=== PATIENT | female | born 1950 | race Caucasian/White ===

== ENCOUNTER → 2025-04-30 | Outpatient (REF) | payer MEDICARE, MEDICAID, SELFPAY ==
[2025-04-30 08:06] LABS: Hematocrit 29.5 % (37-47); Hemoglobin 9.5 g/dL (12.0-15.0); Mean Corp Hgb Conc 32.2 g/dL (32-36); Mean Corpuscular Volume 92.5 fL (81-99); Mean Platelet Vol. 9.6 fl (6.2-12.0); Platelet Count 245 K/mm3 (150-450); RBC Distribution Width CV 13.4 % (11.6-14.6); RBC Distribution Width SD 45.8 fl (35.1-43.9); Red Blood Count 3.19 M/mm3 (4.2-5.4); White Blood Count 6.4 K/mm3 (4.4-11.0)
[2025-04-30 08:45] LABS: AST(SGOT) 31 U/L (<=31); Alanine Aminotransfer ALT/SGPT 36 U/L (<=34); Albumin, Serum 3.2 g/dL (3.4-4.8); Alkaline Phosphatase 79 U/L (35-104); Anion Gap 9 (5-15); BUN 17 mg/dL (4-19); BUN/Creat Ratio 21.2 RATIO (10-20); Calcium,Total 9.0 mg/dL (7.6-11.0); Carbon Dioxide 24.2 mmol/L (21.0-32.0); Chloride 105 mmol/L (98-108); Globulin 2.5 g/dL (2.2-4.2); Glucose 90 mg/dL (70-99); Potassium 3.9 mmol/L (3.3-5.1)
== END ==
LOC: OLS.SANC 05:30
PROVIDERS: Visit Provider Internal Medicine
DX: J44.9 Chronic obstructive pulmonary disease, unspecified (principal); I10 Essential (primary) hypertension; E78.5 Hyperlipidemia, unspecified; E03.9 Hypothyroidism, unspecified
CPT/HCPCS: 36415; 80053; 84443; 85027

== ENCOUNTER → 2025-05-07 05:00 | Outpatient (REF) | payer MEDICARE, MEDICAID, SELFPAY ==
--- OUTSIDE RECORDS SUMMARY | 2025-05-07 04:28 | XMS RPT_ITS | CCD ---
Author Organization [facility] Care Team Providers Care Typewriter Aligner Name Role Phone ElbertRaffy Saleh Attending Unavailable Results Test Name Value Interpretation Reference Range Facil ity CBC-Complete Blood Cnt No Di ffon 04-30-2025 Erythrocyte distribution width (RBC) [Ratio] 13.4 % Normal 11.6-14.6 [facility] Comment on above: Order Comment: 310-1 Performed By: #### L 500.4050, L501.9520, L100.0500 #### [facility] [address] [place], [address] Hematocrit (Bld) [Volume fraction] 29.5 % Low 37-47 [facility] Comment on above: Order Comment: 310-1 Performed By: #### L 500.4050, L501.9520, L100.0500 #### [facility] [address] [place], [address] Hemoglobin (Bld) [Mass/Vol] 9.5 g/dL Low 12.0-15.0 [facility] Comment on above: Order Comment: 310-1 Performed By: #### L 500.4050, L501.9520, L100.0500 #### [facility] [address] [place], [address] MCH (RBC) [Entitic mass] 29.8 pg Normal 27.0-32.0 [facility] Comment on above: Order Comment: 310-1 Performed By: #### L 500.4050, L501.9520, L100.0500 #### [facility] [address] [place], [address] MCHC (RBC) [Mass/Vol] 32.2 g/dL Normal 32-36 [facility] Comment on above: Order Comment: 310-1 Performed By: #### L 500.4050, L501.9520, L100.0500 #### [facility] [address] [place], [address] MCV (RBC) [Entitic vol] 92.5 fL Normal 81-99 [facility] Comment on above: Order Comment: 310-1 Performed By: #### L 500.4050, L501.9520, L100.0500 #### [facility] [address] [place], [address] Platelet mean volume (Bld) [Entitic vol] 9.6 fL Normal 6.2-12.0 [facility] Comment on above: Order Comment: 310-1 Performed By: #### L 500.4050, L501.9520, L100.0500 #### [facility] [address] [place], [address] Platelets (Bld) [#/Vol] 245 10*3/uL Normal 150-450 [facility] Comment on above: Order Comment: 310-1 Performed By: #### L 500.4050, L501.9520, L100.0500 #### [facility] [address] [place], [address] RBC (Bld) [#/Vol] 3.19 10*6/uL Low 4.2-5.4 [facility] Comment on above: Order Comment: 310-1 Performed By: #### L 500.4050, L501.9520, L100.0500 #### [facility] [address] [place], [address] RDW SD 45.8 fl High 35.1-43.9 [facility] Comment on above: Order Comment: 310-1 Performed By: #### L 500.4050, L501.9520, L100.0500 #### [facility] [address] [place], [address] WBC (Bld) [#/Vol] 6.4 10*3/uL Normal 4.4-11.0 [facility] Comment on above: Order Comment: 310-1 Performed By: #### L 500.4050, L501.9520, L100.0500 #### [facility] [address] [place], [address] Comprehensive Metabolic Prof ilon 04-30-2025 Albumin [Mass/Vol] 3.2 g/dL Low 3.4-4.8 [facility] Comment on above: Order Comment: 310-1 Performed By: #### L 500.4050, L501.9520, L100.0500 #### [facility] [address] [place], [address] Albumin/Globulin [Mass ratio] 1.3 {ratio} Normal 0.9-2.4 [facility] Comment on above: Order Comment: 310-1 Performed By: #### L 500.4050, L501.9520, L100.0500 #### [facility] [address] [place], [address] ALK PHOS 79 U/L Normal 35-104 [facility] Comment on above: Order Comment: 310-1 Performed By: #### L 500.4050, L501.9520, L100.0500 #### [facility] [address] [place], [address] ALT [Catalytic activity/Vol] 36 U/L High <=34 [facility] Comment on above: Order Comment: 310-1 Performed By: #### L 500.4050, L501.9520, L100.0500 #### [facility] [address] [place], [address] AST [Catalytic activity/Vol] 31 U/L Normal <=31 [facility] Comment on above: Order Comment: 310-1 Performed By: #### L 500.4050, L501.9520, L100.0500 #### [facility] [address] [place], [address] Bilirubin [Mass/Vol] 0.68 mg/dL Normal 0.00-1.30 [facility] Comment on above: Order Comment: 310-1 Performed By: #### L 500.4050, L501.9520, L100.0500 #### [facility] [address] [place], [address] BUN/CRE 21.2 RATIO High 10-20 [facility] Comment on above: Order Comment: 310-1 Performed By: #### L 500.4050, L501.9520, L100.0500 #### [facility] [address] [place], [address] Calcium [Mass/Vol] 9.0 mg/dL Normal 7.6-11.0 [facility] Comment on above: Order Comment: 310-1 Performed By: #### L 500.4050, L501.9520, L100.0500 #### [facility] [address] [place], [address] Chloride [Moles/Vol] 105 mmol/L Normal 98-108 [facility] Comment on above: Order Comment: 310-1 Performed By: #### L 500.4050, L501.9520, L100.0500 #### [facility] [address] [place], [address] CO2 [Moles/Vol] 24.2 mmol/L Normal 21.0-32.0 [facility] Comment on above: Order Comment: 310-1 Performed By: #### L 500.4050, L501.9520, L100.0500 #### [facility] [address] [place], [address] Creatinine [Mass/Vol] 0.79 mg/dL Normal 0.70-1.20 [facility] Comment on above: Order Comment: 310-1 Performed By: #### L 500.4050, L501.9520, L100.0500 #### [facility] [address] [place], [address] GAP 9 Normal 5-15 [facility] Comment on above: Order Comment: 310-1 Performed By: #### L 500.4050, L501.9520, L100.0500 #### [facility] [address] [place], [address] GFR/1.73 sq M.predicted among non-blacks MDRD (S/P/Bld) [Vol rate/Area] 79 mL/min/{1.73_m2} Normal >60 [facility] Comment on above: Order Comment: 310-1 Result Comment: mL/m in/1.73m2 CKD-EPI Creatinine Equation (2020) Performed By: #### L 500.4050, L501.9520, L100.0500 #### [facility] [address] [place], [address] Globulin (S) [Mass/Vol] 2.5 g/dL Normal 2.2-4.2 [facility] Comment on above: Order Comment: 310-1 Performed By: #### L 500.4050, L501.9520, L100.0500 #### [facility] [address] [place], [address] Glucose [Mass/Vol] 90 mg/dL Normal 70-99 [facility] Comment on above: Order Comment: 310-1 Performed By: #### L 500.4050, L501.9520, L100.0500 #### [facility] [address] [place], [address] Potassium [Moles/Vol] 3.9 mmol/L Normal 3.3-5.1 [facility] Comment on above: Order Comment: 310-1 Performed By: #### L 500.4050, [id number], L100.0500 #### [facility] [address] [place], [address] Sodium [Moles/Vol] 138 mmol/L Normal 133-145 [facility] Comment on above: Order Comment: 310-1 Performed By: #### L 500.4050, L501.9520, L100.0500 #### [facility] [address] [place], [address] T PROT 5.7 g/dL Low 5.9-8.4 [facility] Comment on above: Order Comment: 310-1 Performed By: #### L 500.4050, L501.9520, L100.0500 #### [facility] [address] [place], [address] Urea nitrogen [Mass/Vol] 17 mg/dL Normal 4-19 [facility] Comment on above: Order Comment: 310-1 Performed By: #### L 500.4050, L501.9520, L100.0500 #### [facility] [address] [place], [address] Thyroid Stim Hormone (TSH)on 04-30-2025 TSH 4.650 uIU/mL High 0.300-4.200 [facility] Comment on above: Order Comment: 310-1 Performed By: #### L 500.4050, L501.9520, L100.0500 #### [facility] [address] [place], [address] Encounters Encounter Date Encounter Type Care Provider Facility Start: 04-30-2025 ambulatory [facility]ity:[facility] Payers Date Payer Category Payer Self-pay Summary Purpose Family History No Family History Records Found Advance Directives No Advanced Directives Records Found Additional Source Comments INFORMATION SOURCE (unrecogn ized section and content) DATE CREATED AUTHOR 05/01/2025 [facility] FOR RECORDS PERTAINING TO PATIENTS WHO ARE OR HAVE BEEN ENROLLED IN A CHEMICAL DEPENDENCY/SUBSTANCEABUSE PROGRAM, SOME INFORMATION MAY BE OMITTED. This clinical summary was aggregated from multiple sources. Caution should be exercised in using it in the provision of clinical care. This summary normalizes information from multiple sources, and as a consequence, information in this document may materially change the coding, format and clinical context of patient data. In addition, data may be omitted in some cases. CLINICAL DECISIONS SHOULD BE BASED ON THE PRIMARY CLINICAL RECORDS. [facility]. provides no warranty or guarantee of the accuracy or completeness of information in this document.
[2025-05-07 07:43] LABS: Hematocrit 31.5 % (37-47); Hemoglobin 10.1 g/dL (12.0-15.0); Mean Corp Hgb Conc 32.1 g/dL (32-36); Mean Corpuscular Volume 92.9 fL (81-99); Mean Platelet Vol. 9.4 fl (6.2-12.0); Platelet Count 271 K/mm3 (150-450); RBC Distribution Width CV 14.2 % (11.6-14.6); RBC Distribution Width SD 47.8 fl (35.1-43.9); Red Blood Count 3.39 M/mm3 (4.2-5.4); White Blood Count 5.9 K/mm3 (4.4-11.0)
[2025-05-07 08:15] LABS: Anion Gap 12 (5-15); BUN 15 mg/dL (4-19); BUN/Creat Ratio 17.5 RATIO (10-20); Calcium,Total 9.2 mg/dL (7.6-11.0); Carbon Dioxide 21.8 mmol/L (21.0-32.0); Chloride 106 mmol/L (98-108); Glucose 85 mg/dL (70-99); Potassium 4.1 mmol/L (3.3-5.1)
== END ==
LOC: OLS.SANC 05:00
PROVIDERS: Visit Provider Internal Medicine
DX: I10 Essential (primary) hypertension (principal)
CPT/HCPCS: 36415; 80048; 85027

== ENCOUNTER → 2025-06-19 05:00 | Outpatient (REF) | payer MEDICARE, MEDICAID, SELFPAY ==
[2025-06-19 09:34] LABS: Hematocrit 37.2 % (37-47); Hemoglobin 12.1 g/dL (12.0-15.0); Mean Corp Hgb Conc 32.5 g/dL (32-36); Mean Corpuscular Volume 90.1 fL (81-99); Mean Platelet Vol. 9.6 fl (6.2-12.0); Platelet Count 175 K/mm3 (150-450); RBC Distribution Width CV 13.8 % (11.6-14.6); RBC Distribution Width SD 45.3 fl (35.1-43.9); Red Blood Count 4.13 M/mm3 (4.2-5.4); White Blood Count 5.4 K/mm3 (4.4-11.0)
[2025-06-19 09:47] LABS: Anion Gap 9 (5-15); BUN 15 mg/dL (4-19); BUN/Creat Ratio 21.7 RATIO (10-20); Calcium,Total 9.0 mg/dL (7.6-11.0); Carbon Dioxide 23.8 mmol/L (21.0-32.0); Chloride 107 mmol/L (98-108); Glucose 87 mg/dL (70-99); Potassium 4.0 mmol/L (3.3-5.1)
== END ==
LOC: OLS.SANC 05:00
PROVIDERS: Visit Provider Internal Medicine
DX: N18.30 Chronic kidney disease, stage 3 unspecified (principal); I12.9 Hypertensive chronic kidney disease with stage 1 through stage 4 chronic kidney disease, or unspecified chronic kidney disease; E78.5 Hyperlipidemia, unspecified
CPT/HCPCS: 36415; 80048; 85027

== ENCOUNTER → 2025-07-28 05:00 | Outpatient (REF) | payer MEDICARE, MEDICAID, SELFPAY ==
--- OUTSIDE RECORDS SUMMARY | 2025-07-28 03:50 | XMS RPT_ITS | CCD ---
Author Organization [facility] Inform ion Partnership [facility] Care Team Providers Care Medical Receptionist Assistant Name Role Phone Kenia Mckenzie Primary Care Provider Farhana Schmitt MD, Alyce Unavailable Danny Laura MD Primary Care Provider Jono WATER SYSTEMS DESIGNER.HEAD USHER, Danny Siddiqui Unavailable Holly ALVES, Soco Luis E Unavailable Unavailable Farhana Schmitt MD, Alyce Unavailable Danny Laura MD Primary Care Provider Jono WATER SYSTEMS DESIGNER.HEAD USHER, Danny Chen Unavailable Jono WATER SYSTEMS DESIGNER.BEATA, Danny Chen Unavailable Johnny Amaya Primary Care Provider Farhana Schmitt MD Alyce Unavailable Jono WATER SYSTEMS DESIGNER.BEATA, Danny Chen Unavailable Johnny Amaya Primary Care Provider Kenia Mckenzie MD Primary Care Provider Kenia Mckenzie MD Primary Care Provider Farhana Schmitt MD, Alyce Unavailable Ashu Ricci Primary Care Provider Unavailable Primary Care Provider UnavailAshu Falcon CNP Primary Care Provider Delfina LAZAR, Michell Unavailable Unspecified, Cardiac Surgeon - Unavailable U kian Zelaya MD, Jorge Saldaña Unavailable Keiry WATER SYSTEMS DESIGNER.HEAD USHER, Ashu Primary Care Provider Murphy LAZAR Kendy Unavailable Matt LYCNH, Sandra Unavailable [phone] DELFINA, XIAOYING Referring Unavailable KEIRY, ASHU Primary Care Unavailable KEIRY, ASHU Primary Care Unavailable DELFINA, XIAOYING Referring Unavailable KEIRY, ASHU Primary Care Unavailable DELFINA, XIAOYING Attending Unavailable DELFINA, XIAOYING Referring Unavailable KEIRY, ASHU Primary Care Unavailable DELFINA, XIAOYING Referring Unavailable KEIRY, ASHU Primary Care Unavailable DELFINA, XIAOYING Referring Unavailable DELFINA, XIAOYING Referring Unavailable JORGE ZEALYA Attending Unavailable KEIRY, ASHU Primary Care Unavailable DELFINA, XIAOYING Referring Unavailable KEIRY, ASHU Primary Care Unavailable DELFINA, XIAOYING Referring Unavailable KEIRY, ASHU Primary Care Unavailable ARELY HERCULES Attending Unavailable KEIRY, ASHU Primary Care Unavailable ARELY HERCULES Attending Unavailable KEIRY, ASHU Primary Care Unavailable DELFINA, XIAOYING Attending Unavailable DELFINA, XIAOYING Referring Unavailable KEIRY, ASHU Primary Care Unavailable DRAKE, STACY Attending Unavailable DRAKE, STACY Referring Unavailable NIKO CAUSEY Consulting Unavailab JACEK Darby Admitting Unavailable LATOYA POLANCO Attending Unavailable CRYSTAL MARIE Consulting Unavailable Raffy Eason Attending Physician UnavailRaffy Acosta Attending Unavailable Raffy Eason Attending Unavailable Raffy Eason Attending Unavailable Allergies Allergy Classification Reported Allergen(s) Allergy Type Date of Onset Reaction(s) Facility cow milk allergenic extract (1 source) cow milk allergenic extract Drug Allergy 2 Other: See Comments [facility] Sulfonamides (antibiotic) (2 sources) Sulfonamides (Antibiotic) Drug Allergy 8 Itching, Swelling [facility] (20 sources) Seasonal allergy; Translations: [SEASONAL ALLERGIES] Allergy to substance 8 Intolerance [facility] (20 sources) Sulfonamides (Antibiotic); Translations: [SULFA (SULFONAMIDE ANTIBIOTICS)] Drug Allergy 8 Itching [facility] (20 sources) sulfADIAZINE; Translations: [SULFADIAZINE] Drug Allergy 0 Swelling, Other: See Comments [facility] (20 sources) Sulfonamides (Antibiotic) Drug Allergy 8 Itching, Swelling [facility] (18 sources) Cow milk Propensity to adverse reactions [address] [facility] (15 sources) cow milk allergenic extract; Translations: [MILK] Drug Allergy 2 Other: See Comments [facility] Medications Current Medications Medication Drug Class(es) Dates Sig (Normalized) Sig (Original) acetaminophen 325 mg oral tablet (20 sources) Start: 04-23-2025 End: 05-03-2025 take 2 tablets by mouth every six hours as needed for pain and fever acetaminophen (Tylenol) 325 MG tablet Take 2 tablets (650 mg) by mouth every 6 hours as needed for mild pain (1-3) or fever (For temp greater than 100.4 F (38 C)) for up to 10 days. 04/23/2025 05/03/2025 Active Start: 04-20-2025 End: 04-23-2025 take 1 tablet by mouth every six hours as needed for pain and fever acetaminophen (Tylenol) tablet 650 mg Start: 04-19-2025 End: 04-19-2025 1,000 mg, Oral, Once, On 04/19/25 at 1600, For 1 dose, Maximum dose of acetaminophen is 4000 mg from all sources in 24 hours. Start: 08-17-2023 End: 03-21-2024 acetaminophen (TYLENOL) 325 mg tablet Start: 03-02-2023 End: 03-10-2023 take 1 tablet by mouth every six hours 650 mg, Oral, Every 6 hours, First dose on Buffy 03/02/23 at 1545, Phase II/On Unit Start: 03-02-2023 End: 03-02-2023 acetaminophen (Tylenol) tabl et 1,000 mg Start: 03-18-2020 take 1 tablet by kiki th every twelve hours as needed acetaminophen (TYLENOL) 500 mg tablet Take 1 tablet by mouth twice daily as needed for Pain. Please put in a separate bottle thanks 10 tablet 0 03/18/2020 Active Comment on above: Take 1 tablet by kiki th twice daily as needed for Pain. Please put in a separate bottle thanks amoxicillin 875 mg / clavulanate 125 mg oral tablet (4 sources) Penicillin-class Antibacterial Start: 024 End: take 1 tablet by mouth every twelve hours amoxicillin-clavulanat e (Augmentin) 875-125 MG tablet Take 1 tablet by mouth in the morning and 1 tablet in the evening. Do all this for 7 days. 14 tablet 0 12/17/2023 12/24/2023 Active cephalexin 500 mg oral capsule (4 sources) Cephalosporin Antibacterial Start: 023 End: cephalexin (Keflex) 500 MG capsule Take 1 capsule (500 mg) by mouth in the morning and 1 capsule (500 mg) at noon and 1 capsule (500 mg) in the evening and 1 capsule (500 mg) before bedtime. Do all this for 7 days. 28 capsule 0 05/25/2023 06/01/2023 Active cholecalciferol 0.05 mg oral tablet (20 sources) Vitamin D Start: take 1 tablet by mouth once daily cholecalciferol (VITAMIN D3) 50 mcg (2,000 unit) tablet Take 2,000 Units by mouth once daily. 08/28/2023 Active take 1 tablet by mouth once ramiro y cholecalciferol (Vitamin D-3) 125 MCG (5000 UT) tablet Take 2,000 Units by mouth daily. Active take 1 tablet by mouth once ramiro y cholecalciferol (Vitamin D-3) 125 MCG (5000 UT) tablet Take 5,000 Units by mouth daily. 0 Active 12 hr dextromethorphan polistirex 6 mg/ml extended release suspension (15 sources) Uncompetitive G-orrovg-G-aspartate Receptor Antagonist, Sigma-1 Agonist Start: 08-24-2023 DELSYM 30 mg/5 mL oral liquid Take 30 mg by mouth as needed. 08/24/2023 Active Start: 08-24-2023 DELSYM 30 mg/5 mL oral liquid 0.4 ml enoxaparin sodium 100 mg/ml prefilled syringe (6 sources) Low Molecular Weight Heparin Start: 04-24-2025 End: 05-15-2025 inject 0.4 mL by subcutaneous injection every twenty-four hours enoxaparin (Lovenox) 40 MG/0.4ML solution prefilled syringe Indications: Prophylaxis of Venous Thromboembolism Inject 0.4 mL (40 mg) under the skin every 24 hours for 21 doses. 04/24/2025 05/15/2025 Active Start: 04-22-2025 End: 04-23-2025 inject 40 mg by subcutaneous injection every twenty-four hours 40 mg, SubCUTAneous, Every 24 hours scheduled (Daily), First dose on Mon04/22/25 at 1215, For 28 doses, Indication of Use: Post Op Hip, Indications: Prophylaxis of Venous Thromboembolism Start: 03-05-2023 End: 03-10-2023 enoxaparin (Lovenox) syringe 40 mg famotidine 20 mg oral tablet (20 sources) Histamine-2 Receptor Antagonist Start: 06-08-2023 famotidine (PEPCID) 20 mg tablet Take 20 mg by mouth as needed. 06/08/2023 Active Start: 03-02-2023 End: 03-02-2023 famotidine (Pepcid) tablet 2 0 mg 30 actuat fluticasone furoate 0.1 mg/actuat / vilanterol 0.025 mg/actuat dry powder inhaler (20 sources) Corticosteroid, beta2-Adrenergic Agonist Start: 11-05-2022 take 1 puff(s) by inhalation once daily Breo Ellipta 100-25 MCG/ACT aerosol powder Inhale 1 puff daily. 11/05/2022 Active Start: 11-05-2022 Breo Ellipta 1 00-25 MCG/ACT aerosol powder Start: 03-17-2022 take 1 puff(s) by mo uth once daily fluticasone-vilanterol (BREO ELLIPTA) 100-25 mcg/dose inhaler Indications: Shortness of breath Inhale 1 puff BY MOUTH INTO THE LUNGS EVERY DAY 28 Each 3 03/17/2022 Active Start: 12-03-2021 End: 03-17-2022 take 1 puff(s) by mouth once daily BREO ELLIPTA 100-25 mcg/dose inhaler Indications: Shortness of breath INHALE ONE PUFF BY MOUTH EVERY DAY 60 Each 3 12/03/2021 03/17/2022 Discontinued Start: 11-02-2021 End: 12-03-2021 fluticasone-vilanterol (BREO ELLIPTA) 100-25 mcg/dose inhaler Indications: Shortness of breath Inhale 1 Inhalation as instructed once daily. 60 Each 0 11/02/2021 12/03/2021 Discontinued Start: 08-13-2019 fluticasone-vi lanterol (BREO ELLIPTA) 100-25 mcg/dose inhaler Inhale 1 Inhalation as instructed once daily. 60 Each 0 08/13/2019 Active Comment on above: Inhale 1 Inhalation as instructed once daily. INHALE ONE PUFF BY M OUTH EVERY DAY Inhale 1 puff BY KIKI TH INTO THE LUNGS EVERY DAY 12 hr guaiFENesin 600 mg extended release oral tablet (15 sources) Start: 08-24-2023 take 1 tablet by mouth once daily as needed MUCINEX 600 mg 12 hr tablet Take 600 mg by mouth once daily. As needed 08/24/2023 Active Start: 08-24-2023 MUCINEX 600 mg 12 hr tablet HIGH POTENCY MULTIVITAMIN 400 mcg (15 sources) Start: 09-11-2023 take 1 tablet by mouth once daily HIGH POTENCY MULTIVITAMIN 400 mcg Take 1 tablet by mouth once daily. 09/11/2023 Active Start: 09-11-2023 take 1 tablet by kiki th once daily HIGH POTENCY MULTIVITAMIN 400 mcg Take 1 tablet by mouth once daily. 0 09/11/2023 Active Start: 09-11-2023 HIGH POTENCY M ULTIVITAMIN 400 mcg iv contrast (will be provided with radiology test) (1 source) Start: 03-21-2024 End: 03-22-2024 inject 1 dose intravenously once iv contrast (will be provided with radiology test) CTA Chest. No IV access, insert saline lock prior to the sedation, infusion, injection for imaging exam. Discontinue saline lock post exam. If Pt. has a central line or IVAD, may access for administration according to line specific nursing protocol. Once exam is complete flush line and de-access according to line specific nursing protocol in the CT contrast administration guidelines link. 1 Each 0 03/21/2024 03/22/2024 Active loratadine 10 mg oral tablet (20 sources) Start: 10-01-2023 take 1 tablet by kiki th once daily loratadine (CLARITIN) 10 mg tablet Take 10 mg by mouth once daily. 10/01/2023 Active take 1 capsule by mouth once milan ly Loratadine 10 MG capsule Take 10 mg by mouth daily. Active take 1 tablet by mouth once ramiro y loratadine (CLARITIN ORAL) Take 1 tablet by mouth once daily. 0 Active loratadine (CLAR ITIN ORAL) Take by mouth. 0 Active Comment on above: Take by mouth. Take 1 tablet by kiki th once daily. 24 hr loratadine 10 mg / pseudoephedrine sulfate 240 mg extended release oral tablet (5 sources) alpha-Adrenergic Agonist take 10-240 mg by mouth every twenty-four hours loratadine-pseudo ephedrine ER (Claritin-D 24-hour) 10-240 MG 24 hr tablet Take 1 tablet by mouth daily. Do not crush, chew, or split. 0 Active Multiple Vitamin (High Potency Multivitamin) tablet (20 sources) Start: 09-27-2022 take 1 tablet by mouth once daily Multiple Vitamin (High Potency Multivitamin) tablet Take 1 tablet by mouth daily. 09/27/2022 Active Start: 09-27-2022 take 1 tablet by kiki th once daily Multiple Vitamin (High Potency Multivitamin) tablet Take 1 tablet by mouth daily. 0 09/27/2022 Active Start: 09-27-2022 Multiple Vitam in (High Potency Multivitamin) tablet nystatin 100 unt/mg topical powder (20 sources) Polyene Antifungal Start: 08-22-2023 nystatin (M YCOSTATIN) powder Apply to affected area as needed. 08/22/2023 Active Start: 08-22-2023 nystatin (MYCO STATIN) powder Start: 03-02-2023 End: 03-10-2023 apply 1 dose topically twice daily Topical, 2 times daily, First dose on Buffy 03/02/23 at 2100, Phase II/On Unit nystatin (Mycost atin) [id number] UNIT/GM powder Apply 1 Application topically 2 times daily. Under breasts Active omeprazole 20 mg delayed release oral tablet (20 sources) Proton Pump Inhibitor Start: 04-26-2023 Omeprazole 20 MG tablet delayed-release 04/26/2023 Active oxyCODONE hydrochloride 5 mg oral tablet (8 sources) Opioid Agonist Start: 04-19-2025 End: 04-26-2025 take 1 tablet by mouth every six hours as needed for pain oxyCODONE (Roxicodone) 5 MG immediate release tablet Indications: Closed displaced intertrochanteric fracture of right femur, initial encounter ([facility]) Take 1 tablet (5 mg) by mouth every 6 hours as needed for moderate pain (4-6) or severe pain (7-10) for up to 3 days. 12 tablet 04/23/2025 04/26/2025 Active Start: 03-06-2023 End: 03-09-2023 take 1 tablet by mouth every four hours as needed for pain oxyCODONE (Roxicodone) 5 MG immediate release tablet Indications: Cervical stenosis of spinal canal Take 1 tablet (5 mg) by mouth every 4 hours as needed for moderate pain (4-6) for up to 5 days. 15 tablet 0 03/06/2023 03/09/2023 Discontinued (Stop taking at discharge) Start: 03-02-2023 End: 03-10-2023 take 1 tablet by mouth every four hours as needed for pain oxyCODONE (Roxicodone) immediate release tablet 5 mg 0.25 ml paliperidone palmitate 156 mg/ml prefilled syringe (20 sources) Atypical Antipsychotic Start: 09-23-2022 Invega Sustenna 39 MG/0.25ML suspension prefilled syringe Inject 39 mg into the shoulder, thigh, or buttocks every 30 (thirty) days. 09/23/2022 Active Start: 09-23-2022 Invega Sustenn a 39 MG/0.25ML suspension prefilled syringe Start: 01-06-2022 End: 04-11-2022 paliperidone palmitate (INVE GA SUSTENNA) 39 mg/0.25 mL syrg injection INJECT 0.25 ML into THE MUSCLE EVERY FOUR WEEKS 0.25 mL 1 04/11/2022 Active Start: 01-06-2022 End: 02-15-2022 paliperidone palmitate (INVE GA SUSTENNA) 78 mg/0.5 mL syrg injection Stop this dose 0.1 mL 0 01/06/2022 02/15/2022 Discontinued Start: 11-04-2021 End: 01-06-2022 paliperidone palmitate (INVE GA SUSTENNA) 78 mg/0.5 mL syrg injection INJECT 78 MG IN 0.5 mls every FOUR WEEKS 0.5 mL 2 11/04/2021 01/06/2022 Discontinued Start: 07-17-2020 End: 08-16-2020 paliperidone palmitate (INVE GA SUSTENNA) 78 mg/0.5 mL syrg Inject 0.5 mL intramuscularly every 4 weeks. Due First week of August 15 to 08/07 2020 Thanks 0.5 mL 1 07/17/2020 08/16/2020 Active Start: 03-31-2020 End: 06-21-2020 paliperidone palmitate (INVE GA SUSTENNA) 78 mg/0.5 mL syrg Inject 0.5 mL intramuscularly every 4 weeks. Due 02/03/20 0.5 mL 0 05/22/2020 Active Comment on above: Inject 0.5 mL intram uscularly every 4 weeks. Due 02/03/20 Inject 0.5 mL intram uscularly every 4 weeks. Due First week of August 15 to 08/07 2020 Thanks INJECT 78 MG IN 0.5 mls every FOUR WEEKS 1 injection every 4 weeks Stop this dose INJECT 0.25 ML into THE MUSCLE EVERY FOUR WEEKS polyethylene glycol 3350 12629 mg powder for oral solution (6 sources) Osmotic Laxative Start: 04-20-20 End: 04-28-20 take 17 g by mouth every twenty-four hours as needed polyethylene glycol, PEG, 3350 (Miralax) 17 g packet Take 17 g by mouth Daily as needed (constipation) for up to 5 days. 04/23/2025 04/28/2025 Active Start: 03-02-2023 End: 03-10-2023 17 g, Oral, Daily, First dos e on Buffy 03/02/23 at 1545, Phase II/On Unit Bowel Regimen - for prevention of constipation. Completed/Discontinued Medications Medication Drug Class(es) Dates Sig (Normalized) Sig (Original) [id number] 200 actuat albuterol 0.09 mg/actuat metered dose inhaler (20 sources) beta2-Adrenergic Agonist Start: 03-02-2023 End: 03-10-2023 take 2 puff(s) by inhalation every four hours as needed for wheezing 2 puff, Inhalation, Every 4 hours PRN, wheezing, Starting on Buffy 03/02/23 at 1544, Phase II/On Unit Start: 02-22-2022 take 2 puff(s) by mo uth every four hours as needed for wheezing albuterol 108 (90 Base) MCG/ACT inhaler INHALE TWO PUFFS BY MOUTH INTO THE LUNGS instructed EVERY 4 HOURS NEEDED FOR WHEEZING OR FOR SHORTNESS OF BREATH 02/22/2022 Active Start: 02-10-2022 take 2 puff(s) by mo uth every four hours as needed for wheezing albuterol HFA (PROVENTIL HFA, VENTOLIN HFA) 90 mcg/actuation inhaler Indications: Mild intermittent asthma without complication (HCC) INHALE TWO PUFFS BY MOUTH INTO THE LUNGS instructed EVERY 4 HOURS NEEDED FOR WHEEZING OR FOR SHORTNESS OF BREATH 18 g 3 02/10/2022 Active Start: 11-11-2021 End: 02-10-2022 take 2 puff(s) by inhalation every four hours as needed for wheezing albuterol HFA (PROAIR HFA) 90 mcg/actuation inhaler Indications: Mild intermittent asthma without complication Inhale 2 Puffs as instructed every 4 hours as needed for wheezing/shortness of breath. 2 Inhaler 3 11/11/2021 02/10/2022 Discontinued Start: 08-12-2019 take 2 puff(s) by in halation every four hours as needed for wheezing albuterol HFA (VENTOLIN HFA) 90 mcg/actuation inhaler Inhale 2 Puffs as instructed every 4 hours as needed for Wheezing/Shortness of Breath. 2 Inhaler 0 08/12/2019 Active Comment on above: Inhale 2 Puffs as in structed every 4 hours as needed for Wheezing/Shortness of Breath. INHALE TWO PUFFS BY MOUTH INTO THE LUNGS instructed EVERY 4 HOURS NEEDED FOR WHEEZING OR FOR SHORTNESS OF BREATH albuterol 0.833 mg/ml / ipratropium bromide 0.167 mg/ml inhalation solution (2 sources) Anticholinergic, beta2-Adrenergic Agonist Start: 04-21-20 End: 04-21-20 3 mL, Nebulization, Once, On Mon04/21/25 at 1545, For 1 dose, Recovery (only) amLODIPine 2.5 mg oral tablet (20 sources) Dihydropyridine Calcium Channel Elena Start: 02-28-20 take 1 tablet by mouth once daily amLODIPine (NORVASC) 5 mg tablet Take 5 mg by mouth once daily. 02/28/2024 Active Start: 03-08-2023 End: 03-10-2023 amLODIPine (Norvasc) tablet 10 mg Start: 03-07-2023 End: 03-07-2023 amLODIPine (Norvasc) tablet 5 mg Start: 03-07-2023 End: 03-07-2023 amLODIPine (Norvasc) tablet 5 mg Start: 03-02-2023 End: 03-06-2023 take 2.5 mg by mouth once daily 2.5 mg, Oral, Daily, F irst dose on Buffy 03/02/23 at 1545, Phase II/On Unit Start: 10-31-2021 End: 04-23-2025 take 1 tablet by mouth once daily amLODIPine (Norvasc) 2.5 MG tablet Take 2.5 mg by mouth daily. 09/27/2022 Active Start: 09-09-2019 take 1 tablet by kiki th once daily amLODIPine (NORVASC) 5 mg tablet Take 1 tablet by mouth once daily. 30 tablet 2 09/09/2019 Active Comment on above: Take 1 tablet by kiki th once daily. TAKE ONE TABLET BY M OUTH EVERY DAY ARIPiprazole 5 mg oral tablet (20 sources) Atypical Antipsychotic Start: 03-02-2023 End: 03-10-2023 take 5 mg by mouth once daily 5 mg, Oral, Daily, First dose on Buffy 03/02/23 at 1545, Phase II/On Unit Start: 11-03-2022 End: 04-23-2025 take 1 tablet by mouth once daily ARIPiprazole (Abilify) 5 MG tablet Take 5 mg by mouth daily. 11/03/2022 Active Start: 10-08-2021 End: 04-11-2022 take 1 tablet by mouth once daily ARIPiprazole (ABILIFY) 5 mg tablet Take 1 tablet by mouth once daily. 30 tablet 2 04/11/2022 Active Start: 04-30-2020 take 1 tablet by kiki th once daily ARIPiprazole (ABILIFY) 5 mg tablet Take 1 tablet by mouth once daily. 30 tablet 2 04/30/2020 Active Start: 03-31-2020 End: 04-30-2020 take 1 tablet by mouth once daily ARIPiprazole (ABILIFY) 2 mg tablet Take 1 tablet by mouth once daily. 30 tablet 1 03/31/2020 04/30/2020 Discontinued Comment on above: Take 1 tablet by kiki th once daily. TAKE ONE TABLET BY M OUTH EVERY DAY Aspirin (14 sources) Platelet Aggregation Inhibitor, Nonsteroidal Anti-inflammatory Drug aspirin (ASPIR-81 OR AL) Take by mouth. 0 Active take 1 tablet by mouth once ramiro y aspirin (ASPIRIN CHILDRENS) 81 mg chewable tablet Take 81 mg by mouth once daily. 0 Active Comment on above: Take 81 mg by mouth once daily. Take by mouth. barium sulfate (E-Z-Paque) 96 % suspension 30 mL (2 sources) Start: 05-31-20 End: 05-31-20 barium sulfate (E-Z-Paque) 96 % suspension 30 mL bisacodyl 10 mg rectal suppository (4 sources) Stimulant Laxative Start: 03-02-20 End: 03-10-20 take 10 mg rectal route every twenty-four hours as needed for constipation 10 mg, Rectal, Daily PRN, constipation, Starting on Buffy 03/02/23 at 1544, Phase II/On Unit 2nd line for treatment of constipation - give scheduled (in addition to 1st line agent) if no bowel movement in past 48 hours Start: 03-02-2023 End: 03-10-2023 take 1 tablet by mouth every twenty-four hours as needed for constipation 5 mg, Oral, Daily PRN, constipation, Starting on Buffy 03/02/23 at 1544, Phase II/On Unit 1st line for treatment of constipation - give scheduled if no bowel movement in past 24 hours. Do not crush, chew, or split. 24 hr buPROPion hydrochloride 300 mg extended release oral tablet (20 sources) Aminoketone Start: 03-02-2023 End: 03-10-2023 take 150 mg by mouth once daily 150 mg, Oral, Daily, First dose on Buffy 03/02/23 at 1545, Phase II/On Unit Do not crush, chew, or split. Start: 11-03-2022 End: 04-23-2025 take 1 tablet by mouth once daily buPROPion XL (Wellbutrin XL) 300 MG 24 hr tablet Take 300 mg by mouth daily. 11/03/2022 Active Start: 11-03-2022 buPROPion XL ( Wellbutrin XL) 300 MG 24 hr tablet Start: 11-02-2021 End: 07-10-2022 take 1 tablet by mouth once daily buPROPion XL (WELLBUTRIN XL) 300 mg 24 hr tablet Indications: Bipolar 1 disorder, depressed, moderate (HCC) Take 1 tablet by mouth once daily. 30 tablet 2 04/11/2022 Active Start: 07-17-2020 End: 08-16-2020 take 1 tablet by mouth once daily buPROPion XL (WELLBUTRIN XL) 300 mg 24 hr tablet Take 1 tablet by mouth once daily. 30 tablet 1 07/17/2020 08/16/2020 Active Start: 03-31-2020 End: 05-30-2020 take 1 tablet by mouth once daily buPROPion XL (WELLBUTRIN XL) 300 mg 24 hr tablet Take 1 tablet by mouth once daily. 30 tablet 1 04/30/2020 Active Comment on above: Take 1 tablet by kiki th once daily. TAKE ONE TABLET BY M OUTH EVERY DAY calcium carbonate 1250 mg chewable tablet (2 sources) Start: 02-28-2024 End: 03-21-2024 take 1 tablet by mouth once daily calcium carbonate 500 mg calcium (1,250 mg) chewable tablet Take 1 tablet by mouth once daily. 0 02/28/2024 03/21/2024 Discontinued Start: 02-28-2024 calcium carbon ate 500 mg calcium (1,250 mg) chewable tablet calcium carbonate 1500 mg / cholecalciferol 0.01 mg oral tablet (20 sources) Vitamin D Start: 07-12-2023 End: 03-04-2024 calcium carbonate 600 mg-cholecalciferol 400 units 600 mg-10 mcg (400 unit) tab Start: 10-20-2022 Calcium + Gita min D3 600-10 MG-MCG tablet Take 1 tablet by mouth daily. 600/400 10/20/2022 Active Start: 10-20-2022 Calcium + Gita min D3 600-10 MG-MCG tablet Calcium Carbonate / vitamin D3 (20 sources) calcium carbonate/vitamin D3 (CALCIUM + D ORAL) Take by mouth once daily. 0 Active Comment on above: Take by mouth once d aily. calcium chloride 0.0014 meq/ml / potassium chloride 0.004 meq/ml / sodium chloride 0.103 meq/ml / sodium lactate 0.028 meq/ml injectable solution (2 sources) Start: 2022 End: 2022 lactated Ringer's (LR) infusion ceFAZolin 2000 mg injection (2 sources) Cephalosporin Antibacterial Start: 2022 End: 2022 take 2000 mg intravenously every eight hours 2,000 mg, IntraVENous, Administer over 30 Minutes, Every 8 hours, First dose on Buffy 03/02/23 at 1800, For 2 doses, Phase II/On Unit premix bag Suspected Indication (Select all that apply): Surgical Prophylaxis ceFAZolin (Ancef) 2,000 mg in sodium chloride 0.9 % 100 mL IVPB (2 sources) Start: 2024 End: 2024 take 2000 mg intravenously every eight hours 2,000 mg, IntraVENous, at 200 mL/hr, Administer over 30 Minutes, Every 8 hours, First dose on 04/21/25 at 2200, For 2 doses, Mini-Bag Plus bag, Suspected Indication (Select all that apply): Surgical Prophylaxis cetirizine hydrochloride 10 mg oral tablet (2 sources) Histamine-1 Receptor Antagonist Start: 2022 End: 2022 cetirizine (ZyrTEC) tablet 10 mg chlorhexidine gluconate 40 mg/ml medicated liquid soap (2 sources) Start: 2022 End: 2022 chlorhexidine (Hibiclens) 4 % external liquid Indications: Preop examination Apply topically 1 (one) time if needed (pre-op) for up to 1 dose. 118 mL 0 02/27/2023 03/10/2023 Discontinued (Stop taking at discharge) cholecalciferol, vitamin D3, (VITAMIN D3 ORAL) (20 sources) take 1 tablet by mouth once daily cholecalciferol, vitamin D3, (VITAMIN D3 ORAL) Take 1 tablet by mouth once daily. 0 Active cholecalciferol, vitamin D3, (VITAMIN D3 ORAL) Take by mouth. 0 Active Comment on above: Take by mouth. Take 1 tablet by kiki once daily. clonazePAM 0.5 mg oral tablet (20 sources) Benzodiazepine Start: 04-11-20 End: 03-21-20 take 0.5 tablet by mouth once daily as needed for anxiety clonazePAM (KLONOPIN) 0.5 mg tablet Indications: Generalized anxiety disorder 1/2 tablet by mouth every day as needed for severe anxiety 30 tablet 1 04/11/2022 03/21/2024 Discontinued Start: 08-07-2020 End: 04-23-2025 take 0.5 tablet by mouth once daily as needed for anxiety clonazePAM (KLONOPIN) 0.5 mg tablet Indications: Generalized anxiety disorder 1/2 tablet by mouth every day as needed for severe anxiety 5 tablet 0 03/03/2022 04/06/2022 Discontinued Start: 05-26-2020 End: 06-27-2020 take 0.5 tablet by mouth twice daily clonazePAM (KLONOPIN) 0.5 mg tablet Indications: Generalized anxiety disorder Take 0.5 tablets by mouth twice daily for 10 days. Please follow up with your primary care doctor for additional medication. 10 tablet 0 06/17/2020 Active Comment on above: 1/2 tablet twice milan ly in the am and afternoon Take 0.5 tablets by mouth twice daily for 10 days. Please follow up with your primary care doctor for additional medication. 1 tablet daily if ne eded for panic TAKE ONE-HALF TABLET BY MOUTH ONCE DAILY NEEDED FOR ANXIETY FOR UP TO 30 DAYS TAKE ONE-HALF TABLET BY MOUTH EVERY DAY NEEDED for severe anxiety 1/2 tablet by mouth every day as needed for severe anxiety 1 ml dexamethasone phosphate 4 mg/ml injection (2 sources) Corticosteroid Start: 03-02-2023 End: 03-02-2023 10 mg, IntraVENous, Once, On Mon03/02/23 at 1600, For 1 dose, Phase II/On Unit docusate sodium 10 mg/ml oral suspension (4 sources) Start: 03-09-2023 End: 03-10-2023 docusate (Colace) 50 MG/5ML liquid 100 mg Start: 03-02-2023 End: 03-09-2023 take 100 mg by mouth twice daily for constipation 100 mg, Oral, 2 times daily, First dose on Mon03/02/23 at 2100, Phase II/On Unit Bowel Regimen - for prevention of constipation. FLUoxetine 20 mg oral capsule (20 sources) Serotonin Reuptake Inhibitor Start: 04-20-2025 End: 04-23-2025 take 60 mg by mouth once daily 60 mg, Oral, Daily, First dose on 04/20/25 at 0900 Start: 03-02-2023 End: 03-10-2023 take 60 mg by mouth once daily 60 mg, Oral, Daily, Fir [facility] dose on Buffy 03/02/23 at 1545, Phase II/On Unit Start: 09-23-2022 take 3 capsules by m outh once daily FLUoxetine (PROzac) 20 MG capsule Take 60 mg by mouth daily. 09/23/2022 Active Start: 09-23-2022 FLUoxetine (KS Ozac) 20 MG capsule Start: 10-18-2021 End: 04-11-2022 FLUoxetine (PROZAC) 20 mg ca psule 3 capsule daily 90 capsule 2 04/11/2022 Active Start: 07-17-2020 End: 08-16-2020 take 3 capsules by mouth once daily FLUoxetine (PROZAC) 20 mg capsule Take 3 capsules by mouth once daily. 90 capsule 1 07/17/2020 08/16/2020 Active Start: 03-31-2020 End: 05-30-2020 take 3 capsules by mouth once daily FLUoxetine (PROZAC) 20 mg capsule Take 3 capsules by mouth once daily. 90 capsule 1 04/30/2020 Active Comment on above: Take 3 capsules by m outh once daily. TAKE THREE CAPSULES BY MOUTH EVERY DAY 3 capsule daily fluticasone propionate 0.05 mg/actuat metered dose nasal spray (20 sources) Corticosteroid Start: 03-11-20 End: 03-21-20 take 2 spray(s) nasal route once daily as needed fluticasone (FLONASE) 50 mcg/actuation nasal spray Indications: Allergic rhinitis, unspecified seasonality, unspecified trigger instill TWO SPRAYS IN EACH nostril ONCE daily NEEDED 16 g 3 03/11/2022 03/21/2024 Discontinued Start: 02-22-2022 take 2 spray(s) nasa l route once daily as needed fluticasone (Flonase) 50 MCG/ACT nasal spray Administer 2 sprays into each nostril Daily as needed for allergies. 02/22/2022 Active Start: 02-22-2022 take 2 spray(s) nasa l route once daily as needed fluticasone (Flonase) 50 MCG/ACT nasal spray instill TWO SPRAYS IN EACH nostril ONCE daily NEEDED 0 02/22/2022 Active Start: 11-03-2021 End: 03-11-2022 take 2 spray(s) nasal route once daily as needed fluticasone (FLONASE) 50 mcg/actuation nasal spray Indications: Allergic rhinitis, unspecified seasonality, unspecified trigger USE 2 SPRAYS IN EACH NOSTRIL ONCE A DAY NEEDED 1 Each 3 11/03/2021 03/11/2022 Discontinued Start: 10-31-2021 End: 02-28-2022 take 2 spray(s) nasal route once daily as needed fluticasone (FLONASE) 50 mcg/actuation nasal spray Indications: Other allergic rhinitis USE 2 SPRAYS IN EACH NOSTRIL ONCE A DAY NEEDED 48 g 3 10/31/2021 02/28/2022 Discontinued Comment on above: USE 2 SPRAYS IN EACH NOSTRIL ONCE A DAY NEEDED instill TWO SPRAYS I N EACH nostril ONCE daily NEEDED 60 actuat formoterol fumarate 0.005 mg/actuat / mometasone furoate 0.2 mg/actuat metered dose inhaler (4 sources) Corticosteroid, beta2-Adrenergic Agonist Start: 04-20-2025 End: 04-23-2025 take 2 puff(s) by mouth twice daily 2 puff, Inhalation, 2 times daily, First dose on 04/20/25 at 0000, Administer using an inhaler spacer. Rinse mouth with water after use to reduce aftertaste and incidence of candidiasis. Do not swallow. Start: 03-02-2023 End: 03-10-2023 mometasone-formoterol (Duler a 100) 100-5 MCG/ACT inhaler 2 puff 1000 ml glucose 50 mg/ml / potassium chloride 0.02 meq/ml / sodium chloride 9 mg/ml injection (2 sources) Start: 04-20-2025 End: 04-22-2025 take 125 mL intravenously every hour 125 mL/hr, IntraVENous, Continuous, Starting on Mon04/20/25 at 0015 1 ml hydrALAZINE hydrochloride 20 mg/ml injection (2 sources) Arteriolar Vasodilator Start: 03-07-2023 End: 03-10-2023 take 10 mg intravenously every four hours as needed for hypertension hydrALAZINE (Apresoline) injection 10 mg lactulose 667 mg/ml oral solution (2 sources) Osmotic Laxative Start: 03-07-2023 End: 03-07-2023 lactulose (Chronulac) 10 GM/15ML solution 10 g lamoTRIgine 100 mg oral tablet (20 sources) Mood Stabilizer, Anti-epileptic Agent Start: 04-20-2025 End: 04-23-2025 take 50 mg by mouth once daily 50 mg, Oral, Daily, First dose on 04/20/25 at 0900 Start: 03-02-2023 End: 03-10-2023 take 50 mg by mouth once daily 50 mg, Oral, Daily, Fir st dose on Buffy 03/02/23 at 1545, Phase II/On Unit Start: 11-07-2022 take 2 tablets by mo uth once daily lamoTRIgine (LaMICtal) 25 MG tablet Take 50 mg by mouth daily. 11/07/2022 Active Start: 11-07-2022 lamoTRIgine (L aMICtal) 25 MG tablet Start: 11-22-2021 End: 10-08-2022 take 2 tablets by mouth once daily lamoTRIgine (LAMICTAL) 25 mg tablet Take 2 tablets by mouth once daily. 180 tablet 1 04/11/2022 Active Start: 11-15-2021 End: 11-22-2021 take 3 tablets by mouth once daily lamoTRIgine (LAMICTAL) 25 mg tablet TAKE THREE TABLETS BY MOUTH EVERY DAY 90 tablet 0 11/15/2021 11/22/2021 Discontinued Comment on above: Take 2 tablets by mo uth once daily. TAKE THREE TABLETS BY MOUTH EVERY DAY TAKE THREE TABLETS B Y MOUTH EVERY DAY Take 2 tablets by mo uth once daily. lisinopril 20 mg oral tablet (20 sources) Angiotensin Converting Enzyme Inhibitor Start: End: take 1 tablet by mouth once daily lisinopril 20 MG tablet Take 20 mg by mouth daily. 11/08/2022 04/23/2025 Discontinued (Stop taking at discharge) Start: 11-28-2017 take 1 tablet by kiki th once daily lisinopril (ZESTRIL, PRINIVIL) 20 mg tablet Take 1 tablet by mouth once daily. 30 tablet 2 11/28/2017 Active Comment on above: Take 1 tablet by kiki th once daily. losartan potassium 50 mg oral tablet (13 sources) Angiotensin 2 Receptor Elena Start: 04-20-2025 End: 04-23-2025 take 100 mg by mouth once daily 100 mg, Oral, Daily, First dose on 04/20/25 at 0900 Start: 03-21-2024 End: 03-21-2025 take 1 tablet by mouth once daily losartan (COZAAR) 100 mg tablet Take 1 tablet by mouth once daily. 90 tablet 3 03/21/2024 03/21/2025 Active take 2 tablets by [facility] once daily losartan (Cozaar) 50 MG tablet Take 100 mg by mouth daily. Active methocarbamol 750 mg oral tablet (2 sources) Muscle Relaxant Start: 04-20-2025 End: 04-23-2025 take 1 tablet by mouth every eight hours as needed 750 mg, Oral, Every 8 hours PRN, muscle spasms, Starting on 04/20/25 at 0141 1 ml morphine sulfate 4 mg/ml cartridge (2 sources) Opioid Agonist Start: 04-19-2025 End: 04-23-2025 take 4 mg by mouth every three hours as needed for pain 4 mg, IntraVENous, Every 3 hours PRN, severe pain (7-10), moderate pain (4-6), Starting on 04/19/25 at 2031, If oral and IV narcotics ordered, use oral first and only use IV if oral is ineffective or cannot take oral. Do Not give oral and IV within 1 hour of each other unless specifically ordered. morphine sulfate (PF) injection 2 mg (2 sources) Start: 03-02-2023 End: 03-10-2023 morphine sulfate (PF) injection 2 mg 1 ml naloxone hydrochloride 0.4 mg/ml injection (4 sources) Opioid Antagonist Start: 04-19-2025 End: 04-23-2025 0.4 mg, IntraVENous, Every 5 min PRN, opioid reversal, respiratory depression, Starting on 04/19/25 at 2033, +++ For RR Start: 03-06-2023 End: 03-07-2023 naloxone (Narcan) 4 mg/0.1 m L nasal spray Administer 1 spray (4 mg) into affected nostril(s) Once for 1 dose. May repeat every 2-3 minutes if needed, alternating nostrils, until medical assistance becomes available. 2 each 0 03/06/2023 03/07/2023 2 ml ondansetron 2 mg/ml injection (20 sources) Serotonin-3 Receptor Antagonist Start: 04-21-2025 End: 04-21-2025 4 mg, IntraVENous, Once, On 04/21/25 at 1245, For 1 dose, Preprocedure Start: 04-21-2025 End: 04-21-2025 4 mg, IntraVENous, Once, On 04/21/25 at 1245, For 1 dose, Preprocedure Start: 04-20-2025 End: 04-23-2025 take 4 mg intravenously every four hours as needed for nausea and vomiting 4 mg, IntraVENous, Every 4 hours PRN, nausea, vomiting, Starting on 04/20/25 at 0020 Start: 12-16-2023 End: 12-16-2023 ondansetron (Zofran) injecti on 4 mg Start: 12-16-2023 End: 12-19-2023 take 1 tablet by mouth every six hours ondansetron (Zofran) 4 MG tablet Take 1 tablet (4 mg) by mouth in the morning and 1 tablet (4 mg) at noon and 1 tablet (4 mg) in the evening and 1 tablet (4 mg) before bedtime. Do all this for 3 days. 12 tablet 0 12/16/2023 12/19/2023 Active Comment on above: Take 4 mg by mouth e very 6 hours as needed. ondansetron ODT (Zofran-ODT) disintegrating tablet 4 mg (2 sources) Start: 03-02-20 End: 03-10-20 take 1 tablet by mouth every eight hours as needed for nausea and vomiting ondansetron ODT (Zofran-ODT) disintegrating tablet 4 mg phenol 14 mg/ml mouthwash (2 sources) Start: 03-02-20 End: 03-10-20 take 1 spray(s) by mouth every two hours as needed 1 spray, Mouth/Throat, Every 2 hour PRN, sore throat, Starting on Buffy 03/02/23 at 1544, Phase II/On Unit Instruct patient to spit out after 15 seconds. microencapsulated potassium chloride 10 meq extended release oral tablet (4 sources) Start: 04-20-20 End: 04-20-20 40 mEq, Oral, Once, On Mon04/20/25 at 1600, For 1 dose, Best given with food and plenty of water to minimize gastric irritation. Do not crush or chew. Start: 04-20-2025 End: 04-20-2025 take 1 [oz_av] by mouth once 40 mEq, Oral, Once, On Hernandez n 04/20/25 at 0015, For 1 dose, Dissolve each packet in 4 ounces of water = 5 mEq per 1 oz fluid., Indications: Hypokalemia rosuvastatin calcium 20 mg oral tablet (13 sources) HMG-CoA Reductase Inhibitor Start: 04-20-2025 End: 04-23-2025 take 20 mg by mouth once daily 20 mg, Oral, Nightly, First dose on 04/20/25 at 2100 Start: 03-21-2024 End: 03-21-2025 take 1 tablet by mouth once daily at bedtime rosuvastatin (CRESTOR) 20 mg tablet Take 1 tablet by mouth daily at bedtime. 90 tablet 3 03/21/2024 03/21/2025 Active 50 ml sodium chloride 9 mg/m l injection (10 sources) Start: 12-16-2023 End: 12-16-2023 sodium chloride 0.9 % bolus 1,000 mL Start: 03-02-2023 End: 03-10-2023 10 mL, IntraVENous, Every 12 hours scheduled (2 times per day), First dose on Buffy 03/02/23 at 2100, Phase II/On Unit Start: 03-02-2023 End: 03-06-2023 take 75 mL intravenously every hour 75 mL/hr, IntraVENous, Continuous, Starting on Buffy 03/02/23 at 1545, Phase II/On Unit Start: 03-02-2023 End: 03-10-2023 5-250 mL/hr, IntraVENous, KS N, if patient receiving piggyback infusions and maintenance fluids are not ordered OR KVO fluids to protect IV site / prevent frequent line interruptions/ long duration, Starting on Buffy 03/02/23 at 1544, Phase II/On Unit For piggyback infusion, administer at same rate as piggyback for a total of 25 mL. Enter 25 mL into dose field and piggyback rate into rate field of order. If piggyback is infusing at a rate less than 100 mL/hr, enter 25 mL into dose field and 100 mL/hr into rate field of order. For KVO fluids, enter rate of 20 mL/hr or less into rate field of order. Start: 03-02-2023 End: 03-10-2023 take 10 mL intravenously once 10 mL, IntraVENous, PRN, line care, Starting on Buffy 03/02/23 at 1544, Phase II/On Unit After every IV line use therapeutic multivitamin w/ iron (THERAGRAN-M) 9 mg iron-400 mcg tablet (20 sources) Start: 11-28-2017 take 1 tablet by mouth once daily, then take 9 tablets by mouth therapeutic multivitamin w/ iron (THERAGRAN-M) 9 mg iron-400 mcg tablet Take 1 tablet by mouth once daily. 0 11/28/2017 Active Comment on above: Take 1 tablet by kiki th once daily. tiZANidine 4 mg oral tablet (4 sources) Central alpha-2 Adrenergic Agonist Start: 03-02-2023 End: 03-10-2023 take 1 tablet by mouth every eight hours as needed tiZANidine (Zanaflex) 4 MG tablet Take 1 tablet (4 mg) by mouth every 8 hours as needed for muscle spasms for up to 10 days. 30 tablet 0 03/06/2023 03/09/2023 Discontinued (Stop taking at discharge) traZODone hydrochloride 50 mg oral tablet (12 sources) Serotonin Reuptake Inhibitor Start: 07-17-2020 take 1 tablet by mouth once daily at bedtime traZODone (DESYREL) 50 mg tablet Take 1 tablet by mouth daily at bedtime. 30 tablet 3 07/17/2020 Active Start: 05-20-2020 take 1 tablet by kiki th once daily at bedtime traZODone (DESYREL) 50 mg tablet TAKE ONE TABLET BY MOUTH EVERY DAY AT BEDTIME 30 tablet 3 05/20/2020 Active Comment on above: TAKE ONE TABLET BY M OUTH EVERY DAY AT BEDTIME Take 1 tablet by kiki th daily at bedtime. Problems Active Problems Problem Classification Problem Date Documented Da te Episodic/Chronic Anxiety disorders (20 sources) Generalized anxiety disorder; Translations: [Generalized anxiety disorder] Onset: 0 10-17-2019 Chronic Aortic; peripheral; and visceral artery aneurysms (18 sources) Aneurysm of ascending aorta; Translations: [Aneurysm of ascending aorta without rupture (HCC)] Onset: 4 12-17-2023 Chronic Asthma (20 sources) Mild intermittent asthma; Translations: [Uncomplicated moderate persistent asthma] Onset: 8 01-02-2020 Chronic Cardiac and circulatory congenital anomalies (20 sources) Patent foramen ovale; Translations: [Atrial septal defect] Onset: 0 06-06-2020 Chronic Chronic kidney disease (20 sources) Chronic kidney disease stage 3; Translations: [Stage 3 chronic kidney disease] Onset: 0 06-06-2020 Chronic Chronic kidney disease (1 source) Chronic kidney disease; Translations: [Chronic kidney disease, stage 3 unspecified] Onset: 5 Chronic obstructive pulmonary disease and bronchiectasis (1 source) Chronic obstructive pulmonary disease, unspecified; Translations: [Chronic obstructive pulmonary disease, unspecified] Onset: 5 Chronic Complications of surgical procedures or medical care (20 sources) History of subtotal thyroidectomy; Translations: [Postprocedural hypothyroidism] Onset: 2 Chronic Conditions associated with dizziness or vertigo (3 sources) Dizziness; Translations: [Dizziness and giddiness] Episodic Coronary atherosclerosis and other heart disease (11 sources) Calcification of coronary artery; Translations: [Atherosclerotic heart disease of [place] coronary artery without angina pectoris] Onset: 4 03-21-2024 Chronic Disorders of lipid metabolism (20 sources) Mixed hyperlipidemia; Translations: [Mixed hyperlipidemia] Onset: 0 06-06-2020 Chronic Diverticulosis and diverticulitis (8 sources) Diverticulitis; Translations: [Diverticulitis of intestine, part unspecified, without perforation or abscess without bleeding] Onset: 4 12-17-2023 Chronic Esophageal disorders (2 sources) Lesion of esophagus; Translations: [Esophageal obstruction] 11-16-2023 Chronic Essential hypertension (20 sources) Essential hypertension; Translations: [Essential (primary) hypertension] Onset: 8 01-02-2020 Chronic Fracture of neck of femur (hip) (17 sources) Closed intertrochanteric fracture; Translations: [Displaced intertrochanteric fracture of right femur, initial encounter for closed fracture] Onset: 5 04-19-2025 Episodic Gastrointestinal hemorrhage (2 sources) Rectal hemorrhage; Translations: [Hemorrhage of anus and rectum] 12-17-2023 Episodic Genitourinary symptoms and ill-defined conditions (20 sources) Urge incontinence of urine; Translations: [Urge incontinence] Onset: 0 06-06-2020 Chronic Heart valve disorders (20 sources) Aortic stenosis, non-rheumatic ; Translations: [Nonrheumatic aortic (valve) stenosis] Onset: 0 06-06-2020 Chronic Hypertension with complications and secondary hypertension (20 sources) Hypertensive heart disease without congestive heart failure; Translations: [Hypertensive heart disease without heart failure] Onset: 0 06-06-2020 Chronic Malaise and fatigue (5 sources) Asthenia; Translations: [Other malaise] Onset: 5 04-23-2025 Episodic Mood disorders (20 sources) Bipolar affective disorder, current episode depression; Translations: [Severe depressed bipolar I disorder] Onset: 8 Resolved: 0 01-01-2020 Chronic Nutritional deficiencies (20 sources) Vitamin D deficiency; Translations: [Vitamin D deficiency, unspecified] Onset: 9 Resolved: 9 01-02-2020 Chronic Osteoporosis (6 sources) Osteoporosis; Translations: [Age-related osteoporosis without current pathological fracture] Onset: 5 04-23-2025 Chronic Other and ill-defined heart disease (20 sources) Cardiomegaly; Translations: [Cardiomegaly] Onset: 0 06-06-2020 Chronic Other and unspecified benign neoplasm (1 source) Polyp of duodenum; Translations: [Benign neoplasm of duodenum] 11-16-2023 Episodic Other circulatory disease (14 sources) Disorder of artery; Translations: [Disorder of arteries and arterioles, unspecified] Onset: 4 02-23-2024 Chronic Other circulatory disease (1 source) Disorder of arteries and arterioles, unspecified; Translations: [Disorder of artery or arteriole (HCC)] Onset: 4 Chronic Other nervous system disorders (3 sources) Cervical myelopathy; Translations: [Disease of spinal cord, unspecified] Chronic Other nervous system disorders (3 sources) Numbness of hand; Translations: [Anesthesia of skin] Episodic Other nervous system disorders (5 sources) Acute pain due to injury; Translations: [Acute pain due to trauma] Onset: 5 04-23-2025 Episodic Other screening for suspected conditions (not mental disorders or infectious disease) (17 sources) Barium swallow abnormal; Translations: [Abnormal findings on diagnostic imaging of other parts of digestive tract] Onset: 4 11-14-2023 Episodic Other upper respiratory disease (20 sources) Allergic rhinitis; Translations: [Allergic rhinitis, unspecified] Onset: 0 06-06-2020 Chronic Parkinson`s disease (1 source) Parkinsonism; Translations: [Parkinson's disease] Chronic Residual codes; unclassified (1 source) Obstructive sleep apnea (adult) (pediatric); Translations: [TATI (obstructive sleep apnea)] Onset: 4 Chronic Residual codes; unclassified (10 sources) H/O: hysterectomy; Translations: [Status post hysterectomy] Onset: 0 06-06-2020 Episodic Residual codes; unclassified (5 sources) At risk of delirium; Translations: [Other specified personal risk factors, not elsewhere classified] Onset: 5 04-23-2025 Episodic Skin and subcutaneous tissue infections (1 source) Cellulitis of left upper limb; Translations: [Cellulitis of left upper limb] 05-25-2023 Episodic Suicide and intentional self-inflicted injury (14 sources) Suicide attempt ; Translations: [Suicide attempt] Onset: 8 02-21-2019 Thyroid disorders (20 sources) Multinodular goiter; Translations: [Mass of thyroid gland] Onset: 0 06-17-2020 Chronic Unclassified (2 sources) OPENED IN ERROR Unclassified (1 source) Aneurysm of ascending aorta without rupture (HCC); Translations: [Aneurysm of ascending aorta without rupture (HCC)] Onset: 5 Unclassified (1 source) Autogenerated Problem Onset: 5 04-21-2025 Past or Other Problems Problem Classification Problem Date Documented Da te Episodic/Chronic Acute and unspecified renal failure (20 sources) Acute renal failure syndrome; Translations: [Acute kidney failure, unspecified] Onset: 09-20-2017 Resolved: 11-21-2017 12-16-2023 Episodic Acute cerebrovascular disease (15 sources) Intracranial hemorrhage; Translations: [Hemorrhage into subarachnoid space of neuraxis] Onset: 06-07-2020 Resolved: 06-17-2020 06-07-2020 Chronic Administrative/social admission (20 sources) Financial problem; Translations: [Problem related to housing and economic circumstances, unspecified] Onset: 02-21-2019 02-21-2019 Episodic E Codes: Fall (12 sources) Fall; Translations: [Unspecified fall, initial encounter] Onset: 06-08-2020 Resolved: 06-17-2020 06-17-2020 Episodic Fluid and electrolyte disorders (20 sources) Dehydration; Translations: [Dehydration] Onset: 09-20-2017 Resolved: 08-12-2019 09-29-2017 Episodic Genitourinary symptoms and ill-defined conditions (20 sources) Pyuria; Translations: [Pyuria] Onset: 09-20-2017 Resolved: 08-12-2019 11-21-2017 Episodic Intracranial injury (20 sources) Traumatic hematoma of subdural space of neuraxis; Translations: [Traumatic subdural hematoma of neuraxis] Onset: 11-18-2022 11-18-2022 Episodic Nausea and vomiting (13 sources) Nausea, vomiting and diarrhea; Translations: [Nausea with vomiting, unspecified] Onset: 12-16-2023 12-16-2023 Episodic Other connective tissue disease (20 sources) Recurrent falls ; Translations: [Repeated falls] Onset: 03-01-2022 Episodic Other connective tissue disease (20 sources) Rhabdomyolysis; Translations: [Rhabdomyolysis] Onset: 02-28-2022 02-28-2022 Episodic Other gastrointestinal disorders (19 sources) Dysphagia; Translations: [Dysphagia, unspecified] Onset: 11-14-2023 05-31-2023 Episodic Other hematologic conditions (12 sources) Erythrocytosis; Translations: [Secondary polycythemia] Onset: 09-20-2017 Resolved: 11-21-2017 11-21-2017 Episodic Other injuries and conditions due to external causes (12 sources) Traumatic injury; Translations: [Injury, unspecified, initial encounter] Onset: 11-06-2020 Resolved: 11-06-2020 11-06-2020 Episodic Other lower respiratory disease (20 sources) Dyspnea; Translations: [Shortness of breath] Onset: 11-18-2022 Episodic Other lower respiratory disease (1 source) Dyspnea, unspecified; Translations: [Dyspnea, unspecified type] Onset: 03-21-2024 Episodic Poisoning by other medications and drugs (12 sources) Poisoning by unspecified drugs, medicaments and biological substances, accidental (unintentional), initial encounter; Translations: [Poisoning by unspecified drug or medicinal substance] Onset: 11-13-2017 Resolved: 11-27-2017 11-27-2017 Episodic Residual codes; unclassified (20 sources) Insomnia; Translations: [Insomnia, unspecified] Onset: 08-06-2019 01-02-2020 Episodic Spondylosis; intervertebral disc disorders; other back problems (20 sources) Spinal stenosis in cervical region; Translations: [Spinal stenosis, cervical region] Onset: 03-02-2023 Episodic Suicide and intentional self-inflicted injury (20 sources) Suicide attempt ; Translations: [Suicide attempt, initial encounter] Onset: 11-13-2017 02-21-2019 Episodic Syncope (20 sources) Syncope and collapse; Translations: [Syncope and collapse] Onset: 11-18-2022 11-18-2022 Episodic Thyroid disorders (20 sources) Mass of thyroid gland; Translations: [Disorder of thyroid, unspecified] Onset: 12-16-2020 Resolved: 02-24-2022 12-16-2020 Episodic Unclassified (1 source) Patient encounter status 12-03-2024 Urinary tract infections (12 sources) Urinary tract infectious disease; Translations: [Urinary tract infection, site not specified] Onset: 11-13-2017 Resolved: 08-12-2019 08-12-2019 Episodic Viral infection (20 sources) Herpes simplex; Translations: [Herpesviral infection, unspecified] Onset: 06-06-2020 06-06-2020 Episodic Results Test Name Value Interpretation Reference Range Facility Anion gap in Serum or Plasma Ordered By: Raffy Barillas on 06-19-2025 Anion gap [Moles/Vol] 9 mmol/L - [facility] BUN/creatinine ratioOrdered By: Raffy Barillas on 06-19-2025 Urea nitrogen/Creatinine [Mass ratio] 21.7 mg/mg High 06-23 [facility] Basic Metabolic Profile (BMP )on 06-19-2025 BUN/CRE 21.7 RATIO High 06-23 [facility] Comment on above: Order Comment: 310.1 Performed By: #### L 500.2500, L100.0500 #### [facility] [address] [place], [address] Calcium [Mass/Vol] 9.0 mg/dL Normal 7.6-11.0 [facility] Comment on above: Order Comment: 310.1 Performed By: #### L 500.2500, L100.0500 #### [facility] [address] [place], [address] Chloride [Moles/Vol] 107 mmol/L Normal 98-108 [facility] Comment on above: Order Comment: 310.1 Performed By: #### L 500.2500, L100.0500 #### [facility] [address] [place], [address] CO2 [Moles/Vol] 23.8 mmol/L Normal 21.0-32.0 [facility] Comment on above: Order Comment: 310.1 Performed By: #### L 500.2500, L100.0500 #### [facility] [address] [place], [address] Creatinine [Mass/Vol] 0.70 mg/dL Normal 0.70-1.20 [facility] Comment on above: Order Comment: 310.1 Performed By: #### L 500.2500, L100.0500 #### [facility] [address] [place], [address] GAP 9 Normal 5-15 [facility] Comment on above: Order Comment: 310.1 Performed By: #### L 500.2500, L100.0500 #### [facility] [address] [place], [address] GFR/1.73 sq M.predicted among non-blacks MDRD (S/P/Bld) [Vol rate/Area] 91 mL/min/{1.73_m2} Normal >60 [facility] Comment on above: Order Comment: 310.1 Result Comment: mL/m in/1.73m2 CKD-EPI Creatinine Equation (2020) Performed By: #### L 500.2500, L100.0500 #### [facility] [address] [place], [address] Glucose [Mass/Vol] 87 mg/dL Normal 70-99 [facility] Comment on above: Order Comment: 310.1 Performed By: #### L 500.2500, L100.0500 #### [facility] [address] [place], [address] Potassium [Moles/Vol] 4.0 mmol/L Normal 3.3-5.1 [facility] Comment on above: Order Comment: 310.1 Performed By: #### L 500.2500, L100.0500 #### [facility] [address] [place], [address] Sodium [Moles/Vol] 139 mmol/L Normal 133-145 [facility] Comment on above: Order Comment: 310.1 Performed By: #### L 500.2500, L100.0500 #### [facility] [address] [place], [address] Urea nitrogen [Mass/Vol] 15 mg/dL Normal 4-19 [facility] Comment on above: Order Comment: 310.1 Performed By: #### L 500.2500, L100.0500 #### [facility] [address] [place], [address] CBC-Complete Blood Cnt No Di ffon 06-19-2025 Erythrocyte distribution width (RBC) [Ratio] 13.8 % Normal 11.6-14.6 [facility] Comment on above: Order Comment: 310.1 Performed By: #### L 500.2500, L100.0500 #### [facility] [address] [place], [address] Hematocrit (Bld) [Volume fraction] 37.2 % Normal 37-47 [facility] Comment on above: Order Comment: 310.1 Performed By: #### L 500.2500, L100.0500 #### [facility] [address] [place], [address] Hemoglobin (Bld) [Mass/Vol] 12.1 g/dL Normal 12.0-15.0 [facility] Comment on above: Order Comment: 310.1 Performed By: #### L 500.2500, L100.0500 #### [facility] [address] [place], [address] MCH (RBC) [Entitic mass] 29.3 pg Normal 27.0-32.0 [facility] Comment on above: Order Comment: 310.1 Performed By: #### L 500.2500, L100.0500 #### [facility] [address] [place], [address] MCHC (RBC) [Mass/Vol] 32.5 g/dL Normal 32-36 [facility] Comment on above: Order Comment: 310.1 Performed By: #### L 500.2500, L100.0500 #### [facility] [address] [place], [address] MCV (RBC) [Entitic vol] 90.1 fL Normal 81-99 [facility] Comment on above: Order Comment: 310.1 Performed By: #### L 500.2500, L100.0500 #### [facility] [address] [place], [address] Platelet mean volume (Bld) [Entitic vol] 9.6 fL Normal 6.2-12.0 [facility] Comment on above: Order Comment: 310.1 Performed By: #### L 500.2500, L100.0500 #### [facility] [address] [place], [address] Platelets (Bld) [#/Vol] 175 10*3/uL Normal 150-450 [facility] Comment on above: Order Comment: 310.1 Performed By: #### L 500.2500, L100.0500 #### [facility] [address] [place], [address] RBC (Bld) [#/Vol] 4.13 10*6/uL Low 4.2-5.4 [facility] Comment on above: Order Comment: 310.1 Performed By: #### L 500.2500, L100.0500 #### [facility] [address] [place], [address] RDW SD 45.3 fl High 35.1-43.9 [facility] Comment on above: Order Comment: 310.1 Performed By: #### L 500.2500, L100.0500 #### [facility] [address] [place], [address] WBC (Bld) [#/Vol] 5.4 10*3/uL Normal 4.4-11.0 [facility] Comment on above: Order Comment: 310.1 Performed By: #### L 500.2500, L100.0500 #### [facility] [address] [place], [address] Carbon dioxide, total [Moles /volume] in Central venous bloodOrdered By: Raffy Barillas on 06-19-2025 CO2 [Moles/Vol] 23.8 mmol/L 21.0-32.0 [facility] Chloride assayOrdered By: Arden Noriega on 06-19-2025 Chloride [Moles/Vol] 107 mmol/L 98-108 [facility] Erythrocyte distribution wid th ratioOrdered By: Raffy Barillas on 06-19-2025 Erythrocyte distribution width (RBC) [Ratio] 13.8 % 11.6-14.6 [facility] Erythrocyte distribution wid th standard deviationOrdered By: Raffy Barillas on 06-19-2025 Erythrocyte distribution width (RBC) [Ratio] 45.3 fl High 35.1-43.9 [facility] Glomerular filtration rate ( GFR) estimation/1.73 sq m using serum, plasma, or whole bOrdered By: Raffy Barillas on 06-19-2025 GFR/1.73 sq M.predicted among non-blacks MDRD (S/P/Bld) [Vol rate/Area] 91 mL/min/{1.73_m2} >60 [facility] [place] Comment on above: mL/min/1.73m2 CKD-EP I Creatinine Equation (2020) Hematocrit Auto (Bld) [Volum e fraction]Ordered By: Raffy Barillas on 06-19-2025 Hematocrit (Bld) [Volume fraction] 37.2 % 37-47 [facility] Hemoglobin measurementOrdere d By: Raffy Barillas on 06-19-2025 Hemoglobin (Bld) [Mass/Vol] 12.1 g/dL 12.0-15.0 [facility] MCV (mean corpuscular volume ) determinationOrdered By: Raffy Barillas on 06-19-2025 MCV (RBC) [Entitic vol] 90.1 fL 81-99 [facility] Mean corpuscular hemoglobin (MCH) determinationOrdered By: Raffy Barillas on 06-19-2025 MCH (RBC) [Entitic mass] 29.3 pg 27.0-32.0 [facility] Mean corpuscular hemoglobin concentration (MCHC) determinationOrdered By: Raffy Barillas on 06-19-2025 MCHC (RBC) [Mass/Vol] 32.5 g/dL 32-36 [facility] Mean platelet volume determi nationOrdered By: Raffy Barillas on 06-19-2025 Platelet mean volume (Bld) [Entitic vol] 9.6 fL 6.2-12.0 [facility] Platelet countOrdered By: Arden Noriega on 06-19-2025 Platelets (Bld) [#/Vol] 175 10*3/uL 150-450 [facility] Potassium measurement (mass/ volume)Ordered By: Raffy Barillas on 06-19-2025 Potassium (Unsp spec) [Mass/Vol] 4.0 mmol/L 3.3-5.1 [facility] RBC Auto (Bld) [#/Vol]Ordere d By: Raffy Barillas on 06-19-2025 RBC (Bld) [#/Vol] 4.13 10*6/uL Low 4.2-5.4 [facility] Serum creatinine measurement (mass/volume)Ordered By: Raffy Barillas on 06-19-2025 Creatinine [Mass/Vol] 0.70 mg/dL 0.70-1.20 [facility] Serum glucose measurement (m ass/volume)Ordered By: Raffy Braillas on 06-19-2025 Glucose [Mass/Vol] 87 mg/dL 70-99 [facility] Serum or plasma calcium john urement (mass/volume)Ordered By: Raffy Barillas on 06-19-2025 Calcium [Mass/Vol] 9.0 mg/dL 7.6-11.0 [facility] Serum or plasma urea nitroge n measurement (mass/volume)Ordered By: Raffy Barillas on 06-19-2025 Urea nitrogen [Mass/Vol] 15 mg/dL 4-19 [facility] Sodium levelOrdered By: Joselito Barillas on 06-19-2025 Sodium [Moles/Vol] 139 mmol/L 133-145 [facility] White blood cell (WBC) count Ordered By: Raffy Barillas on 06-19-2025 WBC (Bld) [#/Vol] 5.4 10*3/uL 4.4-11.0 [facility] 37on 05-23-2025 37 WBAT XR in 6 weeks only if still having pain Normal [facility] Office Visiton 05-23-2025 Follow-up visit [id number] Pily Barnes Mauro 1950 F Date Provider Department Center 05/23/2025 [id number], [facility] OR None Family History Problem Relation Age of Onset Cancer Mother No Known Problems Father Family Status - Relation Status Age at Mother Father Level of Service:07118 [place] POSTOP FOLLOW UP VISIT RELATED TO ORIGINAL PX Reason for Visit and Comments: Post-op [483] - IMN right fem 04/21 Normal [facility] Progress Noteon 05-23-2025 Progress Note Subjective: Pily is approximatley 2 weeks post op from IMN right femur fracture. Overall pain is mild. Knee pain is mild. She denies new numbness or tingling since surgery. She denies other new complaints. Review of Systems Constitutional: Negative for activity change. HENT: Negative for congestion. Cardiovascular: Negative for leg swelling. Musculoskeletal: Positive for arthralgias, gait problem and joint swelling. Skin: Negative for wound. Neurological: Negative for weakness. Objective: Ht 5' (1.524 m) Wt 165 lb (74.8 kg) BMI 32.22 kg/m? Ortho Exam All incisions are healing appropriately. Hip ROM shows flexion: 90, IR: 30. Knee ROM shows flexion is 90 and extension is -10. Swelling:mild Sensation normal to all distal dermatomes. No evidence of DVT seen on physical exam.. XRAYS: 2v Right femur show the nail remains in good position. The fracture is well-aligned and remains unchanged from immediate post-op films. Assessment 1. Closed displaced intertrochanteric fracture of right femur, initial encounter ([facility]) Plan Pily will remain WBAT and focus on aggressive ROM of hip and knee and edema control. She [facility]. We reviewed signs and symptoms of infection and DVT. I recommend she follow up in 6 weeks with xrays if pain is not continuing to improve. She knows to call back sooner with any additional questions or concerns. Electronically signed by Stacy Juan CNP 05/23/2025 at 12:35 PM. Normal [facility] XR HIP 2 OR 3 VW RIGHTon XR HIP 2 OR 3 VW RIGHT 2v Right femur sh ow the nail remains in good position. The fracture is well-aligned and remains unchanged from immediate post-op films. Normal [facility] Anion gap in Serum or Plasma Ordered By: Raffy Barillas on 05-07-2025 Anion gap [Moles/Vol] 12 mmol/L - [facility] BUN/creatinine ratioOrdered By: Raffy Barillas on 05-07-2025 Urea nitrogen/Creatinine [Mass ratio] 17.5 mg/mg - [facility] Basic Metabolic Profile (BMP )on 05-07-2025 BUN/CRE 17.5 RATIO Normal 06-23 [facility] Comment on above: Order Comment: 310-1 Performed By: #### L 500.2500, L100.0500 #### [facility] [address] [place], [address] Calcium [Mass/Vol] 9.2 mg/dL Normal 7.6-11.0 [facility] Comment on above: Order Comment: 310-1 Performed By: #### L 500.2500, L100.0500 #### [facility] [address] [place], [address] Chloride [Moles/Vol] 106 mmol/L Normal 98-108 [facility] Comment on above: Order Comment: 310-1 Performed By: #### L 500.2500, L100.0500 #### [facility] [address] [place], [address] CO2 [Moles/Vol] 21.8 mmol/L Normal 21.0-32.0 [facility] Comment on above: Order Comment: 310-1 Performed By: #### L 500.2500, L100.0500 #### [facility] [address] [place], [address] Creatinine [Mass/Vol] 0.86 mg/dL Normal 0.70-1.20 [facility] Comment on above: Order Comment: 310-1 Performed By: #### L 500.2500, L100.0500 #### [facility] [address] [place], [address] GAP 12 Normal 5-15 [facility] Comment on above: Order Comment: 310-1 Performed By: #### L 500.2500, L100.0500 #### [facility] [address] [place], [address] GFR/1.73 sq M.predicted among non-blacks MDRD (S/P/Bld) [Vol rate/Area] 71 mL/min/{1.73_m2} Normal >60 [facility] [place] Comment on above: Order Comment: 310-1 Result Comment: mL/m in/1.73m2 CKD-EPI Creatinine Equation (2020) Performed By: #### L 500.2500, L100.0500 #### [facility] [address] [place], [address] Glucose [Mass/Vol] 85 mg/dL Normal 70-99 [facility] Comment on above: Order Comment: 310-1 Performed By: #### L 500.2500, L100.0500 #### [facility] [address] [place], [address] Potassium [Moles/Vol] 4.1 mmol/L Normal 3.3-5.1 [facility] Comment on above: Order Comment: 310-1 Performed By: #### L 500.2500, L100.0500 #### [facility] [address] [place], [address] Sodium [Moles/Vol] 139 mmol/L Normal 133-145 [facility] Comment on above: Order Comment: 310-1 Performed By: #### L 500.2500, L100.0500 #### [facility] [address] [place], [address] Urea nitrogen [Mass/Vol] 15 mg/dL Normal 4-19 [facility] Comment on above: Order Comment: 310-1 Performed By: #### L 500.2500, L100.0500 #### [facility] [address] [place], [address] CBC-Complete Blood Cnt No Di ffon 05-07-2025 Erythrocyte distribution width (RBC) [Ratio] 14.2 % Normal 11.6-14.6 [facility] Comment on above: Order Comment: 310-1 Performed By: #### L 500.2500, L100.0500 #### [facility] [address] [place], [address] Hematocrit (Bld) [Volume fraction] 31.5 % Low 37-47 [facility] Comment on above: Order Comment: 310-1 Performed By: #### L 500.2500, L100.0500 #### [facility] [address] [place], [address] Hemoglobin (Bld) [Mass/Vol] 10.1 g/dL Low 12.0-15.0 [facility] Comment on above: Order Comment: 310-1 Performed By: #### L 500.2500, L100.0500 #### [facility] [address] [place], [address] MCH (RBC) [Entitic mass] 29.8 pg Normal 27.0-32.0 [facility] Comment on above: Order Comment: 310-1 Performed By: #### L 500.2500, L100.0500 #### [facility] [address] [place], [address] MCHC (RBC) [Mass/Vol] 32.1 g/dL Normal 32-36 [facility] Comment on above: Order Comment: 310-1 Performed By: #### L 500.2500, L100.0500 #### [facility] [address] [place], [address] MCV (RBC) [Entitic vol] 92.9 fL Normal 81-99 [facility] Comment on above: Order Comment: 310-1 Performed By: #### L 500.2500, L100.0500 #### [facility] [address] [place], [address] Platelet mean volume (Bld) [Entitic vol] 9.4 fL Normal 6.2-12.0 [facility] Comment on above: Order Comment: 310-1 Performed By: #### L 500.2500, L100.0500 #### [facility] [address] [place], [address] Platelets (Bld) [#/Vol] 271 10*3/uL Normal 150-450 [facility] Comment on above: Order Comment: 310-1 Performed By: #### L 500.2500, L100.0500 #### [facility] [address] [place], [address] RBC (Bld) [#/Vol] 3.39 10*6/uL Low 4.2-5.4 [facility] Comment on above: Order Comment: 310-1 Performed By: #### L 500.2500, L100.0500 #### [facility] [address] [place], [address] RDW SD 47.8 fl High 35.1-43.9 [facility] Comment on above: Order Comment: 310-1 Performed By: #### L 500.2500, L100.0500 #### [facility] [address] [place], [address] WBC (Bld) [#/Vol] 5.9 10*3/uL Normal 4.4-11.0 [facility] Comment on above: Order Comment: 310-1 Performed By: #### L 500.2500, L100.0500 #### [facility] [address] [place], [address] Carbon dioxide, total [Moles /volume] in Central venous bloodOrdered By: Raffy Barillas on 05-07-2025 CO2 [Moles/Vol] 21.8 mmol/L 21.0-32.0 [facility] Chloride assayOrdered By: Arden Noriega on 05-07-2025 Chloride [Moles/Vol] 106 mmol/L 98-108 [facility] Erythrocyte distribution wid th ratioOrdered By: Raffy Barillas on 05-07-2025 Erythrocyte distribution width (RBC) [Ratio] 14.2 % 11.6-14.6 [facility] Erythrocyte distribution wid th standard deviationOrdered By: Raffy Barillas on 05-07-2025 Erythrocyte distribution width (RBC) [Ratio] 47.8 fl High 35.1-43.9 [facility] Glomerular filtration rate ( GFR) estimation/1.73 sq m using serum, plasma, or whole bOrdered By: Raffy Barillas on 05-07-2025 GFR/1.73 sq M.predicted among non-blacks MDRD (S/P/Bld) [Vol rate/Area] 71 mL/min/{1.73_m2} >60 [facility] Comment on above: mL/min/1.73m2 CKD-EP I Creatinine Equation (2020) Hematocrit Auto (Bld) [Volum e fraction]Ordered By: Raffy Barillas on 05-07-2025 Hematocrit (Bld) [Volume fraction] 31.5 % Low 37-47 [facility] Hemoglobin measurementOrdere d By: Raffy Barillas on 05-07-2025 Hemoglobin (Bld) [Mass/Vol] 10.1 g/dL Low 12.0-15.0 [facility] MCV (mean corpuscular volume ) determinationOrdered By: Raffy Barillas on 05-07-2025 MCV (RBC) [Entitic vol] 92.9 fL 81-99 [facility] Mean corpuscular hemoglobin (MCH) determinationOrdered By: Raffy Barillas on 05-07-2025 MCH (RBC) [Entitic mass] 29.8 pg 27.0-32.0 [facility] Mean corpuscular hemoglobin concentration (MCHC) determinationOrdered By: Raffy Barillas on 05-07-2025 MCHC (RBC) [Mass/Vol] 32.1 g/dL 32-36 [facility] Mean platelet volume determi nationOrdered By: Raffy Barillas on 05-07-2025 Platelet mean volume (Bld) [Entitic vol] 9.4 fL 6.2-12.0 [facility] Platelet countOrdered By: Arden Noriega on 05-07-2025 Platelets (Bld) [#/Vol] 271 10*3/uL 150-450 [facility] Potassium measurement (mass/ volume)Ordered By: Raffy Barillas on 05-07-2025 Potassium (Unsp spec) [Mass/Vol] 4.1 mmol/L 3.3-5.1 [facility] RBC Auto (Bld) [#/Vol]Ordere d By: Raffy Barillas on 05-07-2025 RBC (Bld) [#/Vol] 3.39 10*6/uL Low 4.2-5.4 [facility] Serum creatinine measurement (mass/volume)Ordered By: Raffy Barillas on 05-07-2025 Creatinine [Mass/Vol] 0.86 mg/dL 0.70-1.20 [facility] Serum glucose measurement (m ass/volume)Ordered By: Raffy Barillas on 05-07-2025 Glucose [Mass/Vol] 85 mg/dL 70-99 [facility] Serum or plasma calcium john urement (mass/volume)Ordered By: Raffy Barillas on 05-07-2025 Calcium [Mass/Vol] 9.2 mg/dL 7.6-11.0 [facility] Serum or plasma urea nitroge n measurement (mass/volume)Ordered By: Raffy Barillas on 05-07-2025 Urea nitrogen [Mass/Vol] 15 mg/dL 4-19 [facility] Sodium levelOrdered By: Joselito Barillas on 05-07-2025 Sodium [Moles/Vol] 139 mmol/L 133-145 [facility] White blood cell (WBC) count Ordered By: Raffy Barillas on 05-07-2025 WBC (Bld) [#/Vol] 5.9 10*3/uL 4.4-11.0 [facility] Anion gap in Serum or Plasma Ordered By: Raffy Barillas on 04-30-2025 Anion gap [Moles/Vol] 9 mmol/L 5-15 [facility] BUN/creatinine ratioOrdered By: Raffy Barillas on 04-30-2025 Urea nitrogen/Creatinine [Mass ratio] 21.2 mg/mg High 10-20 [facility] Bilirubin, totalOrdered By: Raffy Barillas on 04-30-2025 Bilirubin [Mass/Vol] 0.68 mg/dL 0.00-1.30 [facility] CBC-Complete Blood Cnt No Di ffon 04-30-2025 Erythrocyte distribution width (RBC) [Ratio] 13.4 % Normal 11.6-14.6 [facility] Comment on above: Order Comment: 310-1 Performed By: #### L 500.4050, L501.9520, L100.0500 #### [facility] [address] [place], [place] [address], [address] Hematocrit (Bld) [Volume fraction] 29.5 % Low 37-47 [facility] Comment on above: Order Comment: 310-1 Performed By: #### L 500.4050, L501.9520, L100.0500 #### [facility] [address] [place], [address] Hemoglobin (Bld) [Mass/Vol] 9.5 g/dL Low 12.0-15.0 [facility] Comment on above: Order Comment: 310-1 Performed By: #### L 500.4050, L501.9520, L100.0500 #### [facility] [address] [place], [address] MCH (RBC) [Entitic mass] 29.8 pg Normal 27.0-32.0 [facility] Comment on above: Order Comment: 310-1 Performed By: #### L 500.4050, L501.9520, L100.0500 #### [facility] [address] [place], [address] MCHC (RBC) [Mass/Vol] 32.2 g/dL Normal 32-36 [facility] Comment on above: Order Comment: 310-1 Performed By: #### L 500.4050, L501.9520, L100.0500 #### [facility] [address] [place], [address] MCV (RBC) [Entitic vol] 92.5 fL Normal 81-99 [facility] Comment on above: Order Comment: 310-1 Performed By: #### L 500.4050, L501.9520, L100.0500 #### [facility] [address] [place], [address] Platelet mean volume (Bld) [Entitic vol] 9.6 fL Normal 6.2-12.0 [facility] Comment on above: Order Comment: 310-1 Performed By: #### L 500.4050, L501.9520, L100.0500 #### [facility] [address] [place], [address] Platelets (Bld) [#/Vol] 245 10*3/uL Normal 150-450 [facility] Comment on above: Order Comment: 310-1 Performed By: #### L 500.4050, L501.9520, L100.0500 #### [facility] [address] [place], [address] RBC (Bld) [#/Vol] 3.19 10*6/uL Low 4.2-5.4 [facility] Comment on above: Order Comment: 310-1 Performed By: #### L 500.4050, L501.9520, L100.0500 #### [facility] [address] [place], [address] RDW SD 45.8 fl High 35.1-43.9 [facility] Comment on above: Order Comment: 310-1 Performed By: #### L 500.4050, L501.9520, L100.0500 #### [facility] [address] [place], [address] WBC (Bld) [#/Vol] 6.4 10*3/uL Normal 4.4-11.0 [facility] Comment on above: Order Comment: 310-1 Performed By: #### L 500.4050, L501.9520, L100.0500 #### [facility] [address] [place], [address] Carbon dioxide, total [Moles /volume] in Central venous bloodOrdered By: Raffy Barillas on 04-30-2025 CO2 [Moles/Vol] 24.2 mmol/L 21.0-32.0 [facility] Chloride assayOrdered By: Arden Noriega on 04-30-2025 Chloride [Moles/Vol] 105 mmol/L 98-108 [facility] Comprehensive Metabolic Prof ilon 04-30-2025 Albumin [Mass/Vol] 3.2 g/dL Low 3.4-4.8 [facility] Comment on above: Order Comment: 310-1 Performed By: #### L 500.4050, L501.9520, L100.0500 #### [facility] [address] [place], [address] Albumin/Globulin [Mass ratio] 1.3 {ratio} Normal 0.9-2.4 [facility] Comment on above: Order Comment: 310-1 Performed By: #### L 500.4050, L501.9520, L100.0500 #### [facility] [address] [place], [address] ALK PHOS 79 U/L Normal 35-104 [facility] Comment on above: Order Comment: 310-1 Performed By: #### L 500.4050, L501.9520, L100.0500 #### [facility] [address] [place], [address] ALT [Catalytic activity/Vol] 36 U/L High <=34 [facility] Comment on above: Order Comment: 310-1 Performed By: #### L 500.4050, L501.9520, L100.0500 #### [facility] [address] [place], [address] AST [Catalytic activity/Vol] 31 U/L Normal <=31 [facility] Comment on above: Order Comment: 310-1 Performed By: #### L 500.4050, L501.9520, L100.0500 #### [facility] [address] [place], [address] Bilirubin [Mass/Vol] 0.68 mg/dL Normal 0.00-1.30 [facility] Comment on above: Order Comment: 310-1 Performed By: #### L 500.4050, L501.9520, L100.0500 #### [facility] [address] [place], [address] BUN/CRE 21.2 RATIO High 10-20 [facility] Comment on above: Order Comment: 310-1 Performed By: #### L 500.4050, L501.9520, L100.0500 #### [facility] [address] [place], [address] Calcium [Mass/Vol] 9.0 mg/dL Normal 7.6-11.0 [facility] Comment on above: Order Comment: 310-1 Performed By: #### L 500.4050, L501.9520, L100.0500 #### [facility] [address] [place], [address] Chloride [Moles/Vol] 105 mmol/L Normal 98-108 [facility] Comment on above: Order Comment: 310-1 Performed By: #### L 500.4050, L501.9520, L100.0500 #### [facility] [address] [place], [address] CO2 [Moles/Vol] 24.2 mmol/L Normal 21.0-32.0 [facility] Comment on above: Order Comment: 310-1 Performed By: #### L 500.4050, L501.9520, L100.0500 #### [facility] [address] [place], [address] Creatinine [Mass/Vol] 0.79 mg/dL Normal 0.70-1.20 [facility] Comment on above: Order Comment: 310-1 Performed By: #### L 500.4050, L501.9520, L100.0500 #### [facility] [address] [place], [address] GAP 9 Normal 5-15 [facility] Comment on above: Order Comment: 310-1 Performed By: #### L 500.4050, L501.9520, L100.0500 #### [facility] [address] [place], [address] GFR/1.73 sq M.predicted among non-blacks MDRD (S/P/Bld) [Vol rate/Area] 79 mL/min/{1.73_m2} Normal >60 [facility] [place] Comment on above: Order Comment: 310-1 Result Comment: mL/m in/1.73m2 CKD-EPI Creatinine Equation (2020) Performed By: #### L 500.4050, L501.9520, L100.0500 #### [facility] [address] [place], [address] Globulin (S) [Mass/Vol] 2.5 g/dL Normal 2.2-4.2 [facility] Comment on above: Order Comment: 310-1 Performed By: #### L 500.4050, L501.9520, L100.0500 #### [facility] [address] [place], [address] Glucose [Mass/Vol] 90 mg/dL Normal 70-99 [facility] Comment on above: Order Comment: 310-1 Performed By: #### L 500.4050, L501.9520, L100.0500 #### [facility] [address] [place], [address] Potassium [Moles/Vol] 3.9 mmol/L Normal 3.3-5.1 [facility] Comment on above: Order Comment: 310-1 Performed By: #### L 500.4050, L501.9520, L100.0500 #### [facility] [address] [place], [address] Sodium [Moles/Vol] 138 mmol/L Normal 133-145 [facility] Comment on above: Order Comment: 310-1 Performed By: #### L 500.4050, L501.9520, L100.0500 #### [facility] [address] [place], [address] T PROT 5.7 g/dL Low 5.9-8.4 [facility] Comment on above: Order Comment: 310-1 Performed By: #### L 500.4050, L501.9520, L100.0500 #### [facility] [address] [place], [address] Urea nitrogen [Mass/Vol] 17 mg/dL Normal 4-19 [facility] Comment on above: Order Comment: 310-1 Performed By: #### L 500.4050, L501.9520, L100.0500 #### [facility] [address] [place], [address] Erythrocyte distribution wid th ratioOrdered By: Raffy Barillas on 04-30-2025 Erythrocyte distribution width (RBC) [Ratio] 13.4 % 11.6-14.6 [facility] Erythrocyte distribution wid th standard deviationOrdered By: Raffy Barillas on 04-30-2025 Erythrocyte distribution width (RBC) [Ratio] 45.8 fl High 35.1-43.9 [facility] Glomerular filtration rate ( GFR) estimation/1.73 sq m using serum, plasma, or whole bOrdered By: Raffy Barillas on 04-30-2025 GFR/1.73 sq M.predicted among non-blacks MDRD (S/P/Bld) [Vol rate/Area] 79 mL/min/{1.73_m2} >60 [facility] Comment on above: mL/min/1.73m2 CKD-EP I Creatinine Equation (2020) Hematocrit Auto (Bld) [Volum e fraction]Ordered By: Raffy Barillas on 04-30-2025 Hematocrit (Bld) [Volume fraction] 29.5 % Low 37-47 [facility] Hemoglobin measurementOrdere d By: Raffy Barillas on 04-30-2025 Hemoglobin (Bld) [Mass/Vol] 9.5 g/dL Low 12.0-15.0 [facility] - Chemistry and C hemistry - challengeOrdered By: Raffy Barillas on 04-30-2025 AST [Catalytic activity/Vol] 31 U/L <32 [facility] MCV (mean corpuscular volume ) determinationOrdered By: Raffy Barillas on 04-30-2025 MCV (RBC) [Entitic vol] 92.5 fL 81-99 [facility] Mean corpuscular hemoglobin (MCH) determinationOrdered By: Raffy Barillas on 04-30-2025 MCH (RBC) [Entitic mass] 29.8 pg 27.0-32.0 [facility] Mean corpuscular hemoglobin concentration (MCHC) determinationOrdered By: Raffy Barillas on 04-30-2025 MCHC (RBC) [Mass/Vol] 32.2 g/dL 32-36 [facility] Mean platelet volume determi nationOrdered By: Raffy Barillas on 04-30-2025 Platelet mean volume (Bld) [Entitic vol] 9.6 fL 6.2-12.0 [facility] Platelet countOrdered By: Arden Noriega on 04-30-2025 Platelets (Bld) [#/Vol] 245 10*3/uL 150-450 [facility] Potassium measurement (mass/ volume)Ordered By: Raffy Barillas on 04-30-2025 Potassium (Unsp spec) [Mass/Vol] 3.9 mmol/L 3.3-5.1 [facility] RBC Auto (Bld) [#/Vol]Ordere d By: Raffy Barillas on 04-30-2025 RBC (Bld) [#/Vol] 3.19 10*6/uL Low 4.2-5.4 [facility] Serum creatinine measurement (mass/volume)Ordered By: Raffy Barillas on 04-30-2025 Creatinine [Mass/Vol] 0.79 mg/dL 0.70-1.20 [facility] Serum globulin measurementOr dered By: Raffy Barillas on 04-30-2025 Globulin (S) [Mass/Vol] 2.5 g/dL 2.2-4.2 [facility] Serum glucose measurement (m ass/volume)Ordered By: Raffy Barillas on 04-30-2025 Glucose [Mass/Vol] 90 mg/dL 70-99 [facility] Serum or plasma alanine chin otransferase (ALT) measurementOrdered By: Raffy Barillas on 04-30-2025 ALT [Catalytic activity/Vol] 36 U/L High <35 [facility] Serum or plasma albumin john urement (mass/volume)Ordered By: Raffy Barillas on 04-30-2025 Albumin [Mass/Vol] 3.2 g/dL Low 3.4-4.8 [facility] Serum or plasma albumin/glob ulin mass ratioOrdered By: Raffy Barillas on 04-30-2025 Albumin/Globulin [Mass ratio] 1.3 {ratio} 0.9-2.4 [facility] Serum or plasma alkaline isael sphatase measurementOrdered By: Raffy Barillas on 04-30-2025 ALP [Catalytic activity/Vol] 79 U/L 35-104 [facility] Serum or plasma calcium john urement (mass/volume)Ordered By: Raffy Barillas on 04-30-2025 Calcium [Mass/Vol] 9.0 mg/dL 7.6-11.0 [facility] Serum or plasma urea nitroge n measurement (mass/volume)Ordered By: Raffy Barillas on 04-30-2025 Urea nitrogen [Mass/Vol] 17 mg/dL 4-19 [facility] Sodium levelOrdered By: Joselito Barillas on 04-30-2025 Sodium [Moles/Vol] 138 mmol/L 133-145 [facility] TSH DL <= 0.005 mIU/L QnOrde red By: Raffy Barillas on 04-30-2025 TSH Qn 4.650 uIU/mL High 0.300-4.200 [facility] Thyroid Stim Hormone (TSH)on 04-30-2025 TSH 4.650 uIU/mL High 0.300-4.200 [facility] Comment on above: Order Comment: 310-1 Performed By: #### L 500.4054, L501.9540, L100.0500 #### [facility] [address] [place], [place], [address] Total proteinOrdered By: Mary Barillas on 04-30-2025 Protein [Mass/Vol] 5.7 g/dL Low 5.9-8.4 [facility] White blood cell (WBC) count Ordered By: Raffy Barillas on 04-30-2025 WBC (Bld) [#/Vol] 6.4 10*3/uL 4.4-11.0 [facility] [id number] 04-24-2025 [id number] Patient Choice Patient Name: PILY BARNES Date of : [address] [facility] [id number] 04-23-2025 [id number] Next Site of Care Admission Date: 04/19/2025 03:31 PM Patient Name: PILY BARNES Location: [place] [id number] Date of : 1950 Placement Information Referral Type:Assisted/SNF - New Referral ID:[facility]-[id number] Provider Name:[facility] Address 1:[address] Address 2: City:[place] Selection Factors:Patient/Fami ly Choice [place] [facility] [id number] [facility] [address] [facility] [id number] [id number] Patient/Family Choice [facility] [id number] Cm received confirmation that 2 pm is confirmed for transport to [place]. CM placed call to Jenise Barnes left message w [employer] planning assistant and also called Nathanael Barnes and spoke w nathanael via phone to update on transport time. and RN aware of [address] [facility] [id number] Confirmed pickup time of 2pm by transport company Dany Liu at phone number [phone]. Location of facility drop off is [facility]. Facility notified via [facility], [facility] notified on secure chat. [facility] [phone] Transport requested 2pm in [employer]. Awaiting time confirmation. [facility] [id number] Discharge med list transmitted to [facility] per TCC request. 7000 was entered into [facility] for the [facility]- Facility is aware [facility] [id number] Johnathon received notification from [facility] stating pt cleared for dc. Only med change s Klonipin and it was dc'd. CM placed a call to Jenise Barnes [facility] to attempt to update and left v mail. CM did speak with son Nathanael via phone to provide update and advised that dc is being placed and will call back with notification of transport. CM messaged facility in [facility]. Task placed to [facility] to set up cot Transport. Awaiting finalized dc order by attending and will have SKIP TRACER send dc orders/7000 and MAR> DCP: [facility]. [facility] [phone] Call placed to Jenise Barnes to inform of insurance auth for admission to [facility]. CM had to leave an additional message w [employer] assistance left name and contact information. Cwe continue to wait for Geriatrics assessment recommendations. CM to continue to reach HCPOA. [facility] [phone] Late entry by CM this day 04/23. 8:35 AM cm placed calls to pt's son Nathanael Barnes to inform responses from skilled referrals. [facility] accepted and [place] [facility]. [place] was not able as no beds available. Permission to proceed with [facility]. CM did also place call to HCPOA Jenise Barnes. Left v mail with phone [employer] planning assistant w call back number. Sujatha Huffman will continue to attempt to reach brother Jenise to update. [facility] [phone] Cm received notification by [facility] that insurance approval was received for admission to [facility]. Chart reviewed VSS CM completed NARESH. Messaged RN and attending for Orders/naresh completion and Tasked for cot transportation. [facility] BASIC METABOLIC PANELon 08-2 Anion gap [Moles/Vol] 5 mmol/L Normal 3-13 [facility] Comment on above: Performed By: #### L AB20, LAB15 ####Mold Parter: MIGDALIA JOHNSON ([phone])[facility] ([facility] [place] [address] Calcium [Mass/Vol] 8.2 mg/dL Low 8.8-10.0 [facility] Comment on above: Performed By: #### L AB20, LAB15 ####Mold Parter: MIGDALIA JOHNSON ([id number])[facility] [place] ([facility])[address] Chloride [Moles/Vol] 110 mmol/L High 98-107 [facility] Comment on above: Performed By: #### L AB20, LAB15 ####Mold Parter: MIGDALIA ESCALONAVASILIY ([id number])[facility] [place] ([facility])[address] CO2 [Moles/Vol] 23 mmol/L Normal 23-31 [facility] Comment on above: Performed By: #### L AB20, LAB15 ####Mold Parter: MIGDALIA ESCALONAVASILIY ([id number])[facility] ([facility])[address] Creatinine [Mass/Vol] 0.68 mg/dL Normal 0.57-1.11 [facility] Comment on above: Performed By: #### L AB20, LAB15 ####Mold Parter: MIGDALIA JOHNSON ([id number])[facility] ([facility])[address] GLOMERULAR FILTRATION RATE ML/MIN/1.73 SQ M.PREDICTED >90.0 Normal >60.0 [facility] Comment on above: Result Comment: Calc ulation based on the Chronic Kidney Disease Epidemiology Collaboration (CKD-EPI) equation refit without adjustment for race Performed By: #### L AB20, LAB15 ####Mold Parter: MIGDALIA JOHNSON ([id number])[facility] [place] ([facility])[address] [place] [address] [place] Glucose [Mass/Vol] 92 mg/dL Normal 82-115 [facility] Comment on above: Performed By: #### L AB20, LAB15 ####Mold Parter: MIGDALIA JOHNSON ([id number])[facility] [place] ([facility])[address] [place] [address] [place] Potassium [Moles/Vol] 4.6 mmol/L Normal 3.5-5.1 [facility] Comment on above: Result Comment: [facility] potassium values may be up to 0.5 mmol/L lower than serum values. Performed By: #### L AB20, LAB15 ####Mold Parter: MIGDALIA JOHNSON ([id number])[facility] ([facility])[address] Sodium [Moles/Vol] 138 mmol/L Normal 136-145 [facility] Comment on above: Performed By: #### L AB20, LAB15 ####Mold Parter: MIGDALIA ESCALONAVASILIY ([id number])[facility] ([facility])[address] Urea nitrogen [Mass/Vol] 17 mg/dL Normal 9-23 [facility] Comment on above: Performed By: #### L AB20, LAB15 ####Mold Parter: MIGDALIA ESCALONAVASILIY ([id number])[facility] ([facility])[address] [place] [address] Basic metabolic 1998 panelon 04-23-2025 Anion gap [Moles/Vol] 5 mmol/L 3 - 13 mmol/L [facility] Calcium [Mass/Vol] 8.2 mg/dL Low 8.8 - 10. 0 mg/dL [facility] Chloride [Moles/Vol] 110 mmol/L High 98 - 10 7 mmol/L [facility] CO2 [Moles/Vol] 23 mmol/L 23 - 31 mmol/L [facility] Creatinine [Mass/Vol] 0.68 mg/dL 0.57 - 1.11 mg/dL [facility] GFR/1.73 sq M.predicted (S/P/Bld) [Vol rate/Area] - PINF [facility] Comment on above: Calculation based on the Chronic Kidney Disease Epidemiology Collaboration (CKD-EPI) equation refit without adjustment for race Glucose [Mass/Vol] 92 mg/dL 82 - 115 mg/dL [facility] Interpretation and review of laboratory results Abnormal [facility] Potassium [Moles/Vol] 4.6 mmol/L 3.5 - 5.1 mmol/L [facility] Comment on above: Plasma potassium dylon ues may be up to 0.5 mmol/L lower than serum values. Sodium [Moles/Vol] 138 mmol/L 136 - 145 mmol/L [facility] Urea nitrogen [Mass/Vol] 17 mg/dL 9 - 23 mg/d L [facility] CBC W Auto Differential pane l (Bld)on 04-23-2025 Basophils (Bld) [#/Vol] 0 10*3/uL 0.0 - 0.2 10*3/uL [facility] Basophils/100 WBC (Bld) 0.4 % 0.0 - 2.0 % [facility] Eosinophils (Bld) [#/Vol] 0.2 10*3/uL 0. 0 - 0.5 10*3/uL [facility] Eosinophils/100 WBC (Bld) 2.4 % 0.0 - 6.0 % [facility] Erythrocyte distribution width (RBC) [Ratio] 13.5 % 11.5 - 15.0 % [facility] Hematocrit (Bld) [Volume fraction] 30.8 % Low 35.0 - 47.0 % [facility] Hemoglobin (Bld) [Mass/Vol] 9.9 g/dL Low 11.7 - 16.0 g/dL [facility] Immature granulocytes (Bld) [#/Vol] 0 10*3/uL NINF - 0.1 10*3/uL [facility] Immature granulocytes/100 WBC (Bld) 0.1 % 0.0 - 2.0 % [facility] Interpretation and review of laboratory results Abnormal [facility] th Lymphocytes (Bld) [#/Vol] 0.9 10*3/uL Low 1. 0 - 4.3 10*3/uL [facility] Lymphocytes/100 WBC (Bld) 12 % Low 15 .0 - 45.0 % [facility] MCH (RBC) [Entitic mass] 29.7 pg 26. 0 - 34.[address] [facility] MCHC (RBC) [Mass/Vol] 32.1 % 30.5 - 36.0 % [facility] MCV (RBC) [Entitic vol] 92.5 fL 77.0 - 99.[address] [facility] Monocytes (Bld) [#/Vol] 0.7 10*3/uL 0.0 - 0.9 10*3/uL [facility] Monocytes/100 WBC (Bld) 8.9 % 5.0 - 13.0 % [facility] Neutrophils (Bld) [#/Vol] 6 10*3/uL 1. 8 - 7.5 10*3/uL [facility] Neutrophils/100 WBC (Bld) 76.2 % 38 .0 - 82.0 % [facility] Nucleated RBC/100 WBC (Bld) [Ratio] 0 % [facility] Platelet mean volume (Bld) [Entitic vol] 9.5 fL 9.0 - 12.[address] [facility] Platelets (Bld) [#/Vol] 126 10*3/uL Low 140 - 440 10*3/uL [facility] RBC (Bld) [#/Vol] 3.33 10*6/uL Low 3.80 - 5.2 0 10*6/uL [facility] WBC (Bld) [#/Vol] 7.8 10*3/uL 3.6 - 10.7 10*3/uL [facility] CBC WITH AUTO DIFFERENTIALon 04-23-2025 Basophils (Bld) [#/Vol] 0.0 10*3/uL Normal 0.0-0.2 [facility] Comment on above: Performed By: #### L [id number] ####Mold Parter: MIGDALIA JOHNSON ([id number])[facility] ([facility])[address] [place] [address] Basophils/100 WBC (Bld) 0.4 % Normal 0.0-2.0 [facility] Comment on above: Performed By: #### L [id number] ####Mold Parter: MIGDALIA JOHNSON ([id number])[facility] ([facility])[address] Eosinophils (Bld) [#/Vol] 0.2 10*3/uL Normal 0.0-0.5 [facility] Comment on above: Performed By: #### L [id number] ####Mold Parter: MIGDALIA JOHNSON ([id number])[facility] ([facility])[address] Eosinophils/100 WBC (Bld) 2.4 % Normal 0.0-6.0 [facility] Comment on above: Performed By: #### L [id number] ####Mold Parter: MIGDALIA LINTONCARTER ([id number])[facility] [place] [address] Erythrocyte distribution width (RBC) [Ratio] 13.5 % Normal 11.5-15.0 [facility] Comment on above: Performed By: #### L [id number] ####Mold Parter: MIGDALIA LINTONCARTER ([id number])[facility] Hematocrit (Bld) [Volume fraction] 30.8 % Low 35.0-47.0 [facility] Comment on above: Performed By: #### L [id number] ####Mold Parter: MIGDALIA ALEX ([id number])[facility] ([facility])[address] [place] [address] Hemoglobin (Bld) [Mass/Vol] 9.9 g/dL Low 11.7-16.0 [facility] Comment on above: Performed By: #### L [id number] ####Mold Parter: MIGDALIA JOHNSON ([id number])[facility] ([facility])[address] [place] [address] IMMATURE GRANS % 0.1 % Normal 0.0-2.0 [facility] Comment on above: Performed By: #### L [id number] ####Mold Parter: MIGDALIA LINTONCARTER ([id number])[facility] ([facility])[address] [place] [address] IMMATURE GRANS ABSOLUTE 0.0 10*3/uL Normal <0.1 [facility] Comment on above: Performed By: #### L [id number] ####Mold Parter: MIGDALIA JOHNSON ([id number])[facility] [place] [address] Lymphocytes (Bld) [#/Vol] 0.9 10*3/uL Low 1.0-4.3 [facility] Comment on above: Performed By: #### L [id number] ####Mold Parter: MIGDALIA ESCALONAMonicaCARTER ([id number])[facility] ([facility])[address] Lymphocytes/100 WBC (Bld) 12.0 % Low 15.0-45.0 [facility] Comment on above: Performed By: #### L [id number] ####Mold Parter: MIGDALIA LINTONCARTER ([id number])[facility] ([facility])[address] MCH (RBC) [Entitic mass] 29.7 pg Normal 26.0-34.0 [facility] Comment on above: Performed By: #### L [id number] ####Mold Parter: MIGDALIA ESCALONAMonicaCARTER ([id number])[facility] ([facility])[address] MCHC 32.1 % Normal 30.5-36.0 [facility] Comment on above: Performed By: #### L [id number] ####Mold Parter: MIGDALIA LINTONCARTER ([id number])[facility] ([facility])[address] MCV (RBC) [Entitic vol] 92.5 fL Normal 77.0-99.0 [facility] Comment on above: Performed By: #### L [id number] ####Mold Parter: MIGDALIA JOHNSON ([id number])[facility] ([facility])[address] Monocytes (Bld) [#/Vol] 0.7 10*3/uL Normal 0.0-0.9 [facility] Comment on above: Performed By: #### L [id number] ####Mold Parter: MIGDALIA JOHNSON ([id number])[facility] ([facility])[address] Monocytes/100 WBC (Bld) 8.9 % Normal 5.0-13.0 [facility] Comment on above: Performed By: #### L [id number] ####Mold Parter: MIGDALIA ESCALONAMonicaCARTER ([id number])[facility] [place] ([facility])[address] NEUTROPHILS ABSOLUTE 6.0 10*3/uL Normal 1.8-7.5 [facility] Comment on above: Performed By: #### L [id number] ####Mold Parter: MIGDALIA ESCALONAVASILIY ([id number])[facility] [place] ([facility])[address] Neutrophils/100 WBC (Bld) 76.2 % Normal 38.0-82.0 [facility] Comment on above: Performed By: #### L [id number] ####Mold Parter: MIGDALIA ALEX ([id number])[facility] [place] ([facility])[address] [place] [address] NRBC 0.0 /100 WBCs Normal 0.0-2.0 [facility] Comment on above: Performed By: #### L [id number] ####Mold Parter: MIGDALIA ALEX ([id number])[facility] [place] ([facility])[address] Platelet mean volume (Bld) [Entitic vol] 9.5 fL Normal 9.0-12.7 [facility] Comment on above: Performed By: #### L [id number] ####Mold Parter: MIGDALIA LINTONCARTER ([id number])[facility] [place] ([facility])[address] Platelets (Bld) [#/Vol] 126 10*3/uL Low 140-440 [facility] Comment on above: Performed By: #### L [id number] ####Mold Parter: MIGDALIA ESCALONAVASILIY ([id number])[facility] [place] ([facility])[address] RBC (Bld) [#/Vol] 3.33 10*6/uL Low 3.80-5.20 [facility] Comment on above: Performed By: #### L [id number] ####Mold Parter: MIGDALIA ESCALONALILLYCARTER ([id number])[facility] BAUMANNLuis E ([facility])[address] WBC (Bld) [#/Vol] 7.8 10*3/uL Normal 3.6-10.7 [facility] Comment on above: Performed By: #### L [id number] ####Mold Parter: MIGDALIACATHI ESCALONAMonicaCARTER ([id number])[facility]ILITY[facility]is E ([facility])[address] Consulton 04-23-2025 Consult [employer] Geriatric Medicine Inpatient Consult Service Admission Date: 04/19/2025 Admission Status: INPATIENT Chief Complaint: fall Reason for Appointment Geriatrics consulted for Polypharmacy and falls Assessment & Plan Principal Problem: Closed nondisplaced intertrochanteric fracture of right femur, initial encounter ([facility]) Active Problems: Debility Acute pain due to trauma Bipolar 1 disorder ([facility]) At risk for delirium Debility -Contributing factors include: physical deconditioning, parkinsonism, polypharmacy, baseline poor balance -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 She saw Neurology for this in 2022. -Lives in an assisted living -Check orthostatics -consider checking vitamin D as outpatient -Physical Therapy and Occupational Therapy -planning for SNF for rehab prior to discharge back to assisted living. Planning on discharge today Acute Pain Due To Trauma -Could consider scheduling acetaminophen 1000 mg TID. Would check hepatic function before scheduling however -Agree with use of prn narcotic oxycodone for pain. Use lowest effective doses for breakthrough pain. -Consider stopping the prn robaxin unless she has specific muscle spasm complaints. Bipolar Disorder Reviewed her AL medication list: -Abilify 5 mg daily -Bupropion XL 300 mg daily -Prozac 60 mg daily -Lamotrigine 50 mg daily -Invega 39 mg IM monthly on the 6th of the month -Continue above psychiatric medication regimen. 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 Will stop At Risk for Delirium -Risk factors include: age, pain, recent hip fracture -Could use Melatonin nightly prn insomnia if necessary -Avoid sedating/anticholine rgic medications -Encourage family visits -Encourage sleep hygiene -Minimize barriers to nutrition -Optimize sensory input and access to assistive devices where indicated -Encourage time up in chair - including at meals - as able -Unless contraindicated, encourage regular ambulation with assistance -D/c Ellsworth, restraints, IV lines, as able Subjective: HPI 74 y.o. year-old female with past medical history of Bipolar 1 Disorder, chronic kidney disease, asthma, hypertension, ascending aortic aneurysm, anxiety/depression who presented to hospital following a fall with right hip fracture I reviewed patient's chart, including H&P and multiple progress notes. The following is a summary. -Per H and P, she was standing in the bathroom and looking at the mirror when she fell. She reported chronic balance issues. -She underwent intramedullary nailing of right femur on 04/21/25. -She lives in an assisted living "[facility]". She has been there for about three years. She ambulates short distances with a walker. Uses a wheelchair to get down to the dining room at her assisted living. She requires assistance with showering (washing hair and back) as well as putting shoes/socks CBC: hgb 9.9 BMP: chloride 110 Geriatrics ED screen: Do you (or your loved one) have problems with your memory that affect your (their) day to day activities or that you or your family notice most days?: No Do you (or loved one) live alone AND/OR Do you (they) need more help at home then you (they) have now or currently available?: No Have you (or loved one) been in the hospital in the last 3 months?: No Do you (or loved one) have trouble with your walking or balance? Or Have you (they) fallen recently?: Yes Do you (or loved one) take more than 5 medications or vitamins every day?: Yes When compared to others your (their) own age, are you (or loved one) in worse health?: No Total Score: 2 Quick Cognitive Screen (QCS): Nursing Delirium Screen (Nu-Desc): Nursing Delirium Symptom Checklist Total Score: 0 Conversation with patient: -She reports the fall occurred at her assisted living. She is supposed to ask for help before she goes to the restroom. However, she admits to not asking for help that time. She was standing in front of the mirror when she lost her balance and fell. She doesn't think she was dizzy at time of the fall. -Neuropathy: fingers -Vision: good. Wears glasses -History of medication-induced parkinsonism. She was told she should not change her psychiatric medications despite of this -Memory: she occasionally notices a memory slip - such as forgetting a single word. She typically usually recalls it -Mood: good -No smoking or alcohol use -Lives in an assisted living. They assist with IADLs and multiple ADLs. -She ambulates short distances with a walker. She is able to ambulate about half way to the dining room before using her wheelchair (someone follows along behind her with the wheelchair) Conversation wi (more content not included)... Normal [facility] HEPATIC FUNCTION PANELon Albumin [Mass/Vol] 2.5 g/dL Low 3.4-4.8 [facility] Comment on above: Performed By: #### L AB20, LAB15 ####Mold Parter: MIGDALIA JOHNSON ([id number])[facility] ([facility])[address] [place] [address] ALP [Catalytic activity/Vol] 56 U/L Normal 40-150 [facility] Comment on above: Performed By: #### L AB20, LAB15 ####Mold Parter: MIGDALIA JOHNSON ([id number])[facility] ([facility])[address] ALT [Catalytic activity/Vol] 26 U/L Normal <30 [facility] Comment on above: Performed By: #### L AB20, LAB15 ####Mold Parter: MIGDALIA JOHNSON ([id number])[facility] ([facility])[address] [place] [address] AST [Catalytic activity/Vol] 47 U/L High <34 [facility] Comment on above: Performed By: #### L AB20, LAB15 ####Mold Parter: MIGDALIA JOHNSON ([id number])[facility] ([facility])[address] Bilirubin [Mass/Vol] 0.6 mg/dL Normal <1.2 [facility] Comment on above: Performed By: #### L AB20, LAB15 ####Mold Parter: MIGDALIA JOHNSON ([id number])[facility] ([facility])[address] [place] [address] Bilirubin.indirect [Mass/Vol] 0.3 mg/dL Normal <0.5 [facility] Comment on above: Performed By: #### L AB20, LAB15 ####Mold Parter: MIGDALIA ALEX ([id number])[facility] ([facility])[address] [place] [address] Protein [Mass/Vol] 5.0 g/dL Low 6.4-8.3 [facility] Comment on above: Result Comment: Seru m protein values are higher than plasma values. Samples from recumbent persons are lower by up to 0.5 g/dL as compared to ambulatory persons. After 60 years values are lower by up to 0.2 g/dL. Performed By: #### L AB20, LAB15 ####Mold Parter: MIGDALIA ALEX ([id number])[facility] ([facility])[address] [place] [address] Hepatic function 2000 panelo n 04-23-2025 Albumin [Mass/Vol] 2.5 g/dL Low 3.4 - 4.8 g/dL [facility] ALP [Catalytic activity/Vol] 56 U/L 40 - 150 U/L [facility] ALT [Catalytic activity/Vol] 26 U/L NINF - 30 U/L [facility] AST [Catalytic activity/Vol] 47 U/L High NINF - 34 U/L [facility] Bilirubin [Mass/Vol] 0.6 mg/dL [facility] - 1.2 mg/dL [facility] Bilirubin.conjugated [Mass/Vol] 0.3 mg/dL [facility] - 0.5 mg/dL [facility] Interpretation and review of laboratory results Abnormal [facility] Protein [Mass/Vol] 5 g/dL Low 6.4 - 8.3 g/dL [facility] Comment on above: Serum protein values are higher than plasma values. Samples from recumbent persons are lower by up to 0.5 g/dL as compared to ambulatory persons. After 60 years values are lower by up to 0.2 g/dL. [facility] Progress Noteon 04-23-2025 Progress Note Physician Response Please review the following and provide your response below. Please clarify which of the following accurately describes the patient's lab value: Metabolic acidosis This documentation will become part of the patient's medical record. Normal [facility] Progress Note PHYSICAL THERAPY [facility] Treatment Note Name/MRN: Pily Barnes ([id number]) Date of : 1950 Age: 74 y.o. Room/Bed: B1-157/B1-157 A Visit #: 1 out of 7 visits Discharge Recommendation: Intermediate Facility Equipment Needed: (TBD at next level of care) Prior Level of Function Prior Level of ADL Function: Required Assist Prior Level of Mobility: Required Assist; Device: Front wheeled walker Prior Level of Transfers: Required Assist Assessment Pt demonstrates decreased functional mobility with small progression towards goals established. Pt limited by reports of dizziness and nausea during activity. Pt continues to require MAX A to complete bed mobility but was able to maintain sitting in balance with close SBA but tendency to lean to the L. Exercises performed with need for assist to mobilize and encourage ROM. Pt will continue to benefit from current recommendation to further improve strength and functional mobility Subjective Pt agreeable to therapy. Observation PIV intact, pure wick intact, nasal canula intact Vitals Vitals Heart Rate: 76 SpO2: 94 % Heart Rate Source: Monitor BP: 110/61 MAP (mmHg): 77 Pain: 0-10 pain scale: 0/10 pre and 2 post treatment Location: R hip Medical Precautions: No active isolations Proper PPE donned/doffed in accordance with facility standards. Fall Risk: Norman Fall Risk Score: 60 (Medium Risk) Norman Fall Risk Score: 60 (High Risk) Precautions/Restrict ions: Right LE Weight Bearing: Weight Bearing As Tolerated Overall Cognitive Status: Exceptions - Following commands: follows one step commands with increased time and follows one step commands with repetition - Problem solving: assistance required to identify errors made and assistance required to correct errors made - Insights: decreased awareness of deficits - Initiation: requires cues for all - Sequencing: requires cues for all Overall Orientation Status: Oriented to Place, Oriented to Situation, and Oriented to Person Family/Caregiver Present: none Objective Bed Mobility Supine to sit: Max Assist Sit to supine: Max Assist Scooting: Dependent Pt requires cueing for technique and sequencing to complete transition to sitting with assist to maneuver LE's and hips and then to elevate trunk from bed with elevated head. Use of draw pad needed to find center of balance. Pt demonstrated ability to maintain sitting at EOB with tendency to lean to the L. Pt would make attempts to correct with cueing but maintained for short periods of time. Pt performed R reaching tasks to encourage weight shifting. Pt sat for 6 minutes before needing to return to sitting with reports of nausea. Pt requires MAX A to guide trunk and elevate B LE's onto bed with MAX/dependent assist to reposition in middle of bed and then to be scooted to HOB. Balance During Session: Posture: poor - rounded Sitting - Static: SBA Sitting - Dynamic: SBA Exercises Exercises Straight Leg Raise: 1 set / 10 reps in supine B LE with assist B LE Quad Sets: 1 set / 10 reps in supine B LE with weak contraction Heelslides: 1 set / 10 reps in supine B LE with assist to encourage increased ROM B LE Gluteal Sets: 1 set / 10 reps in supine Hip Abduction: 1 set / 10 reps in supine B LE with assist to guide movement with limited ROM B LE Ankle Pumps: 1 set / 10 reps in supine B LE with limited range barely to neutral Comments: Exercises initiated with pt requiring assist to perform with quad firing present but weak and minimal range B LE's. Exercises performed to improve strength and activity tolerance for mobility with fair teach back. Pt would require breaks due to either c/o dizziness or nausea while lying that would resolve. Cueing provided for breathing techniques with activity. Plan Continue acute PT per plan of care. Safety/Education Safety Safety Devices in place: All fall risk precautions in place, call light within reach, left in bed, and patient at risk for falls Restraints: No Education Education Given To: patient Education Provided: PT Role, PT Goals, Plan of Care, and Home Exercise Program Education Method: Verbal, Demonstration, Teach Back, and Printed Information Barriers to Learning: Cognition Education Outcome: Continued Education Needed Outcome Measures AM-PAC AM-PAC Inpatient Mobility Raw Score (No Stairs) : 7 JH-HLM -HLM Score: Sat at edge of bed Goals Patient Stated Goal: pt did not state Encounter Problems Encounter Problems (Active) Exercise Patient will complete lower extremity exercises for 1-2 sets / 5-10 reps in order to improve strength and activity tolerance for mobility. (Progressing) Start: 04/22/25 Expected End: 04/29/25 Mobility Patient will ambulate 10 feet with min assist and rolling walker in order to improve safety and independence with mobility. (Not Addressed) Start: 04/22/25 Expected End: 04/29/25 Tr (more content not included)... Normal [facility] Progress Note Adult Hip and Knee Reconstruction Service Patient Name: Pily Barnes Date of : 1950 Date: 04/23/25 Assessment: s/p Right CMN on 04/19/2025 doing well Plan: -Weight bearing: WBAT -Consults: none -Antibiotics: Abx 24hrs post-op -Dressings: Keep bandage clean dry and intact for 7-10 days post operatively, then ok to leave open to air if incision is without drainage -Diet: no restrictions from ortho standpoint -Continue PT/OT -Pain control -Ice and elevate -DVT prophylaxis: lovenox/SCDs -DC planning: [facility] p -Ortho signing off, please page catalyst concentration operator resident with questions or concerns. Subjective: Overall patient is doing well this morning. Pain is better and well controlled with pain medication. Patient has been up to the bathroom. Reports voiding without difficulty. continue PT/OT today. No new complaints. Medications: Scheduled Meds[1] Physical Exam: Vitals: 04/23/25 0841 BP: 110/61 Pulse: 76 Resp: Temp: SpO2: 94% Intake and Output Summary (Last 24 hours) at Date Time Intake/Output Summary (Last 24 hours) at 04/23/2025 1025 Last data filed at 04/23/2025 0646 Gross per 24 hour Intake -- Output 750 ml Net -750 ml General appearance - no acute distress Musculoskeletal - Dressing C/D/I Fires quad/TA/EHL/GSC SILT SP/DP/TN WWP distally Posterior tibial pulse 2+ bilaterally Calves soft, nontender bilateral. No edema, erythema or warmth noted to calves. Labs: Lab Results Component Value Date HGB 9.9 (L) 04/23/2025 , Lab Results Component Value Date WBC 7.8 04/23/2025 HGB 9.9 (L) 04/23/2025 HCT 30.8 (L) 04/23/2025 MCV 92.5 04/23/2025 PLT 126 (L) 04/23/2025 , Lab Results Component Value Date GLUCOSE 92 04/23/2025 CALCIUM 8.2 (L) 04/23/2025 NA 138 04/23/2025 K 4.6 04/23/2025 CO2 23 04/23/2025 CL 110 (H) 04/23/2025 BUN 17 04/23/2025 CREATININE 0.68 04/23/2025 , No results found for: "CRP", "CREACTIVEPRO" , and No results found for: "SEDRATE", SEDRATEBYMOD Rads: Radiological Procedure reviewed. Signed by: Sherry Enriquez PA-C [1] amLODIPine, 2.5 mg, Oral, Daily ARIPiprazole, 5 mg, Oral, Daily buPROPion XL, 300 mg, Oral, Daily enoxaparin, 40 mg, SubCUTAneous, Daily FLUoxetine, 60 mg, Oral, Daily lamoTRIgine, 50 mg, Oral, Daily losartan, 100 mg, Oral, Daily mometasone-formotero l, 2 puff, Inhalation, BID rosuvastatin, 20 mg, Oral, Nightly Normal [facility] XR PELVIS 1-2 VIEWSon 2024 XR PELVIS 1-2 VIEWS Patient Name: PILY BARNES : 1950 [facility]#: [id number] Exam Date/Time: 04/21/2025 15:15 Procedure: XR PELVIS 1-2 VIEWS Ordering Provider: ENRIQUEZ BRITTANY Reason For Exam: post-op hip CLINICAL INFORMATION: Right hip pain and swelling. Fracture. ORIF. AP views of the pelvis and right hip are provided. The examination is compared to a previous study dated 04/19/2025. FINDINGS: An acute intertrochanteric hip fracture is redemonstrated on the right. An intramedullary kermit is now in place. Two large screws affix the femoral neck. The right femur is now in near-anatomic alignment. IMPRESSION: 1. Acute right intertrochanteric fracture. 2. ORIF. 3. The right hip is now in near-anatomic alignment. Report Dictated on Electronically Signed By: Kain Gonzales MD Electronically Signed Date/Time: 04/23/2025 9:33 PM EDT S/P RIGHT HIP NAIL Normal [facility] XR Pelvis 1 or 2 Viewson 1. Acute right intertrochanteric fracture. 2. ORIF. 3. The right hip is now in near-anatomic alignment. Report Dictated on Electronically Signed By: Kain Gonzales MD Electronically Signed Date/Time: 04/23/2025 9:33 PM EDT [facility] Patient Name: PILY BARNES : 1950 Exam Date/Time: 04/21/2025 15:15 Procedure: XR PELVIS 1-2 VIEWS Ordering Provider: ENRIQUEZ BRITTANY Reason For Exam: post-op hip CLINICAL INFORMATION: Right hip pain and swelling. Fracture. ORIF. AP views of the pelvis and right hip are provided. The examination is compared to a previous study dated 04/19/2025. FINDINGS: An acute intertrochanteric hip fracture is redemonstrated on the right. An intramedullary kermit is now in place. Two large screws affix the femoral neck. The right femur is now in near-anatomic alignment. [facility] Kain Gonzales MD - 04/23/2025 Patient Name: PILY BARNES : 1950 Exam Date/Time: 04/21/2025 15:15 Procedure: XR PELVIS 1-2 VIEWS Ordering Provider: ENRIQUEZ BRITTANY Reason For Exam: post-op hip CLINICAL INFORMATION: Right hip pain and swelling. Fracture. ORIF. AP views of the pelvis and right hip are provided. The examination is compared to a previous study dated 04/19/2025. FINDINGS: An acute intertrochanteric hip fracture is redemonstrated on the right. An intramedullary kermit is now in place. Two large screws affix the femoral neck. The right femur is now in near-anatomic alignment. IMPRESSION: 1. Acute right intertrochanteric fracture. 2. ORIF. 3. The right hip is now in near-anatomic alignment. 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 Mckee from [facility] I Seen in last 2 years?: Yes Primary Caregiver: (AL attendants assist with ADLS/Sons assist with Financials/HCPOA) If assistance needed, confirmed caregiver ready, willing and able to care for patient at discharge: Confirmed with: Living Arrangements Current Residence: Number of Floors 1 Number of Entry Steps: 1 Bed/Bath Levels: Both first floor Facility: Assisted Living Facility Name: [facility] Plan to Return: Lives with: Alone Support Systems: Children, Comments (Other) (attendants at [facility]) Activities of Daily Living Ambulation: Assistance (walker short dist. to wheelchair) Bathing/Dressing: Assistance (pt requires assist with hair and back / Socks and shoes) Elimination/Continen ce/Toileting: Assistance (depends) Feeding: Independent Who Assists with Activities of Daily Living: AL staff Instrumental Activities of Daily Living Prescription Coverage: Yes Pharmacy Used: [facility] Medication Management: (nursing administers medications) Transportation/Shopp ing: Assistance Provider Transportation/Shopp ing Assistance Provider Name: family/ AL Transportation Mode: Car Needs Assistance with Transportation at Discharge: Yes Meal Preparation: Assistance Provider Meal Prep Assistance Provider Name: [facility] staff Laundry/Cleaning: Assistance Provider Laundry/Cleaning Assistance Provider Name: [facility] Staff/Family Finances/Bill Paying: Assistance Provider Finances/Bill Payer Assistance Provider Name: reynaldo Communication: Independent Types of Care Services/Equipment Utilized Care Services: Dialysis Type: NA Durable Medical Equipment: Walker, Wheelchair (standard or power) DME Provider: owns and facility based Patient's Goal/Discharge Plan Patient expects to be discharged to: Discharge Planning Actions: Continue to follow, Intermediate Facility referral indicated [place] choice: [place] of [place] discussed, Choice list provided Patient's Choice Rights and [employer] and Collaborative Relationships Disclosed as Indicated for Post-Acute Care: Yes Interdisciplinary Team Engagement: PT/OT, Home Health Care Social Work Referral for: Additional Information: Pt admitted to hospital s/p slip and fall in bathroom of [facility]. Diagnosed via x ray/CT w acute R IT femur fracture. S/p surgical intervention 04/21/[address] Carlos Beverly. Underwnt IM nailing w general anesthesia. Ellsworth removed and pt voiding per nursing. CM met with pt and her son Nathanael at bedside. Nathanael assisting with ordering pt's lunch. Pt pleasant talkative answered most of the questions during IA. CM did introduce self and role. Pt reports being at [facility] for aprox. 3 years. Pt ambulates with walker short distances and transitions to when ambulating to dinning room twice a day. Pt reports she needs assist for hair washing and her back. Assist needed also for application of socks and shoes. Insurance verified [facility] Medicare and pt follows with Dr. Mkcee at [facility] HCPOA is Claudia/Jenise Barnes. Therapy recommendations reviewed and SNF list presented to pt and sone. CM tasked SKIP TRACER to place referrals to pt and family selections: [facility] 2nd and [facility] 3rd. Awaiting acceptance. DCP: SNF when accepted and approved. CM following. Angel Luis Matos RN Normal [facility] BASIC METABOLIC PANELon 08- Anion gap [Moles/Vol] 6 mmol/L Normal 3-13 [facility] Comment on above: Performed By: #### L AB15 ####Mold Parter: MIGDALIA JOHNSON ([id number])[facility] Calcium [Mass/Vol] 8.5 mg/dL Low 8.8-10.0 [facility] Comment on above: Performed By: #### L AB15 ####Mold Parter: MIGDALIA JOHNSON ([id number])[facility])[address] Chloride [Moles/Vol] 109 mmol/L High 98-107 [facility] Comment on above: Performed By: #### L AB15 ####Mold Parter: MIGDALIA JOHNSON ([id number])[facility])[address] CO2 [Moles/Vol] 22 mmol/L Low 23-31 [facility] Comment on above: Performed By: #### L AB15 ####Mold Parter: MIGDALIA JOHNSON ([id number])[facility] ([facility])[address] Creatinine [Mass/Vol] 0.75 mg/dL Normal 0.57-1.11 [facility] Comment on above: Performed By: #### L AB15 ####Mold Parter: MIGDALIA JOHNSON ([id number])[facility] ([facility])[address] GLOMERULAR FILTRATION RATE ML/MIN/1.73 SQ M.PREDICTED 83.7 mL/min/1.73m*2 Normal >60.0 [facility] Comment on above: Result Comment: Calc ulation based on the Chronic Kidney Disease Epidemiology Collaboration (CKD-EPI) equation refit without adjustment for race Performed By: #### L AB15 ####Mold Parter: MIGDALIA JOHNSON ([id number])[facility])[address] [place] [address] [place] Glucose [Mass/Vol] 158 mg/dL High 82-115 [facility] Comment on above: Performed By: #### L AB15 ####Mold Parter: MIGDALIA JOHNSON ([id number])[facility] ([facility])[address] Potassium [Moles/Vol] 4.7 mmol/L Normal 3.5-5.1 [facility] Comment on above: Result Comment: [facility] potassium values may be up to 0.5 mmol/L lower than serum values. Performed By: #### L [id number] ####Mold Parter: MIGDALIA JOHNSON ([id number])[facility] (SBHLAB)[address] Sodium [Moles/Vol] 137 mmol/L Normal 136-145 [facility] Comment on above: Performed By: #### L [id number] ####Mold Parter: MIGDALIA JOHNSON ([id number])[facility] (SBHLAB)[address] Urea nitrogen [Mass/Vol] 14 mg/dL Normal 9-23 [facility] Comment on above: Performed By: #### L [id number] ####Mold Parter: MIGDALIA JOHNSON ([id number])[facility] (SBHLAB)[address] [place] [address] Basic metabolic 1998 panelon 04-22-2025 Anion gap [Moles/Vol] 6 mmol/L 3 - 13 mmol/L [facility] Calcium [Mass/Vol] 8.5 mg/dL Low 8.8 - 10. 0 mg/dL [facility] Chloride [Moles/Vol] 109 mmol/L High 98 - 10 7 mmol/L [facility] CO2 [Moles/Vol] 22 mmol/L Low 23 - 31 mmol/L [facility] Creatinine [Mass/Vol] 0.75 mg/dL 0.57 - 1.11 mg/dL [facility] GFR/1.73 sq M.predicted (S/P/Bld) [Vol rate/Area] 83.7 mL/min - PINF [facility] Comment on above: Calculation based on the Chronic Kidney Disease Epidemiology Collaboration (CKD-EPI) equation refit without adjustment for race Glucose [Mass/Vol] 158 mg/dL High 82 - 115 mg/dL [facility] Interpretation and review of laboratory results Abnormal [facility] Potassium [Moles/Vol] 4.7 mmol/L 3.5 - 5.1 mmol/L [facility] Comment on above: Plasma potassium dylon ues may be up to 0.5 mmol/L lower than serum values. Sodium [Moles/Vol] 137 mmol/L 136 - 145 mmol/L [facility] Urea nitrogen [Mass/Vol] 14 mg/dL 9 - 23 mg/d L [facility] CBC W Auto Differential pane l (Bld)on 04-22-2025 Erythrocyte distribution width (RBC) [Ratio] 13.3 % 11.5 - 15.0 % [facility] Hematocrit (Bld) [Volume fraction] 35.3 % 35.0 - 47.0 % [facility] Hemoglobin (Bld) [Mass/Vol] 11.4 g/dL Low 11.7 - 16.0 g/dL [facility] IPF [address] [facility] MCH (RBC) [Entitic mass] 29.7 pg 26. 0 - 34.[address] [facility] MCHC (RBC) [Mass/Vol] 32.3 % 30.5 - 36.0 % [facility] MCV (RBC) [Entitic vol] 91.9 fL 77.0 - 99.[address] [facility] Platelet mean volume (Bld) [Entitic vol] 10 fL 9.0 - 12.[address] [facility] Platelets (Bld) [#/Vol] 134 10*3/uL Low 140 - 440 10*3/uL [facility] RBC (Bld) [#/Vol] 3.84 10*6/uL 3.80 - 5.2 0 10*6/uL [facility] WBC (Bld) [#/Vol] 9.1 10*3/uL 3.6 - 10.7 10*3/uL [facility] CBC WITH AUTO DIFFERENTIALon 04-22-2025 Erythrocyte distribution width (RBC) [Ratio] 13.3 % Normal 11.5-15.0 [facility] Comment on above: Performed By: #### L [id number], [id number] #### [place] Parter: MIGDALIA JOHNSON ([id number]) [facility] ([facility] [address] Hematocrit (Bld) [Volume fraction] 35.3 % Normal 35.0-47.0 [facility] Comment on above: Performed By: #### L [id number], [id number] #### [place] Parter: MIGDALIA JOHNSON ([id number]) [facility] ([facility]) [address] Hemoglobin (Bld) [Mass/Vol] 11.4 g/dL Low 11.7-16.0 [facility] Comment on above: Performed By: #### L [id number], [id number] #### [place] Parter: MIGDALAI JOHNSON ([id number]) [facility] ([facility]) [address] IPF 2 Normal [facility] Comment on above: Performed By: #### L [id number], [id number] #### [place] Parter: MIGDALIA JOHNSON ([id number]) [facility] ([facility]) [address] MCH (RBC) [Entitic mass] 29.7 pg Normal 26.0-34.0 [facility] Comment on above: Performed By: #### L [id number], [id number] #### [place] Parter: MIGDALIA JOHSNON ([id number]) [facility] ([facility]) [address] MCHC 32.3 % Normal 30.5-36.0 [facility] Comment on above: Performed By: #### L [id number], [id number] #### Mold Parter: MIGDALIA JOHNSON ([id number]) [facility] ([facility]) [address] MCV (RBC) [Entitic vol] 91.9 fL Normal 77.0-99.0 [facility] Comment on above: Performed By: #### L [id number], [id number] #### [place] Parter: MIGDALIA JOHNSON ([id number]) [facility] (SB[facility]AB) [address] Platelet mean volume (Bld) [Entitic vol] 10.0 fL Normal 9.0-12.7 [facility] Comment on above: Performed By: #### L [id number], [id number] #### [place] Parter: MIGDALIA JOHNSON ([id number]) [facility] ([facility]) [address] Platelets (Bld) [#/Vol] 134 10*3/uL Low 140-440 [facility] Comment on above: Performed By: #### L [id number], [id number] #### Mold Parter: MIGDALIA JOHNSON ([id number]) [facility] ([facility]) [address] RBC (Bld) [#/Vol] 3.84 10*6/uL Normal 3.80-5.20 [facility] Comment on above: Performed By: #### L [id number], [id number] #### Mold Parter: MIGDALIA JOHNSON ([id number]) [facility] ([facility]) [address] WBC (Bld) [#/Vol] 9.1 10*3/uL Normal 3.6-10.7 [facility] Comment on above: Performed By: #### L [id number], [id number] #### [place] Parter: MIGDALIA JOHNSON ([id number]) [facility] ([facility]) [address] Laboratory - Chemistry and C hemistry - challengeon 04-22-2025 Glucose [Mass/Vol] 177 mg/dL High 70 - 100 mg/dL [facility] Laboratory - Hematology and Cell countson 04-22-2025 Band form neutrophils (Bld) [#/Vol] 0.3 10*3/uL High NINF - 0.0 10*3/uL [facility] Band form neutrophils/100 WBC (Bld) 3 % High NINF - 0 % [facility] Lymphocytes (Bld) [#/Vol] 0.2 10*3/uL Low 1. 0 - 4.3 10*3/uL [facility] Lymphocytes/100 WBC (Bld) 2 % Low 15 - 45 % [facility] Monocytes (Bld) [#/Vol] 0.5 10*3/uL 0.0 - 0.9 10*3/uL [facility] Monocytes/100 WBC (Bld) 5 % 5 - 13 % [facility] Neutrophils (Bld) [#/Vol] 8.5 10*3/uL High 1. 8 - 7.5 10*3/uL [facility] RBC morphology finding Nom (Bld) Normal [facility] Segmented neutrophils/100 WBC (Bld) 90 % High 38 - 82 % [facility] MANUAL DIFFERENTIAL (CELLAVI LEXI)on 04-22-2025 BAND NEUTROPHILS TOTAL PER COUNTED LEUKOCYTES BY MANUAL COUNT 3 Normal [facility] Comment on above: Performed By: #### L [id number], [id number] #### [place] Parter: MIGDALIA JOHNSON ([id number]) [facility] (SBAB) [address] [place] [address] [place] BANDS (10*3/UL) IN BLOOD-CELLAVISION 0.3 10*3/uL High <=0.0 [facility] Comment on above: Performed By: #### L [id number], [id number] #### Mold Parter: MIGDALIA JOHNSON ([id number]) [facility] ([facility]) [address] [place] [address] [place] BASOPHILS TOTAL PER COUNTED LEUKOCYTES BY MANUAL COUNT Normal [facility] Comment on above: Performed By: #### L [id number], [id number] #### [place] Parter: MIGDALIA JOHNSON ([id number]) [facility] ([facility]) [address] [place] [address] [place] BLASTS TOTAL PER COUNTED LEUKOCYTES BY MANUAL COUNT Normal [facility] Comment on above: Performed By: #### L [id number], [id number] #### Mold Parter: MIGDALIA JOHNSON ([id number]) [facility] ([facility]) [address] [place] [address] [place] EOSINOPHILS TOTAL PER COUNTED LEUKOCYTES BY MANUAL COUNT Normal [facility] Comment on above: Performed By: #### L [id number], [id number] #### [place] Parter: MIGDALIA JOHNSON ([id number]) [facility] ([facility] [address] [place] [address] [place] LYMPHOCYTES (10*3/UL) IN BLOOD-CELLAVISION 0.2 10*3/uL Low 1.0-4.3 [facility] Comment on above: Performed By: #### L [id number], [id number] #### Mold Parter: MIGDALIA JOHNSON ([id number]) [facility] ([facility]) [address] [place] [address] [place] LYMPHOCYTES TOTAL PER COUNTED LEUKOCYTES BY MANUAL COUNT 2 Normal [facility] Comment on above: Performed By: #### L [id number], [id number] #### [place] Parter: MIGDALIA JOHNSON ([id number]) [facility] (HLAB) [address] [place] [address] [place] LYMPHOCYTES/100 LEUKOCYTES IN BLOOD-CELLAVISION 2 % Low 15-45 [facility] Comment on above: Performed By: #### L [id number], [id number] #### [place] Parter: MIGDALIA JOHNSON ([id number]) [facility] (HLAB) [address] [place] [address] [place] METAMYELOCYTES TOTAL PER COUNTED LEUKOCYTES BY MANUAL COUNT Normal [facility] Comment on above: Performed By: #### L [id number], [id number] #### Mold Parter: MIGDALIA JOHNSON ([id number]) [facility] (HLAB) [address] [place] [address] [place] MONOCYTES (10*3/UL) IN BLOOD-CELLAVISION 0.5 10*3/uL Normal 0.0-0.9 [facility] Comment on above: Performed By: #### L [id number], [id number] #### Mold Parter: MIGDALIA JOHNSON ([id number]) [facility] (SBHLAB) [address] [place] [address] [place] MONOCYTES TOTAL PER COUNTED LEUKOCYTES BY MANUAL COUNT 5 Normal [facility] Comment on above: Performed By: #### L [id number], [id number] #### [place] Parter: MIGDALIA DOHERTYCER ([id number]) [facility] (SB[facility]AB) [address] [place] [address] [place] MONOCYTES/100 LEUKOCYTES IN BLOOD-JOVANY 5 % Normal 5-13 [facility] Comment on above: Performed By: #### L [id number], [id number] #### [place] Parter: MIGDALIA DOHERTYCER ([id number]) [facility] ([facility] [address] [place] [address] [place] MYELOCYTES COUNTED BY MANUAL COUNT Normal [facility] Comment on above: Performed By: #### L [id number], [id number] #### [place] Parter: MIGDALIA DOHERTYCER ([id number]) [facility] ([facility]) [address] [place] [address] [place] NEUTROPHILS BAND FORM/100 LEUKOCYTES IN BLOOD-CELLAVISI 3 % High <=0 [facility] Comment on above: Performed By: #### L [id number], [id number] #### Mold Parter: MIGDALIA JOHNSON ([id number]) [facility] ([facility] [address] [place] [address] [place] NEUTROPHILS TOTAL PER COUNTED LEUKOCYTES BY MANUAL COUNT 90 Normal [facility] Comment on above: Performed By: #### L [id number], [id number] #### [place] Parter: MIGDALIA DOHERTYCER ([id number]) [facility] ([facility] [address] [place] [address] [place] PROMYELOCYTES TOTAL PER COUNTED LEUKOCYTES BY MANUAL COUNT Normal [facility] Comment on above: Performed By: #### L [id number], [id number] #### [place] Parter: MIGDALIA DOHERTYCER ([id number]) [facility] ([facility] [address] [place] [address] [place] RBC MORPHOLOGY IN BLOOD Normal Normal [facility] Comment on above: Performed By: #### L [id number], [id number] #### Mold Parter: MIGDALIA JOHNSON ([id number]) [facility] ([facility]) [address] SEGMENTED NEUTROPHILS (10*3/UL) IN BLOOD-CELLAVISION 8.5 10*3/uL High 1.8-7.5 [facility] Comment on above: Performed By: #### L [id number], [id number] #### Mold Parter: MIGDALIA JOHNSON ([id number]) [facility] ([facility]) [address] [place] [address] [place] SEGMENTED NEUTROPHILS/100 LEUKOCYTES-CE 90 % High 38-82 [facility] Comment on above: Performed By: #### L [id number], [id number] #### Mold Parter: MIGDALIA JOHNSON ([id number]) [facility] ([facility]) [address] UNCLASSIFIED CELLS TOTAL PER COUNTED LEUKOCYTES BY MANUAL COUNT [facility] Comment on above: Performed By: #### L [id number], [id number] #### Mold Parter: MIGDALIA JOHNSON ([id number]) [facility] ([facility]) [address] VARIANT LYMPHOCYTES TOTAL PER COUNTED LEUKOCYTES BY MANUAL COUNT [facility] Comment on above: Performed By: #### L [id number], [id number] #### Mold Parter: MIGDALIA JOHNSON ([id number]) [facility] ([facility]) [address] No Panel Informationon 04-22 Interpretation and review of laboratory results Abnormal [facility] Performed by: Richa Mcdonald, [address] [place] [address] CLIA ID: [id number] [facility] Atypical Lymphocytes Manual [facility] Bands Manual 3 [facility] Basophils Manual [facility] Blasts Manual [facility] Eosinophils Manual [facility] Interpretation and review of laboratory results Abnormal [facility] Lymphocytes Manual [address] [facility] Metamyelocytes Manual [facility] Monocytes Manual 5 [facility] He alth Myelocytes Manual [facility] H ealth Neutrophils Manual [address] [facility] Promyelocytes Manual [facility] Unclassified Cells, Manual [facility] Progress Noteon 04-22-2025 Progress Note Attestation signed by Sabas Del Valle OT at 04/22/2025 2:01 PM I certify that I was present during the entire session and guided the care given by the Student Occupational Therapist. Cosign: OCCUPATIONAL THERAPY [facility] Initial Evaluation Name/MRN: Pily Barnes ([id number]) Evaluation Date: 04/22/2025 Date of : 1950 Admission Date: 04/19/2025 3:31 PM Age: 74 y.o. Room/Bed: B1-157/B1-157 A Discharge Recommendation: Intermediate Facility Assessment IMPRESSION: Pt is a 74 y/o F admitted to [facility] d/t a fall in the bathroom resulting in a R femur fracture requiring intramedullary nailing of the R femur, pt is WBAT/ROM as tolerated and on 4L O2. She is not on O2 at baseline and lives in [facility], states that she would walk hallway to dining room and then pushed in wc the rest of the way. Pt participated in bed mobility MAX A, sitting balance MAX A and transfer MAX A, pt unable to take any steps d/t buckling of knees and unable to complete LB dressing tasks d/t imbalance EOB. Pt is limited by weakness, decreased activity tolerance, buckling of knees, and reduced ADL performance and would benefit from acute OT to address these needs. Recommend pt dc to SNF to maximize rehab potential and return to PLOF. Admitting Diagnosis: R femur fracture from fall Performance Deficits /Impairments: Increased Pain, Decreased Functional Mobility, Decreased ADL status, Decreased Strength, Decreased Safety Awareness, Decreased Endurance, and Decreased Balance Prognosis: Fair Decision Making: Medium Complexity Subjective Pt agreeable to OT eval Pain: 0-10 pain scale: 5/10 Location: RLE Past Medical History: Medical History[1] Past Surgical History: Surgical History[2] Admission Diagnosis: Patient Active Problem List Diagnosis Date Noted Closed nondisplaced intertrochanteric fracture of right femur, initial encounter ([facility]) 04/19/2025 Acute kidney injury ([facility]) 12/16/2023 Nausea vomiting and diarrhea 12/16/2023 Cervical stenosis of spinal canal 03/02/2023 Shortness of breath 11/18/2022 Syncope and collapse 11/18/2022 Traumatic subdural hematoma of neuraxis ([facility]) 11/18/2022 Recurrent falls 03/01/2022 Rhabdomyolysis 02/28/2022 S/P partial thyroidectomy 02/24/2022 Multiple thyroid nodules 06/15/2020 Allergic rhinitis 06/06/2020 Cardiomegaly 06/06/2020 Herpes simplex 06/06/2020 Hypertensive heart disease without congestive heart failure 06/06/2020 Mixed hyperlipidemia 06/06/2020 Moderate persistent asthma without complication 06/06/2020 Nonrheumatic aortic valve stenosis 06/06/2020 Patent foramen ovale 06/06/2020 Stage 3 chronic kidney disease (HCC) 06/06/2020 Status post hysterectomy 06/06/2020 Urge incontinence of urine 06/06/2020 Generalized anxiety disorder 10/17/2019 Insomnia 08/06/2019 Vitamin D deficiency 08/06/2019 Suicide attempt ([facility]) 11/13/2017 Mild intermittent asthma 09/23/2017 Bipolar 1 disorder, depressed, severe (CMS/HCC) ([facility]) 09/22/2017 Severe recurrent major depression with psychotic features ([facility]) 09/22/2017 Primary hypertension 09/20/2017 Closed displaced intertrochanteric fracture of right femur ([facility]) 04/19/2025 Medical Precautions: No active isolations Proper PPE donned/doffed in accordance with facility standards. Fall Risk: Norman Fall Risk Score: 60 (Medium Risk) Norman Fall Risk Score: 60 (High Risk) Precautions/Restrict ions: Right LE Weight Bearing: Weight Bearing As Tolerated, ROM as tolerated Lines/Drains/Airways : 4L O2 Family/Caregiver Present: none Overall Cognitive Status: Exceptions - Following commands: follows one step commands with increased time and follows one step commands with repetition - Safety judgement: decreased awareness of need for safety - Problem solving: assistance required to generate solutions and assistance required to implement solutions - Initiation: requires cues for all - Sequencing: requires cues for all Overall Orientation Status: Oriented x4 Social/Functional History Patient admitted from [facility]. Assistive Equipment: front wheeled walker and wheelchair - manual Prior Level of Function Prior Level of ADL Function: Required Assist Prior Level of Mobility: Required Assist; Device: Front wheeled walker and Wheelchair - manual Prior Level of Transfers: Required Assist Objective ADLs LE Dressing: Max Assist Pt unable to maintain sitting balance to complete LB dressing tasks safely requiring MAX A for sock mgt. States at baseline she has aid at [facility] that completes most of the bathing and dressing tasks for her. Attempted to walk to the bathroom but pt unable to take steps without buckling, would benefit from BSC when able to weight bear through BLE. (more content not included)... Normal [facility] Progress Note Adult Hip and Knee Reconstruction Service Patient Name: Pily Barnes Date of : 1950 Date: 04/22/25 Assessment: s/p Right CMN on 04/19/2025 doing well Plan: -Weight bearing: WBAT -Range of motion parameters: ROM as tolerated -Immobilization: No immobilization needed -Consults: none -Antibiotics: Abx 24hrs post-op -Dressings: Keep bandage clean dry and intact for 7-10 days post operatively, then ok to leave open to air if incision is without drainage -Diet: no restrictions from ortho standpoint -Continue PT/OT -Pain control -Ice and elevate -DVT prophylaxis: per medicine -DC planning: dispo p -Ortho following, please page catalyst concentration operator resident with questions or concerns. Subjective: Overall patient is doing well this morning. Pain is well controlled with pain medication. Patient has not been out of bed yet. [place] in place. Starting PT/OT today. Denies nausea or vomiting. Reports some tingling to right leg. Denies SOB or calf pain. Medications: Scheduled Meds[1] Physical Exam: Vitals: 04/22/25 0255 BP: 137/81 Pulse: 80 Resp: 20 Temp: 37.1 ?C (98.7 ?F) SpO2: 95% Intake and Output Summary (Last 24 hours) at Date Time Intake/Output Summary (Last 24 hours) at 04/22/2025 0714 Last data filed at 04/22/2025 0645 Gross per 24 hour Intake 5094.33 ml Output 1100 ml Net 3994.33 ml General appearance - no acute distress Musculoskeletal - Dressing C/D/I Fires TA/EHL/GSC- weakness noted to quad SILT SP/DP/TN WWP distally Posterior tibial pulse 2+ bilaterally Calves soft, nontender bilateral. No edema, erythema or warmth noted to calves. Labs: Lab Results Component Value Date HGB 11.4 (L) 04/22/2025 , Lab Results Component Value Date WBC 9.1 04/22/2025 HGB 11.4 (L) 04/22/2025 HCT 35.3 04/22/2025 MCV 91.9 04/22/2025 PLT 134 (L) 04/22/2025 , Lab Results Component Value Date GLUCOSE 158 (H) 04/22/2025 CALCIUM 8.5 (L) 04/22/2025 NA 137 04/22/2025 K 4.7 04/22/2025 CO2 22 (L) 04/22/2025 CL 109 (H) 04/22/2025 BUN 14 04/22/2025 CREATININE 0.75 04/22/2025 , No results found for: "CRP", "CREACTIVEPRO" , and No results found for: "SEDRATE", SEDRATEBYMOD Rads: Radiological Procedure reviewed. Signed by: Sherry Enriquez PA-C [1] amLODIPine, 2.5 mg, Oral, Daily ARIPiprazole, 5 mg, Oral, Daily buPROPion XL, 300 mg, Oral, Daily FLUoxetine, 60 mg, Oral, Daily lamoTRIgine, 50 mg, Oral, Daily losartan, 100 mg, Oral, Daily mometasone-formotero l, 2 puff, Inhalation, BID rosuvastatin, 20 mg, Oral, Nightly Normal [facility] BASIC METABOLIC PANELon 04-04 Anion gap [Moles/Vol] 6 mmol/L Normal 3-13 [facility] Comment on above: Performed By: #### L [id number] ####Mold Parter: MIGDALIA JOHNSON ([id number])[facility] (SBHLAB)[address] Calcium [Mass/Vol] 8.6 mg/dL Low 8.8-10.0 [facility] Comment on above: Performed By: #### L [id number] ####Mold Parter: MIGDALIA JOHNSON ([id number])[facility] ([facility])[address] Chloride [Moles/Vol] 112 mmol/L High 98-107 [facility] Comment on above: Performed By: #### L [id number] ####Mold Parter: MIGDALIA JOHNSON ([id number])[facility] ([facility])[address] CO2 [Moles/Vol] 21 mmol/L Low 23-31 [facility] Comment on above: Performed By: #### L [id number] ####Mold Parter: MIGDALIA JOHNSON ([id number])[facility] [place] ([facility])[address] Creatinine [Mass/Vol] 0.74 mg/dL Normal 0.57-1.11 [facility] Comment on above: Performed By: #### L [id number] ####Mold Parter: MIGDALIA JOHNSON ([id number])[facility] ([facility])[address] [place] [address] [place] GLOMERULAR FILTRATION RATE ML/MIN/1.73 SQ M.PREDICTED 85.0 mL/min/1.73m*2 Normal >60.0 [facility] Comment on above: Result Comment: Calc ulation based on the Chronic Kidney Disease Epidemiology Collaboration (CKD-EPI) equation refit without adjustment for race Performed By: #### L [id number] ####Mold Parter: MIGDALIA JOHNSON ([id number])[facility] ([facility])[address] Glucose [Mass/Vol] 144 mg/dL High 82-115 [facility] Comment on above: Performed By: #### L [id number] ####Mold Parter: MIGDALIA JOHNSON ([id number])[facility] ([facility])[address] Potassium [Moles/Vol] 4.7 mmol/L Normal 3.5-5.1 [facility] Comment on above: Result Comment: [facility] potassium values may be up to 0.5 mmol/L lower than serum values. Performed By: #### L [id number] ####Mold Parter: MIGDALIA JOHNSON ([id number])[facility] ([facility]HL[facility])[address] Sodium [Moles/Vol] 139 mmol/L Normal 136-145 [facility] Comment on above: Performed By: #### L [id number] ####Mold Parter: MIGDALIA JOHNSON ([id number])[facility] (SB[facility])[address] Urea nitrogen [Mass/Vol] 16 mg/dL Normal 9-23 [facility] Comment on above: Performed By: #### L [id number] ####Mold Parter: MIGDALIA JOHNSON ([id number])[facility] ([facility])[address] Basic metabolic 1998 panelOr dered By: Stephanie Walker on 04-21-2025 Anion gap [Moles/Vol] 6 mmol/L 3 - 13 mmol/L [facility] Calcium [Mass/Vol] 8.6 mg/dL Low 8.8 - 10. 0 mg/dL [facility] Chloride [Moles/Vol] 112 mmol/L High 98 - 10 7 mmol/L [facility] CO2 [Moles/Vol] 21 mmol/L Low 23 - 31 mmol/L [facility] Creatinine [Mass/Vol] 0.74 mg/dL 0.57 - 1.11 mg/dL [facility] GFR/1.73 sq M.predicted (S/P/Bld) [Vol rate/Area] 85 mL/min - PINF [facility] Comment on above: Calculation based on the Chronic Kidney Disease Epidemiology Collaboration (CKD-EPI) equation refit without adjustment for race Glucose [Mass/Vol] 144 mg/dL High 82 - 115 mg/dL [facility] Interpretation and review of laboratory results Abnormal [facility] Potassium [Moles/Vol] 4.7 mmol/L 3.5 - 5.1 mmol/L [facility] Comment on above: Plasma potassium dylon ues may be up to 0.5 mmol/L lower than serum values. Sodium [Moles/Vol] 139 mmol/L 136 - 145 mmol/L [facility] Urea nitrogen [Mass/Vol] 16 mg/dL 9 - 23 mg/d L [facility] CBC W Auto Differential pane l (Bld)on 04-21-2025 Basophils (Bld) [#/Vol] 0 10*3/uL 0.0 - 0.2 10*3/uL [facility] Basophils/100 WBC (Bld) 0.2 % 0.0 - 2.0 % [facility] Eosinophils (Bld) [#/Vol] 0.1 10*3/uL 0. 0 - 0.5 10*3/uL [facility] Eosinophils/100 WBC (Bld) 0.8 % 0.0 - 6.0 % [facility] Erythrocyte distribution width (RBC) [Ratio] 13.5 % 11.5 - 15.0 % [facility] Hematocrit (Bld) [Volume fraction] 38.6 % 35.0 - 47.0 % [facility] Hemoglobin (Bld) [Mass/Vol] 12.3 g/dL 11.7 - 16.0 g/dL [facility] Immature granulocytes (Bld) [#/Vol] 0 10*3/uL NINF - 0.1 10*3/uL [facility] Immature granulocytes/100 WBC (Bld) 0.2 % 0.0 - 2.0 % [facility] Interpretation and review of laboratory results Abnormal [facility] th IPF 2 [facility] Lymphocytes (Bld) [#/Vol] 0.9 10*3/uL Low 1. 0 - 4.3 10*3/uL [facility] Lymphocytes/100 WBC (Bld) 10 % Low 15 .0 - 45.0 % [facility] MCH (RBC) [Entitic mass] 29.6 pg 26. 0 - 34.[address] [facility] MCHC (RBC) [Mass/Vol] 31.9 % 30.5 - 36.0 % [facility] MCV (RBC) [Entitic vol] 92.8 fL 77.0 - 99.[address] [facility] Monocytes (Bld) [#/Vol] 0.7 10*3/uL 0.0 - 0.9 10*3/uL [facility] Monocytes/100 WBC (Bld) 7.6 % 5.0 - 13.0 % [facility] Neutrophils (Bld) [#/Vol] 7.1 10*3/uL 1. 8 - 7.5 10*3/uL [facility] Neutrophils/100 WBC (Bld) 81.2 % 38 .0 - 82.0 % [facility] Nucleated RBC/100 WBC (Bld) [Ratio] 0 % [facility] Platelet mean volume (Bld) [Entitic vol] 10 fL 9.0 - 12.[address] [facility] Platelets (Bld) [#/Vol] 137 10*3/uL Low 140 - 440 10*3/uL [facility] RBC (Bld) [#/Vol] 4.16 10*6/uL 3.80 - 5.2 0 10*6/uL [facility] WBC (Bld) [#/Vol] 8.7 10*3/uL 3.6 - 10.7 10*3/uL [facility] CBC WITH AUTO DIFFERENTIALon 04-21-2025 Basophils (Bld) [#/Vol] 0.0 10*3/uL Normal 0.0-0.2 [facility] Comment on above: Performed By: #### L [id number] ####Mold Parter: MIGDALIA JOHNSON ([id number])[facility] ([facility])[address] [place] [address] Basophils/100 WBC (Bld) 0.2 % Normal 0.0-2.0 [facility] Comment on above: Performed By: #### L [id number] ####Mold Parter: MIGDALIA JOHNSON ([id number])[facility] ([facility])[address] Eosinophils (Bld) [#/Vol] 0.1 10*3/uL Normal 0.0-0.5 [facility] Comment on above: Performed By: #### L [id number] ####Mold Parter: MIGDALIA LINTONCARTER ([id number])[facility] ([facility])[address] Eosinophils/100 WBC (Bld) 0.8 % Normal 0.0-6.0 [facility] Comment on above: Performed By: #### L [id number] ####Mold Parter: MIGDALIA JOHNSON ([id number])[facility])[address] Erythrocyte distribution width (RBC) [Ratio] 13.5 % Normal 11.5-15.0 [facility] Comment on above: Performed By: #### L [id number] ####Mold Parter: MIGDALIA LINTONCARTER ([id number])[facility])[address] Hematocrit (Bld) [Volume fraction] 38.6 % Normal 35.0-47.0 [facility] Comment on above: Performed By: #### L [id number] ####Mold Parter: MIGDALIA JOHNSON ([id number])[facility] ([facility])[address] Hemoglobin (Bld) [Mass/Vol] 12.3 g/dL Normal 11.7-16.0 [facility] Comment on above: Performed By: #### L [id number] ####Mold Parter: MIGDALIA JOHNSON ([id number])[facility] IMMATURE GRANS % 0.2 % Normal 0.0-2.0 [facility] Comment on above: Performed By: #### L [id number] ####Mold Parter: MIGDALIA JOHNSON ([id number])[facility] ([facility])[address] IMMATURE GRANS ABSOLUTE 0.0 10*3/uL Normal <0.1 [facility] Comment on above: Performed By: #### L [id number] ####Mold Parter: MIGDALIA LINTONCARTER ([id number])[facility] ([facility])[address] IPF 2 Normal [facility] Comment on above: Performed By: #### L [id number] ####Mold Parter: MIGDALIA ESCALONAVASILIY ([id number])[facility] ([facility])[address] Lymphocytes (Bld) [#/Vol] 0.9 10*3/uL Low 1.0-4.3 [facility] Comment on above: Performed By: #### L [id number] ####Mold Parter: MIGDALIA JOHNSON ([id number])[facility] ([facility])[address] Lymphocytes/100 WBC (Bld) 10.0 % Low 15.0-45.0 [facility] Comment on above: Performed By: #### L [id number] ####Mold Parter: MIGDALIA LINTONCARTER ([id number])[facility] ([facility])[address] MCH (RBC) [Entitic mass] 29.6 pg Normal 26.0-34.0 [facility] Comment on above: Performed By: #### L [id number] ####Mold Parter: MIGDALIA ESCALONALILLYCARTER ([id number])[facility] ([facility])[address] MCHC 31.9 % Normal 30.5-36.0 [facility] Comment on above: Performed By: #### L [id number] ####Mold Parter: MIGDALIA JOHNSON ([id number])[facility] ([facility])[address] MCV (RBC) [Entitic vol] 92.8 fL Normal 77.0-99.0 [facility] Comment on above: Performed By: #### L [id number] ####Mold Parter: MIGDALIA JOHNSON ([id number])[facility] ([facility])[address] Monocytes (Bld) [#/Vol] 0.7 10*3/uL Normal 0.0-0.9 [facility] Comment on above: Performed By: #### L [id number] ####Mold Parter: MIGDALIA JOHNSON ([id number])[facility] ([facility])[address] Monocytes/100 WBC (Bld) 7.6 % Normal 5.0-13.0 [facility] Comment on above: Performed By: #### L [id number] ####Mold Parter: MIGDALIA JOHNSON ([id number])[facility] ([facility])[address] NEUTROPHILS ABSOLUTE 7.1 10*3/uL Normal 1.8-7.5 [facility] Comment on above: Performed By: #### L [id number] ####Mold Parter: MIGDALIA JOHNSON ([id number])[facility] ([facility])[address] Neutrophils/100 WBC (Bld) 81.2 % Normal 38.0-82.0 [facility] Comment on above: Performed By: #### L [id number] ####Mold Parter: MIGDALIA JOHNSON ([id number])[facility] ([facility])[address] NRBC 0.0 /100 WBCs Normal 0.0-2.0 [facility] Comment on above: Performed By: #### L [id number] ####Mold Parter: MIGDALIA JOHNSON ([id number])[facility] ([facility])[address] Platelet mean volume (Bld) [Entitic vol] 10.0 fL Normal 9.0-12.7 [facility] Comment on above: Performed By: #### L [id number] ####Mold Parter: MIGDALIA DOHERTYCER ([id number])[facility] ([facility])[address] Platelets (Bld) [#/Vol] 137 10*3/uL Low 140-440 [facility] Comment on above: Performed By: #### L [id number] ####Mold Parter: MIGDALIA DOHERTYCER ([id number])[facility] [place] ([facility])[address] RBC (Bld) [#/Vol] 4.16 10*6/uL Normal 3.80-5.20 [facility] Comment on above: Performed By: #### L [id number] ####Mold Parter: MIGDALIA DOHERTYCER ([id number])[facility] ([facility])[address] WBC (Bld) [#/Vol] 8.7 10*3/uL Normal 3.6-10.7 [facility] Comment on above: Performed By: #### L [id number] ####Mold Parter: MIGDALIA LINTONCARTER ([id number])[facility] ([facility])[address] [place] [address] No Panel Informationon 04-21 There is no interpretation needed for this exam. IMAGING Nursing Noteon 04-21-2025 Nursing Note Warm blankets applied. BP 168/85 81 93% on 2L Normal [facility] Nursing Note Pt states nausea is better. 168/90 81 94% on 2L. Sons at bedside Normal [facility] Nursing Note Pt c/o nausea, zofran given per Dr Henderson order. Normal [facility] Nursing Note Arrived in sds, A+O x3, sons at bedside. IV K+ via pump Normal [facility] Op Noteon 04-21-2025 Op Note [facility] MAIN OR [address] [place] [address] Dept: [phone] Operative Report Patient Name: Pily Barnes Date of : 1950 Date of Surgery: 04/21/25 Pre-operative Diagnosis: Right intertroch femur fracture Post-operative Diagnosis: Same Procedure: Intramedullary Nailing Right Femur Components used: [employer] Intertan IMN, 10 mm diameter X 18 cm length, 125 degree neck angle Anesthesia: general Surgeon: Rolando Beverly MD Assistants: [id number] [email or web address] Estimated Blood Loss: 50 Complications: None Specimens: No Operative findings: anatomic reduction. History of present illness: I met with Pily in the preoperative area prior to the procedure and discussed the surgical plan once again and answered all of her questions related to the procedure and the expected post-operative course. The risks of surgery were discussed including but not limited to the risks of medications given for surgery, the risk of blood loss during and after surgery that can lead to the need for blood products in certain situations, infection, damage to normal structures that can lead to regional intermodal truck driver problems of pain or dysfunction, wound healing complications, the possibility of nonunion, malunion and late or chronic pain were also discussed. In addition potentially life threatening complications at the time of surgery and after surgery were discussed including but not limited to deep vein thrombosis, pulmonary embolism,myocardial infarction, stroke and . I initialed her Rightlower extremity and signed her consent form. Operative report: she was then taken to the operating room. A general anesthetic was then given by the anesthesia staff and an endotracheal tube was placed by the anesthesia staff. At all times during the operative procedure the patient's head neck and airway were protected by the anesthesia staff. The patient was then transferred to the fracture table. Care was taken to identify and pad all bony prominences. Perineal post was place and the feet were placed in the fracture table boots and secured. The upper extremities were padded and positioned. Closed reduction of the fracture was then accomplished utilizing the fracture table and verified on fluroscopic imaging in AP, oblique and lateral planes. The Right lower extremity was then prepped and draped in the usual orthopedic sterile fashion. A surgical timeout was then performed with the patient's identification, the procedure to be performed being reviewed, verification that the patient had received preoperative antibiotics, and verification of the correct surgical side. This timeout was performed by myself, the circulating room nurse and the anesthesia staff. The patient's ASA was verified by the nurse audit mgr and the anesthesia staff. Fire risk was assessed. A 3.2 mm threaded guide pin was then placed through the skin proximal to the greater trochanter and advanced until it was centered just medial to the tip of the greater trochanter on the AP fluroscopic view and was centered midway between the anterior and posterior edges of the greater trochanter on the lateral view. When the position of the pin was verified it was advanced through the cortex and taken to the level of the lesser trochanter. Its intramedullary position was verified on AP and lateral fluroscopic images. The skin was then incised longitudinally around the pin and a soft tissue guide was advanced through the incision until it rested on the greater trochanteric tip. The proximal reamer was then placed over the guide pin and proximal reaming was carried out to the level of the lesser trochanter. The 10x18 125 neck ankle nail was then place. The outer proximal nail guide was then centered with respect to the head, neck and shaft of the femur on the lateral fluroscopic view. The guide sleeve for the lag/compression screw was placed through an incision in the lateral thigh and advanced until it rested on the lateral cortex of the femur. A 3.2 mm threaded guide pin was then advanced through the guide sleeve until it rested with the center of the femoral head subchondral bone on both the AP and lateral fluroscopic views. The guide pin was then measured to determine the length of the lag screw and compression screw. Once position of the pin was verified to be correct the compression screw slot was drilled and the anti-rotation bar was placed. Reaming was then carried out over the guide pin through the lag screw portion of the sleeve. Once reaming was complete the lag screw was placed over the guide pin and advanced until it was fully seated. The anti-rotation bar was then removed and the compression screw was placed and once engaged the fracture was compressed as verified on fluroscopic images. Acv-Wzwl-Bimenbyf was felt to be less than 25 mm on ap/lat images. Using the out head up operator a distal locking screw was pl (more content not included)... Normal [facility] Op Note Date: 04/21/2025 Location: [facility] OR Name: Pily Barnes, : 1950, Diagnosis Pre-op Diagnosis * Closed displaced intertrochanteric fracture of right femur, initial encounter ([facility]) [S72.141A] Post-op Diagnosis * Closed displaced intertrochanteric fracture of right femur, initial encounter ([facility]) [S72.141A] Procedures RIGHT ORIF, FRACTURE, FEMUR, INTERTROCHANTERIC, WITH INTRAMEDULLARY IMPLANT INSERTION [id number] - [place] INTER/KS/SUBTRCHNTRI C FEM FX IMED IMPLTSCREW Surgeons * Rolando Beverly - Primary Procedure Summary Anesthesia: General ASA: III Estimated Blood Loss: 50mL Drains: Urethral Catheter (Active) Catheter Indications Short-term following a surgical procedure (i.e. Urological or Gynecological) or active irrigation 04/20/252035 Site Assessment Clean;Skin intact 04/20/252035 Collection Container Standard drainage bag 04/20/252035 Securement Method Securing device 04/20/252035 Catheter Best Practices Drainage tube clipped to bed;Catheter secured to thigh;Tamper seal intact;Bag below bladder;Bag not on floor;Lack of dependent loop in tubing;Drainage bag less than half full 04/20/252035 Catheter Status Draining 04/20/252035 Output (mL) 700 mL 04/21/25 0600 Implants Type Name Action Serial No. Nail NAIL INTERTAN 10S [id number] 125D - [id number] Implanted Screw KIT SCR 95MM 4.5MM INTERTAN - [id number] Implanted Screw SCREW BN 5MM 30MM TRGN FEM - [id number] Implanted Staff: Switching Operator: Ranjeet Chappell RN Physician Installations Inspector: Sherry Enriquez PA-C Prescription Benefit Specialist: Beto Diallo RT (R) Relief Switching Operator: Chela Soliz RN Scrub Person: Librado Allen Assist: Cee Carrillo Findings: See op note Complications: None; patient tolerated the procedure well. Specimens Collected: No specimens collected during this procedure. Wound Class: Class I: Clean Blood Products: None Prophylactic Antibiotics: Procedure appropriate prophylactic antibiotic(s) given within 1 hour of surgical incision (two hours if receiving Vancomycin or flouroquinolone) -Operative plans: No further plans for surgery -Weight bearing: RLE: WBAT LLE: WBAT RUE: WBAT LUE: WBAT -Range of motion parameters: ROM as tolerated -Immobilization: No immobilization needed -Antibiotics: 24 hours of post op antibiotics. -Dressings: Keep dressings clean dry and intact for 5 days post operatively, then ok to leave open to air if incision is without drainage. -Other: None -Diet: no restrictions from ortho standpoint -Labs: CBC & BMP x 2 days post op -PT/OT -PT recommended outpatient/post discharge?: Yes, for basic ADLs -Ice & elevate -Medical management, dvt ppx and pain control per primary -DVT ppx recommended?: Yes, 30 days of post operative DVT ppx recommended, orthopedics recommends aspirin 81mg BID, but defer to primary team -Follow-up with Dr Beverly in 2 weeks -Ortho to follow. [facility] Progress Noteon 04-21-2025 Progress Note Physician Response Please review the following and provide your response below. Please clarify which of the following accurately describes the patient's CKD Stage: no CKD This documentation will become part of the patient's medical record. Normal [facility] Progress Note Nutrition rescreen complete. Pt assigned a level one for nutrition care. Normal [facility] Progress Note ASSESSMENT: 74 y.o. female with R comminuted intertrochanteric femur fracture PLAN: -Plan for OR for R hip CMN today 04/21/[address] 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 [facility] XR Pelvis 1 or 2 [facility] Radiology Study observation (narrative) [facility] ECG 12-LEADon 04-20-2025 ECG 12-LEAD IMPRESSION: Sinus rhythm Incomplete left bundle branch block LVH with secondary repolarization abnormality Electronically Signed On 04-20-2025 02:50:38 EDT by Preet Aquino [facility] No Panel InformationOrdered By: Preet Aquino on 04-20-2025 P [place] 29 degrees [facility] Work Phone: [place] Interval 198 ms [facility] Work Phone: QRS [place] -28 degrees [facility] Work Phone: QRSD Interval 116 ms [facility] [facility] Work Phone: QT Interval 399 ms [facility] Work Phone: QTC Interval 426 ms [facility] Work Phone: T Wave [place] 84 degrees [facility] [place] Work Phone: [facility] [place] Work Phone: No Panel Informationon 04-20 Sinus rhythm Incomplete left bundle branch block LVH with secondary repolarization abnormality Electronically Signed On 04-20-2025 02:50:38 EDT by Preet Aquino Preet Calix MD - 04/20/2025 IMPRESSION: Sinus rhythm Incomplete left bundle branch block LVH with secondary repolarization abnormality Electronically Signed On 04-20-2025 02:50:38 EDT by Preet Aquino [facility] Vital signsOrdered By: Kulwinder Aquino on 04-20-2025 Heart rate 69 /min bpm [facility] Work Phone: BASIC METABOLIC PANELon 04-04 Anion gap [Moles/Vol] 7 mmol/L Normal 3-13 [facility] Comment on above: Performed By: #### L [id number] ####Mold Parter: MIGDALIA JOHNSON ([id number])[facility] ([facility])[address] Calcium [Mass/Vol] 7.2 mg/dL Low 8.8-10.0 [facility] Comment on above: Performed By: #### L AB15 ####Mold Parter: MIGDALIA JOHNSON ([id number])[facility] ([facility])[address] Chloride [Moles/Vol] 116 mmol/L High 98-107 [facility] Comment on above: Performed By: #### L AB15 ####Mold Parter: MIGDALIA JOHNSON ([id number])[facility] ([facility])[address] CO2 [Moles/Vol] 18 mmol/L Low 23-31 [facility] Comment on above: Performed By: #### L AB15 ####Mold Parter: MIGDALIA JOHNSON ([phone])[facility] Creatinine [Mass/Vol] 0.62 mg/dL Normal 0.57-1.11 [facility] Comment on above: Performed By: #### L AB15 ####Mold Parter: MIGDALIA JOHNSON ([id number])[facility] ([facility])[address] [place] [address] GLOMERULAR FILTRATION RATE ML/MIN/1.73 SQ M.PREDICTED >90.0 Normal >60.0 [facility] Comment on above: Result Comment: Calc ulation based on the Chronic Kidney Disease Epidemiology Collaboration (CKD-EPI) equation refit without adjustment for race Performed By: #### L AB15 ####Mold Parter: MIGDALIA JOHNSON ([phone])[facility] ([facility])[address] [place] [address] Glucose [Mass/Vol] 93 mg/dL Normal 82-115 [facility] Comment on above: Performed By: #### L AB15 ####Mold Parter: MIGDALIA JOHNSON ([id number])[facility])[address] Potassium [Moles/Vol] 3.2 mmol/L Low 3.5-5.1 [facility] Comment on above: Result Comment: [facility] potassium values may be up to 0.5 mmol/L lower than serum values. Performed By: #### L AB15 ####Mold Parter: MIGDALIA JOHNSON ([phone])[facility] ([facility])[address] [place] [address] [place] Sodium [Moles/Vol] 141 mmol/L Normal 136-145 [facility] Comment on above: Performed By: #### L AB15 ####Mold Parter: MIGDALIA JOHNSON ([id number])[facility] ([facility])[address] Urea nitrogen [Mass/Vol] 20 mg/dL Normal 9-23 [facility] Comment on above: Performed By: #### L AB15 ####Mold Parter: MIGDALIA JOHNSON ([id number])[facility] ([facility])[address] BLOOD TYPE AND SCREEN GELon 04-19-2025 ABO GROUPING AB Normal [facility] Comment on above: Performed By: #### L [id number] ####Mold Parter: MIGDALIA JOHNSON ([id number])[facility] BLOOD [facility] ([facility])[address] RH TYPE IN BLOOD Positive Normal [facility] Comment on above: Performed By: #### L [id number] ####Mold Parter: [facility]IGDALIACATHI [facility] ([phone])[facility] B[facility]OD [facility] ([facility])[address] Basic metabolic 1998 panelon 04-19-2025 Anion gap [Moles/Vol] 7 mmol/L 3 - 13 mmol/L [facility] Calcium [Mass/Vol] 7.2 mg/dL Low 8.8 - 10. 0 mg/dL [facility] Chloride [Moles/Vol] 116 mmol/L High 98 - 10 7 mmol/L [facility] CO2 [Moles/Vol] 18 mmol/L Low 23 - 31 mmol/L [facility] Creatinine [Mass/Vol] 0.62 mg/dL 0.57 - 1.11 mg/dL [facility] GFR/1.73 sq M.predicted (S/P/Bld) [Vol rate/Area] - PINF [facility] Comment on above: Calculation based on the Chronic Kidney Disease Epidemiology Collaboration (CKD-EPI) equation refit without adjustment for race Glucose [Mass/Vol] 93 mg/dL 82 - 115 mg/dL [facility] Interpretation and review of laboratory results Abnormal [facility] Potassium [Moles/Vol] 3.2 mmol/L Low 3.5 - 5.1 mmol/L [facility] Comment on above: Plasma potassium dylon ues may be up to 0.5 mmol/L lower than serum values. Sodium [Moles/Vol] 141 mmol/L 136 - 145 mmol/L [facility] Urea nitrogen [Mass/Vol] 20 mg/dL 9 - 23 mg/d L [facility] Blood type and Crossmatch pa alvaro (Bld)on 04-19-2025 ABO group Nom (Bld) AB [facility] Blood group antibody screen GEL Ql Negative [facility] D Ag Ql [facility]RBC) [facility] CBC W Auto Differential pane l (Bld)on 04-19-2025 Basophils (Bld) [#/Vol] 0 10*3/uL 0.0 - 0.2 10*3/uL [facility] Basophils/100 WBC (Bld) 0.3 % 0.0 - 2.0 % [facility] Eosinophils (Bld) [#/Vol] 0.1 10*3/uL 0. 0 - 0.5 10*3/uL [facility] Eosinophils/100 WBC (Bld) 0.7 % 0.0 - 6.0 % [facility] Erythrocyte distribution width (RBC) [Ratio] 13.3 % 11.5 - 15.0 % [facility] Hematocrit (Bld) [Volume fraction] 40.6 % 35.0 - 47.0 % [facility] Hemoglobin (Bld) [Mass/Vol] 13.5 g/dL 11.7 - 16.0 g/dL [facility] Immature granulocytes (Bld) [#/Vol] 0.1 10*3/uL High NINF - 0.1 10*3/uL [facility] Immature granulocytes/100 WBC (Bld) 0.5 % 0.0 - 2.0 % [facility] Interpretation and review of laboratory results Abnormal [facility] Lymphocytes (Bld) [#/Vol] 0.7 10*3/uL Low 1. 0 - 4.3 10*3/uL [facility] Lymphocytes/100 WBC (Bld) 6.6 % Low 15 .0 - 45.0 % [facility] MCH (RBC) [Entitic mass] 30.1 pg 26. 0 - 34.[address] [facility] MCHC (RBC) [Mass/Vol] 33.3 % 30.5 - 36.0 % [facility] MCV (RBC) [Entitic vol] 90.4 fL 77.0 - 99.[address] [facility] Monocytes (Bld) [#/Vol] 0.5 10*3/uL 0.0 - 0.9 10*3/uL [facility] Monocytes/100 WBC (Bld) 4.5 % Low 5.0 - 13.0 % [facility] Neutrophils (Bld) [#/Vol] 9.2 10*3/uL High 1. 8 - 7.5 10*3/uL [facility] Neutrophils/100 WBC (Bld) 87.4 % High 38 .0 - 82.0 % [facility] Nucleated RBC/100 WBC (Bld) [Ratio] 0 % [facility] Platelet mean volume (Bld) [Entitic vol] 9.9 fL 9.0 - 12.[address] [facility] Platelets (Bld) [#/Vol] 165 10*3/uL 140 - 440 10*3/uL [facility] RBC (Bld) [#/Vol] 4.49 10*6/uL 3.80 - 5.2 0 10*6/uL [facility] WBC (Bld) [#/Vol] 10.5 10*3/uL 3.6 - 10.7 10*3/uL [facility] CBC WITH AUTO DIFFERENTIALon 04-19-2025 Basophils (Bld) [#/Vol] 0.0 10*3/uL Normal 0.0-0.2 [facility] Comment on above: Performed By: #### L [id number] ####Mold Parter: MIGDALIA JOHNSON ([phone])[facility] (SBHLAB)[address] Basophils/100 WBC (Bld) 0.3 % Normal 0.0-2.0 [facility] Comment on above: Performed By: #### L [id number] ####Mold Parter: MIGDALIA JOHNSON ([id number])[facility] (SBHLAB)[address] Eosinophils (Bld) [#/Vol] 0.1 10*3/uL Normal 0.0-0.5 [facility] Comment on above: Performed By: #### L [id number] ####Mold Parter: MIGDALIA JOHNSON ([id number])[facility] (SBHLAB)[address] Eosinophils/100 WBC (Bld) 0.7 % Normal 0.0-6.0 [facility] Comment on above: Performed By: #### L [id number] ####Mold Parter: MIGDALIA JOHNSON ([id number])[facility] (SBAB)[address] Erythrocyte distribution width (RBC) [Ratio] 13.3 % Normal 11.5-15.0 [facility] Comment on above: Performed By: #### L [id number] ####Mold Parter: MIGDALIA JOHNSON ([id number])[facility] (SBAB)[address] Hematocrit (Bld) [Volume fraction] 40.6 % Normal 35.0-47.0 [facility] Comment on above: Performed By: #### L [id number] ####Mold Parter: MIGDALIA JOHNSON ([id number])[facility] (SBAB)[address] Hemoglobin (Bld) [Mass/Vol] 13.5 g/dL Normal 11.7-16.0 [facility] Comment on above: Performed By: #### L [id number] ####Mold Parter: MIGDALIA JOHNSON ([id number])[facility] (SBHLAB)[address] IMMATURE GRANS % 0.5 % Normal 0.0-2.0 [facility] Comment on above: Performed By: #### L [id number] ####Mold Parter: MIGDALIA JOHNSON ([id number])[facility] (SBAB)[address] IMMATURE GRANS ABSOLUTE 0.1 10*3/uL High <0.1 [facility] Comment on above: Performed By: #### L [id number] ####Mold Parter: MIGDALIA LINTONCARTER ([id number])[facility] (SBHLAB)[address] Lymphocytes (Bld) [#/Vol] 0.7 10*3/uL Low 1.0-4.3 [facility] Comment on above: Performed By: #### L [id number] ####Mold Parter: MIGDALIA LINTONCARTER ([id number])[facility] (SB[facility]AB)[address] Lymphocytes/100 WBC (Bld) 6.6 % Low 15.0-45.0 [facility] Comment on above: Performed By: #### L [id number] ####Mold Parter: MIGDALIA JOHNSON ([id number])[facility] (SB[facility]AB)[address] MCH (RBC) [Entitic mass] 30.1 pg Normal 26.0-34.0 [facility] Comment on above: Performed By: #### L [id number] ####Mold Parter: MIGDALIA LINTONCARTER ([id number])[facility] (SBHLAB)[address] MCHC 33.3 % Normal 30.5-36.0 [facility] Comment on above: Performed By: #### L [id number] ####Mold Parter: MIGDALIA JOHNSON ([id number])[facility] (SB[facility]AB)[address] MCV (RBC) [Entitic vol] 90.4 fL Normal 77.0-99.0 [facility] Comment on above: Performed By: #### L [id number] ####Mold Parter: MIGDALIA JOHNSON ([id number])[facility] (SBHLAB)[address] [place] [address] [place] Monocytes (Bld) [#/Vol] 0.5 10*3/uL Normal 0.0-0.9 [facility] Comment on above: Performed By: #### L [id number] ####Mold Parter: MIGDALIA JOHNSON ([id number])[facility] (SBHLAB)[address] Monocytes/100 WBC (Bld) 4.5 % Low 5.0-13.0 [facility] Comment on above: Performed By: #### L [id number] ####Mold Parter: MIGDALIA JOHNSON ([phone])[facility] (SBHLAB)[address] NEUTROPHILS ABSOLUTE 9.2 10*3/uL High 1.8-7.5 [facility] Comment on above: Performed By: #### L [id number] ####Mold Parter: MIGDALIA JOHNSON ([id number])[facility] (SBHLAB)[address] Neutrophils/100 WBC (Bld) 87.4 % High 38.0-82.0 [facility] Comment on above: Performed By: #### L [id number] ####Mold Parter: MIGDALIA JOHNSON ([id number])[facility] (SBHLAB)[address] NRBC 0.0 /100 WBCs Normal 0.0-2.0 [facility] Comment on above: Performed By: #### L [id number] ####Mold Parter: MIGDALIA JOHNSON ([id number])[facility] (SB[facility])[address] Platelet mean volume (Bld) [Entitic vol] 9.9 fL Normal 9.0-12.7 [facility] Comment on above: Performed By: #### L [id number] ####Mold Parter: MIGDALIA JOHNSON ([id number])[facility] (SB[facility]AB)[address] [place] [address] [place] Platelets (Bld) [#/Vol] 165 10*3/uL Normal 140-440 [facility] Comment on above: Performed By: #### L [id number] ####Mold Parter: MIGDALIA JOHNSON ([id number])[facility] (SBHLAB)[address] RBC (Bld) [#/Vol] 4.49 10*6/uL Normal 3.80-5.20 [facility] Comment on above: Performed By: #### L [id number] ####Mold Parter: MIGDALIA JOHNSON ([id number])[facility] (SBHLAB)[address] [place] [address] WBC (Bld) [#/Vol] 10.5 10*3/uL Normal 3.6-10.7 [facility] Comment on above: Performed By: #### L [id number] ####Mold Parter: MIGDALIA JOHNSON ([id number])[facility] (SBHLAB)[address] [place] [address] CT Abdomen and Pelvis WO and W contrast Ebenezer 04-19-2025 [facility] 1950 [id number] Exam Date/Time: 04/19/2025 16:14 Procedure: CT CHEST ABDOMEN PELVIS WO CONTRAST Ordering Provider: BOONE AKASH Reason For Exam: Fall Gender: Female Age: 74 years Exam: CT CHEST ABDOMEN PELVIS WO CONTRAST, CT LUMBAR SPINE RECON, CT THORACIC SPINE RECON INDICATION: Patient fell in bathroom. Right hip pain. Ascending aortic aneurysm measuring 4.6 cm. Scan Parameters: Multiple axial 1mm images were obtained of the chest and 3mm images of the abdomen and pelvis. Coronal and sagittal reconstructions were reviewed as well. Dose reduction was employed with automated exposure control. Additional reconstructed MIP images provided with 3-D postprocessing. Reconstructed 2 mm images (axial, coronal, sagittal) were obtained and provided as CT thoracic spine and CT lumbar spine. CONTRAST: No IV and oral contrast. COMPARISON: CT abdomen and pelvis 12/17/2023; CT cervical spine 01/12/2023 FINDINGS: CHEST: There is no pneumothorax, confluent consolidation, or sizable pleural effusion. The right hemidiaphragm remains elevated. Right thyroid lobe 9 mm rim calcified nodule, unchanged from 01/12/2023. The airway is patent. The esophagus is not well-distended. A small sliding-type hiatal hernia is present. There is no mediastinal, hilar, or axillary adenopathy. The heart is enlarged. There is no pericardial effusion. Coronary artery and aortic atherosclerotic calcifications are present. Ascending aortic aneurysm again measures 4.6 cm, not significantly changed from 12/17/2023. The bones are osteopenic. Anterior cervical fusion, partially included in the [id number]. There is no acute fracture of the clavicles, scapula, sternum, ribs, or thoracic spine. THORACIC SPINE: There is kyphosis of the thoracic spine. There is no acute fracture. There is no significant central canal narrowing or paravertebral hematoma. ABDOMEN AND PELVIS: Atherosclerotic calcifications are present along the aorta and branches. The liver, gallbladder, pancreas, spleen, and adrenal glands are within normal limits. Bilateral parapelvic cysts are present without obstructive uropathy. There is no obstructing ureteral calculus. The bladder contour is normal without wall thickening. The uterus is surgically absent. The appendix is not visualized (no CT evidence for appendicitis). Multiple colonic diverticuli are present. Fecal retention is present. There is no bowel obstruction. A small sliding-type hiatal hernia is present. There is no lymphadenopathy. There is a complex comminuted impaction intertrochanteric right femur fracture. The femur head is not dislocated. The iliac bones, acetabulum, pubic rami and sacrum are intact. LUMBAR SPINE: There is no acute fracture of the lumbar spine. There is grade 1 anterolisthesis L4-L5. Endplate benign Schmorl's nodes are present at L3 and L2. Loss of disc space height is most prominent at L2-L3 and L3-L4. There is no significant central canal stenosis. [facility] Cee Del Angel MD - 04/19/2025 Patient Name: PILY BARNES : 1950 Exam Date/Time: 04/19/2025 16:14 Procedure: CT CHEST ABDOMEN PELVIS WO CONTRAST Ordering Provider: BOONE AKASH Reason For Exam: Fall Gender: Female Age: 74 years Exam: CT CHEST ABDOMEN PELVIS WO CONTRAST, CT LUMBAR SPINE RECON, CT THORACIC SPINE RECON INDICATION: Patient fell in bathroom. Right hip pain. Ascending aortic aneurysm measuring 4.6 cm. Scan Parameters: Multiple axial 1mm images were obtained of the chest and 3mm images of the abdomen and pelvis. Coronal and sagittal reconstructions were reviewed as well. Dose reduction was employed with automated exposure control. Additional reconstructed MIP images provided with 3-D postprocessing. Reconstructed 2 mm images (axial, coronal, sagittal) were obtained and provided as CT thoracic spine and CT lumbar spine. CONTRAST: No IV and oral contrast. COMPARISON: CT abdomen and pelvis 12/17/2023; CT cervical spine 01/12/2023 FINDINGS: CHEST: There is no pneumothorax, confluent consolidation, or sizable pleural effusion. The right hemidiaphragm remains elevated. Right thyroid lobe 9 mm rim calcified nodule, unchanged from 01/12/2023. The airway is patent. The esophagus is not well-distended. A small sliding-type hiatal hernia is present. There is no mediastinal, hilar, or axillary adenopathy. The heart is enlarged. There is no pericardial effusion. Coronary artery and aortic atherosclerotic calcifications are present. Ascending aortic aneurysm again measures 4.6 cm, not significantly changed from 12/17/2023. The bones are osteopenic. Anterior cervical fusion, partially included in the [id number]. There is no acute fracture of the clavicles, scapula, sternum, ribs, or thoracic spine. THORACIC SPINE: There is kyphosis of the thoracic spine. There is no acute fracture. There is no significant central canal narrowing or paravertebral hematoma. ABDOMEN AND PELVIS: Atherosclerotic calcifications are present along the aorta and branches. The liver, gallbladder, pancreas, spleen, and adrenal glands are within normal limits. Bilateral parapelvic cysts are present without obstructive uropathy. There is no obstructing ureteral calculus. The bladder contour is normal without wall thickening. The uterus is surgically absent. The appendix is not visualized (no CT evidence for appendicitis). Multiple colonic diverticuli are present. Fecal retention is present. There is no bowel obstruction. A small sliding-type hiatal hernia is present. There is no lymphadenopathy. There is a complex comminuted impaction intertrochanteric right femur fracture. The femur head is not dislocated. The iliac bones, acetabulum, pubic rami and sacrum are intact. LUMBAR SPINE: There is no acute fracture of the lumbar spine. There is grade 1 anterolisthesis L4-L5. Endplate benign Schmorl's nodes are present at L3 and L2. Loss of disc space height is most prominent at L2-L3 and L3-L4. There is no significant central canal stenosis. IMPRESSION: CHEST (with CT thoracic spine): 1. No traumatic intrathoracic process. 2. No traumatic fracture of the thoracic spine. 3. Atherosclerotic disease. Ascending aortic aneurysm again measures 4.6 cm, not significantly changed from 12/17/2023. ABDOMEN/PELVIS (with CT lumbar spine): 1. Acute RIGHT femur intertrochanteric comminuted impaction fracture. Osteopenia. 2. No traumatic fracture of the lumbar spine. 3. Other: Persistent elevation of the right hemidiaphragm. Colonic diverticulosis. Atherosclerotic disease. Parapelvic cysts. Report Dictated on Electronically Signed By: Cee Del Angel MD Electronically Signed Date/Time: 04/19/2025 5:23 PM EDT [facility] Radiology Study observation (narrative) [facility] CT CERVICAL SPINE WO IV CONT [facility] 04-19-2025 CT CERVICAL SPINE WO IV CONTRAST Patient Name: PILY BARNES : 1950 Exam Date/Time: 04/19/2025 16:14 Procedure: CT CERVICAL SPINE WO IV CONTRAST Ordering Provider: BOONE AKASH Reason For Exam: fall CT HEAD: CLINICAL INDICATION: Trauma with head and neck pain TECHNIQUE: Transaxial CT sequence performed through the head with 3 mm reconstruction. Sagittal and Coronal reconstruction images included. Dose reduction employed with automated exposure control. COMPARISON: None FINDINGS: Ventricles and Extra-axial spaces: Generalized enlargement of the ventricles and sulci. No abnormal extracerebral collection identified. Cerebral and cerebellar parenchyma: No mass, mass effect, or midline shift. The holland-white junction is maintained. Patchy white matter hypodensities, nonspecific but compatible with moderate chronic microvascular angiopathy. Hemorrhage: None Brainstem: Unremarkable within the confines of attenuation artifact. Visualized Paranasal sinuses: Normal. Mastoid air cells: Normal Visualized Orbits: No acute abnormality. Bilateral ocular lens implants. Calvarium and skull base: Intact. Other: Atherosclerotic calcification within the distal internal carotid and vertebral arteries IMPRESSION: No acute intracranial hemorrhage or mass effect. CT CERVICAL SPINE: TECHNIQUE: Transaxial sequence through the cervical spine. Coronal and sagittal reconstructions included. Dose reduction was employed with automated exposure control. COMPARISON: CT cervical spine 01/12/2023 FINDINGS: Cervical vertebrae and joints: Degenerative changes at the craniocervical junction that is otherwise maintained. Demineralized osseous structures. Status post C3-C6 ACDF. The hardware appears intact without evidence of loosening. No acute fracture. No suspicious osseous abnormality. Multilevel facet arthrosis and uncovertebral hypertrophy. Intervertebral disc spaces and spinal canal: Disc height loss at C2-C3 and within the lower cervical/upper thoracic spine. No severe spinal canal stenosis. Soft tissues: No prevertebral edema. Surgically absent left thyroid lobe. Right thyroid lobe nodules measure up to 1.3 cm in size. Other: Scarring at both lung apices. IMPRESSION: No acute abnormality of the cervical spine. Incidentally noted 1.3 cm right thyroid lobe nodule. Follow-up recommended as below. Follow-up thyroid ultrasound is recommended for any suspicious thyroid nodule. Suspicious thyroid nodules include: Nodules "e1 cm in patients <35 years old Nodules "e1.5 cm in patients "e35 years old Nodules with suspicious lymph nodes (enlarged, cystic, calcified, or hyperenhancing) Nodules with local tissue invasion Patients with comorbidities or limited life expectancy should not have further evaluation of the thyroid nodule, unless it is warranted clinically, or specifically requested by the patient or referring physician. Reference: Brenna Graham et al "Managing incidental thyroid nodules detected on imaging: White paper of the ACR incidental thyroid findings committee" J Am Velasquez Radiol 2015;12:143-150. Report Dictated on Electronically Signed By: Kendy Strickland DO Electronically Signed Date/Time: 04/19/2025 4:59 PM EDT Pt arrived via EMS from [facility] after a fall in the bathroom. Pt denies hitting head or LOC. Denies blood thinners. Pt reports she slipped in the bathroom and tried to break her fall and hit the wall and the floor. Pt complains of right hip pain, 4/10 when laying still, 9/10 with movement. + right leg shortening noted. Pt normally uses walker or wheelchair for movement. Reports she was using her walker prior to falling, but did not have walker at time of incident, but reports she is supposed to have aide with her. Pt is A&O x 4, VSS and able to answer questions appropriately. Normal [facility] CT CHEST ABDOMEN PELVIS WO C [facility] 04-19-2025 CT CHEST ABDOMEN PELVIS WO CONTRAST Patient Name: PILY BARNES : 1950 [facility]#: [id number] Exam Date/Time: 04/19/2025 16:14 Procedure: CT CHEST ABDOMEN PELVIS WO CONTRAST Ordering Provider: BOONE AKASH Reason For Exam: Fall Gender: Female Age: 74 years Exam: CT CHEST ABDOMEN PELVIS WO CONTRAST, CT LUMBAR SPINE RECON, CT THORACIC SPINE RECON INDICATION: Patient fell in bathroom. Right hip pain. Ascending aortic aneurysm measuring 4.6 cm. Scan Parameters: Multiple axial 1mm images were obtained of the chest and 3mm images of the abdomen and pelvis. Coronal and sagittal reconstructions were reviewed as well. Dose reduction was employed with automated exposure control. Additional reconstructed MIP images provided with 3-D postprocessing. Reconstructed 2 mm images (axial, coronal, sagittal) were obtained and provided as CT thoracic spine and CT lumbar spine. CONTRAST: No IV and oral contrast. COMPARISON: CT abdomen and pelvis 12/17/2023; CT cervical spine 01/12/2023 FINDINGS: CHEST: There is no pneumothorax, confluent consolidation, or sizable pleural effusion. The right hemidiaphragm remains elevated. Right thyroid lobe 9 mm rim calcified nodule, unchanged from 01/12/2023. The airway is patent. The esophagus is not well-distended. A small sliding-type hiatal hernia is present. There is no mediastinal, hilar, or axillary adenopathy. The heart is enlarged. There is no pericardial effusion. Coronary artery and aortic atherosclerotic calcifications are present. Ascending aortic aneurysm again measures 4.6 cm, not significantly changed from 12/17/2023. The bones are osteopenic. Anterior cervical fusion, partially included in the [id number]. There is no acute fracture of the clavicles, scapula, sternum, ribs, or thoracic spine. THORACIC SPINE: There is kyphosis of the thoracic spine. There is no acute fracture. There is no significant central canal narrowing or paravertebral hematoma. ABDOMEN AND PELVIS: Atherosclerotic calcifications are present along the aorta and branches. The liver, gallbladder, pancreas, spleen, and adrenal glands are within normal limits. Bilateral parapelvic cysts are present without obstructive uropathy. There is no obstructing ureteral calculus. The bladder contour is normal without wall thickening. The uterus is surgically absent. The appendix is not visualized (no CT evidence for appendicitis). Multiple colonic diverticuli are present. Fecal retention is present. There is no bowel obstruction. A small sliding-type hiatal hernia is present. There is no lymphadenopathy. There is a complex comminuted impaction intertrochanteric right femur fracture. The femur head is not dislocated. The iliac bones, acetabulum, pubic rami and sacrum are intact. LUMBAR SPINE: There is no acute fracture of the lumbar spine. There is grade 1 anterolisthesis L4-L5. Endplate benign Schmorl's nodes are present at L3 and L2. Loss of disc space height is most prominent at L2-L3 and L3-L4. There is no significant central canal stenosis. IMPRESSION: CHEST (with CT thoracic spine): 1. No traumatic intrathoracic process. 2. No traumatic fracture of the thoracic spine. 3. Atherosclerotic disease. Ascending aortic aneurysm again measures 4.6 cm, not significantly changed from 12/17/2023. ABDOMEN/PELVIS (with CT lumbar spine): 1. Acute RIGHT femur intertrochanteric comminuted impaction fracture. Osteopenia. 2. No traumatic fracture of the lumbar spine. 3. Other: Persistent elevation of the right hemidiaphragm. Colonic diverticulosis. Atherosclerotic disease. Parapelvic cysts. Report Dictated on Electronically Signed By: Cee Del Angel MD Electronically Signed Date/Time: 04/19/2025 5:23 PM EDT Pt arrived via EMS from [facility] living facility after a fall in the bathroom. Pt denies hitting head or LOC. Denies blood thinners. Pt reports she slipped in the bathroom and tried to break her fall and hit the wall and the floor. Pt complains of right hip pain, 4/10 when laying still, 9/10 with movement. + right leg shortening noted. Pt normally uses walker or wheelchair for movement. Reports she was using her walker prior to falling, but did not have walker at time of incident, but reports she is supposed to have aide with her. Pt is A&O x 4, VSS and able to answer questions appropriately. Normal [facility] CT Cervical spine WO joselin ton 04-19-2025 Patient Name: PILY BARNES : 1950 Exam Date/Time: 04/19/2025 16:14 Procedure: CT CERVICAL SPINE WO IV CONTRAST Ordering Provider: BOONE AKASH Reason For Exam: fall CT HEAD: CLINICAL INDICATION: Trauma with head and neck pain TECHNIQUE: Transaxial CT sequence performed through the head with 3 mm reconstruction. Sagittal and Coronal reconstruction images included. Dose reduction employed with automated exposure control. COMPARISON: None FINDINGS: Ventricles and Extra-axial spaces: Generalized enlargement of the ventricles and sulci. No abnormal extracerebral collection identified. Cerebral and cerebellar parenchyma: No mass, mass effect, or midline shift. The holland-white junction is maintained. Patchy white matter hypodensities, nonspecific but compatible with moderate chronic microvascular angiopathy. Hemorrhage: None Brainstem: Unremarkable within the confines of attenuation artifact. Visualized Paranasal sinuses: Normal. Mastoid air cells: Normal Visualized Orbits: No acute abnormality. Bilateral ocular lens implants. Calvarium and skull base: Intact. Other: Atherosclerotic calcification within the distal internal carotid and vertebral arteries [facility] Franco Stricklandcia Inocencio DO - 04/19/2025 Patient Name: PILY BARNES : 1950 Exam Date/Time: 04/19/2025 16:14 Procedure: CT CERVICAL SPINE WO IV CONTRAST Ordering Provider: BOONE AKASH Reason For Exam: fall CT HEAD: CLINICAL INDICATION: Trauma with head and neck pain TECHNIQUE: Transaxial CT sequence performed through the head with 3 mm reconstruction. Sagittal and Coronal reconstruction images included. Dose reduction employed with automated exposure control. COMPARISON: None FINDINGS: Ventricles and Extra-axial spaces: Generalized enlargement of the ventricles and sulci. No abnormal extracerebral collection identified. Cerebral and cerebellar parenchyma: No mass, mass effect, or midline shift. The holland-white junction is maintained. Patchy white matter hypodensities, nonspecific but compatible with moderate chronic microvascular angiopathy. Hemorrhage: None Brainstem: Unremarkable within the confines of attenuation artifact. Visualized Paranasal sinuses: Normal. Mastoid air cells: Normal Visualized Orbits: No acute abnormality. Bilateral ocular lens implants. Calvarium and skull base: Intact. Other: Atherosclerotic calcification within the distal internal carotid and vertebral arteries IMPRESSION: No acute intracranial hemorrhage or mass effect. CT CERVICAL SPINE: TECHNIQUE: Transaxial sequence through the cervical spine. Coronal and sagittal reconstructions included. Dose reduction was employed with automated exposure control. COMPARISON: CT cervical spine 01/12/2023 FINDINGS: Cervical vertebrae and joints: Degenerative changes at the craniocervical junction that is otherwise maintained. Demineralized osseous structures. Status post C3-C6 ACDF. The hardware appears intact without evidence of loosening. No acute fracture. No suspicious osseous abnormality. Multilevel facet arthrosis and uncovertebral hypertrophy. Intervertebral disc spaces and spinal canal: Disc height loss at C2-C3 and within the lower cervical/upper thoracic spine. No severe spinal canal stenosis. Soft tissues: No prevertebral edema. Surgically absent left thyroid lobe. Right thyroid lobe nodules measure up to 1.3 cm in size. Other: Scarring at both lung apices. IMPRESSION: No acute abnormality of the cervical spine. Incidentally noted 1.3 cm right thyroid lobe nodule. Follow-up recommended as below. Follow-up thyroid ultrasound is recommended for any suspicious thyroid nodule. Suspicious thyroid nodules include: Nodules "e1 cm in patients <35 years old Nodules "e1.5 cm in patients "e35 years old Nodules with suspicious lymph nodes (enlarged, cystic, calcified, or hyperenhancing) Nodules with local tissue invasion Patients with comorbidities or limited life expectancy should not have further evaluation of the thyroid nodule, unless it is warranted clinically, or specifically requested by the patient or referring physician. Reference: Brenna Graham et al "Managing incidental thyroid nodules detected on imaging: White paper of the ACR incidental thyroid findings committee" J Am Velasquez Radiol 2015;12:143-150. Report Dictated on Electronically Signed By: Kendy Strickland DO Electronically Signed Date/Time: 04/19/2025 4:59 PM EDT [facility] Radiology Study observation (narrative) [facility] alth CT FEMUR RIGHT WO IV CONTRAS Ton 08-16-2025 CT FEMUR RIGHT WO IV CONTRAST Patient Name: PILY BARNES : 1950 Exam Date/Time: 04/19/2025 16:35 Procedure: CT FEMUR RIGHT WO IV CONTRAST Ordering Provider: SAHU KALI Reason For Exam: suspected hip fracture CT RIGHT FEMUR: Clinical Indication: Right hip PAIN. Right hip fracture. Fall. Imaging Technique: Multiple axial 1mm CT images of the right femur were obtained. Coronal and sagittal reconstructs were rendered. Dose reduction was employed with automated exposure control. Comparison: CT chest, abdomen, pelvis FINDINGS: There is a right femur intertrochanteric comminuted impaction fracture. The femur head is not dislocated. The bone mineralization is decreased. There is no fluid within the joint at the knee. The acetabulum, pubic rami, and iliac bone appear intact. Multiple colonic diverticuli are present. Fecal retention is present. IMPRESSION: 1. Acute RIGHT femur intertrochanteric comminuted impaction fracture. Osteopenia. 2. Colonic diverticulosis. Report Dictated on Electronically Signed By: Cee Del Angel MD Electronically Signed Date/Time: 04/19/2025 5:50 PM EDT Pt arrived via EMS from [facility] after a fall in the bathroom. Pt denies hitting head or LOC. Denies blood thinners. Pt reports she slipped in the bathroom and tried to break her fall and hit the wall and the floor. Pt complains of right hip pain, 4/10 when laying still, 9/10 with movement. + right leg shortening noted. Pt normally uses walker or wheelchair for movement. Reports she was using her walker prior to falling, but did not have walker at time of incident, but reports she is supposed to have aide with her. Pt is A&O x 4, VSS and able to answer questions appropriately. Normal [facility] CT HEAD WO IV CONTRASTon CT HEAD WO IV CONTRAST Patient Name: PILY HEBERT : 1950 Exam Date/Time: 04/19/2025 16:14 Procedure: CT HEAD WO IV CONTRAST Ordering Provider: BOONE AKASH Reason For Exam: Fall CT HEAD: CLINICAL INDICATION: Trauma with head and neck pain TECHNIQUE: Transaxial CT sequence performed through the head with 3 mm reconstruction. Sagittal and Coronal reconstruction images included. Dose reduction employed with automated exposure control. COMPARISON: None FINDINGS: Ventricles and Extra-axial spaces: Generalized enlargement of the ventricles and sulci. No abnormal extracerebral collection identified. Cerebral and cerebellar parenchyma: No mass, mass effect, or midline shift. The holland-white junction is maintained. Patchy white matter hypodensities, nonspecific but compatible with moderate chronic microvascular angiopathy. Hemorrhage: None Brainstem: Unremarkable within the confines of attenuation artifact. Visualized Paranasal sinuses: Normal. Mastoid air cells: Normal Visualized Orbits: No acute abnormality. Bilateral ocular lens implants. Calvarium and skull base: Intact. Other: Atherosclerotic calcification within the distal internal carotid and vertebral arteries IMPRESSION: No acute intracranial hemorrhage or mass effect. CT CERVICAL SPINE: TECHNIQUE: Transaxial sequence through the cervical spine. Coronal and sagittal reconstructions included. Dose reduction was employed with automated exposure control. COMPARISON: CT cervical spine 01/12/2023 FINDINGS: Cervical vertebrae and joints: Degenerative changes at the craniocervical junction that is otherwise maintained. Demineralized osseous structures. Status post C3-C6 ACDF. The hardware appears intact without evidence of loosening. No acute fracture. No suspicious osseous abnormality. Multilevel facet arthrosis and uncovertebral hypertrophy. Intervertebral disc spaces and spinal canal: Disc height loss at C2-C3 and within the lower cervical/upper thoracic spine. No severe spinal canal stenosis. Soft tissues: No prevertebral edema. Surgically absent left thyroid lobe. Right thyroid lobe nodules measure up to 1.3 cm in size. Other: Scarring at both lung apices. IMPRESSION: No acute abnormality of the cervical spine. Incidentally noted 1.3 cm right thyroid lobe nodule. Follow-up recommended as below. Follow-up thyroid ultrasound is recommended for any suspicious thyroid nodule. Suspicious thyroid nodules include: Nodules "e1 cm in patients <35 years old Nodules "e1.5 cm in patients "e35 years old Nodules with suspicious lymph nodes (enlarged, cystic, calcified, or hyperenhancing) Nodules with local tissue invasion Patients with comorbidities or limited life expectancy should not have further evaluation of the thyroid nodule, unless it is warranted clinically, or specifically requested by the patient or referring physician. Reference: Houng J. et al "Managing incidental thyroid nodules detected on imaging: White paper of the ACR incidental thyroid findings committee" J Am Velasquez Radiol 2015;12:143-150. Report Dictated on Electronically Signed By: Kendy Strickland DO Electronically Signed Date/Time: 04/19/2025 4:59 PM EDT Pt arrived via EMS from [facility] after a fall in the bathroom. Pt denies hitting head or LOC. Denies blood thinners. Pt reports she slipped in the bathroom and tried to break her fall and hit the wall and the floor. Pt complains of right hip pain, 4/10 when laying still, 9/10 with movement. + right leg shortening noted. Pt normally uses walker or wheelchair for movement. Reports she was using her walker prior to falling, but did not have walker at time of incident, but reports she is supposed to have aide with her. Pt is A&O x 4, VSS and able to answer questions appropriately. Normal [facility] CT Head WO contraston 2024 Patient Name: PILY BARNES : 1950 Exam Date/Time: 04/19/2025 16:14 Procedure: CT HEAD WO IV CONTRAST Ordering Provider: BOONE AKASH Reason For Exam: Fall CT HEAD: CLINICAL INDICATION: Trauma with head and neck pain TECHNIQUE: Transaxial CT sequence performed through the head with 3 mm reconstruction. Sagittal and Coronal reconstruction images included. Dose reduction employed with automated exposure control. COMPARISON: None FINDINGS: Ventricles and Extra-axial spaces: Generalized enlargement of the ventricles and sulci. No abnormal extracerebral collection identified. Cerebral and cerebellar parenchyma: No mass, mass effect, or midline shift. The holland-white junction is maintained. Patchy white matter hypodensities, nonspecific but compatible with moderate chronic microvascular angiopathy. Hemorrhage: None Brainstem: Unremarkable within the confines of attenuation artifact. Visualized Paranasal sinuses: Normal. Mastoid air cells: Normal Visualized Orbits: No acute abnormality. Bilateral ocular lens implants. Calvarium and skull base: Intact. Other: Atherosclerotic calcification within the distal internal carotid and vertebral arteries [facility] Kendy Strickland DO - 04/19/2025 Patient Name: PILY BARNES : 1950 [facility]#: [id number] Exam Date/Time: 04/19/2025 16:14 Procedure: CT HEAD WO IV CONTRAST Ordering Provider: BOONE AKASH Reason For Exam: Fall CT HEAD: CLINICAL INDICATION: Trauma with head and neck pain TECHNIQUE: Transaxial CT sequence performed through the head with 3 mm reconstruction. Sagittal and Coronal reconstruction images included. Dose reduction employed with automated exposure control. COMPARISON: None FINDINGS: Ventricles and Extra-axial spaces: Generalized enlargement of the ventricles and sulci. No abnormal extracerebral collection identified. Cerebral and cerebellar parenchyma: No mass, mass effect, or midline shift. The holland-white junction is maintained. Patchy white matter hypodensities, nonspecific but compatible with moderate chronic microvascular angiopathy. Hemorrhage: None Brainstem: Unremarkable within the confines of attenuation artifact. Visualized Paranasal sinuses: Normal. Mastoid air cells: Normal Visualized Orbits: No acute abnormality. Bilateral ocular lens implants. Calvarium and skull base: Intact. Other: Atherosclerotic calcification within the distal internal carotid and vertebral arteries IMPRESSION: No acute intracranial hemorrhage or mass effect. CT CERVICAL SPINE: TECHNIQUE: Transaxial sequence through the cervical spine. Coronal and sagittal reconstructions included. Dose reduction was employed with automated exposure control. COMPARISON: CT cervical spine 01/12/2023 FINDINGS: Cervical vertebrae and joints: Degenerative changes at the craniocervical junction that is otherwise maintained. Demineralized osseous structures. Status post C3-C6 ACDF. The hardware appears intact without evidence of loosening. No acute fracture. No suspicious osseous abnormality. Multilevel facet arthrosis and uncovertebral hypertrophy. Intervertebral disc spaces and spinal canal: Disc height loss at C2-C3 and within the lower cervical/upper thoracic spine. No severe spinal canal stenosis. Soft tissues: No prevertebral edema. Surgically absent left thyroid lobe. Right thyroid lobe nodules measure up to 1.3 cm in size. Other: Scarring at both lung apices. IMPRESSION: No acute abnormality of the cervical spine. Incidentally noted 1.3 cm right thyroid lobe nodule. Follow-up recommended as below. Follow-up thyroid ultrasound is recommended for any suspicious thyroid nodule. Suspicious thyroid nodules include: Nodules "e1 cm in patients <35 years old Nodules "e1.5 cm in patients "e35 years old Nodules with suspicious lymph nodes (enlarged, cystic, calcified, or hyperenhancing) Nodules with local tissue invasion Patients with comorbidities or limited life expectancy should not have further evaluation of the thyroid nodule, unless it is warranted clinically, or specifically requested by the patient or referring physician. Reference: Brenna Cordova al "Managing incidental thyroid nodules detected on imaging: White paper of the ACR incidental thyroid findings committee" J Am Velasquez Radiol 2015;12:143-150. Report Dictated on Electronically Signed By: Kendy Strickland DO Electronically Signed Date/Time: 04/19/2025 4:59 PM EDT [facility] Radiology Study observation (narrative) [facility] CT LUMBAR SPINE RECONon 04-04 CT LUMBAR SPINE RECON Patient Name: PILY LOPEZ : 1950 Exam Date/Time: 04/19/2025 16:14 Procedure: CT LUMBAR SPINE RECON Ordering Provider: BOONE AKASH Reason For Exam: fall Gender: Female Age: 74 years Exam: CT CHEST ABDOMEN PELVIS WO CONTRAST, CT LUMBAR SPINE RECON, CT THORACIC SPINE RECON INDICATION: Patient fell in bathroom. Right hip pain. Ascending aortic aneurysm measuring 4.6 cm. Scan Parameters: Multiple axial 1mm images were obtained of the chest and 3mm images of the abdomen and pelvis. Coronal and sagittal reconstructions were reviewed as well. Dose reduction was employed with automated exposure control. Additional reconstructed MIP images provided with 3-D postprocessing. Reconstructed 2 mm images (axial, coronal, sagittal) were obtained and provided as CT thoracic spine and CT lumbar spine. CONTRAST: No IV and oral contrast. COMPARISON: CT abdomen and pelvis 12/17/2023; CT cervical spine 01/12/2023 FINDINGS: CHEST: There is no pneumothorax, confluent consolidation, or sizable pleural effusion. The right hemidiaphragm remains elevated. Right thyroid lobe 9 mm rim calcified nodule, unchanged from 01/12/2023. The airway is patent. The esophagus is not well-distended. A small sliding-type hiatal hernia is present. There is no mediastinal, hilar, or axillary adenopathy. The heart is enlarged. There is no pericardial effusion. Coronary artery and aortic atherosclerotic calcifications are present. Ascending aortic aneurysm again measures 4.6 cm, not significantly changed from 12/17/2023. The bones are osteopenic. Anterior cervical fusion, partially included in the [id number]. There is no acute fracture of the clavicles, scapula, sternum, ribs, or thoracic spine. THORACIC SPINE: There is kyphosis of the thoracic spine. There is no acute fracture. There is no significant central canal narrowing or paravertebral hematoma. ABDOMEN AND PELVIS: Atherosclerotic calcifications are present along the aorta and branches. The liver, gallbladder, pancreas, spleen, and adrenal glands are within normal limits. Bilateral parapelvic cysts are present without obstructive uropathy. There is no obstructing ureteral calculus. The bladder contour is normal without wall thickening. The uterus is surgically absent. The appendix is not visualized (no CT evidence for appendicitis). Multiple colonic diverticuli are present. Fecal retention is present. There is no bowel obstruction. A small sliding-type hiatal hernia is present. There is no lymphadenopathy. There is a complex comminuted impaction intertrochanteric right femur fracture. The femur head is not dislocated. The iliac bones, acetabulum, pubic rami and sacrum are intact. LUMBAR SPINE: There is no acute fracture of the lumbar spine. There is grade 1 anterolisthesis L4-L5. Endplate benign Schmorl's nodes are present at L3 and L2. Loss of disc space height is most prominent at L2-L3 and L3-L4. There is no significant central canal stenosis. IMPRESSION: CHEST (with CT thoracic spine): 1. No traumatic intrathoracic process. 2. No traumatic fracture of the thoracic spine. 3. Atherosclerotic disease. Ascending aortic aneurysm again measures 4.6 cm, not significantly changed from 12/17/2023. ABDOMEN/PELVIS (with CT lumbar spine): 1. Acute RIGHT femur intertrochanteric comminuted impaction fracture. Osteopenia. 2. No traumatic fracture of the lumbar spine. 3. Other: Persistent elevation of the right hemidiaphragm. Colonic diverticulosis. Atherosclerotic disease. Parapelvic cysts. Report Dictated on Electronically Signed By: Cee Del Angel MD Electronically Signed Date/Time: 04/19/2025 5:23 PM EDT Pt arrived via EMS from [facility] after a fall in the bathroom. Pt denies hitting head or LOC. Denies blood thinners. Pt reports she slipped in the bathroom and tried to break her fall and hit the wall and the floor. Pt complains of right hip pain, 4/10 when laying still, 9/10 with movement. + right leg shortening noted. Pt normally uses walker or wheelchair for movement. Reports she was using her walker prior to falling, but did not have walker at time of incident, but reports she is supposed to have aide with her. Pt is A&O x 4, VSS and able to answer questions appropriately. Normal [facility] CT Lumbar spine WO contrasto n 04-19-2025 Patient Name: PILY BARNES : 1950 Exam Date/Time: 04/19/2025 16:14 Procedure: CT LUMBAR SPINE RECON Ordering Provider: BOONE AKASH Reason For Exam: fall Gender: Female Age: 74 years Exam: CT CHEST ABDOMEN PELVIS WO CONTRAST, CT LUMBAR SPINE RECON, CT THORACIC SPINE RECON INDICATION: Patient fell in bathroom. Right hip pain. Ascending aortic aneurysm measuring 4.6 cm. Scan Parameters: Multiple axial 1mm images were obtained of the chest and 3mm images of the abdomen and pelvis. Coronal and sagittal reconstructions were reviewed as well. Dose reduction was employed with automated exposure control. Additional reconstructed MIP images provided with 3-D postprocessing. Reconstructed 2 mm images (axial, coronal, sagittal) were obtained and provided as CT thoracic spine and CT lumbar spine. CONTRAST: No IV and oral contrast. COMPARISON: CT abdomen and pelvis 12/17/2023; CT cervical spine 01/12/2023 FINDINGS: CHEST: There is no pneumothorax, confluent consolidation, or sizable pleural effusion. The right hemidiaphragm remains elevated. Right thyroid lobe 9 mm rim calcified nodule, unchanged from 01/12/2023. The airway is patent. The esophagus is not well-distended. A small sliding-type hiatal hernia is present. There is no mediastinal, hilar, or axillary adenopathy. The heart is enlarged. There is no pericardial effusion. Coronary artery and aortic atherosclerotic calcifications are present. Ascending aortic aneurysm again measures 4.6 cm, not significantly changed from 12/17/2023. The bones are osteopenic. Anterior cervical fusion, partially included in the [id number]. There is no acute fracture of the clavicles, scapula, sternum, ribs, or thoracic spine. THORACIC SPINE: There is kyphosis of the thoracic spine. There is no acute fracture. There is no significant central canal narrowing or paravertebral hematoma. ABDOMEN AND PELVIS: Atherosclerotic calcifications are present along the aorta and branches. The liver, gallbladder, pancreas, spleen, and adrenal glands are within normal limits. Bilateral parapelvic cysts are present without obstructive uropathy. There is no obstructing ureteral calculus. The bladder contour is normal without wall thickening. The uterus is surgically absent. The appendix is not visualized (no CT evidence for appendicitis). Multiple colonic diverticuli are present. Fecal retention is present. There is no bowel obstruction. A small sliding-type hiatal hernia is present. There is no lymphadenopathy. There is a complex comminuted impaction intertrochanteric right femur fracture. The femur head is not dislocated. The iliac bones, acetabulum, pubic rami and sacrum are intact. LUMBAR SPINE: There is no acute fracture of the lumbar spine. There is grade 1 anterolisthesis L4-L5. Endplate benign Schmorl's nodes are present at L3 and L2. Loss of disc space height is most prominent at L2-L3 and L3-L4. There is no significant central canal stenosis. [facility] Cee Del Angel MD - 04/19/2025 [facility] 1950 [id number] Exam Date/Time: 04/19/2025 16:14 Procedure: CT LUMBAR SPINE RECON Ordering Provider: BOONE AKASH Reason For Exam: fall Gender: Female Age: 74 years Exam: CT CHEST ABDOMEN PELVIS WO CONTRAST, CT LUMBAR SPINE RECON, CT THORACIC SPINE RECON INDICATION: Patient fell in bathroom. Right hip pain. Ascending aortic aneurysm measuring 4.6 cm. Scan Parameters: Multiple axial 1mm images were obtained of the chest and 3mm images of the abdomen and pelvis. Coronal and sagittal reconstructions were reviewed as well. Dose reduction was employed with automated exposure control. Additional reconstructed MIP images provided with 3-D postprocessing. Reconstructed 2 mm images (axial, coronal, sagittal) were obtained and provided as CT thoracic spine and CT lumbar spine. CONTRAST: No IV and oral contrast. COMPARISON: CT abdomen and pelvis 12/17/2023; CT cervical spine 01/12/2023 FINDINGS: CHEST: There is no pneumothorax, confluent consolidation, or sizable pleural effusion. The right hemidiaphragm remains elevated. Right thyroid lobe 9 mm rim calcified nodule, unchanged from 01/12/2023. The airway is patent. The esophagus is not well-distended. A small sliding-type hiatal hernia is present. There is no mediastinal, hilar, or axillary adenopathy. The heart is enlarged. There is no pericardial effusion. Coronary artery and aortic atherosclerotic calcifications are present. Ascending aortic aneurysm again measures 4.6 cm, not significantly changed from 12/17/2023. The bones are osteopenic. Anterior cervical fusion, partially included in the [id number]. There is no acute fracture of the clavicles, scapula, sternum, ribs, or thoracic spine. THORACIC SPINE: There is kyphosis of the thoracic spine. There is no acute fracture. There is no significant central canal narrowing or paravertebral hematoma. ABDOMEN AND PELVIS: Atherosclerotic calcifications are present along the aorta and branches. The liver, gallbladder, pancreas, spleen, and adrenal glands are within normal limits. Bilateral parapelvic cysts are present without obstructive uropathy. There is no obstructing ureteral calculus. The bladder contour is normal without wall thickening. The uterus is surgically absent. The appendix is not visualized (no CT evidence for appendicitis). Multiple colonic diverticuli are present. Fecal retention is present. There is no bowel obstruction. A small sliding-type hiatal hernia is present. There is no lymphadenopathy. There is a complex comminuted impaction intertrochanteric right femur fracture. The femur head is not dislocated. The iliac bones, acetabulum, pubic rami and sacrum are intact. LUMBAR SPINE: There is no acute fracture of the lumbar spine. There is grade 1 anterolisthesis L4-L5. Endplate benign Schmorl's nodes are present at L3 and L2. Loss of disc space height is most prominent at L2-L3 and L3-L4. There is no significant central canal stenosis. IMPRESSION: CHEST (with CT thoracic spine): 1. No traumatic intrathoracic process. 2. No traumatic fracture of the thoracic spine. 3. Atherosclerotic disease. Ascending aortic aneurysm again measures 4.6 cm, not significantly changed from 12/17/2023. ABDOMEN/PELVIS (with CT lumbar spine): 1. Acute RIGHT femur intertrochanteric comminuted impaction fracture. Osteopenia. 2. No traumatic fracture of the lumbar spine. 3. Other: Persistent elevation of the right hemidiaphragm. Colonic diverticulosis. Atherosclerotic disease. Parapelvic cysts. Report Dictated on Electronically Signed By: Cee Del Angel MD Electronically Signed Date/Time: 04/19/2025 5:23 PM EDT [facility] Radiology Study observation (narrative) [facility] alth CT THORACIC SPINE RECONon CT THORACIC SPINE RECON Patient Name: PILY SANDOVAL : 1950 Exam Date/Time: 04/19/2025 16:14 Procedure: CT THORACIC SPINE RECON Ordering Provider: BOONE AKASH Reason For Exam: fall Gender: Female Age: 74 years Exam: CT CHEST ABDOMEN PELVIS WO CONTRAST, CT LUMBAR SPINE RECON, CT THORACIC SPINE RECON INDICATION: Patient fell in bathroom. Right hip pain. Ascending aortic aneurysm measuring 4.6 cm. Scan Parameters: Multiple axial 1mm images were obtained of the chest and 3mm images of the abdomen and pelvis. Coronal and sagittal reconstructions were reviewed as well. Dose reduction was employed with automated exposure control. Additional reconstructed MIP images provided with 3-D postprocessing. Reconstructed 2 mm images (axial, coronal, sagittal) were obtained and provided as CT thoracic spine and CT lumbar spine. CONTRAST: No IV and oral contrast. COMPARISON: CT abdomen and pelvis 12/17/2023; CT cervical spine 01/12/2023 FINDINGS: CHEST: There is no pneumothorax, confluent consolidation, or sizable pleural effusion. The right hemidiaphragm remains elevated. Right thyroid lobe 9 mm rim calcified nodule, unchanged from 01/12/2023. The airway is patent. The esophagus is not well-distended. A small sliding-type hiatal hernia is present. There is no mediastinal, hilar, or axillary adenopathy. The heart is enlarged. There is no pericardial effusion. Coronary artery and aortic atherosclerotic calcifications are present. Ascending aortic aneurysm again measures 4.6 cm, not significantly changed from 12/17/2023. The bones are osteopenic. Anterior cervical fusion, partially included in the [id number]. There is no acute fracture of the clavicles, scapula, sternum, ribs, or thoracic spine. THORACIC SPINE: There is kyphosis of the thoracic spine. There is no acute fracture. There is no significant central canal narrowing or paravertebral hematoma. ABDOMEN AND PELVIS: Atherosclerotic calcifications are present along the aorta and branches. The liver, gallbladder, pancreas, spleen, and adrenal glands are within normal limits. Bilateral parapelvic cysts are present without obstructive uropathy. There is no obstructing ureteral calculus. The bladder contour is normal without wall thickening. The uterus is surgically absent. The appendix is not visualized (no CT evidence for appendicitis). Multiple colonic diverticuli are present. Fecal retention is present. There is no bowel obstruction. A small sliding-type hiatal hernia is present. There is no lymphadenopathy. There is a complex comminuted impaction intertrochanteric right femur fracture. The femur head is not dislocated. The iliac bones, acetabulum, pubic rami and sacrum are intact. LUMBAR SPINE: There is no acute fracture of the lumbar spine. There is grade 1 anterolisthesis L4-L5. Endplate benign Schmorl's nodes are present at L3 and L2. Loss of disc space height is most prominent at L2-L3 and L3-L4. There is no significant central canal stenosis. IMPRESSION: CHEST (with CT thoracic spine): 1. No traumatic intrathoracic process. 2. No traumatic fracture of the thoracic spine. 3. Atherosclerotic disease. Ascending aortic aneurysm again measures 4.6 cm, not significantly changed from 12/17/2023. ABDOMEN/PELVIS (with CT lumbar spine): 1. Acute RIGHT femur intertrochanteric comminuted impaction fracture. Osteopenia. 2. No traumatic fracture of the lumbar spine. 3. Other: Persistent elevation of the right hemidiaphragm. Colonic diverticulosis. Atherosclerotic disease. Parapelvic cysts. Report Dictated on Electronically Signed By: Cee Del Angel MD Electronically Signed Date/Time: 04/19/2025 5:23 PM EDT Pt arrived via EMS from [facility] after a fall in the bathroom. Pt denies hitting head or LOC. Denies blood thinners. Pt reports she slipped in the bathroom and tried to break her fall and hit the wall and the floor. Pt complains of right hip pain, 4/10 when laying still, 9/10 with movement. + right leg shortening noted. Pt normally uses walker or wheelchair for movement. Reports she was using her walker prior to falling, but did not have walker at time of incident, but reports she is supposed to have aide with her. Pt is A&O x 4, VSS and able to answer questions appropriately. [facility] CT Thigh - right WO contrast on 04-19-2025 1. Acute RIGHT femur intertrochanteric comminuted impaction fracture. Osteopenia. 2. Colonic diverticulosis. Report Dictated on Electronically Signed By: Cee Del Angel MD Electronically Signed Date/Time: 04/19/2025 5:50 PM EDT [facility] Patient Name: PILY BARNES : 1950 Exam Date/Time: 04/19/2025 16:35 Procedure: CT FEMUR RIGHT WO IV CONTRAST Ordering Provider: SAHU KALI Reason For Exam: suspected hip fracture CT RIGHT FEMUR: Clinical Indication: Right hip PAIN. Right hip fracture. Fall. Imaging Technique: Multiple axial 1mm CT images of the right femur were obtained. Coronal and sagittal reconstructs were rendered. Dose reduction was employed with automated exposure control. Comparison: CT chest, abdomen, pelvis FINDINGS: There is a right femur intertrochanteric comminuted impaction fracture. The femur head is not dislocated. The bone mineralization is decreased. There is no fluid within the joint at the knee. The acetabulum, pubic rami, and iliac bone appear intact. Multiple colonic diverticuli are present. Fecal retention is present. [facility] Cee Del Angel MD - 04/19/2025 Patient Name: PILY BARNES : 1950 Exam Date/Time: 04/19/2025 16:35 Procedure: CT FEMUR RIGHT WO IV CONTRAST Ordering Provider: SAHU KALI Reason For Exam: suspected hip fracture CT RIGHT FEMUR: Clinical Indication: Right hip PAIN. Right hip fracture. Fall. Imaging Technique: Multiple axial 1mm CT images of the right femur were obtained. Coronal and sagittal reconstructs were rendered. Dose reduction was employed with automated exposure control. Comparison: CT chest, abdomen, pelvis FINDINGS: There is a right femur intertrochanteric comminuted impaction fracture. The femur head is not dislocated. The bone mineralization is decreased. There is no fluid within the joint at the knee. The acetabulum, pubic rami, and iliac bone appear intact. Multiple colonic diverticuli are present. Fecal retention is present. IMPRESSION: 1. Acute RIGHT femur intertrochanteric comminuted impaction fracture. Osteopenia. 2. Colonic diverticulosis. Report Dictated on Electronically Signed By: Cee Del Angel MD Electronically Signed Date/Time: 04/19/2025 5:50 PM EDT [facility] Radiology Study observation (narrative) [facility] CT Thoracic spine WO contras ton 04-19-2025 [facility] 1950 [id number] Exam Date/Time: 04/19/2025 16:14 Procedure: CT THORACIC SPINE RECON Ordering Provider: BOONE AKASH Reason For Exam: fall Gender: Female Age: 74 years Exam: CT CHEST ABDOMEN PELVIS WO CONTRAST, CT LUMBAR SPINE RECON, CT THORACIC SPINE RECON INDICATION: Patient fell in bathroom. Right hip pain. Ascending aortic aneurysm measuring 4.6 cm. Scan Parameters: Multiple axial 1mm images were obtained of the chest and 3mm images of the abdomen and pelvis. Coronal and sagittal reconstructions were reviewed as well. Dose reduction was employed with automated exposure control. Additional reconstructed MIP images provided with 3-D postprocessing. Reconstructed 2 mm images (axial, coronal, sagittal) were obtained and provided as CT thoracic spine and CT lumbar spine. CONTRAST: No IV and oral contrast. COMPARISON: CT abdomen and pelvis 12/17/2023; CT cervical spine 01/12/2023 FINDINGS: CHEST: There is no pneumothorax, confluent consolidation, or sizable pleural effusion. The right hemidiaphragm remains elevated. Right thyroid lobe 9 mm rim calcified nodule, unchanged from 01/12/2023. The airway is patent. The esophagus is not well-distended. A small sliding-type hiatal hernia is present. There is no mediastinal, hilar, or axillary adenopathy. The heart is enlarged. There is no pericardial effusion. Coronary artery and aortic atherosclerotic calcifications are present. Ascending aortic aneurysm again measures 4.6 cm, not significantly changed from 12/17/2023. The bones are osteopenic. Anterior cervical fusion, partially included in the [id number]. There is no acute fracture of the clavicles, scapula, sternum, ribs, or thoracic spine. THORACIC SPINE: There is kyphosis of the thoracic spine. There is no acute fracture. There is no significant central canal narrowing or paravertebral hematoma. ABDOMEN AND PELVIS: Atherosclerotic calcifications are present along the aorta and branches. The liver, gallbladder, pancreas, spleen, and adrenal glands are within normal limits. Bilateral parapelvic cysts are present without obstructive uropathy. There is no obstructing ureteral calculus. The bladder contour is normal without wall thickening. The uterus is surgically absent. The appendix is not visualized (no CT evidence for appendicitis). Multiple colonic diverticuli are present. Fecal retention is present. There is no bowel obstruction. A small sliding-type hiatal hernia is present. There is no lymphadenopathy. There is a complex comminuted impaction intertrochanteric right femur fracture. The femur head is not dislocated. The iliac bones, acetabulum, pubic rami and sacrum are intact. LUMBAR SPINE: There is no acute fracture of the lumbar spine. There is grade 1 anterolisthesis L4-L5. Endplate benign Schmorl's nodes are present at L3 and L2. Loss of disc space height is most prominent at L2-L3 and L3-L4. There is no significant central canal stenosis. [facility] Cee Del Angel MD - 04/19/2025 [facility] 1950 [id number] Exam Date/Time: 04/19/2025 16:14 Procedure: CT THORACIC SPINE RECON Ordering Provider: BOONE AKASH Reason For Exam: fall Gender: Female Age: 74 years Exam: CT CHEST ABDOMEN PELVIS WO CONTRAST, CT LUMBAR SPINE RECON, CT THORACIC SPINE RECON INDICATION: Patient fell in bathroom. Right hip pain. Ascending aortic aneurysm measuring 4.6 cm. Scan Parameters: Multiple axial 1mm images were obtained of the chest and 3mm images of the abdomen and pelvis. Coronal and sagittal reconstructions were reviewed as well. Dose reduction was employed with automated exposure control. Additional reconstructed MIP images provided with 3-D postprocessing. Reconstructed 2 mm images (axial, coronal, sagittal) were obtained and provided as CT thoracic spine and CT lumbar spine. CONTRAST: No IV and oral contrast. COMPARISON: CT abdomen and pelvis 12/17/2023; CT cervical spine 01/12/2023 FINDINGS: CHEST: There is no pneumothorax, confluent consolidation, or sizable pleural effusion. The right hemidiaphragm remains elevated. Right thyroid lobe 9 mm rim calcified nodule, unchanged from 01/12/2023. The airway is patent. The esophagus is not well-distended. A small sliding-type hiatal hernia is present. There is no mediastinal, hilar, or axillary adenopathy. The heart is enlarged. There is no pericardial effusion. Coronary artery and aortic atherosclerotic calcifications are present. Ascending aortic aneurysm again measures 4.6 cm, not significantly changed from 12/17/2023. The bones are osteopenic. Anterior cervical fusion, partially included in the [id number]. There is no acute fracture of the clavicles, scapula, sternum, ribs, or thoracic spine. THORACIC SPINE: There is kyphosis of the thoracic spine. There is no acute fracture. There is no significant central canal narrowing or paravertebral hematoma. ABDOMEN AND PELVIS: Atherosclerotic calcifications are present along the aorta and branches. The liver, gallbladder, pancreas, spleen, and adrenal glands are within normal limits. Bilateral parapelvic cysts are present without obstructive uropathy. There is no obstructing ureteral calculus. The bladder contour is normal without wall thickening. The uterus is surgically absent. The appendix is not visualized (no CT evidence for appendicitis). Multiple colonic diverticuli are present. Fecal retention is present. There is no bowel obstruction. A small sliding-type hiatal hernia is present. There is no lymphadenopathy. There is a complex comminuted impaction intertrochanteric right femur fracture. The femur head is not dislocated. The iliac bones, acetabulum, pubic rami and sacrum are intact. LUMBAR SPINE: There is no acute fracture of the lumbar spine. There is grade 1 anterolisthesis L4-L5. Endplate benign Schmorl's nodes are present at L3 and L2. Loss of disc space height is most prominent at L2-L3 and L3-L4. There is no significant central canal stenosis. IMPRESSION: CHEST (with CT thoracic spine): 1. No traumatic intrathoracic process. 2. No traumatic fracture of the thoracic spine. 3. Atherosclerotic disease. Ascending aortic aneurysm again measures 4.6 cm, not significantly changed from 12/17/2023. ABDOMEN/PELVIS (with CT lumbar spine): 1. Acute RIGHT femur intertrochanteric comminuted impaction fracture. Osteopenia. 2. No traumatic fracture of the lumbar spine. 3. Other: Persistent elevation of the right hemidiaphragm. Colonic diverticulosis. Atherosclerotic disease. Parapelvic cysts. Report Dictated on Electronically Signed By: Cee Del Angel MD Electronically Signed Date/Time: 04/19/2025 5:23 PM EDT [facility] Radiology Study observation (narrative) [facility] iwona Consulton 04-19-2025 Consult Ortho Consult Patient: Pily Barnes Date of : 1950 Acct: [id number] PCP: No primary care provider on file. Date of Admission: 04/19/2025 Date of Service: Pt seen/examined on 04/19/2025 Chief Complaint: right hip pain History Of Present Illness: 74 y.o. female who presents with right hip pain after a fall from standing in the bathroom of his assisted living facility. The patient was unable to get up and had to call for help. Denies significant pain besides right hip. Denies head trauma and loss of consciousness. Denies numbness and tingling in affected extremity. PMH of anxiety, asthma, CKD, HTN, mitral valve insufficiency, SAH. Lives in assisted living. Orthopaedic surgery history C3-[address] Mcgill. Patient said they do not know why they had it and never had any neck issues. She has chronic numbness in her small fingers and ring fingers bilaterally. Patient ambulation status: mild difficulty and ambulates with: walker and sometimes uses wheelchair. Antiplatelets/Antico agulation includes: none. Hx from chart and/or Pt. Past Medical History: Medical History[1] Past Surgical History: Surgical History[2] Home Medications: Prior to Admission medications Medication Sig Start Date End Date Taking? Authorizing Provider albuterol 108 (90 Base) MCG/ACT inhaler INHALE TWO PUFFS BY MOUTH INTO THE LUNGS instructed EVERY 4 HOURS NEEDED FOR WHEEZING OR FOR SHORTNESS OF BREATH 02/22/22 Historical Provider, amLODIPine (Norvasc) 2.5 MG tablet Take 2.5 mg by mouth daily. 09/27/22 Historical Provider, ARIPiprazole (Abilify) 5 MG tablet Take 5 mg by mouth daily. 11/03/22 Historical Provider, MD Bosch Ellipta 100-25 MCG/ACT aerosol powder Inhale 1 puff daily. 11/05/22 Historical Provider, buPROPion XL (Wellbutrin XL) 300 MG 24 hr tablet Take 300 mg by mouth daily. 11/03/22 Historical ProviderMD Calcium + Vitamin D3 600-10 MG-MCG tablet Take 1 tablet by mouth daily. 600/400 10/20/22 Historical Provider, cholecalciferol (Vitamin D-3) 125 MCG (5000 UT) tablet Take 2,000 Units by mouth daily. Historical Provider, clonazePAM (KlonoPIN) 0.5 MG tablet Take 0.5 mg by mouth Daily as needed for anxiety. Historical Provider, famotidine (Pepcid) 20 MG tablet Take by mouth. Historical Provider, FLUoxetine (PROzac) 20 MG capsule Take 60 mg by mouth daily. 09/23/22 Historical Provider, fluticasone (Flonase) 50 MCG/ACT nasal spray Administer 2 sprays into each nostril Daily as needed for allergies. 02/22/22 Historical Provider, Invega Sustenna 39 MG/0.25ML suspension prefilled syringe Inject 39 mg into the shoulder, thigh, or buttocks every 30 (thirty) days. 09/23/22 Historical ProviderMD lamoTRIgine (LaMICtal) 25 MG tablet Take 50 mg by mouth daily. 11/07/22 Historical ProviderMD lisinopril 20 MG tablet Take 20 mg by mouth daily. 11/08/22 Historical Provider, Loratadine 10 MG capsule Take 10 mg by mouth daily. Historical Provider, Multiple Vitamin (High Potency Multivitamin) tablet Take 1 tablet by mouth daily. 09/27/22 Historical Provider, nystatin (Mycostatin) 211997 UNIT/GM powder Apply 1 Application topically 2 times daily. Under breasts Historical Provider, Omeprazole 20 MG tablet delayed-release 04/26/23 Historical Provider, Current Hospital Medications: Current Medications[3] Allergies: Sulfa antibiotics and Milk [milk (cow)] Social History: Social History Socioeconomic History Marital status: Spouse name: Not on file Number of children: Not on file Years of education: Not on file Highest education level: Not on file Occupational History Not on file Tobacco Use Smoking status: Never Smokeless tobacco: Never Vaping Use Vaping status: Never Used Substance and Sexual Activity Alcohol use: Never Drug use: Never Sexual activity: Not on file Other Topics Concern Not on file Social History Narrative Not on file Social Drivers of Health Financial Resource Strain: Low Risk (03/01/2022) Received from [facility] Overall Financial Resource Strain (CARDIA) Difficulty of Paying Living Expenses: Not hard at all Food Insecurity: No Food Insecurity (03/01/2022) Received from [facility] Hunger Vital Sign Worried About Running Out of Food in the Last Year: Never true Ran Out of Food in the Last Year: Never true Transportation Needs: No Transportation Needs (03/03/2023) PRAPARE - Transportation Lack of Transportation (Medical): No Lack of Transportation (Non-Medical): No Physical Activity: Not on file Stress: Not on file Social Connections: Not on file Intimate Partner Violence: Not At Risk (03/02/2023) Humiliation, Afraid, Rape, and Kick questionnaire Fear of Current or Ex-Partner: No Emotionally Abused: No Physically Abused: No Sexually Abused: No Housing Stability: High Risk (03/03/2023) Housing Stability Vital Sign Unable to Pay for Housing (more content not included)... [facility] ED Nursing Noteon 04-19-2025 ED Nursing Note Pt back to room from imaging. [facility] ED Nursing Note Pt off unit to imaging. [facility] ED Nursing Note Nurse Chel called for update [facility] ED Nursing Note Pt arrived via EMS from [facility] facility after a fall in the bathroom. Pt denies hitting head or LOC. Denies blood thinners. Pt reports she slipped in the bathroom and tried to break her fall and hit the wall and the floor. Pt complains of right hip pain, 4/10 when laying still, 9/10 with movement. + right leg shortening noted. Pt normally uses walker or wheelchair for movement. Reports she was using her walker prior to falling, but did not have walker at time of incident, but reports she is supposed to have aide with her. Pt is A&O x 4, VSS and able to answer questions appropriately. [facility] ED Provider Noteon ED Provider Note Emergency Department Encounter [facility] ED Patient: Pily Barnes : 1950 Date of Evaluation: 04/19/2025 ED Supervising Physician: Javon Boone DO I personally evaluated Pily Barnes and made/approved the management plan and take responsibility for the patient management. This will serve as my Supervisory note and shared attestation. I did perform a substantive portion of the visit including all aspects of the Medical Decision Making. I wore appropriate PPE for the entirety of this encounter. In brief, Pily Barnes is a 74 y.o. that presents to the emergency department with complaints of right-sided hip pain status post fall. Patient reports that she was at the sink washing, lost her balance and fell. She was unable to catch herself. She now endorsing back and right-sided hip pain. She denies any fevers, chills, loss of bladder or bowel control. No recent travel. No known sick contacts. Focused exam: On exam, vitals stable. Gen: Nontoxic appearing. Head: NC/AT. CV: RRR. Resp: CTA bilaterally. Abd: Abd soft and notender. Back: No midline vertebral tenderness, no stepoff, no deformity Ext: RLE ext rotated, shortened Neuro: No focal neurologic deficit. Skin: No obvious rashes, warm, dry Brief ED course/MDM: Patient with hx of HTN< syncope presents to the ED with a chief complaint of fall, hip pain. Additional information found above and also refer to joyce/resident note for further details. On exam, vitals stable. Per above. Otherwise per above Additional information found above and also refer to joyce/resident note for further details. (Differential diagnosis) With consideration of age, sex/gender, risk factors, to evaluate patient for high risk causes of morbidity and mortality such as, but not limited to, fracture vs strain vs contusion vs other Today we will obtain imaging Today we will obtain labwork We will also provide medical/symptomatic management with pain control. Diagnostic tests considered but not performed: n/a Independently reviewed external documents including previous fm notes. Per chart review, patient has been followed for or diagnosed with htn, ckd in the past. Patient's condition and/or care was impacted by these chronic conditions. Will consider these factors in evaluation and management for today's care. Discussed plan with patient who agrees with current plan. Diagnostics interpreted by me: Per below I personally discussed the patient's management with other clinicians: Per joyce End of visit medical decision making Patient was reassessed. Resting comfortably. No acute distress. Independently reviewed and interpreted the lab results which demonstrated the following: No leukocytosis, no significant anemia, mildly hypokalemic at 3.2 otherwise no major electrolyte abnormalities, creatinine function within normal limits Independently reviewed and interpreted CXR which demonstrated the following: No acute intrathoracic abnormalities. No obvious consolidation. Sharp costophrenic angles. No pneumothorax. Trachea midline. Independently reviewed and interpreted EKG which demonstrated the following: Sinus rhythm Incomplete left bundle branch block LVH with secondary repolarization abnormality Rhythm Strip: The color television console monitor was ordered secondary to the patient's history of FRACTURE and to monitor the patient for dysrhythmia. I performed an independent interpretation of the rhythm strip which showed no arrhythmia, no signs of ischemic changes, no ectopy. Independently reviewed the reports of other imaging which demonstrated the following: No acute ICH, no SDH, no epidural hematoma, no acute intracranial abnormalities, no fractures, no midline shift No acute abnormality of the cervical spine. Incidentally noted 1.3 cm right thyroid lobe nodule. Follow-up recommended as below. CHEST (with CT thoracic spine): 1. No traumatic intrathoracic process. 2. No traumatic fracture of the thoracic spine. 3. Atherosclerotic disease. Ascending aortic aneurysm again measures 4.6 cm, not significantly changed from 12/17/2023. ABDOMEN/PELVIS (with CT lumbar spine): 1. Acute RIGHT femur intertrochanteric comminuted impaction fracture. Osteopenia. 2. No traumatic fracture of the lumbar spine. 3. Other: Persistent elevation of the right hemidiaphragm. Colonic diverticulosis. Atherosclerotic disease. Parapelvic cysts. Response to medical management provided in the ED: Pain is well-managed. Discussed the the potential disposition plans. Patient would prefer to stay in at [facility]. (Consults) Discussed care with: Discussed case with application packaging consultant, admitting team. They agree with current work up and management. They will evaluate and provide further recommendations, please refer to their note for detailed explanation. They agree to admit the patient for further workup and management. Discussed case with application packaging consultant (more content not included)... [facility] ED Provider Note EMERGENCY DEPARTMENT ENCOUNTER Pt Name: Pily Barnes Birthdate 1950 Date of evaluation: 04/19/2025 ED Provider: Mayco Bhakta II, MD CHIEF COMPLAINT Chief Complaint Patient presents with Hip Pain Right hip pain, + shortening after fall in bathroom HISTORY OF PRESENT ILLNESS (Location/Symptom, Timing/Onset, Context/Setting, Quality, Duration, Modifying Factors, Severity) Note limiting factors. I wore appropriate PPE for the entirety of this encounter. HPI Pily Barnes is a 74 y.o. who presents to the emergency department with concerns for hip pain after a fall. Patient states that she sustained a mechanical fall approximately 2 hours prior to arrival. She states that she slipped and fell. She states that she does not think that she hit her head but she did land on her back and injured her right hip. She denies any other symptoms at the time of my evaluation other than severe right hip pain. Nursing Notes were reviewed. Limitations to history: Outside historians: REVIEW OF SYSTEMS Review of Systems Pertinent positives and negatives as per HPI. PAST MEDICAL HISTORY Medical History[1] SURGICAL HISTORY Surgical History[2] CURRENT MEDICATIONS Current Discharge Medication List CONTINUE these medications which have NOT CHANGED Details amLODIPine (Norvasc) 2.5 MG tablet Take 2.5 mg by mouth daily. ARIPiprazole (Abilify) 5 MG tablet Take 5 mg by mouth daily. Breo Ellipta 100-25 MCG/ACT aerosol powder Inhale 1 puff daily. buPROPion XL (Wellbutrin XL) 300 MG 24 hr tablet Take 300 mg by mouth daily. FLUoxetine (PROzac) 20 MG capsule Take 60 mg by mouth daily. fluticasone (Flonase) 50 MCG/ACT nasal spray Administer 2 sprays into each nostril Daily as needed for allergies. lamoTRIgine (LaMICtal) 25 MG tablet Take 50 mg by mouth daily. Loratadine 10 MG capsule Take 10 mg by mouth daily. losartan (Cozaar) 50 MG tablet Take 100 mg by mouth daily. Multiple Vitamin (High Potency Multivitamin) tablet Take 1 tablet by mouth daily. nystatin (Mycostatin) 747183 UNIT/GM powder Apply 1 Application topically 2 times daily. Under breasts Omeprazole 20 MG tablet delayed-release albuterol 108 (90 Base) MCG/ACT inhaler INHALE TWO PUFFS BY MOUTH INTO THE LUNGS instructed EVERY 4 HOURS NEEDED FOR WHEEZING OR FOR SHORTNESS OF BREATH Calcium + Vitamin D3 600-10 MG-MCG tablet Take 1 tablet by mouth daily. 600/400 cholecalciferol (Vitamin D-3) 125 MCG (5000 UT) tablet Take 2,000 Units by mouth daily. clonazePAM (KlonoPIN) 0.5 MG tablet Take 0.5 mg by mouth Daily as needed for anxiety. famotidine (Pepcid) 20 MG tablet Take by mouth. Invega Sustenna 39 MG/0.25ML suspension prefilled syringe Inject 39 mg into the shoulder, thigh, or buttocks every 30 (thirty) days. lisinopril 20 MG tablet Take 20 mg by mouth daily. ALLERGIES Sulfa antibiotics and Milk [milk (cow)] FAMILY HISTORY Family History[3] SOCIAL HISTORY Social History[4] SCREENINGS [place] Coma Scale Best Eye Response: Spontaneous Best Verbal Response: Oriented Best Motor Response: Follows commands [place] Coma Scale Score: 15 PHYSICAL EXAM ED Triage Vitals [04/19/25 1535] Temp Heart Rate Resp BP 36.6 ?C (97.9 ?F) 65 18 131/79 SpO2 Temp Source Heart Rate Source Patient Position 95 % Oral Monitor Lying BP Location FiO2 (%) Left arm -- Physical Exam Vitals and nursing note reviewed. Constitutional: General: She is not in acute distress. Appearance: She is well-developed. HENT: Head: Normocephalic and atraumatic. Eyes: Conjunctiva/sclera: Conjunctivae normal. Cardiovascular: Rate and Rhythm: Normal rate and regular rhythm. Heart sounds: No murmur heard. Pulmonary: Effort: Pulmonary effort is normal. No respiratory distress. Breath sounds: Normal breath sounds. Abdominal: Palpations: Abdomen is soft. Tenderness: There is no abdominal tenderness. Musculoskeletal: General: No swelling. Cervical back: Neck supple. Comments: Right sided hip pain with palpation and range of motion. Skin: General: Skin is warm and dry. Capillary Refill: Capillary refill takes less than 2 seconds. Neurological: Mental Status: She is alert. Psychiatric: Mood and Affect: Mood normal. DIAGNOSTIC RESULTS RADIOLOGY (Per Emergency Physician): Interpretation per the Radiologist below, if available at the time of this note: XR chest 1 view Final Result Lines, tubes, and devices:None. Lungs and pleura:Elevated right hemidiaphragm. Minimal streaky bibasilar opacities, likely atelectasis. No consolidation. No pleural effusion or pneumothorax. Cardiomediastinal silhouette: Normal cardiac silhouette. Ascending aortic aneurysm, better assessed on recent CT. Other: Degenerative changes of the spine. Cervical fusion hardware partially visualized. Report Dictated on Electronically Signed By: Albino Gamez MD Electronically Signed David (more content not included)... Normal [facility] - Coagulationon 0 04-19-2025 PT Coag (Bld) [Time] 10.4 s 9.0 - 12.0 s [facility] No Panel Informationon 04-19 Acute intertrochanteric comminuted fracture of the right proximal femur. Osteopenia. Report Dictated on Electronically Signed By: Cee Del Angel MD Electronically Signed Date/Time: 04/19/2025 8:00 PM [facility] CHEST (with CT thoracic spine): 1. No traumatic intrathoracic process. 2. No traumatic fracture of the thoracic spine. 3. Atherosclerotic disease. Ascending aortic aneurysm again measures 4.6 cm, not significantly changed from 12/17/2023. ABDOMEN/PELVIS (with CT lumbar spine): 1. Acute RIGHT femur intertrochanteric comminuted impaction fracture. Osteopenia. 2. No traumatic fracture of the lumbar spine. 3. Other: Persistent elevation of the right hemidiaphragm. Colonic diverticulosis. Atherosclerotic disease. Parapelvic cysts. Report Dictated on Electronically Signed By: Cee Del Angel MD Electronically Signed Date/Time: 04/19/2025 5:23 PM T [facility] No acute intracranial hemorrhage or mass effect. CT CERVICAL SPINE: TECHNIQUE: Transaxial sequence through the cervical spine. Coronal and sagittal reconstructions included. Dose reduction was employed with automated exposure control. COMPARISON: CT cervical spine 01/12/2023 FINDINGS: Cervical vertebrae and joints: Degenerative changes at the craniocervical junction that is otherwise maintained. Demineralized osseous structures. Status post C3-C6 ACDF. The hardware appears intact without evidence of loosening. No acute fracture. No suspicious osseous abnormality. Multilevel facet arthrosis and uncovertebral hypertrophy. Intervertebral disc spaces and spinal canal: Disc height loss at C2-C3 and within the lower cervical/upper thoracic spine. No severe spinal canal stenosis. Soft tissues: No prevertebral edema. Surgically absent left thyroid lobe. Right thyroid lobe nodules measure up to 1.3 cm in size. Other: Scarring at both lung apices. IMPRESSION: No acute abnormality of the cervical spine. Incidentally noted 1.3 cm right thyroid lobe nodule. Follow-up recommended as below. Follow-up thyroid ultrasound is recommended for any suspicious thyroid nodule. Suspicious thyroid nodules include: Nodules "e1 cm in patients <35 years old Nodules "e1.5 cm in patients "e35 years old Nodules with suspicious lymph nodes (enlarged, cystic, calcified, or hyperenhancing) Nodules with local tissue invasion Patients with comorbidities or limited life expectancy should not have further evaluation of the thyroid nodule, unless it is warranted clinically, or specifically requested by the patient or referring physician. Reference: Brenna Cordova al "Managing incidental thyroid nodules detected on imaging: White paper of the ACR incidental thyroid findings committee" J Am Velasquez Radiol 2015;12:143-150. Report Dictated on Electronically Signed By: Kendy Strickland DO Electronically Signed Date/Time: 04/19/2025 4:59 PM [facility] No Panel InformationOrdered By: Cee Del Angel on 04-19-2025 [facility] Phone: No Panel InformationOrdered By: Kendy Strickland on 04-19-2025 [facility] Phone: PROTHROMBIN TIMEon 5 INR Coag (PPP) [Relative time] 1.0 {INR} [facility] 0.9[facility]1.1 [facility] Comment on above: Result Comment: Jason mmended Anticoagulant Therapy: SEE BELOW ----- INR of 2.0 - 3.0 : - Prophylaxis of Venous Thrombosis (high-risk surgery) - Treatment of Venous Thrombosis - Treatment of Pulmonary Embolism (Includes tissue heart valves, Acute Myocardial Infarction to prevent systemic embolism, Valvular Heart Disease, and Atrial Fibrillation) ----- INR of 2.5 - 3.5 : - Mechanical Prosthetic Valves (high risk) - If oral anticoagulant therapy is used to prevent Myocardial Infarction Performed By: #### L [id number] ####Mold Parter: MIGDALIA JOHNSON ([id number])[facility] ([facility])[address] [place] [address] PT Coag (PPP) [Time] 10.4 s Normal 9.0-12.0 [facility] Comment on above: Performed By: #### L AB320 ####Mold Parter: MIGDALIA JOHNSON ([id number])[facility] ([facility])[address] [place] [address] PT Coag (Bld) [Time]on 04-19 INR Coag (PPP) [Relative time] 1 {INR} 0.9 - 1.[address] [facility] Comment on above: Recommended Anticoag ulant Therapy: SEE BELOW ----- INR of 2.0 - 3.0 : - Prophylaxis of Venous Thrombosis (high-risk surgery) - Treatment of Venous Thrombosis - Treatment of Pulmonary Embolism (Includes tissue heart valves, Acute Myocardial Infarction to prevent systemic embolism, Valvular Heart Disease, and Atrial Fibrillation) ----- INR of 2.5 - 3.5 : - Mechanical Prosthetic Valves (high risk) - If oral anticoagulant therapy is used to prevent Myocardial Infarction Interpretation and review of laboratory results Normal [facility] XR Chest Single viewon 04-19 Lines, tubes, and devices:None. Lungs and pleura:Elevated right hemidiaphragm. Minimal streaky bibasilar opacities, likely atelectasis. No consolidation. No pleural effusion or pneumothorax. Cardiomediastinal silhouette: Normal cardiac silhouette. Ascending aortic aneurysm, better assessed on recent CT. Other: Degenerative changes of the spine. Cervical fusion hardware partially visualized. Report Dictated on Electronically Signed By: Albino Gamez MD Electronically Signed Date/Time: 04/19/2025 10:52 PM EDT [facility] Patient Name: PILY BARNES : 1950 Exam Date/Time: 04/19/2025 22:27 Procedure: XR CHEST 1 VIEW Ordering Provider: INIGUEZ DANIEL Reason For Exam: pre-op EXAMINATION: CHEST RADIOGRAPH (SINGLE VIEW AP OR PA) Clinical History: pre-op Comparison: Chest CT 04/19/2025 RESULT: See impression [facility] Albino Gamez MD - 04/19/2025 Patient Name: PILY BARNES : 1950 Exam Date/Time: 04/19/2025 22:27 Procedure: XR CHEST 1 VIEW Ordering Provider: INIGUEZ DANIEL Reason For Exam: pre-op EXAMINATION: CHEST RADIOGRAPH (SINGLE VIEW AP OR PA) Clinical History: pre-op Comparison: Chest CT 04/19/2025 RESULT: See impression IMPRESSION: Lines, tubes, and devices:None. Lungs and pleura:Elevated right hemidiaphragm. Minimal streaky bibasilar opacities, likely atelectasis. No consolidation. No pleural effusion or pneumothorax. Cardiomediastinal silhouette: Normal cardiac silhouette. Ascending aortic aneurysm, better assessed on recent CT. Other: Degenerative changes of the spine. Cervical fusion hardware partially visualized. Report Dictated on Electronically Signed By: Albino Gamez MD Electronically Signed Date/Time: 04/19/2025 10:52 PM EDT [facility] Radiology Study observation (narrative) [facility] XR Chest Single viewOrdered By: Albino Gamez on 04-19-2025 [facility] [place] Work Phone: XR Femur - right 2 Viewson 0 04-19-2025 Patient Name: PILY BARNES : 1950 Exam Date/Time: 04/19/2025 19:20 Procedure: XR FEMUR 2+ VW RIGHT Ordering Provider: BOONE AKASH Reason For Exam: fx, eval entire bone INDICATION: Right hip fracture with pain. VIEWS: Pelvis AP VIEWS: Right femur AP and crosstable lateral COMPARISON: Same-day CT chest, abdomen, pelvis and CT right femur FINDINGS: Pelvis AP: Acute intertrochanteric comminuted fracture of the right proximal femur. The femur head is not dislocated. The pubic symphysis is not widened. Right femur: Acute intertrochanteric comminuted fracture of the right proximal femur. The femur head is not dislocated. There is no joint effusion at the knee. The patella is midline without fracture. The bones are osteopenic. [facility] Cee Del Angel MD - 04/19/2025 Patient Name: PILY BARNES : 1950 Exam Date/Time: 04/19/2025 19:20 Procedure: XR FEMUR 2+ VW RIGHT Ordering Provider: BOONE AKASH Reason For Exam: fx, eval entire bone INDICATION: Right hip fracture with pain. VIEWS: Pelvis AP VIEWS: Right femur AP and crosstable lateral COMPARISON: Same-day CT chest, abdomen, pelvis and CT right femur FINDINGS: Pelvis AP: Acute intertrochanteric comminuted fracture of the right proximal femur. The femur head is not dislocated. The pubic symphysis is not widened. Right femur: Acute intertrochanteric comminuted fracture of the right proximal femur. The femur head is not dislocated. There is no joint effusion at the knee. The patella is midline without fracture. The bones are osteopenic. IMPRESSION: Acute intertrochanteric comminuted fracture of the right proximal femur. Osteopenia. Report Dictated on Electronically Signed By: Cee Del Angel MD Electronically Signed Date/Time: 04/19/2025 8:00 PM EDT [facility] Radiology Study observation (narrative) [facility] XR Pelvis 1 or 2 Viewson Patient Name: PILY BARNES : 1950 Exam Date/Time: 04/19/2025 19:20 Procedure: XR PELVIS 1-2 VIEWS Ordering Provider: BOONE AKASH Reason For Exam: r hip fx INDICATION: Right hip fracture with pain. VIEWS: Pelvis AP VIEWS: Right femur AP and crosstable lateral COMPARISON: Same-day CT chest, abdomen, pelvis and CT right femur FINDINGS: Pelvis AP: Acute intertrochanteric comminuted fracture of the right proximal femur. The femur head is not dislocated. The pubic symphysis is not widened. Right femur: Acute intertrochanteric comminuted fracture of the right proximal femur. The femur head is not dislocated. There is no joint effusion at the knee. The patella is midline without fracture. The bones are osteopenic. [facility] Cee Del Angel MD - 04/19/2025 [facility] Name[facility] 1950 [id number] Exam Date/Time: 04/19/2025 19:20 Procedure: XR PELVIS 1-2 VIEWS Ordering Provider: BOONE AKASH Reason For Exam: r hip fx INDICATION: Right hip fracture with pain. VIEWS: Pelvis AP VIEWS: Right femur AP and crosstable lateral COMPARISON: Same-day CT chest, abdomen, pelvis and CT right femur FINDINGS: Pelvis AP: Acute intertrochanteric comminuted fracture of the right proximal femur. The femur head is not dislocated. The pubic symphysis is not widened. Right femur: Acute intertrochanteric comminuted fracture of the right proximal femur. The femur head is not dislocated. There is no joint effusion at the knee. The patella is midline without fracture. The bones are osteopenic. IMPRESSION: Acute intertrochanteric comminuted fracture of the right proximal femur. Osteopenia. Report Dictated on Electronically Signed By: Cee Del Angel MD Electronically Signed Date/Time: 04/19/2025 8:00 PM EDT [facility] Radiology Study observation (narrative) [facility] Raffaele Chahal 09-16-2024 CNOV Office Visit (TOHSMN) PILY BARNES ([id number]) 1950 F Date Time Provider Department 09/16/24 2:00 PM [facility] During your visit today, we recorded the following information about you: Temperature Pulse Blood pressure Weight 98.4 degrees 56/minute 121/79 70.4 kg Height 1.524 m Michell Mathis MD 09/16/2024 3:25 PM Signed [facility] Template ID: [id number] SERVICE DATE: 09/16/2024 SERVICE TIME: 3:21 PM Patient Type: EST Visit to determine Surgery: No HPI: Ms. Pily Barnes is a 73 year old female w/ h/o htn, ckd, esophageal stenosis s/p egd dilation, Parkinson's symptoms w/ poor baseline mobility and function (limited by weakness and herrmann) and arrives to office today in wheelchair for follow-up of known ascending aortic aneurysm. This was found incidentally in December (12/2023) w/ ascending up to 4.6 cm. Unclear if father of aortic aneurysm but he was in his late 80s. She lives in assisted living and generally uses walker to get around. Prev echo w/ EF 58%, nl RV, trace MR/TR, trace AI, MG 6 across AV. Impression: Ascending aortic aneurysm 4.6 cm, AV functioning well Plan: Given relative stability of ascending aortic aneurysm, advised ongoing aortic surveillance with Ms Barnes. All questions answered. Given her baseline functional status and limited mobility, would favor a size threshold of >5.5 cm for her and would need to weigh risks and benefits carefully if that decision point is reached in the future. Will continue to follow her aorta through serial imaging. RTC in 1 year with repeat imaging. I personally spent 30 minutes in total time involved in the management and care of this patient. SIGNATURE: Michell Mathis MD PATIENT NAME: Pily Barnes DATE: September 16, 2024 TIME: 3:21 PM Referring Provider: MICHELL MATHIS [[id number]] Allergies As of Date: 09/16/2024 Noted Allergy Reaction SULFADIAZINE 03/16/2020 7 - Swelling Comments: Facial swelling MILK 03/18/2022 14 - Other: See Comments Comments: Abdominal bloating SEASONAL ALLERGIES 09/20/2017 5 - Intolerance SULFA (SULFONAMIDE ANTIBIOTICS) 09/20/2017 9 - Itching Date Reviewed: 09/16/2024 Reviewed by: Rocio Davila MA - Fully Assessed Visit Diagnoses:Aneurysm of ascending aorta without rupture (HCC) [I71.21] Disorder of artery or arteriole (HCC) [I77.9] Order(s):CARDIOTHORA CIC PREOP EVALUATION [] Order #: [id number]: 1 Prescriptions as of 09/16/2024 - losartan (COZAAR) 100 mg tablet Take 1 tablet by mouth once daily. - rosuvastatin (CRESTOR) 20 mg tablet Take 1 tablet by mouth daily at bedtime. - amLODIPine (NORVASC) 5 mg tablet Take 5 mg by mouth once daily. - famotidine (PEPCID) 20 mg tablet Take 20 mg by mouth as needed. - DELSYM 30 mg/5 mL oral liquid Take 30 mg by mouth as needed. - MUCINEX 600 mg 12 hr tablet Take 600 mg by mouth once daily. As needed - HIGH POTENCY MULTIVITAMIN 400 mcg Take 1 tablet by mouth once daily. - nystatin (MYCOSTATIN) powder Apply to affected area as needed. - Omeprazole 20 mg TbEC Take 20 mg by mouth once daily. - ondansetron (ZOFRAN) 4 mg tablet Take 4 mg by mouth every 6 hours as needed. - cholecalciferol (VITAMIN D3) 50 mcg (2,000 unit) tablet Take 2,000 Units by mouth once daily. - loratadine (CLARITIN) 10 mg tablet Take 10 mg by mouth once daily. - buPROPion XL (WELLBUTRIN XL) 300 mg 24 hr tablet Take 1 tablet by mouth once daily. - FLUoxetine (PROZAC) 20 mg capsule 3 capsule daily - ARIPiprazole (ABILIFY) 5 mg tablet Take 1 tablet by mouth once daily. - lamoTRIgine (LAMICTAL) 25 mg tablet Take 2 tablets by mouth once daily. - paliperidone palmitate (INVEGA SUSTENNA) 39 mg/0.25 mL syrg injection INJECT 0.25 ML into THE MUSCLE EVERY FOUR WEEKS - fluticasone-vilanter ol (BREO ELLIPTA) 100-25 mcg/dose inhaler Inhale 1 puff BY MOUTH INTO THE LUNGS EVERY DAY - albuterol HFA (PROVENTIL HFA, VENTOLIN HFA) 90 mcg/actuation inhaler INHALE TWO PUFFS BY MOUTH INTO THE LUNGS instructed EVERY 4 HOURS NEEDED FOR WHEEZING OR FOR SHORTNESS OF BREATH Facility-Administere d Medications as of 09/16/2024 - glycopyrrolate 0.2 mg injection (ROBINUL) - ondansetron (PF) 4 mg injection (ZOFRAN) Meds Comments as of 03/27/2019: Patient reports med noncompliance since discharge from hospital Problem List As Of Date 09/16/2024 Noted Resolved Dehydration [E86.0] 09/20/2017 09/29/2017 DEENA (acute kidney injury) (HCC) [N17.9] 09/20/2017 11/21/2017 Depression [F32.A] 09/20/2017 11/27/2017 Rule-out : Bipolar disorder (HCC) [F31.9] 09/20/2017 10/28/2019 Essential hypertension [I10] 09/20/2017 Hypokalemia [E87.6] 09/20/2017 08/12/2019 Pyuria [R82.81] 09/20/2017 11/21/2017 Polycythemia [D75.1] 09/20/2017 11/21/2017 Severe recurrent major depression with psychoti*09/22/2017 [facility] (more content not included)... Normal [facility] CREATININE, BLOOD (POC)on Creatinine [Mass/Vol] 1.00 mg/dL 0.7 - 1.4 mg/dL [facility] GFR/1.73 sq M.predicted among non-blacks MDRD (S/P/Bld) [Vol rate/Area] 59 mL/min/{1.73_m2} mL/min/1.73 m2 [facility] Location:Radiology [facility], [address] [place] [address], [address] [place] [address] POINT OF CARE [facility] CTA CHEST (GATED) W IVCONon 09-16-2024 CTA CHEST (GATED) W IVCON * * *Final Rep ort* * * DATE OF EXAM: Sep 16 2024 2:02PM [facility] 0125 - CTA CHEST (GATED) W IVCON / PROCEDURE REASON: multiple diagnoses * * * * Physician Interpretation * * * * CTA Aorta chest Direct Image Comparison: None HISTORY: 74 years old Female with h/o suspected aortic disease Evaluation for interval change. There is request to define thoracic and aortic anatomy TECHNIQUE: SCANNER: Multi-detector scanner PROTOCOL: Prospectively triggered helical high-pitch acquisitions ("triggered Flash-mode") was performed following the intravenous administration of contrast material. Scan Range: thoracic inlet to the diaphragm CT Dose-Length Product (DLP): 155 mGy*cm CT Dose Reduction Employed: Automated exposure control (AEC) CONTRAST: IV administration of 70 ml Omnipaque 350 Scan acquisition: uncomplicated Macro Version: [id number] For optimization of anatomic evaluation, advanced 3-D off-line postprocessing was performed on a dedicated workstation by the interpreting physician. STUDY LIMITATIONS: None. RESULT: LINES, TUBES and DEVICES: None CHEST: Chest wall anatomy: unremarkable. Left partial thyroidectomy evaluated right hemidiaphragm LUNGS: bibasilar atelectasis. MEDIASTINUM: unremarkable. Small hiatal hernia PERICARDIUM: unremarkable CENTRAL PULMONARY ARTERY: normal dimensions. Assessment is limited due to limited contrast enhancement. CARDIAC CHAMBERS: LEFT VENTRICLE: normal size. RIGHT VENTRICLE: normal size Left Atrium: dilated. LEATHA: normal. Right Atrium: normal size CENTRAL VENOUS and PULMONARY VENOUS RETURN: normal. Coronary Sinus: normal size MITRAL VALVE: assessment is limited in the current study - no leaflet calcification. No annular calcification TRICUSPID and PULMONIC VALVE: appear unremarkable. CORONARY ANATOMY: normal origin of the coronary arteries. Calcified atherosclerotic changes of the coronary arteries, precluding precise assessment with CT. AORTIC VALVE: appears trileaflet. Mild calcification at the commissures. AORTA: Pathology: No acute aortic pathology. Intervention: None Complications: n/a Aortic Size: Dilation ascending aorta. STJ: maintained. Wall Changes: scattered mild partially calcified wall changes. Arch Branch Vessels: Patent, normal size proximal segments of the arch branch vessels, without evidence of wall changes. AORTIC DIMENSIONS: AORTIC ROOT: 3.5 cm measured [id number] mid ASCENDING THORACIC AORTA: 4.6 cm , area 16.4 sq cm mid AORTIC ARCH: 3.5 cm mid DESCENDING THORACIC AORTA: 2.8 cm limited upper ABDOMEN: unremarkable BONES and SOFT TISSUES: degenerative changes of the thoracic spine. Surgical fixation hardware lower cervical spine Production Control Manager (topogram) images: No additional findings. IMPRESSION: Dilated ascending aorta at 4.6 cm, area 16.4 sq cm. Remainder of the thoracic aorta is normal in course, caliber, contour. No acute aortic pathology. Thread Winder Automatic: PSCB Transcribe Date/Time: Sep 16 2024 2:27P Dictated by : ENMA HANEY MD This examination was interpreted and the report reviewed and electronically signed by: ENMA HANEY MD on Sep 16 2024 3:39PM EST [id number] CN Normal [facility] CNCOon 06-12-2024 CNCO Letter Text Normal [facility] CNPNon 04-03-2024 [facility] P[facility] ([id number]) 1950 F Date Time Provider Department 04/03/24 MICHELL MATHIS [facility] During your visit today, we recorded the following information about you: Cee Hartman RN 04/03/2024 8:23 AM Signed follow up in 6 months with CTA chest Cee Hartman RN Allergies As of Date: 04/03/2024 Noted Allergy Reaction SULFADIAZINE 03/16/2020 7 - Swelling Comments: Facial swelling MILK 03/18/2022 14 - Other: See Comments Comments: Abdominal bloating SEASONAL ALLERGIES 09/20/2017 5 - Intolerance SULFA (SULFONAMIDE ANTIBIOTICS) 09/20/2017 9 - Itching Date Reviewed: 03/21/2024 Reviewed by: Roxy Darby MA - Fully Assessed Reason for Visit: Follow Up [171] Primary Visit Diagnosis:Aneurysm of ascending aorta without rupture (HCC) [I71.21] Other Visit Diagnosis:Disorder of artery or arteriole (HCC) [I77.9] Order(s):CARDIOTHORA [facility] PREOP EVALUATION [] Order #: [id number]: 1 FUTURE CTA CHEST (GATED) W IVCON [[id number]] Order #: [id number] FUTURE Prescriptions as of 04/03/2024 - losartan (COZAAR) 100 mg tablet Take 1 tablet by mouth once daily. - rosuvastatin (CRESTOR) 20 mg tablet Take 1 tablet by mouth daily at bedtime. - amLODIPine (NORVASC) 5 mg tablet Take 5 mg by mouth once daily. - famotidine (PEPCID) 20 mg tablet Take 20 mg by mouth as needed. - DELSYM 30 mg/5 mL oral liquid Take 30 mg by mouth as needed. - MUCINEX 600 mg 12 hr tablet Take 600 mg by mouth once daily. - HIGH POTENCY MULTIVITAMIN 400 mcg Take 1 tablet by mouth once daily. - nystatin (MYCOSTATIN) powder Apply to affected area as needed. - Omeprazole 20 mg TbEC Take 20 mg by mouth once daily. - ondansetron (ZOFRAN) 4 mg tablet Take 4 mg by mouth every 6 hours as needed. - cholecalciferol (VITAMIN D3) 50 mcg (2,000 unit) tablet Take 2,000 Units by mouth once daily. - loratadine (CLARITIN) 10 mg tablet Take 10 mg by mouth once daily. - buPROPion XL (WELLBUTRIN XL) 300 mg 24 hr tablet Take 1 tablet by mouth once daily. - FLUoxetine (PROZAC) 20 mg capsule 3 capsule daily - ARIPiprazole (ABILIFY) 5 mg tablet Take 1 tablet by mouth once daily. - lamoTRIgine (LAMICTAL) 25 mg tablet Take 2 tablets by mouth once daily. - paliperidone palmitate (INVEGA SUSTENNA) 39 mg/0.25 mL syrg injection INJECT 0.25 ML into THE MUSCLE EVERY FOUR WEEKS - fluticasone-vilanter ol (BREO ELLIPTA) 100-25 mcg/dose inhaler Inhale 1 puff BY MOUTH INTO THE LUNGS EVERY DAY - albuterol HFA (PROVENTIL HFA, VENTOLIN HFA) 90 mcg/actuation inhaler INHALE TWO PUFFS BY MOUTH INTO THE LUNGS instructed EVERY 4 HOURS NEEDED FOR WHEEZING OR FOR SHORTNESS OF BREATH Facility-Administere d Medications as of 04/03/2024 - glycopyrrolate 0.2 mg injection (ROBINUL) - ondansetron (PF) 4 mg injection (ZOFRAN) Meds Comments as of 03/27/2019: Patient reports med noncompliance since discharge from hospital Problem List As Of Date 04/03/2024 Noted Resolved Dehydration [E86.0] 09/20/2017 09/29/2017 DEENA (acute kidney injury) (HCC) [N17.9] 09/20/2017 11/21/2017 Depression [F32.A] 09/20/2017 11/27/2017 Rule-out : Bipolar disorder (HCC) [F31.9] 09/20/2017 10/28/2019 Essential hypertension [I10] 09/20/2017 Hypokalemia [E87.6] 09/20/2017 08/12/2019 Pyuria [R82.81] 09/20/2017 11/21/2017 Polycythemia [D75.1] 09/20/2017 11/21/2017 Severe recurrent major depression with psychoti*09/22/2017 Mild intermittent asthma [J45.20] 09/23/2017 Drug overdose [T50.901A] 11/13/2017 11/27/2017 Suicide attempt (HCC) [T14.91XA] 11/13/2017 UTI (urinary tract infection) [N39.0] 11/13/2017 08/12/2019 Bipolar depression (HCC) [F31.9] 11/20/2017 11/27/2017 Financial problems [Z59.9] 02/21/2019 Bipolar 1 disorder (HCC) [F31.9] 03/28/2019 Bipolar 1 disorder, depressed, severe (HCC) [F3*08/05/2019 Vitamin D deficiency [E55.9] 08/06/2019 Insomnia [G47.00] 08/06/2019 Abnormal urinalysis [R82.90] 08/06/2019 08/12/2019 Malnutrition of mild degree (HCC) [E44.1] 08/07/2019 08/12/2019 Generalized anxiety disorder [F41.1] 10/17/2019 Bipolar 1 disorder, depressed, moderate (HCC) [*04/30/2020 Hypertensive heart disease without congestive h*06/06/2020 Mixed hyperlipidemia [E78.2] 06/06/2020 Moderate persistent asthma without complication* 020 Nonrheumatic aortic valve stenosis [I35.0] 06/06/2020 Patent foramen ovale [Q21.12] 06/06/2020 Stage 3 chronic kidney disease [N18.30] 06/06/2020 Status post hysterectomy [Z90.710] 06/06/2020 Urge incontinence of urine [N39.41] 06/06/2020 Herpes simplex [B00.9] 06/06/2020 Cardiomegaly [I51.7] 06/06/2020 Allergic rhinitis [J30.9] 06/06/2020 SAH (subarachnoid hemorrhage) (HCC) [I60.9] 06/07/2020 06/17/2020 Fall [W19.XXXA] 06/08/2020 06/17/2020 Multiple thyroid nodules [E04.2] 06/15/2020 Trauma [T14.90XA] 11/06/2020 11/06/2020 Thyroid mass [E07.9] 12/16/2020 02/24/2022 (more content not included)... Normal [facility] CNOVon 03-21-2024 CNOV Office Visit (TOMN) PILY BARNES ([id number]) 1950 F Date Time Provider Department 03/21/24 10:30 AM [facility] During your visit today, we recorded the following information about you: Michell Mathis MD 03/21/2024 4:27 PM Signed Heart, Vascular and Thor[facility] Template ID: [id number] SERVICE DATE: 03/21/2024 SERVICE TIME: 4:10 PM Patient Type: New Visit to determine Surgery: Yes HPI: Ms. Pily Barnes is a 73 year old female w/ h/o htn, ckd, esophageal stenosis s/p egd dilation, Parkinson's symptoms w/ poor baseline mobility and function (limited by weakness and herrmann) and arrives to office today in wheelchair. CT chest reviewed was w/o contrast but found incidental aortic aneurysm this past December (12/2023) w/ ascending up to 4.6 cm. Unclear if father of aortic aneurysm but he was in his late 80s. She lives in assisted living and generally uses walker to get around. I have also reviewed echo today, EF 58%, nl RV, trace MR/TR, trace AI, MG 6 across AV. Impression: Ascending aortic aneurysm 4.6 cm, AV functioning well Plan: I discussed the indications to proceed with aortic aneurysm repair including aortic size >5cm, growth >0.5 cm /yr, concomitant need for AV surgery, +FH of connective tissue dz. At this point, I do not see any indication to proceed with OHS. I discussed the need to continue to monitor BP and ongoing aortic surveillance with Ms Barnes. All questions answered. I do think that even if the size threshold of 5 cm is met, surgical intervention would be difficult for Ms Barnes given her baseline functional status and limited mobility. Would favor a size threshold of >5.5 cm for her and would need to weigh risks and benefits carefully if that decision point is reached in the future. Will continue to follow her aorta through serial imaging. I personally spent 30 minutes in total time involved in the management and care of this patient. SIGNATURE: Michell Mathis MD PATIENT NAME: Pily Barnes DATE: March 21, 2024 TIME: 4:10 PM Referring Provider: MICHELL MATHIS [[id number]] Allergies As of Date: 03/21/2024 Noted Allergy Reaction SULFADIAZINE 03/16/2020 7 - Swelling Comments: Facial swelling MILK 03/18/2022 14 - Other: See Comments Comments: Abdominal bloating SEASONAL ALLERGIES 09/20/2017 5 - Intolerance SULFA (SULFONAMIDE ANTIBIOTICS) 09/20/2017 9 - Itching Date Reviewed: 03/21/2024 Reviewed by: Roxy Darby MA - Fully Assessed Reason for Visit: Consult [173] Visit Diagnoses:Aneurysm of ascending aorta without rupture (HCC) [I71.21] Diverticulitis [K57.92] Primary hypertension [I10] Disorder of artery or arteriole (HCC) [I77.9] Order(s):[facility] PREOP EVALUATION [] Order #: [id number]: 1 Prescriptions as of 03/21/2024 - losartan (COZAAR) 100 mg tablet Take 1 tablet by mouth once daily. - rosuvastatin (CRESTOR) 20 mg tablet Take 1 tablet by mouth daily at bedtime. - amLODIPine (NORVASC) 5 mg tablet Take 5 mg by mouth once daily. - famotidine (PEPCID) 20 mg tablet Take 20 mg by mouth as needed. - DELSYM 30 mg/5 mL oral liquid Take 30 mg by mouth as needed. - MUCINEX 600 mg 12 hr tablet Take 600 mg by mouth once daily. - HIGH POTENCY MULTIVITAMIN 400 mcg Take 1 tablet by mouth once daily. - nystatin (MYCOSTATIN) powder Apply to affected area as needed. - Omeprazole 20 mg TbEC Take 20 mg by mouth once daily. - ondansetron (ZOFRAN) 4 mg tablet Take 4 mg by mouth every 6 hours as needed. - cholecalciferol (VITAMIN D3) 50 mcg (2,000 unit) tablet Take 2,000 Units by mouth once daily. - loratadine (CLARITIN) 10 mg tablet Take 10 mg by mouth once daily. - buPROPion XL (WELLBUTRIN XL) 300 mg 24 hr tablet Take 1 tablet by mouth once daily. - FLUoxetine (PROZAC) 20 mg capsule 3 capsule daily - ARIPiprazole (ABILIFY) 5 mg tablet Take 1 tablet by mouth once daily. - lamoTRIgine (LAMICTAL) 25 mg tablet Take 2 tablets by mouth once daily. - paliperidone palmitate (INVEGA SUSTENNA) 39 mg/0.25 mL syrg injection INJECT 0.25 ML into THE MUSCLE EVERY FOUR WEEKS - fluticasone-vilanter ol (BREO ELLIPTA) 100-25 mcg/dose inhaler Inhale 1 puff BY MOUTH INTO THE LUNGS EVERY DAY - albuterol HFA (PROVENTIL HFA, VENTOLIN HFA) 90 mcg/actuation inhaler INHALE TWO PUFFS BY MOUTH INTO THE LUNGS instructed EVERY 4 HOURS NEEDED FOR WHEEZING OR FOR SHORTNESS OF BREATH Facility-Administere d Medications as of 03/21/2024 - glycopyrrolate 0.2 mg injection (ROBINUL) - ondansetron (PF) 4 mg injection (ZOFRAN) Meds Comments as of 03/27/2019: Patient reports med noncompliance since discharge from hospital Problem List As Of Date 03/21/2024 Noted Resolved Dehydration [E86.0] 09/20/2017 09/29/2017 DEENA (acute kidney injury) (HCC) [N17.9] 09/20/2017 11/21/2017 Depression [F32.A] (more content not included)... Normal [facility] CNJOSÉ LUIS Office Visit (BONITA) PILY BARNES ([id number]) 1950 F Date Time Provider Department 03/21/24 7:15 AM JORGE ZELAYA During your visit today, we recorded the following information about you: Pulse Blood pressure Weight Height 62/minute 144/90 72.6 kg 1.524 m Jorge Zelaya MD 03/21/2024 6:49 PM Signed Heart, Vascular [facility] Thor[facility] Department of Cardiovascular Medicine SECTION OF CARDIOVASCULAR IMAGING OUTPATIENT VISIT DATE 03/21/2024 OUTPATIENT VISIT TYPE CONSULTATION PRIMARY CARE PHYSICIAN: Ashu Ricci [id number] [id number] REFERRING PHYSICIAN Michell Mathis [id number] [phone] CHIEF COMPLAINT: Patient presents with: Consult TAA Pre-Op Exam HISTORY OF PRESENT ILLNESS: Cardiac consultation at the request of Dr. Michell Mathis. A copy of this consultation note will be provided to the requesting physician by way of shared Medical record or letter to requesting physician via US mail. Ms. Barnes is a 73 year old female who is seen today for dilated thoracic aorta (in conjunction with Dr Mathis cardiac surgeon), along with history of coronary artery calcifications, hypertension, dyslipidemia, CKD, obesity, asthma, diverticulitis, esophageal stenosis s/p EGD dilation, Parkinson's symptoms and bipolar/depression. She first found out having dilated thoracic aorta on CT scan 12/2023 incidentally (for abdominal pain at ER). At baseline her mobility is limited to 50-100 yards due to shortness of breath which is a chronic problem (wonders if related to Parkinson's though no formal diagnosis I can see) and she lives in assisted living facility to help with her daily activities. Otherwise she denies chest pain, orthopnea/PND, edema, palpitations, dizziness and syncope. Non-smoker. Says father may have had aortic aneurysm but uncertain. Nursing Intake History Ms. Barnes is a 73 year old female from [place], [place] here today for cardiovascular evaluation related to ascending aortic aneurysm 4.6cm Pily has a significant medical history of ascending aortic aneurysm, chronic kidney disease, hypertension, mitral valve disorder, asthma. Ms. Barnes states in 12/2023, she went to the ER because of abdominal pain and she underwent a CT scan and incidentally found out ascending aortic aneurysm. After patient discharged from ER, she went to visited the primary care physician and PCP reccommended her to have a further evaluation from a certified prosthetist/orthotist in [facility]; therefore, PCP referred patient here to have a further assessment. Patient currently herrmann not have a primary certified prosthetist/orthotist. She reports SOB on exertion. She denies lightheadedness, dizziness, syncope, chest pain, palpitations, edema, cough. Ms. Barnes currently retired. She is not following any special diet and she does not participates any exercises. The last CT was done in 2023, it showed ascending aortic aneurysm measuring up to 4.6 cm. PAST MEDICAL HISTORY Diagnosis Date Ascending aortic aneurysm (HCC) 4.6cm Asthma Balance problem uses a walker Bipolar 1 disorder (HCC) CKD (chronic kidney disease) Depression Hypertension Mitral valve disorder TATI (obstructive sleep apnea) 08/06/2019 undiagnosed Substernal goiter PAST SURGICAL HISTORY Procedure Laterality Date [facility]ONOSCOPY [facility] 11/16/2023 5 cm hiatal hernia, tubular adenoma HYSTERECTOMY HX POST-CATARACT LASER SURGERY 09/2020 THYROIDECTOMY TOTAL/COMPLETE Left 12/16/2020 Dr. Soria SOCIAL HISTORY Social History Tobacco Use Smoking status: Never Smokeless tobacco: Never Vaping Use Vaping Use: Never used Substance Use Topics Alcohol use: Never Drug use: Never FAMILY HISTORY Problem Relation Age of Onset Psychiatry Mother other (parkinson disease) Mother Uterine Cancer Mother Ischemic Heart Disease Father Thyroid Sister No Known Problems Brother No Known Problems Maternal Grandmother No Known Problems Maternal Grandfather No Known Problems Paternal Grandmother No Known Problems Paternal Grandfather No Known Problems Son No Known Problems Son Colon Cancer No Family History ALLERGIES: ALLERGIES Allergen Reactions Sulfadiazine Swelling Facial swelling Milk Other: See Comments Abdominal bloating Seasonal Allergies Intolerance Sulfa (Sulfonamide * Itching MEDICATIONS: amLODIPine (NORVASC) 5 mg tabletTake 5 mg by mouth once daily.Disp: Rfl: famotidine (PEPCID) 20 mg tabletTake 20 mg by mouth as needed.Disp: Rfl: DELSYM 30 mg/5 mL oral liquidTake 30 mg by mouth as needed.Disp: Rfl: MUCINEX 600 mg 12 hr tabletTake 600 mg by mouth once daily.Disp: Rfl: HIGH POTENCY MULTIVITAMIN 400 mcgTake 1 tablet by mouth once daily.Disp: Rfl: nystatin (MYCOSTATIN) powderApply (more content not included)... Normal [facility] CREATININE BLDon 03-21-2024 Creatinine [Mass/Vol] 1.05 mg/dL High 0.58-0.96 [facility] Comment on above: Order Comment: Speci kirti Type: BLOOD SPECIMENOrdering Facility: [facility] Address: [address] [place] [address] Performed By: #### C RET1, 12681-6, LIPNF, 66334-4 ####[facility] LABCLIA [id number] [place] [address] [place] Creatinine and Glomerular filtration rate.predicted panel (S/P/Bld) 56 mL/min/1.73m??? Low >=60 [facility] Comment on above: Order Comment: Arielle cotto Type: BLOOD SPECIMENOrdering Facility: [facility] Address: [address] [place] [address] Result Comment: Christina george Glomerular Filtration Rate (eGFR) is calculated using the 2020 CKD-EPI creatinine equation. This equation utilizes serum creatinine, sex, and age as parameters. The creatinine assay has traceable calibration to isotope dilution-mass spectrometry. Refer to KDIGO guidelines for clinical interpretation. In patients with unstable renal function, e.g. those with acute kidney injury, the eGFR may not accurately reflect actual GFR. Performed By: #### C RET1, 12602-5, LIPHUGO, 50529-8 ####[facility] LABCLIA [id number] [place] [address] [place] [facility] Comprehensive metabolic 2000 panelon 03-21-2024 Albumin [Mass/Vol] 4.4 g/dL 3.9 - 4.9 g/dL [facility] ALP [Catalytic activity/Vol] 105 U/L 34 - 123 U/L [facility] ALT [Catalytic activity/Vol] 22 U/L 7 - 38 U/L [facility] Anion gap [Moles/Vol] 16 mmol/L High 8 - 15 mmol/L [facility] AST [Catalytic activity/Vol] 23 U/L 13 - 35 U/L [facility] Bilirubin [Mass/Vol] 0.5 mg/dL 0.2 - 1 .3 mg/dL [facility] Calcium [Mass/Vol] 10.1 mg/dL 8.5 - 10. 2 mg/dL [facility] Chloride [Moles/Vol] 104 mmol/L 98 - 10 7 mmol/L [facility] CO2 [Moles/Vol] 21 mmol/L Low 22 - 30 mmol/L [facility] Creatinine [Mass/Vol] 1.03 mg/dL High 0.58 - 0.96 mg/dL [facility] GFR/1.73 sq M.predicted among non-blacks MDRD (S/P/Bld) [Vol rate/Area] 58 mL/min/{1.73_m2} Low - PINF [facility] Comment on above: Estimated Glomerular Filtration Rate (eGFR) is calculated using the 2020 CKD-EPI creatinine equation. This equation utilizes serum creatinine, sex, and age as parameters. The creatinine assay has traceable calibration to isotope dilution-mass spectrometry. Refer to KDIGO guidelines for clinical interpretation. In patients with unstable renal function, e.g. those with acute kidney injury, the eGFR may not accurately reflect actual GFR. Glucose [Mass/Vol] 74 mg/dL 74 - 99 mg/dL [facility] Comment on above: The [place] Diabete s Association (ADA) provides guidance for cutoff values for fasting glucose and random glucose. The ADA defines fasting as no caloric intake for at least 8 hours. Fasting plasma glucose results between 100 to 125 mg/dL indicate increased risk for diabetes (prediabetes). Fasting plasma glucose results greater than or equal to 126 mg/dL meet the criteria for diagnosis of diabetes. In the absence of unequivocal hyperglycemia, results should be confirmed by repeat testing. In a patient with classic symptoms of hyperglycemia or hyperglycemic crisis, random plasma glucose results greater than or equal to 200 mg/dL meet the criteria for diagnosis of diabetes. Reference: Standards of Medical Care in Diabetes 2016, [place] Diabetes Association. Diabetes Care. 2016.39(Suppl 1). Potassium [Moles/Vol] 4.4 mmol/L 3.7 - 5.1 mmol/L [facility] Protein [Mass/Vol] 7.4 g/dL 6.3 - 8.0 g/dL [facility] Sodium [Moles/Vol] 141 mmol/L 136 - 144 mmol/L [facility] Urea nitrogen [Mass/Vol] 17 mg/dL 7 - 21 mg/d L [facility] Albumin [Mass/Vol] 4.4 g/dL Normal 3.9-4.9 [facility] Comment on above: Order Comment: Speci men Type: BLOOD SPECIMENOrdering Facility: [facility] Address: [address] [place] [address] Performed By: #### C RET1, 40335-0, LIPNF, 87124-3 ####[facility] LABIA [id number] [place] [address] [place] ALP [Catalytic activity/Vol] 105 U/L Normal 34-123 [facility] Comment on above: Order Comment: Speci men Type: BLOOD SPECIMENOrdering Facility: [facility] Address: [address] [place] [address] Performed By: #### C RET1, 88153-7, LIPNF, 40792-3 ####[facility] LABIA [id number] [place] [address] [place] ALT [Catalytic activity/Vol] 22 U/L Normal 7-38 [facility] Comment on above: Order Comment: Speci men Type: BLOOD SPECIMENOrdering Facility: [facility] Address: [address] [place] [address] Performed By: #### C RET1, 27183-7, LIPNF, 29184-2 ####[facility] LABCLIA [id number] [place] [address] [place] Anion gap [Moles/Vol] 16 mmol/L High 8-15 [facility] Comment on above: Order Comment: Speci men Type: BLOOD SPECIMENOrdering Facility: [facility] Address: [address] [place] [address] Performed By: #### C RET1, 47653-3, LIPNF, 95152-9 ####[facility] LABCLIA [id number] [place] [address] [place] AST [Catalytic activity/Vol] 23 U/L Normal 13-35 [facility] Comment on above: Order Comment: Speci men Type: BLOOD SPECIMENOrdering Facility: [facility] Address: [address] [place] [address] Performed By: #### C RET1, 64427-9, LIPNF, 07556-9 ####[facility] LABCLIA [id number] [place] [address] [place] Bilirubin [Mass/Vol] 0.5 mg/dL Normal 0.2-1.3 [facility] Comment on above: Order Comment: Speci men Type: BLOOD SPECIMENOrdering Facility: [facility] Address: [address] [place] [address] Performed By: #### C RET1, 00991-8, LIPNF, 24244-6 ####[facility] LABCLIA [id number] [place] [address] [place] Calcium [Mass/Vol] 10.1 mg/dL Normal 8.5-10.2 [facility] Comment on above: Order Comment: Speci men Type: BLOOD SPECIMENOrdering Facility: [facility] Address: [address] [place], [place] [id number] Performed By: #### C RET1, 17153-4, LIPNF, 90432-7 ####[facility] LABCLIA [id number] [place] [address] [place] Chloride [Moles/Vol] 104 mmol/L Normal 98-107 [facility] Comment on above: Order Comment: Speci men Type: BLOOD SPECIMENOrdering Facility: [facility] Address: [address] [place] [address] Performed By: #### C RET1, 68119-7, LIPNF, 32883-4 ####[facility] LABIA [id number] [place] [address] [place] CO2 [Moles/Vol] 21 mmol/L Low 22-30 [facility] Comment on above: Order Comment: Speci men Type: BLOOD SPECIMENOrdering Facility: [facility] Address: [address] [place] [address] Performed By: #### C RET1, 02993-4, LIPNF, 73650-3 ####[facility] LABIA [id number] [place] [place] [address] [place] Creatinine [Mass/Vol] 1.03 mg/dL High 0.58-0.96 [facility] Comment on above: Order Comment: Speci men Type: BLOOD SPECIMENOrdering Facility: [facility] Address: [address] [place] [address] Performed By: #### C RET1, 37201-8, LIPNF, 16468-4 ####[facility] LABIA [id number] [place] [address] [place] Creatinine and Glomerular filtration rate.predicted panel (S/P/Bld) 58 mL/min/1.73m??? Low >=60 [facility] Comment on above: Order Comment: Speci men Type: BLOOD SPECIMENOrdering Facility: [facility] Address: [address] [place] [address] Result Comment: Christina mated Glomerular Filtration Rate (eGFR) is calculated using the 2020 CKD-EPI creatinine equation. This equation utilizes serum creatinine, sex, and age as parameters. The creatinine assay has traceable calibration to isotope dilution-mass spectrometry. Refer to KDIGO guidelines for clinical interpretation. In patients with unstable renal function, e.g. those with acute kidney injury, the eGFR may not accurately reflect actual GFR. Performed By: #### C RET1, 00120-1, LIPHUGO, 37570-2 ####[facility] LABIA [id number] [place] [address] [place] Glucose [Mass/Vol] 74 mg/dL Normal 74-99 [facility] Comment on above: Order Comment: Specflako cotto Type: BLOOD SPECIMENOrdering Facility: [facility] Address: [address] [place] [address] Result Comment: The [place] Diabetes Association (ADA) provides guidance for cutoff values for fasting glucose and random glucose. The ADA defines fasting as no caloric intake for at least 8 hours. Fasting plasma glucose results between 100 to 125 mg/dL indicate increased risk for diabetes (prediabetes). Fasting plasma glucose results greater than or equal to 126 mg/dL meet the criteria for diagnosis of diabetes. In the absence of unequivocal hyperglycemia, results should be confirmed by repeat testing. In a patient with classic symptoms of hyperglycemia or hyperglycemic crisis, random plasma glucose results greater than or equal to 200 mg/dL meet the criteria for diagnosis of diabetes. Reference: Standards of Medical Care in Diabetes 2016, [place] Diabetes Association. Diabetes Care. 2016.39(Suppl 1). Performed By: #### C RET1, 76445-8, LIPNF, 96541-9 ####[facility] LABIA [id number] [place] [id number] [place] Potassium [Moles/Vol] 4.4 mmol/L Normal 3.7-5.1 [facility] Comment on above: Order Comment: Arielle men Type: BLOOD SPECIMENOrdering Facility: [facility] Address: [address] [place] [address] Performed By: #### C RET1, 18019-3, LIPNF, 13506-2 ####[facility] LABCLIA [id number] [place] [address] [place] Protein [Mass/Vol] 7.4 g/dL Normal 6.3-8.0 [facility] Comment on above: Order Comment: Speci men Type: BLOOD SPECIMENOrdering Facility: [facility] Address: [address] [place] [address] Performed By: #### C RET1, 21479-4, LIPNF, 14759-6 ####[facility] LABIA [id number] [place] [address] [place] Sodium [Moles/Vol] 141 mmol/L Normal 136-144 [facility] Comment on above: Order Comment: Speci men Type: BLOOD SPECIMENOrdering Facility: [facility] Address: [address] [place] [address] Performed By: #### C RET1, 56799-2, LIPNF, 36708-2 ####[facility] LABIA [id number] [place] [address] [place] Urea nitrogen [Mass/Vol] 17 mg/dL Normal 7-21 [facility] Comment on above: Order Comment: Speci men Type: BLOOD SPECIMENOrdering Facility: [facility] Address: [address] [place] [address] Performed By: #### C RET1, 72760-3, LIPNF, 37270-2 ####[facility] LABIA [id number] [place] [id number] [place] ECG COMPLETEon 03-21-2024 ECG COMPLETE Ventricular Rate : 62 BPM Atrial Rate : 62 BPM P-R Interval : 170 ms QRS Duration : 112 ms Q-T Interval : 432 ms QTC Calculation(Bazett) : 438 ms Calculated R [place] : -27 degrees Calculated T [place] : 157 degrees NORMAL SINUS RHYTHM LEFT VENTRICULAR HYPERTROPHY WITH REPOLARIZATION ABNORMALITY ( R in aVL , Umang product ) ABNORMAL ECG Confirmed by IFTIKHAR SANDOVAL MD ([id number]) on 04/16/2024 9:37:20 AM NAME : PILY BARNES PID : [id number] : 1950 Gender : Female Race : ORD : [id number] Procedure Date : Mar 21 2024 06:41:44 Edit Date : Apr 16 2024 09:37:22 Diagnosis: NORMAL SINUS RHYTHM LEFT VENTRICULAR HYPERTROPHY WITH REPOLARIZATION ABNORMALITY ( R in aVL , Spencer product ) ABNORMAL ECG Confirmed by IFTIKHAR SANDOVAL MD ([id number]) on 04/16/2024 9:37:20 AM Test Reason : Location : 314 : J14 j1-4 Overread By : IFTIKHAR SANDOVAL MD Edited By : IFTIKHAR SANDOVAL MD Referred By : MICHELL MATHIS Acquired by : DARLING PATHAK [facility] ECHOon 03-21-2024 Echocardiography Echocardiography Report: Transthoracic Echo [facility] J1-5 Date of service: 03/21/2024 9:07:56 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 PILY BARNES : 1950 Age: 73 years Gender: F Primary rhythm: sinus. Height: 152.40 cm BSA: 1.70 m Weight: 68.30 kg BMI: 29.4 kg/m Heart rate 84 bpm Blood pressure 144/90 mmHg Technically difficult exam due to body habitus, suboptimal positioning and pt in wheelchair. Color Doppler was utilized to interrogate the cardiac valves assessed and spectral Doppler was utilized to determine the flow velocities and pressure gradients reported in this exam. MEASUREMENTS: Value Indexed Normal Max aortic dimension 4.7 cm Ao < 3.8 Left atrial volume 84 ml (4ch A-L) 49 ml/m Luis <= 34 LV ID (diastole) 3.5 cm (2D) 2.05 cm/m LV ID (systole) 2.3 cm (2D) 1.33 cm/m IVS, leaflet tips 2.3 cm (2D) Posterior wall thickness 1.1 cm (2D) Left ventricular mass 238 g (2D) 140 g/m LV stroke volume 35 ml (2D biplane) LV end diastolic volume 61 ml (2D biplane) 35.7 ml/m 29<=EDVi<62 LV end systolic volume 26 ml (2D biplane) 15.1 ml/m Ejection Fraction 58 % (2D biplane) EF > 54 FINDINGS: LEFT VENTRICLE The left ventricle is normal in size. There is severe upper septal left ventricular hypertrophy. Left ventricular systolic function is normal. Normal left ventricular diastolic function. Mitral annular lateral E/e': 3.7. Mitral annular septal E/e': 8.2. Wall Motion: All scored segments are normal. RIGHT VENTRICLE The right ventricle is normal in size. Right ventricular systolic function is normal. RV systolic tissue Doppler velocity is 16.0 cm/s. Tricuspid annular displacement is 2.2 cm. Estimated right ventricular systolic pressure is not reported due to an insufficient tricuspid regurgitation signal. Estimated right atrial pressure is 8 mmHg based on IVC assessment. LEFT ATRIUM The left atrial cavity is severely dilated. RIGHT ATRIUM The right atrial cavity is normal in size. Inferior Vena Cava: The inferior vena cava appears normal measuring 2.0 cm. The vessel decreases less than 50 percent with inspiration. MITRAL VALVE The mitral valve leaflets are structurally normal. There is trace mitral valve regurgitation. There is mild thickening. The pressure half time is 82 msec. The peak mitral E/A ratio is 0.60. The average mitral E/e' ratio is 5.9. The mitral flow deceleration time is 284 msec. TRICUSPID VALVE The tricuspid valve leaflets are structurally normal. There is trace tricuspid valve regurgitation. AORTIC VALVE There is trace (trace - 1+) aortic valve regurgitation. Tricuspid aortic valve. There is mild thickening. The peak gradient is 15 mmHg (peak velocity = 192.6 cm/s). The mean gradient is 6 mmHg. The LVOT mean velocity is 88.7 cm/s. The aortic VTI is 32.5 cm. The mean velocity in the aortic valve is 114.8 cm/s. The dimensionless valve index is 0.74. PULMONIC VALVE The pulmonic valve cusps are structurally normal. There is trace pulmonic valve regurgitation. AORTA The visualized aorta is dilated. Measurements - Aortic valve annulus 1.7 cm. Sinus: 3.5 cm. Mid ascending aorta 4.7 cm. Distal ascending aorta 4.7 cm. INTERATRIAL SEPTUM There is no evidence of intracardiac shunting as detected by Doppler. INTERVENTRICULAR SEPTUM There is normal motion of the interventricular septum. There is no flow through the interventricular septum as detected by Doppler. PERICARDIUM There is no pericardial effusion. CONCLUSIONS: - Technically difficult exam due to body habitus, suboptimal positioning and pt in wheelchair. - Exam indication: Re-evaluation of known ascending aortic dilatation to establish baseline - The left ventricle is normal in size. There is severe upper septal left ventricular hypertrophy. Left ventricular systolic function is normal. EF = 58 5% (2D biplane) Normal left ventricular diastolic function. - The right ventricle is normal in size. Right ventricular systolic function is normal. - The left atrial cavity is severely dilated. - The visualized aorta is dilated with a maximal dimension of 4.7 cm. - Estimated right ventricular systolic pressure is not reported due to an insufficient tricuspid regurgitation signal. Estimated right atrial pressure is 8 mmHg based on IVC assessment. - The patient has not had a prior CC echocardiographic exam for comparison. * * * Final * * * [facility] Medical Image : [id number]. [id number] ynamicsSISUID Normal [facility] LIPID PANEL, NONFASTINGon Cholesterol [Mass/Vol] 215 mg/dL High NINF - 200 mg/dL [facility] Comment on above: <200 mg/dL, Desirabl e 200-239 mg/dL, Borderline high >239 mg/dL, High HDL Cholesterol, Nonfasting 75 mg/dL 39 - PINF mg/dL [facility] Comment on above: 40-59 mg/dL, Accepta ble >59 mg/dL, High: Negative risk factor for coronary heart disease <40 mg/dL, Low: Positive risk factor for coronary heart disease LDL Cholesterol, Nonfasting 121 mg/dL High NINF - 100 mg/dL [facility] Comment on above: <100 mg/dL, Optimal 100-129 mg/dL, Near optimal/above optimal 130-159 mg/dL, Borderline high 160-189 mg/dL, High >189 mg/dL, Very high Secondary prevention optimal LDL Cholesterol levels are recommended to be < 70 mg/dL LDL/HDL Ratio, Nonfasting 1.61 mg/dL NI NF - 2.54 mg/dL [facility] Comment on above: Reference: 1. National Cholesterol Education Program ATP III Guideline At-A-Glance Quick Desk Reference: National Heart, Lung, and Blood [place]. National Institutes of Health. 2001: NIH Publication No. 01-3305. 2. An International Atherosclerosis Society position paper: global recommendations for the management of dyslipidemia: executive summary, Atherosclerosis. 2014: 232(2):410-413. Non HDL Cholesterol, Nonfasting 140 mg/dL High NINF - 130 mg/dL [facility] Comment on above: <130 mg/dL, Optimal 130-159 mg/dL, Near optimal/above optimal 160-189 mg/dL, Borderline high 190-219 mg/dL, High >219 mg/dL, Very high Secondary prevention optimal non HDL Cholesterol levels are recommended to be <100 mg/dL Total Chol/HDL Ratio, Nonfasting 2.87 mg/dL NINF - 5.10 mg/dL [facility] Triglycerides, Nonfasting 94 mg/dL NI NF - 150 mg/dL [facility] Comment on above: <150 mg/dL, Normal 150-199 mg/dL, Borderline high 200-499 mg/dL, High >499 mg/dL, Very high VLDL Cholesterol, Nonfasting 19 mg/dL NINF - 30 mg/dL [facility] Cholesterol [Mass/Vol] 215 mg/dL High <200 [facility] Comment on above: Order Comment: Arielle cotto Type: BLOOD SPECIMENOrdering Facility: [facility] Address: [address] [place] [address] Result Comment: <200 mg/dL, Desirable 200-239 mg/dL, Borderline high >239 mg/dL, High Performed By: #### C RET1, 72964-8, LIPNF, 78815-1 ####[facility] LABCLIA [id number] [facility] [id number] [id number] [place] HDL CHOLESTEROL, NF 75 mg/dL Normal >39 [facility] Comment on above: Order Comment: Lilliani men Type: BLOOD SPECIMENOrdering Facility: [facility] Address: [address] [place] [address] Result Comment: 40-5 9 mg/dL, Acceptable >59 mg/dL, High: Negative risk factor for coronary heart disease <40 mg/dL, Low: Positive risk factor for coronary heart disease Performed By: #### C RET1, 58999-9, LIPNF, 09381-9 ####[facility] LABCLIA [id number] [place] [address] [place] LDL CHOLESTEROL, NF 121 mg/dL High <100 [facility] Comment on above: Order Comment: Speci men Type: BLOOD SPECIMENOrdering Facility: [facility] Address: [address] [place] [address] Result Comment: <100 mg/dL, Optimal 100-129 mg/dL, Near optimal/above optimal 130-159 mg/dL, Borderline high 160-189 mg/dL, High >189 mg/dL, Very high Secondary prevention optimal LDL Cholesterol levels are recommended to be < 70 mg/dL Performed By: #### C RET1, 30144-7, LIPNF, 10859-8 ####[facility] LABCLIA [id number] [address] STATES OF [facility] LDL/HDL RATIO, NF 1.61 mg/dL Normal <2.54 [facility] Comment on above: Order Comment: Speci men Type: BLOOD SPECIMENOrdering Facility: [facility] Address: [address] [place] [address] Result Comment: Refe rence: 1. National Cholesterol Education Program ATP III Guideline At-A-Glance Quick Desk Reference: National Heart, Lung, and Blood [place]. National Institutes of Health. 2001: NIH Publication No. 01-3305. 2. An International Atherosclerosis Society position paper: global recommendations for the management of dyslipidemia: executive summary, Atherosclerosis. 2014: 232(2):410-413. Performed By: #### C RET1, 64951-8, LIPNF, 65397-4 ####[facility] LABCLIA [id number] [place] [address] [place] NON HDL CHOL, NF 140 mg/dL High <130 [facility] Comment on above: Order Comment: Speci men Type: BLOOD SPECIMENOrdering Facility: [facility] Address: [address] [place] [address] Result Comment: <130 mg/dL, Optimal 130-159 mg/dL, Near optimal/above optimal 160-189 mg/dL, Borderline high 190-219 mg/dL, High >219 mg/dL, Very high Secondary prevention optimal non HDL Cholesterol levels are recommended to be <100 mg/dL Performed By: #### C RET1, 88028-8, LIPNF, 01374-8 ####[facility] LABCLIA [id number] [place] [address] [place] T CHOL/HDL RATIO NF 2.87 mg/dL Normal <5.10 [facility] Comment on above: Order Comment: Speci men Type: BLOOD SPECIMENOrdering Facility: [facility] Address: [address] [place] [address] Performed By: #### C RET1, 73171-6, LIPNF, 90684-2 ####[facility] LABCLIA [id number] [place] [address] [place] TRIGLYCERIDES, NF 94 mg/dL Normal <150 [facility] Comment on above: Order Comment: Speci men Type: BLOOD SPECIMENOrdering Facility: [facility] Address: [address] [place] [address] Result Comment: <150 mg/dL, Normal 150-199 mg/dL, Borderline high 200-499 mg/dL, High >499 mg/dL, Very high Performed By: #### C RET1, 63762-8, LIPNF, 57667-4 ####[facility] LABCLIA [id number] [place] [address] [place] VLDL CHOLESTEROL, NF 19 mg/dL Normal <30 [facility] Comment on above: Order Comment: Speci men Type: BLOOD SPECIMENOrdering Facility: [facility] Address: [address] [place] [address] Performed By: #### C RET1, 41402-8, LIPNF, 52232-1 ####[facility] LABCLIA [id number] [place] [address] [place] NT PRO BNPon 03-21-2024 Natriuretic peptide.B prohormone N-Terminal [Mass/Vol] 146 pg/mL High NINF - 125 pg/mL [facility] NT-proBNP SerPl-mCncon 03-21 Natriuretic peptide.B prohormone N-Terminal [Mass/Vol] 146 pg/mL High <125 [facility] Comment on above: Order Comment: Speci men Type: BLOOD SPECIMENOrdering Facility: [facility] Address: [address] [place] [address] Performed By: #### C RET1, 72370-1, LIPNF, 09728-8 ####[facility] LABCLIA [id number] [place] Natriuretic peptide.B prohor hector N-Terminal [Mass/Vol]on 03-21-2024 Interpretation and review of laboratory results Abnormal [facility] No Panel Informationon 03-21 Interpretation and review of laboratory results Abnormal [facility] CNOVon 03-04-2024 CNOV Office Visit ([facility]) PILY BARNES ([id number]) 1950 F Date Time Provider Department 03/04/24 2:40 PM ARELY HERCULES [facility] During your visit today, we recorded the following information about you: Pulse Blood pressure Weight Height 82/minute 128/74 68 kg 1.524 m Arely Hercules PA-C 03/04/2024 3:15 PM Signed CHIEF COMPLAINT: Patient presents with: Recheck: EGD- Dysphagia HPI Pily Wade Cameron is a 73 year old female here today for Recheck (EGD- Dysphagia ) PMHx of asthma, Bipolar 1, CKD, depression, TATI, HTN Son is present today. Patient tells me that she is feeling well today. Notes that she has not had dysphagia since her EGD with dilation. Notes she is feeling well since her diverticulitis flare. Note bowel movements are normal. No rectal bleeding. This was her first diverticulitis flare. Last OV with me 10/03/2023: Assessment/Plan (R13.10) Dysphagia, unspecified type (primary encounter diagnosis) (R93.3) Abnormal barium swallow 1. Dysphagia, unspecified type -- Patient with dysphagia to solids, liquids and pills for at least the last 6 months. Feels things getting stuck in the cervical esophagus. -- Plan for EGD w/ possible dilation for further evaluation - EGD DIAGNOSTIC; Future 2. Abnormal barium swallow -- Esophagram is showing narrowing in the cervical esophagus and mucosal changes in the distal esophagus. -- Plan for EGD for further evaluation - EGD DIAGNOSTIC; Future Follow up in office PRN. Current Outpatient Medications Medication Sig calcium carbonate 500 mg calcium (1,250 mg) chewable tablet amLODIPine (NORVASC) 5 mg tablet acetaminophen (TYLENOL) 325 mg tablet famotidine (PEPCID) 20 mg tablet DELSYM 30 mg/5 mL oral liquid MUCINEX 600 mg 12 hr tablet HIGH POTENCY MULTIVITAMIN 400 mcg nystatin (MYCOSTATIN) powder Omeprazole 20 mg TbEC ondansetron (ZOFRAN) 4 mg tablet Take 4 mg by mouth every 6 hours as needed. cholecalciferol (VITAMIN D3) 50 mcg (2,000 unit) tablet loratadine (CLARITIN) 10 mg tablet clonazePAM (KLONOPIN) 0.5 mg tablet 1/2 tablet by mouth every day as needed for severe anxiety buPROPion XL (WELLBUTRIN XL) 300 mg 24 hr tablet Take 1 tablet by mouth once daily. FLUoxetine (PROZAC) 20 mg capsule 3 capsule daily ARIPiprazole (ABILIFY) 5 mg tablet Take 1 tablet by mouth once daily. lamoTRIgine (LAMICTAL) 25 mg tablet Take 2 tablets by mouth once daily. paliperidone palmitate (INVEGA SUSTENNA) 39 mg/0.25 mL syrg injection INJECT 0.25 ML into THE MUSCLE EVERY FOUR WEEKS fluticasone-vilanter ol (BREO ELLIPTA) 100-25 mcg/dose inhaler Inhale 1 puff BY MOUTH INTO THE LUNGS EVERY DAY fluticasone (FLONASE) 50 mcg/actuation nasal spray instill TWO SPRAYS IN EACH nostril ONCE daily NEEDED albuterol HFA (PROVENTIL HFA, VENTOLIN HFA) 90 mcg/actuation inhaler INHALE TWO PUFFS BY MOUTH INTO THE LUNGS instructed EVERY 4 HOURS NEEDED FOR WHEEZING OR FOR SHORTNESS OF BREATH lisinopril (ZESTRIL, PRINIVIL) 20 mg tablet Take 1 tablet by mouth once daily. No current facility-administere d medications for this visit. Facility-Administere d Medications Ordered in Other Visits Medication Dose Route Frequency glycopyrrolate 0.2 mg injection (ROBINUL) 0.2 mg INTRAVENOUS (PACU) PRN ondansetron (PF) 4 mg injection (ZOFRAN) 4 mg INTRAVENOUS (PACU) PRN ALLERGIES Allergen Reactions Sulfadiazine Swelling Facial swelling Milk Other: See Comments Abdominal bloating Seasonal Allergies Intolerance Sulfa (Sulfonamide * Itching Social History Tobacco Use Smoking status: Never Smokeless tobacco: Never Vaping Use Vaping Use: Never used Substance Use Topics Alcohol use: No Drug use: No PAST MEDICAL HISTORY Diagnosis Date Asthma Balance problem uses a walker Bipolar 1 disorder (HCC) CKD (chronic kidney disease) Depression Hypertension Mitral valve disorder TATI (obstructive sleep apnea) 08/06/2019 undiagnosed Substernal goiter PAST SURGICAL HISTORY Procedure Laterality Date [facility]ONOSCOPY [facility]/16/2023 5 cm hiatal hernia, tubular adenoma HYSTERECTOMY HX POST-CATARACT LASER SURGERY 09/2020 THYROIDECTOMY TOTAL/COMPLETE Left 12/16/2020 Dr. Soria FAMILY HISTORY Problem Relation Age of Onset Psychiatry Mother other (parkinson disease) Mother Uterine Cancer Mother Ischemic Heart Disease Father Thyroid Sister Colon Cancer No Family History REVIEW OF SYSTEMS Review of Systems HENT: Positive for mouth sores. All other systems reviewed and are negative. PHYSICAL EXAM BP 128/74 Pulse 82 Ht 5' 0" (1.52m) Wt 150 lb (68.0kg) BMI 29.30 kg/(m2). Physical Exam Constitutional: Appearance: Normal appearance. HENT: Head: Normocephalic and atraumatic. Eyes: General: No scleral icterus. Extraocular Movements: Extraocular movements intact. Conjunctiva/ (more content not included)... Normal [facility] CNPNon 02-21-2024 [facility] Telephone (TOMN) CAMERON,PILY Mauro ([id number]) 1950 F Date Time Provider Department 02/21/24 MICHELL MATHIS [facility] During your visit today, we recorded the following information about you: Mag Harmon 02/21/2024 3:26 PM Addendum LOCAL PATIENT Received Routed [facility] Telephone Encounter from JANA Thompson Cameron is being referred to First Available/Unspecifie d by No referring provider defined for this encounter. 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 Referral triage process explained: Yes Patient will receive a call from Cardiac NPM after triage review with surgeon to discuss any additional testing and/or consults that will be scheduled. Pt will then receive a call from our scheduling office for scheduling. Please call pt at [phone]. Patient Registration: Registration complete/updated: yes Insurance card(s) scanned in [facility] with in the past year: Yes Pt's [employer] is inactive. Ok to communicate to pt via [employer] not asked Medical Records: Records in [facility] (internal [facility] records): Yes Imaging in [facility] (internal [facility] records): Yes Care Everywhere - queried yes, downloaded Yes Linked Outside Organizations (list): [facility] Requested: yes Date: 02/21/24 Outside Hospital(s) requested imaging from: [facility]. Imaging will be received via Electronic Transfer Received: Yes Imaging uploaded: Yes via [employer] Waiting on additional: No. Missing (list): N/A Additional providers added to Care Teams: N/A Additional Notes/Comments: N/A Enct routed to: Yes, Cardiac NPM for triage Mag Kenny 02/21/2024 4:03 PM Signed Email sent to Raquel in file room at [facility], requesting image of CT. Magalex Harmon Cee Hartman RN 02/22/2024 11:38 AM Signed diagnosis: ascending aorta 4.6 cm history: diverticulitis, bipolar, HTN, TATI, SAH blood thinners: none Cee Hartman RN 02/23/2024 12:06 PM Signed eval only cards, testing, Dr. Mathis *shazia please call with date I have called and discussed with Pily's son Jenise, Dr. Mathis's recommendations which are further testing and eval. She would like to come shazia. JOSELYN Olea Aaron 02/26/2024 4:31 PM Signed CALLED AND CONFIRMED APPTS W/PT'S SON JENISE VIA PHONE MAILED REMINDER FED [employer] NEXT DAY 02-26-24 AW #[id number] Allergies As of Date: 02/21/2024 Noted Allergy Reaction SULFADIAZINE 03/16/2020 7 - Swelling Comments: Facial swelling MILK 03/18/2022 14 - Other: See Comments Comments: Abdominal bloating SEASONAL ALLERGIES 09/20/2017 5 - Intolerance SULFA (SULFONAMIDE ANTIBIOTICS) 09/20/2017 9 - Itching Date Reviewed: 11/14/2023 Reviewed by: Sharda Howard RN - Fully Assessed Reason for Visit: Referral Information [[id number]] New Patient Evaluation [154] Primary Visit Diagnosis:Aneurysm of ascending aorta without rupture (HCC) [I71.21] Other Visit Diagnoses:Diverticul itis [K57.92] Primary hypertension [I10] Disorder of artery or arteriole (HCC) [I77.9] Order(s):CONSULT TO CARDIOLOGY [9004] Order #: [id number]: 1 FUTURE CARDIOTHORACIC PREOP EVALUATION [] Order #: [id number]: 1 FUTURE ECG COMPLETE [ECG01] Order #: [id number] FUTURE ECHO [529090] Order #: [id number]: 1 FUTURE CTA CHEST (GATED) W IVCON [9289496] Order #: [id number] FUTURE CREATININE BLD [SQCRET] Order #: [id number] FUTURE Prescriptions as of 02/26/2024 - acetaminophen (TYLENOL) 325 mg tablet - famotidine (PEPCID) 20 mg tablet - DELSYM 30 mg/5 mL oral liquid - MUCINEX 600 mg 12 hr tablet - HIGH POTENCY MULTIVITAMIN 400 mcg - nystatin (MYCOSTATIN) powder - Omeprazole 20 mg TbEC - ondansetron (ZOFRAN) 4 mg tablet Take 4 mg by mouth every 6 hours as needed. - calcium carbonate 600 mg-cholecalciferol 400 units 600 mg-10 mcg (400 unit) tab - cholecalciferol (VITAMIN D3) 50 mcg (2,000 unit) tablet - loratadine (CLARITIN) 10 mg tablet - clonazePAM (KLONOPIN) 0.5 mg tablet 1/2 tablet by mouth every day as needed for severe anxiety - buPROPion XL (WELLBUTRIN XL) 300 mg 24 hr tablet Take 1 tablet by mouth once daily. - FLUoxetine (PROZAC) 20 mg capsule 3 capsule daily - ARIPiprazole (ABILIFY) 5 mg tablet Take 1 tablet by mouth once daily. - lamoTRIgine (LAMICTAL) 25 mg tablet Take 2 tablets by mouth once daily. - paliperidone palmitate (INVEGA SUSTENNA) 39 mg/0.25 mL syrg injection INJECT 0.25 ML into THE MUSCLE EVERY FOUR WEEKS - fluticasone-vilanter ol (BREO ELLIPTA) 100-25 mcg/dose inhaler Inhale 1 puff BY MOUTH INTO THE LUNGS EVERY DAY - fluticasone (FLONASE) 50 mcg/actuation nasal spray instill TWO SPRAYS IN EACH nostril ONCE daily NEEDED - albuterol HFA (PROVENTIL HFA, VENTOLIN HFA) 90 mcg/actuation inhaler INHALE TWO PUFFS BY MOUTH INTO THE LUNGS instructed EVERY 4 HO (more content not included)... [facility] PILY BARNES ([id number]) 1950 F Date Time Provider Department 02/21/24 MICHELL MATHISHSMN During your visit today, we recorded the following information about you: Oralia Adams 02/21/2024 3:12 PM Signed Insurance Card(s) scanned into [employer] Please register/advise Thank You! Kayla Penny 02/21/2024 3:35 PM Signed IN Allergies As of Date: 02/21/2024 Noted Allergy Reaction SULFADIAZINE 03/16/2020 7 - Swelling Comments: Facial swelling MILK 03/18/2022 14 - Other: See Comments Comments: Abdominal bloating SEASONAL ALLERGIES 09/20/2017 5 - Intolerance SULFA (SULFONAMIDE ANTIBIOTICS) 09/20/2017 9 - Itching Date Reviewed: 11/14/2023 Reviewed by: Sharda Howard RN - Fully Assessed Reason for Visit: Insurance Authorization [[id number]] Prescriptions as of 02/21/2024 - acetaminophen (TYLENOL) 325 mg tablet - famotidine (PEPCID) 20 mg tablet - DELSYM 30 mg/5 mL oral liquid - MUCINEX 600 mg 12 hr tablet - HIGH POTENCY MULTIVITAMIN 400 mcg - nystatin (MYCOSTATIN) powder - Omeprazole 20 mg TbEC - ondansetron (ZOFRAN) 4 mg tablet Take 4 mg by mouth every 6 hours as needed. - calcium carbonate 600 mg-cholecalciferol 400 units 600 mg-10 mcg (400 unit) tab - cholecalciferol (VITAMIN D3) 50 mcg (2,000 unit) tablet - loratadine (CLARITIN) 10 mg tablet - clonazePAM (KLONOPIN) 0.5 mg tablet 1/2 tablet by mouth every day as needed for severe anxiety - buPROPion XL (WELLBUTRIN XL) 300 mg 24 hr tablet Take 1 tablet by mouth once daily. - FLUoxetine (PROZAC) 20 mg capsule 3 capsule daily - ARIPiprazole (ABILIFY) 5 mg tablet Take 1 tablet by mouth once daily. - lamoTRIgine (LAMICTAL) 25 mg tablet Take 2 tablets by mouth once daily. - paliperidone palmitate (INVEGA SUSTENNA) 39 mg/0.25 mL syrg injection INJECT 0.25 ML into THE MUSCLE EVERY FOUR WEEKS - fluticasone-vilanter ol (BREO ELLIPTA) 100-25 mcg/dose inhaler Inhale 1 puff BY MOUTH INTO THE LUNGS EVERY DAY - fluticasone (FLONASE) 50 mcg/actuation nasal spray instill TWO SPRAYS IN EACH nostril ONCE daily NEEDED - albuterol HFA (PROVENTIL HFA, VENTOLIN HFA) 90 mcg/actuation inhaler INHALE TWO PUFFS BY MOUTH INTO THE LUNGS instructed EVERY 4 HOURS NEEDED FOR WHEEZING OR FOR SHORTNESS OF BREATH - lisinopril (ZESTRIL, PRINIVIL) 20 mg tablet Take 1 tablet by mouth once daily. - amLODIPine (NORVASC) 2.5 mg tablet Take 1 tablet by mouth once daily. Facility-Administere d Medications as of 02/21/2024 - glycopyrrolate 0.2 mg injection (ROBINUL) - ondansetron (PF) 4 mg injection (ZOFRAN) Meds Comments as of 03/27/2019: Patient reports med noncompliance since discharge from hospital Problem List As Of Date 02/21/2024 Noted Resolved Dehydration [E86.0] 09/20/2017 09/29/2017 DEENA (acute kidney injury) (HCC) [N17.9] 09/20/2017 11/21/2017 Depression [F32.A] 09/20/2017 11/27/2017 Rule-out : Bipolar disorder (HCC) [F31.9] 09/20/2017 10/28/2019 Essential hypertension [I10] 09/20/2017 Hypokalemia [E87.6] 09/20/2017 08/12/2019 Pyuria [R82.81] 09/20/2017 11/21/2017 Polycythemia [D75.1] 09/20/2017 11/21/2017 Severe recurrent major depression with psychoti*09/22/2017 Mild intermittent asthma [J45.20] 09/23/2017 Drug overdose [T50.901A] 11/13/2017 11/27/2017 Suicide attempt (HCC) [T14.91XA] 11/13/2017 UTI (urinary tract infection) [N39.0] 11/13/2017 08/12/2019 Bipolar depression (HCC) [F31.9] 11/20/2017 11/27/2017 Financial problems [Z59.9] 02/21/2019 Bipolar 1 disorder (HCC) [F31.9] 03/28/2019 Bipolar 1 disorder, depressed, severe (HCC) [F3*08/05/2019 Vitamin D deficiency [E55.9] 08/06/2019 Insomnia [G47.00] 08/06/2019 Abnormal urinalysis [R82.90] 08/06/2019 08/12/2019 Malnutrition of mild degree (HCC) [E44.1] 08/07/2019 08/12/2019 Generalized anxiety disorder [F41.1] 10/17/2019 Bipolar 1 disorder, depressed, moderate (HCC) [*04/30/2020 Hypertensive heart disease without congestive h*06/06/2020 Mixed hyperlipidemia [E78.2] 06/06/2020 Moderate persistent asthma without complication* 020 Nonrheumatic aortic valve stenosis [I35.0] 06/06/2020 Patent foramen ovale [Q21.12] 06/06/2020 Stage 3 chronic kidney disease [N18.30] 06/06/2020 Status post hysterectomy [Z90.710] 06/06/2020 Urge incontinence of urine [N39.41] 06/06/2020 Herpes simplex [B00.9] 06/06/2020 Cardiomegaly [I51.7] 06/06/2020 Allergic rhinitis [J30.9] 06/06/2020 SAH (subarachnoid hemorrhage) (HCC) [I60.9] 06/07/2020 06/17/2020 Fall [W19.XXXA] 06/08/2020 06/17/2020 Multiple thyroid nodules [E04.2] 06/15/2020 Trauma [T14.90XA] 11/06/2020 11/06/2020 Thyroid mass [E07.9] 12/16/2020 02/24/2022 S/P partial thyroidectomy [E89.0] 02/24/2022 Rhabdomyolysis [M62.82] 02/28/2022 Recurrent falls [R29.6] 03/01/2022 Preop examination [Z01.818] 11/14/2023 Abnormal barium swallow [R93.3] 11/14/2023 Dysphagia [R13.10] 11/14/2023 Encount (more content not included)... Normal [facility] Denia 02-19-2024 CNPN Telephone (P[facility]) PILY BARNES ([id number]) 1950 F Date Time Provider Department 02/19/24 CARDIAC SURGEON - UNSPECIFIEDPODCCP During your visit today, we recorded the following information about you: Paulhai Monika 02/19/2024 4:08 PM Signed RECEIVED CALL FROM: Lorena Montana/ ref. PATIENT INFORMATION: Name: Pily Barnes : 1950 (home) [phone] (cell) Email: [email or web address] Referring Provider: No referring provider defined for this encounter. Phone: N/A Fax: Requested Surgeon: First Available/Unspecifie d Reason for appointment/diagnosi s: Aneurysm of Ascending Aorta 4.6cm, without rupture Monika Cano February 19, 2024 4:07 PM Allergies As of Date: 02/19/2024 Noted Allergy Reaction SULFADIAZINE 03/16/2020 7 - Swelling Comments: Facial swelling MILK 03/18/2022 14 - Other: See Comments Comments: Abdominal bloating SEASONAL ALLERGIES 09/20/2017 5 - Intolerance SULFA (SULFONAMIDE ANTIBIOTICS) 09/20/2017 9 - Itching Date Reviewed: 11/14/2023 Reviewed by: Sharda Howard RN - Fully Assessed Reason for Visit: Appointment [186] Prescriptions as of 02/22/2024 - acetaminophen (TYLENOL) 325 mg tablet - famotidine (PEPCID) 20 mg tablet - DELSYM 30 mg/5 mL oral liquid - MUCINEX 600 mg 12 hr tablet - HIGH POTENCY MULTIVITAMIN 400 mcg - nystatin (MYCOSTATIN) powder - Omeprazole 20 mg TbEC - ondansetron (ZOFRAN) 4 mg tablet Take 4 mg by mouth every 6 hours as needed. - calcium carbonate 600 mg-cholecalciferol 400 units 600 mg-10 mcg (400 unit) tab - cholecalciferol (VITAMIN D3) 50 mcg (2,000 unit) tablet - loratadine (CLARITIN) 10 mg tablet - clonazePAM (KLONOPIN) 0.5 mg tablet 1/2 tablet by mouth every day as needed for severe anxiety - buPROPion XL (WELLBUTRIN XL) 300 mg 24 hr tablet Take 1 tablet by mouth once daily. - FLUoxetine (PROZAC) 20 mg capsule 3 capsule daily - ARIPiprazole (ABILIFY) 5 mg tablet Take 1 tablet by mouth once daily. - lamoTRIgine (LAMICTAL) 25 mg tablet Take 2 tablets by mouth once daily. - paliperidone palmitate (INVEGA SUSTENNA) 39 mg/0.25 mL syrg injection INJECT 0.25 ML into THE MUSCLE EVERY FOUR WEEKS - fluticasone-vilanter ol (BREO ELLIPTA) 100-25 mcg/dose inhaler Inhale 1 puff BY MOUTH INTO THE LUNGS EVERY DAY - fluticasone (FLONASE) 50 mcg/actuation nasal spray instill TWO SPRAYS IN EACH nostril ONCE daily NEEDED - albuterol HFA (PROVENTIL HFA, VENTOLIN HFA) 90 mcg/actuation inhaler INHALE TWO PUFFS BY MOUTH INTO THE LUNGS instructed EVERY 4 HOURS NEEDED FOR WHEEZING OR FOR SHORTNESS OF BREATH - lisinopril (ZESTRIL, PRINIVIL) 20 mg tablet Take 1 tablet by mouth once daily. - amLODIPine (NORVASC) 2.5 mg tablet Take 1 tablet by mouth once daily. Facility-Administere d Medications as of 02/22/2024 - glycopyrrolate 0.2 mg injection (ROBINUL) - ondansetron (PF) 4 mg injection (ZOFRAN) Meds Comments as of 03/27/2019: Patient reports med noncompliance since discharge from hospital Problem List As Of Date 02/19/2024 Noted Resolved Dehydration [E86.0] 09/20/2017 09/29/2017 DEENA (acute kidney injury) (HCC) [N17.9] 09/20/2017 11/21/2017 Depression [F32.A] 09/20/2017 11/27/2017 Rule-out : Bipolar disorder (HCC) [F31.9] 09/20/2017 10/28/2019 Essential hypertension [I10] 09/20/2017 Hypokalemia [E87.6] 09/20/2017 08/12/2019 Pyuria [R82.81] 09/20/2017 11/21/2017 Polycythemia [D75.1] 09/20/2017 11/21/2017 Severe recurrent major depression with psychoti*09/22/2017 Mild intermittent asthma [J45.20] 09/23/2017 Drug overdose [T50.901A] 11/13/2017 11/27/2017 Suicide attempt (HCC) [T14.91XA] 11/13/2017 UTI (urinary tract infection) [N39.0] 11/13/2017 08/12/2019 Bipolar depression (HCC) [F31.9] 11/20/2017 11/27/2017 Financial problems [Z59.9] 02/21/2019 Bipolar 1 disorder (HCC) [F31.9] 03/28/2019 Bipolar 1 disorder, depressed, severe (HCC) [F3*08/05/2019 Vitamin D deficiency [E55.9] 08/06/2019 Insomnia [G47.00] 08/06/2019 Abnormal urinalysis [R82.90] 08/06/2019 08/12/2019 Malnutrition of mild degree (HCC) [E44.1] 08/07/2019 08/12/2019 Generalized anxiety disorder [F41.1] 10/17/2019 Bipolar 1 disorder, depressed, moderate (HCC) [*04/30/2020 Hypertensive heart disease without congestive h*06/06/2020 Mixed hyperlipidemia [E78.2] 06/06/2020 Moderate persistent asthma without complication* 020 Nonrheumatic aortic valve stenosis [I35.0] 06/06/2020 Patent foramen ovale [Q21.12] 06/06/2020 Stage 3 chronic kidney disease [N18.30] 06/06/2020 Status post hysterectomy [Z90.710] 06/06/2020 Urge incontinence of urine [N39.41] 06/06/2020 Herpes simplex [B00.9] 06/06/2020 Cardiomegaly [I51.7] 06/06/2020 Allergic rhinitis [J30.9] 06/06/2020 SAH (subarachnoid hemorrhage) (HCC) [I60.9] 06/07/2020 06/17/2020 Fall [W19.XXXA] 06/08/2020 06/17/2020 Multiple thyroid no (more content not included)... Normal [facility] Blood type and Crossmatch pa alvaro (Bld)on 12-17-2023 ABO group Nom (Bld) AB [facility] Blood group antibody screen GEL Ql Negative [facility] D Ag [facility]) [facility] CBC W Auto Differential pane l (Bld)on 12-17-2023 Basophils (Bld) [#/Vol] 0.0 10*3/uL 0.0 - 0.2 10*3/uL [facility] Basophils/100 WBC (Bld) 0.2 % 0.0 - 2.0 % [facility] Eosinophils (Bld) [#/Vol] 0.0 10*3/uL 0. 0 - 0.5 10*3/uL [facility] Eosinophils/100 WBC (Bld) 0.5 % 0.0 - 6.0 % [facility] Erythrocyte distribution width (RBC) [Ratio] 13.5 % 11.5 - 15.0 % [facility] Hematocrit (Bld) [Volume fraction] 42.8 % 35.0 - 47.0 % [facility] Hemoglobin (Bld) [Mass/Vol] 14.0 g/dL 11.7 - 16.0 g/dL [facility] Immature granulocytes (Bld) [#/Vol] 0.0 10*3/uL NINF - 0.1 10*3/uL [facility] Immature granulocytes/100 WBC (Bld) 0.1 % 0.0 - 2.0 % [facility] Interpretation and review of laboratory results Abnormal [facility] th Lymphocytes (Bld) [#/Vol] 0.8 10*3/uL Low 1. 0 - 4.3 10*3/uL [facility] Lymphocytes/100 WBC (Bld) 9.9 % Low 15 .0 - 45.0 % [facility] MCH (RBC) [Entitic mass] 29.3 pg 26. 0 - 34.[address] [facility] MCHC (RBC) [Mass/Vol] 32.7 % 30.5 - 36.0 % [facility] MCV (RBC) [Entitic vol] 89.5 fL 77.0 - 99.[address] [facility] Monocytes (Bld) [#/Vol] 0.6 10*3/uL 0.0 - 0.9 10*3/uL [facility] Monocytes/100 WBC (Bld) 7.4 % 5.0 - 13.0 % [facility] Neutrophils (Bld) [#/Vol] 6.6 10*3/uL 1. 8 - 7.5 10*3/uL [facility] Neutrophils/100 WBC (Bld) 81.9 % 38 .0 - 82.0 % [facility] Nucleated RBC/100 WBC (Bld) [Ratio] 0.0 % [facility] Platelet mean volume (Bld) [Entitic vol] 9.2 fL 9.0 - 12.7 fL [facility] Platelets (Bld) [#/Vol] 180 10*3/uL 140 - 440 10*3/uL [facility] RBC (Bld) [#/Vol] 4.78 10*6/uL 3.80 - 5.2 0 10*6/uL [facility] WBC (Bld) [#/Vol] 8.0 10*3/uL 3.6 - 10.7 10*3/uL [facility] CT Abdomen WO contraston 1. Sigmoid colonic mural thickening with diverticula and pericolonic fatty stranding suggestive of acute diverticulitis. No abscess is seen. Follow-up colonoscopy is suggested after treatment. 2. Bilateral parapelvic renal cysts. 3. Ascending aortic aneurysm measuring up to 4.6 cm. 4. Elevation of right hemidiaphragm with minimal basilar atelectasis. Report Dictated on Electronically Signed By: Nathanael Valle DO Electronically Signed Date/Time: 12/17/2023 3:56 PM [facility] Name[facility] 1950 [id number] Exam Date/Time: 12/17/2023 15:44 Procedure: CT ABDOMEN PELVIS WO IV CONTRAST Ordering Provider: LARA MATTHEW Reason For Exam: Abdominal pain, acute, nonlocalized CT ABDOMEN AND PELVIS WITHOUT IV CONTRAST CLINICAL INDICATION: Rectal bleeding and hematochezia. TECHNIQUE: Multidetector axial CT images through the abdomen and pelvis were obtained without IV contrast. No oral contrast was administered. Images were reconstructed in sagittal and coronal planes. Dose reduction was employed with automated exposure control. COMPARISON: None. FINDINGS: This examination is limited for the evaluation of solid organs and vascular structures due to the lack of intravenous contrast. Lung bases: Minimal right basilar atelectasis. Ascending aorta is dilated and measures 4.6 cm. Scant coronary artery calcifications are identified. Elevation of right hemidiaphragm. Liver: normal hepatic contour. No hepatic lesion. Biliary tree: Gallbladder is contracted. No biliary dilation. . Spleen: Normal spleen size without lesions. Adrenals: Normal. Pancreas: No pancreatic mass or pancreatic duct dilation. Kidneys: No contour abnormality or focal renal lesion identified. Bilateral renal parapelvic cysts. Renal collecting systems: No calculi, hydronephrosis or ureteral dilatation. Free air or fluid: None. Mesenteric/retroperi toneal: No adenopathy or inflammation. Aorta: Aorta and bilateral iliac artery atherosclerotic calcifications. Bowel: The appendix is not identified. No dilatation is noted. Mural thickening of the sigmoid colon with a few sigmoid diverticula. There is fatty stranding within the sigmoid mesentery, typical of acute sigmoid diverticulitis. No pelvic free fluid collection. Pelvic organs/viscera: No pelvic free fluid.. No mass is identified. Uterus is surgically absent. Bladder: No calculi or filling defects. Urinary bladder is incompletely distended. . Inguinal: No adenopathy. Abdominal wall/soft tissues: No ventral hernia is evident. Osseous structures: Mild lumbar degenerative spondylosis. Slight anterolisthesis of L4 on L5. [facility] Nathanael ValleDO - 12/17/2023 Patient Name: [facility]ILY [facility]ARN[facility] : 1950 [id number] Exam Date/Time: 12/17/2023 15:44 Procedure: CT ABDOMEN PELVIS WO IV CONTRAST Ordering Provider: LARA MATTHEW Reason For Exam: Abdominal pain, acute, nonlocalized CT ABDOMEN AND PELVIS WITHOUT IV CONTRAST CLINICAL INDICATION: Rectal bleeding and hematochezia. TECHNIQUE: Multidetector axial CT images through the abdomen and pelvis were obtained without IV contrast. No oral contrast was administered. Images were reconstructed in sagittal and coronal planes. Dose reduction was employed with automated exposure control. COMPARISON: None. FINDINGS: This examination is limited for the evaluation of solid organs and vascular structures due to the lack of intravenous contrast. Lung bases: Minimal right basilar atelectasis. Ascending aorta is dilated and measures 4.6 cm. Scant coronary artery calcifications are identified. Elevation of right hemidiaphragm. Liver: normal hepatic contour. No hepatic lesion. Biliary tree: Gallbladder is contracted. No biliary dilation. . Spleen: Normal spleen size without lesions. Adrenals: Normal. Pancreas: No pancreatic mass or pancreatic duct dilation. Kidneys: No contour abnormality or focal renal lesion identified. Bilateral renal parapelvic cysts. Renal collecting systems: No calculi, hydronephrosis or ureteral dilatation. Free air or fluid: None. Mesenteric/retroperi toneal: No adenopathy or inflammation. Aorta: Aorta and bilateral iliac artery atherosclerotic calcifications. Bowel: The appendix is not identified. No dilatation is noted. Mural thickening of the sigmoid colon with a few sigmoid diverticula. There is fatty stranding within the sigmoid mesentery, typical of acute sigmoid diverticulitis. No pelvic free fluid collection. Pelvic organs/viscera: No pelvic free fluid.. No mass is identified. Uterus is surgically absent. Bladder: No calculi or filling defects. Urinary bladder is incompletely distended. . Inguinal: No adenopathy. Abdominal wall/soft tissues: No ventral hernia is evident. Osseous structures: Mild lumbar degenerative spondylosis. Slight anterolisthesis of L4 on L5. IMPRESSION: 1. Sigmoid colonic mural thickening with diverticula and pericolonic fatty stranding suggestive of acute diverticulitis. No abscess is seen. Follow-up colonoscopy is suggested after treatment. 2. Bilateral parapelvic renal cysts. 3. Ascending aortic aneurysm measuring up to 4.6 cm. 4. Elevation of right hemidiaphragm with minimal basilar atelectasis. Report Dictated on Electronically Signed By: Nathanael Valle DO Electronically Signed Date/Time: 12/17/2023 3:56 PM EDT [facility] Radiology Study observation (narrative) [facility] alth CT Abdomen WO contrastOrdere d By: Nathanael Valle on 12-17-2023 [employer] Work Phone: Comprehensive metabolic 1998 panelon 12-17-2023 Albumin [Mass/Vol] 4.0 g/dL 3.5 - 5.0 g/dL [facility] ALP [Catalytic activity/Vol] 97 U/L 38 - 126 U/L [facility] ALT [Catalytic activity/Vol] 22 U/L 0 - 34 U/L [facility] Anion gap [Moles/Vol] 7 mmol/L 3 - 13 mmol/L [facility] AST [Catalytic activity/Vol] 26 U/L 15 - 46 U/L [facility] Bilirubin [Mass/Vol] 0.7 mg/dL 0.2 - 1 .3 mg/dL [facility] Calcium [Mass/Vol] 9.5 mg/dL 8.4 - 10. 4 mg/dL [facility] Chloride [Moles/Vol] 107 mmol/L 98 - 10 7 mmol/L [facility] CO2 [Moles/Vol] 22 mmol/L 22 - 30 mmol/L [facility] Creatinine [Mass/Vol] 0.86 mg/dL 0.52 - 1.04 mg/dL [facility] GFR/1.73 sq M.predicted MDRD (S/P/Bld) [Vol rate/Area] 71.4 mL/min/{1.73_m2} - PINF [facility] Comment on above: Calculation based on the Chronic Kidney Disease Epidemiology Collaboration (CKD-EPI) equation refit without adjustment for race Glucose [Mass/Vol] 101 mg/dL High 70 - 100 mg/dL [facility] Interpretation and review of laboratory results Abnormal [facility] Potassium [Moles/Vol] 4.3 mmol/L 3.5 - 5.1 mmol/L [facility] Protein [Mass/Vol] 6.9 g/dL 6.3 - 8.2 g/dL [facility] Sodium [Moles/Vol] 136 mmol/L 135 - 145 mmol/L [facility] Urea nitrogen [Mass/Vol] 16 mg/dL 7 - 17 mg/d L [facility] Laboratory - Chemistry and C hemistry - challengeon 12-17-2023 Lipase [Catalytic activity/Vol] 66 U/L 23 - 300 U/L [facility] Lipase [Catalytic activity/V ol]on 12-17-2023 Interpretation and review of laboratory results Normal [facility] No Panel Informationon 12-[address] [facility] Sinus rhythm LVH with IVCD and secondary repolarization abnormality Compared to ECG 02/27/2023 16:18:05 the QRS interval has lengthened Electronically Signed On 12-17-2023 13:07:08 EDT by Prosper Paniagua CV Prosper Shahid MD - 12/17/2023 IMPRESSION: Sinus rhythm LVH with IVCD and secondary repolarization abnormality Compared to ECG 02/27/2023 16:18:05 the QRS interval has lengthened Electronically Signed On 12-17-2023 13:07:08 EDT by Prosper Paniagua [facility] No Panel InformationOrdered By: Prosper Paniagua on 12-17-2023 P [place] 11 degrees [employer] Work Phone: [place] Interval 207 ms [employer] Work Phone: QRS [place] -32 degrees [employer] Work Phone: QRSD Interval 122 ms [employer] Work Phone: QT Interval 458 ms [employer] [place] Work Phone: QTC Interval 458 ms [employer] Work Phone: T Wave [place] 141 degrees [employer] Work Phone: [employer] Work Phone: Urinalysis complete panel (U )Ordered By: Austin Anne on 12-17-2023 Bacteria LM.HPF (Urine sed) [#/Area] Moderate Abnormal Negative /HPF [facility] Bilirubin Ql (U) Negative Negative mg/dL [facility] Clarity (U) Turbid Abnormal Clear [facility] Color (U) Yellow Lt. Yellow [facility] Epithelial cells.squamous LM.HPF (Urine sed) [#/Area] 0-[address] [facility] Glucose Ql (U) Normal Normal (<70) mg/dL [facility] Hemoglobin Ql (U) >1.0 Abnormal Negative mg/dL [facility] Hyaline casts Auto (Urine sed) [#/Area] 0-2 Abnormal Negative /LPF [facility] Interpretation and review of laboratory results Abnormal [facility] th Ketones (U) [Mass/Vol] Negative Negat ken mg/dL [facility] Leukocyte clumps LM.HPF (Urine sed) [#/Area] Rare Abnormal Negative /HPF [facility] Leukocyte esterase Test strip Ql (U) 250 Abnormal Negative Bebe/uL [facility] Mucus LM.HPF (Urine sed) [#/Area] Few Negative /LPF [facility] Nitrite Ql (U) Negative Negative [facility] th pH (U) 5.0 [pH] 5.0 - 8.[address] [facility] Protein (U) [Mass/Vol] 10 mg/dL Abnormal Negative [facility] RBC LM.HPF (Urine sed) [#/Area] 3-[address] [facility] Specific gravity (U) [Rel density] 1.016 1.005 - 1.[address] [facility] Urobilinogen (U) [Mass/Vol] Normal Normal (0-1) mg/dL [facility] WBC LM.HPF (Urine sed) [#/Area] 6-10 Abnormal [facility] Vital signsOrdered By: Gustavo Paniagua on 12-17-2023 Heart rate 60 /min bpm [facility] Work Phone: CBC panel Auto (Bld)on 12-15 Erythrocyte distribution width (RBC) [Ratio] 13.4 % 11.5 - 15.0 % [facility] Hematocrit (Bld) [Volume fraction] 43.3 % 35.0 - 47.0 % [facility] Hemoglobin (Bld) [Mass/Vol] 14.1 g/dL 11.7 - 16.0 g/dL [facility] Interpretation and review of laboratory results Normal [facility] MCH (RBC) [Entitic mass] 29.2 pg 26. 0 - 34.[address] [facility] MCHC (RBC) [Mass/Vol] 32.6 % 30.5 - 36.0 % [facility] MCV (RBC) [Entitic vol] 89.6 fL 77.0 - 99.[address] [facility] Platelet mean volume (Bld) [Entitic vol] 9.2 fL 9.0 - 12.[address] [facility] Platelets (Bld) [#/Vol] 195 10*3/uL 140 - 440 10*3/uL [facility] RBC (Bld) [#/Vol] 4.83 10*6/uL 3.80 - 5.2 0 10*6/uL [facility] WBC (Bld) [#/Vol] 7.5 10*3/uL 3.6 - 10.7 10*3/uL [facility] COVID-19, Flu A/B, and RSV C omboon 12-16-2023 Interpretation and review of laboratory results Normal [facility] Comprehensive metabolic 1998 panelon 12-16-2023 Albumin [Mass/Vol] 4.1 g/dL 3.5 - 5.0 g/dL [facility] ALP [Catalytic activity/Vol] 92 U/L 38 - 126 U/L [facility] ALT [Catalytic activity/Vol] 25 U/L 0 - 34 U/L [facility] Anion gap [Moles/Vol] 8 mmol/L 3 - 13 mmol/L [facility] AST [Catalytic activity/Vol] 29 U/L 15 - 46 U/L [facility] Bilirubin [Mass/Vol] 0.6 mg/dL 0.2 - 1 .3 mg/dL [facility] Calcium [Mass/Vol] 9.2 mg/dL 8.4 - 10. 4 mg/dL [facility] Chloride [Moles/Vol] 108 mmol/L High 98 - 10 7 mmol/L [facility] CO2 [Moles/Vol] 21 mmol/L Low 22 - 30 mmol/L [facility] Creatinine [Mass/Vol] 1.14 mg/dL High 0.52 - 1.04 mg/dL [facility] GFR/1.73 sq M.predicted MDRD (S/P/Bld) [Vol rate/Area] 50.9 mL/min/{1.73_m2} Low - PINF [facility] Comment on above: Calculation based on the Chronic Kidney Disease Epidemiology Collaboration (CKD-EPI) equation refit without adjustment for race Glucose [Mass/Vol] 147 mg/dL High 70 - 100 mg/dL [facility] Interpretation and review of laboratory results Abnormal [facility] Potassium [Moles/Vol] 4.2 mmol/L 3.5 - 5.1 mmol/L [facility] Protein [Mass/Vol] 7.0 g/dL 6.3 - 8.2 g/dL [facility] Sodium [Moles/Vol] 136 mmol/L 135 - 145 mmol/L [facility] Urea nitrogen [Mass/Vol] 21 mg/dL High 7 - 17 mg/d L [facility] Laboratory - Chemistry and C hemistry - challengeon 12-16-2023 Lactate [Moles/Vol] 1.3 mmol/L 0.7 - 2. 0 mmol/L [facility] Lipase [Catalytic activity/Vol] 107 U/L 23 - 300 U/L [facility] Magnesium [Mass/Vol] 2.2 mg/dL 1.6 - 2 .3 mg/dL [facility] Laboratory - Microbiology an d Antimicrobial susceptibilityon 12-16-2023 FLUAV RNA MI+probe Ql (Resp) Not detected Not Detected [facility] FLUBV RNA MI+probe Ql (Resp) Not detected Not Detected [facility] RSV RNA MI+probe Ql (Resp) Not detected Not Detected [facility] SARS-CoV-2 (COVID-19) RNA MI+probe Ql (Resp) Not detected Not Detected [facility] SARS-CoV-2 (COVID-19) RNA MI+probe Ql (Unsp spec) Methodology: real-time, RT-PCR The SARS-CoV-2, Flu A/B, and RSV Combo assay is intended for in vitro diagnostic use under the FDA Emergency Use Authorization (EUA). This test has not been FDA cleared or approved. In compliance with this authorization, please visit www.fda.gov/media/33 6524/download or www.fda.gov/media/14 8414/download to access the applicable information sheets. [facility] No Panel Informationon 12-15 Interpretation and review of laboratory results Normal [facility] Interpretation and review of laboratory results Normal [facility] Urinalysis complete panel (U )Ordered By: Bogdan Soler on 12-16-2023 Bacteria LM.HPF (Urine sed) [#/Area] Few Abnormal Negative /HPF [facility] Bilirubin Ql (U) Negative Negative mg/dL [facility] Clarity (U) Clear Clear [facility] Color (U) Yellow Lt. Yellow [facility] Epithelial cells.squamous LM.HPF (Urine sed) [#/Area] 0-[address] [facility] Glucose Ql (U) Normal Normal (<70) mg/dL [facility] Hemoglobin Ql (U) Negative Negative mg/dL [facility] Hyaline casts Auto (Urine sed) [#/Area] 0-2 Abnormal Negative /LPF [facility] Interpretation and review of laboratory results Abnormal [facility] Ketones (U) [Mass/Vol] Negative Negat ken mg/dL [facility] Leukocyte esterase Test strip Ql (U) Negative Negative Bebe/uL [facility] Mucus LM.HPF (Urine sed) [#/Area] Few Negative /LPF [facility] Nitrite Ql (U) Negative [facility] pH (U) 5.5 [pH] 5.0 - 8.[address] [facility] Protein (U) [Mass/Vol] 30 mg/dL Abnormal Negative [facility] RBC LM.HPF (Urine sed) [#/Area] 0-2 [facility] Specific gravity (U) [Rel density] 1.014 1.005 - 1.[address] [facility] Urobilinogen (U) [Mass/Vol] Normal Normal (0-1) mg/dL [facility] WBC LM.HPF (Urine sed) [#/Area] 0-2 [facility] CNPNon 11-16-[address] [facility] Telephone ([facility]ST[facility]) PILY BARNES ([id number]) 1950 F Date Time Provider Department 11/16/23 ARE[facility] HERCULES During your visit today, we recorded the following information about you: Sergei Rosario MA 11/16/2023 9:30 AM Signed [facility] for EGD biopsy results Sergei Rosario MA 11/17/2023 10:44 AM [facility] 11/21/2023 10:44 AM Signed Unable to reach son phone sent me to . Letter sent. Sergei Rosario MA 12/15/2023 10:10 AM Signed Received a call from Sanam at [facility] requesting EGD results. Faxed results to [phone]. Allergies As of Date: 11/16/2023 Noted Allergy Reaction SULFADIAZINE 03/16/2020 7 - Swelling Comments: Facial swelling MILK 03/18/2022 14 - Other: See Comments Comments: Abdominal bloating SEASONAL ALLERGIES 09/20/2017 5 - Intolerance SULFA (SULFONAMIDE ANTIBIOTICS) 09/20/2017 9 - Itching Date Reviewed: 11/14/2023 Reviewed by: Sharda Howard RN - Fully Assessed Reason for Visit: Results [95] Prescriptions as of 12/15/2023 - acetaminophen (TYLENOL) 325 mg tablet - famotidine (PEPCID) 20 mg tablet - DELSYM 30 mg/5 mL oral liquid - MUCINEX 600 mg 12 hr tablet - HIGH POTENCY MULTIVITAMIN 400 mcg - nystatin (MYCOSTATIN) powder - Omeprazole 20 mg TbEC - ondansetron (ZOFRAN) 4 mg tablet Take 4 mg by mouth every 6 hours as needed. - calcium carbonate 600 mg-cholecalciferol 400 units 600 mg-10 mcg (400 unit) tab - cholecalciferol (VITAMIN D3) 50 mcg (2,000 unit) tablet - loratadine (CLARITIN) 10 mg tablet - clonazePAM (KLONOPIN) 0.5 mg tablet 1/2 tablet by mouth every day as needed for severe anxiety - buPROPion XL (WELLBUTRIN XL) 300 mg 24 hr tablet Take 1 tablet by mouth once daily. - FLUoxetine (PROZAC) 20 mg capsule 3 capsule daily - ARIPiprazole (ABILIFY) 5 mg tablet Take 1 tablet by mouth once daily. - lamoTRIgine (LAMICTAL) 25 mg tablet Take 2 tablets by mouth once daily. - paliperidone palmitate (INVEGA SUSTENNA) 39 mg/0.25 mL syrg injection INJECT 0.25 ML into THE MUSCLE EVERY FOUR WEEKS - fluticasone-vilanter ol (BREO ELLIPTA) 100-25 mcg/dose inhaler Inhale 1 puff BY MOUTH INTO THE LUNGS EVERY DAY - fluticasone (FLONASE) 50 mcg/actuation nasal spray instill TWO SPRAYS IN EACH nostril ONCE daily NEEDED - albuterol HFA (PROVENTIL HFA, VENTOLIN HFA) 90 mcg/actuation inhaler INHALE TWO PUFFS BY MOUTH INTO THE LUNGS instructed EVERY 4 HOURS NEEDED FOR WHEEZING OR FOR SHORTNESS OF BREATH - lisinopril (ZESTRIL, PRINIVIL) 20 mg tablet Take 1 tablet by mouth once daily. - amLODIPine (NORVASC) 2.5 mg tablet Take 1 tablet by mouth once daily. Facility-Administere d Medications as of 12/15/2023 - glycopyrrolate 0.2 mg injection (ROBINUL) - ondansetron (PF) 4 mg injection (ZOFRAN) Meds Comments as of 03/27/2019: Patient reports med noncompliance since discharge from hospital Problem List As Of Date 11/16/2023 Noted Resolved Dehydration [E86.0] 09/20/2017 09/29/2017 DEENA (acute kidney injury) (HCC) [N17.9] 09/20/2017 11/21/2017 Depression [F32.A] 09/20/2017 11/27/2017 Rule-out : Bipolar disorder (HCC) [F31.9] 09/20/2017 10/28/2019 Essential hypertension [I10] 09/20/2017 Hypokalemia [E87.6] 09/20/2017 08/12/2019 Pyuria [R82.81] 09/20/2017 11/21/2017 Polycythemia [D75.1] 09/20/2017 11/21/2017 Severe recurrent major depression with psychoti*09/22/2017 Mild intermittent asthma [J45.20] 09/23/2017 Drug overdose [T50.901A] 11/13/2017 11/27/2017 Suicide attempt (HCC) [T14.91XA] 11/13/2017 UTI (urinary tract infection) [N39.0] 11/13/2017 08/12/2019 Bipolar depression (HCC) [F31.9] 11/20/2017 11/27/2017 Financial problems [Z59.9] 02/21/2019 Bipolar 1 disorder (HCC) [F31.9] 03/28/2019 Bipolar 1 disorder, depressed, severe (HCC) [F3*08/05/2019 Vitamin D deficiency [E55.9] 08/06/2019 Insomnia [G47.00] 08/06/2019 Abnormal urinalysis [R82.90] 08/06/2019 08/12/2019 Malnutrition of mild degree (HCC) [E44.1] 08/07/2019 08/12/2019 Generalized anxiety disorder [F41.1] 10/17/2019 Bipolar 1 disorder, depressed, moderate (HCC) [*04/30/2020 Hypertensive heart disease without congestive h*06/06/2020 Mixed hyperlipidemia [E78.2] 06/06/2020 Moderate persistent asthma without complication* 020 Nonrheumatic aortic valve stenosis [I35.0] 06/06/2020 Patent foramen ovale [Q21.12] 06/06/2020 Stage 3 chronic kidney disease [N18.30] 06/06/2020 Status post hysterectomy [Z90.710] 06/06/2020 Urge incontinence of urine [N39.41] 06/06/2020 Herpes simplex [B00.9] 06/06/2020 Cardiomegaly [I51.7] 06/06/2020 Allergic rhinitis [J30.9] 06/06/2020 SAH (subarachnoid hemorrhage) (HCC) [I60.9] 06/07/2020 06/17/2020 Fall [W19.XXXA] 06/08/2020 06/17/2020 Multiple thyroid nodules [E04.2] 06/15/2020 Trauma [T14.90XA] 11/06/2020 11/06/2020 Thyroid mass [E07.9] 12/16/2020 02/24/2022 S/P partial thyroidectomy [E (more content not included)... Normal [facility] EGD Study observation Narrat iveon 11-14-2023 [facility] CNCOon 10-03-2023 CNCO Letter Text Normal [facility] CNOVon 10-03-2023 CNOV Office Visit ([facility]ST[facility]) PILY BARNES ([id number]) 1950 F Date Time Provider Department 10/03/23 2:15 PM ARE[facility] HERCULES [facility]NOR During your visit today, we recorded the following information about you: Pulse Blood pressure Height 82/minute 132/84 1.524 m Arely Hercules PA-C 10/03/2023 3:47 PM Signed CHIEF COMPLAINT: Patient presents with: Dysphagia : Choking with food. Had a barium swallow This consult was requested by Self for an opinion regarding dysphagia. My final recommendations will be communicated to the requesting health care provider by way of the shared medical record for internal providers or letter via the [employer] for external providers. HPI: Pily Barnes is a 73 year old female who presents for Dysphagia (Choking with food. Had a barium swallow ). PMHx of asthma, Bipolar 1, CKD, depression, TATI, HTN Son is present today. Patient tells me that she has been dealing with dysphagia with solids, liquids, pills. Feels things sticking in her cervical esophagus. Able to get things to pass down but will occasionally vomit due to food stuck. No nausea, abdominal pain, GERD symptoms. Appetite is good. Weight is stable. Bowel movements are regular. No smoking or alcohol use. No pertinent GI family hx. Esophagram 05/31/2023: Impression Limited examination due to patient condition. Narrowing of the cervical esophagus without obstruction. Mucosal irregularity and narrowing of the distal esophagus with transient hold up of the barium tablet. Endoscopy may be beneficial. Small hiatus hernia with spontaneous gastroesophageal reflux. Record Review: [facility] / Outside records reviewed. PAST MEDICAL HISTORY Diagnosis Date Asthma Balance problem uses a walker Bipolar 1 disorder (HCC) CKD (chronic kidney disease) Depression Hypertension Mitral valve disorder TATI (obstructive sleep apnea) 08/06/2019 undiagnosed Substernal goiter PAST SURGICAL HISTORY Procedure Laterality Date COLONOSCOPY Years ago HYSTERECTOMY HX POST-CATARACT LASER SURGERY 09/2020 THYROIDECTOMY TOTAL/COMPLETE Left 12/16/2020 Dr. Soria Allergies: ALLERGIES Allergen Reactions Sulfadiazine Swelling Facial swelling Milk Other: See Comments Abdominal bloating Seasonal Allergies Intolerance Sulfa (Sulfonamide * Itching Medications: acetaminophen (TYLENOL) 325 mg tabletDisp: Rfl: famotidine (PEPCID) 20 mg tabletDisp: Rfl: DELSYM 30 mg/5 mL oral liquidDisp: Rfl: MUCINEX 600 mg 12 hr tabletDisp: Rfl: HIGH POTENCY MULTIVITAMIN 400 mcgDisp: Rfl: nystatin (MYCOSTATIN) powderDisp: Rfl: Omeprazole 20 mg TbECDisp: Rfl: ondansetron (ZOFRAN) 4 mg tabletTake 4 mg by mouth every 6 hours as needed.Disp: Rfl: calcium carbonate 600 mg-cholecalciferol 400 units 600 mg-10 mcg (400 unit) tabDisp: Rfl: cholecalciferol (VITAMIN D3) 50 mcg (2,000 unit) tabletDisp: Rfl: loratadine (CLARITIN) 10 mg tabletDisp: Rfl: buPROPion XL (WELLBUTRIN XL) 300 mg 24 hr tabletTake 1 tablet by mouth once daily.Disp: 30 tabletRfl: 2 FLUoxetine (PROZAC) 20 mg capsule3 capsule dailyDisp: 90 capsuleRfl: 2 ARIPiprazole (ABILIFY) 5 mg tabletTake 1 tablet by mouth once daily.Disp: 30 tabletRfl: 2 lamoTRIgine (LAMICTAL) 25 mg tabletTake 2 tablets by mouth once daily.Disp: 180 tabletRfl: 1 paliperidone palmitate (INVEGA SUSTENNA) 39 mg/0.25 mL syrg injectionINJECT 0.25 ML into THE MUSCLE EVERY FOUR WEEKSDisp: 0.25 mLRfl: 1 fluticasone-vilanter ol (BREO ELLIPTA) 100-25 mcg/dose inhalerInhale 1 puff BY MOUTH INTO THE LUNGS EVERY DAYDisp: 28 EachRfl: 3 fluticasone (FLONASE) 50 mcg/actuation nasal sprayinstill TWO SPRAYS IN EACH nostril ONCE daily NEEDEDDisp: 16 gRfl: 3 albuterol HFA (PROVENTIL HFA, VENTOLIN HFA) 90 mcg/actuation inhalerINHALE TWO PUFFS BY MOUTH INTO THE LUNGS instructed EVERY 4 HOURS NEEDED FOR WHEEZING OR FOR SHORTNESS OF BREATHDisp: 18 gRfl: 3 lisinopril (ZESTRIL, PRINIVIL) 20 mg tabletTake 1 tablet by mouth once daily.Disp: 90 tabletRfl: 3 amLODIPine (NORVASC) 2.5 mg tabletTake 1 tablet by mouth once daily.Disp: 90 tabletRfl: 3 clonazePAM (KLONOPIN) 0.5 mg tablet1/2 tablet by mouth every day as needed for severe anxietyDisp: 30 tabletRfl: 1 FAMILY HISTORY Problem Relation Age of Onset Psychiatry Mother other (parkinson disease) Mother Uterine Cancer Mother Ischemic Heart Disease Father Thyroid Sister Colon Cancer No Family History Employer And Job Title: None on file Years Of Education Completed: Not specified Marital Status: Social History Tobacco Use Smoking status: Never Smokeless tobacco: Never Vaping Use Vaping Use: Never used Substance Use Topics Alcohol use: No Drug use: No Review of Systems: Review of Systems HENT: Positive for trouble swallowing and voice change. Respiratory: Positive for cough, choking, shortness of (more content not included)... Normal [facility] RF Esophagus Views W barium contrast Pao 05-31-2023 Limited examination due to patient condition. Narrowing of the cervical esophagus without obstruction. Mucosal irregularity and narrowing of the distal esophagus with transient hold up of the barium tablet. Endoscopy may be beneficial. Small hiatus hernia with spontaneous gastroesophageal reflux. Report Dictated on Electronically Signed By: Preet Camilo MD Electronically Signed Date/Time: 05/31/2023 3:22 PM EDT [facility] Patient Name: PILY BARNES : 1950 Exam Date/Time: 05/31/2023 14:19 Procedure: FL ESOPHAGUS BARIUM SWALLOW Ordering Provider: JONES KIMBERLY Reason For Exam: dysphagia BARIUM SWALLOW( ESOPHAGUS ) CLINICAL INDICATION:Dysphagia . Choking. Reflux. COMPARISON: None. FLUOROSCOPY DOSE: Ka,r= 183.2 mGy FINDINGS: The study is limited due to patient condition. Barium was administered in the upright as well as the horizontal position. The initial swallowing mechanism is grossly unremarkable. There has been prior anterior cervical fusion with hardware of C3-C5. There is narrowing of the cervical esophagus without obstruction to the flow of liquid barium or barium tablet. There is mucosal irregularity and narrowing of the distal esophagus. There is transient hold up of the barium tablet within the distal esophagus. The remainder of the esophagus is unremarkable. No ulcer or neoplastic lesion is seen. There is a small hiatal hernia with spontaneous gastroesophageal reflux. [facility] Preet Camilo MD - 05/31/2023 Patient Name: PILY BARNES : 1950 Exam Date/Time: 05/31/2023 14:19 Procedure: FL ESOPHAGUS BARIUM SWALLOW Ordering Provider: JONES KIMBERLY Reason For Exam: dysphagia BARIUM SWALLOW( ESOPHAGUS ) CLINICAL INDICATION:Dysphagia . Choking. Reflux. COMPARISON: None. FLUOROSCOPY DOSE: Ka,r= 183.2 mGy FINDINGS: The study is limited due to patient condition. Barium was administered in the upright as well as the horizontal position. The initial swallowing mechanism is grossly unremarkable. There has been prior anterior cervical fusion with hardware of C3-C5. There is narrowing of the cervical esophagus without obstruction to the flow of liquid barium or barium tablet. There is mucosal irregularity and narrowing of the distal esophagus. There is transient hold up of the barium tablet within the distal esophagus. The remainder of the esophagus is unremarkable. No ulcer or neoplastic lesion is seen. There is a small hiatal hernia with spontaneous gastroesophageal reflux. IMPRESSION: Limited examination due to patient condition. Narrowing of the cervical esophagus without obstruction. Mucosal irregularity and narrowing of the distal esophagus with transient hold up of the barium tablet. Endoscopy may be beneficial. Small hiatus hernia with spontaneous gastroesophageal reflux. Report Dictated on Electronically Signed By: Preet Camilo MD Electronically Signed Date/Time: 05/31/2023 3:22 PM EDT [facility] Radiology Study observation (narrative) [facility] RF Esophagus Views W barium contrast POOrdered By: Preet Camilo on 05-31-[address] [facility] Work Phone: Basic metabolic 1998 panelon 03-10-2023 Anion gap [Moles/Vol] 9 mmol/L 3 - 13 mmol/L [facility] Calcium [Mass/Vol] 9.1 mg/dL 8.4 - 10. 4 mg/dL [facility] Chloride [Moles/Vol] 109 mmol/L High 98 - 10 7 mmol/L [facility] CO2 [Moles/Vol] 23 mmol/L 22 - 30 mmol/L [facility] Creatinine [Mass/Vol] 0.86 mg/dL 0.52 - 1.04 mg/dL [facility] GFR/1.73 sq M.predicted MDRD (S/P/Bld) [Vol rate/Area] 71.9 mL/min/{1.73_m2} - PINF [facility] Comment on above: Calculation based on the Chronic Kidney Disease Epidemiology Collaboration (CKD-EPI) equation refit without adjustment for race Glucose [Mass/Vol] 93 mg/dL 70 - 100 mg/dL [facility] Interpretation and review of laboratory results Abnormal [facility] Potassium [Moles/Vol] 3.9 mmol/L 3.5 - 5.1 mmol/L [facility] Sodium [Moles/Vol] 141 mmol/L 135 - 145 mmol/L [facility] Urea nitrogen [Mass/Vol] 26 mg/dL High 7 - 17 mg/d L [facility] CBC W Auto Differential pane l (Bld)Ordered By: Cameron Zaidi on 03-10-2023 Basophils (Bld) [#/Vol] 0.0 10*3/uL 0.0 - 0.2 10*3/uL [facility] Basophils/100 WBC (Bld) 0.5 % 0.0 - 2.0 % [facility] Eosinophils (Bld) [#/Vol] 0.1 10*3/uL 0. 0 - 0.5 10*3/uL [facility] Eosinophils/100 WBC (Bld) 2.4 % 1.0 - 6.0 % [facility] Erythrocyte distribution width (RBC) [Ratio] 13.5 % 11.5 - 14.5 % [facility] Hematocrit (Bld) [Volume fraction] 41.1 % 35.0 - 47.0 % [facility] Hemoglobin (Bld) [Mass/Vol] 13.5 g/dL 11.7 - 16.0 g/dL [facility] Interpretation and review of laboratory results Abnormal [facility] th Lymphocytes (Bld) [#/Vol] 1.3 10*3/uL 1. 0 - 4.3 10*3/uL [facility] Lymphocytes/100 WBC (Bld) 21.6 % 20 .0 - 40.0 % [facility] MCH (RBC) [Entitic mass] 31.5 pg 26. 0 - 34.[address] [facility] MCHC (RBC) [Mass/Vol] 32.9 % 32.0 - 36.0 % [facility] MCV (RBC) [Entitic vol] 95.8 fL 80.0 - 98.[address] [facility] Monocytes (Bld) [#/Vol] 0.5 10*3/uL 0.0 - 0.8 10*3/uL [facility] Monocytes/100 WBC (Bld) 8.7 % 2.0 - 10.0 % [facility] Neutrophils (Bld) [#/Vol] 3.9 10*3/uL 1. 8 - 7.0 10*3/uL [facility] Neutrophils/100 WBC (Bld) 66.8 % 40 .0 - 80.0 % [facility] Nucleated RBC/100 WBC (Bld) [Ratio] 0.1 % [facility] Platelet mean volume (Bld) [Entitic vol] 7.3 fL Low 7.4 - 12.[address] [facility] Platelets (Bld) [#/Vol] 193 10*3/uL 140 - 440 10*3/uL [facility] RBC (Bld) [#/Vol] 4.29 10*6/uL 3.8 - 5.20 10*6/uL [facility] WBC (Bld) [#/Vol] 5.8 10*3/uL 3.6 - 10.7 10*3/uL [facility] [facility] - Microbiology an d Antimicrobial susceptibilityOrdered By: Roxy Odom on 03-10-2023 SARS-CoV-2 (COVID-19) Ag IA.rapid Ql (Resp) Negative Negative [facility] Comment on above: A negative result do es not rule out the possibility of SARS-CoV-2 infection. NAAT-based methods should be considered for symptomatic patients presenting greater than seven days after onset of symptoms. Method: Lateral flow immunoassay. Fact sheets for healthcare providers and patients can be found at the following sites: https://www.fda.gov/media/315236/download https://www.fda.gov/media/296455/download SARS-CoV-2 (COVID-19) Ag IA. rapid Ql (Resp)Ordered By: Roxy Odom on 03-10-2023 Interpretation and review of laboratory results Normal [facility] Basic metabolic 1998 panelon 03-09-2023 Anion gap [Moles/Vol] 6 mmol/L 3 - 13 mmol/L [facility] Calcium [Mass/Vol] 9.1 mg/dL 8.4 - 10. 4 mg/dL [facility] Chloride [Moles/Vol] 109 mmol/L High 98 - 10 7 mmol/L [facility] CO2 [Moles/Vol] 26 mmol/L 22 - 30 mmol/L [facility] Creatinine [Mass/Vol] 0.87 mg/dL 0.52 - 1.04 mg/dL [facility] GFR/1.73 sq M.predicted MDRD (S/P/Bld) [Vol rate/Area] 70.9 mL/min/{1.73_m2} - PINF [facility] Comment on above: Calculation based on the Chronic Kidney Disease Epidemiology Collaboration (CKD-EPI) equation refit without adjustment for race Glucose [Mass/Vol] 89 mg/dL 70 - 100 mg/dL [facility] Interpretation and review of laboratory results Abnormal [facility] Potassium [Moles/Vol] 4.3 mmol/L 3.5 - 5.1 mmol/L [facility] Sodium [Moles/Vol] 141 mmol/L 135 - 145 mmol/L [facility] Urea nitrogen [Mass/Vol] 24 mg/dL High 7 - 17 mg/d L [facility] CBC W Auto Differential pane l (Bld)on 03-09-2023 Basophils (Bld) [#/Vol] 0.0 10*3/uL 0.0 - 0.2 10*3/uL [facility] Basophils/100 WBC (Bld) 0.6 % 0.0 - 2.0 % [facility] Eosinophils (Bld) [#/Vol] 0.2 10*3/uL 0. 0 - 0.5 10*3/uL [facility] Eosinophils/100 WBC (Bld) 3.3 % 1.0 - 6.0 % [facility] Erythrocyte distribution width (RBC) [Ratio] 13.6 % 11.5 - 14.5 % [facility] Hematocrit (Bld) [Volume fraction] 37.8 % 35.0 - 47.0 % [facility] Hemoglobin (Bld) [Mass/Vol] 12.4 g/dL 11.7 - 16.0 g/dL [facility] Interpretation and review of laboratory results Abnormal [facility] Lymphocytes (Bld) [#/Vol] 1.0 10*3/uL 1. 0 - 4.3 10*3/uL [facility] Lymphocytes/100 WBC (Bld) 21.9 % 20 .0 - 40.0 % [facility] MCH (RBC) [Entitic mass] 31.5 pg 26. 0 - 34.[address] [facility] MCHC (RBC) [Mass/Vol] 32.9 % 32.0 - 36.0 % [facility] MCV (RBC) [Entitic vol] 96.0 fL 80.0 - 98.[address] [facility] Monocytes (Bld) [#/Vol] 0.5 10*3/uL 0.0 - 0.8 10*3/uL [facility] Monocytes/100 WBC (Bld) 10.3 % High 2.0 - 10.0 % [facility] Neutrophils (Bld) [#/Vol] 3.0 10*3/uL 1. 8 - 7.0 10*3/uL [facility] Neutrophils/100 WBC (Bld) 63.9 % 40 .0 - 80.0 % [facility] Nucleated RBC/100 WBC (Bld) [Ratio] 0.1 % [facility] Platelet mean volume (Bld) [Entitic vol] 7.8 fL 7.4 - 12.[address] [facility] Platelets (Bld) [#/Vol] 183 10*3/uL 140 - 440 10*3/uL [facility] RBC (Bld) [#/Vol] 3.94 10*6/uL 3.8 - 5.20 10*6/uL [facility] WBC (Bld) [#/Vol] 4.8 10*3/uL 3.6 - 10.7 10*3/uL [facility] Basic metabolic 1998 panelon 03-06-2023 Anion gap [Moles/Vol] 7 mmol/L 3 - 13 mmol/L [facility] Calcium [Mass/Vol] 9.0 mg/dL 8.4 - 10. 4 mg/dL [facility] Chloride [Moles/Vol] 111 mmol/L High 98 - 10 7 mmol/L [facility] CO2 [Moles/Vol] 25 mmol/L 22 - 30 mmol/L [facility] Creatinine [Mass/Vol] 0.80 mg/dL 0.52 - 1.04 mg/dL [facility] GFR/1.73 sq M.predicted MDRD (S/P/Bld) [Vol rate/Area] 78.4 mL/min/{1.73_m2} - PINF [facility] Comment on above: Calculation based on the Chronic Kidney Disease Epidemiology Collaboration (CKD-EPI) equation refit without adjustment for race Glucose [Mass/Vol] 139 mg/dL High 70 - 100 mg/dL [facility] Interpretation and review of laboratory results Abnormal [facility] Potassium [Moles/Vol] 3.6 mmol/L 3.5 - 5.1 mmol/L [facility] Sodium [Moles/Vol] 143 mmol/L 135 - 145 mmol/L [facility] Urea nitrogen [Mass/Vol] 14 mg/dL 7 - 17 mg/d L [facility] CBC W Auto Differential pane l (Bld)Ordered By: Neftali Chan on 03-06-2023 Basophils (Bld) [#/Vol] 0.0 10*3/uL 0.0 - 0.2 10*3/uL [facility] Basophils/100 WBC (Bld) 0.2 % 0.0 - 2.0 % [facility] Eosinophils (Bld) [#/Vol] 0.1 10*3/uL 0. 0 - 0.5 10*3/uL [facility] Eosinophils/100 WBC (Bld) 2.1 % 1.0 - 6.0 % [facility] Erythrocyte distribution width (RBC) [Ratio] 13.3 % 11.5 - 14.5 % [facility] Hematocrit (Bld) [Volume fraction] 39.1 % 35.0 - 47.0 % [facility] Hemoglobin (Bld) [Mass/Vol] 12.9 g/dL 11.7 - 16.0 g/dL [facility] Interpretation and review of laboratory results Abnormal [facility] Lymphocytes (Bld) [#/Vol] 0.7 10*3/uL Low 1. 0 - 4.3 10*3/uL [facility] Lymphocytes/100 WBC (Bld) 12.1 % Low 20 .0 - 40.0 % [facility] MCH (RBC) [Entitic mass] 31.2 pg 26. 0 - 34.[address] [facility] MCHC (RBC) [Mass/Vol] 33.1 % 32.0 - 36.0 % [facility] MCV (RBC) [Entitic vol] 94.2 fL 80.0 - 98.[address] [facility] Monocytes (Bld) [#/Vol] 0.3 10*3/uL 0.0 - 0.8 10*3/uL [facility] Monocytes/100 WBC (Bld) 5.0 % 2.0 - 10.0 % [facility] Neutrophils (Bld) [#/Vol] 4.5 10*3/uL 1. 8 - 7.0 10*3/uL [facility] Neutrophils/100 WBC (Bld) 80.6 % High 40 .0 - 80.0 % [facility] Nucleated RBC/100 WBC (Bld) [Ratio] 0.0 % [facility] Platelet mean volume (Bld) [Entitic vol] 7.3 fL Low 7.4 - 12.[address] [facility] Platelets (Bld) [#/Vol] 151 10*3/uL 140 - 440 10*3/uL [facility] RBC (Bld) [#/Vol] 4.15 10*6/uL 3.8 - 5.20 10*6/uL [facility] WBC (Bld) [#/Vol] 5.6 10*3/uL 3.6 - 10.7 10*3/uL [facility] Basic metabolic 1998 panelon 03-03-2023 Anion gap [Moles/Vol] 5 mmol/L 3 - 13 mmol/L [facility] Calcium [Mass/Vol] 8.7 mg/dL 8.4 - 10. 4 mg/dL [facility] Chloride [Moles/Vol] 105 mmol/L 98 - 10 7 mmol/L [facility] CO2 [Moles/Vol] 23 mmol/L 22 - 30 mmol/L [facility] Creatinine [Mass/Vol] 0.88 mg/dL 0.52 - 1.04 mg/dL [facility] GFR/1.73 sq M.predicted MDRD (S/P/Bld) [Vol rate/Area] 69.9 mL/min/{1.73_m2} - PINF [facility] Comment on above: Calculation based on the Chronic Kidney Disease Epidemiology Collaboration (CKD-EPI) equation refit without adjustment for race Glucose [Mass/Vol] 141 mg/dL High 70 - 100 mg/dL [facility] Interpretation and review of laboratory results Abnormal [facility] Potassium [Moles/Vol] 4.7 mmol/L 3.5 - 5.1 mmol/L [facility] Sodium [Moles/Vol] 132 mmol/L Low 135 - 145 mmol/L [facility] Urea nitrogen [Mass/Vol] 21 mg/dL High 7 - 17 mg/d L [facility] CBC W Auto Differential pane l (Bld)Ordered By: Mili Mulligan on 03-03-2023 Basophils (Bld) [#/Vol] 0.0 10*3/uL 0.0 - 0.2 10*3/uL [facility] Basophils/100 WBC (Bld) 0.2 % 0.0 - 2.0 % [facility] Eosinophils (Bld) [#/Vol] 0.0 10*3/uL 0. 0 - 0.5 10*3/uL [facility] Eosinophils/100 WBC (Bld) 0.0 % Low 1.0 - 6.0 % [facility] Erythrocyte distribution width (RBC) [Ratio] 13.2 % 11.5 - 14.5 % [facility] Hematocrit (Bld) [Volume fraction] 39.9 % 35.0 - 47.0 % [facility] Hemoglobin (Bld) [Mass/Vol] 13.2 g/dL 11.7 - 16.0 g/dL [facility] Interpretation and review of laboratory results Abnormal [facility] Lymphocytes (Bld) [#/Vol] 0.4 10*3/uL Low 1. 0 - 4.3 10*3/uL [facility] Lymphocytes/100 WBC (Bld) 5.5 % Low 20 .0 - 40.0 % [facility] MCH (RBC) [Entitic mass] 30.8 pg 26. 0 - 34.[address] [facility] MCHC (RBC) [Mass/Vol] 33.0 % 32.0 - 36.0 % [facility] MCV (RBC) [Entitic vol] 93.4 fL 80.0 - 98.[address] [facility] Monocytes (Bld) [#/Vol] 0.1 10*3/uL 0.0 - 0.8 10*3/uL [facility] Monocytes/100 WBC (Bld) 1.0 % Low 2.0 - 10.0 % [facility] Neutrophils (Bld) [#/Vol] 6.2 10*3/uL 1. 8 - 7.0 10*3/uL [facility] Neutrophils/100 WBC (Bld) 93.3 % High 40 .0 - 80.0 % [facility] Nucleated RBC/100 WBC (Bld) [Ratio] 0.1 % [facility] Platelet mean volume (Bld) [Entitic vol] 7.6 fL 7.4 - 12.[address] [facility] Platelets (Bld) [#/Vol] 168 10*3/uL 140 - 440 10*3/uL [facility] RBC (Bld) [#/Vol] 4.27 10*6/uL 3.8 - 5.20 10*6/uL [facility] WBC (Bld) [#/Vol] 6.7 10*3/uL 3.6 - 10.7 10*3/uL [facility] - Coagulationon 0 03-03-2023 PT Coag (Bld) [Time] 10.3 s 9.0 - 12.0 s [facility] PT Coag (Bld) [Time]on 03-03 INR Coag (PPP) [Relative time] 1.0 {INR} 0.9 - 1.[address] [facility] Comment on above: Recommended Anticoag ulant Therapy: SEE BELOW ----- INR of 2.0 - 3.0 : - Prophylaxis of Venous Thrombosis (high-risk surgery) - Treatment of Venous Thrombosis - Treatment of Pulmonary Embolism (Includes tissue heart valves, Acute Myocardial Infarction to prevent systemic embolism, Valvular Heart Disease, and Atrial Fibrillation) ----- INR of 2.5 - 3.5 : - Mechanical Prosthetic Valves (high risk) - If oral anticoagulant therapy is used to prevent Myocardial Infarction Interpretation and review of laboratory results Normal [facility] No Panel Informationon 03-02 There is no interpretation needed for this exam. IMAGING MR Cervical spine WO contras ton 10-23-2022 1. Hyperintense T2 signal abnormality is present within the lateral aspects of the cord, left greater than right, at C4 and C5 as well as mildly at C6, likely on the basis of myelomalacia. 2. Disc osteophyte complexes and ligamentum flavum infolding abut the cord with severe spinal canal narrowing at C3-C4, C4-C5 and C5-C6. 3. Otherwise, multilevel degenerative changes of the cervical spine, including severe foraminal narrowing at multiple levels. CRITICAL TEST COMMUNICATION: [place] in Triage for the on-call providers at the office of Maris Lobo NP ([facility]) was notified by telephone on 10/23/2022 at 3:30 PM. Report Dictated on Electronically Signed By: Phong Krishnan Electronically Signed Date/Time: 10/23/2022 3:30 PM [facility] [employer] Patient Name: PILY BARNES : 1950 [facility]#: [id number] Exam Date/Time: 10/21/2022 13:27 Procedure: MR CERVICAL SPINE WO CONTRAST Ordering Provider: LOBO JENNIFER Reason For Exam: hand numbness EXAM TYPE: MR CERVICAL SPINE WO CONTRAST EXAM DATE AND TIME: 10/21/2022 1:27 PM EST INDICATION: Hand numbness COMPARISON: None available. TECHNIQUE: MR imaging of the cervical spine was performed without contrast. FINDINGS: There is normal cervical lordosis. No subluxation. Vertebral body heights are maintained. Multilevel degenerative endplate changes are present throughout the cervical spine, most severely at C4-C5 and C5-C6. Multilevel disc desiccation. Mild loss of disc height at C4-C5 and C5-C6. No prevertebral soft tissue swelling. Hyperintense T2 signal abnormality is present within the lateral aspects of the cord, left greater than right, at C4 and C5 as well as mildly at C6, likely on the basis of myelomalacia. The cord is normal in size. Visualized portion of the posterior fossa is unremarkable. C2-C3: Mild disc osteophyte complex. Moderate bilateral facet hypertrophy. Right uncovertebral hypertrophy. Severe right and mild left foraminal narrowing. Ligamentum flavum infolding. Mild spinal canal narrowing. C3-C4: Moderate disc osteophyte complex. Ligament of flavum infolding abuts the dorsal cord. Severe spinal canal narrowing. Bilateral uncovertebral hypertrophy. Severe right and moderate left facet hypertrophy. Severe bilateral foraminal narrowing. C4-C5: Moderate disc osteophyte complex that abuts and flattens ventral cord. Ligamentum flavum infolding abuts the dorsal cord. Severe spinal canal narrowing. Left greater than right uncovertebral and facet hypertrophy. Severe bilateral foraminal narrowing. C5-C6: Moderate disc osteophyte complex that abuts the ventral cord. Ligamentum flavum infolding abuts the dorsal cord. Bilateral uncovertebral hypertrophy. Mild bilateral facet hypertrophy. Severe spinal canal narrowing. C6-C7: Mild disc osteophyte complex. Ligamentum flavum infolding. Bilateral uncovertebral hypertrophy. Moderate bilateral facet hypertrophy. Moderate spinal canal narrowing. C7-T1: No disc herniation. No spinal canal or foraminal narrowing. [facility] Phong Krishnan MD - 10/23/2022 [facility] 1950 [id number] Exam Date/Time: 10/21/2022 13:27 Procedure: MR CERVICAL SPINE WO CONTRAST Ordering Provider: LOBO JENNIFER Reason For Exam: hand numbness EXAM TYPE: MR CERVICAL SPINE WO CONTRAST EXAM DATE AND TIME: 10/21/2022 1:27 PM EST INDICATION: Hand numbness COMPARISON: None available. TECHNIQUE: MR imaging of the cervical spine was performed without contrast. FINDINGS: There is normal cervical lordosis. No subluxation. Vertebral body heights are maintained. Multilevel degenerative endplate changes are present throughout the cervical spine, most severely at C4-C5 and C5-C6. Multilevel disc desiccation. Mild loss of disc height at C4-C5 and C5-C6. No prevertebral soft tissue swelling. Hyperintense T2 signal abnormality is present within the lateral aspects of the cord, left greater than right, at C4 and C5 as well as mildly at C6, likely on the basis of myelomalacia. The cord is normal in size. Visualized portion of the posterior fossa is unremarkable. C2-C3: Mild disc osteophyte complex. Moderate bilateral facet hypertrophy. Right uncovertebral hypertrophy. Severe right and mild left foraminal narrowing. Ligamentum flavum infolding. Mild spinal canal narrowing. C3-C4: Moderate disc osteophyte complex. Ligament of flavum infolding abuts the dorsal cord. Severe spinal canal narrowing. Bilateral uncovertebral hypertrophy. Severe right and moderate left facet hypertrophy. Severe bilateral foraminal narrowing. C4-C5: Moderate disc osteophyte complex that abuts and flattens ventral cord. Ligamentum flavum infolding abuts the dorsal cord. Severe spinal canal narrowing. Left greater than right uncovertebral and facet hypertrophy. Severe bilateral foraminal narrowing. C5-C6: Moderate disc osteophyte complex that abuts the ventral cord. Ligamentum flavum infolding abuts the dorsal cord. Bilateral uncovertebral hypertrophy. Mild bilateral facet hypertrophy. Severe spinal canal narrowing. C6-C7: Mild disc osteophyte complex. Ligamentum flavum infolding. Bilateral uncovertebral hypertrophy. Moderate bilateral facet hypertrophy. Moderate spinal canal narrowing. C7-T1: No disc herniation. No spinal canal or foraminal narrowing. IMPRESSION: 1. Hyperintense T2 signal abnormality is present within the lateral aspects of the cord, left greater than right, at C4 and C5 as well as mildly at C6, likely on the basis of myelomalacia. 2. Disc osteophyte complexes and ligamentum flavum infolding abut the cord with severe spinal canal narrowing at C3-C4, C4-C5 and C5-C6. 3. Otherwise, multilevel degenerative changes of the cervical spine, including severe foraminal narrowing at multiple levels. CRITICAL TEST COMMUNICATION: [facility] in Triage for the on-call providers at the office of Maris Lobo NP ([facility]) was notified by telephone on 10/23/2022 at 3:30 PM. Report Dictated on Electronically Signed By: Phong Krishnan Electronically Signed Date/Time: 10/23/2022 3:30 PM EST [facility] MR Cervical spine WO contras tOrdered By: Phong Krishnan on 10-23-[address] [facility] Work Phone: MR Cervical spine WO contras ton 10-21-2022 Radiology Study observation (narrative) [facility] alth CT BRAIN WO IVCONon 11-06-[address] BRAIN WO IVCON Final Report DATE OF EXAM: Nov 05 2020 6:06PM [facility] 0504 - CT BRAIN WO IVCON / PROCEDURE REASON: Head trauma, headache Physician Interpretation CT HEAD, FACIAL BONES AND CERVICAL SPINE CLINICAL HISTORY: Head trauma, headache (accession [id number]), Facial trauma, fx suspected (accession [id number]), C-spine fx, traumatic (accession [id number]) FALL TECHNIQUE: Routine axial images from skull base through vertex and thin axial images through the facial bones including the mandible. Routine thin axial imaging of the cervical spine completed without contrast. Reformatted coronal images of facial bones and sagittal and coronal images of the cervical spine are reviewed. CT Dose-Length Product (DLP): [address] Dose Reduction Employed: Iterative reconstruction. COMPARISON: 06/23/[address], 06/07/2020 CTA of neck RESULT: Head: No acute intracranial hemorrhage, air or mass effect. Mild brain senescent changes. No focal brain pathology. No evidence of hydrocephalus or extra axial hematoma. Bony structures are unremarkable with no evidence of fracture. Facial bones: The visible facial bones are negative for acute fracture. Bony duval of the orbits are intact. No air, fluid collections or inflammatory changes noted within the orbital cavities. Optic nerves and extraocular muscles are unremarkable. Visible portions of the mandible, including the temporal mandibular joints, are negative. Limited images through the skull base are also negative. Paranasal sinuses: Minimal fluid in the left maxillary sinus. Cervical spine: Counting reference: Craniocervical junction. Alignment: Alignment is anatomic. Craniocervical junction: Craniocervical junction is normal. Bone: Included bony structures are intact without fracture or destructive changes. Degenerative change: Moderate degenerative changes at multiple mid through lower cervical spine disc levels. Spinal canal: Secondary mild central spinal canal stenosis at C4-5 and C5-6 levels. Cervical soft tissues: Redemonstration of masslike soft tissue lesion with scattered coarse calcifications in the left neck which appears to be arising from the left thyroid lobe. This mass measures up to 7 cm in diameter which is similar to 06/07/2020 CT images. Secondary displacement of the adjacent tracheal airway. Other: Included upper thoracic structures are unremarkable. COMBINED IMPRESSION: 1. Head CT: No acute intracranial abnormality or calvarial fracture. 2. CT of Facial bones: No CT evidence of facial bone fracture. Minimal fluid in the left maxillary sinus. No CT evidence of a sinus wall fracture. 3. CT of Cervical spine: No acute fracture or malalignment. Redemonstration of large soft tissue mass arising from the left lobe of thyroid with secondary deviation of the tracheal airway. [employer] Winder Automatic: AISHA Transcribe Date/Time: Nov 05 2020 6:38P Dictated by : ARMANDO PARK MD This examination was interpreted and the report reviewed and electronically signed by: ARMANDO PARK MD on Nov 05 2020 6:45PM EST Normal [facility] CT CERVICAL SPINE WO IVCONon 11-05-2020 CT CERVICAL SPINE WO IVCON Final Report DATE OF EXAM: Nov 05 2020 6:06PM [facility] 0505 - CT CERVICAL SPINE WO IVCON / PROCEDURE REASON: C-spine fx, traumatic Physician Interpretation CT HEAD, FACIAL BONES AND CERVICAL SPINE CLINICAL HISTORY: Head trauma, headache (accession [id number]), Facial trauma, fx suspected (accession [id number]), C-spine fx, traumatic (accession [id number]) FALL TECHNIQUE: Routine axial images from skull base through vertex and thin axial images through the facial bones including the mandible. Routine thin axial imaging of the cervical spine completed without contrast. Reformatted coronal images of facial bones and sagittal and coronal images of the cervical spine are reviewed. CT Dose-Length Product (DLP): [address] Dose Reduction Employed: Iterative reconstruction. COMPARISON: 06/23/[address], 06/07/2020 CTA of neck RESULT: Head: No acute intracranial hemorrhage, air or mass effect. Mild brain senescent changes. No focal brain pathology. No evidence of hydrocephalus or extra axial hematoma. Bony structures are unremarkable with no evidence of fracture. Facial bones: The visible facial bones are negative for acute fracture. Bony duval of the orbits are intact. No air, fluid collections or inflammatory changes noted within the orbital cavities. Optic nerves and extraocular muscles are unremarkable. Visible portions of the mandible, including the temporal mandibular joints, are negative. Limited images through the skull base are also negative. Paranasal sinuses: Minimal fluid in the left maxillary sinus. Cervical spine: Counting reference: Craniocervical junction. Alignment: Alignment is anatomic. Craniocervical junction: Craniocervical junction is normal. Bone: Included bony structures are intact without fracture or destructive changes. Degenerative change: Moderate degenerative changes at multiple mid through lower cervical spine disc levels. Spinal canal: Secondary mild central spinal canal stenosis at C4-5 and C5-6 levels. Cervical soft tissues: Redemonstration of masslike soft tissue lesion with scattered coarse calcifications in the left neck which appears to be arising from the left thyroid lobe. This mass measures up to 7 cm in diameter which is similar to 06/07/2020 CT images. Secondary displacement of the adjacent tracheal airway. Other: Included upper thoracic structures are unremarkable. COMBINED IMPRESSION: 1. Head CT: No acute intracranial abnormality or calvarial fracture. 2. CT of Facial bones: No CT evidence of facial bone fracture. Minimal fluid in the left maxillary sinus. No CT evidence of a sinus wall fracture. 3. CT of Cervical spine: No acute fracture or malalignment. Redemonstration of large soft tissue mass arising from the left lobe of thyroid with secondary deviation of the tracheal airway. Thread Winder Automatic: AISHA Transcribe Date/Time: Nov 05 2020 6:38P Dictated by : ARMANDO PARK MD This examination was interpreted and the report reviewed and electronically signed by: ARMANDO PARK MD on Nov 05 2020 6:45PM EST Normal [facility] CT FACIAL BONE/MANDA WO IVCON on 11-05-2020 CT FACIAL BONE/MANDA WO IVCON Final Report DATE OF EXAM: Nov 05 2020 6:06PM [facility] 0507 - CT FACIAL BONE/MANDA WO IVCON / PROCEDURE REASON: Facial trauma, fx suspected Physician Interpretation CT HEAD, FACIAL BONES AND CERVICAL SPINE CLINICAL HISTORY: Head trauma, headache (accession [id number]), Facial trauma, fx suspected (accession [id number]), C-spine fx, traumatic (accession [id number]) FALL TECHNIQUE: Routine axial images from skull base through vertex and thin axial images through the facial bones including the mandible. Routine thin axial imaging of the cervical spine completed without contrast. Reformatted coronal images of facial bones and sagittal and coronal images of the cervical spine are reviewed. CT Dose-Length Product (DLP): [address] Dose Reduction Employed: Iterative reconstruction. COMPARISON: 06/23/[address], 06/07/2020 CTA of neck RESULT: Head: No acute intracranial hemorrhage, air or mass effect. Mild brain senescent changes. No focal brain pathology. No evidence of hydrocephalus or extra axial hematoma. Bony structures are unremarkable with no evidence of fracture. Facial bones: The visible facial bones are negative for acute fracture. Bony duval of the orbits are intact. No air, fluid collections or inflammatory changes noted within the orbital cavities. Optic nerves and extraocular muscles are unremarkable. Visible portions of the mandible, including the temporal mandibular joints, are negative. Limited images through the skull base are also negative. Paranasal sinuses: Minimal fluid in the left maxillary sinus. Cervical spine: Counting reference: Craniocervical junction. Alignment: Alignment is anatomic. Craniocervical junction: Craniocervical junction is normal. Bone: Included bony structures are intact without fracture or destructive changes. Degenerative change: Moderate degenerative changes at multiple mid through lower cervical spine disc levels. Spinal canal: Secondary mild central spinal canal stenosis at C4-5 and C5-6 levels. Cervical soft tissues: Redemonstration of masslike soft tissue lesion with scattered coarse calcifications in the left neck which appears to be arising from the left thyroid lobe. This mass measures up to 7 cm in diameter which is similar to 06/07/2020 CT images. Secondary displacement of the adjacent tracheal airway. Other: Included upper thoracic structures are unremarkable. COMBINED IMPRESSION: 1. Head CT: No acute intracranial abnormality or calvarial fracture. 2. CT of Facial bones: No CT evidence of facial bone fracture. Minimal fluid in the left maxillary sinus. No CT evidence of a sinus wall fracture. 3. CT of Cervical spine: No acute fracture or malalignment. Redemonstration of large soft tissue mass arising from the left lobe of thyroid with secondary deviation of the tracheal airway. Thread Winder Automatic: PSCB Transcribe Date/Time: Nov 05 2020 6:38P Dictated by : ARMANDO PARK MD This examination was interpreted and the report reviewed and electronically signed by: ARMANDO PARK MD on Nov 05 2020 6:45PM EST Normal [facility] CT LUMBAR SPINE WO IVCONon 0 11-05-2020 CT LUMBAR SPINE WO IVCON Final Report DATE OF EXAM: Nov 05 2020 6:12PM [facility] 0508 - CT LUMBAR SPINE WO IVCON / PROCEDURE REASON: L/S-spine fx, traumatic Physician Interpretation EXAMS: CT OF THORACIC AND LUMBAR SPINE CLINICAL HISTORY: L/S-spine fx, traumatic (accession [id number]), T-spine fx, traumatic (accession [id number]) FALL TODAY TECHNIQUE: Spiral high resolution helical scanning from the cervicothoracic junction through the sacrum. Reformatted thin axial, sagittal and coronal images are reviewed. Dose-Length Product (DLP): [address] Dose Reduction Employed: Automatic exposure control. COMPARISON: None. RESULT: Limitations: None. Counting reference: Lumbosacral junction. For the purposes of this report, L5-S1 is considered the last lumbar type disc space and L4-5 is considered the level of the iliac crest. Alignment: L4-5 mild grade 1 spondylolisthesis very likely secondary to the moderate posterior facet joint arthritic changes. Thoracic spinal alignment is normal. Bone: No acute or chronic fracture of the thoracic and lumbar spine. The partially included ribs, sacrum and iliac bones are negative for fracture. Paraspinal soft tissues: Large heterogeneous solid mass with calcifications arising from the left lobe of thyroid and extending inferiorly consistent with a substernal goiter. Secondary displacement of the tracheal airway. Mediastinum negative for hematoma or pericardial fluid. Visible lung restrepo are clear. Intervertebral discs: Moderate degenerative changes at multiple lumbar spine disc levels. Facet joint arthrosis also noted at multiple lower lumbar spine levels. Canal and foramina: The bony canal and foramina are patent. Production Control Manager (topogram) images: No additional findings. IMPRESSION: No acute fracture or malalignment of the thoracic and lumbar spine. Other included bony structures also negative for acute fracture. 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 Thread Winder Automatic: PSCChristina Transcribe Date/Time: Nov 05 2020 6:45P Dictated by : ARMANDO PARK MD This examination was interpreted and the report reviewed and electronically signed by: ARMANDO PARK MD on Nov 05 2020 6:54PM EST Normal [facility] CT THORACIC SPINE WO IVCONon 11-05-2020 CT THORACIC SPINE WO IVCON Final Report DATE OF EXAM: Nov 05 2020 6:12PM [facility] 0514 - CT THORACIC SPINE WO IVCON / PROCEDURE REASON: T-spine fx, traumatic Physician Interpretation EXAMS: CT OF THORACIC AND LUMBAR SPINE CLINICAL HISTORY: L/S-spine fx, traumatic (accession [id number]), T-spine fx, traumatic (accession [id number]) FALL TODAY TECHNIQUE: Spiral high resolution helical scanning from the cervicothoracic junction through the sacrum. Reformatted thin axial, sagittal and coronal images are reviewed. Dose-Length Product (DLP): [address] Dose Reduction Employed: Automatic exposure control. COMPARISON: None. RESULT: Limitations: None. Counting reference: Lumbosacral junction. For the purposes of this report, L5-S1 is considered the last lumbar type disc space and L4-5 is considered the level of the iliac crest. Alignment: L4-5 mild grade 1 spondylolisthesis very likely secondary to the moderate posterior facet joint arthritic changes. Thoracic spinal alignment is normal. Bone: No acute or chronic fracture of the thoracic and lumbar spine. The partially included ribs, sacrum and iliac bones are negative for fracture. Paraspinal soft tissues: Large heterogeneous solid mass with calcifications arising from the left lobe of thyroid and extending inferiorly consistent with a substernal goiter. Secondary displacement of the tracheal airway. Mediastinum negative for hematoma or pericardial fluid. Visible lung restrepo are clear. Intervertebral discs: Moderate degenerative changes at multiple lumbar spine disc levels. Facet joint arthrosis also noted at multiple lower lumbar spine levels. Canal and foramina: The bony canal and foramina are patent. Production Control Manager (topogram) images: No additional findings. IMPRESSION: No acute fracture or malalignment of the thoracic and lumbar spine. Other included bony structures also negative for acute fracture. 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 Thread Winder Automatic: AISHA Transcribe Date/Time: Nov 05 2020 6:45P Dictated by : ARMANDO PARK MD This examination was interpreted and the report reviewed and electronically signed by: ARMANDO PARK MD on Nov 05 2020 6:54PM EST Normal [facility] XR CERVICAL 4V AP/LAT/FLX/EX Ton 11-05-2020 XR CERVICAL 4V AP/LAT/FLX/EXT Final Report DATE OF EXAM: Nov 05 2020 8:54PM [id number] [id number] - XR CERVICAL 4V AP/LAT/FLX/EXT / PROCEDURE REASON: Neck pain, initial exam Physician Interpretation CERVICAL SPINE CLINICAL INDICATION: Neck pain COMPARISON: CT cervical spine 11/05/2020 FINDINGS: Lateral, frontal, lateral flexion and lateral extension views of the cervical spine. Lower cervical spine and cervicothoracic junction are obscured on the lateral views due to the overlying shoulders. Visualized alignment is anatomic. No evidence of instability on flexion or extension. Degenerative disc disease at C3-4 through C5-6 noted with disc height loss and endplate spurring. Spinous processes are intact. Prevertebral soft tissues are normal. Degenerative facet arthrosis at multiple levels. No evidence of fracture in the cervical spine. IMPRESSION: No evidence of fracture or subluxation. No evidence of cervical spinal instability on flexion or extension. Cervical spondylosis as described. Thread Winder Automatic: [facility] Transcribe Date/Time: Nov 05 2020 9:17P Dictated by : CARMEL KRAUS MD This examination was interpreted and the report reviewed and electronically signed by: CARMEL KRAUS MD on Nov 05 2020 9:19PM EST Normal [facility] XR CHEST 1V FRONTALon 2020 XR CHEST 1V FRONTAL Final Report DATE OF EXAM: Nov 05 2020 4:41PM [id number] [id number] - XR CHEST 1V FRONTAL / PROCEDURE REASON: Chest pain Physician Interpretation EXAM 1: PORTABLE CHEST X-RAY CLINICAL HISTORY: Fracture, hand (accession [id number]), Hip trauma, fx suspected, initial exam (accession [id number]), Chest pain (accession [id number]) TECHNIQUE: AP upright COMPARISON: 06/06/2020 chest RESULT: Lines/tubes/devices: None visualized. Heart/mediastinum: Within normal limits. Lungs/pleura: Clear. Bones/soft tissues: Unremarkable. EXAM 2: PORTABLE PELVIS X-RAY HISTORY: Hip trauma TECHNIQUE: Portable AP supine view. COMPARISON: None available. RESULT: Bilateral hip and sacroiliac joints are maintained. No acute fracture or malalignment. EXAM 3: LEFT HAND X-RAY SERIES CLINICAL HISTORY: Fracture, hand TECHNIQUE: PA, lateral and oblique views. COMPARISON: None available. RESULT: No fracture or malalignment. Moderate degenerative changes of the first carpometacarpal and MCP joints. COMBINED IMPRESSION: 1. Chest: No acute findings. 2. Pelvis: No acute fracture or malalignment. 3. Left hand: No acute fracture or malalignment. Thread Winder Automatic: PSCB Transcribe Date/Time: Nov 05 2020 4:46P Dictated by : ARMANDO PARK MD This examination was interpreted and the report reviewed and electronically signed by: ARMANDO PARK MD on Nov 05 2020 5:11PM EST Normal [facility] XR HAND 3V PA/LAT/OBL LTon 0 11-05-2020 XR HAND 3V PA/LAT/OBL LT Final Report DATE OF EXAM: Nov 05 2020 4:41PM [facility] 5345 - XR HAND 3V PA/LAT/OBL LT / PROCEDURE REASON: Fracture, hand Physician Interpretation EXAM 1: PORTABLE CHEST X-RAY CLINICAL HISTORY: Fracture, hand (accession [id number]), Hip trauma, fx suspected, initial exam (accession [id number]), Chest pain (accession [id number]) TECHNIQUE: AP upright COMPARISON: 06/06/2020 chest RESULT: Lines/tubes/devices: None visualized. Heart/mediastinum: Within normal limits. Lungs/pleura: Clear. Bones/soft tissues: Unremarkable. EXAM 2: PORTABLE PELVIS X-RAY HISTORY: Hip trauma TECHNIQUE: Portable AP supine view. COMPARISON: None available. RESULT: Bilateral hip and sacroiliac joints are maintained. No acute fracture or malalignment. EXAM 3: LEFT HAND X-RAY SERIES CLINICAL HISTORY: Fracture, hand TECHNIQUE: PA, lateral and oblique views. COMPARISON: None available. RESULT: No fracture or malalignment. Moderate degenerative changes of the first carpometacarpal and MCP joints. COMBINED IMPRESSION: 1. Chest: No acute findings. 2. Pelvis: No acute fracture or malalignment. 3. Left hand: No acute fracture or malalignment. Thread Winder Automatic: [facility] Transcribe Date/Time: Nov 05 2020 4:46P Dictated by : ARMANDO PARK MD This examination was interpreted and the report reviewed and electronically signed by: ARMANDO PARK MD on Nov 05 2020 5:11PM EST Normal [facility] XR HAND 3V PA/LAT/OBL RTon 0 11-05-2020 XR HAND 3V PA/LAT/OBL RT Final Report DATE OF EXAM: Nov 05 2020 4:41PM [facility] 5346 - XR HAND 3V PA/LAT/OBL RT / PROCEDURE REASON: Fracture, hand Physician Interpretation LEFT HAND CLINICAL INDICATION: Patient sustained a fall injuring left index finger. COMPARISON: None. FINDINGS: Frontal, oblique and lateral views of the left hand. Bones are of diffusely decreased density. Osteoarthritis is severe at the first carpal metacarpal and thumb MCP joints. The thumb MCP joint is hyperextended. Osteoarthritis of multiple interphalangeal joints with joint space narrowing and spurring. No fracture or dislocation. No bone erosions. No periosteal reaction. Soft tissues are unremarkable. IMPRESSION: 1. No acute fracture or dislocation. 2. Osteoarthritis most severe at the first carpometacarpal and thumb MCP joints. Hyperextension of the thumb MCP joint. Thread Winder Automatic: [facility] Transcribe Date/Time: Nov 05 2020 4:47P Dictated by : CARMEL KRAUS MD This examination was interpreted and the report reviewed and electronically signed by: CARMEL KRAUS MD on Nov 05 2020 4:49PM EST Normal [facility] XR PELVIS 1V APon 11-05-2020 XR PELVIS 1V AP Final Report DATE OF EXAM: Nov 05 2020 4:41PM [facility] 5239 - XR PELVIS 1V AP / PROCEDURE REASON: Hip trauma, fx suspected, initial exam Physician Interpretation EXAM 1: PORTABLE CHEST X-RAY CLINICAL HISTORY: Fracture, hand (accession [id number]), Hip trauma, fx suspected, initial exam (accession [id number]), Chest pain (accession [id number]) TECHNIQUE: AP upright COMPARISON: 06/06/2020 chest RESULT: Lines/tubes/devices: None visualized. Heart/mediastinum: Within normal limits. Lungs/pleura: Clear. Bones/soft tissues: Unremarkable. EXAM 2: PORTABLE PELVIS X-RAY HISTORY: Hip trauma TECHNIQUE: Portable AP supine view. COMPARISON: None available. RESULT: Bilateral hip and sacroiliac joints are maintained. No acute fracture or malalignment. EXAM 3: LEFT HAND X-RAY SERIES CLINICAL HISTORY: Fracture, hand TECHNIQUE: PA, lateral and oblique views. COMPARISON: None available. RESULT: No fracture or malalignment. Moderate degenerative changes of the first carpometacarpal and MCP joints. COMBINED IMPRESSION: 1. Chest: No acute findings. 2. Pelvis: No acute fracture or malalignment. 3. Left hand: No acute fracture or malalignment. Thread Winder Automatic: AISHA Transcribe Date/Time: Nov 05 2020 4:46P Dictated by : ARMANDO PARK MD This examination was interpreted and the report reviewed and electronically signed by: ARMANDO PARK MD on Nov 05 2020 5:11PM EST Normal [facility] XR THORACIC 3V AP/LAT/SWIMME RSon 11-05-2020 XR THORACIC 3V AP/LAT/SWIMMERS Final Report DATE OF EXAM: Nov 05 2020 9:37PM [facility] [id number] - XR THORACIC 3V AP/LAT/SWIMMERS / PROCEDURE REASON: Mid-back/T-spine pain, initial exam Physician Interpretation EXAM: XR THORACIC 3V AP/LAT/SWIMMERS HISTORY: Mid-back/T-spine pain, initial exam COMPARISON: 11/05/2020 FINDINGS: See impression IMPRESSION: Swimmer's view in flexion and extension submitted. Much of the cervical and included thoracic spine is obscured by superimposed tissue. No obvious listhesis in the upper cervical spine at the C2 or C3 level on these views. Thread Winder Automatic: AISHA Transcribe Date/Time: Nov 05 2020 9:41P Dictated by : CLAUDIA HAY MD This examination was interpreted and the report reviewed and electronically signed by: CLAUDIA HAY MD on Nov 05 2020 9:43PM EST Normal [facility] Otheron 07-28-2020 [facility] US BIOPSY CERVICAL LYMPH NOD [place] 07-28-2020 US BIOPSY CERVICAL LYMPH NODE Final Report DATE OF EXAM: Jul 28 2020 8:59AM [facility] 2 - US BIOPSY CERVICAL LYMPH NODE / PROCEDURE REASON: nodules Physician Interpretation EXAM: ULTRASOUND-GUIDED FINE NEEDLE ASPIRATION BIOPSY OF RIGHT THYROID NODULE AND LEFT SUPRACLAVICULAR LYMPH NODE Date:07/28/2020 Comparison:Thyroid ultrasound of 06/08/2020 Clinical Indication/History: The patient is a 69-year-old female with history of bilateral thyroid nodules. The patient previously underwent biopsy of a left thyroid nodule. The patient presents today for biopsy of a right thyroid nodule as well as a left supraclavicular lymph node. Findings: Informed consent was obtained from the patient. The patient was placed in the supine position. The areas of interest were localized with ultrasound. The skin was marked. A timeout was performed. The patient was prepped and draped in a sterile manner. Beginning on the left, local anesthesia was affected with 2% Xylocaine. Utilizing real-time ultrasound guidance 5 passes with a 21-gauge Sonopsy needle were performed. Position of the tip of the needle within the left supraclavicular lymph node was confirmed with ultrasound and an image saved in the PACS. The clay transporter stated that adequate tissue was obtained for analysis. Specimens were submitted for cytology as well as possible flow cytometry. Moving on to the right, local anesthesia was affected with 2% Xylocaine. Utilizing real-time ultrasound guidance 4 passes with a 21-gauge Sonopsy needle were performed. Position of the tip of the needle within the nodule in the right lobe of thyroid gland was confirmed with ultrasound and an image saved in the PACS. The clay transporter stated that adequate tissue was obtained for analysis. Specimens were submitted for cytology as well as possible Vercyte analysis. The patient tolerated the procedure well. No immediate complications were noted. The patient was discharged from the department in stable condition.. Impression: 1. Technically successful ultrasound guided fine needle aspiration biopsy of right thyroid nodule. 2. Technically successful ultrasound-guided fine-needle aspiration biopsy of left supraclavicular lymph node. Thread Winder Automatic: AISHA Transcribe Date/Time: Jul 28 2020 5:37P Dictated by : ROMULO THOMAS MD This examination was interpreted and the report reviewed and electronically signed by: ROMULO THOMAS MD on Jul 28 2020 5:42PM EST Normal [facility] US FNA W GUIDANCEon 07-28-20 US FNA W GUIDANCE Final Report DATE OF EXAM: Jul 28 2020 8:59AM [facility] [id number] - US FNA W GUIDANCE / PROCEDURE REASON: nodules Physician Interpretation EXAM: ULTRASOUND-GUIDED FINE NEEDLE ASPIRATION BIOPSY OF RIGHT THYROID NODULE AND LEFT SUPRACLAVICULAR LYMPH NODE Date:07/28/2020 Comparison:Thyroid ultrasound of 06/08/2020 Clinical Indication/History: The patient is a 69-year-old female with history of bilateral thyroid nodules. The patient previously underwent biopsy of a left thyroid nodule. The patient presents today for biopsy of a right thyroid nodule as well as a left supraclavicular lymph node. Findings: Informed consent was obtained from the patient. The patient was placed in the supine position. The areas of interest were localized with ultrasound. The skin was marked. A timeout was performed. The patient was prepped and draped in a sterile manner. Beginning on the left, local anesthesia was affected with 2% Xylocaine. Utilizing real-time ultrasound guidance 5 passes with a 21-gauge Sonopsy needle were performed. Position of the tip of the needle within the left supraclavicular lymph node was confirmed with ultrasound and an image saved in the PACS. The clay transporter stated that adequate tissue was obtained for analysis. Specimens were submitted for cytology as well as possible flow cytometry. Moving on to the right, local anesthesia was affected with 2% Xylocaine. Utilizing real-time ultrasound guidance 4 passes with a 21-gauge Sonopsy needle were performed. Position of the tip of the needle within the nodule in the right lobe of thyroid gland was confirmed with ultrasound and an image saved in the PACS. The clay transporter stated that adequate tissue was obtained for analysis. Specimens were submitted for cytology as well as possible Vercyte analysis. The patient tolerated the procedure well. No immediate complications were noted. The patient was discharged from the department in stable condition.. Impression: 1. Technically successful ultrasound guided fine needle aspiration biopsy of right thyroid nodule. 2. Technically successful ultrasound-guided fine-needle aspiration biopsy of left supraclavicular lymph node. Thread Winder Automatic: AISHA Transcribe Date/Time: Jul 28 2020 5:37P Dictated by : ROMULO THOMAS MD This examination was interpreted and the report reviewed and electronically signed by: ROMULO THOMAS MD on Jul 28 2020 5:42PM EST Normal [facility] Otheron 06-23-2020 [facility] Otheron 04-01-2020 [facility] Vital Signs Date Time Vital Sign Value Performing Clinician Facility 05-23-2025 09:55-0400 Body height 152.4 cm [facility] Work Phone: [facility] [place] 05-23-2025 09:55-0400 Body mass index (BMI) [Ratio] 32.22 kg/m2 [place] [employer] Work Phone: [employer] [place] 05-23-2025 09:55-0400 Body weight 74.84 kg [facility] Work Phone: [facility] 04-23-2025 08:41-0400 Diastolic blood pressure 61 mm[Hg] IOCOM Boone DO Work Phone: [facility] 04-23-2025 08:41-0400 Heart rate 76 /min Innotasel DO Work Phone: [facility] 04-23-2025 08:41-0400 SaO2% (BldA) [Mass fraction] 94 % IOCOM Boone DO Work Phone: [facility] 04-23-2025 08:41-0400 Systolic blood pressure 110 mm[Hg] IOCOM Boone DO Work Phone: [facility] 04-23-2025 07:37-0400 Body temperature 97.59 [degF] IOCOM Boone DO Work Phone: [facility] 04-23-2025 07:37-0400 Respiratory rate 16 /min Innotasel DO Work Phone: [employer] 04-19-2025 20:31-0400 Body height 152.4 cm Innotasel DO Work Phone: [employer] 04-19-2025 20:31-0400 Body mass index (BMI) [Ratio] 32.22 kg/m2 Innotasel DO Work Phone: [facility] 04-19-2025 20:31-0400 Body weight 74.84 kg Javon Boone DO Work Phone: [facility] 09-16-2024 14:19-0500 Body height 152.4 cm Michell Mathis MD Work Phone: [facility] 09-16-2024 14:19-0500 Body mass index (BMI) [Ratio] 30.33 kg/m2 Michell Mathis MD Work Phone: [facility] 09-16-2024 14:19-0500 Body temperature 98.4 [degF] Michell Mathis MD Work Phone: [facility] 09-16-2024 14:19-0500 Body weight 70.44 kg Michell Mathis MD Work Phone: [facility] 09-16-2024 14:19-0500 Diastolic blood pressure 79 mm[Hg] Michell Mathis MD Work Phone: [facility] 09-16-2024 14:19-0500 Heart rate 56 /min Michell Mathis MD Work Phone: [facility] 09-16-2024 14:19-0500 SaO2% (BldA) [Mass fraction] 95 % Michell Mathis MD Work Phone: [facility] 09-16-2024 14:19-0500 Systolic blood pressure 121 mm[Hg] Michell Mathis MD Work Phone: [facility] 03-21-2024 07:57-0400 Diastolic blood pressure 90 mm[Hg] Jorge Zelaya MD Work Phone: [facility] 03-21-2024 07:57-0400 Systolic blood pressure 144 mm[Hg] Jorge Zelaya MD Work Phone: [facility] 03-21-2024 07:43-0400 Body height 152.4 cm Jorge Zelaya MD Work Phone: [facility] 03-21-2024 07:43-0400 Body mass index (BMI) [Ratio] 31.25 kg/m2 Jorge Zelaya MD Work Phone: [facility] 03-21-2024 07:43-0400 Body weight 72.58 kg Jorge Zelaya MD Work Phone: [facility] 03-21-2024 07:43-0400 Heart rate 62 /min Jorge Zelaya MD Work Phone: [facility] 03-21-2024 07:43-0400 SaO2% (BldA) [Mass fraction] 95 % Jorge Zelaya MD Work Phone: [facility] 03-04-2024 14:46-0400 Body height 152.4 cm Arely Hercules PA-C Work Phone: [facility] 03-04-2024 14:46-0400 Body mass index (BMI) [Ratio] 29.29 kg/m2 Arely Hercules PA-C Work Phone: [facility] 03-04-2024 14:46-0400 Body weight 68.04 kg Arely Hercules PA-C Work Phone: [facility] Comment on above: Unable to get due to wheelchair 03-04-2024 14:46-0400 Diastolic blood pressure 74 mm[Hg] Arely Hercules PA-C Work Phone: [facility] 03-04-2024 14:46-0400 Heart rate 82 /min Arely Hercules PA-C Work Phone: [facility] 03-04-2024 14:46-0400 Systolic blood pressure 128 mm[Hg] Arely Hercules PA-C Work Phone: [facility] 12-17-2023 15:49-0400 Diastolic blood pressure 83 mm[Hg] Albert Voll DO Work Phone: [facility] 12-17-2023 15:49-0400 Heart rate 76 /min Albert Voll DO Work Phone: [facility] 04-14-2024 15:49-0400 Respiratory rate 21 /min Albert Voll DO Work Phone: [facility] 12-17-2023 15:49-0400 Systolic blood pressure 144 mm[Hg] Albert Voll DO Work Phone: [facility] 12-17-2023 12:57-0400 Body height 152.4 cm Albert Voll DO Work Phone: [facility] 12-17-2023 12:57-0400 Body mass index (BMI) [Ratio] 31.25 kg/m2 Albert Voll DO Work Phone: [facility] 12-17-2023 12:57-0400 Body weight 72.58 kg Albert Voll DO Work Phone: [facility] 12-17-2023 12:55-0400 Body temperature 98.49 [degF] Albert Voll DO Work Phone: [facility] 12-17-2023 12:55-0400 SaO2% (BldA) [Mass fraction] 98 % Albert Voll DO Work Phone: [facility] 12-16-2023 19:20-0400 Body height 152.4 cm Artur Boone MD Work Phone: [facility] 12-16-2023 19:20-0400 Body mass index (BMI) [Ratio] 31.25 kg/m2 Artur Boone MD Work Phone: [facility] 12-16-2023 19:20-0400 Body weight 72.58 kg Artru Boone MD Work Phone: [facility] 12-16-2023 19:20-0400 Diastolic blood pressure 83 mm[Hg] Artur Boone MD Work Phone: [facility] 12-16-2023 19:20-0400 Heart rate 77 /min Artur Boone MD Work Phone: [facility] 12-16-2023 19:20-0400 Respiratory rate 16 /min Artur Boone MD Work Phone: [facility] 12-16-2023 19:20-0400 SaO2% (BldA) [Mass fraction] 97 % Artur Boone MD Work Phone: [facility] 12-16-2023 19:20-0400 Systolic blood pressure 139 mm[Hg] Artur Boone MD Work Phone: [facility] 12-16-2023 14:52-0400 Body temperature 97.7 [degF] Artur Boone MD Work Phone: [facility] 11-14-2023 09:28-0400 Diastolic blood pressure 83 mm[Hg] Aurelio Roy MD Work Phone: [facility] 11-14-2023 09:28-0400 Heart rate 75 /min Aurelio Roy MD Work Phone: [facility] 11-14-2023 09:28-0400 Respiratory rate 18 /min Aurelio Roy MD Work Phone: [facility] 11-14-2023 09:28-0400 SaO2% (BldA) [Mass fraction] 95 % Aurelio Roy MD Work Phone: [facility] 11-14-2023 09:28-0400 Systolic blood pressure 129 mm[Hg] Aurelio Roy MD Work Phone: [facility] 11-14-2023 09:13-0400 Body temperature 98.8 [degF] Aurelio Roy MD Work Phone: [facility] 07-05-2023 13:49-0400 Diastolic blood pressure 93 mm[Hg] Alonso Mcgill MD Work Phone: [facility] 07-05-2023 13:49-0400 Heart rate 66 /min Alonso Mcgill MD Work Phone: [facility] 07-05-2023 13:49-0400 Systolic blood pressure 146 mm[Hg] Alonso Mcgill MD Work Phone: [facility] 07-05-2023 13:39-0400 Body height 152.4 cm Alonso Mcgill MD Work Phone: [employer] 07-05-2023 13:39-0400 Body mass index (BMI) [Ratio] 31.83 kg/m2 Alonso Mcgill MD Work Phone: [employer] [place] 07-05-2023 13:39-0400 Body temperature 97.59 [degF] Alonso Mcgill MD Work Phone: [employer] [place] 07-05-2023 13:39-0400 Body weight 73.94 kg Alonso Mcgill MD Work Phone: [employer] [place] 05-25-2023 22:42-0400 Body temperature 98.91 [degF] Humberto Nesheim DO Work Phone: [facility] 05-25-2023 22:42-0400 Diastolic blood pressure 111 mm[Hg] Humberto Nesheim DO Work Phone: [facility] 05-25-2023 22:42-0400 Heart rate 67 /min Humberto Nesheim DO Work Phone: [employer] 05-25-2023 22:42-0400 Respiratory rate 16 /min Humberto Nesheim DO Work Phone: [facility] 05-25-2023 22:42-0400 SaO2% (BldA) [Mass fraction] 93 % Humberto Nesheim DO Work Phone: [employer] [place] 05-25-2023 22:42-0400 Systolic blood pressure 163 mm[Hg] Humberto Nesheim DO Work Phone: [facility] 03-10-2023 07:53-0400 Body temperature 98.91 [degF] Alonso Mcgill MD Work Phone: [employer] [place] 03-10-2023 07:53-0400 Diastolic blood pressure 87 mm[Hg] Alonso Mcgill MD Work Phone: [employer] [place] 03-10-2023 07:53-0400 Heart rate 71 /min Alonso Mcgill MD Work Phone: [facility] 03-10-2023 07:53-0400 Respiratory rate 18 /min Alonso Mcgill MD Work Phone: [facility] 03-10-2023 07:53-0400 SaO2% (BldA) [Mass fraction] 92 % Alonso Mcgill MD Work Phone: [facility] 03-10-2023 07:53-0400 Systolic blood pressure 146 mm[Hg] Alonso Mcgill MD Work Phone: [facility] 03-02-2023 09:05-0400 Body height 152.4 cm Alonso Mcgill MD Work Phone: [facility] 03-02-2023 09:05-0400 Body mass index (BMI) [Ratio] 31.25 kg/m2 Alonso Mcgill MD Work Phone: [facility] 03-02-2023 09:05-0400 Body weight 72.58 kg Alonso Mcgill MD Work Phone: [facility] 12-07-2022 14:50-0400 Body height 152.4 cm Alonso Mcgill MD Work Phone: [facility] 12-07-2022 14:50-0400 Body mass index (BMI) [Ratio] 30.08 kg/m2 Alonso Mcgill MD Work Phone: [facility] 12-07-2022 14:50-0400 Body temperature 97.59 [degF] Alonso Mcgill MD Work Phone: [facility] 12-07-2022 14:50-0400 Body weight 69.85 kg Alonso Mcgill MD Work Phone: [facility] 12-07-2022 14:50-0400 Diastolic blood pressure 89 mm[Hg] Alonso Mcgill MD Work Phone: [facility] 12-07-2022 14:50-0400 Heart rate 85 /min Alonso Mcgill MD Work Phone: [facility] 12-07-2022 14:50-0400 Systolic blood pressure 133 mm[Hg] Alonso Mcgill MD Work Phone: [facility] 11-11-2022 13:39-0500 Body height 165.1 cm Anthony Mars MD Work Phone: [facility] 11-11-2022 13:39-0500 Body mass index (BMI) [Ratio] 26.43 kg/m2 Anthony Mars MD Work Phone: [facility] 11-11-2022 13:39-0500 Body temperature 97.9 [degF] Anthony Mars MD Work Phone: [facility] 11-11-2022 13:39-0500 Body weight 72.03 kg Anthony Mars MD Work Phone: [facility] 11-11-2022 13:39-0500 Diastolic blood pressure 90 mm[Hg] Anthony Mars MD Work Phone: [facility] 11-11-2022 13:39-0500 Heart rate 92 /min Anthony Mars MD Work Phone: [facility] 11-11-2022 13:39-0500 Systolic blood pressure 143 mm[Hg] Anthony Mars MD Work Phone: [facility] 02-24-2022 16:14-0400 Body height 152.4 cm Anthony Ramirez MD Work Phone: [facility] 02-24-2022 16:14-0400 Body weight 66.27 kg Anthony Ramirez MD Work Phone: [facility] 02-24-2022 16:14-0400 Diastolic blood pressure 83 mm[Hg] Anthony Ramirez MD Work Phone: [facility] 02-24-2022 16:14-0400 Heart rate 89 /min Anthony Ramirez MD Work Phone: [facility] 02-24-2022 16:14-0400 Systolic blood pressure 126 mm[Hg] Anthony Ramirez MD Work Phone: [facility] 01-28-2022 16:07-0400 Body temperature 98.6 [degF] Danny Laura MD Work Phone: [facility] 01-28-2022 16:07-0400 Body weight 68.22 kg Danny Laura MD Work Phone: [facility] 01-28-2022 16:07-0400 Diastolic blood pressure 86 mm[Hg] Danny Laura MD Work Phone: [facility] 01-28-2022 16:07-0400 Heart rate 78 /min Danny Laura MD Work Phone: [facility] 01-28-2022 16:07-0400 Respiratory rate 19 /min Danny Laura MD Work Phone: [facility] 01-28-2022 16:07-0400 SaO2% (BldA) [Mass fraction] 94 % Danny Laura MD Work Phone: [facility] 01-28-2022 16:07-0400 Systolic blood pressure 121 mm[Hg] Danny Laura MD Work Phone: [facility] 11-22-2021 16:25-0400 Body height 152.4 cm Kenia Laura PA-C Work Phone: [facility] 11-22-2021 16:25-0400 Body weight 68.49 kg Kenia Laura PA-C Work Phone: [facility] 11-22-2021 16:25-0400 Diastolic blood pressure 92 mm[Hg] Kenia Laura PA-C Work Phone: [facility] 11-22-2021 16:25-0400 Heart rate 74 /min Kenia Laura PA-C Work Phone: [facility] 11-22-2021 16:25-0400 Respiratory rate 16 /min Kenia Laura PA-C Work Phone: [facility] 11-22-2021 16:25-0400 SaO2% (BldA) [Mass fraction] 94 % Kenia Laura PA-C Work Phone: [facility] 11-22-2021 16:25-0400 Systolic blood pressure 141 mm[Hg] Kenia Laura PA-C Work Phone: [facility] 06-23-2020 10:17-0400 Body Temperature 97.9 [degF] Tatiana Mitchella [facility] 06-23-2020 10:17-0400 Body weight 70.31 kg Tatiana Paulaa [facility] 06-23-2020 10:17-0400 BP Diastolic 89 mm[Hg] [facility]iana Krtanishaa [facility] 06-23-2020 10:17-0400 BP Systolic 141 mm[Hg] [facility] Mitchella [facility] 06-23-2020 10:17-0400 Height 154.9 cm Tatiana Krtanishaa [facility] 06-23-2020 10:17-0400 Pulse (Heart Rate) 81 /min [facility]iana [facility]che[facility] 06-23-2020 10:17-0400 Pulse Oximetry 94 % [facility] 06-23-2020 10:17-0400 Respiratory Rate 16 /min Tatiana Mitche[facility] Encounters Encounter Date Encounter Type Care Provider Facility Start: 06-19-2025 ambulatory Raffy Sandovali lity:[facility] Start: 05-23-2025 End: 05-23-2025 Postop follow up visit related to original px [facility] WATER SYSTEMS DESIGNER - HEAD USHER Work Phone: [facility] - [place] Comment on above: Closed displaced int ertrochanteric fracture of right femur, initial encounter (HCC) (Primary Dx) Start: 05-23-2025 End: 05-23-2025 ambulatory [facility] Start: 05-07-2025 ambulatory Raffy Sandovali lity:[facility] Start: 05-07-2025 Registered Referred Raffy DELATORRE Start: 04-30-2025 End: 04-30-2025 ambulatory Raffy Gregorio [facility] Start: 04-30-2025 End: 04-30-2025 Departed Referred Raffy DELATORRE Start: 04-30-2025 End: 04-30-2025 ambulatory Raffy HDZ Facility:[facility] Start: 04-19-2025 End: 04-23-2025 Evaluation and management of inpatient Javon Hogan Boone Work Phone: [facility] Medical Surgical Unit MSU 1E Comment on above: Closed nondisplaced intertrochanteric fracture of right femur, initial encounter (HCC) (Primary Dx); Closed displaced intertrochanteric fracture of right femur, initial encounter (HCC); Osteoporosis, unspecified osteoporosis type, unspecified pathological fracture presence Start: 12-03-2024 End: 01-03-2025 ambulatory Ashu Ricci APRN.HEAD USHER Work Phone: [facility] Start: 12-03-2024 End: 01-03-2025 Patient encounter procedure Ashu Ricci APRN.HEAD USHER Work Phone: [facility] Start: 09-16-2024 End: 09-16-2024 Office outpatient visit 25 minutes Michell Mathis MD Work Phone: Cardiothoracic Comment on above: Aneurysm of ascendin g aorta without rupture (HCC); Disorder of artery or arteriole (HCC) Start: 09-16-2024 End: 09-16-2024 Subsequent hospital visit by physician Ct 2 Main Qb (I-Stat) Radiology Comment on above: Aneurysm of ascendin g aorta without rupture (HCC) [I71.21] Start: 09-16-2024 End: 09-16-2024 ambulatory MICHELL MATHIS Facility:[facility] Start: 07-31-2024 End: 07-31-2024 ambulatory Bobbi MOTT Assistant Center Director Start: 07-31-2024 End: 07-31-2024 Home visit Bobbi MOTT Assistant Center Director Comment on above: Population Health Na vigation Outreach ([facility] Attributed Member - Chart Review ) Start: 04-03-2024 Telephone encounter Michell fraser MD Work Phone: Cardiothoracic Comment on above: Follow Up Start: 03-21-2024 Encounter for preprocedural cardiovascular examination JORGE ZELAYA [facility] Start: 03-21-2024 End: 03-21-2024 ambulatory ASHU RICCI Facility:[facility] Start: 03-21-2024 End: 03-21-2024 Office outpatient new 30 minutes Michell Mathis MD Work Phone: Cardiothoracic Comment on above: Aneurysm of ascendin g aorta without rupture (HCC); Diverticulitis; Primary hypertension; Disorder of artery or arteriole (HCC) Start: 03-21-2024 End: 03-21-2024 Subsequent hospital visit by physician Ct 2 Main Qb (I-Stat) Radiology Comment on above: Aneurysm of ascendin g aorta without rupture (HCC) [I71.21] Start: 03-21-2024 End: 03-21-2024 Patient encounter procedure Jorge Zelaya MD Work Phone: Cardiology Comment on above: Dilatation of thorac ic aorta (HCC) (Primary Dx); Preop cardiovascular exam; Primary hypertension; Coronary artery calcification; Dyslipidemia; Chronic kidney disease, unspecified CKD stage; Aneurysm of ascending aorta without rupture (HCC); Diverticulitis; Disorder of artery or arteriole (HCC); Dyspnea, unspecified type Start: 03-21-2024 End: 03-21-2024 Patient encounter status Jorge Zelaya MD Work Phone: [facility] Start: 03-21-2024 End: 03-21-2024 ambulatory MICHELL MATHIS Facility:[facility] Start: 03-04-2024 End: 03-04-2024 ambulatory ARELY HERCULES Facility:[facility] Start: 03-04-2024 End: 03-04-2024 Patient encounter procedure Arely Hercules PA-C Work Phone: [facility] [place] Comment on above: Esophageal stenosis (Primary Dx); Diverticulitis Start: 02-21-2024 Telephone encounter Michell fraser MD Work Phone: Cardiothoracic Comment on above: Insurance Authorizat ion Referral Information ; New Patient Evaluation Start: 02-19-2024 Telephone encounter Cardiac Hernandez rgeon - Unspecified NOC Comment on above: Appointment Start: 12-17-2023 End: 12-17-2023 Emergency department patient visit Albert Lara DO Work Phone: [facility] ED Comment on above: Diverticulitis (Prim dmitriy Dx); Rectal bleeding; Aneurysm of ascending aorta without rupture (HCC) Start: 12-17-2023 End: 12-17-2023 Subsequent hospital visit by physician [facility] Non-Invasive Cardiology Comment on above: Arrived Start: 12-16-2023 End: 12-16-2023 Emergency department patient visit Artur Boone MD Work Phone: [facility] ED Comment on above: Nausea vomiting and diarrhea (Primary Dx); Acute kidney injury (HCC) Start: 11-16-2023 Orders Only Arely JOSÉC Work Phone: [facility] [place] Comment on above: Esophageal stenosis (Primary Dx); Adenomatous polyp of duodenum Results Start: 11-14-2023 Preprocedural examin ation done Aurelio Roy MD Work Phone: [facility] Work Phone: Start: 11-14-2023 End: 11-14-2023 Subsequent hospital visit by physician Aurelio Roy MD Work Phone: [facility] Comment on above: Dysphagia, unspecifi ed type [R13.10] Start: 10-03-2023 End: 10-03-2023 ambulatory ARELY FARFANON Facility:[facility] Start: 07-05-2023 End: 07-05-2023 Postop follow up visit related to original px Alonso Mcgill MD Work Phone: [facility] Comment on above: Cervical myelopathy (HCC) (Primary Dx) Start: 06-30-2023 End: 06-30-2023 Subsequent hospital visit by physician Calrton Hsu PA-C Work Phone: [facility] Radiology Comment on above: Cervical myelopathy (HCC) Start: 05-31-2023 End: 05-31-2023 Subsequent hospital visit by physician Thea Jones Work Phone: [facility] Comment on above: Dysphagia Start: 05-25-2023 End: 05-25-2023 Emergency department patient visit Humberto Ghosh DO Work Phone: [facility] ED Comment on above: Left arm cellulitis (Primary Dx) Start: 05-12-2023 Telephone encounter Joy Smith DB Garzon [facility] Start: 05-10-2023 Transcribe Orders Provider Not In System Work Phone: [facility] Central Scheduling Comment on above: Dysphagia (Primary D x) Start: 03-02-2023 End: 03-10-2023 Evaluation and management of inpatient Alonso Mcgill MD Work Phone: [facility] H6 TELEMETRY Comment on above: Cervical stenosis of spinal canal (Primary Dx) Start: 02-02-2023 Telephone encounter Mili soliz MA [facility] Start: 01-16-2023 Telephone encounter Cee Biggs WATER SYSTEMS DESIGNER - HEAD USHER Work Phone: [facility] Start: 01-12-2023 End: 01-12-2023 Subsequent hospital visit by physician Cee Biggs WATER SYSTEMS DESIGNER - HEAD USHER Work Phone: [facility] CT Imaging Comment on above: 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) Start: 12-07-2022 End: 12-07-2022 Office outpatient new 45 minutes Alonso Mcgill MD Work Phone: [facility] Comment on above: Cervical myelopathy (HCC) (Primary Dx); 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) Start: 11-11-2022 End: 11-11-2022 Office outpatient new 30 minutes Anthony Mars MD Work Phone: [facility] Comment on above: 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) (HCC) (Primary Dx); Parkinsonism, unspecified Parkinsonism type (HCC) Start: 10-21-2022 End: 10-21-2022 Subsequent hospital visit by physician Kenia Mckenzie MD Work Phone: [facility] MRI Comment on above: Hand numbness; Dizziness Start: 10-11-2022 Transcribe Orders Maris Lobo APRN - [facility] Central Scheduling Comment on above: Hand numbness (Prima ry Dx); Dizziness Start: 08-12-2022 End: 08-15-2022 [facility] Danny De La Cruz APRN.HEAD USHER Work Phone: [facility] Behavioral Medicine Comment on above: Bipolar 1 disorder ( HCC) (Primary Dx); Generalized anxiety disorder; Bipolar 1 disorder, depressed, moderate (HCC) Start: 07-01-2022 Telephone encounter Danny De La Cruz APRN.HEAD USHER Work Phone: [facility] Behavioral Medicine Comment on above: Psychiatric Problem Start: 05-26-2022 ambulatory Cee Gonzalez Assistant Center Director Comment on above: Population Health Na vigation Outreach ([facility]- Needs PCP Verified) Start: 04-05-2022 End: 04-07-2022 [facility] Danny De La Cruz APRN.CNP Work Phone: [facility] Medicine Comment on above: Bipolar 1 disorder ( HCC) (Primary Dx); Generalized anxiety disorder; Bipolar 1 disorder, depressed, moderate (HCC) Start: 03-28-2022 Telephone encounter Danny De La Cruz APRN.CNP Work Phone: [facility] Behavioral Medicine Comment on above: Scheduling Start: 03-21-2022 Telephone encounter Danny De La Cruz APRN.CNP Work Phone: [facility] Behavioral Medicine Comment on above: Patient Update Start: 03-18-2022 Patient Outreach Soco hogan RN Work Phone: Assistant Center Director Comment on above: Transition Of Care ( SNF Update) Transition Of Care ( Josselyn Mcdonald 03/03-03/17/22 Transerred to [facility] [place]) Start: 03-17-2022 Refill Danny farnsworth MD Work Phone: [facility] Geriatrics Comment on above: Refill Request Start: 03-11-2022 Patient Outreach Soco hogan RN Work Phone: Assistant Center Director Comment on above: Transition Of Care ( SNF Update) Start: 03-10-2022 Refill Danny farnsworth MD Work Phone: [facility] Comment on above: Refill Request Start: 02-28-2022 Refill Danny De La Cruz APRN.HEAD USHER Work Phone: [facility] Behavioral Medicine Comment on above: Refill Request Start: 02-24-2022 End: 02-24-2022 Patient encounter procedure Anthony Ramirez MD Work Phone: [facility] Endocrinology Comment on above: Multiple thyroid nod ules (Primary Dx); S/P partial thyroidectomy Start: 02-22-2022 End: 02-22-2022 ambulatory Danny Laura MD Work Phone: [facility] Comment on above: OPENED IN ERROR (Luly chandni Dx) Start: 02-22-2022 End: 02-22-2022 Telemedicine consultation with patient Danny Laura MD Work Phone: [facility] Start: 02-21-2022 End: 02-21-2022 ambulatory Danny Laura MD Work Phone: [facility] Comment on above: OPENED IN ERROR (Luly chandni Dx) Start: 02-21-2022 End: 02-21-2022 Telemedicine consultation with patient Danny Laura MD Work Phone: [facility] Start: 02-16-2022 Telephone encounter Danny Laura MD Work Phone: [facility] Comment on above: Forms Start: 02-15-2022 End: 02-15-2022 Patient encounter procedure Danny De La Cruz APRN.HEAD USHER Work Phone: [facility] Comment on above: Bipolar 1 disorder, depressed, moderate (HCC) (Primary Dx); Generalized anxiety disorder Start: 02-10-2022 Refill Danny farnsworth MD Work Phone: [facility] Comment on above: Refill Request Start: 02-09-2022 Telephone encounter Danny De La Cruz APRN.HEAD USHER Work Phone: [facility] Comment on above: Patient Update Start: 02-07-2022 Refill Danny De La Cruz APRN.HEAD USHER Work Phone: [facility] Comment on above: Refill Request Start: 02-02-2022 Telephone encounter Danny Laura MD Work Phone: [facility] Comment on above: Patient Update Start: 01-28-2022 End: 01-28-2022 Patient encounter procedure Danny Laura MD Work Phone: [facility] Comment on above: Falls frequently (Pr imary Dx) Start: 01-26-2022 Patient encounter procedure [facility] Provider [facility] Department Start: 01-24-2022 Refill Danny De L aCruz APRN.HEAD USHER Work Phone: [facility] Comment on above: Refill Request Start: 01-17-2022 Refill Danny De La Cruz APRN.HEAD USHER Work Phone: [facility] Comment on above: Refill Request Start: 01-14-2022 Refill Danny De La Cruz APRN.HEAD USHER Work Phone: [facility] Comment on above: Refill Request Start: 01-10-2022 Refill Danny De La Cruz APRN.HEAD USHER Work Phone: [facility] Comment on above: Refill Request Start: 01-06-2022 End: 01-07-2022 [facility] Danny Campfiordaliza De La Cruz WATER SYSTEMS DESIGNER.HEAD USHER Work Phone: [facility] Comment on above: 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); Generalized anxiety disorder Start: 01-03-2022 Refill Danny Campfiordaliza De La Cruz WATER SYSTEMS DESIGNER.HEAD USHER Work Phone: [facility] Comment on above: Refill Request Start: 12-27-2021 Refill Danny Campfiordaliza De La Cruz WATER SYSTEMS DESIGNER.HEAD USHER Work Phone: [facility] Comment on above: Refill Request Start: 12-09-2021 End: 12-09-2021 [facility] Danny Campfiordaliza De La Cruz WATER SYSTEMS DESIGNER.HEAD USHER Work Phone: [facility] Comment on above: Bipolar 1 disorder ( HCC) (Primary Dx); Generalized anxiety disorder Start: 12-02-2021 Refill Danny farnsworth MD Work Phone: [facility] Geriatrics Comment on above: Refill Request (Breo ) Start: 11-29-2021 Telephone encounter Kenia tenorio PA-C Work Phone: [facility] [place] Comment on above: Medication Problem ( RX Clarification) Start: 11-23-2021 End: 11-23-2021 Subsequent hospital visit by physician [place] [facility] Comment on above: screening Start: 11-22-2021 End: 11-22-2021 Patient encounter procedure Kenia Laura PA-C Work Phone: [facility] [place] Comment on above: Frequent falls (Prim dmitriy Dx); Moderate persistent asthma without complication; Stage 3 chronic kidney disease, unspecified whether stage 3a or 3b CKD (HCC); Limited mobility Start: 11-17-2021 Telephone encounter Anthony mock MD Work Phone: [facility] Endocrinology Comment on above: Question from lab (V eracyte testing) Start: 07-27-2021 Telephone encounter Danny Laura MD Work Phone: [facility] [place] Comment on above: Results Start: 08-11-2020 End: 08-11-2020 Refill Danny Siddiqui (Oyster Grower.Retail Sales Merchandiser) Jono Work Phone: [facility] Behavioral Medicine Comment on above: Refill Request Start: 08-04-2020 End: 08-04-2020 Refill Danny Siddiqui (Oyster Grower.Retail Sales Merchandiser) Jono Work Phone: [facility] Medicine Comment on above: Refill Request Results Start: 07-28-2020 End: 07-28-2020 Subsequent hospital visit by physician Romulo Thomas Work Phone: [facility] INTERVENTIONAL RADIOLOGY Comment on above: Thyroid mass [E07.9] Start: 07-13-2020 End: 07-13-2020 Orders Only Efren Soria Work Phone: [facility] Comment on above: Thyroid mass (Primar y Dx) Results Start: 07-01-2020 End: 07-01-2020 Telephone encounter Danny Siddiqui (Oyster Grower.Retail Sales Merchandiser) Jono Work Phone: [facility] Medicine Comment on above: Veneer Sample Maker - O ther Start: 06-23-2020 End: 06-23-2020 Evaluation and management of inpatient Tatiana Alvarez Work Phone: [facility] Comment on above: 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, subsequent encounter (Primary Dx) Start: 06-23-2020 End: 06-23-2020 Subsequent hospital visit by physician [facility] [place] [facility]IO CT SCAN [place] TESTS SUPERINTENDENT Comment on above: Intracranial hemorrh age (HCC) [I62.9] Start: 06-07-2020 End: 06-07-2020 Orders Only Cheryl Zabala (Pa) Work Phone: [place] [facility] Comment on above: Intracranial hemorrh age (HCC) Start: 05-22-2020 End: 05-22-2020 Psych-Refill Danny Chen (Oyster Grower.Retail Sales Merchandiser) Jono Work Phone: [facility] Comment on above: Refill Request Start: 05-19-2020 Psych-Refill Danny Siddiqui (Oyster Grower.Retail Sales Merchandiser) Jono Work Phone: [facility] Comment on above: Refill Request Start: 05-19-2020 End: 05-19-2020 Refill Danny Chen (Oyster Grower.Retail Sales Merchandiser) Jono Work Phone: [facility] Start: 04-30-2020 End: 04-30-2020 Patient encounter procedure Danny Campne (Oyster Grower.Retail Sales Merchandiser) Jono Work Phone: [facility] Comment on above: Bipolar 1 disorder, depressed, moderate (HCC) (Primary Dx); Generalized anxiety disorder Start: 04-01-2020 End: 04-01-2020 Subsequent hospital visit by physician [facility] CARDIAC TESTING Comment on above: syncope Procedures Date Procedure Procedure Detail Performing Clinician Start: 04-23-2025 Comprehensive metabolic panel Latoya Fallon MD Work Phone: Start: 04-22-2025 Glucose quantitative blood xcpt reagent strip Rolando Beverly MD Work Phone: Start: 04-22-2025 Basic metabolic panel calcium total Latoya Polanco MD Work Phone: Start: 04-22-2025 Manual Differential panel - Blood Pablito Polanco MD Work Phone: Start: 04-21-2025 Radiologic examination pelvis 1/2 views Sherry Enriquez PA-C Work Phone: Start: 04-21-2025 FL GUIDANCE OR USE ONLY - NON-RESULTABLE Rolando Beverly MD Work Phone: Start: 04-21-2025 End: 04-21-2025 Tx inter/pr/subtrchntric fem fx imed impltscrew Rolando Beverly MD Work Phone: Start: 04-21-2025 Basic metabolic panel calcium total Latoya Polanco MD Work Phone: Start: 04-19-2025 Radiologic exam chest single view Ruben Rocha MD Work Phone: Start: 04-19-2025 End: 04-19-2025 Radiologic examination femur minimum 2 views Helen Alejandro MD Work Phone: Start: 04-19-2025 Antibody screen STACY DRAKE Comment on above: Performed By: #### [id number] ####Medical Di susi: MIGDALIA JOHNSON ([id number])[facility] BLOOD [facility] ([facility])[address] Start: 04-19-2025 Basic metabolic panel calcium total Javon R Boone DO Work Phone: Start: 04-19-2025 Blood typing serologic abo Javon R Boone DO Work Phone: Start: 04-19-2025 Ecg routine ecg w/least 12 lds trcg only w/o i&r Javon R Boone DO Work Phone: Start: 04-19-2025 Ct thorax w/o contrast material Mayco Bhakta MD Work Phone: Start: 04-19-2025 End: 04-19-2025 Ct cervical spine w/o contrast material Mayco Bhakta MD Work Phone: Start: 04-19-2025 Ct head/brain w/o contrast material Mayco Bhakta MD Work Phone: Start: 09-16-2024 Ct angiography chest w/contrast/noncontrast Michell Mathis MD Work Phone: Start: 09-16-2024 Creatinine [Mass/volume] in Serum or Plasma [facility] Provider Start: 03-21-2024 Lipid 1996 panel - Serum or Plasma Michell Mathis MD Work Phone: Start: 12-17-2023 Ct abdomen & pelvis w/o contrast material Albert Voll DO Work Phone: Start: 12-17-2023 Urinalysis complete panel - Urine Dulce Lara DO Work Phone: Start: 12-17-2023 Urnls dip stick/tablet reagent auto microscopy Albert Voll DO Work Phone: Start: 12-17-2023 Blood typing serologic abo Albert Voll DO Work Phone: Start: 12-17-2023 Comprehensive metabolic panel Albert Neff ll DO Work Phone: Start: 12-17-2023 Ecg routine ecg w/least 12 lds trcg only w/o i&r Jorge Portillo WATER SYSTEMS DESIGNER - [facility] Work Phone: Start: 12-16-2023 Urinalysis complete panel - Urine Jorge Portillo WATER SYSTEMS DESIGNER - [facility] Work Phone: Start: 12-16-2023 Urnls dip stick/tablet reagent auto microscopy oJrge Portillo WATER SYSTEMS DESIGNER - [facility] Work Phone: Start: 12-16-2023 SARS-COV-2, FLU A/B, AND RSV COMBO Jorge Portillo WATER SYSTEMS DESIGNER - [facility] Work Phone: Start: 12-16-2023 Comprehensive metabolic panel Jorge mondragon WATER SYSTEMS DESIGNER - [facility] Work Phone: Start: 11-14-2023 Esophagogastroduodenoscopy transoral diagnostic Arely Hercules PA-C Work Phone: Start: 05-31-2023 Radiologic exam esophagus single contrast study Thea Jones Work Phone: Start: 03-10-2023 SARS-CoV-2 (COVID-19) Ag [Presence] in Respiratory specimen by Rapid immunoassay Carlton Hsu PA-C Work Phone: Start: 03-10-2023 Basic metabolic panel calcium total Trinidad Ghobryal Work Phone: Start: 03-09-2023 Basic metabolic panel calcium total Trinidad Ghobryal Work Phone: Start: 03-06-2023 Basic metabolic panel calcium total Trinidad Ghobryal Work Phone: Start: 03-03-2023 Basic metabolic panel calcium total Cee Biggs WATER SYSTEMS DESIGNER - HEAD USHER Work Phone: Start: 03-02-2023 FL GUIDANCE OR USE ONLY - NON-RESULTABLE Alonso Mcgill MD Work Phone: Start: 03-02-2023 End: 03-02-2023 Arthrd ant interbody decompress cervical belw c2 Alonso Mcgill MD Work Phone: Start: 11-23-2021 Us soft tissue head & neck real time imge mignonm Anthony Ramirez MD Work Phone: Start: 07-28-2020 Bx/exc lymph node needle superficial Efren Darvin Soria Work Phone: Start: 07-28-2020 Fine needle aspiration bx w/us gdn 1st lesion Efren Darvin Soria Work Phone: Start: 06-23-2020 Ct head/brain w/o contrast material Cheryl Zabala (Pa) Work Phone: Start: 06-06-2020 H/O: hysterectomy Status post hysterectomy Us [place] Start: 04-01-2020 Echo tthrc r-t 2d w/wom-mode compl spec&colr d Kenia Mckenzie Work Phone: Start: 08-06-2019 Lipid 1996 panel - Serum or Plasma Aurelio Roy MD Work Phone: Start: 10-02-2018 Mammography Echo [place] Plan of Treatment Date Care Activity Detail Author Start: 03-21-2029 Lipid panel [facility] Start: 03-21-2027 Diabetes Screening Diabetes Screening [facility] Start: 12-16-2026 Diabetes Screening Diabetes Screening [facility] Start: 03-10-2026 Diabetes Screening Diabetes Screening [facility] Start: 11-20-2025 Depression Monitoring Depression Monitoring [facility] Start: 09-16-2025 BP Controlled (<130/80) BP Controlled (<130/80) [facility] inic Start: 07-04-2025 End: 05-23-2026 XR Hip - right 3 Views XR hip right 2 or 3 views Imaging Routine Closed displaced intertrochanteric fracture of right femur, initial encounter (HCC) Expected: 07/04/2025, Expires: 05/23/2026 [facility] Work Phone: Comment on above: Expected: 07/04/2025, Expires: Start: 06-19-2025 Registered Referred Registered Referred -[facility] Start: 05-05-2025 COVID-19 Vaccine () COVID-19 Vaccine () [facility] Start: 05-05-2025 Influenza vaccination Influenza Vaccine (#1) [facility] Start: 03-21-2025 End: 06-20-2025 CBC panel - Blood by Automated count COMPLETE BLOOD COUNT Lab Routine Dilatation of thoracic aorta (HCC) Preop cardiovascular exam Primary hypertension Coronary artery calcification Dyslipidemia Chronic kidney disease, unspecified CKD stage Aneurysm of ascending aorta without rupture (HCC) Diverticulitis Disorder of artery or arteriole (HCC) Dyspnea, unspecified type Expected: 03/21/2025, Expires: 06/20/2025 [facility] Comment on above: Expected: 03/21/2025, Expires: Start: 03-21-2025 End: 06-20-2025 Comprehensive metabolic 2000 panel - Serum or Plasma COMPREHENSIVE METABOLIC PANEL Lab Routine Dilatation of thoracic aorta (HCC) Preop cardiovascular exam Primary hypertension Coronary artery calcification Dyslipidemia Chronic kidney disease, unspecified CKD stage Aneurysm of ascending aorta without rupture (HCC) Diverticulitis Disorder of artery or arteriole (HCC) Dyspnea, unspecified type Expected: 03/21/2025, Expires: 06/20/2025 [facility] Comment on above: Expected: 03/21/2025, Expires: Start: 03-21-2025 Creatinine measurement Serum Creatinine [facility] Start: 03-21-2025 Hepatitis B surface antibody level LDL Cholesterol [facility] Start: 03-21-2025 End: 06-20-2025 Lipid 1996 panel - Serum or Plasma LIPID PANEL BASIC Lab Routine Dilatation of thoracic aorta (HCC) Preop cardiovascular exam Primary hypertension Coronary artery calcification Dyslipidemia Chronic kidney disease, unspecified CKD stage Aneurysm of ascending aorta without rupture (HCC) Diverticulitis Disorder of artery or arteriole (HCC) Dyspnea, unspecified type Expected: 03/21/2025, Expires: 06/20/2025 [facility] Comment on above: Expected: 03/21/2025, Expires: Start: 03-21-2025 End: 06-20-2025 Natriuretic peptide.B prohormone N-Terminal [Mass/volume] in Serum or Plasma NT PRO BNP Lab Routine Dilatation of thoracic aorta (HCC) Preop cardiovascular exam Primary hypertension Coronary artery calcification Dyslipidemia Chronic kidney disease, unspecified CKD stage Aneurysm of ascending aorta without rupture (HCC) Diverticulitis Disorder of artery or arteriole (HCC) Dyspnea, unspecified type Expected: 03/21/2025, Expires: 06/20/2025 [facility] Comment on above: Expected: 03/21/2025, Expires: Start: 03-04-2025 BP Controlled (<130/80) BP Controlled (<130/80) [facility] Start: 03-01-2025 DIABETES SCREEN DIABETES SCREEN [facility] Start: 02-28-2025 Diabetes mellitus screening Diabetes Screening [facility] Start: 02-28-2025 DIABETES SCREEN DIABETES SCREEN [facility] Start: 12-16-2024 Complete blood count Hemoglobin/Hematocrit [facility] Start: 12-16-2024 Creatinine measurement Serum Creatinine [facility] Start: 11-15-2024 DIABETES SCREEN DIABETES SCREEN [facility] Start: 09-16-2024 End: 09-16-2024 Patient encounter procedure Radiology Comment on above: Aneurysm of ascending aorta without rupt ure (HCC) [I71.21] 6 month follow up Start: 09-04-2024 Advance Directive Discussion Advance Directive Discussion [facility] Start: 09-04-2024 Medicare Advantage Annual Wellness Visit Medicare Advantage Annual Wellness Visit [facility] Start: 08-06-2024 Lipid panel Lipid Screening [facility] Start: 08-06-2024 LIPID SCREEN LIPID SCREEN [facility] Start: 05-05-2024 COVID-19 Vaccine () COVID-19 Vaccine () [facility] Start: 05-05-2024 Covid-19 Vaccine ( season) Covid-19 Vaccine () [facility] Start: 05-05-2024 Influenza vaccination [facility] Start: 03-21-2024 End: 03-21-2024 Patient encounter procedure 03/21/2024 10:30 AM EDT Office Visit Cardiothoracic [address] [phone] Michell Mathis MD [address] [place] [address] [I71.21][K57.92][I10][I7 7.9] Cardiothoracic Comment on above: [I71.21][K57.92][I10][I77.9] Start: 03-21-2024 End: 03-21-2024 Patient encounter procedure Cardiology Comment on above: Aneurysm of ascending aorta without rupt ure (HCC) [I71.21] Start: 03-21-2024 End: 03-21-2024 [facility] J1-4 [facility] javy Garcia Comment on above: [I71.21][K57.92][I10][I77.9] Start: 03-10-2024 Creatinine measurement Serum Creatinine [facility] Start: 03-04-2024 End: 03-04-2024 Patient encounter procedure 03/04/2024 2:40 PM EDT Office Visit Gastroenter[facility] [address] [place] [address] Arely Herclues PA-C [address] [place] [address] dysphagia [facility] Comment on above: dysphagia Start: 02-23-2024 End: 05-24-2024 CREATININE BLD CREATININE BLD Lab Routine Aneurysm of ascending aorta without rupture (HCC) Diverticulitis Primary hypertension Disorder of artery or arteriole (HCC) Expected: 02/23/2024, Expires: 05/24/2024 [facility] Comment on above: Expected: 02/23/2024, Expires: Start: 09-04-2023 Advance Directive Discussion Advance Directive Discussion [facility] Start: 09-04-2023 Medicare Advantage Annual Wellness Visit Medicare Advantage Annual Wellness Visit [facility] Start: 07-05-2023 End: 07-05-2023 Patient encounter procedure 07/05/2023 1:30 PM EDT Office Visit [address] [phone] Alonso Mcgill MD [address] [place] [phone] [facility] Start: 06-19-2023 End: 06-19-2023 Patient encounter procedure 06/19/2023 9:30 AM EDT Office Visit [address] [phone] Alonso Mcgill MD [address] [place] [phone] [facility] Start: 06-10-2023 Screening for osteoporosis Bone Density Scan [facility] Start: 05-31-2023 End: 05-31-2023 Patient encounter procedure 05/31/2023 1:30 PM EDT Appointment [facility] [address] [place] [address] Thea Jones [address] [facility] [address] [place], [place] [id number] [facility] Start: 05-05-2023 COVID-19 Vaccine ( season) COVID-19 Vaccine () [facility] Start: 05-05-2023 Covid-19 Vaccine ( season) Covid-19 Vaccine ( season) [facility] Start: 05-05-2023 Influenza vaccination [facility] Start: 03-13-2023 End: 03-13-2023 Patient encounter procedure 03/13/2023 9:00 AM EDT Office Visit [address] [phone] Alonso Mcgill MD [address] [place] [phone] [facility] Start: 03-01-2023 SERUM CREATININE SERUM CREATININE [facility] Start: 03-01-2023 End: 03-01-2023 Patient encounter procedure 03/01/2023 Office Visit Neurosurgery Alonso Mcgill MD [address] [place] [phone] [facility] Start: 02-28-2023 SERUM CREATININE SERUM CREATININE [facility] Start: 02-22-2023 ANNUAL PCP TEAM CHRONIC DISEASE VISIT ANNUAL PCP TEAM CHRONIC DISEASE VISIT [facility] Start: 02-17-2023 End: 02-17-2023 Admission to same day surgery center 02/17/2023 [place] [address] [place] [phone] C3-C6 ANTERIOR CERVICAL DECOMPRESSION, FUSION [84763 (CPT )] [facility] Comment on above: C3-C6 ANTERIOR CERVICAL DECOMPRESSION, F USION [05306 (CPT )] Start: 02-17-2023 End: 02-17-2023 Arthrd ant interbody decompress cervical belw c2 ARTHRODESIS ANTERIOR INTERBODY DISCECTOMY DECOMPRESSION SPINAL CORD CERVICAL BELOW C2 Disease of spinal cord, unspecified (HCC) 02/17/2023 12:30 PM EDT [facility] Start: 02-17-2023 Subsequent hospital visit by physician 02/17/2023 Hospital Encounter Procedural Alonso Mcgill MD [address] [place] [phone] [facility] Start: 02-10-2023 End: 02-10-2023 Admission to establishment 02/10/2023 Pre-Admission Testing Pre-Admission Testing [facility] Pre-Admit Testing Start: 01-28-2023 ANNUAL PCP TEAM CHRONIC DISEASE VISIT ANNUAL PCP TEAM CHRONIC DISEASE VISIT [facility] Start: 01-12-2023 Subsequent hospital visit by physician 01/12/2023 Hospital Encounter Radiology [facility] CT Imaging Start: 12-07-2022 End: 12-08-2023 CT Cervical spine WO contrast CT cervical spine wo IV contrast Imaging Routine 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) (HCC) Expected: 12/07/2022, Expires: 12/08/2023 [employer] Work Phone: Comment on above: Expected: 12/07/2022, Expires: Start: 11-22-2022 ANNUAL PCP TEAM CHRONIC DISEASE VISIT ANNUAL PCP TEAM CHRONIC DISEASE VISIT [facility] Start: 11-16-2022 ADVANCE DIRECTIVE DISCUSSION ADVANCE DIRECTIVE DISCUSSION [facility] Start: 11-15-2022 HEMOGLOBIN/HEMATOCRIT HEMOGLOBIN/HEMATOCRIT [facility] Start: 11-15-2022 SERUM CREATININE SERUM CREATININE [facility] Start: 09-04-2022 ADVANCE DIRECTIVE DISCUSSION ADVANCE DIRECTIVE DISCUSSION [facility] Start: 07-11-2022 COVID-19 VACCINE (4 - Booster for Pfizer series) COVID-19 VACCINE (4 - Booster for Pfizer series) [facility] Start: 05-05-2022 COVID-19 VACCINE (4 - Booster for Pfizer series) COVID-19 VACCINE (4 - Booster for Pfizer series) [facility] Start: 05-05-2022 COVID-19 VACCINE (5 - Booster) COVID-19 VACCINE (5 - Booster) [facility] Start: 05-05-2022 Influenza vaccination [facility] Start: 09-04-2021 ADVANCE DIRECTIVE DISCUSSION ADVANCE DIRECTIVE DISCUSSION [facility] Start: 06-08-2021 SERUM CREATININE SERUM CREATININE [facility] Start: 05-11-2021 COVID-19 VACCINE (3 - Booster for Pfizer series) COVID-19 VACCINE (3 - Booster for Pfizer series) [facility] Start: 08-06-2020 Hepatitis B surface antibody level LDL CHOLESTEROL [facility] Start: 05-05-2020 Influenza vaccination INFLUENZA (#1) [facility] Start: 02-05-2020 HbA1c (Bld) [Mass fraction] HBA1C [facility] Start: 10-02-2019 Mammography MAMMOGRAM [facility] Start: 10-02-2019 Screening for malignant neoplasm of breast Mammogram Screening [facility] Start: 07-03-2019 DTaP/Tdap/Td Vaccines (1 - Tdap) DTaP/Tdap/Td Vaccines (1 - Tdap) [facility] Start: 07-03-2019 Urine microalbumin profile [facility] Start: 2015 BONE DENSITY BONE DENSITY [facility] Start: 2010 RSV Immunization aged 60 or older (1 - 1-dose 60+ series) RSV Immunization aged 60 or older (1 - 1-dose 60+ series) [facility] Start: 2010 RSV Immunization for Adults (1 - Risk 60-74 years 1-dose series) RSV Immunization for Adults (1 - Risk 60-74 years 1-dose series) [facility] Start: 2010 RSV Vaccine (1 - 1-dose 60+ series) RSV Vaccine (1 - 1-dose 60+ series) [facility] Start: 2010 RSV Vaccine (1 - Risk 60-74 years 1-dose series) RSV Vaccine (1 - Risk 60-74 years 1-dose series) [facility] Start: 2000 COLORECTAL CANCER SCREENING,SEE MODIFIER COLORECTAL CANCER SCREENING,SEE MODIFIER [facility] Start: 2000 Screening for malignant neoplasm of colon [facility] Start: 2000 Tuberculosis screening COLORECTAL CANCER SCREENING,SEE MODIFIER [facility] Start: 1995 COLOGUARD (FIT-DNA) COLOGUARD (FIT-DNA) [facility] Start: 1995 Colonoscopy COLONOSCOPY [facility] Start: 1995 COLORECTAL CANCER SCREENING COLORECTAL CANCER SCREENING [facility] Start: [address] COLONOGRAPHY [facility] Start: 1995 FECAL OCCULT BLOOD FECAL OCCULT BLOOD [facility] Start: 1995 Screening for malignant neoplasm of colon [facility] Start: 1995 SIGMOIDOSCOPY SIGMOIDOSCOPY [facility] Start: 1990 Screening for malignant neoplasm of breast Mammogram [facility] Start: 1969 Urine microalbumin profile DTAP,TDAP,TD (1 - Tdap) [facility] Start: 1968 ANNUAL PCP TEAM CHRONIC DISEASE VISIT ANNUAL PCP TEAM CHRONIC DISEASE VISIT [facility] Start: 1968 BP CONTROLLED (<130/80) BP CONTROLLED (<130/80) [facility] Start: 1968 Diabetes mellitus screening Diabetes Screening [facility] Start: 1968 HEPATITIS C SCREENING HEPATITIS C SCREENING [facility] Start: 1968 Hepatitis C screening Hepatitis C Screening [facility] Start: 1968 SPIROMETRY SPIROMETRY [facility] Start: 1968 zzSpirometry (Retired) zzSpirometry (Retired) [facility] Start: 1962 Depression Monitoring Depression Monitoring [facility] Start: 1962 Depresssion Monitoring Depresssion Monitoring [facility] Start: 1960 [object Object] DIABETIC FOOT EXAM [facility] Start: 1960 Hepatitis B screening URINE ALBUMIN:CREATININE RATIO [facility] Start: 1960 Hepatitis C antibody, confirmatory test DILATED RETINAL EXAM [facility] Start: [birth year]29-1951 COVID-19 Vaccine (#1) COVID-19 Vaccine (#1) [facility] Start: 1950 Hepatitis B Vaccines (1 of 3 - 3-dose series) Hepatitis B Vaccines (1 of 3 - 3-dose series) [facility] Start: 1950 Lipid panel Lipid Panel [facility] Start: 1950 Medicare Advantage Annual Wellness Visit (AWV) Medicare Advantage Annual Wellness Visit (AWV) [facility] Start: 1950 Screening for malignant neoplasm of colon [facility] Start: 1950 Screening for osteoporosis Bone Density Scan [facility] Start: 1950 Thyroid Nodule Ultrasound Thyroid Nodule Ultrasound [facility] Biopsy thyroid percutaneous core needle IMAGING GUIDED BIOPSY THYROID Radiology Routine Thyroid mass Ordered: 07/13/2020 [facility] Comment on above: Ordered: 07/13/2020 End: 01-12-2023 CT Cervical spine WO contrast [facility] Work Phone: Comment on above: Once for 1 Occurrences starting 01/13/20 23 until 01/12/2023 End: 07-07-2021 Ct head/brain w/o contrast material CT BRAIN WO IVCON Radiology Routine Intracranial hemorrhage (HCC) 1 Occurrences starting 06/07/2020 until 07/07/2021 [facility] Comment on above: 1 Occurrences starting 06/07/2020 until 07/07/2021 End: 03-24-2025 CTA Chest vessels W contrast IV CTA CHEST (GATED) W IVCON Radiology Routine Aneurysm of ascending aorta without rupture (HCC) Diverticulitis Primary hypertension Disorder of artery or arteriole (HCC) 1 Occurrences starting 02/23/2024 until 03/24/2025 [facility] Comment on above: 1 Occurrences starting 02/23/2024 until 03/24/2025 End: 04-20-2025 CTA Chest vessels W contrast IV CTA CHEST (GATED) W IVCON Radiology Routine Disorder of artery or arteriole (HCC) 1 Occurrences starting 03/21/2024 until 04/20/2025 [facility] Comment on above: 1 Occurrences starting 03/21/2024 until 04/20/2025 End: 05-03-2025 CTA Chest vessels W contrast IV CTA CHEST (GATED) W IVCON Radiology Routine Aneurysm of ascending aorta without rupture (HCC) Disorder of artery or arteriole (HCC) 1 Occurrences starting 04/03/2024 until 05/03/2025 [facility] Work Phone: Comment on above: 1 Occurrences starting 04/03/2024 until 05/03/2025 CYTOLOGY NON-SHEETMETAL PATTERNMAKER CYTOLOGY NON-GY N Lab Routine 07/28/2020 9:05 AM EST [facility] End: 01-02-2026 DBT Breast - bilateral screening SHAYE SCREENING W MARCELO Radiology Routine Encounter for screening mammogram for breast cancer 1 Occurrences starting 12/03/2024 until 01/02/2026 [facility] Work Phone: Comment on above: 1 Occurrences starting 12/03/2024 until 01/02/2026 ECG 12 lead ECG 12 lead CV E CG STAT 12/17/2023 6:10 AM EDT [facility] Work Phone: End: 02-22-2025 ECG COMPLETE ECG COMPLETE ECG Routine Aneurysm of ascending aorta without rupture (HCC) Diverticulitis Primary hypertension Disorder of artery or arteriole (HCC) 1 Occurrences starting 02/23/2024 until 02/22/2025 [facility] Work Phone: Comment on above: 1 Occurrences starting 02/23/2024 until 02/22/2025 End: 03-21-2025 ECG COMPLETE ECG COMPLETE ECG Routine Dilatation of thoracic aorta (HCC) Preop cardiovascular exam Primary hypertension Coronary artery calcification Dyslipidemia Chronic kidney disease, unspecified CKD stage Aneurysm of ascending aorta without rupture (HCC) Diverticulitis Disorder of artery or arteriole (HCC) Dyspnea, unspecified type 1 Occurrences starting 03/21/2024 until 03/21/2025 [facility] Work Phone: Comment on above: 1 Occurrences starting 03/21/2024 until 03/21/2025 End: 02-22-2025 Echocardiography ECHO Cardiology Routine Aneurysm of ascending aorta without rupture (HCC) Diverticulitis Primary hypertension Disorder of artery or arteriole (HCC) 1 Occurrences starting 02/23/2024 until 02/22/2025 [facility] Comment on above: 1 Occurrences starting 02/23/2024 until 02/22/2025 End: 11-15-2024 EGD - THERAPEUTIC, EUS, OR TUBE INTERVENTIONS EGD - THERAPEUTIC, EUS, OR TUBE INTERVENTIONS Endoscopy Routine Esophageal stenosis Adenomatous polyp of duodenum 1 Occurrences starting 11/16/2023 until 11/15/2024 [facility] Work Phone: Comment on above: 1 Occurrences starting 11/16/2023 until 11/15/2024 End: 03-04-2025 Flexible sigmoidoscopy study COLONOSCOPY DIAGNOSTIC Endoscopy Routine Diverticulitis 1 Occurrences starting 03/04/2024 until 03/04/2025 [facility] Work Phone: Comment on above: 1 Occurrences starting 03/04/2024 until 03/04/2025 MISC SEND OUT TEST 1 MISC SEND O UT TEST 1 Lab Routine 07/28/2020 9:33 AM EST [facility] End: 10-21-2022 MR Cervical spine WO contrast [facility] Work Phone: Comment on above: Once for 1 Occurrences starting 10/21/19 until 10/21/2022 OUTSIDE PROCEDURE SCAN OUTSIDE P ROCEDURE SCAN Procedures Ordered: 06/30/2023 [facility] Comment on above: Ordered: 06/30/2023 SURGICAL PATHOLOGY [facility] Work Phone: Comment on above: Release Upon Ordering for 1 Occurrences starting 11/14/2023, 1 completed Us soft tissue head & neck real time imge docm US THYROID/PARATHYROID Radiology Routine Multiple thyroid nodules 11/23/2021 11:05 AM EDT [facility] Work Phone: End: 06-30-2023 XR Cervical spine 4 or 5 Views [facility] Work Phone: Comment on above: Once for 1 Occurrences starting 06/30/20 23 until 06/30/2023 [facility] Immunizations Immunization Date Immunization Notes Care Provider Jasper clarke 05-24-2023 influenza virus vacc ine, unspecified formulation Arely Hercules PA-C Work Phone: [facility] 10-19-2021 influenza, high-dose , quadrivalent vaccine (FLUZONE HIGH DOSE QUADRIVALENT) [facility] 10-19-2021 influenza virus vacc ine, unspecified formulation Alonso Mcgill MD Work Phone: [facility] 06-08-2020 influenza, high-dose , quadrivalent vaccine (FLUZONE HIGH DOSE QUADRIVALENT) Tatiana Alvarez [facility] 07-02-2019 tetanus and diphther ia toxoids, adsorbed, preservative free, for adult use (5 Lf of tetanus toxoid and 2 Lf of diphtheria toxoid) [facility] 05-21-2019 influenza, high dose seasonal, preservative-free [facility] 10-05-2018 zoster vaccine recombinant [facility] 06-08-2018 Seasonal trivalent influenza vaccine, adjuvanted, preservative free [facility] 06-08-2018 zoster vaccine recombinant [facility] 03-20-2018 pneumococcal polysaccharide vaccine, 23 valent [facility] 08-07-2017 influenza, high dose seasonal, preservative-free [facility] 02-15-2017 pneumococcal conjuga te vaccine, 13 valent [facility] 06-06-2016 influenza, high dose seasonal, preservative-free [facility] 08-23-2013 influenza, seasonal, injectable, preservative free [facility] Payers Date Payer Category Payer Self-pay 2025 Unknown [id number] 2022 Medicare HMO [employer] MARILY BRUNNER [id number] 2022 Private Health Insurance [facility] [id number] 2022-2022 [address] [place] [address] Commercial [id number] 2020 Medicaid [id number] 2020 Medicare [id number] 2020 Medicare [id number] 2020 Medicare (Managed Care) [facility] MEDICARE [id number] 2020 Medicare [id number] Unknown [id number] Unknown [id number] Unknown [id number] Social History Date Type Detail Facility Start: 04-30-2020 End: 11-11-2022 Tobacco smoking status NHIS Never smoker [facility] Start: 04-30-2020 End: 11-11-2022 Tobacco use and exposure Never used [facility] Start: 04-30-2020 End: 03-04-2024 Alcohol intake Current non-drinker of alcohol (finding) [facility] Start: 1950 Sex Assigned At Female [facility] Start: 11-12-2021 End: 05-26-2023 Exposure to SARS-CoV-2 (event) Not sure [facility] Start: 06-09-2020 End: 03-01-2022 History SDOH Financial 5 [facility] Start: 06-09-2020 End: 03-01-2022 History SDOH Food Worry 1 [facility] Start: 06-09-2020 End: 03-01-2022 History SDOH Transport Med 2 [facility] Exposure to SARS-CoV -2 (event) Unable to assess [facility] Start: 12-07-2022 End: 05-23-2025 Alcohol intake Lifetime non-drinker (finding) [facility] Start: 1950 Sex Assigned At Not on file [facility] Tobacco smoking stat [facility] Tobacco smoking consumption unknown [facility] Start: 03-02-2023 End: 03-03-2023 History of Social function [facility] Start: 03-02-2023 End: 03-03-2023 Humiliation, Afraid, Rape, and Kick questionnaire [HARK] [facility] Within the last year , have you been afraid of your partner or ex-partner? No [facility] How often to you hav e a drink containing alcohol? Never [facility] How many standard dr inks containing alcohol do you have on a typical day? Patient does not drink [employer] [place] At any time in the p ast 12 months, were you homeless or living in fpc [including now]? Yes [employer] [place] (I/We) worried billy er (my/our) food would run out before (I/we) got money to buy more. Never true [facility] Start: 10-17-2019 Gender identity Identifies as female gender (finding) [facility] Work Phone: Start: 10-17-2019 Sexual orientation Heterosexual (finding) [facility] Work Phone: Start: 04-04-2022 Sex Female (finding) [facility] Medical Equipment Procedure Code Equipment Code Equipment Origin al Text Equipment Identifier Dates Graft Dbm Putty Bio 2.5cc Vial - [id number] Start: 03-02-2023 48mm Plate [id number] Start: 03-02-2023 Screw Bn Vas Sd 3.5x15 - [id number] Start: 03-02-2023 Bone Bmp Putty I-Factor 2.5cc - [id number] Start: 03-02-2023 Cage Spinal Mela lock 6deg 7mm - [id number] Start: 03-02-2023 Cage Spinal Mela lock 6deg 7mm - [id number] Start: 03-02-2023 Cage Spinal Mela lock 6deg 7mm - [id number] Start: 03-02-2023 Nail Intertan 10 s [id number] 125d - [id number] FDA Start: 04-21-2025 Screw Bn 5mm 30m m Trgn Fem - [id number] Start: 04-21-2025 Kit Scr 95mm 4.5 mm Intertan - [id number] Start: 04-21-2025 Goals Date Patient Goal Desired Activity /State Personal health goal Personal health goal Functional Status Date Assessment Result Facility 05-23-2025 Patient Health Quest ionnaire 2 item (PHQ-2) [Reported] [facility] 04-19-2025 Total score [AUDIT-C] 0 08/16/20 25 10:16 PM EDT Chandni Ramos RN [facility] 03-03-2022 Are you deaf, or do you have serious difficulty hearing No 03/03/2022 3:41 PM EDT Virginia Adames RN No [facility] 03-03-2022 Are you blind, or do you have serious difficulty seeing, even when wearing glasses No 03/03/2022 3:41 PM EDT Virgniia Adames RN No [facility] 03-03-2022 Do you have serious difficulty walking or climbing stairs Yes 03/03/2022 3:41 PM EDT Virginia Adames RN Yes [facility] 03-03-2022 Do you have difficul ty dressing or bathing Yes 03/03/2022 3:41 PM EDT Virginia Adames RN Yes [facility] 03-03-2022 Because of a physica l, mental, or emotional condition, do you have difficulty doing errands alone such as visiting a physician's office or shopping Yes 03/03/2022 3:41 PM EDT Virginia Adames RN Yes [facility] Mental Status Date Assessment Result Facility 03-03-2022 Because of a physica l, mental, or emotional condition, do you have serious difficulty concentrating, remembering, or making decisions No 03/03/2022 3:41 PM EDT Virginia Adames RN No [facility] Clinical Notes 11-06-2020 to 05-23-2025 Stacy Juan WATER SYSTEMS DESIGNER - HEAD USHER - 05/23/2025 10:00 AM EDTPatient Vitaly Polanco MD - 04/23/2025 1:34 PM EDTCare Coordination - Angel Luis Matos RN - 04/23/2025 12:09 PM EDTDischaranthony Instr - NARESH Note Date & Type Note Facility 05-23-2025 History of Present illness Narrative Images from the original note were not included. Subjective: Pily is approximatley 2 weeks post op from IMN right femur fracture. Overall pain is mild. Knee pain is mild. She denies new numbness or tingling since surgery. She denies other new complaints. Review of Systems Constitutional: Negative for activity change. HENT: Negative for congestion. Cardiovascular: Negative for leg swelling. Musculoskeletal: Positive for arthralgias, gait problem and joint swelling. Skin: Negative for wound. Neurological: Negative for weakness. Objective: Ht 5' (1.524 m) Wt 165 lb (74.8 kg) BMI 32.22 kg/m Ortho Exam All incisions are healing appropriately. Hip ROM shows flexion: 90, IR: 30. Knee ROM shows flexion is 90 and extension is -10. Swelling:mild Sensation normal to all distal dermatomes. No evidence of DVT seen on physical exam.. XRAYS: 2v Right femur show the nail remains in good position. The fracture is well-aligned and remains unchanged from immediate post-op films. Assessment 1. Closed displaced intertrochanteric fracture of right femur, initial encounter ([facility]) Plan Pily will remain WBAT and focus on aggressive ROM of hip and knee and edema control. She has been working with PT at the [facility]. We reviewed signs and symptoms of infection and DVT. I recommend she follow up in 6 weeks with xrays if pain is not continuing to improve. She knows to call back sooner with any additional questions or concerns. Electronically signed by Stacy Juan CNP 05/23/2025 at 12:35 PM. documented in this encounter [facility] 05-23-2025 Instructions Andreea Elizabeth MA - 05/23/2025 10:00 AM EDT WBAT XR in 6 weeks only if still having pain documented in this encounter [facility] 04-23-2025 Note Hospitalist Discharg e Summary Pily Barnes : 1950 Admit date: 04/19/2025 Discharge date: 04/23/2025 Admitting Physician: Jacek Iniguez MD Primary Care Physician: No primary care provider on file. Visit Status: Inpatient Code Status: DNR-CCA Acute, acute on chronic, unstable/uncontrolled chronic problems/discharge diagnoses: Fall with right hip fracture-status post right femur fracture and right hip IM nailing postop day 2 Acute blood loss anemia with hemoglobin at 9.9 today, asymptomatic Hypokalemia-resolved potassium Stable chronic problems affecting care, new non-acute discharge diagnoses: Asthma-albuterol as needed. Encourage incentive spirometry Ascending aortic aneurysm with no size change compared to the prior imaging, outpatient follow-up Incomplete left bundle branch block-echo reviewed in Care Everywhere shows that her ejection fraction is normal Hypertension-continue losartan and amlodipine Hyperlipidemia-on statin Depression-on Prozac and bupropion Parkinsonian symptoms-not on any medication Thyroid nodule on the right side-needs outpatient follow-up Medical History[1] Procedures: POCT glucose meter Performed by: Richa Mcdonald, [address] [place] [id number] CLIA ID: [id number] === 04/19/25 === CT FEMUR RIGHT WO IV CONTRAST - Impression - 1. Acute RIGHT femur intertrochanteric comminuted impaction fracture. Osteopenia. 2. Colonic diverticulosis. Report Dictated on Electronically Signed By: Cee Del Angel MD Electronically Signed Date/Time: 04/19/2025 5:50 PM EDT No results found for this or any previous visit from the past 365 days. LABS Results from last 7 days Lab Units 04/23/2532404/22/255704/21/25 0028 04/19/25 1722 WBC AUTO 10*3/uL 7.8 9.1 8.7 10.5 HEMOGLOBIN g/dL 9.9* 11.4* 12.3 13.5 HEMATOCRIT % 30.8* 35.3 38.6 40.6 PLATELETS 10*3/uL 126* 134* 137* 165 NEUTROS PCT AUTO % 76.2 -- 81.2 87.4* LYMPHO PCT MAN % -- 2* -- -- LYMPHS PCT AUTO % 12.0* -- 10.0* 6.6* MONO PCT MAN % -- 5 -- -- MONOS PCT AUTO % 8.9 -- 7.6 4.5* EOS PCT AUTO % 2.4 -- 0.8 0.7 Results from last 7 days Lab Units 04/23/255 04/22/25 0058 04/21/25 0028 SODIUM mmol/L 138 137 139 POTASSIUM mmol/L 4.6 4.7 4.7 CHLORIDE mmol/L 110* 109* 112* CO2 mmol/L 23 22* 21* BUN mg/dL 17 14 16 CREATININE mg/dL 0.68 0.75 0.74 GLUCOSE mg/dL 92 158* 144* CALCIUM mg/dL 8.2* 8.5* 8.6* Hospital Course: See discharge diagnoses list above and medication adjustments below in med rec.The patient is discharged in improved and stable condition. 74-year-old female patient is admitted after a fall with right hip fracture. Orthopedics was consulted and she had right hip IM nail. Upon request of family geriatrics was consulted to review medications. Discussed with geriatrics and they discontinued Klonopin but no other changes. Because of the fall multiple CTs were done including the CT of the cervical spine. CT of the chest showed ascending aortic aneurysm which had no change in size. CT of the cervical spine showed thyroid nodule of 1.3 cm and will need outpatient follow-up. Discussed with Ortho service and they are agreeable for Lovenox for DVT prophylaxis, patient reportedly had prior falls and had a mild subdural hematoma many years ago. Discussed with patient and I do not think would pose a contraindication for Lovenox at this time since benefit risk ratio is high for DVT. Consults: IP CONSULT TO WOUND PREVENTION IP CONSULT TO GERIATRICS Discharge Instructions: Diet: Dietary Orders (From admission, onward) Start Ordered 04/21/25 1646 Adult diet Regular Diet effective now Question: Diet type Answer: Regular 04/21/25 9861 Activity: as tolerated Recommended Outpatient Tests: OP follow up with PCP for thyroid nodule Disposition: Patient discharged in stable condition to SNF . Greater than 30 minutes spent discharging the patient and coming up with patient discharge plan. Discharge Medications: Medication List START taking these medications acetaminophen 325 MG tablet Commonly known as: Tylenol Take 2 tablets (650 mg) by mouth every 6 hours as needed for mild pain (1-3) or fever (For temp greater than 100.4 F (38 C)) for up to 10 days. enoxaparin 40 MG/0.4ML solution prefilled syringe Commonly known as: Lovenox Inject 0.4 mL (40 mg) under the skin every 24 hours for 21 doses. Start taking on: April 24, 2025 oxyCODONE 5 MG immediate release tablet Commonly known as: Roxicodone Take 1 tablet (5 mg) by mouth every 6 hours as needed for moderate pain (4-6) or severe pain (7-10) for up to 3 days. polyethylene glycol (PEG) 3350 17 g packet Commonly known as: Miralax Take 17 g by mouth Daily as needed (constipation) for up to 5 days. CONTINUE taking these medications albuterol 108 (90 Base) MCG/ACT inhaler amLODIPine 2.5 MG tablet Commonly known as: Norvasc (more content not included)... [facility] 04-23-2025 Hospital course Narrative Hospitalist Discharge Summary Pily Barnes : 1950 Admit date: 04/19/2025 Discharge date: 04/23/2025 Admitting Physician: Jacek Iniguez MD Primary Care Physician: No primary care provider on file. Visit Status: Inpatient Code Status: DNR-CCA Acute, acute on chronic, unstable/uncontrolled chronic problems/discharge diagnoses: Fall with right hip fracture-status post right femur fracture and right hip IM nailing postop day 2 Acute blood loss anemia with hemoglobin at 9.9 today, asymptomatic Hypokalemia-resolved potassium Stable chronic problems affecting care, new non-acute discharge diagnoses: Asthma-albuterol as needed. Encourage incentive spirometry Ascending aortic aneurysm with no size change compared to the prior imaging, outpatient follow-up Incomplete left bundle branch block-echo reviewed in Care Everywhere shows that her ejection fraction is normal Hypertension-continue losartan and amlodipine Hyperlipidemia-on statin Depression-on Prozac and bupropion Parkinsonian symptoms-not on any medication Thyroid nodule on the right side-needs outpatient follow-up Medical History[1] Procedures: POCT glucose meter Performed by: Richa Mcdonald, [address] [place], [place] [id number] CLIA ID: [id number] === 04/19/25 === CT FEMUR RIGHT WO IV CONTRAST - Impression - 1. Acute RIGHT femur intertrochanteric comminuted impaction fracture. Osteopenia. 2. Colonic diverticulosis. Report Dictated on Electronically Signed By: Cee Del Angel MD Electronically Signed Date/Time: 04/19/2025 5:50 PM EDT No results found for this or any previous visit from the past 365 days. LABS Results from last 7 days Lab Units 04/23/25 0325 04/22/25 0058 04/21/25 0028 04/19/25 1722 WBC AUTO 10*3/uL 7.8 9.1 8.7 10.5 HEMOGLOBIN g/dL 9.9* 11.4* 12.3 13.5 HEMATOCRIT % 30.8* 35.3 38.6 40.6 PLATELETS 10*3/uL 126* 134* 137* 165 NEUTROS PCT AUTO % 76.2 -- 81.2 87.4* LYMPHO PCT MAN % -- 2* -- -- LYMPHS PCT AUTO % 12.0* -- 10.0* 6.6* MONO PCT MAN % -- 5 -- -- MONOS PCT AUTO % 8.9 -- 7.6 4.5* EOS PCT AUTO % 2.4 -- 0.8 0.7 Results from last 7 days Lab Units 04/23/255 04/22/25 0058 04/21/25 0028 SODIUM mmol/L 138 137 139 POTASSIUM mmol/L 4.6 4.7 4.7 CHLORIDE mmol/L 110* 109* 112* CO2 mmol/L 23 22* 21* BUN mg/dL 17 14 16 CREATININE mg/dL 0.68 0.75 0.74 GLUCOSE mg/dL 92 158* 144* CALCIUM mg/dL 8.2* 8.5* 8.6* Hospital Course: See discharge diagnoses list above and medication adjustments below in med rec.The patient is discharged in improved and stable condition. 74-year-old female patient is admitted after a fall with right hip fracture. Orthopedics was consulted and she had right hip IM nail. Upon request of family geriatrics was consulted to review medications. Discussed with geriatrics and they discontinued Klonopin but no other changes. Because of the fall multiple CTs were done including the CT of the cervical spine. CT of the chest showed ascending aortic aneurysm which had no change in size. CT of the cervical spine showed thyroid nodule of 1.3 cm and will need outpatient follow-up. Discussed with Ortho service and they are agreeable for Lovenox for DVT prophylaxis, patient reportedly had prior falls and had a mild subdural hematoma many years ago. Discussed with patient and I do not think would pose a contraindication for Lovenox at this time since benefit risk ratio is high for DVT. Consults: IP CONSULT TO WOUND PREVENTION IP CONSULT TO GERIATRICS Discharge Instructions: Diet: Dietary Orders (From admission, onward) Start Ordered 04/21/25 1646 Adult diet Regular Diet effective now Question: Diet type Answer: Regular 04/21/25 1645 Activity: as tolerated Recommended Outpatient Tests: OP follow up with PCP for thyroid nodule Disposition: Patient discharged in stable condition to SNF . Greater than 30 minutes spent discharging the patient and coming up with patient discharge plan. Discharge Medications: Medication List START taking these medications acetaminophen 325 MG tablet Commonly known as: Tylenol Take 2 tablets (650 mg) by mouth every 6 hours as needed for mild pain (1-3) or fever (For temp greater than 100.4 F (38 C)) for up to 10 days. enoxaparin 40 MG/0.4ML solution prefilled syringe Commonly known as: Lovenox Inject 0.4 mL (40 mg) under the skin every 24 hours for 21 doses. Start taking on: April 24, 2025 oxyCODONE 5 MG immediate release tablet Commonly known as: Roxicodone Take 1 tablet (5 mg) by mouth every 6 hours as needed for moderate pain (4-6) or severe pain (7-10) for up to 3 days. polyethylene glycol (PEG) 3350 17 g packet Commonly known as: Miralax Take 17 g by mouth Daily as needed (constipation) for up to 5 days. CONTINUE taking these medications albuterol 108 (90 Base) MCG/ACT inhaler amLODIPine 2.5 MG tablet Commonly known as: Norvasc ARIPiprazole 5 MG tablet Commonly known as: Abilikush Breo Ellipta 100-25 MCG/ACT aerosol powder Generic drug: Fluticasone Furoate-Vilanterol buPROPion XL 300 MG 24 hr tablet Commonly known as: Wellbutrin XL Calcium + Vitamin D3 600-10 MG-MCG tablet Generic drug: Calcium Carb-Cholecalciferol cholecalciferol 125 MCG (5000 UT) tablet Commonly known as: Vitamin D-3 famotidine 20 MG tablet Commonly known as: Pepcid FLUoxetine 20 MG capsule Commonly known as: PROzac fluticasone 50 MCG/ACT nasal spray Commonly known as: Flonase High Potency Multivitamin tablet Invega Sustenna 39 MG/0.25ML suspension prefilled syringe Generic drug: paliperidone palmitate ER lamoTRIgine 25 MG tablet Commonly known as: LaMICtal Loratadine 10 MG capsule losartan 50 MG tablet Commonly known as: Cozaar nystatin [id number] UNIT/GM powder Commonly known as: Mycostatin Omeprazole 20 MG tablet delayed-release rosuvastatin 20 MG tablet Commonly known as: Crestor STOP taking these medications clonazePAM 0.5 MG tablet Commonly known as: KlonoPIN lisinopril 20 MG tablet Where to Get Your Medications You can get these medications from any pharmacy Bring a paper prescription for each of these medications oxyCODONE 5 MG immediate release tablet Information about where to get these medications is not yet available Ask your nurse or doctor about these medications acetaminophen 325 MG tablet enoxaparin 40 MG/0.4ML solution prefilled syringe polyethylene glycol (PEG) 3350 17 g packet Recommended Follow-up: Skye Bansal, WATER SYSTEMS DESIGNER - HEAD USHER [address] [place] [address] Stacy Juan WATER SYSTEMS DESIGNER - HEAD USHER [address] [facility] [address] [facility] [address] Follow up in 4 week(s) xrays, ROM check, wound check Complexity of Follow up: [] Moderate Complexity: follow up within 7-14 calendar days (60290) [x] Severe Complexity: follow up within 7 calendar days (39634) Follow up Testing, Pending results or Referrals at Transitional Care Visit: [x] Yes, follow up w OP PCP for thyroid nodule , once discharged from retirement facility [] no Instructions to MA: Please call patient on day after discharge (must document patient contacted within 2 business days of discharge). Follow up questions for MA: 1. Did you get medications filled and taking them as instructed from discharge? 2. Are you following your discharge instructions from your hospital stay? 3. Please confirm patient is scheduled for a follow up appointment within the above time frame. Signed: Latoya Polanco MD Division of Hospitalist Medicine Inpatient Medical Services/[facility] 04/23/2025, 1:35 PM [1] Past Medical History: Diagnosis Date AA (aortic aneurysm) (HCC) Anxiety Aspirin long-term use history Asthma Bipolar 1 disorder (HCC) Chronic kidney disease Depression Difficulty walking High blood pressure Lack of coordination Mitral valve insufficiency Muscle weakness Presence of intraocular lens Repeated falls Rhabdomyolysis Sleep apnea Suicidal ideations Traumatic subarachnoid hemorrhage without loss of consciousness (HCC) documented in this encounter [facility] 04-23-2025 Progress note Formatting of t his note might be different from the original. Cm received confirmation that 2 pm is confirmed for transport to [place]. CM placed call to Jenise Barnes left message w [employer] and also called Nathanael Barnes and spoke javy huffman via phone to update on transport time. and RN aware of 2 pm lemon picker [facility] 04-23-2025 Miscellaneous Notes Cm received confirmation that 2 pm is confirmed for transport to [place]. CM placed call to Jenise Barnes left message w [employer] and also called Nathanael Barnes and spoke javy huffman via phone to update on transport time. and RN aware of 2 pm lemon picker Patient Choice Patient Name: PILY BARNES Date of : 1950 All Providers Sent Referral Name: [facility] Phone: [phone] Address: [address] [place], [place] [id number] Name: Darline Anderson [facility] Member Phone: [phone] Address: [address] [place] [address] Name: Armond Gregorio [facility] Phone: [phone] Address: [address] [place] [address] Confirmed pickup time of 2pm by transport company [employer] at phone number [phone]. Location of facility drop off is [facility]. Facility notified via [facility], TCC notified on secure chat. Transport requested 2pm in [facility]. Awaiting time confirmation. Discharge med list transmitted to [facility] via [facility] per TCC request. 7000 was entered into [facility] for the SNF- Facility is aware Cm received notification from Dr. [facility] stating pt cleared for dc. Only med change s Klonipin and it was dc'd. CM placed a call to Jenise Barnes [facility] to attempt to update and left v mail. CM did speak with son Nathanael via phone to provide update and advised that dc is being placed and will call back with notification of transport. [facility]. Task placed to [facility] to set up cot Transport. Awaiting finalized dc order by attending and will have [facility] send dc orders/7000 and MAR> DCP: [facility]. Call placed to Jenise Barnes to inform of insurance auth for admission to [facility]. CM had to leave an additional message w [employer] left name and contact information. Cwe continue to wait for Geriatrics assessment recommendations. CM to continue to reach HCPOA. Late entry by CM this day 04/23. 8:35 AM cm placed calls to pt's son Nathanael Barnes to inform responses from skilled referrals. [facility] accepted and [facility] was not able as no beds available. Permission to proceed with [facility]. CM did also place call to HCPOVI Barnes. Left v mail with phone [employer] planning assistant w call back number. Sujatha Huffman will continue to attempt to reach brother Jenise to update. Cm received notification by [facility] that insurance approval was received for admission to [facility]. Chart reviewed VSS CM completed NARESH. Messaged RN and attending for Orders/naresh completion and Tasked for cot transportation. Referral placed to [facility] per TCC request. Await review and response regarding ability to accept. TCC notified. Care Managment Initial Assessment Date: 04/22/2025 Patient Name: Pily Barnes : 1950 Patient Information Source of Information: Patient, Patient Metal Melter Name/Contact Information: mina Huffman Cognition/Language: WFL - Within Functional Limits Permission given to speak with patient digital sales representative/caregiver as indicated: Yes Confirmation of Payer with patient/family: Yes Payer Name: [facility] Medicare [place]: No Confirmation of Primary Care Physician: Confirmed PCP Name: Dr. Mckee from [facility] I Seen in last 2 years?: Yes Primary Caregiver: (AL attendants assist with ADLS/Sons assist with Financials/HCPOA) If assistance needed, confirmed caregiver ready, willing and able to care for patient at discharge: Confirmed with: Living Arrangements Current Residence: Number of Floors 1 Number of Entry Steps: 1 Bed/Bath Levels: Both first floor Facility: Assisted Living Facility Name: [facility] Plan to Return: Lives with: Alone Support Systems: Children, Comments (Other) (attendants at [facility]) Activities of Daily Living Ambulation: Assistance (walker short dist. to wheelchair) Bathing/Dressing: Assistance (pt requires assist with hair and back / Socks and shoes) Elimination/Continence/Toileting: Assistance (depends) Feeding: Independent Who Assists with Activities of Daily Living: AL staff Instrumental Activities of Daily Living Prescription Coverage: Yes Pharmacy Used: [facility] Medication Management: (nursing administers medications) Transportation/Shopping: Assistance Provider Transportation/Shopping Assistance Provider Name: family/ [place] Transportation Mode: Car Needs Assistance with Transportation at Discharge: Yes Meal Preparation: Assistance Provider Meal Prep Assistance Provider Name: [facility] staff Laundry/Cleaning: Assistance Provider Laundry/Cleaning Assistance Provider Name: [facility] Staff/Family Finances/Bill Paying: Assistance Provider Finances/Bill Payer Assistance Provider Name: reynaldo Communication: Independent Types of Care Services/Equipment Utilized Care Services: Dialysis Type: NA Durable Medical Equipment: Walker, Wheelchair (standard or power) DME Provider: owns and facility based Patient's Goal/Discharge Plan Patient expects to be discharged to: Discharge Planning Actions: Continue to follow, Intermediate Facility referral indicated [place] choice: [place] of [place] discussed, Choice list provided Patient's Choice Rights and [employer] and Collaborative Relationships Disclosed as Indicated for Post-Acute Care: Yes Interdisciplinary Team Engagement: PT/OT, Home Health Care Social Work Referral for: Additional Information: Pt admitted to hospital s/p slip and fall in bathroom of AL. Diagnosed via x ray/CT w acute R IT femur fracture. S/p surgical intervention 04/21/[address] Carlos Beverly. Underwnt IM nailing w general anesthesia. [place] removed and pt voiding per nursing. CM met with pt and her son Nathanael at bedside. Nathanael assisting with ordering pt's lunch. Pt pleasant talkative answered most of the questions during IA. CM did introduce self and role. Pt reports being at [facility] for aprox. 3 years. Pt ambulates with walker short distances and transitions to when ambulating to dinning room twice a day. Pt reports she needs assist for hair washing and her back. Assist needed also for application of socks and shoes. Insurance verified [facility] Medicare and pt follows with Dr. Mckee at [facility] HCPOA is Claudia/Jenise Barnes. Therapy recommendations reviewed and SNF list presented to pt and sone. CM tasked SKIP TRACER to place referrals to pt and family selections: [facility]. 2nd and Darline Marcelo 3rd. Awaiting acceptance. DCP: SNF when accepted and approved. CM following. Angel Luis Matos RN Images from the original note were not included. [facility] OR [address] [place] [id number] Dept: [phone] Operative Report Patient Name: Pily Barnes Date of : 1950 Date of Surgery: 04/21/25 Pre-operative Diagnosis: Right intertroch femur fracture Post-operative Diagnosis: Same Procedure: Intramedullary Nailing Right Femur Components used: [employer] Intertan IMN, 10 mm diameter X 18 cm length, 125 degree neck angle Anesthesia: general Surgeon: Rolando Beverly MD Assistants: tong [email or web address] Estimated Blood Loss: 50 Complications: None Specimens: No Operative findings: anatomic reduction. History of present illness: I met with Pily in the preoperative area prior to the procedure and discussed the surgical plan once again and answered all of her questions related to the procedure and the expected post-operative course. The risks of surgery were discussed including but not limited to the risks of medications given for surgery, the risk of blood loss during and after surgery that can lead to the need for blood products in certain situations, infection, damage to normal structures that can lead to fpc problems of pain or dysfunction, wound healing complications, the possibility of nonunion, malunion and late or chronic pain were also discussed. In addition potentially life threatening complications at the time of surgery and after surgery were discussed including but not limited to deep vein thrombosis, pulmonary embolism, myocardial infarction, stroke and . I initialed her Rightlower extremity and signed her consent form. Operative report: she was then taken to the operating room. A general anesthetic was then given by the anesthesia staff and an endotracheal tube was placed by the anesthesia staff. At all times during the operative procedure the patient's head neck and airway were protected by the anesthesia staff. The patient was then transferred to the fracture table. Care was taken to identify and pad all bony prominences. Perineal post was place and the feet were placed in the fracture table boots and secured. The upper extremities were padded and positioned. Closed reduction of the fracture was then accomplished utilizing the fracture table and verified on fluroscopic imaging in AP, oblique and lateral planes. The Right lower extremity was then prepped and draped in the usual orthopedic sterile fashion. A surgical timeout was then performed with the patient's identification, the procedure to be performed being reviewed, verification that the patient had received preoperative antibiotics, and verification of the correct surgical side. This timeout was performed by myself, the circulating room nurse and the anesthesia staff. The patient's ASA was verified by the nurse audit mgr and the anesthesia staff. Fire risk was assessed. A 3.2 mm threaded guide pin was then placed through the skin proximal to the greater trochanter and advanced until it was centered just medial to the tip of the greater trochanter on the AP fluroscopic view and was centered midway between the anterior and posterior edges of the greater trochanter on the lateral view. When the position of the pin was verified it was advanced through the cortex and taken to the level of the lesser trochanter. Its intramedullary position was verified on AP and lateral fluroscopic images. The skin was then incised longitudinally around the pin and a soft tissue guide was advanced through the incision until it rested on the greater trochanteric tip. The proximal reamer was then placed over the guide pin and proximal reaming was carried out to the level of the lesser trochanter. The 10x18 125 neck ankle nail was then place. The outer proximal nail guide was then centered with respect to the head, neck and shaft of the femur on the lateral fluroscopic view. The guide sleeve for the lag/compression screw was placed through an incision in the lateral thigh and advanced until it rested on the lateral cortex of the femur. A 3.2 mm threaded guide pin was then advanced through the guide sleeve until it rested with the center of the femoral head subchondral bone on both the AP and lateral fluroscopic views. The guide pin was then measured to determine the length of the lag screw and compression screw. Once position of the pin was verified to be correct the compression screw slot was drilled and the anti-rotation bar was placed. Reaming was then carried out over the guide pin through the lag screw portion of the sleeve. Once reaming was complete the lag screw was placed over the guide pin and advanced until it was fully seated. The anti-rotation bar was then removed and the compression screw was placed and once engaged the fracture was compressed as verified on fluroscopic images. Cig-Kcvh-Ywxfbyfd was felt to be less than 25 mm on ap/lat images. Using the out head up operator a distal locking screw was placed in the static hole. Blunt dissection was carried down to the outer cortex of the distal femur and drilling and measuring through a distal locking hole was accomplished. A 5mm locking screw was then placed. Its position was verified on fluroscopic imaging on AP, oblique and lateral planes. The incisions were then thoroughly irrigated with copious amounts of sterile saline. The subcutaneous tissues were closed with 2-0 vicryl and the skin with milton. Dry sterile dressing were applied. The patient was then transferred to her hospital bed, awakened from her anesthetic and then transported to the recovery room in stable condition. Post op plan: WBAT dvt proph per primary or ASA fx 4 wks 24hrs abx Signed by: Rolando Beverly MD, MD Date: 04/21/2025 Location: [facility] OR Name: Pily Barnes, : 1950, Diagnosis Pre-op Diagnosis * Closed displaced intertrochanteric fracture of right femur, initial encounter ([facility]) [S72.141A] Post-op Diagnosis * Closed displaced intertrochanteric fracture of right femur, initial encounter ([facility]) [S72.141A] Procedures RIGHT ORIF, FRACTURE, FEMUR, INTERTROCHANTERIC, WITH INTRAMEDULLARY IMPLANT INSERTION 82809 - KS TX INTER/KS/SUBTRCHNTRIC FEM FX IMED IMPLTSCREW Surgeons * Rolando Beverly - Primary Procedure Summary Anesthesia: General ASA: III Estimated Blood Loss: 50mL Drains: Urethral Catheter (Active) Catheter Indications Short-term following a surgical procedure (i.e. Urological or Gynecological) or active irrigation 04/20/252035 Site Assessment Clean;Skin intact 04/20/252035 Collection Container Standard drainage bag 04/20/252035 Securement Method Securing device 04/20/252035 Catheter Best Practices Drainage tube clipped to bed;Catheter secured to thigh;Tamper seal intact;Bag below bladder;Bag not on floor;Lack of dependent loop in tubing;Drainage bag less than half full 04/20/252035 Catheter Status Draining 04/20/252035 Output (mL) 700 mL 04/21/25 0600 Implants Type Name Action Serial No. Nail NAIL INTERTAN 10S [id number] - [id number] Implanted Screw KIT SCR 95MM 4.5MM INTERTAN - [id number] Implanted Screw SCREW BN 5MM 30MM TRGN FEM - [id number] Implanted Staff: Switching Operator: Ranjeet Chappell RN Physician Installations Inspector: Sherry Enriquez PA-C Prescription Benefit Specialist: Beto Diallo RT (R) Relief Switching Operator: Chela Soliz RN Scrub Person: Librado Allen Assist: Cee Carrillo Findings: See op note Complications: None; patient tolerated the procedure well. Specimens Collected: No specimens collected during this procedure. Wound Class: Class I: Clean Blood Products: None Prophylactic Antibiotics: Procedure appropriate prophylactic antibiotic(s) given within 1 hour of surgical incision (two hours if receiving Vancomycin or flouroquinolone) -Operative plans: No further plans for surgery -Weight bearing: RLE: WBAT LLE: WBAT RUE: WBAT LUE: WBAT -Range of motion parameters: ROM as tolerated -Immobilization: No immobilization needed -Antibiotics: 24 hours of post op antibiotics. -Dressings: Keep dressings clean dry and intact for 5 days post operatively, then ok to leave open to air if incision is without drainage. -Other: None -Diet: no restrictions from ortho standpoint -Labs: CBC & BMP x 2 days post op -PT/OT -PT recommended outpatient/post discharge?: Yes, for basic ADLs -Ice & elevate -Medical management, dvt ppx and pain control per primary -DVT ppx recommended?: Yes, 30 days of post operative DVT ppx recommended, orthopedics recommends aspirin 81mg BID, but defer to primary team -Follow-up with Dr Beverly in 2 weeks -Ortho to follow. Cosigned by Rolando Beverly MD at 04/22/2025 6:43 AM EDT Warm blankets applied. BP 168/85 81 93% on 2L Pt states nausea is better. 168/90 81 94% on 2L. Sons at bedside Pt c/o nausea, zofran given per Dr Henderson order. Arrived in sds, A+O x3, sons at bedside. IV K+ via pump documented in this encounter [facility] 04-23-2025 Progress note Formatting of t his note might be different from the original. Patient Choice Patient Name: PILY BARNES Date of : 1950 All Providers Sent Referral Name: [facility] Phone: [phone] Address: [address] [place] [address] Name: Darline GÓMEZ Member Phone: [phone] Address: [address] [place] [address] [facility]: [phone] Address: [address] [place] [address] [facility] 04-23-2025 Progress note Formatting of t his note might be different from the original. Confirmed pickup time of 2pm by transport company [employer] at phone number [phone]. Location of facility drop off is [facility]. Facility notified via [facility], TCC notified on secure chat. [facility] 04-23-2025 Progress note Formatting of t his note might be different from the original. Transport requested 2pm in [facility]. Awaiting time confirmation. [facility] 04-23-2025 Progress note Formatting of t his note might be different from the original. Discharge med list transmitted to [facility] via [facility] per TCC request. 7000 was entered into [facility] for the SNF- Facility is aware T [facility] 04-23-2025 Progress note Formatting of t his note might be different from the original. Johnathon received notification from Dr. [facility] stating pt cleared for dc. Only med change s Klonipin and it was dc'd. CM placed a call to Jenise HERNDON to attempt to update and left v mail. JOHNATHON did speak with son Nathanael via phone to provide update and advised that dc is being placed and will call back with notification of transport. CM messaged facility in [facility]. Task placed to [facility] to set up cot Transport. Awaiting finalized dc order by attending and will have [facility] send dc orders/7000 and MAR> DCP: [facility]. T [facility] 04-23-2025 Note Hospitalist Progress Note 04/23/[id number]: Please page me ([phone]) for patient care issues. [phone]: Please page [facility] night Hospitalist for any issues. Subjective: Admit Date: 04/19/2025 PCP: No primary care provider on file. Room#: B1-157/B1-157 Hai Barnes is a 74 y.o. female who presents with Closed nondisplaced intertrochanteric fracture of right femur, initial encounter ([facility]) Interval History: 74-year-old female patient is admitted with a fall and the right hip fracture. She is on bedrest and orthopedic service is consulted For IM nail of the right femur.. Claims pain is tolerable, awaiting PT and OT. Discussed with son at bedside and he is worried about polypharmacy and her frequent falls at home, geriatrics consult is pending [place] is out and she is able to void, not able to pass flatus yet. Complains of right hip pain with movement Denies chest pain, sob, abdominal pain, nausea, vomiting, diarrhea, constipation, fevers, or chills. Adult diet Regular 24HR INTAKE/OUTPUT: Intake/Output Summary (Last 24 hours) at 04/23/2025 1048 Last data filed at 04/23/2025 0646 Gross per 24 hour Intake -- Output 750 ml Net -750 ml LABS: CBC: Recent Labs 04/21/25 0028 04/22/25 0058 04/23/25 0325 WBC 8.7 9.1 7.8 RBC 4.16 3.84 3.33* HGB 12.3 11.4* 9.9* HCT 38.6 35.3 30.8* MCV 92.8 91.9 92.5 RDW 13.5 13.3 13.5 PLT 137* 134* 126* BMP: Recent Labs 04/21/25 0028 04/22/25 0058 04/23/25 0325 NA 139 137 138 K 4.7 4.7 4.6 CL 112* 109* 110* CO2 21* 22* 23 BUN 16 14 17 CREATININE 0.74 0.75 0.68 GLUCOSE 144* 158* 92 CALCIUM 8.6* 8.5* 8.2* ANIONGAP 6 6 5 LIVER PROFILE: Recent Labs 04/23/25 0325 AST 47* ALT 26 BILITOT 0.6 ALKPHOS 56 PROT 5.0* PT/INR: No results for input(s): "PROTIME", "INR" in the last 72 hours. CARDIAC ENZYMES: No results for input(s): "TROPONINI" in the last 72 hours. Procalcitonin: No results found for: "PROCAL" @RISRSLTSPECIALTY@ Objective: Vitals: BP 110/61 Pulse 76 Temp 36.4 ?C (97.6 ?F) (Temporal) Resp 16 Ht 5' (1.524 m) Wt 165 lb (74.8 kg) SpO2 94% BMI 32.22 kg/m? Pulse Ox: SpO2 Av.3 % Min: 92 % Max: 94 % Supplemental O2: O2 Flow Rate (L/min): 3 L/min 04/23/2025 General appearance: Awake alert oriented x 3, appears to be in mild distress Cardiovascular: S1, S2, regular rhythm, no murmurs gallops or rubs Respiratory: Diminished breath sounds bilaterally and no wheezing or rhonchi abdomen: Benign, positive bowel sounds, soft, nontender Musculoskeletal: Right hip incision with postop dressing and no calf tenderness skin: No rash or lesions Neurological: Awake alert oriented x 3, no acute motor or sensory deficits Medications: Continuous Meds[1] Scheduled Meds[2] PRN Meds[3] Assessment Fall with right hip fracture-status post right femur fracture and right hip IM nailing postop day 2 Acute blood loss anemia with hemoglobin at 9.9 today, asymptomatic Hypokalemia-resolved potassium Chronic problems Asthma-albuterol as needed. Encourage incentive spirometry Ascending aortic aneurysm with no size change compared to the prior imaging, outpatient follow-up Incomplete left bundle branch block-echo reviewed in Care Everywhere shows that her ejection fraction is normal Hypertension-continue losartan and amlodipine Hyperlipidemia-on statin Depression-on Prozac and bupropion Parkinsonian symptoms-not on any medication Thyroid nodule on the right side-needs outpatient follow-up Plan Reviewed CBC BMP ordered CBC BMP in a.m. Will need Lovenox for DVT prophylaxis and will discuss with primary service, started DVT prophylaxis Discussed with son and consulted geriatric service, anticipate discharge after geriatrics input Discussed with TCC about discharge planning, authorization already obtained -am labs, replace lytes prn -increase activity Diet Adult diet Regular DVT Prophylaxis [x] Lovenox, [] Heparin, [] SCDs, [] Ambulation [] Already on Anticoagulation[] ASA bid per prtho service GI Prophylaxis [] PPI, [] H2 Elena, [] Carafate, [] Diet/Tube Feeds Code Status DNR-CCA Disposition Patient requires continued admission due to right femur fracture MDM [] Low, [] Moderate,[x] High Patient's risk as above Total time spent (which include face to face and non face to face encounters) : 55 minutes Toxic drug monitoring/narrow therapeutic index drug monitoring : # Drug name : Morphine # Route administered : Intravenous # Method of monitoring : Daily BMP and physiological blood pressure monitoring Extended Emergency Contact Information Primary Emergency Contact: Claudia Barnes Relation: Son Secondary Emergency Contact: Nathanael Barnes Relation: Son Advance Directive: DNR-CCA Discharge planning: To retirement facility Latoya Polanco MD Division of Hospitalist Medic (more content not included)... [facility] 04-23-2025 History of Present illness Narrative Hospitalist Progress Note 04/23/2025 [phone]: Please page me ([phone]) for patient care issues. [phone]: Please page [facility] Hospitalist for any issues. Subjective: Admit Date: 04/19/2025 PCP: No primary care provider on file. Room#: B1-157/B1-157 A Pily Barnes is a 74 y.o. female who presents with Closed nondisplaced intertrochanteric fracture of right femur, initial encounter ([facility]) Interval History: 74-year-old female patient is admitted with a fall and the right hip fracture. She is on bedrest and orthopedic service is consulted For IM nail of the right femur.. Claims pain is tolerable, awaiting PT and OT. Discussed with son at bedside and he is worried about polypharmacy and her frequent falls at home, geriatrics consult is pending Ellsworth is out and she is able to void, not able to pass flatus yet. Complains of right hip pain with movement Denies chest pain, sob, abdominal pain, nausea, vomiting, diarrhea, constipation, fevers, or chills. Adult diet Regular 24HR INTAKE/OUTPUT: Intake/Output Summary (Last 24 hours) at 04/23/2025 1048 Last data filed at 04/23/2025 0646 Gross per 24 hour Intake -- Output 750 ml Net -750 ml LABS: CBC: Recent Labs 04/21/252704/22/255704/23/25324 WBC 8.7 9.1 7.8 RBC 4.16 3.84 3.33* HGB 12.3 11.4* 9.9* HCT 38.6 35.3 30.8* MCV 92.8 91.9 92.5 RDW 13.5 13.3 13.5 PLT 137* 134* 126* BMP: Recent Labs 04/21/252704/22/255704/23/25324 NA 139 137 138 K 4.7 4.7 4.6 CL 112* 109* 110* CO2 21* 22* 23 BUN 16 14 17 CREATININE 0.74 0.75 0.68 GLUCOSE 144* 158* 92 CALCIUM 8.6* 8.5* 8.2* ANIONGAP 6 6 5 LIVER PROFILE: Recent Labs 04/23/25324 AST 47* ALT 26 BILITOT 0.6 ALKPHOS 56 PROT 5.0* PT/INR: No results for input(s): "PROTIME", "INR" in the last 72 hours. CARDIAC ENZYMES: No results for input(s): "TROPONINI" in the last 72 hours. Procalcitonin: No results found for: "PROCAL" @RISRSLTSPECIALTY@ Objective: Vitals: BP 110/61 Pulse 76 Temp 36.4 C (97.6 F) (Temporal) Resp 16 Ht 5' (1.524 m) Wt 165 lb (74.8 kg) SpO2 94% BMI 32.22 kg/m Pulse Ox: SpO2 Av.3 % Min: 92 % Max: 94 % Supplemental O2: O2 Flow Rate (L/min): 3 L/min 04/23/2025 General appearance: Awake alert oriented x 3, appears to be in mild distress Cardiovascular: S1, S2, regular rhythm, no murmurs gallops or rubs Respiratory: Diminished breath sounds bilaterally and no wheezing or rhonchi abdomen: Benign, positive bowel sounds, soft, nontender Musculoskeletal: Right hip incision with postop dressing and no calf tenderness skin: No rash or lesions Neurological: Awake alert oriented x 3, no acute motor or sensory deficits Medications: Continuous Meds[1] Scheduled Meds[2] PRN Meds[3] Assessment Fall with right hip fracture-status post right femur fracture and right hip IM nailing postop day 2 Acute blood loss anemia with hemoglobin at 9.9 today, asymptomatic Hypokalemia-resolved potassium Chronic problems Asthma-albuterol as needed. Encourage incentive spirometry Ascending aortic aneurysm with no size change compared to the prior imaging, outpatient follow-up Incomplete left bundle branch block-echo reviewed in Care Everywhere shows that her ejection fraction is normal Hypertension-continue losartan and amlodipine Hyperlipidemia-on statin Depression-on Prozac and bupropion Parkinsonian symptoms-not on any medication Thyroid nodule on the right side-needs outpatient follow-up Plan Reviewed CBC BMP ordered CBC BMP in a.m. Will need Lovenox for DVT prophylaxis and will discuss with primary service, started DVT prophylaxis Discussed with son and consulted geriatric service, anticipate discharge after geriatrics input Discussed with TCC about discharge planning, authorization already obtained -am labs, replace lytes prn -increase activity Diet Adult diet Regular DVT Prophylaxis [x] Lovenox, [] Heparin, [] SCDs, [] Ambulation [] Already on Anticoagulation[] ASA bid per prtho service GI Prophylaxis [] PPI, [] H2 Elena, [] Carafate, [] Diet/Tube Feeds Code Status DNR-CCA Disposition Patient requires continued admission due to right femur fracture MDM [] Low, [] Moderate,[x] High Patient's risk as above Total time spent (which include face to face and non face to face encounters) : 55 minutes Toxic drug monitoring/narrow therapeutic index drug monitoring : # Drug name : Morphine # Route administered : Intravenous # Method of monitoring : Daily BMP and physiological blood pressure monitoring Extended Emergency Contact Information Primary Emergency Contact: Claudia Barnes Relation: Son Secondary Emergency Contact: Nathanael Barnes Relation: Son Advance Directive: DNR-CCA Discharge planning: To retirement facility Latoya Polanco MD Division of Hospitalist Medicine Inpatient Medical Services/[facility] [1] [2] amLODIPine, 2.5 mg, Oral, Daily ARIPiprazole, 5 mg, Oral, Daily buPROPion XL, 300 mg, Oral, Daily enoxaparin, 40 mg, SubCUTAneous, Daily FLUoxetine, 60 mg, Oral, Daily lamoTRIgine, 50 mg, Oral, Daily losartan, 100 mg, Oral, Daily mometasone-formoterol, 2 puff, Inhalation, BID rosuvastatin, 20 mg, Oral, Nightly [3] PRN medications: acetaminophen OR acetaminophen, clonazePAM, methocarbamol, morphine sulfate, naloxone, ondansetron, oxyCODONE, polyethylene glycol (PEG) 3350 Images from the original note were not included. PHYSICAL THERAPY [facility] Treatment Note Name/MRN: Pily Barnes ([id number]) Date of : 1950 Age: 74 y.o. Room/Bed: B1-157/B1-157 A Visit #: 1 out of 7 visits Discharge Recommendation: Intermediate Facility Equipment Needed: (TBD at next level of care) Prior Level of Function Prior Level of ADL Function: Required Assist Prior Level of Mobility: Required Assist; Device: Front wheeled walker Prior Level of Transfers: Required Assist Assessment Pt demonstrates decreased functional mobility with small progression towards goals established. Pt limited by reports of dizziness and nausea during activity. Pt continues to require MAX A to complete bed mobility but was able to maintain sitting in balance with close SBA but tendency to lean to the L. Exercises performed with need for assist to mobilize and encourage ROM. Pt will continue to benefit from current recommendation to further improve strength and functional mobility Subjective Pt agreeable to therapy. Observation PIV intact, pure wick intact, nasal canula intact Vitals Vitals Heart Rate: 76 SpO2: 94 % Heart Rate Source: Monitor BP: 110/61 MAP (mmHg): 77 Pain: 0-10 pain scale: 0/10 pre and 2 post treatment Location: R hip Medical Precautions: No active isolations Proper PPE donned/doffed in accordance with facility standards. Fall Risk: Norman Fall Risk Score: 60 (Medium Risk) Norman Fall Risk Score: 60 (High Risk) Precautions/Restrictions: Right LE Weight Bearing: Weight Bearing As Tolerated Overall Cognitive Status: Exceptions - Following commands: follows one step commands with increased time and follows one step commands with repetition - Problem solving: assistance required to identify errors made and assistance required to correct errors made - Insights: decreased awareness of deficits - Initiation: requires cues for all - Sequencing: requires cues for all Overall Orientation Status: Oriented to Place, Oriented to Situation, and Oriented to Person Family/Caregiver Present: none Objective Bed Mobility Supine to sit: Max Assist Sit to supine: Max Assist Scooting: Dependent Pt requires cueing for technique and sequencing to complete transition to sitting with assist to maneuver LE's and hips and then to elevate trunk from bed with elevated head. Use of draw pad needed to find center of balance. Pt demonstrated ability to maintain sitting at EOB with tendency to lean to the L. Pt would make attempts to correct with cueing but maintained for short periods of time. Pt performed R reaching tasks to encourage weight shifting. Pt sat for 6 minutes before needing to return to sitting with reports of nausea. Pt requires MAX A to guide trunk and elevate B LE's onto bed with MAX/dependent assist to reposition in middle of bed and then to be scooted to HOB. Balance During Session: Posture: poor - rounded Sitting - Static: SBA Sitting - Dynamic: SBA Exercises Exercises Straight Leg Raise: 1 set / 10 reps in supine B LE with assist B LE Quad Sets: 1 set / 10 reps in supine B LE with weak contraction Heelslides: 1 set / 10 reps in supine B LE with assist to encourage increased ROM B LE Gluteal Sets: 1 set / 10 reps in supine Hip Abduction: 1 set / 10 reps in supine B LE with assist to guide movement with limited ROM B LE Ankle Pumps: 1 set / 10 reps in supine B LE with limited range barely to neutral Comments: Exercises initiated with pt requiring assist to perform with quad firing present but weak and minimal range B LE's. Exercises performed to improve strength and activity tolerance for mobility with fair teach back. Pt would require breaks due to either c/o dizziness or nausea while lying that would resolve. Cueing provided for breathing techniques with activity. Plan Continue acute PT per plan of care. Safety/Education Safety Safety Devices in place: All fall risk precautions in place, call light within reach, left in bed, and patient at risk for falls Restraints: No Education Education Given To: patient Education Provided: PT Role, PT Goals, Plan of Care, and Home Exercise Program Education Method: Verbal, Demonstration, Teach Back, and Printed Information Barriers to Learning: Cognition Education Outcome: Continued Education Needed Outcome Measures AM-PAC AM-PAC Inpatient Mobility Raw Score (No Stairs) : 7 JH-HLM JH-HLM Score: Sat at edge of bed Goals Patient Stated Goal: pt did not state Encounter Problems Encounter Problems (Active) Exercise Patient will complete lower extremity exercises for 1-2 sets / 5-10 reps in order to improve strength and activity tolerance for mobility. (Progressing) Start: 04/22/25 Expected End: 04/29/25 Mobility Patient will ambulate 10 feet with min assist and rolling walker in order to improve safety and independence with mobility. (Not Addressed) Start: 04/22/25 Expected End: 04/29/25 Transfers Patient will perform bed mobility with min A in order to improve independence and prepare for out of bed mobility. (Progressing) Start: 04/22/25 Expected End: 04/29/25 Patient will complete functional transfer with rolling walker with mod assist in order to prepare for ambulation. (Not Addressed) Start: 04/22/25 Expected End: 04/29/25 Therapy Time Individual Co-treatment Time In 0840 Time Out 0912 Minutes 32 Timed Code Treatment Minutes: 28 Minutes (ther ex and ther act) Pily Porter PTA Cosigned by Bertha Gonzalez PT at 04/23/2025 9:56 AM EDT Images from the original note were not included. Adult Hip and Knee Reconstruction Service Patient Name: Pily Barnes Date of : 1950 Date: 04/23/25 Assessment: s/p Right CMN on 04/19/2025 doing well Plan: -Weight bearing: WBAT -Consults: none -Antibiotics: Abx 24hrs post-op -Dressings: Keep bandage clean dry and intact for 7-10 days post operatively, then ok to leave open to air if incision is without drainage -Diet: no restrictions from ortho standpoint -Continue PT/OT -Pain control -Ice and elevate -DVT prophylaxis: lovenox/SCDs -DC planning: SNF p -Ortho signing off, please page catalyst concentration operator resident with questions or concerns. Subjective: Overall patient is doing well this morning. Pain is better and well controlled with pain medication. Patient has been up to the bathroom. Reports voiding without difficulty. continue PT/OT today. No new complaints. Medications: Scheduled Meds[1] Physical Exam: Vitals: 04/23/25 0841 BP: 110/61 Pulse: 76 Resp: Temp: SpO2: 94% Intake and Output Summary (Last 24 hours) at Date Time Intake/Output Summary (Last 24 hours) at 04/23/2025 1025 Last data filed at 04/23/2025 0646 Gross per 24 hour Intake -- Output 750 ml Net -750 ml General appearance - no acute distress Musculoskeletal - Dressing C/D/I Fires quad/TA/EHL/GSC SILT SP/DP/TN WWP distally Posterior tibial pulse 2+ bilaterally Calves soft, nontender bilateral. No edema, erythema or warmth noted to calves. Labs: Lab Results Component Value Date HGB 9.9 (L) 04/23/2025 , Lab Results Component Value Date WBC 7.8 04/23/2025 HGB 9.9 (L) 04/23/2025 HCT 30.8 (L) 04/23/2025 MCV 92.5 04/23/2025 PLT 126 (L) 04/23/2025 , Lab Results Component Value Date GLUCOSE 92 04/23/2025 CALCIUM 8.2 (L) 04/23/2025 NA 138 04/23/2025 K 4.6 04/23/2025 CO2 23 04/23/2025 CL 110 (H) 04/23/2025 BUN 17 04/23/2025 CREATININE 0.68 04/23/2025 , No results found for: "CRP", "CREACTIVEPRO" , and No results found for: "SEDRATE", SEDRATEBYMOD Rads: Radiological Procedure reviewed. Signed by: Sherry Enriquez PA-C [1] amLODIPine, 2.5 mg, Oral, Daily ARIPiprazole, 5 mg, Oral, Daily buPROPion XL, 300 mg, Oral, Daily enoxaparin, 40 mg, SubCUTAneous, Daily FLUoxetine, 60 mg, Oral, Daily lamoTRIgine, 50 mg, Oral, Daily losartan, 100 mg, Oral, Daily mometasone-formoterol, 2 puff, Inhalation, BID rosuvastatin, 20 mg, Oral, Nightly Images from the original note were not included. PHYSICAL THERAPY [facility] Initial Evaluation Name/MRN: Pily aBrnes ([id number]) Evaluation Date: 04/22/2025 Date of : 1950 Admission Date: 04/19/2025 3:31 PM Age: 74 y.o. Room/Bed: [facility]157/[facility]157 A Discharge Recommendation: Intermediate Facility Equipment Needed: (TBD at next level of care) Assessment IMPRESSION: Pt is a 74 y.o. female admitted 04/19 following fall resulting in intertrochanteric femur fx. Pt underwent R IMN by Dr. Beverly 04/21 and is WBAT RLE. Pt was previously requiring assist for functional mobility with FWW. Pt is currently requiring mod-max A x1 for bed mobility, max A to min A for sitting balance EOB. Pt is currently limited by weakness, pain and will benefit from acute skilled PT to address current deficits. Recommend SNF. Admitting Diagnosis: admitted 04/19 following fall resulting in intertrochanteric femur fx. Pt underwent R IMN by Dr. Beverly 04/21 Prognosis: fair Performance Deficits /Impairments: Increased Pain, Decreased Functional Mobility, Decreased Strength, Decreased Endurance, Decreased Balance, and Decreased Posture Decision Making: Medium Complexity Subjective Pt pleasant and agreeable to therapy session Pain: [place] Pain Ratin = Hurts even more Pain Location: RLE Past Medical History: Medical History[1] Past Surgical History: Surgical History[2] Admission Diagnosis: Patient Active Problem List Diagnosis Date Noted Closed nondisplaced intertrochanteric fracture of right femur, initial encounter ([facility]) 04/19/2025 Acute kidney injury (HCC) 12/16/2023 Nausea vomiting and diarrhea 12/16/2023 Cervical stenosis of spinal canal 03/02/2023 Shortness of breath 11/18/2022 Syncope and collapse 11/18/2022 Traumatic subdural hematoma of neuraxis ([facility]) 11/18/2022 Recurrent falls 03/01/2022 Rhabdomyolysis 02/28/2022 S/P partial thyroidectomy 02/24/2022 Multiple thyroid nodules 06/15/2020 Allergic rhinitis 06/06/2020 Cardiomegaly 06/06/2020 Herpes simplex 06/06/2020 Hypertensive heart disease without congestive heart failure 06/06/2020 Mixed hyperlipidemia 06/06/2020 Moderate persistent asthma without complication 06/06/2020 Nonrheumatic aortic valve stenosis 06/06/2020 Patent foramen ovale 06/06/2020 Stage 3 chronic kidney disease ([facility]) 06/06/2020 Status post hysterectomy 06/06/2020 Urge incontinence of urine 06/06/2020 Generalized anxiety disorder 10/17/2019 Insomnia 08/06/2019 Vitamin D deficiency 08/06/2019 Suicide attempt ([facility]) 11/13/2017 Mild intermittent asthma 09/23/2017 Bipolar 1 disorder, depressed, severe ([facility]/HCC) ([facility]) 09/22/2017 Severe recurrent major depression with psychotic features ([facility]) 09/22/2017 Primary hypertension 09/20/2017 Closed displaced intertrochanteric fracture of right femur ([facility]) 04/19/2025 Medical Precautions: No active isolations Proper PPE donned/doffed in accordance with facility standards. Fall Risk: Norman Fall Risk Score: 60 (Medium Risk) Norman Fall Risk Score: 60 (High Risk) Precautions/Restrictions: Right LE Weight Bearing: Weight Bearing As Tolerated Family/Caregiver Present: son left prior to mobility Overall Cognitive Status: Exceptions - Following commands: follows one step commands with increased time and follows one step commands with repetition - Problem solving: assistance required to generate solutions, assistance required to implement solutions, assistance required to identify errors made, assistance required to correct errors made, and decreased awareness of errors - Initiation: requires cues for all - Sequencing: requires cues for all Overall Orientation Status: Oriented x4 Vision: wears glasses at all times and and are being used during the eval Hearing: normal Social/Functional History Patient admitted from [facility]. Assistive Equipment: front wheeled walker and wheelchair - manual Prior Level of Function Prior Level of ADL Function: Required Assist Prior Level of Mobility: Required Assist; Device: Front wheeled walker Prior Level of Transfers: Required Assist Objective Lower Extremity Assessment AROM: WFL Strength: Exceptions: grossly decreased in BLE noted with functional mobility Balance: Balance During Session: Posture: poor Sitting - Static: Min Assist, Max Assist Sitting - Dynamic: Min Assist, Max Assist Pt sits EOB ~3-4 minutes requiring initial max A x1 to achieve and maintain midline with max verbal cues. Pt demos heavy retro and L lateral lean- likely 2/2 pain avoidance. With increased time, pt able to progress to min A with PATIENT ADMITTING CLERK to maintain upright. Pt limited by fatigue. Bed Mobility: Supine to sit: Max Assist Sit to supine: Mod Assist Pt completes supine->sit requiring max A x1 for trunk and BLE management with step by step verbal cues with increased time and effort to complete with fair carryover of cues. Pt returns to supine requiring mod A x1 for BLE management into bed with cues provided for technique. Transfers Unsafe to attempt due to poor sitting balance. Ambulation Did not assess this session. Outcome Measures AM-PAC How much HELP from another person do you currently need Turning from your back to your side while in a flat bed without using bedrails?: A Lot Moving from lying on your back to sitting on the side of a flat bed without using bedrails?: A Lot Moving to and from a bed to a chair (including a wheelchair)?: Total Standing up from a chair using your arms (wheelchair or bedside chair)?: Total Walking in a hospital room?: Total Stair climbing assessed?: No AM-PAC Inpatient Mobility Raw Score (No Stairs) : 7 JH-HLM -[facility] Score: Sat at edge of bed Plan Pt would benefit from skilled acute PT services to address Strengthening, Gait Training, Balance Training, Functional Mobility Training, Endurance Training, Safety Education and Training, Pain Management, Equipment Evaluation/Education, Patient/Caregiver Training, and Positioning. Frequency: 7 txpouc1p/day Barriers: Pain, Impaired balance, Lower extremity weakness, Decreased endurance, and Long standing deficits Safety/Education Safety Safety Devices in place: All fall risk precautions in place, call light within reach, left in bed, nurse notified, and no alarms engaged upon entry Restraints: N/A Education Education Given To: patient Education Provided: PT Role, PT Goals, Plan of Care, Discharge Recommendations, and Benefits of Increasing Activity Education Method: Verbal and Demonstration Barriers to Learning: Cognition Education Outcome: Verbalized Understanding, Demonstrated Understanding, and Continued Education Needed Goals Patient Stated Goal: pt did not state Encounter Problems Encounter Problems (Active) Exercise Patient will complete lower extremity exercises for 1-2 sets / 5-10 reps in order to improve strength and activity tolerance for mobility. Start: 04/22/25 Expected End: 04/29/25 Mobility Patient will ambulate 10 feet with min assist and rolling walker in order to improve safety and independence with mobility. Start: 04/22/25 Expected End: 04/29/25 Transfers Patient will perform bed mobility with min A in order to improve independence and prepare for out of bed mobility. Start: 04/22/25 Expected End: 04/29/25 Patient will complete functional transfer with rolling walker with mod assist in order to prepare for ambulation. Start: 04/22/25 Expected End: 04/29/25 Therapy Time Individual Co-Treatment Co-Evaluation Time In 1058 Time Out 1109 Minutes 11 Bertha Gonzalez PT Patient's Physical Therapy Plan of Care supervision is transferred to a [facility] Therapy Services Physical Therapist. Goals and/or treatment plan was established in collaboration with patient/family/other representatives. [1] Past Medical History: Diagnosis Date AA (aortic aneurysm) (HCC) Anxiety Aspirin long-term use history Asthma Bipolar 1 disorder (HCC) Chronic kidney disease Depression Difficulty walking High blood pressure Lack of coordination Mitral valve insufficiency Muscle weakness Presence of intraocular lens Repeated falls Rhabdomyolysis Sleep apnea Suicidal ideations Traumatic subarachnoid hemorrhage without loss of consciousness (HCC) [2] Past Surgical History: Procedure Laterality Date CERVICAL SPINE SURGERY 03/02/2023 C3-C6 ANTERIOR CERVICAL DECOMPRESSION, FUSION HYSTERECTOMY THYROID SURGERY N/A half Hospitalist Progress Note 04/22/[id number]: Please page me ([phone]) for patient care issues. [phone]: Please page [facility] Hospitalist for any issues. Subjective: Admit Date: 04/19/2025 PCP: No primary care provider on file. Room#: B1-157/B1-157 Hai Barnes is a 74 y.o. female who presents with Closed nondisplaced intertrochanteric fracture of right femur, initial encounter ([facility]) Interval History: 74-year-old female patient is admitted with a fall and the right hip fracture. She is on bedrest and orthopedic service is consulted They recommended IM nailing of the right femur. She is lying down, complains pain is tolerated well she is talking to her son who is at the bedside. Discussed with her about DVT prophylaxis for hip fracture with Lovenox.. She had a history of subdural hematoma, but she is not sure when it was, and was not definitely acute. Ellsworth catheter is out when she is voiding Denies chest pain, sob, abdominal pain, nausea, vomiting, diarrhea, constipation, fevers, or chills. Adult diet Regular 24HR INTAKE/OUTPUT: Intake/Output Summary (Last 24 hours) at 04/22/2025 1159 Last data filed at 04/22/2025 0645 Gross per 24 hour Intake 5094.33 ml Output 1100 ml Net 3994.33 ml LABS: CBC: Recent Labs 04/19/25 1722 04/21/25 0028 04/22/25 0058 WBC 10.5 8.7 9.1 RBC 4.49 4.16 3.84 HGB 13.5 12.3 11.4* HCT 40.6 38.6 35.3 MCV 90.4 92.8 91.9 RDW 13.3 13.5 13.3 PLT 165 137* 134* BMP: Recent Labs 04/19/25 1722 04/21/25 0028 04/22/25 0058 NA 141 139 137 K 3.2* 4.7 4.7 CL 116* 112* 109* CO2 18* 21* 22* BUN 20 16 14 CREATININE 0.62 0.74 0.75 GLUCOSE 93 144* 158* CALCIUM 7.2* 8.6* 8.5* ANIONGAP 7 6 6 LIVER PROFILE:No results for input(s): "AST", "ALT", "BILITOT", "ALKPHOS", "PROT" in the last 72 hours. No lab exists for component: LABALBU PT/INR: Recent Labs 04/19/251721 PROTIME 10.4 INR 1.0 CARDIAC ENZYMES: No results for input(s): "TROPONINI" in the last 72 hours. Procalcitonin: No results found for: "PROCAL" @RISRSLTSPECIALTY@ Objective: Vitals: BP 133/62 (BP Location: Right arm, Patient Position: Sitting) Pulse 73 Temp 36.8 C (98.2 F) (Temporal) Resp 16 Ht 5' (1.524 m) Wt 165 lb (74.8 kg) SpO2 100% BMI 32.22 kg/m Pulse Ox: SpO2 Av.9 % Min: 89 % Max: 100 % Supplemental O2: O2 Flow Rate (L/min): 4 L/min 04/22/2025 General appearance: Awake alert oriented x 3, appears to be in mild distress Cardiovascular: S1, S2, regular rhythm, no murmurs gallops or rubs Respiratory: Diminished breath sounds bilaterally and no wheezing or rhonchi abdomen: Benign, positive bowel sounds, soft, nontender Musculoskeletal: Right hip incision with postop dressing and no calf tenderness skin: No rash or lesions Neurological: Awake alert oriented x 3, no acute motor or sensory deficits Medications: Continuous Meds[1] Scheduled Meds[2] PRN Meds[3] Assessment Fall with right hip fracture-status post right femur fracture and right hip IM nailing postop day 1 Acute blood loss anemia with hemoglobin of 11.4 Hypokalemia-resolved potassium Chronic problems Asthma-albuterol as needed. Encourage incentive spirometry Ascending aortic aneurysm with no size change compared to the prior imaging, outpatient follow-up Incomplete left bundle branch block-echo reviewed in Care Everywhere shows that her ejection fraction is normal Hypertension-continue losartan and amlodipine Hyperlipidemia-on statin Depression-on Prozac and bupropion Parkinsonian symptoms-not on any medication Thyroid nodule on the right side-needs outpatient follow-up Plan Reviewed CBC BMP ordered CBC BMP in a.m. Will need Lovenox for DVT prophylaxis and will discuss with primary service Replace potassium Discussed with TCC about discharge planning, will need placement to retirement facility -am labs, replace lytes prn -increase activity Diet Adult diet Regular DVT Prophylaxis [] Lovenox, [] Heparin, [x] SCDs, [] Ambulation [] Already on Anticoagulation[] ASA bid per prtho service GI Prophylaxis [] PPI, [] H2 Elena, [] Carafate, [] Diet/Tube Feeds Code Status DNR-CCA Disposition Patient requires continued admission due to right femur fracture MDM [] Low, [] Moderate,[x] High Patient's risk as above Total time spent (which include face to face and non face to face encounters) : 55 minutes Toxic drug monitoring/narrow therapeutic index drug monitoring : # Drug name : Morphine # Route administered : Intravenous # Method of monitoring : Daily BMP and physiological blood pressure monitoring Extended Emergency Contact Information Primary Emergency Contact: Claudia Barnes Relation: Son Secondary Emergency Contact: Nathanael Barnes Relation: Son Advance Directive: DNR-CCA Discharge planning: To retirement facility Latoya Polanco MD Division of Hospitalist Medicine Inpatient Medical Services/[facility] [1] dextrose 5 % and sodium chloride 0.9 % with KCl 20 mEq, 125 mL/hr, Last Rate: 125 mL/hr (04/22/25 0622) [2] amLODIPine, 2.5 mg, Oral, Daily ARIPiprazole, 5 mg, Oral, Daily buPROPion XL, 300 mg, Oral, Daily FLUoxetine, 60 mg, Oral, Daily lamoTRIgine, 50 mg, Oral, Daily losartan, 100 mg, Oral, Daily mometasone-formoterol, 2 puff, Inhalation, BID rosuvastatin, 20 mg, Oral, Nightly [3] PRN medications: acetaminophen OR acetaminophen, clonazePAM, methocarbamol, morphine sulfate, naloxone, ondansetron, oxyCODONE, polyethylene glycol (PEG) 3350 Images from the original note were not included. OCCUPATIONAL THERAPY [facility] Initial Evaluation Name/MRN: Pily Barnes ([id number]) Evaluation Date: 04/22/2025 Date of : 1950 Admission Date: 04/19/2025 3:31 PM Age: 74 y.o. Room/Bed: B1-157/B1-157 A Discharge Recommendation: Intermediate Facility Assessment IMPRESSION: Pt is a 74 y/o F admitted to [facility] d/t a fall in the bathroom resulting in a R femur fracture requiring intramedullary nailing of the R femur, pt is WBAT/ROM as tolerated and on 4L O2. She is not on O2 at baseline and lives in [facility], states that she would walk hallway to dining room and then pushed in wc the rest of the way. Pt participated in bed mobility MAX A, sitting balance MAX A and transfer MAX A, pt unable to take any steps d/t buckling of knees and unable to complete LB dressing tasks d/t imbalance EOB. Pt is limited by weakness, decreased activity tolerance, buckling of knees, and reduced ADL performance and would benefit from acute OT to address these needs. Recommend pt dc to SNF to maximize rehab potential and return to PLOF. Admitting Diagnosis: R femur fracture from fall Performance Deficits /Impairments: Increased Pain, Decreased Functional Mobility, Decreased ADL status, Decreased Strength, Decreased Safety Awareness, Decreased Endurance, and Decreased Balance Prognosis: Fair Decision Making: Medium Complexity Subjective Pt agreeable to OT eval Pain: 0-10 pain scale: 5/10 Location: RLE Past Medical History: Medical History[1] Past Surgical History: Surgical History[2] Admission Diagnosis: Patient Active Problem List Diagnosis Date Noted Closed nondisplaced intertrochanteric fracture of right femur, initial encounter (HCC) 04/19/2025 Acute kidney injury ([facility]) 12/16/2023 Nausea vomiting and diarrhea 12/16/2023 Cervical stenosis of spinal canal 03/02/2023 Shortness of breath 11/18/2022 Syncope and collapse 11/18/2022 Traumatic subdural hematoma of neuraxis ([facility]) 11/18/2022 Recurrent falls 03/01/2022 Rhabdomyolysis 02/28/2022 S/P partial thyroidectomy 02/24/2022 Multiple thyroid nodules 06/15/2020 Allergic rhinitis 06/06/2020 Cardiomegaly 06/06/2020 Herpes simplex 06/06/2020 Hypertensive heart disease without congestive heart failure 06/06/2020 Mixed hyperlipidemia 06/06/2020 Moderate persistent asthma without complication 06/06/2020 Nonrheumatic aortic valve stenosis 06/06/2020 Patent foramen ovale 06/06/2020 Stage 3 chronic kidney disease (HCC) 06/06/2020 Status post hysterectomy 06/06/2020 Urge incontinence of urine 06/06/2020 Generalized anxiety disorder 10/17/2019 Insomnia 08/06/2019 Vitamin D deficiency 08/06/2019 Suicide attempt (HCC) 11/13/2017 Mild intermittent asthma 09/23/2017 Bipolar 1 disorder, depressed, severe ([facility]/HCC) ([facility]) 09/22/2017 Severe recurrent major depression with psychotic features ([facility]) 09/22/2017 Primary hypertension 09/20/2017 Closed displaced intertrochanteric fracture of right femur ([facility]) 04/19/2025 Medical Precautions: No active isolations Proper PPE donned/doffed in accordance with facility standards. Fall Risk: Norman Fall Risk Score: 60 (Medium Risk) Norman Fall Risk Score: 60 (High Risk) Precautions/Restrictions: Right LE Weight Bearing: Weight Bearing As Tolerated, ROM as tolerated Lines/Drains/Airways: 4L O2 Family/Caregiver Present: none Overall Cognitive Status: Exceptions - Following commands: follows one step commands with increased time and follows one step commands with repetition - Safety judgement: decreased awareness of need for safety - Problem solving: assistance required to generate solutions and assistance required to implement solutions - Initiation: requires cues for all - Sequencing: requires cues for all Overall Orientation Status: Oriented x4 Social/Functional History Patient admitted from [facility]. Assistive Equipment: front wheeled walker and wheelchair - manual Prior Level of Function Prior Level of ADL Function: Required Assist Prior Level of Mobility: Required Assist; Device: Front wheeled walker and Wheelchair - manual Prior Level of Transfers: Required Assist Objective ADLs LE Dressing: Max Assist Pt unable to maintain sitting balance to complete LB dressing tasks safely requiring MAX A for sock mgt. States at baseline she has aid at [facility] that completes most of the bathing and dressing tasks for her. Attempted to walk to the bathroom but pt unable to take steps without buckling, would benefit from BSC when able to weight bear through BLE. Bed Mobility Supine to sit: Max Assist Sit to supine: Max Assist Scooting: Max Assist HOB Elevated Use of bed rail(s) MAX A to sit EOB with repeated cues for hand placement and increased time to initiate movement. Pt demo'ing L lateral and slight anterior leaning requiring constant physical assistance to remain in safe sitting position. Cues to use hand on bed to push trunk to midline with pt attempting but unable to bring/maintain upright posture. MAX A sit to supine with pt unable to bring legs up with heavy assistance. Attempted MAX A x1 to scoot up in bed with cues for pt to use bed rails to pull up but pt unable to make significant movement. MAX A x2 to scoot up in bed once in supine for proper positioning. O2 at 96% at end of session. Transfers/Mobility Sit to stand: Max Assist Stand to sit: Min Assist Stand step: Max Assist MAX A STS from EOB with cues for hand placement on bed to push up. Pt appeared to demo minimal effort pushing up from bed with BUE. Pt placing one hand on FWW and pushing up from bed with LUE with MAX A with retrograde leaning against bed with back of legs and anterior bend with inability to come to an upright/midline. Attempting to take side step to HOB with knees buckling, MAX A to correct. MIN A to slowly descend to EOB with no follow through for hand placement to reach back. Pt standing for ~15s with SOB noted. Pt at 95% on 4L O2 after stand. States that she walks from room to assisted to the dining room and then is pushed in wheelchair the rest of the way. Completes this for meal time at [facility]. Device(s) used: Front wheeled walker Vision: Not Assessed Hearing: normal AM-PAC AM-PAC Inpatient Daily Activity Raw Score: 13 ADL Inpatient CMS G-Code Modifier: CL Plan Pt would benefit from skilled acute OT services to address Strengthening, Balance Training, Self-Care/ADL Training, Functional Mobility Training, Endurance Training, and Safety Education and Training Frequency: 7 visits during current hospital admission or until additional recommendations are made Barriers: Pain, Impaired balance, Lower extremity weakness, Upper extremity weakness, Decreased endurance, and Limited safety awareness Safety/Education Safety Safety Devices in place: call light within reach, left in bed, and gait belt Restraints: N/A Education Education Given To: patient Education Provided: OT Role, Plan of Care, Precautions, Transfer Training, Fall Prevention Education, Discharge Recommendations, Benefits of Increasing Activity, and Breathing Techniques Education Method: Verbal, Demonstration, and Teach Back Barriers to Learning: Cognition Education Outcome: Verbalized Understanding, Demonstrated Understanding, and Continued Education Needed Goals Patient Stated Goal: get better Encounter Problems Encounter Problems (Active) Balance Patient will maintain dynamic standing balance for 3 minutes with min assist in order to demonstrate decreased risk of falling. Start: 04/22/25 Expected End: 04/29/25 Patient will maintain dynamic sitting balance for 3 minutes with supervision in order to demonstrate improved postural control and prepare for out of bed mobility. Start: 04/22/25 Expected End: 04/29/25 Dressing Upper Extremities Patient will complete upper body dressing MIN A Start: 04/22/25 Expected End: 04/29/25 Dressings Lower Extremities Patient will dress lower body MIN A Start: 04/22/25 Expected End: 04/29/25 Toileting Patient will complete toileting tasks at standard toilet with min assist. Start: 04/22/25 Expected End: 04/29/25 Transfers Patient will complete functional transfer with rolling walker with min assist in order to prepare for ambulation. Start: 04/22/25 Expected End: 04/29/25 Patient will perform bed mobility with min assist in order to improve independence and prepare for out of bed mobility. Start: 04/22/25 Expected End: 04/29/25 Therapy Time Individual Co-Treatment Co-Evaluation Time In 08 Time Out 0854 Minutes 23 Timed Code Treatment Minutes: 8 Minutes (1 TA) Madison Barba S/OT Patient's Occupational Therapy Plan of Care supervision is transferred to a [facility] Therapy Services Occupational Therapist. Goals and/or treatment plan was established in collaboration with patient/family/other representatives. [1] Past Medical History: Diagnosis Date AA (aortic aneurysm) (HCC) Anxiety Aspirin long-term use history Asthma Bipolar 1 disorder (HCC) Chronic kidney disease Depression Difficulty walking High blood pressure Lack of coordination Mitral valve insufficiency Muscle weakness Presence of intraocular lens Repeated falls Rhabdomyolysis Sleep apnea Suicidal ideations Traumatic subarachnoid hemorrhage without loss of consciousness (HCC) [2] Past Surgical History: Procedure Laterality Date CERVICAL SPINE SURGERY 03/02/2023 C3-C6 ANTERIOR CERVICAL DECOMPRESSION, FUSION HYSTERECTOMY THYROID SURGERY N/A half Cosigned by Saabs Del Valle OT at 04/22/2025 2:01 PM EDT Associated attestation - Sabas Del Valle OT - 04/22/2025 2:01 PM EDT I certify that I was present during the entire session and guided the care given by the Student Occupational Therapist. Cosign: Images from the original note were not included. Adult Hip and Knee Reconstruction Service Patient Name: Pily Barnes Date of : 1950 Date: 04/22/25 Assessment: s/p Right CMN on 04/19/2025 doing well Plan: -Weight bearing: WBAT -Range of motion parameters: ROM as tolerated -Immobilization: No immobilization needed -Consults: none -Antibiotics: Abx 24hrs post-op -Dressings: Keep bandage clean dry and intact for 7-10 days post operatively, then ok to leave open to air if incision is without drainage -Diet: no restrictions from ortho standpoint -Continue PT/OT -Pain control -Ice and elevate -DVT prophylaxis: per medicine -DC planning: dispo p -Ortho following, please page catalyst concentration operator resident with questions or concerns. Subjective: Overall patient is doing well this morning. Pain is well controlled with pain medication. Patient has not been out of bed yet. Ell[place] in place. Starting PT/OT today. Denies nausea or vomiting. Reports some tingling to right leg. Denies SOB or calf pain. Medications: Scheduled Meds[1] Physical Exam: Vitals: 04/22/25 0255 BP: 137/81 Pulse: 80 Resp: 20 Temp: 37.1 C (98.7 F) SpO2: 95% Intake and Output Summary (Last 24 hours) at Date Time Intake/Output Summary (Last 24 hours) at 04/22/2025 0714 Last data filed at 04/22/2025 0645 Gross per 24 hour Intake 5094.33 ml Output 1100 ml Net 3994.33 ml General appearance - no acute distress Musculoskeletal - Dressing C/D/I Fires TA/EHL/GSC- weakness noted to quad SILT SP/DP/TN WWP distally Posterior tibial pulse 2+ bilaterally Calves soft, nontender bilateral. No edema, erythema or warmth noted to calves. Labs: Lab Results Component Value Date HGB 11.4 (L) 04/22/2025 , Lab Results Component Value Date WBC 9.1 04/22/2025 HGB 11.4 (L) 04/22/2025 HCT 35.3 04/22/2025 MCV 91.9 04/22/2025 PLT 134 (L) 04/22/2025 , Lab Results Component Value Date GLUCOSE 158 (H) 04/22/2025 CALCIUM 8.5 (L) 04/22/2025 NA 137 04/22/2025 K 4.7 04/22/2025 CO2 22 (L) 04/22/2025 CL 109 (H) 04/22/2025 BUN 14 04/22/2025 CREATININE 0.75 04/22/2025 , No results found for: "CRP", "CREACTIVEPRO" , and No results found for: "SEDRATE", SEDRATEBYMOD Rads: Radiological Procedure reviewed. Signed by: Sherry Enriquez PA-C [1] amLODIPine, 2.5 mg, Oral, Daily ARIPiprazole, 5 mg, Oral, Daily buPROPion XL, 300 mg, Oral, Daily FLUoxetine, 60 mg, Oral, Daily lamoTRIgine, 50 mg, Oral, Daily losartan, 100 mg, Oral, Daily mometasone-formoterol, 2 puff, Inhalation, BID rosuvastatin, 20 mg, Oral, Nightly Physician Response Please review the following and provide your response below. Please clarify which of the following accurately describes the patient's CKD Stage: no CKD This documentation will become part of the patient's medical record. Hospitalist Progress Note 04/21/2025 [phone]: Please page me ([phone]) for patient care issues. [phone]: Please page [facility] Hospitalist for any issues. Subjective: Admit Date: 04/19/2025 PCP: No primary care provider on file. Room#: B1-157/B1-157 Hai Barnes is a 74 y.o. female who presents with Closed nondisplaced intertrochanteric fracture of right femur, initial encounter ([facility]) Interval History: 74-year-old female patient is admitted with a fall and the right hip fracture. She is on bedrest and orthopedic service is consulted They recommended IM nailing of the right femur. She is somewhat lethargic but answers questions, complains of right hip pain Denies chest pain, sob, abdominal pain, nausea, vomiting, diarrhea, constipation, fevers, or chills. NPO diet without enteral medications 24HR INTAKE/OUTPUT: Intake/Output Summary (Last 24 hours) at 04/21/2025 1328 Last data filed at 04/21/2025 0600 Gross per 24 hour Intake 827.09 ml Output 1500 ml Net -672.91 ml LABS: CBC: Recent Labs 04/19/252 04/21/25 0028 WBC 10.5 8.7 RBC 4.49 4.16 HGB 13.5 12.3 HCT 40.6 38.6 MCV 90.4 92.8 RDW 13.3 13.5 PLT 165 137* BMP: Recent Labs 04/19/25172104/21/25 0028 NA 141 139 K 3.2* 4.7 CL 116* 112* CO2 18* 21* BUN 20 16 CREATININE 0.62 0.74 GLUCOSE 93 144* CALCIUM 7.2* 8.6* ANIONGAP 7 6 LIVER PROFILE:No results for input(s): "AST", "ALT", "BILITOT", "ALKPHOS", "PROT" in the last 72 hours. No lab exists for component: LABALBU PT/INR: Recent Labs 04/19/251721 PROTIME 10.4 INR 1.0 CARDIAC ENZYMES: No results for input(s): "TROPONINI" in the last 72 hours. Procalcitonin: No results found for: "PROCAL" @RISRSLTSPECIALTY@ Objective: Vitals: BP 150/84 Pulse 72 Temp 37.6 C (99.6 F) (Temporal) Resp 16 Ht 5' (1.524 m) Wt 165 lb (74.8 kg) SpO2 93% BMI 32.22 kg/m Pulse Ox: SpO2 Av.3 % Min: 93 % Max: 95 % Supplemental O2: O2 Flow Rate (L/min): 2 L/min 04/21/2025 General appearance: Awake alert oriented x 3, appears to be in mild distress Cardiovascular: S1, S2, regular rhythm, no murmurs gallops or rubs Respiratory: Diminished breath sounds bilaterally and no wheezing or rhonchi abdomen: Benign, positive bowel sounds, soft, nontender Musculoskeletal: Right hip incision with postop dressing and no calf tenderness skin: No rash or lesions Neurological: Awake alert oriented x 3, no acute motor or sensory deficits Medications: Continuous Meds[1] Scheduled Meds[2] PRN Meds[3] Assessment Fall with right hip fracture-status post right femur fracture and right hip IM nailing Monitor for acute blood loss anemia Hypokalemia-replace potassium Chronic problems Asthma-albuterol as needed. Encourage incentive spirometry Ascending aortic aneurysm with no size change compared to the prior imaging Incomplete left bundle branch block-echo reviewed in Care Everywhere shows that her ejection fraction is normal Hypertension-continue losartan and amlodipine Hyperlipidemia-on statin Depression-on Prozac and bupropion Parkinsonian symptoms-not on any medication Thyroid nodule on the right side-needs outpatient follow-up Plan Reviewed CBC BMP ordered CBC BMP in a.m. Will need Lovenox for DVT prophylaxis and will discuss with primary service Replace potassium Await PT and OT evaluation for possible placement needs -am labs, replace lytes prn -increase activity Diet NPO diet without enteral medications DVT Prophylaxis [] Lovenox, [] Heparin, [x] SCDs, [] Ambulation [] Already on Anticoagulation[] ASA bid per prtho service GI Prophylaxis [] PPI, [] H2 Elena, [] Carafate, [] Diet/Tube Feeds Code Status DNR-CCA Disposition Patient requires continued admission due to right femur fracture MDM [] Low, [] Moderate,[x] High Patient's risk as above Total time spent (which include face to face and non face to face encounters) : 55 minutes Toxic drug monitoring/narrow therapeutic index drug monitoring : # Drug name : Morphine # Route administered : Intravenous # Method of monitoring : Daily BMP and physiological blood pressure monitoring Extended Emergency Contact Information Primary Emergency Contact: Claudia Barnes Relation: Son Secondary Emergency Contact: Nathanael Barnes Relation: Son Advance Directive: DNR-CCA Discharge planning: To retirement facility Latoya Polanco MD Division of Hospitalist Medicine Inpatient Medical Services/[facility] [1] dextrose 5 % and sodium chloride 0.9 % with KCl 20 mEq, 125 mL/hr, Last Rate: 125 mL/hr (04/21/25 0932) [2] amLODIPine, 2.5 mg, Oral, Daily ARIPiprazole, 5 mg, Oral, Daily buPROPion XL, 300 mg, Oral, Daily FLUoxetine, 60 mg, Oral, Daily lamoTRIgine, 50 mg, Oral, Daily losartan, 100 mg, Oral, Daily mometasone-formoterol, 2 puff, Inhalation, BID rosuvastatin, 20 mg, Oral, Nightly [3] PRN medications: acetaminophen OR acetaminophen, clonazePAM, methocarbamol, morphine sulfate, naloxone, ondansetron, oxyCODONE, polyethylene glycol (PEG) 3350, sodium chloride Nutrition rescreen complete. Pt assigned a level one for nutrition care. ASSESSMENT: 74 y.o. female with R comminuted intertrochanteric femur fracture PLAN: -Plan for OR for R hip CMN today 04/21/[address] 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 Hospitalist Progress Note 04/20/[id number]: Please page me ([phone]) for patient care issues. [phone]: Please page [facility] night Hospitalist for any issues. Subjective: Admit Date: 04/19/2025 PCP: No primary care provider on file. Room#: B1-157/B1-157 Hai Barnes is a 74 y.o. female who presents with Closed nondisplaced intertrochanteric fracture of right femur, initial encounter ([facility]) Interval History: 74-year-old female patient is admitted with a fall and the right hip fracture. She is on bedrest and orthopedic service is consulted Plan is for right hip ORIF tomorrow. She complains of right hip discomfort Denies chest pain, sob, abdominal pain, nausea, vomiting, diarrhea, constipation, fevers, or chills. NPO diet NPO diet without enteral medications Adult diet Regular 24HR INTAKE/OUTPUT: Intake/Output Summary (Last 24 hours) at 04/20/2025 1140 Last data filed at 04/20/2025 1131 Gross per 24 hour Intake 1356.26 ml Output 250 ml Net 1106.26 ml LABS: CBC: Recent Labs 04/19/25 1722 WBC 10.5 RBC 4.49 HGB 13.5 HCT 40.6 MCV 90.4 RDW 13.3 PLT 165 BMP: Recent Labs 04/19/25 1722 NA 141 K 3.2* CL 116* CO2 18* BUN 20 CREATININE 0.62 GLUCOSE 93 CALCIUM 7.2* ANIONGAP 7 LIVER PROFILE:No results for input(s): "AST", "ALT", "BILITOT", "ALKPHOS", "PROT" in the last 72 hours. No lab exists for component: LABALBU PT/INR: Recent Labs 04/19/25 1722 PROTIME 10.4 INR 1.0 CARDIAC ENZYMES: No results for input(s): "TROPONINI" in the last 72 hours. Procalcitonin: No results found for: "PROCAL" @RISRSLTSPECIALTY@ Objective: Vitals: BP 148/88 Pulse 68 Temp 36.6 C (97.8 F) (Temporal) Resp 18 Ht 5' (1.524 m) Wt 165 lb (74.8 kg) SpO2 95% BMI 32.22 kg/m Pulse Ox: SpO2 Av % Min: 94 % Max: 97 % Supplemental O2: O2 Flow Rate (L/min): 2 L/min 04/20/2025 General appearance: Awake alert oriented x 3, appears to be in no distress Cardiovascular: S1, S2, regular rhythm, no murmurs gallops or rubs Respiratory: Diminished breath sounds bilaterally and no wheezing or rhonchi abdomen: Benign, positive bowel sounds, soft, nontender Musculoskeletal: Right hip externally rotated, decreased range of motion and no calf tenderness skin: No rash or lesions Neurological: Awake alert oriented x 3, no acute motor or sensory deficits Medications: Continuous Meds[1] Scheduled Meds[2] PRN Meds[3] Assessment Fall with right hip fracture-scheduled for OR tomorrow Preoperative clearance-does not have any prior CAD, or stroke, reviewed EKG, probably low cardiovascular risk for this emergent surgery, Hypokalemia-replace potassium Chronic problems Asthma-albuterol as needed Ascending aortic aneurysm with no size change compared to the prior imaging Incomplete left bundle branch block-echo reviewed in Care Everywhere shows that her ejection fraction is normal Hypertension-continue losartan and amlodipine Depression-on Prozac Parkinsonian symptoms-not on any medication Thyroid nodule on the right side-needs outpatient follow-up Plan Reviewed CBC BMP and EKG Preoperative clearance reviewed and she is optimized to proceed without any further cardiac testing Replace potassium Will require Lovenox for DVT prophylaxis after surgery for 4 weeks -am labs, replace lytes prn -increase activity Diet NPO diet NPO diet without enteral medications Adult diet Regular DVT Prophylaxis [] Lovenox, [] Heparin, [x] SCDs, [] Ambulation [] Already on Anticoagulation[] ASA bid per prtho service GI Prophylaxis [] PPI, [] H2 Elena, [] Carafate, [] Diet/Tube Feeds Code Status DNR-CCA Disposition Patient requires continued admission due to right femur fracture MDM [] Low, [] Moderate,[x] High Patient's risk as above Total time spent (which include face to face and non face to face encounters) : 55 minutes Toxic drug monitoring/narrow therapeutic index drug monitoring : # Drug name : Morphine # Route administered : Intravenous # Method of monitoring : Daily BMP and physiological blood pressure monitoring Extended Emergency Contact Information Primary Emergency Contact: Claudia Barnes Relation: Son Secondary Emergency Contact: Nathanael Barnes Relation: Son Advance Directive: DNR-CCA Discharge planning: TBD Latoya Polanco MD Division of Hospitalist Medicine Inpatient Medical Services/[facility] [1] dextrose 5 % and sodium chloride 0.9 % with KCl 20 mEq, 125 mL/hr, Last Rate: 125 mL/hr (04/20/25 1131) [2] amLODIPine, 2.5 mg, Oral, Daily ARIPiprazole, 5 mg, Oral, Daily buPROPion XL, 300 mg, Oral, Daily FLUoxetine, 60 mg, Oral, Daily lamoTRIgine, 50 mg, Oral, Daily losartan, 100 mg, Oral, Daily mometasone-formoterol, 2 puff, Inhalation, BID [3] PRN medications: acetaminophen OR acetaminophen, clonazePAM, methocarbamol, morphine sulfate, naloxone, ondansetron, oxyCODONE, polyethylene glycol (PEG) 3350 documented in this encounter [facility] 04-23-2025 Progress note Formatting of t his note might be different from the original. Call placed to Jenise Barnes to inform of insurance auth for admission to [facility]. CM had to leave an additional message w [employer] assistance left name and contact information. Cwe continue to wait for Geriatrics assessment recommendations. CM to continue to reach HCPOA. [facility] 04-23-2025 Progress note Formatting of t his note might be different from the original. Late entry by CM this day 04/23. 8:35 AM cm placed calls to pt's son Nathanael Barnes to inform responses from skilled referrals. [facility] accepted and [facility]. [facility] was not able as no beds available. Permission to proceed with [facility]. CM did also place call to HCPOA Jenise Barnes. Left v mail with phone [employer] planning assistant w call back number. Sujatha Huffman will continue to attempt to reach brother Jenise to update. [facility] 04-23-2025 Progress note Formatting of t his note might be different from the original. Cm received notification by [facility] that insurance approval was received for admission to [facility]. Chart reviewed VSS CM completed NARESH. Messaged RN and attending for Orders/naresh completion and Tasked for cot transportation. [facility] 04-23-2025 Consult note Associated Order (s): IP CONSULT TO GERIATRICS [employer] Geriatric Medicine Inpatient Consult Service Admission Date: 04/19/2025 Admission Status: INPATIENT Chief Complaint: fall Reason for Appointment Geriatrics consulted for Polypharmacy and falls Assessment & Plan Principal Problem: Closed nondisplaced intertrochanteric fracture of right femur, initial encounter ([facility]) Active Problems: Debility Acute pain due to trauma Bipolar 1 disorder ([facility]) At risk for delirium Debility -Contributing factors include: physical deconditioning, parkinsonism, polypharmacy, baseline poor balance -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 She saw Neurology for this in 2022. -Lives in an assisted living -Check orthostatics -consider checking vitamin D as outpatient -Physical Therapy and Occupational Therapy -planning for SNF for rehab prior to discharge back to assisted living. Planning on discharge today Acute Pain Due To Trauma -Could consider scheduling acetaminophen 1000 mg TID. Would check hepatic function before scheduling however -Agree with use of prn narcotic oxycodone for pain. Use lowest effective doses for breakthrough pain. -Consider stopping the prn robaxin unless she has specific muscle spasm complaints. Bipolar Disorder Reviewed her [place] medication list: -Abilify 5 mg daily -Bupropion XL 300 mg daily -Prozac 60 mg daily -Lamotrigine 50 mg daily -Invega 39 mg IM monthly on the 6th of the month -Continue above psychiatric medication regimen. 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 Will stop At Risk for Delirium -Risk factors include: age, pain, recent hip fracture -Could use Melatonin nightly prn insomnia if necessary -Avoid sedating/anticholinergic medications -Encourage family visits -Encourage sleep hygiene -Minimize barriers to nutrition -Optimize sensory input and access to assistive devices where indicated -Encourage time up in chair - including at meals - as able -Unless contraindicated, encourage regular ambulation with assistance -D/c Ellsworth, restraints, IV lines, as able Subjective: HPI 74 y.o. year-old female with past medical history of Bipolar 1 Disorder, chronic kidney disease, asthma, hypertension, ascending aortic aneurysm, anxiety/depression who presented to hospital following a fall with right hip fracture I reviewed patient's chart, including H&P and multiple progress notes. The following is a summary. -Per H and P, she was standing in the bathroom and looking at the mirror when she fell. She reported chronic balance issues. -She underwent intramedullary nailing of right femur on 04/21/25. -She lives in an assisted living "[facility] She has been there for about three years. She ambulates short distances with a walker. Uses a wheelchair to get down to the dining room at her assisted living. She requires assistance with showering (washing hair and back) as well as putting shoes/socks CBC: hgb 9.9 BMP: chloride 110 Geriatrics ED screen: Do you (or your loved one) have problems with your memory that affect your (their) day to day activities or that you or your family notice most days?: No Do you (or loved one) live alone AND/OR Do you (they) need more help at home then you (they) have now or currently available?: No Have you (or loved one) been in the hospital in the last 3 months?: No Do you (or loved one) have trouble with your walking or balance? Or Have you (they) fallen recently?: Yes Do you (or loved one) take more than 5 medications or vitamins every day?: Yes When compared to others your (their) own age, are you (or loved one) in worse health?: No Total Score: 2 Quick Cognitive Screen (QCS): Nursing Delirium Screen (Nu-Desc): Nursing Delirium Symptom Checklist Total Score: 0 Conversation with patient: -She reports the fall occurred at her assisted living. She is supposed to ask for help before she goes to the restroom. However, she admits to not asking for help that time. She was standing in front of the mirror when she lost her balance and fell. She doesn't think she was dizzy at time of the fall. -Neuropathy: fingers -Vision: good. Wears glasses -History of medication-induced parkinsonism. She was told she should not change her psychiatric medications despite of this -Memory: she occasionally notices a memory slip - such as forgetting a single word. She typically usually recalls it -Mood: good -No smoking or alcohol use -Lives in an assisted living. They assist with IADLs and multiple ADLs. -She ambulates short distances with a walker. She is able to ambulate about half way to the dining room before using her wheelchair (someone follows along behind her with the wheelchair) Conversation with caregiver: Patient gave permission to contact Jenise. Attempted phone call to son Claudia but was unable to get through. [employer] planning assistant said he was unavailable I called patient's assisted living facility and spoke with nursing staff: -No major cognitive issues or behavioral issues at baseline -She does not have an order for prn clonazepam at her facility Advance Care Planning Healthcare Power of Spoon Maker: yes, son Jenise Allergies[1] Current Medications[2] Medical History[3] Surgical History[4] Social History Tobacco Use Smoking status: Never Smokeless tobacco: Never Substance Use Topics Alcohol use: Never Social History Social History Narrative Not on file Family History Family History[5] Family Status Relation Name Status Mother Father No partnership data on file Review of Systems Constitutional: Negative for chills and fever. HENT: Positive for rhinorrhea (chronic, allergies). Eyes: Negative for visual disturbance. Respiratory: Positive for cough (chronic, allergies) and shortness of breath (chronic, stable, asthma). Cardiovascular: Negative for leg swelling. Gastrointestinal: Negative for abdominal pain, constipation, diarrhea and nausea. Genitourinary: Negative for difficulty urinating and dysuria. Musculoskeletal: Positive for arthralgias. Negative for myalgias. Neurological: Positive for dizziness and weakness. Psychiatric/Behavioral: Negative for confusion and dysphoric mood. Functional Status Prior to Admission: (I: Independent, A: Assisted, D: Dependent) ADLs I A D Notes Bathing [] [x] [] Dressing [] [x] [] Toileting [] [x] [] Transfers [] [] [] Feeding [] [] [] Ambulation [] [x] [] Assistive devices: walker and wheelchair IADLs I A D Telephone [] [] [] Transportation [] [] [x] Shopping [] [] [x] Meal prep [] [] [x] Housework [] [] [x] Medications [] [] [x] Finances [] [x] [] Objective: BP 110/61 Pulse 76 Temp 36.4 C (97.6 F) (Temporal) Resp 16 Ht 5' (1.524 m) Wt 165 lb (74.8 kg) SpO2 94% BMI 32.22 kg/m Intake/Output Summary (Last 24 hours) at 04/23/2025 1116 Last data filed at 04/23/2025 0646 Gross per 24 hour Intake -- Output 750 ml Net -750 ml Wt Readings from Last 3 Encounters: 04/19/25 165 lb (74.8 kg) 12/17/23 160 lb (72.6 kg) 12/16/23 160 lb (72.6 kg) Physical Exam Constitutional: General: She is not in acute distress. Appearance: She is not ill-appearing. HENT: Head: Normocephalic and atraumatic. Cardiovascular: Rate and Rhythm: Normal rate and regular rhythm. Heart sounds: Murmur heard. No friction rub. No gallop. Pulmonary: Effort: Pulmonary effort is normal. Breath sounds: Normal breath sounds. No decreased breath sounds, wheezing, rhonchi or rales. Abdominal: General: There is no distension. Palpations: Abdomen is soft. Tenderness: There is no abdominal tenderness. There is no guarding or rebound. Musculoskeletal: Right lower leg: No edema. Left lower leg: No edema. Neurological: Mental Status: She is alert. Comments: Oriented to person, month, year, place Psychiatric: Attention and Perception: Attention normal. Mood and Affect: Mood normal. Affect is blunt. Labs and Imaging: Recent Results (from the past 24 hours) CBC auto differential Collection Time: 04/23/25 3:25 AM Result Value Ref Range Auto WBC 7.8 3.6 - 10.7 10*3/uL RBC 3.33 (L) 3.80 - 5.20 10*6/uL Hemoglobin 9.9 (L) 11.7 - 16.0 g/dL Hematocrit 30.8 (L) 35.0 - 47.0 % MCV 92.5 77.0 - 99.0 fL MCH 29.7 26.0 - 34.0 pg MCHC 32.1 30.5 - 36.0 % RDW 13.5 11.5 - 15.0 % Platelets 126 (L) 140 - 440 10*3/uL MPV 9.5 9.0 - 12.7 fL nRBC 0.0 0.0 - 2.0 /100 WBCs Neutrophils Relative 76.2 38.0 - 82.0 % Lymphocytes Relative 12.0 (L) 15.0 - 45.0 % Monocytes Relative 8.9 5.0 - 13.0 % Eosinophils Relative 2.4 0.0 - 6.0 % Basophils Relative 0.4 0.0 - 2.0 % Immature Grans % 0.1 0.0 - 2.0 % Neutrophils Absolute 6.0 1.8 - 7.5 10*3/uL Lymphocytes Absolute 0.9 (L) 1.0 - 4.3 10*3/uL Monocytes Absolute 0.7 0.0 - 0.9 10*3/uL Eosinophils Absolute 0.2 0.0 - 0.5 10*3/uL Basophils Absolute 0.0 0.0 - 0.2 10*3/uL Immature Grans Absolute 0.0 <0.1 10*3/uL Basic metabolic panel Collection Time: 04/23/25 3:25 AM Result Value Ref Range SODIUM 138 136 - 145 mmol/L POTASSIUM 4.6 3.5 - 5.1 mmol/L CHLORIDE 110 (H) 98 - 107 mmol/L CARBON DIOXIDE 23 23 - 31 mmol/L UREA NITROGEN 17 9 - 23 mg/dL CREATININE 0.68 0.57 - 1.11 mg/dL GLUCOSE 92 82 - 115 mg/dL CALCIUM 8.2 (L) 8.8 - 10.0 mg/dL ANION GAP 5 3 - 13 mmol/L eGFR >90.0 >60.0 mL/min/1.73m*2 Hepatic function panel Collection Time: 04/23/25 3:25 AM Result Value Ref Range BILIRUBIN, TOTAL 0.6 <1.2 mg/dL BILIRUBIN, DIRECT 0.3 <0.5 mg/dL ALKALINE PHOSPHATASE 56 40 - 150 U/L AST (SGOT) 47 (H) <34 U/L ALT 26 <30 U/L ALBUMIN 2.5 (L) 3.4 - 4.8 g/dL TOTAL PROTEIN 5.0 (L) 6.4 - 8.3 g/dL No results found for: "TSH" No components found for: "B12" No results found for: "VITD25" Reviewed: active problem list, medication list, social history, notes from last encounter, lab results Follow-up: will follow with you Crystal Marie MD 04/23/25 11:16 AM [1] Allergies Allergen Reactions Sulfa Antibiotics Itching and Swelling Other reaction(s): Other: See Comments Facial swelling Milk [Milk (Cow)] Other Abdominal bloating [2] Current Facility-Administered Medications: acetaminophen (Tylenol) tablet 650 mg, 650 mg, Oral, q6h PRN, 650 mg at 04/23/25802 OR acetaminophen (Tylenol) suppository 650 mg, 650 mg, Rectal, q6h PRN, Jacek Iniguez MD amLODIPine (Norvasc) tablet 2.5 mg, 2.5 mg, Oral, Daily, Jacek Iniguez MD, 2.5 mg at 04/23/25803 ARIPiprazole (Abilify) tablet 5 mg, 5 mg, Oral, Daily, Jacek Iniguez MD, 5 mg at 04/23/25803 buPROPion XL (Wellbutrin XL) 24 hr tablet 300 mg, 300 mg, Oral, Daily, Jacek Iniguez MD, 300 mg at 04/23/25803 enoxaparin (Lovenox) syringe 40 mg, 40 mg, SubCUTAneous, Daily, Latoya Polanco MD, 40 mg at 04/23/25802 FLUoxetine (PROzac) capsule 60 mg, 60 mg, Oral, Daily, Jacek Iniguez MD, 60 mg at 04/23/25802 lamoTRIgine (LaMICtal) tablet 50 mg, 50 mg, Oral, Daily, Jacek Iniguez MD, 50 mg at 04/23/25803 losartan (Cozaar) tablet 100 mg, 100 mg, Oral, Daily, Jacek Iniguez MD, 100 mg at 04/23/25802 methocarbamol (Robaxin) tablet 750 mg, 750 mg, Oral, q8h PRN, Jacek Iniguez MD, 750 mg at 04/21/25 0014 mometasone-formoterol (Dulera 200) 200-5 MCG/ACT inhaler 2 puff, 2 puff, Inhalation, BID, Jacek Iniguez MD, 2 puff at 04/23/25 0812 morphine injection 4 mg, 4 mg, IntraVENous, q3h PRN, Jacek Iniguez MD, 4 mg at 04/20/25 0138 naloxone (Narcan) injection 0.4 mg, 0.4 mg, IntraVENous, q5 min PRN, Jacek Iniguez MD ondansetron (Zofran) injection 4 mg, 4 mg, IntraVENous, q4h PRN, Jacek Iniguez MD, 4 mg at 04/22/25 1013 oxyCODONE (Roxicodone) immediate release tablet 5 mg, 5 mg, Oral, q6h PRN, Jacek Iniguez MD, 5 mg at 04/23/25 0803 polyethylene glycol (PEG) 3350 (Miralax) packet 17 g, 17 g, Oral, Daily PRN, Jacek Iniguez MD rosuvastatin (Crestor) tablet 20 mg, 20 mg, Oral, Nightly, Jacek Iniguez MD, 20 mg at 04/22/252057 [3] Past Medical History: Diagnosis Date AA (aortic aneurysm) (HCC) Anxiety Aspirin long-term use history Asthma Bipolar 1 disorder (HCC) Chronic kidney disease Depression Difficulty walking High blood pressure Lack of coordination Mitral valve insufficiency Muscle weakness Presence of intraocular lens Repeated falls Rhabdomyolysis Sleep apnea Suicidal ideations Traumatic subarachnoid hemorrhage without loss of consciousness (HCC) [4] Past Surgical History: Procedure Laterality Date CERVICAL SPINE SURGERY 03/02/2023 C3-C6 ANTERIOR CERVICAL DECOMPRESSION, FUSION HYSTERECTOMY THYROID SURGERY N/A half [5] Family History Problem Relation Name Age of Onset Cancer Mother No Known Problems Father [facility] 04-23-2025 Consult note Associated Order (s): IP CONSULT TO GERIATRICS [facility] Admission Date: 04/19/2025 Admission Status: INPATIENT Chief Complaint: fall Reason for Appointment Geriatrics consulted for Polypharmacy and falls Assessment & Plan Principal Problem: Closed nondisplaced intertrochanteric fracture of right femur, initial encounter ([facility]) Active Problems: Debility Acute pain due to trauma Bipolar 1 disorder ([facility]) At risk for delirium Debility -Contributing factors include: physical deconditioning, parkinsonism, polypharmacy, baseline poor balance -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 She saw Neurology for this in 2022. -Lives in an assisted living -Check orthostatics -consider checking vitamin D as outpatient -Physical Therapy and Occupational Therapy -planning for SNF for rehab prior to discharge back to assisted living. Planning on discharge today Acute Pain Due To Trauma -Could consider scheduling acetaminophen 1000 mg TID. Would check hepatic function before scheduling however -Agree with use of prn narcotic oxycodone for pain. Use lowest effective doses for breakthrough pain. -Consider stopping the prn robaxin unless she has specific muscle spasm complaints. Bipolar Disorder Reviewed her AL medication list: -Abilify 5 mg daily -Bupropion XL 300 mg daily -Prozac 60 mg daily -Lamotrigine 50 mg daily -Invega 39 mg IM monthly on the 6th of the month -Continue above psychiatric medication regimen. 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 Will stop At Risk for Delirium -Risk factors include: age, pain, recent hip fracture -Could use Melatonin nightly prn insomnia if necessary -Avoid sedating/anticholinergic medications -Encourage family visits -Encourage sleep hygiene -Minimize barriers to nutrition -Optimize sensory input and access to assistive devices where indicated -Encourage time up in chair - including at meals - as able -Unless contraindicated, encourage regular ambulation with assistance -D/c Ellsworth, restraints, IV lines, as able Subjective: HPI 74 y.o. year-old female with past medical history of Bipolar 1 Disorder, chronic kidney disease, asthma, hypertension, ascending aortic aneurysm, anxiety/depression who presented to hospital following a fall with right hip fracture I reviewed patient's chart, including H&P and multiple progress notes. The following is a summary. -Per H and P, she was standing in the bathroom and looking at the mirror when she fell. She reported chronic balance issues. -She underwent intramedullary nailing of right femur on 04/21/25. -She lives in an assisted living "[facility] She has been there for about three years. She ambulates short distances with a walker. Uses a wheelchair to get down to the dining room at her assisted living. She requires assistance with showering (washing hair and back) as well as putting shoes/socks CBC: hgb 9.9 BMP: chloride 110 Geriatrics ED screen: Do you (or your loved one) have problems with your memory that affect your (their) day to day activities or that you or your family notice most days?: No Do you (or loved one) live alone AND/OR Do you (they) need more help at home then you (they) have now or currently available?: No Have you (or loved one) been in the hospital in the last 3 months?: No Do you (or loved one) have trouble with your walking or balance? Or Have you (they) fallen recently?: Yes Do you (or loved one) take more than 5 medications or vitamins every day?: Yes When compared to others your (their) own age, are you (or loved one) in worse health?: No Total Score: 2 Quick Cognitive Screen (QCS): Nursing Delirium Screen (Nu-Desc): Nursing Delirium Symptom Checklist Total Score: 0 Conversation with patient: -She reports the fall occurred at her assisted living. She is supposed to ask for help before she goes to the restroom. However, she admits to not asking for help that time. She was standing in front of the mirror when she lost her balance and fell. She doesn't think she was dizzy at time of the fall. -Neuropathy: fingers -Vision: good. Wears glasses -History of medication-induced parkinsonism. She was told she should not change her psychiatric medications despite of this -Memory: she occasionally notices a memory slip - such as forgetting a single word. She typically usually recalls it -Mood: good -No smoking or alcohol use -Lives in an assisted living. They assist with IADLs and multiple ADLs. -She ambulates short distances with a walker. She is able to ambulate about half way to the dining room before using her wheelchair (someone follows along behind her with the wheelchair) Conversation with caregiver: Patient gave permission to contact Jenise. Attempted phone call to son Claudia but was unable to get through. [employer] planning assistant said he was unavailable I called patient's assisted living facility and spoke with nursing staff: -No major cognitive issues or behavioral issues at baseline -She does not have an order for prn clonazepam at her facility Advance Care Planning Healthcare Power of Spoon Maker: yes, son Jenise Allergies[1] Current Medications[2] Medical History[3] Surgical History[4] Social History Tobacco Use Smoking status: Never Smokeless tobacco: Never Substance Use Topics Alcohol use: Never Social History Social History Narrative Not on file Family History Family History[5] Family Status Relation Name Status Mother Father No partnership data on file Review of Systems Constitutional: Negative for chills and fever. HENT: Positive for rhinorrhea (chronic, allergies). Eyes: Negative for visual disturbance. Respiratory: Positive for cough (chronic, allergies) and shortness of breath (chronic, stable, asthma). Cardiovascular: Negative for leg swelling. Gastrointestinal: Negative for abdominal pain, constipation, diarrhea and nausea. Genitourinary: Negative for difficulty urinating and dysuria. Musculoskeletal: Positive for arthralgias. Negative for myalgias. Neurological: Positive for dizziness and weakness. Psychiatric/Behavioral: Negative for confusion and dysphoric mood. Functional Status Prior to Admission: (I: Independent, A: Assisted, D: Dependent) ADLs I A D Notes Bathing [] [x] [] Dressing [] [x] [] Toileting [] [x] [] Transfers [] [] [] Feeding [] [] [] Ambulation [] [x] [] Assistive devices: walker and wheelchair IADLs I A D Telephone [] [] [] Transportation [] [] [x] Shopping [] [] [x] Meal prep [] [] [x] Housework [] [] [x] Medications [] [] [x] Finances [] [x] [] Objective: BP 110/61 Pulse 76 Temp 36.4 C (97.6 F) (Temporal) Resp 16 Ht 5' (1.524 m) Wt 165 lb (74.8 kg) SpO2 94% BMI 32.22 kg/m Intake/Output Summary (Last 24 hours) at 04/23/2025 1116 Last data filed at 04/23/2025 0646 Gross per 24 hour Intake -- Output 750 ml Net -750 ml Wt Readings from Last 3 Encounters: 04/19/25 165 lb (74.8 kg) 12/17/23 160 lb (72.6 kg) 12/16/23 160 lb (72.6 kg) Physical Exam Constitutional: General: She is not in acute distress. Appearance: She is not ill-appearing. HENT: Head: Normocephalic and atraumatic. Cardiovascular: Rate and Rhythm: Normal rate and regular rhythm. Heart sounds: Murmur heard. No friction rub. No gallop. Pulmonary: Effort: Pulmonary effort is normal. Breath sounds: Normal breath sounds. No decreased breath sounds, wheezing, rhonchi or rales. Abdominal: General: There is no distension. Palpations: Abdomen is soft. Tenderness: There is no abdominal tenderness. There is no guarding or rebound. Musculoskeletal: Right lower leg: No edema. Left lower leg: No edema. Neurological: Mental Status: She is alert. Comments: Oriented to person, month, year, place Psychiatric: Attention and Perception: Attention normal. Mood and Affect: Mood normal. Affect is blunt. Labs and Imaging: Recent Results (from the past 24 hours) CBC auto differential Collection Time: 04/23/25 3:25 AM Result Value Ref Range Auto WBC 7.8 3.6 - 10.7 10*3/uL RBC 3.33 (L) 3.80 - 5.20 10*6/uL Hemoglobin 9.9 (L) 11.7 - 16.0 g/dL Hematocrit 30.8 (L) 35.0 - 47.0 % MCV 92.5 77.0 - 99.0 fL MCH 29.7 26.0 - 34.0 pg MCHC 32.1 30.5 - 36.0 % RDW 13.5 11.5 - 15.0 % Platelets 126 (L) 140 - 440 10*3/uL MPV 9.5 9.0 - 12.7 fL nRBC 0.0 0.0 - 2.0 /100 WBCs Neutrophils Relative 76.2 38.0 - 82.0 % Lymphocytes Relative 12.0 (L) 15.0 - 45.0 % Monocytes Relative 8.9 5.0 - 13.0 % Eosinophils Relative 2.4 0.0 - 6.0 % Basophils Relative 0.4 0.0 - 2.0 % Immature Grans % 0.1 0.0 - 2.0 % Neutrophils Absolute 6.0 1.8 - 7.5 10*3/uL Lymphocytes Absolute 0.9 (L) 1.0 - 4.3 10*3/uL Monocytes Absolute 0.7 0.0 - 0.9 10*3/uL Eosinophils Absolute 0.2 0.0 - 0.5 10*3/uL Basophils Absolute 0.0 0.0 - 0.2 10*3/uL Immature Grans Absolute 0.0 <0.1 10*3/uL Basic metabolic panel Collection Time: 04/23/25 3:25 AM Result Value Ref Range SODIUM 138 136 - 145 mmol/L POTASSIUM 4.6 3.5 - 5.1 mmol/L CHLORIDE 110 (H) 98 - 107 mmol/L CARBON DIOXIDE 23 23 - 31 mmol/L UREA NITROGEN 17 9 - 23 mg/dL CREATININE 0.68 0.57 - 1.11 mg/dL GLUCOSE 92 82 - 115 mg/dL CALCIUM 8.2 (L) 8.8 - 10.0 mg/dL ANION GAP 5 3 - 13 mmol/L eGFR >90.0 >60.0 mL/min/1.73m*2 Hepatic function panel Collection Time: 04/23/25 3:25 AM Result Value Ref Range BILIRUBIN, TOTAL 0.6 <1.2 mg/dL BILIRUBIN, DIRECT 0.3 <0.5 mg/dL ALKALINE PHOSPHATASE 56 40 - 150 U/L AST (SGOT) 47 (H) <34 U/L ALT 26 <30 U/L ALBUMIN 2.5 (L) 3.4 - 4.8 g/dL TOTAL PROTEIN 5.0 (L) 6.4 - 8.3 g/dL No results found for: "TSH" No components found for: "B12" No results found for: "VITD25" Reviewed: active problem list, medication list, social history, notes from last encounter, lab results Follow-up: will follow with you Crystal Marie MD 04/23/25 11:16 AM [1] Allergies Allergen Reactions Sulfa Antibiotics Itching and Swelling Other reaction(s): Other: See Comments Facial swelling Milk [Milk (Cow)] Other Abdominal bloating [2] Current Facility-Administered Medications: acetaminophen (Tylenol) tablet 650 mg, 650 mg, Oral, q6h PRN, 650 mg at 04/23/25802 OR acetaminophen (Tylenol) suppository 650 mg, 650 mg, Rectal, q6h PRN, Jacek Iniguez MD amLODIPine (Norvasc) tablet 2.5 mg, 2.5 mg, Oral, Daily, Jacek Iniguez MD, 2.5 mg at 04/23/25 08 ARIPiprazole (Abilify) tablet 5 mg, 5 mg, Oral, Daily, Jacek Iniguez MD, 5 mg at 04/23/25803 buPROPion XL (Wellbutrin XL) 24 hr tablet 300 mg, 300 mg, Oral, Daily, Jacek Iniguez MD, 300 mg at 04/23/25803 enoxaparin (Lovenox) syringe 40 mg, 40 mg, SubCUTAneous, Daily, Latoya Polanco MD, 40 mg at 04/23/25802 FLUoxetine (PROzac) capsule 60 mg, 60 mg, Oral, Daily, Jacek Iniguez MD, 60 mg at 04/23/25802 lamoTRIgine (LaMICtal) tablet 50 mg, 50 mg, Oral, Daily, Jacek Iniguez MD, 50 mg at 04/23/25 08 losartan (Cozaar) tablet 100 mg, 100 mg, Oral, Daily, Jacek Iniguez MD, 100 mg at 04/23/25 08 methocarbamol (Robaxin) tablet 750 mg, 750 mg, Oral, q8h PRN, Jacek Iniguez MD, 750 mg at 04/21/25 0014 mometasone-formoterol (Dulera 200) 200-5 MCG/ACT inhaler 2 puff, 2 puff, Inhalation, BID, Jacek Iniguez MD, 2 puff at 04/23/25 0812 morphine injection 4 mg, 4 mg, IntraVENous, q3h PRN, Jacek Iniguez MD, 4 mg at 04/20/25 0138 naloxone (Narcan) injection 0.4 mg, 0.4 mg, IntraVENous, q5 min PRN, Jacek Iniguez MD ondansetron (Zofran) injection 4 mg, 4 mg, IntraVENous, q4h PRN, Jacek Iniguez MD, 4 mg at 04/22/25 1013 oxyCODONE (Roxicodone) immediate release tablet 5 mg, 5 mg, Oral, q6h PRN, Jacek Iniguez MD, 5 mg at 04/23/25 0803 polyethylene glycol (PEG) 3350 (Miralax) packet 17 g, 17 g, Oral, Daily PRN, Jacek Iniguez MD rosuvastatin (Crestor) tablet 20 mg, 20 mg, Oral, Nightly, Jacek Iniguez MD, 20 mg at 04/22/252057 [3] Past Medical History: Diagnosis Date AA (aortic aneurysm) (HCC) Anxiety Aspirin long-term use history Asthma Bipolar 1 disorder (HCC) Chronic kidney disease Depression Difficulty walking High blood pressure Lack of coordination Mitral valve insufficiency Muscle weakness Presence of intraocular lens Repeated falls Rhabdomyolysis Sleep apnea Suicidal ideations Traumatic subarachnoid hemorrhage without loss of consciousness (HCC) [4] Past Surgical History: Procedure Laterality Date CERVICAL SPINE SURGERY 03/02/2023 C3-C6 ANTERIOR CERVICAL DECOMPRESSION, FUSION HYSTERECTOMY THYROID SURGERY N/A half [5] Family History Problem Relation Name Age of Onset Cancer Mother No Known Problems Father Ortho Consult Patient: Pily Barnes Date of : 1950 Acct: [id number] PCP: No primary care provider on file. Date of Admission: 04/19/2025 Date of Service: Pt seen/examined on 04/19/2025 Chief Complaint: right hip pain History Of Present Illness: 74 y.o. female who presents with right hip pain after a fall from standing in the bathroom of his assisted living facility. The patient was unable to get up and had to call for help. Denies significant pain besides right hip. Denies head trauma and loss of consciousness. Denies numbness and tingling in affected extremity. PMH of anxiety, asthma, CKD, HTN, mitral valve insufficiency, SAH. Lives in assisted living. Orthopaedic surgery history C3-[address] Mcgill. Patient said they do not know why they had it and never had any neck issues. She has chronic numbness in her small fingers and ring fingers bilaterally. Patient ambulation status: mild difficulty and ambulates with: walker and sometimes uses wheelchair. Antiplatelets/Anticoagulation includes: none. Hx from chart and/or Pt. Past Medical History: Medical History[1] Past Surgical History: Surgical History[2] Home Medications: Prior to Admission medications Medication Sig Start Date End Date Taking? Authorizing Provider albuterol 108 (90 Base) MCG/ACT inhaler INHALE TWO PUFFS BY MOUTH INTO THE LUNGS instructed EVERY 4 HOURS NEEDED FOR WHEEZING OR FOR SHORTNESS OF BREATH 02/22/22 Historical Provider, amLODIPine (Norvasc) 2.5 MG tablet Take 2.5 mg by mouth daily. 09/27/22 Historical Provider, ARIPiprazole (Abilify) 5 MG tablet Take 5 mg by mouth daily. 11/03/22 Historical Provider, MD Bosch Ellipta 100-25 MCG/ACT aerosol powder Inhale 1 puff daily. 11/05/22 Historical Provider, buPROPion XL (Wellbutrin XL) 300 MG 24 hr tablet Take 300 mg by mouth daily. 11/03/22 Historical Provider, Calcium + Vitamin D3 600-10 MG-MCG tablet Take 1 tablet by mouth daily. 600/400 10/20/22 Historical Provider, cholecalciferol (Vitamin D-3) 125 MCG (5000 UT) tablet Take 2,000 Units by mouth daily. Historical Provider, clonazePAM (KlonoPIN) 0.5 MG tablet Take 0.5 mg by mouth Daily as needed for anxiety. Historical Provider, famotidine (Pepcid) 20 MG tablet Take by mouth. Historical Provider, FLUoxetine (PROzac) 20 MG capsule Take 60 mg by mouth daily. 09/23/22 Historical Provider, fluticasone (Flonase) 50 MCG/ACT nasal spray Administer 2 sprays into each nostril Daily as needed for allergies. 02/22/22 Historical Provider, MD Blackwood Sustenna 39 MG/0.25ML suspension prefilled syringe Inject 39 mg into the shoulder, thigh, or buttocks every 30 (thirty) days. 09/23/22 Historical Provider, lamoTRIgine (LaMICtal) 25 MG tablet Take 50 mg by mouth daily. 11/07/22 Historical Provider, lisinopril 20 MG tablet Take 20 mg by mouth daily. 11/08/22 Historical Provider, Loratadine 10 MG capsule Take 10 mg by mouth daily. Historical Provider, Multiple Vitamin (High Potency Multivitamin) tablet Take 1 tablet by mouth daily. 09/27/22 Historical Provider, nystatin (Mycostatin) 057090 UNIT/GM powder Apply 1 Application topically 2 times daily. Under breasts Historical Provider, Omeprazole 20 MG tablet delayed-release 04/26/23 Historical Provider, Current Hospital Medications: Current Medications[3] Allergies: Sulfa antibiotics and Milk [milk (cow)] Social History: Social History Socioeconomic History Marital status: Spouse name: Not on file Number of children: Not on file Years of education: Not on file Highest education level: Not on file Occupational History Not on file Tobacco Use Smoking status: Never Smokeless tobacco: Never Vaping Use Vaping status: Never Used Substance and Sexual Activity Alcohol use: Never Drug use: Never Sexual activity: Not on file Other Topics Concern Not on file Social History Narrative Not on file Social Drivers of Health Financial Resource Strain: Low Risk (03/01/2022) Received from [facility] Overall Financial Resource Strain (CARDIA) Difficulty of Paying Living Expenses: Not hard at all Food Insecurity: No Food Insecurity (03/01/2022) Received from [facility] Hunger Vital Sign Worried About Running Out of Food in the Last Year: Never true Ran Out of Food in the Last Year: Never true Transportation Needs: No Transportation Needs (03/03/2023) PRAPARE - Transportation Lack of Transportation (Medical): No Lack of Transportation (Non-Medical): No Physical Activity: Not on file Stress: Not on file Social Connections: Not on file Intimate Partner Violence: Not At Risk (03/02/2023) Humiliation, Afraid, Rape, and Kick questionnaire Fear of Current or Ex-Partner: No Emotionally Abused: No Physically Abused: No Sexually Abused: No Housing Stability: High Risk (03/03/2023) Housing Stability Vital Sign Unable to Pay for Housing in the Last Year: No Number of Places Lived in the Last Year: 1 Unstable Housing in the Last Year: Yes Family History: Family History[4] Further Family History is noncontributory to this injury. REVIEW OF SYSTEMS: Review of Systems - General ROS: negative for - chills, fatigue, fever, malaise or night sweats Psychological ROS: negative Ophthalmic ROS: negative ENT ROS: negative for - headaches or sore throat Hematological and Lymphatic ROS: negative for - bleeding problems or blood clots Respiratory ROS: no cough, shortness of breath, or wheezing Cardiovascular ROS: no chest pain or dyspnea on exertion Gastrointestinal ROS: negative Musculoskeletal ROS: See HPI Neurological ROS: negative for - bowel and bladder control changes, gait disturbance or numbness/tingling All other systems reviewed and are negative PHYSICAL EXAM: BP 117/66 (BP Location: Left arm, Patient Position: Sitting) Pulse 63 Temp 36.6 C (97.9 F) (Oral) Resp 16 Ht 1.524 m (5') Wt 75.3 kg (165 lb 14.4 oz) SpO2 94% BMI 32.40 kg/m GENERAL APPEARANCE: Awake and oriented x3. No acute distress, except appropriate to injury. MOOD AND AFFECT: Calm appropriate to situation GAIT AND STATION: Patient is in bed and unable to ambulate secondary to known injury. REFLEXES: No clonus or Babinski. COORDINATION and BALANCE: Patient is grossly coordinated unable to ambulate secondary to known injury. Lymphadenopathy: none on examination of the affected extremity(s) Right Upper Extremity: -No obvious pain or deformity to inspection with normal joint range of motion, stability, and muscle strength except noted below -No TTP over clavicle, shoulder, humerus, elbow, forearm, wrist, hand, or fingers -TTP: nontender throughout extremity -Radial pulse palpable -SILT in radial/median/ ulnar nerve distributions -Motor + AIN/PIN/ulnar nerve functions -No Lymphedema -Skin intact except where noted below -Painless pROM at shoulder/elbow/wrist Left Upper Extremity: -No obvious pain or deformity to inspection with normal joint range of motion, stability, and muscle strength except noted below -No TTP over clavicle, shoulder, humerus, elbow, forearm, wrist, hand, or fingers -TTP: nontender throughout extremity -Radial pulse palpable -SILT in radial/median/ ulnar nerve distributions -Motor + AIN/PIN/ulnar nerve functions -No Lymphedema -Skin intact except where noted below -Painless pROM at shoulder/elbow/wrist Right Lower Extremity: -No obvious pain or deformity to inspection with normal joint range of motion, stability, and muscle strength except noted below. Extremity shortened and externally rotated. Skin over lateral hip is clean and dry without signs of wounds or breakdown. -No TTP over knee, tibia, lateral mal, medial mal, calc, midfoot, forefoot -TTP: hip -Pulse: DP Palpable -SILT in the superficial peroneal, deep peroneal, tibial, sural, saphenous nerve distributions -Motor function of tibialis anterior, extensor hallucis longus, and gactrocsoleus complex intact -No Lymphedema -Skin intact except where noted below -Painless pROM at knee/ankle - + logroll Left Lower Extremity: -No obvious pain or deformity to inspection with normal joint range of motion, stability, and muscle strength except noted below -No TTP over pelvis, hip, thigh, knee, tibia, lateral mal, medial mal, calc, midfoot, forefoot -TTP: Nontender throughout extremity -Pulse: DP Palpable -SILT in the superficial peroneal, deep peroneal, tibial, sural, saphenous nerve distributions -Motor function of quad, tibialis anterior, extensor hallucis longus, and gactrocsoleus complex intact -No Lymphedema -Skin intact except where noted below -Painless pROM at hip/knee/ankle Labs: CBC: Lab Results Component Value Date WBC 10.5 04/19/2025 RBC 4.49 04/19/2025 BMP: Lab Results Component Value Date GLUCOSE 93 04/19/2025 CO2 18 (L) 04/19/2025 BUN 20 04/19/2025 CREATININE 0.62 04/19/2025 CALCIUM 7.2 (L) 04/19/2025 PT/INR: Lab Results Component Value Date INR 1.0 04/19/2025 Type and Screen: Lab Results Component Value Date RH POS 04/19/2025 CRP: No results found for: "CRP" ESR: No results found for: SEDRATE HgBA1c: No components found for: LABA1C The above labs were reviewed by me. Radiology: The below images were independently reviewed and interpreted XR: Right hip: Right intertrochanteric femur fracture Pelvis: Right intertrochanteric femur fracture CT: Cervical spine: There is no acute fracture or dislocation of the cervical spine. There is anterior cervical discectomy and fusion plate and cages from C3-C6 with evidence of good osseous fusion. There is no spondylolisthesis noted. There is mild loss of normal cervical lordosis. Facet joints appear congruous bilaterally at all visualized levels of the cervical spine there is diffuse facet arthropathy throughout. There is no bony impingement on the cervical spinal canal. Chest/abdomen/pelvis: There is no acute fracture or dislocation of the thoracic spine. There is hyperkyphosis. There is no bony impingement on thoracic spinal canal. Facet joints appear congruous bilaterally throughout the thoracic spine and no spondylolisthesis is noted. There is no acute fracture or dislocation of the lumbar spine. There is grade 1 anterolisthesis of L4 on L5 and vacuum disc phenomenon at L4-5 and L5-S1. There is no bony impingement of the lumbar spinal canal maintenance of normal lumbar lordosis. Facet joints appear congruous bilaterally throughout the lumbar spine with diffuse facet arthropathy throughout. There is no acute fracture or dislocation of the bony pelvis. Pubic symphysis and bilateral SI joints do not appear widened. Bilateral femoral heads are reduced within the acetabulum. Right intertrochanteric femur fracture is again visualized. Femur: Acute comminuted intertrochanteric right femur fracture. No other acute fracture or dislocation of the femur. Radiology report reviewed. ASSESSMENT: 74 y.o. 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 Mershon Rush 04/21/25 0188 [1] Past Medical History: Diagnosis Date Anxiety Aspirin long-term use history Asthma Bipolar 1 disorder (HCC) Chronic kidney disease Depression Difficulty walking High blood pressure Lack of coordination Mitral valve insufficiency Muscle weakness Presence of intraocular lens Repeated falls Rhabdomyolysis Sleep apnea Suicidal ideations Traumatic subarachnoid hemorrhage without loss of consciousness (HCC) [2] Past Surgical History: Procedure Laterality Date CERVICAL SPINE SURGERY 03/02/2023 C3-C6 ANTERIOR CERVICAL DECOMPRESSION, FUSION HYSTERECTOMY THYROID SURGERY N/A half [3] No current facility-administered medications for this encounter. Current Outpatient Medications: albuterol 108 (90 Base) MCG/ACT inhaler, INHALE TWO PUFFS BY MOUTH INTO THE LUNGS instructed EVERY 4 HOURS NEEDED FOR WHEEZING OR FOR SHORTNESS OF BREATH, Disp: , Rfl: amLODIPine (Norvasc) 2.5 MG tablet, Take 2.5 mg by mouth daily., Disp: , Rfl: ARIPiprazole (Abilify) 5 MG tablet, Take 5 mg by mouth daily., Disp: , Rfl: Breo Ellipta 100-25 MCG/ACT aerosol powder , Inhale 1 puff daily., Disp: , Rfl: buPROPion XL (Wellbutrin XL) 300 MG 24 hr tablet, Take 300 mg by mouth daily., Disp: , Rfl: Calcium + Vitamin D3 600-10 MG-MCG tablet, Take 1 tablet by mouth daily. 600/400, Disp: , Rfl: cholecalciferol (Vitamin D-3) 125 MCG (5000 UT) tablet, Take 2,000 Units by mouth daily., Disp: , Rfl: clonazePAM (KlonoPIN) 0.5 MG tablet, Take 0.5 mg by mouth Daily as needed for anxiety., Disp: , Rfl: famotidine (Pepcid) 20 MG tablet, Take by mouth., Disp: , Rfl: FLUoxetine (PROzac) 20 MG capsule, Take 60 mg by mouth daily., Disp: , Rfl: fluticasone (Flonase) 50 MCG/ACT nasal spray, Administer 2 sprays into each nostril Daily as needed for allergies., Disp: , Rfl: Invega Sustenna 39 MG/0.25ML suspension prefilled syringe, Inject 39 mg into the shoulder, thigh, or buttocks every 30 (thirty) days., Disp: , Rfl: lamoTRIgine (LaMICtal) 25 MG tablet, Take 50 mg by mouth daily., Disp: , Rfl: lisinopril 20 MG tablet, Take 20 mg by mouth daily., Disp: , Rfl: Loratadine 10 MG capsule, Take 10 mg by mouth daily., Disp: , Rfl: Multiple Vitamin (High Potency Multivitamin) tablet, Take 1 tablet by mouth daily., Disp: , Rfl: nystatin (Mycostatin) 068501 UNIT/GM powder, Apply 1 Application topically 2 times daily. Under breasts, Disp: , Rfl: Omeprazole 20 MG tablet delayed-release, , Disp: , Rfl: [4] Family History Problem Relation Name Age of Onset Cancer Mother No Known Problems Father documented in this encounter [facility] 04-22-2025 Note PHYSICAL THERAPY [facility] Initial Evaluation Name/MRN: Pily Barnes ([id number]) Evaluation Date: 04/22/2025 Date of : 1950 Admission Date: 04/19/2025 3:31 PM Age: 74 y.o. Room/Bed: B1-157/B1-157 A Discharge Recommendation: Intermediate Facility Equipment Needed: (TBD at next level of care) Assessment IMPRESSION: Pt is a 74 y.o. female admitted 04/19 following fall resulting in intertrochanteric femur fx. Pt underwent R IMN by Dr. Beverly 04/21 and is WBAT RLE. Pt was previously requiring assist for functional mobility with FWW. Pt is currently requiring mod-max A x1 for bed mobility, max A to min A for sitting balance EOB. Pt is currently limited by weakness, pain and will benefit from acute skilled PT to address current deficits. Recommend SNF. Admitting Diagnosis: admitted 04/19 following fall resulting in intertrochanteric femur fx. Pt underwent R IMN by Dr. Beverly 04/21 Prognosis: fair Performance Deficits /Impairments: Increased Pain, Decreased Functional Mobility, Decreased Strength, Decreased Endurance, Decreased Balance, and Decreased Posture Decision Making: Medium Complexity Subjective Pt pleasant and agreeable to therapy session Pain: [place] Pain Ratin = Hurts even more Pain Location: RLE Past Medical History: Medical History[1] Past Surgical History: Surgical History[2] Admission Diagnosis: Patient Active Problem List Diagnosis Date Noted Closed nondisplaced intertrochanteric fracture of right femur, initial encounter ([facility]) 04/19/2025 Acute kidney injury ([facility]) 12/16/2023 Nausea vomiting and diarrhea 12/16/2023 Cervical stenosis of spinal canal 03/02/2023 Shortness of breath 11/18/2022 Syncope and collapse 11/18/2022 Traumatic subdural hematoma of neuraxis ([facility]) 11/18/2022 Recurrent falls 03/01/2022 Rhabdomyolysis 02/28/2022 S/P partial thyroidectomy 02/24/2022 Multiple thyroid nodules 06/15/2020 Allergic rhinitis 06/06/2020 Cardiomegaly 06/06/2020 Herpes simplex 06/06/2020 Hypertensive heart disease without congestive heart failure 06/06/2020 Mixed hyperlipidemia 06/06/2020 Moderate persistent asthma without complication 06/06/2020 Nonrheumatic aortic valve stenosis 06/06/2020 Patent foramen ovale 06/06/2020 Stage 3 chronic kidney disease ([facility]) 06/06/2020 Status post hysterectomy 06/06/2020 Urge incontinence of urine 06/06/2020 Generalized anxiety disorder 10/17/2019 Insomnia 08/06/2019 Vitamin D deficiency 08/06/2019 Suicide attempt ([facility]) 11/13/2017 Mild intermittent asthma 09/23/2017 Bipolar 1 disorder, depressed, severe ([facility]/HCC) ([facility]) 09/22/2017 Severe recurrent major depression with psychotic features ([facility]) 09/22/2017 Primary hypertension 09/20/2017 Closed displaced intertrochanteric fracture of right femur ([facility]) 04/19/2025 Medical Precautions: No active isolations Proper PPE donned/doffed in accordance with facility standards. Fall Risk: Norman Fall Risk Score: 60 (Medium Risk) Norman Fall Risk Score: 60 (High Risk) Precautions/Restrictions: Right LE Weight Bearing: Weight Bearing As Tolerated Family/Caregiver Present: son left prior to mobility Overall Cognitive Status: Exceptions - Following commands: follows one step commands with increased time and follows one step commands with repetition - Problem solving: assistance required to generate solutions, assistance required to implement solutions, assistance required to identify errors made, assistance required to correct errors made, and decreased awareness of errors - Initiation: requires cues for all - Sequencing: requires cues for all Overall Orientation Status: Oriented x4 Vision: wears glasses at all times and and are being used during the eval Hearing: normal Social/Functional History Patient admitted from [facility]. Assistive Equipment: front wheeled walker and wheelchair - manual Prior Level of Function Prior Level of ADL Function: Required Assist Prior Level of Mobility: Required Assist; Device: Front wheeled walker Prior Level of Transfers: Required Assist Objective Lower Extremity Assessment AROM: WFL Strength: Exceptions: grossly decreased in BLE noted with functional mobility Balance: Balance During Session: Posture: poor Sitting - Static: Min Assist, Max Assist Sitting - Dynamic: Min Assist, Max Assist Pt sits EOB ~3-4 minutes requiring initial max A x1 to achieve and maintain midline with max verbal cues. Pt demos heavy retro and L lateral lean- likely 2/2 pain avoidance. With increased time, pt able to progress to min A with PATIENT ADMITTING CLERK to maintain upright. Pt limited by fatigue. Bed Mobility: Supine to sit: Max Assist Sit to supine: Mod Assist Pt completes supine->sit requiring max A x1 for trunk and BLE management with step by step verbal cues with increased time and effort to complete with fair carryover of cues. Pt returns to supine requiring mod A x1 for BLE management into bed with cues provi (more content not included)... [facility] 04-22-2025 Note Referral placed to [facility] via [facility] per TCC request. Await review and response regarding ability to accept. [facility] notified. [facility] 04-22-2025 Progress note Formatting of t his note might be different from the original. Referral placed to [facility] via [facility]port per TCC request. Await review and response regarding ability to accept. [facility] notified. [facility] 04-22-2025 Note Hospitalist Progress Note 04/22/2025 [phone]: Please page me ([phone]) for patient care issues. [phone]: Please page [facility] Hospitalist for any issues. Subjective: Admit Date: 04/19/2025 PCP: No primary care provider on file. Room#: B1-157/B1-157 A Pily Barnes is a 74 y.o. female who presents with Closed nondisplaced intertrochanteric fracture of right femur, initial encounter ([facility]) Interval History: 74-year-old female patient is admitted with a fall and the right hip fracture. She is on bedrest and orthopedic service is consulted They recommended IM nailing of the right femur. She is lying down, complains pain is tolerated well she is talking to her son who is at the bedside. Discussed with her about DVT prophylaxis for hip fracture with Lovenox.. She had a history of subdural hematoma, but she is not sure when it was, and was not definitely acute. Ellsworth catheter is out when she is voiding Denies chest pain, sob, abdominal pain, nausea, vomiting, diarrhea, constipation, fevers, or chills. Adult diet Regular 24HR INTAKE/OUTPUT: Intake/Output Summary (Last 24 hours) at 04/22/2025 1159 Last data filed at 04/22/2025 0645 Gross per 24 hour Intake 5094.33 ml Output 1100 ml Net 3994.33 ml LABS: CBC: Recent Labs 04/19/25 1722 04/21/25 0028 04/22/25 0058 WBC 10.5 8.7 9.1 RBC 4.49 4.16 3.84 HGB 13.5 12.3 11.4* HCT 40.6 38.6 35.3 MCV 90.4 92.8 91.9 RDW 13.3 13.5 13.3 PLT 165 137* 134* BMP: Recent Labs 04/19/25 1722 04/21/25 0028 04/22/25 0058 NA 141 139 137 K 3.2* 4.7 4.7 CL 116* 112* 109* CO2 18* 21* 22* BUN 20 16 14 CREATININE 0.62 0.74 0.75 GLUCOSE 93 144* 158* CALCIUM 7.2* 8.6* 8.5* ANIONGAP 7 6 6 LIVER PROFILE:No results for input(s): "AST", "ALT", "BILITOT", "ALKPHOS", "PROT" in the last 72 hours. No lab exists for component: LABALBU PT/INR: Recent Labs 04/19/25 1722 PROTIME 10.4 INR 1.0 CARDIAC ENZYMES: No results for input(s): "TROPONINI" in the last 72 hours. Procalcitonin: No results found for: "PROCAL" @RISRSLTSPECIALTY@ Objective: Vitals: BP 133/62 (BP Location: Right arm, Patient Position: Sitting) Pulse 73 Temp 36.8 ?C (98.2 ?F) (Temporal) Resp 16 Ht 5' (1.524 m) Wt 165 lb (74.8 kg) SpO2 100% BMI 32.22 kg/m? Pulse Ox: SpO2 Av.9 % Min: 89 % Max: 100 % Supplemental O2: O2 Flow Rate (L/min): 4 L/min 04/22/2025 General appearance: Awake alert oriented x 3, appears to be in mild distress Cardiovascular: S1, S2, regular rhythm, no murmurs gallops or rubs Respiratory: Diminished breath sounds bilaterally and no wheezing or rhonchi abdomen: Benign, positive bowel sounds, soft, nontender Musculoskeletal: Right hip incision with postop dressing and no calf tenderness skin: No rash or lesions Neurological: Awake alert oriented x 3, no acute motor or sensory deficits Medications: Continuous Meds[1] Scheduled Meds[2] PRN Meds[3] Assessment Fall with right hip fracture-status post right femur fracture and right hip IM nailing postop day 1 Acute blood loss anemia with hemoglobin of 11.4 Hypokalemia-resolved potassium Chronic problems Asthma-albuterol as needed. Encourage incentive spirometry Ascending aortic aneurysm with no size change compared to the prior imaging, outpatient follow-up Incomplete left bundle branch block-echo reviewed in Care Everywhere shows that her ejection fraction is normal Hypertension-continue losartan and amlodipine Hyperlipidemia-on statin Depression-on Prozac and bupropion Parkinsonian symptoms-not on any medication Thyroid nodule on the right side-needs outpatient follow-up Plan Reviewed CBC BMP ordered CBC BMP in a.m. Will need Lovenox for DVT prophylaxis and will discuss with primary service Replace potassium Discussed with TCC about discharge planning, will need placement to retirement facility -am labs, replace lytes prn -increase activity Diet Adult diet Regular DVT Prophylaxis [] Lovenox, [] Heparin, [x] SCDs, [] Ambulation [] Already on Anticoagulation[] ASA bid per prtho service GI Prophylaxis [] PPI, [] H2 Elena, [] Carafate, [] Diet/Tube Feeds Code Status DNR-CCA Disposition Patient requires continued admission due to right femur fracture MDM [] Low, [] Moderate,[x] High Patient's risk as above Total time spent (which include face to face and non face to face encounters) : 55 minutes Toxic drug monitoring/narrow therapeutic index drug monitoring : # Drug name : Morphine # Route administered : Intravenous # Method of monitoring : Daily BMP and physiological blood pressure monitoring Extended Emergency Contact Information Primary Emergency Contact: Claudia Barnes Relation: Son Secondary Emergency Contact: Nathanael Barnes Relation: Son Advance Directive: DNR-CCA Discharge planning: To retirement facility [facility] (more content not included)... [facility] 04-22-2025 Progress note Formatting of t his note might be different from the original. Care Managment Initial Assessment Date: 04/22/2025 Patient Name: Pily Barnes : 1950 Patient Information Source of Information: Patient, Patient Metal Melter Name/Contact Information: mina Huffman Cognition/Language: WFL - Within Functional Limits Permission given to speak with patient digital sales representative/caregiver as indicated: Yes Confirmation of Payer with patient/family: Yes Payer Name: [facility] Medicare [place]: No Confirmation of Primary Care Physician: Confirmed PCP Name: Dr. Mckee from [facility] I Seen in last 2 years?: Yes Primary Caregiver: ([facility] attendants assist with ADLS/Sons assist with Financials/HCPOA) If assistance needed, confirmed caregiver ready, willing and able to care for patient at discharge: Confirmed with: Living Arrangements Current Residence: Number of Floors 1 Number of Entry Steps: 1 Bed/Bath Levels: Both first floor Facility: Assisted Living Facility Name: [facility] Plan to Return: Lives with: Alone Support Systems: Children, Comments (Other) (attendants at [facility]) Activities of Daily Living Ambulation: Assistance (walker short dist. to wheelchair) Bathing/Dressing: Assistance (pt requires assist with hair and back / Socks and shoes) Elimination/Continence/Toileting: Assistance (depends) Feeding: Independent Who Assists with Activities of Daily Living: [facility] staff Instrumental Activities of Daily Living Prescription Coverage: Yes Pharmacy Used: [facility] Medication Management: (nursing administers medications) Transportation/Shopping: Assistance Provider Transportation/Shopping Assistance Provider Name: family/ [facility] Transportation Mode: Car Needs Assistance with Transportation at Discharge: Yes Meal Preparation: Assistance Provider Meal Prep Assistance Provider Name: [facility] staff Laundry/Cleaning: Assistance Provider Laundry/Cleaning Assistance Provider Name: [facility] Staff/Family Finances/Bill Paying: Assistance Provider Finances/Bill Payer Assistance Provider Name: reynaldo Communication: Independent Types of Care Services/Equipment Utilized Care Services: Dialysis Type: NA Durable Medical Equipment: Walker, Wheelchair (standard or power) DME Provider: owns and facility based Patient's Goal/Discharge Plan Patient expects to be discharged to: Discharge Planning Actions: Continue to follow, Intermediate Facility referral indicated [place] choice: [place] of choice discussed, Choice list provided Patient's Choice Rights and [employer] and Collaborative Relationships Disclosed as Indicated for Post-Acute Care: Yes Interdisciplinary Team Engagement: PT/OT, Home Health Care Social Work Referral for: Additional Information: Pt admitted to hospital s/p slip and fall in bathroom of [facility]. Diagnosed via x ray/CT w acute R IT femur fracture. S/p surgical intervention 04/21/[address] Carlos Beverly. Underwnt IM nailing w general anesthesia. Ellsworth removed and pt voiding per nursing. CM met with pt and her son Nathanael at bedside. Nathanael assisting with ordering pt's lunch. Pt pleasant talkative answered most of the questions during IA. CM did introduce self and role. Pt reports being at [facility] for aprox. 3 years. Pt ambulates with walker short distances and transitions to when ambulating to dinning room twice a day. Pt reports she needs assist for hair washing and her back. Assist needed also for application of socks and shoes. Insurance verified [facility] Medicare and pt follows with Dr. Mckee at [facility] HCPOA is Claudia/Jenise Barnes. Therapy recommendations reviewed and SNF list presented to pt and sonmegan. CM tasked SKIP TRACER to place referrals to pt and family selections: [facility] 2nd and [facility] 3rd. Awaiting acceptance. DCP: SNF when accepted and approved. CM following. Angel Luis Matos RN [facility] 04-21-2025 Note Patient: Pily miller Procedure Summary Date: 04/21/25 Room / Location: [address] Operating Room Anesthesia Start: 1335 Anesthesia Stop: 1518 Procedure: RIGHT ORIF, FRACTURE, FEMUR, INTERTROCHANTERIC, WITH INTRAMEDULLARY IMPLANT INSERTION (Right: Hip) Diagnosis: Closed displaced intertrochanteric fracture of right femur, initial encounter ([facility]) Surgeons: Rolando Beverly MD Responsible Provider: TIFFANIE Rivers CRNA Anesthesia Type: general, regional ASA Status: 3 Anesthesia Type: general, regional Vitals Value Taken Time BP 127/74 04/21/25 15:16 Temp 36.8 ?C (98.2 ?F) 04/21/25 15:10 Pulse 81 04/21/25 15:19 Resp 18 04/21/25 15:19 SpO2 95 % 04/21/25 15:19 Vitals shown include unfiled device data. Anesthesia Post Evaluation Patient location during evaluation: PACU Patient participation: waiting for patient participation Level of consciousness: sleepy Pain management: satisfactory to patient Airway patency: patent Dental Injury: no Cardiovascular status: acceptable, blood pressure returned to baseline and hemodynamically stable Respiratory status: acceptable and spontaneous ventilation Hydration status: euvolemic Nausea/Vomiting: controlled No notable events documented. Patient can be discharged once all PACU criteria has been met. [facility] 04-21-2025 Note Patient: Pily miller Procedure Summary Date: 04/21/25 Room / Location: [address] Operating Room Anesthesia Start: 5 Anesthesia Stop: 8 Procedure: RIGHT ORIF, FRACTURE, FEMUR, INTERTROCHANTERIC, WITH INTRAMEDULLARY IMPLANT INSERTION (Right: Hip) Diagnosis: Closed displaced intertrochanteric fracture of right femur, initial encounter ([facility]) Surgeons: Rolando Beverly MD Responsible Provider: Amy Archuleta APRN - NETWORK SYSTEMS ADMINISTRATOR Anesthesia Type: general, regional ASA Status: 3 Anesthesia Type: general, regional Vitals Value Taken Time BP 127/74 04/21/25 15:16 Temp 36.8 ?C (98.2 ?F) 04/21/25 15:10 Pulse 82 04/21/25 15:18 Resp 17 04/21/25 15:18 SpO2 95 % 04/21/25 15:18 Vitals shown include unfiled device data. Anesthesia Post Evaluation Patient participation: complete - patient cannot participate Level of consciousness: sleepy Pain management: satisfactory to patient Multimodal analgesia pain management approach Airway patency: patent Two or more strategies used to mitigate risk of obstructive sleep apnea Respiratory status: acceptable Cardiovascular status: acceptable Hydration status: acceptable No notable events documented. MIPS #430 PONV Patient received an inhalational anesthetic (4554F) Patient exhibits three or more risk factors for PONV (4556F) Patient received at leaset 2 prophylactic Rx PONV anti-emtic agents of different classes preop and/or intraop (G9775) MIPS # 424 Perioperative Temperature Management Anesthesia time was 60 minutes or longer (4255F) Anesthesai administered was General (inhalational or TIVA) or Neuraxial block (X0424) At least one body temperature greater than 95.8F/35.5C achieved within the 30 mins immediately prior to or the 15 minutes immediately following anesthesia end time (G9771) MIPS #477 Multimodal Pain Management Not emergent case Patient was administered multimodal pain management (two or more drugs and/or interventions excluding systemic opioids) in the periopeartive period occurring at some time between 6 hours prior to anesthesia start time until discharged from PACU (G2148) MIPS #404 Anesthesiology Smoking Abstinence The patient is not a current smoker (e.g. cigarette, cigar, pipe, e-cigarette/vaping/marijuana) If no stop here (XX404) I completed my handoff to the receiving clinician during which we: 1. Identified the patient 2. Identified the responsible provider 3. Reviewed the pertinent medical history 4. Discussed the surgical course 5. Reviewed intra-op anesthesia management and issues during anesthesia 6. Set expectations for post-procedure period 7. Allowed opportunity for questions and acknowledgement of understanding. [facility] 04-21-2025 Note Airway Date/Time: 04/21/2025 1:42 PM Reason: scheduled Airway not difficult General Information and Staff Patient location during procedure: Procedural Resident/NETWORK SYSTEMS ADMINISTRATOR: Amy Archuleta APRN - NETWORK SYSTEMS ADMINISTRATOR Performed: SRNA Patient Condition Indications for airway management: anesthesia Sedation level: Asleep Final Airway Details Preoxygenated: yes Final airway type: endotracheal airway Successful airway: ETT Cuffed: yes Successful intubation technique: direct laryngoscopy Adjuncts used in placement: cricoid pressure and intubating stylet Endotracheal tube insertion site: oral Blade: Clark Blade size: #3 ETT size (mm): 7.0 Cormack-Lehane Classification: grade IIa - partial view of glottis Placement verified by: capnometry Measured from: lips ETT to lips (cm): 21 Number of attempts at approach: 1 [facility] 04-21-2025 Note Peripheral Block Time Out: 04/21/2025 1:00 PM Patient location during procedure: pre-op Start time: 04/21/2025 1:05 PM End time: 04/21/2025 1:10 PM Reason for block: at surgeon's request and post-op pain management Staffing Performed: NETWORK SYSTEMS ADMINISTRATOR Resident/NETWORK SYSTEMS ADMINISTRATOR: TIFFANIE Schultz CRNA Preanesthetic Checklist Completed: patient identified, IV checked, site marked, risks and benefits discussed, surgical consent and timeout performed Region: Lower Extremities Primary: Malachi Peripheral Block Patient position: supine Prep: ChloraPrep Patient monitoring: heart rate, continuous pulse ox, color television console monitor and continuous capnometry O2: Nasal cannula Laterality: right Injection technique: single-shot Guidance: ultrasound guided -image retained in chart, tip of the needle identified by ultraound during injection. Local infiltration: lidocaine 2% Dose: 5 mL Needle Needle: 21G X 110 mm Additional Notes 04/21/2025 1:05 PM Assessment Injection assessment: negative aspiration for heme, no paresthesia on injection, incremental injection, local visualized surrounding nerve on ultrasound and transient paresthesias Heart rate change: no Slow fractionated injection: yes Required Documentation: Relevant anatomy identified (Nerves, Vessels, Muscles), Negative for blood on aspiration, Local anesthetic injected incrementally with intermittent aspiration every 5 mL, Normal resistance with injection, Local anesthetic spread visualized around nerves or plane., No EKG changes noted, No symptoms of toxicity and No paresthesias reported by patient during injectionMedications hrwAFRLFtlktr-qkyrvlhcott-uusagzur ine (TAP) syringe - Injection 20 mL - 04/21/2025 1:05:00 PM [facility] 04-21-2025 Procedure note Images from the original note were not included. [facility] OR [address] [place] [id number] Dept: [phone] Operative Report Patient Name: Pily Barnes Date of : 1950 Date of Surgery: 04/21/25 Pre-operative Diagnosis: Right intertroch femur fracture Post-operative Diagnosis: Same Procedure: Intramedullary Nailing Right Femur Components used: [employer] Intertan IMN, 10 mm diameter X 18 cm length, 125 degree neck angle Anesthesia: general Surgeon: Rolando Beverly MD Assistants: tong [email or web address] Estimated Blood Loss: 50 Complications: None Specimens: No Operative findings: anatomic reduction. History of present illness: I met with Pily in the preoperative area prior to the procedure and discussed the surgical plan once again and answered all of her questions related to the procedure and the expected post-operative course. The risks of surgery were discussed including but not limited to the risks of medications given for surgery, the risk of blood loss during and after surgery that can lead to the need for blood products in certain situations, infection, damage to normal structures that can lead to regional intermodal truck driver problems of pain or dysfunction, wound healing complications, the possibility of nonunion, malunion and late or chronic pain were also discussed. In addition potentially life threatening complications at the time of surgery and after surgery were discussed including but not limited to deep vein thrombosis, pulmonary embolism, myocardial infarction, stroke and . I initialed her Rightlower extremity and signed her consent form. Operative report: she was then taken to the operating room. A general anesthetic was then given by the anesthesia staff and an endotracheal tube was placed by the anesthesia staff. At all times during the operative procedure the patient's head neck and airway were protected by the anesthesia staff. The patient was then transferred to the fracture table. Care was taken to identify and pad all bony prominences. Perineal post was place and the feet were placed in the fracture table boots and secured. The upper extremities were padded and positioned. Closed reduction of the fracture was then accomplished utilizing the fracture table and verified on fluroscopic imaging in AP, oblique and lateral planes. The Right lower extremity was then prepped and draped in the usual orthopedic sterile fashion. A surgical timeout was then performed with the patient's identification, the procedure to be performed being reviewed, verification that the patient had received preoperative antibiotics, and verification of the correct surgical side. This timeout was performed by myself, the circulating room nurse and the anesthesia staff. The patient's ASA was verified by the nurse audit mgr and the anesthesia staff. Fire risk was assessed. A 3.2 mm threaded guide pin was then placed through the skin proximal to the greater trochanter and advanced until it was centered just medial to the tip of the greater trochanter on the AP fluroscopic view and was centered midway between the anterior and posterior edges of the greater trochanter on the lateral view. When the position of the pin was verified it was advanced through the cortex and taken to the level of the lesser trochanter. Its intramedullary position was verified on AP and lateral fluroscopic images. The skin was then incised longitudinally around the pin and a soft tissue guide was advanced through the incision until it rested on the greater trochanteric tip. The proximal reamer was then placed over the guide pin and proximal reaming was carried out to the level of the lesser trochanter. The 10x18 125 neck ankle nail was then place. The outer proximal nail guide was then centered with respect to the head, neck and shaft of the femur on the lateral fluroscopic view. The guide sleeve for the lag/compression screw was placed through an incision in the lateral thigh and advanced until it rested on the lateral cortex of the femur. A 3.2 mm threaded guide pin was then advanced through the guide sleeve until it rested with the center of the femoral head subchondral bone on both the AP and lateral fluroscopic views. The guide pin was then measured to determine the length of the lag screw and compression screw. Once position of the pin was verified to be correct the compression screw slot was drilled and the anti-rotation bar was placed. Reaming was then carried out over the guide pin through the lag screw portion of the sleeve. Once reaming was complete the lag screw was placed over the guide pin and advanced until it was fully seated. The anti-rotation bar was then removed and the compression screw was placed and once engaged the fracture was compressed as verified on fluroscopic images. Jbu-Cmka-Kzifksvk was felt to be less than 25 mm on ap/lat images. Using the out head up operator a distal locking screw was placed in the static hole. Blunt dissection was carried down to the outer cortex of the distal femur and drilling and measuring through a distal locking hole was accomplished. A 5mm locking screw was then placed. Its position was verified on fluroscopic imaging on AP, oblique and lateral planes. The incisions were then thoroughly irrigated with copious amounts of sterile saline. The subcutaneous tissues were closed with 2-0 vicryl and the skin with milton. Dry sterile dressing were applied. The patient was then transferred to her hospital bed, awakened from her anesthetic and then transported to the recovery room in stable condition. Post op plan: WBAT dvt proph per primary or ASA fx 4 wks 24hrs abx Signed by: Rolando Beverly MD, [facility] 04-21-2025 Procedure note Date: 04/21/2025 Location: [facility] OR Name: Pily Barnes, : 1950, Diagnosis Pre-op Diagnosis * Closed displaced intertrochanteric fracture of right femur, initial encounter ([facility]) [S72.141A] Post-op Diagnosis * Closed displaced intertrochanteric fracture of right femur, initial encounter ([facility]) [S72.141A] Procedures RIGHT ORIF, FRACTURE, FEMUR, INTERTROCHANTERIC, WITH INTRAMEDULLARY IMPLANT INSERTION [id number] - [place] INTER/KS/SUBTRCHNTRIC FEM FX IMED IMPLTSCREW Surgeons * Rolando Beverly - Primary Procedure Summary Anesthesia: General ASA: III Estimated Blood Loss: 50mL Drains: Urethral Catheter (Active) Catheter Indications Short-term following a surgical procedure (i.e. Urological or Gynecological) or active irrigation 04/20/252035 Site Assessment Clean;Skin intact 04/20/252035 Collection Container Standard drainage bag 04/20/252035 Securement Method Securing device 04/20/252035 Catheter Best Practices Drainage tube clipped to bed;Catheter secured to thigh;Tamper seal intact;Bag below bladder;Bag not on floor;Lack of dependent loop in tubing;Drainage bag less than half full 04/20/252035 Catheter Status Draining 04/20/252035 Output (mL) 700 mL 04/21/25 0600 Implants Type Name Action Serial No. Nail NAIL INTERTAN 10S [id number] [id number] - [id number] Implanted Screw KIT SCR 95MM 4.5MM INTERTAN - [id number] Implanted Screw SCREW BN 5MM 30MM TRGN FEM - [id number] Implanted Staff: Switching Operator: Ranjeet Chappell RN Physician Installations Inspector: Sherry Enriquez PA-C Prescription Benefit Specialist: Beto Diallo, RT (R) Relief Switching Operator: Chela Soliz RN Scrub Person: Librado Paredes Overlock Waistline Joiner: Cee Carrillo Findings: See op note Complications: None; patient tolerated the procedure well. Specimens Collected: No specimens collected during this procedure. Wound Class: Class I: Clean Blood Products: None Prophylactic Antibiotics: Procedure appropriate prophylactic antibiotic(s) given within 1 hour of surgical incision (two hours if receiving Vancomycin or flouroquinolone) -Operative plans: No further plans for surgery -Weight bearing: RLE: WBAT LLE: WBAT RUE: WBAT LUE: WBAT -Range of motion parameters: ROM as tolerated -Immobilization: No immobilization needed -Antibiotics: 24 hours of post op antibiotics. -Dressings: Keep dressings clean dry and intact for 5 days post operatively, then ok to leave open to air if incision is without drainage. -Other: None -Diet: no restrictions from ortho standpoint -Labs: CBC & BMP x 2 days post op -PT/OT -PT recommended outpatient/post discharge?: Yes, for basic ADLs -Ice & elevate -Medical management, dvt ppx and pain control per primary -DVT ppx recommended?: Yes, 30 days of post operative DVT ppx recommended, orthopedics recommends aspirin 81mg BID, but defer to primary team -Follow-up with Dr Beverly in 2 weeks -Ortho to follow. Cosigned by Rolando Beverly MD at 04/22/2025 6:43 AM EDT [facility] Phone: 04-21-2025 Note Hospitalist Progress Note 04/21/2025 [phone]: Please page me ([phone]) for patient care issues. [phone]: Please page [facility] Hospitalist for any issues. Subjective: Admit Date: 04/19/2025 PCP: No primary care provider on file. Room#: B1-157/B1-157 Hai Barnes is a 74 y.o. female who presents with Closed nondisplaced intertrochanteric fracture of right femur, initial encounter ([facility]) Interval History: 74-year-old female patient is admitted with a fall and the right hip fracture. She is on bedrest and orthopedic service is consulted They recommended IM nailing of the right femur. She is somewhat lethargic but answers questions, complains of right hip pain Denies chest pain, sob, abdominal pain, nausea, vomiting, diarrhea, constipation, fevers, or chills. NPO diet without enteral medications 24HR INTAKE/OUTPUT: Intake/Output Summary (Last 24 hours) at 04/21/2025 1328 Last data filed at 04/21/2025 0600 Gross per 24 hour Intake 827.09 ml Output 1500 ml Net -672.91 ml LABS: CBC: Recent Labs 04/19/25 1722 04/21/25 0028 WBC 10.5 8.7 RBC 4.49 4.16 HGB 13.5 12.3 HCT 40.6 38.6 MCV 90.4 92.8 RDW 13.3 13.5 PLT 165 137* BMP: Recent Labs 04/19/25 1722 04/21/25 0028 NA 141 139 K 3.2* 4.7 CL 116* 112* CO2 18* 21* BUN 20 16 CREATININE 0.62 0.74 GLUCOSE 93 144* CALCIUM 7.2* 8.6* ANIONGAP 7 6 LIVER PROFILE:No results for input(s): "AST", "ALT", "BILITOT", "ALKPHOS", "PROT" in the last 72 hours. No lab exists for component: LABALBU PT/INR: Recent Labs 04/19/251721 PROTIME 10.4 INR 1.0 CARDIAC ENZYMES: No results for input(s): "TROPONINI" in the last 72 hours. Procalcitonin: No results found for: "PROCAL" @RISRSLTSPECIALTY@ Objective: Vitals: BP 150/84 Pulse 72 Temp 37.6 ?C (99.6 ?F) (Temporal) Resp 16 Ht 5' (1.524 m) Wt 165 lb (74.8 kg) SpO2 93% BMI 32.22 kg/m? Pulse Ox: SpO2 Av.3 % Min: 93 % Max: 95 % Supplemental O2: O2 Flow Rate (L/min): 2 L/min 04/21/2025 General appearance: Awake alert oriented x 3, appears to be in mild distress Cardiovascular: S1, S2, regular rhythm, no murmurs gallops or rubs Respiratory: Diminished breath sounds bilaterally and no wheezing or rhonchi abdomen: Benign, positive bowel sounds, soft, nontender Musculoskeletal: Right hip incision with postop dressing and no calf tenderness skin: No rash or lesions Neurological: Awake alert oriented x 3, no acute motor or sensory deficits Medications: Continuous Meds[1] Scheduled Meds[2] PRN Meds[3] Assessment Fall with right hip fracture-status post right femur fracture and right hip IM nailing Monitor for acute blood loss anemia Hypokalemia-replace potassium Chronic problems Asthma-albuterol as needed. Encourage incentive spirometry Ascending aortic aneurysm with no size change compared to the prior imaging Incomplete left bundle branch block-echo reviewed in Care Everywhere shows that her ejection fraction is normal Hypertension-continue losartan and amlodipine Hyperlipidemia-on statin Depression-on Prozac and bupropion Parkinsonian symptoms-not on any medication Thyroid nodule on the right side-needs outpatient follow-up Plan Reviewed CBC BMP ordered CBC BMP in a.m. Will need Lovenox for DVT prophylaxis and will discuss with primary service Replace potassium Await PT and OT evaluation for possible placement needs -am labs, replace lytes prn -increase activity Diet NPO diet without enteral medications DVT Prophylaxis [] Lovenox, [] Heparin, [x] SCDs, [] Ambulation [] Already on Anticoagulation[] ASA bid per prtho service GI Prophylaxis [] PPI, [] H2 Elena, [] Carafate, [] Diet/Tube Feeds Code Status DNR-CCA Disposition Patient requires continued admission due to right femur fracture MDM [] Low, [] Moderate,[x] High Patient's risk as above Total time spent (which include face to face and non face to face encounters) : 55 minutes Toxic drug monitoring/narrow therapeutic index drug monitoring : # Drug name : Morphine # Route administered : Intravenous # Method of monitoring : Daily BMP and physiological blood pressure monitoring Extended Emergency Contact Information Primary Emergency Contact: Claudia Barnes Relation: Son Secondary Emergency Contact: Nathanael Barnes Relation: Son Advance Directive: DNR-CCA Discharge planning: To retirement facility Latoya Polanco MD Division of Hospitalist Medicine Inpatient Medical Services/[facility] [1] dextrose 5 % and sodium chloride 0.9 % with KCl 20 mEq, 125 mL/hr, Last Rate: 125 mL/hr (04/21/25 0932) [2] amLODIPine, 2.5 mg, Oral, Daily ARIPiprazole, 5 mg, Oral, Daily buPROPion XL, 300 mg, Oral, Daily FLUoxetine, 60 mg, Oral, Daily lamoTRIgine, 50 mg, Oral, Daily losartan, 100 mg, Oral, Daily mometasone-formoterol, 2 puff, Inhalation, BID rosuvasta (more content not included)... [facility] 04-21-2025 Nurse Note Warm blankets applied. BP 168/85 81 93% on 2L [facility] 04-21-2025 Nurse Note Pt states nausea is better. 168/90 81 94% on 2L. Sons at bedside [facility] 04-21-2025 Hospital Discharge instructions Tanesha Stahlnabil - 04/21/2025 1:12 PM EDT Images from the original note were not included. Dr. Rolando Beverly Adult Hip and Knee Reconstruction [phone] Total Hip Discharge Instruction Physical Therapy Physical Therapy should be arranged for you prior to your discharge. Therapy should begin 1 or 2 days after surgery and continue 1-3 times a week for a month. Do the exercises at home on the -days you do not see a therapist. Dressing Your wound will be covered by a dressing after surgery. It should usually be removed after 10 days. You can shower as long as there is no drainage from the wound. After the dressing is removed it is not recommended to apply any cream, ointment or lotion to the wound unless specifc instructions are given by your surgeon. Most of the time, your stitches will be under the skin and will dissolve of their own. If you have milton or external stitches they can be removed 10 days after surgery as long as there is no drainage. If the wound is draining, the dressing should be changed daily. The wound should be dry and without drainage by about 7 days postoperative. If there is persistent drainage from the wound after this time period, you should call our office immediately. If there is worsening redness around the incision, you should also call the office immediately. These may be signs of a superficial or deep wound infection and you may have to return to the office for an evaluation by one of our staff. Common concerns after hip replacement surgery include swelling and bruising. These can be quite signifcant in nature and can appear anywhere from the thigh to the toes. These are typically worse at night which can contribute to trouble sleeping comfortably for more than one to two hours at a time. Activity You will be using an assistive device (walker, crutches, or cane). Your physical therapist will help you with this. Most patients are able to get in and out of bed, use the rest room, and go up and down stairs when they go home. We d like you to get up and walk every hour after surgery. For the first 1-2 weeks you will be walking with a walker or two crutches. After that, you can start using a cane. Bathing Your dressing is waterproof. You may take a shower but not a bath. Precautions It is very common to have swelling and bruising in the thigh, lower leg and foot after surgery. Elevating your leg, doing ankle pump exercises, and using ice packs will help. Call us if the swelling does not subside overnight. Call for a temperature over 101. Take the pain medications as needed for pain. Pain pills can cause constipation. Use over the counter stool softeners like Colace to avoid constipation. If Colace is not effective use a gentle over the counter laxative such as Miralx Please refer to your medication sheet for more information regarding any prescriptions you have been given to take after surgery. Follow up office visit The Doctor would like see you in 2 weeks. If the followup appointment is not already made the office will call. Please avoid any other surgery, procedure or dental procedure until cleared by Dr. Beverly. Common Discharge Medications Aspirin, Eliquis, Xarelto - Used to prevent blood clots after surgery Tramadol (Ultram), Hydrocodone ([place]), Oxycodone (Percocet) - Pain control after surgery Docusate Sodium (Colace), Polyethylene Gycol (Mirlax) - Help prevents constipation while pain medication Common Questions About Hip Surgery Question: How long can I expect to have pain after surgery? Answer: The time varies for each patient. Many patients report that there is very little pain right after surgery, but postoperative soreness may continue for 3 - 4 weeks. Question. Why do I have to take a blood thinner after surgery and how long will this continue? Answer. A blood thinning medicine is recommended to prevent blood clots and is usually discontinued after your first follow-up appointment. Question: When can I resume sexual activities? Answer. You can resume sexual activity 3 - 6 weeks after surgery. The physical therapist gavinfe zhao. Question: Why does the skin feel funny around my incision? Answer: The nerves in the skin cross the front of the hip in an inside-out direction. When an incision is made on the hip, these tiny nerves are divided and the skin on the outside will feel fuzzy or numb. This sensation will lessen with time and is normal for all patients with hip replacement surgery. Question: Why is my leg discolored? Answer: You may develop some discoloration (like a bruise) in the leg. This discoloration, which may extend to the hip or ankle, will slowly disappear. Question: What about cocoa butter and vitamin E oil? Answer: Do not use either of these until after your four week postoperative visit. Ask for clearance to use during that visit. Question: A stitch is sticking out. What do I do? Answer: We often suture the skin from underneath to reduce scarring. The knot at the end of the stitch sometimes will protrude from the skin. Redness and a small amount of drainage may appear. Cleanse the skin with peroxide. Please notify your surgeon s of office. Question: When can I drive my car? Answer: Usually after 4 weeks. A patient s decision to drive sooner is a personal decision related to their mobility and pain control. You cannot drive while you are taking narcotic pain medicine such as [place], Percocet, Hydrocodone or Oxycodone. Question: When can I go in the swimming pool? Answer: Ordinarily, patients may resume pool activities after the first follow-up visit. Be sure to check with the surgeon or fellow at that time. Latoya Polanco MD - 04/23/2025 1:35 PM EDT As tolerated per PT Latoya Polanco MD - 04/23/2025 1:35 PM EDT Dietary Orders (From admission, onward) Start Ordered 04/21/25 164 Adult diet Regular Diet effective now Question: Diet type Answer: Regular 04/21/25 1645 Danny Enciso RN - 04/23/2025 10:04 AM EDT Images from the original note were not included. Continuity of Care Form Patient Name: Pily Barnes : 1950 Admit date: 04/19/2025 Discharge date: 04/23/2025 Code Status Order: DNR-CCA Advance Directives: N Admitting Physician: Jacek Iniguez MD PCP: No primary care provider on file. Discharging Nurse: Lorna Enciso RN Discharging Hospital Unit/Room#: B1-157/B1-157 A Discharging Unit Emergency Contact: Extended Emergency Contact Information Primary Emergency Contact: Claudia Barnes Relation: Son Secondary Emergency Contact: Nathanael Barnes Relation: Son Past Surgical History: Past Surgical History: Procedure Laterality Date CERVICAL SPINE SURGERY 03/02/2023 C3-C6 ANTERIOR CERVICAL DECOMPRESSION, FUSION HYSTERECTOMY THYROID SURGERY N/A half Immunization History: Immunization History Administered Date(s) Administered Influenza, High Dose Seasonal, Preservative Free 06/06/2016, 08/07/2017, 05/21/2019 Influenza, High-dose Seasonal, Quadrivalent, Preservative Free 06/08/2020, 10/19/2021 Influenza, adjuvanted, trivalent, preservative-free 06/08/2018 Influenza, seasonal, injectable, preservative free 08/23/2013 Pneumococcal Conjugate PCV 13 02/15/2017 Pneumococcal Polysaccharide PPSV23 03/20/2018 Td (adult), 5 Lf tetanus toxoid, preservative free, adsorbed 07/02/2019 Zoster, Recombinant 06/08/2018, 10/05/2018 Active Problems: Medical Problems Problem List * (Principal) Closed nondisplaced intertrochanteric fracture of right femur, initial encounter (HCC) Allergic rhinitis Suicide attempt (HCC) Bipolar 1 disorder, depressed, severe (CMS/HCC) (HCC) Cardiomegaly Generalized anxiety disorder Herpes simplex S/P partial thyroidectomy Hypertensive heart disease without congestive heart failure Insomnia Mild intermittent asthma Mixed hyperlipidemia Moderate persistent asthma without complication Multiple thyroid nodules Nonrheumatic aortic valve stenosis Patent foramen ovale Primary hypertension Recurrent falls 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 ([facility]) Shortness of breath Stage 3 chronic kidney disease (HCC) Status post hysterectomy Syncope and collapse Traumatic subdural hematoma of neuraxis ([facility]) Urge incontinence of urine Vitamin D deficiency Cervical stenosis of spinal canal Acute kidney injury (HCC) Nausea vomiting and diarrhea Closed displaced intertrochanteric fracture of right femur (HCC) Isolation/Infection: No active isolations No active infections Nurse Assessment: Last Vital Signs: BP 110/61 Pulse 76 Temp 36.4 C (97.6 F) (Temporal) Resp 16 Ht 1.524 m (5') Wt 74.8 kg (165 lb) SpO2 94% BMI 32.22 kg/m Last documented pain score (0-10 scale): Last Weight: Wt Readings from Last 1 Encounters: 04/19/25 74.8 kg (165 lb) Mental Status: NARESH Patient Mental Status: oriented and alert IV Access: NARESH IV Access: None Nursing Mobility/ADLs: Walking Total assistance Transfer Total assistance Bathing Total assistance Dressing Total assistance Toileting Total assistance Feeding Minimal assistance Aviation Medicine Specialist Total assistance Med Delivery no Wound Care Documentation and Therapy: Wound/Incision 03/02/23 Incision Neck Anterior (Active) Number of days: 782 Wound/Incision 04/21/25 Incision Leg Anterior;Right;Upper (Active) Site Assessment Clean;Dry;Intact 04/22/252101 Odor None 04/22/252101 Drainage Amount None 04/22/252101 Treatments Ice applied 04/22/252101 Primary Dressing Silver dressing 04/22/252101 Dressing Status Clean, dry & intact 04/22/252101 Number of days: 2 Elimination: Continence: Bowel: yes Bladder: yes Urinary Catheter: None Colostomy/Ileostomy/Ileal Conduit: None Date of Last BM: 04/21/2025 Intake/Output Summary (Last 24 hours) at 04/23/2025 1002 Last data filed at 04/23/2025 0646 Gross per 24 hour Intake -- Output 750 ml Net -750 ml I/O last 3 completed shifts: In: 4383.3 (58.6 mL/kg) [IV Piggyback:4383.3] Out: 1600 (21.4 mL/kg) [Urine:1600 (0.6 mL/kg/hr)] Weight: 74.8 kg Safety Concerns: history of falls (last 30 days) and at risk for falls Impairments/Disabilities: none Nutrition Therapy: Current Nutrition Therapy: Oral diet: general Routes of Feeding: oral Liquids: thin liquids Daily Fluid Restriction: no Last Modified Barium Swallow with Video (Video Swallowing Test): not done Treatments at the Time of Hospital Discharge: Respiratory Treatments: none Oxygen Therapy: 3L o2 via nasal canula Ventilator: No ventilator support Rehab Therapies: physical therapy and occupational therapy Weight Bearing Status/Restrictions: no restriction Other Medical Equipment (for information only, NOT a DME order): wheeled walker Other Treatments: none Patient's personal belongings (please select all that are sent with patient): none RN SIGNATURE: MANAGEMENT/SOCIAL WORK SECTION Inpatient Status Date: Discharging to Facility/ Agency Name: [facility] Address:[place] [address] Fax: Noise Tester/Compensation Advisor signature: ICIAN SECTION Name: Pily Barnes Prognosis: fair Condition at Discharge: stable Rehab Potential (if transferring to Rehab): fair Recommended Labs or Other Treatments After Discharge: cbc and BMP in 3 days The individual is being admitted to a nursing facility directly from an [facility] or a unit of a [facility] that is not operated by or licensed by [facility] under section 5119.14 or 5160-3-15.1 5 The individual requires the level of services provided by a nursing facility for the condition for which he or she was treated in the hospital and, Physician Certification: I certify the above information and transfer of Pily Barnes is necessary for the continuing treatment of the diagnosis listed and that she requires retirement facility for less than 30 days. Update Admission H&P: No change in H&P PHYSICIAN SIGNATURE: documented in this encounter [facility] 04-21-2025 Nurse Note Pt c/o nausea, zofran given per Dr Henderson order. [facility] 04-21-2025 Nurse Note Arrived in [facility], A+O x3, sons at bedside. IV K+ via pump [facility] 04-21-2025 Note Patient: Pily Wade Cas ey Procedure Information Date/Time: 04/21/25 1430 Procedure: RIGHT ORIF, FRACTURE, FEMUR, INTERTROCHANTERIC, WITH INTRAMEDULLARY IMPLANT INSERTION (Right: Hip) Location: [address] Operating Room Surgeons: Rolando Beverly MD 2023 CONCLUSIONS: - Technically difficult exam due to body habitus, suboptimal positioning and pt in wheelchair. - Exam indication: Re-evaluation of known ascending aortic dilatation to establish baseline - The left ventricle is normal in size. There is severe upper septal left ventricular hypertrophy. Left ventricular systolic function is normal. EF = 58 ? 5% (2D biplane) Normal left ventricular diastolic function. - The right ventricle is normal in size. Right ventricular systolic function is normal. - The left atrial cavity is severely dilated. - The visualized aorta is dilated with a maximal dimension of 4.7 cm. - Estimated right ventricular systolic pressure is not reported due to an insufficient tricuspid regurgitation signal. Estimated right atrial pressure is 8 mmHg based on IVC assessment. - The patient has not had a prior CC echocardiographic exam for comparison. Past Medical History: Past Medical History: No date: AA (aortic aneurysm) ([facility]) No date: Anxiety No date: Aspirin long-term use Comment: history No date: Asthma No date: Bipolar 1 disorder ([facility]) No date: Chronic kidney disease No date: Depression No date: Difficulty walking No date: High blood pressure No date: Lack of coordination No date: Mitral valve insufficiency No date: Muscle weakness No date: Presence of intraocular lens No date: Repeated falls No date: Rhabdomyolysis No date: Sleep apnea No date: Suicidal ideations No date: Traumatic subarachnoid hemorrhage without loss of consciousness ([facility]) Past Surgical History: Past Surgical History: 03/02/2023: CERVICAL SPINE SURGERY Comment: C3-C6 ANTERIOR CERVICAL DECOMPRESSION, FUSION No date: HYSTERECTOMY No date: THYROID SURGERY; N/A Comment: half Social History: TOBACCO: reports that she has never smoked. She has never used smokeless tobacco. ETOH: reports no history of alcohol use. Social History Substance and Sexual Activity Drug Use Never Family History: Family History Problem Relation Name Age of Onset Cancer Mother No Known Problems Father Screening: Hysterectomy Clinical information reviewed: Tobacco Allergies Meds Med Hx Surg Hx Fam Hx Soc Hx Physical Exam Airway Mallampati: III TM distance: >3 FB Neck ROM: full Mouth Open: normalendotracheal tube not in place Cardiovascular Dental (+) Missing, Loose, Poor, chipped Pulmonary Abdominal Anesthesia Plan Any family history or previous problems with anesthesia no (Hx PFO- local block for post op pain relief)We discussed risks, benefits, alternatives and likelihood of success with the Patient. ASA 3 general and regional Any family history or previous problems with anesthesia no The patient is not a current smoker. patient is NPO appropriate Anesthesia Javier Considerations Pt c/o nausea, no vomiting today. Treated with zofran pre op. Plan for RSI. 04/01/20 echo - Exam indication: Syncope - The left ventricle is normal in size. There is mild left ventricular hypertrophy. Left ventricular systolic function is normal. EF = 69 ? 5% (2D biplane) - The right ventricle is normal in size. Right ventricular systolic function is normal. - The left atrial cavity is mildly dilated. - The visualized aorta is dilated with a maximal dimension of 4.6 cm. - There is mild aortic valve stenosis. The peak gradient is 29 mmHg (peak velocity = 270.7 cm/s). The mean gradient is 14 mmHg. The LVOT mean velocity is 126.0 cm/s. - The patient has not had a prior CC echocardiographic exam for comparison. TATI Screening Labs: Lab Results Component Value Date WBC 8.7 04/21/2025 HGB 12.3 04/21/2025 HCT 38.6 04/21/2025 MCV 92.8 04/21/2025 PLT 137 (L) 04/21/2025 Lab Results Component Value Date NA 139 04/21/2025 K 4.7 04/21/2025 CL 112 (H) 04/21/2025 CO2 21 (L) 04/21/2025 BUN 16 04/21/2025 CREATININE 0.74 04/21/2025 GLUCOSE 144 (H) 04/21/2025 CALCIUM 8.6 (L) 04/21/2025 PROT 6.9 12/17/2023 ALKPHOS 97 12/17/2023 AST 26 12/17/2023 ALT 22 12/17/2023 EGFR 85.0 04/21/2025 Pain Score: Patient resting with eyes closed and respirations are greater than 12 No echocardiogram results found for the past 14 days No results found for this or any previous visit. Additional Equipment Requests [facility] 04-20-2025 Note Hospitalist Progress Note 04/20/2025 [phone]: Please page me ([phone]) for patient care issues. [phone]: Please page [facility] Hospitalist for any issues. Subjective: Admit Date: 04/19/2025 PCP: No primary care provider on file. Room#: B1157/B1157 Hai Barnes is a 74 y.o. female who presents with Closed nondisplaced intertrochanteric fracture of right femur, initial encounter ([facility]) Interval History: 74-year-old female patient is admitted with a fall and the right hip fracture. She is on bedrest and orthopedic service is consulted Plan is for right hip ORIF tomorrow. She complains of right hip discomfort Denies chest pain, sob, abdominal pain, nausea, vomiting, diarrhea, constipation, fevers, or chills. NPO diet NPO diet without enteral medications Adult diet Regular 24HR INTAKE/OUTPUT: Intake/Output Summary (Last 24 hours) at 04/20/2025 1140 Last data filed at 04/20/2025 1131 Gross per 24 hour Intake 1356.26 ml Output 250 ml Net 1106.26 ml LABS: CBC: Recent Labs 04/19/25 1722 WBC 10.5 RBC 4.49 HGB 13.5 HCT 40.6 MCV 90.4 RDW 13.3 PLT 165 BMP: Recent Labs 04/19/25 1722 NA 141 K 3.2* CL 116* CO2 18* BUN 20 CREATININE 0.62 GLUCOSE 93 CALCIUM 7.2* ANIONGAP 7 LIVER PROFILE:No results for input(s): "AST", "ALT", "BILITOT", "ALKPHOS", "PROT" in the last 72 hours. No lab exists for component: LABALBU PT/INR: Recent Labs 04/19/25 1722 PROTIME 10.4 INR 1.0 CARDIAC ENZYMES: No results for input(s): "TROPONINI" in the last 72 hours. Procalcitonin: No results found for: "PROCAL" @RISRSLTSPECIALTY@ Objective: Vitals: BP 148/88 Pulse 68 Temp 36.6 ?C (97.8 ?F) (Temporal) Resp 18 Ht 5' (1.524 m) Wt 165 lb (74.8 kg) SpO2 95% BMI 32.22 kg/m? Pulse Ox: SpO2 Av % Min: 94 % Max: 97 % Supplemental O2: O2 Flow Rate (L/min): 2 L/min 04/20/2025 General appearance: Awake alert oriented x 3, appears to be in no distress Cardiovascular: S1, S2, regular rhythm, no murmurs gallops or rubs Respiratory: Diminished breath sounds bilaterally and no wheezing or rhonchi abdomen: Benign, positive bowel sounds, soft, nontender Musculoskeletal: Right hip externally rotated, decreased range of motion and no calf tenderness skin: No rash or lesions Neurological: Awake alert oriented x 3, no acute motor or sensory deficits Medications: Continuous Meds[1] Scheduled Meds[2] PRN Meds[3] Assessment Fall with right hip fracture-scheduled for OR tomorrow Preoperative clearance-does not have any prior CAD, or stroke, reviewed EKG, probably low cardiovascular risk for this emergent surgery, Hypokalemia-replace potassium Chronic problems Asthma-albuterol as needed Ascending aortic aneurysm with no size change compared to the prior imaging Incomplete left bundle branch block-echo reviewed in Care Everywhere shows that her ejection fraction is normal Hypertension-continue losartan and amlodipine Depression-on Prozac Parkinsonian symptoms-not on any medication Thyroid nodule on the right side-needs outpatient follow-up Plan Reviewed CBC BMP and EKG Preoperative clearance reviewed and she is optimized to proceed without any further cardiac testing Replace potassium Will require Lovenox for DVT prophylaxis after surgery for 4 weeks -am labs, replace lytes prn -increase activity Diet NPO diet NPO diet without enteral medications Adult diet Regular DVT Prophylaxis [] Lovenox, [] Heparin, [x] SCDs, [] Ambulation [] Already on Anticoagulation[] ASA bid per prtho service GI Prophylaxis [] PPI, [] H2 Elena, [] Carafate, [] Diet/Tube Feeds Code Status DNR-CCA Disposition Patient requires continued admission due to right femur fracture MDM [] Low, [] Moderate,[x] High Patient's risk as above Total time spent (which include face to face and non face to face encounters) : 55 minutes Toxic drug monitoring/narrow therapeutic index drug monitoring : # Drug name : Morphine # Route administered : Intravenous # Method of monitoring : Daily BMP and physiological blood pressure monitoring Extended Emergency Contact Information Primary Emergency Contact: Claudia Barnes Relation: Son Secondary Emergency Contact: Nathanael Barnes Relation: Son Advance Directive: DNR-CCA Discharge planning: TBD Latoya Polanco MD Division of Hospitalist Medicine Inpatient Medical Services/[facility] [place] [1] dextrose 5 % and sodium chloride 0.9 % with KCl 20 mEq, 125 mL/hr, Last Rate: 125 mL/hr (04/20/25 1131) [2] amLODIPine, 2.5 mg, Oral, Daily ARIPiprazole, 5 mg, Oral, Daily buPROPion XL, 300 mg, Oral, Daily FLUoxetine, 60 mg, Oral, Daily lamoTRIgine, 50 mg, Oral, Daily losartan, 100 mg, Oral, Daily mometasone-formoterol, 2 puff, Inhalation, BID [3] PRN medications: acetaminophen OR acetaminophen, clonazePAM, methocarbamol, morphin (more content not included)... [facility] 04-19-2025 History and physical note History and Physical [facility] Pily Barnes : 1950 AGE 74 y.o. YEARS Note Date 04/19/2025 Primary Care Physician:No primary care provider on file. Phone None Fax None Current Providers as of 04/19/2025 PCP: not found Referring Provider: not found, starting on MonApr 19, 2025 12:00 AM Admitting Provider: Jacek Iniguez MD, (Active) Attending Provider: Javon Boone DO, starting on MonApr 19, 2025 3:35 PM, ending on MonApr 19, 2025 8:27 PM (Inactive) Attending Provider: Jacek Iniguez MD, starting on MonApr 19, 2025 7:49 PM (Active) Registered Nurse: Ranid Henderson RN, starting on MonApr 19, 2025 3:33 PM, ending on MonApr 19, 2025 7:16 PM (Inactive) Construction Director RES: Mayco Bhakta II, MD, starting on MonApr 19, 2025 3:33 PM, ending on MonApr 19, 2025 8:27 PM (Inactive) Registered Nurse: Nadiya Gonzales RN, starting on Sat Apr 19, 2025 6:55 PM, ending on Sat Apr 19, 2025 8:27 PM (Inactive) Consulting Physician: Niko Causey MD, starting on Sat Apr 19, 2025 7:00 PM (Active) Registered Nurse: Chandni Ramos RN, starting on Sat Apr 19, 2025 8:27 PM (Active) Chief Complaint: Hip Pain (Right hip pain, + shortening after fall in bathroom) HPI: Fall with right hip pain She reports she tripped, she did not pass out She was standing in the bathroom, looking at the mirror when she fell. She tried to grab the sink and then she fell into the wall She has chronic balance problems and poor balance is new for her. She has has close calls with falls recently but has not fallen recently other than this fall tonight She denies hurting anything else, she denies any head neck pain. After she fell she had hip pain she went up to the emergency room was referred for admission with hip fracture Review of Systems: General: Skin: HEENT: Cardiovascular Fever n Rashes n Difficulty chewing Chest Pain n Chills n Sores n Appetite Loss Chest Pressure n Fatigue n Epistaxis Orthopnea n Sweats n Hearing loss Palpitations n GI: Tinnitus GERD n Vision quality RESP: Abdominal Pain n : SOB/HERRMANN n Nausea n Hematuria n Cough n Vomiting n Dysuria n Productive/Sputum n Hematemesis n NEURO: Urgency n Hemoptysis n Diarrhea n Headaches n Frequency n Wheezing n Constipation Seizures Times at night urinating Heamatochezia Neuropathy Numbness and tingling in fingers 4and5 chronically catheter present MSK: Melena Focal weakness Hesitancy Focal Numbness Incontinence Acute joint pain Right hip Dizzy/Vertigo Redness n Difficulty speaking Heme/Lymph Swelling n Difficulty walking She reports she has chronic balance problems Lymphadenopathy Myalgia n Ataxia Chronic joint pain Medical History[1] Surgical History[2] Allergies[3] Medications Prior to Admission: Medications Reviewed with patient at bedside - were able to verify most meds but not completely Current Outpatient Medications Medication Instructions albuterol 108 (90 Base) MCG/ACT inhaler INHALE TWO PUFFS BY MOUTH INTO THE LUNGS instructed EVERY 4 HOURS NEEDED FOR WHEEZING OR FOR SHORTNESS OF BREATH amLODIPine (NORVASC) 2.5 mg, Daily ARIPiprazole (ABILIFY) 5 mg, Daily Breo Ellipta 100-25 MCG/ACT aerosol powder 1 puff, Daily buPROPion XL (WELLBUTRIN XL) 300 mg, Daily Calcium + Vitamin D3 600-10 MG-MCG tablet 1 tablet, Oral, Daily, 600/400 cholecalciferol (VITAMIN D-3) 2,000 Units, Oral, Daily clonazePAM (KLONOPIN) 0.5 mg, Oral, Daily PRN famotidine (Pepcid) 20 MG tablet Oral FLUoxetine (PROZAC) 60 mg, Daily fluticasone (Flonase) 50 MCG/ACT nasal spray 2 sprays, Daily PRN Invega Sustenna 39 mg, IntraMUSCular, Every 30 days lamoTRIgine (LAMICTAL) 50 mg, Daily lisinopril 20 mg, Oral, Daily Loratadine 10 mg, Daily losartan (COZAAR) 100 mg, Daily Multiple Vitamin (High Potency Multivitamin) tablet 1 tablet, Daily nystatin (Mycostatin) 061889 UNIT/GM powder 1 Application, 2 times daily Omeprazole 20 MG tablet delayed-release No dose, route, or frequency recorded. She is not on lisinipril Social History Social History Tobacco Use Smoking status: Never Smokeless tobacco: Never Substance Use Topics Alcohol use: Never Family History Family History[4] Physical Exam Temp (24hrs), Av.6 C (97.9 F), Min:36.6 C (97.8 F), Max:36.6 C (97.9 F) Body mass index is 32.22 kg/m .BMI Classification: Obese (BMI 30.0-39.9) BP 136/86 (BP Location: Right arm, Patient Position: Lying) Pulse 67 Temp 36.6 C (97.8 F) (Temporal) Resp 16 Ht 5' (1.524 m) Wt 165 lb (74.8 kg) SpO2 97% BMI 32.22 kg/m Pulse Ox: SpO2 Av.3 % Min: 94 % Max: 97 % Supplemental O2: General appearance: No apparent distress, appears stated age and cooperative with exam HEENT: Normal cephalic, atraumatic without obvious deformity. Pupils equal, round, and reactive to light. Extra ocular muscles intact. Conjunctivae/corneas clear. Neck: Supple, with full range of motion. No jugular venous distention. Trachea midline. No lymphadenopathy. Respiratory: Normal respiratory effort. Clear to auscultation, bilaterally without Rales/Wheezes/Rhonchi. Cardiovascular: Regular rate and rhythm with normal S1/S2 without murmurs, rubs or gallops. Abdomen: Soft, non-tender, non-distended with normal bowel sounds. No rebound or guarding. Musculoskeletal: Right hip deformed and right leg shortened distally her sensation is intact Skin: Skin color, texture, turgor normal. No rashes or lesions. Neurologic: Neurovascularly intact without any focal sensory/motor deficits. Cranial nerves grossly intact. Labs Admission on 04/19/2025 Component Date Value Auto WBC 04/19/2025 10.5 RBC 04/19/2025 4.49 Hemoglobin 04/19/2025 13.5 Hematocrit 04/19/2025 40.6 MCV 04/19/2025 90.4 MCH 04/19/2025 30.1 MCHC 04/19/2025 33.3 RDW 04/19/2025 13.3 Platelets 04/19/2025 165 MPV 04/19/2025 9.9 nRBC 04/19/2025 0.0 Neutrophils Relative 04/19/2025 87.4 (H) Lymphocytes Relative 04/19/2025 6.6 (L) Monocytes Relative 04/19/2025 4.5 (L) Eosinophils Relative 04/19/2025 0.7 Basophils Relative 04/19/2025 0.3 Immature Grans % 04/19/2025 0.5 Neutrophils Absolute 04/19/2025 9.2 (H) Lymphocytes Absolute 04/19/2025 0.7 (L) Monocytes Absolute 04/19/2025 0.5 Eosinophils Absolute 04/19/2025 0.1 Basophils Absolute 04/19/2025 0.0 Immature Grans Absolute 04/19/2025 0.1 (H) SODIUM 04/19/2025 141 POTASSIUM 04/19/2025 3.2 (L) CHLORIDE 04/19/2025 116 (H) CARBON DIOXIDE 04/19/2025 18 (L) UREA NITROGEN 04/19/2025 20 CREATININE 04/19/2025 0.62 GLUCOSE 04/19/2025 93 CALCIUM 04/19/2025 7.2 (L) ANION GAP 04/19/2025 7 eGFR 04/19/2025 >90.0 PROTHROMBIN TIME 04/19/2025 10.4 INR 04/19/2025 1.0 ABO Grouping 04/19/2025 AB Antibody Screen 04/19/2025 NEG Rh Type 04/19/2025 POS Heart Rate 04/19/2025 69 QRSD Interval 04/19/2025 116 QT Interval 04/19/2025 399 QTC Interval 04/19/2025 426 P [place] 04/19/2025 29 QRS [place] 04/19/2025 -28 T Wave [place] 04/19/2025 84 [place] Interval 04/19/2025 198 EKG Encounter Date: 04/19/25 ECG 12 lead Result Value Heart Rate 69 QRSD Interval 116 QT Interval 399 QTC Interval 426 P [place] 29 QRS [place] -28 T Wave [place] 84 [place] Interval 198 Impression Sinus rhythm Incomplete left bundle branch block LVH with secondary repolarization abnormality Scheduled PRN Scheduled Meds[5] PRN Meds[6] Continuous Continuous Meds[7] Assessment/Plan and Medical Decision Making Falll with right hip fracture 74-year-old who reports chronic balance issues fell in her bathroom and has right sided hip fracture. She denies any syncopal symptoms reports she fell due to poor balance which is chronic for her. She was referred for admission orthopedics consulted. They are planning to operate on Saturday 04/21 For now she will be Bed rest, allow diet today and n.p.o. after midnight tonight. Pain and nausea control ordered Preoperative evaluation She does have a history of pulmonary disease of asthma currently has been placed on 2 L of oxygen but not sure that she actually was hypoxic before being placed on this. She also has an aortic aneurysm ascending which was scanned via the CAT scans done in the emergency room and appears to be similar size than the past. EKG on admission shows sinus rhythm with incomplete left bundle branch block Last echocardiogram not available in our system here at [facility] but in Care Everywhere she appears to have had 1 year ago at that time her ejection fraction was normal She is not on chronic anticoagulation at home She does have limited functional status at home but currently she is medically optimized to proceed with surgery without further testing as she is not having any active cardiopulmonary symptoms Her potassium was low and will need to be replaced before surgery but this is already in process Hypertension At home she is on losartan and amlodipine which I will continue She reports Parkinson's or Parkinson's-like symptoms She reports she is not on any medication for this yet Thyroid nodule Incidentally noted 1.3 cm right thyroid lobe nodule. When I discussed this with her she states that she thinks she is known about it before and has had it tested already but would need to follow-up with her PCP to make sure appropriate surveillance is being done or endocrine as an alternative. I discussed the need for admission with the emergency provider. -DVT prophylaxis: [] Lovenox [] Heparin [] SCDs [x] Encourage ambulation [] Already on Anticoagulation [x] Pharmocologic prophylaxis on hold to due risk bleed/procedure [] Low risk, ambulatory [] Both pharmacologic and mechanical contraindicated 56 minutes - Time spent on admission 04/19/2025 Pily Barnes [id number] Any scheduled follow up appointments No future appointments. Extended Emergency Contact Information Primary Emergency Contact: Claudia Barnes Relation: Son Secondary Emergency Contact: Nathanael Barnes Relation: Son Portions of this note may be electronically transcribed. Please forward a copy of this H&P to the primary care physician. [1] Past Medical History: Diagnosis Date AA (aortic aneurysm) (HCC) Anxiety Aspirin long-term use history Asthma Bipolar 1 disorder (HCC) Chronic kidney disease Depression Difficulty walking High blood pressure Lack of coordination Mitral valve insufficiency Muscle weakness Presence of intraocular lens Repeated falls Rhabdomyolysis Sleep apnea Suicidal ideations Traumatic subarachnoid hemorrhage without loss of consciousness (HCC) [2] Past Surgical History: Procedure Laterality Date CERVICAL SPINE SURGERY 03/02/2023 C3-C6 ANTERIOR CERVICAL DECOMPRESSION, FUSION HYSTERECTOMY THYROID SURGERY N/A half [3] Allergies Allergen Reactions Sulfa Antibiotics Itching and Swelling Other reaction(s): Other: See Comments Facial swelling Milk [Milk (Cow)] Other Abdominal bloating [4] Family History Problem Relation Name Age of Onset Cancer Mother No Known Problems Father [5] potassium chloride CR, 40 mEq, Oral, Once [6] PRN medications: morphine sulfate, naloxone, oxyCODONE [7] [employer] [place] Work Phone: 04-19-2025 Note History and Physical [facility] Pily Barnes : 1950 AGE 74 y.o. YEARS Note Date 04/19/2025 Primary Care Physician:No primary care provider on file. Phone None Fax None Current Providers as of 04/19/2025 PCP: not found Referring Provider: not found, starting on [facility] Apr 19, 2025 12:00 AM Admitting Provider: Jacek Iniguez MD, (Active) Attending Provider: Javon Boone DO, starting on [facility] Apr 19, 2025 3:35 PM, ending on MonApr 19, 2025 8:27 PM (Inactive) Attending Provider: Jacek Iniguez MD, starting on [facility] Apr 19, 2025 7:49 PM (Active) Registered Nurse: Randi Henderson RN, starting on MonApr 19, 2025 3:33 PM, ending on MonApr 19, 2025 7:16 PM (Inactive) Construction Director RES: Mayco Bhakta II, MD, starting on MonApr 19, 2025 3:33 PM, ending on MonApr 19, 2025 8:27 PM (Inactive) Registered Nurse: Nadiya Gonzales RN, starting on [facility] Apr 19, 2025 6:55 PM, ending on MonApr 19, 2025 8:27 PM (Inactive) Consulting Physician: Niko Causey MD, starting on [facility] Apr 19, 2025 7:00 PM (Active) Registered Nurse: Chandni Ramos RN, starting on [facility] Apr 19, 2025 8:27 PM (Active) Chief Complaint: Hip Pain (Right hip pain, + shortening after fall in bathroom) HPI: Fall with right hip pain She reports she tripped, she did not pass out She was standing in the bathroom, looking at the mirror when she fell. She tried to grab the sink and then she fell into the wall She has chronic balance problems and poor balance is new for her. She has has close calls with falls recently but has not fallen recently other than this fall tonight She denies hurting anything else, she denies any head neck pain. After she fell she had hip pain she went up to the emergency room was referred for admission with hip fracture Review of Systems: General: Skin: HEENT: Cardiovascular Fever n Rashes n Difficulty chewing Chest Pain n Chills n Sores n Appetite Loss Chest Pressure n Fatigue n Epistaxis Orthopnea n Sweats n Hearing loss Palpitations n GI: Tinnitus GERD n Vision quality RESP: Abdominal Pain n : SOB/HERRMANN n Nausea n Hematuria n Cough n Vomiting n Dysuria n Productive/Sputum n Hematemesis n NEURO: Urgency n Hemoptysis n Diarrhea n Headaches n Frequency n Wheezing n Constipation Seizures Times at night urinating Heamatochezia Neuropathy Numbness and tingling in fingers 4and5 chronically catheter present MSK: Melena Focal weakness Hesitancy Focal Numbness Incontinence Acute joint pain Right hip Dizzy/Vertigo Redness n Difficulty speaking Heme/Lymph Swelling n Difficulty walking She reports she has chronic balance problems Lymphadenopathy Myalgia n Ataxia Chronic joint pain Medical History[1] Surgical History[2] Allergies[3] Medications Prior to Admission: Medications Reviewed with patient at bedside - were able to verify most meds but not completely Current Outpatient Medications Medication Instructions albuterol 108 (90 Base) MCG/ACT inhaler INHALE TWO PUFFS BY MOUTH INTO THE LUNGS instructed EVERY 4 HOURS NEEDED FOR WHEEZING OR FOR SHORTNESS OF BREATH amLODIPine (NORVASC) 2.5 mg, Daily ARIPiprazole (ABILIFY) 5 mg, Daily Breo Ellipta 100-25 MCG/ACT aerosol powder 1 puff, Daily buPROPion XL (WELLBUTRIN XL) 300 mg, Daily Calcium + Vitamin D3 600-10 MG-MCG tablet 1 tablet, Oral, Daily, 600/400 cholecalciferol (VITAMIN D-3) 2,000 Units, Oral, Daily clonazePAM (KLONOPIN) 0.5 mg, Oral, Daily PRN famotidine (Pepcid) 20 MG tablet Oral FLUoxetine (PROZAC) 60 mg, Daily fluticasone (Flonase) 50 MCG/ACT nasal spray 2 sprays, Daily PRN Invega Sustenna 39 mg, IntraMUSCular, Every 30 days lamoTRIgine (LAMICTAL) 50 mg, Daily lisinopril 20 mg, Oral, Daily Loratadine 10 mg, Daily losartan (COZAAR) 100 mg, Daily Multiple Vitamin (High Potency Multivitamin) tablet 1 tablet, Daily nystatin (Mycostatin) [id number] UNIT/GM powder 1 Application, 2 times daily Omeprazole 20 MG tablet delayed-release No dose, route, or frequency recorded. She is not on lisinipril Social History Social History Tobacco Use Smoking status: Never Smokeless tobacco: Never Substance Use Topics Alcohol use: Never Family History Family History[4] Physical Exam Temp (24hrs), Av.6 ?C (97.9 ?F), Min:36.6 ?C (97.8 ?F), Max:36.6 ?C (97.9 ?F) Body mass index is 32.22 kg/m?.BMI Classification: Obese (BMI 30.0-39.9) BP 136/86 (BP Location: Right arm, Patient Position: Lying) Pulse 67 Temp 36.6 ?C (97.8 ?F) (Temporal) Resp 16 Ht 5' (1.524 m) Wt 165 lb (74.8 kg) SpO2 97% BMI 32.22 kg/m? Pulse Ox: SpO2 Av.3 % Min: 94 % Max: 97 % Supplemental O2: General appearance: No apparent distress, appears stated age and cooperative with exam HEENT: Normal cephalic, atraumatic without obvious deformity. Pupils equal, round, and reactive to light. Extra ocular muscles intact. Conjunctivae/corneas clear. Neck: Supple, with (more content not included)... [facility] 04-19-2025 History and physical note History and Physical [facility] Pily Barnes : 1950 AGE 74 y.o. YEARS Note Date 04/19/2025 Primary Care Physician:No primary care provider on file. Phone None Fax None Current Providers as of 04/19/2025 PCP: not found Referring Provider: not found, starting on MonApr 19, 2025 12:00 AM Admitting Provider: Jacek Iniguez MD, (Active) Attending Provider: Javon Boone DO, starting on MonApr 19, 2025 3:35 PM, ending on MonApr 19, 2025 8:27 PM (Inactive) Attending Provider: Jacek Iniguez MD, starting on MonApr 19, 2025 7:49 PM (Active) Registered Nurse: Randi Henderson RN, starting on MonApr 19, 2025 3:33 PM, ending on MonApr 19, 2025 7:16 PM (Inactive) Construction Director RES: Mayco Bhakta II, MD, starting on MonApr 19, 2025 3:33 PM, ending on MonApr 19, 2025 8:27 PM (Inactive) Registered Nurse: Nadiya Gonzales RN, starting on MonApr 19, 2025 6:55 PM, ending on MonApr 19, 2025 8:27 PM (Inactive) Consulting Physician: Niko Causey MD, starting on MonApr 19, 2025 7:00 PM (Active) Registered Nurse: Chandni Ramos RN, starting on MonApr 19, 2025 8:27 PM (Active) Chief Complaint: Hip Pain (Right hip pain, + shortening after fall in bathroom) HPI: Fall with right hip pain She reports she tripped, she did not pass out She was standing in the bathroom, looking at the mirror when she fell. She tried to grab the sink and then she fell into the wall She has chronic balance problems and poor balance is new for her. She has has close calls with falls recently but has not fallen recently other than this fall tonight She denies hurting anything else, she denies any head neck pain. After she fell she had hip pain she went up to the emergency room was referred for admission with hip fracture Review of Systems: General: Skin: HEENT: Cardiovascular Fever n Rashes n Difficulty chewing Chest Pain n Chills n Sores n Appetite Loss Chest Pressure n Fatigue n Epistaxis Orthopnea n Sweats n Hearing loss Palpitations n GI: Tinnitus GERD n Vision quality RESP: Abdominal Pain n : SOB/HERRMANN n Nausea n Hematuria n Cough n Vomiting n Dysuria n Productive/Sputum n Hematemesis n NEURO: Urgency n Hemoptysis n Diarrhea n Headaches n Frequency n Wheezing n Constipation Seizures Times at night urinating Heamatochezia Neuropathy Numbness and tingling in fingers 4and5 chronically catheter present MSK: Melena Focal weakness Hesitancy Focal Numbness Incontinence Acute joint pain Right hip Dizzy/Vertigo Redness n Difficulty speaking Heme/Lymph Swelling n Difficulty walking She reports she has chronic balance problems Lymphadenopathy Myalgia n Ataxia Chronic joint pain Medical History[1] Surgical History[2] Allergies[3] Medications Prior to Admission: Medications Reviewed with patient at bedside - were able to verify most meds but not completely Current Outpatient Medications Medication Instructions albuterol 108 (90 Base) MCG/ACT inhaler INHALE TWO PUFFS BY MOUTH INTO THE LUNGS instructed EVERY 4 HOURS NEEDED FOR WHEEZING OR FOR SHORTNESS OF BREATH amLODIPine (NORVASC) 2.5 mg, Daily ARIPiprazole (ABILIFY) 5 mg, Daily Breo Ellipta 100-25 MCG/ACT aerosol powder 1 puff, Daily buPROPion XL (WELLBUTRIN XL) 300 mg, Daily Calcium + Vitamin D3 600-10 MG-MCG tablet 1 tablet, Oral, Daily, 600/400 cholecalciferol (VITAMIN D-3) 2,000 Units, Oral, Daily clonazePAM (KLONOPIN) 0.5 mg, Oral, Daily PRN famotidine (Pepcid) 20 MG tablet Oral FLUoxetine (PROZAC) 60 mg, Daily fluticasone (Flonase) 50 MCG/ACT nasal spray 2 sprays, Daily PRN Invega Sustenna 39 mg, IntraMUSCular, Every 30 days lamoTRIgine (LAMICTAL) 50 mg, Daily lisinopril 20 mg, Oral, Daily Loratadine 10 mg, Daily losartan (COZAAR) 100 mg, Daily Multiple Vitamin (High Potency Multivitamin) tablet 1 tablet, Daily nystatin (Mycostatin) [id number] UNIT/GM powder 1 Application, 2 times daily Omeprazole 20 MG tablet delayed-release No dose, route, or frequency recorded. She is not on lisinipril Social History Social History Tobacco Use Smoking status: Never Smokeless tobacco: Never Substance Use Topics Alcohol use: Never Family History Family History[4] Physical Exam Temp (24hrs), Av.6 C (97.9 F), Min:36.6 C (97.8 F), Max:36.6 C (97.9 F) Body mass index is 32.22 kg/m .BMI Classification: Obese (BMI 30.0-39.9) BP 136/86 (BP Location: Right arm, Patient Position: Lying) Pulse 67 Temp 36.6 C (97.8 F) (Temporal) Resp 16 Ht 5' (1.524 m) Wt 165 lb (74.8 kg) SpO2 97% BMI 32.22 kg/m Pulse Ox: SpO2 Av.3 % Min: 94 % Max: 97 % Supplemental O2: General appearance: No apparent distress, appears stated age and cooperative with exam HEENT: Normal cephalic, atraumatic without obvious deformity. Pupils equal, round, and reactive to light. Extra ocular muscles intact. Conjunctivae/corneas clear. Neck: Supple, with full range of motion. No jugular venous distention. Trachea midline. No lymphadenopathy. Respiratory: Normal respiratory effort. Clear to auscultation, bilaterally without Rales/Wheezes/Rhonchi. Cardiovascular: Regular rate and rhythm with normal S1/S2 without murmurs, rubs or gallops. Abdomen: Soft, non-tender, non-distended with normal bowel sounds. No rebound or guarding. Musculoskeletal: Right hip deformed and right leg shortened distally her sensation is intact Skin: Skin color, texture, turgor normal. No rashes or lesions. Neurologic: Neurovascularly intact without any focal sensory/motor deficits. Cranial nerves grossly intact. Labs Admission on 04/19/2025 Component Date Value Auto WBC 04/19/2025 10.5 RBC 04/19/2025 4.49 Hemoglobin 04/19/2025 13.5 Hematocrit 04/19/2025 40.6 MCV 04/19/2025 90.4 MCH 04/19/2025 30.1 MCHC 04/19/2025 33.3 RDW 04/19/2025 13.3 Platelets 04/19/2025 165 MPV 04/19/2025 9.9 nRBC 04/19/2025 0.0 Neutrophils Relative 04/19/2025 87.4 (H) Lymphocytes Relative 04/19/2025 6.6 (L) Monocytes Relative 04/19/2025 4.5 (L) Eosinophils Relative 04/19/2025 0.7 Basophils Relative 04/19/2025 0.3 Immature Grans % 04/19/2025 0.5 Neutrophils Absolute 04/19/2025 9.2 (H) Lymphocytes Absolute 04/19/2025 0.7 (L) Monocytes Absolute 04/19/2025 0.5 Eosinophils Absolute 04/19/2025 0.1 Basophils Absolute 04/19/2025 0.0 Immature Grans Absolute 04/19/2025 0.1 (H) SODIUM 04/19/2025 141 POTASSIUM 04/19/2025 3.2 (L) CHLORIDE 04/19/2025 116 (H) CARBON DIOXIDE 04/19/2025 18 (L) UREA NITROGEN 04/19/2025 20 CREATININE 04/19/2025 0.62 GLUCOSE 04/19/2025 93 CALCIUM 04/19/2025 7.2 (L) ANION GAP 04/19/2025 7 eGFR 04/19/2025 >90.0 PROTHROMBIN TIME 04/19/2025 10.4 INR 04/19/2025 1.0 ABO Grouping 04/19/2025 AB Antibody Screen 04/19/2025 NEG Rh Type 04/19/2025 POS Heart Rate 04/19/2025 69 QRSD Interval 04/19/2025 116 QT Interval 04/19/2025 399 QTC Interval 04/19/2025 426 P [place] 04/19/2025 29 QRS [place] 04/19/2025 -28 T Wave [place] 04/19/2025 84 [place] Interval 04/19/2025 198 EKG Encounter Date: 04/19/25 ECG 12 lead Result Value Heart Rate 69 QRSD Interval 116 QT Interval 399 QTC Interval 426 P [place] 29 QRS [place] -28 T Wave [place] 84 [place] Interval 198 Impression Sinus rhythm Incomplete left bundle branch block LVH with secondary repolarization abnormality Scheduled PRN Scheduled Meds[5] PRN Meds[6] Continuous Continuous Meds[7] Assessment/Plan and Medical Decision Making Falll with right hip fracture 74-year-old who reports chronic balance issues fell in her bathroom and has right sided hip fracture. She denies any syncopal symptoms reports she fell due to poor balance which is chronic for her. She was referred for admission orthopedics consulted. They are planning to operate on Saturday 04/21 For now she will be Bed rest, allow diet today and n.p.o. after midnight tonight. Pain and nausea control ordered Preoperative evaluation She does have a history of pulmonary disease of asthma currently has been placed on 2 L of oxygen but not sure that she actually was hypoxic before being placed on this. She also has an aortic aneurysm ascending which was scanned via the CAT scans done in the emergency room and appears to be similar size than the past. EKG on admission shows sinus rhythm with incomplete left bundle branch block Last echocardiogram not available in our system here at [facility] but in Care Everywhere she appears to have had 1 year ago at that time her ejection fraction was normal She is not on chronic anticoagulation at home She does have limited functional status at home but currently she is medically optimized to proceed with surgery without further testing as she is not having any active cardiopulmonary symptoms Her potassium was low and will need to be replaced before surgery but this is already in process Hypertension At home she is on losartan and amlodipine which I will continue She reports Parkinson's or Parkinson's-like symptoms She reports she is not on any medication for this yet Thyroid nodule Incidentally noted 1.3 cm right thyroid lobe nodule. When I discussed this with her she states that she thinks she is known about it before and has had it tested already but would need to follow-up with her PCP to make sure appropriate surveillance is being done or endocrine as an alternative. I discussed the need for admission with the emergency provider. -DVT prophylaxis: [] Lovenox [] Heparin [] SCDs [x] Encourage ambulation [] Already on Anticoagulation [x] Pharmocologic prophylaxis on hold to due risk bleed/procedure [] Low risk, ambulatory [] Both pharmacologic and mechanical contraindicated 56 minutes - Time spent on admission 04/19/2025 Pily Mauro Cameron [id number] Any scheduled follow up appointments No future appointments. Extended Emergency Contact Information Primary Emergency Contact: CameronClaudia Relation: Son Secondary Emergency Contact: CameronNathanael Relation: Son Portions of this note may be electronically transcribed. Please forward a copy of this H&P to the primary care physician. [1] Past Medical History: Diagnosis Date AA (aortic aneurysm) (HCC) Anxiety Aspirin long-term use history Asthma Bipolar 1 disorder (HCC) Chronic kidney disease Depression Difficulty walking High blood pressure Lack of coordination Mitral valve insufficiency Muscle weakness Presence of intraocular lens Repeated falls Rhabdomyolysis Sleep apnea Suicidal ideations Traumatic subarachnoid hemorrhage without loss of consciousness (HCC) [2] Past Surgical History: Procedure Laterality Date CERVICAL SPINE SURGERY 03/02/2023 C3-C6 ANTERIOR CERVICAL DECOMPRESSION, FUSION HYSTERECTOMY THYROID SURGERY N/A half [3] Allergies Allergen Reactions Sulfa Antibiotics Itching and Swelling Other reaction(s): Other: See Comments Facial swelling Milk [Milk (Cow)] Other Abdominal bloating [4] Family History Problem Relation Name Age of Onset Cancer Mother No Known Problems Father [5] potassium chloride CR, 40 mEq, Oral, Once [6] PRN medications: morphine sulfate, naloxone, oxyCODONE [7] documented in this encounter [facility] 04-19-2025 Emergency department Note Pt back to room from imaging. [facility] 04-19-2025 Emergency department Note Pt back to room from imaging. Pt off unit to imaging. Nurse Chel called for update Emergency Department Encounter [facility] ED Patient: Pily Barnes : 1950 Date of Evaluation: 04/19/2025 ED Supervising Physician: Javon Boone DO I personally evaluated Pily Barnes and made/approved the management plan and take responsibility for the patient management. This will serve as my Supervisory note and shared attestation. I did perform a substantive portion of the visit including all aspects of the Medical Decision Making. I wore appropriate PPE for the entirety of this encounter. In brief, Pily Barnes is a 74 y.o. that presents to the emergency department with complaints of right-sided hip pain status post fall. Patient reports that she was at the sink washing, lost her balance and fell. She was unable to catch herself. She now endorsing back and right-sided hip pain. She denies any fevers, chills, loss of bladder or bowel control. No recent travel. No known sick contacts. Focused exam: On exam, vitals stable. Gen: Nontoxic appearing. Head: NC/AT. CV: RRR. Resp: CTA bilaterally. Abd: Abd soft and notender. Back: No midline vertebral tenderness, no stepoff, no deformity Ext: RLE ext rotated, shortened Neuro: No focal neurologic deficit. Skin: No obvious rashes, warm, dry Brief ED course/MDM: Patient with hx of HTN< syncope presents to the ED with a chief complaint of fall, hip pain. Additional information found above and also refer to joyce/resident note for further details. On exam, vitals stable. Per above. Otherwise per above Additional information found above and also refer to joyce/resident note for further details. (Differential diagnosis) With consideration of age, sex/gender, risk factors, to evaluate patient for high risk causes of morbidity and mortality such as, but not limited to, fracture vs strain vs contusion vs other Today we will obtain imaging Today we will obtain labwork We will also provide medical/symptomatic management with pain control. Diagnostic tests considered but not performed: n/a Independently reviewed external documents including previous fm notes. Per chart review, patient has been followed for or diagnosed with htn, ckd in the past. Patient's condition and/or care was impacted by these chronic conditions. Will consider these factors in evaluation and management for today's care. Discussed plan with patient who agrees with current plan. Diagnostics interpreted by me: Per below I personally discussed the patient's management with other clinicians: Per joyce End of visit medical decision making Patient was reassessed. Resting comfortably. No acute distress. Independently reviewed and interpreted the lab results which demonstrated the following: No leukocytosis, no significant anemia, mildly hypokalemic at 3.2 otherwise no major electrolyte abnormalities, creatinine function within normal limits Independently reviewed and interpreted CXR which demonstrated the following: No acute intrathoracic abnormalities. No obvious consolidation. Sharp costophrenic angles. No pneumothorax. Trachea midline. Independently reviewed and interpreted EKG which demonstrated the following: Sinus rhythm Incomplete left bundle branch block LVH with secondary repolarization abnormality Rhythm Strip: The color television console monitor was ordered secondary to the patient's history of FRACTURE and to monitor the patient for dysrhythmia. I performed an independent interpretation of the rhythm strip which showed no arrhythmia, no signs of ischemic changes, no ectopy. Independently reviewed the reports of other imaging which demonstrated the following: No acute ICH, no SDH, no epidural hematoma, no acute intracranial abnormalities, no fractures, no midline shift No acute abnormality of the cervical spine. Incidentally noted 1.3 cm right thyroid lobe nodule. Follow-up recommended as below. CHEST (with CT thoracic spine): 1. No traumatic intrathoracic process. 2. No traumatic fracture of the thoracic spine. 3. Atherosclerotic disease. Ascending aortic aneurysm again measures 4.6 cm, not significantly changed from 12/17/2023. ABDOMEN/PELVIS (with CT lumbar spine): 1. Acute RIGHT femur intertrochanteric comminuted impaction fracture. Osteopenia. 2. No traumatic fracture of the lumbar spine. 3. Other: Persistent elevation of the right hemidiaphragm. Colonic diverticulosis. Atherosclerotic disease. Parapelvic cysts. Response to medical management provided in the ED: Pain is well-managed. Discussed the the potential disposition plans. Patient would prefer to stay in at [facility]. (Consults) Discussed care with: Discussed case with application packaging consultant, admitting team. They agree with current work up and management. They will evaluate and provide further recommendations, please refer to their note for detailed explanation. They agree to admit the patient for further workup and management. Discussed case with application packaging consultant, ortho. They agree with current work up and management. They will evaluate and provide further recommendations, please refer to their note for detailed explanation. Patient can stay at [facility] however the surgery will be done on Monday. Discussed all results with patient and/or family members. They verbalize understanding. Offered admission for further management. Discussed risks, benefits and alternatives for further management in the hospital. Due to high risk of morbidity and mortality of the stated findings and results, patient will be admitted for further management and care. Patient is agreeable to the plan. Discussed patient information, presentation and workup with admitting team. Admitting team is agreeable to current workup and evaluation. They will admit the patient and provide further care. Pending results to be followed by primary admitting team. Patient will need med surg level of care and not appropriate for lower acuity location of care due to risk of morbidity and mortality Patient's condition and/or care was impacted by hip fx Patient's condition and/or care was significantly impacted by social determinants of health including: none All diagnostic, treatment, and disposition decisions were made by myself in conjunction with the Resident. I also supervised javier portions of any procedures performed by the Resident. For all further details of the patient's emergency department visit, please see their documentation. (Comment: Please note this report has been produced using speech recognition software and may contain errors related to that system including errors in grammar, punctuation, and spelling, as well as words and phrases that may be inappropriate. If there are any questions or concerns please feel free to contact the dictating provider for clarification.) Javon Boone DO [employer] Javon Boone DO 04/19/251956 EMERGENCY DEPARTMENT ENCOUNTER Pt Name: Pily Barnes Birthdate 1950 Date of evaluation: 04/19/2025 ED Provider: Mayco Bhakta II, MD CHIEF COMPLAINT Chief Complaint Patient presents with Hip Pain Right hip pain, + shortening after fall in bathroom HISTORY OF PRESENT ILLNESS (Location/Symptom, Timing/Onset, Context/Setting, Quality, Duration, Modifying Factors, Severity) Note limiting factors. I wore appropriate PPE for the entirety of this encounter. HPI Pily Barnes is a 74 y.o. who presents to the emergency department with concerns for hip pain after a fall. Patient states that she sustained a mechanical fall approximately 2 hours prior to arrival. She states that she slipped and fell. She states that she does not think that she hit her head but she did land on her back and injured her right hip. She denies any other symptoms at the time of my evaluation other than severe right hip pain. Nursing Notes were reviewed. Limitations to history: Outside historians: REVIEW OF SYSTEMS Review of Systems Pertinent positives and negatives as per HPI. PAST MEDICAL HISTORY Medical History[1] SURGICAL HISTORY Surgical History[2] CURRENT MEDICATIONS Current Discharge Medication List CONTINUE these medications which have NOT CHANGED Details amLODIPine (Norvasc) 2.5 MG tablet Take 2.5 mg by mouth daily. ARIPiprazole (Abilify) 5 MG tablet Take 5 mg by mouth daily. Breo Ellipta 100-25 MCG/ACT aerosol powder Inhale 1 puff daily. buPROPion XL (Wellbutrin XL) 300 MG 24 hr tablet Take 300 mg by mouth daily. FLUoxetine (PROzac) 20 MG capsule Take 60 mg by mouth daily. fluticasone (Flonase) 50 MCG/ACT nasal spray Administer 2 sprays into each nostril Daily as needed for allergies. lamoTRIgine (LaMICtal) 25 MG tablet Take 50 mg by mouth daily. Loratadine 10 MG capsule Take 10 mg by mouth daily. losartan (Cozaar) 50 MG tablet Take 100 mg by mouth daily. Multiple Vitamin (High Potency Multivitamin) tablet Take 1 tablet by mouth daily. nystatin (Mycostatin) 355117 UNIT/GM powder Apply 1 Application topically 2 times daily. Under breasts Omeprazole 20 MG tablet delayed-release albuterol 108 (90 Base) MCG/ACT inhaler INHALE TWO PUFFS BY MOUTH INTO THE LUNGS instructed EVERY 4 HOURS NEEDED FOR WHEEZING OR FOR SHORTNESS OF BREATH Calcium + Vitamin D3 600-10 MG-MCG tablet Take 1 tablet by mouth daily. 600/400 cholecalciferol (Vitamin D-3) 125 MCG (5000 UT) tablet Take 2,000 Units by mouth daily. clonazePAM (KlonoPIN) 0.5 MG tablet Take 0.5 mg by mouth Daily as needed for anxiety. famotidine (Pepcid) 20 MG tablet Take by mouth. Invega Sustenna 39 MG/0.25ML suspension prefilled syringe Inject 39 mg into the shoulder, thigh, or buttocks every 30 (thirty) days. lisinopril 20 MG tablet Take 20 mg by mouth daily. ALLERGIES Sulfa antibiotics and Milk [milk (cow)] FAMILY HISTORY Family History[3] SOCIAL HISTORY Social History[4] SCREENINGS Lennox Coma Scale Best Eye Response: Spontaneous Best Verbal Response: Oriented Best Motor Response: Follows commands Lennox Coma Scale Score: 15 PHYSICAL EXAM ED Triage Vitals [04/19/25 1535] Temp Heart Rate Resp BP 36.6 C (97.9 F) 65 18 131/79 SpO2 Temp Source Heart Rate Source Patient Position 95 % Oral Monitor Lying BP Location FiO2 (%) Left arm -- Physical Exam Vitals and nursing note reviewed. Constitutional: General: She is not in acute distress. Appearance: She is well-developed. HENT: Head: Normocephalic and atraumatic. Eyes: Conjunctiva/sclera: Conjunctivae normal. Cardiovascular: Rate and Rhythm: Normal rate and regular rhythm. Heart sounds: No murmur heard. Pulmonary: Effort: Pulmonary effort is normal. No respiratory distress. Breath sounds: Normal breath sounds. Abdominal: Palpations: Abdomen is soft. Tenderness: There is no abdominal tenderness. Musculoskeletal: General: No swelling. Cervical back: Neck supple. Comments: Right sided hip pain with palpation and range of motion. Skin: General: Skin is warm and dry. Capillary Refill: Capillary refill takes less than 2 seconds. Neurological: Mental Status: She is alert. Psychiatric: Mood and Affect: Mood normal. DIAGNOSTIC RESULTS RADIOLOGY (Per Emergency Physician): Interpretation per the Radiologist below, if available at the time of this note: XR chest 1 view Final Result Lines, tubes, and devices:None. Lungs and pleura:Elevated right hemidiaphragm. Minimal streaky bibasilar opacities, likely atelectasis. No consolidation. No pleural effusion or pneumothorax. Cardiomediastinal silhouette: Normal cardiac silhouette. Ascending aortic aneurysm, better assessed on recent CT. Other: Degenerative changes of the spine. Cervical fusion hardware partially visualized. Report Dictated on Electronically Signed By: Albino Gamez MD Electronically Signed Date/Time: 04/19/2025 10:52 PM EDT XR pelvis 1 or 2 views Final Result Acute intertrochanteric comminuted fracture of the right proximal femur. Osteopenia. Report Dictated on Electronically Signed By: Cee Del Angel MD Electronically Signed Date/Time: 04/19/2025 8:00 PM EDT XR femur right 2+ views Final Result Acute intertrochanteric comminuted fracture of the right proximal femur. Osteopenia. Report Dictated on Electronically Signed By: Cee Del Angel MD Electronically Signed Date/Time: 04/19/2025 8:[address] Lumbar Spine Recon Final Result CHEST (with CT thoracic spine): 1. No traumatic intrathoracic process. 2. No traumatic fracture of the thoracic spine. 3. Atherosclerotic disease. Ascending aortic aneurysm again measures 4.6 cm, not significantly changed from 12/17/2023. ABDOMEN/PELVIS (with CT lumbar spine): 1. Acute RIGHT femur intertrochanteric comminuted impaction fracture. Osteopenia. 2. No traumatic fracture of the lumbar spine. 3. Other: Persistent elevation of the right hemidiaphragm. Colonic diverticulosis. Atherosclerotic disease. Parapelvic cysts. Report Dictated on Electronically Signed By: Cee Del Angel MD Electronically Signed Date/Time: 04/19/2025 5:[address] Thoracic spine Recon Final Result CHEST (with CT thoracic spine): 1. No traumatic intrathoracic process. 2. No traumatic fracture of the thoracic spine. 3. Atherosclerotic disease. Ascending aortic aneurysm again measures 4.6 cm, not significantly changed from 12/17/2023. ABDOMEN/PELVIS (with CT lumbar spine): 1. Acute RIGHT femur intertrochanteric comminuted impaction fracture. Osteopenia. 2. No traumatic fracture of the lumbar spine. 3. Other: Persistent elevation of the right hemidiaphragm. Colonic diverticulosis. Atherosclerotic disease. Parapelvic cysts. Report Dictated on Electronically Signed By: Cee Del Angel MD Electronically Signed Date/Time: 04/19/2025 5:[address] femur right wo IV contrast Final Result 1. Acute RIGHT femur intertrochanteric comminuted impaction fracture. Osteopenia. 2. Colonic diverticulosis. Report Dictated on Electronically Signed By: Cee Del Angel MD Electronically Signed Date/Time: 04/19/2025 5:[address] chest abdomen pelvis without contrast Final Result CHEST (with CT thoracic spine): 1. No traumatic intrathoracic process. 2. No traumatic fracture of the thoracic spine. 3. Atherosclerotic disease. Ascending aortic aneurysm again measures 4.6 cm, not significantly changed from 12/17/2023. ABDOMEN/PELVIS (with CT lumbar spine): 1. Acute RIGHT femur intertrochanteric comminuted impaction fracture. Osteopenia. 2. No traumatic fracture of the lumbar spine. 3. Other: Persistent elevation of the right hemidiaphragm. Colonic diverticulosis. Atherosclerotic disease. Parapelvic cysts. Report Dictated on Electronically Signed By: Cee Del Angel MD Electronically Signed Date/Time: 04/19/2025 5:[address] cervical spine wo IV contrast Final Result No acute intracranial hemorrhage or mass effect. CT CERVICAL SPINE: TECHNIQUE: Transaxial sequence through the cervical spine. Coronal and sagittal reconstructions included. Dose reduction was employed with automated exposure control. COMPARISON: CT cervical spine 01/12/2023 FINDINGS: Cervical vertebrae and joints: Degenerative changes at the craniocervical junction that is otherwise maintained. Demineralized osseous structures. Status post C3-C6 ACDF. The hardware appears intact without evidence of loosening. No acute fracture. No suspicious osseous abnormality. Multilevel facet arthrosis and uncovertebral hypertrophy. Intervertebral disc spaces and spinal canal: Disc height loss at C2-C3 and within the lower cervical/upper thoracic spine. No severe spinal canal stenosis. Soft tissues: No prevertebral edema. Surgically absent left thyroid lobe. Right thyroid lobe nodules measure up to 1.3 cm in size. Other: Scarring at both lung apices. IMPRESSION: No acute abnormality of the cervical spine. Incidentally noted 1.3 cm right thyroid lobe nodule. Follow-up recommended as below. Follow-up thyroid ultrasound is recommended for any suspicious thyroid nodule. Suspicious thyroid nodules include: Nodules "e1 cm in patients <35 years old Nodules "e1.5 cm in patients "e35 years old Nodules with suspicious lymph nodes (enlarged, cystic, calcified, or hyperenhancing) Nodules with local tissue invasion Patients with comorbidities or limited life expectancy should not have further evaluation of the thyroid nodule, unless it is warranted clinically, or specifically requested by the patient or referring physician. Reference: Brenna Girard. et al Managing incidental thyroid nodules detected on imaging: White paper of the ACR incidental thyroid findings committee" J Am Velasquez Radiol 2015;12:143-150. Report Dictated on Electronically Signed By: Kendy Strickland DO Electronically Signed Date/Time: 04/19/2025 4:[address] head wo IV contrast Final Result No acute intracranial hemorrhage or mass effect. CT CERVICAL SPINE: TECHNIQUE: Transaxial sequence through the cervical spine. Coronal and sagittal reconstructions included. Dose reduction was employed with automated exposure control. COMPARISON: CT cervical spine 01/12/2023 FINDINGS: Cervical vertebrae and joints: Degenerative changes at the craniocervical junction that is otherwise maintained. Demineralized osseous structures. Status post C3-C6 ACDF. The hardware appears intact without evidence of loosening. No acute fracture. No suspicious osseous abnormality. Multilevel facet arthrosis and uncovertebral hypertrophy. Intervertebral disc spaces and spinal canal: Disc height loss at C2-C3 and within the lower cervical/upper thoracic spine. No severe spinal canal stenosis. Soft tissues: No prevertebral edema. Surgically absent left thyroid lobe. Right thyroid lobe nodules measure up to 1.3 cm in size. Other: Scarring at both lung apices. IMPRESSION: No acute abnormality of the cervical spine. Incidentally noted 1.3 cm right thyroid lobe nodule. Follow-up recommended as below. Follow-up thyroid ultrasound is recommended for any suspicious thyroid nodule. Suspicious thyroid nodules include: Nodules "e1 cm in patients <35 years old Nodules "e1.5 cm in patients "e35 years old Nodules with suspicious lymph nodes (enlarged, cystic, calcified, or hyperenhancing) Nodules with local tissue invasion Patients with comorbidities or limited life expectancy should not have further evaluation of the thyroid nodule, unless it is warranted clinically, or specifically requested by the patient or referring physician. Reference: Brenna Graham et al Managing incidental thyroid nodules detected on imaging: White paper of the ACR incidental thyroid findings committee" J Am Velasquez Radiol 2015;12:143-150. Report Dictated on Electronically Signed By: Kendy Strickland DO Electronically Signed Date/Time: 04/19/2025 4:59 PM EDT LABS: Labs Reviewed CBC WITH AUTO DIFFERENTIAL - Abnormal Result Value Auto WBC 10.5 RBC 4.49 Hemoglobin 13.5 Hematocrit 40.6 MCV 90.4 MCH 30.1 MCHC 33.3 RDW 13.3 Platelets 165 MPV 9.9 nRBC 0.0 Neutrophils Relative 87.4 (*) Lymphocytes Relative 6.6 (*) Monocytes Relative 4.5 (*) Eosinophils Relative 0.7 Basophils Relative 0.3 Immature Grans % 0.5 Neutrophils Absolute 9.2 (*) Lymphocytes Absolute 0.7 (*) Monocytes Absolute 0.5 Eosinophils Absolute 0.1 Basophils Absolute 0.0 Immature Grans Absolute 0.1 (*) BASIC METABOLIC PANEL - Abnormal SODIUM 141 POTASSIUM 3.2 (*) CHLORIDE 116 (*) CARBON DIOXIDE 18 (*) UREA NITROGEN 20 CREATININE 0.62 GLUCOSE 93 CALCIUM 7.2 (*) ANION GAP 7 eGFR >90.0 PROTHROMBIN TIME - Normal PROTHROMBIN TIME 10.4 INR 1.0 BLOOD TYPE AND SCREEN GEL ABO Grouping AB Antibody Screen NEG Rh Type POS All other labs were within normal range or not returned as of this dictation. EMERGENCY DEPARTMENT COURSE and DIFFERENTIAL DIAGNOSIS/MDM: Vitals: Vitals: 04/19/25 1535 04/19/25 1846 04/19/251 BP: 131/79 117/66 136/86 BP Location: Left arm Left arm Right arm Patient Position: Lying Sitting Lying Pulse: 65 63 67 Resp: 18 16 16 Temp: 36.6 C (97.9 F) 36.6 C (97.8 F) TempSrc: Oral Temporal SpO2: 95% 94% 97% Weight: 75.3 kg (165 lb 14.4 oz) 74.8 kg (165 lb) Height: 1.524 m (5') 1.524 m (5') 74-year-old female presenting to the emergency department after a mechanical fall. Patient has no syncopal prodrome or alarm symptoms. CBC, BMP, and coagulation panel not demonstrating any abnormalities other than mild hypokalemia which was treated with oral potassium replacement. Patient has stable vitals and was given Tylenol for mild pain. Obtain CT scan of the head, cervical spine, thoracic spine, lumbar spine, and pelvis. Patient has a right sided intertrochanteric fracture. Also obtain CT of the femur, which shows comminuted impaction of the fracture. Spoke with orthopedic service who advised medical admission for likely ORIF on Monday. Patient admitted to the [facility] hospitalist service. Diagnoses as of 04/19/252319 Closed nondisplaced intertrochanteric fracture of right femur, initial encounter ([facility]) External records reviewed: Diagnostics interpreted by me: Discussions with other clinicians: Chronic conditions impacting care: Social determinants of health affecting care: ED Medications managed: Medications potassium chloride CR (Klor-Con M10) ER tablet 40 mEq (has no administration in time range) oxyCODONE (Roxicodone) immediate release tablet 5 mg (5 mg Oral Given 04/19/252049) morphine injection 4 mg (has no administration in time range) naloxone (Narcan) injection 0.4 mg (has no administration in time range) acetaminophen (Tylenol) tablet 1,000 mg (1,000 mg Oral Given 04/19/25 172) Prescription drugs considered: PROCEDURES: Unless otherwise noted below, none Procedures FINAL IMPRESSION 1. Closed nondisplaced intertrochanteric fracture of right femur, initial encounter ([facility]) 2. Closed displaced intertrochanteric fracture of right femur, initial encounter ([facility]) DISPOSITION Admit 04/19/2025 07:49:32 PM PATIENT REFERRED TO: No follow-up provider specified. DISCHARGE MEDICATIONS: Current Discharge Medication List (Comment: Please note this report has been produced using speech recognition software and may contain errors related to that system including errors in grammar, punctuation, and spelling, as well as words and phrases that may be inappropriate. If there are any questions or concerns please feel free to contact the dictating provider for clarification.) Mayco Bhakta II, MD (electronically signed) Emergency Medicine Provider [1] Past Medical History: Diagnosis Date Anxiety Aspirin long-term use history Asthma Bipolar 1 disorder (HCC) Chronic kidney disease Depression Difficulty walking High blood pressure Lack of coordination Mitral valve insufficiency Muscle weakness Presence of intraocular lens Repeated falls Rhabdomyolysis Sleep apnea Suicidal ideations Traumatic subarachnoid hemorrhage without loss of consciousness (HCC) [2] Past Surgical History: Procedure Laterality Date CERVICAL SPINE SURGERY 03/02/2023 C3-C6 ANTERIOR CERVICAL DECOMPRESSION, FUSION HYSTERECTOMY THYROID SURGERY N/A half [3] Family History Problem Relation Name Age of Onset Cancer Mother No Known Problems Father [4] Social History Socioeconomic History Marital status: Tobacco Use Smoking status: Never Smokeless tobacco: Never Vaping Use Vaping status: Never Used Substance and Sexual Activity Alcohol use: Never Drug use: Never Social Drivers of Health Financial Resource Strain: Low Risk (03/01/2022) Received from [facility] Overall Financial Resource Strain (CARDIA) Difficulty of Paying Living Expenses: Not hard at all Food Insecurity: No Food Insecurity (03/01/2022) Received from [facility] Hunger Vital Sign Worried About Running Out of Food in the Last Year: Never true Ran Out of Food in the Last Year: Never true Transportation Needs: No Transportation Needs (03/03/2023) PRAPARE - Transportation Lack of Transportation (Medical): No Lack of Transportation (Non-Medical): No Intimate Partner Violence: Not At Risk (04/19/2025) Humiliation, Afraid, Rape, and Kick questionnaire Fear of Current or Ex-Partner: No Emotionally Abused: No Physically Abused: No Sexually Abused: No Housing Stability: High Risk (03/03/2023) Housing Stability Vital Sign Unable to Pay for Housing in the Last Year: No Number of Places Lived in the Last Year: 1 Unstable Housing in the Last Year: Yes Mayco Bhakta II, MD Resident 04/19/25 6713 Cosigned by Javon Boone DO at 04/20/2025 2:27 PM EDT Pt arrived via EMS from [facility] after a fall in the bathroom. Pt denies hitting head or LOC. Denies blood thinners. Pt reports she slipped in the bathroom and tried to break her fall and hit the wall and the floor. Pt complains of right hip pain, 4/10 when laying still, 9/10 with movement. + right leg shortening noted. Pt normally uses walker or wheelchair for movement. Reports she was using her walker prior to falling, but did not have walker at time of incident, but reports she is supposed to have aide with her. Pt is A&O x 4, VSS and able to answer questions appropriately. documented in this encounter [facility] 04-19-2025 Emergency department Note Pt off unit to imaging. [facility] 04-19-2025 Consult note Formatting of th is note is different from the original. Ortho Consult Patient: Pily Barnes Date of : 1950 Acct: [id number] PCP: No primary care provider on file. Date of Admission: 04/19/2025 Date of Service: Pt seen/examined on 04/19/2025 Chief Complaint: right hip pain History Of Present Illness: 74 y.o. female who presents with right hip pain after a fall from standing in the bathroom of his assisted living facility. The patient was unable to get up and had to call for help. Denies significant pain besides right hip. Denies head trauma and loss of consciousness. Denies numbness and tingling in affected extremity. PMH of anxiety, asthma, CKD, HTN, mitral valve insufficiency, SAH. Lives in assisted living. Orthopaedic surgery history C3-[address] Mcgill. Patient said they do not know why they had it and never had any neck issues. She has chronic numbness in her small fingers and ring fingers bilaterally. Patient ambulation status: mild difficulty and ambulates with: walker and sometimes uses wheelchair. Antiplatelets/Anticoagulation includes: none. Hx from chart and/or Pt. Past Medical History: Medical History[1] Past Surgical History: Surgical History[2] Home Medications: Prior to Admission medications Medication Sig Start Date End Date Taking? Authorizing Provider albuterol 108 (90 Base) MCG/ACT inhaler INHALE TWO PUFFS BY MOUTH INTO THE LUNGS instructed EVERY 4 HOURS NEEDED FOR WHEEZING OR FOR SHORTNESS OF BREATH 02/22/22 Historical Provider, amLODIPine (Norvasc) 2.5 MG tablet Take 2.5 mg by mouth daily. 09/27/22 Historical Provider, ARIPiprazole (Abilify) 5 MG tablet Take 5 mg by mouth daily. 11/03/22 Historical Provider, MD Bosch Ellipta 100-25 MCG/ACT aerosol powder Inhale 1 puff daily. 11/05/22 Historical Provider, buPROPion XL (Wellbutrin XL) 300 MG 24 hr tablet Take 300 mg by mouth daily. 11/03/22 Historical Provider, Calcium + Vitamin D3 600-10 MG-MCG tablet Take 1 tablet by mouth daily. 600/400 10/20/22 Historical Provider, cholecalciferol (Vitamin D-3) 125 MCG (5000 UT) tablet Take 2,000 Units by mouth daily. Historical Provider, clonazePAM (KlonoPIN) 0.5 MG tablet Take 0.5 mg by mouth Daily as needed for anxiety. Historical Provider, famotidine (Pepcid) 20 MG tablet Take by mouth. Historical Provider, FLUoxetine (PROzac) 20 MG capsule Take 60 mg by mouth daily. 09/23/22 Historical Provider, fluticasone (Flonase) 50 MCG/ACT nasal spray Administer 2 sprays into each nostril Daily as needed for allergies. 02/22/22 Historical Provider, Invega Sustenna 39 MG/0.25ML suspension prefilled syringe Inject 39 mg into the shoulder, thigh, or buttocks every 30 (thirty) days. 09/23/22 Historical Provider, lamoTRIgine (LaMICtal) 25 MG tablet Take 50 mg by mouth daily. 11/07/22 Historical Provider, lisinopril 20 MG tablet Take 20 mg by mouth daily. 11/08/22 Historical Provider, Loratadine 10 MG capsule Take 10 mg by mouth daily. Historical Provider, Multiple Vitamin (High Potency Multivitamin) tablet Take 1 tablet by mouth daily. 09/27/22 Historical Provider, nystatin (Mycostatin) 049796 UNIT/GM powder Apply 1 Application topically 2 times daily. Under breasts Historical Provider, Omeprazole 20 MG tablet delayed-release 04/26/23 Historical Provider, Current Hospital Medications: Current Medications[3] Allergies: Sulfa antibiotics and Milk [milk (cow)] Social History: Social History Socioeconomic History Marital status: Spouse name: Not on file Number of children: Not on file Years of education: Not on file Highest education level: Not on file Occupational History Not on file Tobacco Use Smoking status: Never Smokeless tobacco: Never Vaping Use Vaping status: Never Used Substance and Sexual Activity Alcohol use: Never Drug use: Never Sexual activity: Not on file Other Topics Concern Not on file Social History Narrative Not on file Social Drivers of Health Financial Resource Strain: Low Risk (03/01/2022) Received from [facility] Overall Financial Resource Strain (CARDIA) Difficulty of Paying Living Expenses: Not hard at all Food Insecurity: No Food Insecurity (03/01/2022) Received from [facility] Hunger Vital Sign Worried About Running Out of Food in the Last Year: Never true Ran Out of Food in the Last Year: Never true Transportation Needs: No Transportation Needs (03/03/2023) PRAPARE - Transportation Lack of Transportation (Medical): No Lack of Transportation (Non-Medical): No Physical Activity: Not on file Stress: Not on file Social Connections: Not on file Intimate Partner Violence: Not At Risk (03/02/2023) Humiliation, Afraid, Rape, and Kick questionnaire Fear of Current or Ex-Partner: No Emotionally Abused: No Physically Abused: No Sexually Abused: No Housing Stability: High Risk (03/03/2023) Housing Stability Vital Sign Unable to Pay for Housing in the Last Year: No Number of Places Lived in the Last Year: 1 Unstable Housing in the Last Year: Yes Family History: Family History[4] Further Family History is noncontributory to this injury. REVIEW OF SYSTEMS: Review of Systems - General ROS: negative for - chills, fatigue, fever, malaise or night sweats Psychological ROS: negative Ophthalmic ROS: negative ENT ROS: negative for - headaches or sore throat Hematological and Lymphatic ROS: negative for - bleeding problems or blood clots Respiratory ROS: no cough, shortness of breath, or wheezing Cardiovascular ROS: no chest pain or dyspnea on exertion Gastrointestinal ROS: negative Musculoskeletal ROS: See HPI Neurological ROS: negative for - bowel and bladder control changes, gait disturbance or numbness/tingling All other systems reviewed and are negative PHYSICAL EXAM: BP 117/66 (BP Location: Left arm, Patient Position: Sitting) Pulse 63 Temp 36.6 C (97.9 F) (Oral) Resp 16 Ht 1.524 m (5') Wt 75.3 kg (165 lb 14.4 oz) SpO2 94% BMI 32.40 kg/m GENERAL APPEARANCE: Awake and oriented x3. No acute distress, except appropriate to injury. MOOD AND AFFECT: Calm appropriate to situation GAIT AND STATION: Patient is in bed and unable to ambulate secondary to known injury. REFLEXES: No clonus or Babinski. COORDINATION and BALANCE: Patient is grossly coordinated unable to ambulate secondary to known injury. Lymphadenopathy: none on examination of the affected extremity(s) Right Upper Extremity: -No obvious pain or deformity to inspection with normal joint range of motion, stability, and muscle strength except noted below -No TTP over clavicle, shoulder, humerus, elbow, forearm, wrist, hand, or fingers -TTP: nontender throughout extremity -Radial pulse palpable -SILT in radial/median/ ulnar nerve distributions -Motor + AIN/PIN/ulnar nerve functions -No Lymphedema -Skin intact except where noted below -Painless pROM at shoulder/elbow/wrist Left Upper Extremity: -No obvious pain or deformity to inspection with normal joint range of motion, stability, and muscle strength except noted below -No TTP over clavicle, shoulder, humerus, elbow, forearm, wrist, hand, or fingers -TTP: nontender throughout extremity -Radial pulse palpable -SILT in radial/median/ ulnar nerve distributions -Motor + AIN/PIN/ulnar nerve functions -No Lymphedema -Skin intact except where noted below -Painless pROM at shoulder/elbow/wrist Right Lower Extremity: -No obvious pain or deformity to inspection with normal joint range of motion, stability, and muscle strength except noted below. Extremity shortened and externally rotated. Skin over lateral hip is clean and dry without signs of wounds or breakdown. -No TTP over knee, tibia, lateral mal, medial mal, calc, midfoot, forefoot -TTP: hip -Pulse: DP Palpable -SILT in the superficial peroneal, deep peroneal, tibial, sural, saphenous nerve distributions -Motor function of tibialis anterior, extensor hallucis longus, and gactrocsoleus complex intact -No Lymphedema -Skin intact except where noted below -Painless pROM at knee/ankle - + logroll Left Lower Extremity: -No obvious pain or deformity to inspection with normal joint range of motion, stability, and muscle strength except noted below -No TTP over pelvis, hip, thigh, knee, tibia, lateral mal, medial mal, calc, midfoot, forefoot -TTP: Nontender throughout extremity -Pulse: DP Palpable -SILT in the superficial peroneal, deep peroneal, tibial, sural, saphenous nerve distributions -Motor function of quad, tibialis anterior, extensor hallucis longus, and gactrocsoleus complex intact -No Lymphedema -Skin intact except where noted below -Painless pROM at hip/knee/ankle Labs: CBC: Lab Results Component Value Date WBC 10.5 04/19/2025 RBC 4.49 04/19/2025 BMP: Lab Results Component Value Date GLUCOSE 93 04/19/2025 CO2 18 (L) 04/19/2025 BUN 20 04/19/2025 CREATININE 0.62 04/19/2025 CALCIUM 7.2 (L) 04/19/2025 PT/INR: Lab Results Component Value Date INR 1.0 04/19/2025 Type and Screen: Lab Results Component Value Date RH POS 04/19/2025 CRP: No results found for: "CRP" ESR: No results found for: SEDRATE HgBA1c: No components found for: LABA1C The above labs were reviewed by me. Radiology: The below images were independently reviewed and interpreted XR: Right hip: Right intertrochanteric femur fracture Pelvis: Right intertrochanteric femur fracture CT: Cervical spine: There is no acute fracture or dislocation of the cervical spine. There is anterior cervical discectomy and fusion plate and cages from C3-C6 with evidence of good osseous fusion. There is no spondylolisthesis noted. There is mild loss of normal cervical lordosis. Facet joints appear congruous bilaterally at all visualized levels of the cervical spine there is diffuse facet arthropathy throughout. There is no bony impingement on the cervical spinal canal. Chest/abdomen/pelvis: There is no acute fracture or dislocation of the thoracic spine. There is hyperkyphosis. There is no bony impingement on thoracic spinal canal. Facet joints appear congruous bilaterally throughout the thoracic spine and no spondylolisthesis is noted. There is no acute fracture or dislocation of the lumbar spine. There is grade 1 anterolisthesis of L4 on L5 and vacuum disc phenomenon at L4-5 and L5-S1. There is no bony impingement of the lumbar spinal canal maintenance of normal lumbar lordosis. Facet joints appear congruous bilaterally throughout the lumbar spine with diffuse facet arthropathy throughout. There is no acute fracture or dislocation of the bony pelvis. Pubic symphysis and bilateral SI joints do not appear widened. Bilateral femoral heads are reduced within the acetabulum. Right intertrochanteric femur fracture is again visualized. Femur: Acute comminuted intertrochanteric right femur fracture. No other acute fracture or dislocation of the femur. Radiology report reviewed. ASSESSMENT: 74 y.o. 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 Rolando Beverly 04/21/25 3287 [1] Past Medical History: Diagnosis Date Anxiety Aspirin long-term use history Asthma Bipolar 1 disorder (HCC) Chronic kidney disease Depression Difficulty walking High blood pressure Lack of coordination Mitral valve insufficiency Muscle weakness Presence of intraocular lens Repeated falls Rhabdomyolysis Sleep apnea Suicidal ideations Traumatic subarachnoid hemorrhage without loss of consciousness (HCC) [2] Past Surgical History: Procedure Laterality Date CERVICAL SPINE SURGERY 03/02/2023 C3-C6 ANTERIOR CERVICAL DECOMPRESSION, FUSION HYSTERECTOMY THYROID SURGERY N/A half [3] No current facility-administered medications for this encounter. Current Outpatient Medications: albuterol 108 (90 Base) MCG/ACT inhaler, INHALE TWO PUFFS BY MOUTH INTO THE LUNGS instructed EVERY 4 HOURS NEEDED FOR WHEEZING OR FOR SHORTNESS OF BREATH, Disp: , Rfl: amLODIPine (Norvasc) 2.5 MG tablet, Take 2.5 mg by mouth daily., Disp: , Rfl: ARIPiprazole (Abilify) 5 MG tablet, Take 5 mg by mouth daily., Disp: , Rfl: Breo Ellipta 100-25 MCG/ACT aerosol powder , Inhale 1 puff daily., Disp: , Rfl: buPROPion XL (Wellbutrin XL) 300 MG 24 hr tablet, Take 300 mg by mouth daily., Disp: , Rfl: Calcium + Vitamin D3 600-10 MG-MCG tablet, Take 1 tablet by mouth daily. 600/400, Disp: , Rfl: cholecalciferol (Vitamin D-3) 125 MCG (5000 UT) tablet, Take 2,000 Units by mouth daily., Disp: , Rfl: clonazePAM (KlonoPIN) 0.5 MG tablet, Take 0.5 mg by mouth Daily as needed for anxiety., Disp: , Rfl: famotidine (Pepcid) 20 MG tablet, Take by mouth., Disp: , Rfl: FLUoxetine (PROzac) 20 MG capsule, Take 60 mg by mouth daily., Disp: , Rfl: fluticasone (Flonase) 50 MCG/ACT nasal spray, Administer 2 sprays into each nostril Daily as needed for allergies., Disp: , Rfl: Invega Sustenna 39 MG/0.25ML suspension prefilled syringe, Inject 39 mg into the shoulder, thigh, or buttocks every 30 (thirty) days., Disp: , Rfl: lamoTRIgine (LaMICtal) 25 MG tablet, Take 50 mg by mouth daily., Disp: , Rfl: lisinopril 20 MG tablet, Take 20 mg by mouth daily., Disp: , Rfl: Loratadine 10 MG capsule, Take 10 mg by mouth daily., Disp: , Rfl: Multiple Vitamin (High Potency Multivitamin) tablet, Take 1 tablet by mouth daily., Disp: , Rfl: nystatin (Mycostatin) 000441 UNIT/GM powder, Apply 1 Application topically 2 times daily. Under breasts, Disp: , Rfl: Omeprazole 20 MG tablet delayed-release, , Disp: , Rfl: [4] Family History Problem Relation Name Age of Onset Cancer Mother No Known Problems Father [facility] [place] Work Phone: 04-19-2025 Emergency department Note Nurse Chel called for update [facility] 04-19-2025 Emergency department Triage note Pt arrived via EMS from [facility] living [facility] after a fall in the bathroom. Pt denies hitting head or LOC. Denies blood thinners. Pt reports she slipped in the bathroom and tried to break her fall and hit the wall and the floor. Pt complains of right hip pain, 4/10 when laying still, 9/10 with movement. + right leg shortening noted. Pt normally uses walker or wheelchair for movement. Reports she was using her walker prior to falling, but did not have walker at time of incident, but reports she is supposed to have aide with her. Pt is A&O x 4, VSS and able to answer questions appropriately. [facility] 04-19-2025 Physician Emergency department Note Emergency Department Encounter [facility] ED Patient: Pily Barnes : 1950 Date of Evaluation: 04/19/2025 ED Supervising Physician: Javon Boone DO I personally evaluated Pily Barnes and made/approved the management plan and take responsibility for the patient management. This will serve as my Supervisory note and shared attestation. I did perform a substantive portion of the visit including all aspects of the Medical Decision Making. I wore appropriate PPE for the entirety of this encounter. In brief, Pily Barnes is a 74 y.o. that presents to the emergency department with complaints of right-sided hip pain status post fall. Patient reports that she was at the sink washing, lost her balance and fell. She was unable to catch herself. She now endorsing back and right-sided hip pain. She denies any fevers, chills, loss of bladder or bowel control. No recent travel. No known sick contacts. Focused exam: On exam, vitals stable. Gen: Nontoxic appearing. Head: NC/AT. CV: RRR. Resp: CTA bilaterally. Abd: Abd soft and notender. Back: No midline vertebral tenderness, no stepoff, no deformity Ext: RLE ext rotated, shortened Neuro: No focal neurologic deficit. Skin: No obvious rashes, warm, dry Brief ED course/MDM: Patient with hx of HTN< syncope presents to the ED with a chief complaint of fall, hip pain. Additional information found above and also refer to joyce/resident note for further details. On exam, vitals stable. Per above. Otherwise per above Additional information found above and also refer to joyce/resident note for further details. (Differential diagnosis) With consideration of age, sex/gender, risk factors, to evaluate patient for high risk causes of morbidity and mortality such as, but not limited to, fracture vs strain vs contusion vs other Today we will obtain imaging Today we will obtain labwork We will also provide medical/symptomatic management with pain control. Diagnostic tests considered but not performed: n/a Independently reviewed external documents including previous fm notes. Per chart review, patient has been followed for or diagnosed with htn, ckd in the past. Patient's condition and/or care was impacted by these chronic conditions. Will consider these factors in evaluation and management for today's care. Discussed plan with patient who agrees with current plan. Diagnostics interpreted by me: Per below I personally discussed the patient's management with other clinicians: Per joyce End of visit medical decision making Patient was reassessed. Resting comfortably. No acute distress. Independently reviewed and interpreted the lab results which demonstrated the following: No leukocytosis, no significant anemia, mildly hypokalemic at 3.2 otherwise no major electrolyte abnormalities, creatinine function within normal limits Independently reviewed and interpreted CXR which demonstrated the following: No acute intrathoracic abnormalities. No obvious consolidation. Sharp costophrenic angles. No pneumothorax. Trachea midline. Independently reviewed and interpreted EKG which demonstrated the following: Sinus rhythm Incomplete left bundle branch block LVH with secondary repolarization abnormality Rhythm Strip: The color television console monitor was ordered secondary to the patient's history of FRACTURE and to monitor the patient for dysrhythmia. I performed an independent interpretation of the rhythm strip which showed no arrhythmia, no signs of ischemic changes, no ectopy. Independently reviewed the reports of other imaging which demonstrated the following: No acute ICH, no SDH, no epidural hematoma, no acute intracranial abnormalities, no fractures, no midline shift No acute abnormality of the cervical spine. Incidentally noted 1.3 cm right thyroid lobe nodule. Follow-up recommended as below. CHEST (with CT thoracic spine): 1. No traumatic intrathoracic process. 2. No traumatic fracture of the thoracic spine. 3. Atherosclerotic disease. Ascending aortic aneurysm again measures 4.6 cm, not significantly changed from 12/17/2023. ABDOMEN/PELVIS (with CT lumbar spine): 1. Acute RIGHT femur intertrochanteric comminuted impaction fracture. Osteopenia. 2. No traumatic fracture of the lumbar spine. 3. Other: Persistent elevation of the right hemidiaphragm. Colonic diverticulosis. Atherosclerotic disease. Parapelvic cysts. Response to medical management provided in the ED: Pain is well-managed. Discussed the the potential disposition plans. Patient would prefer to stay in at [facility]. (Consults) Discussed care with: Discussed case with application packaging consultant, admitting team. They agree with current work up and management. They will evaluate and provide further recommendations, please refer to their note for detailed explanation. They agree to admit the patient for further workup and management. Discussed case with application packaging consultant, ortho. They agree with current work up and management. They will evaluate and provide further recommendations, please refer to their note for detailed explanation. Patient can stay at [facility] however the surgery will be done on Monday. Discussed all results with patient and/or family members. They verbalize understanding. Offered admission for further management. Discussed risks, benefits and alternatives for further management in the hospital. Due to high risk of morbidity and mortality of the stated findings and results, patient will be admitted for further management and care. Patient is agreeable to the plan. Discussed patient information, presentation and workup with admitting team. Admitting team is agreeable to current workup and evaluation. They will admit the patient and provide further care. Pending results to be followed by primary admitting team. Patient will need med surg level of care and not appropriate for lower acuity location of care due to risk of morbidity and mortality Patient's condition and/or care was impacted by hip fx Patient's condition and/or care was significantly impacted by social determinants of health including: none All diagnostic, treatment, and disposition decisions were made by myself in conjunction with the Resident. I also supervised javier portions of any procedures performed by the Resident. For all further details of the patient's emergency department visit, please see their documentation. (Comment: Please note this report has been produced using speech recognition software and may contain errors related to that system including errors in grammar, punctuation, and spelling, as well as words and phrases that may be inappropriate. If there are any questions or concerns please feel free to contact the dictating provider for clarification.) Javon Boone DO [employer] Javon Boone DO 04/19/251956 [facility] Phone: 04-19-2025 Physician Emergency department Note EMERGENCY DEPARTMENT ENCOUNTER Pt Name: Pily Barnes Birthdate 1950 Date of evaluation: 04/19/2025 ED Provider: Mayco Bhakta II, MD CHIEF COMPLAINT Chief Complaint Patient presents with Hip Pain Right hip pain, + shortening after fall in bathroom HISTORY OF PRESENT ILLNESS (Location/Symptom, Timing/Onset, Context/Setting, Quality, Duration, Modifying Factors, Severity) Note limiting factors. I wore appropriate PPE for the entirety of this encounter. HPI Pily Barnes is a 74 y.o. who presents to the emergency department with concerns for hip pain after a fall. Patient states that she sustained a mechanical fall approximately 2 hours prior to arrival. She states that she slipped and fell. She states that she does not think that she hit her head but she did land on her back and injured her right hip. She denies any other symptoms at the time of my evaluation other than severe right hip pain. Nursing Notes were reviewed. Limitations to history: Outside historians: REVIEW OF SYSTEMS Review of Systems Pertinent positives and negatives as per HPI. PAST MEDICAL HISTORY Medical History[1] SURGICAL HISTORY Surgical History[2] CURRENT MEDICATIONS Current Discharge Medication List CONTINUE these medications which have NOT CHANGED Details amLODIPine (Norvasc) 2.5 MG tablet Take 2.5 mg by mouth daily. ARIPiprazole (Abilify) 5 MG tablet Take 5 mg by mouth daily. Breo Ellipta 100-25 MCG/ACT aerosol powder Inhale 1 puff daily. buPROPion XL (Wellbutrin XL) 300 MG 24 hr tablet Take 300 mg by mouth daily. FLUoxetine (PROzac) 20 MG capsule Take 60 mg by mouth daily. fluticasone (Flonase) 50 MCG/ACT nasal spray Administer 2 sprays into each nostril Daily as needed for allergies. lamoTRIgine (LaMICtal) 25 MG tablet Take 50 mg by mouth daily. Loratadine 10 MG capsule Take 10 mg by mouth daily. losartan (Cozaar) 50 MG tablet Take 100 mg by mouth daily. Multiple Vitamin (High Potency Multivitamin) tablet Take 1 tablet by mouth daily. nystatin (Mycostatin) 939116 UNIT/GM powder Apply 1 Application topically 2 times daily. Under breasts Omeprazole 20 MG tablet delayed-release albuterol 108 (90 Base) MCG/ACT inhaler INHALE TWO PUFFS BY MOUTH INTO THE LUNGS instructed EVERY 4 HOURS NEEDED FOR WHEEZING OR FOR SHORTNESS OF BREATH Calcium + Vitamin D3 600-10 MG-MCG tablet Take 1 tablet by mouth daily. 600/400 cholecalciferol (Vitamin D-3) 125 MCG (5000 UT) tablet Take 2,000 Units by mouth daily. clonazePAM (KlonoPIN) 0.5 MG tablet Take 0.5 mg by mouth Daily as needed for anxiety. famotidine (Pepcid) 20 MG tablet Take by mouth. Invega Sustenna 39 MG/0.25ML suspension prefilled syringe Inject 39 mg into the shoulder, thigh, or buttocks every 30 (thirty) days. lisinopril 20 MG tablet Take 20 mg by mouth daily. ALLERGIES Sulfa antibiotics and Milk [milk (cow)] FAMILY HISTORY Family History[3] SOCIAL HISTORY Social History[4] SCREENINGS Lennox Coma Scale Best Eye Response: Spontaneous Best Verbal Response: Oriented Best Motor Response: Follows commands Lennox Coma Scale Score: 15 PHYSICAL EXAM ED Triage Vitals [04/19/25 1535] Temp Heart Rate Resp BP 36.6 C (97.9 F) 65 18 131/79 SpO2 Temp Source Heart Rate Source Patient Position 95 % Oral Monitor Lying BP Location FiO2 (%) Left arm -- Physical Exam Vitals and nursing note reviewed. Constitutional: General: She is not in acute distress. Appearance: She is well-developed. HENT: Head: Normocephalic and atraumatic. Eyes: Conjunctiva/sclera: Conjunctivae normal. Cardiovascular: Rate and Rhythm: Normal rate and regular rhythm. Heart sounds: No murmur heard. Pulmonary: Effort: Pulmonary effort is normal. No respiratory distress. Breath sounds: Normal breath sounds. Abdominal: Palpations: Abdomen is soft. Tenderness: There is no abdominal tenderness. Musculoskeletal: General: No swelling. Cervical back: Neck supple. Comments: Right sided hip pain with palpation and range of motion. Skin: General: Skin is warm and dry. Capillary Refill: Capillary refill takes less than 2 seconds. Neurological: Mental Status: She is alert. Psychiatric: Mood and Affect: Mood normal. DIAGNOSTIC RESULTS RADIOLOGY (Per Emergency Physician): Interpretation per the Radiologist below, if available at the time of this note: XR chest 1 view Final Result Lines, tubes, and devices:None. Lungs and pleura:Elevated right hemidiaphragm. Minimal streaky bibasilar opacities, likely atelectasis. No consolidation. No pleural effusion or pneumothorax. Cardiomediastinal silhouette: Normal cardiac silhouette. Ascending aortic aneurysm, better assessed on recent CT. Other: Degenerative changes of the spine. Cervical fusion hardware partially visualized. Report Dictated on Electronically Signed By: Albino Gamez MD Electronically Signed Date/Time: 04/19/2025 10:52 PM EDT XR pelvis 1 or 2 views Final Result Acute intertrochanteric comminuted fracture of the right proximal femur. Osteopenia. Report Dictated on Electronically Signed By: Cee Del Angel MD Electronically Signed Date/Time: 04/19/2025 8:00 PM EDT XR femur right 2+ views Final Result Acute intertrochanteric comminuted fracture of the right proximal femur. Osteopenia. Report Dictated on Electronically Signed By: Cee Del Angel MD Electronically Signed Date/Time: 04/19/2025 8:[address] Lumbar Spine Recon Final Result CHEST (with CT thoracic spine): 1. No traumatic intrathoracic process. 2. No traumatic fracture of the thoracic spine. 3. Atherosclerotic disease. Ascending aortic aneurysm again measures 4.6 cm, not significantly changed from 12/17/2023. ABDOMEN/PELVIS (with CT lumbar spine): 1. Acute RIGHT femur intertrochanteric comminuted impaction fracture. Osteopenia. 2. No traumatic fracture of the lumbar spine. 3. Other: Persistent elevation of the right hemidiaphragm. Colonic diverticulosis. Atherosclerotic disease. Parapelvic cysts. Report Dictated on Electronically Signed By: Cee Del Angel MD Electronically Signed Date/Time: 04/19/2025 5:[address] Thoracic spine Recon Final Result CHEST (with CT thoracic spine): 1. No traumatic intrathoracic process. 2. No traumatic fracture of the thoracic spine. 3. Atherosclerotic disease. Ascending aortic aneurysm again measures 4.6 cm, not significantly changed from 12/17/2023. ABDOMEN/PELVIS (with CT lumbar spine): 1. Acute RIGHT femur intertrochanteric comminuted impaction fracture. Osteopenia. 2. No traumatic fracture of the lumbar spine. 3. Other: Persistent elevation of the right hemidiaphragm. Colonic diverticulosis. Atherosclerotic disease. Parapelvic cysts. Report Dictated on Electronically Signed By: Cee Del Angel MD Electronically Signed Date/Time: 04/19/2025 5:[address] femur right wo IV contrast Final Result 1. Acute RIGHT femur intertrochanteric comminuted impaction fracture. Osteopenia. 2. Colonic diverticulosis. Report Dictated on Electronically Signed By: Cee Del Angel MD Electronically Signed Date/Time: 04/19/2025 5:[address] chest abdomen pelvis without contrast Final Result CHEST (with CT thoracic spine): 1. No traumatic intrathoracic process. 2. No traumatic fracture of the thoracic spine. 3. Atherosclerotic disease. Ascending aortic aneurysm again measures 4.6 cm, not significantly changed from 12/17/2023. ABDOMEN/PELVIS (with CT lumbar spine): 1. Acute RIGHT femur intertrochanteric comminuted impaction fracture. Osteopenia. 2. No traumatic fracture of the lumbar spine. 3. Other: Persistent elevation of the right hemidiaphragm. Colonic diverticulosis. Atherosclerotic disease. Parapelvic cysts. Report Dictated on Electronically Signed By: Cee Del Angel MD Electronically Signed Date/Time: 04/19/2025 5:[address] cervical spine wo IV contrast Final Result No acute intracranial hemorrhage or mass effect. CT CERVICAL SPINE: TECHNIQUE: Transaxial sequence through the cervical spine. Coronal and sagittal reconstructions included. Dose reduction was employed with automated exposure control. COMPARISON: CT cervical spine 01/12/2023 FINDINGS: Cervical vertebrae and joints: Degenerative changes at the craniocervical junction that is otherwise maintained. Demineralized osseous structures. Status post C3-C6 ACDF. The hardware appears intact without evidence of loosening. No acute fracture. No suspicious osseous abnormality. Multilevel facet arthrosis and uncovertebral hypertrophy. Intervertebral disc spaces and spinal canal: Disc height loss at C2-C3 and within the lower cervical/upper thoracic spine. No severe spinal canal stenosis. Soft tissues: No prevertebral edema. Surgically absent left thyroid lobe. Right thyroid lobe nodules measure up to 1.3 cm in size. Other: Scarring at both lung apices. IMPRESSION: No acute abnormality of the cervical spine. Incidentally noted 1.3 cm right thyroid lobe nodule. Follow-up recommended as below. Follow-up thyroid ultrasound is recommended for any suspicious thyroid nodule. Suspicious thyroid nodules include: Nodules "e1 cm in patients <35 years old Nodules "e1.5 cm in patients "e35 years old Nodules with suspicious lymph nodes (enlarged, cystic, calcified, or hyperenhancing) Nodules with local tissue invasion Patients with comorbidities or limited life expectancy should not have further evaluation of the thyroid nodule, unless it is warranted clinically, or specifically requested by the patient or referring physician. Reference: Brenna Graham et al Managing incidental thyroid nodules detected on imaging: White paper of the ACR incidental thyroid findings committee" J Am Velasquez Radiol 2015;12:143-150. Report Dictated on Electronically Signed By: Kendy Strickland DO Electronically Signed Date/Time: 04/19/2025 4:[address] head wo IV contrast Final Result No acute intracranial hemorrhage or mass effect. CT CERVICAL SPINE: TECHNIQUE: Transaxial sequence through the cervical spine. Coronal and sagittal reconstructions included. Dose reduction was employed with automated exposure control. COMPARISON: CT cervical spine 01/12/2023 FINDINGS: Cervical vertebrae and joints: Degenerative changes at the craniocervical junction that is otherwise maintained. Demineralized osseous structures. Status post C3-C6 ACDF. The hardware appears intact without evidence of loosening. No acute fracture. No suspicious osseous abnormality. Multilevel facet arthrosis and uncovertebral hypertrophy. Intervertebral disc spaces and spinal canal: Disc height loss at C2-C3 and within the lower cervical/upper thoracic spine. No severe spinal canal stenosis. Soft tissues: No prevertebral edema. Surgically absent left thyroid lobe. Right thyroid lobe nodules measure up to 1.3 cm in size. Other: Scarring at both lung apices. IMPRESSION: No acute abnormality of the cervical spine. Incidentally noted 1.3 cm right thyroid lobe nodule. Follow-up recommended as below. Follow-up thyroid ultrasound is recommended for any suspicious thyroid nodule. Suspicious thyroid nodules include: Nodules "e1 cm in patients <35 years old Nodules "e1.5 cm in patients "e35 years old Nodules with suspicious lymph nodes (enlarged, cystic, calcified, or hyperenhancing) Nodules with local tissue invasion Patients with comorbidities or limited life expectancy should not have further evaluation of the thyroid nodule, unless it is warranted clinically, or specifically requested by the patient or referring physician. Reference: Brenna Graham et al Managing incidental thyroid nodules detected on imaging: White paper of the ACR incidental thyroid findings committee" J Am Velasquez Radiol 2015;12:143-150. Report Dictated on Electronically Signed By: Kendy Strickland DO Electronically Signed Date/Time: 04/19/2025 4:59 PM EDT LABS: Labs Reviewed CBC WITH AUTO DIFFERENTIAL - Abnormal Result Value Auto WBC 10.5 RBC 4.49 Hemoglobin 13.5 Hematocrit 40.6 MCV 90.4 MCH 30.1 MCHC 33.3 RDW 13.3 Platelets 165 MPV 9.9 nRBC 0.0 Neutrophils Relative 87.4 (*) Lymphocytes Relative 6.6 (*) Monocytes Relative 4.5 (*) Eosinophils Relative 0.7 Basophils Relative 0.3 Immature Grans % 0.5 Neutrophils Absolute 9.2 (*) Lymphocytes Absolute 0.7 (*) Monocytes Absolute 0.5 Eosinophils Absolute 0.1 Basophils Absolute 0.0 Immature Grans Absolute 0.1 (*) BASIC METABOLIC PANEL - Abnormal SODIUM 141 POTASSIUM 3.2 (*) CHLORIDE 116 (*) CARBON DIOXIDE 18 (*) UREA NITROGEN 20 CREATININE 0.62 GLUCOSE 93 CALCIUM 7.2 (*) ANION GAP 7 eGFR >90.0 PROTHROMBIN TIME - Normal PROTHROMBIN TIME 10.4 INR 1.0 BLOOD TYPE AND SCREEN GEL ABO Grouping AB Antibody Screen NEG Rh Type POS All other labs were within normal range or not returned as of this dictation. EMERGENCY DEPARTMENT COURSE and DIFFERENTIAL DIAGNOSIS/MDM: Vitals: Vitals: 04/19/25 1535 04/19/25 1846 04/19/25 2031 BP: 131/79 117/66 136/86 BP Location: Left arm Left arm Right arm Patient Position: Lying Sitting Lying Pulse: 65 63 67 Resp: 18 16 16 Temp: 36.6 C (97.9 F) 36.6 C (97.8 F) TempSrc: Oral Temporal SpO2: 95% 94% 97% Weight: 75.3 kg (165 lb 14.4 oz) 74.8 kg (165 lb) Height: 1.524 m (5') 1.524 m (5') 74-year-old female presenting to the emergency department after a mechanical fall. Patient has no syncopal prodrome or alarm symptoms. CBC, BMP, and coagulation panel not demonstrating any abnormalities other than mild hypokalemia which was treated with oral potassium replacement. Patient has stable vitals and was given Tylenol for mild pain. Obtain CT scan of the head, cervical spine, thoracic spine, lumbar spine, and pelvis. Patient has a right sided intertrochanteric fracture. Also obtain CT of the femur, which shows comminuted impaction of the fracture. Spoke with orthopedic service who advised medical admission for likely ORIF on Monday. Patient admitted to the [facility] hospitalist service. Diagnoses as of 04/19/250 Closed nondisplaced intertrochanteric fracture of right femur, initial encounter (HCC) External records reviewed: Diagnostics interpreted by me: Discussions with other clinicians: Chronic conditions impacting care: Social determinants of health affecting care: ED Medications managed: Medications potassium chloride CR (Klor-Con M10) ER tablet 40 mEq (has no administration in time range) oxyCODONE (Roxicodone) immediate release tablet 5 mg (5 mg Oral Given 04/19/252049) morphine injection 4 mg (has no administration in time range) naloxone (Narcan) injection 0.4 mg (has no administration in time range) acetaminophen (Tylenol) tablet 1,000 mg (1,000 mg Oral Given 04/19/25 172) Prescription drugs considered: PROCEDURES: Unless otherwise noted below, none Procedures FINAL IMPRESSION 1. Closed nondisplaced intertrochanteric fracture of right femur, initial encounter ([facility]) 2. Closed displaced intertrochanteric fracture of right femur, initial encounter ([facility]) DISPOSITION Admit 04/19/2025 07:49:32 PM PATIENT REFERRED TO: No follow-up provider specified. DISCHARGE MEDICATIONS: Current Discharge Medication List (Comment: Please note this report has been produced using speech recognition software and may contain errors related to that system including errors in grammar, punctuation, and spelling, as well as words and phrases that may be inappropriate. If there are any questions or concerns please feel free to contact the dictating provider for clarification.) Mayco Bhakta II, MD (electronically signed) Emergency Medicine Provider [1] Past Medical History: Diagnosis Date Anxiety Aspirin long-term use history Asthma Bipolar 1 disorder (HCC) Chronic kidney disease Depression Difficulty walking High blood pressure Lack of coordination Mitral valve insufficiency Muscle weakness Presence of intraocular lens Repeated falls Rhabdomyolysis Sleep apnea Suicidal ideations Traumatic subarachnoid hemorrhage without loss of consciousness (HCC) [2] Past Surgical History: Procedure Laterality Date CERVICAL SPINE SURGERY 03/02/2023 C3-C6 ANTERIOR CERVICAL DECOMPRESSION, FUSION HYSTERECTOMY THYROID SURGERY N/A half [3] Family History Problem Relation Name Age of Onset Cancer Mother No Known Problems Father [4] Social History Socioeconomic History Marital status: Tobacco Use Smoking status: Never Smokeless tobacco: Never Vaping Use Vaping status: Never Used Substance and Sexual Activity Alcohol use: Never Drug use: Never Social Drivers of Health Financial Resource Strain: Low Risk (03/01/2022) Received from [facility] Overall Financial Resource Strain (CARDIA) Difficulty of Paying Living Expenses: Not hard at all Food Insecurity: No Food Insecurity (03/01/2022) Received from [facility] Hunger Vital Sign Worried About Running Out of Food in the Last Year: Never true Ran Out of Food in the Last Year: Never true Transportation Needs: No Transportation Needs (03/03/2023) PRAPARE - Transportation Lack of Transportation (Medical): No Lack of Transportation (Non-Medical): No Intimate Partner Violence: Not At Risk (04/19/2025) Humiliation, Afraid, Rape, and Kick questionnaire Fear of Current or Ex-Partner: No Emotionally Abused: No Physically Abused: No Sexually Abused: No Housing Stability: High Risk (03/03/2023) Housing Stability Vital Sign Unable to Pay for Housing in the Last Year: No Number of Places Lived in the Last Year: 1 Unstable Housing in the Last Year: Yes Mayco Bhakta II, MD Resident 04/19/252322 Cosigned by Javon Boone DO at 04/20/2025 2:27 PM EDT [facility] 12-03-2024 Note Patient Outreach ([facility]) PILY BARNES ([id number]) 1950 F Date Time Provider Department 12/03/24 ASHU RICCI During your visit today, we recorded the following information about you: Allergies As of Date: 12/03/2024 Noted Allergy Reaction SULFADIAZINE 03/16/2020 7 - Swelling Comments: Facial swelling MILK 03/18/2022 14 - Other: See Comments Comments: Abdominal bloating SEASONAL ALLERGIES 09/20/2017 5 - Intolerance SULFA (SULFONAMIDE ANTIBIOTICS) 09/20/2017 9 - Itching Date Reviewed: 09/16/2024 Reviewed by: Rocio Davila MA - Fully Assessed Visit Diagnosis:Encounter for screening mammogram for breast cancer [Z12.31] Order(s):[facility] SCREENING W MARCELO [[id number]] Order #: [id number] FUTURE Prescriptions as of 01/03/2025 - losartan (COZAAR) 100 mg tablet Take 1 tablet by mouth once daily. - rosuvastatin (CRESTOR) 20 mg tablet Take 1 tablet by mouth daily at bedtime. - amLODIPine (NORVASC) 5 mg tablet Take 5 mg by mouth once daily. - famotidine (PEPCID) 20 mg tablet Take 20 mg by mouth as needed. - DELSYM 30 mg/5 mL oral liquid Take 30 mg by mouth as needed. - MUCINEX 600 mg 12 hr tablet Take 600 mg by mouth once daily. As needed - HIGH POTENCY MULTIVITAMIN 400 mcg Take 1 tablet by mouth once daily. - nystatin (MYCOSTATIN) powder Apply to affected area as needed. - Omeprazole 20 mg TbEC Take 20 mg by mouth once daily. - ondansetron (ZOFRAN) 4 mg tablet Take 4 mg by mouth every 6 hours as needed. - cholecalciferol (VITAMIN D3) 50 mcg (2,000 unit) tablet Take 2,000 Units by mouth once daily. - loratadine (CLARITIN) 10 mg tablet Take 10 mg by mouth once daily. - buPROPion XL (WELLBUTRIN XL) 300 mg 24 hr tablet Take 1 tablet by mouth once daily. - FLUoxetine (PROZAC) 20 mg capsule 3 capsule daily - ARIPiprazole (ABILIFY) 5 mg tablet Take 1 tablet by mouth once daily. - lamoTRIgine (LAMICTAL) 25 mg tablet Take 2 tablets by mouth once daily. - paliperidone palmitate (INVEGA SUSTENNA) 39 mg/0.25 mL syrg injection INJECT 0.25 ML into THE MUSCLE EVERY FOUR WEEKS - fluticasone-vilanterol (BREO ELLIPTA) 100-25 mcg/dose inhaler Inhale 1 puff BY MOUTH INTO THE LUNGS EVERY DAY - albuterol HFA (PROVENTIL HFA, VENTOLIN HFA) 90 mcg/actuation inhaler INHALE TWO PUFFS BY MOUTH INTO THE LUNGS instructed EVERY 4 HOURS NEEDED FOR WHEEZING OR FOR SHORTNESS OF BREATH Facility-Administered Medications as of 01/03/2025 - glycopyrrolate 0.2 mg injection (ROBINUL) - ondansetron (PF) 4 mg injection (ZOFRAN) Meds Comments as of 03/27/2019: Patient reports med noncompliance since discharge from hospital Problem List As Of Date 12/03/2024 Noted Resolved Dehydration [E86.0] 09/20/2017 09/29/2017 DEENA (acute kidney injury) (HCC) [N17.9] 09/20/2017 11/21/2017 Depression [F32.A] 09/20/2017 11/27/2017 Rule-out : Bipolar disorder (HCC) [F31.9] 09/20/2017 10/28/2019 Essential hypertension [I10] 09/20/2017 Hypokalemia [E87.6] 09/20/2017 08/12/2019 Pyuria [R82.81] 09/20/2017 11/21/2017 Polycythemia [D75.1] 09/20/2017 11/21/2017 Severe recurrent major depression with psychoti*09/22/2017 Mild intermittent asthma [J45.20] 09/23/2017 Drug overdose [T50.901A] 11/13/2017 11/27/2017 Suicide attempt (HCC) [T14.91XA] 11/13/2017 UTI (urinary tract infection) [N39.0] 11/13/2017 08/12/2019 Bipolar depression (HCC) [F31.9] 11/20/2017 11/27/2017 Financial problems [Z59.9] 02/21/2019 Bipolar 1 disorder (HCC) [F31.9] 03/28/2019 Bipolar 1 disorder, depressed, severe (HCC) [F3*08/05/2019 Vitamin D deficiency [E55.9] 08/06/2019 Insomnia [G47.00] 08/06/2019 Abnormal urinalysis [R82.90] 08/06/2019 08/12/2019 Malnutrition of mild degree (HCC) [E44.1] 08/07/2019 08/12/2019 Generalized anxiety disorder [F41.1] 10/17/2019 Bipolar 1 disorder, depressed, moderate (HCC) [*04/30/2020 Hypertensive heart disease without congestive h*06/06/2020 Mixed hyperlipidemia [E78.2] 06/06/2020 Moderate persistent asthma without complication*06/06/2020 Nonrheumatic aortic valve stenosis [I35.0] 06/06/2020 Patent foramen ovale [Q21.12] 06/06/2020 Stage 3 chronic kidney disease [N18.30] 06/06/2020 Status post hysterectomy [Z90.710] 06/06/2020 Urge incontinence of urine [N39.41] 06/06/2020 Herpes simplex [B00.9] 06/06/2020 Cardiomegaly [I51.7] 06/06/2020 Allergic rhinitis [J30.9] 06/06/2020 SAH (subarachnoid hemorrhage) (HCC) [I60.9] 06/07/2020 06/17/2020 Fall [W19.XXXA] 06/08/2020 06/17/2020 Multiple thyroid nodules [E04.2] 06/15/2020 Trauma [T14.90XA] 11/06/2020 11/06/2020 Thyroid mass [E07.9] 12/16/2020 02/24/2022 S/P partial thyroidectomy [E89.0] 02/24/2022 Rhabdomyolysis [M62.82] 02/28/2022 Recurrent falls [R29.6] 03/01/2022 Preop examination [Z01.818] 11/14/2023 Abnormal barium swallow [R93.3] 11/14/2023 Dysphagia [R13.10] 11/14/2023 Dilatation of thoracic aorta (HCC) [I77.810] 03/21/2024 (more content not included)... [facility] 09-16-2024 Note HNO ID: [id number] Author: MICHELL MATHIS MD Service: ? Author Type: Physician Type: Progress Notes Filed: 09/16/2024 15:25 Note Text: Heart, Vascular and Thoracic [facility] Template ID: [id number] SERVICE DATE: 09/16/2024 SERVICE TIME: 3:21 PM Patient Type: EST Visit to determine Surgery: No HPI: Ms. Pily Barnes is a 73 year old female w/ h/o htn, ckd, esophageal stenosis s/p egd dilation, Parkinson's symptoms w/ poor baseline mobility and function (limited by weakness and herrmann) and arrives to office today in wheelchair for follow-up of known ascending aortic aneurysm. This was found incidentally in December (12/2023) w/ ascending up to 4.6 cm. Unclear if father of aortic aneurysm but he was in his late 80s. She lives in assisted living and generally uses walker to get around. Prev echo w/ EF 58%, nl RV, trace MR/TR, trace AI, MG 6 across AV. Impression: Ascending aortic aneurysm 4.6 cm, AV functioning well Plan: Given relative stability of ascending aortic aneurysm, advised ongoing aortic surveillance with Ms Barnes. All questions answered. Given her baseline functional status and limited mobility, would favor a size threshold of >5.5 cm for her and would need to weigh risks and benefits carefully if that decision point is reached in the future. Will continue to follow her aorta through serial imaging. RTC in 1 year with repeat imaging. I personally spent 30 minutes in total time involved in the management and care of this patient. SIGNATURE: Michell Mathis MD PATIENT NAME: Pily Barnes DATE: September 16, 2024 TIME: 3:21 PM [facility] 09-16-2024 History of Present illness Narrative Heart, Vascular and Thoracic [facility] Template ID: [id number] SERVICE DATE: 09/16/2024 SERVICE TIME: 3:21 PM Patient Type: EST Visit to determine Surgery: No HPI: Ms. Pily Barnes is a 73 year old female w/ h/o htn, ckd, esophageal stenosis s/p egd dilation, Parkinson's symptoms w/ poor baseline mobility and function (limited by weakness and herrmann) and arrives to office today in wheelchair for follow-up of known ascending aortic aneurysm. This was found incidentally in December (12/2023) w/ ascending up to 4.6 cm. Unclear if father of aortic aneurysm but he was in his late 80s. She lives in assisted living and generally uses walker to get around. Prev echo w/ EF 58%, nl RV, trace MR/TR, trace AI, MG 6 across AV. Impression: Ascending aortic aneurysm 4.6 cm, AV functioning well Plan: Given relative stability of ascending aortic aneurysm, advised ongoing aortic surveillance with Ms Barnes. All questions answered. Given her baseline functional status and limited mobility, would favor a size threshold of >5.5 cm for her and would need to weigh risks and benefits carefully if that decision point is reached in the future. Will continue to follow her aorta through serial imaging. RTC in 1 year with repeat imaging. I personally spent 30 minutes in total time involved in the management and care of this patient. SIGNATURE: Michell Mathis MD PATIENT NAME: Pily Barnes DATE: September 16, 2024 TIME: 3:21 PM documented in this encounter [facility] 09-16-2024 History of Present illness Narrative Radiology Service Progress Note DATE OF SERVICE: September 16, 2024 TIME: 1:35 PM PATIENT WEIGHT: 155LBS PATIENT IDENTITY VERIFICATION COMPLETED USING TWO (2) STANDARD IDENTIFIERS: Name and Date of confirmed by patient verbally and Name and Date of confirmed by identification band. FALL SCREENING: Has the patient had 2 falls in the last year or 1 fall with injury or currently using an Ambulatory Assistive Device (Walker, Cane, Wheelchair, Crutches, etc.)? Yes, Patient High Risk for Falls What interventions were put in place to prevent falls during this visit? Yellow "Falls Risk Wristband" Applied, Instructed Patient to Call for Help if Needed, Offered Assistance with Transfers/Clothing, Instructed Patient to Remain Seated (Not on Exam Table) Until Exam, Increased Observations by Caregivers, Escorted to/from Restroom, and using a wheelchair PATIENT GENDER DATA: Assigned female at . status: : No status: NO. ALLERGIES: Reviewed and unchanged CONTRAST ALLERGY: No EXAM: CT -CONTRAST INDUCED NEPHROPATHY RISK FACTORS: Patient age > 60 years CREATININE: Creatinine Date Value Ref Range Status 03/21/2024 1.05 (H) 0.58 - 0.96 mg/dL Final 03/21/2024 1.03 (H) 0.58 - 0.96 mg/dL Final Creatinine (POCT) Date Value Ref Range Status 09/16/2024 1.00 0.7 - 1.4 mg/dL Final eGFR (POCT) Date Value Ref Range Status 09/16/2024 59 mL/min/1.73 m2 Final eGFR- Date Value Ref Range Status 10/19/2021 >60 Final P.O.C.T. RESULTS: POC done: Yes, See Lab Tab September 16, 2024 TREATMENT: No Hydration needed. IV SITE: Ambulatory: A peripheral IV was started in the Right antecubital site with a Angio cath: 20 gauge. and A Saline lock was inserted per protocol IV SITE APPEARANCE: Clean,Dry and Intact SIGNATURE: Danny Paez RN PATIENT NAME: Pily Barnes DATE: September 16, 2024 TIME: 1:35 PM Radiology Service Progress Note PATIENT NAME: Pily Barnes DATE OF SERVICE: September 16, 2024 TIME: 1:56 PM PATIENT IDENTITY VERIFICATION COMPLETED USING TWO (2) IDENTIFIERS: Name and Date of confirmed by patient verbally and Name and Date of confirmed by identification band. FALL SCREENING: Has the patient had 2 falls in the last year or 1 fall with injury or currently using an Ambulatory Assistive Device (Walker, Cane, Wheelchair, Crutches, etc.)? No PATIENT GENDER DATA: Assigned female at . status: : No status: NO. PATIENT RELEVANT IMPLANT DATA REVIEWED: Not Applicable PATIENT PRESENTS WITH AN IMPLANTABLE OR ATTACHED CREDIT UNDERWRITER: No RADIOLOGY DEPARTMENT: CT; Exam(s) Completed: Cardiac PERIPHERAL IV DATA: Site assessment: Clean,Dry and Intact, Site disposition Discontinued SIGNED BY: RT Cliff(Tio) September 16, 2024 1:56 PM documented in this encounter [facility] 09-16-2024 Note HNO ID: [id number] Author: JAELYN VERA RT(R) Service: Radiology Author Type: Technologist Type: Progress Notes Filed: 09/16/2024 14:01 Note Text: Radiology Service Progress Note PATIENT NAME: Pily Barnes DATE OF SERVICE: September 16, 2024 TIME: 1:56 PM PATIENT IDENTITY VERIFICATION COMPLETED USING TWO (2) IDENTIFIERS: Name and Date of confirmed by patient verbally and Name and Date of confirmed by identification band. FALL SCREENING: Has the patient had 2 falls in the last year or 1 fall with injury or currently using an Ambulatory Assistive Device (Walker, Cane, Wheelchair, Crutches, etc.)? No PATIENT GENDER DATA: Assigned female at . status: : No status: NO. PATIENT RELEVANT IMPLANT DATA REVIEWED: Not Applicable PATIENT PRESENTS WITH AN IMPLANTABLE OR ATTACHED CREDIT UNDERWRITER: No RADIOLOGY DEPARTMENT: CT; Exam(s) Completed: Cardiac PERIPHERAL IV DATA: Site assessment: Clean,Dry and Intact, Site disposition Discontinued SIGNED BY: Jaelyn Vera RT(R) September 16, 2024 1:56 PM [facility] 09-16-2024 Note HNO ID: [id number] Author: DANNY PAEZ RN Service: Radiology Author Type: Registered Nurse Type: Progress Notes Filed: 09/16/2024 13:44 Note Text: Radiology Service Progress Note DATE OF SERVICE: September 16, 2024 TIME: 1:35 PM PATIENT WEIGHT: 155LBS PATIENT IDENTITY VERIFICATION COMPLETED USING TWO (2) STANDARD IDENTIFIERS: Name and Date of confirmed by patient verbally and Name and Date of confirmed by identification band. FALL SCREENING: Has the patient had 2 falls in the last year or 1 fall with injury or currently using an Ambulatory Assistive Device (Walker, Cane, Wheelchair, Crutches, etc.)? Yes, Patient High Risk for Falls What interventions were put in place to prevent falls during this visit? Yellow "Falls Risk Wristband" Applied, Instructed Patient to Call for Help if Needed, Offered Assistance with Transfers/Clothing, Instructed Patient to Remain Seated (Not on Exam Table) Until Exam, Increased Observations by Caregivers, Escorted to/from Restroom, and using a wheelchair PATIENT GENDER DATA: Assigned female at . status: : No status: NO. ALLERGIES: Reviewed and unchanged CONTRAST ALLERGY: No EXAM: CT -CONTRAST INDUCED NEPHROPATHY RISK FACTORS: Patient age > 60 years CREATININE: Creatinine Date Value Ref Range Status 03/21/2024 1.05 (H) 0.58 - 0.96 mg/dL Final 03/21/2024 1.03 (H) 0.58 - 0.96 mg/dL Final Creatinine (POCT) Date Value Ref Range Status 09/16/2024 1.00 0.7 - 1.4 mg/dL Final eGFR (POCT) Date Value Ref Range Status 09/16/2024 59 mL/min/1.73 m2 Final eGFR- Date Value Ref Range Status 10/19/2021 >60 Final P.O.C.T. RESULTS: POC done: Yes, See Lab Tab September 16, 2024 TREATMENT: No Hydration needed. IV SITE: Ambulatory: A peripheral IV was started in the Right antecubital site with a Angio cath: 20 gauge. and A Saline lock was inserted per protocol IV SITE APPEARANCE: Clean,Dry and Intact SIGNATURE: Danny Paez RN PATIENT NAME: Pily Barnes DATE: September 16, 2024 TIME: 1:35 PM [facility] 07-31-2024 Note HNO ID: [id number] Author: BOBBI RUCKER RN Service: ? Author Type: Registered Nurse Type: Progress Notes Filed: 07/31/2024 14:18 Note Text: [facility] POPULATION HEALTH NAVIGATION OUTREACH Action/FYI Patient Identified by Name and : Yes, via phone Reason for Outreach Attribution: Attribution review/confirmation Care Gap or Scheduling Wellness Visits Care Gap Reviewed:: Annual Wellness visit Breast Cancer screening Outreach Outcome/Action Unable to reach patient: Phone number not valid / voicemail full Population Health Navigation Workflow Attribution Chart Review Payer: [facility] Navigation Signature: Bobbi Rucker RN July 31, 2024 2:18 PM [facility] 07-31-2024 History of Present illness Narrative [facility] POP[facility] HEALTH NAVIGATION OUTREACH Action/FYI Patient Identified by Name and : Yes, via phone Reason for Outreach Attribution: Attribution review/confirmation Care Gap or Scheduling Wellness Visits Care Gap Reviewed:: Annual Wellness visit Breast Cancer screening Outreach Outcome/Action Unable to reach patient: Phone number not valid / voicemail full Population Health Navigation Workflow Attribution Chart Review Payer: [facility] Navigation Signature: Bobbi Rucker RN July 31, 2024 2:18 PM documented in this encounter [facility] 07-31-2024 Note Patient Outreach ([facility]) PILY BARNES ([id number]) 1950 F Date Time Provider Department 07/31/24 BOBBI RUCKER [facility] During your visit today, we recorded the following information about you: Bobbi Rucker RN 07/31/2024 2:18 PM Signed [facility] POP[facility] HE[facility] NAVIGATION OUTREACH Action/FYI Patient Identified by Name and : Yes, via phone Reason for Outreach Attribution: Attribution review/confirmation Care Gap or Scheduling Wellness Visits Care Gap Reviewed:: Annual Wellness visit Breast Cancer screening Outreach Outcome/Action Unable to reach patient: Phone number not valid / voicemail full Population Health Navigation Workflow Attribution Chart Review Payer: [facility] Navigation Signature: Bobbi Rucker RN July 31, 2024 2:18 PM Allergies As of Date: 07/31/2024 Noted Allergy Reaction SULFADIAZINE 03/16/2020 7 - Swelling Comments: Facial swelling MILK 03/18/2022 14 - Other: See Comments Comments: Abdominal bloating SEASONAL ALLERGIES 09/20/2017 5 - Intolerance SULFA (SULFONAMIDE ANTIBIOTICS) 09/20/2017 9 - Itching Date Reviewed: 03/21/2024 Reviewed by: Roxy Darby MA - Fully Assessed Reason for Visit: Population Health Navigation Outreach [3910] Cmt: [facility] Attributed Member - Chart Review Prescriptions as of 07/31/2024 - losartan (COZAAR) 100 mg tablet Take 1 tablet by mouth once daily. - rosuvastatin (CRESTOR) 20 mg tablet Take 1 tablet by mouth daily at bedtime. - amLODIPine (NORVASC) 5 mg tablet Take 5 mg by mouth once daily. - famotidine (PEPCID) 20 mg tablet Take 20 mg by mouth as needed. - DELSYM 30 mg/5 mL oral liquid Take 30 mg by mouth as needed. - MUCINEX 600 mg 12 hr tablet Take 600 mg by mouth once daily. - HIGH POTENCY MULTIVITAMIN 400 mcg Take 1 tablet by mouth once daily. - nystatin (MYCOSTATIN) powder Apply to affected area as needed. - Omeprazole 20 mg TbEC Take 20 mg by mouth once daily. - ondansetron (ZOFRAN) 4 mg tablet Take 4 mg by mouth every 6 hours as needed. - cholecalciferol (VITAMIN D3) 50 mcg (2,000 unit) tablet Take 2,000 Units by mouth once daily. - loratadine (CLARITIN) 10 mg tablet Take 10 mg by mouth once daily. - buPROPion XL (WELLBUTRIN XL) 300 mg 24 hr tablet Take 1 tablet by mouth once daily. - FLUoxetine (PROZAC) 20 mg capsule 3 capsule daily - ARIPiprazole (ABILIFY) 5 mg tablet Take 1 tablet by mouth once daily. - lamoTRIgine (LAMICTAL) 25 mg tablet Take 2 tablets by mouth once daily. - paliperidone palmitate (INVEGA SUSTENNA) 39 mg/0.25 mL syrg injection INJECT 0.25 ML into THE MUSCLE EVERY FOUR WEEKS - fluticasone-vilanterol (BREO ELLIPTA) 100-25 mcg/dose inhaler Inhale 1 puff BY MOUTH INTO THE LUNGS EVERY DAY - albuterol HFA (PROVENTIL HFA, VENTOLIN HFA) 90 mcg/actuation inhaler INHALE TWO PUFFS BY MOUTH INTO THE LUNGS instructed EVERY 4 HOURS NEEDED FOR WHEEZING OR FOR SHORTNESS OF BREATH Facility-Administered Medications as of 07/31/2024 - glycopyrrolate 0.2 mg injection (ROBINUL) - ondansetron (PF) 4 mg injection (ZOFRAN) Meds Comments as of 03/27/2019: Patient reports med noncompliance since discharge from hospital Problem List As Of Date 07/31/2024 Noted Resolved Dehydration [E86.0] 09/20/2017 09/29/2017 DEENA (acute kidney injury) (HCC) [N17.9] 09/20/2017 11/21/2017 Depression [F32.A] 09/20/2017 11/27/2017 Rule-out : Bipolar disorder (HCC) [F31.9] 09/20/2017 10/28/2019 Essential hypertension [I10] 09/20/2017 Hypokalemia [E87.6] 09/20/2017 08/12/2019 Pyuria [R82.81] 09/20/2017 11/21/2017 Polycythemia [D75.1] 09/20/2017 11/21/2017 Severe recurrent major depression with psychoti*09/22/2017 Mild intermittent asthma [J45.20] 09/23/2017 Drug overdose [T50.901A] 11/13/2017 11/27/2017 Suicide attempt (HCC) [T14.91XA] 11/13/2017 UTI (urinary tract infection) [N39.0] 11/13/2017 08/12/2019 Bipolar depression (HCC) [F31.9] 11/20/2017 11/27/2017 Financial problems [Z59.9] 02/21/2019 Bipolar 1 disorder (HCC) [F31.9] 03/28/2019 Bipolar 1 disorder, depressed, severe (HCC) [F3*08/05/2019 Vitamin D deficiency [E55.9] 08/06/2019 Insomnia [G47.00] 08/06/2019 Abnormal urinalysis [R82.90] 08/06/2019 08/12/2019 Malnutrition of mild degree (HCC) [E44.1] 08/07/2019 08/12/2019 Generalized anxiety disorder [F41.1] 10/17/2019 Bipolar 1 disorder, depressed, moderate (HCC) [*04/30/2020 Hypertensive heart disease without congestive h*06/06/2020 Mixed hyperlipidemia [E78.2] 06/06/2020 Moderate persistent asthma without complication*06/06/2020 Nonrheumatic aortic valve stenosis [I35.0] 06/06/2020 Patent foramen ovale [Q21.12] 06/06/2020 Stage 3 chronic kidney disease [N18.30] 06/06/2020 Status post hysterectomy [Z90.710] 06/06/2020 Urge incontinence of urine [N39.41] 06/06/2020 Herpes simplex [B00.9] 06/06/2020 Cardiomegaly [I51.7] 06/06/2020 Allergic rhinitis [J30.9] more content not included)... [facility] 04-03-2024 Telephone encounter Note follow up in 6 months with CTA chest Cee Hartman RN [facility] 04-03-2024 Miscellaneous Notes follow up in 6 months with CTA chest Cee Hartman RN documented in this encounter [facility] 03-21-2024 Note HNO ID: [id number] Author: MICHELL MATHIS MD Service: ? Author Type: Physician Type: Progress Notes Filed: 03/21/2024 16:27 Note Text: Heart, Vascular and Thoracic [facility] Template ID: [id number] SERVICE DATE: 03/21/2024 SERVICE TIME: 4:10 PM Patient Type: New Visit to determine Surgery: Yes HPI: Ms. Pily Barnes is a 73 year old female w/ h/o htn, ckd, esophageal stenosis s/p egd dilation, Parkinson's symptoms w/ poor baseline mobility and function (limited by weakness and herrmann) and arrives to office today in wheelchair. CT chest reviewed was w/o contrast but found incidental aortic aneurysm this past December (12/2023) w/ ascending up to 4.6 cm. Unclear if father of aortic aneurysm but he was in his late 80s. She lives in assisted living and generally uses walker to get around. I have also reviewed echo today, EF 58%, nl RV, trace MR/TR, trace AI, MG 6 across AV. Impression: Ascending aortic aneurysm 4.6 cm, AV functioning well Plan: I discussed the indications to proceed with aortic aneurysm repair including aortic size >5cm, growth >0.5 cm /yr, concomitant need for AV surgery, +FH of connective tissue dz. At this point, I do not see any indication to proceed with OHS. I discussed the need to continue to monitor BP and ongoing aortic surveillance with Ms Barnes. All questions answered. I do think that even if the size threshold of 5 cm is met, surgical intervention would be difficult for Ms Barnes given her baseline functional status and limited mobility. Would favor a size threshold of >5.5 cm for her and would need to weigh risks and benefits carefully if that decision point is reached in the future. Will continue to follow her aorta through serial imaging. I personally spent 30 minutes in total time involved in the management and care of this patient. SIGNATURE: Michell Mathis MD PATIENT NAME: Pily Barnes DATE: March 21, 2024 TIME: 4:10 PM [facility] 03-21-2024 History of Present illness Narrative Heart, Vascular and Thoracic [facility] Template ID: [id number] SERVICE DATE: 03/21/2024 SERVICE TIME: 4:10 PM Patient Type: New Visit to determine Surgery: Yes HPI: Ms. Pily Barnes is a 73 year old female w/ h/o htn, ckd, esophageal stenosis s/p egd dilation, Parkinson's symptoms w/ poor baseline mobility and function (limited by weakness and herrmann) and arrives to office today in wheelchair. CT chest reviewed was w/o contrast but found incidental aortic aneurysm this past December (12/2023) w/ ascending up to 4.6 cm. Unclear if father of aortic aneurysm but he was in his late 80s. She lives in assisted living and generally uses walker to get around. I have also reviewed echo today, EF 58%, nl RV, trace MR/TR, trace AI, MG 6 across AV. Impression: Ascending aortic aneurysm 4.6 cm, AV functioning well Plan: I discussed the indications to proceed with aortic aneurysm repair including aortic size >5cm, growth >0.5 cm /yr, concomitant need for AV surgery, +FH of connective tissue dz. At this point, I do not see any indication to proceed with OHS. I discussed the need to continue to monitor BP and ongoing aortic surveillance with Ms Barnes. All questions answered. I do think that even if the size threshold of 5 cm is met, surgical intervention would be difficult for Ms Barnes given her baseline functional status and limited mobility. Would favor a size threshold of >5.5 cm for her and would need to weigh risks and benefits carefully if that decision point is reached in the future. Will continue to follow her aorta through serial imaging. I personally spent 30 minutes in total time involved in the management and care of this patient. SIGNATURE: Michell Mathis MD PATIENT NAME: Pily Barnes DATE: March 21, 2024 TIME: 4:10 PM documented in this encounter [facility] 03-21-2024 History of Present illness Narrative Images from the original note were not included. Heart, Vascular and Thoracic [facility] Department of Cardiovascular Medicine SECTION OF CARDIOVASCULAR IMAGING OUTPATIENT VISIT DATE 03/21/2024 OUTPATIENT VISIT TYPE CONSULTATION PRIMARY CARE PHYSICIAN: Ashu Ricci [id number] [id number] REFERRING PHYSICIAN Michell Mathis 1950 [address] [facility] [id number] CHIEF COMPLAINT: Patient presents with: Consult TAA Pre-Op Exam HISTORY OF PRESENT ILLNESS: Cardiac consultation at the request of Dr. Michell Mathis. A copy of this consultation note will be provided to the requesting physician by way of shared Medical record or letter to requesting physician via [place] mail. Ms. Barnes is a 73 year old female who is seen today for dilated thoracic aorta (in conjunction with Dr Mathis cardiac surgeon), along with history of coronary artery calcifications, hypertension, dyslipidemia, CKD, obesity, asthma, diverticulitis, esophageal stenosis s/p EGD dilation, Parkinson's symptoms and bipolar/depression. She first found out having dilated thoracic aorta on CT scan 12/2023 incidentally (for abdominal pain at ER). At baseline her mobility is limited to 50-100 yards due to shortness of breath which is a chronic problem (wonders if related to Parkinson's though no formal diagnosis I can see) and she lives in assisted living facility to help with her daily activities. Otherwise she denies chest pain, orthopnea/PND, edema, palpitations, dizziness and syncope. Non-smoker. Says father may have had aortic aneurysm but uncertain. Nursing Intake History Ms. Barnes is a 73 year old female from [place], [place] here today for cardiovascular evaluation related to ascending aortic aneurysm 4.6cm Pily has a significant medical history of ascending aortic aneurysm, chronic kidney disease, hypertension, mitral valve disorder, asthma. Ms. Barnes states in 12/2023, she went to the ER because of abdominal pain and she underwent a CT scan and incidentally found out ascending aortic aneurysm. After patient discharged from ER, she went to visited the primary care physician and PCP reccommended her to have a further evaluation from a certified prosthetist/orthotist in [facility]; therefore, PCP referred patient here to have a further assessment. Patient currently herrmann not have a primary certified prosthetist/orthotist. She reports SOB on exertion. She denies lightheadedness, dizziness, syncope, chest pain, palpitations, edema, cough. Ms. Barnes currently retired. She is not following any special diet and she does not participates any exercises. The last CT was done in 2023, it showed ascending aortic aneurysm measuring up to 4.6 cm. PAST MEDICAL HISTORY Diagnosis Date Ascending aortic aneurysm (HCC) 4.6cm Asthma Balance problem uses a walker Bipolar 1 disorder (HCC) CKD (chronic kidney disease) Depression Hypertension Mitral valve disorder TATI (obstructive sleep apnea) 08/06/2019 undiagnosed Substernal goiter PAST SURGICAL HISTORY Procedure Laterality Date COLONOSCOPY Years ago EGD W/O BRSH SPEC VARICIES INJ 11/16/2023 5 cm hiatal hernia, tubular adenoma HYSTERECTOMY HX POST-CATARACT LASER SURGERY 09/2020 THYROIDECTOMY TOTAL/COMPLETE Left 12/16/2020 Dr. Soria SOCIAL HISTORY Social History Tobacco Use Smoking status: Never Smokeless tobacco: Never Vaping Use Vaping Use: Never used Substance Use Topics Alcohol use: Never Drug use: Never FAMILY HISTORY Problem Relation Age of Onset Psychiatry Mother other (parkinson disease) Mother Uterine Cancer Mother Ischemic Heart Disease Father Thyroid Sister No Known Problems Brother No Known Problems Maternal Grandmother No Known Problems Maternal Grandfather No Known Problems Paternal Grandmother No Known Problems Paternal Grandfather No Known Problems Son No Known Problems Son Colon Cancer No Family History ALLERGIES: ALLERGIES Allergen Reactions Sulfadiazine Swelling Facial swelling Milk Other: See Comments Abdominal bloating Seasonal Allergies Intolerance Sulfa (Sulfonamide * Itching MEDICATIONS: amLODIPine (NORVASC) 5 mg tablet^Take 5 mg by mouth once daily.^Disp: ^Rfl: famotidine (PEPCID) 20 mg tablet^Take 20 mg by mouth as needed.^Disp: ^Rfl: DELSYM 30 mg/5 mL oral liquid^Take 30 mg by mouth as needed.^Disp: ^Rfl: MUCINEX 600 mg 12 hr tablet^Take 600 mg by mouth once daily.^Disp: ^Rfl: HIGH POTENCY MULTIVITAMIN 400 mcg^Take 1 tablet by mouth once daily.^Disp: ^Rfl: nystatin (MYCOSTATIN) powder^Apply to affected area as needed.^Disp: ^Rfl: Omeprazole 20 mg TbEC^Take 20 mg by mouth once daily.^Disp: ^Rfl: ondansetron (ZOFRAN) 4 mg tablet^Take 4 mg by mouth every 6 hours as needed.^Disp: ^Rfl: cholecalciferol (VITAMIN D3) 50 mcg (2,000 unit) tablet^Take 2,000 Units by mouth once daily.^Disp: ^Rfl: loratadine (CLARITIN) 10 mg tablet^Take 10 mg by mouth once daily.^Disp: ^Rfl: buPROPion XL (WELLBUTRIN XL) 300 mg 24 hr tablet^Take 1 tablet by mouth once daily.^Disp: 30 tablet^Rfl: 2 FLUoxetine (PROZAC) 20 mg capsule^3 capsule daily^Disp: 90 capsule^Rfl: 2 ARIPiprazole (ABILIFY) 5 mg tablet^Take 1 tablet by mouth once daily.^Disp: 30 tablet^Rfl: 2 lamoTRIgine (LAMICTAL) 25 mg tablet^Take 2 tablets by mouth once daily.^Disp: 180 tablet^Rfl: 1 paliperidone palmitate (INVEGA SUSTENNA) 39 mg/0.25 mL syrg injection^INJECT 0.25 ML into THE MUSCLE EVERY FOUR WEEKS^Disp: 0.25 mL^Rfl: 1 fluticasone-vilanterol (BREO ELLIPTA) 100-25 mcg/dose inhaler^Inhale 1 puff BY MOUTH INTO THE LUNGS EVERY DAY^Disp: 28 Each^Rfl: 3 albuterol HFA (PROVENTIL HFA, VENTOLIN HFA) 90 mcg/actuation inhaler^INHALE TWO PUFFS BY MOUTH INTO THE LUNGS instructed EVERY 4 HOURS NEEDED FOR WHEEZING OR FOR SHORTNESS OF BREATH^Disp: 18 g^Rfl: 3 losartan (COZAAR) 100 mg tablet^Take 1 tablet by mouth once daily.^Disp: 90 tablet^Rfl: 3 rosuvastatin (CRESTOR) 20 mg tablet^Take 1 tablet by mouth daily at bedtime.^Disp: 90 tablet^Rfl: 3 REVIEW OF SYSTEMS: REVIEW OF SYSTEMS: Positive in BOLD GENERAL: Weight loss or gain, Fever or Chills, Weakness and Sleep difficulties. HEENT: Headache, Glasses/Contacts, Eye pain, Impaired Vision, Trouble/Decreased Hearing, Ringing in Ears, Nosebleeds, Dental Problems, Bleeding Gums, Dentures NECK: Swelling, Pain, Stiffness RESPIRATORY: Cough, Blood in Sputum, Shortness of breath, Wheezing, Asthma, Sleep Apnea SKIN: Rashes, Itching GASTROINTESTINAL: Trouble swallowing, Heartburn, Change in bowel habits, Blood in stool, Dark black stools MUSCULOSKELETAL: Muscle or joint pain, Stiffness , Joint swelling NEUROLOGIC/PSYCHIATRIC: Weakness, Paralysis, Numbness, Tingling, Tremor, Nervousness, Anxiety, Depressed mood, Memory loss HEMATOLOGICAL/LYMPHATIC: Easy bruising , Easy bleeding ENDOCRINE: Heat or cold intolerance, Excessive sweating, Frequent urination, Frequent thirst PHYSICAL EXAMINATION: BP 144/90 (BP Site: Left Arm, BP Position: Sitting, BP Cuff Size: Regular Adult) Pulse 62 Ht 152.4 cm (5') Wt 72.6 kg (160 lb) SpO2 95% BMI 31.25 kg/m General: Well appearing, in no acute distress. Skin: No clubbing, no cyanosis. Neck: No jugular venous distention, no carotid bruits, carotids have a normal upstroke Lungs: Clear to auscultation bilaterally, no wheezing or rhonchi. Heart: Regular rhythm, PMI not displaced, S1 ejection systolic murmur, S2 normal, no S3, no S4, no heaves, no rub Extremities: No peripheral edema . Grade 2/4 distal pulses bilaterally. Neuro: Oriented to person, place and time, alert, cooperative, gait coordinated. CARDIOVASCULAR MEDICINE TESTING: OSH CT (12/17/2023-[facility]) 1. Sigmoid colonic mural thickening with diverticula and pericolonic fatty stranding suggestive of acute diverticulitis. No abscess is seen. Follow-up colonoscopy is suggested after treatment. 2. Bilateral parapelvic renal cysts. 3. Ascending aortic aneurysm measuring up to 4.6 cm. 4. Elevation of right hemidiaphragm with minimal basilar atelectasis. Electrocardiogram: 03/21/2024 sinus rhythm 62bpm, lateral T-wave inversion. Laboratory Testin03/21/2024 Cr 1.03/eGFR 58, NTproBNP 146 (modest elevation, TC 215/LDL [address] Angiography: 03/21/2024 not done Last ECHO Result Conclusion ECHO Collected: 03/21/2024 9:07 AM (Final result) Impression: CONCLUSIONS: - Technically difficult exam due to body habitus, suboptimal positioning and pt in wheelchair. - Exam indication: Re-evaluation of known ascending aortic dilatation to establish baseline - The left ventricle is normal in size. There is severe upper septal left ventricular hypertrophy. Left ventricular systolic function is normal. EF = 58 5% (2D biplane) Normal left ventricular diastolic function. - The right ventricle is normal in size. Right ventricular systolic function is normal. - The left atrial cavity is severely dilated. - The visualized aorta is dilated with a maximal dimension of 4.7 cm. - Estimated right ventricular systolic pressure is not reported due to an insufficient tricuspid regurgitation signal. Estimated right atrial pressure is 8 mmHg based on IVC assessment. - The patient has not had a prior CC echocardiographic exam for comparison. * * * Final * * * I have personally reviewed the Electrocardiogram, Laboratory Testing, Echocardiogram, and Cardiac CT Angiography. IMPRESSION: Ms. Barnes is a 73 year old female with dilated thoracic aorta (in conjunction with Dr Mathis cardiac surgeon), along with history of coronary calcifications, hypertension, dyslipidemia, CKD, asthma, diverticulitis, esophageal stenosis s/p EGD dilation, Parkinson's symptoms, and bipolar/depression. She has shortness of breath on exertion symptoms, likely multifactorial (has asthma on inhalers, overweight, ?Parkinson's symptoms). Echo today shows normal biventricle size/systolic function, no significant valvular abnormalities, dilated thoracic aorta. OSH-CT limited study 12/2023 showed dilated ascending aorta ~4.6 cm, not performed today (although was scheduled). Aortic surgery is recommended to prevent acute aortic syndrome/dissection when aortic dimensions are 5.5+ cm, and may be considered at 5.0+ cm if there are other risk factors like family history/bicuspid aortic valve, so she just needs ongoing annual imaging surveillance with CT or MRI (latter without radiation/contrast). Given her baseline limited function, would probably only operate when reach 5.5 cm when absolutely necessary considering elevated surgical risk and expected prolonged recovery. Medications sotelo will change her lisinopril to losartan for aortic protection on top of blood pressure, and add rosuvastatin given her coronary calcifications and elevated cholesterol to prevent heart attack/stroke, along with lifestyle measures below and genetics consult as discussed. PLAN AND RECOMMENDATIONS: Follow-up in 1-year in cardiology clinic with CTAchest, ECG and labs. Stop lisinopril 20mg daily and start losartan 100mg daily. BP target <130/85 mmHg (monitor at least weekly). Start rosuvastatin 20mg daily. Also stop calcium given potential adverse effect on heart arteries (can continue vitamin D). Lifestyle measures include avoid heavy lifting (<25-30 pounds), weight loss, healthy diet and regular exercise as able. Genetics consult to evaluate genetic causes for aortopathy. CONTACT INFORMATION: Cj Cardenas MD, FRACP, FACC, FESC, FASE Staff Risk Advisor, Section of Cardiovascular Imaging, Department of Cardiovascular Medicine, Heart, Vascular and Thoracic [place], [facility] Analysis Internassembler garment form, [facility], [facility] Desk [address], [address] [place] [address] Appointments: [phone], Office phone: [phone], Office fax: [phone] documented in this encounter [facility] 03-21-2024 Note HNO ID: [id number] Author: JORGE ZELAYA MD Service: ? Author Type: Physician Type: Progress Notes Filed: 03/21/2024 18:49 Note Text: Heart, Vascular and Thoracic [place] [facility] Department of Cardiovascular Medicine SECTION OF CARDIOVASCULAR IMAGING OUTPATIENT VISIT DATE 03/21/2024 OUTPATIENT VISIT TYPE CONSULTATION PRIMARY CARE PHYSICIAN: Ashu Ricci [address] [place] [address] REFERRING PHYSICIAN Michell Mathis [address] [address] CHIEF COMPLAINT: Patient presents with: Consult TAA Pre-Op Exam HISTORY OF PRESENT ILLNESS: Cardiac consultation at the request of Dr. Michell Mathis. A copy of this consultation note will be provided to the requesting physician by way of shared Medical record or letter to requesting physician via US mail. Ms. Barnes is a 73 year old female who is seen today for dilated thoracic aorta (in conjunction with Dr Mathis cardiac surgeon), along with history of coronary artery calcifications, hypertension, dyslipidemia, CKD, obesity, asthma, diverticulitis, esophageal stenosis s/p EGD dilation, Parkinson's symptoms and bipolar/depression. She first found out having dilated thoracic aorta on CT scan 12/2023 incidentally (for abdominal pain at ER). At baseline her mobility is limited to 50-100 yards due to shortness of breath which is a chronic problem (wonders if related to Parkinson's though no formal diagnosis I can see) and she lives in assisted living facility to help with her daily activities. Otherwise she denies chest pain, orthopnea/PND, edema, palpitations, dizziness and syncope. Non-smoker. Says father may have had aortic aneurysm but uncertain. Nursing Intake History Ms. Barnes is a 73 year old female from [place], [place] here today for cardiovascular evaluation related to ascending aortic aneurysm 4.6cm Pily has a significant medical history of ascending aortic aneurysm, chronic kidney disease, hypertension, mitral valve disorder, asthma. Ms. Barnes states in 12/2023, she went to the ER because of abdominal pain and she underwent a CT scan and incidentally found out ascending aortic aneurysm. After patient discharged from ER, she went to visited the primary care physician and PCP reccommended her to have a further evaluation from a certified prosthetist/orthotist in [facility]; therefore, PCP referred patient here to have a further assessment. Patient currently herrmann not have a primary certified prosthetist/orthotist. She reports SOB on exertion. She denies lightheadedness, dizziness, syncope, chest pain, palpitations, edema, cough. Ms. Barnes currently retired. She is not following any special diet and she does not participates any exercises. The last CT was done in 2023, it showed ascending aortic aneurysm measuring up to 4.6 cm. PAST MEDICAL HISTORY Diagnosis Date Ascending aortic aneurysm (HCC) 4.6cm Asthma Balance problem uses a walker Bipolar 1 disorder (HCC) CKD (chronic kidney disease) Depression Hypertension Mitral valve disorder TATI (obstructive sleep apnea) 08/06/2019 undiagnosed Substernal goiter PAST SURGICAL HISTORY Procedure Laterality Date [facility]ONOSCOPY Years [facility]IC[facility] INJ 11/16/2023 5 cm hiatal hernia, tubular adenoma HYSTERECTOMY HX POST-CATARACT LASER SURGERY 09/2020 THYROIDECTOMY TOTAL/COMPLETE Left 12/16/2020 Dr. Soria SOCIAL HISTORY Social History Tobacco Use Smoking status: Never Smokeless tobacco: Never Vaping Use Vaping Use: Never used Substance Use Topics Alcohol use: Never Drug use: Never FAMILY HISTORY Problem Relation Age of Onset Psychiatry Mother other (parkinson disease) Mother Uterine Cancer Mother Ischemic Heart Disease Father Thyroid Sister No Known Problems Brother No Known Problems Maternal Grandmother No Known Problems Maternal Grandfather No Known Problems Paternal Grandmother No Known Problems Paternal Grandfather No Known Problems Son No Known Problems Son Colon Cancer No Family History ALLERGIES: ALLERGIES Allergen Reactions Sulfadiazine Swelling Facial swelling Milk Other: See Comments Abdominal bloating Seasonal Allergies Intolerance Sulfa (Sulfonamide * Itching MEDICATIONS: amLODIPine (NORVASC) 5 mg tabletTake 5 mg by mouth once daily.Disp: Rfl: famotidine (PEPCID) 20 mg tabletTake 20 mg by mouth as needed.Disp: Rfl: DELSYM 30 mg/5 mL oral liquidTake 30 mg by mouth as needed.Disp: Rfl: MUCINEX 600 mg 12 hr tabletTake 600 mg by mouth once daily.Disp: Rfl: HIGH POTENCY MULTIVITAMIN 400 mcgTake 1 tablet by mouth once daily.Disp: Rfl: nystatin (MYCOSTATIN) powderApply to affected area as needed.Disp: Rfl: Omeprazole 20 mg TbECTake 20 mg by mouth once daily.Disp: Rfl: ondansetron (ZOFRAN) 4 mg tabletTake 4 mg by mouth every 6 hours as needed.Disp: Rfl: cholecalciferol (VITAMIN D3) 50 mcg (2,000 unit) tabletTake 2,000 Un (more content not included)... [facility] 03-04-2024 Instructions Arely Hercules PA-C - 03/04/2024 2:56 PM EDT Images from the original note were not included. Bowel Preparation Instructions for: Miralax-Gatorade Preparations IF YOU DO NOT FOLLOW THESE DIRECTIONS, YOUR COLONOSCOPY WILL BE CANCELLED. Javier Instructions: Your bowel must be empty so that your doctor can clearly view your colon. Follow all of the instructions in this handout EXACTLY as they are written. Do NOT eat any solid food the ENTIRE day before your colonoscopy. Buy your bowel preparation at least 5 days before your colonoscopy. Four (4) Dulcolax laxative tablets containing 5mg of bisacodyl each (NOT Dulcolax stool softener) One (1) 8.3oz. bottle Miralax (238 grams) or generic equivalent 2 x 32oz. Bottles of Gatorade (NOT RED) Diabetic Patients: Use G2 (Gatorade 2) TRANSPORTATION on the Day of Your Exam A responsible adult MUST be present with you at Check In prior to your colonoscopy and REMAIN in the endoscopy area until you are discharged. You are NOT ALLOWED to drive, take a taxi or bus, or leave the Endoscopy Center ALONE. If you do not have a responsible commercial driver's license driver (family member or friend) with you to take you home, your exam cannot be done with sedation and will be cancelled. Please bring a list of all of your current medications, including any Xcui-[id number]-Pcqowbj medications with you. Medications If you take insulin, diabetic medications or blood thinners such as Coumadin (warfarin), Plavix (clopidogrel), Ticlid (ticlopidine hydrochloride), Agrylin (anagrelide), Xarelto (Rivaroxaban), Pradaxa (Dabigatran), Eliquis (Apixaban), and Effient (Prasugrel). You MUST call the doctors who orders those medicines for instructions on altering the dosage before your colonoscopy. All other medications should be taken the day of the exam with a sip of water including ASPIRIN. Five (5) Days Before Your Colonoscopy Do NOT take medicines that stop diarrhea - such as Imodium, Kaopectate, or Pepto Bismol. Do NOT take fiber supplements - such as Metamucil, Citrucel, or Perdiem. Do NOT take products that contain iron - such as multi-vitamins (the label lists what is in the products). Three (3) Days Before Your Colonoscopy Do NOT eat high-fiber foods - such as popcorn, beans, seeds (flax, sunflower, quinoa), multigrain bread, nuts, salad/vegetables, or fresh and dried fruit. 1 Bowel Preparation Instructions for: Miralax-Gatorade Preparations One (1) Day Before Your Colonoscopy Only drink clear liquids the ENTIRE DAY before your colonoscopy. Do NOT eat any solid foods. Drink at least 8 ounces of clear liquids every hour after waking up. The clear liquids you can drink include: Clear Liquid (NO RED LIQUIDS) DO NOT DRINK Gatorade, Pedialyte or Powerade Clear broth or bouillon Coffee or tea (no milk or non-dairy creamer) Carbonated and non-carbonated soft drinks Kavin-Aid or other fruit flavored drinks Strained fruit juices (no pulp) Jell-O, popsicles, hard candy Water Alcohol Milk or non-dairy creamers Noodles or vegetables in soup Juice with pulp Liquid you cannot see through Do not use tobacco/vaping products Mix 1/2 of Miralax bottle (119 grams) in each 32 ounces of Gatorade bottle until dissolved. Keep cool in the refrigerator. DO NOT ADD ICE. The bowel preparation solution will be consumed in two parts. Part 1 5:00 PM - Evening before your colonoscopy Take 4 Dulcolax tablets. 6 PM - Evening before your colonoscopy Drink 32 oz. of the mixed solution. Drink an 8 oz. glass of bowel preparation every 15 minutes for a total of 4 glasses. Fifteen (15) minutes later, drink an 8 oz. glass of of clear liquids every 15 minutes for a total of 2 glasses. You may continue to drink clear liquids till midnight. Part 2 On the day of your colonoscopy you may drink clear liquids up to (three) 3 hours prior to procedure. 4 1/2 hours before your colonoscopy Take another 32 oz. bottle of mixed solution. Drink an 8 oz. glass of bowel prep every 15 minutes for a total of 4 glasses. Fifteen (15) minutes later, drink an 8 oz. glass of clear liquids every 15 minutes for a total of 2 glasses. You may continue to drink clear liquids up to (three) 3 hours before your exam. 2 08/2019 documented in this encounter [facility] 03-04-2024 Note HNO ID: [id number] Author: ARELY HERCULES PA-C Service: ? Author Type: Physician Installations Inspector Type: Progress Notes Filed: 03/04/2024 15:15 Note Text: CHIEF COMPLAINT: Patient presents with: Recheck: EGD- Dysphagia HPI Pily Barnes is a 73 year old female here today for Recheck (EGD- Dysphagia ) PMHx of asthma, Bipolar 1, CKD, depression, TATI, HTN Son is present today. Patient tells me that she is feeling well today. Notes that she has not had dysphagia since her EGD with dilation. Notes she is feeling well since her diverticulitis flare. Note bowel movements are normal. No rectal bleeding. This was her first diverticulitis flare. Last OV with me 10/03/2023: Assessment/Plan (R13.10) Dysphagia, unspecified type (primary encounter diagnosis) (R93.3) Abnormal barium swallow 1. Dysphagia, unspecified type -- Patient with dysphagia to solids, liquids and pills for at least the last 6 months. Feels things getting stuck in the cervical esophagus. -- Plan for EGD w/ possible dilation for further evaluation - EGD DIAGNOSTIC; Future 2. Abnormal barium swallow -- Esophagram is showing narrowing in the cervical esophagus and mucosal changes in the distal esophagus. -- Plan for EGD for further evaluation - EGD DIAGNOSTIC; Future Follow up in office PRN. Current Outpatient Medications Medication Sig calcium carbonate 500 mg calcium (1,250 mg) chewable tablet amLODIPine (NORVASC) 5 mg tablet acetaminophen (TYLENOL) 325 mg tablet famotidine (PEPCID) 20 mg tablet DELSYM 30 mg/5 mL oral liquid MUCINEX 600 mg 12 hr tablet HIGH POTENCY MULTIVITAMIN 400 mcg nystatin (MYCOSTATIN) powder Omeprazole 20 mg TbEC ondansetron (ZOFRAN) 4 mg tablet Take 4 mg by mouth every 6 hours as needed. cholecalciferol (VITAMIN D3) 50 mcg (2,000 unit) tablet loratadine (CLARITIN) 10 mg tablet clonazePAM (KLONOPIN) 0.5 mg tablet 1/2 tablet by mouth every day as needed for severe anxiety buPROPion XL (WELLBUTRIN XL) 300 mg 24 hr tablet Take 1 tablet by mouth once daily. FLUoxetine (PROZAC) 20 mg capsule 3 capsule daily ARIPiprazole (ABILIFY) 5 mg tablet Take 1 tablet by mouth once daily. lamoTRIgine (LAMICTAL) 25 mg tablet Take 2 tablets by mouth once daily. paliperidone palmitate (INVEGA SUSTENNA) 39 mg/0.25 mL syrg injection INJECT 0.25 ML into THE MUSCLE EVERY FOUR WEEKS fluticasone-vilanterol (BREO ELLIPTA) 100-25 mcg/dose inhaler Inhale 1 puff BY MOUTH INTO THE LUNGS EVERY DAY fluticasone (FLONASE) 50 mcg/actuation nasal spray instill TWO SPRAYS IN EACH nostril ONCE daily NEEDED albuterol HFA (PROVENTIL HFA, VENTOLIN HFA) 90 mcg/actuation inhaler INHALE TWO PUFFS BY MOUTH INTO THE LUNGS instructed EVERY 4 HOURS NEEDED FOR WHEEZING OR FOR SHORTNESS OF BREATH lisinopril (ZESTRIL, PRINIVIL) 20 mg tablet Take 1 tablet by mouth once daily. No current facility-administered medications for this visit. Facility-Administered Medications Ordered in Other Visits Medication Dose Route Frequency glycopyrrolate 0.2 mg injection (ROBINUL) 0.2 mg INTRAVENOUS (PACU) PRN ondansetron (PF) 4 mg injection (ZOFRAN) 4 mg INTRAVENOUS (PACU) PRN ALLERGIES Allergen Reactions Sulfadiazine Swelling Facial swelling Milk Other: See Comments Abdominal bloating Seasonal Allergies Intolerance Sulfa (Sulfonamide * Itching Social History Tobacco Use Smoking status: Never Smokeless tobacco: Never Vaping Use Vaping Use: Never used Substance Use Topics Alcohol use: No Drug use: No PAST MEDICAL HISTORY Diagnosis Date Asthma Balance problem uses a walker Bipolar 1 disorder (HCC) CKD (chronic kidney disease) Depression Hypertension Mitral valve disorder TATI (obstructive sleep apnea) 08/06/2019 undiagnosed Substernal goiter PAST SURGICAL HISTORY Procedure Laterality Date COLONOSCOPY Years ago EGD W/O BRSH SPEC VARICIES INJ 11/16/2023 5 cm hiatal hernia, tubular adenoma HYSTERECTOMY HX POST-CATARACT LASER SURGERY 09/2020 THYROIDECTOMY TOTAL/COMPLETE Left 12/16/2020 Dr. Soria FAMILY HISTORY Problem Relation Age of Onset Psychiatry Mother other (parkinson disease) Mother Uterine Cancer Mother Ischemic Heart Disease Father Thyroid Sister Colon Cancer No Family History REVIEW OF SYSTEMS Review of Systems HENT: Positive for mouth sores. All other systems reviewed and are negative. PHYSICAL EXAM BP 128/74 Pulse 82 Ht 5' 0" (1.52m) Wt 150 lb (68.0kg) BMI 29.30 kg/(m2). Physical Exam Constitutional: Appearance: Normal appearance. HENT: Head: Normocephalic and atraumatic. Eyes: General: No scleral icterus. Extraocular Movements: Extraocular movements intact. Conjunctiva/sclera: Conjunctivae normal. Pupils: Pupils are equal, round, and reactive to light. Cardiovascular: Rate and Rhythm: Normal rate and regular rhythm. Pulses: Normal pulses. Heart sounds: Normal heart sounds. Pulmonary: Effort: Pulmonary (more content not included)... [facility] 03-04-2024 History of Present illness Narrative CHIEF COMPLAINT: Patient presents with: Recheck: EGD- Dysphagia HPI Pily Barnes is a 73 year old female here today for Recheck (EGD- Dysphagia ) PMHx of asthma, Bipolar 1, CKD, depression, TATI, HTN Son is present today. Patient tells me that she is feeling well today. Notes that she has not had dysphagia since her EGD with dilation. Notes she is feeling well since her diverticulitis flare. Note bowel movements are normal. No rectal bleeding. This was her first diverticulitis flare. Last OV with me 10/03/2023: Assessment/Plan (R13.10) Dysphagia, unspecified type (primary encounter diagnosis) (R93.3) Abnormal barium swallow 1. Dysphagia, unspecified type -- Patient with dysphagia to solids, liquids and pills for at least the last 6 months. Feels things getting stuck in the cervical esophagus. -- Plan for EGD w/ possible dilation for further evaluation - EGD DIAGNOSTIC; Future 2. Abnormal barium swallow -- Esophagram is showing narrowing in the cervical esophagus and mucosal changes in the distal esophagus. -- Plan for EGD for further evaluation - EGD DIAGNOSTIC; Future Follow up in office PRN. Current Outpatient Medications Medication Sig calcium carbonate 500 mg calcium (1,250 mg) chewable tablet amLODIPine (NORVASC) 5 mg tablet acetaminophen (TYLENOL) 325 mg tablet famotidine (PEPCID) 20 mg tablet DELSYM 30 mg/5 mL oral liquid MUCINEX 600 mg 12 hr tablet HIGH POTENCY MULTIVITAMIN 400 mcg nystatin (MYCOSTATIN) powder Omeprazole 20 mg TbEC ondansetron (ZOFRAN) 4 mg tablet Take 4 mg by mouth every 6 hours as needed. cholecalciferol (VITAMIN D3) 50 mcg (2,000 unit) tablet loratadine (CLARITIN) 10 mg tablet clonazePAM (KLONOPIN) 0.5 mg tablet 1/2 tablet by mouth every day as needed for severe anxiety buPROPion XL (WELLBUTRIN XL) 300 mg 24 hr tablet Take 1 tablet by mouth once daily. FLUoxetine (PROZAC) 20 mg capsule 3 capsule daily ARIPiprazole (ABILIFY) 5 mg tablet Take 1 tablet by mouth once daily. lamoTRIgine (LAMICTAL) 25 mg tablet Take 2 tablets by mouth once daily. paliperidone palmitate (INVEGA SUSTENNA) 39 mg/0.25 mL syrg injection INJECT 0.25 ML into THE MUSCLE EVERY FOUR WEEKS fluticasone-vilanterol (BREO ELLIPTA) 100-25 mcg/dose inhaler Inhale 1 puff BY MOUTH INTO THE LUNGS EVERY DAY fluticasone (FLONASE) 50 mcg/actuation nasal spray instill TWO SPRAYS IN EACH nostril ONCE daily NEEDED albuterol HFA (PROVENTIL HFA, VENTOLIN HFA) 90 mcg/actuation inhaler INHALE TWO PUFFS BY MOUTH INTO THE LUNGS instructed EVERY 4 HOURS NEEDED FOR WHEEZING OR FOR SHORTNESS OF BREATH lisinopril (ZESTRIL, PRINIVIL) 20 mg tablet Take 1 tablet by mouth once daily. No current facility-administered medications for this visit. Facility-Administered Medications Ordered in Other Visits Medication Dose Route Frequency glycopyrrolate 0.2 mg injection (ROBINUL) 0.2 mg INTRAVENOUS (PACU) PRN ondansetron (PF) 4 mg injection (ZOFRAN) 4 mg INTRAVENOUS (PACU) PRN ALLERGIES Allergen Reactions Sulfadiazine Swelling Facial swelling Milk Other: See Comments Abdominal bloating Seasonal Allergies Intolerance Sulfa (Sulfonamide * Itching Social History Tobacco Use Smoking status: Never Smokeless tobacco: Never Vaping Use Vaping Use: Never used Substance Use Topics Alcohol use: No Drug use: No PAST MEDICAL HISTORY Diagnosis Date Asthma Balance problem uses a walker Bipolar 1 disorder (HCC) CKD (chronic kidney disease) Depression Hypertension Mitral valve disorder TATI (obstructive sleep apnea) 08/06/2019 undiagnosed Substernal goiter PAST SURGICAL HISTORY Procedure Laterality Date COLONOSCOPY Years ago EGD W/O [facility] SPEC VARICIES INJ 11/16/2023 5 cm hiatal hernia, tubular adenoma HYSTERECTOMY HX POST-CATARACT LASER SURGERY 09/2020 THYROIDECTOMY TOTAL/COMPLETE Left 12/16/2020 Dr. Soria FAMILY HISTORY Problem Relation Age of Onset Psychiatry Mother other (parkinson disease) Mother Uterine Cancer Mother Ischemic Heart Disease Father Thyroid Sister Colon Cancer No Family History REVIEW OF SYSTEMS Review of Systems HENT: Positive for mouth sores. All other systems reviewed and are negative. PHYSICAL EXAM BP 128/74 Pulse 82 Ht 5' 0" (1.52m) Wt 150 lb (68.0kg) BMI 29.30 kg/(m^2). Physical Exam Constitutional: Appearance: Normal appearance. HENT: Head: Normocephalic and atraumatic. Eyes: General: No scleral icterus. Extraocular Movements: Extraocular movements intact. Conjunctiva/sclera: Conjunctivae normal. Pupils: Pupils are equal, round, and reactive to light. Cardiovascular: Rate and Rhythm: Normal rate and regular rhythm. Pulses: Normal pulses. Heart sounds: Normal heart sounds. Pulmonary: Effort: Pulmonary effort is normal. Breath sounds: Normal breath sounds. Abdominal: General: Abdomen is flat. Bowel sounds are normal. Palpations: Abdomen is soft. Tenderness: There is no abdominal tenderness. Musculoskeletal: Cervical back: Normal range of motion and neck supple. Comments: In wheelchair Skin: General: Skin is warm and dry. Coloration: Skin is not jaundiced. Neurological: General: No focal deficit present. Mental Status: She is alert and oriented to person, place, and time. Psychiatric: Mood and Affect: Mood normal. Behavior: Behavior normal. Thought Content: Thought content normal. Judgment: Judgment normal. Assessment/Plan (K22.2) Esophageal stenosis (primary encounter diagnosis) (K57.92) Diverticulitis 1. Esophageal stenosis -- Doing well since her EGD w/ dilation. Agreeable to proceed with repeat recommended by Dr. Roy. 2. Diverticulitis -- Patient with first diverticulitis flare in December. Feeling well today. -- Continue with high fiber diet. -- Plan for colonoscopy for further evaluation - COLONOSCOPY DIAGNOSTIC; Future Follow up in office PRN. Recommended to please call office/go to ER if fever, chills, chest pain, SOB, diarrhea, nausea, emesis, worsening abdominal pain, dehydration occurs I spent a total of 20 minutes on the date of the service which included preparing to see the patient, [id number] patient care, completing clinical documentation, obtaining and/or reviewing separately obtained history, performing a medically appropriate examination, counseling and educating the patient/family/caregiver, and ordering medications, tests, or procedures. Arely Hercules PA-C March 04, 2024 3:01 PM documented in this encounter [facility] 02-23-2024 Telephone encounter Note eval only cards, testing, Dr. Mathis *shazia please call with date I have called and discussed with Pily's son Jenise, Dr. Mathis's recommendations which are further testing and eval. She would like to come shazia. Cee Hartman RN [facility] 02-23-2024 Miscellaneous Notes eval only cards, testing, Dr. Mathis *shazia please call with date I have called and discussed with Pily's son Jenise, Dr. Mathis's recommendations which are further testing and eval. She would like to come shazia. Cee Hartman RN diagnosis: ascending aorta 4.6 cm history: diverticulitis, bipolar, HTN, TATI, SAH blood thinners: none [facility] CT. Mag Harmon LOCAL PATIENT Received Routed [facility] Telephone Encounter from JANA Thompson Mauro Barnes is being referred to First Available/Unspecified by No referring provider defined for this encounter. 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 Referral triage process explained: Yes Patient will receive a call from Cardiac NPM after triage review with surgeon to discuss any additional testing and/or consults that will be scheduled. Pt will then receive a call from our scheduling office for scheduling. Please call pt at [phone]. Patient Registration: Registration complete/updated: yes Insurance card(s) scanned in [facility] with in the past year: Yes Pt's [employer] is inactive. Ok to communicate to pt via [employer] not asked Medical Records: Records in [facility] (internal CC records): Yes Imaging in [facility] (internal CC records): Yes Care Everywhere - queried yes, downloaded Yes Linked Outside Organizations (list): [facility] Radiology Imaging Requested: yes Date: 02/21/24 Outside Hospital(s) requested imaging from: [facility]. Imaging will be received via Electronic Transfer Received: Yes Imaging uploaded: Yes via [employer]: [employer] Waiting on additional: No. Missing (list): N/A Additional providers added to Care Teams: N/A Additional Notes/Comments: N/A Enct routed to: Yes, Cardiac NPM for triage Mag Harmon documented in this encounter [facility] 02-22-2024 Telephone encounter Note diagnosis: ascending aorta 4.6 cm history: diverticulitis, bipolar, HTN, TATI, SAH blood thinners: none [facility] 02-21-2024 Telephone encounter Note Email sent to Raquel in file room at [facility], requesting image of CT. Mag Harmon [facility] 02-21-2024 Telephone encounter Note IN [facility] Work Phone: 02-21-2024 Miscellaneous Notes IN Insurance Card(s) scanned into [employer] Please register/advise Thank You! documented in this encounter [facility] 02-21-2024 Telephone encounter Note Insurance Card(s) scanned into [employer] Please register/advise Thank You! [facility] 02-21-2024 Telephone encounter Note LOCAL PATIENT Received Routed [facility] Telephone Encounter from Ashu Ricci NP Pily Barnes is being referred to [facility] Available[facility]Unspecified by No referring provider defined for this encounter. 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 Referral triage process explained: Yes Patient will receive a call from Cardiac NPM after triage review with surgeon to discuss any additional testing and/or consults that will be scheduled. Pt will then receive a call from our scheduling office for scheduling. Please call pt at [phone]. Patient Registration: Registration complete/updated: yes Insurance card(s) scanned in [facility] with in the past year: Yes Pt's [employer] is inactive. Ok to communicate to pt via [employer] not asked Medical Records: Records in [facility] (internal CC records): Yes Imaging in [facility] (internal CC records): Yes Care Everywhere - queried yes, downloaded Yes Linked Outside Organizations (list): [facility] Radiology Imaging Requested: yes Date: 02/21/24 Outside Hospital(s) requested imaging from: [facility]. Imaging will be received via Electronic Transfer Received: Yes Imaging uploaded: Yes via [employer]: [employer] Waiting on additional: No. Missing (list): N/A Additional providers added to Care Teams: N/A Additional Notes/Comments: N/A Enct routed to: Yes, Cardiac NPM for triage Mag Harmon [facility] 02-19-2024 Telephone encounter Note RECEIVED CALL FROM: Lorena Motnana/ ref. PATIENT INFORMATION: Name: Pily Barnes : 1950 (home) [phone] (cell) Email: [email or web address] Referring Provider: No referring provider defined for this encounter. Phone: N/A Fax: Requested Surgeon: First Available/Unspecified Reason for appointment/diagnosis: Aneurysm of Ascending Aorta 4.6cm, without rupture Monika Cano February 19, 2024 4:07 PM [facility] 02-19-2024 Miscellaneous Notes RECEIVED CALL FROM: Lorena Montana/ ref. PATIENT INFORMATION: Name: Pily Barnes : 1950 (home) [phone] (cell) Email: [email or web address] Referring Provider: No referring provider defined for this encounter. Phone: N/A Fax: Requested Surgeon: First Available/Unspecified Reason for appointment/diagnosis: Aneurysm of Ascending Aorta 4.6cm, without rupture Monika Cano February 19, 2024 4:07 PM documented in this encounter [facility] 12-17-2023 Emergency department Note This RN attempt to give report to nursing facility. Busy signal noted x3 attempts. surgical supply assistant notified. Ela Hensley RN 12/17/231816 [facility] 12-17-2023 Emergency department Note This RN attempt to give report to nursing facility. Busy signal noted x3 attempts. surgical supply assistant notified. Ela Hensley RN 12/17/231816 Patient aware a urine specimen is needed. Educated to advise staff when urge to urinate to transfer to restroom. Call light left in patient reach. Ela Hensley RN 12/17/23 1322 EMERGENCY DEPARTMENT ENCOUNTER Pt Name: Pily Barnes Birthdate 1950 Date of evaluation: 12/17/2023 ED Provider: Albert Lara DO CHIEF COMPLAINT Chief Complaint Patient presents with Rectal Bleeding Abdominal Cramping HISTORY OF PRESENT ILLNESS (Location/Symptom, Timing/Onset, Context/Setting, Quality, Duration, Modifying Factors, Severity) Note limiting factors. I wore appropriate PPE for the entirety of this encounter. HPI Pily Barnes is a 73 y.o. who presents to the emergency department 1 episode of rectal bleeding. The patient states she was seen here in the emergency department yesterday discharged home, states she had an episode of rectal bleeding and came to the emergency department. States that she does have some subtle superpubic abdominal pain. She states that she does not have any active bleeding currently. Nursing Notes were reviewed. Limitations to history: Outside historians: REVIEW OF SYSTEMS Review of Systems Pertinent positives and negatives as per HPI PAST MEDICAL HISTORY Past Medical History: Diagnosis Date Anxiety Aspirin long-term use history Asthma Bipolar 1 disorder (HCC) Chronic kidney disease Depression Difficulty walking High blood pressure Lack of coordination Mitral valve insufficiency Muscle weakness Presence of intraocular lens Repeated falls Rhabdomyolysis Sleep apnea Suicidal ideations Traumatic subarachnoid hemorrhage without loss of consciousness (HCC) SURGICAL HISTORY Past Surgical History: Procedure Laterality Date CERVICAL SPINE SURGERY 03/02/2023 C3-C6 ANTERIOR CERVICAL DECOMPRESSION, FUSION HYSTERECTOMY THYROID SURGERY N/A half CURRENT MEDICATIONS Previous Medications ALBUTEROL 108 (90 BASE) MCG/ACT INHALER INHALE TWO PUFFS BY MOUTH INTO THE LUNGS instructed EVERY 4 HOURS NEEDED FOR WHEEZING OR FOR SHORTNESS OF BREATH AMLODIPINE (NORVASC) 2.5 MG TABLET Take 2.5 mg by mouth daily. ARIPIPRAZOLE (ABILIFY) 5 MG TABLET Take 5 mg by mouth daily. BREO ELLIPTA 100-25 MCG/ACT AEROSOL POWDER Inhale 1 puff daily. BUPROPION XL (WELLBUTRIN XL) 300 MG 24 HR TABLET Take 300 mg by mouth daily. CALCIUM + VITAMIN D3 600-10 MG-MCG TABLET Take 1 tablet by mouth daily. 600/400 CHOLECALCIFEROL (VITAMIN D-3) 125 MCG (5000 UT) TABLET Take 2,000 Units by mouth daily. CLONAZEPAM (KLONOPIN) 0.5 MG TABLET Take 0.5 mg by mouth Daily as needed for anxiety. FAMOTIDINE (PEPCID) 20 MG TABLET Take by mouth. FLUOXETINE (PROZAC) 20 MG CAPSULE Take 60 mg by mouth daily. FLUTICASONE (FLONASE) 50 MCG/ACT NASAL SPRAY Administer 2 sprays into each nostril Daily as needed for allergies. INVEGA SUSTENNA 39 MG/0.25ML SUSPENSION PREFILLED SYRINGE Inject 39 mg into the shoulder, thigh, or buttocks every 30 (thirty) days. LAMOTRIGINE (LAMICTAL) 25 MG TABLET Take 50 mg by mouth daily. LISINOPRIL 20 MG TABLET Take 20 mg by mouth daily. LORATADINE 10 MG CAPSULE Take 10 mg by mouth daily. MULTIPLE VITAMIN (HIGH POTENCY MULTIVITAMIN) TABLET Take 1 tablet by mouth daily. NYSTATIN (MYCOSTATIN) 341621 UNIT/GM POWDER Apply 1 Application topically 2 times daily. Under breasts OMEPRAZOLE 20 MG TABLET DELAYED-RELEASE ONDANSETRON (ZOFRAN) 4 MG TABLET Take 1 tablet (4 mg) by mouth in the morning and 1 tablet (4 mg) at noon and 1 tablet (4 mg) in the evening and 1 tablet (4 mg) before bedtime. Do all this for 3 days. ALLERGIES Sulfa antibiotics and Milk [milk (cow)] FAMILY HISTORY Family History Problem Relation Name Age of Onset Cancer Mother No Known Problems Father SOCIAL HISTORY Social History Socioeconomic History Marital status: Tobacco Use Smoking status: Never Smokeless tobacco: Never Vaping Use Vaping Use: Never used Substance and Sexual Activity Alcohol use: Never Drug use: Never Social Determinants of Health Transportation Needs: No Transportation Needs (03/03/2023) PRAPARE - Transportation Lack of Transportation (Medical): No Lack of Transportation (Non-Medical): No Intimate Partner Violence: Not At Risk (03/02/2023) Humiliation, Afraid, Rape, and Kick questionnaire Fear of Current or Ex-Partner: No Emotionally Abused: No Physically Abused: No Sexually Abused: No Housing Stability: High Risk (03/03/2023) Housing Stability Vital Sign Unable to Pay for Housing in the Last Year: No Number of Places Lived in the Last Year: 1 Unstable Housing in the Last Year: Yes PHYSICAL EXAM ED Triage Vitals [12/17/23 1255] Temp Heart Rate Resp BP 36.9 C (98.5 F) 73 18 138/86 SpO2 Temp Source Heart Rate Source Patient Position 98 % Oral Monitor Lying BP Location FiO2 (%) Right arm -- Physical Exam Vitals and nursing note reviewed. Constitutional: General: She is not in acute distress. Appearance: She is well-developed. HENT: Head: Normocephalic and atraumatic. Eyes: Conjunctiva/sclera: Conjunctivae normal. Cardiovascular: Rate and Rhythm: Normal rate and regular rhythm. Heart sounds: No murmur heard. Pulmonary: Effort: Pulmonary effort is normal. No respiratory distress. Breath sounds: Normal breath sounds. Abdominal: Palpations: Abdomen is soft. Tenderness: There is no abdominal tenderness. Genitourinary: Comments: There does appear to be some external hemorrhoids noted, no significant bleeding identified. Musculoskeletal: General: No swelling. Cervical back: Neck supple. Skin: General: Skin is warm and dry. Capillary Refill: Capillary refill takes less than 2 seconds. Neurological: Mental Status: She is alert. Psychiatric: Mood and Affect: Mood normal. DIAGNOSTIC RESULTS RADIOLOGY (Per Emergency Physician): Interpretation per the Radiologist below, if available at the time of this note: CT abdomen pelvis wo IV contrast (Results Pending) LABS: Labs Reviewed CBC WITH AUTO DIFFERENTIAL - Abnormal Result Value Auto WBC 8.0 RBC 4.78 Hemoglobin 14.0 Hematocrit 42.8 MCV 89.5 MCH 29.3 MCHC 32.7 RDW 13.5 Platelets 180 MPV 9.2 nRBC 0.0 Neutrophils Relative 81.9 Lymphocytes Relative 9.9 (*) Monocytes Relative 7.4 Eosinophils Relative 0.5 Basophils Relative 0.2 Immature Grans % 0.1 Neutrophils Absolute 6.6 Lymphocytes Absolute 0.8 (*) Monocytes Absolute 0.6 Eosinophils Absolute 0.0 Basophils Absolute 0.0 Immature Grans Absolute 0.0 COMPREHENSIVE METABOLIC PANEL - Abnormal SODIUM 136 POTASSIUM 4.3 CHLORIDE 107 CARBON DIOXIDE 22 ANION GAP 7 UREA NITROGEN 16 CREATININE 0.86 GLUCOSE 101 (*) CALCIUM 9.5 AST (SGOT) 26 ALT 22 ALKALINE PHOSPHATASE 97 ALBUMIN 4.0 BILIRUBIN, TOTAL 0.7 TOTAL PROTEIN 6.9 eGFR 71.4 COMPLETE URINALYSIS - Abnormal Color, Urine Yellow Clarity, Urine Turbid (*) pH, Urine 5.0 Leukocytes, Urine 250 (*) Nitrite, Urine Negative Protein, Urine 10 (*) Glucose, Urine Normal Bilirubin, Urine Negative Ketones, Urine Negative Urobilinogen, Urine Normal Blood, Urine >1.0 (*) RBC, Urine 3-5 (*) WBC, Urine 6-10 (*) Squamous Epithelial, Urine 0-2 Bacteria, Urine Moderate (*) Mucus, Urine Few Hyaline Casts, Urine 0-2 (*) WBC Clumps, Urine Rare (*) SPECIFIC GRAVITY OF URINE (NUMERIC) 1.016 LIPASE - Normal LIPASE 66 COMPLETE URINALYSIS WITH REFLEX TO CULTURE Narrative: The following orders were created for panel order Urinalysis Complete with reflex to Culture. Procedure Abnormality Status --------- ------ Complete Urinalysis[[id number]] Abnormal Final result Please view results for these tests on the individual orders. BLOOD TYPE AND SCREEN GEL ABO Grouping AB Antibody Screen NEG Rh Type POS All other labs were within normal range or not returned as of this dictation. EMERGENCY DEPARTMENT COURSE and DIFFERENTIAL DIAGNOSIS/MDM: Vitals: Vitals: 12/17/23 1255 12/17/23 1257 BP: 138/86 BP Location: Right arm Patient Position: Lying Pulse: 73 Resp: 18 Temp: 36.9 C (98.5 F) TempSrc: Oral SpO2: 98% Weight: 72.6 kg (160 lb) Height: 1.524 m (5') Medications - No data to display The patient was seen here yesterday, lab work was relatively unremarkable. At this time the patient did have repeat lab work. CMP is unremarkable, lipase is normal, CBC is normal, type and screen AB+. UA did appear to be positive however when discussing with the patient she states she does not have any dysuria. I do not believe the patient has underlying urinary tract infection. The patient at this time did have a rectal exam does have some external hemorrhoids I do not see any overt uncontrolled bleeding. The patient's hemoglobin is normal and stable vital signs are otherwise unremarkable. I do believe this may be related to some underlying constipation. Could also be some underlying diverticulosis. Patient's disposition is pending. SCREENINGS PROCEDURES: Unless otherwise noted below, none Procedures CRITICAL CARE TIME FINAL IMPRESSION No diagnosis found. DISPOSITION Transfer To [facility] 12/17/2023 03:19:15 PM PATIENT REFERRED TO: No follow-up provider specified. DISCHARGE MEDICATIONS: New Prescriptions No medications on file (Comment: Please note this report has been produced using speech recognition software and may contain errors related to that system including errors in grammar, punctuation, and spelling, as well as words and phrases that may be inappropriate. If there are any questions or concerns please feel free to contact the dictating provider for clarification.) Albert Lara DO (electronically signed) Emergency Medicine Provider Albert Lara DO 12/17/23 1549 Patient to the ED today from the [facility] via EMS for c/o rectal bleeding that started last night following her return to the facility from the [facility] ED. Patient reports that the abdominal pain and nausea has been consistent since her discharge. Dark red blood with clots is reported by the patient. Patient reports 4/10 abdominal pain and cramping. Patient reports no history of rectal bleeding or hemorrhoids. Patient does not take and blood thinning medications. Patient has documented DNR-CCA, but verbalizes "not wanting to follow that and do everything". Patient shows no s/s of distress. documented in this encounter [facility] 12-17-2023 Hospital Discharge instructions Rowena Cano PA-C - 12/17/2023 5:08 PM EDT Follow-up closely with cardiothoracic surgery. They will plan to see you in their surveillance program to monitor your aortic aneurysm. Return to the ED for any ripping or tearing chest pain. Take antibiotics as prescribed for diverticulitis and follow-up closely with your PCP as a follow-up colonoscopy may be needed after symptoms have resolved. The following attachments cannot be sent through Care Everywhere.Diverticulitis ([place])Diverticulitis Discharge Instructions ([place])documented in this encounter [facility] 12-17-2023 Emergency department Note Patient aware a urine specimen is needed. Educated to advise staff when urge to urinate to transfer to restroom. Call light left in patient reach. Ela Hensley RN 12/17/[address] [facility] 12-17-2023 Emergency department Triage note Patient to the ED today from the [facility] in [place] via EMS for c/o rectal bleeding that started last night following her return to the facility from the [facility] ED. Patient reports that the abdominal pain and nausea has been consistent since her discharge. Dark red blood with clots is reported by the patient. Patient reports 4/10 abdominal pain and cramping. Patient reports no history of rectal bleeding or hemorrhoids. Patient does not take and blood thinning medications. Patient has documented DNR-CCA, but verbalizes "not wanting to follow that and do everything". Patient shows no s/s of distress. [facility] 12-17-2023 Physician Emergency department Note EMERGENCY DEPARTMENT ENCOUNTER Pt Name: Pily Barnes Birthdate 1950 Date of evaluation: 12/17/2023 ED Provider: Albert Lara DO CHIEF COMPLAINT Chief Complaint Patient presents with Rectal Bleeding Abdominal Cramping HISTORY OF PRESENT ILLNESS (Location/Symptom, Timing/Onset, Context/Setting, Quality, Duration, Modifying Factors, Severity) Note limiting factors. I wore appropriate PPE for the entirety of this encounter. HPI Pily Barnes is a 73 y.o. who presents to the emergency department 1 episode of rectal bleeding. The patient states she was seen here in the emergency department yesterday discharged home, states she had an episode of rectal bleeding and came to the emergency department. States that she does have some subtle superpubic abdominal pain. She states that she does not have any active bleeding currently. Nursing Notes were reviewed. Limitations to history: Outside historians: REVIEW OF SYSTEMS Review of Systems Pertinent positives and negatives as per HPI PAST MEDICAL HISTORY Past Medical History: Diagnosis Date Anxiety Aspirin long-term use history Asthma Bipolar 1 disorder (HCC) Chronic kidney disease Depression Difficulty walking High blood pressure Lack of coordination Mitral valve insufficiency Muscle weakness Presence of intraocular lens Repeated falls Rhabdomyolysis Sleep apnea Suicidal ideations Traumatic subarachnoid hemorrhage without loss of consciousness (HCC) SURGICAL HISTORY Past Surgical History: Procedure Laterality Date CERVICAL SPINE SURGERY 03/02/2023 C3-C6 ANTERIOR CERVICAL DECOMPRESSION, FUSION HYSTERECTOMY THYROID SURGERY N/A half CURRENT MEDICATIONS Previous Medications ALBUTEROL 108 (90 BASE) MCG/ACT INHALER INHALE TWO PUFFS BY MOUTH INTO THE LUNGS instructed EVERY 4 HOURS NEEDED FOR WHEEZING OR FOR SHORTNESS OF BREATH AMLODIPINE (NORVASC) 2.5 MG TABLET Take 2.5 mg by mouth daily. ARIPIPRAZOLE (ABILIFY) 5 MG TABLET Take 5 mg by mouth daily. BREO ELLIPTA 100-25 MCG/ACT AEROSOL POWDER Inhale 1 puff daily. BUPROPION XL (WELLBUTRIN XL) 300 MG 24 HR TABLET Take 300 mg by mouth daily. CALCIUM + VITAMIN D3 600-10 MG-MCG TABLET Take 1 tablet by mouth daily. 600/400 CHOLECALCIFEROL (VITAMIN D-3) 125 MCG (5000 UT) TABLET Take 2,000 Units by mouth daily. CLONAZEPAM (KLONOPIN) 0.5 MG TABLET Take 0.5 mg by mouth Daily as needed for anxiety. FAMOTIDINE (PEPCID) 20 MG TABLET Take by mouth. FLUOXETINE (PROZAC) 20 MG CAPSULE Take 60 mg by mouth daily. FLUTICASONE (FLONASE) 50 MCG/ACT NASAL SPRAY Administer 2 sprays into each nostril Daily as needed for allergies. INVEGA SUSTENNA 39 MG/0.25ML SUSPENSION PREFILLED SYRINGE Inject 39 mg into the shoulder, thigh, or buttocks every 30 (thirty) days. LAMOTRIGINE (LAMICTAL) 25 MG TABLET Take 50 mg by mouth daily. LISINOPRIL 20 MG TABLET Take 20 mg by mouth daily. LORATADINE 10 MG CAPSULE Take 10 mg by mouth daily. MULTIPLE VITAMIN (HIGH POTENCY MULTIVITAMIN) TABLET Take 1 tablet by mouth daily. NYSTATIN (MYCOSTATIN) 146668 UNIT/GM POWDER Apply 1 Application topically 2 times daily. Under breasts OMEPRAZOLE 20 MG TABLET DELAYED-RELEASE ONDANSETRON (ZOFRAN) 4 MG TABLET Take 1 tablet (4 mg) by mouth in the morning and 1 tablet (4 mg) at noon and 1 tablet (4 mg) in the evening and 1 tablet (4 mg) before bedtime. Do all this for 3 days. ALLERGIES Sulfa antibiotics and Milk [milk (cow)] FAMILY HISTORY Family History Problem Relation Name Age of Onset Cancer Mother No Known Problems Father SOCIAL HISTORY Social History Socioeconomic History Marital status: Tobacco Use Smoking status: Never Smokeless tobacco: Never Vaping Use Vaping Use: Never used Substance and Sexual Activity Alcohol use: Never Drug use: Never Social Determinants of Health Transportation Needs: No Transportation Needs (03/03/2023) PRAPARE - Transportation Lack of Transportation (Medical): No Lack of Transportation (Non-Medical): No Intimate Partner Violence: Not At Risk (03/02/2023) Humiliation, Afraid, Rape, and Kick questionnaire Fear of Current or Ex-Partner: No Emotionally Abused: No Physically Abused: No Sexually Abused: No Housing Stability: High Risk (03/03/2023) Housing Stability Vital Sign Unable to Pay for Housing in the Last Year: No Number of Places Lived in the Last Year: 1 Unstable Housing in the Last Year: Yes PHYSICAL EXAM ED Triage Vitals [12/17/23 1255] Temp Heart Rate Resp BP 36.9 C (98.5 F) 73 18 138/86 SpO2 Temp Source Heart Rate Source Patient Position 98 % Oral Monitor Lying BP Location FiO2 (%) Right arm -- Physical Exam Vitals and nursing note reviewed. Constitutional: General: She is not in acute distress. Appearance: She is well-developed. HENT: Head: Normocephalic and atraumatic. Eyes: Conjunctiva/sclera: Conjunctivae normal. Cardiovascular: Rate and Rhythm: Normal rate and regular rhythm. Heart sounds: No murmur heard. Pulmonary: Effort: Pulmonary effort is normal. No respiratory distress. Breath sounds: Normal breath sounds. Abdominal: Palpations: Abdomen is soft. Tenderness: There is no abdominal tenderness. Genitourinary: Comments: There does appear to be some external hemorrhoids noted, no significant bleeding identified. Musculoskeletal: General: No swelling. Cervical back: Neck supple. Skin: General: Skin is warm and dry. Capillary Refill: Capillary refill takes less than 2 seconds. Neurological: Mental Status: She is alert. Psychiatric: Mood and Affect: Mood normal. DIAGNOSTIC RESULTS RADIOLOGY (Per Emergency Physician): Interpretation per the Radiologist below, if available at the time of this note: CT abdomen pelvis wo IV contrast (Results Pending) LABS: Labs Reviewed CBC WITH AUTO DIFFERENTIAL - Abnormal Result Value Auto WBC 8.0 RBC 4.78 Hemoglobin 14.0 Hematocrit 42.8 MCV 89.5 MCH 29.3 MCHC 32.7 RDW 13.5 Platelets 180 MPV 9.2 nRBC 0.0 Neutrophils Relative 81.9 Lymphocytes Relative 9.9 (*) Monocytes Relative 7.4 Eosinophils Relative 0.5 Basophils Relative 0.2 Immature Grans % 0.1 Neutrophils Absolute 6.6 Lymphocytes Absolute 0.8 (*) Monocytes Absolute 0.6 Eosinophils Absolute 0.0 Basophils Absolute 0.0 Immature Grans Absolute 0.0 COMPREHENSIVE METABOLIC PANEL - Abnormal SODIUM 136 POTASSIUM 4.3 CHLORIDE 107 CARBON DIOXIDE 22 ANION GAP 7 UREA NITROGEN 16 CREATININE 0.86 GLUCOSE 101 (*) CALCIUM 9.5 AST (SGOT) 26 ALT 22 ALKALINE PHOSPHATASE 97 ALBUMIN 4.0 BILIRUBIN, TOTAL 0.7 TOTAL PROTEIN 6.9 eGFR 71.4 COMPLETE URINALYSIS - Abnormal Color, Urine Yellow Clarity, Urine Turbid (*) pH, Urine 5.0 Leukocytes, Urine 250 (*) Nitrite, Urine Negative Protein, Urine 10 (*) Glucose, Urine Normal Bilirubin, Urine Negative Ketones, Urine Negative Urobilinogen, Urine Normal Blood, Urine >1.0 (*) RBC, Urine 3-5 (*) WBC, Urine 6-10 (*) Squamous Epithelial, Urine 0-2 Bacteria, Urine Moderate (*) Mucus, Urine Few Hyaline Casts, Urine 0-2 (*) WBC Clumps, Urine Rare (*) SPECIFIC GRAVITY OF URINE (NUMERIC) 1.016 LIPASE - Normal LIPASE 66 COMPLETE URINALYSIS WITH REFLEX TO CULTURE Narrative: The following orders were created for panel order Urinalysis Complete with reflex to Culture. Procedure Abnormality Status --------- ------ Complete Urinalysis[[id number]] Abnormal Final result Please view results for these tests on the individual orders. BLOOD TYPE AND SCREEN GEL ABO Grouping AB Antibody Screen NEG Rh Type POS All other labs were within normal range or not returned as of this dictation. EMERGENCY DEPARTMENT COURSE and DIFFERENTIAL DIAGNOSIS/MDM: Vitals: Vitals: 12/17/23 1255 12/17/23 1257 BP: 138/86 BP Location: Right arm Patient Position: Lying Pulse: 73 Resp: 18 Temp: 36.9 C (98.5 F) TempSrc: Oral SpO2: 98% Weight: 72.6 kg (160 lb) Height: 1.524 m (5') Medications - No data to display The patient was seen here yesterday, lab work was relatively unremarkable. At this time the patient did have repeat lab work. CMP is unremarkable, lipase is normal, CBC is normal, type and screen AB+. UA did appear to be positive however when discussing with the patient she states she does not have any dysuria. I do not believe the patient has underlying urinary tract infection. The patient at this time did have a rectal exam does have some external hemorrhoids I do not see any overt uncontrolled bleeding. The patient's hemoglobin is normal and stable vital signs are otherwise unremarkable. I do believe this may be related to some underlying constipation. Could also be some underlying diverticulosis. Patient's disposition is pending. SCREENINGS PROCEDURES: Unless otherwise noted below, none Procedures CRITICAL CARE TIME FINAL IMPRESSION No diagnosis found. DISPOSITION Transfer To [facility] 12/17/2023 03:19:15 PM PATIENT REFERRED TO: No follow-up provider specified. DISCHARGE MEDICATIONS: New Prescriptions No medications on file (Comment: Please note this report has been produced using speech recognition software and may contain errors related to that system including errors in grammar, punctuation, and spelling, as well as words and phrases that may be inappropriate. If there are any questions or concerns please feel free to contact the dictating provider for clarification.) Albert Lara DO (electronically signed) Emergency Medicine Provider Albert Lara DO 12/17/[address] [facility] Work Phone: 12-16-2023 Emergency department Note Patient transferred to EMS by EMS personnel. Patient maintained steady gait with assistance of medic. Transport exit at this time. Ela Hensley RN 12/16/232236 [facility] 12-16-2023 Emergency department Note Patient transferred to EMS by EMS personnel. Patient maintained steady gait with assistance of medic. Transport exit at this time. Ela Hensley RN 12/16/232236 Report given to [facility] at this time by this RN. Ela Hensley RN 12/16/232232 Pt updated on new ETA, ETA 30min. Pt sitting in WC, no apparent distress. WC locked, curtain open, call light in pt lap, pt watching TV Bobbi Dunham RN 12/16/232132 Pt taken to restroom via WC. Pt assisted in putting a new brief on. Once back in room, pt assisted in getting dressed. Pt sitting in WC, wheel chair locked, call light in reach, curtain open. Dc paperwork reviewed. No further questions. Pt awaiting transfer back to assisted living at [facility] Bobbi Dunham RN 12/16/232052 Pt cleared for DC per provider Bobbi Dunham RN 12/16/231935 Answered pt call light, pt attempting to get out of bed because "I'm discharged and I am going home". Pt told this RN a few minutes ago that she only uses a walker with assistance and mainly uses a WC. When I asked the pt why she was trying to get up when she doesn't walk, pt states "I dont know". Pt updated that once transport is set up, this RN will review DC papers with her and assist her in getting dressed. Pt verbalized understanding. Bed low and locked, rails up x2, call light in reach Bobbi Dunham RN 12/16/231937 Pt reports she is feeling better. Not nauseated. Pt ate dinner and has kept in down Bobbi Dunham RN 12/16/231920 Ordered patient a dinner tray. Will complete PO challenge with it. Eloisa Prasad RN 12/16/23 182 Pt from nursing facility presents with EMS with abd pain n/v/ diarrhea started today. Pt states also feeling dizzy and light headed. Pain in abd is constant Tere Pritchard RN 12/16/23 1454 EMERGENCY DEPARTMENT ENCOUNTER Pt Name: Pily Barnes Birthdate 1950 Date of evaluation: 12/16/2023 ED Provider: TIFFANIE Parry CNP EDcare was supervised by Dr. Artur Boone who independently examined and evaluated the patient. Please see their attestation note for further details. CHIEF COMPLAINT No chief complaint on file. HISTORY OF PRESENT ILLNESS (Location/Symptom, Timing/Onset, Context/Setting, Quality, Duration, Modifying Factors, Severity) Note limiting factors. I wore appropriate PPE for the entirety of this encounter. 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 female with past medical history for bipolar disorder, rhabdomyolysis and anxiety presents to the emergency department with complaints of nausea, vomiting, diarrhea and dizziness. Patient presents to the ED from her assisted living facility. She states that symptoms started about 2 hours before ED presentation. It was also noted at her assisted living facility that she was hypotensive with a blood pressure of 89/56. She complains of associated symptoms of dysuria. She denies chest pain, shortness of breath, abdominal pain, fever or chills. Nursing Notes were reviewed. Limitations to history: None Outside historians: None REVIEW OF SYSTEMS Review of Systems Constitutional: Negative for chills and fever. Respiratory: Negative for shortness of breath. Cardiovascular: Negative for chest pain. Gastrointestinal: Positive for diarrhea, nausea and vomiting. Negative for abdominal pain. Genitourinary: Positive for dysuria. All other systems reviewed and are negative. Pertinent positives and negatives as per HPI. PAST MEDICAL HISTORY Past Medical History: Diagnosis Date Anxiety Aspirin long-term use history Asthma Bipolar 1 disorder ([facility]) Chronic kidney disease Depression Difficulty walking High blood pressure Lack of coordination Mitral valve insufficiency Muscle weakness Presence of intraocular lens Repeated falls Rhabdomyolysis Sleep apnea Suicidal ideations Traumatic subarachnoid hemorrhage without loss of consciousness ([facility]) SURGICAL HISTORY Past Surgical History: Procedure Laterality Date CERVICAL SPINE SURGERY 03/02/2023 C3-C6 ANTERIOR CERVICAL DECOMPRESSION, FUSION HYSTERECTOMY THYROID SURGERY N/A half CURRENT MEDICATIONS Previous Medications ALBUTEROL 108 (90 BASE) MCG/ACT INHALER INHALE TWO PUFFS BY MOUTH INTO THE LUNGS instructed EVERY 4 HOURS NEEDED FOR WHEEZING OR FOR SHORTNESS OF BREATH AMLODIPINE (NORVASC) 2.5 MG TABLET Take 2.5 mg by mouth daily. ARIPIPRAZOLE (ABILIFY) 5 MG TABLET Take 5 mg by mouth daily. BREO ELLIPTA 100-25 MCG/ACT AEROSOL POWDER Inhale 1 puff daily. BUPROPION XL (WELLBUTRIN XL) 300 MG 24 HR TABLET Take 300 mg by mouth daily. CALCIUM + VITAMIN D3 600-10 MG-MCG TABLET Take 1 tablet by mouth daily. 600/400 CHOLECALCIFEROL (VITAMIN D-3) 125 MCG (5000 UT) TABLET Take 2,000 Units by mouth daily. CLONAZEPAM (KLONOPIN) 0.5 MG TABLET Take 0.5 mg by mouth Daily as needed for anxiety. FAMOTIDINE (PEPCID) 20 MG TABLET Take by mouth. FLUOXETINE (PROZAC) 20 MG CAPSULE Take 60 mg by mouth daily. FLUTICASONE (FLONASE) 50 MCG/ACT NASAL SPRAY Administer 2 sprays into each nostril Daily as needed for allergies. INVEGA SUSTENNA 39 MG/0.25ML SUSPENSION PREFILLED SYRINGE Inject 39 mg into the shoulder, thigh, or buttocks every 30 (thirty) days. LAMOTRIGINE (LAMICTAL) 25 MG TABLET Take 50 mg by mouth daily. LISINOPRIL 20 MG TABLET Take 20 mg by mouth daily. LORATADINE 10 MG CAPSULE Take 10 mg by mouth daily. MULTIPLE VITAMIN (HIGH POTENCY MULTIVITAMIN) TABLET Take 1 tablet by mouth daily. NYSTATIN (MYCOSTATIN) 296674 UNIT/GM POWDER Apply 1 Application topically 2 times daily. Under breasts OMEPRAZOLE 20 MG TABLET DELAYED-RELEASE ALLERGIES Sulfa antibiotics and Milk [milk (cow)] FAMILY HISTORY Family History Problem Relation Name Age of Onset Cancer Mother No Known Problems Father SOCIAL HISTORY Social History Socioeconomic History Marital status: Unknown Tobacco Use Smoking status: Never Smokeless tobacco: Never Vaping Use Vaping Use: Never used Substance and Sexual Activity Alcohol use: Never Drug use: Never Social Determinants of Health Transportation Needs: No Transportation Needs (03/03/2023) PRAPARE - Transportation Lack of Transportation (Medical): No Lack of Transportation (Non-Medical): No Intimate Partner Violence: Not At Risk (03/02/2023) Humiliation, Afraid, Rape, and Kick questionnaire Fear of Current or Ex-Partner: No Emotionally Abused: No Physically Abused: No Sexually Abused: No Housing Stability: High Risk (03/03/2023) Housing Stability Vital Sign Unable to Pay for Housing in the Last Year: No Number of Places Lived in the Last Year: 1 Unstable Housing in the Last Year: Yes SCREENINGS PHYSICAL EXAM ED Triage Vitals [12/16/23 1452] Temp Heart Rate Resp BP 36.5 C (97.7 F) 60 18 117/67 SpO2 Temp Source Heart Rate Source Patient Position 94 % Oral Monitor -- BP Location FiO2 (%) -- -- Physical Exam Vitals and nursing note reviewed. Constitutional: General: She is not in acute distress. Cardiovascular: Rate and Rhythm: Normal rate and regular rhythm. Heart sounds: No murmur heard. No friction rub. No gallop. Pulmonary: Effort: Pulmonary effort is normal. No tachypnea or accessory muscle usage. Breath sounds: No wheezing or rales. Abdominal: General: Bowel sounds are normal. Palpations: Abdomen is soft. Tenderness: There is no abdominal tenderness. Neurological: Mental Status: She is alert and oriented to person, place, and time. DIAGNOSTIC RESULTS RADIOLOGY (Per Emergency Physician): Interpretation per the Radiologist below, if available at the time of this note: No orders to display LABS: Labs Reviewed COMPREHENSIVE METABOLIC PANEL - Abnormal Result Value SODIUM 136 POTASSIUM 4.2 CHLORIDE 108 (*) CARBON DIOXIDE 21 (*) ANION GAP 8 UREA NITROGEN 21 (*) CREATININE 1.14 (*) GLUCOSE 147 (*) CALCIUM 9.2 AST (SGOT) 29 ALT 25 ALKALINE PHOSPHATASE 92 ALBUMIN 4.1 BILIRUBIN, TOTAL 0.6 TOTAL PROTEIN 7.0 eGFR 50.9 (*) COMPLETE URINALYSIS - Abnormal Color, Urine Yellow Clarity, Urine Clear pH, Urine 5.5 Leukocytes, Urine Negative Nitrite, Urine Negative Protein, Urine 30 (*) Glucose, Urine Normal Bilirubin, Urine Negative Ketones, Urine Negative Urobilinogen, Urine Normal Blood, Urine Negative RBC, Urine 0-2 WBC, Urine 0-2 Squamous Epithelial, Urine 0-2 Bacteria, Urine Few (*) Mucus, Urine Few Hyaline Casts, Urine 0-2 (*) SPECIFIC GRAVITY OF URINE (NUMERIC) 1.014 SARS-COV-2, FLU A/B, AND RSV COMBO - Normal SARS-CoV-2 Not Detected Respiratory Syncytial Virus Not Detected Influenza A Not Detected Influenza B Not Detected Narrative: Methodology: real-time, RT-PCR The SARS-CoV-2, Flu A/B, and RSV Combo assay is intended for in vitro diagnostic use under the FDA Emergency Use Authorization (EUA). This test has not been FDA cleared or approved. In compliance with this authorization, please visit www.fda.gov/media/322997/download or www.fda.gov/media/025873/download to access the applicable information sheets. LIPASE - Normal LIPASE 107 MAGNESIUM - Normal MAGNESIUM 2.2 CBC (HEMOGRAM) - Normal Auto WBC 7.5 RBC 4.83 Hemoglobin 14.1 Hematocrit 43.3 MCV 89.6 MCH 29.2 MCHC 32.6 RDW 13.4 Platelets 195 MPV 9.2 LACTIC ACID WITH REFLEX - Normal LACTIC ACID 1.3 COMPLETE URINALYSIS WITH REFLEX TO CULTURE Narrative: The following orders were created for panel order Urinalysis complete with reflex to Culture. Procedure Abnormality Status --------- ------ Complete Urinalysis[[id number]] Abnormal Final result Please view results for these tests on the individual orders. All other labs were within normal range or not returned as of this dictation. EMERGENCY DEPARTMENT COURSE and DIFFERENTIAL DIAGNOSIS/MDM: Vitals: Vitals: 12/16/23 1452 12/16/23 1715 04/13/24 1920 BP: 117/67 126/83 139/83 Patient Position: Lying Pulse: 60 66 77 Resp: 18 18 16 Temp: 36.5 C (97.7 F) TempSrc: Oral SpO2: 94% 94% 97% Weight: 72.6 kg (160 lb) Height: 1.524 m (5') Medications sodium chloride 0.9 % bolus 1,000 mL (0 mL IntraVENous Stopped 12/16/23 1621) ondansetron (Zofran) injection 4 mg (4 mg IntraVENous Given 12/16/23 1522) 73-year-old female presented to the ED with complaints of nausea, vomiting, diarrhea and dizziness. On exam, patient is alert and oriented x 3. Normal vital signs noted during exam. Patient is afebrile. Normal heart and lung sounds. Abdomen is soft and nontender. Nursing notes indicated that the patient presented with abdominal pain. She is denying abdominal pain during my exam. Differentials include but are not limited to UTI, gastroenteritis, COVID, flu, RSV, dehydration, electrolyte imbalance. Workup included CBC, CMP, lipase, magnesium level, lactic acid, COVID test, flu test, RSV test. Plan to medicate with fluid bolus and Zofran. Workup results revealed the following: Negative test for COVID, flu and RSV. Urinalysis is negative for UTI. CBC is negative for leukocytosis. Normal lactate at 1.3. Normal lipase at 107. Normal magnesium level at 2.2. CMP revealed normal sodium and potassium levels. DEENA noted with BUN/creatinine 21/1.14 with GFR 50.9. Fluid bolus was given. Patient was otherwise hemodynamically stable during her ED stay. There was no evidence of hypotension in the ED. Nausea resolved after treatment with Zofran. She was able to tolerate oral intake by eating dinner. Patient was discharged home with close follow-up with her PCP. She was prescribed Zofran. MDM elements: Patient is in agreement with this plan. PROCEDURES: Unless otherwise noted below, none Procedures CRITICAL CARE TIME None FINAL IMPRESSION 1. Nausea vomiting and diarrhea 2. Acute kidney injury (HCC) DISPOSITION Discharge 12/16/2023 06:20:33 PM PATIENT REFERRED TO: Kenia Mckenzie MD [address] [facility] [id number] Schedule an appointment as soon as possible for a visit in 2 days DISCHARGE MEDICATIONS: New Prescriptions ONDANSETRON (ZOFRAN) 4 MG TABLET Take 1 tablet (4 mg) by mouth in the morning and 1 tablet (4 mg) at noon and 1 tablet (4 mg) in the evening and 1 tablet (4 mg) before bedtime. Do all this for 3 days. (Comment: Please note this report has been produced using speech recognition software and may contain errors related to that system including errors in grammar, punctuation, and spelling, as well as words and phrases that may be inappropriate. If there are any questions or concerns please feel free to contact the dictating provider for clarification.) TIFFANIE Parry CNP (electronically signed) Emergency Medicine Provider TIFFANIE Parry CNP 12/16/232149 Emergency Department Encounter [facility] ED Patient: Pily Barnes : 1950 Date of Evaluation: 12/16/2023 ED Supervising Physician: Artur Boone MD I independently examined and evaluated Pily Barnes. This will serve as my Supervisory note as the psychiatric clinician of record and shared attestation. I did perform a substantive portion of the visit including all aspects of the Medical Decision Making. I wore appropriate PPE for the entirety of this encounter. In brief, Pily Barnes is a 73 y.o. female that presents to the emergency department with concern for nausea vomiting diarrhea started earlier today. She was endorsing lower abdominal pain for several hours earlier although has since resolved. Receive Zofran/nausea medication from her assisted living prior to arrival. She states she was feeling well prior to this. Denies any difficulties with urination no chest pain or shortness of breath. Was feeling slight lightheaded and reportedly had lower blood pressures although was using a wrist cuff at that time. She has completely normal vital signs at this point in time Focused exam: Patient has no abdominal distention or significant tenderness on examination. Has moist mucous membranes regular rate and rhythm on cardiac auscultation Brief ED course/MDM: EMERGENCY DEPARTMENT COURSE and DIFFERENTIAL DIAGNOSIS/MDM: Vitals: Vitals: 12/16/23 1452 BP: 117/67 Pulse: 60 Resp: 18 Temp: 36.5 C (97.7 F) TempSrc: Oral SpO2: 94% The patient presented with a chief complaint of with concerns for abdominal pain nausea and vomiting along with diarrhea.. The differential diagnosis associated with this patient's presentation includes gastroenteritis, pancreatitis, electro derangements, anemia. Our workup consisted of ordering/reviewing will obtain blood work as her abdominal examination is very reassuring does not have any significant tenderness at this point time and states that her pain is completely gone. Likely that she had a viral gastroenteritis based off duration of symptoms. Patient's blood work does show mild elevated creatinine from her baseline 0.86. Was given a liter of fluid although no lactic acidosis normal white blood cell count and urinalysis without any evidence of infection. Patient is able to tolerate p.o. intake without any residual nausea or vomiting and feels well. Do believe it is reasonable for her to be discharged with nausea medication return precautions given Diagnoses as of 12/16/231943 Acute kidney injury (HCC) Nausea vomiting and diarrhea Diagnostic tests considered but not performed: External records reviewed: Diagnostics interpreted by me: Discussions with other clinicians: Chronic conditions impacting care: Social determinants of health affecting care: ED Medications managed: Medications sodium chloride 0.9 % bolus 1,000 mL (1,000 mL IntraVENous New Bag 12/16/23 1521) ondansetron (Zofran) injection 4 mg (4 mg IntraVENous Given 12/16/23 1522) Prescription drugs considered: Disposition and plan: DEENA, nausea vomiting diarrhea, discharge All diagnostic, treatment, and disposition decisions were made by myself in conjunction with the Resident/JOYCE. I also supervised javier portions of any procedures performed by the Resident/JOYCE. For all further details of the patient's emergency department visit, please see their documentation. (Comment: Please note this report has been produced using speech recognition software and may contain errors related to that system including errors in grammar, punctuation, and spelling, as well as words and phrases that may be inappropriate. If there are any questions or concerns please feel free to contact the dictating provider for clarification.) Artur Boone MD [facility] Artur Boone MD 12/16/231944 documented in this encounter [facility] 12-16-2023 Emergency department Note Report given to [facility] at this time by this RN. Ela Hensley RN 12/16/232232 [facility] 12-16-2023 Emergency department Note Pt updated on new ETA, ETA 30min. Pt sitting in WC, no apparent distress. WC locked, curtain open, call light in pt lap, pt watching TV Bobbi Dunham RN 12/16/232132 [facility] 12-16-2023 Emergency department Note Pt taken to restroom via WC. Pt assisted in putting a new brief on. Once back in room, pt assisted in getting dressed. Pt sitting in WC, wheel chair locked, call light in reach, curtain open. Dc paperwork reviewed. No further questions. Pt awaiting transfer back to assisted living at [facility] Bobbi Dunham RN 12/16/232052 [facility] 12-16-2023 Emergency department Note Pt cleared for DC per provider Bobbi Dunham RN 12/16/231935 [facility] 12-16-2023 Emergency department Note Answered pt call light, pt attempting to get out of bed because "I'm discharged and I am going home". Pt told this RN a few minutes ago that she only uses a walker with assistance and mainly uses a WC. When I asked the pt why she was trying to get up when she doesn't walk, pt states "I dont know". Pt updated that once transport is set up, this RN will review DC papers with her and assist her in getting dressed. Pt verbalized understanding. Bed low and locked, rails up x2, call light in reach Bobbi Dunham RN 12/16/[address] [facility] 12-16-2023 Emergency department Note Pt reports she is feeling better. Not nauseated. Pt ate dinner and has kept in down Bobbi Dunham RN 12/16/231920 [facility] 12-16-2023 Hospital Discharge instructions TIFFANIE Parry CNP - 12/16/2023 7:09 PM EDT Please pick your nausea medication from the pharmacy and take as instructed. Please make appointment to follow-up with your PCP in 2 days. The following attachments cannot be sent through Care Everywhere.Acute Kidney Injury ([place])Nausea and Vomiting, Adult ([place])documented in this encounter [facility] 12-16-2023 Emergency department Note Ordered patient a dinner tray. Will complete PO challenge with it. Eloisa Prasad RN 12/16/[address] [facility] 12-16-2023 Emergency department Note Pt from nursing facility presents with EMS with abd pain n/v/ diarrhea started today. Pt states also feeling dizzy and light headed. Pain in abd is constant Tere Pritchard RN 12/16/[address] [facility] 12-16-2023 Physician Emergency department Note EMERGENCY DEPARTMENT ENCOUNTER Pt Name: Pily Barnes Birthdate 1950 Date of evaluation: 12/16/2023 ED Provider: TIFFANIE Parry CNP EDcare was supervised by Dr. Artur Boone who independently examined and evaluated the patient. Please see their attestation note for further details. CHIEF COMPLAINT No chief complaint on file. HISTORY OF PRESENT ILLNESS (Location/Symptom, Timing/Onset, Context/Setting, Quality, Duration, Modifying Factors, Severity) Note limiting factors. I wore appropriate PPE for the entirety of this encounter. History provided by: Patient branch retail executive used: Delmi Pily Barnes is a 73 y.o. female with past medical history for bipolar disorder, rhabdomyolysis and anxiety presents to the emergency department with complaints of nausea, vomiting, diarrhea and dizziness. Patient presents to the ED from her assisted living facility. She states that symptoms started about 2 hours before ED presentation. It was also noted at her assisted living facility that she was hypotensive with a blood pressure of 89/56. She complains of associated symptoms of dysuria. She denies chest pain, shortness of breath, abdominal pain, fever or chills. Nursing Notes were reviewed. Limitations to history: None Outside historians: None REVIEW OF SYSTEMS Review of Systems Constitutional: Negative for chills and fever. Respiratory: Negative for shortness of breath. Cardiovascular: Negative for chest pain. Gastrointestinal: Positive for diarrhea, nausea and vomiting. Negative for abdominal pain. Genitourinary: Positive for dysuria. All other systems reviewed and are negative. Pertinent positives and negatives as per HPI. PAST MEDICAL HISTORY Past Medical History: Diagnosis Date Anxiety Aspirin long-term use history Asthma Bipolar 1 disorder (HCC) Chronic kidney disease Depression Difficulty walking High blood pressure Lack of coordination Mitral valve insufficiency Muscle weakness Presence of intraocular lens Repeated falls Rhabdomyolysis Sleep apnea Suicidal ideations Traumatic subarachnoid hemorrhage without loss of consciousness (HCC) SURGICAL HISTORY Past Surgical History: Procedure Laterality Date CERVICAL SPINE SURGERY 03/02/2023 C3-C6 ANTERIOR CERVICAL DECOMPRESSION, FUSION HYSTERECTOMY THYROID SURGERY N/A half CURRENT MEDICATIONS Previous Medications ALBUTEROL 108 (90 BASE) MCG/ACT INHALER INHALE TWO PUFFS BY MOUTH INTO THE LUNGS instructed EVERY 4 HOURS NEEDED FOR WHEEZING OR FOR SHORTNESS OF BREATH AMLODIPINE (NORVASC) 2.5 MG TABLET Take 2.5 mg by mouth daily. ARIPIPRAZOLE (ABILIFY) 5 MG TABLET Take 5 mg by mouth daily. BREO ELLIPTA 100-25 MCG/ACT AEROSOL POWDER Inhale 1 puff daily. BUPROPION XL (WELLBUTRIN XL) 300 MG 24 HR TABLET Take 300 mg by mouth daily. CALCIUM + VITAMIN D3 600-10 MG-MCG TABLET Take 1 tablet by mouth daily. 600/400 CHOLECALCIFEROL (VITAMIN D-3) 125 MCG (5000 UT) TABLET Take 2,000 Units by mouth daily. CLONAZEPAM (KLONOPIN) 0.5 MG TABLET Take 0.5 mg by mouth Daily as needed for anxiety. FAMOTIDINE (PEPCID) 20 MG TABLET Take by mouth. FLUOXETINE (PROZAC) 20 MG CAPSULE Take 60 mg by mouth daily. FLUTICASONE (FLONASE) 50 MCG/ACT NASAL SPRAY Administer 2 sprays into each nostril Daily as needed for allergies. INVEGA SUSTENNA 39 MG/0.25ML SUSPENSION PREFILLED SYRINGE Inject 39 mg into the shoulder, thigh, or buttocks every 30 (thirty) days. LAMOTRIGINE (LAMICTAL) 25 MG TABLET Take 50 mg by mouth daily. LISINOPRIL 20 MG TABLET Take 20 mg by mouth daily. LORATADINE 10 MG CAPSULE Take 10 mg by mouth daily. MULTIPLE VITAMIN (HIGH POTENCY MULTIVITAMIN) TABLET Take 1 tablet by mouth daily. NYSTATIN (MYCOSTATIN) 849365 UNIT/GM POWDER Apply 1 Application topically 2 times daily. Under breasts OMEPRAZOLE 20 MG TABLET DELAYED-RELEASE ALLERGIES Sulfa antibiotics and Milk [milk (cow)] FAMILY HISTORY Family History Problem Relation Name Age of Onset Cancer Mother No Known Problems Father SOCIAL HISTORY Social History Socioeconomic History Marital status: Unknown Tobacco Use Smoking status: Never Smokeless tobacco: Never Vaping Use Vaping Use: Never used Substance and Sexual Activity Alcohol use: Never Drug use: Never Social Determinants of Health Transportation Needs: No Transportation Needs (03/03/2023) PRAPARE - Transportation Lack of Transportation (Medical): No Lack of Transportation (Non-Medical): No Intimate Partner Violence: Not At Risk (03/02/2023) Humiliation, Afraid, Rape, and Kick questionnaire Fear of Current or Ex-Partner: No Emotionally Abused: No Physically Abused: No Sexually Abused: No Housing Stability: High Risk (03/03/2023) Housing Stability Vital Sign Unable to Pay for Housing in the Last Year: No Number of Places Lived in the Last Year: 1 Unstable Housing in the Last Year: Yes SCREENINGS PHYSICAL EXAM ED Triage Vitals [12/16/23 1452] Temp Heart Rate Resp BP 36.5 C (97.7 F) 60 18 117/67 SpO2 Temp Source Heart Rate Source Patient Position 94 % Oral Monitor -- BP Location FiO2 (%) -- -- Physical Exam Vitals and nursing note reviewed. Constitutional: General: She is not in acute distress. Cardiovascular: Rate and Rhythm: Normal rate and regular rhythm. Heart sounds: No murmur heard. No friction rub. No gallop. Pulmonary: Effort: Pulmonary effort is normal. No tachypnea or accessory muscle usage. Breath sounds: No wheezing or rales. Abdominal: General: Bowel sounds are normal. Palpations: Abdomen is soft. Tenderness: There is no abdominal tenderness. Neurological: Mental Status: She is alert and oriented to person, place, and time. DIAGNOSTIC RESULTS RADIOLOGY (Per Emergency Physician): Interpretation per the Radiologist below, if available at the time of this note: No orders to display LABS: Labs Reviewed COMPREHENSIVE METABOLIC PANEL - Abnormal Result Value SODIUM 136 POTASSIUM 4.2 CHLORIDE 108 (*) CARBON DIOXIDE 21 (*) ANION GAP 8 UREA NITROGEN 21 (*) CREATININE 1.14 (*) GLUCOSE 147 (*) CALCIUM 9.2 AST (SGOT) 29 ALT 25 ALKALINE PHOSPHATASE 92 ALBUMIN 4.1 BILIRUBIN, TOTAL 0.6 TOTAL PROTEIN 7.0 eGFR 50.9 (*) COMPLETE URINALYSIS - Abnormal Color, Urine Yellow Clarity, Urine Clear pH, Urine 5.5 Leukocytes, Urine Negative Nitrite, Urine Negative Protein, Urine 30 (*) Glucose, Urine Normal Bilirubin, Urine Negative Ketones, Urine Negative Urobilinogen, Urine Normal Blood, Urine Negative RBC, Urine 0-2 WBC, Urine 0-2 Squamous Epithelial, Urine 0-2 Bacteria, Urine Few (*) Mucus, Urine Few Hyaline Casts, Urine 0-2 (*) SPECIFIC GRAVITY OF URINE (NUMERIC) 1.014 SARS-COV-2, FLU A/B, AND RSV COMBO - Normal SARS-CoV-2 Not Detected Respiratory Syncytial Virus Not Detected Influenza A Not Detected Influenza B Not Detected Narrative: Methodology: real-time, RT-PCR The SARS-CoV-2, Flu A/B, and RSV Combo assay is intended for in vitro diagnostic use under the FDA Emergency Use Authorization (EUA). This test has not been FDA cleared or approved. In compliance with this authorization, please visit www.fda.gov/media/374254/download or www.fda.gov/media/791143/download to access the applicable information sheets. LIPASE - Normal LIPASE 107 MAGNESIUM - Normal MAGNESIUM 2.2 CBC (HEMOGRAM) - Normal Auto WBC 7.5 RBC 4.83 Hemoglobin 14.1 Hematocrit 43.3 MCV 89.6 MCH 29.2 MCHC 32.6 RDW 13.4 Platelets 195 MPV 9.2 LACTIC ACID WITH REFLEX - Normal LACTIC ACID 1.3 COMPLETE URINALYSIS WITH REFLEX TO CULTURE Narrative: The following orders were created for panel order Urinalysis complete with reflex to Culture. Procedure Abnormality Status --------- ------ Complete Urinalysis[[id number]] Abnormal Final result Please view results for these tests on the individual orders. All other labs were within normal range or not returned as of this dictation. EMERGENCY DEPARTMENT COURSE and DIFFERENTIAL DIAGNOSIS/MDM: Vitals: Vitals: 12/16/23 1452 12/16/23 1715 12/16/23 1920 BP: 117/67 126/83 139/83 Patient Position: Lying Pulse: 60 66 77 Resp: 18 18 16 Temp: 36.5 C (97.7 F) TempSrc: Oral SpO2: 94% 94% 97% Weight: 72.6 kg (160 lb) Height: 1.524 m (5') Medications sodium chloride 0.9 % bolus 1,000 mL (0 mL IntraVENous Stopped 12/16/23 1621) ondansetron (Zofran) injection 4 mg (4 mg IntraVENous Given 12/16/23 1522) 73-year-old female presented to the ED with complaints of nausea, vomiting, diarrhea and dizziness. On exam, patient is alert and oriented x 3. Normal vital signs noted during exam. Patient is afebrile. Normal heart and lung sounds. Abdomen is soft and nontender. Nursing notes indicated that the patient presented with abdominal pain. She is denying abdominal pain during my exam. Differentials include but are not limited to UTI, gastroenteritis, COVID, flu, RSV, dehydration, electrolyte imbalance. Workup included CBC, CMP, lipase, magnesium level, lactic acid, COVID test, flu test, RSV test. Plan to medicate with fluid bolus and Zofran. Workup results revealed the following: Negative test for COVID, flu and RSV. Urinalysis is negative for UTI. CBC is negative for leukocytosis. Normal lactate at 1.3. Normal lipase at 107. Normal magnesium level at 2.2. CMP revealed normal sodium and potassium levels. DEENA noted with BUN/creatinine 21/1.14 with GFR 50.9. Fluid bolus was given. Patient was otherwise hemodynamically stable during her ED stay. There was no evidence of hypotension in the ED. Nausea resolved after treatment with Zofran. She was able to tolerate oral intake by eating dinner. Patient was discharged home with close follow-up with her PCP. She was prescribed Zofran. MDM elements: Patient is in agreement with this plan. PROCEDURES: Unless otherwise noted below, none Procedures CRITICAL CARE TIME None FINAL IMPRESSION 1. Nausea vomiting and diarrhea 2. Acute kidney injury (HCC) DISPOSITION Discharge 12/16/2023 06:20:33 PM PATIENT REFERRED TO: Kenia Mckenzie MD [id number] [facility] [id number] Schedule an appointment as soon as possible for a visit in 2 days DISCHARGE MEDICATIONS: New Prescriptions ONDANSETRON (ZOFRAN) 4 MG TABLET Take 1 tablet (4 mg) by mouth in the morning and 1 tablet (4 mg) at noon and 1 tablet (4 mg) in the evening and 1 tablet (4 mg) before bedtime. Do all this for 3 days. (Comment: Please note this report has been produced using speech recognition software and may contain errors related to that system including errors in grammar, punctuation, and spelling, as well as words and phrases that may be inappropriate. If there are any questions or concerns please feel free to contact the dictating provider for clarification.) TIFFANIE Parry CNP (electronically signed) Emergency Medicine Provider TIFFANIE Parry CNP 12/16/[address] [facility] 12-16-2023 Physician Emergency department Note Emergency Department Encounter [facility] ED Patient: Pily Barnes : 1950 Date of Evaluation: 12/16/2023 ED Supervising Physician: Artur Boone MD I independently examined and evaluated Pily Barnes. This will serve as my Supervisory note as the psychiatric clinician of record and shared attestation. I did perform a substantive portion of the visit including all aspects of the Medical Decision Making. I wore appropriate PPE for the entirety of this encounter. In brief, Pily Barnes is a 73 y.o. female that presents to the emergency department with concern for nausea vomiting diarrhea started earlier today. She was endorsing lower abdominal pain for several hours earlier although has since resolved. Receive Zofran/nausea medication from her assisted living prior to arrival. She states she was feeling well prior to this. Denies any difficulties with urination no chest pain or shortness of breath. Was feeling slight lightheaded and reportedly had lower blood pressures although was using a wrist cuff at that time. She has completely normal vital signs at this point in time Focused exam: Patient has no abdominal distention or significant tenderness on examination. Has moist mucous membranes regular rate and rhythm on cardiac auscultation Brief ED course/MDM: EMERGENCY DEPARTMENT COURSE and DIFFERENTIAL DIAGNOSIS/MDM: Vitals: Vitals: 12/16/23 1452 BP: 117/67 Pulse: 60 Resp: 18 Temp: 36.5 C (97.7 F) TempSrc: Oral SpO2: 94% The patient presented with a chief complaint of with concerns for abdominal pain nausea and vomiting along with diarrhea.. The differential diagnosis associated with this patient's presentation includes gastroenteritis, pancreatitis, electro derangements, anemia. Our workup consisted of ordering/reviewing will obtain blood work as her abdominal examination is very reassuring does not have any significant tenderness at this point time and states that her pain is completely gone. Likely that she had a viral gastroenteritis based off duration of symptoms. Patient's blood work does show mild elevated creatinine from her baseline 0.86. Was given a liter of fluid although no lactic acidosis normal white blood cell count and urinalysis without any evidence of infection. Patient is able to tolerate p.o. intake without any residual nausea or vomiting and feels well. Do believe it is reasonable for her to be discharged with nausea medication return precautions given Diagnoses as of 12/16/231943 Acute kidney injury (HCC) Nausea vomiting and diarrhea Diagnostic tests considered but not performed: External records reviewed: Diagnostics interpreted by me: Discussions with other clinicians: Chronic conditions impacting care: Social determinants of health affecting care: ED Medications managed: Medications sodium chloride 0.9 % bolus 1,000 mL (1,000 mL IntraVENous New Bag 12/16/23 1521) ondansetron (Zofran) injection 4 mg (4 mg IntraVENous Given 12/16/23 1522) Prescription drugs considered: Disposition and plan: DEENA, nausea vomiting diarrhea, discharge All diagnostic, treatment, and disposition decisions were made by myself in conjunction with the Resident/JOYCE. I also supervised javier portions of any procedures performed by the Resident/JOYCE. For all further details of the patient's emergency department visit, please see their documentation. (Comment: Please note this report has been produced using speech recognition software and may contain errors related to that system including errors in grammar, punctuation, and spelling, as well as words and phrases that may be inappropriate. If there are any questions or concerns please feel free to contact the dictating provider for clarification.) Artur Boone MD [facility] Artur Boone MD 12/16/231944 [facility] Phone: 11-21-2023 Miscellaneous Notes Unable to reach son phone sent me to . Letter sent. LVMTCB LVMTCB for EGD biopsy results documented in this encounter [facility] 11-14-2023 History and physical note HISTORY AND PHYSICAL EXAMINATION SERVICE DATE: 11/14/2023 SERVICE TIME: EGD PRIMARY CARE PHYSICIAN: CUONG Thompson REASON FOR VISIT: Pily Barnes is a 73 year old female who is scheduled for EGD at the request of Dr. Arely Hercules for routine H&P. The reason for this visit is to perform a comprehensive review of the patient's past medical history, assess their current health status and obtain any additional testing required based on anesthesia guidelines. We will also identify any potential anesthesia problems or contraindications to the planned procedure. 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) Mild Intermittent Asthma Suicide Attempt (Hcc) Financial Problems Bipolar 1 Disorder (Hcc) Bipolar 1 Disorder, Depressed, Severe (Hcc) Vitamin D Deficiency Insomnia Generalized Anxiety Disorder Bipolar 1 Disorder, Depressed, Moderate (Hcc) Hypertensive Heart Disease Without Congestive Heart Failure Mixed Hyperlipidemia Moderate Persistent Asthma Without Complication Nonrheumatic Aortic Valve Stenosis Patent Foramen Ovale Stage 3 Chronic Kidney Disease (Hcc) Status Post Hysterectomy Urge Incontinence of Urine Herpes Simplex Cardiomegaly Allergic Rhinitis Multiple Thyroid Nodules S/P Partial Thyroidectomy Rhabdomyolysis Recurrent Falls Subjective CHIEF COMPLAINT: Dysphagia, unspecified type [R13.10] Abnormal barium swallow [R93.3] HPI: Patient present to [facility] for the above procedure. Patient here for routine Upper GI Endoscopy screening. This is her initial screening, she c/o choking and trouble to swallowing. Patient denies any N/V, diarrhea or constipation. Denies any abdominal pain. Denies any melena, hematochezia, or hematemesis. Patient has no known family history of Esophageal cancer, Colon cancer or other Gastric cancer. Patient agreed to planned procedure. METS: Take care of self; that is eating, dressing, bathing, using the toilet (2.75 METs) Patient denies any CP/SOB with above activity. PAST MEDICAL HISTORY Diagnosis Date Asthma Balance problem uses a walker Bipolar 1 disorder (HCC) CKD (chronic kidney disease) Depression Hypertension Mitral valve disorder TATI (obstructive sleep apnea) 08/06/2019 undiagnosed Substernal goiter PAST SURGICAL HISTORY Procedure Laterality Date COLONOSCOPY Years ago HYSTERECTOMY HX POST-CATARACT LASER SURGERY 09/2020 THYROIDECTOMY TOTAL/COMPLETE Left 12/16/2020 Dr. Soria FAMILY HISTORY Problem Relation Age of Onset Psychiatry Mother other (parkinson disease) Mother Uterine Cancer Mother Ischemic Heart Disease Father Thyroid Sister Colon Cancer No Family History SOCIAL HISTORY: Social History Tobacco Use Smoking status: Never Smokeless tobacco: Never Vaping Use Vaping Use: Never used Substance Use Topics Alcohol use: No Drug use: No Prior to Admission medications as of 10/03/23 1442 Medication Sig Last Dose Taking acetaminophen (TYLENOL) 325 mg tablet Yes famotidine (PEPCID) 20 mg tablet 11/13/2023 Yes MUCINEX 600 mg 12 hr tablet 11/13/2023 Yes HIGH POTENCY MULTIVITAMIN 400 mcg 11/13/2023 Yes calcium carbonate 600 mg-cholecalciferol 400 units 600 mg-10 mcg (400 unit) tab 11/13/2023 Yes cholecalciferol (VITAMIN D3) 50 mcg (2,000 unit) tablet 11/13/2023 Yes loratadine (CLARITIN) 10 mg tablet 11/13/2023 Yes clonazePAM (KLONOPIN) 0.5 mg tablet 1/2 tablet by mouth every day as needed for severe anxiety 11/13/2023 Yes buPROPion XL (WELLBUTRIN XL) 300 mg 24 hr tablet Take 1 tablet by mouth once daily. 11/13/2023 at 0900 Yes lamoTRIgine (LAMICTAL) 25 mg tablet Take 2 tablets by mouth once daily. 11/13/2023 Yes fluticasone-vilanterol (BREO ELLIPTA) 100-25 mcg/dose inhaler Inhale 1 puff BY MOUTH INTO THE LUNGS EVERY DAY 11/13/2023 Yes fluticasone (FLONASE) 50 mcg/actuation nasal spray instill TWO SPRAYS IN EACH nostril ONCE daily NEEDED 11/13/2023 Yes albuterol HFA (PROVENTIL HFA, VENTOLIN HFA) 90 mcg/actuation inhaler INHALE TWO PUFFS BY MOUTH INTO THE LUNGS instructed EVERY 4 HOURS NEEDED FOR WHEEZING OR FOR SHORTNESS OF BREATH 11/13/2023 at 0900 Yes lisinopril (ZESTRIL, PRINIVIL) 20 mg tablet Take 1 tablet by mouth once daily. 11/13/2023 Yes amLODIPine (NORVASC) 2.5 mg tablet Take 1 tablet by mouth once daily. 11/14/2023 Yes DELSYM 30 mg/5 mL oral liquid nystatin (MYCOSTATIN) powder Unknown Omeprazole 20 mg TbEC ondansetron (ZOFRAN) 4 mg tablet Take 4 mg by mouth every 6 hours as needed. Unknown FLUoxetine (PROZAC) 20 mg capsule 3 capsule daily ARIPiprazole (ABILIFY) 5 mg tablet Take 1 tablet by mouth once daily. paliperidone palmitate (INVEGA SUSTENNA) 39 mg/0.25 mL syrg injection INJECT 0.25 ML into THE MUSCLE EVERY FOUR WEEKS Unknown Medication Comments documented by Kim Restrepo (Rn) (Hist) RN on 03/27/2019 at 1945. Patient reports med noncompliance since discharge from hospital ALLERGIES Allergen Reactions Sulfadiazine Swelling Facial swelling Milk Other: See Comments Abdominal bloating Seasonal Allergies Intolerance Sulfa (Sulfonamide * Itching REVIEW OF SYSTEMS: General: Denies fever, chills, and unexpected weight change. Neuro: Denies dizziness and headaches. Respiratory: Positive for Asthma No history of current cough or dyspnea, or pneumonia in the past 6 weeks. Cardiovascular: Positive for: Hypertension, Valvular Heart Disease - mild , mild MR,trace TR, AR No history of angina, CHF, IL, cardiac surgery or stents. Denies chest pain or palpations. GI: See HPI. : Denies dysuria. Endocrine: No history of diabetes or thyroid conditions. Hematology: Denies history of bleeding or clotting disorder. No known autoimmune disorders. Psych: + depression, bipolar. Musculoskeletal: Denies joint pain and swelling. Skin: Denies open sores and rashes. Objective PHYSICAL EXAM: VITALS: see nursing flowsheet for VS. General: NAD. Cooperative. Skin: Skin is warm, no rashes, and no open sores. HEENT: Normocephalic. Cardiovascular: Normal S1 & S2. + 2/6 murmur. Lungs: CTA Bilaterally. No respiratory distress. Abdomen: Soft. Pos BS x4quad Extremities: No edema. Neurological: Alert and oriented to person, place, and time. Pulses: radial pulses +2 Diagnostic tests reviewed for today's visit: Lab Value Units Date High Low HB No results within date range. HCT No results within date range. WBC No results within date range. PLT No results within date range. NA No results within date range. K No results within date range. GLUC No results within date range. BUN No results within date range. CREAT No results within date range. PTSEC No results within date range. INR No results within date range. APTT No results within date range. ALT No results within date range. AST No results within date range. TBILI No results within date range. TSH No results within date range. Lab Value Units Date High Low HCGQT No results within date range. UHCG No results within date range. HCG, BODY* No results within date range. Lab Value Units Date High Low ABORHD No results within date range. ABSCREEN No results within date range. Hemoglobin A1C (%) Date Value 02/28/2022 5.2 04/30/2021 5.3 08/06/2019 5.4 07/26/2019 5.1 03/27/2019 5.4 02/21/2019 5.7 Assessment/Plan Dysphagia, unspecified type [R13.10] Abnormal barium swallow [R93.3] Patient has the following medical conditions which may affect monique-operative course Problem List Items Addressed This Visit Cardiovascular Nonrheumatic aortic valve stenosis Current Assessment & Plan ECHO 2019: AORTIC VALVE There is mild aortic valve stenosis. There is trace aortic valve regurgitation. Tricuspid aortic valve. There is mild thickening. There is mild calcification. The peak gradient is 29 mmHg (peak velocity = 270.7 cm/s). The mean gradient is 14 mmHg. The LVOT mean velocity is 126.0 cm/s. The LVOT diameter is 1.7 cm. The aortic VTI is 52.0 cm. The mean velocity in the aortic valve is 174.2 cm/s. The dimensionless valve index is 0.71. AV area is 1.58 cm (0.93 cm /m ) by continuity, VTI. The LVOT stroke volume index is 49 ml/m . Mixed hyperlipidemia Current Assessment & Plan No medication Diet control Essential hypertension Current Assessment & Plan Amlodipine, lisinopril Pulmonary Mild intermittent asthma Current Assessment & Plan Albuterol, Bero Pt uses rescue inhaler as needed. Denies hospitalization or pneumonia in the last 6 weeks. Nephrology Stage 3 chronic kidney disease (HCC) Current Assessment & Plan 03/10/23 General Handling Supervisor 0.86, GFR 71.9 Other Visit Diagnoses Dysphagia, unspecified type Relevant Orders EGD DIAGNOSTIC Abnormal barium swallow Relevant Orders EGD DIAGNOSTIC ECHO 04/01/2020 CONCLUSIONS: - Exam indication: Syncope - The left ventricle is normal in size. There is mild left ventricular hypertrophy. Left ventricular systolic function is normal. EF = 69 5% (2D biplane) - The right ventricle is normal in size. Right ventricular systolic function is normal. - The left atrial cavity is mildly dilated. - The visualized aorta is dilated with a maximal dimension of 4.6 cm. - There is mild aortic valve stenosis. The peak gradient is 29 mmHg (peak velocity = 270.7 cm/s). The mean gradient is 14 mmHg. The LVOT mean velocity is 126.0 cm/s. - The patient has not had a prior CC echocardiographic exam for comparison. PLAN Planned Procedure: EGD The Following Tests/Procedures Have Been Initiated: IV start and Maintenance fluid for the procedure. ANESTHESIA FINDINGS: Significant Anesthesia Considerations: None Planned Anesthetic: MAC Instructions Given to Patient: Patient given verbal preop instructions and voices comprehension and compliance. I spent a total of 20 minutes on the date of the service which included preparing to see the patient, [id number] patient care, completing clinical documentation, obtaining and/or reviewing separately obtained history, performing a medically appropriate examination, and counseling and educating the patient/family/caregiver. SIGNATURE: Uriah Blair APRN.CNP PATIENT NAME: Pily Barnes DATE: November 14, 2023 TIME: 7:30 AM PAGER/CONTACT #: Endoscopy pre-operative H&P H&P completed prior to the start time of the procedure. IMPRESSION AND PLAN HPI: This is a 73 year old female. For EGD dysphagia. Pertinent Review of Systems: GI: See HPI All other reviewed and negative other than HPI. PAST MEDICAL HISTORY: PAST MEDICAL HISTORY Diagnosis Date Asthma Balance problem uses a walker Bipolar 1 disorder (HCC) CKD (chronic kidney disease) Depression Hypertension Mitral valve disorder TATI (obstructive sleep apnea) 08/06/2019 undiagnosed Substernal goiter PAST SURGICAL HISTORY: PAST SURGICAL HISTORY Procedure Laterality Date COLONOSCOPY Years ago HYSTERECTOMY HX POST-CATARACT LASER SURGERY 09/2020 THYROIDECTOMY TOTAL/COMPLETE Left 12/16/2020 Dr. Soria OBJECTIVE: PHYSICAL EXAM: VITALS: BP 129/83 Pulse 75 Temp 37.1 C (98.8 F) (Temporal) Resp 18 SpO2 95% General appearance: A&Ox3 Respiratory: Normal chest expansion. No audible wheezes. CVS: No shortness of breath, no extremity edema. Regular pulse. Plan: OK to proceed with endoscopy. SIGNATURE: Aurelio Roy MD PATIENT NAME: Pily Barnes documented in this encounter [facility] 10-03-2023 Note HNO ID: [id number] Author: ARELY HERCULES PA-C Service: ? Author Type: Physician Installations Inspector Type: Progress Notes Filed: 10/03/2023 15:47 Note Text: CHIEF COMPLAINT: Patient presents with: Dysphagia : Choking with food. Had a barium swallow This consult was requested by Self for an opinion regarding dysphagia. My final recommendations will be communicated to the requesting health care provider by way of the shared medical record for internal providers or letter via the [employer] for external providers. HPI: Pily Barnes is a 73 year old female who presents for Dysphagia (Choking with food. Had a barium swallow ). PMHx of asthma, Bipolar 1, CKD, depression, TATI, HTN Son is present today. Patient tells me that she has been dealing with dysphagia with solids, liquids, pills. Feels things sticking in her cervical esophagus. Able to get things to pass down but will occasionally vomit due to food stuck. No nausea, abdominal pain, GERD symptoms. Appetite is good. Weight is stable. Bowel movements are regular. No smoking or alcohol use. No pertinent GI family hx. Esophagram 05/31/2023: Impression Limited examination due to patient condition. Narrowing of the cervical esophagus without obstruction. Mucosal irregularity and narrowing of the distal esophagus with transient hold up of the barium tablet. Endoscopy may be beneficial. Small hiatus hernia with spontaneous gastroesophageal reflux. Record Review: [facility] / Outside records reviewed. PAST MEDICAL HISTORY Diagnosis Date Asthma Balance problem uses a walker Bipolar 1 disorder (HCC) CKD (chronic kidney disease) Depression Hypertension Mitral valve disorder TATI (obstructive sleep apnea) 08/06/2019 undiagnosed Substernal goiter PAST SURGICAL HISTORY Procedure Laterality Date COLONOSCOPY Years ago HYSTERECTOMY HX POST-CATARACT LASER SURGERY 09/2020 THYROIDECTOMY TOTAL/COMPLETE Left 12/16/2020 Dr. Soria Allergies: ALLERGIES Allergen Reactions Sulfadiazine Swelling Facial swelling Milk Other: See Comments Abdominal bloating Seasonal Allergies Intolerance Sulfa (Sulfonamide * Itching Medications: acetaminophen (TYLENOL) 325 mg tabletDisp: Rfl: famotidine (PEPCID) 20 mg tabletDisp: Rfl: DELSYM 30 mg/5 mL oral liquidDisp: Rfl: MUCINEX 600 mg 12 hr tabletDisp: Rfl: HIGH POTENCY MULTIVITAMIN 400 mcgDisp: Rfl: nystatin (MYCOSTATIN) powderDisp: Rfl: Omeprazole 20 mg TbECDisp: Rfl: ondansetron (ZOFRAN) 4 mg tabletTake 4 mg by mouth every 6 hours as needed.Disp: Rfl: calcium carbonate 600 mg-cholecalciferol 400 units 600 mg-10 mcg (400 unit) tabDisp: Rfl: cholecalciferol (VITAMIN D3) 50 mcg (2,000 unit) tabletDisp: Rfl: loratadine (CLARITIN) 10 mg tabletDisp: Rfl: buPROPion XL (WELLBUTRIN XL) 300 mg 24 hr tabletTake 1 tablet by mouth once daily.Disp: 30 tabletRfl: 2 FLUoxetine (PROZAC) 20 mg capsule3 capsule dailyDisp: 90 capsuleRfl: 2 ARIPiprazole (ABILIFY) 5 mg tabletTake 1 tablet by mouth once daily.Disp: 30 tabletRfl: 2 lamoTRIgine (LAMICTAL) 25 mg tabletTake 2 tablets by mouth once daily.Disp: 180 tabletRfl: 1 paliperidone palmitate (INVEGA SUSTENNA) 39 mg/0.25 mL syrg injectionINJECT 0.25 ML into THE MUSCLE EVERY FOUR WEEKSDisp: 0.25 mLRfl: 1 fluticasone-vilanterol (BREO ELLIPTA) 100-25 mcg/dose inhalerInhale 1 puff BY MOUTH INTO THE LUNGS EVERY DAYDisp: 28 EachRfl: 3 fluticasone (FLONASE) 50 mcg/actuation nasal sprayinstill TWO SPRAYS IN EACH nostril ONCE daily NEEDEDDisp: 16 gRfl: 3 albuterol HFA (PROVENTIL HFA, VENTOLIN HFA) 90 mcg/actuation inhalerINHALE TWO PUFFS BY MOUTH INTO THE LUNGS instructed EVERY 4 HOURS NEEDED FOR WHEEZING OR FOR SHORTNESS OF BREATHDisp: 18 gRfl: 3 lisinopril (ZESTRIL, PRINIVIL) 20 mg tabletTake 1 tablet by mouth once daily.Disp: 90 tabletRfl: 3 amLODIPine (NORVASC) 2.5 mg tabletTake 1 tablet by mouth once daily.Disp: 90 tabletRfl: 3 clonazePAM (KLONOPIN) 0.5 mg tablet1/2 tablet by mouth every day as needed for severe anxietyDisp: 30 tabletRfl: 1 FAMILY HISTORY Problem Relation Age of Onset Psychiatry Mother other (parkinson disease) Mother Uterine Cancer Mother Ischemic Heart Disease Father Thyroid Sister Colon Cancer No Family History Employer And Job Title: None on file Years Of Education Completed: Not specified Marital Status: Social History Tobacco Use Smoking status: Never Smokeless tobacco: Never Vaping Use Vaping Use: Never used Substance Use Topics Alcohol use: No Drug use: No Review of Systems: Review of Systems HENT: Positive for trouble swallowing and voice change. Respiratory: Positive for cough, choking, shortness of breath and wheezing. Gastrointestinal: Gas All other systems reviewed and are negative. Are you taking any blood thinners? No Physical Examination: BP 132/84 Pulse 82 Ht 5' 0" (1.52m) Wt 0 lb (0.0kg) Physical Exam Cons (more content not included)... [facility] 07-05-2023 History of Present illness Narrative NEUROSURGERY and SPINE POST-OP NOTE Patient Name: Pily Barnes Patient : 1950 PCP: KENIA MCKENZIE MD History of Present Illness: Ms. Barnes returns today for her 3 months follow up with xrays. She is s/p C3-C6 ACDF performed 03/02/23. She is recovering well. Her incision has healed well; she reports mild dysphagia Past Medical History: Past Medical History: Diagnosis Date Anxiety Aspirin long-term use history Asthma Bipolar 1 disorder (HCC) Chronic kidney disease Depression Difficulty walking High blood pressure Lack of coordination Mitral valve insufficiency Muscle weakness Presence of intraocular lens Repeated falls Rhabdomyolysis Sleep apnea Suicidal ideations Traumatic subarachnoid hemorrhage without loss of consciousness (HCC) Past Surgical History: Past Surgical History: Procedure Laterality Date CERVICAL SPINE SURGERY 03/02/2023 C3-C6 ANTERIOR CERVICAL DECOMPRESSION, FUSION HYSTERECTOMY THYROID SURGERY N/A half Home Medications: Prior to Admission medications Medication Sig Start Date End Date Taking? Authorizing Provider albuterol 108 (90 Base) MCG/ACT inhaler INHALE TWO PUFFS BY MOUTH INTO THE LUNGS instructed EVERY 4 HOURS NEEDED FOR WHEEZING OR FOR SHORTNESS OF BREATH 02/22/22 Yes Historical Provider, amLODIPine (Norvasc) 2.5 MG tablet Take 2.5 mg by mouth daily. 09/27/22 Yes Historical Provider, ARIPiprazole (Abilify) 5 MG tablet Take 5 mg by mouth daily. 11/03/22 Yes Historical Provider, MD Bosch Ellipta 100-25 MCG/ACT aerosol powder Inhale 1 puff daily. 11/05/22 Yes Historical Provider, buPROPion XL (Wellbutrin XL) 300 MG 24 hr tablet 11/03/22 Yes Historical Provider, Calcium + Vitamin D3 600-10 MG-MCG tablet Take 1 tablet by mouth daily. 600/400 10/20/22 Yes Historical Provider, cholecalciferol (Vitamin D-3) 125 MCG (5000 UT) tablet Take 2,000 Units by mouth daily. Yes Historical Provider, clonazePAM (KlonoPIN) 0.5 MG tablet Take 0.5 mg by mouth Daily as needed for anxiety. 04/11/22 Yes Historical Provider, FLUoxetine (PROzac) 20 MG capsule Take 60 mg by mouth daily. 09/23/22 Yes Historical Provider, fluticasone (Flonase) 50 MCG/ACT nasal spray Administer 2 sprays into each nostril Daily as needed for allergies. 02/22/22 Yes Historical Provider, Invega Sustenna 39 MG/0.25ML suspension prefilled syringe 09/23/22 Yes Historical Provider, lamoTRIgine (LaMICtal) 25 MG tablet Take 50 mg by mouth daily. 11/07/22 Yes Historical Provider, lisinopril 20 MG tablet Take 20 mg by mouth daily. 11/08/22 Yes Historical Provider, Loratadine 10 MG capsule Take 10 mg by mouth daily. Yes Historical Provider, Multiple Vitamin (High Potency Multivitamin) tablet Take 1 tablet by mouth daily. 09/27/22 Yes Historical Provider, nystatin (Mycostatin) 947051 UNIT/GM powder Apply 1 Application topically 2 times daily. Under breasts Yes Historical Provider, ondansetron (Zofran) 4 MG tablet Take 4 mg by mouth every 6 hours as needed for nausea or vomiting. Yes Historical Provider, naloxone (Narcan) 4 mg/0.1 mL nasal spray Administer 1 spray (4 mg) into affected nostril(s) Once for 1 dose. May repeat every 2-3 minutes if needed, alternating nostrils, until medical assistance becomes available. 03/06/23 03/07/23 Carlton Hsu PA-C chlorhexidine (Hibiclens) 4 % external liquid Apply topically 1 (one) time if needed (pre-op) for up to 1 dose. 02/27/23 03/10/23 Christal Carcamo APRN - BEATA oxyCODONE (Roxicodone) 5 MG immediate release tablet Take 1 tablet (5 mg) by mouth every 4 hours as needed for moderate pain (4-6) for up to 5 days. 03/06/23 03/09/23 Carlton Hsu PA-C tiZANidine (Zanaflex) 4 MG tablet Take 1 tablet (4 mg) by mouth every 8 hours as needed for muscle spasms for up to 10 days. 03/06/23 03/09/23 Carlton Hsu PA-C Allergies: Sulfa antibiotics and Milk [milk (cow)] Social History: TOBACCO: reports that she has never smoked. She has never used smokeless tobacco. ETOH: reports no history of alcohol use. RECREATIONAL DRUG USE: Social History Substance and Sexual Activity Drug Use Never Family History: Family History Problem Relation Name Age of Onset Cancer Mother No Known Problems Father Review of Systems: Review of Systems Constitutional: Negative. HENT: Positive for trouble swallowing. Eyes: Negative. Respiratory: Negative. Cardiovascular: Negative. Gastrointestinal: Negative. Endocrine: Negative. Genitourinary: Negative. Musculoskeletal: Negative. Skin: Negative. Neurological: Negative. Psychiatric/Behavioral: Negative. Physical Examination: Vitals: 07/05/23 1349 BP: (!) 146/93 Pulse: 66 Temp: Physical Exam Constitutional: Appearance: Normal appearance. HENT: Head: Normocephalic. Eyes: Extraocular Movements: Extraocular movements intact. Pupils: Pupils are equal, round, and reactive to light. Cardiovascular: Rate and Rhythm: Normal rate. Pulmonary: Effort: Pulmonary effort is normal. Abdominal: Palpations: Abdomen is soft. Musculoskeletal: General: Normal range of motion. Cervical back: Normal range of motion and neck supple. Skin: General: Skin is warm and dry. Neurological: General: No focal deficit present. Mental Status: She is alert and oriented to person, place, and time. Cranial Nerves: Cranial nerves 2-12 are intact. Motor: Motor strength is normal. Gait: Gait is intact. Deep Tendon Reflexes: Reflex Scores: Tricep reflexes are 2+ on the right side and 2+ on the left side. Bicep reflexes are 2+ on the right side and 2+ on the left side. Brachioradialis reflexes are 2+ on the right side and 2+ on the left side. Patellar reflexes are 2+ on the right side and 2+ on the left side. Achilles reflexes are 2+ on the right side and 2+ on the left side. Psychiatric: Mood and Affect: Mood normal. Judgment: Judgment normal. Neurologic Exam Mental Status Oriented to person, place, and time. Cranial Nerves Cranial nerves II through XII intact. CN III, IV, Pupils are equal, round, and reactive to light. Motor Exam Muscle bulk: normal Overall muscle tone: normal Strength Strength 5/5 throughout. Sensory Exam Light touch normal. Gait, Coordination, and Reflexes Gait Gait: normal Reflexes Right brachioradialis: 2+ Left brachioradialis: 2+ Right biceps: 2+ Left biceps: 2+ Right triceps: 2+ Left triceps: 2+ Right patellar: 2+ Left patellar: 2+ Right achilles: 2+ Left achilles: 2+ Right weekend anchor: 2+ Left weekend anchor: 2+ Results Labs: Last 24hrs No results found for this or any previous visit (from the past 24 hour(s)). Radiology Personal review: Plain films of the cervical spine show postoperative changes C3-C4, C4-C5, C5-C6. There is no evidence of hardware failure. ASSESSMENT / PLAN : She is status post C3-C6 ACDF. She and her son feel her symptoms are improved postoperatively. Preoperatively she did have symptoms of dysphagia which were worse after surgery, they both feel they are improving now. She continues to have symptoms of cervical myelopathy although they are much better than they were preoperatively. Today we released her to activity she feels up to doing, she can now follow-up with us on an as-needed basis. Diagnosis Plan 1. Cervical myelopathy (HCC) documented in this encounter [facility] 05-25-2023 Hospital Discharge instructions Humberto Ghosh, - 05/25/2023 10:53 PM EDT You were seen today for redness in your left arm after receiving an allergy shot and a flu shot. As we discussed that is difficult to assess whether this is related to a bacterial infection or a local reaction due to your shots. I recommend you continue taking your Claritin and other medications for asthma as they will treat an allergic reaction. To ensure that this is not related to an infection I will also treat you with Keflex 4 times per day for 1 week to treat any bacterial infection. Please monitor your arm closely and if you have any worsening symptoms such as severe fever, fatigue, feelings of difficulty breathing, your throat closing, please return to the emergency department. The following attachments cannot be sent through Care Everywhere.Cellulitis (Skin Infection), Adult ED ([place])Allergic Reaction ED ([place])documented in this encounter [facility] 05-25-2023 Emergency department Note Emergency Department Encounter [facility] ED Patient: Pily Barnes : 1950 Date of Evaluation: 05/25/2023 ED Provider: Humberto Ghosh DO Chief Complaint Chief Complaint Patient presents with Skin Problem Redness to left upper arm EKUK Pily Barnes is a 72 y.o. female who presents to the emergency department complaining of left arm redness. Patient explains that she got a flu shot. This was yesterday. Today she is having redness in her left arm. She also got an allergy shot in the same arm. Denies fevers, chills, nausea, vomiting. She reports she believes there is a mild swelling in her left arm. Discussed with nurses at her assisted living facility who felt that she should be evaluated. Additional history obtained from : n/a Barriers to obtaining history from patient: n/a ROS: Review of Systems completed as follows: (Bold = positive, Not bold = negative) GENERAL: fevers, chills, malaise ENT: runny nose, congestion, sore throat, ear pain NEURO: weakness, numbness of tingling, headache CARDIOVASCULAR: chest pain, syncope PULMONARY: shortness of breath, cough, wheezing GASTROINTESTINAL: nausea, vomiting, abdominal pain, diarrhea, constipation, MUSCULOSKELETAL: pain GENITAL/URINARY: dysuria, hematuria, increased urinary frequency, hesitancy, flank pain SKIN: rash, lesions, wound Past History Past Medical History: Diagnosis Date Anxiety Aspirin long-term use history Asthma Bipolar 1 disorder (HCC) Chronic kidney disease Depression Difficulty walking High blood pressure Lack of coordination Mitral valve insufficiency Muscle weakness Presence of intraocular lens Repeated falls Rhabdomyolysis Sleep apnea Suicidal ideations Traumatic subarachnoid hemorrhage without loss of consciousness (HCC) Past Surgical History: Procedure Laterality Date CERVICAL SPINE SURGERY 03/02/2023 C3-C6 ANTERIOR CERVICAL DECOMPRESSION, FUSION HYSTERECTOMY THYROID SURGERY N/A half Social History Tobacco Use Smoking status: Never Smokeless tobacco: Never Vaping Use Vaping Use: Never used Substance and Sexual Activity Alcohol use: Never Drug use: Never Social Determinants of Health Transportation Needs: No Transportation Needs (03/03/2023) PRAPARE - Transportation Lack of Transportation (Medical): No Lack of Transportation (Non-Medical): No Intimate Partner Violence: Not At Risk (03/02/2023) Humiliation, Afraid, Rape, and Kick questionnaire Fear of Current or Ex-Partner: No Emotionally Abused: No Physically Abused: No Sexually Abused: No Housing Stability: High Risk (03/03/2023) Housing Stability Vital Sign Unable to Pay for Housing in the Last Year: No Number of Places Lived in the Last Year: 1 Unstable Housing in the Last Year: Yes I have reviewed the history above as provided by nursing notes. Medications/Allergies Discharge Medication List as of 05/25/2023 10:53 PM CONTINUE these medications which have NOT CHANGED Details albuterol 108 (90 Base) MCG/ACT inhaler INHALE TWO PUFFS BY MOUTH INTO THE LUNGS instructed EVERY 4 HOURS NEEDED FOR WHEEZING OR FOR SHORTNESS OF BREATH, Historical Med amLODIPine (Norvasc) 2.5 MG tablet Take 2.5 mg by mouth daily., Starting e 09/27/2022, Historical Med ARIPiprazole (Abilify) 5 MG tablet Take 5 mg by mouth daily., Starting Buffy 11/03/2022, Historical Med Breo Ellipta 100-25 MCG/ACT aerosol powder Inhale 1 puff daily., Starting 11/05/2022, Historical Med buPROPion XL (Wellbutrin XL) 300 MG 24 hr tablet Take 300 mg by mouth daily., Starting Buffy 11/03/2022, Historical Med Calcium + Vitamin D3 600-10 MG-MCG tablet Take 1 tablet by mouth daily. 600/400, Starting Buffy 10/20/2022, Historical Med cholecalciferol (Vitamin D-3) 125 MCG (5000 UT) tablet Take 2,000 Units by mouth daily., Historical Med FLUoxetine (PROzac) 20 MG capsule Take 60 mg by mouth daily., Starting Mon09/23/2022, Historical Med fluticasone (Flonase) 50 MCG/ACT nasal spray Administer 2 sprays into each nostril Daily as needed for allergies., Starting Mon02/22/2022, Historical Med Invega Sustenna 39 MG/0.25ML suspension prefilled syringe Inject 39 mg into the shoulder, thigh, or buttocks every 30 (thirty) days., Starting Mon09/23/2022, Historical Med lamoTRIgine (LaMICtal) 25 MG tablet Take 50 mg by mouth daily., Starting Mon11/07/2022, Historical Med lisinopril 20 MG tablet Take 20 mg by mouth daily., Starting Mon11/08/2022, Historical Med Loratadine 10 MG capsule Take 10 mg by mouth daily., Historical Med Multiple Vitamin (High Potency Multivitamin) tablet Take 1 tablet by mouth daily., Starting Mon09/27/2022, Historical Med nystatin (Mycostatin) [id number] UNIT/GM powder Apply 1 Application topically 2 times daily. Under breasts, Historical Med Omeprazole 20 MG tablet delayed-release Starting Mon04/26/2023, Historical Med ondansetron (Zofran) 4 MG tablet Take 4 mg by mouth every 6 hours as needed for nausea or vomiting., Historical Med Allergies Allergen Reactions Sulfa Antibiotics Itching and Swelling Other reaction(s): Other: See Comments Facial swelling Milk [Milk (Cow)] Other Abdominal bloating I have reviewed the history above as provided by nursing notes. Physical Exam ED Triage Vitals [05/25/23 2242] Temp Heart Rate Resp BP 37.2 C (98.9 F) 67 16 (!) 163/111 SpO2 Temp Source Heart Rate Source Patient Position 93 % Oral -- -- BP Location FiO2 (%) -- -- GENERAL: The patient appears nourished and normally developed. Vital signs as documented. EYES: PERRL. No scleral icterus or orbital trauma noted. HEENT: Mucous membranes moist. Nares patent without copious rhinorrhea. LUNGS: Lungs are clear to auscultation, without any respiratory distress. CARDIAC: Rhythm is regular. No murmur appreciated ABDOMEN: Nontender, soft, with no obvious masses, and no peritoneal signs. EXTREMITIES: Non edematous, with no obvious deformities. SKIN: There is an area of poorly circumscribed erythema to the left lateral arm. This is inferior to the area of previous injection site from flu vaccination. Good color, with no significant rashes. No pallor. NEURO: No obvious neurological deficits, normal sensation and strength bilaterally. Diagnostics Labs: Results for orders placed or performed during the hospital encounter of 03/02/23 SARS-CoV-2 Antigen Specimen: Nasal; Swab Result Value Ref Range SARS-CoV-2 Antigen Negative Negative Protime-INR Result Value Ref Range PROTHROMBIN TIME 10.3 9.0 - 12.0 s INR 1.0 0.9 - 1.1 Basic metabolic panel Result Value Ref Range SODIUM 132 (L) 135 - 145 mmol/L POTASSIUM 4.7 3.5 - 5.1 mmol/L CHLORIDE 105 98 - 107 mmol/L CARBON DIOXIDE 23 22 - 30 mmol/L UREA NITROGEN 21 (H) 7 - 17 mg/dL CREATININE 0.88 0.52 - 1.04 mg/dL GLUCOSE 141 (H) 70 - 100 mg/dL CALCIUM 8.7 8.4 - 10.4 mg/dL ANION GAP 5 3 - 13 mmol/L eGFR 69.9 >60.0 mL/min/1.73m*2 CBC auto differential Result Value Ref Range Auto WBC 6.7 3.6 - 10.7 10*3/uL RBC 4.27 3.8 - 5.20 10*6/uL Hemoglobin 13.2 11.7 - 16.0 g/dL Hematocrit 39.9 35.0 - 47.0 % MCV 93.4 80.0 - 98.0 fL MCH 30.8 26.0 - 34.0 pg MCHC 33.0 32.0 - 36.0 % RDW 13.2 11.5 - 14.5 % Platelets 168 140 - 440 10*3/uL MPV 7.6 7.4 - 12.4 fL nRBC 0.1 0.0 - 2.0 /100 WBCs Neutrophils Relative 93.3 (H) 40.0 - 80.0 % Lymphocytes Relative 5.5 (L) 20.0 - 40.0 % Monocytes Relative 1.0 (L) 2.0 - 10.0 % Eosinophils Relative 0.0 (L) 1.0 - 6.0 % Basophils Relative 0.2 0.0 - 2.0 % Neutrophils Absolute 6.2 1.8 - 7.0 10*3/uL Lymphocytes Absolute 0.4 (L) 1.0 - 4.3 10*3/uL Monocytes Absolute 0.1 0.0 - 0.8 10*3/uL Eosinophils Absolute 0.0 0.0 - 0.5 10*3/uL Basophils Absolute 0.0 0.0 - 0.2 10*3/uL CBC auto differential Result Value Ref Range Auto WBC 5.6 3.6 - 10.7 10*3/uL RBC 4.15 3.8 - 5.20 10*6/uL Hemoglobin 12.9 11.7 - 16.0 g/dL Hematocrit 39.1 35.0 - 47.0 % MCV 94.2 80.0 - 98.0 fL MCH 31.2 26.0 - 34.0 pg MCHC 33.1 32.0 - 36.0 % RDW 13.3 11.5 - 14.5 % Platelets 151 140 - 440 10*3/uL MPV 7.3 (L) 7.4 - 12.4 fL nRBC 0.0 0.0 - 2.0 /100 WBCs Neutrophils Relative 80.6 (H) 40.0 - 80.0 % Lymphocytes Relative 12.1 (L) 20.0 - 40.0 % Monocytes Relative 5.0 2.0 - 10.0 % Eosinophils Relative 2.1 1.0 - 6.0 % Basophils Relative 0.2 0.0 - 2.0 % Neutrophils Absolute 4.5 1.8 - 7.0 10*3/uL Lymphocytes Absolute 0.7 (L) 1.0 - 4.3 10*3/uL Monocytes Absolute 0.3 0.0 - 0.8 10*3/uL Eosinophils Absolute 0.1 0.0 - 0.5 10*3/uL Basophils Absolute 0.0 0.0 - 0.2 10*3/uL Basic metabolic panel Result Value Ref Range SODIUM 143 135 - 145 mmol/L POTASSIUM 3.6 3.5 - 5.1 mmol/L CHLORIDE 111 (H) 98 - 107 mmol/L CARBON DIOXIDE 25 22 - 30 mmol/L UREA NITROGEN 14 7 - 17 mg/dL CREATININE 0.80 0.52 - 1.04 mg/dL GLUCOSE 139 (H) 70 - 100 mg/dL CALCIUM 9.0 8.4 - 10.4 mg/dL ANION GAP 7 3 - 13 mmol/L eGFR 78.4 >60.0 mL/min/1.73m*2 CBC auto differential Result Value Ref Range Auto WBC 4.8 3.6 - 10.7 10*3/uL RBC 3.94 3.8 - 5.20 10*6/uL Hemoglobin 12.4 11.7 - 16.0 g/dL Hematocrit 37.8 35.0 - 47.0 % MCV 96.0 80.0 - 98.0 fL MCH 31.5 26.0 - 34.0 pg MCHC 32.9 32.0 - 36.0 % RDW 13.6 11.5 - 14.5 % Platelets 183 140 - 440 10*3/uL MPV 7.8 7.4 - 12.4 fL nRBC 0.1 0.0 - 2.0 /100 WBCs Neutrophils Relative 63.9 40.0 - 80.0 % Lymphocytes Relative 21.9 20.0 - 40.0 % Monocytes Relative 10.3 (H) 2.0 - 10.0 % Eosinophils Relative 3.3 1.0 - 6.0 % Basophils Relative 0.6 0.0 - 2.0 % Neutrophils Absolute 3.0 1.8 - 7.0 10*3/uL Lymphocytes Absolute 1.0 1.0 - 4.3 10*3/uL Monocytes Absolute 0.5 0.0 - 0.8 10*3/uL Eosinophils Absolute 0.2 0.0 - 0.5 10*3/uL Basophils Absolute 0.0 0.0 - 0.2 10*3/uL Basic metabolic panel Result Value Ref Range SODIUM 141 135 - 145 mmol/L POTASSIUM 4.3 3.5 - 5.1 mmol/L CHLORIDE 109 (H) 98 - 107 mmol/L CARBON DIOXIDE 26 22 - 30 mmol/L UREA NITROGEN 24 (H) 7 - 17 mg/dL CREATININE 0.87 0.52 - 1.04 mg/dL GLUCOSE 89 70 - 100 mg/dL CALCIUM 9.1 8.4 - 10.4 mg/dL ANION GAP 6 3 - 13 mmol/L eGFR 70.9 >60.0 mL/min/1.73m*2 CBC auto differential Result Value Ref Range Auto WBC 5.8 3.6 - 10.7 10*3/uL RBC 4.29 3.8 - 5.20 10*6/uL Hemoglobin 13.5 11.7 - 16.0 g/dL Hematocrit 41.1 35.0 - 47.0 % MCV 95.8 80.0 - 98.0 fL MCH 31.5 26.0 - 34.0 pg MCHC 32.9 32.0 - 36.0 % RDW 13.5 11.5 - 14.5 % Platelets 193 140 - 440 10*3/uL MPV 7.3 (L) 7.4 - 12.4 fL nRBC 0.1 0.0 - 2.0 /100 WBCs Neutrophils Relative 66.8 40.0 - 80.0 % Lymphocytes Relative 21.6 20.0 - 40.0 % Monocytes Relative 8.7 2.0 - 10.0 % Eosinophils Relative 2.4 1.0 - 6.0 % Basophils Relative 0.5 0.0 - 2.0 % Neutrophils Absolute 3.9 1.8 - 7.0 10*3/uL Lymphocytes Absolute 1.3 1.0 - 4.3 10*3/uL Monocytes Absolute 0.5 0.0 - 0.8 10*3/uL Eosinophils Absolute 0.1 0.0 - 0.5 10*3/uL Basophils Absolute 0.0 0.0 - 0.2 10*3/uL Basic metabolic panel Result Value Ref Range SODIUM 141 135 - 145 mmol/L POTASSIUM 3.9 3.5 - 5.1 mmol/L CHLORIDE 109 (H) 98 - 107 mmol/L CARBON DIOXIDE 23 22 - 30 mmol/L UREA NITROGEN 26 (H) 7 - 17 mg/dL CREATININE 0.86 0.52 - 1.04 mg/dL GLUCOSE 93 70 - 100 mg/dL CALCIUM 9.1 8.4 - 10.4 mg/dL ANION GAP 9 3 - 13 mmol/L eGFR 71.9 >60.0 mL/min/1.73m*2 Radiographs: No orders to display EMERGENCY DEPARTMENT COURSE and DIFFERENTIAL DIAGNOSIS/MDM: Vitals: Vitals: 05/25/23 2242 BP: (!) 163/111 Pulse: 67 Resp: 16 Temp: 37.2 C (98.9 F) TempSrc: Oral SpO2: 93% The patient presented with a chief complaint of left arm redness. Vital signs reviewed. Examination does reveal erythema but no other skin findings including any bullae, edema, open lesions. Differential considered includes cellulitis, allergic reaction. Patient currently taking antihistamines and I feel that this would adequately treat allergic reaction. I do feel steroids are required. However possibility of cellulitis is still considered so I will start patient on Keflex. She will take this 4 times per day for a week. I recommend she follow-up with her primary care doctor. She states understand with plan and she was discharged home. Diagnoses as of 05/26/23 0245 Left arm cellulitis ED Medications managed: Medications cephalexin (Keflex) capsule 500 mg (500 mg Oral Given 05/25/23 1046) Patients symptoms are consistent with sepsis, severe sepsis or septic shock (if yes, use ".sepsiscoremeasure") - no Final Impression 1. Left arm cellulitis DISPOSITION discharge Comment: Please note this report has been produced using speech recognition software and may contain errors related to that system including errors in grammar, punctuation, and spelling, as well as words and phrases that may be inappropriate. If there are any questions or concerns please feel free to contact the dictating provider for clarification. Humberto Ghosh DO [employer] Humberto Ghosh DO 05/26/23 0252 Pt to ED3 via wheelchair with son with c/o left upper arm redness. Pt is from [facility]. Yesterday she was given both an allergy shot and a flu shot in the left arm. These were given by different practitioners. Today the staff noted pt having redness to left arm, not at the injection site but more to the inner upper arm. Staff applied ice then the RN contacted pts son and recommended she be seen at the ED. Pt is A&Ox3, respirations even and unlabored, skin warm and dry, no distress noted. documented in this encounter [facility] 05-25-2023 Emergency department Triage note Pt to ED3 via wheelchair with son with c/o left upper arm redness. Pt is from [facility]. Yesterday she was given both an allergy shot and a flu shot in the left arm. These were given by different practitioners. Today the staff noted pt having redness to left arm, not at the injection site but more to the inner upper arm. Staff applied ice then the RN contacted pts son and recommended she be seen at the ED. Pt is A&Ox3, respirations even and unlabored, skin warm and dry, no distress noted. [facility] 05-25-2023 Physician Emergency department Note Emergency Department Encounter [facility] ED Patient: Pily Barnes : 1950 Date of Evaluation: 05/25/2023 ED Provider: Humberto Ghosh DO Chief Complaint Chief Complaint Patient presents with Skin Problem Redness to left upper arm EKUK Pily Barnes is a 72 y.o. female who presents to the emergency department complaining of left arm redness. Patient explains that she got a flu shot. This was yesterday. Today she is having redness in her left arm. She also got an allergy shot in the same arm. Denies fevers, chills, nausea, vomiting. She reports she believes there is a mild swelling in her left arm. Discussed with nurses at her assisted living facility who felt that she should be evaluated. Additional history obtained from : n/a Barriers to obtaining history from patient: n/a ROS: Review of Systems completed as follows: (Bold = positive, Not bold = negative) GENERAL: fevers, chills, malaise ENT: runny nose, congestion, sore throat, ear pain NEURO: weakness, numbness of tingling, headache CARDIOVASCULAR: chest pain, syncope PULMONARY: shortness of breath, cough, wheezing GASTROINTESTINAL: nausea, vomiting, abdominal pain, diarrhea, constipation, MUSCULOSKELETAL: pain GENITAL/URINARY: dysuria, hematuria, increased urinary frequency, hesitancy, flank pain SKIN: rash, lesions, wound Past History Past Medical History: Diagnosis Date Anxiety Aspirin long-term use history Asthma Bipolar 1 disorder (HCC) Chronic kidney disease Depression Difficulty walking High blood pressure Lack of coordination Mitral valve insufficiency Muscle weakness Presence of intraocular lens Repeated falls Rhabdomyolysis Sleep apnea Suicidal ideations Traumatic subarachnoid hemorrhage without loss of consciousness (HCC) Past Surgical History: Procedure Laterality Date CERVICAL SPINE SURGERY 03/02/2023 C3-C6 ANTERIOR CERVICAL DECOMPRESSION, FUSION HYSTERECTOMY THYROID SURGERY N/A half Social History Tobacco Use Smoking status: Never Smokeless tobacco: Never Vaping Use Vaping Use: Never used Substance and Sexual Activity Alcohol use: Never Drug use: Never Social Determinants of Health Transportation Needs: No Transportation Needs (03/03/2023) PRAPARE - Transportation Lack of Transportation (Medical): No Lack of Transportation (Non-Medical): No Intimate Partner Violence: Not At Risk (03/02/2023) Humiliation, Afraid, Rape, and Kick questionnaire Fear of Current or Ex-Partner: No Emotionally Abused: No Physically Abused: No Sexually Abused: No Housing Stability: High Risk (03/03/2023) Housing Stability Vital Sign Unable to Pay for Housing in the Last Year: No Number of Places Lived in the Last Year: 1 Unstable Housing in the Last Year: Yes I have reviewed the history above as provided by nursing notes. Medications/Allergies Discharge Medication List as of 05/25/2023 10:53 PM CONTINUE these medications which have NOT CHANGED Details albuterol 108 (90 Base) MCG/ACT inhaler INHALE TWO PUFFS BY MOUTH INTO THE LUNGS instructed EVERY 4 HOURS NEEDED FOR WHEEZING OR FOR SHORTNESS OF BREATH, Historical Med amLODIPine (Norvasc) 2.5 MG tablet Take 2.5 mg by mouth daily., Starting Mon09/27/2022, Historical Med ARIPiprazole (Abilify) 5 MG tablet Take 5 mg by mouth daily., Starting Mon11/03/2022, Historical Med Breo Ellipta 100-25 MCG/ACT aerosol powder Inhale 1 puff daily., Starting 11/05/2022, Historical Med buPROPion XL (Wellbutrin XL) 300 MG 24 hr tablet Take 300 mg by mouth daily., Starting Mon11/03/2022, Historical Med Calcium + Vitamin D3 600-10 MG-MCG tablet Take 1 tablet by mouth daily. 600/400, Starting Buffy 10/20/2022, Historical Med cholecalciferol (Vitamin D-3) 125 MCG (5000 UT) tablet Take 2,000 Units by mouth daily., Historical Med FLUoxetine (PROzac) 20 MG capsule Take 60 mg by mouth daily., Starting Mon09/23/2022, Historical Med fluticasone (Flonase) 50 MCG/ACT nasal spray Administer 2 sprays into each nostril Daily as needed for allergies., Starting Mon02/22/2022, Historical Med Invega Sustenna 39 MG/0.25ML suspension prefilled syringe Inject 39 mg into the shoulder, thigh, or buttocks every 30 (thirty) days., Starting Mon09/23/2022, Historical Med lamoTRIgine (LaMICtal) 25 MG tablet Take 50 mg by mouth daily., Starting Mon11/07/2022, Historical Med lisinopril 20 MG tablet Take 20 mg by mouth daily., Starting Mon11/08/2022, Historical Med Loratadine 10 MG capsule Take 10 mg by mouth daily., Historical Med Multiple Vitamin (High Potency Multivitamin) tablet Take 1 tablet by mouth daily., Starting Mon09/27/2022, Historical Med nystatin (Mycostatin) 521902 UNIT/GM powder Apply 1 Application topically 2 times daily. Under breasts, Historical Med Omeprazole 20 MG tablet delayed-release Starting Mon04/26/2023, Historical Med ondansetron (Zofran) 4 MG tablet Take 4 mg by mouth every 6 hours as needed for nausea or vomiting., Historical Med Allergies Allergen Reactions Sulfa Antibiotics Itching and Swelling Other reaction(s): Other: See Comments Facial swelling Milk [Milk (Cow)] Other Abdominal bloating I have reviewed the history above as provided by nursing notes. Physical Exam ED Triage Vitals [05/25/23 2242] Temp Heart Rate Resp BP 37.2 C (98.9 F) 67 16 (!) 163/111 SpO2 Temp Source Heart Rate Source Patient Position 93 % Oral -- -- BP Location FiO2 (%) -- -- GENERAL: The patient appears nourished and normally developed. Vital signs as documented. EYES: PERRL. No scleral icterus or orbital trauma noted. HEENT: Mucous membranes moist. Nares patent without copious rhinorrhea. LUNGS: Lungs are clear to auscultation, without any respiratory distress. CARDIAC: Rhythm is regular. No murmur appreciated ABDOMEN: Nontender, soft, with no obvious masses, and no peritoneal signs. EXTREMITIES: Non edematous, with no obvious deformities. SKIN: There is an area of poorly circumscribed erythema to the left lateral arm. This is inferior to the area of previous injection site from flu vaccination. Good color, with no significant rashes. No pallor. NEURO: No obvious neurological deficits, normal sensation and strength bilaterally. Diagnostics Labs: Results for orders placed or performed during the hospital encounter of 03/02/23 SARS-CoV-2 Antigen Specimen: Nasal; Swab Result Value Ref Range SARS-CoV-2 Antigen Negative Negative Protime-INR Result Value Ref Range PROTHROMBIN TIME 10.3 9.0 - 12.0 s INR 1.0 0.9 - 1.1 Basic metabolic panel Result Value Ref Range SODIUM 132 (L) 135 - 145 mmol/L POTASSIUM 4.7 3.5 - 5.1 mmol/L CHLORIDE 105 98 - 107 mmol/L CARBON DIOXIDE 23 22 - 30 mmol/L UREA NITROGEN 21 (H) 7 - 17 mg/dL CREATININE 0.88 0.52 - 1.04 mg/dL GLUCOSE 141 (H) 70 - 100 mg/dL CALCIUM 8.7 8.4 - 10.4 mg/dL ANION GAP 5 3 - 13 mmol/L eGFR 69.9 >60.0 mL/min/1.73m*2 CBC auto differential Result Value Ref Range Auto WBC 6.7 3.6 - 10.7 10*3/uL RBC 4.27 3.8 - 5.20 10*6/uL Hemoglobin 13.2 11.7 - 16.0 g/dL Hematocrit 39.9 35.0 - 47.0 % MCV 93.4 80.0 - 98.0 fL MCH 30.8 26.0 - 34.0 pg MCHC 33.0 32.0 - 36.0 % RDW 13.2 11.5 - 14.5 % Platelets 168 140 - 440 10*3/uL MPV 7.6 7.4 - 12.4 fL nRBC 0.1 0.0 - 2.0 /100 WBCs Neutrophils Relative 93.3 (H) 40.0 - 80.0 % Lymphocytes Relative 5.5 (L) 20.0 - 40.0 % Monocytes Relative 1.0 (L) 2.0 - 10.0 % Eosinophils Relative 0.0 (L) 1.0 - 6.0 % Basophils Relative 0.2 0.0 - 2.0 % Neutrophils Absolute 6.2 1.8 - 7.0 10*3/uL Lymphocytes Absolute 0.4 (L) 1.0 - 4.3 10*3/uL Monocytes Absolute 0.1 0.0 - 0.8 10*3/uL Eosinophils Absolute 0.0 0.0 - 0.5 10*3/uL Basophils Absolute 0.0 0.0 - 0.2 10*3/uL CBC auto differential Result Value Ref Range Auto WBC 5.6 3.6 - 10.7 10*3/uL RBC 4.15 3.8 - 5.20 10*6/uL Hemoglobin 12.9 11.7 - 16.0 g/dL Hematocrit 39.1 35.0 - 47.0 % MCV 94.2 80.0 - 98.0 fL MCH 31.2 26.0 - 34.0 pg MCHC 33.1 32.0 - 36.0 % RDW 13.3 11.5 - 14.5 % Platelets 151 140 - 440 10*3/uL MPV 7.3 (L) 7.4 - 12.4 fL nRBC 0.0 0.0 - 2.0 /100 WBCs Neutrophils Relative 80.6 (H) 40.0 - 80.0 % Lymphocytes Relative 12.1 (L) 20.0 - 40.0 % Monocytes Relative 5.0 2.0 - 10.0 % Eosinophils Relative 2.1 1.0 - 6.0 % Basophils Relative 0.2 0.0 - 2.0 % Neutrophils Absolute 4.5 1.8 - 7.0 10*3/uL Lymphocytes Absolute 0.7 (L) 1.0 - 4.3 10*3/uL Monocytes Absolute 0.3 0.0 - 0.8 10*3/uL Eosinophils Absolute 0.1 0.0 - 0.5 10*3/uL Basophils Absolute 0.0 0.0 - 0.2 10*3/uL Basic metabolic panel Result Value Ref Range SODIUM 143 135 - 145 mmol/L POTASSIUM 3.6 3.5 - 5.1 mmol/L CHLORIDE 111 (H) 98 - 107 mmol/L CARBON DIOXIDE 25 22 - 30 mmol/L UREA NITROGEN 14 7 - 17 mg/dL CREATININE 0.80 0.52 - 1.04 mg/dL GLUCOSE 139 (H) 70 - 100 mg/dL CALCIUM 9.0 8.4 - 10.4 mg/dL ANION GAP 7 3 - 13 mmol/L eGFR 78.4 >60.0 mL/min/1.73m*2 CBC auto differential Result Value Ref Range Auto WBC 4.8 3.6 - 10.7 10*3/uL RBC 3.94 3.8 - 5.20 10*6/uL Hemoglobin 12.4 11.7 - 16.0 g/dL Hematocrit 37.8 35.0 - 47.0 % MCV 96.0 80.0 - 98.0 fL MCH 31.5 26.0 - 34.0 pg MCHC 32.9 32.0 - 36.0 % RDW 13.6 11.5 - 14.5 % Platelets 183 140 - 440 10*3/uL MPV 7.8 7.4 - 12.4 fL nRBC 0.1 0.0 - 2.0 /100 WBCs Neutrophils Relative 63.9 40.0 - 80.0 % Lymphocytes Relative 21.9 20.0 - 40.0 % Monocytes Relative 10.3 (H) 2.0 - 10.0 % Eosinophils Relative 3.3 1.0 - 6.0 % Basophils Relative 0.6 0.0 - 2.0 % Neutrophils Absolute 3.0 1.8 - 7.0 10*3/uL Lymphocytes Absolute 1.0 1.0 - 4.3 10*3/uL Monocytes Absolute 0.5 0.0 - 0.8 10*3/uL Eosinophils Absolute 0.2 0.0 - 0.5 10*3/uL Basophils Absolute 0.0 0.0 - 0.2 10*3/uL Basic metabolic panel Result Value Ref Range SODIUM 141 135 - 145 mmol/L POTASSIUM 4.3 3.5 - 5.1 mmol/L CHLORIDE 109 (H) 98 - 107 mmol/L CARBON DIOXIDE 26 22 - 30 mmol/L UREA NITROGEN 24 (H) 7 - 17 mg/dL CREATININE 0.87 0.52 - 1.04 mg/dL GLUCOSE 89 70 - 100 mg/dL CALCIUM 9.1 8.4 - 10.4 mg/dL ANION GAP 6 3 - 13 mmol/L eGFR 70.9 >60.0 mL/min/1.73m*2 CBC auto differential Result Value Ref Range Auto WBC 5.8 3.6 - 10.7 10*3/uL RBC 4.29 3.8 - 5.20 10*6/uL Hemoglobin 13.5 11.7 - 16.0 g/dL Hematocrit 41.1 35.0 - 47.0 % MCV 95.8 80.0 - 98.0 fL MCH 31.5 26.0 - 34.0 pg MCHC 32.9 32.0 - 36.0 % RDW 13.5 11.5 - 14.5 % Platelets 193 140 - 440 10*3/uL MPV 7.3 (L) 7.4 - 12.4 fL nRBC 0.1 0.0 - 2.0 /100 WBCs Neutrophils Relative 66.8 40.0 - 80.0 % Lymphocytes Relative 21.6 20.0 - 40.0 % Monocytes Relative 8.7 2.0 - 10.0 % Eosinophils Relative 2.4 1.0 - 6.0 % Basophils Relative 0.5 0.0 - 2.0 % Neutrophils Absolute 3.9 1.8 - 7.0 10*3/uL Lymphocytes Absolute 1.3 1.0 - 4.3 10*3/uL Monocytes Absolute 0.5 0.0 - 0.8 10*3/uL Eosinophils Absolute 0.1 0.0 - 0.5 10*3/uL Basophils Absolute 0.0 0.0 - 0.2 10*3/uL Basic metabolic panel Result Value Ref Range SODIUM 141 135 - 145 mmol/L POTASSIUM 3.9 3.5 - 5.1 mmol/L CHLORIDE 109 (H) 98 - 107 mmol/L CARBON DIOXIDE 23 22 - 30 mmol/L UREA NITROGEN 26 (H) 7 - 17 mg/dL CREATININE 0.86 0.52 - 1.04 mg/dL GLUCOSE 93 70 - 100 mg/dL CALCIUM 9.1 8.4 - 10.4 mg/dL ANION GAP 9 3 - 13 mmol/L eGFR 71.9 >60.0 mL/min/1.73m*2 Radiographs: No orders to display EMERGENCY DEPARTMENT COURSE and DIFFERENTIAL DIAGNOSIS/MDM: Vitals: Vitals: 05/25/23 2242 BP: (!) 163/111 Pulse: 67 Resp: 16 Temp: 37.2 C (98.9 F) TempSrc: Oral SpO2: 93% The patient presented with a chief complaint of left arm redness. Vital signs reviewed. Examination does reveal erythema but no other skin findings including any bullae, edema, open lesions. Differential considered includes cellulitis, allergic reaction. Patient currently taking antihistamines and I feel that this would adequately treat allergic reaction. I do feel steroids are required. However possibility of cellulitis is still considered so I will start patient on Keflex. She will take this 4 times per day for a week. I recommend she follow-up with her primary care doctor. She states understand with plan and she was discharged home. Diagnoses as of 05/26/23 0245 Left arm cellulitis ED Medications managed: Medications cephalexin (Keflex) capsule 500 mg (500 mg Oral Given 05/25/23 6512) Patients symptoms are consistent with sepsis, severe sepsis or septic shock (if yes, use ".sepsiscoremeasure") - no Final Impression 1. Left arm cellulitis DISPOSITION discharge Comment: Please note this report has been produced using speech recognition software and may contain errors related to that system including errors in grammar, punctuation, and spelling, as well as words and phrases that may be inappropriate. If there are any questions or concerns please feel free to contact the dictating provider for clarification. Humberto Ghosh DO [facility] Humberto Ghosh DO 05/26/[address] [facility] 05-12-2023 Telephone encounter Note Patients mary jane Wellington called in with concerns about Pily And some swallowing issues Please cb [phone] [facility] 05-12-2023 Miscellaneous Notes Patients mary jane Wellington called in with concerns about Pily And some swallowing issues Please [phone] documented in this encounter [facility] 03-10-2023 Nurse Note Report given to facility nurse. IV taken out, dressing intact; no complications. 1406 AVS, eMAR report provided to transport staff. [facility] 03-10-2023 Nurse Note Report given to facility nurse. IV taken out, dressing intact; no complications. 1406 AVS, eMAR report provided to transport staff. documented in this encounter [facility] 03-10-2023 Note Formatting of this n ote might be different from the original. Transport arranged for 1330 today to transfer pt to [place]. RN, US, TCC, pt and [place] notified. [facility] 03-10-2023 Note Formatting of this n ote might be different from the original. Transport arranged for 1330 today to transfer pt to [place]. RN, US, TCC, pt and [place] notified. [facility] 03-10-2023 Miscellaneous Notes Transport arranged for 1330 today to transfer pt to [place]. RN, US, TCC, pt and [place] notified. [facility] reviewed careport status of auth- still pending with [facility]. Will follow and assist with DC and transportation. Discharge med list and MAR information transmitted to SNF - [place] via Careport per TCC request. [id number] completed in HENS. Patient Choice Patient Name: PILY BARNES Date of : 1950 All Providers Sent Referral Name: [facility] Phone: [phone] Address: [address] [place] [id number] Name: [employer] Address: [address] [place] [address] Rec'd careport message that pts SNF [facility] [place] is able to accept. Task sent to [facility] automotive tire testing supervisor, Melissa Lowe requesting precert with [facility] Medicare today. Awaiting insurance determination. Referral placed to [facility] [place] [employer] via Careport per TCC request. Await review and response regarding ability to accept. TCC notified. Images from the original note were not included. Care Management Progress Note TCC met w/pt to discuss DCP after P2P denial upheld. Pt requested SNF referral to [facility] and [facility]. Task sent to [facility] for above referrals. PT eval current 03/08- recommending SNF. Therapy dept called and requested updated OT for precert today. Active DC order noted. Discharge Milestones and Delays Expected Date/Time: 03/10/2023 Afternoon Disposition: Inpatient Rehab Facility Discharge Milestones Completed Place discharge order Complete med reconciliation Case mgmt discharge readiness Clinical Stability Diagnsotic Workup Expected Discharge History Expected Date/Time Set By Reviewed At 03/10/2023 Afternoon LORRAINE Elizabeth 03/09/2023 9:28 AM auth pending 03/08/2023 Afternoon Marcello Castro RN 03/08/2023 11:17 AM 03/08/2023 Afternoon Marcello Castro RN 03/08/2023 8:08 AM 03/06/2023 Afternoon Carlton Hsu PA-C 03/06/2023 10:54 AM 03/07/2023 Celena Maria RN 03/06/2023 10:17 AM 03/04/2023 Mag Middleton RN 03/03/2023 7:35 AM 03/04/2023 Cee Biggs APRN - BEATA 03/02/2023 3:10 PM 03/04/2023 Cee Biggs APRN - HEAD USHER 03/02/2023 1:22 PM 03/04/2023 Cee Biggs APRN - HEAD USHER 03/02/2023 9:02 AM Length of Stay (Days): 7 GMLOS: 2.6 Images from the original note were not included. Care Management Progress Note P2P denied for [facility]. SNF list given to pt with explanation of 5 star rating and [facility]. Pt would like to discuss with family. TCC will F/U for choices. Discharge Milestones and Delays Expected Date/Time: 03/08/2023 Afternoon Disposition: Inpatient Rehab Facility Transport status: No current request Discharge Milestones Place discharge order Complete med reconciliation Case mgmt discharge readiness Clinical Stability Diagnsotic Workup Expected Discharge History Expected Date/Time Set By Reviewed At 03/08/2023 Afternoon Marcello Castro RN 03/08/2023 8:08 AM auth pending 03/06/2023 Afternoon Carlton Hsu PA-C 03/06/2023 10:54 AM 03/07/2023 Celena Maria RN 03/06/2023 10:17 AM 03/04/2023 Mag Middleton RN 03/03/2023 7:35 AM 03/04/2023 Cee Biggs APRN - BEATA 03/02/2023 3:10 PM 03/04/2023 Cee Biggs APRN - BEATA 03/02/2023 1:22 PM 03/04/2023 Cee Biggs APRN - BEATA 03/02/2023 9:02 AM Length of Stay (Days): 6 GMLOS: 2.6 Problem: Pain - Adult Goal: Verbalizes/displays adequate comfort level or baseline comfort level 03/08/2023930 by Meagan Jurado RN Outcome: Completed 03/08/2023929 by Meagan Jurado RN Outcome: Progressing Problem: Safety - Adult Goal: Free from fall injury 03/08/2023930 by Meagan Jurado RN Outcome: Completed 03/08/2023929 by Meagan Jurado RN Outcome: Progressing Problem: Discharge Planning Goal: Discharge to home or other facility with appropriate resources 03/08/2023930 by Meagan Jurado RN Outcome: Completed 03/08/2023929 by Meagan Jurado RN Outcome: Progressing Problem: Skin/Tissue Integrity - Adult Goal: Incisions, wounds, or drain sites healing without S/S of infection 03/08/2023930 by Meagan Jurado RN Outcome: Completed 03/08/2023929 by Meagan Jurado RN Outcome: Progressing Problem: Musculoskeletal - Adult Goal: Return mobility to safest level of function 03/08/2023930 by Meagan Jurado RN Outcome: Completed 03/08/2023929 by Meagan Jurado RN Outcome: Progressing Problem: Knowledge Deficit Goal: Patient/family/caregiver demonstrates understanding of disease process, treatment plan, medications, and discharge instructions 03/08/2023930 by Meagan Jurado RN Outcome: Completed 03/08/2023929 by Meagan Jurado RN Outcome: Progressing Problem: Potential for Compromised Skin Integrity Goal: Skin Integrity is Maintained or Improved 03/08/2023930 by Meagan Jurado RN Outcome: Completed 03/08/2023929 by Meagan Jurado RN Outcome: Progressing Goal: Nutritional status is improving 03/08/2023930 by Meagan Jurado RN Outcome: Completed 03/08/2023929 by Meagan Jurado RN Outcome: Progressing Problem: Urinary Incontinence Goal: Perineal skin integrity is maintained or improved 03/08/2023930 by Meagan Jurado RN Outcome: Completed 03/08/2023929 by Meagan Jurado RN Outcome: Progressing Received secure chat from [facility] Insurance is requesting P2P for [place] by 11:30 am March 08. [phone] option 5. Ref# [id number]. Need member ID, name, Ranjeet Fariarefugio MORENO HEAD USHER was on secure chat, responded she will do tomorrow. . SW catalyst concentration operator: Received secure chat, from RN asking if auth back for [facility]. Called Amy [facility] hosp[facility] community liaison. Amy indicated auth is not back, anticipate tomorrow. Sent message back to RN, no auth yet, looking at tomorrow as insurance closed for holiday today.. . Problem: Pain - Adult Goal: Verbalizes/displays adequate comfort level or baseline comfort level Outcome: Progressing Problem: Safety - Adult Goal: Free from fall injury Outcome: Progressing Problem: Discharge Planning Goal: Discharge to home or other facility with appropriate resources Outcome: Progressing Problem: Skin/Tissue Integrity - Adult Goal: Incisions, wounds, or drain sites healing without S/S of infection Outcome: Progressing Problem: Musculoskeletal - Adult Goal: Return mobility to safest level of function Outcome: Progressing Problem: Knowledge Deficit Goal: Patient/family/caregiver demonstrates understanding of disease process, treatment plan, medications, and discharge instructions Outcome: Progressing Problem: Potential for Compromised Skin Integrity Goal: Skin Integrity is Maintained or Improved Outcome: Progressing Goal: Nutritional status is improving Outcome: Progressing Problem: Urinary Incontinence Goal: Perineal skin integrity is maintained or improved Outcome: Progressing The patient is Moderately Stable - Low risk of patient condition declining or worsening The patient's goals for the shift include walk around in the room The clinical goals for the shift include PAIN CONTROL, increase mobility Over the shift, the patient did not make progress toward the following goals. Barriers to progression include pain and mobility. Recommendations to address these barriers include work with physical therapy and ambulation around the room TID. Problem: Pain - Adult Goal: Verbalizes/displays adequate comfort level or baseline comfort level Outcome: Progressing Problem: Safety - Adult Goal: Free from fall injury Outcome: Progressing Problem: Discharge Planning Goal: Discharge to home or other facility with appropriate resources Outcome: Progressing Problem: Skin/Tissue Integrity - Adult Goal: Incisions, wounds, or drain sites healing without S/S of infection Outcome: Progressing Discharge med list information transmitted to [facility] per TCC request. Still awaiting insurance auth, discharge order noted in Epic. Will need auth prior to discharge. [facility] tasked to send 24 hour Mar and DC paperwork. [facility] insurance requested updated notes this AM and requested information was sent over. Images from the original note were not included. Care Management Progress Note Pt remains on H6, PT OT rec IPR. Insurance auth pending for [facility]. On Ivf and Na 132, Neuro following. Will anticipate discharge to [facility] once auth is obtained, TCC to assist and follow as needed. Discharge Milestones and Delays Expected Date/Time: 03/06/2023 Afternoon Disposition: Inpatient Rehab Facility Transport status: No current request Discharge Milestones Place discharge order Complete med reconciliation Case mgmt discharge readiness Clinical Stability Diagnsotic Workup Expected Discharge History Expected Date/Time Set By Reviewed At 03/06/2023 Afternoon Carlton Hsu PA-C 03/06/2023 10:54 AM auth pending 03/07/2023 Celena Mraia RN 03/06/2023 10:17 AM 03/04/2023 Mag Middleton RN 03/03/2023 7:35 AM 03/04/2023 TIFFANIE Bush CNP 03/02/2023 3:10 PM 03/04/2023 TIFFANIE Bush CNP 03/02/2023 1:22 PM 03/04/2023 TIFFANIE Bush CNP 03/02/2023 9:02 AM Length of Stay (Days): 4 GMLOS: 2.6 [facility] precert pending for [facility]. Problem: Pain - Adult Goal: Verbalizes/displays adequate comfort level or baseline comfort level Outcome: Progressing Problem: Safety - Adult Goal: Free from fall injury Outcome: Progressing Problem: Discharge Planning Goal: Discharge to home or other facility with appropriate resources Outcome: Progressing Problem: Skin/Tissue Integrity - Adult Goal: Incisions, wounds, or drain sites healing without S/S of infection Outcome: Progressing Problem: Musculoskeletal - Adult Goal: Return mobility to safest level of function Outcome: Progressing Problem: Knowledge Deficit Goal: Patient/family/caregiver demonstrates understanding of disease process, treatment plan, medications, and discharge instructions Outcome: Progressing Problem: Potential for Compromised Skin Integrity Goal: Skin Integrity is Maintained or Improved Outcome: Progressing Goal: Nutritional status is improving Outcome: Progressing Problem: Urinary Incontinence Goal: Perineal skin integrity is maintained or improved Outcome: Progressing The patient is Moderately Stable - Low risk of patient condition declining or worsening The patient's goals for the shift include PAIN CONTROL The clinical goals for the shift include PAIN CONTROL Problem: Pain - Adult Goal: Verbalizes/displays adequate comfort level or baseline comfort level Outcome: Progressing Flowsheets (Taken 03/04/2023 09) Verbalizes/displays adequate comfort level or baseline comfort level: Encourage patient to monitor pain and request assistance Assess pain using appropriate pain scale Administer analgesics based on type and severity of pain and evaluate response Implement non-pharmacological measures as appropriate and evaluate response Problem: Safety - Adult Goal: Free from fall injury Outcome: Progressing Flowsheets (Taken 03/04/2023 09) Free from fall injury: Instruct family/caregiver on patient safety Note: Side rails upx2, bed low, brakes on, call light in reach. The patient is Moderately Stable - Low risk of patient condition declining or worsening The patient's goals for the shift include PAIN CONTROL The clinical goals for the shift include PAIN CONTROL Referral placed to [facility] per TCC request. Await review and response regarding ability to accept. TCC notified. Addendum to earlier note: Pt has been evaluated by PT with recommendation of SNF. I asked [facility] liaison to evaluate pt for rehab and she is appropriate. I spoke with pt and her son regarding discharge options. Pt would like to try for [facility]. Liaison Marixa made aware. Will ask SKIP TRACER to send referral via [facility]. Pt awaiting OT eval so precert can be started. Care Managment Initial Assessment Date: 03/03/2023 Patient Name: Pily Barnes : 1950 Patient Information Source of Information: Patient Cognition/Language: WFL - Within Functional Limits Permission given to speak with patient digital sales representative/caregiver as indicated: Confirmation of Payer with patient/family: Yes Payer Name: U[employer] Medicare [place]: No Confirmation of Primary Care Physician: Confirmed PCP Name: Dr. Kenia Mckenzie Seen in last 2 years?: Yes Primary Caregiver: Other (Comment) (staff at assisted living facility) If assistance needed, confirmed caregiver ready, willing and able to care for patient at discharge: Confirmed with: Living Arrangements Current Residence: Private Residence (Assisted Living) Number of Floors 1 Number of Entry Steps: Bed/Bath Levels: Both first floor Facility: Assisted Living Facility Name: Plan to Return: Lives with: Other (Comment) (AL) Support Systems: Family members Activities of Daily Living Ambulation: Assistance (uses walker or w/c) Bathing/Dressing: Assistance Elimination/Continence/Toileting: Assistance Feeding: Independent Who Assists with Activities of Daily Living: AL staff Instrumental Activities of Daily Living Prescription Coverage: Yes Pharmacy Used: [facility] Medication Management: Transportation/Shopping: Assistance Provider Transportation/Shopping Assistance Provider Name: family Transportation Mode: Needs Assistance with Transportation at Discharge: Yes Meal Preparation: Assistance Provider Laundry/Cleaning: Assistance Provider Finances/Bill Paying: Assistance Provider Communication: Independent Types of Care Services/Equipment Utilized Care Services: Dialysis Type: Durable Medical Equipment: Walker, Wheelchair (standard or power) Patient's Goal/Discharge Plan Patient expects to be discharged to: return to [place] with possible home care Discharge Planning Actions: Continue to follow Patient's Choice Rights and [employer] and Collaborative Relationships Disclosed as Indicated for Post-Acute Care: Interdisciplinary Team Engagement: Social Work Referral for: Additional Information: 72 yo female admitted to for surgery 03/02/23: C3-6 Anterior cervical decompression and fusion. Pt has surgical neck drain and wearing c-collar. PT/OT evals ordered. Met with pt; explained role of tcc. Pt lives at [facility] in [place]. She states she does need assistance with adls and uses walker and w/c at facility. Await PT/OT recommendations and will call facility to verify that she will be able to return at discharge. Mag Middleton RN Wire Inspector following case for Discharge Needs. Patient family/visitor updated by RN at this time. OPERATIVE NOTE Patient Name: Pily Barnes : 1950 DATE OF PROCEDURE: 03/02/2023 SURGEON: Alonso Mcgill MD HOLTER SCANNING TECHNICIAN: Cee Biggs CNP PREOPERATIVE DIAGNOSES: Cervical stenosis, cervical myelopathy POSTOPERATIVE DIAGNOSES: Same PROCEDURE: C3-C4, C4-C5, C5-C6 anterior cervical decompression and fusion ANESTHESIA: General ESTIMATED BLOOD LOSS: 25 INDICATION FOR PROCEDURE: Mrs. Barnes is a 72-year-old female who presented with symptoms of cervical myelopathy. MRI showed degenerative changes C3-C4, C4-C5, C5-C6 disc osteophyte complexes causing cord compression and signal change. Risks and benefits of ACDF were discussed with her, including spinal cord injury and swallowing difficulties. She wished to proceed. DESCRIPTION OF PROCEDURE: Patient was brought to the operating room general endotracheal seizure was induced. She had spinal cord monitoring leads placed. She was lying supine on operative table her head rested on a donut. Her arms were tucked and padded her side appropriately shoulders were gently taped down to allow better visualization of cervical spine via C arm. C-arm was brought in field approximate the C3-C4 level, this is marked surgical marker and she was prepped and draped in normal sterile fashion. After appropriate timeout identifying the patient, the level of surgery type surgery, 0.5% Marcaine with epinephrine was instilled future incision. Skin incision was made to level platysma, supraplatysmal dissection was carried out. The platysma was opened vertically near the midline the anterior border of the sternocleidomastoid was identified the carotid artery was identified a Lateral exposure. When the anterior cervical spine was reached a spinal needle was placed in the disc space and the C-arm shot taken to identify it, it was the C3-C4 level, this was marked with the Bovie longus coli muscles were cleaned off the inferior portion of C3 all of C4 all of C5 superior portion of C6. Retractors put in place. Roann pins placed in C3-C4-C5 and C6 gentle stretch placed on him then the discectomies were carried under the microscope with pituitary drill 1 and 2 Mindarrelli Kerrisons and the up-biting curette. The PLL was reached and resected across the span of the disc space. There were disc osteophyte complexes at each level causing cord compression as well as foraminal stenosis. The PLL was reached and resected across the disc space at each level and then the endplates were prepared with rasp and ring curette. 7 mm titanium cage stuffed with DBX was placed at C3-C4, C4-C5, C5-C6. Following this an anterior cervical plate by [employer] was placed with 15 mm screws. C-arm shot was taken to confirm screws were in bone. After this the wound was doe irrigated out retractors removed the wound allowed to sit for several minutes to confirm there is good hemostasis. Then a 10 Niuean round POLO drain was placed, and the platysma closed with interrupted 3-0 Vicryl sutures followed by subcuticular up to 3-0 Vicryl sutures with Mastisol and Steri-Strips on the skin. Sterile dressings placed. She was extubated taken recovery in stable fashion. All her spinal cord signals were the same or improved at the end of the case compared to beginning. There is no neurosurgical resident available to assist the case, the nurse practitioner assisted to provide suction retraction assistance with opening and closed allow the case to be performed safely. Date: 03/02/2023 Location: [facility] OR Name: Pily Barnes, : 1950, Diagnosis Pre-op Diagnosis * Disease of spinal cord, unspecified (HCC) [G95.9] Post-op Diagnosis * Disease of spinal cord, unspecified (HCC) [G95.9] Procedures C3-C6 ANTERIOR CERVICAL DECOMPRESSION, FUSION 27159 - KS ARTHRD ANT INTERBODY DECOMPRESS CERVICAL BELW C2 KS ARTHRD ANT INTERDY CERVCL BELW C2 EA ADDL NTRSPC [16507] KS ANTERIOR INSTRUMENTATION 4-7 VERTEBRAL SEGMENTS [23790] Surgeons * Alonso Mcgill - Primary Procedure Summary Anesthesia: General ASA: III Estimated Blood Loss: 25 Drains: Closed/Suction Drain Neck Bulb (Active) Implants - Medtronic Type Name Action Serial No. Bone BONE BMP PUTTY I-FACTOR 2.5CC - [id number] Implanted Bone GRAFT DBM PUTTY BIO 2.5CC VIAL - [id number] Implanted Spinal Hardware CAGE SPINAL [place] 6DEG 7MM - [id number] Implanted Spinal Hardware CAGE SPINAL [place] 6DEG 7MM - [id number] Implanted Spinal Hardware CAGE SPINAL [place] 6DEG 7MM - [id number] Implanted Plate 48MM PLATE Implanted Spinal Hardware SCREW BN VAS SD 3.5X15 - [id number] Implanted Staff: Switching Operator: Cee Cisneros RN Nurse Practitioner: Cee Biggs APRN - HEAD USHER Relief Switching Operator: Randi Zavala RN Relief Scrub: Helga Matos Scrub Person: Kenia Diaz RN Findings: See op note Complications: None; patient tolerated the procedure well. Specimens Collected: Order Name Source Comment Collection Info Order Time POTASSIUM WITH MG REFLEX For patients on dialysis to draw potassium day of surgery 03/02/2023 9:02 AM PROTHROMBIN TIME If patient on coumadin within 4 days prior. 03/02/2023 9:02 AM Wound Class: Class I: Clean Blood Products: None Prophylactic Antibiotics: Procedure appropriate prophylactic antibiotic(s) given within 1 hour of surgical incision (two hours if receiving Vancomycin or flouroquinolone) documented in this encounter [facility] 03-10-2023 History of Present illness Narrative Department of Neurosurgery Progress Note SUBJECTIVE: no acute events overnight. Pt up in chair and doing well overall. Authorization received for SNF. OBJECTIVE Physical BP (!) 146/87 Pulse 71 Temp 37.2 C (98.9 F) (Temporal) Resp 18 Ht 5' (1.524 m) Wt 160 lb (72.6 kg) SpO2 92% BMI 31.25 kg/m NEUROLOGIC: A&O x3 VÁZQUEZ BUE strength 4+/5, emiliana weekend anchor 5/5 Sensation intact Dressing C/D/I with steri strips ASSESSMENT AND PLAN 72 y.o. female status post C3-6 ACDF post op day # 8 Pt progressing as expected Continue with PT/OT, encourage ambulation DC to SNF today, covid test pending Discharge instructions given Follow up with Dr Mcgill Physical Therapy Facility/Department: [facility] Physical Therapy Daily Treatment Note NAME: Pily Barnes : 1950 Date of Service: 03/09/2023 Discharge Recommendations: Intermediate Facility PT Equipment Recommendations Equipment Needed: No Other: tbd Assessment Requires PT Follow-Up: Yes Assessment: Pt requires min assist for ambulation. Verbal cues needed for hand placement for transfers and to feel for chair and line up before starting to sit in chair. No PT goals met this session. Recommend SNF at discharge, Performance Deficits/Impairments: Decreased functional mobility , Decreased strength, Decreased balance, Decreased ADL status, Decreased endurance, Decreased safe awareness, Decreased sensation Activity Tolerance Comment: Limited by fatigue Treatment Initiated : cont education on donning/doffing brace Patient Diagnosis(es): The encounter diagnosis was Cervical stenosis of spinal canal. has a past medical history of Anxiety, Aspirin long-term use, Asthma, Bipolar 1 disorder (HCC), Chronic kidney disease, Depression, Difficulty walking, High blood pressure, Lack of coordination, Mitral valve insufficiency, Muscle weakness, Presence of intraocular lens, Repeated falls, Rhabdomyolysis, Sleep apnea, and Traumatic subarachnoid hemorrhage without loss of consciousness (HCC). has a past surgical history that includes Thyroid surgery (N/A); Hysterectomy; and Cervical spine surgery (03/02/2023). Restrictions Restrictions/Precautions Restrictions/Precautions: Fall Risk, Surgical Protocols Required Braces or Orthoses?: Yes Required Braces or Orthoses Cervical: c-collar Spinal Other: wear brace when active and OOB Position Activity Restriction Spinal Precautions: C-spine precautions Spinal Precautions: . Other position/activity restrictions: . Vision/Hearing Subjective General Chart Reviewed: Yes Patient Assessed for Rehabilitation Services: Yes Response To Previous Treatment: Patient with no complaints from previous session. Family / Caregiver Present: No Diagnosis: cervical stenosis of spinal canal, resultant C3-C6 ACDF Follows Commands: Within Functional Limits Other (Comment): Follows 1-2 step commands with increased time, delayed responses General Comment Comments: TANK PROCESSOR continues to note Parkinsonian gait pattern w/ intermittent festinations; no resting tremors noted. Increased time required for gait Subjective Subjective: Pt sitting up in the chair, no c-collar on upon entry. donned at start of session. Patient Stated Goal: Pain Assessment Pain Assessment: 0-10 Pain Score: 3 Pain Location: Neck Cognition/Orientation Overall Cognitive Status: WFL Cognition Comment: alert and able to follow basic commands Overall Orientation Status: Within Functional Limits Orientation Level: Oriented X4 Objective Bed mobility Comment: pt sitting up in the chair Transfers Sit to Stand: Stand by assistance Stand to sit: Stand by assistance Ambulation Ambulation: Yes Ambulation 1 Surface 1: Level tile Device 1: Rolling walker Assistance 1: Minimum assistance Quality of Gait 1: shuffling, uneven step length, path deviations Quality of Gait Comment 1: Pt presented with festination and parkinsonian type gait, nornadeen KESHIA, shuffling Distance (ft) 1: 50ft x 4 Comments 1: several standing rest breaks. x 1 seated rest breaks. Exercises Quad Sets: BLE AROM x 10reps Heelslides: BLE AROM x 10reps Gluteal Sets: AROM x 10 reps Knee Long Arc Quad: BLE AROM x 10 reps Ankle Pumps: BLE AROM 2 x 10 reps Plan Times per Week: 5-7 Plan Weeks: 4 Current Treatment Recommendations: Strengthening, Balance Training, Functional Mobility Training, Transfer Training, Endurance Training, Gait Training, ADL/Self-care Training, Home Exercise Program, Safety Education & Training, Patient/Caregiver Education & Training, Equipment Evaluation, Education, & procurement Plan Comment: Cont PT POC Safety Safety Devices Safety Devices in Place: Yes Type of Devices: All fall risk precautions in place, Call light within reach, Gait belt, Patient at risk for falls, No alarms engaged upon entry into room, Nurse notified, Left in chair, Chair alarm in place Restraints Restraints Initially in Place: No Outcomes Score AM-PAC Score AM-PAC Inpatient Mobility Raw Score (No Stairs) : 15 Goals Encounter Problems Encounter Problems (Active) Mobility Patient will ambulate 50 feet with modified independence and rolling walker in order to improve safety and independence with mobility. (Progressing) Start: 03/03/23 Expected End: 03/31/23 Pain - Adult Transfers Patient will perform bed mobility with SBA in order to improve independence and prepare for out of bed mobility. (Progressing) Start: 03/03/23 Expected End: 03/31/23 Patient will complete sit to stand transfer with modified independence to wheeled walker in order to improve safety and prepare for out of bed mobility. (Progressing) Start: 03/03/23 Expected End: 03/31/23 Education Education Given To: Patient Education Provided: Goals, Plan of Care, Home Exercise Program, Precautions, Transfer Training, General Safety, Functional Mobility Training, Gait Training Education Provided Comments: Pt educated on donning/doffing c-collar. Cueing required for posterior c-collar. Education Method: Verbal, Demonstration, Teach Back Education Outcome: Verbalized understanding, Continued education needed, Unable to demonstrate understanding Therapy Time Individual Co-treatment Time In 1156 Time Out 1220 Minutes 24 Timed Code Treatment Minutes: 24 Minutes (GT, TP) *PPE per facility policy used during session* Chanel Connell PTA Occupational Therapy Facility/Department: Occupational Therapy Treatment NAME: Pily Barnes : 1950 Date of Service: 03/09/2023 Discharge Recommendations: Intermediate Facility Assessment Assessment: Progressing toward goals. Unsteady gait, needs assist for ADLs. Would benefit from SNF level therapies at discharge. Restrictions [place] collar when up and active Subjective Subjective Subjective: Pt in chair, agrees to OT as requested for insurance pre-cert. No c/o pain. Patient Stated Goal: none stated Objective Grooming/Oral Hygiene Assistance Level: Contact guard assist Skilled Clinical Factors: wash hands at sink UE Dressing Assistance Level: Moderate assistance Skilled Clinical Factors: don [place] collar; pt able to manipulate velcro but dons improperly. Once therapist assists to don, pt able to doff. LE Dressing Assistance Level: Moderate assistance Toileting Assistance Level: Minimal assistance Balance Standing Balance: Minimal assistance (dynamic stand tasks) Functional Mobility Functional Mobility Comments: Funct amb to/from bathroom with min assist, FWW. Fair gait quality, shuffles at times. Toilet Transfers Equipment Used: Grab bars (R side) Toilet Transfer: (minor LOB with turning) Transfers Sit to stand: Minimal assistance (from low chair) Stand to sit: Contact guard assistance Plan Plan Comment: Cont OT per POC Safety Type of devices: No alarms engaged upon entry into room, Call light within reach, Left in chair Outcomes Score AM-PAC Score AM-PAC Inpatient Daily Activity Raw Score: 17 ADL Inpatient CMS G-Code Modifier: CK Goals Encounter Problems Encounter Problems (Active) Dressings Lower Extremities Patient will dress lower body supervision. (Slowly Progressing) Start: 03/03/23 Expected End: 03/31/23 Grooming Grooming standing at sink with FMC component supervision. (Progressing) Start: 03/03/23 Expected End: 03/31/23 Therapeutic Exercise Demo 4 FMC exercises 10 x 1 set min cues for technique. (Not Addressed) Start: 03/03/23 Expected End: 03/31/23 Toileting Patient will complete toileting tasks with supervision. (Progressing) Start: 03/03/23 Expected End: 03/31/23 Education Therapy Time Individual Co-treatment Time In 1054 Time Out 1118 Minutes 24 Timed Code Treatment Minutes: (Funct--1; Self--1) CALLIE Carter Department of Neurosurgery Progress Note SUBJECTIVE: no acute events overnight. Pt up in chair and doing well overall. [facility] denied by insurance, awaiting authorization for SNF. OBJECTIVE Physical BP 130/80 (BP Location: Right arm, Patient Position: Sitting) Pulse 89 Temp 37.2 C (98.9 F) (Temporal) Resp 16 Ht 5' (1.524 m) Wt 160 lb (72.6 kg) SpO2 93% BMI 31.25 kg/m NEUROLOGIC: A&O x3 VÁZQUEZ BUE strength 4+/5, emiliana weekend anchor 5/5 Sensation intact Dressing C/D/I with steri strips ASSESSMENT AND PLAN 72 y.o. female status post C3-6 ACDF post op day # 7 Pt progressing as expected Continue with PT/OT, encourage ambulation Pt ready for DC when authorized for SNF, hopefully later today Nutrition update completed. Chart reviewed. Patient to be monitored and followed by the diet ophthalmology technician. Images from the original note were not included. Hospitalist Progress Note 03/09/[id number]: Please secure chat me for patient care issues. [id number]: Please secure chat [facility] Hospitalist for any issues. Subjective: Admit Date: 03/02/2023 PCP: KENIA MCKENZIE MD Room#: [id number] Interval History: Patient was admitted for elective surgery s/p C3-C6 ACDF. We are consulted for med management Patient was seen and examined this AM. No new complaints or acute overnight events. Denied SRH, pending SNF placement Adult diet Regular @[id number]@ 24HR INTAKE/OUTPUT: Intake/Output Summary (Last 24 hours) at 03/09/2023 0927 Last data filed at 03/09/2023 0600 Gross per 24 hour Intake 100 ml Output -- Net 100 ml Past Medical History: Past Medical History: Diagnosis Date Anxiety Aspirin long-term use history Asthma Bipolar 1 disorder (HCC) Chronic kidney disease Depression Difficulty walking High blood pressure Lack of coordination Mitral valve insufficiency Muscle weakness Presence of intraocular lens Repeated falls Rhabdomyolysis Sleep apnea Traumatic subarachnoid hemorrhage without loss of consciousness ([facility]) LABS: CBC: Recent Labs 03/09/23 0515 WBC 4.8 RBC 3.94 HGB 12.4 HCT 37.8 MCV 96.0 RDW 13.6 PLT 183 BMP: Recent Labs 03/09/23 0515 NA 141 K 4.3 CL 109* CO2 26 BUN 24* CREATININE 0.87 GLUCOSE 89 CALCIUM 9.1 ANIONGAP 6 LIVER PROFILE:No results for input(s): AST, ALT, BILITOT, ALKPHOS, PROT in the last 72 hours. No lab exists for component: LABALBU PT/INR: No results for input(s): PROTIME, INR in the last 72 hours. CARDIAC ENZYMES: No results for input(s): TROPONINI in the last 72 hours. Procalcitonin: No results found for: PROCAL COVID-19 PCR: No results for input(s): COVID19 in the last 72 hours. Objective: Vitals: BP 130/80 (BP Location: Right arm, Patient Position: Sitting) Pulse 89 Temp 37.2 C (98.9 F) (Temporal) Resp 16 Ht 5' (1.524 m) Wt 160 lb (72.6 kg) SpO2 93% BMI 31.25 kg/m Pulse Ox: SpO2 Av.5 % Min: 93 % Max: 94 % Physical Exam Constitutional: Appearance: Normal appearance. Cardiovascular: Rate and Rhythm: Normal rate and regular rhythm. Pulses: Normal pulses. Heart sounds: Normal heart sounds. Pulmonary: Effort: Pulmonary effort is normal. Breath sounds: Normal breath sounds. Skin: General: Skin is warm. Findings: No rash. Neurological: Mental Status: She is alert. Medications: acetaminophen, 650 mg, Oral, q6h amLODIPine, 10 mg, Oral, Daily ARIPiprazole, 5 mg, Oral, Daily buPROPion XL, 150 mg, Oral, Daily cetirizine, 10 mg, Oral, Daily docusate sodium, 100 mg, Oral, BID enoxaparin, 40 mg, SubCUTAneous, Daily FLUoxetine, 60 mg, Oral, Daily lamoTRIgine, 50 mg, Oral, Daily lisinopril, 20 mg, Oral, Daily mometasone-formoterol, 2 puff, Inhalation, BID nystatin, , Topical, BID polyethylene glycol (PEG) 3350, 17 g, Oral, Daily sodium chloride 0.9%, 10 mL, IntraVENous, 2 times per day Assessment S/p C3-C6 ACDF- NS is primary -Pain well controlled -Had BM 03/07--continue with bowel regimen Hyponatremia-resolved. H/o HTN-continue lisinopril 20 mg, increased amlodipine to 10 mg. As needed hydralazine as ordered. Bipolar disorder- continue meds H/o asthma- not in exac, continue prn breathing trt's 6. CKD Stage 2 (GFR 60-89) Plan -DVT prophylaxis: [x] Lovenox [] Heparin [] SCDs [x] Encourage ambulation [] Already on Anticoagulation Advance Directive: Full Code Discharge planning: pending placement, authorization pending- stable from IM standpoint for DC. Extended Emergency Contact Information Primary Emergency Contact: Claudia Barnes Relation: Other Secondary Emergency Contact: Nathanael Barnes Relation: Other Darion Yadav MD Division of Hospitalist Medicine [facility] PAGER: Epic chat Physical Therapy Facility/Department: [facility] Physical Therapy Daily Treatment Note NAME: Pily Barnes : 1950 Date of Service: 03/08/2023 Discharge Recommendations: Intermediate Facility PT Equipment Recommendations Equipment Needed: No Other: tbd Assessment Requires PT Follow-Up: Yes Assessment: Pt presents with the listed deficits and decreased functional mobility. Bed Mobility demo'd ModA. Transfers demo'd SBA. Ambulation to FWW demo'd Daniel with narrow KESHIA and festination gait pattern. Required frequent rest breaks with ambulation. Increased time required for task completion. No LOB noted. Minimal carryover noted following cues for upright posture and to increase KESHIA. Pt able to delbert/doff c-collar with min verbal cues for proper fit. PT goals not met. Recommend SNF at discharge, Performance Deficits/Impairments: Decreased functional mobility , Decreased strength, Decreased balance, Decreased ADL status, Decreased endurance, Decreased safe awareness, Decreased sensation Activity Tolerance Comment: Limited by fatigue Treatment Diagnosis: Weakness Treatment Initiated : cont education on donning/doffing brace Patient Diagnosis(es): The encounter diagnosis was Cervical stenosis of spinal canal. has a past medical history of Anxiety, Aspirin long-term use, Asthma, Bipolar 1 disorder (HCC), Chronic kidney disease, Depression, Difficulty walking, High blood pressure, Lack of coordination, Mitral valve insufficiency, Muscle weakness, Presence of intraocular lens, Repeated falls, Rhabdomyolysis, Sleep apnea, and Traumatic subarachnoid hemorrhage without loss of consciousness (HCC). has a past surgical history that includes Thyroid surgery (N/A); Hysterectomy; and Cervical spine surgery (03/02/2023). Restrictions Restrictions/Precautions Restrictions/Precautions: Fall Risk, Surgical Protocols Required Braces or Orthoses?: Yes Required Braces or Orthoses Cervical: c-collar Spinal Other: wear brace when active and OOB Position Activity Restriction Spinal Precautions: C-spine precautions Spinal Precautions: . Other position/activity restrictions: . Vision/Hearing Subjective General Chart Reviewed: Yes Patient Assessed for Rehabilitation Services: Yes Response To Previous Treatment: Patient with no complaints from previous session. Family / Caregiver Present: No Diagnosis: cervical stenosis of spinal canal, resultant C3-C6 ACDF Follows Commands: Within Functional Limits Other (Comment): Follows 1-2 step commands with increased time, delayed responses General Comment Comments: TANK PROCESSOR continues to note Parkinsonian gait pattern w/ intermittent festinations; no resting tremors noted. Increased time required for gait Subjective Subjective: Pt pleasant and agreeable to PT.Denies pain at rest. RN cleared for session. Patient Stated Goal: Pt wishes to receive more therapy upon discharge, unsure of facility ability to provide assistance for brace management Cognition/Orientation Overall Cognitive Status: WFL Overall Orientation Status: Within Functional Limits Objective Bed mobility Supine to Sit: Moderate assistance Sit to Supine: Unable to assess Scooting: Moderate assistance Comment: Log roll technique with ModA for trunk elevtion and BLE management to EOB. Pt required assist to don c-collar prior to mobility. Transfers Sit to Stand: Stand by assistance Stand to sit: Stand by assistance Comment: x 1 from EOB, x 1 from recliner, x 1 from chair with arms. SBA for all STS with cues for proper hand placement Ambulation Ambulation: Yes Ambulation 1 Surface 1: Level tile Device 1: Rolling walker Assistance 1: Minimum assistance Quality of Gait 1: shuffling, uneven step length, path deviations Quality of Gait Comment 1: Pt presented with festination and parkinsonian type gait, norrow KESHIA, shuffling Distance (ft) 1: 50ft x 4 Comments 1: x 2 standing rest breaks. x 2 seated rest breaks. Balance Comments: Pt able to sit at EOB without Emiliana UE; support. Pt able to delbert/diff c-collar x 2 to practice with Daniel for proper positioning below chin Exercises Quad Sets: BLE AROM x 5 reps Gluteal Sets: AROM x 5 reps Knee Long Arc Quad: BLE AROM x 5 reps Ankle Pumps: BLE AROM 2 x 6 reps Comments: Cues for proper alignment and slow and controled movements. Other exercises Other exercises?: No Plan Times per Week: 5-7 Plan Weeks: 4 Current Treatment Recommendations: Strengthening, Balance Training, Functional Mobility Training, Transfer Training, Endurance Training, Gait Training, ADL/Self-care Training, Home Exercise Program, Safety Education & Training, Patient/Caregiver Education & Training, Equipment Evaluation, Education, & procurement Safety Safety Devices Safety Devices in Place: Yes Type of Devices: All fall risk precautions in place, Call light within reach, Gait belt, Patient at risk for falls, No alarms engaged upon entry into room, Nurse notified, Left in chair Restraints Restraints Initially in Place: No AM-PAC Score AM-PAC Inpatient Mobility Raw Score (No Stairs) : 15 Goals Encounter Problems Encounter Problems (Active) Mobility Patient will ambulate 50 feet with modified independence and rolling walker in order to improve safety and independence with mobility. (Progressing) Start: 03/03/23 Expected End: 03/31/23 Pain - Adult Transfers Patient will perform bed mobility with SBA in order to improve independence and prepare for out of bed mobility. (Progressing) Start: 03/03/23 Expected End: 03/31/23 Patient will complete sit to stand transfer with modified independence to wheeled walker in order to improve safety and prepare for out of bed mobility. (Progressing) Start: 03/03/23 Expected End: 03/31/23 Education Education Given To: Patient Education Provided: Goals, Plan of Care, Home Exercise Program, Precautions, Transfer Training, General Safety, Functional Mobility Training, Gait Training Education Provided Comments: Pt educated on donning/doffing c-collar. Cueing required for posterior c-collar. Education Method: Verbal, Demonstration, Teach Back Education Outcome: Verbalized understanding, Continued education needed, Unable to demonstrate understanding Therapy Time Individual Co-treatment Time In 1111 Time Out 1139 Minutes 28 Timed Code Treatment Minutes: 28 Minutes (GT x 2) TANK PROCESSOR wore PPE in compliance with hospital guidelines and regulation when treating this patient. Lillie Nelson TANK PROCESSOR Department of Neurosurgery Progress Note SUBJECTIVE: no acute events overnight. Pt up in chair and doing well overall. Peer to peer completed and acute rehab denied. OBJECTIVE Physical BP (!) 137/94 (BP Location: Right arm, Patient Position: Sitting) Pulse 89 Temp 36.9 C (98.4 F) (Temporal) Resp 16 Ht 5' (1.524 m) Wt 160 lb (72.6 kg) SpO2 92% BMI 31.25 kg/m NEUROLOGIC: A&O x3 VÁZQUEZ BUE strength 4+/5, emiliana weekend anchor 5/5 Sensation intact Dressing C/D/I with steri strips ASSESSMENT AND PLAN 72 y.o. female status post C3-6 ACDF post op day # 6 Pt progressing as expected Continue with PT/OT, encourage ambulation Currently working on SNF placement if her [facility] is not able to take her back Pt ready for DC when auth and bed available Images from the original note were not included. Hospitalist Progress Note Subjective: Admit Date: 03/02/2023 PCP: KENIA MCKENZIE MD Room#: [id number] Patient is s/p C3-C6 ACDF. We are consulted for med management Patient was seen and examined this AM. She is awake, alert and oriented. Sitting up in a chair at bedside. No new complaints or acute overnight events. Denied SRH, pending SNF placement Adult diet Regular @[id number]@ 24HR INTAKE/OUTPUT: No intake or output data in the 24 hours ending 03/08/23 1130 Past Medical History: Past Medical History: Diagnosis Date Anxiety Aspirin long-term use history Asthma Bipolar 1 disorder (HCC) Chronic kidney disease Depression Difficulty walking High blood pressure Lack of coordination Mitral valve insufficiency Muscle weakness Presence of intraocular lens Repeated falls Rhabdomyolysis Sleep apnea Traumatic subarachnoid hemorrhage without loss of consciousness (HCC) LABS: CBC: Recent Labs 03/06/23 0919 WBC 5.6 RBC 4.15 HGB 12.9 HCT 39.1 MCV 94.2 RDW 13.3 PLT 151 BMP: Recent Labs 03/06/23 0919 NA 143 K 3.6 CL 111* CO2 25 BUN 14 CREATININE 0.80 GLUCOSE 139* CALCIUM 9.0 ANIONGAP 7 LIVER PROFILE:No results for input(s): AST, ALT, BILITOT, ALKPHOS, PROT in the last 72 hours. No lab exists for component: LABALBU PT/INR: No results for input(s): PROTIME, INR in the last 72 hours. CARDIAC ENZYMES: No results for input(s): TROPONINI in the last 72 hours. Procalcitonin: No results found for: PROCAL COVID-19 PCR: No results for input(s): COVID19 in the last 72 hours. Objective: Vitals: BP (!) 137/94 (BP Location: Right arm, Patient Position: Sitting) Pulse 89 Temp 36.9 C (98.4 F) (Temporal) Resp 16 Ht 5' (1.524 m) Wt 160 lb (72.6 kg) SpO2 92% BMI 31.25 kg/m Pulse Ox: SpO2 Av % Min: 92 % Max: 92 % Supplemental O2: O2 Flow Rate (L/min): 2 L/min Patient is alert, awake, oriented x 3 No JVD, surgical incision dressed Heart S1 S2 No murmurs Lungs clear to auscultation Abdomen soft non distended no organomegaly Medications: acetaminophen, 650 mg, Oral, q6h amLODIPine, 10 mg, Oral, Daily ARIPiprazole, 5 mg, Oral, Daily buPROPion XL, 150 mg, Oral, Daily cetirizine, 10 mg, Oral, Daily docusate sodium, 100 mg, Oral, BID enoxaparin, 40 mg, SubCUTAneous, Daily FLUoxetine, 60 mg, Oral, Daily lamoTRIgine, 50 mg, Oral, Daily lisinopril, 20 mg, Oral, Daily mometasone-formoterol, 2 puff, Inhalation, BID nystatin, , Topical, BID polyethylene glycol (PEG) 3350, 17 g, Oral, Daily sodium chloride 0.9%, 10 mL, IntraVENous, 2 times per day Assessment S/p C3-C6 ACDF- NS is primary -Pain well controlled -Had BM 03/07--continue with bowel regimen Hyponatremia-resolved. H/o HTN-continue lisinopril 20 mg, increased amlodipine to 10 mg. As needed hydralazine as ordered. Bipolar disorder- continue meds H/o asthma- not in exac, continue prn breathing trt's Plan - pt stable from medicine stand for discharge -am labs, replace lytes prn -increase activity -DVT prophylaxis: [x] Lovenox [] Heparin [] SCDs [x] Encourage ambulation [] Already on Anticoagulation Advance Directive: Full Code Discharge planning: pending placement, authorization pending Trinidad Rodrigues 03/08/2023 Division of Hospitalist Medicine Inpatient Medical Services/[facility] PAGER: [phone] Peer to peer completed with Dr. Briceno and acute rehab was denied. Insurance recommends SNF. TIFFANIE PARSONS CNP Attempted peer to peer. Physician not available at this time. They are to call me back at there convenience. TIFFANIE PARSONS CNP Images from the original note were not included. Hospitalist Progress Note Subjective: Admit Date: 03/02/2023 PCP: KENIA MCKENZIE MD Room#: [id number] Patient was seen and examined this AM. She is awake, alert and oriented. Sitting up in a chair at bedside. No new complaints or acute overnight events. Auth still pending as of this am -Noted High BP this am, received 5mg Norvasc and 20 mg of lisinopril. Ordered as needed hydralazine. Repeat BP in the 140s. Adult diet Regular @[id number]@ 24HR INTAKE/OUTPUT: Intake/Output Summary (Last 24 hours) at 03/07/2023 1153 Last data filed at 03/06/2023 1925 Gross per 24 hour Intake 150 ml Output -- Net 150 ml Past Medical History: Past Medical History: Diagnosis Date Anxiety Aspirin long-term use history Asthma Bipolar 1 disorder (HCC) Chronic kidney disease Depression Difficulty walking High blood pressure Lack of coordination Mitral valve insufficiency Muscle weakness Presence of intraocular lens Repeated falls Rhabdomyolysis Sleep apnea Traumatic subarachnoid hemorrhage without loss of consciousness (HCC) LABS: CBC: Recent Labs 03/06/23 0919 WBC 5.6 RBC 4.15 HGB 12.9 HCT 39.1 MCV 94.2 RDW 13.3 PLT 151 BMP: Recent Labs 03/06/23 0919 NA 143 K 3.6 CL 111* CO2 25 BUN 14 CREATININE 0.80 GLUCOSE 139* CALCIUM 9.0 ANIONGAP 7 LIVER PROFILE:No results for input(s): AST, ALT, BILITOT, ALKPHOS, PROT in the last 72 hours. No lab exists for component: LABALBU PT/INR: No results for input(s): PROTIME, INR in the last 72 hours. CARDIAC ENZYMES: No results for input(s): TROPONINI in the last 72 hours. Procalcitonin: No results found for: PROCAL COVID-19 PCR: No results for input(s): COVID19 in the last 72 hours. Objective: Vitals: BP (!) 143/84 Pulse 75 Temp 36.9 C (98.5 F) (Temporal) Resp 18 Ht 5' (1.524 m) Wt 160 lb (72.6 kg) SpO2 92% BMI 31.25 kg/m Pulse Ox: SpO2 Av % Min: 92 % Max: 92 % Supplemental O2: O2 Flow Rate (L/min): 2 L/min Patient is alert, awake, oriented x 3 No JVD, surgical incision dressed Heart S1 S2 No murmurs Lungs clear to auscultation Abdomen soft non distended no organomegaly Medications: acetaminophen, 650 mg, Oral, q6h [START ON 03/08/2023] amLODIPine, 10 mg, Oral, Daily ARIPiprazole, 5 mg, Oral, Daily buPROPion XL, 150 mg, Oral, Daily cetirizine, 10 mg, Oral, Daily docusate sodium, 100 mg, Oral, BID enoxaparin, 40 mg, SubCUTAneous, Daily FLUoxetine, 60 mg, Oral, Daily lactulose, 10 g, Oral, Once lamoTRIgine, 50 mg, Oral, Daily lisinopril, 20 mg, Oral, Daily mometasone-formoterol, 2 puff, Inhalation, BID nystatin, , Topical, BID polyethylene glycol (PEG) 3350, 17 g, Oral, Daily sodium chloride 0.9%, 10 mL, IntraVENous, 2 times per day Assessment S/p C3-C6 ACDF- Post op day 4, per primary. -Pain well controlled -Last BM on 03/04--she is on scheduled Colace, MiraLAX. We will add 1 dose of lactulose. Hyponatremia-resolved. Will DC IVF H/o HTN-continue lisinopril 20 mg, increase amlodipine to 10 mg. As needed hydralazine as ordered. Bipolar disorder- continue meds H/o asthma- not in exac, continue prn breathing trt's Plan - pt stable from medicine stand for discharge -am labs, replace lytes prn -increase activity -DVT prophylaxis: [x] Lovenox [] Heparin [] SCDs [x] Encourage ambulation [] Already on Anticoagulation Advance Directive: Full Code Discharge planning: pending placement, authorization pending Trinidad Rodrigues 03/07/2023 Division of Hospitalist Medicine Inpatient Medical Services/[facility] PAGER: [phone] Physical Therapy Facility/Department: Physical Therapy Daily Treatment Note NAME: Pily Barnes : 1950 Date of Service: 03/07/2023 Discharge Recommendations: Intermediate Facility PT Equipment Recommendations Equipment Needed: No Other: tbd Assessment Requires PT Follow-Up: Yes Assessment: Pt required SBA/ Min assist for STS transfer x 4 with FWW. Pt required SBA from recliner in room. Pt required Min assist from hallway chair. Pt required Min assist with ambulation with FWW. Pt demonstrated festination gait pattern and norrow KESHIA. Pt required 3 standing rest breaks and 3 seated rest breaks. Pt required cueing to improve narrow KESHIA but unable to correct after a few steps. Pt practiced donning/doffing of C-collar and needed min assist for posterior fit. Recommend SNF after discharge from [facility]. Performance Deficits/Impairments: Decreased functional mobility , Decreased strength, Decreased balance, Decreased ADL status, Decreased endurance, Decreased safe awareness, Decreased sensation Decision Making: Low Complexity Treatment Initiated : cont education on donning/doffing brace Patient Diagnosis(es): The encounter diagnosis was Cervical stenosis of spinal canal. has a past medical history of Anxiety, Aspirin long-term use, Asthma, Bipolar 1 disorder (HCC), Chronic kidney disease, Depression, Difficulty walking, High blood pressure, Lack of coordination, Mitral valve insufficiency, Muscle weakness, Presence of intraocular lens, Repeated falls, Rhabdomyolysis, Sleep apnea, and Traumatic subarachnoid hemorrhage without loss of consciousness (HCC). has a past surgical history that includes Thyroid surgery (N/A); Hysterectomy; and Cervical spine surgery (03/02/2023). Restrictions Restrictions/Precautions Restrictions/Precautions: Fall Risk, Surgical Protocols Required Braces or Orthoses?: Yes Required Braces or Orthoses Cervical: c-collar Spinal Other: wear brace when active and OOB Position Activity Restriction Spinal Precautions: C-spine precautions Spinal Precautions: . Other position/activity restrictions: . Vision/Hearing Subjective General Chart Reviewed: Yes Patient Assessed for Rehabilitation Services: Yes Response To Previous Treatment: Patient with no complaints from previous session. Family / Caregiver Present: No Diagnosis: cervical stenosis of spinal canal, resultant C3-C6 ACDF Follows Commands: Within Functional Limits Other (Comment): Follows 1-2 step commands with increased time, delayed responses Subjective Subjective: Pt in chair and agreeable to PT. RN cleared for session. RN reported pt having elevated BP this morning. Pt reported no pain today. Patient Stated Goal: Pt wishes to receive more therapy upon discharge, unsure of facility ability to provide assistance for brace management Pain Assessment Pain Assessment: No/denies pain Cognition/Orientation Overall Cognitive Status: WFL Cognition Comment: alert and able to follow basic commands Overall Orientation Status: Within Functional Limits Orientation Level: Oriented X4 Objective Bed mobility Comment: unable to access, Pt sitting in chair pre/post session Transfers Sit to Stand: Stand by assistance, Minimal Assistance Stand to sit: Stand by assistance, Minimal Assistance Comment: Pt required SBA with STS transfer from recliner x 1, min assist x [address] chair x 3. Ambulation Ambulation: Yes Ambulation 1 Surface 1: Level tile Device 1: Rolling walker Assistance 1: Minimum assistance Quality of Gait 1: shuffling, uneven step length, path deviations Quality of Gait Comment 1: Pt presented with festination and parkinsonian type gait, norrow KESHIA, shuffling Distance (ft) 1: 75 ft x 2 Comments 1: x 3 seated breaks, x 2 standing rest breaks Balance Comments: Pt able to sit at EOB without Emiliana UE; support. Pt able to delbert/diff c-collar x 2 to practice. Exercises Gluteal Sets: x 10 reps each Knee Long Arc Quad: x 10 reps each, sitting in chair Comments: Seated marches while sitting in recliner x 10 reps each Other exercises Other exercises?: No Plan Times per Week: 5-7 Plan Weeks: 4 Current Treatment Recommendations: Strengthening, Balance Training, Functional Mobility Training, Transfer Training, Endurance Training, Gait Training, ADL/Self-care Training, Home Exercise Program, Safety Education & Training, Patient/Caregiver Education & Training, Equipment Evaluation, Education, & procurement Plan Comment: Cont PT POC Safety Safety Devices Safety Devices in Place: Yes Type of Devices: All fall risk precautions in place, Call light within reach, Gait belt, Patient at risk for falls, No alarms engaged upon entry into room, Nurse notified, Left in chair Restraints Restraints Initially in Place: No AM-PAC Score AM-PAC Inpatient Mobility Raw Score (No Stairs) : 15 Goals Encounter Problems Encounter Problems (Active) Mobility Patient will ambulate 50 feet with modified independence and rolling walker in order to improve safety and independence with mobility. (Progressing) Start: 03/03/23 Expected End: 03/31/23 Pain - Adult Transfers Patient will perform bed mobility with SBA in order to improve independence and prepare for out of bed mobility. (Not Addressed) Start: 03/03/23 Expected End: 03/31/23 Patient will complete sit to stand transfer with modified independence to wheeled walker in order to improve safety and prepare for out of bed mobility. (Progressing) Start: 03/03/23 Expected End: 03/31/23 Education Education Given To: Patient Education Provided: Goals, Plan of Care, Home Exercise Program, Precautions, Transfer Training, General Safety, Functional Mobility Training, Gait Training Education Provided Comments: Pt educated on donning/doffing c-collar. Cueing required for posterior c-collar. Education Method: Verbal, Demonstration, Teach Back Education Outcome: Verbalized understanding, Continued education needed, Unable to demonstrate understanding Therapy Time Individual Co-treatment Time In 1022 Time Out 1042 Minutes 20 Timed Code Treatment Minutes: 20 Minutes (FA x 1) LENIN Chu PTA Department of Neurosurgery Progress Note SUBJECTIVE: no acute events overnight. Pt up in chair and doing well overall. OBJECTIVE Physical BP (!) 178/104 Pulse 85 Temp 36.9 C (98.5 F) (Temporal) Resp 18 Ht 5' (1.524 m) Wt 160 lb (72.6 kg) SpO2 92% BMI 31.25 kg/m NEUROLOGIC: A&O x3 VÁZQUEZ BUE strength 4+/5, emiliana weekend anchor 5/5 Sensation intact Dressing C/D/I with steri strips ASSESSMENT AND PLAN 72 y.o. female status post C3-6 ACDF post op day # 5 Pt progressing as expected Continue with PT/OT, encourage ambulation, up to chair for meals Recommendation for [facility], authorization pending Pt ready for DC when auth available Physical Therapy Facility/Department: Physical Therapy Daily Treatment Note NAME: Pily Barnes : 1950 Date of Service: 03/06/2023 Discharge Recommendations: Intermediate Facility PT Equipment Recommendations Equipment Needed: No Other: tbd Assessment Requires PT Follow-Up: Yes Assessment: Pt progressing towards PT goals. Pt limited by decreased functional endurance and impaired balance. Pt noted to have R lateral drift during linear progression w/ gait training today; MIn x1 to correct path before collision. Pt also noted to have Parkinsonian style gait pattern w/ intermittent festinations vs. motor apraxia?? (no resting tremors noted). Pt able to stand from low surface w/ Min x1 today. Pt motivated to return to [facility], and would benefit from ongoing Facility based therapy post Disch. Performance Deficits/Impairments: Decreased functional mobility , Decreased strength, Decreased balance, Decreased ADL status, Decreased endurance, Decreased safe awareness, Decreased sensation Activity Tolerance Comment: Limited by fatigue Treatment Diagnosis: Weakness Decision Making: Low Complexity Treatment Initiated : cont education on donning/doffing brace Patient Diagnosis(es): The encounter diagnosis was Cervical stenosis of spinal canal. has a past medical history of Anxiety, Aspirin long-term use, Asthma, Bipolar 1 disorder (HCC), Chronic kidney disease, Depression, Difficulty walking, High blood pressure, Lack of coordination, Mitral valve insufficiency, Muscle weakness, Presence of intraocular lens, Repeated falls, Rhabdomyolysis, Sleep apnea, and Traumatic subarachnoid hemorrhage without loss of consciousness (HCC). has a past surgical history that includes Thyroid surgery (N/A); Hysterectomy; and Cervical spine surgery (03/02/2023). Restrictions Restrictions/Precautions Restrictions/Precautions: Fall Risk, Surgical Protocols Required Braces or Orthoses?: Yes Required Braces or Orthoses Cervical: c-collar Spinal Other: wear brace when active and OOB Position Activity Restriction Spinal Precautions: C-spine precautions Spinal Precautions: . Other position/activity restrictions: IV Vision/Hearing Subjective General Chart Reviewed: Yes Patient Assessed for Rehabilitation Services: Yes Response To Previous Treatment: Patient with no complaints from previous session. Family / Caregiver Present: No Diagnosis: cervical stenosis of spinal canal, resultant C3-C6 ACDF Follows Commands: Within Functional Limits Other (Comment): Follows 1-2 step commands with increased time, delayed responses General Comment Comments: TANK PROCESSOR noted Parkinsonian gait pattern w/ intermittent festinations; no resting tremors noted Subjective Subjective: Pt in chair, agreeable to PT. nsg cleared pt for PT. Patient Stated Goal: Pt wishes to receive more therapy upon discharge, unsure of facility ability to provide assistance for brace management Pain Assessment Pain Assessment: No/denies pain (Pt had no c/o pain during PT Rx) Cognition/Orientation Overall Cognitive Status: [facility] Cognition Comment: Alert, appropriate responses. Following basic commands. Overall Orientation Status: Within Functional Limits Orientation Level: Oriented X4 Objective Transfers Sit to Stand: Stand by assistance, Minimal Assistance Comment: x1 from recliner; SBA; x1 from low chair, Min x1 Ambulation Ambulation: Yes Ambulation 1 Surface 1: Level tile Device 1: Rolling walker Assistance 1: Minimum assistance Quality of Gait 1: B foot clearance, shuffling, slow hitesh, uneven step length, path deviations Quality of Gait Comment 1: narrow KESHIA; shuffling gait pattern w/ Parkinsonian type festinations (in open spaces) Distance (ft) 1: 50ft x3 Comments 1: x1 seated break; x1 stand rest Balance Posture: Good Sitting - Static: Fair, + Sitting - Dynamic: Fair Standing - Static: Fair Standing - Dynamic: Fair Comments: Pt able to sit edge of chair w/ TANK PROCESSOR assist w/ delbert/doff C-collar x3 rep. Exercises Knee Long Arc Quad: x 10 reps each, sitting in chair Ankle Pumps: x12 rep ea; seated DF then PF Other exercises Other exercises?: No Plan Times per Week: 5-7 Plan Weeks: 4 Specific Instructions for Next Treatment: functional strength/endurance and balance training. Current Treatment Recommendations: Strengthening, Balance Training, Functional Mobility Training, Transfer Training, Endurance Training, Gait Training, ADL/Self-care Training, Home Exercise Program, Safety Education & Training, Patient/Caregiver Education & Training, Equipment Evaluation, Education, & procurement Plan Comment: Cont PT POC Safety Safety Devices Safety Devices in Place: Yes Type of Devices: All fall risk precautions in place, Call light within reach, Gait belt, Patient at risk for falls, No alarms engaged upon entry into room, Nurse notified, Left in chair Outcomes Score AM-PAC Score AM-PAC Inpatient Mobility Raw Score (No Stairs) : 15 Goals Encounter Problems Encounter Problems (Active) Mobility Patient will ambulate 50 feet with modified independence and rolling walker in order to improve safety and independence with mobility. (Progressing) Start: 03/03/23 Expected End: 03/31/23 Pain - Adult Transfers Patient will perform bed mobility with SBA in order to improve independence and prepare for out of bed mobility. (Not Addressed) Start: 03/03/23 Expected End: 03/31/23 Patient will complete sit to stand transfer with modified independence to wheeled walker in order to improve safety and prepare for out of bed mobility. (Progressing) Start: 03/03/23 Expected End: 03/31/23 Education Education Given To: Patient Education Provided: Goals, Plan of Care, Home Exercise Program, Precautions, Transfer Training, General Safety, Functional Mobility Training, Gait Training Education Provided Comments: Pt educated on donning/doffing c-collar. After education, Education Method: Verbal, Demonstration, Teach Back Education Outcome: Verbalized understanding, Continued education needed, Unable to demonstrate understanding Therapy Time Individual Co-treatment Time In 1542 Time Out 1608 Minutes 26 Timed Code Treatment Minutes: 26 Minutes (FA x1; GT x1) Claudia Ma PTA Images from the original note were not included. Hospitalist Progress Note Subjective: Admit Date: 03/02/2023 PCP: KENIA MCKENZIE MD Room#: [id number] Patient was seen and examined this AM. She is awake, alert and oriented. Sitting up in a chair at bedside. No new complaints or acute overnight events. Pending authorization. Adult diet Regular @[id number]@ 24HR INTAKE/OUTPUT: No intake or output data in the 24 hours ending 03/06/23 1201 Past Medical History: Past Medical History: Diagnosis Date Anxiety Aspirin long-term use history Asthma Bipolar 1 disorder (HCC) Chronic kidney disease Depression Difficulty walking High blood pressure Lack of coordination Mitral valve insufficiency Muscle weakness Presence of intraocular lens Repeated falls Rhabdomyolysis Sleep apnea Traumatic subarachnoid hemorrhage without loss of consciousness (HCC) LABS: CBC: Recent Labs 03/06/23 0919 WBC 5.6 RBC 4.15 HGB 12.9 HCT 39.1 MCV 94.2 RDW 13.3 PLT 151 BMP: Recent Labs 03/06/23 0919 NA 143 K 3.6 CL 111* CO2 25 BUN 14 CREATININE 0.80 GLUCOSE 139* CALCIUM 9.0 ANIONGAP 7 LIVER PROFILE:No results for input(s): AST, ALT, BILITOT, ALKPHOS, PROT in the last 72 hours. No lab exists for component: LABALBU PT/INR: No results for input(s): PROTIME, INR in the last 72 hours. CARDIAC ENZYMES: No results for input(s): TROPONINI in the last 72 hours. Procalcitonin: No results found for: PROCAL COVID-19 PCR: No results for input(s): COVID19 in the last 72 hours. Objective: Vitals: BP (!) 163/94 (BP Location: Right arm, Patient Position: Lying) Pulse 67 Temp 36.7 C (98.1 F) (Temporal) Resp 18 Ht 5' (1.524 m) Wt 160 lb (72.6 kg) SpO2 93% BMI 31.25 kg/m Pulse Ox: SpO2 Av.5 % Min: 93 % Max: 94 % Supplemental O2: O2 Flow Rate (L/min): 2 L/min Patient is alert, awake, oriented x 3 No JVD, surgical incision dressed Heart S1 S2 No murmurs Lungs clear to auscultation Abdomen soft non distended no organomegaly Medications: sodium chloride, 75 mL/hr, Last Rate: 75 mL/hr (03/04/23 1712) acetaminophen, 650 mg, Oral, q6h [START ON 03/07/2023] amLODIPine, 5 mg, Oral, Daily ARIPiprazole, 5 mg, Oral, Daily buPROPion XL, 150 mg, Oral, Daily cetirizine, 10 mg, Oral, Daily docusate sodium, 100 mg, Oral, BID enoxaparin, 40 mg, SubCUTAneous, Daily FLUoxetine, 60 mg, Oral, Daily lamoTRIgine, 50 mg, Oral, Daily lisinopril, 20 mg, Oral, Daily mometasone-formoterol, 2 puff, Inhalation, BID nystatin, , Topical, BID polyethylene glycol (PEG) 3350, 17 g, Oral, Daily sodium chloride 0.9%, 10 mL, IntraVENous, 2 times per day Assessment S/p C3-C6 ACDF- Post op day 4, per primary. Hyponatremia-resolved. Will DC IVF H/o HTN-Will increase amlodipine to 5 mg starting tomorrow Bipolar disorder- continue meds H/o asthma- not in exac, continue prn breathing trt's Plan - pt stable from medicine stand for discharge -am labs, replace lytes prn -increase activity -DVT prophylaxis: [x] Lovenox [] Heparin [] SCDs [x] Encourage ambulation [] Already on Anticoagulation Advance Directive: Full Code Discharge planning: pending placement Toxic drug monitoring/narrow therapeutic index drug monitoring : # Drug name : # Route administered : # Method of monitoring : Trinidad Rodrigues 03/06/2023 Division of Hospitalist Medicine Inpatient Medical Services/[facility] [place] PAGER: [phone] Department of Neurosurgery Progress Note SUBJECTIVE: doing well overall. Mild incisional pain. Mild dysphagia but tolerating diet. Patient is awaiting approval for [facility] OBJECTIVE Physical BP (!) 163/94 (BP Location: Right arm, Patient Position: Lying) Pulse 67 Temp 36.7 C (98.1 F) (Temporal) Resp 18 Ht 5' (1.524 m) Wt 160 lb (72.6 kg) SpO2 93% BMI 31.25 kg/m NEUROLOGIC: A&O x3 VÁZQUEZ BUE strength 4+/5, emiliana weekend anchor 5/5 Sensation intact Dressing C/D/I with steri strips ASSESSMENT AND PLAN 72 y.o. female status post C3-6 ACDF post op day # 4 Pt progressing as expected Continue with PT/OT, encourage ambulation, up to chair for meals Recommendation for [facility], authorization pending Hopeful discharge today pending rehab auth Images from the original note were not included. Hospitalist Progress Note Subjective: Admit Date: 03/02/2023 PCP: KENIA MCKENZIE MD Room#: [id number] A Interval History: no new complaints, no acute issues overnt. Eating and drinking ok. Adult diet Regular @[id number]@ 24HR INTAKE/OUTPUT: Intake/Output Summary (Last 24 hours) at 03/05/2023 2331 Last data filed at 03/05/2023 1005 Gross per 24 hour Intake 220 ml Output -- Net 220 ml Past Medical History: Past Medical History: Diagnosis Date Anxiety Aspirin long-term use history Asthma Bipolar 1 disorder (HCC) Chronic kidney disease Depression Difficulty walking High blood pressure Lack of coordination Mitral valve insufficiency Muscle weakness Presence of intraocular lens Repeated falls Rhabdomyolysis Sleep apnea Traumatic subarachnoid hemorrhage without loss of consciousness (HCC) LABS: CBC: Recent Labs 03/03/23133 WBC 6.7 RBC 4.27 HGB 13.2 HCT 39.9 MCV 93.4 RDW 13.2 PLT 168 BMP: Recent Labs 03/03/23133 NA 132* K 4.7 CL 105 CO2 23 BUN 21* CREATININE 0.88 GLUCOSE 141* CALCIUM 8.7 ANIONGAP 5 LIVER PROFILE:No results for input(s): AST, ALT, BILITOT, ALKPHOS, PROT in the last 72 hours. No lab exists for component: LABALBU PT/INR: Recent Labs 03/03/23133 PROTIME 10.3 INR 1.0 CARDIAC ENZYMES: No results for input(s): TROPONINI in the last 72 hours. Procalcitonin: No results found for: PROCAL COVID-19 PCR: No results for input(s): COVID19 in the last 72 hours. Objective: Vitals: BP (!) 132/92 (BP Location: Left arm, Patient Position: Sitting) Pulse 81 Temp 36.4 C (97.5 F) (Temporal) Resp 18 Ht 5' (1.524 m) Wt 160 lb (72.6 kg) SpO2 94% BMI 31.25 kg/m Pulse Ox: SpO2 Av % Min: 94 % Max: 94 % Supplemental O2: O2 Flow Rate (L/min): 2 L/min Patient is alert, awake, oriented x 3 No JVD, surgical incision dressed Heart S1 S2 No murmurs Lungs clear to auscultation Abdomen soft non distended no organomegaly Medications: sodium chloride, 75 mL/hr, Last Rate: 75 mL/hr (03/04/23 1712) acetaminophen, 650 mg, Oral, q6h amLODIPine, 2.5 mg, Oral, Daily ARIPiprazole, 5 mg, Oral, Daily buPROPion XL, 150 mg, Oral, Daily cetirizine, 10 mg, Oral, Daily docusate sodium, 100 mg, Oral, BID enoxaparin, 40 mg, SubCUTAneous, Daily FLUoxetine, 60 mg, Oral, Daily lamoTRIgine, 50 mg, Oral, Daily lisinopril, 20 mg, Oral, Daily mometasone-formoterol, 2 puff, Inhalation, BID nystatin, , Topical, BID polyethylene glycol (PEG) 3350, 17 g, Oral, Daily sodium chloride 0.9%, 10 mL, IntraVENous, 2 times per day Assessment S/p C3-C6 ACDF- Post op day 2, per primary. H/o HTN- bp well controlled, continue meds. Bipolar disorder- continue meds H/o asthma- not in exac, continue prn breathing trt's Dvt prophylaxis- per primary. Plan - pt stable from medicine stand for discharge -am labs, replace lytes prn -increase activity -DVT prophylaxis: [] Lovenox [] Heparin [] SCDs [x] Encourage ambulation [] Already on Anticoagulation Advance Directive: Full Code Discharge planning: pending placement Toxic drug monitoring/narrow therapeutic index drug monitoring : # Drug name : # Route administered : # Method of monitoring : Maribel Jean MD 03/05/2023 Division of Hospitalist Medicine Inpatient Medical Services/[facility] [place] PAGER: [phone] Department of Neurosurgery Progress Note SUBJECTIVE: Patient seen and examined at bedside with Dr. Mcgill. Patient appears in no acute distress, up in chair this am. She reports that her pain is controlled, mild dysphagia. Discussed soft foods and thicker liquids for oral intake. Patient is awaiting approval for [facility] OBJECTIVE Physical BP (!) 142/88 (BP Location: Left arm, Patient Position: Lying) Pulse 64 Temp 36.6 C (97.8 F) (Temporal) Resp 18 Ht 5' (1.524 m) Wt 160 lb (72.6 kg) SpO2 94% BMI 31.25 kg/m NEUROLOGIC: A&O x3 VÁZQUEZ BUE strength 4+/5, emiliana weekend anchor 5/5 Sensation intact No significant issues swallowing Dressing C/D/I ASSESSMENT AND PLAN 72 y.o. female status post C3-6 ACDF post op day # 3 Pt progressing as expected Continue with PT/OT, encourage ambulation, up to chair for meals Recommendation for [facility] Continue current pain regimen IS, C&DB Begin DVT PPX with Lovenox today Will await discharge for insurance approval and discharge planning. Physical Therapy Facility/Department: Physical Therapy Daily Treatment Note NAME: Pily Barnes : 1950 Date of Service: 03/05/2023 Discharge Recommendations: Intermediate Facility PT Equipment Recommendations Equipment Needed: No Assessment Requires PT Follow-Up: Yes Assessment: Pt required Min assist overall for transfer and gait. Pt seated at the EOB finishing breakfast upon arrival to room. Pt reports no neck pain today. Pt reports that she's been able to walk to the bathroom on her own. Pt required Min assist with STS transfer x 1 with FWW. Pt cued for hand placement and forward flexed posture. Pt dependent on donning/doffing c-collar. Pt required Min assist with gait. Pt required multiple standing rest breaks throughout gait. Pt required increased time to complete. Recommend SNF at discharge from [facility]. Performance Deficits/Impairments: Decreased functional mobility , Decreased strength, Decreased balance, Decreased ADL status, Decreased endurance, Decreased safe awareness, Decreased sensation Activity Tolerance Comment: Limited by fatigue Decision Making: Low Complexity Treatment Initiated : cont education on donning/doffing brace Patient Diagnosis(es): The encounter diagnosis was Cervical stenosis of spinal canal. has a past medical history of Anxiety, Aspirin long-term use, Asthma, Bipolar 1 disorder (HCC), Chronic kidney disease, Depression, Difficulty walking, High blood pressure, Lack of coordination, Mitral valve insufficiency, Muscle weakness, Presence of intraocular lens, Repeated falls, Rhabdomyolysis, Sleep apnea, and Traumatic subarachnoid hemorrhage without loss of consciousness (HCC). has a past surgical history that includes Thyroid surgery (N/A); Hysterectomy; and Cervical spine surgery (03/02/2023). Restrictions Restrictions/Precautions Restrictions/Precautions: Fall Risk, Surgical Protocols Required Braces or Orthoses?: Yes Required Braces or Orthoses Cervical: c-collar (when active and OOB) Position Activity Restriction Spinal Precautions: C-spine precautions Spinal Precautions: No spinal precautions per PT order and ortho note Other position/activity restrictions: IV Vision/Hearing Subjective General Chart Reviewed: Yes Patient Assessed for Rehabilitation Services: Yes Family / Caregiver Present: No Diagnosis: cervical stenosis of spinal canal, resultant C3-C6 ACDF Follows Commands: Impaired Other (Comment): Follows 1-2 step commands with increased time, delayed responses Subjective Subjective: Pt alert and sitting at the EOB finishing breakfast. Pt agreeable to PT. Pt reported no neck pain. Patient Stated Goal: Pt wishes to receive more therapy upon discharge, unsure of facility ability to provide assistance for brace management Pain Assessment Pain Assessment: No/denies pain Cognition/Orientation Overall Cognitive Status: WFL Cognition Comment: Alert, appropriate responses. Following basic commands. Overall Orientation Status: Within Functional Limits Orientation Level: Oriented X4 Objective Bed mobility Comment: not able to assess, pt sitting at EOB at being of session and returned to chair post session Transfers Sit to Stand: Minimal Assistance Stand to sit: Minimal Assistance Comment: Pt required Min Assist for STS transfer x 1 from EOB with FWW. Pt required cueing to improve forward trunk lean. Pt dependent on donning/doffing c-collar before standing. Ambulation Ambulation: Yes Ambulation 1 Surface 1: Level tile Device 1: Rolling walker Assistance 1: Minimum assistance Quality of Gait 1: slow hitesh Quality of Gait Comment 1: Slow hitesh, increased time to complete, unsteady on feet Distance (ft) 1: 35 ft x 2 Comments 1: Pt required multiple standing rest breaks due to being fatigued Balance Comments: Pt able to sit at EOB without Emiliana UE support. Pt dependent on donning/doffing of c-collar. No LOB. Exercises Quad Sets: x 10 reps each Gluteal Sets: x 10 reps each Knee Long Arc Quad: x 10 reps each, sitting in chair Ankle Pumps: x 10 reps each Other exercises Other exercises?: No Plan Times per Week: 5-7 Plan Weeks: 4 Current Treatment Recommendations: Strengthening, Balance Training, Functional Mobility Training, Transfer Training, Endurance Training, Gait Training, ADL/Self-care Training, Home Exercise Program, Safety Education & Training, Patient/Caregiver Education & Training, Equipment Evaluation, Education, & procurement Safety Safety Devices Safety Devices in Place: Yes Type of Devices: Gait belt, No alarms engaged upon entry into room, All fall risk precautions in place, Patient at risk for falls, Call light within reach, Left in chair Restraints Restraints Initially in Place: No AM-PAC Score AM-PAC Inpatient Mobility Raw Score (No Stairs) : 15 Goals Encounter Problems Encounter Problems (Active) Mobility Patient will ambulate 50 feet with modified independence and rolling walker in order to improve safety and independence with mobility. (Progressing) Start: 03/03/23 Expected End: 03/31/23 Pain - Adult Transfers Patient will perform bed mobility with SBA in order to improve independence and prepare for out of bed mobility. (Not Addressed) Start: 03/03/23 Expected End: 03/31/23 Patient will complete sit to stand transfer with modified independence to wheeled walker in order to improve safety and prepare for out of bed mobility. (Progressing) Start: 03/03/23 Expected End: 03/31/23 Education Education Given To: Patient Education Provided: PT Role, Plan of Care, Discharge recommendations, Precautions, Transfer Training, Energy Conservation, General Safety Education Provided Comments: Pt educated on donning/doffing c-collar. After education, Pt continued to be able to complete it independently. Pt reported pre session that she does not know how to do it. Education Method: Verbal, Demonstration Education Outcome: Verbalized understanding, Continued education needed Therapy Time Individual Co-treatment Time In 0830 Time Out 0858 Minutes 28 Timed Code Treatment Minutes: 28 Minutes (Gait x 1, TP x 1) LENIN Chu PTA Nutrition rescreen completed. Chart reviewed. Patient to be monitored and followed by the diet ophthalmology technician. Images from the original note were not included. Hospitalist Progress Note Subjective: Admit Date: 03/02/2023 PCP: KENIA MCKENZIE MD Room#: [id number] A Interval History: pt sitting on the bed, cervical collar removed. Reports pain in her neck at the site of surgery and tingling in her R hand fingers, same as yesterday but improved from before, No other complaints, no acute issues overnt. Adult diet Regular @[id number]@ 24HR INTAKE/OUTPUT: Intake/Output Summary (Last 24 hours) at 03/04/2023 1112 Last data filed at 03/04/2023 1000 Gross per 24 hour Intake 360 ml Output 81 ml Net 279 ml Past Medical History: Past Medical History: Diagnosis Date Anxiety Aspirin long-term use history Asthma Bipolar 1 disorder (HCC) Chronic kidney disease Depression Difficulty walking High blood pressure Lack of coordination Mitral valve insufficiency Muscle weakness Presence of intraocular lens Repeated falls Rhabdomyolysis Sleep apnea Traumatic subarachnoid hemorrhage without loss of consciousness (HCC) LABS: CBC: Recent Labs 03/03/23133 WBC 6.7 RBC 4.27 HGB 13.2 HCT 39.9 MCV 93.4 RDW 13.2 PLT 168 BMP: Recent Labs 03/03/23133 NA 132* K 4.7 CL 105 CO2 23 BUN 21* CREATININE 0.88 GLUCOSE 141* CALCIUM 8.7 ANIONGAP 5 LIVER PROFILE:No results for input(s): AST, ALT, BILITOT, ALKPHOS, PROT in the last 72 hours. No lab exists for component: LABALBU PT/INR: Recent Labs 03/03/23133 PROTIME 10.3 INR 1.0 CARDIAC ENZYMES: No results for input(s): TROPONINI in the last 72 hours. Procalcitonin: No results found for: PROCAL COVID-19 PCR: No results for input(s): COVID19 in the last 72 hours. Objective: Vitals: BP 131/85 Pulse 63 Temp 36.9 C (98.5 F) (Temporal) Resp 19 Ht 5' (1.524 m) Wt 160 lb (72.6 kg) SpO2 93% BMI 31.25 kg/m Pulse Ox: SpO2 Av.5 % Min: 92 % Max: 93 % Supplemental O2: O2 Flow Rate (L/min): 2 L/min Patient is alert, awake, oriented x 3 No pallor, Icterus No JVD, surgical incision dressed Heart S1 S2 No murmurs Lungs clear to auscultation Abdomen soft non distended no organomegaly Medications: sodium chloride, 75 mL/hr, Last Rate: 75 mL/hr (03/03/23 0820) acetaminophen, 650 mg, Oral, q6h amLODIPine, 2.5 mg, Oral, Daily ARIPiprazole, 5 mg, Oral, Daily buPROPion XL, 150 mg, Oral, Daily cetirizine, 10 mg, Oral, Daily docusate sodium, 100 mg, Oral, BID FLUoxetine, 60 mg, Oral, Daily lamoTRIgine, 50 mg, Oral, Daily lisinopril, 20 mg, Oral, Daily mometasone-formoterol, 2 puff, Inhalation, BID nystatin, , Topical, BID polyethylene glycol (PEG) 3350, 17 g, Oral, Daily sodium chloride 0.9%, 10 mL, IntraVENous, 2 times per day Assessment S/p C3-C6 ACDF- Post op day 2, per primary. H/o HTN- bp well controlled, continue meds. Bipolar disorder- continue meds H/o asthma- not in exac, continue prn breathing trt's Dvt prophylaxis- per primary. Plan - pt stable from medicine stand for discharge -am labs, replace lytes prn -increase activity -DVT prophylaxis: [] Lovenox [] Heparin [] SCDs [x] Encourage ambulation [] Already on Anticoagulation Advance Directive: Full Code Discharge planning: pending placement Total time spent (which include face to face and non face to face encounters) : 40 minutes Toxic drug monitoring/narrow therapeutic index drug monitoring : # Drug name : # Route administered : # Method of monitoring : Maribel Jean MD 03/04/2023 Division of Hospitalist Medicine Inpatient Medical Services/[facility] PAGER: [phone] Department of Neurosurgery Progress Note SUBJECTIVE: Patient seen and examined at bedside with Dr. Mcgill. Patient appears in no acute distress, has no complaints this morning. Reports little dysphagia, tolerating diet. OBJECTIVE Physical BP 131/85 Pulse 63 Temp 36.9 C (98.5 F) (Temporal) Resp 19 Ht 5' (1.524 m) Wt 160 lb (72.6 kg) SpO2 93% BMI 31.25 kg/m NEUROLOGIC: A&O x3 VÁZQUEZ BUE strength 4+/5, emiliana weekend anchor 5/5 Sensation intact No issues swallowing Dressing C/D/I Drain with 20cc out in 12 hours; drain removed today, catheter tip intact, patient tolerated well. ASSESSMENT AND PLAN 72 y.o. female status post C3-6 ACDF post op day # 2 Pt progressing as expected Continue with PT/OT, encourage ambulation, up to chair for meals Recommendation for [facility] Continue current pain regimen IS, C&DB SCDs for DVT PPX Will await discharge for insurance approval and discharge planning. Occupational Therapy Facility/Department: Occupational Therapy Initial Evaluation NAME: Pily Barnes : 1950 Date of Service: 03/03/2023 Discharge Recommendations: Intermediate Facility Assessment REQUIRES OT FOLLOW-UP: Yes Performance deficits / Impairments: Decreased functional mobility , Decreased balance, Decreased safe awareness, Decreased ADL status, Decreased cognition, Decreased high-level IADLs, Decreased endurance, Decreased ROM, Decreased strength, Decreased fine motor control, Decreased sensation, Decreased posture, Decreased coordination Assessment: OT eval completed. Pt is s/p ACDF and requires more assist with ADLS today than baseline. Would benefit from ongoing therapies at SNF level. Easily fatigued. Also limited by decreased FMC and sensation in hands. Prognosis: Good Decision Making: Medium Complexity Activity Tolerance Activity Tolerance: Patient Tolerated treatment well, Patient limited by fatigue Patient Diagnosis(es): The encounter diagnosis was Cervical stenosis of spinal canal. has a past medical history of Anxiety, Aspirin long-term use, Asthma, Bipolar 1 disorder (HCC), Chronic kidney disease, Depression, Difficulty walking, High blood pressure, Lack of coordination, Mitral valve insufficiency, Muscle weakness, Presence of intraocular lens, Repeated falls, Rhabdomyolysis, Sleep apnea, and Traumatic subarachnoid hemorrhage without loss of consciousness (HCC). has a past surgical history that includes Thyroid surgery (N/A); Hysterectomy; and Cervical spine surgery (03/02/2023). Restrictions Restrictions/Precautions Restrictions/Precautions: Fall Risk, Surgical Protocols Required Braces or Orthoses?: Yes Required Braces or Orthoses Cervical: c-collar (When active and OOB) Position Activity Restriction Spinal Precautions: C-spine precautions Spinal Precautions: No spinal precautions per PT order and ortho note Other position/activity restrictions: POLO drain Cognition/Orientation Cognition Comment: Alert, appropriate responses. Following basic commands. Overall Orientation Status: Within Functional Limits Subjective General Chart Reviewed: Yes Patient Assessed for Rehabilitation Services: Yes Additional Pertinent Hx: Bipolar disorder Family / Caregiver Present: No Diagnosis: C3-6 ACDF 03/02. General Comments Comments: Pt with call light on, agreeable to OT. Requesting to use bathroom. Pleasant. C/o sore throat s/p surgery. Patient Stated Goal: Return to [facility] when able. Social/Functional History Social/Functional History Lives With: Alone Type of Home: Assisted living ADL Assistance: Needs assistance Homemaking Assistance: Needs assistance Ambulation Assistance: Independent With device?: Yes Device: rolling walker Transfer Assistance: Independent Additional Comments: Per pt, indep with most ADLs but needs assist with toileting when brief needs changes. Ambulates short distances with FWW, wheelchair long distances. Objective Gross Assessment: Yes AROM: Generally decreased, functional Strength: Generally decreased, functional Coordination: Generally decreased, functional (Mild UE tremors, reports this is baseline.) Tone: Normal Sensation: Impaired (C/o paresthesia bilaterally at digits 2-5, reports slightly better since surgery.) Balance Standing Balance: Minimal assistance Standing Balance Activity: Dynamic standing task at [facility]- marching LEs in place. Easily fatigued tolerating ~30 seconds. Functional Mobility Functional - Mobility Device: Rolling Walker Activity: To/from bathroom Assist Level: Minimal assistance Toilet Transfers Toilet - Technique: Ambulating Equipment Used: Grab bars Toilet Transfer: Minimal assistance ADL Grooming: Minimal assistance (Hand hygiene standing at sink, assist for balance.) Toileting: Moderate assistance (Up to bathroom, required assist for brief change.) Bed mobility Rolling to Right: Stand by assistance Supine to Sit: Moderate assistance Sit to Supine: Moderate assistance Scooting: Moderate assistance Transfers Sit to stand: Minimal assistance Stand to sit: Minimal assistance Transfer Comments: Retrobalance Plan Times per Week: 3-5 x Plan Weeks: 4 Current Treatment Recommendations: Strengthening, ROM, Balance Training, Functional Mobility Training, Endurance Training, Safety Education & Training, Patient/Caregiver Education & Training, Self-Care / ADL, Equipment Evaluation, Education, & procurement, Neuromuscular Re-education Safety Safety Devices in place: Yes Type of devices: Left in bed, Patient at risk for falls, Call light within reach, Gait belt, No alarms engaged upon entry into room Restraints Initially in place: No AM-PAC Score AM-PAC Inpatient Daily Activity Raw Score: 16 ADL Inpatient CMS G-Code Modifier: CK Goals Encounter Problems Encounter Problems (Active) Dressings Lower Extremities Patient will dress lower body supervision. Start: 03/03/23 Expected End: 03/31/23 Grooming Grooming standing at sink with FMC component supervision. Start: 03/03/23 Expected End: 03/31/23 Therapeutic Exercise Demo 4 [facility] exercises 10 x 1 set min cues for technique. Start: 03/03/23 Expected End: 03/31/23 Toileting Patient will complete toileting tasks with supervision. Start: 03/03/23 Expected End: 03/31/23 Education Education Given To: Patient Education Provided: OT role, Plan of care, Precautions Education Method: Verbal Barriers to Learning: Cognition Education Outcome: Verbalized understanding, Continued education needed Therapy Time Individual Co-treatment Time In 1335 Time Out 1355 Minutes 20 Patient's Occupational Therapy Plan of Care supervision is transferred to [facility] Occupational Therapist. Goals and/or treatment plan was established in collaboration with patient/family/other representatives. Audelia Demarco OTR/L Images from the original note were not included. Hospitalist Progress Note Subjective: Admit Date: 03/02/2023 PCP: KENIA MCKENZIE MD Room#: -5630/4208 A Interval History: pt sitting on the bed, cervical collar in place. Reports pain in her neck at the site of surgery and tingling in her R hand fingers, improved from before. No other complaints, no acute issues overnt. Adult diet Regular @[id number]@ 24HR INTAKE/OUTPUT: Intake/Output Summary (Last 24 hours) at 03/03/2023 1339 Last data filed at 03/03/2023 1200 Gross per 24 hour Intake 2240 ml Output 61 ml Net 2179 ml Past Medical History: Past Medical History: Diagnosis Date Anxiety Aspirin long-term use history Asthma Bipolar 1 disorder (HCC) Chronic kidney disease Depression Difficulty walking High blood pressure Lack of coordination Mitral valve insufficiency Muscle weakness Presence of intraocular lens Repeated falls Rhabdomyolysis Sleep apnea Traumatic subarachnoid hemorrhage without loss of consciousness ([facility]) LABS: CBC: Recent Labs 03/03/23133 WBC 6.7 RBC 4.27 HGB 13.2 HCT 39.9 MCV 93.4 RDW 13.2 PLT 168 BMP: Recent Labs 03/03/23133 NA 132* K 4.7 CL 105 CO2 23 BUN 21* CREATININE 0.88 GLUCOSE 141* CALCIUM 8.7 ANIONGAP 5 LIVER PROFILE:No results for input(s): AST, ALT, BILITOT, ALKPHOS, PROT in the last 72 hours. No lab exists for component: LABALBU PT/INR: Recent Labs 03/03/23133 PROTIME 10.3 INR 1.0 CARDIAC ENZYMES: No results for input(s): TROPONINI in the last 72 hours. Procalcitonin: No results found for: PROCAL COVID-19 PCR: No results for input(s): COVID19 in the last 72 hours. Objective: Vitals: BP 119/70 Pulse 74 Temp 36.6 C (97.8 F) (Temporal) Resp 18 Ht 1.524 m (5') Wt 72.6 kg (160 lb) SpO2 94% BMI 31.25 kg/m Pulse Ox: SpO2 Av.8 % Min: 93 % Max: 100 % Supplemental O2: O2 Flow Rate (L/min): 2 L/min Patient is alert, awake, oriented x 3 No pallor, Icterus, cervical collar inplace No JVD Heart S1 S2 No murmurs Lungs clear to auscultation Abdomen soft non distended no organomegaly No pedal edema, no cyanosis No focal neurological deficits Medications: lactated Ringer's, 50 mL/hr, Last Rate: Stopped (03/02/23 1315) sodium chloride, 75 mL/hr, Last Rate: 75 mL/hr (03/03/23 0820) acetaminophen, 650 mg, Oral, q6h amLODIPine, 2.5 mg, Oral, Daily ARIPiprazole, 5 mg, Oral, Daily buPROPion XL, 150 mg, Oral, Daily cetirizine, 10 mg, Oral, Daily docusate sodium, 100 mg, Oral, BID FLUoxetine, 60 mg, Oral, Daily lamoTRIgine, 50 mg, Oral, Daily lisinopril, 20 mg, Oral, Daily mometasone-formoterol, 2 puff, Inhalation, BID nystatin, , Topical, BID polyethylene glycol (PEG) 3350, 17 g, Oral, Daily sodium chloride 0.9%, 10 mL, IntraVENous, 2 times per day Assessment S/p C3-C6 ACDF- Post op day 1, per primary. H/o HTN- bp well controlled, continue meds. Bipolar disorder- continue meds H/o asthma- not in exac, continue prn breathing trt's Dvt prophylaxis- per primary. Plan -am labs, replace lytes prn -increase activity -DVT prophylaxis: [] Lovenox [] Heparin [] SCDs [x] Encourage ambulation [] Already on Anticoagulation Advance Directive: Full Code Discharge planning: TBD Total time spent (which include face to face and non face to face encounters) : 45 minutes Toxic drug monitoring/narrow therapeutic index drug monitoring : # Drug name : # Route administered : # Method of monitoring : Maribel Jean MD 03/03/2023 Division of Hospitalist Medicine Inpatient Medical Services/[facility] PAGER: [phone] Department of Neurosurgery Progress Note SUBJECTIVE: no acute events overnight. Pt complains of emiliana hand tingling. Drain intact with bulb at shoulder level. OBJECTIVE Physical BP 119/70 Pulse 74 Temp 36.6 C (97.8 F) (Temporal) Resp 18 Ht 5' (1.524 m) Wt 160 lb (72.6 kg) SpO2 94% BMI 31.25 kg/m NEUROLOGIC: A&O x3 VÁZQUEZ BUE strength 4+/5, emiliana weekend anchor 5/5 Sensation intact No issues swallowing Dressing C/D/I Drain with 60 out but bulb 3/4 full ASSESSMENT AND PLAN 72 y.o. female status post C3-6 ACDF post op day # 1 Pt progressing as expected Not very motivated-encouraged to increase activity and IS Continue with drain-keep lower than chest level Continue with PT/OT eval Pt may benefit from rehab Likely to be Dc'd in 1-2 days pending drain output and PT/OT eval Physical Therapy Facility/Department: Physical Therapy Initial Evaluation NAME: Pily Barnes : 1950 Date of Service: 03/03/2023 Discharge Recommendations: Intermediate Facility (home-going pt requires home health PT.) PT Equipment Recommendations Equipment Needed: No Assessment Requires PT Follow-Up: Yes Assessment: Pt admitted to [facility] with cervical stenosis of spinal canal, pt post-op C3-C6 ACDF on 03/02. PMH includes anxiety, bipolar disorder, CKD, HTN, rhabdomyolysis, subarachnoid hemorrhage and recurrent falls. Pt demonstrates impaired strength, balance, endurance, transfers and gait. Pt required Daniel for gait and Daniel-SBA for transfers with cueing for safe hand placement. Pt requires skilled PT while in the hospital to address limitations. Pt requires post-hospital therapy to prevent falls and prevent further hospitalization. Discharge recommendation is SNF, if home-going pt requires home health PT. Performance Deficits/Impairments: Decreased functional mobility , Decreased strength, Decreased balance, Decreased ADL status, Decreased endurance, Decreased safe awareness, Decreased sensation Activity Tolerance Comment: Limited by fatigue and shortness of breath Treatment Diagnosis: Weakness Decision Making: Low Complexity Treatment Initiated : Transfer training, education on donning/doffing brace Activity Tolerance Activity Tolerance: Patient limited by fatigue, Patient limited by endurance Activity Tolerance Comments: Pt reported shortness of breath with ambulation Patient Diagnosis(es): The encounter diagnosis was Cervical stenosis of spinal canal. has a past medical history of Anxiety, Aspirin long-term use, Asthma, Bipolar 1 disorder (HCC), Chronic kidney disease, Depression, Difficulty walking, High blood pressure, Lack of coordination, Mitral valve insufficiency, Muscle weakness, Presence of intraocular lens, Repeated falls, Rhabdomyolysis, Sleep apnea, and Traumatic subarachnoid hemorrhage without loss of consciousness (HCC). has a past surgical history that includes Thyroid surgery (N/A); Hysterectomy; and Cervical spine surgery (03/02/2023). Restrictions Restrictions/Precautions Restrictions/Precautions: Surgical Protocols, General Precautions Required Braces or Orthoses?: Yes Required Braces or Orthoses Cervical: c-collar (C-collar during out of bed activity) Position Activity Restriction Spinal Precautions: No spinal precautions per PT order and ortho note Vision/Hearing Cognition/Orientation Orientation Level: Oriented X4 Subjective General Chart Reviewed: Yes Patient Assessed for Rehabilitation Services: Yes Family / Caregiver Present: No Diagnosis: cervical stenosis of spinal canal, resultant C3-C6 ACDF Follows Commands: Impaired Other (Comment): Follows 1-2 step commands with increased time, delayed responses General Comment Comments: RN approved therapy Subjective Subjective: Pt alert, oriented and seated in chair at time of evaluation. Pt reported no neck pain, but some stiffness along posterior neck. Pt reported unchanged numbness/tingling along C8 dermatome, denies LE numbness/tingling. Patient Stated Goal: Pt wishes to receive more therapy upon discharge, unsure of facility ability to provide assistance for brace management Social/Functional History Social/Functional History Lives With: Alone Type of Home: Assisted living Home Layout: One level Home Access: Level entry Bathroom Toilet: Handicap height Bathroom Equipment: Grab bars around toilet Home Equipment: Rollator, Rolling walker (Pt reports ambulating as far as she can to meals and having transport via wheelchair the rest of the way. Pt reports primarily utilizing FWW.) Receives Help From: Facility staff (Pt reports local son visits occasionally) ADL Assistance: Needs assistance (Pt reports receiving assistance from facility for dressing and bathing, able to manage hygiene during toileting but requires assistance for dressing) Homemaking Assistance: Needs assistance Ambulation Assistance: Needs assistance With device?: Yes Device: rolling walker Transfer Assistance: Needs assistance (Pt states requiring some assistance for getting out of bed) Active Wrapper Sheeter: No Occupation: Retired Objective Observation/Palpation Observation: POLO drain, IV, wound dressing L anterior neck Edema: No significant edema noted in LE or neck AROM RLE (degrees) RLE General AROM: Adequate knee and hip ROM for transfers and gait AROM LLE (degrees) LLE General AROM: Adequate knee and hip ROM for transfers and gait Spine Cervical: Not assessed due to surgery Strength Other Other: Grossly 3/5 Bilat LE demonstrated by functional mobility and gait Sensation Overall Sensation Status: (Chronic numbness/tingling in C8 dermatome in Bilateral fingers) Bed mobility Comment: Not assessed due to pt seated in chair at time of evaluation Transfers Sit to Stand: Minimal Assistance, Stand by assistance Stand to sit: Minimal Assistance Comment: Pt required Daniel for sit > stand from recliner to FWW with tactile facilitation of forward trunk lean and cueing for hand placement on chair, required SBA to stand from toilet, pt utilized grab bars to assist. Pt required cueing for appropriate hand placement for stand > sit to recliner and toilet. Ambulation Ambulation: Yes Ambulation 1 Surface 1: Level tile Device 1: Rolling walker Assistance 1: Minimum assistance Quality of Gait Comment 1: Slow hitesh, decreased step length, decreased base of support. Distance (ft) 1: 25 ft x2 Comments 1: Pt able to navitgate walker during turns. Pt reports feeling weak and not being at baseline with mobility and walking "much slower". No loss of balance during gait. Pt reported some shortness of breath after ambulation. Balance Sitting - Static: Fair Sitting - Dynamic: Fair Standing - Static: Fair Standing - Dynamic: Fair Comments: Pt able to maintain sitting balance in recliner with Bilat UE support, able to maintain seated balance on toilet for hygiene SBA. Pt able to maintain standing balance with single UE support at sink for hand hygiene CGA, and ambulate with Bilat UE support on walker, no loss of balance. Plan Times per Week: 5-7 Plan Weeks: 4 Specific Instructions for Next Treatment: Assess bed mobility as pt reports requiring assistance with bed mobility Current Treatment Recommendations: Strengthening, Balance Training, Functional Mobility Training, Transfer Training, Endurance Training, Gait Training, ADL/Self-care Training, Home Exercise Program, Safety Education & Training, Patient/Caregiver Education & Training, Equipment Evaluation, Education, & procurement Safety Safety Devices Safety Devices in Place: Yes Type of Devices: Gait belt, No alarms engaged upon entry into room, All fall risk precautions in place, Patient at risk for falls, Call light within reach, Left in bed Restraints Restraints Initially in Place: No Outcomes Score AM-PAC Score AM-PAC Inpatient Mobility Raw Score (No Stairs) : 15 Goals Encounter Problems Encounter Problems (Active) Mobility Patient will ambulate 50 feet with modified independence and rolling walker in order to improve safety and independence with mobility. Start: 03/03/23 Expected End: 03/31/23 Pain - Adult Transfers Patient will perform bed mobility with SBA in order to improve independence and prepare for out of bed mobility. Start: 03/03/23 Expected End: 03/31/23 Patient will complete sit to stand transfer with modified independence to wheeled walker in order to improve safety and prepare for out of bed mobility. Start: 03/03/23 Expected End: 03/31/23 Education Education Given To: Patient Education Provided: PT Role, Plan of Care, Discharge recommendations, Precautions, Transfer Training, Energy Conservation, General Safety Education Provided Comments: Pt educated on general safety recommendations post-op, educated on how to don brace. Pt reported feeling unsure if she would have assistance at the assisted living facility to don/doff collar. Education Method: Verbal, Demonstration Education Outcome: Verbalized understanding, Continued education needed Therapy Time Individual Co-treatment Time In 09 Time Out 0930 Minutes 24 Timed Code Treatment Minutes: 8 Minutes (FA) Patient's Physical Therapy Plan of Care supervision is transferred to [facility] Rehab Department Physical Therapist. Goals and/or treatment plan was established in collaboration with patient/family/other representatives. Rosey Mckeon, SPT documented in this encounter [facility] 03-10-2023 Note Formatting of this n ote might be different from the original. TCC reviewed careport status of auth- still pending with [facility]. Will follow and assist with DC and transportation. [facility] 03-10-2023 Note Formatting of this n ote might be different from the original. TCC reviewed careport status of auth- still pending with [facility]. Will follow and assist with DC and transportation. [facility] 03-09-2023 Note Formatting of this n ote might be different from the original. Discharge med list and MAR information transmitted to [facility] via Careport per TCC request. 7000 completed in HENS. [facility] 03-09-2023 Note Formatting of this n ote might be different from the original. Discharge med list and MAR information transmitted to [facility] via Careport per TCC request. 7000 completed in HENS. [facility] 03-09-2023 Note Formatting of this n ote might be different from the original. Patient Choice Patient Name: PILY BARNES Date of : 1950 All Providers Sent Referral Name: [facility] Phone: [phone] Address: [address] [place] [id number] Name: Lc Mcdonald [employer] Address: [address] [place] [id number] [facility] 03-09-2023 Note Formatting of this n ote might be different from the original. Patient Choice Patient Name: PILY BARNES Date of : 1950 All Providers Sent [facility] Center Phone: [phone] Address: [address] [place] [address] [place] [address] Name: Lc Toroleo Address: [address] [place] [id number] [facility] 03-09-2023 Hospital course Narrative Discharge Summary Pily Barnes : 1950 ADMIT DATE: 03/02/2023 DISCHARGE DATE: 03/10/2023 PRIMARY CARE PHYSICIAN: KENIA MCKENZIE VISIT STATUS: Admission CODE STATUS: Full Code DISCHARGE DIAGNOSES: Principal Problem: Cervical stenosis of spinal canal HOSPITAL COURSE: The patient underwent C3-C4, C4-C5, C5-C6 anterior cervical decompression and fusion on the day of admission. Post-operatively, the patient was transferred to the PACU in stable condition and then to [facility]. They received 24 hours of prophylactic IV antibiotics. DVT prophylaxis included SCDs and early ambulation. Diet was advanced, patient was ambulated and able to urinate, and pain was reasonably controlled. The patient progressed well throughout the hospitalization and was deemed stable for discharge to SNF on the above listed date. SIGNIFICANT DIAGNOSTIC STUDIES: CBC, BMP, PT/INR CONSULTANTS: Internal medicine PT/OT RECOMMENDED NEXT STEPS: Follow up with PCP and Dr Mcgill DISCHARGE MEDICATIONS: Medication List CONTINUE taking these medications albuterol 108 (90 Base) MCG/ACT inhaler amLODIPine 2.5 MG tablet Commonly known as: Norvasc ARIPiprazole 5 MG tablet Commonly known as: Abilify Breo Ellipta 100-25 MCG/ACT aerosol powder Generic drug: Fluticasone Furoate-Vilanterol buPROPion XL 300 MG 24 hr tablet Commonly known as: Wellbutrin XL Calcium + Vitamin D3 600-10 MG-MCG tablet Generic drug: Calcium Carb-Cholecalciferol cholecalciferol 125 MCG (5000 UT) tablet Commonly known as: Vitamin D-3 clonazePAM 0.5 MG tablet Commonly known as: KlonoPIN FLUoxetine 20 MG capsule Commonly known as: PROzac fluticasone 50 MCG/ACT nasal spray Commonly known as: Flonase High Potency Multivitamin tablet Invega Sustenna 39 MG/0.25ML suspension prefilled syringe Generic drug: paliperidone palmitate ER lamoTRIgine 25 MG tablet Commonly known as: LaMICtal lisinopril 20 MG tablet Loratadine 10 MG capsule nystatin [id number] UNIT/GM powder Commonly known as: Mycostatin ondansetron 4 MG tablet Commonly known as: Zofran STOP taking these medications Hibiclens 4 % external liquid Generic drug: chlorhexidine ASK your doctor about these medications naloxone 4 mg/0.1 mL nasal spray Commonly known as: Narcan Administer 1 spray (4 mg) into affected nostril(s) Once for 1 dose. May repeat every 2-3 minutes if needed, alternating nostrils, until medical assistance becomes available. Ask about: Should I take this medication? Where to Get Your Medications These medications were sent to [facility] [address] [place], [place] [address] [address] Hours: Monday to Monday 10 am to 6 pm naloxone 4 mg/0.1 mL nasal spray DIET: Adult diet Regular ACTIVITY: No heavy lifting. COMPLEXITY OF FOLLOW UP: [] Moderate Complexity: follow up within 7-14 calendar days (08747) [] Severe Complexity: follow up within 7 calendar days (38600) FOLLOW UP TESTING, PENDING RESULTS OR REFERRALS AT TRANSITIONAL CARE VISIT: [] Yes [] No PENDING STUDIES: Covid antigen DISPOSITION: Skilled Facility FACILITY/HOME CARE AGENCY NAME: [facility] Follow up with Alonso Mcgill MD [address] [facility] [id number] Follow up 03/13/2023 at 9:30 AM INSTRUCTIONS TO MA/SW: Please call patient on day after discharge (must document patient contacted within 2 business days of discharge). FOLLOW UP QUESTIONS FOR MA/SW: 1. Did you get medications filled and taking them as instructed from discharge? 2. Are you following your discharge instructions from your hospital stay? 3. Please confirm patient is scheduled for a follow up appointment within the above time frame. DISCHARGE TIME: < 30 minutes SIGNED: Carlton Hsu PA-C 03/10/2023, 10:06 AM documented in this encounter [facility] 03-09-2023 Note Formatting of this n ote might be different from the original. Rec'd careport message that pts SNF [facility] is able to accept. Task sent to [facility] automotive tire testing supervisor, Melissa Lowe requesting precert with [employer] today. Awaiting insurance determination. [facility] 03-09-2023 Note Formatting of this n ote might be different from the original. Rec'd careport message that pts SNF [facility] [place] is able to accept. Task sent to [facility] automotive tire testing supervisor, Melissa Lowe requesting precert with [facility] Medicare today. Awaiting insurance determination. T [facility] 03-09-2023 Note Formatting of this n ote might be different from the original. Referral placed to [facility]F- [facility] via Careport per TCC request. Await review and response regarding ability to accept. TCC notified. T [facility] 03-09-2023 Note Formatting of this n ote might be different from the original. Referral placed to [facility]- [facility] via Careport per TCC request. Await review and response regarding ability to accept. TCC notified. T [facility] 03-09-2023 Note Formatting of this n ote is different from the original. Images from the original note were not included. Care Management Progress Note TCC met w/pt to discuss DCP after P2P denial upheld. Pt requested SNF referral to [facility] and [facility]. Task sent to [facility] for above referrals. PT eval current 03/08- recommending SNF. Therapy dept called and requested updated OT for precert today. Active DC order noted. Discharge Milestones and Delays Expected Date/Time: 03/10/2023 Afternoon Disposition: Inpatient Rehab Facility Discharge Milestones Completed Place discharge order Complete med reconciliation Case mgmt discharge readiness Clinical Stability Diagnsotic Workup Expected Discharge History Expected Date/Time Set By Reviewed At 03/10/2023 Afternoon LORRAINE Elizabeth 03/09/2023 9:28 AM auth pending 03/08/2023 Afternoon Marcello Castro RN 03/08/2023 11:17 AM 03/08/2023 Afternoon Marcello Castro RN 03/08/2023 8:08 AM 03/06/2023 Afternoon Carlton Hsu PA-C 03/06/2023 10:54 AM 03/07/2023 Celena Maria RN 03/06/2023 10:17 AM 03/04/2023 Mag Middleton RN 03/03/2023 7:35 AM 03/04/2023 Cee Biggs APRN - [facility] 03/02/2023 3:10 PM 03/04/2023 Cee Biggs APRN - [facility] 03/02/2023 1:22 PM 03/04/2023 Cee Biggs APRN - [facility] 03/02/2023 9:02 AM Length of Stay (Days): 7 GMLOS: 2.6 [facility] 03-09-2023 Note Formatting of this n ote is different from the original. Images from the original note were not included. Care Management Progress Note TCC met w/pt to discuss DCP after P2P denial upheld. Pt requested SNF referral to [facility] and [facility]. Task sent to [facility] for above referrals. PT eval current 03/08- recommending SNF. Therapy dept called and requested updated OT for precert today. Active DC order noted. Discharge Milestones and Delays Expected Date/Time: 03/10/2023 Afternoon Disposition: Inpatient Rehab Facility Discharge Milestones Completed Place discharge order Complete med reconciliation Case mgmt discharge readiness Clinical Stability Diagnsotic Workup Expected Discharge History Expected Date/Time Set By Reviewed At 03/10/2023 Afternoon LORRAINE Elizabeth 03/09/2023 9:28 AM auth pending 03/08/2023 Afternoon Marcello Castro RN 03/08/2023 11:17 AM 03/08/2023 Afternoon Marcello Castro RN 03/08/2023 8:08 AM 03/06/2023 Afternoon Carlton Hsu PA-C 03/06/2023 10:54 AM 03/07/2023 Celena Maria, JOSELYN 03/06/2023 10:17 AM 03/04/2023 Mag Middleton RN 03/03/2023 7:35 AM 03/04/2023 Cee Biggs, WATER SYSTEMS DESIGNER - HEAD USHER 03/02/2023 3:10 PM 03/04/2023 Cee Biggs WATER SYSTEMS DESIGNER - HEAD USHER 03/02/2023 1:22 PM 03/04/2023 Cee Biggs, WATER SYSTEMS DESIGNER - HEAD USHER 03/02/2023 9:02 AM Length of Stay (Days): 7 GMLOS: 2.[address] [facility] 03-08-2023 Note Formatting of this n ote is different from the original. Images from the original note were not included. Care Management Progress Note P2P denied for [facility]. SNF list given to pt with explanation of 5 star rating and [facility]. Pt would like to discuss with family. TCC will F/U for choices. Discharge Milestones and Delays Expected Date/Time: 03/08/2023 Afternoon Disposition: Inpatient Rehab Facility Transport status: No current request Discharge Milestones Place discharge order Complete med reconciliation Case mgmt discharge readiness Clinical Stability Diagnsotic Workup Expected Discharge History Expected Date/Time Set By Reviewed At 03/08/2023 Afternoon Marcello Castro RN 03/08/2023 8:08 AM auth pending 03/06/2023 Afternoon Carlton Hsu PA-C 03/06/2023 10:54 AM 03/07/2023 Celena Maria RN 03/06/2023 10:17 AM 03/04/2023 Mag Middleton, JOSELYN 03/03/2023 7:35 AM 03/04/2023 Cee Biggs, WATER SYSTEMS DESIGNER - HEAD USHER 03/02/2023 3:10 PM 03/04/2023 Cee Biggs WATER SYSTEMS DESIGNER - HEAD USHER 03/02/2023 1:22 PM 03/04/2023 Cee Biggs, WATER SYSTEMS DESIGNER - HEAD USHER 03/02/2023 9:02 AM Length of Stay (Days): 6 GMLOS: 2.[address] [facility] 03-08-2023 Note Formatting of this n ote is different from the original. Images from the original note were not included. Care Management Progress Note P2P denied for [facility]. SNF list given to pt with explanation of 5 star rating and [facility]. Pt would like to discuss with family. TCC will F/U for choices. Discharge Milestones and Delays Expected Date/Time: 03/08/2023 Afternoon Disposition: Inpatient Rehab Facility Transport status: No current request Discharge Milestones Place discharge order Complete med reconciliation Case mgmt discharge readiness Clinical Stability Diagnsotic Workup Expected Discharge History Expected Date/Time Set By Reviewed At 03/08/2023 Afternoon Marcello Castro RN 03/08/2023 8:08 AM auth pending 03/06/2023 Afternoon Carlton Hsu PA-C 03/06/2023 10:54 AM 03/07/2023 Celena Maria, JOSELYN 03/06/2023 10:17 AM 03/04/2023 Mag Middleton, JOSELYN 03/03/2023 7:35 AM 03/04/2023 Cee Biggs, WATER SYSTEMS DESIGNER - HEAD USHER 03/02/2023 3:10 PM 03/04/2023 Cee Biggs WATER SYSTEMS DESIGNER - HEAD USHER 03/02/2023 1:22 PM 03/04/2023 Cee Biggs APRN - HEAD USHER 03/02/2023 9:02 AM Length of Stay (Days): 6 GMLOS: 2.[address] [facility] 03-08-2023 Plan of care note Problem: Pain - Adult Goal: Verbalizes/displays adequate comfort level or baseline comfort level 03/08/2023930 by Meagan Jurado RN Outcome: Completed 03/08/2023929 by Meagan Jurado RN Outcome: Progressing Problem: Safety - Adult Goal: Free from fall injury 03/08/2023930 by Meagan Jurado RN Outcome: Completed 03/08/2023929 by Meagan Jurado RN Outcome: Progressing Problem: Discharge Planning Goal: Discharge to home or other facility with appropriate resources 03/08/2023930 by Meagan Jurado RN Outcome: Completed 03/08/2023929 by Meagan Jurado RN Outcome: Progressing Problem: Skin/Tissue Integrity - Adult Goal: Incisions, wounds, or drain sites healing without S/S of infection 03/08/2023930 by Meagan Jurado RN Outcome: Completed 03/08/2023929 by Meagan Jurado RN Outcome: Progressing Problem: Musculoskeletal - Adult Goal: Return mobility to safest level of function 03/08/2023930 by Meagan Jurado RN Outcome: Completed 03/08/2023929 by Meagan Jurado RN Outcome: Progressing Problem: Knowledge Deficit Goal: Patient/family/caregiver demonstrates understanding of disease process, treatment plan, medications, and discharge instructions 03/08/2023930 by Meagan Jurado RN Outcome: Completed 03/08/2023929 by Meagan Jurado RN Outcome: Progressing Problem: Potential for Compromised Skin Integrity Goal: Skin Integrity is Maintained or Improved 03/08/2023930 by Meagan Jurado RN Outcome: Completed 03/08/2023929 by Meagan Jurado RN Outcome: Progressing Goal: Nutritional status is improving 03/08/2023930 by Meagan Jurado RN Outcome: Completed 03/08/2023929 by Meagan Jurado RN Outcome: Progressing Problem: Urinary Incontinence Goal: Perineal skin integrity is maintained or improved 03/08/2023930 by Meagan Jurado RN Outcome: Completed 03/08/2023929 by Meagan Jurado RN Outcome: Progressing [facility] 03-07-2023 Note Formatting of this n ote might be different from the original. Received secure chat from [facility] is requesting P2P for [place] by 11:30 am March 08. [phone] option 5. Ref# [id number]. Need member ID, name, [place] Priest APRN HEAD USHER was on secure chat, responded she will do tomorrow. . [facility] 03-07-2023 Note Formatting of this n ote might be different from the original. Received secure chat from [facility] is requesting P2P for Cameron by 11:30 am March 08. [phone] option 5. Ref# [id number]. Need member ID, name, [place] Priest APRN, CNP was on secure chat, responded she will do tomorrow. . [facility] 03-07-2023 Note Formatting of this n ote might be different from the original. SW catalyst concentration operator: Received secure chat, from RN asking if auth back for [facility]. [facility] [place] indicated auth is not back, anticipate tomorrow. Sent message back to RN, no auth yet, looking at tomorrow as insurance closed for holiday today.. . [facility] 03-07-2023 Note Formatting of this n ote might be different from the original. SW catalyst concentration operator: Received secure chat, from RN asking if auth back for [facility]. Called Amy [facility] hospice community liaison. Amy indicated auth is not back, anticipate tomorrow. Sent message back to RN, no auth yet, looking at tomorrow as insurance closed for holiday today.. . T [facility] 03-07-2023 Plan of care note Problem: Pain - Adult Goal: Verbalizes/displays adequate comfort level or baseline comfort level Outcome: Progressing Problem: Safety - Adult Goal: Free from fall injury Outcome: Progressing Problem: Discharge Planning Goal: Discharge to home or other facility with appropriate resources Outcome: Progressing Problem: Skin/Tissue Integrity - Adult Goal: Incisions, wounds, or drain sites healing without S/S of infection Outcome: Progressing Problem: Musculoskeletal - Adult Goal: Return mobility to safest level of function Outcome: Progressing Problem: Knowledge Deficit Goal: Patient/family/caregiver demonstrates understanding of disease process, treatment plan, medications, and discharge instructions Outcome: Progressing Problem: Potential for Compromised Skin Integrity Goal: Skin Integrity is Maintained or Improved Outcome: Progressing Goal: Nutritional status is improving Outcome: Progressing Problem: Urinary Incontinence Goal: Perineal skin integrity is maintained or improved Outcome: Progressing The patient is Moderately Stable - Low risk of patient condition declining or worsening The patient's goals for the shift include walk around in the room The clinical goals for the shift include PAIN CONTROL, increase mobility Over the shift, the patient did not make progress toward the following goals. Barriers to progression include pain and mobility. Recommendations to address these barriers include work with physical therapy and ambulation around the room TID. [facility] 03-06-2023 Plan of care note Problem: Pain - Adult Goal: Verbalizes/displays adequate comfort level or baseline comfort level Outcome: Progressing Problem: Safety - Adult Goal: Free from fall injury Outcome: Progressing Problem: Discharge Planning Goal: Discharge to home or other facility with appropriate resources Outcome: Progressing Problem: Skin/Tissue Integrity - Adult Goal: Incisions, wounds, or drain sites healing without S/S of infection Outcome: Progressing [facility] 03-06-2023 Note Formatting of this n ote might be different from the original. Discharge med list information transmitted to [facility] via Careport per TCC request. [facility] 03-06-2023 Note Formatting of this n ote might be different from the original. Discharge med list information transmitted to [facility] via [facility]port per TCC request. [facility] 03-06-2023 Note Formatting of this n ote might be different from the original. Still awaiting insurance auth, discharge order noted in [facility]. Will need auth prior to discharge. SKIP TRACER tasked to send 24 hour Mar and DC paperwork. Per [facility] hospice community liaison, insurance requested updated notes this AM and requested information was sent over. [facility] 03-06-2023 Note Formatting of this n ote might be different from the original. Still awaiting insurance auth, discharge order noted in Epic. Will need auth prior to discharge. SKIP TRACER tasked to send 24 hour Mar and DC paperwork. Per [facility] hospice community liaison, insurance requested updated notes this AM and requested information was sent over. [facility] 03-06-2023 Note Formatting of this n ote is different from the original. Images from the original note were not included. Care Management Progress Note Pt remains on H6, PT OT rec IPR. Insurance auth pending for [facility]. On Ivf and Na [address], Neuro following. Will anticipate discharge to [facility] once auth is obtained, TCC to assist and follow as needed. Discharge Milestones and Delays Expected Date/Time: 03/06/2023 Afternoon Disposition: Inpatient Rehab Facility Transport status: No current request Discharge Milestones Place discharge order Complete med reconciliation Case mgmt discharge readiness Clinical Stability Diagnsotic Workup Expected Discharge History Expected Date/Time Set By Reviewed At 03/06/2023 Afternoon Carlton Hsu PA-C 03/06/2023 10:54 AM auth pending 03/07/2023 Celena Maria RN 03/06/2023 10:17 AM 03/04/2023 Mag Middleton RN 03/03/2023 7:35 AM 03/04/2023 TIFFANIE Bush CNP 03/02/2023 3:10 PM 03/04/2023 TIFFANIE Bush CNP 03/02/2023 1:22 PM 03/04/2023 TIFFANIE Bush CNP 03/02/2023 9:02 AM Length of Stay (Days): 4 GMLOS: 2.[address] [facility] 03-06-2023 Note Formatting of this n ote is different from the original. Images from the original note were not included. Care Management Progress Note Pt remains on H6, PT OT rec IPR. Insurance auth pending for [facility]. On Ivf and Na 132, Neuro following. Will anticipate discharge to [facility] once auth is obtained, TCC to assist and follow as needed. Discharge Milestones and Delays Expected Date/Time: 03/06/2023 Afternoon Disposition: Inpatient Rehab Facility Transport status: No current request Discharge Milestones Place discharge order Complete med reconciliation Case mgmt discharge readiness Clinical Stability Diagnsotic Workup Expected Discharge History Expected Date/Time Set By Reviewed At 03/06/2023 Afternoon Carlton Hsu PA-C 03/06/2023 10:54 AM auth pending 03/07/2023 Celena Maria RN 03/06/2023 10:17 AM 03/04/2023 Mag Middleton RN 03/03/2023 7:35 AM 03/04/2023 TIFFANIE Bush CNP 03/02/2023 3:10 PM 03/04/2023 TIFFANIE Bush CNP 03/02/2023 1:22 PM 03/04/2023 TIFFANIE Bush CNP 03/02/2023 9:02 AM Length of Stay (Days): 4 GMLOS: 2.[address] [facility] 03-06-2023 Hospital Discharge instructions Carlton Hsu PA-C - 03/06/2023 10:45 AM EDT Wound care: Keep incision open to air, do not apply creams or lotions to incision You may shower, but do not soak incision in a tub or pool Call the office immediately if you notice any drainage, pus, or signs of infection General Instructions: No lifting greater than 10 pounds for [address] while using opioid pain medications or muscle relaxants Limit twisting, turning, and bending motions at the neck Avoid NSAIDs such as Ibuprofen, Advil, Aleve, Naproxen, and Mobic Avoid nicotine in all forms Pain medication may constipate you requiring strong laxatives such as milk of magnesia or magnesium citrate Adequate Vitamin D3 and calcium in your diet are recommended for healing of fusion Wear C-collar when riding in a car or if restless sleeper, may be removed for rest, eating, and hygiene Follow up with Dr. Mcgill on 03/13/2023 at 9:30 AM Call the office with any questions or concerns, Ila Price RN - 03/03/2023 7:35 AM EDT Continuity of Care Form Patient Name: Pily Barnes : 1950 Admit date: 03/02/2023 Discharge date: 03/10/2023 Code Status Order: Full Code Advance Directives: N Admitting Physician: Alonso Mcgill MD PCP: KENIA MCKENZIE MD Discharging Nurse: KAVIN Discharging Hospital Unit/Room#: [id number]/[id number] A Discharging Unit Phone Number: [phone] Emergency Contact: Extended Emergency Contact Information Primary Emergency Contact: Claudia Barnes Relation: Other Secondary Emergency Contact: Nathanael Barnes Relation: Other Past Surgical History: Past Surgical History: Procedure Laterality Date CERVICAL SPINE SURGERY 03/02/2023 C3-C6 ANTERIOR CERVICAL DECOMPRESSION, FUSION HYSTERECTOMY THYROID SURGERY N/A half Immunization History: Immunization History Administered Date(s) Administered Influenza, High Dose Seasonal, Preservative Free 06/06/2016, 08/07/2017, 05/21/2019 Influenza, High-dose Seasonal, Quadrivalent, Preservative Free 06/08/2020, 10/19/2021 Influenza, seasonal, injectable, preservative free 08/23/2013 Influenza, trivalent, adjuvanted 06/08/2018 Pneumococcal Conjugate PCV 13 02/15/2017 Pneumococcal Polysaccharide PPSV23 03/20/2018 Td (adult), 5 Lf tetanus toxoid, preservative free, adsorbed 07/02/2019 Zoster, Recombinant 06/08/2018, 10/05/2018 Active Problems: Medical Problems Problem List * (Principal) Cervical stenosis of spinal canal Allergic rhinitis Suicide attempt (HCC) Bipolar 1 disorder, depressed, severe (CMS/HCC) (HCC) Cardiomegaly Generalized anxiety disorder Herpes simplex S/P partial thyroidectomy Hypertensive heart disease without congestive heart failure Insomnia Mild intermittent asthma Mixed hyperlipidemia Moderate persistent asthma without complication Multiple thyroid nodules Nonrheumatic aortic valve stenosis Patent foramen ovale Primary hypertension Recurrent falls 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) Shortness of breath Stage 3 chronic kidney disease (HCC) Status post hysterectomy Syncope and collapse Traumatic subdural hematoma of neuraxis (HCC) Urge incontinence of urine Vitamin D deficiency Isolation/Infection: No active isolations No active infections Nurse Assessment: Last Vital Signs: BP 130/80 (BP Location: Right arm, Patient Position: Sitting) Pulse 89 Temp 37.2 C (98.9 F) (Temporal) Resp 16 Ht 5' (1.524 m) Wt 160 lb (72.6 kg) SpO2 93% BMI 31.25 kg/m Last documented pain score (0-10 scale): Last Weight: Wt Readings from Last 1 Encounters: 03/02/23 160 lb (72.6 kg) Mental Status: NARESH Patient Mental Status: oriented, alert, coherent, and logical IV Access: NARESH IV Access: None Nursing Mobility/ADLs: Walking Minimal assistance Transfer Minimal assistance Bathing Minimal assistance Dressing Independent Toileting Independent Feeding Independent Aviation Medicine Specialist Independent Med Delivery yes Wound Care Documentation and Therapy: Wound/Incision 03/02/23 Incision Neck Anterior (Active) Site Assessment Unable to assess 03/03/23 0500 Closure Unable to assess 03/03/23 0500 Drainage Description Serosanguineous 03/03/23 0500 Odor None 03/03/23 0500 Drainage Amount None 03/03/23 0500 Primary Dressing Gauze;Transparent film 03/03/23 0500 Dressing Status Intact;Dry 03/03/23 0500 Number of days: 0 Elimination: Continence: Bowel: yes Bladder: yes Urinary Catheter: None Colostomy/Ileostomy/Ileal Conduit: None Date of Last BM: 03/08/2023 Intake/Output Summary (Last 24 hours) at 03/09/2023 1225 Last data filed at 03/09/2023 0800 Gross per 24 hour Intake 340 ml Output -- Net 340 ml I/O last 3 completed shifts: In: 100 (1.4 mL/kg) [P.O.:100] Out: - (0 mL/kg) Weight: 72.6 kg Safety Concerns: history of falls (last 30 days) and at risk for falls Impairments/Disabilities: none Nutrition Therapy: Current Nutrition Therapy: Oral diet: general Routes of Feeding: oral Liquids: no restrictions Daily Fluid Restriction: no Last Modified Barium Swallow with Video (Video Swallowing Test): not done Treatments at the Time of Hospital Discharge: Respiratory Treatments: Oxygen Therapy: is not on home oxygen therapy. Ventilator: No ventilator support Rehab Therapies: physical therapy and occupational therapy Weight Bearing Status/Restrictions: no restriction Other Medical Equipment (for information only, NOT a DME order): walker Other Treatments: Patient's personal belongings (please select all that are sent with patient): suitcase with patient in the room RN SIGNATURE: Discharging nurse: Ila Price RN on 03/10/2023 CASE MANAGEMENT/SOCIAL WORK SECTION Inpatient Status Date: 03/02/2023 Readmission Risk Assessment Score: @[email or web address]@ Discharging to Facility/ Agency [place] [phone] ext [phone] Dialysis Facility (if applicable) Name: Address: Dialysis Schedule: Phone: Fax: Noise Tester/Compensation Advisor signature: ICIAN SECTION Prognosis: good Condition at Discharge: stable Rehab Potential (if transferring to Rehab): good Recommended Labs or Other Treatments After Discharge: Follow up with Dr Mcgill on 03/13/2023 at 9:30 AM Physician Certification: I certify the above information and transfer of Pily Barnes is necessary for the continuing treatment of the diagnosis listed and that she requires retirement facility for less than 30 days. Update Admission H&P: No change in H&P PHYSICIAN SIGNATURE: documented in this encounter [facility] 03-06-2023 Note Formatting of this n ote might be different from the original. [facility] precert pending for [facility]. [facility] 03-06-2023 Note Formatting of this n ote might be different from the original. [facility] precert pending for [facility]. [facility] 03-05-2023 Plan of care note Problem: Pain - Adult Goal: Verbalizes/displays adequate comfort level or baseline comfort level Outcome: Progressing Problem: Safety - Adult Goal: Free from fall injury Outcome: Progressing Problem: Discharge Planning Goal: Discharge to home or other facility with appropriate resources Outcome: Progressing Problem: Skin/Tissue Integrity - Adult Goal: Incisions, wounds, or drain sites healing without S/S of infection Outcome: Progressing Problem: Musculoskeletal - Adult Goal: Return mobility to safest level of function Outcome: Progressing Problem: Knowledge Deficit Goal: Patient/family/caregiver demonstrates understanding of disease process, treatment plan, medications, and discharge instructions Outcome: Progressing Problem: Potential for Compromised Skin Integrity Goal: Skin Integrity is Maintained or Improved Outcome: Progressing Goal: Nutritional status is improving Outcome: Progressing Problem: Urinary Incontinence Goal: Perineal skin integrity is maintained or improved Outcome: Progressing The patient is Moderately Stable - Low risk of patient condition declining or worsening The patient's goals for the shift include PAIN CONTROL The clinical goals for the shift include PAIN CONTROL [facility] 03-04-2023 Plan of care note Problem: Pain - Adult Goal: Verbalizes/displays adequate comfort level or baseline comfort level Outcome: Progressing Flowsheets (Taken 03/04/2023 0900) Verbalizes/displays adequate comfort level or baseline comfort level: Encourage patient to monitor pain and request assistance Assess pain using appropriate pain scale Administer analgesics based on type and severity of pain and evaluate response Implement non-pharmacological measures as appropriate and evaluate response Problem: Safety - Adult Goal: Free from fall injury Outcome: Progressing Flowsheets (Taken 03/04/2023 0900) Free from fall injury: Instruct family/caregiver on patient safety Note: Side rails upx2, bed low, brakes on, call light in reach. The patient is Moderately Stable - Low risk of patient condition declining or worsening The patient's goals for the shift include PAIN CONTROL The clinical goals for the shift include PAIN CONTROL [facility] 03-03-2023 Note Formatting of this n ote might be different from the original. [facility] via [facility] per TCC request. Await review and response regarding ability to accept. TCC notified. T [facility] 03-03-2023 Note Formatting of this n ote might be different from the original. Referral [facility] to [facility] via [facility] per TCC request. Await review and response regarding ability to accept. TCC notified. T [facility] 03-03-2023 Note Formatting of this n ote might be different from the original. Addendum to earlier note: Pt has been evaluated by PT with recommendation of SNF. I asked [facility] liaison to evaluate pt for rehab and she is appropriate. I spoke with pt and her son regarding discharge options. Pt would like to try for [facility]. Liaozzie Calvin made aware. Will ask SKIP TRACER to send referral via careport. Pt awaiting OT eval so precert can be started. T [facility] 03-03-2023 Note Formatting of this n ote might be different from the original. Addendum to earlier note: Pt has been evaluated by PT with recommendation of SNF. I asked [facility] liaison to evaluate pt for rehab and she is appropriate. I spoke with pt and her son regarding discharge options. Pt would like to try for [facility]. Liaison Marixa made aware. Will ask SKIP TRACER to send referral via careport. Pt awaiting OT eval so precert can be started. [facility] 03-03-2023 Note Formatting of this n ote might be different from the original. Care Managment Initial Assessment Date: 03/03/2023 Patient Name: Pily Barnes : 1950 Patient Information Source of Information: Patient Cognition/Language: WFL - Within Functional Limits Permission given to speak with patient digital sales representative/caregiver as indicated: Confirmation of Payer with patient/family: Yes Payer Name: [employer] Medicare : No Confirmation of Primary Care Physician: Confirmed PCP Name: Dr. Kenia Mckenzie Seen in last 2 years?: Yes Primary Caregiver: Other (Comment) (staff at assisted living facility) If assistance needed, confirmed caregiver ready, willing and able to care for patient at discharge: Confirmed with: Living Arrangements Current Residence: Private Residence (Assisted Living) Number of Floors 1 Number of Entry Steps: Bed/Bath Levels: Both first floor Facility: Assisted Living Facility Name: Plan to Return: Lives with: Other (Comment) (AL) Support Systems: Family members Activities of Daily Living Ambulation: Assistance (uses walker or w/c) Bathing/Dressing: Assistance Elimination/Continence/Toileting: Assistance Feeding: Independent Who Assists with Activities of Daily Living: AL staff Instrumental Activities of Daily Living Prescription Coverage: Yes Pharmacy Used: [facility] Medication Management: Transportation/Shopping: Assistance Provider Transportation/Shopping Assistance Provider Name: family Transportation Mode: Needs Assistance with Transportation at Discharge: Yes Meal Preparation: Assistance Provider Laundry/Cleaning: Assistance Provider Finances/Bill Paying: Assistance Provider Communication: Independent Types of Care Services/Equipment Utilized Care Services: Dialysis Type: Durable Medical Equipment: Walker, Wheelchair (standard or power) Patient's Goal/Discharge Plan Patient expects to be discharged to: return to [facility] with possible home care Discharge Planning Actions: Continue to follow Patient's Choice Rights and [employer] and Collaborative Relationships Disclosed as Indicated for Post-Acute Care: Interdisciplinary Team Engagement: Social Work Referral for: Additional Information: 72 yo female admitted to for surgery 03/02/23: C3-6 Anterior cervical decompression and fusion. Pt has surgical neck drain and wearing c-collar. PT/OT evals ordered. Met with pt; explained role of tcc. Pt lives at [facility] in [place]. She states she does need assistance with adls and uses walker and w/c at facility. Await PT/OT recommendations and will call facility to verify that she will be able to return at discharge. Mag Middleton RN [facility] [employer] 03-03-2023 Note Formatting of this n ote might be different from the original. Care Managment Initial Assessment Date: 03/03/2023 Patient Name: Pily Barnes : 1950 Patient Information Source of Information: Patient Cognition/Language: WFL - Within Functional Limits Permission given to speak with patient digital sales representative/caregiver as indicated: Confirmation of Payer with patient/family: Yes Payer Name: [facility] Medicare : No Confirmation of Primary Care Physician: Confirmed PCP Name: Dr. Kenia Mckenzie Seen in last 2 years?: Yes Primary Caregiver: Other (Comment) (staff at assisted living facility) If assistance needed, confirmed caregiver ready, willing and able to care for patient at discharge: Confirmed with: Living Arrangements Current Residence: Private Residence (Assisted Living) Number of Floors 1 Number of Entry Steps: Bed/Bath Levels: Both first floor Facility: Assisted Living Facility Name: Plan to Return: Lives with: Other (Comment) (AL) Support Systems: Family members Activities of Daily Living Ambulation: Assistance (uses walker or w/c) Bathing/Dressing: Assistance Elimination/Continence/Toileting: Assistance Feeding: Independent Who Assists with Activities of Daily Living: AL staff Instrumental Activities of Daily Living Prescription Coverage: Yes Pharmacy Used: [facility] Medication Management: Transportation/Shopping: Assistance Provider Transportation/Shopping Assistance Provider Name: family Transportation Mode: Needs Assistance with Transportation at Discharge: Yes Meal Preparation: Assistance Provider Laundry/Cleaning: Assistance Provider Finances/Bill Paying: Assistance Provider Communication: Independent Types of Care Services/Equipment Utilized Care Services: Dialysis Type: Durable Medical Equipment: Walker, Wheelchair (standard or power) Patient's Goal/Discharge Plan Patient expects to be discharged to: return to [place] with possible home care Discharge Planning Actions: Continue to follow Patient's Choice Rights and [employer] and Collaborative Relationships Disclosed as Indicated for Post-Acute Care: Interdisciplinary Team Engagement: Social Work Referral for: Additional Information: 72 yo female admitted to for surgery 03/02/23: C3-6 Anterior cervical decompression and fusion. Pt has surgical neck drain and wearing c-collar. PT/OT evals ordered. Met with pt; explained role of tcc. Pt lives at [facility] in [place]. She states she does need assistance with adls and uses walker and w/c at facility. Await PT/OT recommendations and will call facility to verify that she will be able to return at discharge. Mag Middleton RN [facility] [employer] 03-03-2023 Note Formatting of this n ote might be different from the original. Wire Inspector following case for Discharge Needs. [facility] [employer] 03-03-2023 Note Formatting of this n ote might be different from the original. Wire Inspector following case for Discharge Needs. [facility] [employer] 03-02-2023 Consult note Associated Order (s): IP CONSULT TO INTERNAL MEDICINE Images from the original note were not included. Hospital Medicine Consult Patient - Pily Barnes, Age - 72 y.o. - 1950 Room Number - [id number] Consulting - Alonso Mcgill MD Primary Care Physician - KENIA MCKENZIE [facility] # - [id number] Date of Admission - 03/02/2023 8:38 AM Hospital Day - 0 Reason for Consult: Medical Management HISTORY OF PRESENT ILLNESS: Pily is a 72 y.o. female POD# 0 C3-C4, C4-C5, C5-C6 ACDF. Per surgical documentation no complication or concern reported. USACS consulted for medical management. Hx significant for Bipolar I w/ anxiety/depression, HTN, CKD (unspecified), Asthma. On arrival to room Pt awake, alert and conversant. Reports post-surgical pain however currently managed w/ PRN analgesia. No other concern reported at time of evaluation - Pmhx notes prior sleep apnea. When I inquired about this, Pt states that while she knows she snores, does not believe that she has apneic events and has never been tested for CPAP use Past Medical History: Past Medical History: Diagnosis Date Anxiety Aspirin long-term use history Asthma Bipolar 1 disorder (HCC) Chronic kidney disease Depression Difficulty walking High blood pressure Lack of coordination Mitral valve insufficiency Muscle weakness Presence of intraocular lens Repeated falls Rhabdomyolysis Sleep apnea Traumatic subarachnoid hemorrhage without loss of consciousness (HCC) Past Surgical History: Past Surgical History: Procedure Laterality Date CERVICAL SPINE SURGERY 03/02/2023 C3-C6 ANTERIOR CERVICAL DECOMPRESSION, FUSION HYSTERECTOMY THYROID SURGERY N/A half Medications: acetaminophen, 650 mg, Oral, q6h amLODIPine, 2.5 mg, Oral, Daily ARIPiprazole, 5 mg, Oral, Daily buPROPion XL, 150 mg, Oral, Daily ceFAZolin, 2,000 mg, IntraVENous, q8h cetirizine, 10 mg, Oral, Daily docusate sodium, 100 mg, Oral, BID FLUoxetine, 60 mg, Oral, Daily lamoTRIgine, 50 mg, Oral, Daily lisinopril, 20 mg, Oral, Daily mometasone-formoterol, 2 puff, Inhalation, BID nystatin, , Topical, BID polyethylene glycol (PEG) 3350, 17 g, Oral, Daily sodium chloride 0.9%, 10 mL, IntraVENous, 2 times per day lactated Ringer's, 50 mL/hr, Last Rate: Stopped (03/02/23 1315) sodium chloride, 75 mL/hr, Last Rate: 75 mL/hr (03/02/23 1716) PRN medications: albuterol, bisacodyl, bisacodyl, morphine sulfate OR morphine sulfate, ondansetron ODT OR ondansetron, oxyCODONE OR oxyCODONE, phenol, sodium chloride, sodium chloride 0.9%, tiZANidine Allergies: Sulfa antibiotics and Milk [lac bovis] Social History: Social History Socioeconomic History Marital status: Spouse name: Not on file Number of children: Not on file Years of education: Not on file Highest education level: Not on file Occupational History Not on file Tobacco Use Smoking status: Never Smokeless tobacco: Never Vaping Use Vaping Use: Never used Substance and Sexual Activity Alcohol use: Never Drug use: Never Sexual activity: Not on file Other Topics Concern Not on file Social History Narrative Not on file Social Determinants of Health Financial Resource Strain: Not on file Food Insecurity: Not on file Transportation Needs: Not on file Physical Activity: Not on file Stress: Not on file Social Connections: Not on file Intimate Partner Violence: Not on file Housing Stability: Not on file Family History: Family History Problem Relation Name Age of Onset Cancer Mother No Known Problems Father REVIEW OF SYSTEMS: 10 point ROS obtained, as per HPI, otherwise NEG Physical Exam: Vitals: BP 125/77 (BP Location: Right arm, Patient Position: Lying) Pulse 70 Temp 36.1 C (96.9 F) (Temporal) Resp 20 Ht 5' (1.524 m) Wt 160 lb (72.6 kg) SpO2 95% BMI 31.25 kg/m BMI Classification: Obese (BMI 30.0-39.9) Pulse Ox: SpO2 Av.9 % Min: 94 % Max: 100 % Supplemental O2: O2 Flow Rate (L/min): 2 L/min Physical Exam Constitutional: General: She is awake. HENT: Head: Normocephalic. Comments: Currently in C-collar Eyes: General: Vision grossly intact. Gaze aligned appropriately. Pupils: Pupils are equal, round, and reactive to light. Cardiovascular: Rate and Rhythm: Normal rate and regular rhythm. Pulmonary: Effort: Pulmonary effort is normal. Breath sounds: Normal breath sounds. No wheezing, rhonchi or rales. Abdominal: General: Bowel sounds are normal. Palpations: Abdomen is soft. Tenderness: There is no abdominal tenderness. Musculoskeletal: Right lower leg: No edema. Left lower leg: No edema. Skin: General: Skin is warm and dry. Neurological: General: No focal deficit present. Mental Status: She is alert and oriented to person, place, and time. Cranial Nerves: Cranial nerves 2-12 are intact. Psychiatric: Behavior: Behavior is cooperative. LABS: No results found for this or any previous visit (from the past 24 hour(s)). Urine Culture: No results found for this or any previous visit. IMAGING: See report Assessment Data: (LOW: 2x CAT1 or independent historian MOD: 3x CAT1 or 1x CAT3 EXTENSIVE: 3x CAT1 and 1x CAT3) Acute, acute on chronic, unstable/uncontrolled chronic problems/diagnoses: S/P cervical ACDF - Neurosurgical specialty - PRN analgesia Stable chronic problems affecting care, new non-acute diagnoses: Bipolar I - Continue home Abilify, Wellbutrin, Prozac, Lamictal 2. Hypertension - Continue home amlodipine, lisinopril 3. Hx CKD - Renal function WNL, recheck in AM 4. Asthma - On scheduled Dulera - PRN albuterol MDI Plan As a result of the above findings & factors, the following mgmt was pursued: - am labs, replace lytes prn - PT/OT/CM/SW - delirium precautions: increase activity and limit nighttime disturbances - DVT prophylaxis: SCDs and encourage ambulation Complexity: Multiple stable chronic illnesses (MOD). Acute, uncomplicated illness or injury (LOW). Risk: Decision to admit to hospital-level care (HIGH). Use of parenteral controlled substances (HIGH). Prescription drug management (MOD). Low risk diagnostic testing or treatment (LOW). Advance Directive: Full Code Anticipated Discharge - Date - TBD - Location - TBD Total time spent (which include face to face and non face to face encounters) : 48 minutes Extended Emergency Contact Information Primary Emergency Contact: Claudia Barnes Relation: Other Secondary Emergency Contact: CameronNathanael Relation: Other Abraham [facility] [employer] Phone: 03-02-2023 Consult note Associated Order (s): IP CONSULT TO INTERNAL MEDICINE Images from the original note were not included. Hospital Medicine Consult Patient - Pily Barnes, Age - 72 y.o. - 1950 Room Number - [id number] Consulting - Alonso Mcgill MD Primary Care Physician - KENIA MCKENZIE MD [facility] # - [id number] Date of Admission - 03/02/2023 8:38 AM Hospital Day - 0 Reason for Consult: Medical Management HISTORY OF PRESENT ILLNESS: Pily is a 72 y.o. female POD# 0 C3-C4, C4-C5, C5-C6 ACDF. Per surgical documentation no complication or concern reported. USACS consulted for medical management. Hx significant for Bipolar I w/ anxiety/depression, HTN, CKD (unspecified), Asthma. On arrival to room Pt awake, alert and conversant. Reports post-surgical pain however currently managed w/ PRN analgesia. No other concern reported at time of evaluation - Pmhx notes prior sleep apnea. When I inquired about this, Pt states that while she knows she snores, does not believe that she has apneic events and has never been tested for CPAP use Past Medical History: Past Medical History: Diagnosis Date Anxiety Aspirin long-term use history Asthma Bipolar 1 disorder (HCC) Chronic kidney disease Depression Difficulty walking High blood pressure Lack of coordination Mitral valve insufficiency Muscle weakness Presence of intraocular lens Repeated falls Rhabdomyolysis Sleep apnea Traumatic subarachnoid hemorrhage without loss of consciousness (HCC) Past Surgical History: Past Surgical History: Procedure Laterality Date CERVICAL SPINE SURGERY 03/02/2023 C3-C6 ANTERIOR CERVICAL DECOMPRESSION, FUSION HYSTERECTOMY THYROID SURGERY N/A half Medications: acetaminophen, 650 mg, Oral, q6h amLODIPine, 2.5 mg, Oral, Daily ARIPiprazole, 5 mg, Oral, Daily buPROPion XL, 150 mg, Oral, Daily ceFAZolin, 2,000 mg, IntraVENous, q8h cetirizine, 10 mg, Oral, Daily docusate sodium, 100 mg, Oral, BID FLUoxetine, 60 mg, Oral, Daily lamoTRIgine, 50 mg, Oral, Daily lisinopril, 20 mg, Oral, Daily mometasone-formoterol, 2 puff, Inhalation, BID nystatin, , Topical, BID polyethylene glycol (PEG) 3350, 17 g, Oral, Daily sodium chloride 0.9%, 10 mL, IntraVENous, 2 times per day lactated Ringer's, 50 mL/hr, Last Rate: Stopped (03/02/23 1315) sodium chloride, 75 mL/hr, Last Rate: 75 mL/hr (03/02/23 1716) PRN medications: albuterol, bisacodyl, bisacodyl, morphine sulfate OR morphine sulfate, ondansetron ODT OR ondansetron, oxyCODONE OR oxyCODONE, phenol, sodium chloride, sodium chloride 0.9%, tiZANidine Allergies: Sulfa antibiotics and Milk [lac bovis] Social History: Social History Socioeconomic History Marital status: Spouse name: Not on file Number of children: Not on file Years of education: Not on file Highest education level: Not on file Occupational History Not on file Tobacco Use Smoking status: Never Smokeless tobacco: Never Vaping Use Vaping Use: Never used Substance and Sexual Activity Alcohol use: Never Drug use: Never Sexual activity: Not on file Other Topics Concern Not on file Social History Narrative Not on file Social Determinants of Health Financial Resource Strain: Not on file Food Insecurity: Not on file Transportation Needs: Not on file Physical Activity: Not on file Stress: Not on file Social Connections: Not on file Intimate Partner Violence: Not on file Housing Stability: Not on file Family History: Family History Problem Relation Name Age of Onset Cancer Mother No Known Problems Father REVIEW OF SYSTEMS: 10 point ROS obtained, as per HPI, otherwise NEG Physical Exam: Vitals: BP 125/77 (BP Location: Right arm, Patient Position: Lying) Pulse 70 Temp 36.1 C (96.9 F) (Temporal) Resp 20 Ht 5' (1.524 m) Wt 160 lb (72.6 kg) SpO2 95% BMI 31.25 kg/m BMI Classification: Obese (BMI 30.0-39.9) Pulse Ox: SpO2 Av.9 % Min: 94 % Max: 100 % Supplemental O2: O2 Flow Rate (L/min): 2 L/min Physical Exam Constitutional: General: She is awake. HENT: Head: Normocephalic. Comments: Currently in C-collar Eyes: General: Vision grossly intact. Gaze aligned appropriately. Pupils: Pupils are equal, round, and reactive to light. Cardiovascular: Rate and Rhythm: Normal rate and regular rhythm. Pulmonary: Effort: Pulmonary effort is normal. Breath sounds: Normal breath sounds. No wheezing, rhonchi or rales. Abdominal: General: Bowel sounds are normal. Palpations: Abdomen is soft. Tenderness: There is no abdominal tenderness. Musculoskeletal: Right lower leg: No edema. Left lower leg: No edema. Skin: General: Skin is warm and dry. Neurological: General: No focal deficit present. Mental Status: She is alert and oriented to person, place, and time. Cranial Nerves: Cranial nerves 2-12 are intact. Psychiatric: Behavior: Behavior is cooperative. LABS: No results found for this or any previous visit (from the past 24 hour(s)). Urine Culture: No results found for this or any previous visit. IMAGING: See report Assessment Data: (LOW: 2x CAT1 or independent historian MOD: 3x CAT1 or 1x CAT3 EXTENSIVE: 3x CAT1 and 1x CAT3) Acute, acute on chronic, unstable/uncontrolled chronic problems/diagnoses: S/P cervical ACDF - Neurosurgical specialty - PRN analgesia Stable chronic problems affecting care, new non-acute diagnoses: Bipolar I - Continue home Abilify, Wellbutrin, Prozac, Lamictal 2. Hypertension - Continue home amlodipine, lisinopril 3. Hx CKD - Renal function WNL, recheck in AM 4. Asthma - On scheduled Dulera - PRN albuterol MDI Plan As a result of the above findings & factors, the following mgmt was pursued: - am labs, replace lytes prn - PT/OT/CM/SW - delirium precautions: increase activity and limit nighttime disturbances - DVT prophylaxis: SCDs and encourage ambulation Complexity: Multiple stable chronic illnesses (MOD). Acute, uncomplicated illness or injury (LOW). Risk: Decision to admit to hospital-level care (HIGH). Use of parenteral controlled substances (HIGH). Prescription drug management (MOD). Low risk diagnostic testing or treatment (LOW). Advance Directive: Full Code Anticipated Discharge - Date - TBD - Location - TBD Total time spent (which include face to face and non face to face encounters) : 48 minutes Extended Emergency Contact Information Primary Emergency Contact: Claudia Barnes Relation: Other Secondary Emergency Contact: Nathanael Barnes Relation: Other Abraham Henry MD Division of Hospitalist Medicine Inpatient Medical Services/[facility] documented in this encounter [facility] 03-02-2023 Note Formatting of this n ote might be different from the original. Patient family/visitor updated by RN at this time. [facility] 03-02-2023 Note Formatting of this n ote might be different from the original. Patient family/visitor updated by RN at this time. [facility] 03-02-2023 Note Formatting of this n ote might be different from the original. OPERATIVE NOTE Patient Name: Pily Barnes : 1950 DATE OF PROCEDURE: 03/02/2023 SURGEON: Alonso Mcgill MD HOLTER SCANNING TECHNICIAN: Cee Biggs CNP PREOPERATIVE DIAGNOSES: Cervical stenosis, cervical myelopathy POSTOPERATIVE DIAGNOSES: Same PROCEDURE: C3-C4, C4-C5, C5-C6 anterior cervical decompression and fusion ANESTHESIA: General ESTIMATED BLOOD LOSS: 25 INDICATION FOR PROCEDURE: Mrs. Barnes is a 72-year-old female who presented with symptoms of cervical myelopathy. MRI showed degenerative changes C3-C4, C4-C5, C5-C6 disc osteophyte complexes causing cord compression and signal change. Risks and benefits of ACDF were discussed with her, including spinal cord injury and swallowing difficulties. She wished to proceed. DESCRIPTION OF PROCEDURE: Patient was brought to the operating room general endotracheal seizure was induced. She had spinal cord monitoring leads placed. She was lying supine on operative table her head rested on a donut. Her arms were tucked and padded her side appropriately shoulders were gently taped down to allow better visualization of cervical spine via C arm. C-arm was brought in field approximate the C3-C4 level, this is marked surgical marker and she was prepped and draped in normal sterile fashion. After appropriate timeout identifying the patient, the level of surgery type surgery, 0.5% Marcaine with epinephrine was instilled future incision. Skin incision was made to level platysma, supraplatysmal dissection was carried out. The platysma was opened vertically near the midline the anterior border of the sternocleidomastoid was identified the carotid artery was identified a Lateral exposure. When the anterior cervical spine was reached a spinal needle was placed in the disc space and the C-arm shot taken to identify it, it was the C3-C4 level, this was marked with the Bovie longus coli muscles were cleaned off the inferior portion of C3 all of C4 all of C5 superior portion of C6. Retractors put in place. Roann pins placed in C3-C4-C5 and C6 gentle stretch placed on him then the discectomies were carried under the microscope with pituitary drill 1 and 2 Minotti Kerrisons and the up-biting curette. The PLL was reached and resected across the span of the disc space. There were disc osteophyte complexes at each level causing cord compression as well as foraminal stenosis. The PLL was reached and resected across the disc space at each level and then the endplates were prepared with rasp and ring curette. 7 mm titanium cage stuffed with DBX was placed at C3-C4, C4-C5, C5-C6. Following this an anterior cervical plate by [employer]tr[employer] was placed with 15 mm screws. C-arm shot was taken to confirm screws were in bone. After this the wound was doe irrigated out retractors removed the wound allowed to sit for several minutes to confirm there is good hemostasis. Then a 10 Niuean round POLO drain was placed, and the platysma closed with interrupted 3-0 Vicryl sutures followed by subcuticular up to 3-0 Vicryl sutures with Mastisol and Steri-Strips on the skin. Sterile dressings placed. She was extubated taken recovery in stable fashion. All her spinal cord signals were the same or improved at the end of the case compared to beginning. There is no neurosurgical resident available to assist the case, the nurse practitioner assisted to provide suction retraction assistance with opening and closed allow the case to be performed safely. [facility] 03-02-2023 Note Formatting of this n ote is different from the original. Date: 03/02/2023 Location: [facility] OR Name: Pily Barnes, : 1950, Diagnosis Pre-op Diagnosis * Disease of spinal cord, unspecified (HCC) [G95.9] Post-op Diagnosis * Disease of spinal cord, unspecified (HCC) [G95.9] Procedures C3-C6 ANTERIOR CERVICAL DECOMPRESSION, FUSION 92410 - KS ARTHRD ANT INTERBODY DECOMPRESS CERVICAL BELW C2 KS ARTHRD ANT INTERDY CERVCL BELW C2 EA ADDL NTRSPC [81850] KS ANTERIOR INSTRUMENTATION 4-7 VERTEBRAL SEGMENTS [15110] Surgeons * Alonso Mcgill - Primary Procedure Summary Anesthesia: General ASA: III Estimated Blood Loss: 25 Drains: Closed/Suction Drain Neck Bulb (Active) Implants - [employer] Type Name Action Serial No. Bone BONE BMP PUTTY I-FACTOR 2.5CC - [id number] Implanted Bone GRAFT DBM PUTTY BIO 2.5CC VIAL - [id number] Implanted Spinal Hardware CAGE SPINAL [place] 6DEG 7MM - [id number] Implanted Spinal Hardware CAGE SPINAL [place] 6DEG 7MM - [id number] Implanted Spinal Hardware CAGE SPINAL [place] 6DEG 7MM - [id number] Implanted Plate 48MM PLATE Implanted Spinal Hardware SCREW BN VAS SD 3.5X15 - [id number] Implanted Staff: Switching Operator: Cee Cisneros RN Nurse Practitioner: Cee Biggs APRN - [facility] Relief Switching Operator: Randi Zavala RN Relief Scrub: Helga Matos Scrub Person: Kenia Diaz RN Findings: See op note Complications: None; patient tolerated the procedure well. Specimens Collected: Order Name Source Comment Collection Info Order Time POTASSIUM WITH MG REFLEX For patients on dialysis to draw potassium day of surgery 03/02/2023 9:02 AM PROTHROMBIN TIME If patient on coumadin within 4 days prior. 03/02/2023 9:02 AM Wound Class: Class I: Clean Blood Products: None Prophylactic Antibiotics: Procedure appropriate prophylactic antibiotic(s) given within 1 hour of surgical incision (two hours if receiving Vancomycin or flouroquinolone) [facility] 03-02-2023 Note Formatting of this n ote might be different from the original. OPERATIVE NOTE Patient Name: Pily Barnes : 1950 DATE OF PROCEDURE: 03/02/2023 SURGEON: Alonso Mcgill MD HOLTER SCANNING TECHNICIAN: Cee Biggs CNP PREOPERATIVE DIAGNOSES: Cervical stenosis, cervical myelopathy POSTOPERATIVE DIAGNOSES: Same PROCEDURE: C3-C4, C4-C5, C5-C6 anterior cervical decompression and fusion ANESTHESIA: General ESTIMATED BLOOD LOSS: 25 INDICATION FOR PROCEDURE: Mrs. Barnes is a 72-year-old female who presented with symptoms of cervical myelopathy. MRI showed degenerative changes C3-C4, C4-C5, C5-C6 disc osteophyte complexes causing cord compression and signal change. Risks and benefits of ACDF were discussed with her, including spinal cord injury and swallowing difficulties. She wished to proceed. DESCRIPTION OF PROCEDURE: Patient was brought to the operating room general endotracheal seizure was induced. She had spinal cord monitoring leads placed. She was lying supine on operative table her head rested on a donut. Her arms were tucked and padded her side appropriately shoulders were gently taped down to allow better visualization of cervical spine via C arm. C-arm was brought in field approximate the C3-C4 level, this is marked surgical marker and she was prepped and draped in normal sterile fashion. After appropriate timeout identifying the patient, the level of surgery type surgery, 0.5% Marcaine with epinephrine was instilled future incision. Skin incision was made to level platysma, supraplatysmal dissection was carried out. The platysma was opened vertically near the midline the anterior border of the sternocleidomastoid was identified the carotid artery was identified a Lateral exposure. When the anterior cervical spine was reached a spinal needle was placed in the disc space and the C-arm shot taken to identify it, it was the C3-C4 level, this was marked with the Benjamin longus coli muscles were cleaned off the inferior portion of C3 all of C4 all of C5 superior portion of C6. Retractors put in place. Roann pins placed in C3-C4-C5 and C6 gentle stretch placed on him then the discectomies were carried under the microscope with pituitary drill 1 and 2 Minotti Kerrisons and the up-biting curette. The PLL was reached and resected across the span of the disc space. There were disc osteophyte complexes at each level causing cord compression as well as foraminal stenosis. The PLL was reached and resected across the disc space at each level and then the endplates were prepared with rasp and ring curette. 7 mm titanium cage stuffed with DBX was placed at C3-C4, C4-C5, C5-C6. Following this an anterior cervical plate by [employer] was placed with 15 mm screws. C-arm shot was taken to confirm screws were in bone. After this the wound was doe irrigated out retractors removed the wound allowed to sit for several minutes to confirm there is good hemostasis. Then a 10 Niuean round POLO drain was placed, and the platysma closed with interrupted 3-0 Vicryl sutures followed by subcuticular up to 3-0 Vicryl sutures with Mastisol and Steri-Strips on the skin. Sterile dressings placed. She was extubated taken recovery in stable fashion. All her spinal cord signals were the same or improved at the end of the case compared to beginning. There is no neurosurgical resident available to assist the case, the nurse practitioner assisted to provide suction retraction assistance with opening and closed allow the case to be performed safely. [facility] 03-02-2023 Note Formatting of this n ote is different from the original. Date: 03/02/2023 Location: [facility] OR Name: Pily Barnes, : 1950, Diagnosis Pre-op Diagnosis * Disease of spinal cord, unspecified (HCC) [G95.9] Post-op Diagnosis * Disease of spinal cord, unspecified (HCC) [G95.9] Procedures C3-C6 ANTERIOR CERVICAL DECOMPRESSION, FUSION 84276 - KS ARTHRD ANT INTERBODY DECOMPRESS CERVICAL BELW C2 KS ARTHRD ANT INTERDY CERVCL BELW C2 EA ADDL NTRSPC [[id number]] KS ANTERIOR INSTRUMENTATION 4-7 VERTEBRAL SEGMENTS [21484] Surgeons * Alonso Mcgill - Primary Procedure Summary Anesthesia: General ASA: III Estimated Blood Loss: 25 Drains: Closed/Suction Drain Neck Bulb (Active) Implants - [employer]onic Type Name Action Serial No. Bone BONE BMP PUTTY I-FACTOR 2.5CC - [id number] Implanted Bone GRAFT DBM PUTTY BIO 2.5CC VIAL - [id number] Implanted Spinal Hardware CAGE SPINAL [place] 6DEG 7MM - [id number] Implanted Spinal Hardware CAGE SPINAL [place] 6DEG 7MM - [id number] Implanted Spinal Hardware CAGE SPINAL [place] 6DEG 7MM - [id number] Implanted Plate 48MM PLATE Implanted Spinal Hardware SCREW BN VAS SD 3.5X15 - [id number] Implanted Staff: Switching Operator: Cee Cisneros RN Nurse Practitioner: Cee Biggs APRN - [employer] Relief Switching Operator: Randi Zavala RN Relief Scrub: Helga Matos Scrub Person: Kenia Diaz RN Findings: See op note Complications: None; patient tolerated the procedure well. Specimens Collected: Order Name Source Comment Collection Info Order Time POTASSIUM WITH MG REFLEX For patients on dialysis to draw potassium day of surgery 03/02/2023 9:02 AM PROTHROMBIN TIME If patient on coumadin within 4 days prior. 03/02/2023 9:02 AM Wound Class: Class I: Clean Blood Products: None Prophylactic Antibiotics: Procedure appropriate prophylactic antibiotic(s) given within 1 hour of surgical incision (two hours if receiving Vancomycin or flouroquinolone) [facility] 03-02-2023 History and physical note History Of Present Illness Pily Barnes is a 72 y.o. female presenting with neck pain and UE pain and numbness. Past Medical History She has a past medical history of Anxiety, Aspirin long-term use, Asthma, Bipolar 1 disorder (HCC), Chronic kidney disease, Depression, Difficulty walking, High blood pressure, Lack of coordination, Mitral valve insufficiency, Muscle weakness, Presence of intraocular lens, Repeated falls, Rhabdomyolysis, Sleep apnea, and Traumatic subarachnoid hemorrhage without loss of consciousness (HCC). Surgical History She has a past surgical history that includes Thyroid surgery (N/A) and Hysterectomy. Social History She reports that she has never smoked. She has never used smokeless tobacco. She reports that she does not drink alcohol and does not use drugs. Allergies Sulfa antibiotics and Milk [lac bovis] Medications No medications prior to admission. Review of Systems + neck pain Physical Exam 3/5 distal B UE Last Recorded Vitals There were no vitals taken for this visit. Relevant Results MRI C spine shows degenerative changes at multiple levels, C3-C4, C4-C5, C5-C6 are her worst levels. At these levels there are large disc bulges that compress the cord causing severe cord compression and spinal stenosis. There is signal change within the cord at each level. Assessment/Plan Active Problems: There are no active Hospital Problems. Cervical myelopathy C3/C4, C4/C5, C5/C6 ACDF Risks/Benefits of the surgery have been discussed with the patient including but not limited to bleeding and hematoma formation, infection, speech difficulty, voice changes, CSF leak, spinal cord injury, nerve root injury, permanent weakness and . Pt and family understand and agree to the procedure. [facility] Phone: 03-02-2023 History and physical note History Of Present Illness Pily Barnes is a 72 y.o. female presenting with neck pain and UE pain and numbness. Past Medical History She has a past medical history of Anxiety, Aspirin long-term use, Asthma, Bipolar 1 disorder (HCC), Chronic kidney disease, Depression, Difficulty walking, High blood pressure, Lack of coordination, Mitral valve insufficiency, Muscle weakness, Presence of intraocular lens, Repeated falls, Rhabdomyolysis, Sleep apnea, and Traumatic subarachnoid hemorrhage without loss of consciousness (HCC). Surgical History She has a past surgical history that includes Thyroid surgery (N/A) and Hysterectomy. Social History She reports that she has never smoked. She has never used smokeless tobacco. She reports that she does not drink alcohol and does not use drugs. Allergies Sulfa antibiotics and Milk [lac bovis] Medications No medications prior to admission. Review of Systems + neck pain Physical Exam 3/5 distal B UE Last Recorded Vitals There were no vitals taken for this visit. Relevant Results MRI C spine shows degenerative changes at multiple levels, C3-C4, C4-C5, C5-C6 are her worst levels. At these levels there are large disc bulges that compress the cord causing severe cord compression and spinal stenosis. There is signal change within the cord at each level. Assessment/Plan Active Problems: There are no active Hospital Problems. Cervical myelopathy C3/C4, C4/C5, C5/C6 ACDF Risks/Benefits of the surgery have been discussed with the patient including but not limited to bleeding and hematoma formation, infection, speech difficulty, voice changes, CSF leak, spinal cord injury, nerve root injury, permanent weakness and . Pt and family understand and agree to the procedure. Images from the original note were not included. Comprehensive PreSurgical History and Physical ? Name: Pily Barnes : 1950 (Age-72 y.o.) Date of Service: Pt seen/examined on 02/27/2023 Procedure Information Date/Time: 03/02/23 1030 Procedure: C3-C6 ANTERIOR CERVICAL DECOMPRESSION, FUSION Location: [address] Operating Room Surgeons: Alonso Mcgill MD Chief Complaint: Disease of spinal cord, unspecified History Of Present Illness: Case: [id number] Date/Time: 03/02/23 1030 Procedure: C3-C6 ANTERIOR CERVICAL DECOMPRESSION, FUSION [43197 CPT(R)] Anesthesia type: General Diagnosis: Disease of spinal cord, unspecified (HCC) [G95.9] Pre-op diagnosis: Disease of spinal cord, unspecified (HCC) [G95.9] Location: [address] Operating Room Surgeons: Alonso Mcgill MD From Dr. Mcgill's 12-07-22 office note: 72 y.o. presents with symptoms of myelopathy x 2 years. She reports significant numbness and tingling in bilateral hands. She is utilizing a rollator due to gait instability and weakness and has suffered frequent falls." ? Denies history of [place], CAD, CHF, TIA, CVA Past Medical History: Past Medical History: No date: Anxiety No date: Aspirin long-term use Comment: history No date: Asthma No date: Bipolar 1 disorder (HCC) No date: Chronic kidney disease No date: Depression No date: Difficulty walking No date: High blood pressure No date: Lack of coordination No date: Mitral valve insufficiency No date: Muscle weakness No date: Presence of intraocular lens No date: Repeated falls No date: Rhabdomyolysis No date: Sleep apnea No date: Traumatic subarachnoid hemorrhage without loss of consciousness (HCC) Past Surgical History: Past Surgical History: No date: HYSTERECTOMY No date: THYROID SURGERY; N/A Comment: half Medications Prior to Admission: Current Outpatient Medications on File Prior to Visit Medication Sig Dispense Refill amLODIPine (Norvasc) 2.5 MG tablet Take 2.5 mg by mouth daily. ARIPiprazole (Abilify) 5 MG tablet Take 5 mg by mouth daily. Breo Ellipta 100-25 MCG/ACT aerosol powder Inhale 1 puff daily. buPROPion XL (Wellbutrin XL) 300 MG 24 hr tablet Calcium + Vitamin D3 600-10 MG-MCG tablet Take 1 tablet by mouth daily. 600/400 cholecalciferol (Vitamin D-3) 125 MCG (5000 UT) tablet Take 2,000 Units by mouth daily. FLUoxetine (PROzac) 20 MG capsule Take 60 mg by mouth daily. Invega Sustenna 39 MG/0.25ML suspension prefilled syringe lamoTRIgine (LaMICtal) 25 MG tablet Take 50 mg by mouth daily. lisinopril 20 MG tablet Take 20 mg by mouth daily. Loratadine 10 MG capsule Take 10 mg by mouth daily. Multiple Vitamin (High Potency Multivitamin) tablet Take 1 tablet by mouth daily. nystatin (Mycostatin) 446099 UNIT/GM powder Apply 1 Application topically 2 times daily. Under breasts albuterol 108 (90 Base) MCG/ACT inhaler INHALE TWO PUFFS BY MOUTH INTO THE LUNGS instructed EVERY 4 HOURS NEEDED FOR WHEEZING OR FOR SHORTNESS OF BREATH clonazePAM (KlonoPIN) 0.5 MG tablet Take 0.5 mg by mouth Daily as needed for anxiety. fluticasone (Flonase) 50 MCG/ACT nasal spray Administer 2 sprays into each nostril Daily as needed for allergies. ondansetron (Zofran) 4 MG tablet Take 4 mg by mouth every 6 hours as needed for nausea or vomiting. [DISCONTINUED] loratadine-pseudoephedrine ER (Claritin-D 24-hour) 10-240 MG 24 hr tablet Take 1 tablet by mouth daily. Do not crush, chew, or split. No current facility-administered medications on file prior to visit. CHRONIC NARCOTIC USE: No Allergies: Sulfa antibiotics and Milk [lac bovis] Can the patient take acetaminophen: Yes Social History: TOBACCO: reports that she has never smoked. She has never used smokeless tobacco. ETOH: reports no history of alcohol use. Social History Substance and Sexual Activity Drug Use Never Family History: Family History Problem Relation Name Age of Onset Cancer Mother No Known Problems Father REVIEW OF SYSTEMS: Review of Systems Constitutional: Negative for chills and fever. HENT: Negative for congestion and trouble swallowing. Eyes: Negative for visual disturbance. Respiratory: Negative for cough and shortness of breath. Cardiovascular: Negative for chest pain, palpitations and leg swelling. Gastrointestinal: Negative for abdominal pain, blood in stool, diarrhea, nausea and vomiting. Genitourinary: Negative for difficulty urinating, dysuria and hematuria. Musculoskeletal: Positive for back pain. Skin: Negative for rash and wound. Neurological: Negative for dizziness, syncope, light-headedness and headaches. Psychiatric/Behavioral: Negative for agitation and confusion. Physical Exam: Physical Exam Vitals reviewed. Constitutional: General: She is not in acute distress. Appearance: Normal appearance. HENT: Head: Normocephalic and atraumatic. Right Ear: External ear normal. Left Ear: External ear normal. Nose: Nose normal. Mouth/Throat: Lips: [place]. Mouth: Mucous membranes are moist. Pharynx: Oropharynx is clear. Eyes: Extraocular Movements: Extraocular movements intact. Cardiovascular: Rate and Rhythm: Normal rate and regular rhythm. Heart sounds: Normal heart sounds. Pulmonary: Effort: Pulmonary effort is normal. No respiratory distress. Breath sounds: Normal breath sounds. No stridor. Abdominal: General: Bowel sounds are normal. Palpations: Abdomen is soft. Tenderness: There is no abdominal tenderness. Musculoskeletal: General: Normal range of motion. Cervical back: Normal range of motion and neck supple. Comments: Moves all extremities. Skin: General: Skin is warm and dry. Capillary Refill: Capillary refill takes less than 2 seconds. Findings: No rash. Neurological: General: No focal deficit present. Mental Status: She is alert and oriented to person, place, and time. Sensory: Sensation is intact. Motor: Motor function is intact. Coordination: Coordination is intact. Psychiatric: Mood and Affect: Mood and affect normal. Behavior: Behavior normal. Vitals: Vitals Value Taken Time BP 132/90 02/27/23 1543 Temp 36.9 C (98.5 F) 02/27/23 1543 Pulse 73 02/27/23 1543 Resp 16 02/27/23 1543 SpO2 94 % 02/27/23 1543 Labs: Rafi's Simple Cardiac Risk Index: RAFI'S SIMPLE CARDIAC RISK SCORE: 0 Interpretation: 0 Points Class I 0.5% 1 Point Class II 1.3% 2 Points Class III 3.6% 3+ Points Class IV 9.1% METS: >4 METS (Able to climb a flight of stairs with no chest pain or shortness of breath): Yes (uses a walker to get around. Denies sob or cp during ADL's) PAT Pain Score: 4/10 Postop Pain Management Plan (Pain consult ordered?): PACU PAIN CONSULT ORDERED EKG: ordered and reviewed per PAT protocol EK11/2021 reviewed ECHO and EF:Echo 03/2020 EF 70% ASSESSMENT/PLAN: Patient is considered low/intermediate risk for this intermediate risk procedure/surgery () with no reducible risk factors. Based on the above evaluation, the benefits of the planned procedure likely exceed the risks. 1) Disease of spinal cord, unspecified - Managed per surgery - labs ordered per PAT protocol: EKG, CBC, BMP, UA, T&S, - pain consult and shower kit ordered 2) HTN- fluctuating but stable -complaint with antihypertensives - Yes, -encouraged lifestyle modifications -reports monitoring BP at home - Yes, BP Readings from Last 3 Encounters: 02/27/23 (!) 132/90 12/07/22 133/89 11/11/22 (!) 143/90 3) Asthma (SEASONAL) - Managed on inhalers follows up with PCP as OP - Denies ever needing intubated for their asthma - Per patient, feels at baseline - Lungs CTA. No obvious distress on exam. - Continue inhalers day of surgery. 4) Bipolar with anxiety - feels controlled on medication - Yes, - Patient may benefit from antianxiety medication DOS 5) Mild Aortic valve stenosis - non-rheumatic - follows up with PCP as OP Visit Type: Pre-Admission Testing Visit Labs Ordered: YES - PER PAT PROTOCOL Sleep Referral Ordered: NO - NEGATIVE SCREEN PER SLEEP REFERRAL PROTOCOL Electronically signed by: Christal Carcamo APRN - [employer] Date: 02/27/2023 at 4:25 PM PAT Protocol referenced includes: 1. Anesthesia Lab Protocol Orders 2. Perioperative Cardiovascular Risk Assessment 3. Anesthesia Assessment 4. Pain Assessment and Acute Pain Service Consult (if appropriate) 5. Medical Clearance/Consult from Internal Medicine (IMS) 6. Shower/Wash Order (for designated surgeries) 7. TATI Screen and Sleep Clinic Referral (if appropriate) documented in this encounter [facility] 02-27-2023 History and physical note Images from the original note were not included. Comprehensive PreSurgical History and Physical ? Name: Pily Barnes : 1950 (Age-72 y.o.) Date of Service: Pt seen/examined on 02/27/2023 Procedure Information Date/Time: 03/02/23 1030 Procedure: C3-C6 ANTERIOR CERVICAL DECOMPRESSION, FUSION Location: [address] Operating Room Surgeons: Alonso Mcgill MD Chief Complaint: Disease of spinal cord, unspecified History Of Present Illness: Case: [id number] Date/Time: 03/02/23 1030 Procedure: C3-C6 ANTERIOR CERVICAL DECOMPRESSION, FUSION [22970 CPT(R)] Anesthesia type: General Diagnosis: Disease of spinal cord, unspecified (HCC) [G95.9] Pre-op diagnosis: Disease of spinal cord, unspecified (HCC) [G95.9] Location: [address] Operating Room Surgeons: Alonso Mcgill MD From Dr. Mcgill's 12-07-22 office note: 72 y.o. presents with symptoms of myelopathy x 2 years. She reports significant numbness and tingling in bilateral hands. She is utilizing a rollator due to gait instability and weakness and has suffered frequent falls." ? Denies history of [place], CAD, CHF, TIA, CVA Past Medical History: Past Medical History: No date: Anxiety No date: Aspirin long-term use Comment: history No date: Asthma No date: Bipolar 1 disorder (HCC) No date: Chronic kidney disease No date: Depression No date: Difficulty walking No date: High blood pressure No date: Lack of coordination No date: Mitral valve insufficiency No date: Muscle weakness No date: Presence of intraocular lens No date: Repeated falls No date: Rhabdomyolysis No date: Sleep apnea No date: Traumatic subarachnoid hemorrhage without loss of consciousness (HCC) Past Surgical History: Past Surgical History: No date: HYSTERECTOMY No date: THYROID SURGERY; N/A Comment: half Medications Prior to Admission: Current Outpatient Medications on File Prior to Visit Medication Sig Dispense Refill amLODIPine (Norvasc) 2.5 MG tablet Take 2.5 mg by mouth daily. ARIPiprazole (Abilify) 5 MG tablet Take 5 mg by mouth daily. Breo Ellipta 100-25 MCG/ACT aerosol powder Inhale 1 puff daily. buPROPion XL (Wellbutrin XL) 300 MG 24 hr tablet Calcium + Vitamin D3 600-10 MG-MCG tablet Take 1 tablet by mouth daily. 600/400 cholecalciferol (Vitamin D-3) 125 MCG (5000 UT) tablet Take 2,000 Units by mouth daily. FLUoxetine (PROzac) 20 MG capsule Take 60 mg by mouth daily. Invega Sustenna 39 MG/0.25ML suspension prefilled syringe lamoTRIgine (LaMICtal) 25 MG tablet Take 50 mg by mouth daily. lisinopril 20 MG tablet Take 20 mg by mouth daily. Loratadine 10 MG capsule Take 10 mg by mouth daily. Multiple Vitamin (High Potency Multivitamin) tablet Take 1 tablet by mouth daily. nystatin (Mycostatin) 412386 UNIT/GM powder Apply 1 Application topically 2 times daily. Under breasts albuterol 108 (90 Base) MCG/ACT inhaler INHALE TWO PUFFS BY MOUTH INTO THE LUNGS instructed EVERY 4 HOURS NEEDED FOR WHEEZING OR FOR SHORTNESS OF BREATH clonazePAM (KlonoPIN) 0.5 MG tablet Take 0.5 mg by mouth Daily as needed for anxiety. fluticasone (Flonase) 50 MCG/ACT nasal spray Administer 2 sprays into each nostril Daily as needed for allergies. ondansetron (Zofran) 4 MG tablet Take 4 mg by mouth every 6 hours as needed for nausea or vomiting. [DISCONTINUED] loratadine-pseudoephedrine ER (Claritin-D 24-hour) 10-240 MG 24 hr tablet Take 1 tablet by mouth daily. Do not crush, chew, or split. No current facility-administered medications on file prior to visit. CHRONIC NARCOTIC USE: No Allergies: Sulfa antibiotics and Milk [lac bovis] Can the patient take acetaminophen: Yes Social History: TOBACCO: reports that she has never smoked. She has never used smokeless tobacco. ETOH: reports no history of alcohol use. Social History Substance and Sexual Activity Drug Use Never Family History: Family History Problem Relation Name Age of Onset Cancer Mother No Known Problems Father REVIEW OF SYSTEMS: Review of Systems Constitutional: Negative for chills and fever. HENT: Negative for congestion and trouble swallowing. Eyes: Negative for visual disturbance. Respiratory: Negative for cough and shortness of breath. Cardiovascular: Negative for chest pain, palpitations and leg swelling. Gastrointestinal: Negative for abdominal pain, blood in stool, diarrhea, nausea and vomiting. Genitourinary: Negative for difficulty urinating, dysuria and hematuria. Musculoskeletal: Positive for back pain. Skin: Negative for rash and wound. Neurological: Negative for dizziness, syncope, light-headedness and headaches. Psychiatric/Behavioral: Negative for agitation and confusion. Physical Exam: Physical Exam Vitals reviewed. Constitutional: General: She is not in acute distress. Appearance: Normal appearance. HENT: Head: Normocephalic and atraumatic. Right Ear: External ear normal. Left Ear: External ear normal. Nose: Nose normal. Mouth/Throat: Lips: [place]. Mouth: Mucous membranes are moist. Pharynx: Oropharynx is clear. Eyes: Extraocular Movements: Extraocular movements intact. Cardiovascular: Rate and Rhythm: Normal rate and regular rhythm. Heart sounds: Normal heart sounds. Pulmonary: Effort: Pulmonary effort is normal. No respiratory distress. Breath sounds: Normal breath sounds. No stridor. Abdominal: General: Bowel sounds are normal. Palpations: Abdomen is soft. Tenderness: There is no abdominal tenderness. Musculoskeletal: General: Normal range of motion. Cervical back: Normal range of motion and neck supple. Comments: Moves all extremities. Skin: General: Skin is warm and dry. Capillary Refill: Capillary refill takes less than 2 seconds. Findings: No rash. Neurological: General: No focal deficit present. Mental Status: She is alert and oriented to person, place, and time. Sensory: Sensation is intact. Motor: Motor function is intact. Coordination: Coordination is intact. Psychiatric: Mood and Affect: Mood and affect normal. Behavior: Behavior normal. Vitals: Vitals Value Taken Time BP 132/90 02/27/23 1543 Temp 36.9 C (98.5 F) 02/27/23 1543 Pulse 73 02/27/23 1543 Resp 16 02/27/23 1543 SpO2 94 % 02/27/23 1543 Labs: Rafi's Simple Cardiac Risk Index: RAFI'S SIMPLE CARDIAC RISK SCORE: 0 Interpretation: 0 Points Class I 0.5% 1 Point Class II 1.3% 2 Points Class III 3.6% 3+ Points Class IV 9.1% METS: >4 METS (Able to climb a flight of stairs with no chest pain or shortness of breath): Yes (uses a walker to get around. Denies sob or cp during ADL's) PAT Pain Score: 4/10 Postop Pain Management Plan (Pain consult ordered?): PACU PAIN CONSULT ORDERED EKG: ordered and reviewed per PAT protocol EK11/2021 reviewed ECHO and EF:Echo 03/2020 EF 70% ASSESSMENT/PLAN: Patient is considered low/intermediate risk for this intermediate risk procedure/surgery () with no reducible risk factors. Based on the above evaluation, the benefits of the planned procedure likely exceed the risks. 1) Disease of spinal cord, unspecified - Managed per surgery - labs ordered per PAT protocol: EKG, CBC, BMP, UA, T&S, - pain consult and shower kit ordered 2) HTN- fluctuating but stable -complaint with antihypertensives - Yes, -encouraged lifestyle modifications -reports monitoring BP at home - Yes, BP Readings from Last 3 Encounters: 02/27/23 (!) 132/90 12/07/22 133/89 11/11/22 (!) 143/90 3) Asthma (SEASONAL) - Managed on inhalers follows up with PCP as OP - Denies ever needing intubated for their asthma - Per patient, feels at baseline - Lungs CTA. No obvious distress on exam. - Continue inhalers day of surgery. 4) Bipolar with anxiety - feels controlled on medication - Yes, - Patient may benefit from antianxiety medication DOS 5) Mild Aortic valve stenosis - non-rheumatic - follows up with PCP as OP Visit Type: Pre-Admission Testing Visit Labs Ordered: YES - PER PAT PROTOCOL Sleep Referral Ordered: NO - NEGATIVE SCREEN PER SLEEP REFERRAL PROTOCOL Electronically signed by: TIFFANIE Jacobo CNP Date: 02/27/2023 at 4:25 PM PAT Protocol referenced includes: 1. Anesthesia Lab Protocol Orders 2. Perioperative Cardiovascular Risk Assessment 3. Anesthesia Assessment 4. Pain Assessment and Acute Pain Service Consult (if appropriate) 5. Medical Clearance/Consult from Internal Medicine (IMS) 6. Shower/Wash Order (for designated surgeries) 7. TATI Screen and Sleep Clinic Referral (if appropriate) [facility] 02-03-2023 Telephone encounter Note Returned call Spoke with Stated he was unable to talk now And would call back later [facility] 02-03-2023 Miscellaneous Notes Returned call Spoke with Stated he was unable to talk now And would call back later Pt LM on VM asking for a call back. Call back: [phone] documented in this encounter [facility] 02-02-2023 Telephone encounter Note Pt LM on VM asking for a call back. Call back: [phone] [facility] 01-16-2023 Telephone encounter Note AUTH INITIATED Reference number is [id number]. [facility] 01-16-2023 Miscellaneous Notes AUTH INITIATED Reference number is [id number]. Procedure: C3/C4, C4/C5, C5/C6 ACDF Anesthesia: GET Time: 2.5 Positioning/Frame: [employer]/Implants: [employer] O-Arm: N C-Arm: Y Stealth Navigation: N Bright: N Microscope: Y Brace: Pre-Op Imaging: [facility]: Y Inpatient/Outpatient: In Medications to DC: Other:[id number], [id number] x 2, [id number] results with her son Claudia. He states taht his mother would like to go forward with surgery. Based on Ct scan will be anterior approach; C3-C[address] orders for surgery. documented in this encounter [facility] 01-16-2023 Telephone encounter Note Procedure: C3/C4, C4/C5, C5/C6 ACDF Anesthesia: GET Time: 2.5 Positioning/Frame: [employer]/Implants: [employer] O-Arm: N C-Arm: Y Stealth Navigation: N Bright: N Microscope: Y Brace: Pre-Op Imaging: [facility]: Y Inpatient/Outpatient: In Medications to DC: Other:[id number], [id number] x 2, [id number] [facility] Phone: 01-16-2023 Telephone encounter Note Called and discussed CT results with her son Claudia. He states taht his mother would like to go forward with surgery. Based on Ct scan will be anterior approach; C3-C[address] orders for surgery. [facility] Phone: 12-07-2022 History of Present illness Narrative NEUROSURGERY CONSULT NOTE Patient Name: Pily Barnes Patient : 1950 PCP: KENIA MCKENZIE MD History of Present Ilness: 72 y.o. presents with symptoms of myelopathy x 2 years. She reports significant numbness and tingling in bilateral hands. She is utilizing a rollator due to gait instability and weakness and has suffered frequent falls. Chief Complaint Patient presents with New Patient CERVICAL SPINE Conservative Treatments: Physical Therapy: she is currently in therapy NSAID's: NA Narcotics: NA Muscle relaxants: NA Epidural injections: NA Chiropractor: NA Past Medical History: Past Medical History: Diagnosis Date High blood pressure Past Surgical History: Past Surgical History: Procedure Laterality Date HYSTERECTOMY THYROID SURGERY N/A half Home Medications: Prior to Admission medications Medication Sig Start Date End Date Taking? Authorizing Provider albuterol 108 (90 Base) MCG/ACT inhaler INHALE TWO PUFFS BY MOUTH INTO THE LUNGS instructed EVERY 4 HOURS NEEDED FOR WHEEZING OR FOR SHORTNESS OF BREATH 02/22/22 Yes Historical Provider, amLODIPine (Norvasc) 2.5 MG tablet 09/27/22 Yes Historical Provider, ARIPiprazole (Abilify) 5 MG tablet 11/03/22 Yes Historical Provider, MD Bosch Ellipta 100-25 MCG/ACT aerosol powder 11/05/22 Yes Historical Provider, buPROPion XL (Wellbutrin XL) 300 MG 24 hr tablet 11/03/22 Yes Historical Provider, Calcium + Vitamin D3 600-10 MG-MCG tablet 10/20/22 Yes Historical Provider, cholecalciferol (Vitamin D-3) 125 MCG (5000 UT) tablet Take 5,000 Units by mouth daily. Yes Historical Provider, clonazePAM (KlonoPIN) 0.5 MG tablet 04/11/22 Yes Historical Provider, FLUoxetine (PROzac) 20 MG capsule 09/23/22 Yes Historical Provider, fluticasone (Flonase) 50 MCG/ACT nasal spray instill TWO SPRAYS IN EACH nostril ONCE daily NEEDED 02/22/22 Yes Historical Provider, Invega Sustenna 39 MG/0.25ML suspension prefilled syringe 09/23/22 Yes Historical Provider, lamoTRIgine (LaMICtal) 25 MG tablet 11/07/22 Yes Historical Provider, lisinopril 20 MG tablet 11/08/22 Yes Historical Provider, Loratadine 10 MG capsule Take by mouth. Yes Historical Provider, Multiple Vitamin (High Potency Multivitamin) tablet 09/27/22 Yes Historical Provider, ondansetron (Zofran) 4 MG tablet Take by mouth. Yes Historical Provider, loratadine-pseudoephedrine ER (Claritin-D 24-hour) 10-240 MG 24 hr tablet Take 1 tablet by mouth daily. Do not crush, chew, or split. Historical Provider, Allergies: Sulfa antibiotics Social History: TOBACCO: reports that she has never smoked. She has never used smokeless tobacco. ETOH: reports no history of alcohol use. RECREATIONAL DRUG USE: Social History Substance and Sexual Activity Drug Use Never Family History: Family History Problem Relation Name Age of Onset Cancer Mother No Known Problems Father Review of Systems Constitutional: Negative. HENT: Negative. Eyes: Negative. Respiratory: Negative. Cardiovascular: Negative. Gastrointestinal: Negative. Endocrine: Negative. Genitourinary: Negative. Musculoskeletal: Positive for gait problem, neck pain and neck stiffness. Skin: Negative. Neurological: Positive for weakness. Psychiatric/Behavioral: Negative. Physical Examination: Vitals: 12/07/22 1450 BP: 133/89 Pulse: 85 Temp: 36.4 C (97.6 F) Physical Exam Constitutional: Appearance: Normal appearance. HENT: Head: Normocephalic. Eyes: Extraocular Movements: Extraocular movements intact. Pupils: Pupils are equal, round, and reactive to light. Cardiovascular: Rate and Rhythm: Normal rate. Pulmonary: Effort: Pulmonary effort is normal. Abdominal: Palpations: Abdomen is soft. Musculoskeletal: General: Normal range of motion. Cervical back: Normal range of motion and neck supple. Skin: General: Skin is warm and dry. Neurological: General: No focal deficit present. Mental Status: She is alert and oriented to person, place, and time. Cranial Nerves: Cranial nerves 2-12 are intact. Gait: Gait is intact. Deep Tendon Reflexes: Reflex Scores: Tricep reflexes are 2+ on the right side and 2+ on the left side. Bicep reflexes are 2+ on the right side and 2+ on the left side. Brachioradialis reflexes are 3+ on the right side and 3+ on the left side. Patellar reflexes are 3+ on the right side and 3+ on the left side. Achilles reflexes are 2+ on the right side and 2+ on the left side. Psychiatric: Mood and Affect: Mood normal. Judgment: Judgment normal. Neurologic Exam Mental Status Oriented to person, place, and time. Cranial Nerves Cranial nerves II through XII intact. CN III, IV, Pupils are equal, round, and reactive to light. Motor Exam Muscle bulk: normal Overall muscle tone: normal Strength Strength 5/5 except as noted. Right wrist flexion: 3/5 Left wrist flexion: 3/5 Right wrist extension: 3/5 Left wrist extension: 3/5 Right interossei: 3/5 Left interossei: 3/5 Sensory Exam Right arm light touch: decreased from wrist Left arm light touch: decreased from wrist Gait, Coordination, and Reflexes Gait Gait: normal Reflexes Right brachioradialis: 3+ Left brachioradialis: 3+ Right biceps: 2+ Left biceps: 2+ Right triceps: 2+ Left triceps: 2+ Right patellar: 3+ Left patellar: 3+ Right achilles: 2+ Left achilles: 2+ Right weekend anchor: 2+ Left weekend anchor: 2+ Right Khanna: present Left Khanna: present Gait shuffling; utilizes rollator for stability. Results Labs: Last 24hrs No results found for this or any previous visit (from the past 24 hour(s)). Radiology Personal review: MRI of the cervical spine shows degenerative changes at multiple levels, C3-C4, C4-C5, C5-C6 are her worst levels. At these levels there are large disc bulges that compress the cord causing severe cord compression and spinal stenosis. There is signal change within the cord at each level. ASSESSMENT / PLAN : Cervical myelopathy. She will need either an anterior cervical decompression and fusion or posterior cervical decompression and fusion. We will obtain a CT scan of the cervical spine to evaluate for calcified PLL or calcified disks. Depending on the results of the CAT scan we will either proceed with an anterior or posterior surgical approach. They will contact the office when the CAT scan is completed so we can review it and give her a call to schedule the most appropriate surgery. Risks and benefits of anterior cervical decompression and fusion as well as posterior cervical decompression and fusion were discussed with her and her son today. They want to proceed with the most appropriate surgery based on the results of her CAT scan. Diagnosis Plan 1. Cervical myelopathy (HCC) 2. 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 11-11-2022 History of Present illness Narrative Department of Neurological Sciences Impression: Diagnosis Plan 1. 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) (HCC) Ambulatory referral to Neurosurgery 2. Parkinsonism, unspecified Parkinsonism type (HCC) Presents with upper and lower extremity weakness in the upper motor distribution pattern. Has bilateral Nadira's. Affirms decreased sensation in bilateral hands. Has comorbid parkinsonism with bradykinesia and cogwheeling rigidity. Is unclear if she has idiopathic Parkinson's disease or drug-induced parkinsonism. MRI cervical spine images reviewed: severe spinal stenosis with evidence of myelopathy at C4 and C5. Plan: Refer to neurosurgery. She can talk to her psychiatrist about a trial of cogentin. Patient may return to neurology clinic if she experiences progression of parkinsonism. Orders Placed This Encounter Procedures Ambulatory referral to Neurosurgery Standing Status: Future Standing Expiration Date: 05/14/2023 Referral Priority: Routine Referral Type: Consultation Referral Reason: Specialty Services Required Requested Specialty: Neurosurgery Number of Visits Requested: 1 CHIEF COMPLAINT: Chief Complaint Patient presents with New Patient Extremity Weakness The patient states that she has been having issues with balance for 2-3 years. She has had falls. HISTORY OF PRESENT ILLNESS: The patient is a 72 y.o. female with a history of depression who presents imbalance and upper extremity paresthesias in setting of spinal stenosis. She reports that she developed difficulties with balance 2 to 3 years ago. She started using a rollator approximately 2 years ago. She experienced multiple falls with the last 2 to 3 months ago. Approximately 6 to 7 months ago she started developing paresthesias in her hands. She affirms some dexterity loss and is requiring assistance with upper extremity dressing. She now resides and assisted living facility. Her son who is present during exam today reports gait initiation difficulty and shuffling gait. Patient affirms mild tremor. She has been using Abilify and Invega for some years. Denies hallucinations, significant memory loss. She affirms some neck discomfort, denies radicular pain. Past Medical History: History reviewed. No pertinent past medical history. Past Surgical History: History reviewed. No pertinent surgical history. Medications: Current Outpatient Medications Medication Sig Dispense Refill albuterol 108 (90 Base) MCG/ACT inhaler INHALE TWO PUFFS BY MOUTH INTO THE LUNGS instructed EVERY 4 HOURS NEEDED FOR WHEEZING OR FOR SHORTNESS OF BREATH amLODIPine (Norvasc) 2.5 MG tablet ARIPiprazole (Abilify) 5 MG tablet Breo Ellipta 100-25 MCG/ACT aerosol powder buPROPion XL (Wellbutrin XL) 300 MG 24 hr tablet Calcium + Vitamin D3 600-10 MG-MCG tablet cholecalciferol (Vitamin D-3) 125 MCG (5000 UT) tablet Take 5,000 Units by mouth daily. clonazePAM (KlonoPIN) 0.5 MG tablet FLUoxetine (PROzac) 20 MG capsule fluticasone (Flonase) 50 MCG/ACT nasal spray instill TWO SPRAYS IN EACH nostril ONCE daily NEEDED Invega Sustenna 39 MG/0.25ML suspension prefilled syringe lamoTRIgine (LaMICtal) 25 MG tablet lisinopril 20 MG tablet Loratadine (Claritin) 10 MG capsule Take by mouth. Multiple Vitamin (High Potency Multivitamin) tablet ondansetron (Zofran) 4 MG tablet Take by mouth. No current facility-administered medications for this visit. Allergies: Sulfa antibiotics Social History: Social History Socioeconomic History Marital status: Spouse name: Not on file Number of children: Not on file Years of education: Not on file Highest education level: Not on file Occupational History Not on file Tobacco Use Smoking status: Never Smokeless tobacco: Never Substance and Sexual Activity Alcohol use: Never Drug use: Never Sexual activity: Not on file Other Topics Concern Not on file Social History Narrative Not on file Social Determinants of Health Financial Resource Strain: Not on file Food Insecurity: Not on file Transportation Needs: Not on file Physical Activity: Not on file Stress: Not on file Social Connections: Not on file Intimate Partner Violence: Not on file Housing Stability: Not on file Family History: No family history on file. REVIEW OF SYSTEMS: Positive for weakness, numbness, imbalance, anxiety, depression, neck pain No fevers,, photosensitivity, visual disturbances, chest tightness, chest pain, shortness of breath, palpitations, abdominal pain, nausea, heat intolerance, dysuria, muscle pain, headaches, seizures, confusion, PHYSICAL EXAM: Vitals: BP (!) 143/90 (BP Location: Left arm, Patient Position: Sitting) Pulse 92 Temp 36.6 C (97.9 F) (Infrared) Ht 5' 5" (1.651 m) Wt 158 lb 12.8 oz (72 kg) BMI 26.43 kg/m General: The patient was well developed, in no acute distress. HEENT: Normocephalic, atraumatic. Conjunctiva, lids, pupils, and irises clear. Oral mucosa is moist. Neck: No carotid bruits. No nuchal rigidity or neck tenderness to palpation. Cardiovascular: Regular rate and rhythm. No murmurs. Arms and legs are warm and well-perfused. No clubbing, cyanosis or edema. Lungs: Clear to auscultation. Abdomen: Soft, non-tender, non-distended. Positive bowel sounds. Skin (Restricted to face and distal upper and lower extremities): Unremarkable. Musculoskeletal: No tenderness observed. Neurological Examination: Mental Status: Patient is currently awake, alert, and oriented to person, place, and time. Able to state the reason for today's visit and can recall events leading up to this visit. Speech is soft. Cranial Nerves: II Optic: Pupils equal and reactive. Visual restrepo full. No papilledema appreciated on fundoscopic exam. III Oculomotor, IV Trochlear, Abducens: Extraocular movements intact. No nystagmus. No gaze palsy or paresis. No ptosis. V Trigeminal: Facial sensation normal and symmetric in V1-V3 distribution. VII Facial: Facial strength normal and symmetric, hypomimic VIII Vestibulocochlear: Hearing intact bilaterally. IX Glossopharyngeal / X Vagus: Palate elevates symmetrically and uvula midline. XI Accessory: Shoulder shrug symmetric. XII Hypoglossal: Tongue midline with normal bilateral strength. Motor Examination: Upper and lower extremities are 4 to 5- out of 5 in the upper motor neuron distribution. Tone is increased, she is bradykinetic with finger taps. Mild tremor Sensory Examination: Sensation decreased to LT in fingers of both hands. Intact pinprick, temperature,and vibration bilaterally throughout. No extinction to double simultaneous stimulation. Reflexes: 3+ reflexes in biceps, triceps, brachioradialis, patella,ankles. Bilateral hoffmans. Cerebellar Examination: There is no overt dysmetria nor dysdiadochokinesia with [id number] or rapid alternating movements. Gait Examination: Slow to stand, shuffling gait with RW documented in this encounter [facility] 08-12-2022 History of Present illness Narrative [facility] PROGRESS NOTE PATIENT: Pily Barnes MRD: [id number] DATE: August 12, 2022 IDENTIFYING INFORMATION: Pily is a 72 year old female with a history of Bipolar 1 disorder with general anxiety disorder. This visit is being conducted using HIPPA compliant telecommunication system permitting interactive audio and video Proper identity has been estbablished and consent to treat is confirmed. phone CHIEF COMPLAINT: "I had a good Thanksgiving" INTERIM HISTORY: She shares she had a good visit with her son and her Daughter in law. Her grand children are doing well. Her mobility is improving she uses a cane to get to the dining room. She thinks her mood is good, she is socializing with others and reading as well. Review of Systems Gastrointestinal: Positive for abdominal pain, nausea and vomiting. Psychiatric/Behavioral: Negative for depression. The patient is nervous/anxious. Substance Use History: no history of substance Review Labs/Diagnostics: her labs are monitored by the resident providers. Medication Review: She is taking her medicine and wonders if some of her medicine can be decreased. Therapy: She shares her blood pressure has been elevated with the lower reading between 90-100 She would like her medicine addressed. She shares the rollater was getting away from her, so she went back to the cane. She still not feeling all that stable. A lot of her anxiety has subsided as well as the chronic persistent suicidal ideation. She has not had any psychotic features since living at the facility RATING SCALES: She was unable to answer PHQ-9 KYLEE-7 Depression Screening: PHQ-9 All Questions 07/15/2021 02/15/2022 Little interest or pleasure in doing things 1 1 Feeling down, depressed, or hopeless 1 1 Trouble falling or staying asleep, or sleeping too much 0 0 Feeling tired or having little energy 0 0 Poor appetite or overeating 0 0 Feeling bad about yourself - or that you are a failure or have let yourself or your family down 1 1 Trouble concentrating on things, such as reading the newspaper or watching television 0 0 Moving or speaking so slowly that other people could have noticed. Or the opposite - being so fidgety or restless that you have been moving around a lot more than usual 0 0 Thoughts that you would be better off , or of hurting yourself in some way 1 0 PHQ-9 Score 4 3 (0-4) Minimal Depression (5-9) Mild Depression (10-14) Moderate Depression (15-19) Moderately severe Depression (20-27) Severe Depression KYLEE-7 Screening: KYLEE-7 All Questions 07/15/2021 02/15/2022 Nervous, anxious or on edge 1 1 Not being able to stop or control worrying 1 0 Worrying too much 1 0 Trouble relaxing 1 0 Restless 0 0 Annoyed or irritable 0 0 Afraid something awful might happen 0 0 KYLEE-7 Score 4 1 (0-5) mild anxiety (6-10) moderate anxiety (11-15) Moderately severe anxiety (16-21) Severe anxiety [place] SUICIDE SEVERITY RATING SCALE 1.) Wish to be : Have you wished you were or wished you could go to sleep and not wake up? YES 2.) Suicidal Thoughts: Have you actually had any thoughts of killing yourself? YES 3.) Suicidal Thoughts with Method (without Specific Plan or Intent to Act): Have you been thinking about how you might kill yourself? NO 4.) Suicidal Intent (without Specific Plan): Have you had these thoughts and had some intention of acting on them? YES 5) Suicide Intent with Specific Plan: Have you started to work out or worked out the details of how to kill yourself? Do you intend to carry out this plan? NO 6.) Suicide Behavior Question: Have you ever done anything, started to do anything, or prepared to do anything to end your life?NO RISK LEVEL RISK/PROTECTIVE FACTOR SUICIDALITY POSSIBLE INTERVENTIONS High Psychiatric disorders with severe symptoms, or acute precipitating event; protective factors not relevant Potentially lethal suicide attempt or persistent ideation with strong intent or suicide rehearsal Admission generally indicated unless a significant change reduces risk. Suicide precautions Moderate Multiple risk factors, few protective factors Suicidal ideation with plan, but no intent or behavior Admission may be necessary depending on risk factors. Develop crisis plan. Give emergency/crisis numbers Low Modifiable risk factors, strong protective factors Thoughts of , no plan, intent or behavior Outpatient referral, symptom reduction. Give emergency/crisis numbers Risk level: No suicidal ideation or thoughts of self-harm Current Outpatient Medications on File Prior to Visit Medication Sig clonazePAM (KLONOPIN) 0.5 mg tablet 1/2 tablet by mouth every day as needed for severe anxiety buPROPion XL (WELLBUTRIN XL) 300 mg 24 hr tablet Take 1 tablet by mouth once daily. FLUoxetine (PROZAC) 20 mg capsule 3 capsule daily ARIPiprazole (ABILIFY) 5 mg tablet Take 1 tablet by mouth once daily. lamoTRIgine (LAMICTAL) 25 mg tablet Take 2 tablets by mouth once daily. paliperidone palmitate (INVEGA SUSTENNA) 39 mg/0.25 mL syrg injection INJECT 0.25 ML into THE MUSCLE EVERY FOUR WEEKS fluticasone-vilanterol (BREO ELLIPTA) 100-25 mcg/dose inhaler Inhale 1 puff BY MOUTH INTO THE LUNGS EVERY DAY fluticasone (FLONASE) 50 mcg/actuation nasal spray instill TWO SPRAYS IN EACH nostril ONCE daily NEEDED albuterol HFA (PROVENTIL HFA, VENTOLIN HFA) 90 mcg/actuation inhaler INHALE TWO PUFFS BY MOUTH INTO THE LUNGS instructed EVERY 4 HOURS NEEDED FOR WHEEZING OR FOR SHORTNESS OF BREATH lisinopril (ZESTRIL, PRINIVIL) 20 mg tablet Take 1 tablet by mouth once daily. amLODIPine (NORVASC) 2.5 mg tablet Take 1 tablet by mouth once daily. calcium carbonate/vitamin D3 (CALCIUM + D ORAL) Take by mouth once daily. cholecalciferol, vitamin D3, (VITAMIN D3 ORAL) Take 1 tablet by mouth once daily. loratadine (CLARITIN ORAL) Take 1 tablet by mouth once daily. therapeutic multivitamin w/ iron (THERAGRAN-M) 9 mg iron-400 mcg tablet Take 1 tablet by mouth once daily. Current Facility-Administered Medications on File Prior to Visit Medication glycopyrrolate 0.2 mg injection (ROBINUL) ondansetron (PF) 4 mg injection (ZOFRAN) Medication side effects: None Delusions: None Hallucinations: none Past family; and social history reviewed. VITAL SIGNS: There were no vitals taken for this visit. LAB DATA: Reviewed and discussed. No flowsheet data found. AIMS TESTING NA MENTAL STATUS EXAMINATION: Appearance: Unable to assess Psychomotor Activity: Unable to assess Behavior: Cooperative, Speech: spontaneous , Normal rate, Normal volume, Clear, she initially started with very short close ended utterances but as we continued in our discussion she began to become more fluent and able to talk more about her thoughts Mood: Calm Affect: appropriate to content Thought Process: logical Thought Content: No suicidal ideation, intent or plan., No homicidal ideation, intent or plan., Logical Cognition: Orientation: Person, Place, Time and Situation Attention: Intact Concentration: Impaired Language: Intact naming, Intact repetition Estimated Intelligence: Good Memory: Mildly Impaired recent memory, Mildly Impaired remote memory Abstraction: Intact Insight: adequate Judgement: adequate RISK ASSESSMENT: Discussed the risk and benefit of the medication, client demonstrates understanding. Discussed importance of the chosen treatment plan. Client agrees with the discussed plans and efforts to keep within the stated plan. PDMP website checked and validated. All prescriptions have been APPROPRIATELY filled. No suspicious activity was identified. 08/12/2022 by Danny De La Cruz APRN.CNP ASSESSMENT/PLAN: 1. Bipolar 1 disorder (HCC) - ICD9: 296.7, ICD10: F31.9 (primary diagnosis) 2. Generalized anxiety disorder - ICD9: 300.02, ICD10: F41.1 Follow-up with the director of nurses regarding her medications as I have not filled any in quite some time In discussing with the patient she has not had any of the injections of her paliperidone Called and left message for the DON to call me relating to her medicine. Danny De La Cruz APRN.CNP Patient understands and agrees with the treatment plan: Yes Return in about 4 weeks (around 09/09/2022), or 09/29 1:30 phone. Psycho-Education: Total time in direct patient contact = 30 min. Greater than 50% of the time was spent in counseling and/or coordination of care. documented in this encounter [facility] 07-01-2022 Miscellaneous Notes Patient called and is requesting to speak with you. Marija Daniels documented in this encounter [facility] 05-26-2022 History of Present illness Narrative POPULATION HEALTH NAVIGATION OUTREACH Action/FYI Pt identified by name and : NO Outreach Outcome/Action Patient currently at [facility], . I called facility to inquire if she is now under PCP care of provider there or if she is under care of Dr Valentín pierre. They are going to confirm with DON and call back. Will continue efforts to update chart. Did you use a PCP flex slot to schedule this appointment? N/A Reason for Outreach Care Gap or Scheduling/Wellness visits Payer: Payor: [facility] MEDICARE / Plan: [employer] [facility] MEDICARE / Product Type: Medicare / Care Gap Reviewed:: Annual Wellness visit Breast Cancer screening Reminder: Reminder note to check Health Maintenance for items below Health Maintenance items due: SPIROMETRY Never done BP CONTROLLED (<130/80) Never done COLORECTAL CANCER SCREENING Never done DTAP,TDAP,TD(1 - Tdap) due on 07/03/2019 MAMMOGRAM due on 10/02/2019 ADVANCE DIRECTIVE DISCUSSION Never done COVID-19 VACCINE(4 - Booster for Pfizer series) due on 05/05/2022 INFLUENZA(1) due on 05/05/2022 Message Sent to Practice: No Navigation Signature: Cee Gonzalez May 26, 2022 3:12 PM documented in this encounter [facility] 04-05-2022 History of Present illness Narrative [facility] PROGRESS NOTE PATIENT: Pily Barnes MRD: [id number] DATE: April 05, 2022 IDENTIFYING INFORMATION: Pily is a 71 year old female with a history of bipolar 1 disorder, with general anxiety. This visit is being conducted using HIPPA compliant telecommunication system permitting interactive audio and video Proper identity has been estbablished and consent to treat is confirmed. phone CHIEF COMPLAINT: "I am trying to adjust to the new place" INTERIM HISTORY: She shares that she has less mobility. She is still in the wheel chair. It is going to take time. She still has to have help in going to the bathroom. She shares she isn't drinking enough water because of needing to have help in toileting. She is talking to some of the people at her table, they are hard of hearing. The food is good. She is reading, and they have a book club she is going to attend. The brethren and the reckoning. 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 She is taking her medicine, she think her mood is still difficult. She is meeting with her therapist who is encouraging her to look at what she has done instead of what she hasn't done. Review of Systems Musculoskeletal: Significant leg weakness and loss of mobility Psychiatric/Behavioral: Positive for depression. The patient is nervous/anxious. Since Pily's admission to the facility she is staying and I did discuss with her porter sample case to call and the director of nurses best treatment options for care it was decided that I would retain care of her is in psychiatry due to her mental health needs. Substance Use History: No history of substance use Review Labs/Diagnostics: No new labs to review Medication Review: She shares she is taking her medications without any problems Therapy: Therapist comes in to meet with her weekly RATING SCALES: Unable to do the rating scales she does have suicidal ideation but no plans. Depression Screening: PHQ-9 All Questions 07/15/2021 02/15/2022 Little interest or pleasure in doing things 1 1 Feeling down, depressed, or hopeless 1 1 Trouble falling or staying asleep, or sleeping too much 0 0 Feeling tired or having little energy 0 0 Poor appetite or overeating 0 0 Feeling bad about yourself - or that you are a failure or have let yourself or your family down 1 1 Trouble concentrating on things, such as reading the newspaper or watching television 0 0 Moving or speaking so slowly that other people could have noticed. Or the opposite - being so fidgety or restless that you have been moving around a lot more than usual 0 0 Thoughts that you would be better off , or of hurting yourself in some way 1 0 PHQ-9 Score 4 3 (0-4) Minimal Depression (5-9) Mild Depression (10-14) Moderate Depression (15-19) Moderately severe Depression (20-27) Severe Depression KYLEE-7 Screening: KYLEE-7 All Questions 07/15/2021 02/15/2022 Nervous, anxious or on edge 1 1 Not being able to stop or control worrying 1 0 Worrying too much 1 0 Trouble relaxing 1 0 Restless 0 0 Annoyed or irritable 0 0 Afraid something awful might happen 0 0 KYLEE-7 Score 4 1 (0-5) mild anxiety (6-10) moderate anxiety (11-15) Moderately severe anxiety (16-21) Severe anxiety [place] SUICIDE SEVERITY RATING SCALE 1.) Wish to be : Have you wished you were or wished you could go to sleep and not wake up? YES 2.) Suicidal Thoughts: Have you actually had any thoughts of killing yourself? YES 3.) Suicidal Thoughts with Method (without Specific Plan or Intent to Act): Have you been thinking about how you might kill yourself? NO 4.) Suicidal Intent (without Specific Plan): Have you had these thoughts and had some intention of acting on them? YES 5) Suicide Intent with Specific Plan: Have you started to work out or worked out the details of how to kill yourself? Do you intend to carry out this plan? NO 6.) Suicide Behavior Question: Have you ever done anything, started to do anything, or prepared to do anything to end your life?YES, Over a year ago RISK LEVEL RISK/PROTECTIVE FACTOR SUICIDALITY POSSIBLE INTERVENTIONS High Psychiatric disorders with severe symptoms, or acute precipitating event; protective factors not relevant Potentially lethal suicide attempt or persistent ideation with strong intent or suicide rehearsal Admission generally indicated unless a significant change reduces risk. Suicide precautions Moderate Multiple risk factors, few protective factors Suicidal ideation with plan, but no intent or behavior Admission may be necessary depending on risk factors. Develop crisis plan. Give emergency/crisis numbers Low Modifiable risk factors, strong protective factors Thoughts of , no plan, intent or behavior Outpatient referral, symptom reduction. Give emergency/crisis numbers Risk level: Low she has passive suicidal ideation Current Outpatient Medications on File Prior to Visit Medication Sig fluticasone-vilanterol (BREO ELLIPTA) 100-25 mcg/dose inhaler Inhale 1 puff BY MOUTH INTO THE LUNGS EVERY DAY fluticasone (FLONASE) 50 mcg/actuation nasal spray instill TWO SPRAYS IN EACH nostril ONCE daily NEEDED clonazePAM (KLONOPIN) 0.5 mg tablet 1/2 tablet by mouth every day as needed for severe anxiety paliperidone palmitate (INVEGA SUSTENNA) 39 mg/0.25 mL syrg injection INJECT 0.25 ML into THE MUSCLE EVERY FOUR WEEKS albuterol HFA (PROVENTIL HFA, VENTOLIN HFA) 90 mcg/actuation inhaler INHALE TWO PUFFS BY MOUTH INTO THE LUNGS instructed EVERY 4 HOURS NEEDED FOR WHEEZING OR FOR SHORTNESS OF BREATH buPROPion XL (WELLBUTRIN XL) 300 mg 24 hr tablet TAKE ONE TABLET BY MOUTH EVERY DAY FLUoxetine (PROZAC) 20 mg capsule TAKE THREE CAPSULES BY MOUTH EVERY DAY ARIPiprazole (ABILIFY) 5 mg tablet TAKE ONE TABLET BY MOUTH EVERY DAY lamoTRIgine (LAMICTAL) 25 mg tablet Take 2 tablets by mouth once daily. lisinopril (ZESTRIL, PRINIVIL) 20 mg tablet Take 1 tablet by mouth once daily. amLODIPine (NORVASC) 2.5 mg tablet Take 1 tablet by mouth once daily. calcium carbonate/vitamin D3 (CALCIUM + D ORAL) Take by mouth once daily. cholecalciferol, vitamin D3, (VITAMIN D3 ORAL) Take 1 tablet by mouth once daily. loratadine (CLARITIN ORAL) Take 1 tablet by mouth once daily. therapeutic multivitamin w/ iron (THERAGRAN-M) 9 mg iron-400 mcg tablet Take 1 tablet by mouth once daily. Current Facility-Administered Medications on File Prior to Visit Medication glycopyrrolate 0.2 mg injection (ROBINUL) ondansetron (PF) 4 mg injection (ZOFRAN) Medication side effects: None Delusions: None Hallucinations: none Past family; and social history reviewed. VITAL SIGNS: There were no vitals taken for this visit. LAB DATA: Reviewed and discussed. No flowsheet data found. AIMS TESTING unable to assess MENTAL STATUS EXAMINATION: Appearance: Unable to assess Psychomotor Activity: Unable to assess Behavior: Cooperative, engaging in conversation Speech: spontaneous , Normal rate, Normal volume, Clear, Mood: Calm and She is uplifted in her tone of voice but the content of her language still demonstrates she is sad about [facility] she is [facility] Affect: appropriate to content Thought Process: logical Thought Content: Thoughts of , but not suicide., No homicidal ideation, intent or plan., Logical Cognition: Orientation: Person, Place, Time and Situation Attention: Intact Concentration: Intact Language: Intact naming, Intact repetition Estimated Intelligence: Good Memory: Mildly Impaired recent memory, Mildly Impaired remote memory Abstraction: Intact Insight: adequate Judgement: adequate RISK ASSESSMENT: Discussed the risk and benefit of the medication, client demonstrates understanding. Discussed importance of the chosen treatment plan. Client agrees with the discussed plans and efforts to keep within the stated plan. PDMP website checked and validated. All prescriptions have been APPROPRIATELY filled. No suspicious activity was identified. 04/05/2022 by Danny De La Cruz APRN.CNP ASSESSMENT/PLAN: 1. Bipolar 1 disorder (HCC) - ICD9: 296.7, ICD10: F31.9 (primary diagnosis) 2. Generalized anxiety disorder - ICD9: 300.02, ICD10: F41.1 [facility] [place] [facility] [phone] Continue with Invega 39 mg monthly Abilify 5 mg daily Clonazepam 0.5 mg at bedtime as needed for anxiety Lamictal 50mg daily Bupropion XL 300mg daily Fluoxetine 20mg 3 capsules daily Encouraged her with striving for small accomplishments such as making transfers from the wheel chair to bed safely and to continue with exercising. Danny De La Cruz APRN.BEATA Patient understands and agrees with the treatment plan: Yes Return need to call and schedule for 4 weeks.. Psycho-Education: Total time in direct patient contact = 30 min. Greater than 50% of the time was spent in counseling and/or coordination of care. documented in this encounter [facility] 03-28-2022 Miscellaneous Notes Left voicemail to schedule Marija Daniels documented in this encounter [facility] 03-21-2022 Miscellaneous Notes Called Sanam to talk about Pily Barnes. I am not closing Pily's case, My discussion with Pily regarded does she have somebody prescribing her medicines for her. I had contacted the DON To determine if she does have another foster care social worker who will be prescribing her medicines. Will continue with care. Patient's porter sample case from [facility], Sanam, called to speak with you. She states the patient told her you were closing her case and she has some questions. [phone] Marija Daniels documented in this encounter [facility] 03-18-2022 History of Present illness Narrative TRANSITIONAL CARE MANAGEMENT (TCM) COMMUNITY MONITORING PROGRAM - [facility] Provider Action/FYI: SUMMARY: [facility]. Admitted for: Rhabdomyolysis Contact made with patient: No - next outreach attempt will be on next day Outreach ended Soco Barrera RN documented in this encounter [facility] 03-18-2022 History of Present illness Narrative PRIMARY CARE COORDINATION QUICK NOTE Provider Action/FYI Patient identified by name and date . [facility] to [facility] patient no longer at this facility. TC to [facility] [phone]. Patient returned to facility on 03/17/22. Patient has nursing administering her medications and aides that assist with care. Patient will continue to follow with Dr Laura. Soco Barrera RN documented in this encounter [facility] 03-17-2022 Miscellaneous Notes requesting the following refill Refill(s) Requested: Pending Prescriptions Disp Refills FLUTICASONE FUROATE 100 MCG-VILANTEROL 25 MCG/DOSE INHALATION POWDER 3 Sig: Inhale 1 puff BY MOUTH INTO THE LUNGS EVERY DAY DENNY: Yes ALLERGIES Allergen Reactions Sulfadiazine Swelling Facial swelling Seasonal Allergies Intolerance Sulfa (Sulfonamide * Itching (home) [phone] (cell) Last Office Visit Date: 01/28/2022 Last Distance Health Visit: Visit date not found Future Appointment: Visit date not found The patients preferred pharmacy has been captured for this encounter? yes Request is for script(s) to be escript to pharmacy. Adrianne Mckee LPN documented in this encounter [facility] 03-11-2022 History of Present illness Narrative PRIMARY CARE COORDINATION QUICK NOTE Provider Action/FYI Patient identified by name and date . TC To Josselyn Mcdonald requesting update on discharge plan. Spoke with Helen rn social work. Plan is for the patient to be discharged to [facility]. Unsure of discharge date at this time. Instructed to call back next week after Monday Meeting. Soco Barrera RN documented in this encounter [facility] 03-10-2022 Miscellaneous Notes requesting the following refill Refill(s) Requested: Pending Prescriptions Disp Refills FLUTICASONE PROPIONATE 50 MCG/ACTUATION NASAL SPRAY,SUSPENSION 16 g 3 Sig: instill TWO SPRAYS IN EACH nostril ONCE daily NEEDED DENNY: No ALLERGIES Allergen Reactions Sulfadiazine Swelling Facial swelling Seasonal Allergies Intolerance Sulfa (Sulfonamide * Itching (home) [phone] (cell) Last Office Visit Date: 10/19/2021 Last Distance Health Visit: 02/22/2022 Future Appointment: Visit date not found The patients preferred pharmacy has been captured for this encounter? yes Request is for script(s) to be escript to pharmacy. Adrianne Mckee LPN documented in this encounter [facility] 02-28-2022 Miscellaneous Notes Pharmacy faxed requesting the following refill: Refill(s) Requested: Pending Prescriptions Disp Refills INVEGA SUSTENNA 39 MG/0.25 ML INTRAMUSCULAR SYRINGE 0.25 mL 1 Sig: INJECT 0.25 ML into THE MUSCLE EVERY FOUR WEEKS DENNY: No ALLERGIES Allergen Reactions Sulfadiazine Swelling Facial swelling Seasonal Allergies Intolerance Sulfa (Sulfonamide * Itching (home) [phone] (cell) Last Office Visit Date: 02/15/2022 Last [facility] Visit: Visit date not found Future Appointment: Visit date not found The patients preferred pharmacy has been captured for this encounter? yes Request is for script(s) to be escript to pharmacy. 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 Pily Barnes is a 71 year old White female who presented to the office for right lobe multiple thyroid Nodules evaluation and management. PCP: Danny Laura MD. Subjective The history is provided by the patient. Initial History: (05/25/21) Patient is here for right thyroid nodule evaluation Other significant medical history includes hypertension, bipolar disorder, and obstructive sleep apnea Patient was initially found to have incidental thyroid mass in June 2020 after she was hospitalized for trauma. She subsequently underwent FNA of the right thyroid nodule which was benign based on Afirma testing. 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 Denies progressive neck swelling or trouble swallowing. No complications after the surgery No history of radiation treatment for chest or head and neck Sister and maternal grandmother both had their thyroid removed but no family history of thyroid cancer Interval History (02/24/2022): Patient reports no new symptoms. Patient is moving to assisted living facility. Review of Systems She reports trouble raising her voice but denies neck swelling, trouble swallowing or shortness of breath. She feels that her voice has changed for a while HISTORY REVIEWED (electronic chart updated): PAST MEDICAL HISTORY Diagnosis Date Asthma Balance problem uses a walker Bipolar 1 disorder (HCC) Depression Hypertension Mitral valve disorder TATI (obstructive sleep apnea) 08/06/2019 undiagnosed Substernal goiter PAST SURGICAL HISTORY Procedure Laterality Date HYSTERECTOMY HX POST-CATARACT LASER SURGERY 09/2020 THYROIDECTOMY TOTAL/COMPLETE Left 12/16/2020 Dr. Soria FAMILY HISTORY Problem Relation Age of Onset Psychiatry Mother other (parkinson disease) Mother Uterine Cancer Mother Ischemic Heart Disease Father Thyroid Sister Social History Tobacco Use Smoking status: Never Smoker Smokeless tobacco: Never Used Vaping Use Vaping Use: Never used Substance Use Topics Alcohol use: No Drug use: No Current Outpatient Medications Medication Sig Dispense Refill clonazePAM (KLONOPIN) 0.5 mg tablet TAKE ONE-HALF TABLET BY MOUTH EVERY DAY NEEDED FOR SEVERE ANXIETY 30 tablet 1 albuterol HFA (PROVENTIL HFA, VENTOLIN HFA) 90 mcg/actuation inhaler INHALE TWO PUFFS BY MOUTH INTO THE LUNGS instructed EVERY 4 HOURS NEEDED FOR WHEEZING OR FOR SHORTNESS OF BREATH 18 g 3 buPROPion XL (WELLBUTRIN XL) 300 mg 24 hr tablet TAKE ONE TABLET BY MOUTH EVERY DAY 30 tablet 2 FLUoxetine (PROZAC) 20 mg capsule TAKE THREE CAPSULES BY MOUTH EVERY DAY 90 capsule 2 paliperidone palmitate (INVEGA SUSTENNA) 39 mg/0.25 mL syrg injection 1 injection every 4 weeks 0.25 mL 1 ARIPiprazole (ABILIFY) 5 mg tablet TAKE ONE TABLET BY MOUTH EVERY DAY 30 tablet 2 BREO ELLIPTA 100-25 mcg/dose inhaler INHALE ONE PUFF BY MOUTH EVERY DAY 60 Each 3 lamoTRIgine (LAMICTAL) 25 mg tablet Take 2 tablets by mouth once daily. 180 tablet 1 lisinopril (ZESTRIL, PRINIVIL) 20 mg tablet Take 1 tablet by mouth once daily. 90 tablet 3 amLODIPine (NORVASC) 2.5 mg tablet Take 1 tablet by mouth once daily. 90 tablet 3 fluticasone (FLONASE) 50 mcg/actuation nasal spray USE 2 SPRAYS IN EACH NOSTRIL ONCE A DAY NEEDED 1 Each 3 calcium carbonate/vitamin D3 (CALCIUM + D ORAL) Take by mouth once daily. cholecalciferol, vitamin D3, (VITAMIN D3 ORAL) Take 1 tablet by mouth once daily. loratadine (CLARITIN ORAL) Take 1 tablet by mouth once daily. amLODIPine (NORVASC) 2.5 mg tablet TAKE ONE TABLET BY MOUTH EVERY DAY (Patient not taking: Reported on 01/28/2022) 90 tablet 3 fluticasone (FLONASE) 50 mcg/actuation nasal spray USE 2 SPRAYS IN EACH NOSTRIL ONCE A DAY NEEDED (Patient not taking: Reported on 01/28/2022) 48 g 3 therapeutic multivitamin w/ iron (THERAGRAN-M) 9 mg iron-400 mcg tablet Take 1 tablet by mouth once daily. No current facility-administered medications for this visit. Facility-Administered Medications Ordered in Other Visits Medication Dose Route Frequency Provider Last Rate Last Admin glycopyrrolate 0.2 mg injection (ROBINUL) 0.2 mg INTRAVENOUS (PACU) PRLuis E Alexandra MD ondansetron (PF) 4 mg injection (ZOFRAN) 4 mg INTRAVENOUS (PACU) PRN Shannon Alexandra MD Objective BP 126/83 Pulse 89 Ht 5' 0" (1.52m) Wt 146 lb 1.6 oz (66.3kg) BMI 28.53 kg/(m^2). Physical Exam Vitals and nursing note reviewed. Constitutional: General: She is not in acute distress. Comments: Using a wheelchair to ambulate HENT: Head: Atraumatic. Neck: Thyroid: No thyroid mass or thyroid tenderness. Comments: Well-healed surgical scar Cardiovascular: Rate and Rhythm: Normal rate and regular rhythm. Pulmonary: Effort: No respiratory distress. Breath sounds: Normal breath sounds. Lymphadenopathy: Cervical: No cervical adenopathy. Neurological: General: No focal deficit present. Mental Status: She is alert. Psychiatric: Mood and Affect: Affect normal. Labs and imaging data: Reviewed Component Latest Ref Rng & Units 06/07/2020 01/26/2021 10/19/2021 TSH 0.270 - 4.200 uU/mL 1.260 4.120 2.200 Free T4 0.9 - 1.7 ng/dL 1.3 FINAL DIAGNOSIS 12/16/2020 A. Submitted as ("lymph node"), excision - Fibroadipose tissue and thyroid tissue. - See comment. B. Thyroid, left lobe, left lobectomy - Multinodular hyperplasia with degenerative changes. Thyroid ultrasound on 11/23/2021 Right Lobe: 4.4 x 1.5 x 1.8 cm; homogeneous echogenicity, expected vascular flow. Left Lobe: Surgically absent Isthmus: 0.4 cm The most suspicious thyroid nodule(s) (up to four) as below: NODULE 1: Location: Right lobe -middle pole Size: 1.2 x 1.2 x 1.4 cm Characteristics: Composition: Solid or almost completely solid, 2 points Echogenicity: Hypoechoic, 2 points Shape: [id number], 3 points Margin: Smooth, 0 points Echogenic foci (add points for all that apply): Peripheral (rim) calcification (complete or incomplete), 2 points Internal vascularity: absent Interval growth: Stable TI-RADS Category: TR5 ACR Recommendation: TI-RADS 5 nodule. FNA is advised. NODULE 2: Location: Right lobe -middle pole Size: 1.4 x 1.2 x 1.3 cm Characteristics: Composition: Solid or almost completely solid, 2 points Echogenicity: Hypoechoic, 2 points Shape: [id number], 0 points Margin: Smooth, 0 points Echogenic foci (add points for all that apply): None, 0 points Internal vascularity: absent Interval growth: Stable TI-RADS Category: TR4 ACR Recommendation: TI-RADS 4 nodule. Follow up imaging in 1, 2, 3 and 5 years is advised. NODULE 3: Location: Right lobe -lateral Size: 0.9 x 0.9 x 0.7 cm Characteristics: Composition: Solid or almost completely solid, 2 points Echogenicity: Hypoechoic, 2 points Shape: [id number], 0 points Margin: Smooth, 0 points Echogenic foci (add points for all that apply): None, 0 points Internal vascularity: absent Interval growth: Stable TI-RADS Category: TR4 ACR Recommendation: TI-RADS 4 nodule. No FNA or follow-up imaging is advised. Previous medical records: Reviewed Assessment & Plan Assessment: Impression: (Some elements copied from my notes 11/01/2021, which have been updated where appropriate, and all reflect current medical decision making from today, 02/24/2022) Pily was seen today for thyroid problem. 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 I discussed the plan of care with the patient in details including different treatment options and side effects of medications prescribed in this visit. Complications of untreated or uncontrolled disease were also discussed. Patient expressed understanding and agreement. Return in about 1 year (around 02/24/2023). Anthony Ramirez MD [facility] Endocrinology [address], [address] [place] [address] This note was partially generated using [employer] voice recognition system, and there may be some incorrect words, spellings, and punctuation that were not intended as it appear in the note. documented in this encounter [facility] 02-16-2022 Miscellaneous Notes Sanam from [facility] called regarding an assisted living facility that has an opening for pt. They will need an H&P, med list, any standing orders, and DX. They would like to get pt in this opening. [facility] in [place] is the location FAX is [phone]. They have sent the forms to our office. I will locate and put in your box. documented in this encounter [facility] 02-15-2022 History of Present illness Narrative [facility] PROGRESS NOTE PATIENT: Pily Barnes MRD: [id number] DATE: February 15, 2022 IDENTIFYING INFORMATION: Pily is a 71 year old female with a history of bipolar 1 disorder depressed, generalized anxiety. CHIEF COMPLAINT: "frequent falls" INTERIM HISTORY: I spent time talking with her son who shared he notes when she is walking, she is moving faster than her feel will go. Today in the office, she was noted to have a pretty good 'get up and go' she is using her rollator well. I had her walk up and down a very short hallway and at 10 feet, she started shuffling her feet, catching her toes in the carpet with notable instability in her balance. She shares she had become tired. She has been in the ED several times, she will fall sometimes in spells then she goes without. We have decreased her Invega, she is sleeping good at night. Not needing naps in the day. The library has come to her building and she is reading the new books and enjoying them. Review of Systems Neurological: Frequent falls, her body is moving faster than her feet. Adequate with hand eye coordination Psychiatric/Behavioral: Negative for depression. The patient is nervous/anxious. She no longer has suicidal ideation Substance Use History: no history of substance use Review Labs/Diagnostics: reviewed she has an upcoming visit with weight shifter Medication Review: she has had the reduced dosing of invega doing well. Therapy:she gets in home therapy RATING SCALES: PHQ-9 3 KYLEE-7 1 Depression Screening: PHQ-9 All Questions 07/15/2021 02/15/2022 Little interest or pleasure in doing things 1 1 Feeling down, depressed, or hopeless 1 1 Trouble falling or staying asleep, or sleeping too much 0 0 Feeling tired or having little energy 0 0 Poor appetite or overeating 0 0 Feeling bad about yourself - or that you are a failure or have let yourself or your family down 1 1 Trouble concentrating on things, such as reading the newspaper or watching television 0 0 Moving or speaking so slowly that other people could have noticed. Or the opposite - being so fidgety or restless that you have been moving around a lot more than usual 0 0 Thoughts that you would be better off , or of hurting yourself in some way 1 0 PHQ-9 Score 4 3 (0-4) Minimal Depression (5-9) Mild Depression (10-14) Moderate Depression (15-19) Moderately severe Depression (20-27) Severe Depression KYLEE-7 Screening: KYLEE-7 All Questions 07/15/2021 02/15/2022 Nervous, anxious or on edge 1 1 Not being able to stop or control worrying 1 0 Worrying too much 1 0 Trouble relaxing 1 0 Restless 0 0 Annoyed or irritable 0 0 Afraid something awful might happen 0 0 KYLEE-7 Score 4 1 (0-5) mild anxiety (6-10) moderate anxiety (11-15) Moderately severe anxiety (16-21) Severe anxiety [place] SUICIDE SEVERITY RATING SCALE 1.) Wish to be : Have you wished you were or wished you could go to sleep and not wake up? YES 2.) Suicidal Thoughts: Have you actually had any thoughts of killing yourself? YES 3.) Suicidal Thoughts with Method (without Specific Plan or Intent to Act): Have you been thinking about how you might kill yourself? NO 4.) Suicidal Intent (without Specific Plan): Have you had these thoughts and had some intention of acting on them? YES 5) Suicide Intent with Specific Plan: Have you started to work out or worked out the details of how to kill yourself? Do you intend to carry out this plan? NO 6.) Suicide Behavior Question: Have you ever done anything, started to do anything, or prepared to do anything to end your life?YES, Over a year ago RISK LEVEL RISK/PROTECTIVE FACTOR SUICIDALITY POSSIBLE INTERVENTIONS High Psychiatric disorders with severe symptoms, or acute precipitating event; protective factors not relevant Potentially lethal suicide attempt or persistent ideation with strong intent or suicide rehearsal Admission generally indicated unless a significant change reduces risk. Suicide precautions Moderate Multiple risk factors, few protective factors Suicidal ideation with plan, but no intent or behavior Admission may be necessary depending on risk factors. Develop crisis plan. Give emergency/crisis numbers Low Modifiable risk factors, strong protective factors Thoughts of , no plan, intent or behavior Outpatient referral, symptom reduction. Give emergency/crisis numbers Risk level: she no longer has suicidal ideation. She used to lay in bed and think of suicide by taking all her medicine. Last hospitalization was in August of 2019 Current Outpatient Medications on File Prior to Visit Medication Sig albuterol HFA (PROVENTIL HFA, VENTOLIN HFA) 90 mcg/actuation inhaler INHALE TWO PUFFS BY MOUTH INTO THE LUNGS instructed EVERY 4 HOURS NEEDED FOR WHEEZING OR FOR SHORTNESS OF BREATH clonazePAM (KLONOPIN) 0.5 mg tablet TAKE ONE-HALF TABLET BY MOUTH EVERY DAY NEEDED FOR SEVERE ANXIETY buPROPion XL (WELLBUTRIN XL) 300 mg 24 hr tablet TAKE ONE TABLET BY MOUTH EVERY DAY FLUoxetine (PROZAC) 20 mg capsule TAKE THREE CAPSULES BY MOUTH EVERY DAY paliperidone palmitate (INVEGA SUSTENNA) 39 mg/0.25 mL syrg injection 1 injection every 4 weeks paliperidone palmitate (INVEGA SUSTENNA) 78 mg/0.5 mL syrg injection Stop this dose (Patient not taking: Reported on 01/28/2022 ) ARIPiprazole (ABILIFY) 5 mg tablet TAKE ONE TABLET BY MOUTH EVERY DAY BREO ELLIPTA 100-25 mcg/dose inhaler INHALE ONE PUFF BY MOUTH EVERY DAY lamoTRIgine (LAMICTAL) 25 mg tablet Take 2 tablets by mouth once daily. lisinopril (ZESTRIL, PRINIVIL) 20 mg tablet Take 1 tablet by mouth once daily. amLODIPine (NORVASC) 2.5 mg tablet Take 1 tablet by mouth once daily. fluticasone (FLONASE) 50 mcg/actuation nasal spray USE 2 SPRAYS IN EACH NOSTRIL ONCE A DAY NEEDED amLODIPine (NORVASC) 2.5 mg tablet TAKE ONE TABLET BY MOUTH EVERY DAY (Patient not taking: Reported on 01/28/2022) fluticasone (FLONASE) 50 mcg/actuation nasal spray USE 2 SPRAYS IN EACH NOSTRIL ONCE A DAY NEEDED (Patient not taking: Reported on 01/28/2022) calcium carbonate/vitamin D3 (CALCIUM + D ORAL) Take by mouth once daily. cholecalciferol, vitamin D3, (VITAMIN D3 ORAL) Take 1 tablet by mouth once daily. loratadine (CLARITIN ORAL) Take 1 tablet by mouth once daily. therapeutic multivitamin w/ iron (THERAGRAN-M) 9 mg iron-400 mcg tablet Take 1 tablet by mouth once daily. Current Facility-Administered Medications on File Prior to Visit Medication glycopyrrolate 0.2 mg injection (ROBINUL) ondansetron (PF) 4 mg injection (ZOFRAN) Medication side effects: None, possible parkinsonism disorder Delusions: None Hallucinations: none Past family; and social history reviewed. VITAL SIGNS: There were no vitals taken for this visit. LAB DATA: Reviewed and discussed. No flowsheet data found. AIMS TESTING Negative MENTAL STATUS EXAMINATION: Appearance: appears stated age, ,Female, well developed, well nourished, normal clothing, grooming is Within Normal Limits, she has lost weight Psychomotor Activity: No abnormal movements, she does have slight hand coordination problems with tremors, After a few steps her gait become shorter, she is not picking up her feet, and clearly her upper body is moving faster that her legs. Behavior: Cooperative, Good eye contact, she had social smile today Speech: spontaneous , Normal rate, Normal volume, Clear, Mood: Anxious and Euthymic Affect: appropriate to content Thought Process: logical she is slightly slow processing Thought Content: No suicidal ideation, intent or plan., No homicidal ideation, intent or plan., Logical Cognition: Orientation: Person, Place, Time and Situation Attention: Intact Concentration: Intact Language: Intact naming, Intact repetition Estimated Intelligence: Average Memory: Mildly Impaired recent memory, Mildly Impaired remote memory Abstraction: Intact Insight: adequate Judgement: adequate RISK ASSESSMENT: Discussed the risk and benefit of the medication, client demonstrates understanding. Discussed importance of the chosen treatment plan. Client agrees with the discussed plans and efforts to keep within the stated plan. PDMP website checked and validated. All prescriptions have been APPROPRIATELY filled. No suspicious activity was identified. 02/15/2022 by Danny De La Cruz APRN.BEATA ASSESSMENT/PLAN: 1. Bipolar 1 disorder, depressed, moderate (HCC) - ICD9: 296.52, ICD10: F31.32 (primary diagnosis) 2. Generalized anxiety disorder - ICD9: 300.02, ICD10: F41.1 Danny De LaC ruz APRN.CNP Patient understands and agrees with the treatment plan: Yes Return in about 4 weeks (around 03/15/2022), or 03/18 phone. Psycho-Education: Total time in direct patient contact = 30 min. Greater than 50% of the time was spent in counseling and/or coordination of care. documented in this encounter [facility] 02-10-2022 Miscellaneous Notes requesting the following refill Refill(s) Requested: Pending Prescriptions Disp Refills ALBUTEROL SULFATE HFA 90 MCG/ACTUATION AEROSOL INHALER 18 g 3 Sig: INHALE TWO PUFFS BY MOUTH INTO THE LUNGS instructed EVERY 4 HOURS NEEDED FOR WHEEZING OR FOR SHORTNESS OF BREATH DENNY: Yes ALLERGIES Allergen Reactions Sulfadiazine Swelling Facial swelling Seasonal Allergies Intolerance Sulfa (Sulfonamide * Itching (home) [phone] (cell) Last Office Visit Date: 01/28/2022 Last [facility] Visit: Visit date not found Future Appointment: Visit date not found The patients preferred pharmacy has been captured for this encounter? yes Request is for script(s) to be escript to pharmacy. Adrianne Mckee LPN documented in this encounter [facility] 02-09-2022 Miscellaneous Notes Patient called and left voicemail giving verbal permission for Danny De La Cruz to speak with Adenike at [facility] Marija Daniels documented in this encounter [facility] 02-08-2022 Miscellaneous Notes Noted. Thanks Danny Laura MD Rivet Sorter Sanam calvin , called regarding patient's multiple falls. Visited patient at home, home is clean and uncluttered. Discussed 3 options of assisted living with patient, agrees it would be best for patient to go to assisted living to be more closely monitor with medications. documented in this encounter [facility] 02-07-2022 Miscellaneous Notes Scheduled 02/15/22 Pharmacy faxed requesting the following refill: Refill(s) Requested: Pending Prescriptions Disp Refills CLONAZEPAM 0.5 MG TABLET 30 tablet 1 Sig: TAKE ONE-HALF TABLET BY MOUTH EVERY DAY NEEDED FOR SEVERE ANXIETY KHADRA Class: C-IV DENNY: Yes ALLERGIES Allergen Reactions Sulfadiazine Swelling Facial swelling Seasonal Allergies Intolerance Sulfa (Sulfonamide * Itching (home) [phone] (cell) Last Office Visit Date: 07/15/2021 Last [facility] Visit: Visit date not found Future Appointment: Visit date not found The patients preferred pharmacy has been captured for this encounter? yes Request is for script(s) to be escript to pharmacy. 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 Danny Laura MD [facility] Geriatric[facility]. [place] [phone] Visit Date: January 28, 2022 Name: Ms.Carol Mauro Barnes Date of : 1950 MRN/E #: [id number] Chief Complaint: Patient presents with: Follow Up: Muliple falls Subjective HPI Ms. Pily Barnes is a 71 year old lady here for follow up visit. She is here alone. Falls- Had 5 on 01/09/2022. Then another fall on 01/11/2022, 01/13/2022. Fell three times on 01/27/2022. Fell once today (01/28/2022). Hit her head today and yesterday when she fell. Endorses fatigue, weakness, positional dizziness, and feels "discombobulated". Lives at home alone. Uses her life alert when she falls because she is too weak to get up on her own. Denies neck pain, headache, nausea, vomiting, bruising, changes with vision, recent illness or infection, and any sick contacts. Denies any acute changes that started the falls to occur. Patient states she feels safe at home but is getting scared about the falls. Does not think she needs someone to help all of the time. States even though she needs help she can still do things on her own most of the time. She does not want to live in a facility and does not want someone to be in her home all of the time to help her. She wants to know why she is falling and wants to know how to prevent them from happening. Asked the patient what she could do to prevent falling and states she could be more careful getting up from her couch or the bed. Typical day- Reads and watches TV. States she exercises but is unable to state what exercises she does. States she uses her Rolator at home with ambulation. Functional Evaluation: B-ADLs: (I=independent,A=assistance,D=depe ndent) ?Bathing: A Other: 3 times weekly, Dressing: I, Toileting: I, Transferring:A Other: will do it independency when she is home alone although she is unsteady, Continence: I, Feeding: I, (F[place] Index): 4 I-ADLs: Ability to use phone: I, Shopping: D, Cooking: D, Housekeeping: D, Laundry: D, Transportation: D, Medications: I, Handle Finances: A. ([place] scale): 2 Review of Systems Constitutional: Positive for malaise/fatigue. Negative for chills, fever and weight loss. HENT: Negative for hearing loss. Eyes: Negative for blurred vision. Respiratory: Negative for cough and shortness of breath. Cardiovascular: Negative for chest pain, palpitations and leg swelling. Gastrointestinal: Negative for abdominal pain, blood in stool, constipation, diarrhea, melena, nausea and vomiting. Genitourinary: Negative for dysuria, frequency, hematuria and urgency. Has been more incontinent than usual. Urine is either clear or yellow. Denies malodor. Musculoskeletal: Positive for falls. Negative for back pain, joint pain, myalgias and neck pain. Neurological: Positive for dizziness and weakness. Negative for speech change and headaches. Psychiatric/Behavioral: Positive for depression. Negative for memory loss. The patient is nervous/anxious. The patient does not have insomnia. ALLERGIES Allergen Reactions Sulfadiazine Swelling Facial swelling Seasonal Allergies Intolerance Sulfa (Sulfonamide * Itching PAST MEDICAL HISTORY Diagnosis Date Asthma Balance problem uses a walker Bipolar 1 disorder (HCC) Depression Hypertension Mitral valve disorder TATI (obstructive sleep apnea) 08/06/2019 undiagnosed Substernal goiter PAST SURGICAL HISTORY Procedure Laterality Date HYSTERECTOMY HX POST-CATARACT LASER SURGERY 09/2020 THYROIDECTOMY TOTAL/COMPLETE Left 12/16/2020 Dr. Soria Social History Tobacco Use Smoking status: Never Smoker Smokeless tobacco: Never Used Vaping Use Vaping Use: Never used Substance Use Topics Alcohol use: No Drug use: No FAMILY HISTORY Problem Relation Age of Onset Psychiatry Mother other (parkinson disease) Mother Uterine Cancer Mother Ischemic Heart Disease Father Thyroid Sister Current Outpatient Medications Medication Sig buPROPion XL (WELLBUTRIN XL) 300 mg 24 hr tablet TAKE ONE TABLET BY MOUTH EVERY DAY FLUoxetine (PROZAC) 20 mg capsule TAKE THREE CAPSULES BY MOUTH EVERY DAY paliperidone palmitate (INVEGA SUSTENNA) 39 mg/0.25 mL syrg injection 1 injection every 4 weeks ARIPiprazole (ABILIFY) 5 mg tablet TAKE ONE TABLET BY MOUTH EVERY DAY clonazePAM (KLONOPIN) 0.5 mg tablet TAKE ONE-HALF TABLET BY MOUTH EVERY DAY NEEDED for severe anxiety BREO ELLIPTA 100-25 mcg/dose inhaler INHALE ONE PUFF BY MOUTH EVERY DAY lamoTRIgine (LAMICTAL) 25 mg tablet Take 2 tablets by mouth once daily. albuterol HFA (PROAIR HFA) 90 mcg/actuation inhaler Inhale 2 Puffs as instructed every 4 hours as needed for wheezing/shortness of breath. lisinopril (ZESTRIL, PRINIVIL) 20 mg tablet Take 1 tablet by mouth once daily. amLODIPine (NORVASC) 2.5 mg tablet Take 1 tablet by mouth once daily. fluticasone (FLONASE) 50 mcg/actuation nasal spray USE 2 SPRAYS IN EACH NOSTRIL ONCE A DAY NEEDED calcium carbonate/vitamin D3 (CALCIUM + D ORAL) Take by mouth once daily. cholecalciferol, vitamin D3, (VITAMIN D3 ORAL) Take 1 tablet by mouth once daily. loratadine (CLARITIN ORAL) Take 1 tablet by mouth once daily. therapeutic multivitamin w/ iron (THERAGRAN-M) 9 mg iron-400 mcg tablet Take 1 tablet by mouth once daily. paliperidone palmitate (INVEGA SUSTENNA) 78 mg/0.5 mL syrg injection Stop this dose (Patient not taking: Reported on 01/28/2022 ) amLODIPine (NORVASC) 2.5 mg tablet TAKE ONE TABLET BY MOUTH EVERY DAY (Patient not taking: Reported on 01/28/2022) fluticasone (FLONASE) 50 mcg/actuation nasal spray USE 2 SPRAYS IN EACH NOSTRIL ONCE A DAY NEEDED (Patient not taking: Reported on 01/28/2022) No current facility-administered medications for this visit. Facility-Administered Medications Ordered in Other Visits Medication Dose Route Frequency glycopyrrolate 0.2 mg injection (ROBINUL) 0.2 mg INTRAVENOUS (PACU) PRN ondansetron (PF) 4 mg injection (ZOFRAN) 4 mg INTRAVENOUS (PACU) PRN I have confirmed and edited as necessary, the chief complaint, medications, past medical, family and social histories. Objective BP 121/86 Pulse 78 Temp (Src) 98.6 (Temporal) Resp 19 Wt 150 lb 6.4 oz (68.2kg) SpO2 94% Physical Exam HENT: Head: Normocephalic and atraumatic. Nose: Nose normal. Mouth/Throat: Mouth: Mucous membranes are moist. Pharynx: Oropharynx is clear. Eyes: Pupils: Pupils are equal, round, and reactive to light. Neck: Comments: No pain when pressure is applied to top of the head. Cardiovascular: Rate and Rhythm: Normal rate and regular rhythm. Pulses: Normal pulses. Heart sounds: Murmur heard. Pulmonary: Effort: Pulmonary effort is normal. Breath sounds: Normal breath sounds. No wheezing, rhonchi or rales. Abdominal: General: Abdomen is flat. Bowel sounds are normal. Palpations: Abdomen is soft. Tenderness: There is no abdominal tenderness. Musculoskeletal: General: Normal range of motion. Cervical back: Normal range of motion and neck supple. No edema, rigidity or tenderness. No pain with movement. Back: Right lower leg: No edema. Left lower leg: No edema. Skin: General: Skin is warm and dry. Findings: No bruising. Neurological: Mental Status: She is alert and oriented to person, place, and time. Motor: Weakness present. No tremor. Comments: In a wheelchair 2021, [place] Psychiatric: Mood and Affect: Mood normal. Behavior: Behavior normal. Thought Content: Thought content normal. Labs and Imaging: reviewed recent Plan ASSESSMENT/PLAN: 1. Falls frequently - ICD9: V15.88, ICD10: R29.6 - Discussed about assisted living or having more help come to the home. Patient agreed to a follow-up phone call to talk about assistance for the future to help prevent fall and further complications. Patient was educated that no other changes can be made to her medications as she needs them all. Return in about 2 weeks (around 02/11/2022) for Follow up - telephone encounter. Total time in direct patient contact = 40 min. Greater than 50% of the time was spent in counseling and/or coordination of care. Danny Laura MD Discussed the above with the patient using shared decision making. The patient is in agreement with the diagnostic and treatment plans. This note was partially generated using [employer] voice recognition system, and there may be some incorrect words, spellings, and punctuation that were not noted in checking the note before saving. documented in this encounter [facility] 01-24-2022 Miscellaneous Notes Pharmacy faxed requesting the following refill: Refill(s) Requested: Pending Prescriptions Disp Refills BUPROPION XL 300 MG 24 HR TAB 30 tablet 2 Sig: TAKE ONE TABLET BY MOUTH EVERY DAY DENNY: Yes ALLERGIES Allergen Reactions Sulfadiazine Swelling Facial swelling Seasonal Allergies Intolerance Sulfa (Sulfonamide * Itching (home) [phone] (cell) Last Office Visit Date: 07/15/2021 Last [facility] Visit: Visit date not found Future Appointment: Visit date not found The patients preferred pharmacy has been captured for this encounter? yes Request is for script(s) to be escript to pharmacy. 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) Bipolar 1 disorder (HCC) Bipolar 1 disorder, depressed, severe (HCC) Generalized anxiety disorder Bipolar 1 disorder, depressed, moderate (HCC) Marija Daniels January 24, 2022 8:24 AM documented in this encounter [facility] 01-17-2022 Miscellaneous Notes Dose changed Pharmacy faxed requesting the following refill: Refill(s) Requested: Pending Prescriptions Disp Refills INVEGA SUSTENNA 78 MG/0.5 ML INTRAMUSCULAR SYRINGE 0.5 mL 2 Sig: INJECT 78mg IN 0.5 ML intramuscularly every 4 WEEKS DENNY: No ALLERGIES Allergen Reactions Sulfadiazine Swelling Facial swelling Seasonal Allergies Intolerance Sulfa (Sulfonamide * Itching (home) [phone] (cell) Last Office Visit Date: 07/15/2021 Last [facility] [place] [facility] Visit: Visit date not found Future Appointment: Visit date not found The patients preferred pharmacy has been captured for this encounter? yes Request is for script(s) to be escript to pharmacy. 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) Bipolar 1 disorder (HCC) Bipolar 1 disorder, depressed, severe (HCC) Generalized anxiety disorder Bipolar 1 disorder, depressed, moderate (HCC) Marija Daniels January 17, 2022 9:33 AM documented in this encounter [facility] 01-14-2022 Miscellaneous Notes Scheduled 02/15/22 Marija Daniels Pharmacy faxed requesting the following refill: Refill(s) Requested: Pending Prescriptions Disp Refills INVEGA SUSTENNA 78 MG/0.5 ML INTRAMUSCULAR SYRINGE 0.5 mL 2 Sig: INJECT 78mg IN 0.5 ML intramuscularly every 4 WEEKS DENNY: No ALLERGIES Allergen Reactions Sulfadiazine Swelling Facial swelling Seasonal Allergies Intolerance Sulfa (Sulfonamide * Itching (home) [phone] (cell) Last Office Visit Date: 07/15/2021 Last [facility] Visit: Visit date not found Future Appointment: Visit date not found The patients preferred pharmacy has been captured for this encounter? yes Request is for script(s) to be escript to pharmacy. 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) Bipolar 1 disorder (HCC) Bipolar 1 disorder, depressed, severe (HCC) Generalized anxiety disorder Bipolar 1 disorder, depressed, moderate (HCC) Marija Daniels January 14, 2022 8:32 AM documented in this encounter [facility] 01-10-2022 Miscellaneous Notes Scheduled on 02/15/22 Marija Daniels Pharmacy faxed requesting the following refill: Refill(s) Requested: Pending Prescriptions Disp Refills FLUOXETINE 20 MG CAPSULE 90 capsule 2 Sig: TAKE THREE CAPSULES BY MOUTH EVERY DAY DENNY: Yes ALLERGIES Allergen Reactions Sulfadiazine Swelling Facial swelling Seasonal Allergies Intolerance Sulfa (Sulfonamide * Itching (home) [phone] (cell) Last Office Visit Date: 07/15/2021 Last [facility] Visit: Visit date not found Future Appointment: Visit date not found The patients preferred pharmacy has been captured for this encounter? yes Request is for script(s) to be escript to pharmacy. 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 This visit is being conducted using HIPPA compliant telecommunication system permitting interactive audio and video Proper identity has been estbablished and consent to treat is confirmed. Phone, CHIEF COMPLAINT: "I have fallen 4 times in the last month" INTERIM HISTORY: She shares she has had times of falling because she was walking too fast and tripped. She was not using her walker. Another time, she had done her exercises, when she was trying to unlocked she lost her balance and fell. She has not hurt herself in the falls. She has life alert, they recognize her. She has been eating ok and drinking well. Review of Systems Musculoskeletal: Positive for falls and myalgias. Psychiatric/Behavioral: The patient is nervous/anxious. She had Easter with her son. Her son helped her prepare [employer] baskets She thinks she is sleeping too much, she sleeps at night and also in the daytime. She still likes to read she goes to the [employer]. She thinks her mood has been pretty good. Substance Use History: no history of use Review Labs/Diagnostics: reviewed labs and discussed Medication Review: She is still thinking and wondering if her medicine is too much. RATING SCALES: PHQ-9 didn't fill out KYLEE-7 didn't fill out Depression Screening: PHQ-9 All Questions 04/30/2021 07/15/2021 Little interest or pleasure in doing things - 1 Feeling down, depressed, or hopeless - 1 Trouble falling or staying asleep, or sleeping too much - 0 Feeling tired or having little energy - 0 Poor appetite or overeating - 0 Feeling bad about yourself - or that you are a failure or have let yourself or your family down - 1 Trouble concentrating on things, such as reading the newspaper or watching television - 0 Moving or speaking so slowly that other people could have noticed. Or the opposite - being so fidgety or restless that you have been moving around a lot more than usual - 0 Thoughts that you would be better off , or of hurting yourself in some way - 1 PHQ-9 Score 10 4 (0-4) Minimal Depression (5-9) Mild Depression (10-14) Moderate Depression (15-19) Moderately severe Depression (20-27) Severe Depression KYLEE-7 Screening: KYLEE-7 All Questions 01/06/2020 07/15/2021 Nervous, anxious or on edge 1 1 Not being able to stop or control worrying 1 1 Worrying too much 1 1 Trouble relaxing 0 1 Restless 0 0 Annoyed or irritable 1 0 Afraid something awful might happen 0 0 KYLEE-7 Score 4 4 (0-5) mild anxiety (6-10) moderate anxiety (11-15) Moderately severe anxiety (16-21) Severe anxiety [place] SUICIDE SEVERITY RATING SCALE 1.) Wish to be : Have you wished you were or wished you could go to sleep and not wake up? YES 2.) Suicidal Thoughts: Have you actually had any thoughts of killing yourself? YES 3.) Suicidal Thoughts with Method (without Specific Plan or Intent to Act): Have you been thinking about how you might kill yourself? NO 4.) Suicidal Intent (without Specific Plan): Have you had these thoughts and had some intention of acting on them? NO 5) Suicide Intent with Specific Plan: Have you started to work out or worked out the details of how to kill yourself? Do you intend to carry out this plan? NO 6.) Suicide Behavior Question: Have you ever done anything, started to do anything, or prepared to do anything to end your life?NO RISK LEVEL RISK/PROTECTIVE FACTOR SUICIDALITY POSSIBLE INTERVENTIONS High Psychiatric disorders with severe symptoms, or acute precipitating event; protective factors not relevant Potentially lethal suicide attempt or persistent ideation with strong intent or suicide rehearsal Admission generally indicated unless a significant change reduces risk. Suicide precautions Moderate Multiple risk factors, few protective factors Suicidal ideation with plan, but no intent or behavior Admission may be necessary depending on risk factors. Develop crisis plan. Give emergency/crisis numbers Low Modifiable risk factors, strong protective factors Thoughts of , no plan, intent or behavior Outpatient referral, symptom reduction. Give emergency/crisis numbers Risk level: low no thoughts of suicide. These have been gone for 4 months. She used to lay in bed in the mornings having fleeting thoughts of killing herself. Her last time of acting on these thoughts was after having ECT therapy in 2019. Current Outpatient Medications on File Prior to Visit Medication Sig ARIPiprazole (ABILIFY) 5 mg tablet TAKE ONE TABLET BY MOUTH EVERY DAY clonazePAM (KLONOPIN) 0.5 mg tablet TAKE ONE-HALF TABLET BY MOUTH EVERY DAY NEEDED for severe anxiety BREO ELLIPTA 100-25 mcg/dose inhaler INHALE ONE PUFF BY MOUTH EVERY DAY lamoTRIgine (LAMICTAL) 25 mg tablet Take 2 tablets by mouth once daily. albuterol HFA (PROAIR HFA) 90 mcg/actuation inhaler Inhale 2 Puffs as instructed every 4 hours as needed for wheezing/shortness of breath. paliperidone palmitate (INVEGA SUSTENNA) 78 mg/0.5 mL syrg injection INJECT 78 MG IN 0.5 mls every FOUR WEEKS lisinopril (ZESTRIL, PRINIVIL) 20 mg tablet Take 1 tablet by mouth once daily. amLODIPine (NORVASC) 2.5 mg tablet Take 1 tablet by mouth once daily. fluticasone (FLONASE) 50 mcg/actuation nasal spray USE 2 SPRAYS IN EACH NOSTRIL ONCE A DAY NEEDED buPROPion XL (WELLBUTRIN XL) 300 mg 24 hr tablet TAKE ONE TABLET BY MOUTH EVERY DAY amLODIPine (NORVASC) 2.5 mg tablet TAKE ONE TABLET BY MOUTH EVERY DAY fluticasone (FLONASE) 50 mcg/actuation nasal spray USE 2 SPRAYS IN EACH NOSTRIL ONCE A DAY NEEDED FLUoxetine (PROZAC) 20 mg capsule TAKE THREE CAPSULES BY MOUTH EVERY DAY calcium carbonate/vitamin D3 (CALCIUM + D ORAL) Take by mouth once daily. cholecalciferol, vitamin D3, (VITAMIN D3 ORAL) Take 1 tablet by mouth once daily. loratadine (CLARITIN ORAL) Take 1 tablet by mouth once daily. therapeutic multivitamin w/ iron (THERAGRAN-M) 9 mg iron-400 mcg tablet Take 1 tablet by mouth once daily. Current Facility-Administered Medications on File Prior to Visit Medication glycopyrrolate 0.2 mg injection (ROBINUL) ondansetron (PF) 4 mg injection (ZOFRAN) Medication side effects: None, possible motor dysfunction and sedation related to the Invega. Delusions: None Hallucinations: none Past family; and social history reviewed. VITAL SIGNS: There were no vitals taken for this visit. LAB DATA: Reviewed and discussed. No flowsheet data found. AIMS TESTING NA MENTAL STATUS EXAMINATION: Appearance: unable to visualize Psychomotor Activity: Unable to visualize Behavior: Cooperative, happy on the phone Speech: spontaneous , Normal rate, Normal volume, Clear, Mood: Euthymic Affect: appropriate to content Thought Process: logical Thought Content: No suicidal ideation, intent or plan., No homicidal ideation, intent or plan., Logical, no obsessions about bathing Cognition: Orientation: Person, Place, Time and Situation Attention: Intact Concentration: Intact Language: Intact naming, Intact repetition Estimated Intelligence: Good Memory: Intact recent memory, Intact remote memory Abstraction: Intact Insight: good Judgement: good RISK ASSESSMENT: Discussed the risk and benefit of the medication, client demonstrates understanding. Discussed importance of the chosen treatment plan. Client agrees with the discussed plans and efforts to keep within the stated plan. PDMP website checked and validated. All prescriptions have been APPROPRIATELY filled. No suspicious activity was identified. 01/06/2022 by Danny De La Cruz APRN.BEATA ASSESSMENT/PLAN: 1. 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 Generalized anxiety disorder - ICD9: 300.02, ICD10: F41.1 Danny De La Cruz APRN.HEAD USHER Reduce Invega to 39 mg monthly injection CW Abilify 5 mg daily Clonazepam 0.5 mg at bedtime Lamictal 50mg daily Bupropioin XL 300mg daily Fluoxetine 20 mg 3 capsules daily Patient understands and agrees with the treatment plan: Yes Return in about 6 weeks (around 02/17/2022), or 02/15 11:30 in office. Psycho-Education: Total time in direct patient contact = 30 min. Greater than 50% of the time was spent in counseling and/or coordination of care. documented in this encounter [facility] 01-03-2022 Miscellaneous Notes Patient is scheduled for 01/06/22 Marija Daniels Pharmacy faxed requesting the following refill: Refill(s) Requested: Pending Prescriptions Disp Refills ARIPIPRAZOLE 5 MG TABLET 30 tablet 2 Sig: TAKE ONE TABLET BY MOUTH EVERY DAY DENNY: Yes ALLERGIES Allergen Reactions Sulfadiazine Swelling Facial swelling Seasonal Allergies Intolerance Sulfa (Sulfonamide * Itching (home) [phone] (cell) Last Office Visit Date: 07/15/2021 Last [facility] Visit: Visit date not found Future Appointment: Visit date not found The patients preferred pharmacy has been captured for this encounter? yes Request is for script(s) to be escript to pharmacy. 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) Bipolar 1 disorder (HCC) Bipolar 1 disorder, depressed, severe (HCC) Generalized anxiety disorder Bipolar 1 disorder, depressed, moderate (HCC) Marija Daniels January 03, 2022 8:24 AM documented in this encounter [facility] 12-27-2021 Miscellaneous Notes Pharmacy faxed requesting the following refill: Refill(s) Requested: Pending Prescriptions Disp Refills CLONAZEPAM 0.5 MG TABLET 30 tablet 1 Sig: TAKE ONE-HALF TABLET BY MOUTH EVERY DAY NEEDED for severe anxiety KHADRA Class: C-IV DENNY: No ALLERGIES Allergen Reactions Sulfadiazine Swelling Facial swelling Seasonal Allergies Intolerance Sulfa (Sulfonamide * Itching (home) [phone] (cell) Last Office Visit Date: 07/15/2021 Last [facility] Visit: Visit date not found Future Appointment: Visit date not found The patients preferred pharmacy has been captured for this encounter? yes Request is for script(s) to be escript to pharmacy. 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) Bipolar 1 disorder (HCC) Bipolar 1 disorder, depressed, severe (HCC) Generalized anxiety disorder Bipolar 1 disorder, depressed, moderate (HCC) Marija Daniels December 27, 2021 8:52 AM documented in this encounter [facility] 12-09-2021 History of Present illness Narrative [facility] PROGRESS NOTE PATIENT: Pily Barnes MRD: [id number] DATE: December 09, 2021 IDENTIFYING INFORMATION: Pily is a 71 year old female with a history of Bipolar 1 disorder, suicidal ideation, general anxiety disorder. This visit is being conducted using HIPPA compliant telecommunication system permitting interactive audio and video Proper identity has been estbablished and consent to treat is confirmed. Phone CHIEF COMPLAINT: "I am doing ok" INTERIM HISTORY: She shares she has been out of her lamictal for 2 days, due to her dizziness this was decreased to 50 mg. At this visit, she thinks her mood is stable, she is not having any problems with depression or anxiety. She feels that she is doing better with her balance physical therapy came back And showed her how to get in and out of a chair up and down out of the bed and this is also helped her with not having any more problems with falls She is concerned about fatigue and she is sleeping about 11 hours a day. She recently had a thyroid ultrasound completed not sure of those results She is looking forward to going to her son's for [facility] Review of Systems Psychiatric/Behavioral: Negative for depression and memory loss. The patient is not nervous/anxious. Concerns oversleeping Substance Use History: No history of use Review Labs/Diagnostics: Reviewed her last magnesium was 1.8 no recent TSH last was in October at 2.2 Medication Review: Reviewed and discussed she has been missing her lamotrigine at a the last 2 days RATING SCALES: Depression Screening: PHQ-9 All Questions 04/30/2021 07/15/2021 Little interest or pleasure in doing things - 1 Feeling down, depressed, or hopeless - 1 Trouble falling or staying asleep, or sleeping too much - 0 Feeling tired or having little energy - 0 Poor appetite or overeating - 0 Feeling bad about yourself - or that you are a failure or have let yourself or your family down - 1 Trouble concentrating on things, such as reading the newspaper or watching television - 0 Moving or speaking so slowly that other people could have noticed. Or the opposite - being so fidgety or restless that you have been moving around a lot more than usual - 0 Thoughts that you would be better off , or of hurting yourself in some way - 1 PHQ-9 Score 10 4 (0-4) Minimal Depression (5-9) Mild Depression (10-14) Moderate Depression (15-19) Moderately severe Depression (20-27) Severe Depression KYLEE-7 Screening: KYLEE-7 All Questions 01/06/2020 07/15/2021 Nervous, anxious or on edge 1 1 Not being able to stop or control worrying 1 1 Worrying too much 1 1 Trouble relaxing 0 1 Restless 0 0 Annoyed or irritable 1 0 Afraid something awful might happen 0 0 KYLEE-7 Score 4 4 (0-5) mild anxiety (6-10) moderate anxiety (11-15) Moderately severe anxiety (16-21) Severe anxiety [place] SUICIDE SEVERITY RATING SCALE 1.) Wish to be : Have you wished you were or wished you could go to sleep and not wake up? YES 2.) Suicidal Thoughts: Have you actually had any thoughts of killing yourself? YES 3.) Suicidal Thoughts with Method (without Specific Plan or Intent to Act): Have you been thinking about how you might kill yourself? NO 4.) Suicidal Intent (without Specific Plan): Have you had these thoughts and had some intention of acting on them? YES 5) Suicide Intent with Specific Plan: Have you started to work out or worked out the details of how to kill yourself? Do you intend to carry out this plan? NO 6.) Suicide Behavior Question: Have you ever done anything, started to do anything, or prepared to do anything to end your life?YES, Over a year ago RISK LEVEL RISK/PROTECTIVE FACTOR SUICIDALITY POSSIBLE INTERVENTIONS High Psychiatric disorders with severe symptoms, or acute precipitating event; protective factors not relevant Potentially lethal suicide attempt or persistent ideation with strong intent or suicide rehearsal Admission generally indicated unless a significant change reduces risk. Suicide precautions Moderate Multiple risk factors, few protective factors Suicidal ideation with plan, but no intent or behavior Admission may be necessary depending on risk factors. Develop crisis plan. Give emergency/crisis numbers Low Modifiable risk factors, strong protective factors Thoughts of , no plan, intent or behavior Outpatient referral, symptom reduction. Give emergency/crisis numbers Risk level: Low she did start having suicidal ideation however when she noted her pills were not in the container Current Outpatient Medications on File Prior to Visit Medication Sig BREO ELLIPTA 100-25 mcg/dose inhaler INHALE ONE PUFF BY MOUTH EVERY DAY lamoTRIgine (LAMICTAL) 25 mg tablet Take 2 tablets by mouth once daily. albuterol HFA (PROAIR HFA) 90 mcg/actuation inhaler Inhale 2 Puffs as instructed every 4 hours as needed for wheezing/shortness of breath. clonazePAM (KLONOPIN) 0.5 mg tablet TAKE ONE-HALF TABLET BY MOUTH ONCE DAILY NEEDED FOR ANXIETY FOR UP TO 30 DAYS paliperidone palmitate (INVEGA SUSTENNA) 78 mg/0.5 mL syrg injection INJECT 78 MG IN 0.5 mls every FOUR WEEKS lisinopril (ZESTRIL, PRINIVIL) 20 mg tablet Take 1 tablet by mouth once daily. amLODIPine (NORVASC) 2.5 mg tablet Take 1 tablet by mouth once daily. fluticasone (FLONASE) 50 mcg/actuation nasal spray USE 2 SPRAYS IN EACH NOSTRIL ONCE A DAY NEEDED buPROPion XL (WELLBUTRIN XL) 300 mg 24 hr tablet TAKE ONE TABLET BY MOUTH EVERY DAY amLODIPine (NORVASC) 2.5 mg tablet TAKE ONE TABLET BY MOUTH EVERY DAY fluticasone (FLONASE) 50 mcg/actuation nasal spray USE 2 SPRAYS IN EACH NOSTRIL ONCE A DAY NEEDED FLUoxetine (PROZAC) 20 mg capsule TAKE THREE CAPSULES BY MOUTH EVERY DAY ARIPiprazole (ABILIFY) 5 mg tablet TAKE ONE TABLET BY MOUTH EVERY DAY calcium carbonate/vitamin D3 (CALCIUM + D ORAL) Take by mouth once daily. cholecalciferol, vitamin D3, (VITAMIN D3 ORAL) Take 1 tablet by mouth once daily. loratadine (CLARITIN ORAL) Take 1 tablet by mouth once daily. therapeutic multivitamin w/ iron (THERAGRAN-M) 9 mg iron-400 mcg tablet Take 1 tablet by mouth once daily. Current Facility-Administered Medications on File Prior to Visit Medication glycopyrrolate 0.2 mg injection (ROBINUL) ondansetron (PF) 4 mg injection (ZOFRAN) Medication side effects: None Delusions: None Hallucinations: none Past family; and social history reviewed. VITAL SIGNS: There were no vitals taken for this visit. LAB DATA: Reviewed and discussed. No flowsheet data found. AIMS TESTING unable to assess MENTAL STATUS EXAMINATION: Appearance: Unable to assess today's visit was by phone Psychomotor Activity: Unable to assess Behavior: Cooperative, with undertones of disengagement Speech: She is having shorter utterances, tone is normal, volume is normal, monotone Mood: Dysthymic Affect: Constricted Thought Process: logical Thought Content: Thoughts of suicide, no intent or plan., No homicidal ideation, intent or plan., Obsessions: She has obsessions about her medications and her mental health Cognition: Orientation: Person, Place, Time and Situation Attention: Intact Concentration: Impaired Language: Intact naming, Intact repetition Estimated Intelligence: Good Memory: Intact recent memory, Intact remote memory Abstraction: Intact Insight: good Judgement: good RISK ASSESSMENT: Discussed the risk and benefit of the medication, client demonstrates understanding. Discussed importance of the chosen treatment plan. Client agrees with the discussed plans and efforts to keep within the stated plan. PDMP website checked and validated. All prescriptions have been APPROPRIATELY filled. No suspicious activity was identified. 12/09/2021 by Danny De La Cruz APRN.BEATA ASSESSMENT/PLAN: 1. Bipolar 1 disorder (HCC) - ICD9: 296.7, ICD10: F31.9 (primary diagnosis) 2. Generalized anxiety disorder - ICD9: 300.02, ICD10: F41.1 Invega Sustenna 78 mg injection monthly Abilify 5 mg daily Fluoxetine 60 mg daily Bupropion XL 300 mg daily Lamotrigine 50 mg daily Clonazepam 0.25 mg at bedtime She has a follow-up on her thyroid ultrasound Danny De La Cruz APRN.BEATA Patient understands and agrees with the treatment plan: Yes Return in about 4 weeks (around 01/06/2022), or 01/06 2:30. Psycho-Education: Total time in direct patient contact = 30 min. Greater than 50% of the time was spent in counseling and/or coordination of care. documented in this encounter [facility] 12-02-2021 Miscellaneous Notes Pharmacy faxed requesting the following refill Refill(s) Requested: Pending Prescriptions Disp Refills BREO ELLIPTA 100 MCG-25 MCG/DOSE POWDER FOR INHALATION 0 Sig: INHALE ONE PUFF BY MOUTH EVERY DAY DENNY: Yes ALLERGIES Allergen Reactions Sulfadiazine Swelling Facial swelling Seasonal Allergies Intolerance Sulfa (Sulfonamide * Itching (home) [phone] (cell) Last Office Visit Date: 04/30/2021 Last [facility] [facility] Visit: Visit date not found Future Appointment: Visit date not found The patients preferred pharmacy has been captured for this encounter? yes Request is for script(s) to be escript to pharmacy. Regi Pearl MA documented in this encounter [facility] 11-30-2021 Miscellaneous Notes Pharmacy notified Regi Pearl MA November 30, 2021 11:46 AM Thanks for the note and please thank the pharmacy for seeking clarification. I failed to delete the previously entered text in the prescription when I renewed it. I have updated the prescription to reflect the following: Lamotrigine (Lamictal) 25 mg tablets -- 2 tablets once daily. Please let pharmacy know. Thank you. Office received a fax from pt's preferred pharmacy requesting clarification on the Lamotrigine 25 mg tablet. Should pt be taking 2 tablets once daily or three tablets once daily? Please advise Regi Pearl MA November 29, 2021 2:57 PM documented in this encounter [facility] 11-29-2021 Miscellaneous Notes Called [facility] and per Dr Ramirez no need for further testing or to keep specimen. Shelby Guerrero.solution sales senior executive No need to keep the specimen or run additional Afirma testing. Most recent thyroid ultrasound revealed that the nodule is stable. Called [facility] and informed them to keep specimen until Dr Ramirez speaks with radiology to confirm if this is the same nodule or the other one on the R side. Interventional Radiology (Iesha ext [phone]) Shelby Guerrero.solution sales senior executive There are 2 nodules on the right side, the one which was biopsied recently should be different but will double check with radiology. No need to repeat the molecular test at this point until further evaluation. Called [facility] and they state Mid Right was previously tested and the size has actually decreased since last imaging and previous results were benign. They wanted us to double check again with the provider for retest. Shelby Guerrero.solution sales senior executive Yes please if possible Lab is calling back again. Please advise Shae Figueroa MA November 22, 2021 2:19 PM The Lab called ([phone]). The Thyroid Biopsy sample that was sent was done on the same nodule as the one in Jul. The results will likely be the same as the last results. Do you still want the sample tested? If so it will be no problem. Please advise Shae Figueroa MA November 17, 2021 2:39 PM documented in this encounter [facility] 11-23-2021 Miscellaneous Notes Radiology Service Progress Note PATIENT NAME: Pily Barnes DATE OF SERVICE: November 23, 2021 TIME: 10:38 AM PATIENT IDENTITY VERIFICATION COMPLETED USING TWO (2) IDENTIFIERS: Name and Date of confirmed by patient verbally. FALL SCREENING: Has the patient had 2 falls in the last year or 1 fall with injury or currently using an Ambulatory Assistive Device (Walker, Cane, Wheelchair, Crutches, etc.)? No PATIENT GENDER DATA: Female. status: : No status: NO. PATIENT RELEVANT IMPLANT DATA REVIEWED: Not Applicable RADIOLOGY DEPARTMENT: Ultrasound PERIPHERAL IV DATA: Not applicable SIGNED BY: RT Ricardo(Tio) November 23, 2021 10:38 AM documented in this encounter [facility] 11-22-2021 Nurse Note Patient here for ER follow-up Date of ER visit: 11/15/2021 Chief Complaint: Falls HPI: This is a 71-year-old female presenting due to fall, she reports that she fell today as she tripped. She states she had her feet in a weird position with letter to fall. She fell and hit her head on the carpet. No LOC. No blood thinners. She denies any other acute injury from the fall. She says this is the third time she is fallen this week but each time was mechanical in nature. She never passed out. She does feel dizzy now. She said one time when she fell she bent forward and felt dizzy. But she says this dizziness started after she fell and hit her head. No other acute complaint right now. No numbness or weakness. ER course: (treatments, tests, etc) Labs, Ekg, CT Brain, CT Spine Discharge Plan: Follow up with PCP Symptom Course: (improved, not improved) Stable Medication Changes: None Danny De La Cruz with psychiatry decreased Lamictal to 2 tablets daily. Patient has noticed improvement with dizziness in decreased dose. documented in this encounter [facility] 11-22-2021 History of Present illness Narrative Images from the original note were not included. [facility] [address] [place] [address] Date of Evaluation: 11/22/2021 Patient Name: Pily Barnes : 1950 Chief Complaint: Patient presents with: ED Follow-up: Falls x 5 in 1 week Nursing Intake: Nursing Notes: Jennifer Olvera LPN 11/22/2021 4:32 PM Addendum Patient here for ER follow-up Date of ER visit: 11/15/2021 Chief Complaint: Falls HPI: This is a 71-year-old female presenting due to fall, she reports that she fell today as she tripped. She states she had her feet in a weird position with letter to fall. She fell and hit her head on the carpet. No LOC. No blood thinners. She denies any other acute injury from the fall. She says this is the third time she is fallen this week but each time was mechanical in nature. She never passed out. She does feel dizzy now. She said one time when she fell she bent forward and felt dizzy. But she says this dizziness started after she fell and hit her head. No other acute complaint right now. No numbness or weakness. ER course: (treatments, tests, etc) Labs, Ekg, CT Brain, CT Spine Discharge Plan: Follow up with PCP Symptom Course: (improved, not improved) Stable Medication Changes: None Danny De La Cruz with psychiatry decreased Lamictal to 2 tablets daily. Patient has noticed improvement with dizziness in decreased dose. Subjective Ms. Barnes is a 71 year old female who presents with the following complaint(s): HPI Review of Systems PAST MEDICAL HISTORY Diagnosis Date Asthma Balance problem uses a walker Bipolar 1 disorder (HCC) Depression Hypertension Mitral valve disorder TATI (obstructive sleep apnea) 08/06/2019 undiagnosed Substernal goiter PAST SURGICAL HISTORY Procedure Laterality Date HYSTERECTOMY HX POST-CATARACT LASER SURGERY 09/2020 THYROIDECTOMY TOTAL/COMPLETE Left 12/16/2020 Dr. Soria FAMILY HISTORY Problem Relation Age of Onset Psychiatry Mother other (parkinson disease) Mother Uterine Cancer Mother Ischemic Heart Disease Father Thyroid Sister Social History Tobacco Use Smoking status: Never Smoker Smokeless tobacco: Never Used Vaping Use Vaping Use: Never used Substance Use Topics Alcohol use: No Drug use: No Current Meds lamoTRIgine (LAMICTAL) 25 mg tablet Take 2 tablets by mouth once daily. albuterol HFA (PROAIR HFA) 90 mcg/actuation inhaler Inhale 2 Puffs as instructed every 4 hours as needed for wheezing/shortness of breath. clonazePAM (KLONOPIN) 0.5 mg tablet TAKE ONE-HALF TABLET BY MOUTH ONCE DAILY NEEDED FOR ANXIETY FOR UP TO 30 DAYS paliperidone palmitate (INVEGA SUSTENNA) 78 mg/0.5 mL syrg injection INJECT 78 MG IN 0.5 mls every FOUR WEEKS lisinopril (ZESTRIL, PRINIVIL) 20 mg tablet Take 1 tablet by mouth once daily. amLODIPine (NORVASC) 2.5 mg tablet Take 1 tablet by mouth once daily. fluticasone (FLONASE) 50 mcg/actuation nasal spray USE 2 SPRAYS IN EACH NOSTRIL ONCE A DAY NEEDED buPROPion XL (WELLBUTRIN XL) 300 mg 24 hr tablet TAKE ONE TABLET BY MOUTH EVERY DAY amLODIPine (NORVASC) 2.5 mg tablet TAKE ONE TABLET BY MOUTH EVERY DAY fluticasone (FLONASE) 50 mcg/actuation nasal spray USE 2 SPRAYS IN EACH NOSTRIL ONCE A DAY NEEDED FLUoxetine (PROZAC) 20 mg capsule TAKE THREE CAPSULES BY MOUTH EVERY DAY ARIPiprazole (ABILIFY) 5 mg tablet TAKE ONE TABLET BY MOUTH EVERY DAY calcium carbonate/vitamin D3 (CALCIUM + D ORAL) Take by mouth once daily. cholecalciferol, vitamin D3, (VITAMIN D3 ORAL) Take 1 tablet by mouth once daily. loratadine (CLARITIN ORAL) Take 1 tablet by mouth once daily. therapeutic multivitamin w/ iron (THERAGRAN-M) 9 mg iron-400 mcg tablet Take 1 tablet by mouth once daily. BREO ELLIPTA 100-25 mcg/dose inhaler INHALE ONE PUFF BY MOUTH EVERY DAY I have confirmed and edited as necessary the chief complaint, medications, past medical, family and social histories obtained by others. Objective BP 141/92 Pulse 74 Resp 16 Ht 5' 0" (1.52m) Wt 151 lb (68.5kg) SpO2 94% BMI 29.49 kg/(m^2). Physical Exam Vitals and nursing note reviewed. Constitutional: General: She is awake. She is not in acute distress. Appearance: Normal appearance. She is not ill-appearing, toxic-appearing or diaphoretic. HENT: Head: Normocephalic and atraumatic. Mouth/Throat: Mouth: Mucous membranes are moist. Eyes: Conjunctiva/sclera: Conjunctivae normal. Cardiovascular: Rate and Rhythm: Normal rate and regular rhythm. Pulmonary: Effort: Pulmonary effort is normal. No respiratory distress. Musculoskeletal: Cervical back: Neck supple. Skin: General: Skin is warm and dry. Neurological: General: No focal deficit present. Mental Status: She is alert and oriented to person, place, and time. Gait: Gait normal. Psychiatric: Mood and Affect: Mood normal. Behavior: Behavior normal. Behavior is cooperative. Data Reviewed: Most recent labs and imaging results. Component Latest Ref Rng & Units 11/15/2021 WBC 3.70 - 11.00 k/uL 4.85 RBC 3.90 - 5.20 m/uL 4.53 Hemoglobin 11.5 - 15.5 g/dL 14.2 Hematocrit 36.0 - 46.0 % 42.8 MCV 80.0 - 100.0 fL 94.5 MCH 26.0 - 34.0 pg 31.3 MCHC 30.5 - 36.0 g/dL 33.2 RDW-CV 11.5 - 15.0 % 13.1 Platelet Count 150 - 400 k/uL 162 MPV 9.0 - 12.7 fL 9.3 Neut% % 69.9 Abs Neut (ANC) 1.45 - 7.50 k/uL 3.39 Lymph% % 19.2 Abs Lymph 1.00 - 4.00 k/uL 0.93 (L) Gaines% % 8.7 Abs Gaines <0.87 k/uL 0.42 Eosin% % 1.4 Abs Eosin <0.46 k/uL 0.07 Baso% % 0.6 Abs Baso <0.11 k/uL 0.03 Immature Gran % % 0.2 IMMATURE GRANS (ABS) <0.10 k/uL <0.03 NRBC /100 WBC 0.0 Absolute nRBC <0.01 k/uL <0.01 DTYPE Auto Component Latest Ref Rng & Units 11/15/2021 Color yellow Light Yellow Clarity Clear Clear Glucose, Urine Negative Negative Bilirubin, Urine Negative Negative Ketones, Urine Negative Negative Specific [place], Ur 1.005 - 1.030 1.008 Hemoglobin/Blood,Ur Negative Negative pH, Urine 5.0 - 8.0 6.5 Protein, Urine Negative Negative Urobilinogen Negative Normal Nitrites Negative Negative Leukest Negative 25 Bebe/mL (A) WBC, Urine 0-5 /HPF 0-5 /HPF RBC, Urine 0-3 /HPF 0-3 /HPF Component Latest Ref Rng & Units 11/15/2021 Magnesium 1.7 - 2.3 mg/dL 1.8 Component Latest Ref Rng & Units 11/15/2021 11/15/2021 6:47 PM 7:24 PM DREW High Sensitivity <12 ng/L 11 11 Component Latest Ref Rng & Units 11/15/2021 Glucose 74 - 99 mg/dL 90 BUN 7 - 21 mg/dL 17 Creatinine 0.58 - 0.96 mg/dL 1.03 (H) Sodium 136 - 144 mmol/L 139 Potassium 3.7 - 5.1 mmol/L 3.9 Chloride 97 - 105 mmol/L 103 CO2 22 - 30 mmol/L 25 Anion Gap 9 - 18 mmol/L 11 Calcium 8.5 - 10.2 mg/dL 9.6 eGFR >=60 mL/min/1.73m 58 (L) Component Latest Ref Rng & Units 10/19/2021 TSH 0.270 - 4.200 uU/mL 2.200 CT CERVICAL SPINE/BRAIN 11.15.2021: IMPRESSION: 1. No acute intracranial abnormality. 2. No cervical spine fracture or traumatic subluxation. 3. Small left frontal subcutaneous scalp contusion. Thread Winder Automatic: PSCB Transcribe Date/Time: Nov 15 2021 8:23P Dictated by : ALBERT DEL VALLE MD This examination was interpreted and the report reviewed and electronically signed by: ALBERT DELV ALLE MD on Nov 15 2021 8:34PM EST ASSESSMENT/PLAN: 1. Frequent falls - ICD9: V15.88, ICD10: R29.6 (primary diagnosis) - PARKING FOR HANDICAPPED 2. Moderate persistent asthma without complication - ICD9: 493.90, ICD10: J45.40 - PARKING FOR HANDICAPPED 3. Stage 3 chronic kidney disease, unspecified whether stage 3a or 3b CKD (HCC) - ICD9: 585.3, ICD10: N18.30 - PARKING FOR HANDICAPPED 4. Limited mobility - ICD9: V49.89, ICD10: Z74.09 - PARKING FOR HANDICAPPED The patient was educated on the diagnosis above. They indicated understanding of the information provided and concurred with the treatment plan. Return if symptoms worsen or fail to improve. Discussed the above with the patient using shared decision making. The patient is in agreement with the diagnostic and treatment plans. Kenia Laura PA-C I spent a total of 27 minutes on the date of the service which included preparing to see the patient, [id number] patient care, completing clinical documentation, obtaining and/or reviewing separately obtained history, performing a medically appropriate examination, counseling and educating the patient/family/caregiver and communicating results to the patient/family/caregiver. documented in this encounter [facility] 11-22-2021 Instructions Kenia Laura PA-C - 11/22/2021 4:00 PM EDT Thank you for visiting the [facility]. Your health and well-being are important to us and we appreciate your trust in the care we provide. Kenia Laura PA-C [facility] As discussed, please continue with the reduced dose of your Lamictal as reviewed (50 mg or two tablets daily). Follow-up as scheduled with your other providers and with Dr. Danny Laura in three months. Continue home therapy and use your walker with all ambulation. Patient education: Preventing falls (The Basics) Am I at risk of falling? Your risk of falling increases as you grow older. That's because getting older can make it harder to walk steadily and keep your balance. Also, the effects of falls are more serious in older people. Overall, 3 to 4 out of every 10 people over the age of 65 fall each year. Up to 75 percent of people who fracture a hip never recover to the point they were before they had their fracture. If you have fallen in the past, you are at higher risk of falling again. Several things can increase your risk of a fall, including: ?Illness ?A change in the medicines you take ?An unsafe or unfamiliar setting (for example, a room with rugs or furniture that might trip you, or an area you don't know well) How can my doctor help me to avoid falling? Your doctor can talk to you about the following things: ?Past falls It is important to tell your doctor about any times you have fallen or almost fallen. He or she can then suggest ways to prevent another fall. ?Your health conditions Some health problems can put you at risk of falling. These include conditions that affect eyesight, hearing, muscle strength, or balance. ?The medicines you take Certain medicines can increase the risk of falling. These include some medicines that are used for sleeping problems, anxiety, high blood pressure, or depression. Adding new medicines, or changing doses of some medicines, can also affect your risk of falling. The more your doctor knows about your situation, the better he or she will be able to help you. For example, if you fell because you have a condition that causes pain, your doctor might suggest treatments to deal with the pain. Or if one of your medicines is making you dizzy and more likely to fall, your doctor might switch you to a different medicine. Is there anything I can do on my own? Yes. To help keep from falling, you can: ?Make your home safer To avoid falling at home, get rid of things that might make you trip or slip. This might include furniture, electrical cords, clutter, and loose rugs. Keep your home well-lit so that you can easily see where you are going. Avoid storing things in high places so you don't have to reach or climb. ?Wear sturdy shoes that fit well Wearing shoes with high heels or slippery soles, or shoes that are too loose, can lead to falls. Walking around in bare feet, or only socks, can also increase your risk of falling. ?Take vitamin D pills Taking vitamin D might lower the risk of falls in older people. This is because vitamin D helps make bones and muscles stronger. Your doctor can talk to you about whether you should take extra vitamin D, and how much. ?Stay active Exercising on a regular basis can help lower your risk of falling. It might also help prevent you from getting hurt if you do fall. It is best to do a few different activities that help with both strength and balance. There are many kinds of exercise that can be safe for older people. These include walking, swimming, and Abdulaziz Chi (a Korean martial art that involves slow, gentle movements). ?Use a cane, walker, and other safety devices If your doctor recommends that you use a cane or walker, be sure that it's the right size and you know how to use it. There are other devices that might help you avoid falling, too. These include grab bars or a sturdy seat for the shower, non-slip bath mats, and hand rails or treads for the stairs (to prevent slipping). If you worry that you could fall, there are also alarm buttons that let you call for help if you fall and can't get up. What should I do if I fall? If you fall, see your doctor right away, even if you aren't hurt. Your doctor can try to figure out what caused you to fall, and how likely you are to fall again. He or she will do an exam and talk to you about your health problems, medicines, and activities. Then he or she can suggest things you can do to avoid falling again. Many older people have a hard time recovering after a fall. Doing things to prevent falling can help you to protect your health and independence. documented in this encounter [facility] 07-27-2021 Miscellaneous Notes Patient called left message would like thyroid biopsy results. Radhika documented in this encounter [facility] 12-16-2020 History of Past i llness Narrative Problem Noted Date Resolved Date Thyroid mass 12/16/2020 02/24/2022 Trauma 11/06/2020 11/06/2020 Fall 06/08/2020 06/17/2020 SAH (subarachnoid hemorrhage) 06/07/2020 Malnutrition of mild degree 08/07/2019 12/0 05/2019 Abnormal urinalysis 08/06/2019 08/12/2019 Bipolar depression 11/20/2017 11/27/2017 Drug overdose 11/13/2017 11/27/2017 UTI (urinary tract infection) 11/13/2017 Dehydration 09/20/2017 09/29/2017 DEENA (acute kidney injury) 09/20/20172017 Depression 09/20/2017 11/27/2017 Rule-out : Bipolar disorder (HCC) 09/20/2017 10/28/2019 Hypokalemia 09/20/2017 08/12/2019 Pyuria 09/20/2017 11/21/2017 Polycythemia 09/20/2017 11/21/2017 documented as of this encounter (statuses as of 02/24/2022) [facility] History of Past illness Narrative* Problem Noted Date Resolved Date Thyroid mass 12/16/2020 02/24/2022 Trauma 11/06/2020 11/06/2020 Fall 06/08/2020 06/17/2020 SAH (subarachnoid hemorrhage) 06/07/2020 Malnutrition of mild degree 08/07/201905/2019 Abnormal urinalysis 08/06/2019 08/12/2019 Bipolar depression 11/20/2017 11/27/2017 Drug overdose 11/13/2017 11/27/2017 UTI (urinary tract infection) 11/13/2017 Dehydration 09/20/2017 09/29/2017 DEENA (acute kidney injury) 09/20/20172017 Depression 09/20/2017 11/27/2017 Rule-out : Bipolar disorder (HCC) 09/20/2017 10/28/2019 Hypokalemia 09/20/2017 08/12/2019 Pyuria 09/20/2017 11/21/2017 Polycythemia 09/20/2017 11/21/2017 documented as of this encounter (statuses as of 02/28/2022) [facility] History of Past illness Narrative* Problem Noted Date Resolved Date Thyroid mass 12/16/2020 02/24/2022 Trauma 11/06/2020 11/06/2020 Fall 06/08/2020 06/17/2020 SAH (subarachnoid hemorrhage) 06/07/2020 Malnutrition of mild degree 08/07/201905/2019 Abnormal urinalysis 08/06/2019 08/12/2019 Bipolar depression 11/20/2017 11/27/2017 Drug overdose 11/13/2017 11/27/2017 UTI (urinary tract infection) 11/13/2017 Dehydration 09/20/2017 09/29/2017 DEENA (acute kidney injury) 09/20/20172017 Depression 09/20/2017 11/27/2017 Rule-out : Bipolar disorder (HCC) 09/20/2017 10/28/2019 Hypokalemia 09/20/2017 08/12/2019 Pyuria 09/20/2017 11/21/2017 Polycythemia 09/20/2017 11/21/2017 documented as of this encounter (statuses as of 03/03/2022) [facility] History of Past illness Narrative* Problem Noted Date Resolved Date Thyroid mass 12/16/2020 02/24/2022 Trauma 11/06/2020 11/06/2020 Fall 06/08/2020 06/17/2020 SAH (subarachnoid hemorrhage) 06/07/2020 Malnutrition of mild degree 08/07/201905/2019 Abnormal urinalysis 08/06/2019 08/12/2019 Bipolar depression 11/20/2017 11/27/2017 Drug overdose 11/13/2017 11/27/2017 UTI (urinary tract infection) 11/13/2017 Dehydration 09/20/2017 09/29/2017 DEENA (acute kidney injury) 09/20/20172017 Depression 09/20/2017 11/27/2017 Rule-out : Bipolar disorder (HCC) 09/20/2017 10/28/2019 Hypokalemia 09/20/2017 08/12/2019 Pyuria 09/20/2017 11/21/2017 Polycythemia 09/20/2017 11/21/2017 documented as of this encounter (statuses as of 03/08/2022) [facility] History of Past illness Narrative* Problem Noted Date Resolved Date Thyroid mass 12/16/2020 02/24/2022 Trauma 11/06/2020 11/06/2020 Fall 06/08/2020 06/17/2020 SAH (subarachnoid hemorrhage) 06/07/2020 Malnutrition of mild degree 08/07/201905/2019 Abnormal urinalysis 08/06/2019 08/12/2019 Bipolar depression 11/20/2017 11/27/2017 Drug overdose 11/13/2017 11/27/2017 UTI (urinary tract infection) 11/13/2017 Dehydration 09/20/2017 09/29/2017 DEENA (acute kidney injury) 09/20/20172017 Depression 09/20/2017 11/27/2017 Rule-out : Bipolar disorder (HCC) 09/20/2017 10/28/2019 Hypokalemia 09/20/2017 08/12/2019 Pyuria 09/20/2017 11/21/2017 Polycythemia 09/20/2017 11/21/2017 documented as of this encounter (statuses as of 03/11/2022) [facility]04-14-2021 History of Past illness Narrative* Problem Noted Date Resolved Date Thyroid mass 12/16/2020 02/24/2022 Trauma 11/06/2020 11/06/2020 Fall 06/08/2020 06/17/2020 SAH (subarachnoid hemorrhage) 06/07/2020 Malnutrition of mild degree 08/07/201905/2019 Abnormal urinalysis 08/06/2019 08/12/2019 Bipolar depression 11/20/2017 11/27/2017 Drug overdose 11/13/2017 11/27/2017 UTI (urinary tract infection) 11/13/2017 Dehydration 09/20/2017 09/29/2017 DEENA (acute kidney injury) 09/20/20172017 Depression 09/20/2017 11/27/2017 Rule-out : Bipolar disorder (HCC) 09/20/2017 10/28/2019 Hypokalemia 09/20/2017 08/12/2019 Pyuria 09/20/2017 11/21/2017 Polycythemia 09/20/2017 11/21/2017 documented as of this encounter (statuses as of 03/11/2022) [facility]04-14[facility]2021 History of Past illness Narrative* Problem Noted Date Resolved Date Thyroid mass 12/16/2020 02/24/2022 Trauma 11/06/2020 11/06/2020 Fall 06/08/2020 06/17/2020 SAH (subarachnoid hemorrhage) 06/07/2020 Malnutrition of mild degree 08/07/201905/2019 Abnormal urinalysis 08/06/2019 08/12/2019 Bipolar depression 11/20/2017 11/27/2017 Drug overdose 11/13/2017 11/27/2017 UTI (urinary tract infection) 11/13/2017 Dehydration 09/20/2017 09/29/2017 DEENA (acute kidney injury) 09/20/20172017 Depression 09/20/2017 11/27/2017 Rule-out : Bipolar disorder (HCC) 09/20/2017 10/28/2019 Hypokalemia 09/20/2017 08/12/2019 Pyuria 09/20/2017 11/21/2017 Polycythemia 09/20/2017 11/21/2017 documented as of this encounter (statuses as of 03/17/2022) [facility]04-14[facility]2021 History of Past illness Narrative* Problem Noted Date Resolved Date Thyroid mass 12/16/2020 02/24/2022 Trauma 11/06/2020 11/06/2020 Fall 06/08/2020 06/17/2020 SAH (subarachnoid hemorrhage) 06/07/2020 Malnutrition of mild degree 08/07/201905/2019 Abnormal urinalysis 08/06/2019 08/12/2019 Bipolar depression 11/20/2017 11/27/2017 Drug overdose 11/13/2017 11/27/2017 UTI (urinary tract infection) 11/13/2017 Dehydration 09/20/2017 09/29/2017 DEENA (acute kidney injury) 09/20/20172017 Depression 09/20/2017 11/27/2017 Rule-out : Bipolar disorder (HCC) 09/20/2017 10/28/2019 Hypokalemia 09/20/2017 08/12/2019 Pyuria 09/20/2017 11/21/2017 Polycythemia 09/20/2017 11/21/2017 documented as of this encounter (statuses as of 03/18/2022) [facility]04[facility]14[facility]2021 History of Past illness Narrative* Problem Noted Date Resolved Date Thyroid mass 12/16/2020 02/24/2022 Trauma 11/06/2020 11/06/2020 Fall 06/08/2020 06/17/2020 SAH (subarachnoid hemorrhage) 06/07/2020 Malnutrition of mild degree 08/07/201905/2019 Abnormal urinalysis 08/06/2019 08/12/2019 Bipolar depression 11/20/2017 11/27/2017 Drug overdose 11/13/2017 11/27/2017 UTI (urinary tract infection) 11/13/2017 Dehydration 09/20/2017 09/29/2017 DEENA (acute kidney injury) 09/20/20172017 Depression 09/20/2017 11/27/2017 Rule-out : Bipolar disorder (HCC) 09/20/2017 10/28/2019 Hypokalemia 09/20/2017 08/12/2019 Pyuria 09/20/2017 11/21/2017 Polycythemia 09/20/2017 11/21/2017 documented as of this encounter (statuses as of 03/21/2022) [facility]04[facility]21 History of Past illness Narrative* Problem Noted Date Resolved Date Thyroid mass 12/16/2020 02/24/2022 Trauma 11/06/2020 11/06/2020 Fall 06/08/2020 06/17/2020 SAH (subarachnoid hemorrhage) 06/07/2020 Malnutrition of mild degree 08/07/201905/2019 Abnormal urinalysis 08/06/2019 08/12/2019 Bipolar depression 11/20/2017 11/27/2017 Drug overdose 11/13/2017 11/27/2017 UTI (urinary tract infection) 11/13/2017 Dehydration 09/20/2017 09/29/2017 DEENA (acute kidney injury) 09/20/20172017 Depression 09/20/2017 11/27/2017 Rule-out : Bipolar disorder (HCC) 09/20/2017 10/28/2019 Hypokalemia 09/20/2017 08/12/2019 Pyuria 09/20/2017 11/21/2017 Polycythemia 09/20/2017 11/21/2017 documented as of this encounter (statuses as of 03/28/2022) [facility]04[facility]14[facility]2021 History of Past illness Narrative* Problem Noted Date Resolved Date Thyroid mass 12/16/2020 02/24/2022 Trauma 11/06/2020 11/06/2020 Fall 06/08/2020 06/17/2020 SAH (subarachnoid hemorrhage) 06/07/2020 Malnutrition of mild degree 08/07/201905/2019 Abnormal urinalysis 08/06/2019 08/12/2019 Bipolar depression 11/20/2017 11/27/2017 Drug overdose 11/13/2017 11/27/2017 UTI (urinary tract infection) 11/13/2017 Dehydration 09/20/2017 09/29/2017 DEENA (acute kidney injury) 09/20/20172017 Depression 09/20/2017 11/27/2017 Rule-out : Bipolar disorder (HCC) 09/20/2017 10/28/2019 Hypokalemia 09/20/2017 08/12/2019 Pyuria 09/20/2017 11/21/2017 Polycythemia 09/20/2017 11/21/2017 documented as of this encounter (statuses as of 04/11/2022) [facility]04[facility]2021 History of Past illness Narrative* Problem Noted Date Resolved Date Thyroid mass 12/16/2020 02/24/2022 Trauma 11/06/2020 11/06/2020 Fall 06/08/2020 06/17/2020 SAH (subarachnoid hemorrhage) 06/07/2020 Malnutrition of mild degree 08/07/201905/2019 Abnormal urinalysis 08/06/2019 08/12/2019 Bipolar depression 11/20/2017 11/27/2017 Drug overdose 11/13/2017 11/27/2017 UTI (urinary tract infection) 11/13/2017 Dehydration 09/20/2017 09/29/2017 DEENA (acute kidney injury) 09/20/20172017 Depression 09/20/2017 11/27/2017 Rule-out : Bipolar disorder (HCC) 09/20/2017 10/28/2019 Hypokalemia 09/20/2017 08/12/2019 Pyuria 09/20/2017 11/21/2017 Polycythemia 09/20/2017 11/21/2017 documented as of this encounter (statuses as of 05/26/2022) [facility]04[facility]14[facility]2021 History of Past illness Narrative* Problem Noted Date Resolved Date Thyroid mass 12/16/2020 02/24/2022 Trauma 11/06/2020 11/06/2020 Fall 06/08/2020 06/17/2020 SAH (subarachnoid hemorrhage) 06/07/2020 Malnutrition of mild degree 08/07/201905/2019 Abnormal urinalysis 08/06/2019 08/12/2019 Bipolar depression 11/20/2017 11/27/2017 Drug overdose 11/13/2017 11/27/2017 UTI (urinary tract infection) 11/13/2017 Dehydration 09/20/2017 09/29/2017 DEENA (acute kidney injury) 09/20/20172017 Depression 09/20/2017 11/27/2017 Rule-out : Bipolar disorder (HCC) 09/20/2017 10/28/2019 Hypokalemia 09/20/2017 08/12/2019 Pyuria 09/20/2017 11/21/2017 Polycythemia 09/20/2017 11/21/2017 documented as of this encounter (statuses as of 07/11/2022) [facility]04[facility]2021 History of Past illness Narrative* Problem Noted Date Resolved Date Thyroid mass 12/16/2020 02/24/2022 Trauma 11/06/2020 11/06/2020 Fall 06/08/2020 06/17/2020 SAH (subarachnoid hemorrhage) 06/07/2020 Malnutrition of mild degree 08/07/201905/2019 Abnormal urinalysis 08/06/2019 08/12/2019 Bipolar depression 11/20/2017 11/27/2017 Drug overdose 11/13/2017 11/27/2017 UTI (urinary tract infection) 11/13/2017 Dehydration 09/20/2017 09/29/2017 DEENA (acute kidney injury) 09/20/20172017 Depression 09/20/2017 11/27/2017 Rule-out : Bipolar disorder (HCC) 09/20/2017 10/28/2019 Hypokalemia 09/20/2017 08/12/2019 Pyuria 09/20/2017 11/21/2017 Polycythemia 09/20/2017 11/21/2017 documented as of this encounter (statuses as of 09/12/2022) [facility]04[facility]2021 History of Past illness Narrative* Problem Noted Date Diagnosed Date Resolved Date Thyroid mass 12/16/2020 02/24/2022 Trauma 11/06/2020 11/06/2020 Fall 06/08/2020 06/17/2020 SAH (subarachnoid hemorrhage) 06/07/2020 06/17/2020 Malnutrition of mild degree 08/07/2019 08/12/2019 Abnormal urinalysis 08/06/2019 08/12/20 19 Bipolar depression 11/20/2017 8 Drug overdose 11/13/2017 11/27/2017 UTI (urinary tract infection) 11/13/2017 08/12/2019 Dehydration 09/20/2017 09/29/2017 DEENA (acute kidney injury) 09/20/2017 Depression 09/20/2017 11/27/2017 Rule-out : Bipolar disorder (HCC) 09/20/2017 10/28/2019 Hypokalemia 09/20/2017 08/12/2019 Pyuria 09/20/2017 11/21/2017 Polycythemia 09/20/2017 11/21/2017 documented as of this encounter (statuses as of 11/15/2023) [facility]04[facility]2021 History of Past illness Narrative* Problem Noted Date Diagnosed Date Resolved Date Thyroid mass 12/16/2020 02/24/2022 Trauma 11/06/2020 11/06/2020 Fall 06/08/2020 06/17/2020 SAH (subarachnoid hemorrhage) 06/07/2020 06/17/2020 Malnutrition of mild degree 08/07/2019 08/12/2019 Abnormal urinalysis 08/06/2019 08/12/20 19 Bipolar depression 11/20/2017 8 Drug overdose 11/13/2017 11/27/2017 UTI (urinary tract infection) 11/13/2017 08/12/2019 Dehydration 09/20/2017 09/29/2017 DEENA (acute kidney injury) 09/20/2017 Depression 09/20/2017 11/27/2017 Rule-out : Bipolar disorder (HCC) 09/20/2017 10/28/2019 Hypokalemia 09/20/2017 08/12/2019 Pyuria 09/20/2017 11/21/2017 Polycythemia 09/20/2017 11/21/2017 documented as of this encounter (statuses as of 11/16/2023) [facility]04[facility]2021 History of Past illness Narrative* Problem Noted Date Diagnosed Date Resolved Date Thyroid mass 12/16/2020 02/24/2022 Trauma 11/06/2020 11/06/2020 Fall 06/08/2020 06/17/2020 SAH (subarachnoid hemorrhage) 06/07/2020 06/17/2020 Malnutrition of mild degree 08/07/2019 08/12/2019 Abnormal urinalysis 08/06/2019 08/12/20 19 Bipolar depression 11/20/2017 8 Drug overdose 11/13/2017 11/27/2017 UTI (urinary tract infection) 11/13/2017 08/12/2019 Dehydration 09/20/2017 09/29/2017 DEENA (acute kidney injury) 09/20/2017 Depression 09/20/2017 11/27/2017 Rule-out : Bipolar disorder (HCC) 09/20/2017 10/28/2019 Hypokalemia 09/20/2017 08/12/2019 Pyuria 09/20/2017 11/21/2017 Polycythemia 09/20/2017 11/21/2017 documented as of this encounter (statuses as of 11/21/2023) [facility]03[facility]21 History of Past illness Narrative* Problem Noted Date Resolved Date Trauma 11/06/2020 11/06/2020 Fall 06/08/2020 06/17/2020 SAH (subarachnoid hemorrhage) 06/07/2020 Malnutrition of mild degree 08/07/2019 1205/2019 Abnormal urinalysis 08/06/2019 08/12/2019 Bipolar depression 11/20/2017 11/27/2017 Drug overdose 11/13/2017 11/27/2017 UTI (urinary tract infection) 11/13/2017 Dehydration 09/20/2017 09/29/2017 DEENA (acute kidney injury) 09/20/20172017 Depression 09/20/2017 11/27/2017 Rule-out : Bipolar disorder (HCC) 09/20/2017 10/28/2019 Hypokalemia 09/20/2017 08/12/2019 Pyuria 09/20/2017 11/21/2017 Polycythemia 09/20/2017 11/21/2017 documented as of this encounter (statuses as of 11/24/2021) [facility]03[facility]21 History of Past illness Narrative* Problem Noted Date Resolved Date Trauma 11/06/2020 11/06/2020 Fall 06/08/2020 06/17/2020 SAH (subarachnoid hemorrhage) 06/07/2020 Malnutrition of mild degree 08/07/201905/2019 Abnormal urinalysis 08/06/2019 08/12/2019 Bipolar depression 11/20/2017 11/27/2017 Drug overdose 11/13/2017 11/27/2017 UTI (urinary tract infection) 11/13/2017 Dehydration 09/20/2017 09/29/2017 DEENA (acute kidney injury) 09/20/20172017 Depression 09/20/2017 11/27/2017 Rule-out : Bipolar disorder (HCC) 09/20/2017 10/28/2019 Hypokalemia 09/20/2017 08/12/2019 Pyuria 09/20/2017 11/21/2017 Polycythemia 09/20/2017 11/21/2017 documented as of this encounter (statuses as of 11/29/2021) [address]05-2021 History of Past illness Narrative* Problem Noted Date Resolved Date Trauma 11/06/2020 11/06/2020 Fall 06/08/2020 06/17/2020 SAH (subarachnoid hemorrhage) 06/07/2020 Malnutrition of mild degree 08/07/201905/2019 Abnormal urinalysis 08/06/2019 08/12/2019 Bipolar depression 11/20/2017 11/27/2017 Drug overdose 11/13/2017 11/27/2017 UTI (urinary tract infection) 11/13/2017 Dehydration 09/20/2017 09/29/2017 DEENA (acute kidney injury) 09/20/20172017 Depression 09/20/2017 11/27/2017 Rule-out : Bipolar disorder (HCC) 09/20/2017 10/28/2019 Hypokalemia 09/20/2017 08/12/2019 Pyuria 09/20/2017 11/21/2017 Polycythemia 09/20/2017 11/21/2017 documented as of this encounter (statuses as of 11/30/2021) [facility]03[facility]21 History of Past illness Narrative* Problem Noted Date Resolved Date Trauma 11/06/2020 11/06/2020 Fall 06/08/2020 06/17/2020 SAH (subarachnoid hemorrhage) 06/07/2020 Malnutrition of mild degree 08/07/201905/2019 Abnormal urinalysis 08/06/2019 08/12/2019 Bipolar depression 11/20/2017 11/27/2017 Drug overdose 11/13/2017 11/27/2017 UTI (urinary tract infection) 11/13/2017 Dehydration 09/20/2017 09/29/2017 DEENA (acute kidney injury) 09/20/20172017 Depression 09/20/2017 11/27/2017 Rule-out : Bipolar disorder (HCC) 09/20/2017 10/28/2019 Hypokalemia 09/20/2017 08/12/2019 Pyuria 09/20/2017 11/21/2017 Polycythemia 09/20/2017 11/21/2017 documented as of this encounter (statuses as of 12/03/2021) [facility] History of Past illness Narrative* Problem Noted Date Resolved Date Trauma 11/06/2020 11/06/2020 Fall 06/08/2020 06/17/2020 SAH (subarachnoid hemorrhage) 06/07/2020 Malnutrition of mild degree 08/07/201905/2019 Abnormal urinalysis 08/06/2019 08/12/2019 Bipolar depression 11/20/2017 11/27/2017 Drug overdose 11/13/2017 11/27/2017 UTI (urinary tract infection) 11/13/2017 Dehydration 09/20/2017 09/29/2017 DEENA (acute kidney injury) 09/20/20172017 Depression 09/20/2017 11/27/2017 Rule-out : Bipolar disorder (HCC) 09/20/2017 10/28/2019 Hypokalemia 09/20/2017 08/12/2019 Pyuria 09/20/2017 11/21/2017 Polycythemia 09/20/2017 11/21/2017 documented as of this encounter (statuses as of 12/06/2021) [address]05-2021 History of Past illness Narrative* Problem Noted Date Resolved Date Trauma 11/06/2020 11/06/2020 Fall 06/08/2020 06/17/2020 SAH (subarachnoid hemorrhage) 06/07/2020 Malnutrition of mild degree 08/07/201905/2019 Abnormal urinalysis 08/06/2019 08/12/2019 Bipolar depression 11/20/2017 11/27/2017 Drug overdose 11/13/2017 11/27/2017 UTI (urinary tract infection) 11/13/2017 Dehydration 09/20/2017 09/29/2017 DEENA (acute kidney injury) 09/20/20172017 Depression 09/20/2017 11/27/2017 Rule-out : Bipolar disorder (HCC) 09/20/2017 10/28/2019 Hypokalemia 09/20/2017 08/12/2019 Pyuria 09/20/2017 11/21/2017 Polycythemia 09/20/2017 11/21/2017 documented as of this encounter (statuses as of 12/09/2021) [facility]21 History of Past illness Narrative* Problem Noted Date Resolved Date Trauma 11/06/2020 11/06/2020 Fall 06/08/2020 06/17/2020 SAH (subarachnoid hemorrhage) 06/07/2020 Malnutrition of mild degree 08/07/201905/2019 Abnormal urinalysis 08/06/2019 08/12/2019 Bipolar depression 11/20/2017 11/27/2017 Drug overdose 11/13/2017 11/27/2017 UTI (urinary tract infection) 11/13/2017 Dehydration 09/20/2017 09/29/2017 DEENA (acute kidney injury) 09/20/20172017 Depression 09/20/2017 11/27/2017 Rule-out : Bipolar disorder (HCC) 09/20/2017 10/28/2019 Hypokalemia 09/20/2017 08/12/2019 Pyuria 09/20/2017 11/21/2017 Polycythemia 09/20/2017 11/21/2017 documented as of this encounter (statuses as of 12/27/2021) [facility] History of Past illness Narrative* Problem Noted Date Resolved Date Trauma 11/06/2020 11/06/2020 Fall 06/08/2020 06/17/2020 SAH (subarachnoid hemorrhage) 06/07/2020 Malnutrition of mild degree 08/07/201905/2019 Abnormal urinalysis 08/06/2019 08/12/2019 Bipolar depression 11/20/2017 11/27/2017 Drug overdose 11/13/2017 11/27/2017 UTI (urinary tract infection) 11/13/2017 Dehydration 09/20/2017 09/29/2017 DEENA (acute kidney injury) 09/20/20172017 Depression 09/20/2017 11/27/2017 Rule-out : Bipolar disorder (HCC) 09/20/2017 10/28/2019 Hypokalemia 09/20/2017 08/12/2019 Pyuria 09/20/2017 11/21/2017 Polycythemia 09/20/2017 11/21/2017 documented as of this encounter (statuses as of 12/30/2021) [facility] History of Past illness Narrative* Problem Noted Date Resolved Date Trauma 11/06/2020 11/06/2020 Fall 06/08/2020 06/17/2020 SAH (subarachnoid hemorrhage) 06/07/2020 Malnutrition of mild degree 08/07/201905/2019 Abnormal urinalysis 08/06/2019 08/12/2019 Bipolar depression 11/20/2017 11/27/2017 Drug overdose 11/13/2017 11/27/2017 UTI (urinary tract infection) 11/13/2017 Dehydration 09/20/2017 09/29/2017 DEENA (acute kidney injury) 09/20/20172017 Depression 09/20/2017 11/27/2017 Rule-out : Bipolar disorder (HCC) 09/20/2017 10/28/2019 Hypokalemia 09/20/2017 08/12/2019 Pyuria 09/20/2017 11/21/2017 Polycythemia 09/20/2017 11/21/2017 documented as of this encounter (statuses as of 01/03/2022) [facility] History of Past illness Narrative* Problem Noted Date Resolved Date Trauma 11/06/2020 11/06/2020 Fall 06/08/2020 06/17/2020 SAH (subarachnoid hemorrhage) 06/07/2020 Malnutrition of mild degree 08/07/20190 05/2019 Abnormal urinalysis 08/06/2019 08/12/2019 Bipolar depression 11/20/2017 11/27/2017 Drug overdose 11/13/2017 11/27/2017 UTI (urinary tract infection) 11/13/2017 Dehydration 09/20/2017 09/29/2017 DEENA (acute kidney injury) 09/20/20172017 Depression 09/20/2017 11/27/2017 Rule-out : Bipolar disorder (HCC) 09/20/2017 10/28/2019 Hypokalemia 09/20/2017 08/12/2019 Pyuria 09/20/2017 11/21/2017 Polycythemia 09/20/2017 11/21/2017 documented as of this encounter (statuses as of 01/07/2022) [facility] History of Past illness Narrative* Problem Noted Date Resolved Date Trauma 11/06/2020 11/06/2020 Fall 06/08/2020 06/17/2020 SAH (subarachnoid hemorrhage) 06/07/2020 Malnutrition of mild degree 08/07/201905/2019 Abnormal urinalysis 08/06/2019 08/12/2019 Bipolar depression 11/20/2017 11/27/2017 Drug overdose 11/13/2017 11/27/2017 UTI (urinary tract infection) 11/13/2017 Dehydration 09/20/2017 09/29/2017 DEENA (acute kidney injury) 09/20/20172017 Depression 09/20/2017 11/27/2017 Rule-out : Bipolar disorder (HCC) 09/20/2017 10/28/2019 Hypokalemia 09/20/2017 08/12/2019 Pyuria 09/20/2017 11/21/2017 Polycythemia 09/20/2017 11/21/2017 documented as of this encounter (statuses as of 01/10/2022) [facility] History of Past illness Narrative* Problem Noted Date Resolved Date Trauma 11/06/2020 11/06/2020 Fall 06/08/2020 06/17/2020 SAH (subarachnoid hemorrhage) 06/07/2020 Malnutrition of mild degree 08/07/2019 1205/2019 Abnormal urinalysis 08/06/2019 08/12/2019 Bipolar depression 11/20/2017 11/27/2017 Drug overdose 11/13/2017 11/27/2017 UTI (urinary tract infection) 11/13/2017 Dehydration 09/20/2017 09/29/2017 DEENA (acute kidney injury) 09/20/20172017 Depression 09/20/2017 11/27/2017 Rule-out : Bipolar disorder (HCC) 09/20/2017 10/28/2019 Hypokalemia 09/20/2017 08/12/2019 Pyuria 09/20/2017 11/21/2017 Polycythemia 09/20/2017 11/21/2017 documented as of this encounter (statuses as of 01/14/2022) [facility] History of Past illness Narrative* Problem Noted Date Resolved Date Trauma 11/06/2020 11/06/2020 Fall 06/08/2020 06/17/2020 SAH (subarachnoid hemorrhage) 06/07/2020 Malnutrition of mild degree 08/07/201905/2019 Abnormal urinalysis 08/06/2019 08/12/2019 Bipolar depression 11/20/2017 11/27/2017 Drug overdose 11/13/2017 11/27/2017 UTI (urinary tract infection) 11/13/2017 Dehydration 09/20/2017 09/29/2017 DEENA (acute kidney injury) 09/20/20172017 Depression 09/20/2017 11/27/2017 Rule-out : Bipolar disorder (HCC) 09/20/2017 10/28/2019 Hypokalemia 09/20/2017 08/12/2019 Pyuria 09/20/2017 11/21/2017 Polycythemia 09/20/2017 11/21/2017 documented as of this encounter (statuses as of 01/17/2022) [facility] History of Past illness Narrative* Problem Noted Date Resolved Date Trauma 11/06/2020 11/06/2020 Fall 06/08/2020 06/17/2020 SAH (subarachnoid hemorrhage) 06/07/2020 Malnutrition of mild degree 08/07/201905/2019 Abnormal urinalysis 08/06/2019 08/12/2019 Bipolar depression 11/20/2017 11/27/2017 Drug overdose 11/13/2017 11/27/2017 UTI (urinary tract infection) 11/13/2017 Dehydration 09/20/2017 09/29/2017 DEENA (acute kidney injury) 09/20/20172017 Depression 09/20/2017 11/27/2017 Rule-out : Bipolar disorder (HCC) 09/20/2017 10/28/2019 Hypokalemia 09/20/2017 08/12/2019 Pyuria 09/20/2017 11/21/2017 Polycythemia 09/20/2017 11/21/2017 documented as of this encounter (statuses as of 01/24/2022) [facility] History of Past illness Narrative* Problem Noted Date Resolved Date Trauma 11/06/2020 11/06/2020 Fall 06/08/2020 06/17/2020 SAH (subarachnoid hemorrhage) 06/07/2020 Malnutrition of mild degree 08/07/201905/2019 Abnormal urinalysis 08/06/2019 08/12/2019 Bipolar depression 11/20/2017 11/27/2017 Drug overdose 11/13/2017 11/27/2017 UTI (urinary tract infection) 11/13/2017 Dehydration 09/20/2017 09/29/2017 DEENA (acute kidney injury) 09/20/20172017 Depression 09/20/2017 11/27/2017 Rule-out : Bipolar disorder (HCC) 09/20/2017 10/28/2019 Hypokalemia 09/20/2017 08/12/2019 Pyuria 09/20/2017 11/21/2017 Polycythemia 09/20/2017 11/21/2017 documented as of this encounter (statuses as of 01/26/2022) [facility] History of Past illness Narrative* Problem Noted Date Resolved Date Trauma 11/06/2020 11/06/2020 Fall 06/08/2020 06/17/2020 SAH (subarachnoid hemorrhage) 06/07/2020 Malnutrition of mild degree 08/07/201905/2019 Abnormal urinalysis 08/06/2019 08/12/2019 Bipolar depression 11/20/2017 11/27/2017 Drug overdose 11/13/2017 11/27/2017 UTI (urinary tract infection) 11/13/2017 Dehydration 09/20/2017 09/29/2017 DEENA (acute kidney injury) 09/20/20172017 Depression 09/20/2017 11/27/2017 Rule-out : Bipolar disorder (HCC) 09/20/2017 10/28/2019 Hypokalemia 09/20/2017 08/12/2019 Pyuria 09/20/2017 11/21/2017 Polycythemia 09/20/2017 11/21/2017 documented as of this encounter (statuses as of 01/31/2022) [facility] History of Past illness Narrative* Problem Noted Date Resolved Date Trauma 11/06/2020 11/06/2020 Fall 06/08/2020 06/17/2020 SAH (subarachnoid hemorrhage) 06/07/2020 Malnutrition of mild degree 08/07/201905/2019 Abnormal urinalysis 08/06/2019 08/12/2019 Bipolar depression 11/20/2017 11/27/2017 Drug overdose 11/13/2017 11/27/2017 UTI (urinary tract infection) 11/13/2017 Dehydration 09/20/2017 09/29/2017 DEENA (acute kidney injury) 09/20/20172017 Depression 09/20/2017 11/27/2017 Rule-out : Bipolar disorder (HCC) 09/20/2017 10/28/2019 Hypokalemia 09/20/2017 08/12/2019 Pyuria 09/20/2017 11/21/2017 Polycythemia 09/20/2017 11/21/2017 documented as of this encounter (statuses as of 02/07/2022) [facility] History of Past illness Narrative* Problem Noted Date Resolved Date Trauma 11/06/2020 11/06/2020 Fall 06/08/2020 06/17/2020 SAH (subarachnoid hemorrhage) 06/07/2020 Malnutrition of mild degree 08/07/201905/2019 Abnormal urinalysis 08/06/2019 08/12/2019 Bipolar depression 11/20/2017 11/27/2017 Drug overdose 11/13/2017 11/27/2017 UTI (urinary tract infection) 11/13/2017 Dehydration 09/20/2017 09/29/2017 DEENA (acute kidney injury) 09/20/20172017 Depression 09/20/2017 11/27/2017 Rule-out : Bipolar disorder (HCC) 09/20/2017 10/28/2019 Hypokalemia 09/20/2017 08/12/2019 Pyuria 09/20/2017 11/21/2017 Polycythemia 09/20/2017 11/21/2017 documented as of this encounter (statuses as of 02/08/2022) [facility] History of Past illness Narrative* Problem Noted Date Resolved Date Trauma 11/06/2020 11/06/2020 Fall 06/08/2020 06/17/2020 SAH (subarachnoid hemorrhage) 06/07/2020 Malnutrition of mild degree 08/07/201905/2019 Abnormal urinalysis 08/06/2019 08/12/2019 Bipolar depression 11/20/2017 11/27/2017 Drug overdose 11/13/2017 11/27/2017 UTI (urinary tract infection) 11/13/2017 Dehydration 09/20/2017 09/29/2017 DEENA (acute kidney injury) 09/20/20172017 Depression 09/20/2017 11/27/2017 Rule-out : Bipolar disorder (HCC) 09/20/2017 10/28/2019 Hypokalemia 09/20/2017 08/12/2019 Pyuria 09/20/2017 11/21/2017 Polycythemia 09/20/2017 11/21/2017 documented as of this encounter (statuses as of 02/10/2022) [facility] History of Past illness Narrative* Problem Noted Date Resolved Date Trauma 11/06/2020 11/06/2020 Fall 06/08/2020 06/17/2020 SAH (subarachnoid hemorrhage) 06/07/2020 Malnutrition of mild degree 08/07/201905/2019 Abnormal urinalysis 08/06/2019 08/12/2019 Bipolar depression 11/20/2017 11/27/2017 Drug overdose 11/13/2017 11/27/2017 UTI (urinary tract infection) 11/13/2017 Dehydration 09/20/2017 09/29/2017 DEENA (acute kidney injury) 09/20/20172017 Depression 09/20/2017 11/27/2017 Rule-out : Bipolar disorder (HCC) 09/20/2017 10/28/2019 Hypokalemia 09/20/2017 08/12/2019 Pyuria 09/20/2017 11/21/2017 Polycythemia 09/20/2017 11/21/2017 documented as of this encounter (statuses as of 02/10/2022) [facility]03-05-2021 History of Past illness Narrative* Problem Noted Date Resolved Date Trauma 11/06/2020 11/06/2020 Fall 06/08/2020 06/17/2020 SAH (subarachnoid hemorrhage) 06/07/2020 Malnutrition of mild degree 08/07/201905/2019 Abnormal urinalysis 08/06/2019 08/12/2019 Bipolar depression 11/20/2017 11/27/2017 Drug overdose 11/13/2017 11/27/2017 UTI (urinary tract infection) 11/13/2017 Dehydration 09/20/2017 09/29/2017 DEENA (acute kidney injury) 09/20/20172017 Depression 09/20/2017 11/27/2017 Rule-out : Bipolar disorder (HCC) 09/20/2017 10/28/2019 Hypokalemia 09/20/2017 08/12/2019 Pyuria 09/20/2017 11/21/2017 Polycythemia 09/20/2017 11/21/2017 documented as of this encounter (statuses as of 02/15/2022) [facility]03-05-2021 History of Past illness Narrative* Problem Noted Date Resolved Date Trauma 11/06/2020 11/06/2020 Fall 06/08/2020 06/17/2020 SAH (subarachnoid hemorrhage) 06/07/2020 Malnutrition of mild degree 08/07/201905/2019 Abnormal urinalysis 08/06/2019 08/12/2019 Bipolar depression 11/20/2017 11/27/2017 Drug overdose 11/13/2017 11/27/2017 UTI (urinary tract infection) 11/13/2017 Dehydration 09/20/2017 09/29/2017 DEENA (acute kidney injury) 09/20/20172017 Depression 09/20/2017 11/27/2017 Rule-out : Bipolar disorder (HCC) 09/20/2017 10/28/2019 Hypokalemia 09/20/2017 08/12/2019 Pyuria 09/20/2017 11/21/2017 Polycythemia 09/20/2017 11/21/2017 documented as of this encounter (statuses as of 02/16/2022) [facility] note* Diagnosis Shortness of breath [facility]* Diagnosis Frequent falls- Primary Personal history of fall Moderate persistent asthma without complication Unspecified asthma Stage 3 chronic kidney disease, unspecified whether stage 3a or 3b CKD (HCC) Limited mobility [facility]* Diagnosis Bipolar 1 disorder (HCC)- Primary Bipolar I disorder, most recent episode (or current) unspecified Generalized anxiety disorder documented in this encounter [facility] note* Diagnosis Generalized anxiety disorder [facility]* Diagnosis 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 Major depressive disorder, recurrent episode, severe, specified as with psychotic behavior Generalized anxiety disorder documented in this encounter [facility] note* Diagnosis Bipolar 1 disorder, depressed, moderate (HCC) Bipolar I disorder, most recent episode (or current) depressed, moderate documented in this encounter [facility] note* Diagnosis Falls frequently- Primary Personal history of fall documented in this encounter [facility] note* Diagnosis Generalized anxiety disorder [facility]* Diagnosis Mild intermittent asthma without complication Unspecified asthma [facility]* Diagnosis Bipolar 1 disorder, depressed, moderate (HCC)- Primary Bipolar I disorder, most recent episode (or current) depressed, moderate Generalized anxiety disorder documented [facility]* Diagnosis Multiple thyroid nodules- Primary Nontoxic multinodular goiter S/P partial thyroidectomy Other postprocedural status [facility]* Diagnosis OPENED IN ERROR- Primary To allow closing an encounter opened in error (used in SmartSet) documented in this encounter [facility] note* Diagnosis OPENED IN ERROR- Primary To allow closing an encounter opened in error (used in SmartSet) documented in this encounter [facility] note* Diagnosis Allergic rhinitis, unspecified seasonality, unspecified trigger documented in this encounter [facility] note* Diagnosis Shortness of breath [facility]* Diagnosis Bipolar 1 disorder (HCC)- Primary Bipolar I disorder, most recent episode (or current) unspecified Generalized anxiety disorder Bipolar 1 disorder, depressed, moderate (HCC) Bipolar I disorder, most recent episode (or current) depressed, moderate documented in this encounter [facility] note* Diagnosis Bipolar 1 disorder (HCC)- Primary Bipolar I disorder, most recent episode (or current) unspecified Generalized anxiety disorder Bipolar 1 disorder, depressed, moderate (HCC) Bipolar I disorder, most recent episode (or current) depressed, moderate documented in this encounter [facility] note* Diagnosis Cervical myelopathy (HCC)- Primary Cervical spondylosis with myelopathy 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) documented in this encounter [facility] note* Diagnosis Hand numbness- Primary Disturbance of skin sensation Dizziness Dizziness and giddiness Hand numbness Disturbance of skin sensation Dizziness Dizziness and giddiness documented in this encounter [facility] note* Diagnosis 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) [facility] Diagnosis Cervical stenosis of spinal canal- Primary Spinal stenosis in cervical region Cervical stenosis of spinal canal Spinal stenosis in cervical region documented in this encounter [facility] note* Diagnosis Left arm cellulitis- Primary [facility]* Diagnosis Dysphagia documented in this encounter [facility] note* Diagnosis Cervical myelopathy (HCC) Cervical spondylosis with myelopathy documented in this encounter [facility] note* Diagnosis Cervical myelopathy (HCC)- Primary Cervical spondylosis with myelopathy [facility]* Diagnosis Dysphagia- Primary Dysphagia documented in this encounter [facility] note* Diagnosis Dysphagia, unspecified type Abnormal barium swallow Nonspecific (abnormal) findings on radiological and other examination of gastrointestinal tract Essential hypertension Unspecified essential hypertension Mild intermittent asthma without complication Unspecified asthma Stage 3 chronic kidney disease, unspecified whether stage 3a or 3b CKD (HCC) Nonrheumatic aortic valve stenosis Aortic valve disorders Mixed hyperlipidemia documented in this encounter [facility] note* Diagnosis Esophageal stenosis- Primary Stricture and stenosis of esophagus Adenomatous polyp of duodenum Other specified disorder of stomach and duodenum documented in this encounter [facility] note* Diagnosis Nausea vomiting and diarrhea- Primary Acute kidney injury (HCC) Nausea vomiting and diarrhea Acute kidney injury (HCC) documented in this encounter [facility] note* Diagnosis Diverticulitis- Primary Diverticulitis of colon (without mention of hemorrhage) Rectal bleeding Hemorrhage of rectum and anus Aneurysm of ascending aorta without rupture (HCC) documented in this encounter [facility] note* Diagnosis Aneurysm of ascending aorta without rupture (HCC)- Primary Diverticulitis Diverticulitis of colon (without mention of hemorrhage) Primary hypertension Unspecified essential hypertension Disorder of artery or arteriole (HCC) Unspecified disorders of arteries and arterioles documented in this encounter [facility] note* Diagnosis Esophageal stenosis- Primary Stricture and stenosis of esophagus Diverticulitis Diverticulitis of colon (without mention of hemorrhage) documented in this encounter [facility] note* Diagnosis Aneurysm of ascending aorta without rupture (HCC) Diverticulitis Diverticulitis of colon (without mention of hemorrhage) Primary hypertension Unspecified essential hypertension Disorder of artery or arteriole (HCC) Unspecified disorders of arteries and arterioles documented in this encounter [facility] note* Diagnosis Dilatation of thoracic aorta (HCC)- Primary Thoracic aortic ectasia Preop cardiovascular exam Pre-operative cardiovascular examination Primary hypertension Unspecified essential hypertension Coronary artery calcification Coronary atherosclerosis of unspecified type of vessel, [place] or graft Dyslipidemia Other and unspecified hyperlipidemia Chronic kidney disease, unspecified CKD stage Aneurysm of ascending aorta without rupture (HCC) Diverticulitis Diverticulitis of colon (without mention of hemorrhage) Disorder of artery or arteriole (HCC) Unspecified disorders of arteries and arterioles Dyspnea, unspecified type documented in this encounter [facility] note* Diagnosis Aneurysm of ascending aorta without rupture (HCC) Diverticulitis Diverticulitis of colon (without mention of hemorrhage) Primary hypertension Unspecified essential hypertension Disorder of artery or arteriole (HCC) Unspecified disorders of arteries and arterioles documented in this encounter [facility] note* Diagnosis Aneurysm of ascending aorta without rupture (HCC)- Primary Disorder of artery or arteriole (HCC) Unspecified disorders of arteries and arterioles documented in this encounter [facility] note* Diagnosis Hand numbness Disturbance of skin sensation Dizziness Dizziness and giddiness documented in this encounter [facility] note* Diagnosis 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) (HCC)- Primary Parkinsonism, unspecified Parkinsonism type ([facility]) documented in this encounter [facility] note* Diagnosis Dysphagia, unspecified type Abnormal barium swallow Nonspecific (abnormal) findings on radiological and other examination of gastrointestinal tract Essential hypertension Unspecified essential hypertension Mild intermittent asthma without complication Unspecified asthma Stage 3 chronic kidney disease, unspecified whether stage 3a or 3b CKD (HCC) Nonrheumatic aortic valve stenosis Aortic valve disorders Mixed hyperlipidemia Aneurysm of ascending aorta without rupture (HCC) Disorder of artery or arteriole (HCC) Unspecified disorders of arteries and arterioles documented in this encounter [facility] note* Diagnosis Dysphagia, unspecified type Abnormal barium swallow Nonspecific (abnormal) findings on radiological and other examination of gastrointestinal tract Essential hypertension Unspecified essential hypertension Mild intermittent asthma without complication (HCC) Unspecified asthma Stage 3 chronic kidney disease, unspecified whether stage 3a or 3b CKD (HCC) Nonrheumatic aortic valve stenosis Aortic valve disorders Mixed hyperlipidemia Encounter for screening mammogram for breast cancer documented in this encounter [facility] note* Diagnosis Closed nondisplaced intertrochanteric fracture of right femur, initial encounter ([facility])- Primary Closed displaced intertrochanteric fracture of right femur, initial encounter ([facility]) Closed nondisplaced intertrochanteric fracture of right femur, initial encounter ([facility]) Osteoporosis, unspecified osteoporosis type, unspecified pathological fracture presence Debility Unspecified debility Acute pain due to trauma Bipolar 1 disorder ([facility]) At risk for delirium documented in this encounter [facility] note* Diagnosis Closed displaced intertrochanteric fracture of right femur, initial encounter ([facility])- Primary documented in this encounter [facility] noteNo assessment information availableWRegency [facility] Work Phone: Reason for referral (narrative)* Outpatient Procedure (Routine) - Closed Specialty Diagnoses / Procedures Referred By Consuelo t Referred To Contact Diagnoses Dysphagia, unspecified type Abnormal barium swallow Procedures EGD DIAGNOSTIC EGD DIAGNOSTIC ESOPHAGOGASTRODUODENOSCOPY TRANSORAL DIAGNOSTIC Arely Hercules PA-C [address] [place] [address] [address] Referral ID Status Reason Start Date Expiration Date V isits Requested Visits Authorized [id number] Closed Auto-Generate d Referral 11/14/2023 02/12/2024 1 1 [facility] for referral (narrative)* Outpatient Procedure (Routine) - Pending Review Specialty Diagnoses / Procedures Referred By Contac t Referred To Contact [facility] Diagnoses Esophageal stenosis Adenomatous polyp of duodenum Procedures EGD - THERAPEUTIC, EUS, OR TUBE INTERVENTIONS EGD DILATION GASTRIC/DUODENAL STRICTURE Arely Hercules PA-C [address] [place] [address] [address] Referral ID Status Reason Start Date Expiration Date Visits Requested Visits Authorized [id number] Pending Review Auto-Generat ed Referral 11/16/2023 11/15/2024 1 1 [facility] for referral (narrative)* Outpatient Procedure (Routine) - Pending Review Specialty Diagnoses / Procedures Referred By Contac t Referred To Contact [facility] Diagnoses Diverticulitis Procedures COLONOSCOPY DIAGNOSTIC COLONOSCOPY FLX DX W/COLLJ SPEC WHEN PFRMD Arely Hercules PA-C [address] [place] [address] [address] Referral ID Status Reason Start Date Expiration Date Visits Requested Visits Authorized [id number] Pending Review Auto-Generat ed Referral 03/04/2024 03/04/2025 1 1 [facility] Consultation (Routine) - Pending Review Specialty Diagnoses / Procedures Referred By Contac t Referred To Contact Neurosurgery Diagnoses 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) (HCC) Anthony Mars MD [address] [place] [address] [facility] [address] [place] [address] Referral ID Status Reason Start Date Expiration Date Visits Requested Visits Authorized [id number] Pending Review Specialty Services Required 11/11/2022 11/11/2023 1 1 [facility] for referral (narrative)No reason for referral information availableWRegency [facility] Work Phone: Reason for visit Narrative* Diagnostic Procedure Only (Routine) - Closed Specialty Diagnoses / Procedures Referred By Contac t Referred To Contact US IMAGING Diagnoses Multiple thyroid nodules Procedures US THYROID/PARATHYROID US SOFT TISSUE HEAD & NECK REAL TIME IMGE Anthony Joy MD [facility] [place] [address] Us Imaging Referral ID Status Reason Start Date Expiration Date V isits Requested Visits Authorized [id number] Closed Auto-Generate d Referral 11/01/2021 12/01/2022 1 [facility]* Outpatient Procedure (Routine) - Closed Specialty Diagnoses / Procedures Referred By Contac t Referred To Contact Diagnoses Dysphagia, unspecified type Abnormal barium swallow Procedures EGD DIAGNOSTIC EGD DIAGNOSTIC ESOPHAGOGASTRODUODENOSCOPY TRANSORAL DIAGNOSTIC Arely Hercules PA-C [address] [place] [address] [address] Referral ID Status Reason Start Date Expiration Date V isits Requested Visits Authorized [id number] Closed Auto-Generate d Referral 11/14/2023 02/12/2024 1 1 [facility] History of Past Illness Problem Noted Date Resolved Date Malnutrition of mild degree 08/07/201905/2019 Abnormal urinalysis 08/06/2019 08/12/2019 Bipolar depression 11/20/2017 11/27/2017 Drug overdose 11/13/2017 11/27/2017 UTI (urinary tract infection) 11/13/2017 Dehydration 09/20/2017 09/29/2017 DEENA (acute kidney injury) 09/20/20172017 Depression 09/20/2017 11/27/2017 Rule-out : Bipolar disorder (HCC) 09/20/2017 10/28/2019 Hypokalemia 09/20/2017 08/12/2019 Pyuria 09/20/2017 11/21/2017 Polycythemia 09/20/2017 11/21/2017 Problem Noted Date Resolved Date Malnutrition of mild degree 08/07/201905/2019 Abnormal urinalysis 08/06/2019 08/12/2019 Bipolar depression 11/20/2017 11/27/2017 Drug overdose 11/13/2017 11/27/2017 UTI (urinary tract infection) 11/13/2017 Dehydration 09/20/2017 09/29/2017 DEENA (acute kidney injury) 09/20/20172017 Depression 09/20/2017 11/27/2017 Rule-out : Bipolar disorder (HCC) 09/20/2017 10/28/2019 Hypokalemia 09/20/2017 08/12/2019 Pyuria 09/20/2017 11/21/2017 Polycythemia 09/20/2017 11/21/2017 Problem Noted Date Resolved Date Malnutrition of mild degree 08/07/201905/2019 Abnormal urinalysis 08/06/2019 08/12/2019 Bipolar depression 11/20/2017 11/27/2017 Drug overdose 11/13/2017 11/27/2017 UTI (urinary tract infection) 11/13/2017 Dehydration 09/20/2017 09/29/2017 DEENA (acute kidney injury) 09/20/20172017 Depression 09/20/2017 11/27/2017 Rule-out : Bipolar disorder (HCC) 09/20/2017 10/28/2019 Hypokalemia 09/20/2017 08/12/2019 Pyuria 09/20/2017 11/21/2017 Polycythemia 09/20/2017 11/21/2017 Problem Noted Date Resolved Date Fall 06/08/2020 06/17/2020 SAH (subarachnoid hemorrhage) 06/07/2020 Malnutrition of mild degree 08/07/201905/2019 Abnormal urinalysis 08/06/2019 08/12/2019 Bipolar depression 11/20/2017 11/27/2017 Drug overdose 11/13/2017 11/27/2017 UTI (urinary tract infection) 11/13/2017 Dehydration 09/20/2017 09/29/2017 DEENA (acute kidney injury) 09/20/20172017 Depression 09/20/2017 11/27/2017 Rule-out : Bipolar disorder (HCC) 09/20/2017 10/28/2019 Hypokalemia 09/20/2017 08/12/2019 Pyuria 09/20/2017 11/21/2017 Polycythemia 09/20/2017 11/21/2017 Problem Noted Date Resolved Date Fall 06/08/2020 06/17/2020 SAH (subarachnoid hemorrhage) 06/07/2020 Malnutrition of mild degree 08/07/201905/2019 Abnormal urinalysis 08/06/2019 08/12/2019 Bipolar depression 11/20/2017 11/27/2017 Drug overdose 11/13/2017 11/27/2017 UTI (urinary tract infection) 11/13/2017 Dehydration 09/20/2017 09/29/2017 DEENA (acute kidney injury) 09/20/20172017 Depression 09/20/2017 11/27/2017 Rule-out : Bipolar disorder (HCC) 09/20/2017 10/28/2019 Hypokalemia 09/20/2017 08/12/2019 Pyuria 09/20/2017 11/21/2017 Polycythemia 09/20/2017 11/21/2017 Problem Noted Date Resolved Date Fall 06/08/2020 06/17/2020 SAH (subarachnoid hemorrhage) 06/07/2020 Malnutrition of mild degree 08/07/201905/2019 Abnormal urinalysis 08/06/2019 08/12/2019 Bipolar depression 11/20/2017 11/27/2017 Drug overdose 11/13/2017 11/27/2017 UTI (urinary tract infection) 11/13/2017 Dehydration 09/20/2017 09/29/2017 DEENA (acute kidney injury) 09/20/20172017 Depression 09/20/2017 11/27/2017 Rule-out : Bipolar disorder (HCC) 09/20/2017 10/28/2019 Hypokalemia 09/20/2017 08/12/2019 Pyuria 09/20/2017 11/21/2017 Polycythemia 09/20/2017 11/21/2017 Problem Noted Date Resolved Date Fall 06/08/2020 06/17/2020 SAH (subarachnoid hemorrhage) 06/07/2020 Malnutrition of mild degree 08/07/201905/2019 Abnormal urinalysis 08/06/2019 08/12/2019 Bipolar depression 11/20/2017 11/27/2017 Drug overdose 11/13/2017 11/27/2017 UTI (urinary tract infection) 11/13/2017 Dehydration 09/20/2017 09/29/2017 DEENA (acute kidney injury) 09/20/20172017 Depression 09/20/2017 11/27/2017 Rule-out : Bipolar disorder (HCC) 09/20/2017 10/28/2019 Hypokalemia 09/20/2017 08/12/2019 Pyuria 09/20/2017 11/21/2017 Polycythemia 09/20/2017 11/21/2017 Problem Noted Date Resolved Date Fall 06/08/2020 06/17/2020 SAH (subarachnoid hemorrhage) 06/07/2020 Malnutrition of mild degree 08/07/201905/2019 Abnormal urinalysis 08/06/2019 08/12/2019 Bipolar depression 11/20/2017 11/27/2017 Drug overdose 11/13/2017 11/27/2017 UTI (urinary tract infection) 11/13/2017 Dehydration 09/20/2017 09/29/2017 DEENA (acute kidney injury) 09/20/20172017 Depression 09/20/2017 11/27/2017 Rule-out : Bipolar disorder (HCC) 09/20/2017 10/28/2019 Hypokalemia 09/20/2017 08/12/2019 Pyuria 09/20/2017 11/21/2017 Polycythemia 09/20/2017 11/21/2017 Problem Noted Date Resolved Date Malnutrition of mild degree 08/07/201905/2019 Abnormal urinalysis 08/06/2019 08/12/2019 Bipolar depression 11/20/2017 11/27/2017 Drug overdose 11/13/2017 11/27/2017 UTI (urinary tract infection) 11/13/2017 Dehydration 09/20/2017 09/29/2017 DEENA (acute kidney injury) 09/20/20172017 Depression 09/20/2017 11/27/2017 Rule-out : Bipolar disorder (HCC) 09/20/2017 10/28/2019 Hypokalemia 09/20/2017 08/12/2019 Pyuria 09/20/2017 11/21/2017 Polycythemia 09/20/2017 11/21/2017 Problem Noted Date Resolved Date Fall 06/08/2020 06/17/2020 SAH (subarachnoid hemorrhage) 06/07/2020 Malnutrition of mild degree 08/07/201905/2019 Abnormal urinalysis 08/06/2019 08/12/2019 Bipolar depression 11/20/2017 11/27/2017 Drug overdose 11/13/2017 11/27/2017 UTI (urinary tract infection) 11/13/2017 Dehydration 09/20/2017 09/29/2017 DEENA (acute kidney injury) 09/20/20172017 Depression 09/20/2017 11/27/2017 Rule-out : Bipolar disorder (HCC) 09/20/2017 10/28/2019 Hypokalemia 09/20/2017 08/12/2019 Pyuria 09/20/2017 11/21/2017 Polycythemia 09/20/2017 11/21/2017 Problem Noted Date Resolved Date Malnutrition of mild degree 08/07/201905/2019 Abnormal urinalysis 08/06/2019 08/12/2019 Bipolar depression 11/20/2017 11/27/2017 Drug overdose 11/13/2017 11/27/2017 UTI (urinary tract infection) 11/13/2017 Dehydration 09/20/2017 09/29/2017 DEENA (acute kidney injury) 09/20/20172017 Depression 09/20/2017 11/27/2017 Rule-out : Bipolar disorder (HCC) 09/20/2017 10/28/2019 Hypokalemia 09/20/2017 08/12/2019 Pyuria 09/20/2017 11/21/2017 Polycythemia 09/20/2017 11/21/2017 History of Present Illness * Danny De La Cruz ([employer] Sales Merchandiser) - 04/30/2020 2:34 PM EDT [facility] PROGRESS NOTE PATIENT: Pily Barnes MRD: [id number] DATE: April 30, 2020 IDENTIFYING INFORMATION: Pily is a 69 year old female with a history of bipolar disorder currentlydepressed, generalized anxiety disorder. This visit is being conducted using HIPPA compliant telecommunication system permitting interactiveaudio and video Proper identity has been estbablished and consent to treat is confirmed. Telephone CHIEF COMPLAINT: "I am doing ok. " INTERIM HISTORY: She has been to the library and now has new books to read, she is playing the piano at times. She is going to visit with her soon for lunch. Her children and their relation is going well. She still has home health assistance she finds it frustrating. She finds that the help is inconsistent in times of arrival. She is eating the mom meals, she is bathing every 4-5 days she does sink washing on the days she doesn't shower. She is getting counseling from the [facility], They come into the home. She believesthis is going well. She had an echocardiogram that showed she has a mild murmur and needs to loose weight. So she is not drinking all her boost. She still lays in the bed in the mornings, this is when she has her suicidal thoughts, 'they are not as strong.' Review of Systems Psychiatric/Behavioral: Positive for depression and suicidal ideas. The patient is nervous/anxious. [place] [employer] SEVERITY RATING SCALE 1.) Wish to be : Have you wished you were or wished you could go to sleep and not wake up?YES 2.) Suicidal Thoughts: Have you actually had any thoughts of killing yourself? YES 3.) Suicidal Thoughts with Method (without Specific Plan or Intent to Act): Have you been thinking about how you might kill yourself? NO 4.) Suicidal Intent (without Specific Plan): Have you had these thoughts and had some intention of acting on them? NO 5) Suicide Intent with Specific Plan: Have you started to work out or worked out the details of howto kill yourself? Do you intend to carry out this plan? NO 6.) Suicide Behavior Question: Have you ever done anything, started to do anything, or prepared to do anything to end your life?NO RISK LEVEL RISK/PROTECTIVE FACTOR SUICIDALITY POSSIBLE INTERVENTIONS High Psychiatric disorders with severe symptoms, or acute precipitating event; protective factors not relevant Potentially lethal suicide attempt or persistent ideation with strong intent or suicide rehearsal Admission generally indicated unless a significant change reduces risk. Suicide precautions Moderate Multiple risk factors, few protective factors Suicidal ideation with plan, but no intent or behavior Admission may be necessary depending on risk factors. Develop crisis plan. Give emergency/crisis numbers Low Modifiable risk factors, strong protective factors Thoughts of , no plan, intent or behavior Outpatient referral, symptom reduction. Give emergency/crisis numbers Risk level: moderate, she still has thoughts of suicide but now they are mild. Current Outpatient Medications on File Prior to Visit Medication Sig ARIPiprazole (ABILIFY) 2 mg tablet Take 1 tablet by mouth once daily. paliperidone palmitate (INVEGA SUSTENNA) 78 mg/0.5 mL syrg Inject 0.5 mL intramuscularly every 4 weeks. Due 02/03/20 buPROPion XL (WELLBUTRIN XL) 300 mg 24 hr tablet Take 1 tablet by mouth once daily. FLUoxetine (PROZAC) 20 mg capsule Take 3 capsules by mouth once daily. acetaminophen (TYLENOL) 500 mg tablet Take 1 tablet by mouth twice daily as needed for Pain. Pleaseput in a separate bottle thanks amLODIPine (NORVASC) 5 mg tablet Take 1 tablet by mouth once daily. albuterol HFA (VENTOLIN HFA) 90 mcg/actuation inhaler Inhale 2 Puffs as instructed every 4 hours asneeded for Wheezing/Shortness of Breath. fluticasone-vilanterol (BREO ELLIPTA) 100-25 mcg/dose inhaler Inhale 1 Inhalation as instructed once daily. lisinopril (ZESTRIL, PRINIVIL) 20 mg tablet Take 1 tablet by mouth once daily. therapeutic multivitamin w/ iron (THERAGRAN-M) 9 mg iron-400 mcg tablet Take 1 tablet by mouth oncedaily. aspirin (ASPIRIN CHILDRENS) 81 mg chewable tablet Take 81 mg by mouth once daily. Current Facility-Administered Medications on File Prior to Visit Medication glycopyrrolate 0.2 mg injection (ROBINUL) ondansetron (PF) 4 mg injection (ZOFRAN) lactated ringers infusion prochlorperazine 10 mg injection (COMPAZINE) Medication side effects: None Substance Use History: no history Delusions: None Hallucinations: none Past family; and social history reviewed. VITAL SIGNS: There were no vitals taken for this visit. LAB DATA: Reviewed and discussed. No flowsheet data found. AIMS TESTING NA MENTAL STATUS EXAMINATION: Appearance:telephone Activity: unable to observe Behavior: Cooperative, Speech: not spontaneous, Normal rate, Normal volume, Clear, takes time to become spontaneous in herspeaking Mood: euthymic with slight depression Affect: appropriate to content Thought Process: logical Thought Content: Thoughts of suicide, no intent or plan., No homicidal ideation, intent or plan., Logical Cognition: Orientation: Person, Place, Time and Situation Attention: Intact Concentration: Intact Language: Intact naming, Intact repetition Estimated Intelligence: Good Memory: Mildly Impaired recent memory, Mildly Impaired remote memory Abstraction: Intact Insight: adequate Judgement: adequate RISK ASSESSMENT: Discussed the risk and benefit of the medication, client demonstrates understanding. Discussed importance of the chosen treatment plan. Client agrees with the discussed plans and efforts to keep within the stated plan. PDMP website checked and validated. All prescriptions have been APPROPRIATELY filled. No suspiciousactivity was identified. 04/30/2020 by Danny De La Cruz APRN.CNP ASSESSMENT/PLAN: 1. Bipolar 1 disorder, depressed, moderate (HCC) - ICD9: 296.52, ICD10: F31.32 (primary diagnosis) 2. Generalized anxiety disorder - ICD9: 300.02, ICD10: F41.1 Increase Abilify to 5 mg daily CW Invega Sustenna 78 mg monthly Bupropion XL 300mg daily Prozac 60 mg daily Encouraged her activities toward wellness. Danny De La Cruz APRN.CNP Patient understands and agrees with the treatment plan: Yes Return in about 4 weeks (around 05/28/2020). Psycho-Education: Total time in direct patient contact = 30 min. Greater than 50% of the time was spent in counselingand/or coordination of care. 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 Ms. Barnes was initially evaluated while hospitalized at [facility]. She was admitted after a ground levelfall in a parking lot. She reported dizziness with attempts at ambulation. CT brain imaging demonstrated small hyperdensity at the septum pellucidum and small volume IVH. CTA head / neck did not demonstrate vascular abnormalities. She had no neuro deficits. She was discharged to [facility] on 06/17/2020 and was asked to follow up with repeat head CT in 2 weeks. Today, she feels well. Denies headache. She remains at [place] and is working with PT, OT. She is now using a walker to prevent falls. She is here to review repeat brain CT. Symptoms: dizziness with ambulation PREVIOUS CONSERVATIVE TREATMENTS: N/A PREVIOUS SURGERY: No neurosurgical procedures Smoker: No Diabetic: No Anticoagulants: No Occupation: Retired Denies pain at today's visit PAST MEDICAL HISTORY Diagnosis Date Asthma Bipolar 1 disorder (HCC) Depression Hypertension Mitral valve disorder TATI (obstructive sleep apnea) 08/06/2019 undiagnosed PAST SURGICAL HISTORY Procedure Laterality Date HYSTERECTOMY HX FAMILY HISTORY Problem Relation Age of Onset Psychiatry Mother other (parkinson disease) Mother Thyroid Sister ALLERGIES Allergen Reactions Seasonal Allergies Intolerance Sulfa (Sulfonamide * Itching Sulfadiazine Swelling, Other: See Comments Facial swelling Current Outpatient Medications Medication Sig Dispense Refill clonazePAM (KLONOPIN) 0.5 mg tablet Take 0.5 tablets by mouth twice daily for 10 days. Please follow up with your primary care doctor for additional medication. 10 tablet 0 clonazePAM (KLONOPIN) 0.5 mg tablet 1/2 tablet twice daily in the am and afternoon 15 tablet 0 paliperidone palmitate (INVEGA SUSTENNA) 78 mg/0.5 mL syrg Inject 0.5 mL intramuscularly every 4 weeks. Due 02/03/20 0.5 mL 0 traZODone (DESYREL) 50 mg tablet TAKE ONE TABLET BY MOUTH EVERY DAY AT BEDTIME 30 tablet 3 ARIPiprazole (ABILIFY) 5 mg tablet Take 1 tablet by mouth once daily. 30 tablet 2 buPROPion XL (WELLBUTRIN XL) 300 mg 24 hr tablet Take 1 tablet by mouth once daily. 30 tablet 1 FLUoxetine (PROZAC) 20 mg capsule Take 3 capsules by mouth once daily. 90 capsule 1 acetaminophen (TYLENOL) 500 mg tablet Take 1 tablet by mouth twice daily as needed for Pain. Pleaseput in a separate bottle thanks 10 tablet 0 amLODIPine (NORVASC) 5 mg tablet Take 1 tablet by mouth once daily. 30 tablet 2 albuterol HFA (VENTOLIN HFA) 90 mcg/actuation inhaler Inhale 2 Puffs as instructed every 4 hours asneeded for Wheezing/Shortness of Breath. 2 Inhaler 0 fluticasone-vilanterol (BREO ELLIPTA) 100-25 mcg/dose inhaler Inhale 1 Inhalation as instructed once daily. 60 Each 0 lisinopril (ZESTRIL, PRINIVIL) 20 mg tablet Take 1 tablet by mouth once daily. 30 tablet 2 therapeutic multivitamin w/ iron (THERAGRAN-M) 9 mg iron-400 mcg tablet Take 1 tablet by mouth oncedaily. No current facility-administered medications for this visit. Facility-Administered Medications Ordered in Other Visits Medication Dose Route Frequency Provider Last Rate Last Dose glycopyrrolate 0.2 mg injection (ROBINUL) 0.2 mg INTRAVENOUS (PACU) PRN Shannon Alexandra ondansetron (PF) 4 mg injection (ZOFRAN) 4 mg INTRAVENOUS (PACU) PRN Shannon Alexandra lactated ringers infusion 125 mL/hr INTRAVENOUS (PACU) DIRECTED Shannon Alexandra REVIEW OF SYSTEMS Review of Systems Constitutional: Negative for activity change, appetite change, chills, diaphoresis, fatigue, fever and unexpected weight change. Respiratory: Negative for apnea, cough, chest tightness and shortness of breath. Cardiovascular: Negative for chest pain. Gastrointestinal: Negative for abdominal pain. Genitourinary: Negative for difficulty urinating. Musculoskeletal: Positive for gait problem. Negative for back pain. Neurological: Positive for dizziness, weakness and light-headedness. Negative for tremors, seizures, syncope, facial asymmetry, speech difficulty, numbness and headaches. Psychiatric/Behavioral: Negative for agitation and behavioral problems. The patient is not nervous/anxious. OBJECTIVE: BP 141/89 Pulse 81 Temp 97.9 Resp 16 Ht 5' 1" (1.55m) Wt 155 lb (70.3kg) SpO2 94% BMI29.30 kg/(m^2). Physical Exam Constitutional: She is well-developed, well-nourished, and in no distress. HENT: Head: Normocephalic. Eyes: Pupils are equal, round, and reactive to light. Lids are normal. Cardiovascular: Normal rate. Pulmonary/Chest: Effort normal. Musculoskeletal: General: No deformity or edema. Neurological: She is alert. She has normal strength. Skin: Skin is warm and dry. Psychiatric: Her speech is normal. Mood, memory, affect and judgment normal. Neurological Exam Mental Status Alert. Oriented to person, place, time and situation. Speech is normal. Language is fluent with no aphasia. Cranial Nerves CN III, IV, : Extraocular movements intact bilaterally. Normal lids and orbits bilaterally. Pupils equal round and reactive to light bilaterally. CN V: Right: Facial sensation is normal. Left: Facial sensation is normal on the left. CN VII: Right: There is no facial weakness. Left: There is no facial weakness. CN IX, X: Palate elevates symmetrically CN XI: Shoulder shrug strength is normal. CN XII: Tongue midline without atrophy or fasciculations. Motor Normal muscle bulk throughout. Normal muscle tone. Strength is 5/5 throughout all four extremities. Coordination Right: Aiovsz-ip-ysuo normal. Left: [id number] normal. Gait Gait is with wheeled walker. Data Review IMAGING STUDIES: CT BRAIN WO IVCON on 06/23/2020: Final read is pending Personal review of medical records: I reviewed with the patient, history, physical exam, the imagesand the chart. ASSESSMENT/PLAN 1. Traumatic subdural hematoma with loss of consciousness, subsequent encounter 69F s/p fall with small intraventricular ICH/SDH at septum pellucidum Doing well, still at facility. Working on balance and dizziness. Using walker. CT brain reviewed today - resolution of intraventricular hemorrhage - ok to resume ASA - f/up as required Tatiana Alvarez MD This note was partially generated using [employer] voice recognition system, and there may be some incorrect words, spellings, and punctuation that were not noted in checking the note before saving. documented in this encounter* Tisha Pedroza (Rt), Cathleen - 06/23/2020 9:30 AM EDT Radiology Service Progress Note PATIENT NAME: Pily Barnes DATE OF SERVICE: June 23, 2020 TIME: 10:05 AM PATIENT IDENTITY VERIFICATION COMPLETED USING TWO (2) IDENTIFIERS: Name and Date of confirmedby patient verbally. FALL SCREENING: Has the patient had 2 falls in the last year or 1 fall with injury or currently using an Ambulatory Assistive Device (Walker, Cane, Wheelchair, Crutches, etc.)? Yes, Patient High Riskfor Falls What interventions were put in place to prevent falls during this visit? Increased Observations by Caregivers PATIENT GENDER DATA: Female. status: : No status: NO. PATIENT RELEVANT IMPLANT DATA REVIEWED: Not Applicable RADIOLOGY DEPARTMENT: CT; Exam(s) Completed: Brain PERIPHERAL IV DATA: Not applicable SIGNED BY: RT Lupillo June 23, 2020 10:28 AM documented in this encounter Assessments Diagnosis Bipolar 1 disorder, depressed, moderate (HCC)- Primary Bipolar I disorder, most recent episode (or current) depressed, moderate Generalized anxiety disorder Diagnosis Intracranial hemorrhage (HCC) Unspecified intracranial hemorrhage Diagnosis Traumatic subdural hematoma with loss of consciousness, subsequent encounter- Primary Diagnosis Intracranial hemorrhage (HCC) Unspecified intracranial hemorrhage Diagnosis Thyroid mass- Primary Unspecified disorder of thyroid Diagnosis Generalized anxiety disorder Diagnosis Syncope and collapse Nonrheumatic aortic valve stenosis Aortic valve disorders Advance Directives No Advanced Directives Records FoundDocuments on File Type Date Recorded Patient Metal Melter Expl anation Advance Directive(s) 09/20/2017 5:23 PM Advance Directive(s) 07/03/2019 7:20 AM a dv dir on file Advance Directive(s) 11/16/2017 4:41 PM ad v dir on file Advance Directive(s) 02/20/2019 12:52 PM Advance Directive(s) 05/29/2019 7:32 AM Advance Directive(s) 05/13/2019 7:08 AM Advance Directive(s) 06/17/2019 7:11 AM a dv dir on file Advance Directive(s) 06/18/2019 7:59 AM a dv dir on file Advance Directive(s) 07/17/2019 7:23 AM a dv dir on file Advance Directive(s) 07/25/2019 7:27 AM a dv dir on file Advance Directive(s) 08/05/2019 7:23 AM Advance Directive(s) 08/14/2019 7:21 AM Advance Directive(s) 08/15/2019 7:32 AM Advance Directive(s) 08/19/2019 7:37 AM Advance Directive(s) 08/23/2019 7:23 AM Advance Directive(s) 08/26/2019 7:41 AM Advance Directive(s) 08/29/2019 7:15 AM Advance Directive(s) 09/02/2019 7:30 AM Advance Directive(s) 09/06/2019 7:20 AM Advance Directive(s) 09/12/2019 7:20 AM Advance Directive(s) 09/20/2019 7:24 AM Advance Directive(s) 10/04/2019 7:32 AM Advance Directive(s) 10/16/2019 7:33 AM ad v dir on file Advance Directive(s) 11/14/2019 7:18 AM Advance Directive(s) 12/31/2019 6:08 PM Documents on File Type Date Recorded Patient Metal Melter Expl anation Advance Directive(s) 09/20/2017 5:23 PM Advance Directive(s) 07/03/2019 7:20 AM a dv dir on file Advance Directive(s) 11/16/2017 4:41 PM ad v dir on file Advance Directive(s) 02/20/2019 12:52 PM Advance Directive(s) 05/29/2019 7:32 AM Advance Directive(s) 05/13/2019 7:08 AM Advance Directive(s) 06/17/2019 7:11 AM a dv dir on file Advance Directive(s) 06/18/2019 7:59 AM a dv dir on file Advance Directive(s) 07/17/2019 7:23 AM a dv dir on file Advance Directive(s) 07/25/2019 7:27 AM a dv dir on file Advance Directive(s) 08/05/2019 7:23 AM Advance Directive(s) 08/14/2019 7:21 AM Advance Directive(s) 08/15/2019 7:32 AM Advance Directive(s) 08/19/2019 7:37 AM Advance Directive(s) 08/23/2019 7:23 AM Advance Directive(s) 08/26/2019 7:41 AM Advance Directive(s) 08/29/2019 7:15 AM Advance Directive(s) 09/02/2019 7:30 AM Advance Directive(s) 09/06/2019 7:20 AM Advance Directive(s) 09/12/2019 7:20 AM Advance Directive(s) 09/20/2019 7:24 AM Advance Directive(s) 10/04/2019 7:32 AM Advance Directive(s) 10/16/2019 7:33 AM ad v dir on file Advance Directive(s) 11/14/2019 7:18 AM Advance Directive(s) 12/31/2019 6:08 PM Advance Directive(s) 06/06/2020 8:24 PM Documents on File Type Date Recorded Patient Metal Melter Expl anation Advance Directive(s) 09/20/2017 5:23 PM Advance Directive(s) 07/03/2019 7:20 AM a dv dir on file Advance Directive(s) 11/16/2017 4:41 PM ad v dir on file Advance Directive(s) 02/20/2019 12:52 PM Advance Directive(s) 05/29/2019 7:32 AM Advance Directive(s) 05/13/2019 7:08 AM Advance Directive(s) 06/17/2019 7:11 AM a dv dir on file Advance Directive(s) 06/18/2019 7:59 AM a dv dir on file Advance Directive(s) 07/17/2019 7:23 AM a dv dir on file Advance Directive(s) 07/25/2019 7:27 AM a dv dir on file Advance Directive(s) 08/05/2019 7:23 AM Advance Directive(s) 08/14/2019 7:21 AM Advance Directive(s) 08/15/2019 7:32 AM Advance Directive(s) 08/19/2019 7:37 AM Advance Directive(s) 08/23/2019 7:23 AM Advance Directive(s) 08/26/2019 7:41 AM Advance Directive(s) 08/29/2019 7:15 AM Advance Directive(s) 09/02/2019 7:30 AM Advance Directive(s) 09/06/2019 7:20 AM Advance Directive(s) 09/12/2019 7:20 AM Advance Directive(s) 09/20/2019 7:24 AM Advance Directive(s) 10/04/2019 7:32 AM Advance Directive(s) 10/16/2019 7:33 AM ad v dir on file Advance Directive(s) 11/14/2019 7:18 AM Advance Directive(s) 12/31/2019 6:08 PM Advance Directive(s) 06/06/2020 8:24 PM Latest Code Status on File Code Status Date Activated Date Inactivated Comments DNR-CCA 06/07/2020 8:54 PM 06/07/2020 8:55 PM DNR Order Discussed With: Patient Latest Code Status on File Code Status Date Activated Date Inactivated Comments DNR-CCA 06/07/2020 8:54 PM 06/07/2020 8:55 PM Documents on File Type Date Recorded Patient Metal Melter Expl anation Advance Directive(s) 09/20/2017 5:23 PM Advance Directive(s) 07/03/2019 7:20 AM a dv dir on file Advance Directive(s) 11/16/2017 4:41 PM ad v dir on file Advance Directive(s) 02/20/2019 12:52 PM Advance Directive(s) 05/29/2019 7:32 AM Advance Directive(s) 05/13/2019 7:08 AM Advance Directive(s) 06/17/2019 7:11 AM a dv dir on file Advance Directive(s) 06/18/2019 7:59 AM a dv dir on file Advance Directive(s) 07/17/2019 7:23 AM a dv dir on file Advance Directive(s) 07/25/2019 7:27 AM a dv dir on file Advance Directive(s) 08/05/2019 7:23 AM Advance Directive(s) 08/14/2019 7:21 AM Advance Directive(s) 08/15/2019 7:32 AM Advance Directive(s) 08/19/2019 7:37 AM Advance Directive(s) 08/23/2019 7:23 AM Advance Directive(s) 08/26/2019 7:41 AM Advance Directive(s) 08/29/2019 7:15 AM Advance Directive(s) 09/02/2019 7:30 AM Advance Directive(s) 09/06/2019 7:20 AM Advance Directive(s) 09/12/2019 7:20 AM Advance Directive(s) 09/20/2019 7:24 AM Advance Directive(s) 10/04/2019 7:32 AM Advance Directive(s) 10/16/2019 7:33 AM ad v dir on file Advance Directive(s) 11/14/2019 7:18 AM Advance Directive(s) 12/31/2019 6:08 PM Advance Directive(s) 06/06/2020 8:24 PM Advance Directive(s) 07/28/2020 7:03 AM Documents on File Type Date Recorded Patient Metal Melter Expl anation Advance Directive(s) 09/20/2017 5:23 PM Advance Directive(s) 07/03/2019 7:20 AM a dv dir on file Advance Directive(s) 11/16/2017 4:41 PM ad v dir on file Advance Directive(s) 02/20/2019 12:52 PM Advance Directive(s) 05/29/2019 7:32 AM Advance Directive(s) 05/13/2019 7:08 AM Advance Directive(s) 06/17/2019 7:11 AM a dv dir on file Advance Directive(s) 06/18/2019 7:59 AM a dv dir on file Advance Directive(s) 07/17/2019 7:23 AM a dv dir on file Advance Directive(s) 07/25/2019 7:27 AM a dv dir on file Advance Directive(s) 08/05/2019 7:23 AM Advance Directive(s) 08/14/2019 7:21 AM Advance Directive(s) 08/15/2019 7:32 AM Advance Directive(s) 08/19/2019 7:37 AM Advance Directive(s) 08/23/2019 7:23 AM Advance Directive(s) 08/26/2019 7:41 AM Advance Directive(s) 08/29/2019 7:15 AM Advance Directive(s) 09/02/2019 7:30 AM Advance Directive(s) 09/06/2019 7:20 AM Advance Directive(s) 09/12/2019 7:20 AM Advance Directive(s) 09/20/2019 7:24 AM Advance Directive(s) 10/04/2019 7:32 AM Advance Directive(s) 10/16/2019 7:33 AM ad v dir on file Advance Directive(s) 11/14/2019 7:18 AM Advance Directive(s) 12/31/2019 6:08 PM Advance Directive(s) 06/06/2020 8:24 PM Advance Directive(s) 07/28/2020 7:03 AM Documents on File Type Date Recorded Patient Metal Melter Expl anation Advance Directive(s) 07/28/2020 7:03 AM Advance Directive(s) 06/06/2020 8:24 PM Advance Directive(s) 12/31/2019 6:08 PM Advance Directive(s) 11/14/2019 7:18 AM Advance Directive(s) 10/16/2019 7:33 AM ad v dir on file Advance Directive(s) 10/04/2019 7:32 AM Advance Directive(s) 09/20/2019 7:24 AM Advance Directive(s) 09/12/2019 7:20 AM Advance Directive(s) 09/06/2019 7:20 AM Advance Directive(s) 09/02/2019 7:30 AM Advance Directive(s) 08/29/2019 7:15 AM Advance Directive(s) 08/26/2019 7:41 AM Advance Directive(s) 08/23/2019 7:23 AM Advance Directive(s) 08/19/2019 7:37 AM Advance Directive(s) 08/15/2019 7:32 AM Advance Directive(s) 08/14/2019 7:21 AM Advance Directive(s) 08/05/2019 7:23 AM Advance Directive(s) 07/25/2019 7:27 AM a dv dir on file Advance Directive(s) 07/17/2019 7:23 AM a dv dir on file Advance Directive(s) 07/03/2019 7:20 AM a dv dir on file Advance Directive(s) 06/18/2019 7:59 AM a dv dir on file Advance Directive(s) 06/17/2019 7:11 AM a dv dir on file Advance Directive(s) 05/29/2019 7:32 AM Advance Directive(s) 05/13/2019 7:08 AM Advance Directive(s) 02/20/2019 12:52 PM Advance Directive(s) 11/16/2017 4:41 PM ad v dir on file Advance Directive(s) 09/20/2017 5:23 PM Documents on File Type Date Recorded Patient Metal Melter Expl anation Advance Directive(s) 09/20/2017 5:23 PM Advance Directive(s) 07/03/2019 7:20 AM a dv dir on file Advance Directive(s) 11/16/2017 4:41 PM ad v dir on file Advance Directive(s) 02/20/2019 12:52 PM Advance Directive(s) 05/29/2019 7:32 AM Advance Directive(s) 05/13/2019 7:08 AM Advance Directive(s) 06/17/2019 7:11 AM a dv dir on file Advance Directive(s) 06/18/2019 7:59 AM a dv dir on file Advance Directive(s) 07/17/2019 7:23 AM a dv dir on file Advance Directive(s) 07/25/2019 7:27 AM a dv dir on file Advance Directive(s) 08/05/2019 7:23 AM Advance Directive(s) 08/14/2019 7:21 AM Advance Directive(s) 08/15/2019 7:32 AM Advance Directive(s) 08/19/2019 7:37 AM Advance Directive(s) 08/23/2019 7:23 AM Advance Directive(s) 08/26/2019 7:41 AM Advance Directive(s) 08/29/2019 7:15 AM Advance Directive(s) 09/02/2019 7:30 AM Advance Directive(s) 09/06/2019 7:20 AM Advance Directive(s) 09/12/2019 7:20 AM Advance Directive(s) 09/20/2019 7:24 AM Advance Directive(s) 10/04/2019 7:32 AM Advance Directive(s) 10/16/2019 7:33 AM ad v dir on file Advance Directive(s) 11/14/2019 7:18 AM Advance Directive(s) 12/31/2019 6:08 PM Documents on File Type Date Recorded Patient Metal Melter Expl anation Advance Directive(s) 11/15/2021 8:23 PM Advance Directive(s) 06/15/2021 10:57 AM Advance Directive(s) 01/21/2021 9:57 PM Advance Directive(s) 12/16/2020 7:28 AM Advance Directive(s) 11/05/2020 5:56 PM Advance Directive(s) 07/28/2020 7:03 AM Advance Directive(s) 06/06/2020 8:24 PM Advance Directive(s) 12/31/2019 6:08 PM Advance Directive(s) 11/14/2019 7:18 AM Advance Directive(s) 10/16/2019 7:33 AM ad v dir on file Advance Directive(s) 10/04/2019 7:32 AM Advance Directive(s) 09/20/2019 7:24 AM Advance Directive(s) 09/12/2019 7:20 AM Advance Directive(s) 09/06/2019 7:20 AM Advance Directive(s) 09/02/2019 7:30 AM Advance Directive(s) 08/29/2019 7:15 AM Advance Directive(s) 08/26/2019 7:41 AM Advance Directive(s) 08/23/2019 7:23 AM Advance Directive(s) 08/19/2019 7:37 AM Advance Directive(s) 08/15/2019 7:32 AM Advance Directive(s) 08/14/2019 7:21 AM Advance Directive(s) 08/05/2019 7:23 AM Advance Directive(s) 07/25/2019 7:27 AM a dv dir on file Advance Directive(s) 07/17/2019 7:23 AM a dv dir on file Advance Directive(s) 07/03/2019 7:20 AM a dv dir on file Advance Directive(s) 06/18/2019 7:59 AM a dv dir on file Advance Directive(s) 06/17/2019 7:11 AM a dv dir on file Advance Directive(s) 05/29/2019 7:32 AM Advance Directive(s) 05/13/2019 7:08 AM Advance Directive(s) 02/20/2019 12:52 PM Advance Directive(s) 11/16/2017 4:41 PM ad v dir on file Advance Directive(s) 09/20/2017 5:23 PM Documents on File Type Date Recorded Patient Metal Melter Expl anation Advance Directive(s) 11/15/2021 8:23 PM Advance Directive(s) 06/15/2021 10:57 AM Advance Directive(s) 01/21/2021 9:57 PM Advance Directive(s) 12/16/2020 7:28 AM Advance Directive(s) 11/05/2020 5:56 PM Advance Directive(s) 07/28/2020 7:03 AM Advance Directive(s) 06/06/2020 8:24 PM Advance Directive(s) 12/31/2019 6:08 PM Advance Directive(s) 11/14/2019 7:18 AM Advance Directive(s) 10/16/2019 7:33 AM ad v dir on file Advance Directive(s) 10/04/2019 7:32 AM Advance Directive(s) 09/20/2019 7:24 AM Advance Directive(s) 09/12/2019 7:20 AM Advance Directive(s) 09/06/2019 7:20 AM Advance Directive(s) 09/02/2019 7:30 AM Advance Directive(s) 08/29/2019 7:15 AM Advance Directive(s) 08/26/2019 7:41 AM Advance Directive(s) 08/23/2019 7:23 AM Advance Directive(s) 08/19/2019 7:37 AM Advance Directive(s) 08/15/2019 7:32 AM Advance Directive(s) 08/14/2019 7:21 AM Advance Directive(s) 08/05/2019 7:23 AM Advance Directive(s) 07/25/2019 7:27 AM a dv dir on file Advance Directive(s) 07/17/2019 7:23 AM a dv dir on file Advance Directive(s) 07/03/2019 7:20 AM a dv dir on file Advance Directive(s) 06/18/2019 7:59 AM a dv dir on file Advance Directive(s) 06/17/2019 7:11 AM a dv dir on file Advance Directive(s) 05/29/2019 7:32 AM Advance Directive(s) 05/13/2019 7:08 AM Advance Directive(s) 02/20/2019 12:52 PM Advance Directive(s) 11/16/2017 4:41 PM ad v dir on file Advance Directive(s) 09/20/2017 5:23 PM Documents on File Type Date Recorded Patient Metal Melter Expl anation Advance Directive(s) 02/28/2022 2:14 PM Advance Directive(s) 11/15/2021 8:23 PM Advance Directive(s) 06/15/2021 10:57 AM Advance Directive(s) 01/21/2021 9:57 PM Advance Directive(s) 12/16/2020 7:28 AM Advance Directive(s) 11/05/2020 5:56 PM Advance Directive(s) 07/28/2020 7:03 AM Advance Directive(s) 06/06/2020 8:24 PM Advance Directive(s) 12/31/2019 6:08 PM Advance Directive(s) 11/14/2019 7:18 AM Advance Directive(s) 10/16/2019 7:33 AM ad v dir on file Advance Directive(s) 10/04/2019 7:32 AM Advance Directive(s) 09/20/2019 7:24 AM Advance Directive(s) 09/12/2019 7:20 AM Advance Directive(s) 09/06/2019 7:20 AM Advance Directive(s) 09/02/2019 7:30 AM Advance Directive(s) 08/29/2019 7:15 AM Advance Directive(s) 08/26/2019 7:41 AM Advance Directive(s) 08/23/2019 7:23 AM Advance Directive(s) 08/19/2019 7:37 AM Advance Directive(s) 08/15/2019 7:32 AM Advance Directive(s) 08/14/2019 7:21 AM Advance Directive(s) 08/05/2019 7:23 AM Advance Directive(s) 07/25/2019 7:27 AM a dv dir on file Advance Directive(s) 07/17/2019 7:23 AM a dv dir on file Advance Directive(s) 07/03/2019 7:20 AM a dv dir on file Advance Directive(s) 06/18/2019 7:59 AM a dv dir on file Advance Directive(s) 06/17/2019 7:11 AM a dv dir on file Advance Directive(s) 05/29/2019 7:32 AM Advance Directive(s) 05/13/2019 7:08 AM Advance Directive(s) 02/20/2019 12:52 PM Advance Directive(s) 11/16/2017 4:41 PM ad v dir on file Advance Directive(s) 09/20/2017 5:23 PM Documents on File Type Date Recorded Patient Metal Melter Expl anation Advance Directive(s) 11/16/2017 4:41 PM ad v dir on file Latest Code Status on File Code Status Date Activated Date Inactivated Comments Full Code 03/02/2023 3:44 PM 03/10/2023 4:12 PM Latest Code Status on File Code Status Date Activated Date Inactivated Comments Full Code 03/02/2023 3:44 PM 03/10/2023 4:12 PM Documents on File Type Date Recorded Patient Metal Melter Expl anation Advance Directive(s) 11/16/2017 4:41 PM ad v dir on file Date Activated Date Inactivated Comments 06/07/2020 8:54 PM 06/07/2020 8:55 PM Question Answer Comments DNR Order Discussed With: Patient Date Activated Date Inactivated Comments 06/07/2020 8:54 PM 06/07/2020 8:55 PM Question Answer Comments DNR Order Discussed With: Patient Documents on File Type Date Recorded Patient Metal Melter Expl anation DNR (Do Not Resuscitate) 04/23/2025 1:34 PM [place] DNR Form Date Activated Date Inactivated Comments 04/20/2025 12:58 AM 04/23/2025 5:19 PM Question Answer Comments ICU transfer: Yes Intubation: No Date Activated Date Inactivated Comments 04/20/2025 12:26 AM 04/20/2025 12:58 AM Date Activated Date Inactivated Comments 03/02/2023 3:44 PM 03/10/2023 4:12 PM Documents on File Type Date Recorded Patient Metal Melter Expl anation DNR (Do Not Resuscitate) 04/24/2025 11:33 AM DNR (Do Not Resuscitate) 04/23/2025 1:34 PM [place] DNR Form Date Activated Date Inactivated Comments 04/20/2025 12:58 AM 04/23/2025 5:19 PM Question Answer Comments ICU transfer: Yes Intubation: No Date Activated Date Inactivated Comments 04/20/2025 12:26 AM 04/20/2025 12:58 AM Date Activated Date Inactivated Comments 03/02/2023 3:44 PM 03/10/2023 4:12 PM Reason for Referral Status Reason Specialty Diagnoses / Procedures Referred By Contact Referred To Contact Pending Review Auto-Generated Referral CT IMAGING Diagnoses Intracranial hemorrhage (HCC) Procedures CT BRAIN WO IVCON CT SCAN HEAD/BRAIN Cheryl Zabala (Pa), PA [address] [place] [address] Ct Imaging Status Reason Specialty Diagnoses / Procedures Referred By Contact Referred To Contact Closed Auto-Generated Referral CT IMAGING Diagnoses Intracranial hemorrhage (HCC) Procedures CT BRAIN WO IVCON CT SCAN HEAD/BRAIN Cheryl Zabala (Pa), PA [address] [place] [address] Ct Imaging Specialty Diagnoses / Procedures Referred By Contac t Referred To Contact Neurology Diagnoses Bipolar 1 disorder, depressed, moderate (HCC) Procedures CONSULT TO NEUROLOGY OFFICE/OUTPATIENT [facility] 60-74 MINUTES Danny De La Cruz, WATER SYSTEMS DESIGNER.HEAD USHER [address] [address] Referral ID Status Reason Start Date Expiration Date Visits Requested Visits Authorized [id number] Authorized PCP Requested Referral 02/15/2022 02/15/2023 1 1 Specialty Diagnoses / Procedures Referred By Contac t Referred To Contact Radiology Diagnoses 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) Procedures CT cervical spine wo IV contrast Cee Biggs, WATER SYSTEMS DESIGNER - HEAD USHER [address] [place] [address] Referral ID Status Reason Start Date Expiration Date V isits Requested Visits Authorized [id number] Pending Review 12/07/2022 06/05/2023 1 1 Specialty Diagnoses / Procedures Referred By Contac t Referred To Contact Radiology Diagnoses Hand numbness Dizziness Procedures MR cervical spine wo contrast Cee Lobo [address] [place] [address] Referral ID Status Reason Start Date Expiration Date Visits Re quested Visits Authorized [id number] Closed 10/11/2022 04/09/2023 1 1 Specialty Diagnoses / Procedures Referred By Contac t Referred To Contact Radiology Diagnoses 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 [facility] [address] Imaging [facility] [place] [address] Referral ID Status Reason Start Date Expiration Date Visits Re quested Visits Authorized [id number] Closed 12/07/2022 06/05/2023 1 1 Specialty Diagnoses / Procedures Referred By Contac t Referred To Contact Jorge Portillo, WATER SYSTEMS DESIGNER - HEAD USHER [address] [place] [address] Referral ID Status Reason Start Date Expiration Date V isits Requested Visits Authorized [id number] Pending Review 1 1 Specialty Diagnoses / Procedures Referred By Contac t Referred To Contact CT IMAGING Diagnoses Aneurysm of ascending aorta without rupture (HCC) Diverticulitis Primary hypertension Disorder of artery or arteriole (HCC) Procedures CTA CHEST (GATED) W IVCON CT ANGIOGRAPHY CHEST W/CONTRAST/NONCONTRAST Michell Mathis MD [address] [place] [address] [place] [address] Referral ID Status Reason Start Date Expiration Date Visits Requested Visits Authorized [id number] Authorized Auto-Generat ed Referral 02/23/2024 03/24/2025 1 1 Specialty Diagnoses / Procedures Referred By Contac t Referred To Contact [facility] Diagnoses Aneurysm of ascending aorta without rupture (HCC) Diverticulitis Primary hypertension Disorder of artery or arteriole (HCC) Procedures ECHO ECHO TTHRC R-T 2D W/WOM-MODE COMPL SPEC&COLR D Michell Mathis MD [address] [place] [id number] [place] [phone] Referral ID Status Reason Start Date Expiration Date Visits Requested Visits Authorized [id number] Authorized Auto-Generat ed Referral 02/23/2024 02/22/2025 1 1 Specialty Diagnoses / Procedures Referred By Contac t Referred To Contact [facility] Diagnoses Aneurysm of ascending aorta without rupture (HCC) Diverticulitis Primary hypertension Disorder of artery or arteriole (HCC) Procedures ECG COMPLETE ECG ROUTINE ECG W/LEAST 12 LDS W/I&R Michell Mathis MD [address] [place] [address] [place] [phone] Referral ID Status Reason Start Date Expiration Date Visits Requested Visits Authorized [id number] Authorized Auto-Generat ed Referral 02/23/2024 02/22/2025 1 1 Specialty Diagnoses / Procedures Referred By Contac t Referred To Contact Cardiac Surg Diagnoses Aneurysm of ascending aorta without rupture (HCC) Diverticulitis Primary hypertension Disorder of artery or arteriole (HCC) Procedures CARDIOTHORACIC PREOP EVALUATION OFFICE/OUTPATIENT [facility] 60 MINUTES Michell Mathis MD [address] [phone] Referral ID Status Reason Start Date Expiration Date Visits Requested Visits Authorized [id number] Authorized PCP Requested Referral 02/23/2024 02/22/2025 1 1 Specialty Diagnoses / Procedures Referred By Contac t Referred To Contact Cardiology Diagnoses Aneurysm of ascending aorta without rupture (HCC) Diverticulitis Primary hypertension Disorder of artery or arteriole (HCC) Procedures CONSULT TO CARDIOLOGY OFFICE/OUTPATIENT [facility] MDM 60 MINUTES Michell Mathis MD [address] [facility] [place] [address] Referral ID Status Reason Start Date Expiration Date Visits Requested Visits Authorized [id number] Authorized PCP Requested Referral 02/23/2024 02/22/2025 1 1 Specialty Diagnoses / Procedures Referred By Contac t Referred To Contact CT IMAGING Diagnoses Disorder of artery or arteriole (HCC) Procedures CTA CHEST (GATED) W IVCON CT ANGIOGRAPHY CHEST W/CONTRAST/NONCONTRAST Jorge Zelaya MD [address] [place] [address] Ct Imaging [place] [address] Referral ID Status Reason Start Date Expiration Date Visits Requested Visits Authorized [id number] New Request Auto-Generat ed Referral 03/21/2024 04/20/2025 1 1 Specialty Diagnoses / Procedures Referred By Contac t Referred To Contact [facility] Diagnoses Dilatation of thoracic aorta (HCC) Preop cardiovascular exam Primary hypertension Coronary artery calcification Dyslipidemia Chronic kidney disease, unspecified CKD stage Aneurysm of ascending aorta without rupture (HCC) Diverticulitis Disorder of artery or arteriole (HCC) Dyspnea, unspecified type Procedures ECG COMPLETE ECG ROUTINE ECG W/LEAST 12 LDS W/I&R Jorge Zelaya MD [address] [place] [address] [address] Referral ID Status Reason Start Date Expiration Date Visits Requested Visits Authorized [id number] New Request Auto-Generat ed Referral 03/21/2024 03/21/2025 1 1 Specialty Diagnoses / Procedures Referred By Contac t Referred To Contact [facility] Procedures CARDIOVASCULAR MEDICINE OP FOLLOW UP APPT ORDER Jorge Zelaya MD [address] [place] [address] [address] Referral ID Status Reason Start Date Expiration Date Visits Requested Visits Authorized [id number] Ref Not Required PCP Requested Referral 12/21/2024 03/21/2025 1 1 Specialty Diagnoses / Procedures Referred By Contac t Referred To Contact Diagnoses Dilatation of thoracic aorta (HCC) Preop cardiovascular exam Primary hypertension Chronic kidney disease, unspecified CKD stage TATI (obstructive sleep apnea) Aneurysm of ascending aorta without rupture (HCC) Diverticulitis Disorder of artery or arteriole (HCC) Dyspnea, unspecified type Procedures CONSULT TO MEDICAL GENETICS - CARDIOVASCULAR OFFICE/OUTPATIENT [facility] 60 MINUTES MEDICAL GENETICS COUNSELING EACH 30 MINUTES Jorge Zelaya MD [address] [place] [phone] [place] [place] [address] Referral ID Status Reason Start Date Expiration Date Visits Requested Visits Authorized [id number] Pending Review PCP Requested Referral Auto-Generate d Referral 03/21/2024 03/21/2025 1 1 Specialty Diagnoses / Procedures Referred By Consuelo slater Referred To Contact CT IMAGING Diagnoses Aneurysm of ascending aorta without rupture (HCC) Disorder of artery or arteriole (HCC) Procedures CTA CHEST (GATED) W IVCON CT ANGIOGRAPHY CHEST W/CONTRAST/NONCONTRAST Michell Mathis MD [address] [place] [address] Ct Imaging [place] [address] Referral ID Status Reason Start Date Expiration Date Visits Requested Visits Authorized [id number] New Request Auto-Generat ed Referral 04/03/2024 05/03/2025 1 1 Specialty Diagnoses / Procedures Referred By Consuelo slater Referred To Contact Cardiac Surg Diagnoses Aneurysm of ascending aorta without rupture (HCC) Disorder of artery or arteriole (HCC) Procedures CARDIOTHORACIC PREOP EVALUATION OFFICE/OUTPATIENT [facility] 60 MINUTES Michell Mathis MD [address] [phone] Referral ID Status Reason Start Date Expiration Date Visits Requested Visits Authorized [id number] Authorized PCP Requested Referral 04/03/2024 04/03/2025 1 1 Health Concerns Infection Onset Date Last Indicated Resolved Time COVID-19 Rule-Out 06/06/2020 06/06/2020 06/07/2020 3:39 AM EDT Infection Onset Date Last Indicated Resolved Time COVID-19 Rule-Out 02/28/2022 02/28/2022 02/28/2022 5:02 PM EDT Instructions * Patient Instructions* Tatiana Alvarez - 06/23/2020 10:[address] brain today demonstrates resolution of intracranial hemorrhage Ok to restart ASA as directed by your other physicians Follow up as needed documented in this encounter Summary Purpose Family History No Family History Records FoundNo Family History Records FoundNo Family History Records FoundNo Family History Records FoundNo Family History Records Found Chief Complaint and Reason for Visit Chief Complaint Admit Date LABWORK April 30, 2025 5: 30am LABWORK May 07, 2025 5:00am Additional Source Comments Source Comments (unrecognize d section and content) In the event this informatio n is protected by the Federal Confidentiality of Alcohol and Drug Abuse Patient Records regulations: The Federal rules restrict any use of the information to criminally investigate or prosecute any alcohol or drug abuse patient.[facility] the event this information is protected by the Federal Confidentiality of Alcohol and Drug Abuse Patient Records regulations: The Federal rules restrict any use of the information to criminally investigate or prosecute any alcohol or drug abuse patient.[facility] HospitalIn the event this information is protected by the Federal Confidentiality of Alcohol and Drug Abuse Patient Records regulations: The Federal rules restrict any use of the information to criminally investigate or prosecute any alcohol or drug abuse patient.[facility] HospitalIn the event this information is protected by the Federal Confidentiality of Alcohol and Drug Abuse Patient Records regulations: The Federal rules restrict any use of the information to criminally investigate or prosecute any alcohol or drug abuse patient.[facility] HospitalIn the event this information is protected by the Federal Confidentiality of Alcohol and Drug Abuse Patient Records regulations: The Federal rules restrict any use of the information to criminally investigate or prosecute any alcohol or drug abuse patient.[facility] HospitalIn the event this information is protected by the Federal Confidentiality of Alcohol and Drug Abuse Patient Records regulations: The Federal rules restrict any use of the information to criminally investigate or prosecute any alcohol or drug abuse patient.[facility] HospitalIn the event this information is protected by the Federal Confidentiality of Alcohol and Drug Abuse Patient Records regulations: The Federal rules restrict any use of the information to criminally investigate or prosecute any alcohol or drug abuse patient.[facility] HospitalIn the event this information is protected by the Federal Confidentiality of Alcohol and Drug Abuse Patient Records regulations: The Federal rules restrict any use of the information to criminally investigate or prosecute any alcohol or drug abuse patient.[facility] HospitalIn the event this information is protected by the Federal Confidentiality of Alcohol and Drug Abuse Patient Records regulations: The Federal rules restrict any use of the information to criminally investigate or prosecute any alcohol or drug abuse patient.[facility] HospitalIn the event this information is protected by the Federal Confidentiality of Alcohol and Drug Abuse Patient Records regulations: The Federal rules restrict any use of the information to criminally investigate or prosecute any alcohol or drug abuse patient.[facility] HospitalIn the event this information is protected by the Federal Confidentiality of Alcohol and Drug Abuse Patient Records regulations: The Federal rules restrict any use of the information to criminally investigate or prosecute any alcohol or drug abuse patient.[facility] HospitalIn the event this information is protected by the Federal Confidentiality of Alcohol and Drug Abuse Patient Records regulations: The Federal rules restrict any use of the information to criminally investigate or prosecute any alcohol or drug abuse patient.[facility] HospitalIn the event this information is protected by the Federal Confidentiality of Alcohol and Drug Abuse Patient Records regulations: The Federal rules restrict any use of the information to criminally investigate or prosecute any alcohol or drug abuse patient.[facility] HospitalIn the event this information is protected by the Federal Confidentiality of Alcohol and Drug Abuse Patient Records regulations: The Federal rules restrict any use of the information to criminally investigate or prosecute any alcohol or drug abuse patient.[facility] HospitalIn the event this information is protected by the Federal Confidentiality of Alcohol and Drug Abuse Patient Records regulations: The Federal rules restrict any use of the information to criminally investigate or prosecute any alcohol or drug abuse patient.[facility] HospitalIn the event this information is protected by the Federal Confidentiality of Alcohol and Drug Abuse Patient Records regulations: The Federal rules restrict any use of the information to criminally investigate or prosecute any alcohol or drug abuse patient.[facility] HospitalIn the event this information is protected by the Federal Confidentiality of Alcohol and Drug Abuse Patient Records regulations: The Federal rules restrict any use of the information to criminally investigate or prosecute any alcohol or drug abuse patient.[facility] HospitalIn the event this information is protected by the Federal Confidentiality of Alcohol and Drug Abuse Patient Records regulations: The Federal rules restrict any use of the information to criminally investigate or prosecute any alcohol or drug abuse patient.[facility] HospitalIn the event this information is protected by the Federal Confidentiality of Alcohol and Drug Abuse Patient Records regulations: The Federal rules restrict any use of the information to criminally investigate or prosecute any alcohol or drug abuse patient.[facility] HospitalIn the event this information is protected by the Federal Confidentiality of Alcohol and Drug Abuse Patient Records regulations: The Federal rules restrict any use of the information to criminally investigate or prosecute any alcohol or drug abuse patient.[facility] HospitalIn the event this information is protected by the Federal Confidentiality of Alcohol and Drug Abuse Patient Records regulations: The Federal rules restrict any use of the information to criminally investigate or prosecute any alcohol or drug abuse patient.[facility] HospitalIn the event this information is protected by the Federal Confidentiality of Alcohol and Drug Abuse Patient Records regulations: The Federal rules restrict any use of the information to criminally investigate or prosecute any alcohol or drug abuse patient.[facility] HospitalIn the event this information is protected by the Federal Confidentiality of Alcohol and Drug Abuse Patient Records regulations: The Federal rules restrict any use of the information to criminally investigate or prosecute any alcohol or drug abuse patient.[facility] HospitalIn the event this information is protected by the Federal Confidentiality of Alcohol and Drug Abuse Patient Records regulations: The Federal rules restrict any use of the information to criminally investigate or prosecute any alcohol or drug abuse patient.[facility] HospitalIn the event this information is protected by the Federal Confidentiality of Alcohol and Drug Abuse Patient Records regulations: The Federal rules restrict any use of the information to criminally investigate or prosecute any alcohol or drug abuse patient.[facility] HospitalIn the event this information is protected by the Federal Confidentiality of Alcohol and Drug Abuse Patient Records regulations: The Federal rules restrict any use of the information to criminally investigate or prosecute any alcohol or drug abuse patient.[facility] HospitalIn the event this information is protected by the Federal Confidentiality of Alcohol and Drug Abuse Patient Records regulations: The Federal rules restrict any use of the information to criminally investigate or prosecute any alcohol or drug abuse patient.[facility] HospitalIn the event this information is protected by the Federal Confidentiality of Alcohol and Drug Abuse Patient Records regulations: The Federal rules restrict any use of the information to criminally investigate or prosecute any alcohol or drug abuse patient.[facility] HospitalIn the event this information is protected by the Federal Confidentiality of Alcohol and Drug Abuse Patient Records regulations: The Federal rules restrict any use of the information to criminally investigate or prosecute any alcohol or drug abuse patient.[facility] HospitalIn the event this information is protected by the Federal Confidentiality of Alcohol and Drug Abuse Patient Records regulations: The Federal rules restrict any use of the information to criminally investigate or prosecute any alcohol or drug abuse patient.[facility] HospitalIn the event this information is protected by the Federal Confidentiality of Alcohol and Drug Abuse Patient Records regulations: The Federal rules restrict any use of the information to criminally investigate or prosecute any alcohol or drug abuse patient.[facility] HospitalIn the event this information is protected by the Federal Confidentiality of Alcohol and Drug Abuse Patient Records regulations: The Federal rules restrict any use of the information to criminally investigate or prosecute any alcohol or drug abuse patient.[facility] HospitalIn the event this information is protected by the Federal Confidentiality of Alcohol and Drug Abuse Patient Records regulations: The Federal rules restrict any use of the information to criminally investigate or prosecute any alcohol or drug abuse patient.[facility] HospitalIn the event this information is protected by the Federal Confidentiality of Alcohol and Drug Abuse Patient Records regulations: The Federal rules restrict any use of the information to criminally investigate or prosecute any alcohol or drug abuse patient.[facility] HospitalIn the event this information is protected by the Federal Confidentiality of Alcohol and Drug Abuse Patient Records regulations: The Federal rules restrict any use of the information to criminally investigate or prosecute any alcohol or drug abuse patient.[facility] HospitalIn the event this information is protected by the Federal Confidentiality of Alcohol and Drug Abuse Patient Records regulations: The Federal rules restrict any use of the information to criminally investigate or prosecute any alcohol or drug abuse patient.[facility] HospitalIn the event this information is protected by the Federal Confidentiality of Alcohol and Drug Abuse Patient Records regulations: The Federal rules restrict any use of the information to criminally investigate or prosecute any alcohol or drug abuse patient.[facility] HospitalIn the event this information is protected by the Federal Confidentiality of Alcohol and Drug Abuse Patient Records regulations: The Federal rules restrict any use of the information to criminally investigate or prosecute any alcohol or drug abuse patient.[facility] [facility] HospitalIn the event this information is protected by the Federal Confidentiality of Alcohol and Drug Abuse Patient Records regulations: The Federal rules restrict any use of the information to criminally investigate or prosecute any alcohol or drug abuse patient.[facility] HospitalIn the event this information is protected by the Federal Confidentiality of Alcohol and Drug Abuse Patient Records regulations: The Federal rules restrict any use of the information to criminally investigate or prosecute any alcohol or drug abuse patient.[facility] HospitalIn the event this information is protected by the Federal Confidentiality of Alcohol and Drug Abuse Patient Records regulations: The Federal rules restrict any use of the information to criminally investigate or prosecute any alcohol or drug abuse patient.[facility] HospitalIn the event this information is protected by the Federal Confidentiality of Alcohol and Drug Abuse Patient Records regulations: The Federal rules restrict any use of the information to criminally investigate or prosecute any alcohol or drug abuse patient.[facility] HospitalIn the event this information is protected by the Federal Confidentiality of Alcohol and Drug Abuse Patient Records regulations: The Federal rules restrict any use of the information to criminally investigate or prosecute any alcohol or drug abuse patient.[facility] HospitalIn the event this information is protected by the Federal Confidentiality of Alcohol and Drug Abuse Patient Records regulations: The Federal rules restrict any use of the information to criminally investigate or prosecute any alcohol or drug abuse patient.[facility] HospitalIn the event this information is protected by the Federal Confidentiality of Alcohol and Drug Abuse Patient Records regulations: The Federal rules restrict any use of the information to criminally investigate or prosecute any alcohol or drug abuse patient.[facility] HospitalIn the event this information is protected by the Federal Confidentiality of Alcohol and Drug Abuse Patient Records regulations: The Federal rules restrict any use of the information to criminally investigate or prosecute any alcohol or drug abuse patient.[facility] HospitalIn the event this information is protected by the Federal Confidentiality of Alcohol and Drug Abuse Patient Records regulations: The Federal rules restrict any use of the information to criminally investigate or prosecute any alcohol or drug abuse patient.[facility] HospitalIn the event this information is protected by the Federal Confidentiality of Alcohol and Drug Abuse Patient Records regulations: The Federal rules restrict any use of the information to criminally investigate or prosecute any alcohol or drug abuse patient.[facility] HospitalIn the event this information is protected by the Federal Confidentiality of Alcohol and Drug Abuse Patient Records regulations: The Federal rules restrict any use of the information to criminally investigate or prosecute any alcohol or drug abuse patient.[facility] HospitalIn the event this information is protected by the Federal Confidentiality of Alcohol and Drug Abuse Patient Records regulations: The Federal rules restrict any use of the information to criminally investigate or prosecute any alcohol or drug abuse patient.[facility] HospitalIn the event this information is protected by the Federal Confidentiality of Alcohol and Drug Abuse Patient Records regulations: The Federal rules restrict any use of the information to criminally investigate or prosecute any alcohol or drug abuse patient.[facility] HospitalIn the event this information is protected by the Federal Confidentiality of Alcohol and Drug Abuse Patient Records regulations: The Federal rules restrict any use of the information to criminally investigate or prosecute any alcohol or drug abuse patient.[facility] HospitalIn the event this information is protected by the Federal Confidentiality of Alcohol and Drug Abuse Patient Records regulations: The Federal rules restrict any use of the information to criminally investigate or prosecute any alcohol or drug abuse patient.[facility] HospitalIn the event this information is protected by the Federal Confidentiality of Alcohol and Drug Abuse Patient Records regulations: The Federal rules restrict any use of the information to criminally investigate or prosecute any alcohol or drug abuse patient.[facility] HospitalIn the event this information is protected by the Federal Confidentiality of Alcohol and Drug Abuse Patient Records regulations: The Federal rules restrict any use of the information to criminally investigate or prosecute any alcohol or drug abuse patient.[facility] HospitalIn the event this information is protected by the Federal Confidentiality of Alcohol and Drug Abuse Patient Records regulations: The Federal rules restrict any use of the information to criminally investigate or prosecute any alcohol or drug abuse patient.[facility] HospitalIn the event this information is protected by the Federal Confidentiality of Alcohol and Drug Abuse Patient Records regulations: The Federal rules restrict any use of the information to criminally investigate or prosecute any alcohol or drug abuse patient.[facility] HospitalIn the event this information is protected by the Federal Confidentiality of Alcohol and Drug Abuse Patient Records regulations: The Federal rules restrict any use of the information to criminally investigate or prosecute any alcohol or drug abuse patient.[facility] HospitalIn the event this information is protected by the Federal Confidentiality of Alcohol and Drug Abuse Patient Records regulations: The Federal rules restrict any use of the information to criminally investigate or prosecute any alcohol or drug abuse patient.[facility] HospitalIn the event this information is protected by the Federal Confidentiality of Alcohol and Drug Abuse Patient Records regulations: The Federal rules restrict any use of the information to criminally investigate or prosecute any alcohol or drug abuse patient.[facility] HospitalIn the event this information is protected by the Federal Confidentiality of Alcohol and Drug Abuse Patient Records regulations: The Federal rules restrict any use of the information to criminally investigate or prosecute any alcohol or drug abuse patient.[facility] HospitalIn the event this information is protected by the Federal Confidentiality of Alcohol and Drug Abuse Patient Records regulations: The Federal rules restrict any use of the information to criminally investigate or prosecute any alcohol or drug abuse patient.[facility] HospitalIn the event this information is protected by the Federal Confidentiality of Alcohol and Drug Abuse Patient Records regulations: The Federal rules restrict any use of the information to criminally investigate or prosecute any alcohol or drug abuse patient.[facility] HospitalIn the event this information is protected by the Federal Confidentiality of Alcohol and Drug Abuse Patient Records regulations: The Federal rules restrict any use of the information to criminally investigate or prosecute any alcohol or drug abuse patient.[facility] HospitalIn the event this information is protected by the Federal Confidentiality of Alcohol and Drug Abuse Patient Records regulations: The Federal rules restrict any use of the information to criminally investigate or prosecute any alcohol or drug abuse patient.[facility] HospitalIn the event this information is protected by the Federal Confidentiality of Alcohol and Drug Abuse Patient Records regulations: The Federal rules restrict any use of the information to criminally investigate or prosecute any alcohol or drug abuse patient.[facility] Reason for Visit (unrecogniz ed section and content) Reason Comments Refill Request Reason Comments Follow Up Hospital discharge Status Reason Specialty Diagnoses / Procedures Referred By Contact Referred To Contact Closed Auto-Generated Referral CT IMAGING Diagnoses Intracranial hemorrhage (HCC) Procedures CT BRAIN WO IVCON CT SCAN HEAD/BRAIN Cheryl Zabala (Pa), PA [address] [address] Ct Imaging Status Reason Specialty Diagnoses / Procedures Referred By Contact Referred To Contact Diagnoses Thyroid mass Procedures BX THYROID, LUIZ CUT BIOPSY THYROID [facility] [address] [place] [address] Reason Onset Date Comments Refill Request 08/04/2020 Reason Comments Results Status Reason Specialty Diagnoses / Procedures Referred By Contact Referred To Contact Closed CARD LAB [facility] Diagnoses r55 syncope i35.0 Procedures TTE W/DOPPLER, COMPLETE ECHO WITHOUT CONTRAST Kenia Jama [address] [place] [address] Card Lab [facility] [address] [place] [address] 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 Reason Comments Question from lab Veracyte testing Reason Comments Medication Problem RX Clarification Reason Comments Refill Request Breo Reason Comments ED Follow-up Falls x 5 in 1 week Reason Comments Bipolar Disorder Depression Anxiety Reason Comments Depression Anxiety Reason Comments Follow Up Muliple falls Reason Comments Patient Update Reason Comments Forms Reason Comments Thyroid Problem Reason Comments Opened In Error Reason Onset Date Comments Transition Of Care 03/11/2022 SNF Update Reason Onset Date Comments Transition Of Care 03/18/2022 SNF Update Reason Onset Date Comments Transition Of Care 03/18/2022 [place] 03/03-03/17/22 Transerred to [facility] Reason Comments Scheduling Reason Comments Anxiety Reason Onset Date Comments Population Health Navigation Outreach 05/26/2022 [facility]- Needs PCP Verified Reason Comments Psychiatric Problem Reason Comments New Patient CERVICAL SPINE Specialty Diagnoses / Procedures Referred By Consuelo t Referred To Contact Neurosurgery Diagnoses 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 [address] [place] [address] Referral ID Status Reason Start Date Expiration Date Visits Re quested Visits Authorized [id number] Closed 12/07/2022 06/05/2023 1 1 Specialty Diagnoses / Procedures Referred By Consuelo t Referred To Contact Diagnoses Disease of spinal cord, unspecified (HCC) Disease of spinal cord, unspecified (HCC) [G95.9] Procedures KS ARTHRD ANT INTERBODY DECOMPRESS CERVICAL BELW C2 KS ARTHRD ANT INTERDY CERVCL BELW C2 EA ADDL NTRSPC [place] ANTERIOR INSTRUMENTATION 4-7 VERTEBRAL SEGMENTS C3-C6 ANTERIOR CERVICAL DECOMPRESSION, FUSION Alonso Mcgill MD [address] [place] [address] [address] [place] [address] Referral ID Status Reason Start Date Expiration Date Visits Re quested Visits Authorized [id number] 1 1 Reason Comments Skin Problem Redness to left uppe r arm Reason Comments Follow-up Three months follow up Reason Comments Rectal Bleeding Abdominal Cramping Reason Comments Appointment Reason Comments Insurance Authorization Reason Comments Referral Information New Patient Evaluation Reason Comments Recheck EGD- Dysphagia Reason Comments Consult Specialty Diagnoses / Procedures Referred By Contac t Referred To Contact Cardiac Surg Diagnoses Aneurysm of ascending aorta without rupture (HCC) Diverticulitis Primary hypertension Disorder of artery or arteriole (HCC) Procedures CARDIOTHORACIC PREOP EVALUATION OFFICE/OUTPATIENT [facility] 60 MINUTES Michell Mathis MD [address] [place] [id number] Referral ID Status Reason Start Date Expiration Date V isits Requested Visits Authorized [id number] Closed PCP Requested Referral 02/23/2024 02/22/2025 1 1 Reason Comments Consult TAA Pre-Op Exam Specialty Diagnoses / Procedures Referred By Contac t Referred To Contact Cardiology Diagnoses Aneurysm of ascending aorta without rupture (HCC) Diverticulitis Primary hypertension Disorder of artery or arteriole (HCC) Procedures CONSULT TO CARDIOLOGY OFFICE/OUTPATIENT [facility] 60 MINUTES Michell Mathis MD [address] [place] [phone] Referral ID Status Reason Start Date Expiration Date V isits Requested Visits Authorized [id number] Closed PCP Requested Referral 02/23/2024 02/22/2025 [address] Specialty Diagnoses / Procedures Referred By Contac t Referred To Contact CT IMAGING Diagnoses Aneurysm of ascending aorta without rupture (HCC) Diverticulitis Primary hypertension Disorder of artery or arteriole (HCC) Procedures CTA CHEST (GATED) W IVCON CT ANGIOGRAPHY CHEST W/CONTRAST/NONCONTRAST Michell Mathis MD [address] [facility] [place] [id number] Ct Imaging [facility] Referral ID Status Reason Start Date Expiration Date Visits Requested Visits Authorized [id number] Authorized Auto-Generat ed Referral 02/23/2024 03/24/2025 1 1 Reason Comments Follow Up Reason Onset Date Comments Population Health Navigation Outreach 07/31/2024 [facility] Attributed Member - Chart Review Specialty Diagnoses / Procedures Referred By Consuelo t Referred To Contact Radiology Diagnoses Hand numbness Dizziness Procedures MR cervical spine wo contrast Cee Lobo [address] [place] [address] Referral ID Status Reason Start Date Expiration Date Visits Re quested Visits Authorized [id number] Closed 10/11/2022 04/09/2023 1 1 Reason Comments New Patient Extremity Weakness The patient states t hat she has been having issues with balance for 2-3 years. She has had falls. Specialty Diagnoses / Procedures Referred By Consuelo t Referred To Contact Cardiac Surg Diagnoses Aneurysm of ascending aorta without rupture (HCC) Disorder of artery or arteriole (HCC) Procedures CARDIOTHORACIC PREOP EVALUATION OFFICE/OUTPATIENT [facility] MDM 60 MINUTES Michell Mathis MD [address] [place] [phone] Referral ID Status Reason Start Date Expiration Date V isits Requested Visits Authorized [id number] Closed PCP Requested Referral 04/03/2024 04/03/2025 1 1 Specialty Diagnoses / Procedures Referred By Consuelo slater Referred To Contact CT IMAGING Diagnoses Aneurysm of ascending aorta without rupture (HCC) Disorder of artery or arteriole (HCC) Procedures CTA CHEST (GATED) W IVCON CT ANGIOGRAPHY CHEST W/CONTRAST/NONCONTRAST Michell Mathis MD [address] [place] [phone] [address] Imaging [facility] Referral ID Status Reason Start Date Expiration Date V isits Requested Visits Authorized [id number] Closed Auto-Generate d Referral 04/03/2024 05/03/2025 1 1 Reason Comments Hip Pain Right hip pain, + sh ortening after fall in bathroom Specialty Diagnoses / Procedures Referred By Contac t Referred To Contact Diagnoses Closed nondisplaced intertrochanteric fracture of right femur, initial encounter ([facility]) Closed displaced intertrochanteric fracture of right femur, initial encounter ([facility]) Procedures . Jacek Iniguez MD [address] [place] [address] Phone: tel: fax: [facility] Medical Surgical Unit [facility] [address] [place] [address] Phone: tel: Referral ID Status Reason Start Date Expiration Date Visits Re quested Visits Authorized [id number] Reason Comments Post-op IMN right fem 04/21 Telephone Encounter - Marija Daniels - 05/19/2020 1:25 PM EDTBrief Op Note - Romulo Thomas - 07/28/2020 8:57 AM ESTTelephone Encounter - Lexus Long - 08/05/2020 10:30 AM EST Miscellaneous Notes (unrecog nized section and content) Rx mail pharmacy faxed requesting the following refill. Pending Prescriptions Disp Refills TRAZODONE 50 MG TABLET 30 tablet 3 Sig: TAKE ONE TABLET BY MOUTH EVERY DAY AT BEDTIME DENNY: Yes Patient last appointment: Visit date not found Patient Phone numbers: [phone] (home) Request is for script(s) to be escript to pharmacy. Marija Daniels documented in this encounter BRIEF OPERATIVE / PROCEDURE NOTE LOG ID: [id number] Surgery/Procedure Date: 07/28/2020 Incision/Procedure Start Time: Incision Close/Procedure End Time: Surgeon(s)/Proceduralist(s) and Installations Inspector(s): Surgeon(s) and Role: * Romulo Thomas - Primary No Additional Staff Procedure(s): Other (specify) - Ultrasound guided fine needle aspiration biopsy of right thyroid nodule and left supraclavicular lymph node Anesthesia: Local Findings: Utilizing US guidance 5 passes with a 21 g Sonopsy FNA biopsy needle were performed of the left supra clavicular lymph node. The specimens were submitted for cytologic analysis and possible flow analysis. Utilizing US guidance 4 passes with a 21 g Sonopsy FNA biopsy needle were performed of the right thyroid nodule. The specimens were submitted for cytologic analysis and Veracyte analysis The patient tolerated the procedure well. No immediate complications were noted. The full report is located under Imaging in the Radiology report for the procedure. Estimated Blood Loss: 0 ml Specimens: 5 21 g FN aspirates from left lymph node and 4 21 g FN aspiates from right thyroid nodule Complications: None Pre-Op/Pre-Procedure Diagnosis: Multiple thyroid nodules, lymphadenopathy Post-Op/Post-Procedure Diagnosis: same The full report is located under Imaging in the Radiology report for the procedure. SIGNATURE: Romulo Thomas MD PATIENT NAME: Pily Barnes DATE: July 28, 2020 TIME: 8:57 AM PAGER/CONTACT #: [phone] documented in this encounter Patient is scheduled for 09.08.2020 Patient called requesting the following refill. Pending Prescriptions Disp Refills CLONAZEPAM 0.5 MG TABLET 10 tablet 0 Sig: Take 0.5 tablets by mouth twice daily for 10 days. Please follow up with your primary care doctor for additional medication. KHADRA Class: C-IV DENNY: No Patient last appointment: Visit date not found Patient Phone numbers: [phone] (home) Request is for script(s) to be escript to pharmacy. Lexus Long documented in this encounter Patient notified of result. Per patient, will come to the office to sign the Veracyte consent. Will call to r/s appt once talk to son, since son is the primary transportation. Chapin Grimes) Nicole LVM for pt to return call. Chapin (Titi) Rivera ----- Message from Efren Soria sent at 07/31/2020 12:42 PM EST ----- Results reviewed; please call patient with results - We should probably try to move her OV to about 4 wks to review final results and plans w/ her? (Any openings?) FINAL DIAGNOSIS A - THYROID RIGHT FINE NEEDLE ASPIRATION Suspicious for follicular neoplasm. See comment. Diagnosis Comment The clinician, Dr. Soria, has ordered a molecular evaluation. This specimen will be sent for Afirma testing. Please refer to the separate Afirma report for results and clinical recommendation documented in this encounter Pt notified. Will fax IR the FNA bx order. Chapin Rivera ----- Message from Efren Soria sent at 06/10/2020 9:22 AM EDT ----- Regarding: Biopsies, follow-up, probable surgery? 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 She will go home to recover, but she will call us for follow- up. She will need BILATERAL thyroid FNA biopsies (possibly w/ AFIRMA) AND also, FNA bx of her enlarged cervical lymph node (this was described on her CT scan). Planned OV to discuss findings in more detail when results available. She will likely need surgery at some point as well - OK to hold OR time if she doesn't want to wait a long time to go through the process, but there is really no urgency for her to have surgery yet. Please let me know if you or she has any other Qs? thanks documented in this encounter Patient called requesting the following refill. Pending Prescriptions Disp Refills INVEGA SUSTENNA 78 MG/0.5 ML INTRAMUSCULAR SYRINGE 0.5 mL 0 Sig: Inject 0.5 mL intramuscularly every 4 weeks. Due 02/03/20 DENNY: No Patient last appointment: Visit date not found Patient Phone numbers: [phone] (home) Request is for script(s) to be escript to pharmacy. 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 She has home health nurses and home health retirement. She is also getting physical therapy to help with her mobility. She thinks she is doing pretty well overall. "I get pretty tired quickly." She and her son did make an appointment to see a surgeon for her cataracts and for follow up on her thyroid. She thinks that her vision was a part of her problems in the fall. With her medications, she thinks her next invega injection is on the first of August as the times were adjusted, she has not changed any other medication except the addition of a stool softener. We will again follow up at her next appointment. Electronically signed by Danny Siddiqui (Oyster Grower.Retail Sales MerchandiserJohnathon De La Cruz at 07/14/2020 12:59 PM EST . Pily Barnes called today. : 1950 Allergies: Seasonal Allergies, Sulfa (Sulfonamide Antibiotics), and Sulfadiazine (home) [phone] (cell) Reason for call: Sanam for [facility] care teams called kenney Nascimento. She was inpatient at [facility] 10.3-10.14 and then moved to a rehab facility 10.14-10.. She is home now. She is using a walker, very unsteady on her feet. [facility] gave her a rx for Klonopin .5mg tablets that she was to cut in 1/2 and take twice daily. She is currently receiving in home therapy. If you have any questions please call Sanam at [phone] Patient last appointment: Visit date not found Pam Neil documented in this encounter INFORMATION SOURCE (unrecogn ized section and content) DATE CREATED AUTHOR 06/28/2021 [facility] DATE CREATED AUTHOR 'S ORGANIZ ATION 09/19/2024 [facility] DATE CREATED AUTHOR AUTHOR'S ORGANIZ ATION 01/08/2025 [facility] DATE CREATED AUTHOR AUTHOR'S ORGANIZ ATION 05/24/[address] [facility] DATE CREATED AUTHOR AUTHOR'S ORGANIZ ATION 07/12/2025 [facility] Care Teams (unrecognized sec tion and content) Medical Receptionist Assistant Relationship Specialty Start Date End Date Danny Laura MD [address] [place] [address] PCP - General Gerontology 01/21/21 Alyce Adler MD Endocrinology 12/29/20 Dr Martinez Psych/Mental Health 03/27/19 Medical Receptionist Assistant Relationship Specialty Start Date End Date Danny Laura MD [address] [place] [address] PCP - General Gerontology 01/21/21 Alyce Adler MD Endocrinology 12/29/20 Dr Martinez Psych/Mental Health 03/27/19 Medical Receptionist Assistant Relationship Specialty Start Date End Date Danny Laura MD [address] [place] [address] PCP - General Gerontology 01/21/21 Alyce Adler MD Endocrinology 12/29/20 Dr Martinez Psych/Mental Health 03/27/19 Medical Receptionist Assistant Relationship Specialty Start Date End Date Danny Laura MD [address] [place] [address] PCP - General Gerontology 01/21/21 Alyce Adler MD Endocrinology 12/29/20 Dr Martinez Psych/Mental Health 03/27/19 Medical Receptionist Assistant Relationship Specialty Start Date End Date Danny Laura MD [address] [place] [address] PCP - General Gerontology 01/21/21 Alyce Adler MD Endocrinology 12/29/20 Dr Martinez Psych/Mental Health 03/27/19 Medical Receptionist Assistant Relationship Specialty Start Date End Date Danny Laura MD [address] [place] [address] PCP - General Gerontology 01/21/21 Alyce Adler MD Endocrinology 12/29/20 Dr Martinez Psych/Mental Health 03/27/19 Medical Receptionist Assistant Relationship Specialty Start Date End Date Danny Laura MD [address] [place] [address] PCP - General Gerontology 01/21/21 Alyce Adler MD Endocrinology 12/29/20 Dr Martinez Psych/Mental Health 03/27/19 Medical Receptionist Assistant Relationship Specialty Start Date End Date Danny Laura MD [address] [place] [address] PCP - General Gerontology 01/21/21 Alyce Adler MD Endocrinology 12/29/20 Dr Martinez Psych/Mental Health 03/27/19 Medical Receptionist Assistant Relationship Specialty Start Date End Date Danny Laura MD [address] [place] [address] PCP - General Gerontology 01/21/21 Alyce Adler MD Endocrinology 12/29/20 Dr Martinez Psych/Mental Health 03/27/19 Medical Receptionist Assistant Relationship Specialty Start Date End Date Danny Laura MD [address] [place] [address] PCP - General Gerontology 01/21/21 Alyce Adler MD Endocrinology 12/29/20 Dr Martinez Psych/Mental Health 03/27/19 Medical Receptionist Assistant Relationship Specialty Start Date End Date Danny Laura MD [address] [place] [address] PCP - General Gerontology 01/21/21 Alyce Adler MD Endocrinology 12/29/20 Dr Martinez Psych/Mental Health 03/27/19 Medical Receptionist Assistant Relationship Specialty Start Date End Date Danny Laura MD [address] [place] [address] PCP - General Gerontology 01/21/21 Alyce Adler MD Endocrinology 12/29/20 Danny De La Cruz, WATER SYSTEMS DESIGNER.HEAD USHER [address] [place] [address] Referring Psychiatry 02/19/22 Dr Martinez Psych/Mental Health 03/27/19 Medical Receptionist Assistant Relationship Specialty Start Date End Date Danny Laura MD [address] [place] [address] PCP - General Gerontology 01/21/21 Alyce Adler MD Endocrinology 12/29/20 Danny De La Cruz, WATER SYSTEMS DESIGNER.HEAD USHER [address] [place] [address] Referring Psychiatry 02/19/22 Dr Martinez Psych/Mental Health 03/27/19 Medical Receptionist Assistant Relationship Specialty Start Date End Date Danny Laura MD [address] [place], [place] [id number] PCP - General Gerontology 01/21/21 Alyce Adler MD Endocrinology 12/29/20 Danny De La Cruz, WATER SYSTEMS DESIGNER.HEAD USHER [address] [facility] [address] [place] [address] Referring Psychiatry 02/19/22 Dr Martinez Psych/Mental Health 03/27/19 Medical Receptionist Assistant Relationship Specialty Start Date End Date Danny Laura MD [address] [place] [address] PCP - General Gerontology 01/21/21 Alyce Adler MD Endocrinology 12/29/20 Danny De La Cruz, WATER SYSTEMS DESIGNER.HEAD USHER [address] [place] [address] Referring Psychiatry 02/19/22 Dr Martinez Psych/Mental Health 03/27/19 Medical Receptionist Assistant Relationship Specialty Start Date End Date Danny Laura MD [address] [place] [address] PCP - General Gerontology 01/21/21 Alyce Adler MD Endocrinology 12/29/20 Danny De La Cruz, WATER SYSTEMS DESIGNER.HEAD USHER [address] [place], [place] [address] Referring Psychiatry 02/19/22 Soco Barrera, lab techSlot Technician 03/04/22 Dr Martinez Psych/Mental Health 03/27/19 Medical Receptionist Assistant Relationship Specialty Start Date End Date Danny Laura MD [address] [facility], [place] [id number] PCP - General Gerontology 01/21/21 Alyce Adler MD Endocrinology 12/29/20 Danny De La Cruz, WATER SYSTEMS DESIGNER.HEAD USHER [address] [facility] [address] [place] [address] Referring Psychiatry 02/19/22 Soco Barrera, lab techSlot Technician 03/04/22 Dr Martinez Psych/Mental Health 03/27/19 Medical Receptionist Assistant Relationship Specialty Start Date End Date Danny Laura MD [address] [place] [address] PCP - General Gerontology 01/21/21 Alyce Adler MD Endocrinology 12/29/20 Danny De La Cruz, WATER SYSTEMS DESIGNER.HEAD USHER [address] [place] [address] Referring Psychiatry 02/19/22 Soco Barrera, lab techSlot Technician 03/04/22 Dr Martinez Psych/Mental Health 03/27/19 Medical Receptionist Assistant Relationship Specialty Start Date End Date Danny Laura MD [address] [place] [address] PCP - General Gerontology 01/21/21 Alyce Adler MD Endocrinology 12/29/20 Danny De La Cruz, WATER SYSTEMS DESIGNER.HEAD USHER [address] [place], [place] [address] Referring Psychiatry 02/19/22 Dr Martinez Psych/Mental Health 03/27/19 Medical Receptionist Assistant Relationship Specialty Start Date End Date Danny Laura MD [address] [place], [place] [id number] PCP - General Gerontology 01/21/21 Alyce Adler MD Endocrinology 12/29/20 Danny De La Cruz, WATER SYSTEMS DESIGNER.HEAD USHER [address] [place] [address] Referring Psychiatry 02/19/22 Dr Martinez Psych/Mental Health 03/27/19 Medical Receptionist Assistant Relationship Specialty Start Date End Date Danny Laura MD [address] [place] [address] PCP - General Gerontology 01/21/21 Alyce Adler MD Endocrinology 12/29/20 Danny De La Cruz, WATER SYSTEMS DESIGNER.HEAD USHER [address] [place], [place] [address] [phone] Referring Psychiatry 02/19/22 Dr Martinez Psych/Mental Health 03/27/19 Medical Receptionist Assistant Relationship Specialty Start Date End Date Johnny Amaya [address] [place] [address] PCP - General Internal Medicine 05/27/22 Alyce Adler MD Endocrinology 12/29/20 Danny De La Cruz, WATER SYSTEMS DESIGNER.HEAD USHER [address] [facility] [address] [place], [place] [address] Referring Psychiatry 02/19/22 Dr Martinez Psych/Mental Health 03/27/19 Medical Receptionist Assistant Relationship Specialty Start Date End Date Johnny Amaya [address] [place], [place] [id number] PCP - General Internal Medicine 05/27/22 Alyce Adler MD Endocrinology 12/29/20 Danny De La Cruz, WATER SYSTEMS DESIGNER.HEAD USHER [address] [facility] [address] [place], [place] [id number] Referring Psychiatry 02/19/22 Dr Martinez Psych/Mental Health 03/27/19 Medical Receptionist Assistant Relationship Specialty Start Date End Date Kenia Mckenzie MD [address] [place] [phone] PCP - General 10/21/19 Medical Receptionist Assistant Relationship Specialty Start Date End Date Kenia Mckenzie MD [address] [place] [phone] PCP - General 10/21/19 Medical Receptionist Assistant Relationship Specialty Start Date End Date Kenia Mckenzie MD [address] [place] [phone] PCP - General 10/21/19 Medical Receptionist Assistant Relationship Specialty Start Date End Date Kenia Mckenzie MD [address] [place] [phone] PCP - General 10/21/19 Medical Receptionist Assistant Relationship Specialty Start Date End Date Kenia Mckenzie MD [address] [place] [phone] PCP - General 10/21/19 Medical Receptionist Assistant Relationship Specialty Start Date End Date Kenia Mckenzie MD [address] [place] [phone] PCP - General 10/21/19 Medical Receptionist Assistant Relationship Specialty Start Date End Date Kenia Mckenzie MD [address] [place] [phone] PCP - General 10/21/19 Medical Receptionist Assistant Relationship Specialty Start Date End Date Kenia Mckenzie MD [address] [place] [phone] PCP - General 10/21/19 Medical Receptionist Assistant Relationship Specialty Start Date End Date Kenia Mckenzie MD [address] [place] [phone] PCP - General 10/21/19 Medical Receptionist Assistant Relationship Specialty Start Date End Date Kenia Mckenzie MD [address] [place] [phone] PCP - General 10/21/19 Medical Receptionist Assistant Relationship Specialty Start Date End Date Ahsu Ricci [address] [place] [address] [place], [place] [phone] PCP - General Pain Management 06/13/23 Alyce Adler MD Endocrinology 12/29/20 Danny De La Cruz APRN.HEAD USHER [address] [place] [address] Referring Psychiatry 02/19/22 Dr Martinez Psych/Mental Health 03/27/19 Medical Receptionist Assistant Relationship Specialty Start Date End Date KeiryJamie craini [address] [place] [address] PCP - General Pain Management 06/13/23 Alyce Adler MD Endocrinology 12/29/20 Danny De La Cruz, WATER SYSTEMS DESIGNER.HEAD USHER [address] [place] [address] Referring Psychiatry 02/19/22 Dr Martinez Psych/Mental Health 03/27/19 Medical Receptionist Assistant Relationship Specialty Start Date End Date Keiry Ashu [address] [place] [address] PCP - General Pain Management 06/13/23 Alyce Adler MD Endocrinology 12/29/20 Danny De La Cruz, WATER SYSTEMS DESIGNER.HEAD USHER [address] [place] [address] Referring Psychiatry 02/19/22 Dr Martinez Psych/Mental Health 03/27/19 Medical Receptionist Assistant Relationship Specialty Start Date End Date Kenia Mckenzie MD [address] [place] [phone] PCP - General 10/21/19 Medical Receptionist Assistant Relationship Specialty Start Date End Date Ashu Ricci CNP [address] [place] [address] PCP - General Pain Management 06/13/23 Alyce Adler MD Endocrinology 12/29/20 Danny De La Cruz, WATER SYSTEMS DESIGNER.HEAD USHER [address] [place] [address] Referring Psychiatry 02/19/22 Dr Martinez Psych/Mental Health 03/27/19 Medical Receptionist Assistant Relationship Specialty Start Date End Date Ashu Ricci CNP [address] [place] [address] PCP - General Pain Management 06/13/23 Alyce Adler MD Endocrinology 12/29/20 Danny De La Cruz, WATER SYSTEMS DESIGNER.HEAD USHER [address] [place] [address] Referring Psychiatry 02/19/22 Michell Mathis MD [address] [facility] [address] Surgeon Cardiac Surg 02/21/24 Unspecified, Cardiac Surgeon - [address] [place] [address] Surgeon Cardiac Surg 02/21/24 Dr Martinez Psych/Mental Health 03/27/19 Medical Receptionist Assistant Relationship Specialty Start Date End Date Ashu Ricci CNP [address] [place] [address] PCP - General Pain Management 06/13/23 Alyce Adler MD Endocrinology 12/29/20 Danny De La Cruz, WATER SYSTEMS DESIGNER.HEAD USHER [address] [place] [address] Referring Psychiatry 02/19/22 Michell Mathis MD [address] [place] [address] Surgeon Cardiac Surg 02/21/24 Dr Martinez Psych/Mental Health 03/27/19 Medical Receptionist Assistant Relationship Specialty Start Date End Date Ashu Ricci CNP [address] [place] [address] PCP - General Pain Management 06/13/23 Alyce Adelr MD Endocrinology 12/29/20 Danny De La Cruz, WATER SYSTEMS DESIGNER.HEAD USHER [address] [place] [address] Referring Psychiatry 02/19/22 Michell Mathis MD [address] [place] [address] Surgeon Cardiac Surg 02/21/24 Dr Martinez Psych/Mental Health 03/27/19 Medical Receptionist Assistant Relationship Specialty Start Date End Date Ashu Ricci CNP [address] [place] [address] PCP - General Pain Management 06/13/23 Alyce Adler MD Endocrinology 12/29/20 Danny De La Cruz, WATER SYSTEMS DESIGNER.HEAD USHER [address] [place] [address] Referring Psychiatry 02/19/22 Michell Mathis MD [address] [place] [address] Surgeon Cardiac Surg 02/21/24 Jorge Zelaya MD [address] [place] [address] Primary Staff Physician Cardiology 03/21/24 Dr Martinez Psych/Mental Health 03/27/19 Medical Receptionist Assistant Relationship Specialty Start Date End Date Ashu Ricci CNP [address] [place] [address] PCP - General Pain Management 06/13/23 Alyce Adler MD Endocrinology 12/29/20 Danny De La Cruz, WATER SYSTEMS DESIGNER.HEAD USHER [address] [place] [address] Referring Psychiatry 02/19/22 Michell Mathis MD [address] [place] [address] Surgeon Cardiac Surg 02/21/24 Jorge Zelaya MD [address] [place] [address] Primary Staff Physician Cardiology 03/21/24 Dr Martinez Psych/Mental Health 03/27/19 Medical Receptionist Assistant Relationship Specialty Start Date End Date Ashu Ricci CNP [address] [place] [address] PCP - General Pain Management 06/13/23 Alyce Adler MD Endocrinology 12/29/20 Danny De La Cruz, WATER SYSTEMS DESIGNER.HEAD USHER [address] [place] [address] Referring Psychiatry 02/19/22 Michell Mathis MD [address] [place] [address] Surgeon Cardiac Surg 02/21/24 Jorge Zelaya MD [address] [place] [address] Primary Staff Physician Cardiology 03/21/24 Dr Martinez Psych/Mental Health 03/27/19 Medical Receptionist Assistant Relationship Specialty Start Date End Date Ashu Ricci CNP [address] [place] [address] PCP - General Pain Management 06/13/23 Alyce Adler MD Endocrinology 12/29/20 Danny De La Cruz, WATER SYSTEMS DESIGNER.HEAD USHER [address] [place] [address] Referring Psychiatry 02/19/22 Michell Mathis MD [address] [place] [address] Surgeon Cardiac Surg 02/21/24 Jorge Zelaya MD [address] [place] [address] Primary Staff Physician Cardiology 03/21/24 Dr Martinez Psych/Mental Health 03/27/19 Medical Receptionist Assistant Relationship Specialty Start Date End Date Ashu Ricci APRN.HEAD USHER [address] [place], [place] [address] PCP - General Pain Management 06/13/23 Alyce Adler MD Endocrinology 12/29/20 Danny De La Cruz APRN.HEAD USHER [address] [place] [address] Referring Psychiatry 02/19/22 Michell Mathis MD [address] [place] [address] Surgeon Cardiac Surg 02/21/24 Jorge Zelaya MD [address] [place] [address] Primary Staff Physician Cardiology 03/21/24 Kendy Arrington MD 1945 [facility] [place], [place] [address] Elect Equip Maint Eng Family Medicine 07/15/24 Sandra Gutierrez PA-C 1945 [facility] [address] [place], [place] [id number] Elect Equip Maint Eng Family Medicine 07/15/24 Dr Martinez Psych/Mental Health 03/27/19 Medical Receptionist Assistant Relationship Specialty Start Date End Date Kenia Mckenzie MD [address] [place] [address] PCP - General 10/21/19 Medical Receptionist Assistant Relationship Specialty Start Date End Date Kenia Mckenzie MD [address] [place] [address] PCP - General 10/21/19 Medical Receptionist Assistant Relationship Specialty Start Date End Date Ashu Ricci, WATER SYSTEMS DESIGNER.HEAD USHER [address] [place], [place] [id number] PCP - General Pain Management 06/13/23 Alyce Alder MD Endocrinology 12/29/20 Danny De La Cruz APRN.HEAD USHER [address] [facility] [address] [place], [place] [address] Referring Psychiatry 02/19/22 Michell Mathis MD [address] [place], [place] [address] Surgeon Cardiac Surg 02/21/24 Jorge Zelaya MD [address] [place], [place] [id number] Primary Staff Physician Cardiology 03/21/24 Kendy Arrington MD 1945 [facility] [place], [place] [address] Elect Equip Maint Eng Family Medicine 07/15/24 Sandra Gutierrez PA-C 1945 [facility] [address] [place], [place] [address] Elect Equip Maint Eng Family Medicine 07/15/24 Dr Martinez Psych/Mental Health 03/27/19 Medical Receptionist Assistant Relationship Specialty Start Date End Date Ashu Ricci, WATER SYSTEMS DESIGNER.HEAD USHER [address] [place], [place] [address] PCP - General Pain Management 06/13/23 Alyce dAler MD Endocrinology 12/29/20 Danny De La Cruz WATER SYSTEMS DESIGNER.HEAD USHER [address] [place], [place] [address] Referring Psychiatry 02/19/22 Michell Mathis MD [address] [place], [place] [address] Surgeon Cardiac Surg 02/21/24 Jorge Zelaya MD [address] [place] [address] Primary Staff Physician Cardiology 03/21/24 Kendy Arrington MD 1946 [facility] [place], [place] [address] Elect Equip Maint Eng Family Medicine 07/15/24 Sandra Gutierrez PA-C 1946 [facility] [address] [place], [place] [address] Elect Equip Maint Eng Family Medicine 07/15/24 Dr Martinez Psych/Mental Health 03/27/19 Medical Receptionist Assistant Relationship Specialty Start Date End Date Ashu Ricci, WATER SYSTEMS DESIGNER.HEAD USHER [address] [place] [address] PCP - General Pain Management 06/13/23 Alyce Adler MD Endocrinology 12/29/20 Danny De La Cruz APRN.[facility] [address] [facility] [address] [place] [address] Referring Psychiatry 02/19/22 Michell Mathis MD [address] [place], [place] [address] Surgeon Cardiac Surg 02/21/24 Jorge Zelaya MD [address] [place], [place] [address] Primary Staff Physician Cardiology 03/21/24 Kendy Arrington MD 1946 [facility] [place] [address] Elect Equip Maint Eng Family Medicine 07/15/24 Sandra Gutierrez PA-C 1946 [facility] [address] [place], [place] [phone] Elect Equip Maint Eng Family Medicine 07/15/24 Dr Martinez Psych/Mental Health 03/27/19 Team Status: Inactive Member Role/Relationship Status Dates Raffy HDZ Attending physician Active St art: April 30, 2025 End: April 30, 2025 Team Status: Active Member Role/Relationship Status Dates Raffy HDZ Attending physician Active St art: May 07, 2025 Team Status: Active Member Role/Relationship Status Dates Raffy HDZ Attending physician Active St art: June 19, 2025 Scheduled Active and Recently Administ ered Medications (unrecognized section and content) Medication Order 03/08/2023 03/09/2023 03/10/2023 acetaminophen (Tylenol) tablet 650 mg 650 mg, Oral, Every 6 hours, First dose on Buffy 03/02/23 at 1545, Phase II/On Unit 0546 (Given - Provider: Claritza Pinon RN)1152 (Given - Provider: Meagan Jurado, JOSELYN)1720 (Given - Provider: Meagan Jurado RN) 0000 (Not Given - Provider: Sherry Pathak RN - Reason: Other - Comment: Patient sleeping)0600 (Not Given - Provider: Sherry Pathak RN - Reason: Patient/family refused)1217 (Given - Provider: Anni Kirkpatrick RN)1800 (Not Given - Provider: Anni Kirkpatrick RN - Reason: Patient/family refused) 0000 (Not Given - Provider: Payton Ann RN - Reason: Patient/family refused)0600 (Not Given - Provider: Payton Ann RN - Reason: Patient/family refused)1138 (Given - Provider: Ila Price RN) amLODIPine (Norvasc) tablet 10 mg 10 mg, Oral, Daily, First dose (after last modification) on Mon03/08/23 at 0900, Phase II/On Unit, Hold if SP<120 0808 (Given - Provider: Meagan Jurado RN) 0905 (Given - Provider: Anni Kirkpatrick RN) 0822 (Given - Provider: Ila Price RN) ARIPiprazole (Abilify) tablet 5 mg 5 mg, Oral, Daily, First dose on Mon03/02/23 at 1545, Phase II/On Unit 0808 (Given - Provider: Meagan Jurado RN) 1027 (Given - Provider: Anni Kirkpatrick RN) 0823 (Given - Provider: Ila Price RN) buPROPion XL (Wellbutrin XL) 24 hr tablet 150 mg 150 mg, Oral, Daily, First dose on Mon03/02/23 at 1545, Phase II/On Unit, Do not crush, chew, or split. 0807 (Given - Provider: Meagan Jurado RN) 0905 (Given - Provider: Anni Kirkpatrick RN) 0823 (Given - Provider: Ila Price RN) cetirizine (ZyrTEC) tablet 10 mg 10 mg, Oral, Daily, First dose on Mon23 at 1615 0808 (Given - Provider: Meagan Jurado RN) 0905 (Given - Provider: Anni Kirkpatrick RN) 0824 (Given - Provider: Ila Price RN) docusate (Colace) 50 MG/5ML liquid 100 mg 100 mg, Oral, 2 times daily, First dose on Buffy 03/09/23 at 2100 2100 (Not Given - Provider: Payton Ann RN - Reason: Patient/family refused) 0900 (Not Given - Provider: Ila Price RN - Reason: Patient/family refused) docusate sodium (Colace) capsule 100 mg (CANCELED) 100 mg, Oral, 2 times daily, First dose on Buffy 03/02/23 at 2100, Phase II/On Unit, Bowel Regimen - for prevention of constipation. 0808 (Not Given - Provider: Meagan Jurado RN - Reason: Patient/family refused)1999 (Not Given - Provider: Sherry Pathak RN - Reason: Patient/family refused) 09 (Given - Provider: Anni Kirkpatrick RN) enoxaparin (Lovenox) syringe 40 mg 40 mg, SubCUTAneous, Every 24 hours scheduled (Daily), First dose on Mon03/05/23 at 1000, Indication of Use: Prophylaxis-DVT/PE, Indications: Prophylaxis of Venous Thromboembolism 0807 (Given - Provider: Meagan Jurado RN) 0905 (Given - Provider: Anni Kirkpatrick RN) 0824 (Given - Provider: Ila Price RN) FLUoxetine (PROzac) capsule 60 mg 60 mg, Oral, Daily, First dose on Buffy 03/02/23 at 1545, Phase II/On Unit 0807 (Given - Provider: Meagan Jurado RN) 0905 (Given - Provider: Anni Kirkpatrick RN) 0824 (Given - Provider: Ila Price RN) lamoTRIgine (LaMICtal) tablet 50 mg 50 mg, Oral, Daily, First dose on Buffy 03/02/23 at 1545, Phase II/On Unit 0808 (Given - Provider: Meagan Jurado RN) 0905 (Given - Provider: Anni Kirkpatrick RN) 0824 (Given - Provider: Ila Price, JOSELYN) lisinopril tablet 20 mg 20 mg, Oral, Daily, First dose on Buffy 03/02/23 at 1545, Phase II/On Unit 0807 (Given - Provider: Meagan Jurado RN) 09 (Given - Provider: Anni Kirkpatrick RN) 08 (Given - Provider: Ila Price RN) mometasone-formoterol (Dulera 100) 100-5 MCG/ACT inhaler 2 puff 2 puff, Inhalation, 2 times daily, First dose on Buffy 03/02/23 at 1999, Rinse mouth with water after use to reduce aftertaste and incidence of candidiasis. Do not swallow. 0807 (Given - Provider: Meagan Jurado RN)1999 (Not Given - Provider: Sherry Pathak RN - Reason: Patient/family refused) 905 (Given - Provider: Anni Kirkpatrick RN)2055 (Given - Provider: Payton Ann RN) 822 (Given - Provider: Ila Price RN) nystatin (Mycostatin) cream Topical, 2 times daily, First dose on Mon03/02/23 at 2100, Phase II/On Unit 09 (Not Given - Provider: Meagan Jurado RN - Reason: Patient/family refused)1999 (Not Given - Provider: Sherry Pathak RN - Reason: Patient/family refused) 899 (Not Given - Provider: Anni Kirkpatrick RN - Reason: Patient/family refused)2099 (Not Given - Provider: Payton Ann RN - Reason: Patient/family refused) 09 (Not Given - Provider: Ila Price RN - Reason: Patient/family refused) polyethylene glycol (PEG) 3350 (Miralax) packet 17 g 17 g, Oral, Daily, First dose on Buffy 03/02/23 at 1545, Phase II/On Unit, Bowel Regimen - for prevention of constipation. 0807 (Not Given - Provider: Meagan Jurado RN - Reason: Patient/family refused) 904 (Given - Provider: Anni Kirkpatrick RN) 0900 (Not Given - Provider: Ila Price RN - Reason: Patient/family refused) sodium chloride 0.9% (NS) flush 10 mL 10 mL, IntraVENous, Every 12 hours scheduled (2 times per day), First dose on Buffy 03/02/23 at 2100, Phase II/On Unit 0900 (Not Given - Provider: Meagan Jurado RN - Reason: Other)1999 (Given - Provider: Sherry Pathak, JOSELYN) 0900 (Given - Provider: Anni Kirkpatrick RN)2055 (Given - Provider: Payton Ann RN) 0838 (Given - Provider: Ila Price RN) PRN Medication Order 03/08/2023 03/09/2023 03/10/2023 albuterol 108 (90 Base) MCG/ACT inhaler 2 puff 2 puff, Inhalation, Every 4 hours PRN, wheezing, Starting on Buffy 03/02/23 at 1544, Phase II/On Unit bisacodyl (Dulcolax) EC tablet 5 mg 5 mg, Oral, Daily PRN, constipation, Starting on Buffy 03/02/23 at 1544, Phase II/On Unit, 1st line for treatment of constipation - give scheduled if no bowel movement in past 24 hours. Do not crush, chew, or split. bisacodyl (Dulcolax) suppository 10 mg 10 mg, Rectal, Daily PRN, constipation, Starting on Buffy 03/02/23 at 1544, Phase II/On Unit, 2nd line for treatment of constipation - give scheduled (in addition to 1st line agent) if no bowel movement in past 48 hours hydrALAZINE (Apresoline) injection 10 mg 10 mg, IntraVENous, Every 4 hours PRN, high blood pressure, for sbp>150, Starting on Mon03/07/23 at 1025 morphine sulfate (PF) injection 2 mg(Linked Group 1) 2 mg, IntraVENous, Every 2 hour PRN, moderate pain (4-6), Starting on Buffy 03/02/23 at 1544, Phase II/On Unit, If oral and IV narcotics ordered, use oral first and only use IV if oral is ineffective or cannot take oral. Do Not give oral and IV within 1 hour of each other unless specifically ordered. morphine sulfate (PF) injection 4 mg(Linked Group 1) 4 mg, IntraVENous, Every 2 hour PRN, severe pain (7-10), Starting on Buffy 03/02/23 at 1544, Phase II/On Unit, If oral and IV narcotics ordered, use oral first and only use IV if oral is ineffective or cannot take oral. Do Not give oral and IV within 1 hour of each other unless specifically ordered. ondansetron (Zofran) injection 4 mg(Linked Group 2) 4 mg, IntraVENous, Every 6 hours PRN, nausea, vomiting, Starting on Buffy 03/02/23 at 1544, Phase II/On Unit, 1st Line. Give IV if patient is unable to take orally. If inadequate response within 60 minutes, proceed to next-line agent or contact provider if no further options ordered. ondansetron ODT (Zofran-ODT) disintegrating tablet 4 mg(Linked Group 2) 4 mg, Oral, Every 8 hours PRN, nausea, vomiting, Starting on Buffy 03/02/23 at 1544, Phase II/On Unit, 1st Line. If inadequate response within 60 minutes, proceed to next-line agent or contact provider if no further options ordered. Patient should allow tablet to dissolve on tongue. Do not remove from blister pack until just before administering. oxyCODONE (Roxicodone) immediate release tablet 10 mg(Linked Group 3) 10 mg, Oral, Every 4 hours PRN, severe pain (7-10), Starting on Buffy 03/02/23 at 1544, Phase II/On Unit oxyCODONE (Roxicodone) immediate release tablet 5 mg(Linked Group 3) 5 mg, Oral, Every 4 hours PRN, moderate pain (4-6), Starting on Buffy 03/02/23 at 1544, Phase II/On Unit phenol (Chloraseptic) 1.4 % mouth/throat spray 1 spray 1 spray, Mouth/Throat, Every 2 hour PRN, sore throat, Starting on Buffy 03/02/23 at 1544, Phase II/On Unit, Instruct patient to spit out after 15 seconds. sodium chloride 0.9 % infusion 5-250 mL/hr, IntraVENous, PRN, if patient receiving piggyback infusions and maintenance fluids are not ordered OR KVO fluids to protect IV site / prevent frequent line interruptions/ long duration, Starting on Buffy 03/02/23 at 1544, Phase II/On Unit, For piggyback infusion, administer at same rate as piggyback for a total of 25 mL. Enter 25 mL into dose field and piggyback rate into rate field of order. If piggyback is infusing at a rate less than 100 mL/hr, enter 25 mL into dose field and 100 mL/hr into rate field of order. For KVO fluids, enter rate of 20 mL/hr or less into rate field of order. sodium chloride 0.9% (NS) flush 10 mL 10 mL, IntraVENous, PRN, line care, Starting on Buffy 03/02/23 at 1544, Phase II/On Unit, After every IV line use tiZANidine (Zanaflex) tablet 4 mg 4 mg, Oral, Every 8 hours PRN, muscle spasms, Starting on Buffy 03/02/23 at 1544, Phase II/On Unit Linked Groups Order Group 1: morphine sulfate (PF) injection 2 mgJump to med 2 mg, IntraVENous, Every 2 hour PRN, moderate pain (4-6), Starting on Buffy 03/02/23 at 1544, Phase II/On Unit
If oral and IV narcotics ordered, use oral first and only use IV if oral is ineffective or cannot take oral. Do Not give oral and IV within 1 hour of each other unless specifically ordered.
Or morphine sulfate (PF) injection 4 mgJump to med 4 mg, IntraVENous, Every 2 hour PRN, severe pain (7-10), Starting on Buffy 03/02/23 at 1544, Phase II/On Unit
If oral and IV narcotics ordered, use oral first and only use IV if oral is ineffective or cannot take oral. Do Not give oral and IV within 1 hour of each other unless specifically ordered.
Group 2: ondansetron ODT (Zofran-ODT) disintegrating tablet 4 mgJump to med 4 mg, Oral, Every 8 hours PRN, nausea, vomiting, Starting on Buffy 03/02/23 at 1544, Phase II/On Unit
1st Line. If inadequate response within 60 minutes, proceed to next-line agent or contact provider if no further options ordered. Patient should allow tablet to dissolve on tongue. Do not remove from blister pack until just before administering.
Or ondansetron (Zofran) injection 4 mgJump to med 4 mg, IntraVENous, Every 6 hours PRN, nausea, vomiting, Starting on Buffy 03/02/23 at 1544, Phase II/On Unit
1st Line. Give IV if patient is unable to take orally. If inadequate response within 60 minutes, proceed to next-line agent or contact provider if no further options ordered.
Group 3: oxyCODONE (Roxicodone) immediate release tablet 5 mgJump to med 5 mg, Oral, Every 4 hours PRN, moderate pain (4-6), Starting on Buffy 03/02/23 at 1544, Phase II/On Unit Or oxyCODONE (Roxicodone) immediate release tablet 10 mgJump to med 10 mg, Oral, Every 4 hours PRN, severe pain (7-10), Starting on Buffy 03/02/23 at 1544, Phase II/On Unit Scheduled Medication Order 05/23/2023 05/24/2023 05/25/2023 cephalexin (Keflex) capsule 500 mg (COMPLETED) 500 mg, Oral, Once, On Buffy 05/25/23 at 2255, For 1 dose, Suspected Indication (Select all that apply): Skin and Soft Tissue Infection 2257 (Given - Provid er: Sanam Perry RN) Scheduled Medication Order 12/14/2023 12/15/2023 12/16/2023 ondansetron (Zofran) injection 4 mg (COMPLETED) 4 mg, IntraVENous, Once, On 12/16/23 at 1515, For 1 dose 1522 (Given - Provid er: Eloisa Prasad RN) sodium chloride 0.9 % bolus 1,000 mL (COMPLETED) 1,000 mL, IntraVENous, at 1,000 mL/hr, Administer over 1 Hours, Once, On 12/16/23 at 1515, For 1 dose 1521 (New Bag - Prov ider: Eloisa Prasad RN)1621 (Stopped - Provider: Eloisa Prasad RN) Scheduled Medication Order 04/21/2025 04/22/2025 04/23/2025 amLODIPine (Norvasc) tablet 2.5 mg 2.5 mg, Oral, Daily, First dose on 04/20/25 at 0900 1250 (Not Given - Provider: Toshia Cespedes RN - Reason: NPO)1334 (NOV Hold - Provider: Automatic Transfer Provider - Reason: Patient not available)1628 (NOV Unhold - Provider: Automatic Transfer Provider) 0828 (Given - Provider: Toshai Cespedes RN) 0804 (Given - Provider: Danny Enciso, JOSELYN) ARIPiprazole (Abilify) tablet 5 mg 5 mg, Oral, Daily, First dose on 04/20/25 at 0900 1251 (Not Given - Provider: Toshia Cespedes RN - Reason: NPO)1334 (NOV Hold - Provider: Automatic Transfer Provider - Reason: Patient not available)1628 (NOV Unhold - Provider: Automatic Transfer Provider) 0828 (Given - Provider: Toshia Cespedes RN) 0804 (Given - Provider: Danny Enciso, JOSELYN) buPROPion XL (Wellbutrin XL) 24 hr tablet 300 mg 300 mg, Oral, Daily, First dose on 04/20/25 at 0900, Do not crush, chew, or split. 1251 (Not Given - Provider: Toshia Cespedes RN - Reason: NPO)1334 (NOV Hold - Provider: Automatic Transfer Provider - Reason: Patient not available)1628 ([facility] Unhold - Provider: Automatic Transfer Provider) 0830 (Given - Provider: Toshia Cespedes RN) 0804 (Given - Provider: Danny Enciso, JOSELYN) ceFAZolin (Ancef) 2,000 mg in sodium chloride 0.9 % 100 mL IVPB (COMPLETED) 2,000 mg, IntraVENous, at 200 mL/hr, Administer over 30 Minutes, Every 8 hours, First dose on Mon04/21/25 at 2200, For 2 doses, Mini-Bag Plus bag, Suspected Indication (Select all that apply): Surgical Prophylaxis 2055 (New Bag - Provider: Joy Townsend RN)2210 (Stopped - Provider: Joy Townsend RN) 05 (New Bag - Provider: Joy Townsend RN)0555 (Stopped - Provider: Joy Townsend RN) enoxaparin (Lovenox) syringe 40 mg 40 mg, SubCUTAneous, Every 24 hours scheduled (Daily), First dose on Mon04/22/25 at 1215, For 28 doses, Indication of Use: Post Op Hip, Indications: Prophylaxis of Venous Thromboembolism 1432 (Given - Provider: Toshia Cespedes RN) 0803 (Given - Provider: Danny Enciso, RN) FLUoxetine (PROzac) capsule 60 mg 60 mg, Oral, Daily, First dose on Mon04/20/25 at 0900 1251 (Not Given - Provider: Toshia Cespedes RN - Reason: NPO)1334 (NOV Hold - Provider: Automatic Transfer Provider - Reason: Patient not available)1628 (NOV Unhold - Provider: Automatic Transfer Provider) 0828 (Given - Provider: Toshia Cespedes RN) 0803 (Given - Provider: Danny Enciso RN) ipratropium-albuterol (Duo-Neb) 0.5-2.5 mg/3 mL nebulizer solution 3 mL (COMPLETED) 3 mL, Nebulization, Once, On Mon04/21/25 at 1545, For 1 dose, Recovery (only) 1547 (Given - Provider: Thea Virk RN) lamoTRIgine (LaMICtal) tablet 50 mg 50 mg, Oral, Daily, First dose on Mon04/20/25 at 0900 1251 (Not Given - Provider: Toshia Cespedes RN - Reason: NPO)1334 (NOV Hold - Provider: Automatic Transfer Provider - Reason: Patient not available)1628 (NOV Unhold - Provider: Automatic Transfer Provider) 0828 (Given - Provider: Toshia Cespedes RN) 0804 (Given - Provider: Danny Enciso, JOSELYN) losartan (Cozaar) tablet 100 mg 100 mg, Oral, Daily, First dose on Mon04/20/25 at 0900 1251 (Not Given - Provider: Toshia Cespedes RN - Reason: NPO)1334 (NOV Hold - Provider: Automatic Transfer Provider - Reason: Patient not available)1628 (NOV Unhold - Provider: Automatic Transfer Provider) 0828 (Given - Provider: Toshia Cespedes RN) 0803 (Given - Provider: Danny Enciso, JOSELYN) mometasone-formoterol (Dulera 200) 200-5 MCG/ACT inhaler 2 puff 2 puff, Inhalation, 2 times daily, First dose on 04/20/25 at 0000, Administer using an inhaler spacer. Rinse mouth with water after use to reduce aftertaste and incidence of candidiasis. Do not swallow. 1033 (Given - Provider: Toshia Cespedes RN)1334 (MAR Hold - Provider: Automatic Transfer Provider - Reason: Patient not available)162 (MAR Unhold - Provider: Automatic Transfer Provider)2054 (Given - Provider: Joy Townsend RN) 0831 (Given - Provider: Toshia Cespedes RN)2057 (Given - Provider: Shyann Rosario, RN) 08 (Given - Provider: Danny Enciso, JOSELYN) ondansetron (Zofran) injection 4 mg (COMPLETED) 4 mg, IntraVENous, Once, On 04/21/25 at 1245, For 1 dose, Preprocedure 1241 (Given - Provider: Danny Manzano, JOSELYN) rosuvastatin (Crestor) tablet 20 mg 20 mg, Oral, Nightly, First dose on Mon04/20/25 at 2100 0014 (Given - Provider: Chandni Ramos RN)1334 (NOV Hold - Provider: Automatic Transfer Provider - Reason: Patient not available)162 (MAR Unhold - Provider: Automatic Transfer Provider)2054 (Given - Provider: Joy Townsend RN) 2057 (Given - Provider: Shyann Rosario, RN) Continuous Medication Order 04/21/2025 04/22/2025 04/23/2025 dextrose 5 % and sodium chloride 0.9 % with KCl 20 mEq/L infusion (CANCELED) 125 mL/hr, IntraVENous, Continuous, Starting on Mon04/20/25 at 0015 0014 (New Bag - Provider: Chandni Ramos RN)0932 (New Bag - Provider: Toshia Cespedes, RN)2222 (New Bag - Provider: Joy Townsend RN) 0512 (Rate/Dose Verify - Provider: Joy Townsend RN)0622 (New Bag - Provider: Joy Townsend RN)1250 (Stopped - Provider: Toshia Cespedes, RN - Comment: [Order ends at this time. Document the following action when infusion is complete: Stopped]) PRN Medication Order 04/21/2025 04/22/2025 04/23/2025 acetaminophen (Tylenol) suppository 650 mg(Linked Group 1) 650 mg, Rectal, Every 6 hours PRN, fever, For temp greater than 100.4 F (38 C), Starting on 04/20/25 at 0025, Administer if oral route cannot be used. Maximum dose of acetaminophen is 4000 mg from all sources in 24 hours. 1334 ([facility] Hold - Provider: Automatic Transfer Provider - Reason: Patient not available)1628 ([facility] Unhold - Provider: Automatic Transfer Provider) 0803 (See Alternative - Provider: Danny Enciso, JOSELYN) acetaminophen (Tylenol) tablet 650 mg(Linked Group 1) 650 mg, Oral, Every 6 hours PRN, mild pain (1-3), fever, For temp greater than 100.4 F (38 C), Starting on 04/20/25 at 0025, Maximum dose of acetaminophen is 4000 mg from all sources in 24 hours. 1334 ([facility] Hold - Provider: Automatic Transfer Provider - Reason: Patient not available)1628 ([facility] Unhold - Provider: Automatic Transfer Provider) 0803 (Given - Provider: Danny Enciso, JOSELYN) methocarbamol (Robaxin) tablet 750 mg 750 mg, Oral, Every 8 hours PRN, muscle spasms, Starting on 04/20/25 at 0141 0014 (Given - Provider: Chandni Ramos RN)1334 ([facility] Hold - Provider: Automatic Transfer Provider - Reason: Patient not available)1628 ([facility] Unhold - Provider: Automatic Transfer Provider) morphine injection 4 mg 4 mg, IntraVENous, Every 3 hours PRN, severe pain (7-10), moderate pain (4-6), Starting on 04/19/25 at 2031, If oral and IV narcotics ordered, use oral first and only use IV if oral is ineffective or cannot take oral. Do Not give oral and IV within 1 hour of each other unless specifically ordered. 1334 ([facility] Hold - Provider: Automatic Transfer Provider - Reason: Patient not available)1628 ([facility] Unhold - Provider: Automatic Transfer Provider) naloxone (Narcan) injection 0.4 mg 0.4 mg, IntraVENous, Every 5 min PRN, opioid reversal, respiratory depression, Starting on 04/19/25 at 2033, +++ For RR <10, pinpoint pupils, over sedation for opioid reversal - MUST notify catalyst concentration operator provider immediately after first dose, may give IM or SQ if no IV access +++ 1334 ([facility] Hold - Provider: Automatic Transfer Provider - Reason: Patient not available)1628 ([facility] Unhold - Provider: Automatic Transfer Provider) ondansetron (Zofran) injection 4 mg 4 mg, IntraVENous, Every 4 hours PRN, nausea, vomiting, Starting on 04/20/25 at 0020 1334 ([facility] Hold - Provider: Automatic Transfer Provider - Reason: Patient not available)1628 ([facility] Unhold - Provider: Automatic Transfer Provider) 1013 (Given - Provider: Toshia Cespedes, RN) oxyCODONE (Roxicodone) immediate release tablet 5 mg 5 mg, Oral, Every 6 hours PRN, moderate pain (4-6), severe pain (7-10), Starting on 04/19/25 at 2032 0355 (Given - Provider: Chandni Ramos, RN)1334 ([facility] Hold - Provider: Automatic Transfer Provider - Reason: Patient not available)1628 ([facility] Unhold - Provider: Automatic Transfer Provider) 1011 (Given - Provider: Toshia Cespedes, RN)2203 (Given - Provider: Shyann Rosario, RN) 0803 (Given - Provider: Danny Enciso, JOSELYN) polyethylene glycol (PEG) 3350 (Miralax) packet 17 g 17 g, Oral, Daily PRN, constipation, Starting on 04/20/25 at 0025, 1st line for treatment of constipation - give scheduled if no bowel movement in past 24 hours. 1334 ([facility] Hold - Provider: Automatic Transfer Provider - Reason: Patient not available)1628 ([facility] Unhold - Provider: Automatic Transfer Provider) sodium chloride 0.9 % irrigation solution (CANCELED) As needed, Starting on 04/21/25 at 1227, Intraprocedure 1227 (Given - Provider: Rolando Beverly MD) sterile water irrigation solution (CANCELED) As needed, Starting on 04/21/25 at 1419, Intraprocedure 1419 (Given - Provider: Rolando Beverly MD - Comment: TECH TABLE) Linked Groups Order Group 1: acetaminophen (Tylenol) tablet 650 mgJump to med 650 mg, Oral, Every 6 hours PRN, mild pain (1-3), fever, For temp greater than 100.4 F (38 C), Starting on 04/20/25 at 0025, Maximum dose of acetaminophen is 4000 mg from all sources in 24 hours. Or acetaminophen (Tylenol) suppository 650 mgJump to med 650 mg, Rectal, Every 6 hours PRN, fever, For temp greater than 100.4 F (38 C), Starting on 04/20/25 at 0025, Administer if oral route cannot be used. Maximum dose of acetaminophen is 4000 mg from all sources in 24 hours. Inactive Administered Medications - up to 3 most recent administrations Administered Medications (un recognized section and content) Medication Order MAR Action Action Date Dose Rate Site lactated ringers iv infusion 30 mL/hr, INTRAVENOUS, CONTINUOUS, Starting on Mon11/14/23 at 0800, Until Mon11/14/23 at 0912, Preprocedure New Bag/Syringe/Bottle 11/14/2023 8:22 AM EDT 30 mL/hr 30 mL/hr Goals (unrecognized section and content) Goals may be documented in a n alternate section FOR RECORDS PERTAINING TO PATIENTS WHO ARE [...] BE BASED ON THE PRIMARY CLINICAL RECORDS. [employer] provides no warranty or guarantee of the accuracy or completeness of information in this document.
[2025-07-28 08:16] LABS: Hematocrit 37.8 % (37-47); Hemoglobin 11.9 g/dL (12.0-15.0); Mean Corp Hgb Conc 31.5 g/dL (32-36); Mean Corpuscular Volume 89.6 fL (81-99); Mean Platelet Vol. 9.7 fl (6.2-12.0); Platelet Count 193 K/mm3 (150-450); RBC Distribution Width CV 14.2 % (11.6-14.6); RBC Distribution Width SD 46.0 fl (35.1-43.9); Red Blood Count 4.22 M/mm3 (4.2-5.4); White Blood Count 5.0 K/mm3 (4.4-11.0)
[2025-07-28 08:28] LABS: Anion Gap 11 (5-15); BUN 17 mg/dL (4-19); BUN/Creat Ratio 20.3 RATIO (10-20); Calcium,Total 9.1 mg/dL (7.6-11.0); Carbon Dioxide 23.5 mmol/L (21.0-32.0); Chloride 106 mmol/L (98-108); Glucose 83 mg/dL (70-99); Potassium 4.1 mmol/L (3.3-5.1)
== END ==
LOC: OLS.SANC 05:00
PROVIDERS: Visit Provider Internal Medicine
DX: I10 Essential (primary) hypertension (principal); E78.5 Hyperlipidemia, unspecified
CPT/HCPCS: 36415; 80048; 85027

== ENCOUNTER → 2025-08-18 05:00 | Outpatient (REF) | payer MEDICARE, MEDICAID, SELFPAY ==
--- OUTSIDE RECORDS SUMMARY | 2025-08-18 03:45 | XMS RPT_ITS | CCD ---
Author Organization [facility] Inform ion Partnership [facility] Care Team Providers Care [employer] Driver Name Role Phone Kenia Mckenzie Primary Care Provider [phone] Farhana Schmitt MD, Alyce Unavailable Danny Laura MD Primary Care Provider Jono GENERAL ADMINISTRATOR.BOOKING OFFICER, Danny Siddiqui Unavailable Holly ALVES, Soco Luis E Unavailable Unavailable Farhana Schmitt MD, Alyce Unavailable Danny Laura MD Primary Care Provider [phone] Jono GENERAL ADMINISTRATOR.BOOKING OFFICER, Danny Chen Unavailable Jono GENERAL ADMINISTRATOR.BEATA, Danny Chen Unavailable Johnny Amaya Primary Care Provider Farhana Schmitt MD Alyce Unavailable Jono GENERAL ADMINISTRATOR.BEATA, Danny Chen Unavailable Johnny Amaya Primary Care Provider Kenia Mckenzie MD Primary Care Provider Kenia Mckenzie MD Primary Care Provider Farhana Schmitt MD, Alyce Unavailable Ashu Ricci Primary Care Provider Unavailable Primary Care Provider UnavailAshu Falcon CNP Primary Care Provider [phone] Delfina LAZAR, Michell Unavailable Unspecified, Cardiac Surgeon - Unavailable U kian Zelaya MD, Jorge Saldaña Unavailable Keiry GENERAL ADMINISTRATOR.BOOKING OFFICER, Ashu Primary Care Provider Murphy LAZAR Kendy Unavailable Matt LYNCH, Sandra Unavailable [phone] DELFINA, XIAOYING Referring Unavailable KEIRY, ASHU Primary Care Unavailable KEIRY, ASHU Primary Care Unavailable DELFINA, XIAOYING Referring Unavailable KEIRY, ASHU Primary Care Unavailable DELFINA, XIAOYING Attending Unavailable DELFINA, XIAOYING Referring Unavailable KEIRY, ASHU Primary Care Unavailable DELFINA, XIAOYING Referring Unavailable KEIRY, ASHU Primary Care Unavailable DELFINA, XIAOYING Referring Unavailable DELFINA, XIAOYING Referring Unavailable JORGE ZELAYA Attending Unavailable KEIRY, ASHU Primary Care Unavailable [...] extract Drug Allergy 2 Other: See Comments [facility] Sulfonamides (antibiotic) (2 sources) Sulfonamides (Antibiotic) Drug Allergy 8 Itching, Swelling [facility] (20 sources) Seasonal allergy; Translations: [SEASONAL ALLERGIES] Allergy to substance 8 Intolerance [facility] (20 sources) Sulfonamides (Antibiotic); Translations: [SULFA (SULFONAMIDE ANTIBIOTICS)] Drug Allergy 8 Itching [facility] (20 sources) sulfADIAZINE; Translations: [SULFADIAZINE] Drug Allergy 0 Swelling, Other: See Comments [facility] (20 sources) Sulfonamides (Antibiotic) Drug Allergy 8 Itching, Swelling [facility] (18 sources) Cow milk Propensity to adverse reactions 3 Other [facility] (15 sources) cow milk allergenic extract; Translations: [MILK] Drug Allergy 2 Other: See Comments [facility] Medications Current Medications Medication Drug Class(es) [...] mg/ml extended release suspension (15 sources) Uncompetitive D-qjcjgu-G-aspartate Receptor Antagonist, Sigma-1 Agonist Start: 08-24-2023 DELSYM [...] 2100, Phase II/On Unit nystatin (Mycost atin) 415446 UNIT/GM powder Apply 1 Application topically 2 [...] intertrochanteric fracture of right femur, initial encounter ([facility]) Take 1 tablet (5 mg) by mouth [...] MUSCLE EVERY FOUR WEEKS polyethylene glycol 3350 52268 mg powder for oral solution (6 sources) [...] Drug Class(es) Dates Sig (Normalized) Sig (Original) [id number] 200 actuat albuterol 0.09 mg/actuat metered dose [...] mouth daily. 09/23/2022 Active Start: 09-23-2022 FLUoxetine (VA [place]) 20 MG capsule Start: 10-18-2021 End: [...] 03/21/2024 03/21/2025 Active take 2 tablets by [facility] once daily losartan (Cozaar) 50 MG tablet [...] Start: 03-02-2023 End: 03-10-2023 5-250 mL/hr, IntraVENous, VA N, if patient receiving piggyback infusions and [...] coronary artery; Translations: [Atherosclerotic heart disease of [place] coronary artery without angina pectoris] Onset: 4 [...] 06-19-2025 Anion gap [Moles/Vol] 9 mmol/L - [facility] BUN/creatinine ratioOrdered By: Raffy Barillas on 06-19-2025 Urea nitrogen/Creatinine [Mass ratio] 21.7 mg/mg High 06-23 [facility] Basic Metabolic Profile (BMP )on 06-19-2025 BUN/CRE 21.7 RATIO High 06-23 [facility] Comment on above: Order Comment: 310.1 Performed By: #### L 500.2500, L100.0500 #### [facility] [address] [place], [address] Calcium [Mass/Vol] 9.0 mg/dL Normal 7.6-11.0 [facility] Comment on above: Order Comment: 310.1 Performed By: #### L 500.2500, L100.0500 #### [facility] [address] [place], [address] Chloride [Moles/Vol] 107 mmol/L Normal 98-108 [facility] Comment on above: Order Comment: 310.1 Performed By: #### L 500.2500, L100.0500 #### [facility] [address] [place], [address] CO2 [Moles/Vol] 23.8 mmol/L Normal 21.0-32.0 [facility] Comment on above: Order Comment: 310.1 Performed By: #### L 500.2500, L100.0500 #### [facility] [address] [place], [address] Creatinine [Mass/Vol] 0.70 mg/dL Normal 0.70-1.20 [facility] Comment on above: Order Comment: 310.1 Performed By: #### L 500.2500, L100.0500 #### [facility] [address] [place], [address] GAP 9 Normal 5-15 [facility] Comment on above: Order Comment: 310.1 Performed By: #### L 500.2500, L100.0500 #### [facility] [address] [place], [address] GFR/1.73 sq M.predicted among non-blacks MDRD (S/P/Bld) [Vol rate/Area] 91 mL/min/{1.73_m2} Normal >60 [facility] Comment on above: Order Comment: 310.1 Result Comment: mL/m in/1.73m2 CKD-EPI Creatinine Equation (2020) Performed By: #### L 500.2500, L100.0500 #### [facility] [address] [place], [address] Glucose [Mass/Vol] 87 mg/dL Normal 70-99 [facility] Comment on above: Order Comment: 310.1 Performed By: #### L 500.2500, L100.0500 #### [facility] [address] [place], [address] Potassium [Moles/Vol] 4.0 mmol/L Normal 3.3-5.1 [facility] Comment on above: Order Comment: 310.1 Performed By: #### L 500.2500, L100.0500 #### [facility] [address] [place], [address] Sodium [Moles/Vol] 139 mmol/L Normal 133-145 [facility] Comment on above: Order Comment: 310.1 Performed By: #### L 500.2500, L100.0500 #### [facility] [address] [place], [address] Urea nitrogen [Mass/Vol] 15 mg/dL Normal 4-19 [facility] Comment on above: Order Comment: 310.1 Performed By: #### L 500.2500, L100.0500 #### [facility] [address] [place], [address] CBC-Complete Blood Cnt No Di ffon 06-19-2025 Erythrocyte distribution width (RBC) [Ratio] 13.8 % Normal 11.6-14.6 [facility] Comment on above: Order Comment: 310.1 Performed By: #### L 500.2500, L100.0500 #### [facility] [address] [place], [address] Hematocrit (Bld) [Volume fraction] 37.2 % Normal 37-47 [facility] Comment on above: Order Comment: 310.1 Performed By: #### L 500.2500, L100.0500 #### [facility] [address] [place], [address] Hemoglobin (Bld) [Mass/Vol] 12.1 g/dL Normal 12.0-15.0 [facility] Comment on above: Order Comment: 310.1 Performed By: #### L 500.2500, L100.0500 #### [facility] [address] [place], [address] MCH (RBC) [Entitic mass] 29.3 pg Normal 27.0-32.0 [facility] Comment on above: Order Comment: 310.1 Performed By: #### L 500.2500, L100.0500 #### [facility] [address] [place], [address] MCHC (RBC) [Mass/Vol] 32.5 g/dL Normal 32-36 [facility] Comment on above: Order Comment: 310.1 Performed By: #### L 500.2500, L100.0500 #### [facility] [address] [place], [address] MCV (RBC) [Entitic vol] 90.1 fL Normal 81-99 [facility] Comment on above: Order Comment: 310.1 Performed By: #### L 500.2500, L100.0500 #### [facility] [address] [place], [address] Platelet mean volume (Bld) [Entitic vol] 9.6 fL Normal 6.2-12.0 [facility] Comment on above: Order Comment: 310.1 Performed By: #### L 500.2500, L100.0500 #### [facility] [address] [place], [address] Platelets (Bld) [#/Vol] 175 10*3/uL Normal 150-450 [facility] Comment on above: Order Comment: 310.1 Performed By: #### L 500.2500, L100.0500 #### [facility] [address] [place], [address] RBC (Bld) [#/Vol] 4.13 10*6/uL Low 4.2-5.4 [facility] Comment on above: Order Comment: 310.1 Performed By: #### L 500.2500, L100.0500 #### [facility] [address] [place], [address] RDW SD 45.3 fl High 35.1-43.9 [facility] Comment on above: Order Comment: 310.1 Performed By: #### L 500.2500, L100.0500 #### [facility] [address] [place], [address] WBC (Bld) [#/Vol] 5.4 10*3/uL Normal 4.4-11.0 [facility] Comment on above: Order Comment: 310.1 Performed By: #### L 500.2500, L100.0500 #### [facility] [address] [place], [address] Carbon dioxide, total [Moles /volume] in Central venous bloodOrdered By: Raffy Barillas on 06-19-2025 CO2 [Moles/Vol] 23.8 mmol/L 21.0-32.0 [facility] Chloride assayOrdered By: Arden Noriega on 06-19-2025 Chloride [Moles/Vol] 107 mmol/L 98-108 [facility] Erythrocyte distribution wid th ratioOrdered By: Raffy Barillas on 06-19-2025 Erythrocyte distribution width (RBC) [Ratio] 13.8 % 11.6-14.6 [facility] Erythrocyte distribution wid th standard deviationOrdered By: Raffy Barillas on 06-19-2025 Erythrocyte distribution width (RBC) [Ratio] 45.3 fl High 35.1-43.9 [facility] Glomerular filtration rate ( GFR) estimation/1.73 sq m using serum, plasma, or whole bOrdered By: Raffy Barillas on 06-19-2025 GFR/1.73 sq M.predicted among non-blacks MDRD (S/P/Bld) [Vol rate/Area] 91 mL/min/{1.73_m2} >60 [facility] Comment on above: mL/min/1.73m2 CKD-EP I Creatinine Equation (2020) Hematocrit Auto (Bld) [Volum e fraction]Ordered By: Raffy Barillas on 06-19-2025 Hematocrit (Bld) [Volume fraction] 37.2 % 37-47 [facility] Hemoglobin measurementOrdere d By: Raffy Barillas on 06-19-2025 Hemoglobin (Bld) [Mass/Vol] 12.1 g/dL 12.0-15.0 [facility] MCV (mean corpuscular volume ) determinationOrdered By: Raffy Barillas on 06-19-2025 MCV (RBC) [Entitic vol] 90.1 fL 81-99 [facility] Mean corpuscular hemoglobin (MCH) determinationOrdered By: Raffy Barillas on 06-19-2025 MCH (RBC) [Entitic mass] 29.3 pg 27.0-32.0 [facility] Mean corpuscular hemoglobin concentration (MCHC) determinationOrdered By: Raffy Barillas on 06-19-2025 MCHC (RBC) [Mass/Vol] 32.5 g/dL 32-36 [facility] Mean platelet volume determi nationOrdered By: Raffy Barillas on 06-19-2025 Platelet mean volume (Bld) [Entitic vol] 9.6 fL 6.2-12.0 [facility] Platelet countOrdered By: Arden Noriega on 06-19-2025 Platelets (Bld) [#/Vol] 175 10*3/uL 150-450 [facility] Potassium measurement (mass/ volume)Ordered By: Raffy Barillas on 06-19-2025 Potassium (Unsp spec) [Mass/Vol] 4.0 mmol/L 3.3-5.1 [facility] RBC Auto (Bld) [#/Vol]Ordere d By: Raffy Barillas on 06-19-2025 RBC (Bld) [#/Vol] 4.13 10*6/uL Low 4.2-5.4 [facility] Serum creatinine measurement (mass/volume)Ordered By: Raffy Barillas on 06-19-2025 Creatinine [Mass/Vol] 0.70 mg/dL 0.70-1.20 [facility] Serum glucose measurement (m ass/volume)Ordered By: Raffy Barillas on 06-19-2025 Glucose [Mass/Vol] 87 mg/dL 70-99 [facility] Serum or plasma calcium john urement (mass/volume)Ordered By: Raffy Barillas on 06-19-2025 Calcium [Mass/Vol] 9.0 mg/dL 7.6-11.0 [facility] Serum or plasma urea nitroge n measurement (mass/volume)Ordered By: Raffy Barillas on 06-19-2025 Urea nitrogen [Mass/Vol] 15 mg/dL 4-19 [facility] Sodium levelOrdered By: Joselito Barillas on 06-19-2025 Sodium [Moles/Vol] 139 mmol/L 133-145 [facility] White blood cell (WBC) count Ordered By: Raffy Barillas on 06-19-2025 WBC (Bld) [#/Vol] 5.4 10*3/uL 4.4-11.0 [facility] 37on 05-23-2025 37 WBAT XR in 6 weeks only if still having pain Normal [facility] Office Visiton 05-23-2025 Follow-up visit [id number] Pily Barnes Mauro 1950 F Date Provider Department Center 05/23/2025 [id number], [facility] OR None Family History Problem Relation Age of Onset Cancer Mother No Known Problems Father Family Status - Relation Status Age at Mother Father Level of Service:29609 [facility] FOLLOW UP VISIT RELATED TO ORIGINAL PX Reason for Visit and Comments: Post-op [483] - IMN right fem 04/21 Normal [facility] Progress Noteon 05-23-2025 Progress Note Subjective: Pily [...] intertrochanteric fracture of right femur, initial encounter ([facility]) Plan Pily will remain WBAT and focus [...] Juan CNP 05/23/2025 at 12:35 PM. Normal [facility] XR HIP 2 OR 3 VW RIGHTon XR HIP 2 OR 3 VW RIGHT 2v Right femur sh ow the nail remains in good position. The fracture is well-aligned and remains unchanged from immediate post-op films. Normal [facility] Anion gap in Serum or Plasma Ordered By: Raffy Barillas on 05-07-2025 Anion gap [Moles/Vol] 12 mmol/L - [facility] BUN/creatinine ratioOrdered By: Raffy Barillas on 05-07-2025 Urea nitrogen/Creatinine [Mass ratio] 17.5 mg/mg - [facility] Basic Metabolic Profile (BMP )on 05-07-2025 BUN/CRE 17.5 RATIO Normal 06-23 [facility] Comment on above: Order Comment: 310-1 Performed By: #### L 500.2500, L100.0500 #### [facility] [address] [place], [address] Calcium [Mass/Vol] 9.2 mg/dL Normal 7.6-11.0 [facility] Comment on above: Order Comment: 310-1 Performed By: #### L 500.2500, L100.0500 #### [facility] [address] [place], [address] Chloride [Moles/Vol] 106 mmol/L Normal 98-108 [facility] Comment on above: Order Comment: 310-1 Performed By: #### L 500.2500, L100.0500 #### [facility] [address] [place], [address] CO2 [Moles/Vol] 21.8 mmol/L Normal 21.0-32.0 [facility] Comment on above: Order Comment: 310-1 Performed By: #### L 500.2500, L100.0500 #### [facility] [address] [place], [address] Creatinine [Mass/Vol] 0.86 mg/dL Normal 0.70-1.20 [facility] Comment on above: Order Comment: 310-1 Performed By: #### L 500.2500, L100.0500 #### [facility] [address] [place], [address] GAP 12 Normal 5-15 [facility] Comment on above: Order Comment: 310-1 Performed By: #### L 500.2500, L100.0500 #### [facility] [address] [place], [address] GFR/1.73 sq M.predicted among non-blacks MDRD (S/P/Bld) [Vol rate/Area] 71 mL/min/{1.73_m2} Normal >60 [facility] Comment on above: Order Comment: 310-1 Result Comment: mL/m in/1.73m2 CKD-EPI Creatinine Equation (2020) Performed By: #### L 500.2500, L100.0500 #### [facility] [address] [place], [address] Glucose [Mass/Vol] 85 mg/dL Normal 70-99 [facility] Comment on above: Order Comment: 310-1 Performed By: #### L 500.2500, L100.0500 #### [facility] [address] [place], [address] Potassium [Moles/Vol] 4.1 mmol/L Normal 3.3-5.1 [facility] Comment on above: Order Comment: 310-1 Performed By: #### L 500.2500, L100.0500 #### [facility] [address] [place], [address] Sodium [Moles/Vol] 139 mmol/L Normal 133-145 [facility] Comment on above: Order Comment: 310-1 Performed By: #### L 500.2500, L100.0500 #### [facility] [address] [place], [address] Urea nitrogen [Mass/Vol] 15 mg/dL Normal 4-19 [facility] Comment on above: Order Comment: 310-1 Performed By: #### L 500.2500, L100.0500 #### [facility] [address] [place], [address] CBC-Complete Blood Cnt No Di ffon 05-07-2025 Erythrocyte distribution width (RBC) [Ratio] 14.2 % Normal 11.6-14.6 [facility] Comment on above: Order Comment: 310-1 Performed By: #### L 500.2500, L100.0500 #### [facility] [address] [place], [address] Hematocrit (Bld) [Volume fraction] 31.5 % Low 37-47 [facility] Comment on above: Order Comment: 310-1 Performed By: #### L 500.2500, L100.0500 #### [facility] [address] [place], [address] Hemoglobin (Bld) [Mass/Vol] 10.1 g/dL Low 12.0-15.0 [facility] Comment on above: Order Comment: 310-1 Performed By: #### L 500.2500, L100.0500 #### [facility] [address] [place], [address] MCH (RBC) [Entitic mass] 29.8 pg Normal 27.0-32.0 [facility] Comment on above: Order Comment: 310-1 Performed By: #### L 500.2500, L100.0500 #### [facility] [address] [place], [address] MCHC (RBC) [Mass/Vol] 32.1 g/dL Normal 32-36 [facility] Comment on above: Order Comment: 310-1 Performed By: #### L 500.2500, L100.0500 #### [facility] [address] [place], [address] MCV (RBC) [Entitic vol] 92.9 fL Normal 81-99 [facility] Comment on above: Order Comment: 310-1 Performed By: #### L 500.2500, L100.0500 #### [facility] [address] [place], [address] Platelet mean volume (Bld) [Entitic vol] 9.4 fL Normal 6.2-12.0 [facility] Comment on above: Order Comment: 310-1 Performed By: #### L 500.2500, L100.0500 #### [facility] [address] [place], [address] Platelets (Bld) [#/Vol] 271 10*3/uL Normal 150-450 [facility] Comment on above: Order Comment: 310-1 Performed By: #### L 500.2500, L100.0500 #### [facility] [address] [place], [address] RBC (Bld) [#/Vol] 3.39 10*6/uL Low 4.2-5.4 [facility] Comment on above: Order Comment: 310-1 Performed By: #### L 500.2500, L100.0500 #### [facility] [address] [place], [address] RDW SD 47.8 fl High 35.1-43.9 [facility] Comment on above: Order Comment: 310-1 Performed By: #### L 500.2500, L100.0500 #### [facility] [address] [place], [address] WBC (Bld) [#/Vol] 5.9 10*3/uL Normal 4.4-11.0 [facility] Comment on above: Order Comment: 310-1 Performed By: #### L 500.2500, L100.0500 #### [facility] [address] [place], [address] Carbon dioxide, total [Moles /volume] in Central venous bloodOrdered By: Raffy Barillas on 05-07-2025 CO2 [Moles/Vol] 21.8 mmol/L 21.0-32.0 [facility] Chloride assayOrdered By: Arden Noriega on 05-07-2025 Chloride [Moles/Vol] 106 mmol/L 98-108 [facility] Erythrocyte distribution wid th ratioOrdered By: Raffy Barillas on 05-07-2025 Erythrocyte distribution width (RBC) [Ratio] 14.2 % 11.6-14.6 [facility] Erythrocyte distribution wid th standard deviationOrdered By: Raffy Barillas on 05-07-2025 Erythrocyte distribution width (RBC) [Ratio] 47.8 fl High 35.1-43.9 [facility] Glomerular filtration rate ( GFR) estimation/1.73 sq m using serum, plasma, or whole bOrdered By: Raffy Barillas on 05-07-2025 GFR/1.73 sq M.predicted among non-blacks MDRD (S/P/Bld) [Vol rate/Area] 71 mL/min/{1.73_m2} >60 [facility] Comment on above: mL/min/1.73m2 CKD-EP I Creatinine Equation (2020) Hematocrit Auto (Bld) [Volum e fraction]Ordered By: Raffy Barillas on 05-07-2025 Hematocrit (Bld) [Volume fraction] 31.5 % Low 37-47 [facility] Hemoglobin measurementOrdere d By: Raffy Barillas on 05-07-2025 Hemoglobin (Bld) [Mass/Vol] 10.1 g/dL Low 12.0-15.0 [facility] MCV (mean corpuscular volume ) determinationOrdered By: Raffy Barillas on 05-07-2025 MCV (RBC) [Entitic vol] 92.9 fL 81-99 [facility] Mean corpuscular hemoglobin (MCH) determinationOrdered By: Raffy Barillas on 05-07-2025 MCH (RBC) [Entitic mass] 29.8 pg 27.0-32.0 [facility] Mean corpuscular hemoglobin concentration (MCHC) determinationOrdered By: Raffy Barillas on 05-07-2025 MCHC (RBC) [Mass/Vol] 32.1 g/dL 32-36 [facility] Mean platelet volume determi nationOrdered By: Raffy Barillas on 05-07-2025 Platelet mean volume (Bld) [Entitic vol] 9.4 fL 6.2-12.0 [facility] Platelet countOrdered By: Arden Noriega on 05-07-2025 Platelets (Bld) [#/Vol] 271 10*3/uL 150-450 [facility] Potassium measurement (mass/ volume)Ordered By: Raffy Barillas on 05-07-2025 Potassium (Unsp spec) [Mass/Vol] 4.1 mmol/L 3.3-5.1 [facility] RBC Auto (Bld) [#/Vol]Ordere d By: Raffy Barillas on 05-07-2025 RBC (Bld) [#/Vol] 3.39 10*6/uL Low 4.2-5.4 [facility] Serum creatinine measurement (mass/volume)Ordered By: Raffy Barillas on 05-07-2025 Creatinine [Mass/Vol] 0.86 mg/dL 0.70-1.20 [facility] Serum glucose measurement (m ass/volume)Ordered By: Raffy Barillas on 05-07-2025 Glucose [Mass/Vol] 85 mg/dL 70-99 [facility] Serum or plasma calcium john urement (mass/volume)Ordered By: Raffy Barillas on 05-07-2025 Calcium [Mass/Vol] 9.2 mg/dL 7.6-11.0 [facility] Serum or plasma urea nitroge n measurement (mass/volume)Ordered By: Raffy Barillas on 05-07-2025 Urea nitrogen [Mass/Vol] 15 mg/dL 4-19 [facility] Sodium levelOrdered By: Joselito Barillas on 05-07-2025 Sodium [Moles/Vol] 139 mmol/L 133-145 [facility] White blood cell (WBC) count Ordered By: Raffy Barillas on 05-07-2025 WBC (Bld) [#/Vol] 5.9 10*3/uL 4.4-11.0 [facility] Anion gap in Serum or Plasma Ordered By: Raffy Barillas on 04-30-2025 Anion gap [Moles/Vol] 9 mmol/L 5-15 [facility] BUN/creatinine ratioOrdered By: Raffy Barillas on 04-30-2025 Urea nitrogen/Creatinine [Mass ratio] 21.2 mg/mg High 10-20 [facility] Bilirubin, totalOrdered By: Raffy Barillas on 04-30-2025 Bilirubin [Mass/Vol] 0.68 mg/dL 0.00-1.30 [facility] CBC-Complete Blood Cnt No Di ffon 04-30-2025 Erythrocyte distribution width (RBC) [Ratio] 13.4 % Normal 11.6-14.6 [facility] Comment on above: Order Comment: 310-1 Performed By: #### L 500.4050, L501.9520, L100.0500 #### [facility] [address] [place], [place] [address], [address] Hematocrit (Bld) [Volume fraction] 29.5 % Low 37-47 [facility] Comment on above: Order Comment: 310-1 Performed By: #### L 500.4050, L501.9520, L100.0500 #### [facility] [address] [place], [address] Hemoglobin (Bld) [Mass/Vol] 9.5 g/dL Low 12.0-15.0 [facility] Comment on above: Order Comment: 310-1 Performed By: #### L 500.4050, L501.9520, L100.0500 #### [facility] [address] [place], [address] MCH (RBC) [Entitic mass] 29.8 pg Normal 27.0-32.0 [facility] Comment on above: Order Comment: 310-1 Performed By: #### L 500.4050, L501.9520, L100.0500 #### [facility] [address] [place], [address] MCHC (RBC) [Mass/Vol] 32.2 g/dL Normal 32-36 [facility] Comment on above: Order Comment: 310-1 Performed By: #### L 500.4050, L501.9520, L100.0500 #### [facility] [address] [place], [address] MCV (RBC) [Entitic vol] 92.5 fL Normal 81-99 [facility] Comment on above: Order Comment: 310-1 Performed By: #### L 500.4050, L501.9520, L100.0500 #### [facility] [address] [place], [address] Platelet mean volume (Bld) [Entitic vol] 9.6 fL Normal 6.2-12.0 [facility] Comment on above: Order Comment: 310-1 Performed By: #### L 500.4050, L501.9520, L100.0500 #### [facility] [address] [place], [address] Platelets (Bld) [#/Vol] 245 10*3/uL Normal 150-450 [facility] Comment on above: Order Comment: 310-1 Performed By: #### L 500.4050, L501.9520, L100.0500 #### [facility] [address] [place], [address] RBC (Bld) [#/Vol] 3.19 10*6/uL Low 4.2-5.4 [facility] Comment on above: Order Comment: 310-1 Performed By: #### L 500.4050, L501.9520, L100.0500 #### [facility] [address] [place], [address] RDW SD 45.8 fl High 35.1-43.9 [facility] Comment on above: Order Comment: 310-1 Performed By: #### L 500.4050, L501.9520, L100.0500 #### [facility] [address] [place], [address] WBC (Bld) [#/Vol] 6.4 10*3/uL Normal 4.4-11.0 [facility] Comment on above: Order Comment: 310-1 Performed By: #### L 500.4050, L501.9520, L100.0500 #### [facility] [address] [place], [address] Carbon dioxide, total [Moles /volume] in Central venous bloodOrdered By: Raffy Barillas on 04-30-2025 CO2 [Moles/Vol] 24.2 mmol/L 21.0-32.0 [facility] Chloride assayOrdered By: Arden Nroiega on 04-30-2025 Chloride [Moles/Vol] 105 mmol/L 98-108 [facility] Comprehensive Metabolic Prof ilon 04-30-2025 Albumin [Mass/Vol] 3.2 g/dL Low 3.4-4.8 [facility] Comment on above: Order Comment: 310-1 Performed By: #### L 500.4050, L501.9520, L100.0500 #### [facility] [address] [place], [address] Albumin/Globulin [Mass ratio] 1.3 {ratio} Normal 0.9-2.4 [facility] Comment on above: Order Comment: 310-1 Performed By: #### L 500.4050, L501.9520, L100.0500 #### [facility] [address] [place], [address] ALK PHOS 79 U/L Normal 35-104 [facility] Comment on above: Order Comment: 310-1 Performed By: #### L 500.4050, L501.9520, L100.0500 #### [facility] [address] [place], [address] ALT [Catalytic activity/Vol] 36 U/L High <=34 [facility] Comment on above: Order Comment: 310-1 Performed By: #### L 500.4050, L501.9520, L100.0500 #### [facility] [address] [place], [address] AST [Catalytic activity/Vol] 31 U/L Normal <=31 [facility] Comment on above: Order Comment: 310-1 Performed By: #### L 500.4050, L501.9520, L100.0500 #### [facility] [address] [place], [address] Bilirubin [Mass/Vol] 0.68 mg/dL Normal 0.00-1.30 [facility] Comment on above: Order Comment: 310-1 Performed By: #### L 500.4050, L501.9520, L100.0500 #### [facility] [address] [place], [address] BUN/CRE 21.2 RATIO High 10-20 [facility] Comment on above: Order Comment: 310-1 Performed By: #### L 500.4050, L501.9520, L100.0500 #### [facility] [address] [place], [address] Calcium [Mass/Vol] 9.0 mg/dL Normal 7.6-11.0 [facility] Comment on above: Order Comment: 310-1 Performed By: #### L 500.4050, L501.9520, L100.0500 #### [facility] [address] [place], [address] Chloride [Moles/Vol] 105 mmol/L Normal 98-108 [facility] Comment on above: Order Comment: 310-1 Performed By: #### L 500.4050, L501.9520, L100.0500 #### [facility] [address] [place], [address] CO2 [Moles/Vol] 24.2 mmol/L Normal 21.0-32.0 [facility] Comment on above: Order Comment: 310-1 Performed By: #### L 500.4050, L501.9520, L100.0500 #### [facility] [address] [place], [address] Creatinine [Mass/Vol] 0.79 mg/dL Normal 0.70-1.20 [facility] Comment on above: Order Comment: 310-1 Performed By: #### L 500.4050, L501.9520, L100.0500 #### [facility] [address] [place], [address] GAP 9 Normal 5-15 [facility] Comment on above: Order Comment: 310-1 Performed By: #### L 500.4050, L501.9520, L100.0500 #### [facility] [address] [place], [address] GFR/1.73 sq M.predicted among non-blacks MDRD (S/P/Bld) [Vol rate/Area] 79 mL/min/{1.73_m2} Normal >60 [facility] Comment on above: Order Comment: 310-1 Result Comment: mL/m in/1.73m2 CKD-EPI Creatinine Equation (2020) Performed By: #### L 500.4050, L501.9520, L100.0500 #### [facility] [address] [place], [address] Globulin (S) [Mass/Vol] 2.5 g/dL Normal 2.2-4.2 [facility] Comment on above: Order Comment: 310-1 Performed By: #### L 500.4050, L501.9520, L100.0500 #### [facility] [address] [place], [address] Glucose [Mass/Vol] 90 mg/dL Normal 70-99 [facility] Comment on above: Order Comment: 310-1 Performed By: #### L 500.4050, L501.9520, L100.0500 #### [facility] [address] [place], [address] Potassium [Moles/Vol] 3.9 mmol/L Normal 3.3-5.1 [facility] Comment on above: Order Comment: 310-1 Performed By: #### L 500.4050, L501.9520, L100.0500 #### [facility] [address] [place], [address] Sodium [Moles/Vol] 138 mmol/L Normal 133-145 [facility] Comment on above: Order Comment: 310-1 Performed By: #### L 500.4050, L501.9520, L100.0500 #### [facility] [address] [place], [address] T PROT 5.7 g/dL Low 5.9-8.4 [facility] Comment on above: Order Comment: 310-1 Performed By: #### L 500.4050, L501.9520, L100.0500 #### [facility] [address] [place], [address] Urea nitrogen [Mass/Vol] 17 mg/dL Normal 4-19 [facility] Comment on above: Order Comment: 310-1 Performed By: #### L 500.4050, L501.9520, L100.0500 #### [facility] [address] [place], [address] Erythrocyte distribution wid th ratioOrdered By: Raffy Barillas on 04-30-2025 Erythrocyte distribution width (RBC) [Ratio] 13.4 % 11.6-14.6 [facility] Erythrocyte distribution wid th standard deviationOrdered By: Raffy Barillas on 04-30-2025 Erythrocyte distribution width (RBC) [Ratio] 45.8 fl High 35.1-43.9 [facility] Glomerular filtration rate ( GFR) estimation/1.73 sq m using serum, plasma, or whole bOrdered By: Raffy Barillas on 04-30-2025 GFR/1.73 sq M.predicted among non-blacks MDRD (S/P/Bld) [Vol rate/Area] 79 mL/min/{1.73_m2} >60 [facility] Comment on above: mL/min/1.73m2 CKD-EP I Creatinine Equation (2020) Hematocrit Auto (Bld) [Volum e fraction]Ordered By: Raffy Barillas on 04-30-2025 Hematocrit (Bld) [Volume fraction] 29.5 % Low 37-47 [facility] Hemoglobin measurementOrdere d By: Raffy Barillas on 04-30-2025 Hemoglobin (Bld) [Mass/Vol] 9.5 g/dL Low 12.0-15.0 [facility] - Chemistry and C hemistry - challengeOrdered By: Raffy Barillas on 04-30-2025 AST [Catalytic activity/Vol] 31 U/L <32 [facility] MCV (mean corpuscular volume ) determinationOrdered By: Raffy Barillas on 04-30-2025 MCV (RBC) [Entitic vol] 92.5 fL 81-99 [facility] Mean corpuscular hemoglobin (MCH) determinationOrdered By: Raffy Barillas on 04-30-2025 MCH (RBC) [Entitic mass] 29.8 pg 27.0-32.0 [facility] Mean corpuscular hemoglobin concentration (MCHC) determinationOrdered By: Raffy Barillas on 04-30-2025 MCHC (RBC) [Mass/Vol] 32.2 g/dL 32-36 [facility] Mean platelet volume determi nationOrdered By: Raffy Barillas on 04-30-2025 Platelet mean volume (Bld) [Entitic vol] 9.6 fL 6.2-12.0 [facility] Platelet countOrdered By: Arden Noriega on 04-30-2025 Platelets (Bld) [#/Vol] 245 10*3/uL 150-450 [facility] Potassium measurement (mass/ volume)Ordered By: Raffy Barillas on 04-30-2025 Potassium (Unsp spec) [Mass/Vol] 3.9 mmol/L 3.3-5.1 [facility] RBC Auto (Bld) [#/Vol]Ordere d By: Raffy Barillas on 04-30-2025 RBC (Bld) [#/Vol] 3.19 10*6/uL Low 4.2-5.4 [facility] Serum creatinine measurement (mass/volume)Ordered By: Raffy Barillas on 04-30-2025 Creatinine [Mass/Vol] 0.79 mg/dL 0.70-1.20 [facility] Serum globulin measurementOr dered By: Raffy Barillas on 04-30-2025 Globulin (S) [Mass/Vol] 2.5 g/dL 2.2-4.2 [facility] Serum glucose measurement (m ass/volume)Ordered By: Raffy Barillas on 04-30-2025 Glucose [Mass/Vol] 90 mg/dL 70-99 [facility] Serum or plasma alanine chin otransferase (ALT) measurementOrdered By: Raffy Barillas on 04-30-2025 ALT [Catalytic activity/Vol] 36 U/L High <35 [facility] Serum or plasma albumin john urement (mass/volume)Ordered By: Raffy Barillas on 04-30-2025 Albumin [Mass/Vol] 3.2 g/dL Low 3.4-4.8 [facility] Serum or plasma albumin/glob ulin mass ratioOrdered By: Raffy Barillas on 04-30-2025 Albumin/Globulin [Mass ratio] 1.3 {ratio} 0.9-2.4 [facility] Serum or plasma alkaline isael sphatase measurementOrdered By: Raffy Barillas on 04-30-2025 ALP [Catalytic activity/Vol] 79 U/L 35-104 [facility] Serum or plasma calcium john urement (mass/volume)Ordered By: Raffy Barillas on 04-30-2025 Calcium [Mass/Vol] 9.0 mg/dL 7.6-11.0 [facility] Serum or plasma urea nitroge n measurement (mass/volume)Ordered By: Raffy Barillas on 04-30-2025 Urea nitrogen [Mass/Vol] 17 mg/dL 4-19 [facility] Sodium levelOrdered By: Joselito Barillas on 04-30-2025 Sodium [Moles/Vol] 138 mmol/L 133-145 [facility] TSH DL <= 0.005 mIU/L QnOrde red By: Raffy Barillas on 04-30-2025 TSH Qn 4.650 uIU/mL High 0.300-4.200 [facility] Thyroid Stim Hormone (TSH)on 04-30-2025 TSH 4.650 uIU/mL High 0.300-4.200 [facility] Comment on above: Order Comment: 310-1 Performed By: #### L 500.4055, L501.9582, L100.0500 #### [facility] [address] [place], [place], [id number] Total proteinOrdered By: Mary Barillas on 04-30-2025 Protein [Mass/Vol] 5.7 g/dL Low 5.9-8.4 [facility] White blood cell (WBC) count Ordered By: Raffy Barillas on 04-30-2025 WBC (Bld) [#/Vol] 6.4 10*3/uL 4.4-11.0 [facility] [id number] 04-24-2025 [id number] Patient Choice Patient Name: PILY BARNES Date of : 1950 [facility] [id number] 04-23-2025 [id number] Next Site of Care Admission Date: 04/19/2025 03:31 PM Patient Name: PILY BARNES Location: [place] [id number] Date of : 1950 Placement Information Referral Type:Residential/SNF - New Referral ID:[facility]-[id number] Provider Name:[facility] Address 1:[address] Address 2: City:[place] Selection Factors:Patient/Fami ly Choice [place] [facility] [id number] [facility] [address] [facility] [phone] [id number] Patient/Family Choice [facility] [id number] Cm received confirmation that 2 pm is confirmed for transport to [place]. CM placed call to Jenise Barnes left message w [employer] glass ribbon machine operator assistant and also called Nathanael Barnes and spoke w nathanael via phone to update on transport time. and RN aware of 2 pm apple picker [facility] [id number] Confirmed pickup time of 2pm by transport company Dany Liu at phone number [phone]. Location of facility drop off is [facility]. Facility notified via [employer], [facility] notified on secure chat. [facility] [id number] Transport requested 2pm in [employer]. Awaiting time confirmation. [facility] [id number] Discharge med list transmitted to [facility] per [facility] request. 7000 was entered into [facility] for the SNF- Facility is aware [facility] [id number] Johnathon received notification from [facility] stating pt cleared for dc. Only med change s Klonipin and it was dc'd. CM placed a call to Jenise Barnes [facility] to attempt to update and left v mail. CM did speak with son Nathanael via phone to provide update and advised that dc is being placed and will call back with notification of transport. CM messaged facility in [employer]. Task placed to [facility] to set up cot Transport. Awaiting finalized dc order by attending and will have TRACTOR MECHANIC send dc orders/7000 and MAR> DCP: [facility]. [facility] [id number] Call placed to Jenise Barnes to inform of insurance auth for admission to [facility]. CM had to leave an additional message w [employer] assistance left name and contact information. Cwe continue to wait for Geriatrics assessment recommendations. CM to continue to reach HCPOA. [facility] [id number] Late entry by CM this day 04/23. 8:35 AM cm placed calls to pt's son Nathanael Barnes to inform responses from skilled referrals. FOC [facility] accepted and [place] [facility]. [place] was not able as no beds available. Permission to proceed with [facility]. CM did also place call to HCPOA Jenise Barnes. Left v mail with phone [employer] glass ribbon machine operator assistant w call back number. Sujatha Huffman will continue to attempt to reach brother Jenise to update. [facility] [id number] Cm received notification by [facility] that insurance approval was received for admission to [facility]. Chart reviewed VSS CM completed NARESH. Messaged RN and attending for Orders/naresh completion and Tasked for cot transportation. [facility] BASIC METABOLIC PANELon 08-2 Anion gap [Moles/Vol] 5 mmol/L Normal 3-13 [facility] Comment on above: Performed By: #### L AB20, LAB15 ####Investment Officer: MIGDALIA JOHNSON ([id number])[facility] ([facility] [place] [address] Calcium [Mass/Vol] 8.2 mg/dL Low 8.8-10.0 [facility] Comment on above: Performed By: #### L AB20, LAB15 ####Investment Officer: MIGDALIA JOHNSON ([id number])[facility] ([facility])[address] Chloride [Moles/Vol] 110 mmol/L High 98-107 [facility] Comment on above: Performed By: #### L AB20, LAB15 ####Investment Officer: MIGDALIA ESCALONAVASILIY ([id number])[facility] ([facility])[address] CO2 [Moles/Vol] 23 mmol/L Normal 23-31 [facility] Comment on above: Performed By: #### L AB20, LAB15 ####Investment Officer: MIGDALIA ESCALONAVSAILIY ([id number])[facility] ([facility])[address] Creatinine [Mass/Vol] 0.68 mg/dL Normal 0.57-1.11 [facility] Comment on above: Performed By: #### L AB20, LAB15 ####Investment Officer: MIGDALIA JOHNSON ([id number])[facility] ([facility])[address] GLOMERULAR FILTRATION RATE ML/MIN/1.73 SQ M.PREDICTED >90.0 Normal >60.0 [facility] Comment on above: Result Comment: Calc ulation based on the Chronic Kidney Disease Epidemiology Collaboration (CKD-EPI) equation refit without adjustment for race Performed By: #### L AB20, LAB15 ####Investment Officer: MIGDALIA JOHNSON ([id number])[facility] ([facility])[address] [place] [address] [place] Glucose [Mass/Vol] 92 mg/dL Normal 82-115 [facility] Comment on above: Performed By: #### L AB20, LAB15 ####Investment Officer: MIGDALIA JOHNSON ([id number])[facility] ([facility])[address] [place] [address] [place] Potassium [Moles/Vol] 4.6 mmol/L Normal 3.5-5.1 [facility] Comment on above: Result Comment: [facility] potassium values may be up to 0.5 mmol/L lower than serum values. Performed By: #### L AB20, LAB15 ####Investment Officer: MIGDALIA JOHNSON ([id number])[facility] ([facility])[address] Sodium [Moles/Vol] 138 mmol/L Normal 136-145 [facility] Comment on above: Performed By: #### L AB20, LAB15 ####Investment Officer: MIGDALIA ESCALONAVASILIY ([id number])[facility] ([facility])[address] Urea nitrogen [Mass/Vol] 17 mg/dL Normal 9-23 [facility] Comment on above: Performed By: #### L AB20, LAB15 ####Investment Officer: MIGDALIA ESCALONAVASILIY ([id number])[facility] ([facility])[address] [place] [address] Basic metabolic 1998 panelon 04-23-2025 Anion gap [Moles/Vol] 5 mmol/L 3 - 13 mmol/L [facility] Calcium [Mass/Vol] 8.2 mg/dL Low 8.8 - 10. 0 mg/dL [facility] Chloride [Moles/Vol] 110 mmol/L High 98 - 10 7 mmol/L [facility] CO2 [Moles/Vol] 23 mmol/L 23 - 31 mmol/L [facility] Creatinine [Mass/Vol] 0.68 mg/dL 0.57 - 1.11 mg/dL [facility] GFR/1.73 sq M.predicted (S/P/Bld) [Vol rate/Area] - PINF [facility] Comment on above: Calculation based on the Chronic Kidney Disease Epidemiology Collaboration (CKD-EPI) equation refit without adjustment for race Glucose [Mass/Vol] 92 mg/dL 82 - 115 mg/dL [facility] Interpretation and review of laboratory results Abnormal [facility] Potassium [Moles/Vol] 4.6 mmol/L 3.5 - 5.1 mmol/L [facility] Comment on above: Plasma potassium dylon ues may be up to 0.5 mmol/L lower than serum values. Sodium [Moles/Vol] 138 mmol/L 136 - 145 mmol/L [facility] Urea nitrogen [Mass/Vol] 17 mg/dL 9 - 23 mg/d L [facility] CBC W Auto Differential pane l (Bld)on 04-23-2025 Basophils (Bld) [#/Vol] 0 10*3/uL 0.0 - 0.2 10*3/uL [facility] Basophils/100 WBC (Bld) 0.4 % 0.0 - 2.0 % [facility] Eosinophils (Bld) [#/Vol] 0.2 10*3/uL 0. 0 - 0.5 10*3/uL [facility] Eosinophils/100 WBC (Bld) 2.4 % 0.0 - 6.0 % [facility] Erythrocyte distribution width (RBC) [Ratio] 13.5 % 11.5 - 15.0 % [facility] Hematocrit (Bld) [Volume fraction] 30.8 % Low 35.0 - 47.0 % [facility] Hemoglobin (Bld) [Mass/Vol] 9.9 g/dL Low 11.7 - 16.0 g/dL [facility] Immature granulocytes (Bld) [#/Vol] 0 10*3/uL NINF - 0.1 10*3/uL [facility] Immature granulocytes/100 WBC (Bld) 0.1 % 0.0 - 2.0 % [facility] Interpretation and review of laboratory results Abnormal [facility] th Lymphocytes (Bld) [#/Vol] 0.9 10*3/uL Low 1. 0 - 4.3 10*3/uL [facility] Lymphocytes/100 WBC (Bld) 12 % Low 15 .0 - 45.0 % [facility] MCH (RBC) [Entitic mass] 29.7 pg 26. 0 - 34.0 pg [facility] MCHC (RBC) [Mass/Vol] 32.1 % 30.5 - 36.0 % [facility] MCV (RBC) [Entitic vol] 92.5 fL 77.0 - 99.0 fL [facility] Monocytes (Bld) [#/Vol] 0.7 10*3/uL 0.0 - 0.9 10*3/uL [facility] Monocytes/100 WBC (Bld) 8.9 % 5.0 - 13.0 % [facility] Neutrophils (Bld) [#/Vol] 6 10*3/uL 1. 8 - 7.5 10*3/uL [facility] Neutrophils/100 WBC (Bld) 76.2 % 38 .0 - 82.0 % [facility] Nucleated RBC/100 WBC (Bld) [Ratio] 0 % [facility] Platelet mean volume (Bld) [Entitic vol] 9.5 fL 9.0 - 12.7 fL [facility] Platelets (Bld) [#/Vol] 126 10*3/uL Low 140 - 440 10*3/uL [facility] RBC (Bld) [#/Vol] 3.33 10*6/uL Low 3.80 - 5.2 0 10*6/uL [facility] WBC (Bld) [#/Vol] 7.8 10*3/uL 3.6 - 10.7 10*3/uL [facility] CBC WITH AUTO DIFFERENTIALon 04-23-2025 Basophils (Bld) [#/Vol] 0.0 10*3/uL Normal 0.0-0.2 [facility] Comment on above: Performed By: #### L [id number] ####Investment Officer: MIGDALIA JOHNSON ([id number])[facility] ([facility])[address] [place] [address] Basophils/100 WBC (Bld) 0.4 % Normal 0.0-2.0 [facility] Comment on above: Performed By: #### L [id number] ####Investment Officer: MIGDALIA JOHNSON ([id number])[facility] ([facility] Eosinophils (Bld) [#/Vol] 0.2 10*3/uL Normal 0.0-0.5 [facility] Comment on above: Performed By: #### L [id number] ####Investment Officer: MIGDALIA JOHNSON ([id number])[facility] ([facility])[address] Eosinophils/100 WBC (Bld) 2.4 % Normal 0.0-6.0 [facility] Comment on above: Performed By: #### L [id number] ####Investment Officer: MIGDALIA LINTONCARTER ([id number])[facility] [place] [address] Erythrocyte distribution width (RBC) [Ratio] 13.5 % Normal 11.5-15.0 [facility] Comment on above: Performed By: #### L [id number] ####Investment Officer: MIGDALIA LINTONCARTER ([id number])[facility] Hematocrit (Bld) [Volume fraction] 30.8 % Low 35.0-47.0 [facility] Comment on above: Performed By: #### L [id number] ####Investment Officer: MIGDALIA ALEX ([id number])[facility] ([facility])[address] [place] [address] Hemoglobin (Bld) [Mass/Vol] 9.9 g/dL Low 11.7-16.0 [facility] Comment on above: Performed By: #### L [id number] ####Investment Officer: MIGDALIA JOHNSON ([id number])[facility] ([facility])[address] [place] [address] IMMATURE GRANS % 0.1 % Normal 0.0-2.0 [facility] Comment on above: Performed By: #### L [id number] ####Investment Officer: MIGDALIA LINTONCARTER ([id number])[facility] ([facility] [place] [address] IMMATURE GRANS ABSOLUTE 0.0 10*3/uL Normal <0.1 [facility] Comment on above: Performed By: #### L [id number] ####Investment Officer: MIGDALIA JOHNSON ([id number])[facility] [place] [address] Lymphocytes (Bld) [#/Vol] 0.9 10*3/uL Low 1.0-4.3 [facility] Comment on above: Performed By: #### L [id number] ####Investment Officer: MIGDALIA ESCALONAMonicaCARTER ([id number])[facility] BAUMANNN ([facility])[address] Lymphocytes/100 WBC (Bld) 12.0 % Low 15.0-45.0 [facility] Comment on above: Performed By: #### L [id number] ####Investment Officer: MIGDALIA LINTONCARTER ([id number])[facility] ([facility])[address] MCH (RBC) [Entitic mass] 29.7 pg Normal 26.0-34.0 [facility] Comment on above: Performed By: #### L [id number] ####Investment Officer: MIGDALIA ESCALONAMonicaCARTER ([id number])[facility] ([facility])[address] MCHC 32.1 % Normal 30.5-36.0 [facility] Comment on above: Performed By: #### L [id number] ####Investment Officer: MIGDALIA LINTONCARTER ([id number])[facility] ([facility])[address] MCV (RBC) [Entitic vol] 92.5 fL Normal 77.0-99.0 [facility] Comment on above: Performed By: #### L [id number] ####Investment Officer: MIGDALIA JOHNSON ([id number])[facility] ([facility])[address] Monocytes (Bld) [#/Vol] 0.7 10*3/uL Normal 0.0-0.9 [facility] Comment on above: Performed By: #### L [id number] ####Investment Officer: MIGDALIA JOHNSON ([id number])[facility] ([facility])[address] Monocytes/100 WBC (Bld) 8.9 % Normal 5.0-13.0 [facility] Comment on above: Performed By: #### L [id number] ####Investment Officer: MIGDALIA ESCALONAMonicaCARTER ([id number])[facility] (SBHLAB)[address] NEUTROPHILS ABSOLUTE 6.0 10*3/uL Normal 1.8-7.5 [facility] Comment on above: Performed By: #### L [id number] ####Investment Officer: MIGDALIA ESCALONAVASILIY ([id number])[facility] (SBHLAB)[address] Neutrophils/100 WBC (Bld) 76.2 % Normal 38.0-82.0 [facility] Comment on above: Performed By: #### L [id number] ####Investment Officer: MIGDALIA ALEX ([id number])[facility] (SBHLAB)[address] [place] [address] NRBC 0.0 /100 WBCs Normal 0.0-2.0 [facility] Comment on above: Performed By: #### L [id number] ####Investment Officer: MIGDALIA ALEX ([id number])[facility] (SBHLAB)[address] Platelet mean volume (Bld) [Entitic vol] 9.5 fL Normal 9.0-12.7 [facility] Comment on above: Performed By: #### L [id number] ####Investment Officer: MIGDALIA LINTONCARTER ([id number])[facility] (SBHLAB)[address] Platelets (Bld) [#/Vol] 126 10*3/uL Low 140-440 [facility] Comment on above: Performed By: #### L [id number] ####Investment Officer: MIGDALIA ESCALONAVASILIY ([id number])[facility] (SBHLAB)[address] RBC (Bld) [#/Vol] 3.33 10*6/uL Low 3.80-5.20 [facility] Comment on above: Performed By: #### L [id number] ####Investment Officer: MIGDALIA ESCALONALILLYCARTER ([id number])[facility] BAUMANNLuis E (SBHLAB)[address] WBC (Bld) [#/Vol] 7.8 10*3/uL Normal 3.6-10.7 [facility] Comment on above: Performed By: #### L [id number] ####Investment Officer: MIGDALIACATHI ESCALONAMonicaCARTER ([id number])[facility] WILLIAMREHOB[facility] MCK[facility] C[facility] SERVICESLuis E (SBHLAB)[address] Consulton 04-23-2025 Consult [facility] Ger[facility] Medicine Inpatient Consult Service Admission Date: 04/19/2025 Admission Status: INPATIENT Chief Complaint: fall Reason for Appointment Geriatrics consulted for Polypharmacy and falls Assessment & Plan Principal Problem: Closed nondisplaced intertrochanteric fracture of right femur, initial encounter ([facility]) Active Problems: Debility Acute pain due to trauma Bipolar 1 disorder ([facility]) At risk for delirium Debility -Contributing factors [...] 04/21/25. -She lives in an assisted living "[facility]". She has been there for about three [...] Conversation wi (more content not included)... Normal [facility] HEPATIC FUNCTION PANELon Albumin [Mass/Vol] 2.5 g/dL Low 3.4-4.8 [facility] Comment on above: Performed By: #### L [id number], [id number] ####Investment Officer: MIGDALIA JOHNSON ([id number])[facility] ([facility])[address] [place] [address] ALP [Catalytic activity/Vol] 56 U/L Normal 40-150 [facility] Comment on above: Performed By: #### L [id number], [id number] ####Investment Officer: MIGDALIA JOHNSON ([id number])[facility] ([facility])[address] ALT [Catalytic activity/Vol] 26 U/L Normal <30 [facility] Comment on above: Performed By: #### L [id number], [id number] ####Investment Officer: MIGDALIA JOHNSON ([id number])[facility] ([facility])[address] [place] [address] AST [Catalytic activity/Vol] 47 U/L High <34 [facility] Comment on above: Performed By: #### L [id number], [id number] ####Investment Officer: MIGDALIA JOHNSON ([id number])[facility] (SBHLAB)[address] Bilirubin [Mass/Vol] 0.6 mg/dL Normal <1.2 [facility] Comment on above: Performed By: #### L [id number], [id number] ####Investment Officer: MIGDALIA JOHNSON ([id number])[facility] ([facility])[address] [place] [address] Bilirubin.indirect [Mass/Vol] 0.3 mg/dL Normal <0.5 [facility] Comment on above: Performed By: #### L [id number], [id number] ####Investment Officer: MIGDALIA ALEX ([id number])[facility] ([facility])[address] [place] [address] Protein [Mass/Vol] 5.0 g/dL Low 6.4-8.3 [facility] Comment on above: Result Comment: Seru m protein values are higher than plasma values. Samples from recumbent persons are lower by up to 0.5 g/dL as compared to ambulatory persons. After 60 years values are lower by up to 0.2 g/dL. Performed By: #### L [id number], LAB15 ####Investment Officer: MIGDALIA ALEX ([id number])[facility] ([facility])[address] [place] [address] Hepatic function 2000 panelo n 04-23-2025 Albumin [Mass/Vol] 2.5 g/dL Low 3.4 - 4.8 g/dL [facility] ALP [Catalytic activity/Vol] 56 U/L 40 - 150 U/L [facility] ALT [Catalytic activity/Vol] 26 U/L NINF - 30 U/L [facility] AST [Catalytic activity/Vol] 47 U/L High NINF - 34 U/L [facility] Bilirubin [Mass/Vol] 0.6 mg/dL [facility] - 1.[facility] mg/dL [facility] Bilirubin.conjugated [Mass/Vol] 0.3 mg/dL [facility] - 0.5 mg/dL [facility] Interpretation and review of laboratory results Abnormal [facility] th Protein [Mass/Vol] 5 g/dL Low 6.4 - 8.3 g/dL [facility] Comment on above: Serum protein values are higher than plasma values. Samples from recumbent persons are lower by up to 0.5 g/dL as compared to ambulatory persons. After 60 years values are lower by up to 0.2 g/dL. [facility] Progress Noteon 04-23-2025 Progress Note Physician Response Please review the following and provide your response below. Please clarify which of the following accurately describes the patient's lab value: Metabolic acidosis This documentation will become part of the patient's medical record. Normal [facility] Progress Note PHYSICAL THERAPY [facility] Treatment Note Name/MRN: Pily Barnes ([id number]) Date of : 1950 Age: 74 y.o. Room/Bed: B1-157/B1-157 A Visit #: 1 out of 7 visits Discharge Recommendation: Group Home Facility Equipment Needed: (TBD at next level [...] 04/29/25 Tr (more content not included)... Normal [facility] Progress Note Adult Hip and Knee Reconstruction [...] and elevate -DVT prophylaxis: lovenox/SCDs -DC planning: [facility] p -Ortho signing off, please page cotton stripper resident with questions or concerns. Subjective: Overall [...] BID rosuvastatin, 20 mg, Oral, Nightly Normal [facility] XR PELVIS 1-2 VIEWSon 2024 XR PELVIS 1-2 VIEWS Patient Name: PILY BARNES : 1950 [facility]#: [id number] Exam Date/Time: 04/21/2025 15:15 Procedure: XR PELVIS [...] PM EDT S/P RIGHT HIP NAIL Normal [facility] XR Pelvis 1 or 2 Viewson 1. Acute right intertrochanteric fracture. 2. ORIF. 3. The right hip is now in near-anatomic alignment. Report Dictated on Electronically Signed By: Kain Gonzales MD Electronically Signed Date/Time: 04/23/2025 9:33 PM EDT [facility] Patient Name: PILY BARNES : 1950 [...] right femur is now in near-anatomic alignment. [facility] Kain Gonzales MD - 04/23/2025 Patient Name: [...] Electronically Signed Date/Time: 04/23/2025 9:33 PM EDT [facility] XR Pelvis 1 or 2 ViewsOrdere d By: Kain Gonzales on 04-23-2025 [employer] Work Phone: [phone] 04-22-2025 [id number] Care Managment Initial Assessment Date: 04/22/2025 Patient Name: Pily Barnes : 1950 Patient Information Source of Information: Patient, Patient Hat Liner Name/Contact Information: mina Huffman Cognition/Language: WFL - Within Functional Limits Permission given to speak with patient exhibit display representative/careg iver as indicated: Yes Confirmation of Payer with patient/family: Yes Payer Name: [facility] Medicare : No Confirmation of Primary Care Physician: Confirmed PCP Name: Dr. Mckee from [place] I Seen in last 2 years?: Yes Primary Caregiver: (AL attendants assist with ADLS/Sons assist with Financials/HCPOA) If assistance needed, confirmed caregiver ready, willing and able to care for patient at discharge: Confirmed with: Living Arrangements Current Residence: Number of Floors 1 Number of Entry Steps: 1 Bed/Bath Levels: Both first floor Facility: Assisted Living Facility Name: [facility] Plan to Return: Lives with: Alone Support Systems: Children, Comments (Other) (attendants at [facility]) Activities of Daily Living Ambulation: Assistance (walker [...] Assistance Provider Meal Prep Assistance Provider Name: [place] staff Laundry/Cleaning: Assistance Provider Laundry/Cleaning Assistance Provider Name: [place] Staff/Family Finances/Bill Paying: Assistance Provider Finances/Bill Payer Assistance Provider Name: reynaldo Communication: Independent Types of Care Services/Equipment Utilized Care Services: Dialysis Type: NA Durable Medical Equipment: Walker, Wheelchair (standard or power) DME Provider: owns and facility based Patient's Goal/Discharge Plan Patient expects to be discharged to: Discharge Planning Actions: Continue to follow, Group Home Facility referral indicated [place]: [place] of choice discussed, Choice list provided Patient's Choice Rights and [employer] and Collaborative Relationships Disclosed as Indicated for Post-Acute Care: Yes Interdisciplinary Team Engagement: PT/OT, Home Health Care Social Work Referral for: Additional Information: Pt admitted to hospital s/p slip and fall in bathroom of [place]. Diagnosed via x ray/CT w acute R [...] self and role. Pt reports being at [facility] for aprox. 3 years. Pt ambulates with walker short distances and transitions to when ambulating to dinning room twice a day. Pt reports she needs assist for hair washing and her back. Assist needed also for application of socks and shoes. Insurance verified [facility] Medicare and pt follows with Dr. Mckee at [place] HCPOA is Claudia/Jenise Barnes. Therapy recommendations reviewed and SNF list presented to pt and sone. CM tasked TRACTOR MECHANIC to place referrals to pt and family selections: [facility] 2nd and [facility] 3rd. Awaiting acceptance. DCP: SNF when accepted and approved. CM following. Angel Luis Matos RN Normal [facility] BASIC METABOLIC PANELon 08- Anion gap [Moles/Vol] 6 mmol/L Normal 3-13 [facility] Comment on above: Performed By: #### L [id number] ####Investment Officer: MIGDALIA JOHNSON ([id number])[facility] (SB[facility])[address] Calcium [Mass/Vol] 8.5 mg/dL Low 8.8-10.0 [facility] Comment on above: Performed By: #### L [id number] ####Investment Officer: MIGDALIA JOHNSON ([id number])[facility] ([facility])[address] Chloride [Moles/Vol] 109 mmol/L High 98-107 [facility] Comment on above: Performed By: #### L AB15 ####Investment Officer: MIGDALIA JOHNSON ([id number])[facility] ([facility])[address] CO2 [Moles/Vol] 22 mmol/L Low 23-31 [facility] Comment on above: Performed By: #### L [id number] ####Investment Officer: MIGDALIA JOHNSON ([id number])[facility] ([facility])[address] Creatinine [Mass/Vol] 0.75 mg/dL Normal 0.57-1.11 [facility] Comment on above: Performed By: #### L AB15 ####Investment Officer: MIGDALIA JOHNSON ([id number])[facility] ([facility])[address] GLOMERULAR FILTRATION RATE ML/MIN/1.73 SQ M.PREDICTED 83.7 mL/min/1.73m*2 Normal >60.0 [facility] Comment on above: Result Comment: Calc ulation based on the Chronic Kidney Disease Epidemiology Collaboration (CKD-EPI) equation refit without adjustment for race Performed By: #### L [id number] ####Investment Officer: MIGDALIA JOHNSON ([id number])[facility] (SBHLAB)[address] [place] [address] [place] Glucose [Mass/Vol] 158 mg/dL High 82-115 [facility] Comment on above: Performed By: #### L AB15 ####Investment Officer: MIGDALIA JOHNSON ([id number])[facility] (SBHLAB)[address] Potassium [Moles/Vol] 4.7 mmol/L Normal 3.5-5.1 [facility] Comment on above: Result Comment: [facility] potassium values may be up to 0.5 mmol/L lower than serum values. Performed By: #### L AB15 ####Investment Officer: MIGDALIA JOHNSON ([id number])[facility] ([facility])[address] Sodium [Moles/Vol] 137 mmol/L Normal 136-145 [facility] Comment on above: Performed By: #### L [id number] ####Investment Officer: MIGDALIA JOHNSON ([id number])[facility] ([facility])[address] Urea nitrogen [Mass/Vol] 14 mg/dL Normal 9-23 [facility] Comment on above: Performed By: #### L [id number] ####Investment Officer: MIGDALIA JOHNSON ([id number])[facility] ([facility])[address] [place] [address] Basic metabolic 1998 panelon 04-22-2025 Anion gap [Moles/Vol] 6 mmol/L 3 - 13 mmol/L [facility] Calcium [Mass/Vol] 8.5 mg/dL Low 8.8 - 10. 0 mg/dL [facility] Chloride [Moles/Vol] 109 mmol/L High 98 - 10 7 mmol/L [facility] CO2 [Moles/Vol] 22 mmol/L Low 23 - 31 mmol/L [facility] Creatinine [Mass/Vol] 0.75 mg/dL 0.57 - 1.11 mg/dL [facility] GFR/1.73 sq M.predicted (S/P/Bld) [Vol rate/Area] 83.7 mL/min - PINF [facility] Comment on above: Calculation based on the Chronic Kidney Disease Epidemiology Collaboration (CKD-EPI) equation refit without adjustment for race Glucose [Mass/Vol] 158 mg/dL High 82 - 115 mg/dL [facility] Interpretation and review of laboratory results Abnormal [facility] th Potassium [Moles/Vol] 4.7 mmol/L 3.5 - 5.1 mmol/L [facility] Comment on above: Plasma potassium dylon ues may be up to 0.5 mmol/L lower than serum values. Sodium [Moles/Vol] 137 mmol/L 136 - 145 mmol/L [facility] Urea nitrogen [Mass/Vol] 14 mg/dL 9 - 23 mg/d L [facility] CBC W Auto Differential pane l (Bld)on 04-22-2025 Erythrocyte distribution width (RBC) [Ratio] 13.3 % 11.5 - 15.0 % [facility] Hematocrit (Bld) [Volume fraction] 35.3 % 35.0 - 47.0 % [facility] Hemoglobin (Bld) [Mass/Vol] 11.4 g/dL Low 11.7 - 16.0 g/dL [facility] IPF 2 [facility] MCH (RBC) [Entitic mass] 29.7 pg 26. 0 - 34.0 pg [facility] MCHC (RBC) [Mass/Vol] 32.3 % 30.5 - 36.0 % [facility] MCV (RBC) [Entitic vol] 91.9 fL 77.0 - 99.0 fL [facility] Platelet mean volume (Bld) [Entitic vol] 10 fL 9.0 - 12.7 fL [facility] Platelets (Bld) [#/Vol] 134 10*3/uL Low 140 - 440 10*3/uL [facility] RBC (Bld) [#/Vol] 3.84 10*6/uL 3.80 - 5.2 0 10*6/uL [facility] WBC (Bld) [#/Vol] 9.1 10*3/uL 3.6 - 10.7 10*3/uL [facility] CBC WITH AUTO DIFFERENTIALon 04-22-2025 Erythrocyte distribution width (RBC) [Ratio] 13.3 % Normal 11.5-15.0 [facility] Comment on above: Performed By: #### L [id number], [id number] #### Investment Officer: MIGDALIA JOHNSON ([id number]) [facility] (SBHLAB) [address] Hematocrit (Bld) [Volume fraction] 35.3 % Normal 35.0-47.0 [facility] Comment on above: Performed By: #### L [id number], [id number] #### Investment Officer: MIGDALIA JOHNSON ([id number]) [facility] (SBHLAB) [address] Hemoglobin (Bld) [Mass/Vol] 11.4 g/dL Low 11.7-16.0 [facility] Comment on above: Performed By: #### L [id number], [id number] #### Investment Officer: MIGDALIA JOHNSON ([id number]) [facility] ([facility]) [address] IPF 2 Normal [facility] Comment on above: Performed By: #### L [id number], [id number] #### Investment Officer: MIGDALIA JOHNSON ([id number]) [facility] ([facility]) [address] MCH (RBC) [Entitic mass] 29.7 pg Normal 26.0-34.0 [facility] Comment on above: Performed By: #### L [id number], [id number] #### Investment Officer: MIGDALIA JOHNSON ([id number]) [facility] (SB[facility]) [address] MCHC 32.3 % Normal 30.5-36.0 [facility] Comment on above: Performed By: #### L [id number], [id number] #### Investment Officer: MIGDALIA JOHNSON ([id number]) [facility] (SB[facility]) [address] MCV (RBC) [Entitic vol] 91.9 fL Normal 77.0-99.0 [facility] Comment on above: Performed By: #### L [id number], [id number] #### Investment Officer: MIGDALIA JOHNSON ([id number]) [facility] ([facility]) [address] Platelet mean volume (Bld) [Entitic vol] 10.0 fL Normal 9.0-12.7 [facility] Comment on above: Performed By: #### L [id number], [id number] #### Investment Officer: MIGDALIA JOHNSON ([id number]) [facility] ([facility]) [address] Platelets (Bld) [#/Vol] 134 10*3/uL Low 140-440 [facility] Comment on above: Performed By: #### L [id number], [id number] #### Investment Officer: MIGDALIA JOHNSON ([id number]) [facility] ([facility]) [address] RBC (Bld) [#/Vol] 3.84 10*6/uL Normal 3.80-5.20 [facility] Comment on above: Performed By: #### L [id number], [id number] #### Investment Officer: MIGDALIA JOHNSON ([id number]) [facility] (SB[facility]) [address] WBC (Bld) [#/Vol] 9.1 10*3/uL Normal 3.6-10.7 [facility] Comment on above: Performed By: #### L [id number], [id number] #### Investment Officer: MIGDALIA JOHNSON ([id number]) [facility] ([facility]) [address] Laboratory - Chemistry and C hemistry - challengeon 04-22-2025 Glucose [Mass/Vol] 177 mg/dL High 70 - 100 mg/dL [facility] Laboratory - Hematology and Cell countson 04-22-2025 Band form neutrophils (Bld) [#/Vol] 0.3 10*3/uL High NINF - 0.0 10*3/uL [facility] Band form neutrophils/100 WBC (Bld) 3 % High NINF - 0 % [facility] Lymphocytes (Bld) [#/Vol] 0.2 10*3/uL Low 1. 0 - 4.3 10*3/uL [facility] Lymphocytes/100 WBC (Bld) 2 % Low 15 - 45 % [facility] Monocytes (Bld) [#/Vol] 0.5 10*3/uL 0.0 - 0.9 10*3/uL [facility] Monocytes/100 WBC (Bld) 5 % 5 - 13 % [facility] Neutrophils (Bld) [#/Vol] 8.5 10*3/uL High 1. 8 - 7.5 10*3/uL [facility] RBC morphology finding Nom (Bld) Normal [facility] Segmented neutrophils/100 WBC (Bld) 90 % High 38 - 82 % [facility] MANUAL DIFFERENTIAL (CELLAVI LEXI)on 04-22-2025 BAND NEUTROPHILS TOTAL PER COUNTED LEUKOCYTES BY MANUAL COUNT 3 Normal [facility] Comment on above: Performed By: #### L [id number], [id number] #### Investment Officer: MIGDALIA JOHNSON ([id number]) [facility] (SBAB) [address] [place] [address] [place] BANDS (10*3/UL) IN BLOOD-CELLAVISION 0.3 10*3/uL High <=0.0 [facility] Comment on above: Performed By: #### L [id number], [id number] #### Investment Officer: MIGDALIA JOHNSON ([id number]) [facility] (SBHLAB) [address] [place] [address] [place] BASOPHILS TOTAL PER COUNTED LEUKOCYTES BY MANUAL COUNT Normal [facility] Comment on above: Performed By: #### L [id number], [id number] #### Investment Officer: MIGDALIA JOHNSON ([id number]) [facility] (SB[facility]) [address] [place] [address] [place] BLASTS TOTAL PER COUNTED LEUKOCYTES BY MANUAL COUNT Normal [facility] Comment on above: Performed By: #### L [id number], [id number] #### Investment Officer: MIGDALIA JOHNSON ([id number]) [facility] ([facility]) [address] [place] [address] [place] EOSINOPHILS TOTAL PER COUNTED LEUKOCYTES BY MANUAL COUNT Normal [facility] Comment on above: Performed By: #### L [id number], [id number] #### Investment Officer: MIGDALIA JOHNSON ([id number]) [facility] ([facility] [address] [place] [address] [place] LYMPHOCYTES (10*3/UL) IN BLOOD-CELLAVISION 0.2 10*3/uL Low 1.0-4.3 [facility] Comment on above: Performed By: #### L [id number], [id number] #### Investment Officer: MIGDALIA JOHNSON ([id number]) [facility] ([facility]) [address] [place] [address] [place] LYMPHOCYTES TOTAL PER COUNTED LEUKOCYTES BY MANUAL COUNT 2 Normal [facility] Comment on above: Performed By: #### L [id number], [id number] #### Investment Officer: MIGDALIA JOHNSON ([id number]) [facility] (HLAB) [address] [place] [address] [place] LYMPHOCYTES/100 LEUKOCYTES IN BLOOD-CELLAVISION 2 % Low 15-45 [facility] Comment on above: Performed By: #### L [id number], [id number] #### Investment Officer: MIGDALIA JOHNSON ([id number]) [facility] (HL[facility]) [address] [place] [address] [place] METAMYELOCYTES TOTAL PER COUNTED LEUKOCYTES BY MANUAL COUNT Normal [facility] Comment on above: Performed By: #### L [id number], [id number] #### Investment Officer: MIGDALIA JOHNSON ([id number]) [facility] (HL[facility]) [address] [place] [address] [place] MONOCYTES (10*3/UL) IN BLOOD-CELLAVISION 0.5 10*3/uL Normal 0.0-0.9 [facility] Comment on above: Performed By: #### L [id number], [id number] #### Investment Officer: MIGDALIA JOHNSON ([id number]) [facility] (SB[facility]) [address] [place] [address] [place] MONOCYTES TOTAL PER COUNTED LEUKOCYTES BY MANUAL COUNT 5 Normal [facility] Comment on above: Performed By: #### L [id number], [id number] #### Investment Officer: MIGDALIA DOHERTYCER ([id number]) [facility] ([facility]) [address] [place] [address] [place] MONOCYTES/100 LEUKOCYTES IN BLOOD-JOVANY 5 % Normal 5-13 [facility] Comment on above: Performed By: #### L [id number], [id number] #### Investment Officer: MIGDALIA DOHERTYCER ([id number]) [facility] ([facility]) [address] [place] [address] [place] MYELOCYTES COUNTED BY MANUAL COUNT Normal [facility] Comment on above: Performed By: #### L [id number], [id number] #### Investment Officer: MIGDALIA DOHERTYCER ([id number]) [facility] ([facility]) [address] [place] [address] [place] NEUTROPHILS BAND FORM/100 LEUKOCYTES IN BLOOD-CELLAVISI 3 % High <=0 [facility] Comment on above: Performed By: #### L [id number], [id number] #### Investment Officer: MIGDALIA JOHNSON ([id number]) [facility] ([facility]) [address] [place] [address] [place] NEUTROPHILS TOTAL PER COUNTED LEUKOCYTES BY MANUAL COUNT 90 Normal [facility] Comment on above: Performed By: #### L [id number], [id number] #### Investment Officer: MIGDALIA DOHERTYCER ([id number]) [facility] ([facility]) [address] [place] [address] [place] PROMYELOCYTES TOTAL PER COUNTED LEUKOCYTES BY MANUAL COUNT Normal [facility] Comment on above: Performed By: #### L [id number], [id number] #### Investment Officer: MIGDALIA DOHERTYCER ([id number]) [facility] ([facility]) [address] [place] [address] [place] RBC MORPHOLOGY IN BLOOD Normal Normal S [facility] Comment on above: Performed By: #### L [id number], [id number] #### Investment Officer: MIGDALIA JOHNSON ([id number]) [facility] ([facility]) [address] SEGMENTED NEUTROPHILS (10*3/UL) IN BLOOD-CELLAVISION 8.5 10*3/uL High 1.8-7.5 [facility] Comment on above: Performed By: #### L [id number], [id number] #### Investment Officer: MIGDALIA JOHNSON ([id number]) [facility] ([facility]) [address] [place] [address] [place] SEGMENTED NEUTROPHILS/100 LEUKOCYTES-CE 90 % High 38-82 [facility] Comment on above: Performed By: #### L [id number], [id number] #### Investment Officer: MIGDALIA JOHNSON ([id number]) [facility] (SBHLAB) [address] UNCLASSIFIED CELLS TOTAL PER COUNTED LEUKOCYTES BY MANUAL COUNT [facility] Comment on above: Performed By: #### L [id number], [id number] #### Investment Officer: MIGDALIA JOHNSON ([id number]) [facility] (SBHLAB) [address] VARIANT LYMPHOCYTES TOTAL PER COUNTED LEUKOCYTES BY MANUAL COUNT [facility] Comment on above: Performed By: #### L [id number], [id number] #### Investment Officer: MIGDALIA JOHNSON ([id number]) [facility] (SBHLAB) [address] No Panel Informationon 04-22 Interpretation and review of laboratory results Abnormal [facility] [place] [facility] Performed by: Richa Mcdonald, [address] [place] [address] CLIA ID: [id number] [facility] Health [facility] [place] [facility] Atypical Lymphocytes Manual [facility] [place] [facility] Bands Manual 3 [facility] Basophils Manual [facility] Blasts Manual [facility] [place] [facility] Eosinophils Manual [facility] [place] [facility] Interpretation and review of laboratory results Abnormal [facility] [place] [facility] Lymphocytes Manual 2 [facility] Metamyelocytes Manual [facility] Monocytes Manual 5 [facility] He alth Myelocytes Manual [facility] H ealth Neutrophils Manual 90 [facility] Promyelocytes Manual [facility] Unclassified Cells, Manual [facility] Health Progress Noteon 04-22-2025 Progress Note Attestation signed by Sabas Del Valle OT at 04/22/2025 2:01 PM I certify that I was present during the entire session and guided the care given by the Student Occupational Therapist. Cosign: OCCUPATIONAL THERAPY [facility] Initial Evaluation Name/MRN: Pily Barnes ([id number]) Evaluation Date: 04/22/2025 Date of : 1950 Admission Date: 04/19/2025 3:31 PM Age: 74 y.o. Room/Bed: B1-157/B1-157 A Discharge Recommendation: Group Home Facility Assessment IMPRESSION: Pt is a 74 y/o F admitted to [facility] d/t a fall in the bathroom resulting in a R femur fracture requiring intramedullary nailing of the R femur, pt is WBAT/ROM as tolerated and on 4L O2. She is not on O2 at baseline and lives [facility], states that she would walk hallway to [...] intertrochanteric fracture of right femur, initial encounter ([facility]) 04/19/2025 Acute kidney injury ([facility]) 12/16/2023 Nausea vomiting and diarrhea 12/16/2023 Cervical stenosis of spinal canal 03/02/2023 Shortness of breath 11/18/2022 Syncope and collapse 11/18/2022 Traumatic subdural hematoma of neuraxis ([facility]) 11/18/2022 Recurrent falls 03/01/2022 Rhabdomyolysis 02/28/2022 S/P [...] 08/06/2019 Vitamin D deficiency 08/06/2019 Suicide attempt ([facility]) 11/13/2017 Mild intermittent asthma 09/23/2017 Bipolar 1 disorder, depressed, severe (CMS/HCC) ([facility]) 09/22/2017 Severe recurrent major depression with psychotic features ([facility]) 09/22/2017 Primary hypertension 09/20/2017 Closed displaced intertrochanteric fracture of right femur ([facility]) 04/19/2025 Medical Precautions: No active isolations Proper [...] Oriented x4 Social/Functional History Patient admitted from [facility]. Assistive Equipment: front wheeled walker and wheelchair [...] States at baseline she has aid at [facility]URSING HOME that completes most of the bathing and dressing tasks for her. Attempted to walk to the bathroom but pt unable to take steps without buckling, would benefit from BSC when able to weight bear through BLE. (more content not included)... 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 Subjective: Overall [...] BID rosuvastatin, 20 mg, Oral, Nightly Normal [facility] BASIC METABOLIC PANELon 04-04 Anion gap [Moles/Vol] 6 mmol/L Normal 3-13 [facility] Comment on above: Performed By: #### L [id number] ####Investment Officer: MIGDALIA JOHNSON ([id number])[facility] ([facility])[address] Calcium [Mass/Vol] 8.6 mg/dL Low 8.8-10.0 [facility] Comment on above: Performed By: #### L [id number] ####Investment Officer: MIGDALIA JOHNSON ([id number])[facility] (SBHLAB)[address] Chloride [Moles/Vol] 112 mmol/L High 98-107 [facility] Comment on above: Performed By: #### L [id number] ####Investment Officer: MIGDALIA JOHNSON ([id number])[facility] ([facility]AB)[address] CO2 [Moles/Vol] 21 mmol/L Low 23-31 [facility] Comment on above: Performed By: #### L [id number] ####Investment Officer: MIGDALIA JOHNSON ([id number])[facility] [place] ([facility])[address] Creatinine [Mass/Vol] 0.74 mg/dL Normal 0.57-1.11 [facility] Comment on above: Performed By: #### L [id number] ####Investment Officer: MIGDALIA JOHNSON ([id number])[facility] (SBHLAB)155 [place] [address] [place] GLOMERULAR FILTRATION RATE ML/MIN/1.73 SQ M.PREDICTED 85.0 mL/min/1.73m*2 Normal >60.0 [facility] Comment on above: Result Comment: Calc ulation based on the Chronic Kidney Disease Epidemiology Collaboration (CKD-EPI) equation refit without adjustment for race Performed By: #### L [id number] ####Investment Officer: MIGDALIA JOHNSON ([id number])[facility] Glucose [Mass/Vol] 144 mg/dL High 82-115 [facility] Comment on above: Performed By: #### L [id number] ####Investment Officer: MIGDALIA JOHNSON ([id number])[facility] ([facility])[address] Potassium [Moles/Vol] 4.7 mmol/L Normal 3.5-5.1 [facility] Comment on above: Result Comment: [facility] potassium values may be up to 0.5 mmol/L lower than serum values. Performed By: #### L [id number] ####Investment Officer: MIGDALIA JOHNSON ([id number])[facility] (SBHLAB)[address] Sodium [Moles/Vol] 139 mmol/L Normal 136-145 [facility] Comment on above: Performed By: #### L [id number] ####Investment Officer: MIGDALIA JOHNSON ([id number])[facility] (SB[facility]AB)[address] Urea nitrogen [Mass/Vol] 16 mg/dL Normal 9-23 [facility] Comment on above: Performed By: #### L [id number] ####Investment Officer: MIGDALIA JOHNSON ([id number])[facility] (SBHLAB)[address] Basic metabolic 1998 panelOr dered By: Stephanie Walker on 04-21-2025 Anion gap [Moles/Vol] 6 mmol/L 3 - 13 mmol/L [facility] Calcium [Mass/Vol] 8.6 mg/dL Low 8.8 - 10. 0 mg/dL [facility] Chloride [Moles/Vol] 112 mmol/L High 98 - 10 7 mmol/L [facility] CO2 [Moles/Vol] 21 mmol/L Low 23 - 31 mmol/L [facility] Creatinine [Mass/Vol] 0.74 mg/dL 0.57 - 1.11 mg/dL [facility] [email or web address] GFR/1.73 sq M.predicted (S/P/Bld) [Vol rate/Area] 85 mL/min - PINF [facility] Comment on above: Calculation based on the Chronic Kidney Disease Epidemiology Collaboration (CKD-EPI) equation refit without adjustment for race Glucose [Mass/Vol] 144 mg/dL High 82 - 115 mg/dL [facility] Interpretation and review of laboratory results Abnormal [facility] Potassium [Moles/Vol] 4.7 mmol/L 3.5 - 5.1 mmol/L [facility] Comment on above: Plasma potassium dylon ues may be up to 0.5 mmol/L lower than serum values. Sodium [Moles/Vol] 139 mmol/L 136 - 145 mmol/L [facility] [email or web address] Urea nitrogen [Mass/Vol] 16 mg/dL 9 - 23 mg/d L [facility] [email or web address] CBC W Auto Differential pane l (Bld)on 04-21-2025 Basophils (Bld) [#/Vol] 0 10*3/uL 0.0 - 0.2 10*3/uL [facility] [email or web address] Basophils/100 WBC (Bld) 0.2 % 0.0 - 2.0 % [facility] [email or web address] Eosinophils (Bld) [#/Vol] 0.1 10*3/uL 0. 0 - 0.5 10*3/uL [facility] [email or web address] Eosinophils/100 WBC (Bld) 0.8 % 0.0 - 6.0 % [facility] [email or web address] Erythrocyte distribution width (RBC) [Ratio] 13.5 % 11.5 - 15.0 % [facility] Hematocrit (Bld) [Volume fraction] 38.6 % 35.0 - 47.0 % [facility] [email or web address] Hemoglobin (Bld) [Mass/Vol] 12.3 g/dL 11.7 - 16.0 g/dL [facility] [email or web address] Immature granulocytes (Bld) [#/Vol] 0 10*3/uL NINF - 0.1 10*3/uL [facility] [email or web address] Immature granulocytes/100 WBC (Bld) 0.2 % 0.0 - 2.0 % [facility] Interpretation and review of laboratory results Abnormal [facility] th IPF 2 [facility] [email or web address] Lymphocytes (Bld) [#/Vol] 0.9 10*3/uL Low 1. 0 - 4.3 10*3/uL [facility] Lymphocytes/100 WBC (Bld) 10 % Low 15 .0 - 45.0 % [facility] MCH (RBC) [Entitic mass] 29.6 pg 26. 0 - 34.0 pg [facility] MCHC (RBC) [Mass/Vol] 31.9 % 30.5 - 36.0 % [facility] MCV (RBC) [Entitic vol] 92.8 fL 77.0 - 99.0 fL [facility] Monocytes (Bld) [#/Vol] 0.7 10*3/uL 0.0 - 0.9 10*3/uL [facility] Monocytes/100 WBC (Bld) 7.6 % 5.0 - 13.0 % [facility] Neutrophils (Bld) [#/Vol] 7.1 10*3/uL 1. 8 - 7.5 10*3/uL [facility] Neutrophils/100 WBC (Bld) 81.2 % 38 .0 - 82.0 % [facility] Nucleated RBC/100 WBC (Bld) [Ratio] 0 % [facility] Platelet mean volume (Bld) [Entitic vol] 10 fL 9.0 - 12.7 fL [facility] Platelets (Bld) [#/Vol] 137 10*3/uL Low 140 - 440 10*3/uL [facility] RBC (Bld) [#/Vol] 4.16 10*6/uL 3.80 - 5.2 0 10*6/uL [facility] WBC (Bld) [#/Vol] 8.7 10*3/uL 3.6 - 10.7 10*3/uL [facility] CBC WITH AUTO DIFFERENTIALon 04-21-2025 Basophils (Bld) [#/Vol] 0.0 10*3/uL Normal 0.0-0.2 [facility] Comment on above: Performed By: #### L [id number] ####Investment Officer: MIGDALIA JOHNSON ([id number])[facility] ([facility])[address] [place] [address] Basophils/100 WBC (Bld) 0.2 % Normal 0.0-2.0 S [facility] Comment on above: Performed By: #### L [id number] ####Investment Officer: MIGDALIA JOHNSON ([id number])[facility] (SBHLAB)[address] Eosinophils (Bld) [#/Vol] 0.1 10*3/uL Normal 0.0-0.5 [facility] Comment on above: Performed By: #### L [id number] ####Investment Officer: MIGDALIA LINTONCARTER ([id number])[facility] ([facility])[address] Eosinophils/100 WBC (Bld) 0.8 % Normal 0.0-6.0 [facility] Comment on above: Performed By: #### L [id number] ####Investment Officer: MIGDALIA JOHNSON ([id number])[facility] ([facility] Erythrocyte distribution width (RBC) [Ratio] 13.5 % Normal 11.5-15.0 [facility] Comment on above: Performed By: #### L [id number] ####Investment Officer: MIGDALIA LINTONCARTER ([id number])[facility] ([facility] Hematocrit (Bld) [Volume fraction] 38.6 % Normal 35.0-47.0 [facility] Comment on above: Performed By: #### L [id number] ####Investment Officer: MIGDALIA JOHNSON ([id number])[facility] ([facility])[address] Hemoglobin (Bld) [Mass/Vol] 12.3 g/dL Normal 11.7-16.0 [facility] Comment on above: Performed By: #### L [id number] ####Investment Officer: MIGDALIA JOHNSON ([id number])[facility] IMMATURE GRANS % 0.2 % Normal 0.0-2.0 [facility] Comment on above: Performed By: #### L [id number] ####Investment Officer: MIGDALIA JOHNSON ([id number])[facility] (SBHLAB)[address] IMMATURE GRANS ABSOLUTE 0.0 10*3/uL Normal <0.1 [facility] Comment on above: Performed By: #### L [id number] ####Investment Officer: MIGDALIA LINTONCARTER ([id number])[facility] (SB[facility]AB)[address] IPF 2 Normal [facility] Comment on above: Performed By: #### L [id number] ####Investment Officer: MIGDALIA ESCALONAVASILIY ([id number])[facility] (SB[facility]AB)[address] Lymphocytes (Bld) [#/Vol] 0.9 10*3/uL Low 1.0-4.3 [facility] Comment on above: Performed By: #### L [id number] ####Investment Officer: MIGDALIA JOHNSON ([id number])[facility] ([facility])[address] Lymphocytes/100 WBC (Bld) 10.0 % Low 15.0-45.0 [facility] Comment on above: Performed By: #### L [id number] ####Investment Officer: MIGDALIA LINTONCARTER ([id number])[facility] ([facility])[address] MCH (RBC) [Entitic mass] 29.6 pg Normal 26.0-34.0 [facility] Comment on above: Performed By: #### L [id number] ####Investment Officer: MIGDALIA ESCALONALILLYCARTER ([id number])[facility] ([facility]AB)[address] MCHC 31.9 % Normal 30.5-36.0 [facility] Comment on above: Performed By: #### L [id number] ####Investment Officer: MIGDALIA JOHNSON ([id number])[facility] (SB[facility])[address] MCV (RBC) [Entitic vol] 92.8 fL Normal 77.0-99.0 S [facility] Comment on above: Performed By: #### L [id number] ####Investment Officer: MIGDALIA JOHNSON ([id number])[facility] [place] (SBHLAB)[address] Monocytes (Bld) [#/Vol] 0.7 10*3/uL Normal 0.0-0.9 [facility] Comment on above: Performed By: #### L [id number] ####Investment Officer: MIGDALIA JOHNSON ([id number])[facility] ([facility])[address] Monocytes/100 WBC (Bld) 7.6 % Normal 5.0-13.0 S [facility] Comment on above: Performed By: #### L [id number] ####Investment Officer: MIGDALIA JOHNSON ([id number])[facility] ([facility])[address] NEUTROPHILS ABSOLUTE 7.1 10*3/uL Normal 1.8-7.5 [facility] Comment on above: Performed By: #### L [id number] ####Investment Officer: MIGDALIA JOHNSON ([id number])[facility] ([facility])[address] Neutrophils/100 WBC (Bld) 81.2 % Normal 38.0-82.0 [facility] Comment on above: Performed By: #### L [id number] ####Investment Officer: MIGDALIA JOHNSON ([id number])[facility] ([facility])[address] NRBC 0.0 /100 WBCs Normal 0.0-2.0 [facility] Comment on above: Performed By: #### L [id number] ####Investment Officer: MIGDALIA JOHNSON ([id number])[facility] ([facility])[address] Platelet mean volume (Bld) [Entitic vol] 10.0 fL Normal 9.0-12.7 [facility] Comment on above: Performed By: #### L [id number] ####Investment Officer: MIGDALIA DOHERTYCER ([id number])[facility] ([facility])[address] Platelets (Bld) [#/Vol] 137 10*3/uL Low 140-440 [facility] Comment on above: Performed By: #### L [id number] ####Investment Officer: MIGDALIA DOHERTYCER ([id number])[facility] ([facility]AB)[address] RBC (Bld) [#/Vol] 4.16 10*6/uL Normal 3.80-5.20 [facility] Comment on above: Performed By: #### L [id number] ####Investment Officer: MIGDALIA DOHERTYCER ([id number])[facility] (SB[facility])[address] WBC (Bld) [#/Vol] 8.7 10*3/uL Normal 3.6-10.7 [facility] Comment on above: Performed By: #### L [id number] ####Investment Officer: MIGDALIA LINTONCARTER ([id number])[facility] (SBHLAB)[address] [place] [address] No Panel Informationon 04-21 There is no interpretation needed for this exam. IMAGING Nursing Noteon 04-21-2025 Nursing Note Warm blankets applied. BP 168/85 81 93% on 2L Normal [facility] Nursing Note Pt states nausea is better. 168/90 81 94% on 2L. Sons at bedside Normal [facility] Nursing Note Pt c/o nausea, zofran given per Dr Henderson order. Normal [facility] Nursing Note Arrived in sds, A+O x3, sons at bedside. IV K+ via pump Normal [facility] Op Noteon 04-21-2025 Op Note [facility] MA[facility] OR [address] [place] [address] Dept: [phone] Operative Report Patient Name: Pily Barnes Date [...] to normal structures that can lead to watermelon inspector problems of pain or dysfunction, wound healing [...] patient's ASA was verified by the nurse hot dimpling machine operator and the anesthesia staff. Fire risk was [...] was compressed as verified on fluroscopic images. Pfb-Gxan-Lssdrvbd was felt to be less than 25 mm on ap/lat images. Using the out center lead consultant a distal locking screw was pl (more content not included)... Normal [facility] Op Note Date: 04/21/2025 Location: [facility] OR Name: Pily Barnes, : 1950, Diagnosis Pre-op Diagnosis * Closed displaced intertrochanteric fracture of right femur, initial encounter ([facility]) [S72.141A] Post-op Diagnosis * Closed displaced intertrochanteric fracture of right femur, initial encounter ([facility]) [S72.141A] Procedures RIGHT ORIF, FRACTURE, FEMUR, INTERTROCHANTERIC, WITH INTRAMEDULLARY IMPLANT INSERTION [id number] - VA TX INTER/VA/SUBTRCHNTRI C FEM FX IMED IMPLTSCREW Surgeons * [...] Action Serial No. Nail NAIL INTERTAN 10S [id number] - [id number] Implanted Screw KIT SCR 95MM 4.5MM INTERTAN - [id number] Implanted Screw SCREW BN 5MM 30MM TRGN FEM - [id number] Implanted Staff: Test Evaluator: Ranjeet Chappell RN Physician Fondant Cooker: Sherry Enriquez PA-C Senior Loan Processor: Beto Diallo RT (R) Relief Test Evaluator: Chela Soliz RN Scrub Person: Librado Allen [...] Beverly in 2 weeks -Ortho to follow. [facility] Progress Noteon 04-21-2025 Progress Note Physician Response Please review the following and provide your response below. Please clarify which of the following accurately describes the patient's CKD Stage: no CKD This documentation will become part of the patient's medical record. Normal [facility] Progress Note Nutrition rescreen complete. Pt assigned a level one for nutrition care. Normal [facility] Progress Note ASSESSMENT: 74 y.o. female with R comminuted intertrochanteric femur fracture PLAN: -Plan for OR for R hip CMN today 04/21/[address] Beverly -NPO -Cleared -Consented -Pre-op workup in process -Ice -Bedrest -[place] -Admit to medicine -Pain control & medical management per primary -Please hold DVT prophylaxis in anticipation of OR, may resume post-op per medicine -Please page cotton stripper ortho resident with any questions/concerns. [facility] XR Pelvis 1 or 2 Viewson Radiology Study observation (narrative) [facility] ECG 12-LEADon 04-20-2025 ECG 12-LEAD IMPRESSION: Sinus rhythm Incomplete left bundle branch block LVH with secondary repolarization abnormality Electronically Signed On 04-20-2025 02:50:38 EDT by Preet Aquino [facility] No Panel InformationOrdered By: Preet Aquino on 04-20-2025 P [place]enton 29 degrees [facility] [email or web address] Work Phone: [place] Interval 198 ms [facility] Work Phone: QRS [place] -28 degrees [facility] [place] [facility] Work Phone: QRSD Interval 116 ms [facility] [employer] Work Phone: QT Interval 399 ms [facility] Work Phone: QTC Interval 426 ms [facility] [place] [facility] Work Phone: T Wave [place] 84 degrees [facility] [email or web address] Work Phone: [facility] [email or web address] Work Phone: No Panel Informationon 04-20 Sinus rhythm Incomplete left bundle branch block LVH with secondary repolarization abnormality Electronically Signed On 04-20-2025 02:50:38 EDT by Preet Aquino Preet Calix MD - 04/20/2025 IMPRESSION: Sinus rhythm Incomplete left bundle branch block LVH with secondary repolarization abnormality Electronically Signed On 04-20-2025 02:50:38 EDT by Preet Aquino [facility] [email or web address] Vital signsOrdered By: Kulwinder Aquino on 04-20-2025 Heart rate 69 /min bpm [facility] Work Phone: BASIC METABOLIC PANELon 04-04 Anion gap [Moles/Vol] 7 mmol/L Normal 3-13 [facility] Comment on above: Performed By: #### L [id number] ####Investment Officer: MIGDALIA JOHNSON ([id number])[facility] (HLAB)[address] Calcium [Mass/Vol] 7.2 mg/dL Low 8.8-10.0 [facility] Comment on above: Performed By: #### L [id number] ####Investment Officer: MIGDALIA JOHNSON ([id number])[facility] (SBHLAB)[address] Chloride [Moles/Vol] 116 mmol/L High 98-107 [facility] Comment on above: Performed By: #### L [id number] ####Investment Officer: MIGDALIA JOHNSON ([id number])[facility] ([facility])[address] CO2 [Moles/Vol] 18 mmol/L Low 23-31 [facility] Comment on above: Performed By: #### L [id number] ####Investment Officer: MIGDALIA JOHNSON ([id number])[facility] ([facility] Creatinine [Mass/Vol] 0.62 mg/dL Normal 0.57-1.11 [facility] Comment on above: Performed By: #### L [id number] ####Investment Officer: MIGDALIA JOHNSON ([id number])[facility] ([facility] [place] [address] GLOMERULAR FILTRATION RATE ML/MIN/1.73 SQ M.PREDICTED >90.0 Normal >60.0 [facility] Comment on above: Result Comment: Calc ulation based on the Chronic Kidney Disease Epidemiology Collaboration (CKD-EPI) equation refit without adjustment for race Performed By: #### L [id number] ####Investment Officer: MIGDALIA JOHNSON ([id number])[facility] ([facility])[address] [place] [address] Glucose [Mass/Vol] 93 mg/dL Normal 82-115 [facility] Comment on above: Performed By: #### L [id number] ####Investment Officer: MIGDALIA JOHNSON ([id number])[facility] ([facility] Potassium [Moles/Vol] 3.2 mmol/L Low 3.5-5.1 [facility] Comment on above: Result Comment: [facility] potassium values may be up to 0.5 mmol/L lower than serum values. Performed By: #### L [id number] ####Investment Officer: MIGDALIA JOHNSON ([id number])[facility] ([facility] [place] [address] [place] Sodium [Moles/Vol] 141 mmol/L Normal 136-145 [facility] Comment on above: Performed By: #### L [id number] ####Investment Officer: MIGDALIA JOHNSON ([id number])[facility] (SBHLAB)[address] Urea nitrogen [Mass/Vol] 20 mg/dL Normal 9-23 [facility] Comment on above: Performed By: #### L [id number] ####Investment Officer: MIGDALIA JOHNOSN ([id number])[facility] (SBHLAB)[address] BLOOD TYPE AND SCREEN GELon 04-19-2025 ABO GROUPING AB Normal [facility] Comment on above: Performed By: #### L [id number] ####Investment Officer: MIGDALIA JOHNSON ([id number])[facility] ([facility])[address] RH TYPE IN BLOOD Positive Normal [facility] Comment on above: Performed By: #### L [id number] ####Investment Officer: MIGDALIACATHI [facility]ONAGUNN[facility] ([id number])[facility] BLOOD BANK ([facility])[address] Basic metabolic 1998 panelon 04-19-2025 Anion gap [Moles/Vol] 7 mmol/L 3 - 13 mmol/L [facility] Calcium [Mass/Vol] 7.2 mg/dL Low 8.8 - 10. 0 mg/dL [facility] Chloride [Moles/Vol] 116 mmol/L High 98 - 10 7 mmol/L [facility] CO2 [Moles/Vol] 18 mmol/L Low 23 - 31 mmol/L [facility] Creatinine [Mass/Vol] 0.62 mg/dL 0.57 - 1.11 mg/dL [facility] GFR/1.73 sq M.predicted (S/P/Bld) [Vol rate/Area] - PINF [facility] Comment on above: Calculation based on the Chronic Kidney Disease Epidemiology Collaboration (CKD-EPI) equation refit without adjustment for race Glucose [Mass/Vol] 93 mg/dL 82 - 115 mg/dL [facility] Interpretation and review of laboratory results Abnormal [facility] Potassium [Moles/Vol] 3.2 mmol/L Low 3.5 - 5.1 mmol/L [facility] Comment on above: Plasma potassium dylon ues may be up to 0.5 mmol/L lower than serum values. Sodium [Moles/Vol] 141 mmol/L 136 - 145 mmol/L [facility] Urea nitrogen [Mass/Vol] 20 mg/dL 9 - 23 mg/d L [facility] Blood type and Crossmatch pa alvaro (Bld)on 04-19-2025 ABO group Nom (Bld) AB [facility] Blood group antibody screen GEL Ql Negative [facility] D [facility]) [facility] CBC W Auto Differential pane l (Bld)on 04-19-2025 Basophils (Bld) [#/Vol] 0 10*3/uL 0.0 - 0.2 10*3/uL [facility] Basophils/100 WBC (Bld) 0.3 % 0.0 - 2.0 % [facility] Eosinophils (Bld) [#/Vol] 0.1 10*3/uL 0. 0 - 0.5 10*3/uL [facility] Eosinophils/100 WBC (Bld) 0.7 % 0.0 - 6.0 % [facility] Erythrocyte distribution width (RBC) [Ratio] 13.3 % 11.5 - 15.0 % [facility] Hematocrit (Bld) [Volume fraction] 40.6 % 35.0 - 47.0 % [facility] Hemoglobin (Bld) [Mass/Vol] 13.5 g/dL 11.7 - 16.0 g/dL [facility] Immature granulocytes (Bld) [#/Vol] 0.1 10*3/uL High NINF - 0.1 10*3/uL [facility] Immature granulocytes/100 WBC (Bld) 0.5 % 0.0 - 2.0 % [facility] Interpretation and review of laboratory results Abnormal [facility] Lymphocytes (Bld) [#/Vol] 0.7 10*3/uL Low 1. 0 - 4.3 10*3/uL [facility] Lymphocytes/100 WBC (Bld) 6.6 % Low 15 .0 - 45.0 % [facility] MCH (RBC) [Entitic mass] 30.1 pg 26. 0 - 34.0 pg [facility] MCHC (RBC) [Mass/Vol] 33.3 % 30.5 - 36.0 % [facility] MCV (RBC) [Entitic vol] 90.4 fL 77.0 - 99.0 fL [facility] Monocytes (Bld) [#/Vol] 0.5 10*3/uL 0.0 - 0.9 10*3/uL [facility] Monocytes/100 WBC (Bld) 4.5 % Low 5.0 - 13.0 % [facility] Neutrophils (Bld) [#/Vol] 9.2 10*3/uL High 1. 8 - 7.5 10*3/uL [facility] Neutrophils/100 WBC (Bld) 87.4 % High 38 .0 - 82.0 % [facility] Nucleated RBC/100 WBC (Bld) [Ratio] 0 % [facility] Platelet mean volume (Bld) [Entitic vol] 9.9 fL 9.0 - 12.7 fL [facility] Platelets (Bld) [#/Vol] 165 10*3/uL 140 - 440 10*3/uL [facility] RBC (Bld) [#/Vol] 4.49 10*6/uL 3.80 - 5.2 0 10*6/uL [facility] WBC (Bld) [#/Vol] 10.5 10*3/uL 3.6 - 10.7 10*3/uL [facility] CBC WITH AUTO DIFFERENTIALon 04-19-2025 Basophils (Bld) [#/Vol] 0.0 10*3/uL Normal 0.0-0.2 [facility] Comment on above: Performed By: #### L [id number] ####Investment Officer: MIGDALIA JOHNSON ([id number])[facility] (SB[facility])[address] Basophils/100 WBC (Bld) 0.3 % Normal 0.0-2.0 S [facility] Comment on above: Performed By: #### L [id number] ####Investment Officer: MIGDALIA JOHNSON ([id number])[facility] (SBHLAB)[address] Eosinophils (Bld) [#/Vol] 0.1 10*3/uL Normal 0.0-0.5 [facility] Comment on above: Performed By: #### L [id number] ####Investment Officer: MIGDALIA JOHNSON ([id number])[facility] (SBHLAB)[address] Eosinophils/100 WBC (Bld) 0.7 % Normal 0.0-6.0 [facility] Comment on above: Performed By: #### L [id number] ####Investment Officer: MIGDALIA JOHNSON ([id number])[facility] (SBAB)[address] Erythrocyte distribution width (RBC) [Ratio] 13.3 % Normal 11.5-15.0 [facility] Comment on above: Performed By: #### L [id number] ####Investment Officer: MIGDALIA JOHNSON ([id number])[facility] (SBAB)[address] Hematocrit (Bld) [Volume fraction] 40.6 % Normal 35.0-47.0 [facility] Comment on above: Performed By: #### L [id number] ####Investment Officer: MIGDALIA JOHNSON ([id number])[facility] (SBAB)[address] Hemoglobin (Bld) [Mass/Vol] 13.5 g/dL Normal 11.7-16.0 [facility] Comment on above: Performed By: #### L [id number] ####Investment Officer: MIGDALIA JOHNSON ([id number])[facility] (SBHLAB)[address] IMMATURE GRANS % 0.5 % Normal 0.0-2.0 [facility] Comment on above: Performed By: #### L [id number] ####Investment Officer: MIGDALIA JOHNSON ([id number])[facility] (SBAB)[address] IMMATURE GRANS ABSOLUTE 0.1 10*3/uL High <0.1 [facility] Comment on above: Performed By: #### L [id number] ####Investment Officer: MIGDALIA LINTONCARTER ([id number])[facility] (SBHLAB)[address] Lymphocytes (Bld) [#/Vol] 0.7 10*3/uL Low 1.0-4.3 [facility] Comment on above: Performed By: #### L [id number] ####Investment Officer: MIGDALIA LINTONCARTER ([id number])[facility] (SBHLAB)[address] Lymphocytes/100 WBC (Bld) 6.6 % Low 15.0-45.0 [facility] Comment on above: Performed By: #### L [id number] ####Investment Officer: MIGDALIA JOHNSON ([id number])[facility] (SBHLAB)[address] MCH (RBC) [Entitic mass] 30.1 pg Normal 26.0-34.0 [facility] Comment on above: Performed By: #### L [id number] ####Investment Officer: MIGDALIA LINTONCARTER ([id number])[facility] (SBHLAB)[address] MCHC 33.3 % Normal 30.5-36.0 [facility] Comment on above: Performed By: #### L [id number] ####Investment Officer: MIGDALIA JOHNSON ([id number])[facility] (SBHLAB)[address] MCV (RBC) [Entitic vol] 90.4 fL Normal 77.0-99.0 S [facility] Comment on above: Performed By: #### L [id number] ####Investment Officer: MIGDALIA JOHNSON ([id number])[facility] (SBHLAB)[address] [place] [address] [place] Monocytes (Bld) [#/Vol] 0.5 10*3/uL Normal 0.0-0.9 [facility] Comment on above: Performed By: #### L [id number] ####Investment Officer: MIGDALIA JOHSNON ([id number])[facility] (SBHLAB)[address] Monocytes/100 WBC (Bld) 4.5 % Low 5.0-13.0 [facility] Comment on above: Performed By: #### L [id number] ####Investment Officer: MIGDALIA JOHNSON ([id number])[facility] (SBHLAB)[address] NEUTROPHILS ABSOLUTE 9.2 10*3/uL High 1.8-7.5 [facility] Comment on above: Performed By: #### L [id number] ####Investment Officer: MIGDALIA JOHNSON ([id number])[facility] (SBHLAB)[address] Neutrophils/100 WBC (Bld) 87.4 % High 38.0-82.0 [facility] Comment on above: Performed By: #### L [id number] ####Investment Officer: MIGDALIA JOHNSON ([id number])[facility] (SBHLAB)[address] NRBC 0.0 /100 WBCs Normal 0.0-2.0 [facility] Comment on above: Performed By: #### L [id number] ####Investment Officer: MIGDALIA JOHNSON ([id number])[facility] (SBHLAB)[address] Platelet mean volume (Bld) [Entitic vol] 9.9 fL Normal 9.0-12.7 [facility] Comment on above: Performed By: #### L [id number] ####Investment Officer: MIGDALIA JOHNSON ([id number])[facility] (SBHLAB)[address] [place] [address] [place] Platelets (Bld) [#/Vol] 165 10*3/uL Normal 140-440 [facility] Comment on above: Performed By: #### L [id number] ####Investment Officer: MIGDALIA JOHNSON ([id number])[facility] (SBHLAB)[address] RBC (Bld) [#/Vol] 4.49 10*6/uL Normal 3.80-5.20 [facility] Comment on above: Performed By: #### L [id number] ####Investment Officer: MIGDALIA JOHNSON ([id number])[facility] (SBHLAB)[address] [place] [address] WBC (Bld) [#/Vol] 10.5 10*3/uL Normal 3.6-10.7 [facility] Comment on above: Performed By: #### L [id number] ####Investment Officer: MIGDALIA JOHNSON ([id number])[facility] (SBHLAB)[address] [place] [address] CT Abdomen and Pelvis WO and W contrast Ebenezer 04-19-2025 Patient Name: PILY BARNES : 1950 [id number] Exam Date/Time: 04/19/2025 16:14 Procedure: CT CHEST [...] Anterior cervical fusion, partially included in the zqtum-th-pgpz. There is no acute fracture of the [...] There is no significant central canal stenosis. [facility] Cee Del Angel MD - [...] Anterior cervical fusion, partially included in the drenr-ic-ssig. There is no acute fracture of the [...] Electronically Signed Date/Time: 04/19/2025 5:23 PM EDT [facility] Radiology Study observation (narrative) [facility] CT CERVICAL SPINE WO IV CONT [facility] 04-19-2025 CT CERVICAL SPINE WO IV [...] PM EDT Pt arrived via EMS from [facility] after a fall in [...] and able to answer questions appropriately. Normal [facility] CT CHEST ABDOMEN PELVIS WO C [facility] 04-19-2025 CT CHEST ABDOMEN PELVIS WO CONTRAST Patient Name: PILY BARNES : 1950 [facility]#: [id number] Exam Date/Time: 04/19/2025 16:14 Procedure: CT CHEST [...] Anterior cervical fusion, partially included in the basuo-ke-xerv. There is no acute fracture of the [...] PM EDT Pt arrived via EMS from [facility] living facility after a fall in the [...] and able to answer questions appropriately. Normal [facility] CT Cervical spine WO joselin ton 04-19-2025 [...] the distal internal carotid and vertebral arteries [facility] Franco Stricklandcia Inocencio DO - [...] Electronically Signed Date/Time: 04/19/2025 4:59 PM EDT [facility] Radiology Study observation (narrative) [facility] alth CT FEMUR RIGHT WO IV [...] PM EDT Pt arrived via EMS from [facility] living [facility] after a fall in the [...] and able to answer questions appropriately. Normal [facility] CT HEAD WO IV CONTRASTon CT HEAD [...] PM EDT Pt arrived via EMS from [place] [facility] after a fall in [...] and able to answer questions appropriately. Normal [facility] CT Head WO contraston 2024 Patient Name: [...] the distal internal carotid and vertebral arteries [facility] Kendy Strickland DO - 04/19/2025 Patient Name: PILY BARNES : 1950 [facility]#: [id number] Exam Date/Time: 04/19/2025 16:14 Procedure: CT HEAD [...] Electronically Signed Date/Time: 04/19/2025 4:59 PM EDT [facility] Radiology Study observation (narrative) [facility] CT LUMBAR SPINE RECONon 04-04 CT LUMBAR [...] Anterior cervical fusion, partially included in the ojnvg-ig-ghli. There is no acute fracture of the [...] PM EDT Pt arrived via EMS from [facility] after a fall in the bathroom. Pt [...] and able to answer questions appropriately. Normal [facility] CT Lumbar spine WO contrasto n 04-19-2025 [...] Anterior cervical fusion, partially included in the plqco-jk-qblr. There is no acute fracture of the [...] There is no significant central canal stenosis. [facility] Cee Del Angel MD - 04/19/2025 Patient Name: PILY BARNES : 1950 [facility] [id number] Exam Date/Time: 04/19/2025 16:14 Procedure: CT LUMBAR [...] Anterior cervical fusion, partially included in the ecxxh-zo-pdyp. There is no acute fracture of the [...] Electronically Signed Date/Time: 04/19/2025 5:23 PM EDT [facility] Radiology Study observation (narrative) [facility] alth CT THORACIC SPINE RECONon CT [...] Anterior cervical fusion, partially included in the gumep-et-twwm. There is no acute fracture of the [...] PM EDT Pt arrived via EMS from [facility] after a fall in the bathroom. Pt [...] and able to answer questions appropriately. Normal [facility] CT Thigh - right WO contrast on 04-19-2025 1. Acute RIGHT femur intertrochanteric comminuted impaction fracture. Osteopenia. 2. Colonic diverticulosis. Report Dictated on Electronically Signed By: Cee Del Angel MD Electronically Signed Date/Time: 04/19/2025 5:50 PM EDT [facility] Patient Name: PILY BARNES : 1950 [...] diverticuli are present. Fecal retention is present. [facility] Cee Del Angel MD - 04/19/2025 [...] Electronically Signed Date/Time: 04/19/2025 5:50 PM EDT [facility] Radiology Study observation (narrative) [facility] CT Thoracic spine WO contras ton 04-19-2025 Patient Name: PILY BARNES : 1950 [facility] [id number] Exam Date/Time: 04/19/2025 16:14 Procedure: CT THORACIC [...] Anterior cervical fusion, partially included in the kjkbk-ty-hppg. There is no acute fracture of the [...] There is no significant central canal stenosis. [facility] Cee Del Angel MD - 04/19/2025 Patient Name: PILY BARNES : 1950 [facility] [id number] Exam Date/Time: 04/19/2025 16:14 Procedure: CT THORACIC [...] Anterior cervical fusion, partially included in the rtanj-yt-yuog. There is no acute fracture of the [...] Electronically Signed Date/Time: 04/19/2025 5:23 PM EDT [facility] Radiology Study observation (narrative) [facility] iwona Consulton 04-19-2025 Consult Ortho Consult Patient: Pily Barnes Date of : 1950 Acct: [id number] PCP: No primary care provider on file. [...] mouth daily. 09/27/22 Historical Provider, nystatin (Mycostatin) 934776 UNIT/GM powder Apply 1 Application topically 2 [...] Resource Strain: Low Risk (03/01/2022) Received from [facility] Overall Financial Resource Strain (CARDIA) Difficulty of Paying Living Expenses: Not hard at all Food Insecurity: No Food Insecurity (03/01/2022) Received from [facility] Hunger Vital Sign Worried About Running [...] for Housing (more content not included)... Normal [facility] ED Nursing Noteon 04-19-2025 ED Nursing Note Pt back to room from imaging. Normal [facility] ED Nursing Note Pt off unit to imaging. Normal [facility] ED Nursing Note Nurse Chel called for update Normal [facility] ED Nursing Note Pt arrived via EMS from [place] [facility] facility after a fall in [...] and able to answer questions appropriately. Normal [facility] ED Provider Noteon ED Provider Note Emergency Department Encounter [facility] ED Patient: Pily Barnes : 1950 [...] with secondary repolarization abnormality Rhythm Strip: The library monitor was ordered secondary to the patient's [...] (Consults) Discussed care with: Discussed case with senior billing consultant, admitting team. They agree with current work up and management. They will evaluate and provide further recommendations, please refer to their note for detailed explanation. They agree to admit the patient for further workup and management. Discussed case with senior billing consultant (more content not included)... [facility] ED Provider Note EMERGENCY DEPARTMENT ENCOUNTER Pt [...] 1 tablet by mouth daily. nystatin (Mycostatin) 188192 UNIT/GM powder Apply 1 Application topically 2 [...] Response: Oriented Best Motor Response: Follows commands [place] Coma Scale Score: 15 PHYSICAL EXAM ED [...] Signed David (more content not included)... Normal [facility] Laboratory - Coagulationon 0 04-19-2025 PT Coag (Bld) [Time] 10.4 s 9.0 - 12.0 s [facility] No Panel Informationon 04-19 Acute intertrochanteric comminuted fracture of the right proximal femur. Osteopenia. Report Dictated on Electronically Signed By: Cee Del Angel MD Electronically Signed Date/Time: 04/19/2025 8:00 PM [facility] CHEST (with CT thoracic spine): 1. [...] Electronically Signed Date/Time: 04/19/2025 5:23 PM T [facility] No acute intracranial hemorrhage or [...] DO Electronically Signed Date/Time: 04/19/2025 4:59 PM [facility] No Panel InformationOrdered By: Cee Del Angel on 04-19-2025 [employer] Phone: No Panel InformationOrdered By: Kendy Strickland on 04-19-2025 [employer] Phone: PROTHROMBIN TIMEon 5 INR Coag (PPP) [Relative time] 1.0 {INR} Normal 0.9-1.1 [facility] Comment on above: Result Comment: Jason mmended [...] Myocardial Infarction Performed By: #### L [id number] ####Investment Officer: MIGDALIA JOHNSON ([id number])[facility] (SBHLAB)[address] [place] [address] PT Coag (PPP) [Time] 10.4 s Normal 9.0-12.0 [facility] Comment on above: Performed By: #### L [id number] ####Investment Officer: MIGDALIA JOHNSON ([id number])[facility] (SBAB)[address] [place] [address] PT Coag (Bld) [Time]on 04-19 INR Coag (PPP) [Relative time] 1 {INR} 0.9 - 1.1 [facility] Comment on above: Recommended Anticoag ulant [...] Interpretation and review of laboratory results Normal [facility] XR Chest Single viewon 04-19 Lines, tubes, [...] Electronically Signed Date/Time: 04/19/2025 10:52 PM EDT [facility] Patient Name: PILY BARNES : 1950 Exam Date/Time: 04/19/2025 22:27 Procedure: XR CHEST 1 VIEW Ordering Provider: INIGUEZ DANIEL Reason For Exam: pre-op EXAMINATION: CHEST RADIOGRAPH (SINGLE VIEW AP OR PA) Clinical History: pre-op Comparison: Chest CT 04/19/2025 RESULT: See impression [facility] Albino Gamez MD - 04/19/2025 [...] Electronically Signed Date/Time: 04/19/2025 10:52 PM EDT [facility] Radiology Study observation (narrative) [facility] alth XR Chest Single viewOrdered By: Albino Gamez on 04-19-2025 [facility] [email or web address] Work Phone: XR Femur - right 2 [...] midline without fracture. The bones are osteopenic. [facility] Cee Del Angel MD - [...] Electronically Signed Date/Time: 04/19/2025 8:00 PM EDT [facility] Radiology Study observation (narrative) [facility] alth XR Pelvis 1 or 2 [...] midline without fracture. The bones are osteopenic. [facility] Cee Del Angel MD - 04/19/2025 Patient Name: PILY BARNES : 1950 [facility] [id number] Exam Date/Time: 04/19/2025 19:20 Procedure: XR PELVIS [...] Electronically Signed Date/Time: 04/19/2025 8:00 PM EDT [facility] Radiology Study observation (narrative) [facility] Raffaele Chahal 09-16-2024 CNOV Office Visit (TOHSMN) PILY BARNES ([id number]) 1950 F Date Time Provider Department 09/16/24 2:00 PM MICHELL MATHIS [facility] During your visit today, we recorded the following information about you: Temperature Pulse Blood pressure Weight 98.4 degrees 56/minute 121/79 70.4 kg Height 1.524 m Michell Mathis MD 09/16/2024 3:25 PM Signed [facility] Template ID: [id number] SERVICE DATE: 09/16/2024 SERVICE TIME: 3:21 PM [...] TIME: 3:21 PM Referring Provider: MICHELL MATHIS [[id number]] Allergies As of Date: 09/16/2024 Noted Allergy [...] Order(s):CARDIOTHORA CIC PREOP EVALUATION [] Order #: [id number]: 1 Prescriptions as of 09/16/2024 - losartan [...] 11/21/2017 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 Normal [facility] CREATININE, BLOOD (POC)on Creatinine [Mass/Vol] 1.00 mg/dL 0.7 - 1.4 mg/dL [facility] GFR/1.73 sq M.predicted among non-blacks MDRD (S/P/Bld) [Vol rate/Area] 59 mL/min/{1.73_m2} mL/min/1.73 m2 [facility] Location:Radiology [facility], [address] [place] [address], [address] [place] [address] POINT OF CARE [facility] CTA CHEST (GATED) W IVCONon 09-16-2024 [...] AORTIC DIMENSIONS: AORTIC ROOT: 3.5 cm measured jmtjl-ee-slajh mid ASCENDING THORACIC AORTA: 4.6 cm , area 16.4 sq cm mid AORTIC ARCH: 3.5 cm mid DESCENDING THORACIC AORTA: 2.8 cm limited upper ABDOMEN: unremarkable BONES and SOFT TISSUES: degenerative changes of the thoracic spine. Surgical fixation hardware lower cervical spine Food Service Helper (topogram) images: No additional findings. IMPRESSION: Dilated ascending aorta at 4.6 cm, area 16.4 sq cm. Remainder of the thoracic aorta is normal in course, caliber, contour. No acute aortic pathology. Flooring Installer: PSCB Transcribe Date/Time: Sep 16 2024 2:27P Dictated by : ENMA HANEY MD This examination was interpreted and the report reviewed and electronically signed by: ENMA HANEY MD on Sep 16 2024 3:39PM EST [id number] Normal [facility] CNCOon 06-12-2024 CNCO Letter Text Normal [facility] CNPNon 04-03-2024 CNPN Telephone ([facility]) PILY BARNES ([id number]) 1950 F Date Time Provider Department 04/03/24 MICHELL MATHIS [facility] During your visit today, we recorded [...] Order(s):CARDIOTHORA CIC PREOP EVALUATION [] Order #: [id number]: 1 FUTURE CTA CHEST (GATED) W IVCON [[id number]] Order #: [id number] FUTURE Prescriptions as of 04/03/2024 - losartan [...] 12/16/2020 02/24/2022 (more content not included)... Normal [facility] CNOVon 03-21-2024 CNOV Office Visit (TOMN) PILY BARNES ([id number]) 1950 F Date Time Provider Department 03/21/24 10:30 AM MICHELL MATHIS [facility] During your visit today, we recorded the following information about you: Michell Mathis MD 03/21/2024 4:27 PM Signed [facility] Template ID: [id number] SERVICE DATE: 03/21/2024 SERVICE TIME: 4:10 PM [...] TIME: 4:10 PM Referring Provider: MICHELL MATHIS [[id number]] Allergies As of Date: 03/21/2024 Noted Allergy [...] of artery or arteriole (HCC) [I77.9] Order(s):CARDIOTHORA [facility] PREOP EVALUATION [] Order #: [id number]: 1 Prescriptions as of 03/21/2024 - losartan [...] Depression [F32.A] (more content not included)... Normal [facility] CNJOSÉ LUIS Office Visit (BONITA) PILY BARNES ([id number]) 1950 F Date Time Provider Department 03/21/24 7:15 AM JORGE ZELAYA During your visit today, we recorded the following information about you: Pulse Blood pressure Weight Height 62/minute 144/90 72.6 kg 1.524 m Jorge Zelaya MD 03/21/2024 6:49 PM Signed [facility] Department of Cardiovascular Medicine SECTION OF CARDIOVASCULAR IMAGING OUTPATIENT VISIT DATE 03/21/2024 OUTPATIENT VISIT TYPE CONSULTATION PRIMARY CARE PHYSICIAN: Ashu Ricci [id number] [id number] REFERRING PHYSICIAN Michell Mathis [address] [id number] CHIEF COMPLAINT: Patient presents with: Consult TAA [...] is a 73 year old female from [place], [place] here today for cardiovascular evaluation related [...] to have a further evaluation from a china and silverware salesperson in [facility]; therefore, PCP referred patient here to have a further assessment. Patient currently herrmann not have a primary china and silverware salesperson. She reports SOB on exertion. She denies [...] Laterality Date COLONOSCOPY [facility]J 11/16/2023 5 cm hiatal [...] (MYCOSTATIN) powderApply (more content not included)... Normal [facility] CREATININE BLDon 03-21-2024 Creatinine [Mass/Vol] 1.05 mg/dL High 0.58-0.96 [facility] Comment on above: Order Comment: Speci kirti Type: BLOOD SPECIMENOrdering Facility: [facility] Address: [address] [place] [address] Performed By: #### C RET1, 88237-2, LIPNF, 73946-6 ####[facility] LABCLIA [id number] [place] [address] [place] Creatinine and Glomerular filtration rate.predicted panel (S/P/Bld) 56 mL/min/1.73m??? Low >=60 [facility] Comment on above: Order Comment: Arielle cotto Type: BLOOD SPECIMENOrdering Facility: [facility] Address: [address] [place] [address] Result Comment: Christina george Glomerular Filtration Rate [...] actual GFR. Performed By: #### C RET1, 74669-8, LIPHUGO, 96429-3 ####[facility] LABCLIA [id number] [place] [address] [place] [facility] Comprehensive metabolic 2000 panelon 03-21-2024 Albumin [Mass/Vol] 4.4 g/dL 3.9 - 4.9 g/dL [facility] ALP [Catalytic activity/Vol] 105 U/L 34 - 123 U/L [facility] ALT [Catalytic activity/Vol] 22 U/L 7 - 38 U/L [facility] Anion gap [Moles/Vol] 16 mmol/L High 8 - 15 mmol/L [facility] AST [Catalytic activity/Vol] 23 U/L 13 - 35 U/L [facility] Bilirubin [Mass/Vol] 0.5 mg/dL 0.2 - 1 .3 mg/dL [facility] Calcium [Mass/Vol] 10.1 mg/dL 8.5 - 10. 2 mg/dL [facility] Chloride [Moles/Vol] 104 mmol/L 98 - 10 7 mmol/L [facility] CO2 [Moles/Vol] 21 mmol/L Low 22 - 30 mmol/L [facility] Creatinine [Mass/Vol] 1.03 mg/dL High 0.58 - 0.96 mg/dL [facility] GFR/1.73 sq M.predicted among non-blacks MDRD (S/P/Bld) [Vol rate/Area] 58 mL/min/{1.73_m2} Low - PINF [facility] Comment on above: Estimated Glomerular Filtration Rate [...] [Mass/Vol] 74 mg/dL 74 - 99 mg/dL [facility] Comment on above: The [place] Diabete s Association (ADA) provides guidance for [...] Standards of Medical Care in Diabetes 2016, [place] Diabetes Association. Diabetes Care. 2016.39(Suppl 1). Potassium [Moles/Vol] 4.4 mmol/L 3.7 - 5.1 mmol/L [facility] Protein [Mass/Vol] 7.4 g/dL 6.3 - 8.0 g/dL [facility] Sodium [Moles/Vol] 141 mmol/L 136 - 144 mmol/L [facility] Urea nitrogen [Mass/Vol] 17 mg/dL 7 - 21 mg/d L [facility] Albumin [Mass/Vol] 4.4 g/dL Normal 3.9-4.9 [facility] Comment on above: Order Comment: Speci men Type: BLOOD SPECIMENOrdering Facility: [facility] Address: [address] [place] [address] Performed By: #### C RET1, 08593-8, LIPNF, 45604-4 ####[facility] LABIA [id number] [place] [address] [place] ALP [Catalytic activity/Vol] 105 U/L Normal 34-123 [facility] Comment on above: Order Comment: Speci men Type: BLOOD SPECIMENOrdering Facility: [facility] Address: [address] [place] [address] Performed By: #### C RET1, 13619-6, LIPNF, 65848-4 ####[facility] LABIA [id number] [place] [address] [place] ALT [Catalytic activity/Vol] 22 U/L Normal 7-38 [facility] Comment on above: Order Comment: Speci men Type: BLOOD SPECIMENOrdering Facility: [facility] Address: [address] [place] [address] Performed By: #### C RET1, 54074-3, LIPNF, 68962-7 ####[facility] LABCLIA [id number] [place] [address] [place] Anion gap [Moles/Vol] 16 mmol/L High 8-15 [facility] Comment on above: Order Comment: Speci men Type: BLOOD SPECIMENOrdering Facility: [facility] Address: [address] [place] [address] Performed By: #### C RET1, 60264-1, LIPNF, 69577-6 ####[facility] LABCLIA [id number] [place] [address] [place] AST [Catalytic activity/Vol] 23 U/L Normal 13-35 [facility] Comment on above: Order Comment: Speci men Type: BLOOD SPECIMENOrdering Facility: [facility] Address: [address] [place] [address] Performed By: #### C RET1, 77289-7, LIPNF, 61815-6 ####[facility] LABCLIA [id number] [place] [address] [place] Bilirubin [Mass/Vol] 0.5 mg/dL Normal 0.2-1.3 [facility] Comment on above: Order Comment: Speci men Type: BLOOD SPECIMENOrdering Facility: [facility] Address: [address] [place] [address] Performed By: #### C RET1, 62012-2, LIPNF, 38865-7 ####[facility] LABCLIA [id number] [place] [address] [place] Calcium [Mass/Vol] 10.1 mg/dL Normal 8.5-10.2 [facility] Comment on above: Order Comment: Speci men Type: BLOOD SPECIMENOrdering Facility: [facility] Address: [address] [place], [place] [address] Performed By: #### C RET1, 07638-8, LIPNF, 77740-3 ####[facility] LABCLIA [id number] [place] [address] [place] Chloride [Moles/Vol] 104 mmol/L Normal 98-107 [facility] Comment on above: Order Comment: Speci men Type: BLOOD SPECIMENOrdering Facility: [facility] Address: [address] [place] [address] Performed By: #### C RET1, 19915-0, LIPNF, 77709-2 ####[facility] LABIA [id number] [place] [address] [place] CO2 [Moles/Vol] 21 mmol/L Low 22-30 [facility] Comment on above: Order Comment: Speci men Type: BLOOD SPECIMENOrdering Facility: [facility] Address: [address] [place] [address] Performed By: #### C RET1, 20604-2, LIPNF, 51373-5 ####[facility] LABIA [id number] [place] [address] [place] Creatinine [Mass/Vol] 1.03 mg/dL High 0.58-0.96 [facility] Comment on above: Order Comment: Speci men Type: BLOOD SPECIMENOrdering Facility: [facility] Address: [address] [place] [address] Performed By: #### C RET1, 74783-4, LIPNF, 31355-8 ####[facility] LABIA [id number] [place] [address] [place] Creatinine and Glomerular filtration rate.predicted panel (S/P/Bld) 58 mL/min/1.73m??? Low >=60 [facility] Comment on above: Order Comment: Speci men Type: BLOOD SPECIMENOrdering Facility: [facility] Address: [address] [place] [address] Result Comment: Christina mated Glomerular Filtration Rate [...] actual GFR. Performed By: #### C RET1, 68929-1, LIPHUGO, 46236-1 ####[facility] LABIA [id number] [place] [address] [place] Glucose [Mass/Vol] 74 mg/dL Normal 74-99 [facility] Comment on above: Order Comment: Specflako cotto Type: BLOOD SPECIMENOrdering Facility: [facility] Address: [address] [place] [address] Result Comment: The [place] Diabetes Association (ADA) provides guidance for cutoff [...] Standards of Medical Care in Diabetes 2016, [place] Diabetes Association. Diabetes Care. 2016.39(Suppl 1). Performed By: #### C RET1, 32283-5, LIPNF, 71158-6 ####[facility] LABIA [id number] [place] [id number] [place] Potassium [Moles/Vol] 4.4 mmol/L Normal 3.7-5.1 [facility] Comment on above: Order Comment: Arielle men Type: BLOOD SPECIMENOrdering Facility: [facility] Address: [address] [place] [address] Performed By: #### C RET1, 15769-6, LIPNF, 26820-9 ####[facility] LABCLIA [id number] [place] [address] [place] Protein [Mass/Vol] 7.4 g/dL Normal 6.3-8.0 [facility] Comment on above: Order Comment: Speci men Type: BLOOD SPECIMENOrdering Facility: [facility] Address: [address] [place] [address] Performed By: #### C RET1, 45693-4, LIPNF, 35286-8 ####[facility] LABIA [id number] [place] [address] [place] Sodium [Moles/Vol] 141 mmol/L Normal 136-144 [facility] Comment on above: Order Comment: Speci men Type: BLOOD SPECIMENOrdering Facility: [facility] Address: [address] [place] [address] Performed By: #### C RET1, 82455-2, LIPNF, 13486-1 ####[facility] LABIA [id number] [place] [address] [place] Urea nitrogen [Mass/Vol] 17 mg/dL Normal 7-21 [facility] Comment on above: Order Comment: Speci men Type: BLOOD SPECIMENOrdering Facility: [facility] Address: [address] [place] [address] Performed By: #### C RET1, 03068-1, LIPNF, 02089-2 ####[facility] LABIA [id number] [place] [id number] [place] ECG COMPLETEon 03-21-2024 ECG COMPLETE Ventricular Rate : 62 BPM Atrial Rate : 62 BPM P-R Interval : 170 ms QRS Duration : 112 ms Q-T Interval : 432 ms QTC Calculation(Bazett) : 438 ms Calculated R Benton : -27 degrees Calculated T Benton : 157 degrees NORMAL SINUS RHYTHM LEFT VENTRICULAR HYPERTROPHY WITH REPOLARIZATION ABNORMALITY ( R in aVL , [employer] product ) ABNORMAL ECG Confirmed by IFTIKHAR SANDOVAL MD ([id number]) on 04/16/2024 9:37:20 AM NAME : PILY BARNES PID : [id number] : 1950 Gender : Female Race : ORD : [id number] Procedure Date : Mar 21 2024 06:41:44 Edit Date : Apr 16 2024 09:37:22 Diagnosis: NORMAL SINUS RHYTHM LEFT VENTRICULAR HYPERTROPHY WITH REPOLARIZATION ABNORMALITY ( R in aVL , [place] product ) ABNORMAL ECG Confirmed by IFTIKHAR SANDOVAL MD (217) on 04/16/2024 9:37:20 AM Test Reason : Location : 314 : J14 j1-4 Overread By : IFTIKHAR SANDOVAL MD Edited By : IFTIKHAR SANDOVAL MD Referred By : MICHELL MATHIS Acquired by : DARLING PATHAK [facility] ECHOon 03-21-2024 Echocardiography Echocardiography Report: Transthoracic Echo [facility] J1-5 Date of service: 03/21/2024 9:07:56 AM THEATER SPECIALIST Ordering physician: MICHELL MATHIS Indication: Re-evaluation of [...] * * Final * * * CC [facility] [facility] : [id number]. [id number] ynamicsSISUID Normal [facility] LIPID PANEL, NONFASTINGon Cholesterol [Mass/Vol] 215 mg/dL High NINF - 200 mg/dL [facility] Comment on above: <200 mg/dL, Desirabl e 200-239 mg/dL, Borderline high >239 mg/dL, High HDL Cholesterol, Nonfasting 75 mg/dL 39 - PINF mg/dL [facility] Comment on above: 40-59 mg/dL, Accepta ble >59 mg/dL, High: Negative risk factor for coronary heart disease <40 mg/dL, Low: Positive risk factor for coronary heart disease LDL Cholesterol, Nonfasting 121 mg/dL High NINF - 100 mg/dL [facility] Comment on above: <100 mg/dL, Optimal 100-129 mg/dL, Near optimal/above optimal 130-159 mg/dL, Borderline high 160-189 mg/dL, High >189 mg/dL, Very high Secondary prevention optimal LDL Cholesterol levels are recommended to be < 70 mg/dL LDL/HDL Ratio, Nonfasting 1.61 mg/dL NI NF - 2.54 mg/dL [facility] Comment on above: Reference: 1. National Cholesterol Education Program ATP III Guideline At-A-Glance Quick Desk Reference: National Heart, Lung, and Blood Palmer. National Institutes of Health. 2001: NIH Publication No. 01-3305. 2. An International Atherosclerosis Society position paper: global recommendations for the management of dyslipidemia: executive summary, Atherosclerosis. 2014: 232(2):410-413. Non HDL Cholesterol, Nonfasting 140 mg/dL High NINF - 130 mg/dL [facility] Comment on above: <130 mg/dL, Optimal 130-159 mg/dL, Near optimal/above optimal 160-189 mg/dL, Borderline high 190-219 mg/dL, High >219 mg/dL, Very high Secondary prevention optimal non HDL Cholesterol levels are recommended to be <100 mg/dL Total Chol/HDL Ratio, Nonfasting 2.87 mg/dL NINF - 5.10 mg/dL [facility] Triglycerides, Nonfasting 94 mg/dL NI NF - 150 mg/dL [facility] Comment on above: <150 mg/dL, Normal 150-199 mg/dL, Borderline high 200-499 mg/dL, High >499 mg/dL, Very high VLDL Cholesterol, Nonfasting 19 mg/dL NINF - 30 mg/dL [facility] Cholesterol [Mass/Vol] 215 mg/dL High <200 Cl [facility] Comment on above: Order Comment: Arielle cotto Type: BLOOD SPECIMENOrdering Facility: [facility] Address: [address] [place] [address] Result Comment: <200 mg/dL, Desirable 200-239 mg/dL, Borderline high >239 mg/dL, High Performed By: #### C RET1, 38303-0, LIPNF, 34882-8 ####[facility] LABCLIA [id number] [facility] [id number] [id number] [place] HDL CHOLESTEROL, NF 75 mg/dL Normal >39 [facility] Comment on above: Order Comment: Lilliani men Type: BLOOD SPECIMENOrdering Facility: [facility] Address: [address] [place] [address] Result Comment: 40-5 9 mg/dL, Acceptable >59 mg/dL, High: Negative risk factor for coronary heart disease <40 mg/dL, Low: Positive risk factor for coronary heart disease Performed By: #### C RET1, 10444-9, LIPNF, 99651-1 ####[facility] LABCLIA [id number] [place] [address] [place] LDL CHOLESTEROL, NF 121 mg/dL High <100 [facility] Comment on above: Order Comment: Speci men Type: BLOOD SPECIMENOrdering Facility: [facility] Address: [address] [place] [address] Result Comment: <100 mg/dL, Optimal 100-129 mg/dL, Near optimal/above optimal 130-159 mg/dL, Borderline high 160-189 mg/dL, High >189 mg/dL, Very high Secondary prevention optimal LDL Cholesterol levels are recommended to be < 70 mg/dL Performed By: #### C RET1, 72106-7, LIPNF, 32057-4 ####[facility] LABCLIA [id number] [address] STATES OF [facility] LDL/HDL RATIO, NF 1.61 mg/dL Normal <2.54 [facility] Comment on above: Order Comment: Speci men Type: BLOOD SPECIMENOrdering Facility: [facility] Address: [address] [place] [address] Result Comment: Refe rence: 1. National Cholesterol Education Program ATP III Guideline At-A-Glance Quick Desk Reference: National Heart, Lung, and Blood Palmer. National Institutes of Health. 2001: NIH Publication No. 01-3305. 2. An International Atherosclerosis Society position paper: global recommendations for the management of dyslipidemia: executive summary, Atherosclerosis. 2014: 232(2):410-413. Performed By: #### C RET1, 69847-5, LIPNF, 85945-4 ####[facility] LABCLIA [id number] [place] [address] [place] NON HDL CHOL, NF 140 mg/dL High <130 [facility] Comment on above: Order Comment: Speci men Type: BLOOD SPECIMENOrdering Facility: [facility] Address: [address] [place] [address] Result Comment: <130 mg/dL, Optimal 130-159 mg/dL, Near optimal/above optimal 160-189 mg/dL, Borderline high 190-219 mg/dL, High >219 mg/dL, Very high Secondary prevention optimal non HDL Cholesterol levels are recommended to be <100 mg/dL Performed By: #### C RET1, 47139-0, LIPNF, 51616-2 ####[facility] LABCLIA [id number] [place] [address] [place] T CHOL/HDL RATIO NF 2.87 mg/dL Normal <5.10 [facility] Comment on above: Order Comment: Speci men Type: BLOOD SPECIMENOrdering Facility: [facility] Address: [address] [place] [address] Performed By: #### C RET1, 81110-3, LIPNF, 50747-6 ####[facility] LABCLIA [id number] [place] [address] [place] TRIGLYCERIDES, NF 94 mg/dL Normal <150 [facility] Comment on above: Order Comment: Speci men Type: BLOOD SPECIMENOrdering Facility: [facility] Address: [address] [place] [address] Result Comment: <150 mg/dL, Normal 150-199 mg/dL, Borderline high 200-499 mg/dL, High >499 mg/dL, Very high Performed By: #### C RET1, 59529-4, LIPNF, 54786-0 ####[facility] LABCLIA [id number] [place] [address] [place] VLDL CHOLESTEROL, NF 19 mg/dL Normal <30 [facility] Comment on above: Order Comment: Speci men Type: BLOOD SPECIMENOrdering Facility: [facility] Address: [address] [place] [address] Performed By: #### C RET1, 25782-9, LIPNF, 74192-6 ####[facility] LABCLIA [id number] [place] [address] [place] NT PRO BNPon 03-21-2024 Natriuretic peptide.B prohormone N-Terminal [Mass/Vol] 146 pg/mL High NINF - 125 pg/mL [facility] NT-proBNP SerPl-mCncon 03-21 Natriuretic peptide.B prohormone N-Terminal [Mass/Vol] 146 pg/mL High <125 [facility] Comment on above: Order Comment: Speci men Type: BLOOD SPECIMENOrdering Facility: [facility] Address: [address] [place] [address] Performed By: #### C RET1, 33981-4, LIPNF, 79958-3 ####[facility] LABCLIA [id number] [address] [place] Natriuretic peptide.B prohor hector N-Terminal [Mass/Vol]on 03-21-2024 Interpretation and review of laboratory results Abnormal [facility] No Panel Informationon 03-21 Interpretation and review of laboratory results Abnormal [facility] CNOVon 03-04-2024 CNOV Office Visit (GSTNOR) PILY BARNES ([id number]) 1950 F Date Time Provider Department 03/04/24 [...] Laterality Date COLONOSCOPY [facility] INJ 11/16/2023 5 cm hiatal [...] intact. Conjunctiva/ (more content not included)... Normal [facility]PILY Mauro ([id number]) 1950 F Date Time Provider Department 02/21/24 MICHELL MATHIS [facility] During your visit today, we recorded the following information about you: Mag Harmon 02/21/2024 3:26 PM Addendum LOCAL PATIENT Received Routed [facility] Telephone Encounter from JANA Thompson Cameron [...] office for scheduling. Please call pt at [phone]. Patient Registration: Registration complete/updated: yes Insurance card(s) scanned in [facility] with in the past year: Yes Pt's [employer] is inactive. Ok to communicate to pt via [employer] not asked Medical Records: Records in [facility] (internal [facility] records): Yes Imaging in [facility] (internal [facility] records): Yes Care Everywhere - queried yes, downloaded Yes Linked Outside Organizations (list): [facility] Radiology Imaging Requested: yes Date: 02/21/24 Outside Hospital(s) requested imaging from: [facility]. Imaging will be received via Electronic Transfer Received: Yes Imaging uploaded: Yes via [employer] Waiting on additional: No. Missing (list): N/A Additional providers added to Care Teams: N/A Additional Notes/Comments: N/A Enct routed to: Yes, Cardiac NPM for triage Mag Kenny 02/21/2024 4:03 PM Signed Email sent to Raquel in file room at [facility], requesting image of CT. Magalex Harmon [...] REMINDER FED EX NEXT DAY 02-26-24 AW #[id number] Allergies As of Date: 02/21/2024 Noted Allergy Reaction SULFADIAZINE 03/16/2020 7 - Swelling Comments: Facial swelling MILK 03/18/2022 14 - Other: See Comments Comments: Abdominal bloating SEASONAL ALLERGIES 09/20/2017 5 - Intolerance SULFA (SULFONAMIDE ANTIBIOTICS) 09/20/2017 9 - Itching Date Reviewed: 11/14/2023 Reviewed by: Sharda Howard RN - Fully Assessed Reason for Visit: Referral Information [1213] New Patient Evaluation [154] Primary Visit Diagnosis:Aneurysm of ascending aorta without rupture (HCC) [I71.21] Other Visit Diagnoses:Diverticul itis [K57.92] Primary hypertension [I10] 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 [facility] PILY BARNES ([id number]) 1950 F Date Time Provider Department 02/21/24 MICHELL MATHISHSMN During your visit today, we recorded the following information about you: Oralia Adams 02/21/2024 3:12 PM Signed Insurance Card(s) scanned into [employer] Please register/advise Thank You! Kayla Penny 02/21/2024 [...] 11/14/2023 Encount (more content not included)... 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 PATIENT INFORMATION: Name: Pily Barnes : 1950 (home) [phone] (cell) Email: [email or web address] Referring Provider: No referring provider defined for [...] thyroid no (more content not included)... Normal [facility] Blood type and Crossmatch pa alvaro (Bld)on 12-17-2023 ABO group Nom (Bld) AB [facility] Blood group antibody screen GEL Ql Negative [facility] D Ag [facility]l [facility]) [facility] CBC W Auto Differential pane l (Bld)on 12-17-2023 Basophils (Bld) [#/Vol] 0.0 10*3/uL 0.0 - 0.2 10*3/uL [facility] Basophils/100 WBC (Bld) 0.2 % 0.0 - 2.0 % [facility] Eosinophils (Bld) [#/Vol] 0.0 10*3/uL 0. 0 - 0.5 10*3/uL [facility] Eosinophils/100 WBC (Bld) 0.5 % 0.0 - 6.0 % [facility] Erythrocyte distribution width (RBC) [Ratio] 13.5 % 11.5 - 15.0 % [facility] Hematocrit (Bld) [Volume fraction] 42.8 % 35.0 - 47.0 % [facility] Hemoglobin (Bld) [Mass/Vol] 14.0 g/dL 11.7 - 16.0 g/dL [facility] Immature granulocytes (Bld) [#/Vol] 0.0 10*3/uL NINF - 0.1 10*3/uL [facility] Immature granulocytes/100 WBC (Bld) 0.1 % 0.0 - 2.0 % [facility] Interpretation and review of laboratory results Abnormal [facility] th Lymphocytes (Bld) [#/Vol] 0.8 10*3/uL Low 1. 0 - 4.3 10*3/uL [facility] Lymphocytes/100 WBC (Bld) 9.9 % Low 15 .0 - 45.0 % [facility] MCH (RBC) [Entitic mass] 29.3 pg 26. 0 - 34.0 pg [facility] MCHC (RBC) [Mass/Vol] 32.7 % 30.5 - 36.0 % [facility] MCV (RBC) [Entitic vol] 89.5 fL 77.0 - 99.0 fL [facility] Monocytes (Bld) [#/Vol] 0.6 10*3/uL 0.0 - 0.9 10*3/uL [facility] [email or web address] Monocytes/100 WBC (Bld) 7.4 % 5.0 - 13.0 % [facility] [email or web address] Neutrophils (Bld) [#/Vol] 6.6 10*3/uL 1. 8 - 7.5 10*3/uL [facility] [email or web address] Neutrophils/100 WBC (Bld) 81.9 % 38 .0 - 82.0 % [facility] [email or web address] Nucleated RBC/100 WBC (Bld) [Ratio] 0.0 % [facility] [email or web address] Platelet mean volume (Bld) [Entitic vol] 9.2 fL 9.0 - 12.7 fL [facility] [email or web address] Platelets (Bld) [#/Vol] 180 10*3/uL 140 - 440 10*3/uL [facility] [email or web address] RBC (Bld) [#/Vol] 4.78 10*6/uL 3.80 - 5.2 0 10*6/uL [facility] [email or web address] WBC (Bld) [#/Vol] 8.0 10*3/uL 3.6 - 10.7 10*3/uL [facility] CT Abdomen WO contraston 1. Sigmoid colonic [...] DO Electronically Signed Date/Time: 12/17/2023 3:56 PM [facility] Patient Name: PILY BARNES : 1950 [place] He[facility]#: [id number] Exam Date/Time: 12/17/2023 15:44 Procedure: CT ABDOMEN [...] spondylosis. Slight anterolisthesis of L4 on L5. [facility] Nathanael ValleDO - 12/17/2023 Patient Name: PILY BARNES : 1950 [facility] [id number] Exam Date/Time: 12/17/2023 15:44 Procedure: CT ABDOMEN [...] Electronically Signed Date/Time: 12/17/2023 3:56 PM EDT [facility] [email or web address] Radiology Study observation (narrative) [facility] alth CT Abdomen WO contrastOrdere d By: Nathanael Valle on 12-17-2023 [email or web address] Work Phone: Comprehensive metabolic 1998 panelon 12-17-2023 Albumin [Mass/Vol] 4.0 g/dL 3.5 - 5.0 g/dL [facility] [email or web address] ALP [Catalytic activity/Vol] 97 U/L 38 - 126 U/L [facility] ALT [Catalytic activity/Vol] 22 U/L 0 - 34 U/L [facility] Anion gap [Moles/Vol] 7 mmol/L 3 - 13 mmol/L [facility] AST [Catalytic activity/Vol] 26 U/L 15 - 46 U/L [facility] Bilirubin [Mass/Vol] 0.7 mg/dL 0.2 - 1 .3 mg/dL [facility] Calcium [Mass/Vol] 9.5 mg/dL 8.4 - 10. 4 mg/dL [facility] Chloride [Moles/Vol] 107 mmol/L 98 - 10 7 mmol/L [facility] CO2 [Moles/Vol] 22 mmol/L 22 - 30 mmol/L [facility] Creatinine [Mass/Vol] 0.86 mg/dL 0.52 - 1.04 mg/dL [facility] GFR/1.73 sq M.predicted MDRD (S/P/Bld) [Vol rate/Area] 71.4 mL/min/{1.73_m2} - PINF [facility] Comment on above: Calculation based on the Chronic Kidney Disease Epidemiology Collaboration (CKD-EPI) equation refit without adjustment for race Glucose [Mass/Vol] 101 mg/dL High 70 - 100 mg/dL [facility] Interpretation and review of laboratory results Abnormal [facility] Potassium [Moles/Vol] 4.3 mmol/L 3.5 - 5.1 mmol/L [facility] Protein [Mass/Vol] 6.9 g/dL 6.3 - 8.2 g/dL [facility] Sodium [Moles/Vol] 136 mmol/L 135 - 145 mmol/L [facility] Urea nitrogen [Mass/Vol] 16 mg/dL 7 - 17 mg/d L [facility] Laboratory - Chemistry and C hemistry - challengeon 12-17-2023 Lipase [Catalytic activity/Vol] 66 U/L 23 - 300 U/L [facility] Lipase [Catalytic activity/V ol]on 12-17-2023 Interpretation and review of laboratory results Normal [facility] No Panel Informationon 12-16 [facility] Sinus rhythm LVH with IVCD and [...] On 12-17-2023 13:07:08 EDT by Prosper Paniagua [facility] [email or web address] No Panel InformationOrdered By: Prosper Paniagua on 12-17-2023 P [place] 11 degrees [email or web address] Work Phone: VA Interval 207 ms [employer] [facility] Work Phone: QRS [place] -32 degrees [employer] Work Phone: QRSD Interval 122 ms [employer] Work Phone: QT Interval 458 ms [email or web address] Work Phone: QTC Interval 458 ms [email or web address] Work Phone: T Wave [place] 141 degrees [email or web address] Work Phone: [email or web address] Work Phone: Urinalysis complete panel (U )Ordered By: Austin Anne on 12-17-2023 Bacteria LM.HPF (Urine sed) [#/Area] Moderate Abnormal Negative /HPF [facility] Bilirubin Ql (U) Negative Negative mg/dL [facility] [email or web address] Clarity (U) Turbid Abnormal Clear [facility] [email or web address] Color (U) Yellow Lt. Yellow [facility] [email or web address] Epithelial cells.squamous LM.HPF (Urine sed) [#/Area] 0-2 [facility] Glucose Ql (U) Normal Normal (<70) mg/dL [facility] Hemoglobin Ql (U) >1.0 Abnormal Negative mg/dL [facility] Hyaline casts Auto (Urine sed) [#/Area] 0-2 Abnormal Negative /LPF [facility] Interpretation and review of laboratory results Abnormal [facility] th Ketones (U) [Mass/Vol] Negative Negat ken mg/dL [facility] Leukocyte clumps LM.HPF (Urine sed) [#/Area] Rare Abnormal Negative /HPF [facility] Leukocyte esterase Test strip Ql (U) 250 Abnormal Negative Bebe/uL [facility] Mucus LM.HPF (Urine sed) [#/Area] Few Negative /LPF [facility] Nitrite Ql (U) Negative Negative [facility] th pH (U) 5.0 [pH] 5.0 - 8.0 pH [facility] Protein (U) [Mass/Vol] 10 mg/dL Abnormal Negative [facility] RBC LM.HPF (Urine sed) [#/Area] 3-5 Abnormal [facility] Specific gravity (U) [Rel density] 1.016 1.005 - 1.030 [facility] Urobilinogen (U) [Mass/Vol] Normal Normal (0-1) mg/dL [facility] WBC LM.HPF (Urine sed) [#/Area] 6-10 Abnormal [facility] Vital signsOrdered By: Gustavo Paniagua on 12-17-2023 Heart rate 60 /min bpm [facility] Work Phone: CBC panel Auto (Bld)on 12-15 Erythrocyte distribution width (RBC) [Ratio] 13.4 % 11.5 - 15.0 % [facility] Hematocrit (Bld) [Volume fraction] 43.3 % 35.0 - 47.0 % [facility] Hemoglobin (Bld) [Mass/Vol] 14.1 g/dL 11.7 - 16.0 g/dL [facility] Interpretation and review of laboratory results Normal [facility] MCH (RBC) [Entitic mass] 29.2 pg 26. 0 - 34.0 pg [facility] MCHC (RBC) [Mass/Vol] 32.6 % 30.5 - 36.0 % [facility] MCV (RBC) [Entitic vol] 89.6 fL 77.0 - 99.0 fL [facility] Platelet mean volume (Bld) [Entitic vol] 9.2 fL 9.0 - 12.7 fL [facility] Platelets (Bld) [#/Vol] 195 10*3/uL 140 - 440 10*3/uL [facility] RBC (Bld) [#/Vol] 4.83 10*6/uL 3.80 - 5.2 0 10*6/uL [facility] WBC (Bld) [#/Vol] 7.5 10*3/uL 3.6 - 10.7 10*3/uL [facility] COVID-19, Flu A/B, and RSV C omboon 12-16-2023 Interpretation and review of laboratory results Normal [facility] Comprehensive metabolic 1998 panelon 12-16-2023 Albumin [Mass/Vol] 4.1 g/dL 3.5 - 5.0 g/dL [facility] ALP [Catalytic activity/Vol] 92 U/L 38 - 126 U/L [facility] ALT [Catalytic activity/Vol] 25 U/L 0 - 34 U/L [facility] Anion gap [Moles/Vol] 8 mmol/L 3 - 13 mmol/L [facility] AST [Catalytic activity/Vol] 29 U/L 15 - 46 U/L [facility] Bilirubin [Mass/Vol] 0.6 mg/dL 0.2 - 1 .3 mg/dL [facility] Calcium [Mass/Vol] 9.2 mg/dL 8.4 - 10. 4 mg/dL [facility] Chloride [Moles/Vol] 108 mmol/L High 98 - 10 7 mmol/L [facility] CO2 [Moles/Vol] 21 mmol/L Low 22 - 30 mmol/L [facility] Creatinine [Mass/Vol] 1.14 mg/dL High 0.52 - 1.04 mg/dL [facility] GFR/1.73 sq M.predicted MDRD (S/P/Bld) [Vol rate/Area] 50.9 mL/min/{1.73_m2} Low - PINF [facility] Comment on above: Calculation based on the Chronic Kidney Disease Epidemiology Collaboration (CKD-EPI) equation refit without adjustment for race Glucose [Mass/Vol] 147 mg/dL High 70 - 100 mg/dL [facility] Interpretation and review of laboratory results Abnormal [facility] Potassium [Moles/Vol] 4.2 mmol/L 3.5 - 5.1 mmol/L [facility] Protein [Mass/Vol] 7.0 g/dL 6.3 - 8.2 g/dL [facility] Sodium [Moles/Vol] 136 mmol/L 135 - 145 mmol/L [facility] Urea nitrogen [Mass/Vol] 21 mg/dL High 7 - 17 mg/d L [facility] Laboratory - Chemistry and C hemistry - challengeon 12-16-2023 Lactate [Moles/Vol] 1.3 mmol/L 0.7 - 2. 0 mmol/L [facility] Lipase [Catalytic activity/Vol] 107 U/L 23 - 300 U/L [facility] Magnesium [Mass/Vol] 2.2 mg/dL 1.6 - 2 .3 mg/dL [facility] Laboratory - Microbiology an d Antimicrobial susceptibilityon 12-16-2023 FLUAV RNA MI+probe Ql (Resp) Not detected Not Detected [facility] FLUBV RNA MI+probe Ql (Resp) Not detected Not Detected [facility] RSV RNA MI+probe Ql (Resp) Not detected Not Detected [facility] SARS-CoV-2 (COVID-19) RNA MI+probe Ql (Resp) Not detected Not Detected [facility] SARS-CoV-2 (COVID-19) RNA MI+probe Ql (Unsp spec) Methodology: real-time, RT-PCR The SARS-CoV-2, Flu A/B, and RSV Combo assay is intended for in vitro diagnostic use under the FDA Emergency Use Authorization (EUA). This test has not been FDA cleared or approved. In compliance with this authorization, please visit www.fda.gov/media/21 4261/download or www.fda.gov/media/14 6077/download to access the applicable information sheets. [facility] No Panel Informationon 12-15 Interpretation and review of laboratory results Normal [facility] Interpretation and review of laboratory results Normal [facility] Urinalysis complete panel (U )Ordered By: Bogdan Soler on 12-16-2023 Bacteria LM.HPF (Urine sed) [#/Area] Few Abnormal Negative /HPF [facility] Bilirubin Ql (U) Negative Negative mg/dL [facility] Clarity (U) Clear Clear [facility] Color (U) Yellow Lt. Yellow [facility] Epithelial cells.squamous LM.HPF (Urine sed) [#/Area] 0-2 [facility] Glucose Ql (U) Normal Normal (<70) mg/dL [facility] Hemoglobin Ql (U) Negative Negative mg/dL [facility] Hyaline casts Auto (Urine sed) [#/Area] 0-2 Abnormal Negative /LPF [facility] Interpretation and review of laboratory results Abnormal [facility] Ketones (U) [Mass/Vol] Negative Negat ken mg/dL [facility] Leukocyte esterase Test strip Ql (U) Negative Negative Bebe/uL [facility] Mucus LM.HPF (Urine sed) [#/Area] Few Negative /LPF [facility] Nitrite Ql (U) Negative [facility] pH (U) 5.5 [pH] 5.0 - 8.0 pH [facility] Protein (U) [Mass/Vol] 30 mg/dL Abnormal Negative [facility] RBC LM.HPF (Urine sed) [#/Area] 0-2 [facility] Specific gravity (U) [Rel density] 1.014 1.005 - 1.030 [facility] Urobilinogen (U) [Mass/Vol] Normal Normal (0-1) mg/dL [facility] WBC LM.HPF (Urine sed) [#/Area] 0-2 [facility] CNPNon 11-16-2023 [facility] Telephone (GST[facility]) PILY BARNES ([id number]) 1950 F Date Time Provider Department 11/16/23 [facility] During your visit today, we recorded the following information about you: Sergei Rosario MA 11/16/2023 9:30 AM Signed [facility] for EGD biopsy results Sergei Rosario MA 11/17/2023 10:44 AM [facility] 11/21/2023 10:44 AM Signed Unable to reach son phone sent me to . Letter sent. Sergei Rosario MA 12/15/2023 10:10 AM Signed Received a call from Sanam at [facility] requesting EGD results. Faxed results to [phone]. Allergies As of Date: 11/16/2023 Noted Allergy [...] thyroidectomy [E (more content not included)... Normal [facility] EGD Study observation Narrat iveon 11-14-2023 [facility] CNCOon 10-03-2023 [facility] Letter Text Normal [facility] CNOVon 10-03-2023 CNOV Office Visit (GSTNOR) PILY BARNES ([id number]) 1950 F Date Time Provider Department 10/03/23 [...] for internal providers or letter via the [employer] for external providers. HPI: Pily [...] shortness of (more content not included)... Normal [facility] RF Esophagus Views W barium contrast [...] Electronically Signed Date/Time: 05/31/2023 3:22 PM EDT [facility] Patient Name: PILY BARNES : 1950 Exam Date/Time: 05/31/2023 14:19 Procedure: FL ESOPHAGUS BARIUM SWALLOW Ordering Provider: JONSE KIMBERLY Reason For Exam: dysphagia BARIUM SWALLOW( [...] small hiatal hernia with spontaneous gastroesophageal reflux. [facility] Preet Camilo MD - 05/31/2023 Patient Name: [...] Electronically Signed Date/Time: 05/31/2023 3:22 PM EDT [facility] Radiology Study observation (narrative) [facility] RF Esophagus Views W barium contrast POOrdered By: Preet Camilo on 05-31-2023 [facility] Work Phone: Basic metabolic 1998 panelon 03-10-2023 Anion gap [Moles/Vol] 9 mmol/L 3 - 13 mmol/L [facility] Calcium [Mass/Vol] 9.1 mg/dL 8.4 - 10. 4 mg/dL [facility] Chloride [Moles/Vol] 109 mmol/L High 98 - 10 7 mmol/L [facility] CO2 [Moles/Vol] 23 mmol/L 22 - 30 mmol/L [facility] Creatinine [Mass/Vol] 0.86 mg/dL 0.52 - 1.04 mg/dL [facility] GFR/1.73 sq M.predicted MDRD (S/P/Bld) [Vol rate/Area] 71.9 mL/min/{1.73_m2} - PINF [facility] Comment on above: Calculation based on the Chronic Kidney Disease Epidemiology Collaboration (CKD-EPI) equation refit without adjustment for race Glucose [Mass/Vol] 93 mg/dL 70 - 100 mg/dL [facility] Interpretation and review of laboratory results Abnormal [facility] Potassium [Moles/Vol] 3.9 mmol/L 3.5 - 5.1 mmol/L [facility] Sodium [Moles/Vol] 141 mmol/L 135 - 145 mmol/L [facility] Urea nitrogen [Mass/Vol] 26 mg/dL High 7 - 17 mg/d L [facility] CBC W Auto Differential pane l (Bld)Ordered By: Cameron Zaidi on 03-10-2023 Basophils (Bld) [#/Vol] 0.0 10*3/uL 0.0 - 0.2 10*3/uL [facility] Basophils/100 WBC (Bld) 0.5 % 0.0 - 2.0 % [facility] Eosinophils (Bld) [#/Vol] 0.1 10*3/uL 0. 0 - 0.5 10*3/uL [facility] Eosinophils/100 WBC (Bld) 2.4 % 1.0 - 6.0 % [facility] Erythrocyte distribution width (RBC) [Ratio] 13.5 % 11.5 - 14.5 % [facility] Hematocrit (Bld) [Volume fraction] 41.1 % 35.0 - 47.0 % [facility] Hemoglobin (Bld) [Mass/Vol] 13.5 g/dL 11.7 - 16.0 g/dL [facility] Interpretation and review of laboratory results Abnormal [facility] th Lymphocytes (Bld) [#/Vol] 1.3 10*3/uL 1. 0 - 4.3 10*3/uL [facility] Lymphocytes/100 WBC (Bld) 21.6 % 20 .0 - 40.0 % [facility] MCH (RBC) [Entitic mass] 31.5 pg 26. 0 - 34.0 pg [facility] MCHC (RBC) [Mass/Vol] 32.9 % 32.0 - 36.0 % [facility] MCV (RBC) [Entitic vol] 95.8 fL 80.0 - 98.0 fL [facility] Monocytes (Bld) [#/Vol] 0.5 10*3/uL 0.0 - 0.8 10*3/uL [facility] Monocytes/100 WBC (Bld) 8.7 % 2.0 - 10.0 % [facility] Neutrophils (Bld) [#/Vol] 3.9 10*3/uL 1. 8 - 7.0 10*3/uL [facility] Neutrophils/100 WBC (Bld) 66.8 % 40 .0 - 80.0 % [facility] Nucleated RBC/100 WBC (Bld) [Ratio] 0.1 % [facility] Platelet mean volume (Bld) [Entitic vol] 7.3 fL Low 7.4 - 12.4 fL [facility] Platelets (Bld) [#/Vol] 193 10*3/uL 140 - 440 10*3/uL [facility] RBC (Bld) [#/Vol] 4.29 10*6/uL 3.8 - 5.20 10*6/uL [facility] WBC (Bld) [#/Vol] 5.8 10*3/uL 3.6 - 10.7 10*3/uL [facility] Laboratory - Microbiology an d Antimicrobial susceptibilityOrdered By: Roxy Odom on 03-10-2023 SARS-CoV-2 (COVID-19) Ag IA.rapid Ql (Resp) Negative Negative [facility] Comment on above: A negative result do es not rule out the possibility of SARS-CoV-2 infection. NAAT-based methods should be considered for symptomatic patients presenting greater than seven days after onset of symptoms. Method: Lateral flow immunoassay. Fact sheets for healthcare providers and patients can be found at the following sites: https://www.fda.gov/media/062402/download https://www.fda.gov/media/534716/download SARS-CoV-2 (COVID-19) Ag IA. rapid Ql (Resp)Ordered By: Roxy Odom on 03-10-2023 Interpretation and review of laboratory results Normal [facility] Basic metabolic 1998 panelon 03-09-2023 Anion gap [Moles/Vol] 6 mmol/L 3 - 13 mmol/L [facility] Calcium [Mass/Vol] 9.1 mg/dL 8.4 - 10. 4 mg/dL [facility] Chloride [Moles/Vol] 109 mmol/L High 98 - 10 7 mmol/L [facility] CO2 [Moles/Vol] 26 mmol/L 22 - 30 mmol/L [facility] Creatinine [Mass/Vol] 0.87 mg/dL 0.52 - 1.04 mg/dL [facility] GFR/1.73 sq M.predicted MDRD (S/P/Bld) [Vol rate/Area] 70.9 mL/min/{1.73_m2} - PINF [facility] Comment on above: Calculation based on the Chronic Kidney Disease Epidemiology Collaboration (CKD-EPI) equation refit without adjustment for race Glucose [Mass/Vol] 89 mg/dL 70 - 100 mg/dL [facility] Interpretation and review of laboratory results Abnormal [facility] Potassium [Moles/Vol] 4.3 mmol/L 3.5 - 5.1 mmol/L [facility] Sodium [Moles/Vol] 141 mmol/L 135 - 145 mmol/L [facility] Urea nitrogen [Mass/Vol] 24 mg/dL High 7 - 17 mg/d L [facility] CBC W Auto Differential pane l (Bld)on 03-09-2023 Basophils (Bld) [#/Vol] 0.0 10*3/uL 0.0 - 0.2 10*3/uL [facility] Basophils/100 WBC (Bld) 0.6 % 0.0 - 2.0 % [facility] Eosinophils (Bld) [#/Vol] 0.2 10*3/uL 0. 0 - 0.5 10*3/uL [facility] Eosinophils/100 WBC (Bld) 3.3 % 1.0 - 6.0 % [facility] Erythrocyte distribution width (RBC) [Ratio] 13.6 % 11.5 - 14.5 % [facility] Hematocrit (Bld) [Volume fraction] 37.8 % 35.0 - 47.0 % [facility] Hemoglobin (Bld) [Mass/Vol] 12.4 g/dL 11.7 - 16.0 g/dL [facility] Interpretation and review of laboratory results Abnormal [facility] Lymphocytes (Bld) [#/Vol] 1.0 10*3/uL 1. 0 - 4.3 10*3/uL [facility] Lymphocytes/100 WBC (Bld) 21.9 % 20 .0 - 40.0 % [facility] MCH (RBC) [Entitic mass] 31.5 pg 26. 0 - 34.0 pg [facility] MCHC (RBC) [Mass/Vol] 32.9 % 32.0 - 36.0 % [facility] MCV (RBC) [Entitic vol] 96.0 fL 80.0 - 98.0 fL [facility] Monocytes (Bld) [#/Vol] 0.5 10*3/uL 0.0 - 0.8 10*3/uL [facility] Monocytes/100 WBC (Bld) 10.3 % High 2.0 - 10.0 % [facility] Neutrophils (Bld) [#/Vol] 3.0 10*3/uL 1. 8 - 7.0 10*3/uL [facility] Neutrophils/100 WBC (Bld) 63.9 % 40 .0 - 80.0 % [facility] Nucleated RBC/100 WBC (Bld) [Ratio] 0.1 % [facility] Platelet mean volume (Bld) [Entitic vol] 7.8 fL 7.4 - 12.4 fL [facility] Platelets (Bld) [#/Vol] 183 10*3/uL 140 - 440 10*3/uL [facility] RBC (Bld) [#/Vol] 3.94 10*6/uL 3.8 - 5.20 10*6/uL [facility] WBC (Bld) [#/Vol] 4.8 10*3/uL 3.6 - 10.7 10*3/uL [facility] Basic metabolic 1998 panelon 03-06-2023 Anion gap [Moles/Vol] 7 mmol/L 3 - 13 mmol/L [facility] Calcium [Mass/Vol] 9.0 mg/dL 8.4 - 10. 4 mg/dL [facility] Chloride [Moles/Vol] 111 mmol/L High 98 - 10 7 mmol/L [facility] CO2 [Moles/Vol] 25 mmol/L 22 - 30 mmol/L [facility] Creatinine [Mass/Vol] 0.80 mg/dL 0.52 - 1.04 mg/dL [facility] GFR/1.73 sq M.predicted MDRD (S/P/Bld) [Vol rate/Area] 78.4 mL/min/{1.73_m2} - PINF [facility] Comment on above: Calculation based on the Chronic Kidney Disease Epidemiology Collaboration (CKD-EPI) equation refit without adjustment for race Glucose [Mass/Vol] 139 mg/dL High 70 - 100 mg/dL [facility] Interpretation and review of laboratory results Abnormal [facility] th Potassium [Moles/Vol] 3.6 mmol/L 3.5 - 5.1 mmol/L [facility] Sodium [Moles/Vol] 143 mmol/L 135 - 145 mmol/L [facility] Urea nitrogen [Mass/Vol] 14 mg/dL 7 - 17 mg/d L [facility] CBC W Auto Differential pane l (Bld)Ordered By: Neftali Chan on 03-06-2023 Basophils (Bld) [#/Vol] 0.0 10*3/uL 0.0 - 0.2 10*3/uL [facility] Basophils/100 WBC (Bld) 0.2 % 0.0 - 2.0 % [facility] Eosinophils (Bld) [#/Vol] 0.1 10*3/uL 0. 0 - 0.5 10*3/uL [facility] Eosinophils/100 WBC (Bld) 2.1 % 1.0 - 6.0 % [facility] Erythrocyte distribution width (RBC) [Ratio] 13.3 % 11.5 - 14.5 % [facility] Hematocrit (Bld) [Volume fraction] 39.1 % 35.0 - 47.0 % [facility] Hemoglobin (Bld) [Mass/Vol] 12.9 g/dL 11.7 - 16.0 g/dL [facility] Interpretation and review of laboratory results Abnormal [facility] th Lymphocytes (Bld) [#/Vol] 0.7 10*3/uL Low 1. 0 - 4.3 10*3/uL [facility] Lymphocytes/100 WBC (Bld) 12.1 % Low 20 .0 - 40.0 % [facility] MCH (RBC) [Entitic mass] 31.2 pg 26. 0 - 34.0 pg [facility] MCHC (RBC) [Mass/Vol] 33.1 % 32.0 - 36.0 % [facility] MCV (RBC) [Entitic vol] 94.2 fL 80.0 - 98.0 fL [facility] Monocytes (Bld) [#/Vol] 0.3 10*3/uL 0.0 - 0.8 10*3/uL [facility] Monocytes/100 WBC (Bld) 5.0 % 2.0 - 10.0 % [facility] Neutrophils (Bld) [#/Vol] 4.5 10*3/uL 1. 8 - 7.0 10*3/uL [facility] Neutrophils/100 WBC (Bld) 80.6 % High 40 .0 - 80.0 % [facility] Nucleated RBC/100 WBC (Bld) [Ratio] 0.0 % [facility] Platelet mean volume (Bld) [Entitic vol] 7.3 fL Low 7.4 - 12.4 fL [facility] Platelets (Bld) [#/Vol] 151 10*3/uL 140 - 440 10*3/uL [facility] RBC (Bld) [#/Vol] 4.15 10*6/uL 3.8 - 5.20 10*6/uL [facility] WBC (Bld) [#/Vol] 5.6 10*3/uL 3.6 - 10.7 10*3/uL [facility] Basic metabolic 1998 panelon 03-03-2023 Anion gap [Moles/Vol] 5 mmol/L 3 - 13 mmol/L [facility] Calcium [Mass/Vol] 8.7 mg/dL 8.4 - 10. 4 mg/dL [facility] Chloride [Moles/Vol] 105 mmol/L 98 - 10 7 mmol/L [facility] CO2 [Moles/Vol] 23 mmol/L 22 - 30 mmol/L [facility] Creatinine [Mass/Vol] 0.88 mg/dL 0.52 - 1.04 mg/dL [facility] GFR/1.73 sq M.predicted MDRD (S/P/Bld) [Vol rate/Area] 69.9 mL/min/{1.73_m2} - PINF [facility] Comment on above: Calculation based on the Chronic Kidney Disease Epidemiology Collaboration (CKD-EPI) equation refit without adjustment for race Glucose [Mass/Vol] 141 mg/dL High 70 - 100 mg/dL [facility] Interpretation and review of laboratory results Abnormal [facility] th Potassium [Moles/Vol] 4.7 mmol/L 3.5 - 5.1 mmol/L [facility] Sodium [Moles/Vol] 132 mmol/L Low 135 - 145 mmol/L [facility] Urea nitrogen [Mass/Vol] 21 mg/dL High 7 - 17 mg/d L [facility] CBC W Auto Differential pane l (Bld)Ordered By: Mili Mulligan on 03-03-2023 Basophils (Bld) [#/Vol] 0.0 10*3/uL 0.0 - 0.2 10*3/uL [facility] Basophils/100 WBC (Bld) 0.2 % 0.0 - 2.0 % [facility] Eosinophils (Bld) [#/Vol] 0.0 10*3/uL 0. 0 - 0.5 10*3/uL [facility] Eosinophils/100 WBC (Bld) 0.0 % Low 1.0 - 6.0 % [facility] Erythrocyte distribution width (RBC) [Ratio] 13.2 % 11.5 - 14.5 % [facility] Hematocrit (Bld) [Volume fraction] 39.9 % 35.0 - 47.0 % [facility] Hemoglobin (Bld) [Mass/Vol] 13.2 g/dL 11.7 - 16.0 g/dL [facility] Interpretation and review of laboratory results Abnormal [facility] th Lymphocytes (Bld) [#/Vol] 0.4 10*3/uL Low 1. 0 - 4.3 10*3/uL [facility] Lymphocytes/100 WBC (Bld) 5.5 % Low 20 .0 - 40.0 % [facility] MCH (RBC) [Entitic mass] 30.8 pg 26. 0 - 34.0 pg [facility] MCHC (RBC) [Mass/Vol] 33.0 % 32.0 - 36.0 % [facility] MCV (RBC) [Entitic vol] 93.4 fL 80.0 - 98.0 fL [facility] Monocytes (Bld) [#/Vol] 0.1 10*3/uL 0.0 - 0.8 10*3/uL [facility] Monocytes/100 WBC (Bld) 1.0 % Low 2.0 - 10.0 % [facility] Neutrophils (Bld) [#/Vol] 6.2 10*3/uL 1. 8 - 7.0 10*3/uL [facility] Neutrophils/100 WBC (Bld) 93.3 % High 40 .0 - 80.0 % [facility] Nucleated RBC/100 WBC (Bld) [Ratio] 0.1 % [facility] Platelet mean volume (Bld) [Entitic vol] 7.6 fL 7.4 - 12.4 fL [facility] Platelets (Bld) [#/Vol] 168 10*3/uL 140 - 440 10*3/uL [facility] RBC (Bld) [#/Vol] 4.27 10*6/uL 3.8 - 5.20 10*6/uL [facility] WBC (Bld) [#/Vol] 6.7 10*3/uL 3.6 - 10.7 10*3/uL [facility] Laboratory - Coagulationon 0 03-03-2023 PT Coag (Bld) [Time] 10.3 s 9.0 - 12.0 s [facility] PT Coag (Bld) [Time]on 03-03 INR Coag (PPP) [Relative time] 1.0 {INR} 0.9 - 1.1 [facility] Comment on above: Recommended Anticoag ulant [...] Interpretation and review of laboratory results Normal [facility] No Panel Informationon 03-02 There is no [...] at the office of Maris Lobo NP ([facility]) was notified by telephone on 10/23/2022 at 3:30 PM. Report Dictated on Electronically Signed By: Phong Krishnan Electronically Signed Date/Time: 10/23/2022 3:30 PM [facility] [employer] Patient Name: PILY BARNES : 1950 [facility]#: [id number] Exam Date/Time: 10/21/2022 13:27 Procedure: MR CERVICAL [...] herniation. No spinal canal or foraminal narrowing. [facility] Phong Krishnan MD - 10/23/2022 Patient Name: P[facility]ARNES : 1950 [id number] Exam Date/Time: 10/21/2022 13:27 Procedure: MR CERVICAL [...] at the office of Maris Lobo NP ([facility]) was notified by telephone on 10/23/2022 at 3:30 PM. Report Dictated on Electronically Signed By: Phong Krishnan Electronically Signed Date/Time: 10/23/2022 3:30 PM EST [facility] MR Cervical spine WO contras tOrdered By: Phong Krishnan on 10-23-2022 [facility] Work Phone: MR Cervical spine WO contras ton 10-21-2022 Radiology Study observation (narrative) [facility] alth CT BRAIN WO IVCONon 11-06-[address] BRAIN WO IVCON Final Report DATE OF EXAM: Nov 05 2020 6:06PM [facility] 0504 - CT BRAIN WO IVCON / PROCEDURE REASON: Head trauma, headache Physician Interpretation CT HEAD, FACIAL BONES AND CERVICAL SPINE CLINICAL HISTORY: Head trauma, headache (accession [id number]), Facial trauma, fx suspected (accession [id number]), C-spine fx, traumatic (accession [id number]) FALL TECHNIQUE: Routine axial images from skull [...] with secondary deviation of the tracheal airway. Flooring Installer: AISHA Transcribe Date/Time: Nov 05 2020 6:38P Dictated by : ARMANDO PARK MD This examination was interpreted and the report reviewed and electronically signed by: ARMANDO PARK MD on Nov 05 2020 6:45PM EST Normal [facility] CT CERVICAL SPINE WO IVCONon 11-05-2020 CT CERVICAL SPINE WO IVCON Final Report DATE OF EXAM: Nov 05 2020 6:06PM [facility] 0505 - CT CERVICAL SPINE WO IVCON / PROCEDURE REASON: C-spine fx, traumatic Physician Interpretation CT HEAD, FACIAL BONES AND CERVICAL SPINE CLINICAL HISTORY: Head trauma, headache (accession [id number]), Facial trauma, fx suspected (accession [id number]), C-spine fx, traumatic (accession [id number]) FALL TECHNIQUE: Routine axial images from skull [...] with secondary deviation of the tracheal airway. Flooring Installer: AISHA Transcribe Date/Time: Nov 05 2020 6:38P Dictated by : ARMANDO PARK MD This examination was interpreted and the report reviewed and electronically signed by: ARMANDO PARK MD on Nov 05 2020 6:45PM EST Normal [facility] CT FACIAL BONE/MANDA WO IVCON on 11-05-2020 CT FACIAL BONE/MANDA WO IVCON Final Report DATE OF EXAM: Nov 05 2020 6:06PM [facility] 0507 - CT FACIAL BONE/MANDA WO IVCON / PROCEDURE REASON: Facial trauma, fx suspected Physician Interpretation CT HEAD, FACIAL BONES AND CERVICAL SPINE CLINICAL HISTORY: Head trauma, headache (accession [id number]), Facial trauma, fx suspected (accession [id number]), C-spine fx, traumatic (accession [id number]) FALL TECHNIQUE: Routine axial images from skull [...] with secondary deviation of the tracheal airway. Flooring Installer: PSCB Transcribe Date/Time: Nov 05 2020 6:38P Dictated by : ARMANDO PARK MD This examination was interpreted and the report reviewed and electronically signed by: ARMANDO PARK MD on Nov 05 2020 6:45PM EST Normal [facility] CT LUMBAR SPINE WO IVCONon 0 11-05-2020 CT LUMBAR SPINE WO IVCON Final Report DATE OF EXAM: Nov 05 2020 6:12PM [facility] 0508 - CT LUMBAR SPINE WO IVCON / PROCEDURE REASON: L/S-spine fx, traumatic Physician Interpretation EXAMS: CT OF THORACIC AND LUMBAR SPINE CLINICAL HISTORY: L/S-spine fx, traumatic (accession [id number]), T-spine fx, traumatic (accession [id number]) FALL TODAY TECHNIQUE: Spiral high resolution helical [...] The bony canal and foramina are patent. Food Service Helper (topogram) images: No additional findings. IMPRESSION: No acute fracture or malalignment of the thoracic and lumbar spine. Other included bony structures also negative for acute fracture. 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 Flooring Installer: PSCChristina Transcribe Date/Time: Nov 05 2020 6:45P Dictated by : ARMANDO PARK MD This examination was interpreted and the report reviewed and electronically signed by: ARMANDO PARK MD on Nov 05 2020 6:54PM EST Normal [facility] CT THORACIC SPINE WO IVCONon 11-05-2020 CT THORACIC SPINE WO IVCON Final Report DATE OF EXAM: Nov 05 2020 6:12PM [facility] 0514 - CT THORACIC SPINE WO IVCON / PROCEDURE REASON: T-spine fx, traumatic Physician Interpretation EXAMS: CT OF THORACIC AND LUMBAR SPINE CLINICAL HISTORY: L/S-spine fx, traumatic (accession [id number]), T-spine fx, traumatic (accession [id number]) FALL TODAY TECHNIQUE: Spiral high resolution helical [...] The bony canal and foramina are patent. Food Service Helper (topogram) images: No additional findings. IMPRESSION: No acute fracture or malalignment of the thoracic and lumbar spine. Other included bony structures also negative for acute fracture. 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 Flooring Installer: AISHA Transcribe Date/Time: Nov 05 2020 6:45P Dictated by : ARMANDO PARK MD This examination was interpreted and the report reviewed and electronically signed by: ARMANDO PARK MD on Nov 05 2020 6:54PM EST Normal [facility] XR CERVICAL 4V AP/LAT/FLX/EX Ton 11-05-2020 XR [...] flexion or extension. Cervical spondylosis as described. Flooring Installer: [facility] Transcribe Date/Time: Nov 05 2020 9:17P Dictated by : CARMEL KRAUS MD This examination was interpreted and the report reviewed and electronically signed by: CARMEL KRAUS MD on Nov 05 2020 9:19PM EST Normal [facility] XR CHEST 1V FRONTALon 2020 XR CHEST 1V FRONTAL Final Report DATE OF EXAM: Nov 05 2020 4:41PM [facility] 5290 - XR CHEST 1V FRONTAL / PROCEDURE REASON: Chest pain Physician Interpretation EXAM 1: PORTABLE CHEST X-RAY CLINICAL HISTORY: Fracture, hand (accession [id number]), Hip trauma, fx suspected, initial exam (accession [id number]), Chest pain (accession [id number]) TECHNIQUE: AP upright COMPARISON: 06/06/2020 chest RESULT: [...] Left hand: No acute fracture or malalignment. Flooring Installer: PSCB Transcribe Date/Time: Nov 05 2020 4:46P Dictated by : ARMANDO PARK MD This examination was interpreted and the report reviewed and electronically signed by: ARMANDO PARK MD on Nov 05 2020 5:11PM EST Normal [facility] XR HAND 3V PA/LAT/OBL LTon 0 11-05-2020 XR HAND 3V PA/LAT/OBL LT Final Report DATE OF EXAM: Nov 05 2020 4:41PM [facility] 5345 - XR HAND 3V PA/LAT/OBL LT / PROCEDURE REASON: Fracture, hand Physician Interpretation EXAM 1: PORTABLE CHEST X-RAY CLINICAL HISTORY: Fracture, hand (accession [id number]), Hip trauma, fx suspected, initial exam (accession [id number]), Chest pain (accession [id number]) TECHNIQUE: AP upright COMPARISON: 06/06/2020 chest RESULT: [...] Left hand: No acute fracture or malalignment. Flooring Installer: [facility] Transcribe Date/Time: Nov 05 2020 4:46P Dictated by : ARMANDO PARK MD This examination was interpreted and the report reviewed and electronically signed by: ARMANDO PARK MD on Nov 05 2020 5:11PM EST Normal [facility] XR HAND 3V PA/LAT/OBL RTon 0 [...] joints. Hyperextension of the thumb MCP joint. Flooring Installer: [facility] Transcribe Date/Time: Nov 05 2020 4:47P Dictated by : CARMEL KRAUS MD This examination was interpreted and the report reviewed and electronically signed by: CARMEL KRAUS MD on Nov 05 2020 4:49PM EST Normal [facility] XR PELVIS 1V APon 11-05-2020 XR PELVIS 1V AP Final Report DATE OF EXAM: Nov 05 2020 4:41PM [facility] 5239 - XR PELVIS 1V AP / PROCEDURE REASON: Hip trauma, fx suspected, initial exam Physician Interpretation EXAM 1: PORTABLE CHEST X-RAY CLINICAL HISTORY: Fracture, hand (accession [id number]), Hip trauma, fx suspected, initial exam (accession [id number]), Chest pain (accession [id number]) TECHNIQUE: AP upright COMPARISON: 06/06/2020 chest RESULT: [...] Left hand: No acute fracture or malalignment. Flooring Installer: AISHA Transcribe Date/Time: Nov 05 2020 4:46P Dictated by : ARMANDO PARK MD This examination was interpreted and the report reviewed and electronically signed by: ARMANDO PARK MD on Nov 05 2020 5:11PM EST Normal [facility] XR THORACIC 3V AP/LAT/SWIMME RSon 11-05-2020 XR [...] C2 or C3 level on these views. Flooring Installer: AISHA Transcribe Date/Time: Nov 05 2020 9:41P Dictated by : CLAUDIA HAY MD This examination was interpreted and the report reviewed and electronically signed by: CLAUDIA HAY MD on Nov 05 2020 9:43PM EST Normal [facility] Otheron 07-28-2020 [facility] US BIOPSY CERVICAL LYMPH NOD Stanton [...] an image saved in the PACS. The pharmacy specialist stated that adequate tissue was obtained for [...] an image saved in the PACS. The pharmacy specialist stated that adequate tissue was obtained for [...] aspiration biopsy of left supraclavicular lymph node. Flooring Installer: AISHA Transcribe Date/Time: Jul 28 2020 5:37P Dictated by : ROMULO THOMAS MD This examination was interpreted and the report reviewed and electronically signed by: ROMULO THOMAS MD on Jul 28 2020 5:42PM EST Normal [facility] US FNA W GUIDANCEon 07-28-20 US FNA W GUIDANCE Final Report DATE OF EXAM: Jul 28 2020 8:59AM [facility] 8593 - US FNA W GUIDANCE / [...] an image saved in the PACS. The pharmacy specialist stated that adequate tissue was obtained for [...] an image saved in the PACS. The pharmacy specialist stated that adequate tissue was obtained for [...] aspiration biopsy of left supraclavicular lymph node. Flooring Installer: AISHA Transcribe Date/Time: Jul 28 2020 5:37P Dictated by : ROMULO THOMAS MD This examination was interpreted and the report reviewed and electronically signed by: ROMULO THOMAS MD on Jul 28 2020 5:42PM EST Normal [facility] Otheron 06-23-2020 [facility] Otheron 04-01-2020 [facility] Vital Signs Date Time Vital Sign Value Performing Clinician Facility 05-23-2025 09:55-0400 Body height 152.4 cm [employer] Work Phone: [facility] [email or web address] 05-23-2025 09:55-0400 Body mass index (BMI) [Ratio] 32.22 kg/m2 [place] [employer] Work Phone: [employer] 05-23-2025 09:55-0400 Body weight 74.84 kg [employer] Work Phone: [employer] 04-23-2025 08:41-0400 Diastolic blood pressure 61 mm[Hg] [employer] Boone DO Work Phone: [employer] 04-23-2025 08:41-0400 Heart rate 76 /min [employer] DO Work Phone: [employer] 04-23-2025 08:41-0400 SaO2% (BldA) [Mass fraction] 94 % [employer] Boone DO Work Phone: [employer] 04-23-2025 08:41-0400 Systolic blood pressure 110 mm[Hg] [employer] Boone DO Work Phone: [employer] 04-23-2025 07:37-0400 Body temperature 97.59 [degF] [employer] Boone DO Work Phone: [employer] 04-23-2025 07:37-0400 Respiratory rate 16 /min [employer] DO Work Phone: [employer] 04-19-2025 20:31-0400 Body height 152.4 cm [employer] DO Work Phone: [employer] 04-19-2025 20:31-0400 Body mass index (BMI) [Ratio] 32.22 kg/m2 [employer] DO Work Phone: [facility] 04-19-2025 20:31-0400 Body weight 74.84 kg Javon Boone DO Work Phone: [facility] 09-16-2024 14:19-0500 Body height 152.4 cm Michell Mathis MD Work Phone: [facility] 09-16-2024 14:19-0500 Body mass index (BMI) [Ratio] 30.33 kg/m2 Michell Mathis MD Work Phone: [facility] 09-16-2024 14:19-0500 Body temperature 98.4 [degF] Michell Mathis MD Work Phone: [facility] 09-16-2024 14:19-0500 Body weight 70.44 kg Michell Mathis MD Work Phone: [facility] 09-16-2024 14:19-0500 Diastolic blood pressure 79 mm[Hg] Michell Mathis MD Work Phone: [facility] 09-16-2024 14:19-0500 Heart rate 56 /min Michell Mathis MD Work Phone: [facility] 09-16-2024 14:19-0500 SaO2% (BldA) [Mass fraction] 95 % Michell Mathis MD Work Phone: [facility] 09-16-2024 14:19-0500 Systolic blood pressure 121 mm[Hg] Michell Mathis MD Work Phone: [facility] 03-21-2024 07:57-0400 Diastolic blood pressure 90 mm[Hg] Jorge Zelaya MD Work Phone: [facility] 03-21-2024 07:57-0400 Systolic blood pressure 144 mm[Hg] Jorge Zelaya MD Work Phone: [facility] 03-21-2024 07:43-0400 Body height 152.4 cm Jorge Zelaya MD Work Phone: [facility] 03-21-2024 07:43-0400 Body mass index (BMI) [Ratio] 31.25 kg/m2 Jorge Zelaya MD Work Phone: [facility] 03-21-2024 07:43-0400 Body weight 72.58 kg Jorge Zelaya MD Work Phone: [facility] 03-21-2024 07:43-0400 Heart rate 62 /min Jorge Zelaya MD Work Phone: [facility] 03-21-2024 07:43-0400 SaO2% (BldA) [Mass fraction] 95 % Jorge Zelaya MD Work Phone: [facility] 03-04-2024 14:46-0400 Body height 152.4 cm Arely Hercules PA-C Work Phone: [facility] 03-04-2024 14:46-0400 Body mass index (BMI) [Ratio] 29.29 kg/m2 Arely Hercules PA-C Work Phone: [facility] 03-04-2024 14:46-0400 Body weight 68.04 kg Arely Hercules PA-C Work Phone: [facility] Comment on above: Unable to get due to wheelchair 03-04-2024 14:46-0400 Diastolic blood pressure 74 mm[Hg] Arely Hercules PA-C Work Phone: [facility] 03-04-2024 14:46-0400 Heart rate 82 /min Arely Hercules PA-C Work Phone: [facility] 03-04-2024 14:46-0400 Systolic blood pressure 128 mm[Hg] Arely Hercules PA-C Work Phone: [facility] 12-17-2023 15:49-0400 Diastolic blood pressure 83 mm[Hg] Albert Voll DO Work Phone: [facility] [email or web address] 12-17-2023 15:49-0400 Heart rate 76 /min Albert Voll DO Work Phone: [facility] [email or web address] 04-14-2024 15:49-0400 Respiratory rate 21 /min Albert Voll DO Work Phone: [facility] [employer] 12-17-2023 15:49-0400 Systolic blood pressure 144 mm[Hg] Albert Voll DO Work Phone: [facility] [employer] 12-17-2023 12:57-0400 Body height 152.4 cm Albert Voll DO Work Phone: [facility] [employer] 12-17-2023 12:57-0400 Body mass index (BMI) [Ratio] 31.25 kg/m2 Albert Voll DO Work Phone: [facility] [employer] 12-17-2023 12:57-0400 Body weight 72.58 kg Albert Voll DO Work Phone: [facility] [employer] 12-17-2023 12:55-0400 Body temperature 98.49 [degF] Albert Voll DO Work Phone: [facility] [employer] 12-17-2023 12:55-0400 SaO2% (BldA) [Mass fraction] 98 % Albert Voll DO Work Phone: [facility] [email or web address] 12-16-2023 19:20-0400 Body height 152.4 cm Artur Boone MD Work Phone: [facility] [employer] 12-16-2023 19:20-0400 Body mass index (BMI) [Ratio] 31.25 kg/m2 Artur Boone MD Work Phone: [facility] [email or web address] 12-16-2023 19:20-0400 Body weight 72.58 kg Artur Boone MD Work Phone: [facility] [employer] 12-16-2023 19:20-0400 Diastolic blood pressure 83 mm[Hg] Artur Boone MD Work Phone: [facility] [employer] 12-16-2023 19:20-0400 Heart rate 77 /min Artur Boone MD Work Phone: [facility] [employer] 12-16-2023 19:20-0400 Respiratory rate 16 /min Artur Boone MD Work Phone: [facility] 12-16-2023 19:20-0400 SaO2% (BldA) [Mass fraction] 97 % Artur Boone MD Work Phone: [facility] 12-16-2023 19:20-0400 Systolic blood pressure 139 mm[Hg] Artur Boone MD Work Phone: [facility] 12-16-2023 14:52-0400 Body temperature 97.7 [degF] Artur Boone MD Work Phone: [facility] 11-14-2023 09:28-0400 Diastolic blood pressure 83 mm[Hg] Aurelio Roy MD Work Phone: [facility] 11-14-2023 09:28-0400 Heart rate 75 /min Aurelio Roy MD Work Phone: [facility] 11-14-2023 09:28-0400 Respiratory rate 18 /min Aurelio Roy MD Work Phone: [facility] 11-14-2023 09:28-0400 SaO2% (BldA) [Mass fraction] 95 % Aurelio Roy MD Work Phone: [facility] 11-14-2023 09:28-0400 Systolic blood pressure 129 mm[Hg] Aurelio Roy MD Work Phone: [facility] 11-14-2023 09:13-0400 Body temperature 98.8 [degF] Aurelio Roy MD Work Phone: [facility] 07-05-2023 13:49-0400 Diastolic blood pressure 93 mm[Hg] Alonso Mcgill MD Work Phone: [facility] [employer] 07-05-2023 13:49-0400 Heart rate 66 /min Alonso Mcgill MD Work Phone: [facility] 07-05-2023 13:49-0400 Systolic blood pressure 146 mm[Hg] Alonso Mcgill MD Work Phone: [facility] [employer] 07-05-2023 13:39-0400 Body height 152.4 cm Alonso Mcgill MD Work Phone: [employer] 07-05-2023 13:39-0400 Body mass index (BMI) [Ratio] 31.83 kg/m2 Alonso Mcgill MD Work Phone: [employer] 07-05-2023 13:39-0400 Body temperature 97.59 [degF] Alonso Mcgill MD Work Phone: [employer] 07-05-2023 13:39-0400 Body weight 73.94 kg Alonso Mcgill MD Work Phone: [employer] 05-25-2023 22:42-0400 Body temperature 98.91 [degF] Humberto Nesheim DO Work Phone: [facility] [employer] 05-25-2023 22:42-0400 Diastolic blood pressure 111 mm[Hg] Humberto Nesheim DO Work Phone: [facility] [employer] 05-25-2023 22:42-0400 Heart rate 67 /min Humberto Nesheim DO Work Phone: [employer] 05-25-2023 22:42-0400 Respiratory rate 16 /min Humberto Nesheim DO Work Phone: [facility] [employer] 05-25-2023 22:42-0400 SaO2% (BldA) [Mass fraction] 93 % Humberto Nesheim DO Work Phone: [employer] 05-25-2023 22:42-0400 Systolic blood pressure 163 mm[Hg] Humberto Nesheim DO Work Phone: [facility] [employer] 03-10-2023 07:53-0400 Body temperature 98.91 [degF] Alonso Mcgill MD Work Phone: [employer] 03-10-2023 07:53-0400 Diastolic blood pressure 87 mm[Hg] Alonso Mcgill MD Work Phone: [employer] 03-10-2023 07:53-0400 Heart rate 71 /min Alonso Mcgill MD Work Phone: [facility] [employer] 03-10-2023 07:53-0400 Respiratory rate 18 /min Alonso Mcgill MD Work Phone: [facility] [employer] 03-10-2023 07:53-0400 SaO2% (BldA) [Mass fraction] 92 % Alonso Mcgill MD Work Phone: [facility] [employer] 03-10-2023 07:53-0400 Systolic blood pressure 146 mm[Hg] Alonso Mcgill MD Work Phone: [facility] [employer] 03-02-2023 09:05-0400 Body height 152.4 cm Alonso Mcgill MD Work Phone: [facility] [employer] 03-02-2023 09:05-0400 Body mass index (BMI) [Ratio] 31.25 kg/m2 Alonso Mcgill MD Work Phone: [facility] [employer] 03-02-2023 09:05-0400 Body weight 72.58 kg Alonso Mcgill MD Work Phone: [facility] [employer] 12-07-2022 14:50-0400 Body height 152.4 cm Alonso Mcgill MD Work Phone: [facility] [employer] 12-07-2022 14:50-0400 Body mass index (BMI) [Ratio] 30.08 kg/m2 Alonso Mcgill MD Work Phone: [facility] [employer] 12-07-2022 14:50-0400 Body temperature 97.59 [degF] Alonso Mcgill MD Work Phone: [facility] [employer] 12-07-2022 14:50-0400 Body weight 69.85 kg Alonso Mcgill MD Work Phone: [facility] [email or web address] 12-07-2022 14:50-0400 Diastolic blood pressure 89 mm[Hg] Alonso Mcgill MD Work Phone: [facility] [employer] 12-07-2022 14:50-0400 Heart rate 85 /min Alonso Mcgill MD Work Phone: [facility] [email or web address] 12-07-2022 14:50-0400 Systolic blood pressure 133 mm[Hg] Alonso Mcgill MD Work Phone: [facility] 11-11-2022 13:39-0500 Body height 165.1 cm Anthony Mars MD Work Phone: [facility] 11-11-2022 13:39-0500 Body mass index (BMI) [Ratio] 26.43 kg/m2 Anthony Mars MD Work Phone: [facility] 11-11-2022 13:39-0500 Body temperature 97.9 [degF] Anthony Mars MD Work Phone: [facility] 11-11-2022 13:39-0500 Body weight 72.03 kg Anthony Mars MD Work Phone: [facility] 11-11-2022 13:39-0500 Diastolic blood pressure 90 mm[Hg] Anthony Mars MD Work Phone: [facility] 11-11-2022 13:39-0500 Heart rate 92 /min Anthony Mars MD Work Phone: [facility] 11-11-2022 13:39-0500 Systolic blood pressure 143 mm[Hg] Anthony Mars MD Work Phone: [facility] 02-24-2022 16:14-0400 Body height 152.4 cm Anthony Ramirez MD Work Phone: [facility] 02-24-2022 16:14-0400 Body weight 66.27 kg Anthony Ramirez MD Work Phone: [facility] 02-24-2022 16:14-0400 Diastolic blood pressure 83 mm[Hg] Anthony Ramirez MD Work Phone: [facility] 02-24-2022 16:14-0400 Heart rate 89 /min Anthony Ramirez MD Work Phone: [facility] 02-24-2022 16:14-0400 Systolic blood pressure 126 mm[Hg] Anthony Ramirez MD Work Phone: [facility] 01-28-2022 16:07-0400 Body temperature 98.6 [degF] Danny Laura MD Work Phone: [facility] 01-28-2022 16:07-0400 Body weight 68.22 kg Danny Laura MD Work Phone: [facility] 01-28-2022 16:07-0400 Diastolic blood pressure 86 mm[Hg] Danny Laura MD Work Phone: [facility] 01-28-2022 16:07-0400 Heart rate 78 /min Danny Laura MD Work Phone: [facility] 01-28-2022 16:07-0400 Respiratory rate 19 /min Danny Laura MD Work Phone: [facility] 01-28-2022 16:07-0400 SaO2% (BldA) [Mass fraction] 94 % Danny Laura MD Work Phone: [facility] 01-28-2022 16:07-0400 Systolic blood pressure 121 mm[Hg] Danny Laura MD Work Phone: [facility] 11-22-2021 16:25-0400 Body height 152.4 cm Kenia Laura PA-C Work Phone: [facility] 11-22-2021 16:25-0400 Body weight 68.49 kg Kenia Laura PA-C Work Phone: [facility] 11-22-2021 16:25-0400 Diastolic blood pressure 92 mm[Hg] Kenia Laura PA-C Work Phone: [facility] 11-22-2021 16:25-0400 Heart rate 74 /min Kenia Laura PA-C Work Phone: [facility] 11-22-2021 16:25-0400 Respiratory rate 16 /min Kenia Laura PA-C Work Phone: [facility] 11-22-2021 16:25-0400 SaO2% (BldA) [Mass fraction] 94 % Kenia Laura PA-C Work Phone: [facility] 11-22-2021 16:25-0400 Systolic blood pressure 141 mm[Hg] Kenia Laura PA-C Work Phone: [facility] 06-23-2020 10:17-0400 Body Temperature 97.9 [degF] [...] Provider Facility Start: 06-19-2025 ambulatory Raffy Sandovali lity:[facility] Start: 05-23-2025 End: 05-23-2025 Postop follow up visit related to original px [facility] GENERAL ADMINISTRATOR - BOOKING OFFICER Work Phone: [facility] Comment on above: Closed displaced int ertrochanteric fracture of right femur, initial encounter (HCC) (Primary Dx) Start: 05-23-2025 End: 05-23-2025 ambulatory [facility] Start: 05-07-2025 ambulatory Raffy Sandovali lity:[facility] Start: 05-07-2025 Registered Referred Raffy DELATORRE Start: 04-30-2025 End: 04-30-2025 ambulatory Raffy Gregorio [facility] Start: 04-30-2025 End: 04-30-2025 Departed Referred Raffy DELATORRE Start: 04-30-2025 End: 04-30-2025 ambulatory Raffy HDZ Facility:[facility] Start: 04-19-2025 End: 04-23-2025 Evaluation and management of inpatient Javon Hogan Boone Work Phone: [facility] Medical Surgical [facility] Comment on above: Closed nondisplaced intertrochanteric fracture of right femur, initial encounter (HCC) (Primary Dx); Closed displaced intertrochanteric fracture of right femur, initial encounter (HCC); Osteoporosis, unspecified osteoporosis type, unspecified pathological fracture presence Start: 12-03-2024 End: 01-03-2025 ambulatory Ashu Ricci APRN.BOOKING OFFICER Work Phone: [facility] Start: 12-03-2024 End: 01-03-2025 Patient encounter procedure Ashu Ricci APRN.BOOKING OFFICER Work Phone: [facility] Start: 09-16-2024 End: 09-16-2024 Office [...] Start: 09-16-2024 End: 09-16-2024 ambulatory MICHELL MATHIS Facility:[facility] Start: 07-31-2024 End: 07-31-2024 ambulatory Bobbi MOTT [employer] Start: 07-31-2024 End: 07-31-2024 Home visit Bobbi MOTT [employer] Comment on above: Population Health Na vigation Outreach ([facility] Attributed Member - Chart Review ) Start: 04-03-2024 Telephone encounter Michell fraser MD Work Phone: Cardiothoracic Comment on above: Follow Up Start: 03-21-2024 Encounter for preprocedural cardiovascular examination JORGE ZELAYA [facility] Start: 03-21-2024 End: 03-21-2024 ambulatory ASHU RICCI Facility:[facility] Start: 03-21-2024 End: 03-21-2024 Office outpatient new [...] encounter status Jorge Zelaya MD Work Phone: [facility] Start: 03-21-2024 End: 03-21-2024 ambulatory MICHELL MATHIS Facility:[facility] Start: 03-04-2024 End: 03-04-2024 ambulatory ARELY HERCULES Facility:[facility] Start: 03-04-2024 End: 03-04-2024 Patient encounter procedure Arely Hercules PA-C Work Phone: [facility] Comment on above: Esophageal stenosis (Primary Dx); Diverticulitis Start: 02-21-2024 Telephone encounter Michell fraser MD Work Phone: Cardiothoracic Comment on above: Insurance Authorizat ion Referral Information ; New Patient Evaluation Start: 02-19-2024 Telephone encounter Cardiac Hernandez rgeon - Unspecified NOC Comment on above: Appointment Start: 12-17-2023 End: 12-17-2023 Emergency department patient visit Albert Lara DO Work Phone: [facility] ED Comment on above: Diverticulitis (Prim dmitriy Dx); Rectal bleeding; Aneurysm of ascending aorta without rupture (HCC) Start: 12-17-2023 End: 12-17-2023 Subsequent hospital visit by physician [facility] Non-Invasive Cardiology Comment on above: Arrived Start: 12-16-2023 End: 12-16-2023 Emergency department patient visit Artur Boone MD Work Phone: [facility] ED Comment on above: Nausea vomiting and diarrhea (Primary Dx); Acute kidney injury (HCC) Start: 11-16-2023 Orders Only Arely JOSÉC Work Phone: [facility] Comment on above: Esophageal stenosis (Primary Dx); Adenomatous polyp of duodenum Results Start: 11-14-2023 Preprocedural examin ation done Aurelio Roy MD Work Phone: [facility] Work Phone: Start: 11-14-2023 End: 11-14-2023 Subsequent hospital visit by physician Aurelio Roy MD Work Phone: [place] [facility] Comment on above: Dysphagia, unspecifi ed type [R13.10] Start: 10-03-2023 End: 10-03-2023 ambulatory ARELY FARFANON Facility:[facility] Start: 07-05-2023 End: 07-05-2023 Postop follow up visit related to original px Alonso Mcgill MD Work Phone: [facility] Comment on above: Cervical myelopathy (HCC) (Primary Dx) Start: 06-30-2023 End: 06-30-2023 Subsequent hospital visit by physician Carlton Hsu PA-C Work Phone: [facility] Radiology Comment on above: Cervical myelopathy (HCC) Start: 05-31-2023 End: 05-31-2023 Subsequent hospital visit by physician Thea Jones Work Phone: [facility]-Ray Comment on above: Dysphagia Start: 05-25-2023 End: 05-25-2023 Emergency department patient visit Humberto Ghosh DO Work Phone: [facility] ED Comment on above: Left arm cellulitis (Primary Dx) Start: 05-12-2023 Telephone encounter Joy Smith DB Garzon [facility] Start: 05-10-2023 Transcribe Orders Provider Not In System Work Phone: [facility] Central Scheduling Comment on above: Dysphagia (Primary D x) Start: 03-02-2023 End: 03-10-2023 Evaluation and management of inpatient Alonso Mcgill MD Work Phone: [facility] TELEMETRY Comment on above: Cervical stenosis of spinal canal (Primary Dx) Start: 02-02-2023 Telephone encounter Mili soliz MA [facility] Start: 01-16-2023 Telephone encounter Cee Biggs GENERAL ADMINISTRATOR - BOOKING OFFICER Work Phone: [facility] Start: 01-12-2023 End: 01-12-2023 Subsequent hospital visit by physician Cee Biggs GENERAL ADMINISTRATOR - BOOKING OFFICER Work Phone: [facility] CT Imaging Comment on above: 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) Start: 12-07-2022 End: 12-07-2022 Office outpatient new 45 minutes Alonso Mcgill MD Work Phone: [facility] Comment on above: Cervical myelopathy (HCC) (Primary Dx); 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) Start: 11-11-2022 End: 11-11-2022 Office outpatient new 30 minutes Anthony Mars MD Work Phone: [facility] Comment on above: 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) (HCC) (Primary Dx); Parkinsonism, unspecified Parkinsonism type (HCC) Start: 10-21-2022 End: 10-21-2022 Subsequent hospital visit by physician Kenia Mckenzie MD Work Phone: [facility] MRI Comment on above: Hand numbness; Dizziness Start: 10-11-2022 Transcribe Orders Maris Lobo APRN - [facility] Central Scheduling Comment on above: Hand numbness (Prima ry Dx); Dizziness Start: 08-12-2022 End: 08-15-2022 [facility] Danny De La Cruz APRN.BOOKING OFFICER Work Phone: [facility] Behavioral Medicine Comment on above: Bipolar 1 disorder ( HCC) (Primary Dx); Generalized anxiety disorder; Bipolar 1 disorder, depressed, moderate (HCC) Start: 07-01-2022 Telephone encounter Danny De La Cruz APRN.BOOKING OFFICER Work Phone: [facility] Comment on above: Psychiatric Problem Start: 05-26-2022 ambulatory Cee Gonzalez [employer] Comment on above: Population Health Na vigation Outreach ([facility]- Needs PCP Verified) Start: 04-05-2022 End: 04-07-2022 [facility] Danny De La Cruz APRN.CNP Work Phone: [facility] Medicine Comment on above: Bipolar 1 disorder ( HCC) (Primary Dx); Generalized anxiety disorder; Bipolar 1 disorder, depressed, moderate (HCC) Start: 03-28-2022 Telephone encounter Danny De La Cruz APRN.CNP Work Phone: [facility] Behavior[facility] Medicine Comment on above: Scheduling Start: 03-21-2022 Telephone encounter Danny De La Cruz APRN.CNP Work Phone: [facility] Medicine Comment on above: Patient Update Start: 03-18-2022 Patient Outreach Soco hogan RN Work Phone: [employer] Comment on above: Transition Of Care ( SNF Update) Transition Of Care ( Josselyn Mcdonald 03/03-03/17/22 Transerred to [facility] [place]) Start: 03-17-2022 Refill Danny farnsworth MD Work Phone: [facility] Geriatrics Comment on above: Refill Request Start: 03-11-2022 Patient Outreach Soco hogan RN Work Phone: [employer] Comment on above: Transition Of Care ( SNF Update) Start: 03-10-2022 Refill Danny farnsworth MD Work Phone: [facility] Comment on above: Refill Request Start: 02-28-2022 Refill Danny De La Cruz APRN.BOOKING OFFICER Work Phone: [facility] Comment on above: Refill Request Start: 02-24-2022 End: 02-24-2022 Patient encounter procedure Anthony Ramirez MD Work Phone: [facility] Endocrinology Comment on above: Multiple thyroid nod ules (Primary Dx); S/P partial thyroidectomy Start: 02-22-2022 End: 02-22-2022 ambulatory Danny Laura MD Work Phone: [facility] Comment on above: OPENED IN ERROR (Luly chandni Dx) Start: 02-22-2022 End: 02-22-2022 Telemedicine consultation with patient Danny Laura MD Work Phone: [facility] Start: 02-21-2022 End: 02-21-2022 ambulatory Danny Laura MD Work Phone: [facility] Comment on above: OPENED IN ERROR (Luly chandni Dx) Start: 02-21-2022 End: 02-21-2022 Telemedicine consultation with patient Danny Laura MD Work Phone: [facility] Start: 02-16-2022 Telephone encounter Danny Laura MD Work Phone: [facility] Comment on above: Forms Start: 02-15-2022 End: 02-15-2022 Patient encounter procedure Danny De La Cruz APRN.BOOKING OFFICER Work Phone: [facility] Comment on above: Bipolar 1 disorder, depressed, moderate (HCC) (Primary Dx); Generalized anxiety disorder Start: 02-10-2022 Refill Danny farnsworth MD Work Phone: [facility] Comment on above: Refill Request Start: 02-09-2022 Telephone encounter Danny De La Cruz APRN.BOOKING OFFICER Work Phone: [facility] Comment on above: Patient Update Start: 02-07-2022 Refill Danny De La Cruz APRN.BOOKING OFFICER Work Phone: [facility] Comment on above: Refill Request Start: 02-02-2022 Telephone encounter Danny Laura MD Work Phone: [facility] Comment on above: Patient Update Start: 01-28-2022 End: 01-28-2022 Patient encounter procedure Danny Laura MD Work Phone: [facility] Comment on above: Falls frequently (Pr imary Dx) Start: 01-26-2022 Patient encounter procedure [facility] Provider [facility] Department Start: 01-24-2022 Refill Danny De La Cruz APRN.BOOKING OFFICER Work Phone: [facility] Comment on above: Refill Request Start: 01-17-2022 Refill Danny De La Cruz APRN.BOOKING OFFICER Work Phone: [facility] Comment on above: Refill Request Start: 01-14-2022 Refill Danny De La Cruz APRN.BOOKING OFFICER Work Phone: [facility] Comment on above: Refill Request Start: 01-10-2022 Refill Danny De La Cruz APRN.BOOKING OFFICER Work Phone: [facility] Comment on above: Refill Request Start: 01-06-2022 End: 01-07-2022 [facility] Danny Campfiordaliza De La Cruz GENERAL ADMINISTRATOR.BOOKING OFFICER Work Phone: [facility] Comment on above: 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); Generalized anxiety disorder Start: 01-03-2022 Refill Danny Campfiordaliza De La Cruz GENERAL ADMINISTRATOR.BOOKING OFFICER Work Phone: [facility] Comment on above: Refill Request Start: 12-27-2021 Refill Danny Campfiordaliza De La Cruz GENERAL ADMINISTRATOR.BOOKING OFFICER Work Phone: [facility] Comment on above: Refill Request Start: 12-09-2021 End: 12-09-2021 [facility] Danny Campfiordaliza De La Cruz GENERAL ADMINISTRATOR.BOOKING OFFICER Work Phone: [facility] Comment on above: Bipolar 1 disorder ( HCC) (Primary Dx); Generalized anxiety disorder Start: 12-02-2021 Refill Danny farnsworth MD Work Phone: [facility] Geriatrics Comment on above: Refill Request (Breo ) Start: 11-29-2021 Telephone encounter Kenia tenorio PA-C Work Phone: [facility] [place] Comment on above: Medication Problem ( RX Clarification) Start: 11-23-2021 End: 11-23-2021 Subsequent hospital visit by physician [place] [facility] Comment on above: screening Start: 11-22-2021 End: 11-22-2021 Patient encounter procedure Kenia Laura PA-C Work Phone: [facility] Comment on above: Frequent falls (Prim dmitriy Dx); Moderate persistent asthma without complication; Stage 3 chronic kidney disease, unspecified whether stage 3a or 3b CKD (HCC); Limited mobility Start: 11-17-2021 Telephone encounter Anthony mock MD Work Phone: [facility] Endocrinology Comment on above: Question from lab (V eracyte testing) Start: 07-27-2021 Telephone encounter Danny Laura MD Work Phone: [facility] Comment on above: Results Start: 08-11-2020 End: 08-11-2020 Refill Danny Siddiqui (Collision Repair Technician.Braid Folder) Jono Work Phone: [facility] Behavior[facility] Medicine Comment on above: Refill Request Start: 08-04-2020 End: 08-04-2020 Refill Danny Siddiqui (Collision Repair Technician.Braid Folder) Jono Work Phone: [facility] Medicine Comment on above: Refill Request Results Start: 07-28-2020 End: 07-28-2020 Subsequent hospital visit by physician Romulo Thomas Work Phone: [facility] INTERVENTIONAL RADIOLOGY Comment on above: Thyroid mass [E07.9] Start: 07-13-2020 End: 07-13-2020 Orders Only Efren Soria Work Phone: [facility] SURGERY DEPARTMENT Comment on above: Thyroid mass (Primar y Dx) Results Start: 07-01-2020 End: 07-01-2020 Telephone encounter Danny Siddiqui (Collision Repair Technician.Braid Folder) Jono Work Phone: [facility] Medicine Comment on above: Fabrication 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 Welder - O ther Start: 06-23-2020 End: 06-23-2020 Evaluation and management of inpatient Tatiana Alvarez Work Phone: [facility] Comment on above: 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, subsequent encounter (Primary Dx) Start: 06-23-2020 End: 06-23-2020 Subsequent hospital visit by physician [facility] [place] ROLL LINE OPERATOR Comment on above: Intracranial hemorrh age (HCC) [I62.9] Start: 06-07-2020 End: 06-07-2020 Orders Only Cheryl Zabala (Pa) Work Phone: [place] [facility] Comment on above: Intracranial hemorrh age (HCC) Start: 05-22-2020 End: 05-22-2020 Psych-Refill Danny Chen (Collision Repair Technician.Braid Folder) Jono Work Phone: [facility] Comment on above: Refill Request Start: 05-19-2020 Psych-Refill Danny Siddiqui (Collision Repair Technician.Braid Folder) Jono Work Phone: [facility] Comment on above: Refill Request Start: 05-19-2020 End: 05-19-2020 Refill Danny Chen (Collision Repair Technician.Braid Folder) Jono Work Phone: [facility] Start: 04-30-2020 End: 04-30-2020 Patient encounter procedure Danny Campne (Collision Repair Technician.Braid Folder) Jono Work Phone: [facility] Comment on above: Bipolar 1 disorder, depressed, moderate (HCC) (Primary Dx); Generalized anxiety disorder Start: 04-01-2020 End: 04-01-2020 Subsequent hospital visit by physician Echo Lab [facility] CARDIAC TESTING Comment on above: syncope Procedures [...] DRAKE Comment on above: Performed By: #### [id number] ####Medical Di susi: MIGDALIA JOHNSON ([phone])[facility] BLOOD [facility] ([facility])[address] Start: 04-19-2025 Basic metabolic panel calcium [...] lds trcg only w/o i&r Jorge Portillo GENERAL ADMINISTRATOR - [facility] Work Phone: Start: 12-16-2023 Urinalysis complete panel - Urine Jorge Portillo GENERAL ADMINISTRATOR - [facility] Work Phone: Start: 12-16-2023 Urnls dip stick/tablet reagent auto microscopy Jorge Portillo GENERAL ADMINISTRATOR - [facility] Work Phone: Start: 12-16-2023 SARS-COV-2, FLU A/B, AND RSV COMBO Jorge Portillo GENERAL ADMINISTRATOR - [facility] Work Phone: Start: 12-16-2023 Comprehensive metabolic panel Jorge mondragon GENERAL ADMINISTRATOR - [facility] Work Phone: Start: 11-14-2023 Esophagogastroduodenoscopy transoral diagnostic [...] Basic metabolic panel calcium total Cee Biggs GENERAL ADMINISTRATOR - BOOKING OFFICER Work Phone: Start: 03-02-2023 [place] GUIDANCE OR [...] 06-06-2020 H/O: hysterectomy Status post hysterectomy Us [place] Start: 04-01-2020 Echo tthrc r-t 2d w/wom-mode compl spec&colr d Kenia Mckenzie Work Phone: Start: 08-06-2019 Lipid 1996 panel - Serum or Plasma Aurelio Roy MD Work Phone: Start: 10-02-2018 Mammography [facility] [place] Plan of Treatment Date Care Activity Detail Author Start: 03-21-2029 Lipid panel [facility] Start: 03-21-2027 Diabetes Screening Diabetes Screening [facility] Start: 12-16-2026 Diabetes Screening Diabetes Screening [facility] Start: 03-10-2026 Diabetes Screening Diabetes Screening [facility] Start: 11-20-2025 Depression Monitoring Depression Monitoring [facility] Start: 09-16-2025 BP Controlled (<130/80) BP Controlled (<130/80) [facility] Start: 07-04-2025 End: 05-23-2026 XR Hip - right 3 Views XR hip right 2 or 3 views Imaging Routine Closed displaced intertrochanteric fracture of right femur, initial encounter (HCC) Expected: 07/04/2025, Expires: 05/23/2026 [facility] [email or web address] [facility] Work Phone: Comment on above: Expected: 07/04/2025, Expires: Start: 06-19-2025 Registered Referred Registered Referred -[place] [employer] Start: 05-05-2025 COVID-19 Vaccine () COVID-19 Vaccine () [facility] [email or web address] Start: 05-05-2025 Influenza vaccination Influenza Vaccine (#1) [facility] Start: 03-21-2025 End: 06-20-2025 CBC panel - Blood by Automated count COMPLETE BLOOD COUNT Lab Routine Dilatation of thoracic aorta (HCC) Preop cardiovascular exam Primary hypertension Coronary artery calcification Dyslipidemia Chronic kidney disease, unspecified CKD stage Aneurysm of ascending aorta without rupture (HCC) Diverticulitis Disorder of artery or arteriole (HCC) Dyspnea, unspecified type Expected: 03/21/2025, Expires: 06/20/2025 [facility] Comment on above: Expected: 03/21/2025, Expires: [...] Dyspnea, unspecified type Expected: 03/21/2025, Expires: 06/20/2025 [facility] Comment on above: Expected: 03/21/2025, Expires: Start: 03-21-2025 Creatinine measurement Serum Creatinine [facility] Start: 03-21-2025 Hepatitis B surface antibody level LDL Cholesterol [facility] Start: 03-21-2025 End: 06-20-2025 Lipid 1996 panel - Serum or Plasma LIPID PANEL BASIC Lab Routine Dilatation of thoracic aorta (HCC) Preop cardiovascular exam Primary hypertension Coronary artery calcification Dyslipidemia Chronic kidney disease, unspecified CKD stage Aneurysm of ascending aorta without rupture (HCC) Diverticulitis Disorder of artery or arteriole (HCC) Dyspnea, unspecified type Expected: 03/21/2025, Expires: 06/20/2025 [facility] Comment on above: Expected: 03/21/2025, Expires: [...] Dyspnea, unspecified type Expected: 03/21/2025, Expires: 06/20/2025 [facility] Comment on above: Expected: 03/21/2025, Expires: Start: 03-04-2025 BP Controlled (<130/80) BP Controlled (<130/80) [facility] Start: 03-01-2025 DIABETES SCREEN DIABETES SCREEN [facility] Start: 02-28-2025 Diabetes mellitus screening Diabetes Screening [facility] Start: 02-28-2025 DIABETES SCREEN DIABETES SCREEN [facility] Start: 12-16-2024 Complete blood count Hemoglobin/Hematocrit [facility] Start: 12-16-2024 Creatinine measurement Serum Creatinine [facility] Start: 11-15-2024 DIABETES SCREEN DIABETES SCREEN [facility] Start: 09-16-2024 End: 09-16-2024 Patient encounter procedure Radiology Comment on above: Aneurysm of ascending aorta without rupt ure (HCC) [I71.21] 6 month follow up Start: 09-04-2024 Advance Directive Discussion Advance Directive Discussion [facility] Start: 09-04-2024 Medicare Advantage Annual Wellness Visit Medicare Advantage Annual Wellness Visit [facility] Start: 08-06-2024 Lipid panel Lipid Screening [facility] Start: 08-06-2024 LIPID SCREEN LIPID SCREEN [facility] Start: 05-05-2024 COVID-19 Vaccine () COVID-19 Vaccine () [facility] Start: 05-05-2024 Covid-19 Vaccine ( season) Covid-19 Vaccine () [facility] Start: 05-05-2024 Influenza vaccination [facility] Start: 03-21-2024 End: 03-21-2024 Patient encounter procedure 03/21/2024 10:30 AM EDT Office Visit Cardiothoracic [address] [id number] Michell Mathis MD [address] [place] [address] [I71.21][K57.92][I10][I7 7.9] [facility]oth[facility]acic Comment on above: [I71.21][K57.92][I10][I77.9] Start: 03-21-2024 End: 03-21-2024 Patient encounter procedure Cardiology Comment on above: Aneurysm of ascending aorta without rupt ure (HCC) [I71.21] Start: 03-21-2024 End: 03-21-2024 [facility] J1-4 [facility] javy Garcia Comment on above: [I71.21][K57.92][I10][I77.9] Start: 03-10-2024 Creatinine measurement Serum Creatinine [facility] Start: 03-04-2024 End: 03-04-2024 Patient encounter procedure 03/04/2024 2:40 PM EDT Office Visit [facility] [address] [facility] [place] [address] Arely Hercules PA-C [address] [facility] [place] [address] dysphagia [facility] [place] Comment on above: dysphagia Start: 02-23-2024 End: 05-24-2024 CREATININE BLD CREATININE BLD Lab Routine Aneurysm of ascending aorta without rupture (HCC) Diverticulitis Primary hypertension Disorder of artery or arteriole (HCC) Expected: 02/23/2024, Expires: 05/24/2024 [facility] Comment on above: Expected: 02/23/2024, Expires: Start: 09-04-2023 Advance Directive Discussion Advance Directive Discussion [facility] Start: 09-04-2023 Medicare Advantage Annual Wellness Visit Medicare Advantage Annual Wellness Visit [facility] Start: 07-05-2023 End: 07-05-2023 Patient encounter procedure 07/05/2023 1:30 PM EDT Office Visit [address] [phone] Alonso Mcgill MD [address] [place] [phone] [facility] Start: 06-19-2023 End: 06-19-2023 Patient encounter procedure 06/19/2023 9:30 AM EDT Office Visit [address] [phone] Alonso Mcgill MD [address] [place] [phone] [facility] Start: 06-10-2023 Screening for osteoporosis Bone Density Scan [facility] Start: 05-31-2023 End: 05-31-2023 Patient encounter procedure 05/31/2023 1:30 PM EDT Appointment [facility] [address] [place] [address] Thea Jones [address] [facility] [address] [place], [place] [id number] [facility] Start: 05-05-2023 COVID-19 Vaccine ( season) COVID-19 Vaccine () [facility] Start: 05-05-2023 Covid-19 Vaccine ( season) Covid-19 Vaccine ( season) [facility] Start: 05-05-2023 Influenza vaccination [facility] Start: 03-13-2023 End: 03-13-2023 Patient encounter procedure 03/13/2023 9:00 AM EDT Office Visit [address] [phone] Alonso Mcgill MD [address] [place] [phone] [facility] Start: 03-01-2023 SERUM CREATININE SERUM CREATININE [facility] Start: 03-01-2023 End: 03-01-2023 Patient encounter procedure 03/01/2023 Office Visit Neurosurgery Alonso Mcgill MD [address] [place] [phone] [facility] Start: 02-28-2023 SERUM CREATININE SERUM CREATININE [facility] Start: 02-22-2023 ANNUAL PCP TEAM CHRONIC DISEASE VISIT ANNUAL PCP TEAM CHRONIC DISEASE VISIT [facility] Start: 02-17-2023 End: 02-17-2023 Admission to same day surgery center 02/17/2023 [place] [address] [place] [phone] C3-C6 ANTERIOR CERVICAL DECOMPRESSION, FUSION [74667 (CPT )] [facility] Comment on above: C3-C6 ANTERIOR CERVICAL DECOMPRESSION, F USION [08725 (CPT )] Start: 02-17-2023 End: 02-17-2023 Arthrd ant interbody decompress cervical belw c2 ARTHRODESIS ANTERIOR INTERBODY DISCECTOMY DECOMPRESSION SPINAL CORD CERVICAL BELOW C2 Disease of spinal cord, unspecified (HCC) 02/17/2023 12:30 PM EDT [facility] Operating [facility] Start: 02-17-2023 Subsequent hospital visit by physician 02/17/2023 Hospital Encounter Procedural Alonso Mcgill MD [address] [place] [phone] [facility] Start: 02-10-2023 End: 02-10-2023 Admission to establishment 02/10/2023 Pre-Admission Testing Pre-Admission Testing [facility] Pre-Admit Testing Start: 01-28-2023 ANNUAL PCP TEAM CHRONIC DISEASE VISIT ANNUAL PCP TEAM CHRONIC DISEASE VISIT [facility] Start: 01-12-2023 Subsequent hospital visit by physician 01/12/2023 Hospital Encounter Radiology [facility] CT Imaging Start: 12-07-2022 End: 12-08-2023 CT Cervical spine WO contrast CT cervical spine wo IV contrast Imaging Routine 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) (HCC) Expected: 12/07/2022, Expires: 12/08/2023 [employer] Work Phone: Comment on above: Expected: 12/07/2022, Expires: Start: 11-22-2022 ANNUAL PCP TEAM CHRONIC DISEASE VISIT ANNUAL PCP TEAM CHRONIC DISEASE VISIT [facility] Start: 11-16-2022 ADVANCE DIRECTIVE DISCUSSION ADVANCE DIRECTIVE DISCUSSION [facility] Start: 11-15-2022 HEMOGLOBIN/HEMATOCRIT HEMOGLOBIN/HEMATOCRIT [facility] Start: 11-15-2022 SERUM CREATININE SERUM CREATININE [facility] Start: 09-04-2022 ADVANCE DIRECTIVE DISCUSSION ADVANCE DIRECTIVE DISCUSSION [facility] Start: 07-11-2022 COVID-19 VACCINE (4 - Booster for Pfizer series) COVID-19 VACCINE (4 - Booster for Pfizer series) [facility] Start: 05-05-2022 COVID-19 VACCINE (4 - Booster for Pfizer series) COVID-19 VACCINE (4 - Booster for Pfizer series) [facility] Start: 05-05-2022 COVID-19 VACCINE (5 - Booster) COVID-19 VACCINE (5 - Booster) [facility] Start: 05-05-2022 Influenza vaccination [facility] Start: 09-04-2021 ADVANCE DIRECTIVE DISCUSSION ADVANCE DIRECTIVE DISCUSSION [facility] Start: 06-08-2021 SERUM CREATININE SERUM CREATININE [facility] Start: 05-11-2021 COVID-19 VACCINE (3 - Booster for Pfizer series) COVID-19 VACCINE (3 - Booster for Pfizer series) [facility] Start: 08-06-2020 Hepatitis B surface antibody level LDL CHOLESTEROL [facility] Start: 05-05-2020 Influenza vaccination INFLUENZA (#1) [facility] Start: 02-05-2020 HbA1c (Bld) [Mass fraction] HBA1C [facility] Start: 10-02-2019 Mammography MAMMOGRAM [facility] Start: 10-02-2019 Screening for malignant neoplasm of breast Mammogram Screening [facility] Start: 07-03-2019 DTaP/Tdap/Td Vaccines (1 - Tdap) DTaP/Tdap/Td Vaccines (1 - Tdap) [facility] Start: 07-03-2019 Urine microalbumin profile [facility] Start: 2015 BONE DENSITY BONE DENSITY [facility] Start: 2010 RSV Immunization aged 60 or older (1 - 1-dose 60+ series) RSV Immunization aged 60 or older (1 - 1-dose 60+ series) [facility] Start: 2010 RSV Immunization for Adults (1 - Risk 60-74 years 1-dose series) RSV Immunization for Adults (1 - Risk 60-74 years 1-dose series) [facility] Start: 2010 RSV Vaccine (1 - 1-dose 60+ series) RSV Vaccine (1 - 1-dose 60+ series) [facility] Start: 2010 RSV Vaccine (1 - Risk 60-74 years 1-dose series) RSV Vaccine (1 - Risk 60-74 years 1-dose series) [facility] Start: 2000 COLORECTAL CANCER SCREENING,SEE MODIFIER COLORECTAL CANCER SCREENING,SEE MODIFIER [facility] Start: 2000 Screening for malignant neoplasm of colon [facility] Start: 2000 Tuberculosis screening COLORECTAL CANCER SCREENING,SEE MODIFIER [facility] Start: 1995 COLOGUARD (FIT-DNA) COLOGUARD (FIT-DNA) [facility] Start: 1995 Colonoscopy COLONOSCOPY [facility] Start: 1995 COLORECTAL CANCER SCREENING COLORECTAL CANCER SCREENING [facility] Start: [address] COLONOGRAPHY [facility] Start: 1995 FECAL OCCULT BLOOD FECAL OCCULT BLOOD [facility] Start: 1995 Screening for malignant neoplasm of colon [facility] Start: 1995 SIGMOIDOSCOPY SIGMOIDOSCOPY [facility] Start: 1990 Screening for malignant neoplasm of breast Mammogram [facility] Start: 1969 Urine microalbumin profile DTAP,TDAP,TD (1 - Tdap) [facility] Start: 1968 ANNUAL PCP TEAM CHRONIC DISEASE VISIT ANNUAL PCP TEAM CHRONIC DISEASE VISIT [facility] Start: 1968 BP CONTROLLED (<130/80) BP CONTROLLED (<130/80) [facility] Start: 1968 Diabetes mellitus screening Diabetes Screening [facility] Start: 1968 HEPATITIS C SCREENING HEPATITIS C SCREENING [facility] Start: 1968 Hepatitis C screening Hepatitis C Screening [facility] Start: 1968 SPIROMETRY SPIROMETRY [facility] Start: 1968 zzSpirometry (Retired) zzSpirometry (Retired) [facility] Start: 1962 Depression Monitoring Depression Monitoring [facility] Start: 1962 Depresssion Monitoring Depresssion Monitoring [facility] Start: 1960 [object Object] DIABETIC FOOT EXAM [facility] Start: 1960 Hepatitis B screening URINE ALBUMIN:CREATININE RATIO [facility] Start: 1960 Hepatitis C antibody, confirmatory test DILATED RETINAL EXAM [facility] Start: 01-29-1951 COVID-19 Vaccine (#1) COVID-19 Vaccine (#1) [facility] Start: 1950 Hepatitis B Vaccines (1 of 3 - 3-dose series) Hepatitis B Vaccines (1 of 3 - 3-dose series) [facility] Start: 1950 Lipid panel Lipid Panel [facility] Start: 1950 Medicare Advantage Annual Wellness Visit (AWV) Medicare Advantage Annual Wellness Visit (AWV) [facility] Start: 1950 Screening for malignant neoplasm of colon [facility] Start: 1950 Screening for osteoporosis Bone Density Scan [facility] Start: 1950 Thyroid Nodule Ultrasound Thyroid Nodule Ultrasound [facility] Biopsy thyroid percutaneous core needle IMAGING GUIDED BIOPSY THYROID Radiology Routine Thyroid mass Ordered: 07/13/2020 [facility] Comment on above: Ordered: 07/13/2020 End: 01-12-2023 CT Cervical spine WO contrast [facility] Work Phone: Comment on above: Once for 1 Occurrences starting 01/13/20 23 until 01/12/2023 End: 07-07-2021 Ct head/brain w/o contrast material CT BRAIN WO IVCON Radiology Routine Intracranial hemorrhage (HCC) 1 Occurrences starting 06/07/2020 until 07/07/2021 [facility] Comment on above: 1 Occurrences starting 06/07/2020 until 07/07/2021 End: 03-24-2025 CTA Chest vessels W contrast IV CTA CHEST (GATED) W IVCON Radiology Routine Aneurysm of ascending aorta without rupture (HCC) Diverticulitis Primary hypertension Disorder of artery or arteriole (HCC) 1 Occurrences starting 02/23/2024 until 03/24/2025 [facility] Comment on above: 1 Occurrences starting 02/23/2024 until 03/24/2025 End: 04-20-2025 CTA Chest vessels W contrast IV CTA CHEST (GATED) W IVCON Radiology Routine Disorder of artery or arteriole (HCC) 1 Occurrences starting 03/21/2024 until 04/20/2025 [facility] Comment on above: 1 Occurrences starting 03/21/2024 until 04/20/2025 End: 05-03-2025 CTA Chest vessels W contrast IV CTA CHEST (GATED) W IVCON Radiology Routine Aneurysm of ascending aorta without rupture (HCC) Disorder of artery or arteriole (HCC) 1 Occurrences starting 04/03/2024 until 05/03/2025 [facility] Work Phone: Comment on above: 1 Occurrences starting 04/03/2024 until 05/03/2025 CYTOLOGY NON-GUEST ATTENDANT CYTOLOGY NON-GY N Lab Routine 07/28/2020 9:05 AM EST [facility] End: 01-02-2026 DBT Breast - bilateral screening SHAYE SCREENING W MARCELO Radiology Routine Encounter for screening mammogram for breast cancer 1 Occurrences starting 12/03/2024 until 01/02/2026 [facility] Work Phone: Comment on above: 1 Occurrences starting 12/03/2024 until 01/02/2026 ECG 12 lead ECG 12 lead CV E CG STAT 12/17/2023 6:10 AM EDT [employer] Work Phone: End: 02-22-2025 ECG COMPLETE ECG COMPLETE ECG Routine Aneurysm of ascending aorta without rupture (HCC) Diverticulitis Primary hypertension Disorder of artery or arteriole (HCC) 1 Occurrences starting 02/23/2024 until 02/22/2025 [facility] Work Phone: Comment on above: 1 Occurrences starting 02/23/2024 until 02/22/2025 End: 03-21-2025 ECG COMPLETE ECG COMPLETE ECG Routine Dilatation of thoracic aorta (HCC) Preop cardiovascular exam Primary hypertension Coronary artery calcification Dyslipidemia Chronic kidney disease, unspecified CKD stage Aneurysm of ascending aorta without rupture (HCC) Diverticulitis Disorder of artery or arteriole (HCC) Dyspnea, unspecified type 1 Occurrences starting 03/21/2024 until 03/21/2025 [facility] Work Phone: Comment on above: 1 Occurrences starting 03/21/2024 until 03/21/2025 End: 02-22-2025 Echocardiography ECHO Cardiology Routine Aneurysm of ascending aorta without rupture (HCC) Diverticulitis Primary hypertension Disorder of artery or arteriole (HCC) 1 Occurrences starting 02/23/2024 until 02/22/2025 [facility] Comment on above: 1 Occurrences starting 02/23/2024 until 02/22/2025 End: 11-15-2024 EGD - THERAPEUTIC, EUS, OR TUBE INTERVENTIONS EGD - THERAPEUTIC, EUS, OR TUBE INTERVENTIONS Endoscopy Routine Esophageal stenosis Adenomatous polyp of duodenum 1 Occurrences starting 11/16/2023 until 11/15/2024 [facility] Work Phone: Comment on above: 1 Occurrences starting 11/16/2023 until 11/15/2024 End: 03-04-2025 Flexible sigmoidoscopy study COLONOSCOPY DIAGNOSTIC Endoscopy Routine Diverticulitis 1 Occurrences starting 03/04/2024 until 03/04/2025 [facility] Work Phone: Comment on above: 1 Occurrences starting 03/04/2024 until 03/04/2025 MISC SEND OUT TEST 1 MISC SEND O UT TEST 1 Lab Routine 07/28/2020 9:33 AM EST [facility] End: 10-21-2022 MR Cervical spine WO contrast [facility] Work Phone: Comment on above: Once for 1 Occurrences starting 10/21/19 until 10/21/2022 OUTSIDE PROCEDURE SCAN OUTSIDE P ROCEDURE SCAN Procedures Ordered: 06/30/2023 [facility] Comment on above: Ordered: 06/30/2023 SURGICAL PATHOLOGY [facility] Work Phone: Comment on above: Release Upon Ordering for 1 Occurrences starting 11/14/2023, 1 completed Us soft tissue head & neck real time imge docm US THYROID/PARATHYROID Radiology Routine Multiple thyroid nodules 11/23/2021 11:05 AM EDT [facility] Work Phone: End: 06-30-2023 XR Cervical spine 4 or 5 Views [facility] Work Phone: Comment on above: Once for 1 Occurrences starting 06/30/20 23 until 06/30/2023 [facility] Immunizations Immunization Date Immunization Notes Care Provider Jasper clarke 05-24-2023 influenza virus vacc ine, unspecified formulation Arely Hercules PA-C Work Phone: [facility] 10-19-2021 influenza, high-dose , quadrivalent vaccine (FLUZONE HIGH DOSE QUADRIVALENT) [facility] 10-19-2021 influenza virus vacc ine, unspecified formulation Alonso Mcgill MD Work Phone: [facility] 06-08-2020 influenza, high-dose , quadrivalent vaccine (FLUZONE HIGH DOSE QUADRIVALENT) Tatiana Alvarez [facility] 07-02-2019 tetanus and diphther ia toxoids, adsorbed, preservative free, for adult use (5 Lf of tetanus toxoid and 2 Lf of diphtheria toxoid) [facility] 05-21-2019 influenza, high dose seasonal, preservative-free [facility] 10-05-2018 zoster vaccine recombinant [facility] 06-08-2018 Seasonal trivalent influenza vaccine, adjuvanted, preservative free [facility] 06-08-2018 zoster vaccine recombinant [facility] 03-20-2018 pneumococcal polysaccharide vaccine, 23 valent [facility] 08-07-2017 influenza, high dose seasonal, preservative-free [facility] 02-15-2017 pneumococcal conjuga te vaccine, 13 valent [facility] 06-06-2016 influenza, high dose seasonal, preservative-free [facility] 08-23-2013 influenza, seasonal, injectable, preservative free [facility] Payers Date Payer Category Payer Self-pay 2025 Unknown [id number] 2022 Medicare HMO [employer] MARILY BRUNNER [id number] 2022 Private Health Insurance [facility] [id number] 2022-2022 [address] [place] [address] Commercial [id number] 2020 Medicaid [id number] 2020 Medicare [id number] 2020 Medicare [id number] 2020 Medicare (Managed Care) [facility] MEDICARE [id number] 2020 Medicare [id number] Unknown [id number] Unknown [id number] Unknown [id number] Social History Date Type Detail Facility Start: 04-30-2020 End: 11-11-2022 Tobacco smoking status NHIS Never smoker [facility] Start: 04-30-2020 End: 11-11-2022 Tobacco use and exposure [facility] used [facility] Start: 04-30-2020 End: 03-04-2024 Alcohol intake Current non-drinker of alcohol (finding) [facility] Start: 1950 Sex Assigned At Female [facility] Start: 11-12-2021 End: 05-26-2023 Exposure to SARS-CoV-2 (event) Not sure [facility] Start: 06-09-2020 End: 03-01-2022 History SDOH Financial 5 [facility] Start: 06-09-2020 End: 03-01-2022 History SDOH Food Worry 1 [facility] Start: 06-09-2020 End: 03-01-2022 History SDOH Transport Med 2 [facility] Exposure to SARS-CoV -2 (event) Unable to assess [facility] Start: 12-07-2022 End: 05-23-2025 Alcohol intake Lifetime non-drinker (finding) [facility] Start: 1950 Sex Assigned At Not on file [facility] [email or web address] Tobacco smoking stat [facility] Tobacco smoking consumption unknown [facility] Start: 03-02-2023 End: 03-03-2023 History of Social function [facility] Start: 03-02-2023 End: 03-03-2023 Humiliation, Afraid, Rape, and Kick questionnaire [HARK] [facility] Within the last year , have you been afraid of your partner or ex-partner? No [facility] How often to you hav e a drink containing alcohol? Never [facility] How many standard dr inks containing alcohol do you have on a typical day? Patient does not drink [email or web address] At any time in the p ast 12 months, were you homeless or living in long term [including now]? Yes [email or web address] (I/We) worried billy er (my/our) food would run out before (I/we) got money to buy more. Never true [facility] Start: 10-17-2019 Gender identity Identifies as female gender (finding) [facility] Work Phone: Start: 10-17-2019 Sexual orientation Heterosexual (finding) [facility] Work Phone: Start: 04-04-2022 Sex Female (finding) [facility] Medical Equipment Procedure Code Equipment Code Equipment Origin al Text Equipment Identifier Dates Graft Dbm Putty Bio 2.5cc Vial - [id number] Start: 03-02-2023 48mm Plate [id number] Start: 03-02-2023 Screw Bn Vas Sd 3.5x15 - [id number] Start: 03-02-2023 Bone Bmp Putty I-Factor 2.5cc - [id number] Start: 03-02-2023 Cage Spinal Mela lock 6deg 7mm - [id number] Start: 03-02-2023 Cage Spinal Mela lock 6deg 7mm - [id number] Start: 03-02-2023 Cage Spinal Mela lock 6deg 7mm - [id number] Start: 03-02-2023 Nail Intertan 10 s [id number] 125d - [id number] FDA Start: 04-21-2025 Screw Bn 5mm 30m m Trgn Fem - [id number] Start: 04-21-2025 Kit Scr 95mm 4.5 mm Intertan - [id number] Start: 04-21-2025 Goals Date Patient Goal Desired Activity /State Personal health goal Personal health goal Functional Status Date Assessment Result Facility 05-23-2025 Patient Health Quest ionnaire 2 item (PHQ-2) [Reported] [facility] 04-19-2025 Total score [AUDIT-C] 0 08/16/20 25 10:16 PM EDT Chandni Ramos RN [facility] 03-03-2022 Are you deaf, or do you have serious difficulty hearing No 03/03/2022 3:41 PM EDT Virginia Adames RN No [facility] 03-03-2022 Are you blind, or do you have serious difficulty seeing, even when wearing glasses No 03/03/2022 3:41 PM EDT Virginia Adames RN No [facility] 03-03-2022 Do you have serious difficulty walking or climbing stairs Yes 03/03/2022 3:41 PM EDT Virginia Adames RN Yes [facility] 03-03-2022 Do you have difficul ty dressing or bathing Yes 03/03/2022 3:41 PM EDT Virginia Adames RN Yes [facility] 03-03-2022 Because of a physica l, mental, or emotional condition, do you have difficulty doing errands alone such as visiting a physician's office or shopping Yes 03/03/2022 3:41 PM EDT Virginai Adames RN Yes [facility] Mental Status Date Assessment Result Facility 03-03-2022 Because of a physica l, mental, or emotional condition, do you have serious difficulty concentrating, remembering, or making decisions No 03/03/2022 3:41 PM EDT Virginia Adames RN No [facility] Clinical Notes 11-06-2020 to 05-23-2025 Stacy Juan GENERAL ADMINISTRATOR - BOOKING OFFICER - 05/23/2025 10:00 AM EDTPatient Vitaly Polanco [...] intertrochanteric fracture of right femur, initial encounter ([facility]) Plan Pily will remain WBAT and focus on aggressive ROM of hip and knee and edema control. She has been working with PT at the [facility]. We reviewed signs and symptoms of infection and DVT. I recommend she follow up in 6 weeks with xrays if pain is not continuing to improve. She knows to call back sooner with any additional questions or concerns. Electronically signed by Stacy Juan CNP 05/23/2025 at 12:35 PM. documented in this encounter [facility] 05-23-2025 Instructions Andreea Elizabeth MA - 05/23/2025 10:00 AM EDT WBAT XR in 6 weeks only if still having pain documented in this encounter [facility] 04-23-2025 Note Hospitalist Discharg e Summary [...] POCT glucose meter Performed by: Richa Mcdonald, [address] [place] [id number] CLIA ID: [id number] === 04/19/25 === CT FEMUR RIGHT WO [...] now Question: Diet type Answer: Regular 04/21/25 1462 Activity: as tolerated Recommended Outpatient Tests: OP [...] known as: Norvasc (more content not included)... [facility] 04-23-2025 Hospital course Narrative Hospitalist Discharge Summary [...] POCT glucose meter Performed by: Richa Mcdonald, [address] [place], [place] [id number] CLIA ID: [id number] === 04/19/25 === CT FEMUR RIGHT WO [...] MG tablet Commonly known as: Cozaar nystatin 915740 UNIT/GM powder Commonly known as: Mycostatin Omeprazole [...] 17 g packet Recommended Follow-up: Skye Bansal, GENERAL ADMINISTRATOR - BOOKING OFFICER [address] [place] [address] Stacy Juan GENERAL ADMINISTRATOR - BOOKING OFFICER [address] [facility] [place] [address] [facility] [address] Follow up in 4 week(s) xrays, ROM check, wound check Complexity of Follow up: [] Moderate Complexity: follow up within 7-14 calendar days (25385) [x] Severe Complexity: follow up within 7 calendar days (78393) Follow up Testing, Pending results or Referrals at Transitional Care Visit: [x] Yes, follow up w OP PCP for thyroid nodule , once discharged from senior living facility [] no Instructions to MA: Please [...] MD Division of Hospitalist Medicine [facility] 04/23/2025, 1:35 PM [1] Past Medical History: Diagnosis Date AA (aortic aneurysm) (HCC) Anxiety Aspirin long-term use history Asthma Bipolar 1 disorder (HCC) Chronic kidney disease Depression Difficulty walking High blood pressure Lack of coordination Mitral valve insufficiency Muscle weakness Presence of intraocular lens Repeated falls Rhabdomyolysis Sleep apnea Suicidal ideations Traumatic subarachnoid hemorrhage without loss of consciousness (HCC) documented in this encounter [facility] 04-23-2025 Progress note Formatting of t his note might be different from the original. Cm received confirmation that 2 pm is confirmed for transport to [place]. CM placed call to Jenise Barnes left message w [employer] and also called Nathanael Barnes and spoke javy huffman via phone to update on transport time. and RN aware of 2 pm apple picker [facility] 04-23-2025 Miscellaneous Notes Cm received confirmation that 2 pm is confirmed for transport to [place]. CM placed call to Jenise Barnes left message w [employer] and also called Nathanael Barnes and spoke javy huffman via phone to update on transport time. and RN aware of 2 pm apple picker Patient Choice Patient Name: PILY BARNES Date of : 1950 All Providers Sent Referral Name: [facility]itional [facility] Phone: [phone] Address: [address] [place], [place] [id number] [facility] Phone: [phone] Address: [address] [place] [address] Name: Armond Gregorio [facility] Phone: [phone] Address: [address] [place] [address] Confirmed pickup time of 2pm by transport company [employer] at phone number [phone]. Location of facility drop off is [facility]. Facility notified via [facility], TCC notified on secure chat. Transport requested 2pm in [employer]. Awaiting time confirmation. Discharge med list transmitted to [facility] via [employer] per TCC request. 7000 was entered into [facility] for the SNF- Facility is aware Cm received notification from [facility] stating pt cleared for dc. Only med change s Klonipin and it was dc'd. CM placed a call to Jenise Barnes [facility] to attempt to update and left v mail. CM did speak with son Nathanael via phone to provide update and advised that dc is being placed and will call back with notification of transport. CM messaged facility [facility]. Task placed to [facility] to set up cot Transport. Awaiting finalized dc order by attending and will have [facility] send dc orders/7000 and MAR> DCP: [facility]. Call placed to Jenise Barnes to inform of insurance auth for admission to [facility]. CM had to leave an additional message w [employer] left name and contact information. Cwe continue to wait for Geriatrics assessment recommendations. CM to continue to reach HCPOA. Late entry by CM this day 04/23. 8:35 AM cm placed calls to pt's son Nathanael Barnes to inform responses from skilled referrals. [facility] accepted and [facility] was not able as no beds available. Permission to proceed with [facility]. CM did also place call to HCPOVI Barnes. Left v mail with phone [employer] ribbon machine operator assistant w call back number. Sujatha Huffman will continue to attempt to reach brother Jenise to update. Cm received notification by [facility] that insurance approval was received for admission to [facility]. Chart reviewed VSS CM completed NARESH. Messaged RN and attending for Orders/naresh completion and Tasked for cot transportation. Referral placed to SNF- [facility] per TCC request. Await review and response regarding ability to accept. TCC notified. Care Managment Initial Assessment Date: 04/22/2025 Patient Name: Pily Barnes : 1950 Patient Information Source of Information: Patient, Patient Hat Liner Name/Contact Information: mina Huffman Cognition/Language: WFL - Within Functional Limits Permission given to speak with patient exhibit display representative/caregiver as indicated: Yes Confirmation of Payer with patient/family: Yes Payer Name: [facility] Medicare [place]: No Confirmation of Primary Care Physician: Confirmed PCP Name: Dr. Mckee from [place] I Seen in last 2 years?: Yes Primary Caregiver: (AL attendants assist with ADLS/Sons assist with Financials/HCPOA) If assistance needed, confirmed caregiver ready, willing and able to care for patient at discharge: Confirmed with: Living Arrangements Current Residence: Number of Floors 1 Number of Entry Steps: 1 Bed/Bath Levels: Both first floor Facility: Assisted Living Facility Name: [facility] Plan to Return: Lives with: Alone Support Systems: Children, Comments (Other) (attendants at [place]) Activities of Daily Living Ambulation: Assistance (walker short dist. to wheelchair) Bathing/Dressing: Assistance (pt requires assist with hair and back / Socks and shoes) Elimination/Continence/Toileting: Assistance (depends) Feeding: Independent Who Assists with Activities of Daily Living: AL staff Instrumental Activities of Daily Living Prescription Coverage: Yes Pharmacy Used: [facility] Medication Management: (nursing administers medications) Transportation/Shopping: Assistance Provider Transportation/Shopping Assistance Provider Name: family/ AL Transportation Mode: Car Needs Assistance with Transportation at Discharge: Yes Meal Preparation: Assistance Provider Meal Prep Assistance Provider Name: [place] staff Laundry/Cleaning: Assistance Provider Laundry/Cleaning Assistance Provider Name: [place] Staff/Family Finances/Bill Paying: Assistance Provider Finances/Bill Payer Assistance Provider Name: reynaldo Communication: Independent Types of Care Services/Equipment Utilized Care Services: Dialysis Type: NA Durable Medical Equipment: Walker, Wheelchair (standard or power) DME Provider: owns and facility based Patient's Goal/Discharge Plan Patient expects to be discharged to: Discharge Planning Actions: Continue to follow, Group Home Facility referral indicated [place] choice: [place] of choice discussed, Choice list provided Patient's [...] self and role. Pt reports being at [facility] for aprox. 3 years. Pt ambulates with walker short distances and transitions to when ambulating to dinning room twice a day. Pt reports she needs assist for hair washing and her back. Assist needed also for application of socks and shoes. Insurance verified [facility] Medicare and pt follows with Dr. Mckee at [place] HCPOA is Claudia/Jenise Barnes. Therapy recommendations reviewed and SNF list presented to pt and sone. CM tasked TRACTOR MECHANIC to place referrals to pt and family selections: [facility] hosp. 2nd and Darline Marcelo 3rd. Awaiting acceptance. DCP: SNF when accepted and approved. CM following. Angel Luis Matos RN Images from the original note were not included. [facility] OR [address] [place] [id number] Dept: [phone] Operative Report Patient Name: Pily Barnes Date [...] to normal structures that can lead to longterm problems of pain or dysfunction, wound healing [...] patient's ASA was verified by the nurse hot dimpling machine operator and the anesthesia staff. Fire risk was [...] was compressed as verified on fluroscopic images. Gxe-Rxzu-Quqapslj was felt to be less than 25 mm on ap/lat images. Using the out center lead consultant a distal locking screw was placed in [...] Rolando Beverly MD, MD Date: 04/21/2025 Location: [facility] OR Name: Pily Barnes, : 1950, Diagnosis Pre-op Diagnosis * Closed displaced intertrochanteric fracture of right femur, initial encounter ([facility]) [S72.141A] Post-op Diagnosis * Closed displaced intertrochanteric fracture of right femur, initial encounter ([facility]) [S72.141A] Procedures RIGHT ORIF, FRACTURE, FEMUR, INTERTROCHANTERIC, WITH INTRAMEDULLARY IMPLANT INSERTION [id number] - VA TX INTER/VA/SUBTRCHNTRIC FEM FX IMED IMPLTSCREW Surgeons * Rolando [...] Action Serial No. Nail NAIL INTERTAN 10S [id number] - [id number] Implanted Screw KIT SCR 95MM 4.5MM INTERTAN - [id number] Implanted Screw SCREW BN 5MM 30MM TRGN FEM - [id number] Implanted Staff: Test Evaluator: Ranjeet Chappell RN Physician Fondant Cooker: Sherry Enriquez PA-C Senior Loan Processor: Beto Diallo RT (R) Relief Test Evaluator: Chela Soliz RN Scrub Person: Lirbado Allen Assist: Cee Carrillo Findings: See op [...] K+ via pump documented in this encounter [facility] 04-23-2025 Progress note Formatting of t his note might be different from the original. Patient Choice Patient Name: PILY BARNES Date of : 1950 All Providers Sent Referral Name: [facility] Phone: [phone] Address: [address] [address] Name: Darline GÓMEZ Member Phone: [phone] Address: [address] [place] [address] [facility]: [phone] Address: [address] [place] [address] T [facility] 04-23-2025 Progress note Formatting of t his note might be different from the original. Confirmed pickup time of 2pm by transport company Dany Liu at phone number [phone]. Location of facility drop off is [facility]. Facility notified via [employer], TCC notified on secure chat. [facility] 04-23-2025 Progress note Formatting of t his note might be different from the original. Transport requested 2pm in [employer]. Awaiting time confirmation. [facility] 04-23-2025 Progress note Formatting of t his note might be different from the original. Discharge med list transmitted to [facility] via [employer] per TCC request. 7000 was entered into [facility] for the SNF- Facility is aware T [facility] 04-23-2025 Progress note Formatting of t [...] notification of transport. CM messaged facility in [employer]. Task placed to [facility] to set up cot Transport. Awaiting finalized dc order by attending and will have [facility] send dc orders/7000 and MAR> DCP: [facility]. T [facility] 04-23-2025 Note Hospitalist Progress Note 04/23/[id number]: Please page me ([phone]) for patient care issues. [phone]: Please page [facility] night Hospitalist for any issues. Subjective: Admit Date: 04/19/2025 PCP: No primary care provider on file. Room#: B1-157/B1-157 Hai Barnes is a 74 y.o. female who presents with Closed nondisplaced intertrochanteric fracture of right femur, initial encounter ([facility]) Interval History: 74-year-old female patient is admitted [...] Son Advance Directive: DNR-CCA Discharge planning: To senior living facility Latoya Polanco MD Division of Hospitalist Medic (more content not included)... [facility] 04-23-2025 History of Present illness Narrative Hospitalist Progress Note 04/23/2025 [phone]: Please page me ([phone]) for patient care issues. [phone]: Please page [facility] Hospitalist for any issues. Subjective: Admit Date: 04/19/2025 PCP: No primary care provider on file. Room#: B1-157/B1-157 A Pily Barnes is a 74 y.o. female who presents with Closed nondisplaced intertrochanteric fracture of right femur, initial encounter ([facility]) Interval History: 74-year-old female patient is admitted [...] Son Advance Directive: DNR-CCA Discharge planning: To senior living facility Latoya Polanco MD Division of Hospitalist Medicine Inpatient Medical Services/[facility] [1] [2] amLODIPine, 2.5 mg, Oral, Daily [...] included. PHYSICAL THERAPY [facility] Treatment Note Name/MRN: Pily Barnes ([id number]) Date of : 1950 Age: 74 y.o. Room/Bed: B1-157/B1-157 A Visit #: 1 out of 7 visits Discharge Recommendation: Group Home Facility Equipment Needed: (TBD at next level [...] SNF p -Ortho signing off, please page cotton stripper resident with questions or concerns. Subjective: Overall [...] included. PHYSICAL THERAPY [facility] Initial Evaluation Name/MRN: Pily Barnes ([id number]) Evaluation Date: 04/22/2025 Date of : 1950 Admission Date: 04/19/2025 3:31 PM Age: 74 y.o. Room/Bed: [facility]157/[facility]157 A Discharge Recommendation: Group Home Facility Equipment Needed: (TBD at next level [...] intertrochanteric fracture of right femur, initial encounter ([facility]) 04/19/2025 Acute kidney injury (HCC) 12/16/2023 Nausea vomiting and diarrhea 12/16/2023 Cervical stenosis of spinal canal 03/02/2023 Shortness of breath 11/18/2022 Syncope and collapse 11/18/2022 Traumatic subdural hematoma of neuraxis ([facility]) 11/18/2022 Recurrent falls 03/01/2022 Rhabdomyolysis 02/28/2022 S/P partial thyroidectomy 02/24/2022 Multiple thyroid nodules 06/15/2020 Allergic rhinitis 06/06/2020 Cardiomegaly 06/06/2020 Herpes simplex 06/06/2020 Hypertensive heart disease without congestive heart failure 06/06/2020 Mixed hyperlipidemia 06/06/2020 Moderate persistent asthma without complication 06/06/2020 Nonrheumatic aortic valve stenosis 06/06/2020 Patent foramen ovale 06/06/2020 Stage 3 chronic kidney disease ([facility]) 06/06/2020 Status post hysterectomy 06/06/2020 Urge incontinence of urine 06/06/2020 Generalized anxiety disorder 10/17/2019 Insomnia 08/06/2019 Vitamin D deficiency 08/06/2019 Suicide attempt ([facility]) 11/13/2017 Mild intermittent asthma 09/23/2017 Bipolar 1 disorder, depressed, severe ([facility]) ([facility]) 09/22/2017 Severe recurrent major depression with psychotic features ([facility]) 09/22/2017 Primary hypertension 09/20/2017 Closed displaced intertrochanteric fracture of right femur ([facility]) 04/19/2025 Medical Precautions: No active isolations Proper [...] Hearing: normal Social/Functional History Patient [facility] from [facility]. Assistive Equipment: front wheeled walker and wheelchair [...] able to progress to min A with RAILROAD SHOP INSPECTOR to maintain upright. Pt limited by fatigue. [...] Raw Score (No Stairs) : 7 [facility] Score: Sat at edge of bed Plan Pt would benefit from skilled acute PT services to address Strengthening, Gait Training, Balance Training, Functional Mobility Training, Endurance Training, Safety Education and Training, Pain Management, Equipment Evaluation/Education, Patient/Caregiver Training, and Positioning. Frequency: 7 [id number]/day Barriers: Pain, Impaired balance, Lower extremity weakness, [...] of Care supervision is transferred to a [facility] Therapy Services Physical Therapist. Goals and/or treatment [...] THYROID SURGERY N/A half Hospitalist Progress Note 04/22/[id number]: Please page me ([phone]) for patient care issues. [phone]: Please page [facility] Hospitalist for any issues. Subjective: Admit Date: 04/19/2025 PCP: No primary care provider on file. Room#: B1-157/B1-157 Hai Barnes is a 74 y.o. female who presents with Closed nondisplaced intertrochanteric fracture of right femur, initial encounter ([facility]) Interval History: 74-year-old female patient is admitted [...] about discharge planning, will need placement to senior living facility -am labs, replace lytes prn -increase [...] Son Advance Directive: DNR-CCA Discharge planning: To senior living facility Latoya Polanco MD Division of Hospitalist Medicine Inpatient Medical Services/[facility] [1] dextrose 5 % and sodium chloride [...] included. OCCUPATIONAL THERAPY [facility] Initial Evaluation Name/MRN: Pily Barnes ([id number]) Evaluation Date: 04/22/2025 Date of : 1950 Admission Date: 04/19/2025 3:31 PM Age: 74 y.o. Room/Bed: B1-157/B1-157 A Discharge Recommendation: Group Home Facility Assessment IMPRESSION: Pt is a 74 y/o F admitted to [facility] d/t a fall in the bathroom resulting in a R femur fracture requiring intramedullary nailing of the R femur, pt is WBAT/ROM as tolerated and on 4L O2. She is not on O2 at baseline and lives in [facility], states that she would walk hallway to [...] initial encounter (HCC) 04/19/2025 Acute kidney injury ([facility]) 12/16/2023 Nausea vomiting and diarrhea 12/16/2023 Cervical stenosis of spinal canal 03/02/2023 Shortness of breath 11/18/2022 Syncope and collapse 11/18/2022 Traumatic subdural hematoma of neuraxis ([facility]) 11/18/2022 Recurrent falls 03/01/2022 Rhabdomyolysis 02/28/2022 S/P [...] asthma 09/23/2017 Bipolar 1 disorder, depressed, severe ([facility]/HCC) ([facility]) 09/22/2017 Severe recurrent major depression with psychotic features ([facility]) 09/22/2017 Primary hypertension 09/20/2017 Closed displaced intertrochanteric fracture of right femur ([facility]) 04/19/2025 Medical Precautions: No active isolations Proper [...] Oriented x4 Social/Functional History Patient admitted from [facility]. Assistive Equipment: front wheeled walker and wheelchair [...] States at baseline she has aid at [facility] HOME that completes most of the bathing and [...] States that she walks from room to fci to the dining room and then is pushed in wheelchair the rest of the way. Completes this for meal time at [facility]. Device(s) used: Front wheeled walker Vision: Not [...] of Care supervision is transferred to a [facility] Therapy Services Occupational Therapist. Goals and/or treatment [...] HYSTERECTOMY THYROID SURGERY N/A half Cosigned by Sabas Del Valle OT at 04/22/2025 [...] planning: dispo p -Ortho following, please page cotton stripper resident with questions or concerns. Subjective: Overall [...] patient's medical record. Hospitalist Progress Note 04/21/2025 [phone]: Please page me ([phone]) for patient care issues. [phone]: Please page [facility] Hospitalist for any issues. Subjective: Admit Date: 04/19/2025 PCP: No primary care provider on file. Room#: B1-157/B1-157 Hai Barnes is a 74 y.o. female who presents with Closed nondisplaced intertrochanteric fracture of right femur, initial encounter ([facility]) Interval History: 74-year-old female patient is admitted [...] Son Advance Directive: DNR-CCA Discharge planning: To senior living facility Latoya Polanco MD Division of Hospitalist Medicine Inpatient Medical Services/[facility] [1] dextrose 5 % and sodium chloride [...] may resume post-op per medicine -Please page cotton stripper ortho resident with any questions/concerns. Hospitalist Progress Note 04/20/[id number]: Please page me ([phone]) for patient care issues. [phone]: Please page [facility] night Hospitalist for any issues. Subjective: Admit Date: 04/19/2025 PCP: No primary care provider on file. Room#: B1-157/B1-157 Hai Barnes is a 74 y.o. female who presents with Closed nondisplaced intertrochanteric fracture of right femur, initial encounter ([facility]) Interval History: 74-year-old female patient is admitted [...] MD Division of Hospitalist Medicine Inpatient Medical Services/[facility] [1] dextrose 5 % and sodium chloride [...] glycol (PEG) 3350 documented in this encounter [facility] 04-23-2025 Progress note Formatting of t his note might be different from the original. Call placed to Jenise Barnes to inform of insurance auth for admission to [facility]. CM had to leave an additional message w [employer] assistance left name and contact information. Cwe continue to wait for Geriatrics assessment recommendations. CM to continue to reach HCPOA. [facility] 04-23-2025 Progress note Formatting of t his note might be different from the original. Late entry by CM this day 04/23. 8:35 AM cm placed calls to pt's son Nathanael Barnes to inform responses from skilled referrals. [facility] accepted and [facility]. Don was not able as no beds available. Permission to proceed with [facility]. CM did also place call to HCPOA Jenise Barnes. Left v mail with phone [employer] glass ribbon machine operator assistant w call back number. Sujatha Huffman will continue to attempt to reach brother Jenise to update. [facility] 04-23-2025 Progress note Formatting of t his note might be different from the original. Cm received notification by [facility] that insurance approval was received for admission to [facility]. Chart reviewed VSS CM completed ANRESH. Messaged RN and attending for Orders/naresh completion and Tasked for cot transportation. [facility] 04-23-2025 Consult note Associated Order (s): IP CONSULT TO GERIATRICS [facility] Geriatric Medicine Inpatient Consult Service Admission Date: 04/19/2025 Admission Status: INPATIENT Chief Complaint: fall Reason for Appointment Geriatrics consulted for Polypharmacy and falls Assessment & Plan Principal Problem: Closed nondisplaced intertrochanteric fracture of right femur, initial encounter ([facility]) Active Problems: Debility Acute pain due to trauma Bipolar 1 disorder ([facility]) At risk for delirium Debility -Contributing factors [...] 04/21/25. -She lives in an assisted living "[facility]". She has been there for about three [...] Claudia but was unable to get through. [employer] glass ribbon machine operator assistant said he was unavailable I called patient's assisted living facility and spoke with nursing staff: -No major cognitive issues or behavioral issues at baseline -She does not have an order for prn clonazepam at her facility Advance Care Planning Healthcare Power of Company Marker: yes, son Jenise Allergies[1] Current Medications[2] Medical [...] Onset Cancer Mother No Known Problems Father [facility] 04-23-2025 Consult note Associated Order (s): IP CONSULT TO GERIATRICS [facility] Admission Date: 04/19/2025 Admission Status: INPATIENT Chief Complaint: fall Reason for Appointment Geriatrics consulted for Polypharmacy and falls Assessment & Plan Principal Problem: Closed nondisplaced intertrochanteric fracture of right femur, initial encounter ([facility]) Active Problems: Debility Acute pain due to trauma Bipolar 1 disorder ([facility]) At risk for delirium Debility -Contributing factors [...] 04/21/25. -She lives in an assisted living "[facility]". She has been there for about [...] Claudia but was unable to get through. [employer] glass ribbon machine operator assistant said he was unavailable I called patient's assisted living facility and spoke with nursing staff: -No major cognitive issues or behavioral issues at baseline -She does not have an order for prn clonazepam at her facility Advance Care Planning Healthcare Power of Company Marker: yes, son Jenise Allergies[1] Current Medications[2] Medical [...] Pily Barnes Date of : 1950 Acct: [id number] PCP: No primary care provider on file. [...] mouth daily. 09/27/22 Historical Provider, nystatin (Mycostatin) 560527 UNIT/GM powder Apply 1 Application topically 2 [...] Resource Strain: Low Risk (03/01/2022) Received from [facility] Overall Financial Resource Strain (CARDIA) Difficulty of Paying Living Expenses: Not hard at all Food Insecurity: No Food Insecurity (03/01/2022) Received from [facility] Hunger Vital Sign Worried About Running [...] clearance in case of OR, page ortho cotton stripper with clearance status Helen Alejandro MD Orthopaedic Surgery PGY-2 Epic Segun Rocha MD Orthopaedic Surgery, PGY-4 Addendum: The risks and benefits of hip fracture surgery have been discussed with the patient which include, but are not limited to, infections (including severe sequelae), potential component failure, fracture, DVT, pulmonary embolus, nerve palsy, dislocation, leg length inequality, persistent pain, wound healing complications, transfusions and . [facility] 04/21/25 9758 [1] Past Medical History: Diagnosis Date Anxiety [...] mouth daily., Disp: , Rfl: nystatin (Mycostatin) 977289 UNIT/GM powder, Apply 1 Application topically 2 times daily. Under breasts, Disp: , Rfl: Omeprazole 20 MG tablet delayed-release, , Disp: , Rfl: [4] Family History Problem Relation Name Age of Onset Cancer Mother No Known Problems Father documented in this encounter [facility] 04-22-2025 Note PHYSICAL THERAPY [facility] Initial Evaluation Name/MRN: Pily Barnes ([id number]) Evaluation Date: 04/22/2025 Date of : 1950 Admission Date: 04/19/2025 3:31 PM Age: 74 y.o. Room/Bed: B1-157/B1-157 A Discharge Recommendation: Group Home Facility Equipment Needed: (TBD at next level [...] intertrochanteric fracture of right femur, initial encounter ([facility]) 04/19/2025 Acute kidney injury ([facility]) 12/16/2023 Nausea vomiting and diarrhea 12/16/2023 Cervical stenosis of spinal canal 03/02/2023 Shortness of breath 11/18/2022 Syncope and collapse 11/18/2022 Traumatic subdural hematoma of neuraxis ([facility]) 11/18/2022 Recurrent falls 03/01/2022 Rhabdomyolysis 02/28/2022 S/P partial thyroidectomy 02/24/2022 Multiple thyroid nodules 06/15/2020 Allergic rhinitis 06/06/2020 Cardiomegaly 06/06/2020 Herpes simplex 06/06/2020 Hypertensive heart disease without congestive heart failure 06/06/2020 Mixed hyperlipidemia 06/06/2020 Moderate persistent asthma without complication 06/06/2020 Nonrheumatic aortic valve stenosis 06/06/2020 Patent foramen ovale 06/06/2020 Stage 3 chronic kidney disease ([facility]) 06/06/2020 Status post hysterectomy 06/06/2020 Urge incontinence of urine 06/06/2020 Generalized anxiety disorder 10/17/2019 Insomnia 08/06/2019 Vitamin D deficiency 08/06/2019 Suicide attempt ([facility]) 11/13/2017 Mild intermittent asthma 09/23/2017 Bipolar 1 disorder, depressed, severe ([facility]/HCC) ([facility]) 09/22/2017 Severe recurrent major depression with psychotic features ([facility]) 09/22/2017 Primary hypertension 09/20/2017 Closed displaced intertrochanteric fracture of right femur ([facility]) 04/19/2025 Medical Precautions: No active isolations Proper [...] Hearing: normal Social/Functional History Patient admitted from [facility]. Assistive Equipment: front wheeled walker and wheelchair [...] able to progress to min A with RAILROAD SHOP INSPECTOR to maintain upright. Pt limited by fatigue. [...] with cues provi (more content not included)... [facility] 04-22-2025 Note Referral placed to [facility] via [facility] per TCC request. Await review and response regarding ability to accept. [facility] notified. [facility] 04-22-2025 Progress note Formatting of t his note might be different from the original. Ref[facility] per TCC request. Await review and response regarding ability to accept. [facility] notified. [facility] 04-22-2025 Note Hospitalist Progress Note 04/22/2025 [phone]: Please page me ([phone]) for patient care issues. [phone]: Please page [facility] Hospitalist for any issues. Subjective: Admit Date: 04/19/2025 PCP: No primary care provider on file. Room#: B1-157/B1-157 A Pily Barnes is a 74 y.o. female who presents with Closed nondisplaced intertrochanteric fracture of right femur, initial encounter ([facility]) Interval History: 74-year-old female patient is admitted [...] about discharge planning, will need placement to senior living facility -am labs, replace lytes prn -increase [...] Son Advance Directive: DNR-CCA Discharge planning: To senior living facility [facility] (more content not included)... [facility] 04-22-2025 Progress note Formatting of t his note might be different from the original. Care Managment Initial Assessment Date: 04/22/2025 Patient Name: Pily Barnes : 1950 Patient Information Source of Information: Patient, Patient Hat Liner Name/Contact Information: mina Huffman Cognition/Language: WFL - Within Functional Limits Permission given to speak with patient exhibit display representative/caregiver as indicated: Yes Confirmation of Payer with patient/family: Yes Payer Name: [facility] Medicare Garrett: No Confirmation of Primary Care Physician: Confirmed PCP Name: Dr. Mckee from [place] I Seen in last 2 years?: Yes Primary Caregiver: (AL attendants assist with ADLS/Sons assist with Financials/HCPOA) If assistance needed, confirmed caregiver ready, willing and able to care for patient at discharge: Confirmed with: Living Arrangements Current Residence: Number of Floors 1 Number of Entry Steps: 1 Bed/Bath Levels: Both first floor Facility: Assisted Living Facility Name: [facility] Plan to Return: Lives with: Alone Support Systems: Children, Comments (Other) (attendants at [facility]) Activities of Daily Living Ambulation: Assistance (walker [...] Assistance Provider Meal Prep Assistance Provider Name: [place] staff Laundry/Cleaning: Assistance Provider Laundry/Cleaning Assistance Provider Name: [place] Staff/Family Finances/Bill Paying: Assistance Provider Finances/Bill Payer Assistance Provider Name: reynaldo Communication: Independent Types of Care Services/Equipment Utilized Care Services: Dialysis Type: NA Durable Medical Equipment: Walker, Wheelchair (standard or power) DME Provider: owns and facility based Patient's Goal/Discharge Plan Patient expects to be discharged to: Discharge Planning Actions: Continue to follow, Group Home Facility referral indicated [place] of choice: [place] of choice discussed, Choice list provided Patient's Choice Rights and [employer] and Collaborative Relationships Disclosed as Indicated for Post-Acute Care: Yes Interdisciplinary Team Engagement: PT/OT, Home Health Care Social Work Referral for: Additional Information: Pt admitted to hospital s/p slip and fall in bathroom of [facility]. Diagnosed via x ray/CT w acute R [...] self and role. Pt reports being at [facility] for aprox. 3 years. Pt ambulates with walker short distances and transitions to when ambulating to dinning room twice a day. Pt reports she needs assist for hair washing and her back. Assist needed also for application of socks and shoes. Insurance verified [facility] Medicare and pt follows with Dr. Mckee at [place] HCPOA is Claudia/Jenise Barnes. Therapy recommendations reviewed and SNF list presented to pt and sonmegan. CM tasked TRACTOR MECHANIC to place referrals to pt and family selections: [facility] 2nd and [facility] 3rd. Awaiting acceptance. DCP: SNF when accepted and approved. CM following. Angel Luis Matos RN [facility] 04-21-2025 Note Patient: Pily miller Procedure Summary Date: 04/21/25 Room / Location: [address] Operating Room Anesthesia Start: 1335 Anesthesia Stop: 1518 Procedure: RIGHT ORIF, FRACTURE, FEMUR, INTERTROCHANTERIC, WITH INTRAMEDULLARY IMPLANT INSERTION (Right: Hip) Diagnosis: Closed displaced intertrochanteric fracture of right femur, initial encounter ([facility]) Surgeons: Rolando Beverly MD Responsible Provider: TIFFANIE [...] once all PACU criteria has been met. [facility] 04-21-2025 Note Patient: Pily miller Procedure Summary Date: 04/21/25 Room / Location: [address] Operating Room Anesthesia Start: 5 Anesthesia Stop: 8 Procedure: RIGHT ORIF, FRACTURE, FEMUR, INTERTROCHANTERIC, WITH INTRAMEDULLARY IMPLANT INSERTION (Right: Hip) Diagnosis: Closed displaced intertrochanteric fracture of right femur, initial encounter ([facility]) Surgeons: Rolando Beverly MD Responsible Provider: Amy Archuleta APRN - INJECTION MOLD TOOLING TECHNICIAN Anesthesia Type: general, regional ASA Status: 3 [...] opportunity for questions and acknowledgement of understanding. [facility] 04-21-2025 Note Airway Date/Time: 04/21/2025 1:42 PM Reason: scheduled Airway not difficult General Information and Staff Patient location during procedure: Procedural Resident/INJECTION MOLD TOOLING TECHNICIAN: Amy Archuleta APRN - INJECTION MOLD TOOLING TECHNICIAN Performed: SRNA Patient Condition Indications for airway [...] 21 Number of attempts at approach: 1 [facility] 04-21-2025 Note Peripheral Block Time Out: 04/21/2025 1:00 PM Patient location during procedure: pre-op Start time: 04/21/2025 1:05 PM End time: 04/21/2025 1:10 PM Reason for block: at surgeon's request and post-op pain management Staffing Performed: INJECTION MOLD TOOLING TECHNICIAN Resident/INJECTION MOLD TOOLING TECHNICIAN: TIFFANIE Schultz CRNA Preanesthetic Checklist Completed: patient identified, IV checked, site marked, risks and benefits discussed, surgical consent and timeout performed Region: Lower Extremities Primary: Malachi Peripheral Block Patient position: supine Prep: ChloraPrep Patient monitoring: heart rate, continuous pulse ox, library monitor and continuous capnometry O2: Nasal cannula [...] No paresthesias reported by patient during injectionMedications qkuMIKFJxlegi-trbmkjcleuc-bnsqqeaz ine (TAP) syringe - Injection 20 mL - 04/21/2025 1:05:00 PM [facility] 04-21-2025 Procedure note Images from the original note were not included. [facility] [address] [place] [id number] Dept: [phone] Operative Report Patient Name: Pily Barnes Date [...] to normal structures that can lead to watermelon inspector problems of pain or dysfunction, wound healing [...] patient's ASA was verified by the nurse hot dimpling machine operator and the anesthesia staff. Fire risk was [...] was compressed as verified on fluroscopic images. Xzb-Ctqb-Vvijnety was felt to be less than 25 mm on ap/lat images. Using the out center lead consultant a distal locking screw was placed in [...] 24hrs abx Signed by: Rolando Beverly MD, [facility] 04-21-2025 Procedure note Date: 04/21/2025 Location: [facility] OR Name: Pily Barnes, : 1950, Diagnosis Pre-op Diagnosis * Closed displaced intertrochanteric fracture of right femur, initial encounter ([facility]) [S72.141A] Post-op Diagnosis * Closed displaced intertrochanteric fracture of right femur, initial encounter ([facility]) [S72.141A] Procedures RIGHT ORIF, FRACTURE, FEMUR, INTERTROCHANTERIC, WITH INTRAMEDULLARY IMPLANT INSERTION 90036 - VA TX INTER/VA/SUBTRCHNTRIC FEM FX IMED IMPLTSCREW Surgeons * Rolando [...] Action Serial No. Nail NAIL INTERTAN 10S [id number] - [id number] Implanted Screw KIT SCR 95MM 4.5MM INTERTAN - [id number] Implanted Screw SCREW BN 5MM 30MM TRGN FEM - [id number] Implanted Staff: Test Evaluator: Ranjeet Chappell RN Physician Fondant Cooker: Sherry Enriquez PA-C Senior Loan Processor: Beto Diallo, RT (R) Relief Test Evaluator: Chela Soliz RN Scrub Person: Librado Paredes Section Plotter Operator: Cee Carrillo Findings: See op note Complications: [...] Beverly MD at 04/22/2025 6:43 AM EDT [employer] Phone: 04-21-2025 Note Hospitalist Progress Note 04/21/2025 [phone]: Please page me ([phone]) for patient care issues. [phone]: Please page [facility] Hospitalist for any issues. Subjective: Admit Date: 04/19/2025 PCP: No primary care provider on file. Room#: B1-157/B1-157 Hai Barnes is a 74 y.o. female who presents with Closed nondisplaced intertrochanteric fracture of right femur, initial encounter ([facility]) Interval History: 74-year-old female patient is admitted [...] Son Advance Directive: DNR-CCA Discharge planning: To senior living facility Latoya Polanco MD Division of Hospitalist Medicine Inpatient Medical Services[facility] [1] dextrose 5 % and sodium chloride 0.9 % with KCl 20 mEq, 125 mL/hr, Last Rate: 125 mL/hr (04/21/25 0932) [2] amLODIPine, 2.5 mg, Oral, Daily ARIPiprazole, 5 mg, Oral, Daily buPROPion XL, 300 mg, Oral, Daily FLUoxetine, 60 mg, Oral, Daily lamoTRIgine, 50 mg, Oral, Daily losartan, 100 mg, Oral, Daily mometasone-formoterol, 2 puff, Inhalation, BID rosuvasta (more content not included)... [facility] 04-21-2025 Nurse Note Warm blankets applied. BP 168/85 81 93% on 2L [facility] 04-21-2025 Nurse Note Pt states nausea is better. 168/90 81 94% on 2L. Sons at bedside [facility] 04-21-2025 Hospital Discharge instructions Tanesha Stahlnabil - 04/21/2025 1:12 PM EDT Images from the original note were not included. Dr. Rolando Beverly Adult Hip and Knee Reconstruction [phone] Total Hip Discharge Instruction Physical Therapy Physical [...] blood clots after surgery Tramadol (Ultram), Hydrocodone (Enfield), Oxycodone (Percocet) - Pain control after surgery [...] are taking narcotic pain medicine such as Enfield, Percocet, Hydrocodone or Oxycodone. Question: When can [...] Severe recurrent major depression with psychotic features ([facility]) Shortness of breath Stage 3 chronic kidney disease (HCC) Status post hysterectomy Syncope and collapse Traumatic subdural hematoma of neuraxis ([facility]) Urge incontinence of urine Vitamin D deficiency [...] assistance Toileting Total assistance Feeding Minimal assistance Elevator Pilot Total assistance Med Delivery no Wound Care [...] Status Date: Discharging to Facility/ Agency Name: [facility] Address:[place] [address] Fax: Candy Waffle Assembler/Litigation Examiner signature: ICIAN SECTION Name: Pily Barnes Prognosis: fair Condition at Discharge: stable Rehab Potential (if transferring to Rehab): fair Recommended Labs or Other Treatments After Discharge: cbc and BMP in 3 days The individual is being admitted to a nursing facility directly from an [facility] or a unit of a [facility] that is not operated by or licensed by [facility] under section 5119.14 or 5160-3-15.1 5 The individual requires the level of services provided by a nursing facility for the condition for which he or she was treated in the hospital and, Physician Certification: I certify the above information and transfer of Pily Barnes is necessary for the continuing treatment of the diagnosis listed and that she requires senior living facility for less than 30 days. Update Admission H&P: No change in H&P PHYSICIAN SIGNATURE: documented in this encounter [facility] 04-21-2025 Nurse Note Pt c/o nausea, zofran given per Dr Henderson order. [facility] 04-21-2025 Nurse Note Arrived in [facility], A+O x3, sons at bedside. IV K+ via pump [facility] 04-21-2025 Note Patient: Pily Wade Cas ey Procedure Information Date/Time: 04/21/25 1430 Procedure: RIGHT ORIF, FRACTURE, FEMUR, INTERTROCHANTERIC, WITH INTRAMEDULLARY IMPLANT INSERTION (Right: Hip) Location: [address] Operating Room Surgeons: Rolando Beverly MD [...] Medical History: No date: AA (aortic aneurysm) ([facility]) No date: Anxiety No date: Aspirin long-term use Comment: history No date: Asthma No date: Bipolar 1 disorder ([facility]) No date: Chronic kidney disease No date: Depression No date: Difficulty walking No date: High blood pressure No date: Lack of coordination No date: Mitral valve insufficiency No date: Muscle weakness No date: Presence of intraocular lens No date: Repeated falls No date: Rhabdomyolysis No date: Sleep apnea No date: Suicidal ideations No date: Traumatic subarachnoid hemorrhage without loss of consciousness ([facility]) Past Surgical History: Past Surgical History: 03/02/2023: [...] or any previous visit. Additional Equipment Requests [facility] 04-20-2025 Note Hospitalist Progress Note 04/20/2025 [phone]: Please page me ([phone]) for patient care issues. [phone]: Please page [facility] Hospitalist for any issues. Subjective: Admit Date: 04/19/2025 PCP: No primary care provider on file. Room#: B1157/B1157 Hai Barnes is a 74 y.o. female who presents with Closed nondisplaced intertrochanteric fracture of right femur, initial encounter ([facility]) Interval History: 74-year-old female patient is admitted [...] MD Division of Hospitalist Medicine Inpatient Medical Services[facility] [1] dextrose 5 % and sodium chloride [...] clonazePAM, methocarbamol, morphin (more content not included)... [facility] 04-19-2025 History and physical note History and Physical [facility] Pily Barnes : 1950 AGE 74 [...] on MonApr 19, 2025 7:16 PM (Inactive) It Systems Administrator RES: Mayco Bhakta II, MD, starting on [...] Multivitamin) tablet 1 tablet, Daily nystatin (Mycostatin) 825854 UNIT/GM powder 1 Application, 2 times daily [...] 04/19/2025 399 QTC Interval 04/19/2025 426 P Benton 04/19/2025 29 QRS Benton 04/19/2025 -28 T Wave Benton 04/19/2025 84 VA Interval 04/19/2025 198 EKG Encounter Date: 04/19/25 ECG 12 lead Result Value Heart Rate 69 QRSD Interval 116 QT Interval 399 QTC Interval 426 P Benton 29 QRS Benton -28 T Wave Benton 84 VA Interval 198 Impression Sinus rhythm Incomplete left [...] not available in our system here at [facility] but in Care Everywhere she appears to [...] Time spent on admission 04/19/2025 Pily Barnes [id number] Any scheduled follow up appointments No future [...] PRN medications: morphine sulfate, naloxone, oxyCODONE [7] [email or web address] Work Phone: 04-19-2025 Note History and Physical [facility] Pily Barnes : 1950 AGE 74 y.o. YEARS Note Date 04/19/2025 Primary Care Physician:No primary care provider on file. Phone None Fax None Current Providers as of 04/19/2025 PCP: not found Referring Provider: not found, starting on [facility] Apr 19, 2025 12:00 AM Admitting Provider: Jacek Iniguez MD, (Active) Attending Provider: Javon Boone DO, starting on [facility] Apr 19, 2025 3:35 PM, ending on MonApr 19, 2025 8:27 PM (Inactive) Attending Provider: Jacek Iniguez MD, starting on [facility] Apr 19, 2025 7:49 PM (Active) Registered Nurse: Randi Henderson RN, starting on MonApr 19, 2025 3:33 PM, ending on MonApr 19, 2025 7:16 PM (Inactive) It Systems Administrator RES: Mayco Bhakta II, MD, starting on MonApr 19, 2025 3:33 PM, ending on MonApr 19, 2025 8:27 PM (Inactive) Registered Nurse: Nadiya Gonzales RN, starting on [facility] Apr 19, 2025 6:55 PM, ending on MonApr 19, 2025 8:27 PM (Inactive) Consulting Physician: Niko Causey MD, starting on [facility] Apr 19, 2025 7:00 PM (Active) Registered Nurse: Chandni Ramos RN, starting on [facility] Apr 19, 2025 8:27 PM (Active) Chief [...] Multivitamin) tablet 1 tablet, Daily nystatin (Mycostatin) 686137 UNIT/GM powder 1 Application, 2 times daily [...] Neck: Supple, with (more content not included)... [facility] 04-19-2025 History and physical note History and Physical [facility] Pily Barnes : 1950 AGE 74 [...] on MonApr 19, 2025 7:16 PM (Inactive) It Systems Administrator RES: Mayco Bhakta II, MD, starting on [...] Multivitamin) tablet 1 tablet, Daily nystatin (Mycostatin) 740124 UNIT/GM powder 1 Application, 2 times daily [...] 04/19/2025 399 QTC Interval 04/19/2025 426 P Benton 04/19/2025 29 QRS Benton 04/19/2025 -28 T Wave Benton 04/19/2025 84 VA Interval 04/19/2025 198 EKG Encounter Date: 04/19/25 ECG 12 lead Result Value Heart Rate 69 QRSD Interval 116 QT Interval 399 QTC Interval 426 P Benton 29 QRS Benton -28 T Wave Benton 84 VA Interval 198 Impression Sinus rhythm Incomplete left [...] not available in our system here at [facility] but in Care Everywhere she appears to [...] spent on admission 04/19/2025 Pily Mauro Cameron [id number] Any scheduled follow up appointments No future [...] naloxone, oxyCODONE [7] documented in this encounter [facility] 04-19-2025 Emergency department Note Pt back to room from imaging. [facility] 04-19-2025 Emergency department Note Pt back to room from imaging. Pt off unit to imaging. Nurse Chel called for update Emergency Department Encounter [facility] ED Patient: Pily Barnes : 1950 [...] with secondary repolarization abnormality Rhythm Strip: The library monitor was ordered secondary to the patient's [...] (Consults) Discussed care with: Discussed case with senior billing consultant, admitting team. They agree with current work up and management. They will evaluate and provide further recommendations, please refer to their note for detailed explanation. They agree to admit the patient for further workup and management. Discussed case with senior billing consultant, ortho. They agree with current work [...] 1 tablet by mouth daily. nystatin (Mycostatin) 943777 UNIT/GM powder Apply 1 Application topically 2 [...] ORIF on Monday. Patient admitted to the [facility] hospitalist service. Diagnoses as of 04/19/252319 Closed nondisplaced intertrochanteric fracture of right femur, initial encounter ([facility]) External records reviewed: Diagnostics interpreted by me: [...] intertrochanteric fracture of right femur, initial encounter ([facility]) 2. Closed displaced intertrochanteric fracture of right femur, initial encounter ([facility]) DISPOSITION Admit 04/19/2025 07:49:32 PM PATIENT REFERRED [...] Resource Strain: Low Risk (03/01/2022) Received from [facility] Overall Financial Resource Strain (CARDIA) Difficulty of Paying Living Expenses: Not hard at all Food Insecurity: No Food Insecurity (03/01/2022) Received from [facility] Hunger Vital Sign Worried About Running [...] Yes Mayco Bhakta II, MD Resident 04/19/25 3449 Cosigned by Javon Boone DO at 04/20/2025 2:27 PM EDT Pt arrived via EMS from [facility] assisted living facility after a fall in [...] answer questions appropriately. documented in this encounter [facility] 04-19-2025 Emergency department Note Pt off unit to imaging. [facility] 04-19-2025 Consult note Formatting of th is note is different from the original. Ortho Consult Patient: Pily Barnes Date of : 1950 Acct: [id number] PCP: No primary care provider on file. [...] mouth daily. 09/27/22 Historical Provider, nystatin (Mycostatin) 133103 UNIT/GM powder Apply 1 Application topically 2 [...] Resource Strain: Low Risk (03/01/2022) Received from [facility] Overall Financial Resource Strain (CARDIA) Difficulty of Paying Living Expenses: Not hard at all Food Insecurity: No Food Insecurity (03/01/2022) Received from [facility] Hunger Vital Sign Worried About Running [...] clearance in case of OR, page ortho cotton stripper with clearance status Helen Alejandro MD Orthopaedic [...] complications, transfusions and . Rolando Beverly 04/21/25 5319 [1] Past Medical History: Diagnosis Date Anxiety [...] mouth daily., Disp: , Rfl: nystatin (Mycostatin) 599072 UNIT/GM powder, Apply 1 Application topically 2 times daily. Under breasts, Disp: , Rfl: Omeprazole 20 MG tablet delayed-release, , Disp: , Rfl: [4] Family History Problem Relation Name Age of Onset Cancer Mother No Known Problems Father [facility] [email or web address] Work Phone: 04-19-2025 Emergency department Note Nurse Chel called for update [facility] 04-19-2025 Emergency department Triage note Pt arrived via EMS from [facility] living [facility] after a fall in the [...] VSS and able to answer questions appropriately. [facility] 04-19-2025 Physician Emergency department Note Emergency Department Encounter [facility] ED Patient: Pily Barnes : 1950 [...] with secondary repolarization abnormality Rhythm Strip: The library monitor was ordered secondary to the patient's [...] (Consults) Discussed care with: Discussed case with senior billing consultant, admitting team. They agree with current work up and management. They will evaluate and provide further recommendations, please refer to their note for detailed explanation. They agree to admit the patient for further workup and management. Discussed case with senior billing consultant, ortho. They agree with current work [...] [employer] Javon Boone DO 04/19/251956 [employer] Phone: 04-19-2025 Physician Emergency department Note EMERGENCY [...] 1 tablet by mouth daily. nystatin (Mycostatin) 783973 UNIT/GM powder Apply 1 Application topically 2 [...] ORIF on Monday. Patient admitted to the [facility] hospitalist service. Diagnoses as of 04/19/250 Closed [...] intertrochanteric fracture of right femur, initial encounter ([facility]) 2. Closed displaced intertrochanteric fracture of right femur, initial encounter ([facility]) DISPOSITION Admit 04/19/2025 07:49:32 PM PATIENT REFERRED [...] Resource Strain: Low Risk (03/01/2022) Received from [facility] Overall Financial Resource Strain (CARDIA) Difficulty of Paying Living Expenses: Not hard at all Food Insecurity: No Food Insecurity (03/01/2022) Received from [facility] Hunger Vital Sign Worried About Running [...] Boone DO at 04/20/2025 2:27 PM EDT [facility] 12-03-2024 Note Patient Outreach ([facility]) PILY BARNES ([id number]) 1950 F Date Time Provider Department 12/03/24 [...] for screening mammogram for breast cancer [Z12.31] Order(s):[facility] SCREENING [facility] [[id number]] Order #: [id number] FUTURE Prescriptions as of 01/03/2025 - losartan [...] (HCC) [I77.810] 03/21/2024 (more content not included)... [facility] 09-16-2024 Note HNO ID: [id number] Author: MICHELL MATHIS MD Service: ? Author Type: Physician Type: Progress Notes Filed: 09/16/2024 15:25 Note Text: Heart[facility] V[facility] Template ID: [id number] SERVICE DATE: 09/16/2024 SERVICE TIME: 3:21 PM [...] DATE: September 16, 2024 TIME: 3:21 PM [facility] 09-16-2024 History of Present illness Narrative Heart, Vascular and Thor[facility] Template ID: [id number] SERVICE DATE: 09/16/2024 SERVICE TIME: 3:21 PM [...] TIME: 3:21 PM documented in this encounter [facility] 09-16-2024 History of Present illness Narrative [...] PATIENT PRESENTS WITH AN IMPLANTABLE OR ATTACHED MILL LABORER: No RADIOLOGY DEPARTMENT: CT; Exam(s) Completed: Cardiac PERIPHERAL IV DATA: Site assessment: Clean,Dry and Intact, Site disposition Discontinued SIGNED BY: RT Cliff(Tio) September 16, 2024 1:56 PM documented in this encounter [facility] 09-16-2024 Note HNO ID: [id number] Author: JAELYN VERA RT(R) Service: Radiology Author [...] PATIENT PRESENTS WITH AN IMPLANTABLE OR ATTACHED MILL LABORER: No RADIOLOGY DEPARTMENT: CT; Exam(s) Completed: Cardiac PERIPHERAL IV DATA: Site assessment: Clean,Dry and Intact, Site disposition Discontinued SIGNED BY: Jaelyn Vera RT(R) September 16, 2024 1:56 PM [facility] 09-16-2024 Note HNO ID: [id number] Author: DANNY PAEZ RN Service: Radiology Author [...] DATE: September 16, 2024 TIME: 1:35 PM [facility] 07-31-2024 Note HNO ID: [id number] Author: BOBBI RUCKER RN Service: ? Author [...] Health Navigation Workflow Attribution Chart Review Payer: [facility] Navigation Signature: Bobbi Rucker RN July 31, 2024 2:18 PM [facility] 07-31-2024 History of Present illness Narrative [...] Health Navigation Workflow Attribution Chart Review Payer: [facility] Navigation Signature: Bobbi Rucker RN July 31, 2024 2:18 PM documented in this encounter [facility] 07-31-2024 Note Patient Outreach ([facility]) PILY BARNES ([id number]) 1950 F Date Time Provider Department 07/31/24 BOBBI RUCKER [facility] During your visit today, we recorded [...] Health Navigation Workflow Attribution Chart Review Payer: [facility] Navigation Signature: Bobbi Rucker RN July 31, [...] Visit: Population Health Navigation Outreach [[id number]] Cmt: [facility] Attributed Member - Chart Review Prescriptions as [...] Allergic rhinitis [J30.9] more content not included)... [facility] 04-03-2024 Telephone encounter Note follow up in 6 months with CTA chest Cee Hartman RN [facility] 04-03-2024 Miscellaneous Notes follow up in 6 months with CTA chest Cee Hartman RN documented in this encounter [facility] 03-21-2024 Note HNO ID: [id number] Author: MICHELL MATHIS MD Service: ? Author Type: Physician Type: Progress Notes Filed: 03/21/2024 16:27 Note Text: [facility], V[facility] Adult Cardiac Surgery Template ID: [id number] SERVICE DATE: 03/21/2024 SERVICE TIME: 4:10 PM [...] DATE: March 21, 2024 TIME: 4:10 PM [facility] 03-21-2024 History of Present illness Narrative Heart, V[facility] Adult Cardiac Surgery Template ID: [id number] SERVICE DATE: 03/21/2024 SERVICE TIME: 4:10 PM [...] TIME: 4:10 PM documented in this encounter [facility] 03-21-2024 History of Present illness Narrative Images from the original note were not included. [facility] Department of Cardiovascular Medicine SECTION OF CARDIOVASCULAR IMAGING OUTPATIENT VISIT DATE 03/21/2024 OUTPATIENT VISIT TYPE CONSULTATION PRIMARY CARE PHYSICIAN: Ashu Ricci [address] [id number] REFERRING PHYSICIAN Michell Mathis [address] [facility] [id number] CHIEF COMPLAINT: Patient presents with: Consult TAA [...] is a 73 year old female from [place], [place] here today for cardiovascular evaluation related [...] to have a further evaluation from a china and silverware salesperson in [facility]; therefore, PCP referred patient here to have a further assessment. Patient currently herrmann not have a primary china and silverware salesperson. She reports SOB on exertion. She denies [...] Cardenas MD, FRACP, FACC, FESC, FASE Staff Electronic Engineering Technician, Section of Cardiovascular Imaging, Department of Cardiovascular Medicine, [facility], [facility] Overhead Crane Technicianseafood technology specialist, [facility], [facility] Desk [address], [address] [place] [address] Appointments: [phone], Office phone: [phone], Office fax: [phone] documented in this encounter [facility] 03-21-2024 Note HNO ID: [id number] Author: JORGE ZELAYA MD Service: ? Author Type: Physician Type: Progress Notes Filed: 03/21/2024 18:49 Note Text: [facility] Department of Cardiovascular Medicine SECTION OF CARDIOVASCULAR IMAGING OUTPATIENT VISIT DATE 03/21/2024 OUTPATIENT VISIT TYPE CONSULTATION PRIMARY CARE PHYSICIAN: Ashu Ricci [address] [place] [address] REFERRING PHYSICIAN Michell Mathis [address] [address] CHIEF COMPLAINT: Patient presents with: Consult TAA [...] is a 73 year old female from [place], [place] here today for cardiovascular evaluation related [...] to have a further evaluation from a china and silverware salesperson in [facility]; therefore, PCP referred patient here to have a further assessment. Patient currently herrmann not have a primary china and silverware salesperson. She reports SOB on exertion. She denies [...] Laterality Date [facility]COPY [facility] 11/16/2023 5 cm hiatal [...] tabletTake 2,000 Un (more content not included)... [facility] 03-04-2024 Instructions Arely Hercules PA-C - [...] If you do not have a responsible snaker tractor driver (family member or friend) with you to take you home, your exam cannot be done with sedation and will be cancelled. Please bring a list of all of your current medications, including any Cjji-ybb-Lozuddx medications with you. Medications If you take [...] exam. 2 08/2019 documented in this encounter [facility] 03-04-2024 Note HNO ID: [id number] Author: ARELY HERCULES PA-C Service: ? Author Type: Physician Fondant Cooker Type: Progress Notes Filed: 03/04/2024 15:15 Note [...] Pulmonary: Effort: Pulmonary (more content not included)... [facility] 03-04-2024 History of Present illness Narrative [...] Laterality Date COLONOSCOPY Years ago EGD W/O [facility] SPEC VARICIES INJ 11/16/2023 5 cm hiatal [...] which included preparing to see the patient, sctm-mp-frxt patient care, completing clinical documentation, obtaining and/or reviewing separately obtained history, performing a medically appropriate examination, counseling and educating the patient/family/caregiver, and ordering medications, tests, or procedures. Arely Hercules PA-C March 04, 2024 3:01 PM documented in this encounter [facility] 02-23-2024 Telephone encounter Note eval only cards, testing, Dr. Mathis *shazia please call with date I have called and discussed with Pily's son Jenise, Dr. Mathis's recommendations which are further testing and eval. She would like to come shazia. Cee Hartman RN [facility] 02-23-2024 Miscellaneous Notes eval only cards, [...] [facility] CT. Mag Harmon LOCAL PATIENT Received Routed [facility] Telephone Encounter from JANA Thompson Mauro [...] office for scheduling. Please call pt at [phone]. Patient Registration: Registration complete/updated: yes Insurance card(s) scanned in [facility] with in the past year: Yes Pt's [employer] is inactive. Ok to communicate to pt via [employer] not asked Medical Records: Records in [facility] (internal CC records): Yes Imaging in [facility] (internal CC records): Yes Care Everywhere - queried yes, downloaded Yes Linked Outside Organizations (list): [facility] Radiology Imaging Requested: yes Date: 02/21/24 Outside Hospital(s) requested imaging from: [facility]. Imaging will be received via Electronic Transfer Received: Yes Imaging uploaded: Yes via [employer] Waiting on additional: No. Missing (list): N/A Additional providers added to Care Teams: N/A Additional Notes/Comments: N/A Enct routed to: Yes, Cardiac NPM for triage Mag Harmon documented in this encounter [facility] 02-22-2024 Telephone encounter Note diagnosis: ascending aorta 4.6 cm history: diverticulitis, bipolar, HTN, TATI, SAH blood thinners: none [facility] 02-21-2024 Telephone encounter Note Email sent to Raquel in file room at [facility], requesting image of CT. Mag Harmon [facility] 02-21-2024 Telephone encounter Note IN [facility] Work Phone: 02-21-2024 Miscellaneous Notes IN Insurance Card(s) scanned into [employer] Please register/advise Thank You! documented in this encounter [facility] 02-21-2024 Telephone encounter Note Insurance Card(s) scanned into [employer] Please register/advise Thank You! [facility] 02-21-2024 Telephone encounter Note LOCAL PATIENT Received Routed [facility] Telephone Encounter from Ashu Ricci NP [...] office for scheduling. Please call pt at [phone]. Patient Registration: Registration complete/updated: yes Insurance card(s) scanned in [facility] with in the past year: Yes Pt's [employer] is inactive. Ok to communicate to pt via [employer] not asked Medical Records: Records in [facility] (internal CC records): Yes Imaging in [facility] (internal CC records): Yes Care Everywhere - queried yes, downloaded Yes Linked Outside Organizations (list): [employer] [facility] Radiology Imaging Requested: yes Date: 02/21/24 Outside Hospital(s) requested imaging from: [employer]. Imaging will be received via Electronic Transfer Received: Yes Imaging uploaded: Yes via [employer] Waiting on additional: No. Missing (list): N/A Additional providers added to Care Teams: N/A Additional Notes/Comments: N/A Enct routed to: Yes, Cardiac NPM for triage Mag Harmon [facility] 02-19-2024 Telephone encounter Note RECEIVED CALL FROM: Lorena Montana/ ref. PATIENT INFORMATION: Name: Pily Barnes : 1950 (home) [phone] (cell) Email: [email or web address] Referring Provider: No referring provider defined for this encounter. Phone: N/A Fax: Requested Surgeon: First Available/Unspecified Reason for appointment/diagnosis: Aneurysm of Ascending Aorta 4.6cm, without rupture Monika Cano February 19, 2024 4:07 PM [facility] 02-19-2024 Miscellaneous Notes RECEIVED CALL FROM: Lorena Montana/ ref. PATIENT INFORMATION: Name: Pily Barnes : 1950 (home) [phone] (cell) Email: [email or web address] Referring Provider: No referring provider defined for this encounter. Phone: N/A Fax: Requested Surgeon: First Available/Unspecified Reason for appointment/diagnosis: Aneurysm of Ascending Aorta 4.6cm, without rupture Monika Cano February 19, 2024 4:07 PM documented in this encounter [facility] 12-17-2023 Emergency department Note This RN attempt to give report to nursing facility. Busy signal noted x3 attempts. laborer construction or leak gang notified. Ela Hensley RN 12/17/231816 [facility] 12-17-2023 Emergency department Note This RN attempt to give report to nursing facility. Busy signal noted x3 attempts. laborer construction or leak gang notified. Ela Hensley RN 12/17/231816 Patient aware [...] 1 tablet by mouth daily. NYSTATIN (MYCOSTATIN) [id number] UNIT/GM POWDER Apply 1 Application topically 2 [...] Culture. Procedure Abnormality Status --------- ------ Complete Urinalysis[[id number]] Abnormal Final result Please view results for [...] IMPRESSION No diagnosis found. DISPOSITION Transfer To [facility] 12/17/2023 03:19:15 PM PATIENT REFERRED TO: No [...] Patient to the ED today from the [facility] via EMS for c/o rectal bleeding that started last night following her return to the facility from the [facility] ED. Patient reports that the abdominal pain [...] s/s of distress. documented in this encounter [facility] 12-17-2023 Hospital Discharge instructions Rowena Cano [...] attachments cannot be sent through Care Everywhere.Diverticulitis (Mauritanian)Diverticulitis Discharge Instructions (Mauritanian)documented in this encounter [facility] 12-17-2023 Emergency department Note Patient aware a urine specimen is needed. Educated to advise staff when urge to urinate to transfer to restroom. Call light left in patient reach. Ela Hensley RN 12/17/23 2338 [facility] 12-17-2023 Emergency department Triage note Patient to the ED today from the [facility] [place] via EMS for c/o rectal bleeding that started last night following her return to the facility from the [facility] ED. Patient reports that the abdominal pain [...] everything". Patient shows no s/s of distress. [facility] 12-17-2023 Physician Emergency department Note EMERGENCY [...] 1 tablet by mouth daily. NYSTATIN (MYCOSTATIN) 316890 UNIT/GM POWDER Apply 1 Application topically 2 [...] Culture. Procedure Abnormality Status --------- ------ Complete Urinalysis[[id number]] Abnormal Final result Please view results for [...] IMPRESSION No diagnosis found. DISPOSITION Transfer To [facility] 12/17/2023 03:19:15 PM PATIENT REFERRED TO: No [...] Medicine Provider Albert Lara DO 12/17/23 1549 [facility] Work Phone: 12-16-2023 Emergency department Note Patient transferred to EMS by EMS personnel. Patient maintained steady gait with assistance of medic. Transport exit at this time. Ela Hensley RN 12/16/232236 [facility] 12-16-2023 Emergency department Note Patient transferred to EMS by EMS personnel. Patient maintained steady gait with assistance of medic. Transport exit at this time. Ela Hensley RN 12/16/232236 Report given to [facility] at this time by this [...] awaiting transfer back to assisted living at [facility] Bobbi Dunham RN 12/16/232052 Pt cleared for [...] of this encounter. History provided by: Patient ceramic restorer used: No Pily Barnes is a 73 [...] long-term use history Asthma Bipolar 1 disorder ([facility]) Chronic kidney disease Depression Difficulty walking High blood pressure Lack of coordination Mitral valve insufficiency Muscle weakness Presence of intraocular lens Repeated falls Rhabdomyolysis Sleep apnea Suicidal ideations Traumatic subarachnoid hemorrhage without loss of consciousness ([facility]) SURGICAL HISTORY Past Surgical History: Procedure Laterality [...] 1 tablet by mouth daily. NYSTATIN (MYCOSTATIN) 293495 UNIT/GM POWDER Apply 1 Application topically 2 [...] In compliance with this authorization, please visit www.fda.gov/media/637654/download or www.fda.gov/media/289089/download to access the applicable information sheets. LIPASE [...] Culture. Procedure Abnormality Status --------- ------ Complete Urinalysis[[id number]] Abnormal Final result Please view results for [...] PM PATIENT REFERRED TO: Kenia Mckenzie MD [address] [facility] [address] Schedule an appointment as soon as [...] TIFFANIE Parry CNP 12/16/232149 Emergency Department Encounter [facility] ED Patient: Pily Barnes : 1950 Date of Evaluation: 12/16/2023 ED Supervising Physician: Artur Boone MD I independently examined and evaluated Pily Barnes. This will serve as my Supervisory note as the anatomy professor of record and shared attestation. I did [...] dictating provider for clarification.) Artur Boone MD [employer] [facility] Artur Boone MD 12/16/231944 documented in this encounter [facility] 12-16-2023 Emergency department Note Report given to [facility] EMS at this time by this RN. Ela Hensley RN 12/16/232232 [facility] 12-16-2023 Emergency department Note Pt updated on new ETA, ETA 30min. Pt sitting in WC, no apparent distress. WC locked, curtain open, call light in pt lap, pt watching TV Bobbi Dunham RN 12/16/232132 [facility] 12-16-2023 Emergency department Note Pt taken to restroom via WC. Pt assisted in putting a new brief on. Once back in room, pt assisted in getting dressed. Pt sitting in WC, wheel chair locked, call light in reach, curtain open. Dc paperwork reviewed. No further questions. Pt awaiting transfer back to assisted living at [facility] Bobbi Dunham RN 12/16/232052 [facility] 12-16-2023 Emergency department Note Pt cleared for DC per provider Bobbi Dunham RN 12/16/231935 [facility] 12-16-2023 Emergency department Note Answered pt [...] in reach Bobbi Dunham RN 12/16/23 1938 [facility] 12-16-2023 Emergency department Note Pt reports she is feeling better. Not nauseated. Pt ate dinner and has kept in down Bobbi Dunham RN 12/16/231920 [facility] 12-16-2023 Hospital Discharge instructions TIFFANIE Parry CNP - 12/16/2023 7:09 PM EDT Please pick your nausea medication from the pharmacy and take as instructed. Please make appointment to follow-up with your PCP in 2 days. The following attachments cannot be sent through Care Everywhere.Acute Kidney Injury (Mauritanian)Nausea and Vomiting, Adult (Mauritanian)documented in this encounter [facility] 12-16-2023 Emergency department Note Ordered patient a dinner tray. Will complete PO challenge with it. Eloisa Prasad RN 12/16/234 [facility] 12-16-2023 Emergency department Note Pt from nursing facility presents with EMS with abd pain n/v/ diarrhea started today. Pt states also feeling dizzy and light headed. Pain in abd is constant Tere Pritchard RN 12/16/23 1454 [facility] 12-16-2023 Physician Emergency department Note EMERGENCY [...] of this encounter. History provided by: Patient ceramic restorer used: Delmi Pily Barnes is a 73 [...] 1 tablet by mouth daily. NYSTATIN (MYCOSTATIN) 985398 UNIT/GM POWDER Apply 1 Application topically 2 [...] In compliance with this authorization, please visit www.fda.gov/media/579900/download or www.fda.gov/media/810549/download to access the applicable information sheets. LIPASE [...] Culture. Procedure Abnormality Status --------- ------ Complete Urinalysis[[id number]] Abnormal Final result Please view results for [...] PM PATIENT REFERRED TO: Kenia Mckenzie MD [address] [facility] [id number] Schedule an appointment as soon as possible [...] Emergency Medicine Provider TIFFANIE Parry CNP 12/16/23 9660 [facility] 12-16-2023 Physician Emergency department Note Emergency Department Encounter [facility] ED Patient: Pily Barnes : 1950 Date of Evaluation: 12/16/2023 ED Supervising Physician: Artur Boone MD I independently examined and evaluated Pily Barnes. This will serve as my Supervisory note as the anatomy professor of record and shared attestation. I did [...] dictating provider for clarification.) Artur Boone MD [facility] Artur Boone MD 12/16/231944 [employer] Phone: 11-21-2023 Miscellaneous Notes Unable to reach son phone sent me to . Letter sent. LVMTCB LVMTCB for EGD biopsy results documented in this encounter [facility] 11-14-2023 History and physical note HISTORY [...] [place], [place] No history of angina, CHF, ME, cardiac surgery or stents. 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 Author Type: Physician Fondant Cooker Type: Progress Notes Filed: 10/03/2023 15:47 Note Text: CHIEF COMPLAINT: Patient presents with: Dysphagia : Choking with food. Had a barium swallow This consult was requested by Self for an opinion regarding dysphagia. My final recommendations will be communicated to the requesting health care provider by way of the shared medical record for internal providers or letter via the [employer] for external providers. HPI: Pily [...] Physical Exam Cons (more content not included)... [facility] 07-05-2023 History of Present illness Narrative [...] daily. 09/27/22 Yes Historical Provider, nystatin (Mycostatin) 604367 UNIT/GM powder Apply 1 Application topically 2 [...] Right achilles: 2+ Left achilles: 2+ Right religious ritual slaughterer: 2+ Left religious ritual slaughterer: 2+ Results Labs: Last 24hrs No results [...] Cervical myelopathy (HCC) documented in this encounter [facility] 05-25-2023 Hospital Discharge instructions Humberto Ghosh, [...] through Care Everywhere.Cellulitis (Skin Infection), Adult ED (Mauritanian)Allergic Reaction ED (Mauritanian)documented in this encounter [facility] 05-25-2023 Emergency department Note Emergency Department Encounter [facility] ED Patient: Pily Barnes : 1950 Date of Evaluation: 05/25/2023 ED Provider: Humberto Ghosh DO Chief Complaint Chief Complaint Patient presents with Skin Problem Redness to left upper arm NEZ PERCE Pily Barnes is a 72 y.o. female [...] daily., Starting Mon09/27/2022, Historical Med nystatin (Mycostatin) 233151 UNIT/GM powder Apply 1 Application topically 2 [...] 500 mg (500 mg Oral Given 05/25/23 5068) Patients symptoms are consistent with sepsis, severe [...] left upper arm redness. Pt is from [facility]. Yesterday she was given both [...] no distress noted. documented in this encounter [facility] 05-25-2023 Emergency department Triage note Pt to ED3 via wheelchair with son with c/o left upper arm redness. Pt is from [facility]. Yesterday she was given both [...] skin warm and dry, no distress noted. [facility] 05-25-2023 Physician Emergency department Note Emergency Department Encounter [facility] ED Patient: Pily Barnes : 1950 Date of Evaluation: 05/25/2023 ED Provider: Humberto Ghosh DO Chief Complaint Chief Complaint Patient presents with Skin Problem Redness to left upper arm NEZ PERCE Pily Barnes is a 72 y.o. female [...] daily., Starting Mon09/27/2022, Historical Med nystatin (Mycostatin) 747474 UNIT/GM powder Apply 1 Application topically 2 [...] 500 mg (500 mg Oral Given 05/25/23 6875) Patients symptoms are consistent with sepsis, severe [...] for clarification. Humberto Ghosh DO Acute Care [facility] Humberto Ghosh DO 05/26/23 0252 [facility] 05-12-2023 Telephone encounter Note Patients mary jane Wellington called in with concerns about Pily And some swallowing issues Please cb [phone] [facility] 05-12-2023 Miscellaneous Notes Patients mary jane Wellington called in with concerns about Pily And some swallowing issues Please [phone] documented in this encounter [facility] 03-10-2023 Nurse Note Report given to facility nurse. IV taken out, dressing intact; no complications. 1406 AVS, eMAR report provided to transport staff. [facility] 03-10-2023 Nurse Note Report given to facility nurse. IV taken out, dressing intact; no complications. 1406 AVS, eMAR report provided to transport staff. documented in this encounter [facility] 03-10-2023 Note Formatting of this n ote might be different from the original. Transport arranged for 1330 today to transfer pt to [place]. RN, US, TCC, pt and [place] notified. [facility] 03-10-2023 Note Formatting of this n ote might be different from the original. Transport arranged for 1330 today to transfer pt to [place]. RN, US, TCC, pt and [place] notified. [facility] 03-10-2023 Miscellaneous Notes Transport arranged for 1330 today to transfer pt to [place]. RN, US, TCC, pt and [place] notified. [facility] reviewed careport status of auth- still pending with [facility]. Will follow and assist with DC and transportation. Discharge med list and MAR information transmitted to SNF - [place] via Careport per TCC request. 7000 completed in HENS. Patient Choice Patient Name: PILY BARNES Date of : 1950 All Providers Sent Referral Name: [facility] Phone: [phone] Address: [address] [place] [address] Name: [employer] Address: [address] [place] [address] Rec'd careport message that pts SNF [facility] [place] is able to accept. Task sent to [facility] hydroelectric powerplant supervisor, Melissa Lowe requesting precert with [facility] Medicare today. Awaiting insurance determination. Referral placed to [facility] [place] L[employer]onald via Careport per TCC request. Await review and response regarding ability to accept. TCC notified. Images from the original note were not included. Care Management Progress Note TCC met w/pt to discuss DCP after P2P denial upheld. Pt requested SNF referral to [facility]. Task sent to [facility] for above referrals. PT eval current 03/08- [...] 3:10 PM 03/04/2023 Cee Biggs APRN - BOOKING OFFICER 03/02/2023 1:22 PM 03/04/2023 Cee Biggs APRN - BOOKING OFFICER 03/02/2023 9:02 AM Length of Stay (Days): [...] RN Outcome: Progressing Received secure chat from [facility] Insurance is requesting P2P for Cameron by 11:30 am March 08. [phone] option 5. Ref# [id number]. Need member ID, name, Ranjeet Fariarefugio MORENO BOOKING OFFICER was on secure chat, responded she will do tomorrow. . SW cotton stripper: Received secure chat, from RN asking if auth back for [facility]. Called Amy [facility] material liaison. Amy indicated auth is not back, [...] Progressing Discharge med list information transmitted to [facility] per TCC request. Still awaiting insurance auth, discharge order noted in Epic. Will need auth prior to discharge. [facility] tasked to send 24 hour Mar and DC paperwork. [facility] updated notes this AM and requested information was sent over. Images from the original note were not included. Care Management Progress Note Pt remains on H6, PT OT rec IPR. Insurance auth pending for [facility]. On Ivf and Na 132, Neuro following. Will anticipate discharge to [facility] once auth is obtained, TCC to assist [...] Length of Stay (Days): 4 GMLOS: 2.6 [facility] precert pending for [facility]. Problem: Pain - Adult Goal: Verbalizes/displays adequate [...] CONTROL Referral placed to [facility] via [facility] per TCC request. Await review and [...] [facility]. Liaison Marixa made aware. Will ask [employer] to send referral via careport. Pt awaiting OT eval so precert can be started. Care Managment Initial Assessment Date: 03/03/2023 Patient Name: Pily Barnes : 1950 Patient Information Source of Information: Patient Cognition/Language: WFL - Within Functional Limits Permission given to speak with patient exhibit display representative/caregiver as indicated: Confirmation of Payer with patient/family: Yes Payer Name: UHC Medicare Garrett: No Confirmation of Primary Care Physician: Confirmed PCP Name: Dr. Keina Mckenzie Seen in last 2 years?: Yes [...] Daily Living Prescription Coverage: Yes Pharmacy Used: [place] Medication Management: Transportation/Shopping: Assistance Provider Transportation/Shopping Assistance Provider Name: family Transportation Mode: Needs Assistance with Transportation at Discharge: Yes Meal Preparation: Assistance Provider Laundry/Cleaning: Assistance Provider Finances/Bill Paying: Assistance Provider Communication: Independent Types of Care Services/Equipment Utilized Care Services: Dialysis Type: Durable Medical Equipment: Walker, Wheelchair (standard or power) Patient's Goal/Discharge Plan Patient expects to be discharged to: return to [place] with possible home care Discharge Planning Actions: [...] explained role of tcc. Pt lives at [facility] in [place]. She states she does need assistance with adls and uses walker and w/c at facility. Await PT/OT recommendations and will call facility to verify that she will be able to return at discharge. Mag Middleton RN Piano Assembler following case for Discharge Needs. Patient family/visitor updated by RN at this time. OPERATIVE NOTE Patient Name: Pily Barnes : 1950 DATE OF PROCEDURE: 03/02/2023 SURGEON: Alonso Mcgill MD TUBE HANDLER: Cee Biggs CNP PREOPERATIVE DIAGNOSES: Cervical stenosis, [...] portion of C6. Retractors put in place. Rippey pins placed in C3-C4-C5 and C6 gentle [...] Following this an anterior cervical plate by [employer] was placed with 15 mm screws. C-arm shot was taken to confirm screws were in bone. After this the wound was doe irrigated out retractors removed the wound allowed to sit for several minutes to confirm there is good hemostasis. Then a 10 Malian round POLO drain was placed, and the [...] to be performed safely. 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 Bone BONE BMP PUTTY I-FACTOR 2.5CC - [id number] Implanted Bone GRAFT DBM PUTTY BIO 2.5CC VIAL - [id number] Implanted Spinal Hardware CAGE SPINAL [place] 6DEG 7MM - [id number] Implanted Spinal Hardware CAGE SPINAL [place] 6DEG 7MM - [id number] Implanted Spinal Hardware CAGE SPINAL [place] 6DEG 7MM - [id number] Implanted Plate 48MM PLATE Implanted Spinal Hardware SCREW BN VAS SD 3.5X15 - [id number] Implanted Staff: Test Evaluator: Cee Cisneros RN Nurse Practitioner: Cee Biggs APRN - BOOKING OFFICER Relief Test Evaluator: Randi Zavala RN Relief Scrub: Helga Matos [...] Vancomycin or flouroquinolone) documented in this encounter [facility] 03-10-2023 History of Present illness Narrative [...] A&O x3 VÁZQUEZ BUE strength 4+/5, emiliana religious ritual slaughterer 5/5 Sensation intact Dressing C/D/I with steri strips ASSESSMENT AND PLAN 72 y.o. female status post C3-6 ACDF post op day # 8 Pt progressing as expected Continue with PT/OT, encourage ambulation DC to SNF today, covid test pending Discharge instructions given Follow up with Dr Mcgill Physical Therapy Facility/Department: [facility] Physical Therapy Daily Treatment Note NAME: Pily Barnes : 1950 Date of Service: 03/09/2023 Discharge Recommendations: Group Home Facility PT Equipment Recommendations Equipment Needed: No [...] increased time, delayed responses General Comment Comments: PUMP SERVICER HELPER continues to note Parkinsonian gait pattern w/ [...] Occupational Therapy Facility/Department: Occupational Therapy Treatment NAME: Piyl Barnes : 1950 Date of Service: 03/09/2023 Discharge Recommendations: Group Home Facility Assessment Assessment: Progressing toward goals. Unsteady gait, needs assist for ADLs. Would benefit from SNF level therapies at discharge. Restrictions Irvine collar when up and active Subjective Subjective Subjective: Pt in chair, agrees to OT as requested for insurance pre-cert. No c/o pain. Patient Stated Goal: none stated Objective Grooming/Oral Hygiene Assistance Level: Contact guard assist Skilled Clinical Factors: wash hands at sink UE Dressing Assistance Level: Moderate assistance Skilled Clinical Factors: don Irvine collar; pt able to manipulate velcro but [...] A&O x3 VÁZQUEZ BUE strength 4+/5, emiliana religious ritual slaughterer 5/5 Sensation intact Dressing C/D/I with steri strips ASSESSMENT AND PLAN 72 y.o. female status post C3-6 ACDF post op day # 7 Pt progressing as expected Continue with PT/OT, encourage ambulation Pt ready for DC when authorized for SNF, hopefully later today Nutrition update completed. Chart reviewed. Patient to be monitored and followed by the diet systems protection technician. Images from the original note were not included. Hospitalist Progress Note 03/09/[id number]: Please secure chat me for patient care issues. [phone]: Please secure chat [facility] Hospitalist for any issues. Subjective: Admit Date: 03/02/2023 PCP: KENIA MCKENZIE MD Room#: [id number] A Interval History: Patient was admitted for elective surgery s/p C3-C6 ACDF. We are consulted for med management Patient was seen and examined this AM. No new complaints or acute overnight events. Denied [facility], pending SNF placement Adult diet Regular @[id number]@ 24HR INTAKE/OUTPUT: Intake/Output Summary (Last 24 hours) [...] Traumatic subarachnoid hemorrhage without loss of consciousness ([facility]) LABS: CBC: Recent Labs 03/09/23 0515 WBC [...] Darion Yadav MD Division of Hospitalist Medicine [employer] [facility] PAGER: Epic chat Physical Therapy Facility/Department: [facility] Physical Therapy Daily Treatment Note NAME: Pily Barnes : 1950 Date of Service: 03/08/2023 Discharge Recommendations: Group Home Facility PT Equipment Recommendations Equipment Needed: No [...] increased time, delayed responses General Comment Comments: PUMP SERVICER HELPER continues to note Parkinsonian gait pattern w/ [...] Treatment Minutes: 28 Minutes (GT x 2) PUMP SERVICER HELPER wore PPE in compliance with hospital guidelines and regulation when treating this patient. Lillie Nelson PUMP SERVICER HELPER Department of Neurosurgery Progress Note SUBJECTIVE: no [...] A&O x3 VÁZQUEZ BUE strength 4+/5, emiliana religious ritual slaughterer 5/5 Sensation intact Dressing C/D/I with steri [...] [facility], pending SNF placement Adult diet Regular @[id number]@ 24HR INTAKE/OUTPUT: No intake or output data [...] 03/08/2023 Division of Hospitalist Medicine Inpatient Medical Services/[facility] P[facility]ER: [phone] Peer to peer completed with Dr. Briceno and acute rehab was denied. Insurance recommends SNF. TIFFANIE PARSONS CNP Attempted peer to peer. Physician not available at this time. They are to call me back at there convenience. TIFFANIE PARSONS CNP Images from the original note were not included. Hospitalist Progress Note Subjective: Admit Date: 03/02/2023 PCP: KENIA MCKENZIE MD Room#: [id number] A Patient was seen and examined this AM. She is awake, alert and oriented. Sitting up in a chair at bedside. No new complaints or acute overnight events. Auth still pending as of this am -Noted High BP this am, received 5mg Norvasc and 20 mg of lisinopril. Ordered as needed hydralazine. Repeat BP in the 140s. Adult diet Regular @[id number]@ 24HR INTAKE/OUTPUT: Intake/Output Summary (Last 24 hours) [...] 03/07/2023 Division of Hospitalist Medicine Inpatient Medical Services/[facility] P[facility]ER: [phone] Physical Therapy Facility/Department: Physical Therapy Daily Treatment Note NAME: Pily Barnes : 1950 Date of Service: 03/07/2023 Discharge Recommendations: Group Home Facility PT Equipment Recommendations Equipment Needed: No [...] posterior fit. Recommend SNF after discharge from [facility]. Performance Deficits/Impairments: Decreased functional mobility , Decreased [...] A&O x3 VÁZQUEZ BUE strength 4+/5, emiliana religious ritual slaughterer 5/5 Sensation intact Dressing C/D/I with steri [...] 1950 Date of Service: 03/06/2023 Discharge Recommendations: Group Home Facility PT Equipment Recommendations Equipment Needed: No [...] increased time, delayed responses General Comment Comments: PUMP SERVICER HELPER noted Parkinsonian gait pattern w/ intermittent festinations; no resting tremors noted Subjective Subjective: Pt in chair, agreeable to PT. nsg cleared pt for PT. Patient Stated Goal: Pt wishes to receive more therapy upon discharge, unsure of facility ability to provide assistance for brace management Pain Assessment Pain Assessment: No/denies pain (Pt had no c/o pain during PT Rx) Cognition/Orientation Overall Cognitive Status: [facility] Cognition Comment: Alert, appropriate responses. Following [...] able to sit edge of chair w/ PUMP SERVICER HELPER assist w/ delbert/doff C-collar x3 rep. Exercises [...] Date: 03/02/2023 PCP: KENIA MCKENZIE MD Room#: [id number] A Patient was seen and examined this AM. She is awake, alert and oriented. Sitting up in a chair at bedside. No new complaints or acute overnight events. Pending authorization. Adult diet Regular @[id number]@ 24HR INTAKE/OUTPUT: No intake or output data [...] 03/06/2023 Division of Hospitalist Medicine Inpatient Medical Services/[facility]: [phone] Department of Neurosurgery Progress Note SUBJECTIVE: doing [...] A&O x3 VÁZQUEZ BUE strength 4+/5, emiliana religious ritual slaughterer 5/5 Sensation intact Dressing C/D/I with steri [...] Date: 03/02/2023 PCP: KENIA MCKENZIE MD Room#: [id number] A Interval History: no new complaints, no acute issues overnt. Eating and drinking ok. Adult diet Regular @[id number]@ 24HR INTAKE/OUTPUT: Intake/Output Summary (Last 24 hours) [...] 03/05/2023 Division of Hospitalist Medicine Inpatient Medical Services/[facility]: [phone] Department of Neurosurgery Progress Note SUBJECTIVE: Patient [...] A&O x3 VÁZQUEZ BUE strength 4+/5, emiliana religious ritual slaughterer 5/5 Sensation intact No significant issues swallowing [...] 1950 Date of Service: 03/05/2023 Discharge Recommendations: Group Home Facility PT Equipment Recommendations Equipment Needed: No [...] to complete. Recommend SNF at discharge from [facility]. Performance Deficits/Impairments: Decreased functional mobility , Decreased [...] be monitored and followed by the diet systems protection technician. Images from the original note were not included. Hospitalist Progress Note Subjective: Admit Date: 03/02/2023 PCP: KENIA MCKENZIE MD Room#: [id number] A Interval History: pt sitting on the bed, cervical collar removed. Reports pain in her neck at the site of surgery and tingling in her R hand fingers, same as yesterday but improved from before, No other complaints, no acute issues overnt. Adult diet Regular @[id number]@ 24HR INTAKE/OUTPUT: Intake/Output Summary (Last 24 hours) [...] 03/04/2023 Division of Hospitalist Medicine Inpatient Medical Services/[facility]: [phone] Department of Neurosurgery Progress Note SUBJECTIVE: Patient [...] A&O x3 VÁZQUEZ BUE strength 4+/5, emiliana religious ritual slaughterer 5/5 Sensation intact No issues swallowing Dressing [...] 1950 Date of Service: 03/03/2023 Discharge Recommendations: Group Home Facility Assessment REQUIRES OT FOLLOW-UP: Yes Performance [...] s/p surgery. Patient Stated Goal: Return to NURSING HOME when able. Social/Functional History Social/Functional History Lives [...] Standing Balance Activity: Dynamic standing task at [facility]- marching LEs in place. Easily fatigued tolerating [...] Expected End: 03/31/23 Therapeutic Exercise Demo 4 [facility] exercises 10 x 1 set min cues [...] Plan of Care supervision is transferred to [facility] Occupational Therapist. Goals and/or treatment plan was established in collaboration with patient/family/other representatives. Audelia Demarco OTR/L Images from the original note were not included. Hospitalist Progress Note Subjective: Admit Date: 03/02/2023 PCP: KENIA MCKENZIE MD Room#: -[id number] A Interval History: pt sitting on the bed, cervical collar in place. Reports pain in her neck at the site of surgery and tingling in her R hand fingers, improved from before. No other complaints, no acute issues overnt. Adult diet Regular @[id number]@ 24HR INTAKE/OUTPUT: Intake/Output Summary (Last 24 hours) [...] Traumatic subarachnoid hemorrhage without loss of consciousness ([facility]) LABS: CBC: Recent Labs 03/03/23133 WBC 6.7 [...] 03/03/2023 Division of Hospitalist Medicine Inpatient Medical Services/[facility]: [phone] Department of Neurosurgery Progress Note SUBJECTIVE: no acute events overnight. Pt complains of emiliana hand tingling. Drain intact with bulb at shoulder level. OBJECTIVE Physical BP 119/70 Pulse 74 Temp 36.6 C (97.8 F) (Temporal) Resp 18 Ht 5' (1.524 m) Wt 160 lb (72.6 kg) SpO2 94% BMI 31.25 kg/m NEUROLOGIC: A&O x3 VÁZQUEZ BUE strength 4+/5, emiliana religious ritual slaughterer 5/5 Sensation intact No issues swallowing Dressing [...] 1950 Date of Service: 03/03/2023 Discharge Recommendations: Group Home Facility (home-going pt requires home health PT.) PT Equipment Recommendations Equipment Needed: No Assessment Requires PT Follow-Up: Yes Assessment: Pt admitted to [facility] with cervical stenosis of spinal canal, pt [...] assistance for getting out of bed) Active Measurement Analyst: No Occupation: Retired Objective Observation/Palpation Observation: POLO [...] Plan of Care supervision is transferred to [facility] Department Physical Therapist. Goals and/or treatment plan was established in collaboration with patient/family/other representatives. Rosey Mckeon, SPT documented in this encounter [facility] 03-10-2023 Note Formatting of this n ote might be different from the original. TCC reviewed careport status of auth- still pending with [facility]. Will follow and assist with DC and transportation. [facility] 03-10-2023 Note Formatting of this n ote might be different from the original. TCC reviewed careport status of auth- still pending with [facility]. Will follow and assist with DC and transportation. [facility] 03-09-2023 Note Formatting of this n ote might be different from the original. Discharge med list and MAR information transmitted to [facility] via Careport per TCC request. 7000 completed in HENS. [facility] 03-09-2023 Note Formatting of this n ote might be different from the original. Discharge med list and MAR information transmitted to [facility] [place] via Careport per TCC request. 7000 completed in HENS. [facility] 03-09-2023 Note Formatting of this n ote might be different from the original. Patient Choice Patient Name: PILY BARNES Date of : 1950 All Providers Sent Referral Name: [facility] Phone: [phone] Address: [address] [place] [address] Name: Lc [employer] Address: [address] [place] [id number] T [facility] 03-09-2023 Note Formatting of this n ote might be different from the original. Patient Choice Patient Name: PILY BARNES Date of : 1950 All Providers Sent Referral Name: [facility] Phone: [phone] Address: [address] [place] [address] [place] [address] Name: [employer] Address: [address] [place] [address] [facility] 03-09-2023 Hospital course Narrative Discharge Summary [...] PACU in stable condition and then to [facility]. They received 24 hours of prophylactic IV [...] MG tablet Loratadine 10 MG capsule nystatin 012112 UNIT/GM powder Commonly known as: Mycostatin ondansetron [...] Your Medications These medications were sent to [facility] [address] [place], [place] [address] [address] Hours: Monday to Monday 10 am to 6 pm naloxone 4 mg/0.1 mL nasal spray DIET: Adult diet Regular ACTIVITY: No heavy lifting. COMPLEXITY OF FOLLOW UP: [] Moderate Complexity: follow up within 7-14 calendar days (64475) [] Severe Complexity: follow up within 7 calendar days (22850) FOLLOW UP TESTING, PENDING RESULTS OR REFERRALS AT TRANSITIONAL CARE VISIT: [] Yes [] No PENDING STUDIES: Covid antigen DISPOSITION: Skilled Facility FACILITY/HOME CARE AGENCY NAME: [facility] Follow up with Alonso Mcgill MD [address] [facility] [id number] Follow up 03/13/2023 at 9:30 AM INSTRUCTIONS [...] 03/10/2023, 10:06 AM documented in this encounter [facility] 03-09-2023 Note Formatting of this n ote might be different from the original. Rec'd careport message that pts SNF [facility] [place] is able to accept. Task sent to [facility] hydroelectric powerplant supervisor, Melissa Lowe requesting precert with [employer] Medicare today. Awaiting insurance determination. [facility] [email or web address] 03-09-2023 Note Formatting of this n ote might be different from the original. Rec'd careport message that pts SNF [facility] [place] is able to accept. Task sent to [facility] hydroelectric powerplant supervisor, Melissa Lowe requesting precert with [facility] Medicare today. Awaiting insurance determination. T [facility] 03-09-2023 Note Formatting of this n ote might be different from the original. Referral placed to SNF- [place] [facility] via Careport per TCC request. Await review and response regarding ability to accept. TCC notified. T [facility] 03-09-2023 Note Formatting of this n ote might be different from the original. Referral placed to [facility]- [place] [facility] via Careport per TCC request. Await review and response regarding ability to accept. TCC notified. T [facility] 03-09-2023 Note Formatting of this n ote is different from the original. Images from the original note were not included. Care Management Progress Note TCC met w/pt to discuss DCP after P2P denial upheld. Pt requested SNF referral to [place] [facility]. Task sent to [facility] for above referrals. PT eval current 03/08- [...] Length of Stay (Days): 7 GMLOS: 2.6 [facility] 03-09-2023 Note Formatting of this n ote is different from the original. Images from the original note were not included. Care Management Progress Note TCC met w/pt to discuss DCP after P2P denial upheld. Pt requested SNF referral to [place] [facility] and [facility]. Task sent to [facility] for above referrals. PT eval current 03/08- [...] RN 03/03/2023 7:35 AM 03/04/2023 Cee Biggs, GENERAL ADMINISTRATOR - BOOKING OFFICER 03/02/2023 3:10 PM 03/04/2023 Cee Biggs GENERAL ADMINISTRATOR - BOOKING OFFICER 03/02/2023 1:22 PM 03/04/2023 Cee Biggs, GENERAL ADMINISTRATOR - BOOKING OFFICER 03/02/2023 9:02 AM Length of Stay (Days): 7 GMLOS: 2.6 [facility] 03-08-2023 Note Formatting of this n ote is different from the original. Images from the original note were not included. Care Management Progress Note P2P denied for [facility]. SNF list given to pt with explanation of 5 star rating and [facility] Collaboration. Pt would like to discuss with [...] JOSELYN 03/03/2023 7:35 AM 03/04/2023 Cee Biggs, GENERAL ADMINISTRATOR - BOOKING OFFICER 03/02/2023 3:10 PM 03/04/2023 Cee Biggs GENERAL ADMINISTRATOR - BOOKING OFFICER 03/02/2023 1:22 PM 03/04/2023 Cee Biggs, GENERAL ADMINISTRATOR - BOOKING OFFICER 03/02/2023 9:02 AM Length of Stay (Days): 6 GMLOS: 2.6 [facility] 03-08-2023 Note Formatting of this n ote is different from the original. Images from the original note were not included. Care Management Progress Note P2P denied for [facility]. SNF list given to pt with explanation of 5 star rating and [facility] Collaboration. Pt would like to discuss with [...] JOSELYN 03/03/2023 7:35 AM 03/04/2023 Cee Biggs, GENERAL ADMINISTRATOR - BOOKING OFFICER 03/02/2023 3:10 PM 03/04/2023 Cee Biggs GENERAL ADMINISTRATOR - BOOKING OFFICER 03/02/2023 1:22 PM 03/04/2023 Cee Biggs APRN - BOOKING OFFICER 03/02/2023 9:02 AM Length of Stay (Days): 6 GMLOS: 2.6 T [facility] 03-08-2023 Plan of care note Problem: [...] 03/08/2023929 by Meagan Jurado RN Outcome: Progressing [facility] 03-07-2023 Note Formatting of this n ote might be different from the original. Received secure chat from [facility] is requesting P2P for Cameron by 11:30 am March 08. [phone] option 5. Ref# [id number]. Need member ID, name, [place] Priest APRN BOOKING OFFICER was on secure chat, responded she will do tomorrow. . [facility] 03-07-2023 Note Formatting of this n ote might be different from the original. Received secure chat from [facility] is requesting P2P for Cameron by 11:30 am March 08. [phone] option 5. Ref# [id number]. Need member ID, name, [place] Priest APRN, CNP was on secure chat, responded she will do tomorrow. . [facility] 03-07-2023 Note Formatting of this n ote might be different from the original. SW cotton stripper: Received secure chat, from RN asking if auth back [facility] [place] indicated auth is not back, anticipate tomorrow. Sent message back to RN, no auth yet, looking at tomorrow as insurance closed for holiday today.. . [facility] 03-07-2023 Note Formatting of this n ote might be different from the original. SW cotton stripper: Received secure chat, from RN asking if auth back for [facility]. Called Amy [facility] material liaison. Amy indicated auth is not back, anticipate tomorrow. Sent message back to RN, no auth yet, looking at tomorrow as insurance closed for holiday today.. . T [facility] 03-07-2023 Plan of care note Problem: [...] therapy and ambulation around the room TID. [facility] 03-06-2023 Plan of care note Problem: [...] healing without S/S of infection Outcome: Progressing [facility] 03-06-2023 Note Formatting of this n ote might be different from the original. Discharge med list information transmitted to [facility] via [facility]port per TCC request. [facility] 03-06-2023 Note Formatting of this n ote might be different from the original. Discharge med list information transmitted to [facility] via [facility] per TCC request. [facility] 03-06-2023 Note Formatting of this n ote might be different from the original. Still awaiting insurance auth, discharge order noted in [facility]. Will need auth prior to discharge. TRACTOR MECHANIC tasked to send 24 hour Mar and DC paperwork. Per [facility] material liaison, insurance requested updated notes this AM and requested information was sent over. [facility] 03-06-2023 Note Formatting of this n ote might be different from the original. Still awaiting insurance auth, discharge order noted in Epic. Will need auth prior to discharge. TRACTOR MECHANIC tasked to send 24 hour Mar and DC paperwork. Per [facility] material liaison, insurance requested updated notes this AM and requested information was sent over. [facility] 03-06-2023 Note Formatting of this n ote is different from the original. Images from the original note were not included. Care Management Progress Note Pt remains on H6, PT OT rec IPR. Insurance auth pending for [facility]. On Ivf and Na 132, Neuro following. Will anticipate discharge to [facility] once auth is obtained, TCC to [...] Length of Stay (Days): 4 GMLOS: 2.6 [facility] 03-06-2023 Note Formatting of this n ote is different from the original. Images from the original note were not included. Care Management Progress Note Pt remains on H6, PT OT rec IPR. Insurance auth pending for [facility]. On Ivf and Na 132, Neuro following. Will anticipate discharge to [facility] once auth is obtained, TCC to [...] Length of Stay (Days): 4 GMLOS: 2.6 [facility] 03-06-2023 Hospital Discharge instructions Carlton Hsu [...] Unit/Room#: H-6125/H-6125 A Discharging Unit Phone Number: [phone] Emergency Contact: Extended Emergency Contact Information Primary [...] assistance Dressing Independent Toileting Independent Feeding Independent Elevator Pilot Independent Med Delivery yes Wound Care Documentation [...] Assessment Score: @[email or web address]@ Discharging to Facility/ Agency [place] [phone] ext [phone] Dialysis Facility (if applicable) Name: Address: Dialysis Schedule: Phone: Fax: Candy Waffle Assembler/Litigation Examiner signature: ICIAN SECTION Prognosis: good Condition at Discharge: stable Rehab Potential (if transferring to Rehab): good Recommended Labs or Other Treatments After Discharge: Follow up with Dr Mcgill on 03/13/2023 at 9:30 AM Physician Certification: I certify the above information and transfer of Pily Barnes is necessary for the continuing treatment of the diagnosis listed and that she requires senior living facility for less than 30 days. Update Admission H&P: No change in H&P PHYSICIAN SIGNATURE: documented in this encounter [facility] 03-06-2023 Note Formatting of this n ote might be different from the original. [facility] precert pending for [facility]. [facility] 03-06-2023 Note Formatting of this n ote might be different from the original. [facility] precert pending for [facility]. [facility] 03-05-2023 Plan of care note Problem: [...] goals for the shift include PAIN CONTROL [facility] 03-04-2023 Plan of care note Problem: [...] goals for the shift include PAIN CONTROL [facility] 03-03-2023 Note Formatting of this n ote might be different from the original. Referral [facility] via [facility] per TCC request. Await review and response regarding ability to accept. TCC notified. T [facility] 03-03-2023 Note Formatting of this n ote might be different from the original. Referral placed to [facility] via [facility] per TCC request. Await review and response regarding ability to accept. TCC notified. T [facility] 03-03-2023 Note Formatting of this n [...] [facility]. Liaozzie Calvin made aware. Will ask TRACTOR MECHANIC to send referral via careport. Pt awaiting OT eval so precert can be started. T [facility] 03-03-2023 Note Formatting of this n [...] [facility]. Liaison Marixa made aware. Will ask TRACTOR MECHANIC to send referral via careport. Pt awaiting OT eval so precert can be started. [facility] 03-03-2023 Note Formatting of this n ote might be different from the original. Care Managment Initial Assessment Date: 03/03/2023 Patient Name: Pily Barnes : 1950 Patient Information Source of Information: Patient Cognition/Language: WFL - Within Functional Limits Permission given to speak with patient exhibit display representative/caregiver as indicated: Confirmation of Payer with [...] Daily Living Prescription Coverage: Yes Pharmacy Used: [facility] Medication Management: Transportation/Shopping: Assistance Provider Transportation/Shopping [...] explained role of tcc. Pt lives at [facility] in [place]. She states she does need assistance with adls and uses walker and w/c at facility. Await PT/OT recommendations and will call facility to verify that she will be able to return at discharge. Mag Middleton RN [facility] [email or web address] 03-03-2023 Note Formatting of this n ote might be different from the original. Care Managment Initial Assessment Date: 03/03/2023 Patient Name: Pily Barnes : 1950 Patient Information Source of Information: Patient Cognition/Language: WFL - Within Functional Limits Permission given to speak with patient exhibit display representative/caregiver as indicated: Confirmation of Payer with patient/family: Yes Payer Name: [facility] Medicare : No Confirmation of Primary Care [...] Daily Living Prescription Coverage: Yes Pharmacy Used: [facility] Medication Management: Transportation/Shopping: Assistance Provider Transportation/Shopping [...] explained role of tcc. Pt lives at [facility] in [place]. She states she does need assistance with adls and uses walker and w/c at facility. Await PT/OT recommendations and will call facility to verify that she will be able to return at discharge. Mag Middleton RN [facility] [email or web address] 03-03-2023 Note Formatting of this n ote might be different from the original. Piano Assembler following case for Discharge Needs. [facility] [employer] 03-03-2023 Note Formatting of this n ote might be different from the original. Piano Assembler following case for Discharge Needs. [facility] [employer] 03-02-2023 Consult note Associated Order (s): IP CONSULT TO INTERNAL MEDICINE Images from the original note were not included. Hospital Medicine Consult Patient - Pily Barnes, Age - 72 y.o. - 1950 Room Number - H-6125/H-6125 A Consulting - Alonso Mcgill MD Primary Care Physician - KENIA MCKENZIE MD [facility] # - [id number] Date of Admission - 03/02/2023 8:38 AM [...] Relation: Other Abraham Henry MD [facility] [employer] Phone: 03-02-2023 Consult note Associated Order (s): IP CONSULT TO INTERNAL MEDICINE Images from the original note were not included. Hospital Medicine Consult Patient - Pily Barnes, Age - 72 y.o. - 1950 Room Number - H-6125/-[id number] [id number] Consulting - Alonso Mcgill MD Primary Care Physician - KENIA MCKENZIE MD [facility] # - [id number] Date of Admission - 03/02/2023 8:38 AM [...] MD Division of Hospitalist Medicine Inpatient Medical Services[facility] documented in this encounter [facility] 03-02-2023 Note Formatting of this n ote might be different from the original. Patient family/visitor updated by RN at this time. [facility] 03-02-2023 Note Formatting of this n ote might be different from the original. Patient family/visitor updated by RN at this time. [facility] 03-02-2023 Note Formatting of this n ote might be different from the original. OPERATIVE NOTE Patient Name: Pily Barnes : 1950 DATE OF PROCEDURE: 03/02/2023 SURGEON: Alonso Mcgill MD TUBE HANDLER: Cee Biggs CNP PREOPERATIVE DIAGNOSES: Cervical stenosis, [...] portion of C6. Retractors put in place. Rippey pins placed in C3-C4-C5 and C6 gentle [...] there is good hemostasis. Then a 10 Malian round POLO drain was placed, and the [...] allow the case to be performed safely. [facility] [email or web address] 03-02-2023 Note Formatting of this n ote is different from the original. Date: 03/02/2023 Location: [facility] OR Name: Pily Barnes, : 1950, Diagnosis Pre-op Diagnosis * Disease of spinal cord, unspecified (HCC) [G95.9] Post-op Diagnosis * Disease of spinal cord, unspecified (HCC) [G95.9] Procedures C3-C6 ANTERIOR CERVICAL DECOMPRESSION, FUSION 50098 - VA ARTHRD ANT INTERBODY DECOMPRESS CERVICAL BELW C2 VA ARTHRD ANT INTERDY CERVCL BELW C2 EA ADDL NTRSPC [01280] VA ANTERIOR INSTRUMENTATION 4-7 VERTEBRAL SEGMENTS [02207] Surgeons * Alonso Mcgill - Primary Procedure Summary Anesthesia: General ASA: III Estimated Blood Loss: 25 Drains: Closed/Suction Drain Neck Bulb (Active) Implants - [employer] Type Name Action Serial No. Bone BONE BMP PUTTY I-FACTOR 2.5CC - [id number] Implanted Bone GRAFT DBM PUTTY BIO 2.5CC VIAL - [id number] Implanted Spinal Hardware CAGE SPINAL [place] 6DEG 7MM - [id number] Implanted Spinal Hardware CAGE SPINAL [place] 6DEG 7MM - [id number] Implanted Spinal Hardware CAGE SPINAL [place] 6DEG 7MM - [id number] Implanted Plate 48MM PLATE Implanted Spinal Hardware SCREW BN VAS SD 3.5X15 - [id number] Implanted Staff: Test Evaluator: Cee Cisneros RN Nurse Practitioner: Cee Biggs APRN - [facility] Relief Test Evaluator: Randi Zavala RN Relief Scrub: Helga Matos [...] (two hours if receiving Vancomycin or flouroquinolone) [facility] 03-02-2023 Note Formatting of this n ote might be different from the original. OPERATIVE NOTE Patient Name: Pily Barnes : 1950 DATE OF PROCEDURE: 03/02/2023 SURGEON: Alonso Mcgill MD TUBE HANDLER: Cee Biggs CNP PREOPERATIVE DIAGNOSES: Cervical stenosis, [...] portion of C6. Retractors put in place. Rippey pins placed in C3-C4-C5 and C6 gentle [...] Following this an anterior cervical plate by [employer] was placed with 15 mm screws. C-arm shot was taken to confirm screws were in bone. After this the wound was doe irrigated out retractors removed the wound allowed to sit for several minutes to confirm there is good hemostasis. Then a 10 Malian round POLO drain was placed, and the [...] allow the case to be performed safely. [facility] 03-02-2023 Note Formatting of this n ote is different from the original. Date: 03/02/2023 Location: [facility] OR Name: Pily Barnes, : 1950, Diagnosis Pre-op Diagnosis * Disease of spinal cord, unspecified (HCC) [G95.9] Post-op Diagnosis * Disease of spinal cord, unspecified (HCC) [G95.9] Procedures C3-C6 ANTERIOR CERVICAL DECOMPRESSION, FUSION 80114 - VA ARTHRD ANT INTERBODY DECOMPRESS CERVICAL BELW C2 VA ARTHRD ANT INTERDY CERVCL BELW C2 EA ADDL NTRSPC [44714] VA ANTERIOR INSTRUMENTATION 4-7 VERTEBRAL SEGMENTS [90251] Surgeons * Alonso Mcgill - Primary Procedure Summary Anesthesia: General ASA: III Estimated Blood Loss: 25 Drains: Closed/Suction Drain Neck Bulb (Active) Implants - Medtronic Type Name Action Serial No. Bone BONE BMP PUTTY I-FACTOR 2.5CC - [id number] Implanted Bone GRAFT DBM PUTTY BIO 2.5CC VIAL - [id number] Implanted Spinal Hardware CAGE SPINAL [place]OCK 6DEG 7MM - [id number] Implanted Spinal Hardware CAGE SPINAL [place]OCK 6DEG 7MM - [id number] Implanted Spinal Hardware CAGE SPINAL NANOLOCK 6DEG 7MM - [id number] Implanted Plate 48MM PLATE Implanted Spinal Hardware SCREW BN VAS SD 3.5X15 - [id number] Implanted Staff: Test Evaluator: Cee Cisneros RN Nurse Practitioner: Cee Biggs APRN - BOOKING OFFICER Relief Test Evaluator: Randi Zavala RN Relief Scrub: Helga Matos [...] (two hours if receiving Vancomycin or flouroquinolone) [facility] 03-02-2023 History and physical note History Of [...] family understand and agree to the procedure. [employer] Phone: 03-02-2023 History and physical note History [...] Procedure: C3-C6 ANTERIOR CERVICAL DECOMPRESSION, FUSION Location: [address] Operating Room Surgeons: Alonso Mcgill MD Chief Complaint: Disease of spinal cord, unspecified History Of Present Illness: Case: [id number] Date/Time: 03/02/23 1030 Procedure: C3-C6 ANTERIOR CERVICAL DECOMPRESSION, FUSION [55360 CPT(R)] Anesthesia type: General Diagnosis: Disease of spinal cord, unspecified (HCC) [G95.9] Pre-op diagnosis: Disease of spinal cord, unspecified (HCC) [G95.9] Location: [address] Operating Room Surgeons: Alonso Mcgill MD From Dr. Mcgill's 12-07-22 office note: 72 y.o. presents with symptoms of myelopathy x 2 years. She reports significant numbness and tingling in bilateral hands. She is utilizing a rollator due to gait instability and weakness and has suffered frequent falls." ? Denies history of ME, CAD, CHF, TIA, CVA Past Medical History: [...] 1 tablet by mouth daily. nystatin (Mycostatin) 313351 UNIT/GM powder Apply 1 Application topically 2 [...] ear normal. Nose: Nose normal. Mouth/Throat: Lips: Rienzi. Mouth: Mucous membranes are moist. Pharynx: Oropharynx [...] Electronically signed by: Christal Carcamo APRN - BOOKING OFFICER Date: 02/27/2023 at 4:25 PM PAT Protocol referenced includes: 1. Anesthesia Lab Protocol Orders 2. Perioperative Cardiovascular Risk Assessment 3. Anesthesia Assessment 4. Pain Assessment and Acute Pain Service Consult (if appropriate) 5. Medical Clearance/Consult from Internal Medicine (IMS) 6. Shower/Wash Order (for designated surgeries) 7. TATI Screen and Sleep Clinic Referral (if appropriate) documented in this encounter [facility] 02-27-2023 History and physical note Images from the original note were not included. Comprehensive PreSurgical History and Physical ? Name: Pily Barnes : 1950 (Age-72 y.o.) Date of Service: Pt seen/examined on 02/27/2023 Procedure Information Date/Time: 03/02/23 1030 Procedure: C3-C6 ANTERIOR CERVICAL DECOMPRESSION, FUSION Location: [address] Operating Room Surgeons: Alonso Mcgill MD Chief Complaint: Disease of spinal cord, unspecified History Of Present Illness: Case: [id number] Date/Time: 03/02/23 1030 Procedure: C3-C6 ANTERIOR CERVICAL DECOMPRESSION, FUSION [62362 CPT(R)] Anesthesia type: General Diagnosis: Disease of spinal cord, unspecified (HCC) [G95.9] Pre-op diagnosis: Disease of spinal cord, unspecified (HCC) [G95.9] Location: [address] Operating Room Surgeons: Alonso Mcgill MD From Dr. Mcgill's 12-07-22 office note: 72 y.o. presents with symptoms of myelopathy x 2 years. She reports significant numbness and tingling in bilateral hands. She is utilizing a rollator due to gait instability and weakness and has suffered frequent falls." ? Denies history of ME, CAD, CHF, TIA, CVA Past Medical History: [...] 1 tablet by mouth daily. nystatin (Mycostatin) 891173 UNIT/GM powder Apply 1 Application topically 2 [...] ear normal. Nose: Nose normal. Mouth/Throat: Lips: Rienzi. Mouth: Mucous membranes are moist. Pharynx: Oropharynx [...] Screen and Sleep Clinic Referral (if appropriate) [facility] 02-03-2023 Telephone encounter Note Returned call Spoke with Stated he was unable to talk now And would call back later [facility] 02-03-2023 Miscellaneous Notes Returned call Spoke with Stated he was unable to talk now And would call back later Pt LM on VM asking for a call back. Call back: [phone] documented in this encounter [facility] 02-02-2023 Telephone encounter Note Pt LM on VM asking for a call back. Call back: [phone] [facility] 01-16-2023 Telephone encounter Note AUTH INITIATED Reference number is [id number]. [facility] 01-16-2023 Miscellaneous Notes AUTH INITIATED Reference number is [id number]. Procedure: C3/C4, C4/C5, C5/C6 ACDF Anesthesia: GET Time: 2.5 Positioning/Frame: [employer]/Implants: Medtronic O-Arm: N C-Arm: Y Stealth Navigation: N Bright: N Microscope: Y Brace: Pre-Op Imaging: [facility] Intranerve: Y Inpatient/Outpatient: In Medications to DC: Other:[id number], [id number] x 2, [id number] results with her son Claudia. He states taht his mother would like to go forward with surgery. Based on Ct scan will be anterior approach; C3-C6 A[address] orders for surgery. documented in this encounter [employer] 01-16-2023 Telephone encounter Note Procedure: C3/C4, C4/C5, C5/C6 ACDF Anesthesia: GET Time: 2.5 Positioning/Frame: [employer]/Implants: Medtronic O-Arm: N C-Arm: Y Stealth Navigation: N Bright: N Microscope: Y Brace: Pre-Op Imaging: [facility] Intranerve: Y Inpatient/Outpatient: In Medications to DC: Other:[id number], [id number] x 2, 89252 [employer] Phone: 01-16-2023 Telephone encounter Note Called and discussed CT results with her son Claudia. He states taht his mother would like to go forward with surgery. Based on Ct scan will be anterior approach; C3-C6 A[address] orders for surgery. [employer] Phone: 12-07-2022 History of Present illness Narrative [...] Right achilles: 2+ Left achilles: 2+ Right religious ritual slaughterer: 2+ Left religious ritual slaughterer: 2+ Right Khanna: present Left Khanna: present [...] wo IV contrast documented in this encounter [facility] 11-11-2022 History of Present illness Narrative [...] is no overt dysmetria nor dysdiadochokinesia with agdycv-lb-cqax or rapid alternating movements. Gait Examination: Slow to stand, shuffling gait with RW documented in this encounter [facility] 08-12-2022 History of Present illness Narrative [facility]ICINE PROGRESS NOTE PATIENT: Pily Barnes MRD: [id number] DATE: August 12, 2022 IDENTIFYING INFORMATION: Pily [...] coordination of care. documented in this encounter [facility] 07-01-2022 Miscellaneous Notes Patient called and is requesting to speak with you. Marija Daniels documented in this encounter [facility] 05-26-2022 History of Present illness Narrative POPULATION HEALTH NAVIGATION OUTREACH Action/FYI Pt identified by name and : NO Outreach Outcome/Action Patient currently at [facility], . I called facility to inquire [...] Care Gap or Scheduling/Wellness visits Payer: Payor: [facility] MEDICARE / Plan: CARITO [facility] MEDICARE / Product Type: Medicare / Care [...] 2022 3:12 PM documented in this encounter [facility] 04-05-2022 History of Present illness Narrative [facility] MEDICINE PROGRESS NOTE PATIENT: Pily Barnes MRD: [id number] DATE: April 05, 2022 IDENTIFYING INFORMATION: Pily [...] staying and I did discuss with her oil field caser to call and the director of nurses [...] sad about where she is in the [facility] Affect: appropriate to content Thought Process: logical [...] anxiety disorder - ICD9: 300.02, ICD10: F41.1 [place] residence [phone] Continue with Invega 39 mg monthly Abilify [...] coordination of care. documented in this encounter [facility] 03-28-2022 Miscellaneous Notes Left voicemail to schedule Marija Daniels documented in this encounter [facility] 03-21-2022 Miscellaneous Notes Called [facility] to talk about Pily Barnes. I am not closing Pily's case, My discussion with Pily regarded does she have somebody prescribing her medicines for her. I had contacted the DON To determine if she does have another care assistant who will be prescribing her medicines. Will continue with care. Patient's oil field caser from [facility], [facility], called to speak with you. She states the patient told her you were closing her case and she has some questions. [phone] Marija Daniels documented in this encounter [facility] 03-18-2022 History of Present illness Narrative TRANSITIONAL CARE MANAGEMENT (TCM) COMMUNITY MONITORING PROGRAM - [facility] Provider Action/FYI: SUMMARY: Pt discharged from [facility] on 03/17/22. Admitted for: Rhabdomyolysis Contact made with patient: No - next outreach attempt will be on next day Outreach ended Soco Barrera RN documented in this encounter [facility] 03-18-2022 History of Present illness Narrative PRIMARY CARE COORDINATION QUICK NOTE Provider Action/FYI Patient identified by name and date . TC to [facility] patient no longer at this facility. TC to [facility] [phone]. Patient returned to facility on 03/17/22. Patient has nursing administering her medications and aides that assist with care. Patient will continue to follow with Dr Laura. Soco Barrera RN documented in this encounter [facility] 03-17-2022 Miscellaneous Notes requesting the following refill Refill(s) Requested: Pending Prescriptions Disp Refills FLUTICASONE FUROATE 100 MCG-VILANTEROL 25 MCG/DOSE INHALATION POWDER 3 Sig: Inhale 1 puff BY MOUTH INTO THE LUNGS EVERY DAY [place]: Yes ALLERGIES Allergen Reactions Sulfadiazine Swelling Facial swelling Seasonal Allergies Intolerance Sulfa (Sulfonamide * Itching (home) [phone] (cell) Last Office Visit Date: 01/28/2022 Last Distance Health Visit: Visit date not found Future Appointment: Visit date not found The patients preferred pharmacy has been captured for this encounter? yes Request is for script(s) to be escript to pharmacy. Adrianne Mckee LPN documented in this encounter [facility] 03-11-2022 History of Present illness Narrative PRIMARY CARE COORDINATION QUICK NOTE Provider Action/FYI Patient identified by name and date . TC To Josselyn Mcdonald requesting update on discharge plan. Spoke with Helen bilingual social worker. Plan is for the patient to be discharged to [place] assisted living. Unsure of discharge date at this time. Instructed to call back next week after Monday Meeting. Soco Barrera RN documented in this encounter [facility] 03-10-2022 Miscellaneous Notes requesting the following refill Refill(s) Requested: Pending Prescriptions Disp Refills FLUTICASONE PROPIONATE 50 MCG/ACTUATION NASAL SPRAY,SUSPENSION 16 g 3 Sig: instill TWO SPRAYS IN EACH nostril ONCE daily NEEDED DENNY: No ALLERGIES Allergen Reactions Sulfadiazine Swelling Facial swelling Seasonal Allergies Intolerance Sulfa (Sulfonamide * Itching (home) [phone] (cell) Last Office Visit Date: 10/19/2021 Last [facility] Visit: 02/22/2022 Future Appointment: Visit date not found The patients preferred pharmacy has been captured for this encounter? yes Request is for script(s) to be escript to pharmacy. Adrianne Mckee LPN documented in this encounter [facility] 02-28-2022 Miscellaneous Notes Pharmacy faxed requesting the following refill: Refill(s) Requested: Pending Prescriptions Disp Refills INVEGA SUSTENNA 39 MG/0.25 ML INTRAMUSCULAR SYRINGE 0.25 mL 1 Sig: INJECT 0.25 ML into THE MUSCLE EVERY FOUR WEEKS DENNY: No ALLERGIES Allergen Reactions Sulfadiazine Swelling Facial swelling Seasonal Allergies Intolerance Sulfa (Sulfonamide * Itching (home) [phone] (cell) Last Office Visit Date: 02/15/2022 Last [facility] Visit: Visit date not found Future [...] 2022 8:56 AM documented in this encounter [facility] 02-24-2022 History of Present illness Narrative [...] 2 points Echogenicity: Hypoechoic, 2 points Shape: [id number]-[id number]-[id number], 3 points Margin: Smooth, 0 points Echogenic [...] 2 points Echogenicity: Hypoechoic, 2 points Shape: Uhwpi-[id number]-[id number], 0 points Margin: Smooth, 0 points Echogenic [...] 2 points Echogenicity: Hypoechoic, 2 points Shape: Zdvpi-himk-fxxj, 0 points Margin: Smooth, 0 points Echogenic [...] which included preparing to see the patient, [id number] patient care, completing clinical documentation, obtaining and/or [...] 1 year (around 02/24/2023). Anthony Ramirez MD [facility] Endocrinology [address], [address] [place] [address] This note was partially generated using Lifetable voice recognition system, and there may be some incorrect words, spellings, and punctuation that were not intended as it appear in the note. documented in this encounter [facility] 02-16-2022 Miscellaneous Notes Sanam from [facility] called regarding an assisted living facility that has an opening for pt. They will need an H&P, med list, any standing orders, and DX. They would like to get pt in this opening. [facility] in [place] is the location FAX is [phone]. They have sent the forms to our office. I will locate and put in your box. documented in this encounter [facility] 02-15-2022 History of Present illness Narrative [facility] PROGRESS NOTE PATIENT: Pily Barnes MRD: [id number] DATE: February 15, 2022 IDENTIFYING INFORMATION: Pily [...] reviewed she has an upcoming visit with poker room manager Medication Review: she has had the reduced [...] 300.02, ICD10: F41.1 Danny De La Cruz APRN.CNP Patient understands and agrees with the treatment plan: Yes Return in about 4 weeks (around 03/15/2022), or 03/18 phone. Psycho-Education: Total time in direct patient contact = 30 min. Greater than 50% of the time was spent in counseling and/or coordination of care. documented in this encounter [facility] 02-10-2022 Miscellaneous Notes requesting the following refill Refill(s) Requested: Pending Prescriptions Disp Refills ALBUTEROL SULFATE HFA 90 MCG/ACTUATION AEROSOL INHALER 18 g 3 Sig: INHALE TWO PUFFS BY MOUTH INTO THE LUNGS instructed EVERY 4 HOURS NEEDED FOR WHEEZING OR FOR SHORTNESS OF BREATH DENNY: Yes ALLERGIES Allergen Reactions Sulfadiazine Swelling Facial swelling Seasonal Allergies Intolerance Sulfa (Sulfonamide * Itching (home) [phone] (cell) Last Office Visit Date: 01/28/2022 Last [facility] Visit: Visit date not found Future Appointment: Visit date not found The patients preferred pharmacy has been captured for this encounter? yes Request is for script(s) to be escript to pharmacy. Adrianne Mckee LPN documented in this encounter [facility] 02-09-2022 Miscellaneous Notes Patient called and left voicemail giving verbal permission for Danny De La Cruz to speak with Adenike at [facility] Marija Daniels documented in this encounter [facility] 02-08-2022 Miscellaneous Notes Noted. Thanks Danny Laura MD Major Account Manager Sanam calvin , called regarding patient's multiple falls. Visited patient at home, home is clean and uncluttered. Discussed 3 options of assisted living with patient, agrees it would be best for patient to go to assisted living to be more closely monitor with medications. documented in this encounter [facility] 02-07-2022 Miscellaneous Notes Scheduled 02/15/22 Pharmacy faxed requesting the following refill: Refill(s) Requested: Pending Prescriptions Disp Refills CLONAZEPAM 0.5 MG TABLET 30 tablet 1 Sig: TAKE ONE-HALF TABLET BY MOUTH EVERY DAY NEEDED FOR SEVERE ANXIETY KHADRA Class: C-IV DENNY: Yes ALLERGIES Allergen Reactions Sulfadiazine Swelling Facial swelling Seasonal Allergies Intolerance Sulfa (Sulfonamide * Itching (home) [phone] (cell) Last Office Visit Date: 07/15/2021 Last [facility] Visit: Visit date not found Future [...] 2022 8:02 AM documented in this encounter [facility] 01-28-2022 History of Present illness Narrative Images from the original note were not included. Danny Laura MD [facility] Geriatrics [facility]. [place] [phone] Visit Date: January 28, 2022 Name: Ms.Carol Mauro Barnes Date of : 1950 MRN/E #: [id number] Chief Complaint: Patient presents with: Follow Up: [...] Transportation: D, Medications: I, Handle Finances: A. ([place] scale): 2 Review of Systems Constitutional: Positive [...] plans. This note was partially generated using Lifetable voice recognition system, and there may be some incorrect words, spellings, and punctuation that were not noted in checking the note before saving. documented in this encounter [facility] 01-24-2022 Miscellaneous Notes Pharmacy faxed requesting the following refill: Refill(s) Requested: Pending Prescriptions Disp Refills BUPROPION XL 300 MG 24 HR TAB 30 tablet 2 Sig: TAKE ONE TABLET BY MOUTH EVERY DAY DENNY: Yes ALLERGIES Allergen Reactions Sulfadiazine Swelling Facial swelling Seasonal Allergies Intolerance Sulfa (Sulfonamide * Itching (home) [phone] (cell) Last Office Visit Date: 07/15/2021 Last [...] 2022 8:24 AM documented in this encounter [facility] 01-17-2022 Miscellaneous Notes Dose changed Pharmacy faxed requesting the following refill: Refill(s) Requested: Pending Prescriptions Disp Refills INVEGA SUSTENNA 78 MG/0.5 ML INTRAMUSCULAR SYRINGE 0.5 mL 2 Sig: INJECT 78mg IN 0.5 ML intramuscularly every 4 WEEKS DENNY: No ALLERGIES Allergen Reactions Sulfadiazine Swelling Facial swelling Seasonal Allergies Intolerance Sulfa (Sulfonamide * Itching (home) [phone] (cell) Last Office Visit Date: 07/15/2021 Last [facility] Visit: Visit date not found Future [...] 2022 9:33 AM documented in this encounter [facility] 01-14-2022 Miscellaneous Notes Scheduled 02/15/22 [facility] faxed requesting the following refill: Refill(s) Requested: Pending Prescriptions Disp Refills INVEGA SUSTENNA 78 MG/0.5 ML INTRAMUSCULAR SYRINGE 0.5 mL 2 Sig: INJECT 78mg IN 0.5 ML intramuscularly every 4 WEEKS DENNY: No ALLERGIES Allergen Reactions Sulfadiazine Swelling Facial swelling Seasonal Allergies Intolerance Sulfa (Sulfonamide * Itching (home) [phone] (cell) Last Office Visit Date: 07/15/2021 Last [...] 2022 8:32 AM documented in this encounter [facility] 01-10-2022 Miscellaneous Notes Scheduled on 02/15/22 [facility] faxed requesting the following refill: Refill(s) Requested: Pending Prescriptions Disp Refills FLUOXETINE 20 MG CAPSULE 90 capsule 2 Sig: TAKE THREE CAPSULES BY MOUTH EVERY DAY DENNY: Yes ALLERGIES Allergen Reactions Sulfadiazine Swelling Facial swelling Seasonal Allergies Intolerance Sulfa (Sulfonamide * Itching (home) [phone] (cell) Last Office Visit Date: 07/15/2021 Last [...] 2022 9:18 AM documented in this encounter [facility] 01-06-2022 History of Present illness Narrative [facility] PROGRESS NOTE PATIENT: Pily Barnes MRD: [id number] DATE: January 06, 2022 IDENTIFYING INFORMATION: Pily [...] her son. Her son helped her prepare [employer] [place] baskets She thinks she is sleeping too much, she sleeps at night and also in the daytime. She still likes to read she goes to the [employer]. She thinks her mood has been pretty [...] 300.02, ICD10: F41.1 Danny De La Cruz APRN.BOOKING OFFICER Reduce Invega to 39 mg monthly injection [...] coordination of care. documented in this encounter [facility] 01-03-2022 Miscellaneous Notes Patient is scheduled for 01/06/22 [facility] faxed requesting the following refill: Refill(s) Requested: Pending Prescriptions Disp Refills ARIPIPRAZOLE 5 MG TABLET 30 tablet 2 Sig: TAKE ONE TABLET BY MOUTH EVERY DAY DENNY: Yes ALLERGIES Allergen Reactions Sulfadiazine Swelling Facial swelling Seasonal Allergies Intolerance Sulfa (Sulfonamide * Itching (home) [phone] (cell) Last Office Visit Date: 07/15/2021 Last [...] 2022 8:24 AM documented in this encounter [facility] 12-27-2021 Miscellaneous Notes Pharmacy faxed requesting the following refill: Refill(s) Requested: Pending Prescriptions Disp Refills CLONAZEPAM 0.5 MG TABLET 30 tablet 1 Sig: TAKE ONE-HALF TABLET BY MOUTH EVERY DAY NEEDED for severe anxiety KHADRA Class: C-IV DENNY: No ALLERGIES Allergen Reactions Sulfadiazine Swelling Facial swelling Seasonal Allergies Intolerance Sulfa (Sulfonamide * Itching (home) [phone] (cell) Last Office Visit Date: 07/15/2021 Last [...] 2021 8:52 AM documented in this encounter [facility] 12-09-2021 History of Present illness Narrative [facility] PROGRESS NOTE PATIENT: Pily Barnes MRD: [id number] DATE: December 09, 2021 IDENTIFYING INFORMATION: Pily [...] forward to going to her son's for [facility] Review of Systems Psychiatric/Behavioral: Negative for depression [...] coordination of care. documented in this encounter [facility] 12-02-2021 Miscellaneous Notes Pharmacy faxed requesting the following refill Refill(s) Requested: Pending Prescriptions Disp Refills BREO ELLIPTA 100 MCG-25 MCG/DOSE POWDER FOR INHALATION 0 Sig: INHALE ONE PUFF BY MOUTH EVERY DAY DENNY: Yes ALLERGIES Allergen Reactions Sulfadiazine Swelling Facial swelling Seasonal Allergies Intolerance Sulfa (Sulfonamide * Itching (home) [phone] (cell) Last Office Visit Date: 04/30/2021 Last [facility] Visit: Visit date not found Future Appointment: Visit date not found The patients preferred pharmacy has been captured for this encounter? yes Request is for script(s) to be escript to pharmacy. Regi Pearl MA documented in this encounter [facility] 11-30-2021 Miscellaneous Notes Pharmacy notified Regi [...] 2021 2:57 PM documented in this encounter [facility] 11-29-2021 Miscellaneous Notes Called [facility] and per Dr Ramirez no need for further testing or to keep specimen. Shelby Guerrero.uniform patrol police officer No need to keep the specimen or run additional Afirma testing. Most recent thyroid ultrasound revealed that the nodule is stable. Called [facility] and informed them to keep specimen until Dr Ramirez speaks with radiology to confirm if this is the same nodule or the other one on the R side. Interventional Radiology ([facility]es[facility] ext [phone]) Shelby Guerrero.uniform patrol police officer There are 2 nodules on the right [...] again with the provider for retest. Shelby Guerrero.uniform patrol police officer Yes please if possible Lab is calling back again. Please advise Shae Figueroa MA November 22, 2021 2:19 PM The Lab called ([phone]). The Thyroid Biopsy sample that was sent was done on the same nodule as the one in Jul. The results will likely be the same as the last results. Do you still want the sample tested? If so it will be no problem. Please advise Shae Figueroa MA November 17, 2021 2:39 PM documented in this encounter [facility] 11-23-2021 Miscellaneous Notes Radiology Service Progress [...] 2021 10:38 AM documented in this encounter [facility] 11-22-2021 Nurse Note Patient here for [...] in decreased dose. documented in this encounter [facility] 11-22-2021 History of Present illness Narrative Images from the original note were not included. [facility] [address] [place] [address] Date of Evaluation: 11/22/2021 Patient Name: Pily [...] Lymph 1.00 - 4.00 k/uL 0.93 (L) [place]% % 8.7 Abs [place] <0.87 k/uL 0.42 Eosin% % 1.4 Abs [...] Negative Negative Ketones, Urine Negative Negative Specific [place], Ur 1.005 - 1.030 1.008 Hemoglobin/Blood,Ur Negative [...] 3. Small left frontal subcutaneous scalp contusion. Flooring Installer: PSCB Transcribe Date/Time: Nov 15 2021 8:23P Dictated by : ALBERT DEL VALLE MD This examination was interpreted and the report reviewed and electronically signed by: ALBERT DEL VALLE MD on Nov 15 2021 8:34PM EST [...] which included preparing to see the patient, [id number] patient care, completing clinical documentation, obtaining and/or reviewing separately obtained history, performing a medically appropriate examination, counseling and educating the patient/family/caregiver and communicating results to the patient/family/caregiver. documented in this encounter [facility] 11-22-2021 Instructions Kenia Laura PA-C - 11/22/2021 4:00 PM EDT Thank you for visiting the [facility]. Your health and well-being are important to us and we appreciate your trust in the care we provide. Kenia Laura PA-C [facility] As discussed, please continue with the reduced [...] include walking, swimming, and Abdulaziz Chi (a Spanish martial art that involves slow, gentle movements). [...] health and independence. documented in this encounter [facility] 07-27-2021 Miscellaneous Notes Patient called left message would like thyroid biopsy results. Radhika documented in this encounter [facility] 12-16-2020 History of Past i llness [...] of this encounter (statuses as of 02/24/2022) [facility] History of Past illness Narrative* Problem [...] of this encounter (statuses as of 02/28/2022) [facility] History of Past illness Narrative* Problem [...] of this encounter (statuses as of 03/03/2022) [facility] History of Past illness Narrative* Problem [...] of this encounter (statuses as of 03/08/2022) [facility] History of Past illness Narrative* Problem [...] of this encounter (statuses as of 03/11/2022) [facility] of Past illness Narrative* Problem [...] of this encounter (statuses as of 03/11/2022) [facility] of Past illness Narrative* Problem [...] of this encounter (statuses as of 03/17/2022) [facility] of Past [facility] Narrative* Problem [...] of this encounter (statuses as of 03/18/2022) [facility] Narrative* Problem [...] of this encounter (statuses as of 03/21/2022) [facility] Past [facility] Narrative* Problem [...] of this encounter (statuses as of 03/28/2022) [facility] Narrative* Problem [...] of this encounter (statuses as of 04/11/2022) [facility] Narrative* Problem [...] of this encounter (statuses as of 05/26/2022) [facility] Narrative* Problem [...] of this encounter (statuses as of 07/11/2022) [facility] Narrative* Problem [...] of this encounter (statuses as of 09/12/2022) [facility] Narrative* Problem [...] of this encounter (statuses as of 11/15/2023) [facility] Narrative* Problem [...] of this encounter (statuses as of 11/16/2023) [facility] Narrative* Problem [...] of this encounter (statuses as of 11/21/2023) [facility] of Past illness Narrative* Problem [...] of this encounter (statuses as of 11/24/2021) [facility] Past illness Narrative* Problem [...] of this encounter (statuses as of 11/29/2021) [address]21 History of Past illness Narrative* Problem [...] of this encounter (statuses as of 11/30/2021) [facility] of Past illness Narrative* Problem [...] of this encounter (statuses as of 12/03/2021) [facility] Past illness Narrative* Problem [...] of this encounter (statuses as of 12/06/2021) [address] History of Past illness Narrative* Problem [...] of this encounter (statuses as of 12/09/2021) [facility] Past illness Narrative* Problem [...] of this encounter (statuses as of 12/27/2021) [facility] Narrative* Problem [...] of this encounter (statuses as of 12/30/2021) [facility] Narrative* Problem [...] of this encounter (statuses as of 01/03/2022) [facility] Narrative* Problem [...] of this encounter (statuses as of 01/07/2022) [facility] Narrative* Problem [...] of this encounter (statuses as of 01/10/2022) [facility] Narrative* Problem [...] of this encounter (statuses as of 01/14/2022) [facility] Narrative* Problem [...] of this encounter (statuses as of 01/17/2022) [facility] Narrative* Problem [...] of this encounter (statuses as of 01/24/2022) [facility] Narrative* Problem [...] of this encounter (statuses as of 01/26/2022) [facility] Narrative* Problem [...] of this encounter (statuses as of 01/31/2022) [facility] Narrative* Problem [...] of this encounter (statuses as of 02/07/2022) [facility] Narrative* Problem [...] of this encounter (statuses as of 02/08/2022) [facility] Narrative* Problem [...] of this encounter (statuses as of 02/10/2022) [facility] Narrative* Problem [...] of this encounter (statuses as of 02/10/2022) [facility] Narrative* Problem [...] of this encounter (statuses as of 02/15/2022) [facility] Narrative* Problem [...] of this encounter (statuses as of 02/16/2022) [facility] note* Diagnosis [facility]ness of breath [facility] Diagnosis Frequent falls- Primary Personal history of fall Moderate persistent asthma without complication Unspecified asthma Stage 3 chronic kidney disease, unspecified whether stage 3a or 3b CKD (HCC) Limited mobility [facility]* Diagnosis Bipolar 1 disorder (HCC)- Primary Bipolar I disorder, most recent episode (or current) unspecified Generalized anxiety disorder documented in this encounter [facility] note* Diagnosis Generalized anxiety disorder [facility] Diagnosis 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 Major depressive disorder, recurrent episode, severe, specified as with psychotic behavior Generalized anxiety disorder documented in this encounter [facility] note* Diagnosis Bipolar 1 disorder, depressed, moderate (HCC) Bipolar I disorder, most recent episode (or current) depressed, moderate documented in this encounter [facility] note* Diagnosis Falls frequently- Primary Personal history of fall documented in this encounter [facility] note* Diagnosis Generalized anxiety disorder [facility] Diagnosis Mild intermittent asthma without complication Unspecified asthma [facility]* Diagnosis Bipolar 1 disorder, depressed, moderate (HCC)- Primary Bipolar I disorder, most recent episode (or current) depressed, moderate Generalized anxiety disorder [facility]* Diagnosis Multiple thyroid nodules- Primary Nontoxic multinodular goiter S/P partial thyroidectomy Other postprocedural status [facility] Diagnosis OPENED IN ERROR- Primary To allow closing an encounter opened in error (used in SmartSet) documented in this encounter [facility] note* Diagnosis OPENED IN ERROR- Primary To allow closing an encounter opened in error (used in SmartSet) documented in this encounter [facility] note* Diagnosis Allergic rhinitis, unspecified seasonality, unspecified trigger documented in this encounter [facility] note* Diagnosis Shortness of breath [facility]* Diagnosis Bipolar 1 disorder (HCC)- Primary Bipolar I disorder, most recent episode (or current) unspecified Generalized anxiety disorder Bipolar 1 disorder, depressed, moderate (HCC) Bipolar I disorder, most recent episode (or current) depressed, moderate documented in this encounter [facility] note* Diagnosis Bipolar 1 disorder (HCC)- Primary Bipolar I disorder, most recent episode (or current) unspecified Generalized anxiety disorder Bipolar 1 disorder, depressed, moderate (HCC) Bipolar I disorder, most recent episode (or current) depressed, moderate documented in this encounter [facility] note* Diagnosis Cervical myelopathy (HCC)- Primary Cervical spondylosis with myelopathy 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) documented in this encounter [facility] note* Diagnosis Hand numbness- Primary Disturbance of skin sensation Dizziness Dizziness and giddiness Hand numbness Disturbance of skin sensation Dizziness Dizziness and giddiness documented in this encounter [facility] note* Diagnosis 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) [facility] Diagnosis Cervical stenosis of spinal canal- Primary Spinal stenosis in cervical region Cervical stenosis of spinal canal Spinal stenosis in cervical region documented in this encounter [facility] note* Diagnosis Left arm cellulitis- Primary documented in this encounter [facility]* Diagnosis Dysphagia documented in this encounter [facility] note* Diagnosis Cervical myelopathy (HCC) Cervical spondylosis with myelopathy documented in this encounter [facility] note* Diagnosis Cervical myelopathy (HCC)- Primary Cervical spondylosis with myelopathy documented in this encounter [facility]* Diagnosis Dysphagia- Primary Dysphagia documented in this encounter [facility] note* Diagnosis Dysphagia, unspecified type Abnormal barium swallow Nonspecific (abnormal) findings on radiological and other examination of gastrointestinal tract Essential hypertension Unspecified essential hypertension Mild intermittent asthma without complication Unspecified asthma Stage 3 chronic kidney disease, unspecified whether stage 3a or 3b CKD (HCC) Nonrheumatic aortic valve stenosis Aortic valve disorders Mixed hyperlipidemia documented in this encounter [facility] note* Diagnosis Esophageal stenosis- Primary Stricture and stenosis of esophagus Adenomatous polyp of duodenum Other specified disorder of stomach and duodenum documented in this encounter [facility] note* Diagnosis Nausea vomiting and diarrhea- Primary Acute kidney injury (HCC) Nausea vomiting and diarrhea Acute kidney injury (HCC) documented in this encounter [facility] note* Diagnosis Diverticulitis- Primary Diverticulitis of colon (without mention of hemorrhage) Rectal bleeding Hemorrhage of rectum and anus Aneurysm of ascending aorta without rupture (HCC) documented in this encounter [facility] note* Diagnosis Aneurysm of ascending aorta without rupture (HCC)- Primary Diverticulitis Diverticulitis of colon (without mention of hemorrhage) Primary hypertension Unspecified essential hypertension Disorder of artery or arteriole (HCC) Unspecified disorders of arteries and arterioles documented in this encounter [facility] note* Diagnosis Esophageal stenosis- Primary Stricture and stenosis of esophagus Diverticulitis Diverticulitis of colon (without mention of hemorrhage) documented in this encounter [facility] note* Diagnosis Aneurysm of ascending aorta without rupture (HCC) Diverticulitis Diverticulitis of colon (without mention of hemorrhage) Primary hypertension Unspecified essential hypertension Disorder of artery or arteriole (HCC) Unspecified disorders of arteries and arterioles documented in this encounter [facility] note* Diagnosis Dilatation of thoracic aorta (HCC)- Primary Thoracic aortic ectasia Preop cardiovascular exam Pre-operative cardiovascular examination Primary hypertension Unspecified essential hypertension Coronary artery calcification Coronary atherosclerosis of unspecified type of vessel, little traverse or graft Dyslipidemia Other and unspecified hyperlipidemia Chronic kidney disease, unspecified CKD stage Aneurysm of ascending aorta without rupture (HCC) Diverticulitis Diverticulitis of colon (without mention of hemorrhage) Disorder of artery or arteriole (HCC) Unspecified disorders of arteries and arterioles Dyspnea, unspecified type documented in this encounter [facility] note* Diagnosis Aneurysm of ascending aorta without rupture (HCC) Diverticulitis Diverticulitis of colon (without mention of hemorrhage) Primary hypertension Unspecified essential hypertension Disorder of artery or arteriole (HCC) Unspecified disorders of arteries and arterioles documented in this encounter [facility] note* Diagnosis Aneurysm of ascending aorta without rupture (HCC)- Primary Disorder of artery or arteriole (HCC) Unspecified disorders of arteries and arterioles documented in this encounter [facility] note* Diagnosis Hand numbness Disturbance of skin sensation Dizziness Dizziness and giddiness documented in this encounter [facility] note* Diagnosis 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) (HCC)- Primary Parkinsonism, unspecified Parkinsonism type ([facility]) documented in this encounter [facility] note* Diagnosis Dysphagia, unspecified type Abnormal [...] arteries and arterioles documented in this encounter [facility] note* Diagnosis Dysphagia, unspecified type Abnormal barium [...] for breast cancer documented in this encounter [facility] note* Diagnosis Closed nondisplaced intertrochanteric fracture of right femur, initial encounter ([facility])- Primary Closed displaced intertrochanteric fracture of right femur, initial encounter ([facility]) Closed nondisplaced intertrochanteric fracture of right femur, initial encounter ([facility]) Osteoporosis, unspecified osteoporosis type, unspecified pathological fracture presence Debility Unspecified debility Acute pain due to trauma Bipolar 1 disorder ([facility]) At risk for delirium documented in this encounter [facility] note* Diagnosis Closed displaced intertrochanteric fracture of right femur, initial encounter ([facility])- Primary documented in this encounter [facility] noteNo assessment information availableWUniversity Hospitals [facility] Work Phone: Reason for referral (narrative)* Outpatient Procedure (Routine) - Closed Specialty Diagnoses / Procedures Referred By Consuelo t Referred To Contact Diagnoses Dysphagia, unspecified type Abnormal barium swallow Procedures EGD DIAGNOSTIC EGD DIAGNOSTIC ESOPHAGOGASTRODUODENOSCOPY TRANSORAL DIAGNOSTIC Arely Hercules PA-C [address] [place] [address] [address] Referral ID Status Reason Start Date Expiration Date V isits Requested Visits Authorized [id number] Closed Auto-Generate d Referral 11/14/2023 02/12/2024 1 1 [facility] for referral (narrative)* Outpatient Procedure (Routine) - Pending Review Specialty Diagnoses / Procedures Referred By Contac t Referred To Contact [facility] Diagnoses Esophageal stenosis Adenomatous polyp of duodenum Procedures EGD - THERAPEUTIC, EUS, OR TUBE INTERVENTIONS EGD DILATION GASTRIC/DUODENAL STRICTURE Arely Hercules PA-C [address] [place] [address] [address] Referral ID Status Reason Start Date Expiration Date Visits Requested Visits Authorized [id number] Pending Review Auto-Generat ed Referral 11/16/2023 11/15/2024 1 1 [facility] for referral (narrative)* Outpatient Procedure (Routine) - Pending Review Specialty Diagnoses / Procedures Referred By Contac t Referred To Contact [facility] Diagnoses Diverticulitis Procedures COLONOSCOPY DIAGNOSTIC COLONOSCOPY FLX DX W/COLLJ SPEC WHEN PFRMD Arely Hercules PA-C [address] [place] [address] [address] Referral ID Status Reason Start Date Expiration Date Visits Requested Visits Authorized [id number] Pending Review Auto-Generat ed Referral 03/04/2024 03/04/2025 1 1 [facility] Consultation (Routine) - Pending Review Specialty Diagnoses / Procedures Referred By Contac t Referred To Contact Neurosurgery Diagnoses 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) (HCC) Anthony Mars MD [address] [place] [address] [facility] [address] [place] [address] Referral ID Status Reason Start Date Expiration Date Visits Requested Visits Authorized [id number] Pending Review Specialty Services Required 11/11/2022 11/11/2023 1 1 [facility] for referral (narrative)No reason for referral information availableWUniversity Hospitals [facility] Work Phone: Reason for visit Narrative* Diagnostic Procedure Only (Routine) - Closed Specialty Diagnoses / Procedures Referred By Contac t Referred To Contact US IMAGING Diagnoses Multiple thyroid nodules Procedures US THYROID/PARATHYROID US SOFT TISSUE HEAD & NECK REAL TIME IMGE Anthony Joy MD [facility] [place] [address] Us Imaging Referral ID Status Reason Start Date Expiration Date V isits Requested Visits Authorized [id number] Closed Auto-Generate d Referral 11/01/2021 12/01/2022 1 1 [facility] Outpatient Procedure (Routine) - Closed Specialty Diagnoses / Procedures Referred By Contac t Referred To Contact Diagnoses Dysphagia, unspecified type Abnormal barium swallow Procedures EGD DIAGNOSTIC EGD DIAGNOSTIC ESOPHAGOGASTRODUODENOSCOPY TRANSORAL DIAGNOSTIC Arely Hercules PA-C [address] [place] [address] [address] Referral ID Status Reason Start Date Expiration Date V isits Requested Visits Authorized [id number] Closed Auto-Generate d Referral 11/14/2023 02/12/2024 1 1 [facility] History of Past Illness Problem Noted [...] Present Illness * Danny De La Cruz (Collision Repair Technician.Braid Folder) - 04/30/2020 2:34 PM EDT [facility] PROGRESS NOTE PATIENT: Pily Barnes MRD: [id number] DATE: April 30, 2020 IDENTIFYING INFORMATION: Pily [...] shower. She is getting counseling from the [employer] [place], They come into the home. 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 Ms. Barnes was initially evaluated while hospitalized at [facility]. She was admitted after a ground levelfall in a parking lot. She reported dizziness with attempts at ambulation. CT brain imaging demonstrated small hyperdensity at the septum pellucidum and small volume IVH. CTA head / neck did not demonstrate vascular abnormalities. She had no neuro deficits. She was discharged to [facility] on 06/17/2020 and was asked to follow up with repeat head CT in 2 weeks. Today, she feels well. Denies headache. She remains at [place] and is working with PT, OT. She [...] 5/5 throughout all four extremities. Coordination Right: Kqhtdx-[id number] normal. Left: Ebamfz-lr-umub normal. Gait Gait is with wheeled walker. [...] MD This note was partially generated using [employer] voice recognition system, and there may be [...] FoundDocuments on File Type Date Recorded Patient Hat Liner Expl anation Advance Directive(s) 09/20/2017 5:23 PM [...] Documents on File Type Date Recorded Patient Hat Liner Expl anation Advance Directive(s) 09/20/2017 5:23 PM [...] Documents on File Type Date Recorded Patient Hat Liner Expl anation Advance Directive(s) 09/20/2017 5:23 PM [...] Documents on File Type Date Recorded Patient Hat Liner Expl anation Advance Directive(s) 09/20/2017 5:23 PM [...] Documents on File Type Date Recorded Patient Hat Liner Expl anation Advance Directive(s) 09/20/2017 5:23 PM [...] Documents on File Type Date Recorded Patient Hat Liner Expl anation Advance Directive(s) 07/28/2020 7:03 AM [...] Documents on File Type Date Recorded Patient Hat Liner Expl anation Advance Directive(s) 09/20/2017 5:23 PM [...] Documents on File Type Date Recorded Patient Hat Liner Expl anation Advance Directive(s) 11/15/2021 8:23 PM [...] Documents on File Type Date Recorded Patient Hat Liner Expl anation Advance Directive(s) 11/15/2021 8:23 PM [...] Documents on File Type Date Recorded Patient Hat Liner Expl anation Advance Directive(s) 02/28/2022 2:14 PM [...] Documents on File Type Date Recorded Patient Hat Liner Expl anation Advance Directive(s) 11/16/2017 4:41 PM ad v dir on file Latest Code Status on File Code Status Date Activated Date Inactivated Comments Full Code 03/02/2023 3:44 PM 03/10/2023 4:12 PM Latest Code Status on File Code Status Date Activated Date Inactivated Comments Full Code 03/02/2023 3:44 PM 03/10/2023 4:12 PM Documents on File Type Date Recorded Patient Hat Liner Expl anation Advance Directive(s) 11/16/2017 4:41 PM ad v dir on file Date Activated Date Inactivated Comments 06/07/2020 8:54 PM 06/07/2020 8:55 PM Question Answer Comments DNR Order Discussed With: Patient Date Activated Date Inactivated Comments 06/07/2020 8:54 PM 06/07/2020 8:55 PM Question Answer Comments DNR Order Discussed With: Patient Documents on File Type Date Recorded Patient Hat Liner Expl anation DNR (Do Not Resuscitate) 04/23/2025 1:34 PM [place] DNR Form Date Activated Date Inactivated Comments 04/20/2025 12:58 AM 04/23/2025 5:19 PM Question Answer Comments ICU transfer: Yes Intubation: No Date Activated Date Inactivated Comments 04/20/2025 12:26 AM 04/20/2025 12:58 AM Date Activated Date Inactivated Comments 03/02/2023 3:44 PM 03/10/2023 4:12 PM Documents on File Type Date Recorded Patient Hat Liner Expl anation DNR (Do Not Resuscitate) 04/24/2025 11:33 AM DNR (Do Not Resuscitate) 04/23/2025 1:34 PM [place] DNR Form Date Activated Date Inactivated Comments [...] HEAD/BRAIN Cheryl Zabala (Pa), PA [address] [place] [address] Ct Imaging Status Reason Specialty Diagnoses / Procedures Referred By Contact Referred To Contact Closed Auto-Generated Referral CT IMAGING Diagnoses Intracranial hemorrhage (HCC) Procedures CT BRAIN WO IVCON CT SCAN HEAD/BRAIN Cheryl Zabala (Pa), PA [address] [place] [address] Ct Imaging Specialty Diagnoses / Procedures Referred By Contac t Referred To Contact Neurology Diagnoses Bipolar 1 disorder, depressed, moderate (HCC) Procedures CONSULT TO NEUROLOGY OFFICE/OUTPATIENT [facility] 60-74 MINUTES Danny De La Cruz, GENERAL ADMINISTRATOR.BOOKING OFFICER [address] [address] Referral ID Status Reason Start Date Expiration Date Visits Requested Visits Authorized [id number] Authorized PCP Requested Referral 02/15/2022 02/15/2023 1 1 Specialty Diagnoses / Procedures Referred By Contac t Referred To Contact Radiology Diagnoses 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) Procedures CT cervical spine wo IV contrast Cee Biggs, GENERAL ADMINISTRATOR - BOOKING OFFICER [address] [place] [address] Referral ID Status Reason Start Date Expiration Date V isits Requested Visits Authorized [id number] Pending Review 12/07/2022 06/05/2023 1 1 Specialty Diagnoses / Procedures Referred By Contac t Referred To Contact Radiology Diagnoses Hand numbness Dizziness Procedures MR cervical spine wo contrast Cee Lobo [address] [place] [address] Referral ID Status Reason Start Date Expiration Date Visits Re quested Visits Authorized [id number] Closed 10/11/2022 04/09/2023 1 1 Specialty Diagnoses / Procedures Referred By Contac t Referred To Contact Radiology Diagnoses 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) Procedures CT cervical spine wo IV contrast Cee Biggs, GENERAL ADMINISTRATOR - BOOKING OFFICER [address] [place] [address] [facility] [address] [facility] [place] [address] Referral ID Status Reason Start Date Expiration Date Visits Re quested Visits Authorized [id number] Closed 12/07/2022 06/05/2023 1 1 Specialty Diagnoses / Procedures Referred By Contac t Referred To Contact Jorge Portillo, GENERAL ADMINISTRATOR - BOOKING OFFICER [address] [place] [address] Referral ID Status Reason Start Date Expiration Date V isits Requested Visits Authorized [id number] Pending Review 1 1 Specialty Diagnoses / Procedures Referred By Contac t Referred To Contact CT IMAGING Diagnoses Aneurysm of ascending aorta without rupture (HCC) Diverticulitis Primary hypertension Disorder of artery or arteriole (HCC) Procedures CTA CHEST (GATED) W IVCON CT ANGIOGRAPHY CHEST W/CONTRAST/NONCONTRAST Michell Mathis MD [address] [place] [address] [place] [address] Referral ID Status Reason Start Date Expiration Date Visits Requested Visits Authorized [id number] Authorized Auto-Generat ed Referral 02/23/2024 03/24/2025 1 1 Specialty Diagnoses / Procedures Referred By Contac t Referred To Contact [facility] Diagnoses Aneurysm of ascending aorta without rupture (HCC) Diverticulitis Primary hypertension Disorder of artery or arteriole (HCC) Procedures ECHO ECHO TTHRC R-T 2D W/WOM-MODE COMPL SPEC&COLR D Michell Mathis MD [address] [place] [id number] [place] [id number] Referral ID Status Reason Start Date Expiration Date Visits Requested Visits Authorized [id number] Authorized Auto-Generat ed Referral 02/23/2024 02/22/2025 1 1 Specialty Diagnoses / Procedures Referred By Contac t Referred To Contact [facility] Diagnoses Aneurysm of ascending aorta without rupture (HCC) Diverticulitis Primary hypertension Disorder of artery or arteriole (HCC) Procedures ECG COMPLETE ECG ROUTINE ECG W/LEAST 12 LDS W/I&R Michell Mathis MD [address] [place] [address] [place] [id number] Referral ID Status Reason Start Date Expiration Date Visits Requested Visits Authorized [id number] Authorized Auto-Generat ed Referral 02/23/2024 02/22/2025 1 1 Specialty Diagnoses / Procedures Referred By Contac t Referred To Contact Cardiac Surg Diagnoses Aneurysm of ascending aorta without rupture (HCC) Diverticulitis Primary hypertension Disorder of artery or arteriole (HCC) Procedures CARDIOTHORACIC PREOP EVALUATION OFFICE/OUTPATIENT [facility] 60 MINUTES Michell Mathis MD [address] [place] [phone] Referral ID Status Reason Start Date Expiration Date Visits Requested Visits Authorized [id number] Authorized PCP Requested Referral 02/23/2024 02/22/2025 1 1 Specialty Diagnoses / Procedures Referred By Contac t Referred To Contact Cardiology Diagnoses Aneurysm of ascending aorta without rupture (HCC) Diverticulitis Primary hypertension Disorder of artery or arteriole (HCC) Procedures CONSULT TO CARDIOLOGY OFFICE/OUTPATIENT [facility] MDM 60 MINUTES Michell Mathis MD [address] [place] [address] Referral ID Status Reason Start Date Expiration Date Visits Requested Visits Authorized [id number] Authorized PCP Requested Referral 02/23/2024 02/22/2025 1 1 Specialty Diagnoses / Procedures Referred By Contac t Referred To Contact CT IMAGING Diagnoses Disorder of artery or arteriole (HCC) Procedures CTA CHEST (GATED) W IVCON CT ANGIOGRAPHY CHEST W/CONTRAST/NONCONTRAST Jorge Zelaya MD [address] [place] [address] Ct Imaging [place] [address] Referral ID Status Reason Start Date Expiration Date Visits Requested Visits Authorized [id number] New Request Auto-Generat ed Referral 03/21/2024 04/20/2025 1 1 Specialty Diagnoses / Procedures Referred By Contac t Referred To Contact [facility] Diagnoses Dilatation of thoracic aorta (HCC) Preop cardiovascular exam Primary hypertension Coronary artery calcification Dyslipidemia Chronic kidney disease, unspecified CKD stage Aneurysm of ascending aorta without rupture (HCC) Diverticulitis Disorder of artery or arteriole (HCC) Dyspnea, unspecified type Procedures ECG COMPLETE ECG ROUTINE ECG W/LEAST 12 LDS W/I&R Jorge Zelaya MD [address] [place] [address] [address] Referral ID Status Reason Start Date Expiration Date Visits Requested Visits Authorized [id number] New Request Auto-Generat ed Referral 03/21/2024 03/21/2025 1 1 Specialty Diagnoses / Procedures Referred By Contac t Referred To Contact [facility] Procedures CARDIOVASCULAR MEDICINE OP FOLLOW UP APPT ORDER Jorge Zelaya MD [address] [place] [address] [address] Referral ID Status Reason Start Date Expiration Date Visits Requested Visits Authorized [id number] Ref Not Required PCP Requested Referral 12/21/2024 [...] CONSULT TO MEDICAL GENETICS - CARDIOVASCULAR OFFICE/OUTPATIENT [facility] 60 MINUTES MEDICAL GENETICS COUNSELING EACH 30 MINUTES Jorge Zelaya MD [address] [place] [phone] [facility] [address] [place] [address] Referral ID Status Reason Start Date Expiration Date Visits Requested Visits Authorized [id number] Pending Review PCP Requested Referral Auto-Generate d Referral 03/21/2024 03/21/2025 1 1 Specialty Diagnoses / Procedures Referred By Consuelo slater Referred To Contact CT IMAGING Diagnoses Aneurysm of ascending aorta without rupture (HCC) Disorder of artery or arteriole (HCC) Procedures CTA CHEST (GATED) W IVCON CT ANGIOGRAPHY CHEST W/CONTRAST/NONCONTRAST Michell Mathis MD [address] [place] [address] Ct Imaging [place] [address] Referral ID Status Reason Start Date Expiration Date Visits Requested Visits Authorized [id number] New Request Auto-Generat ed Referral 04/03/2024 05/03/2025 1 1 Specialty Diagnoses / Procedures Referred By Consuelo slater Referred To Contact Cardiac Surg Diagnoses Aneurysm of ascending aorta without rupture (HCC) Disorder of artery or arteriole (HCC) Procedures CARDIOTHORACIC PREOP EVALUATION OFFICE/OUTPATIENT [facility] 60 MINUTES Michell Mathis MD [address] [place] [phone] Referral ID Status Reason Start Date Expiration Date Visits Requested Visits Authorized [id number] Authorized PCP Requested Referral 04/03/2024 04/03/2025 1 [...] or prosecute any alcohol or drug abuse patient.[facility] the event this information is protected by the Federal Confidentiality of Alcohol and Drug Abuse Patient Records regulations: The Federal rules restrict any use of the information to criminally investigate or prosecute any alcohol or drug abuse patient.[facility] the event this information is protected by the Federal Confidentiality of Alcohol and Drug Abuse Patient Records regulations: The Federal rules restrict any use of the information to criminally investigate or prosecute any alcohol or drug abuse patient.[facility] Hospital[facility] the event this information is protected by the Federal Confidentiality of Alcohol and Drug Abuse Patient Records regulations: The Federal rules restrict any use of the information to criminally investigate or prosecute any alcohol or drug abuse patient.[facility] the event this information is protected by the Federal Confidentiality of Alcohol and Drug Abuse Patient Records regulations: The Federal rules restrict any use of the information to criminally investigate or prosecute any alcohol or drug abuse patient.[facility] Hospital[facility] the event this information is protected by the Federal Confidentiality of Alcohol and Drug Abuse Patient Records regulations: The Federal rules restrict any use of the information to criminally investigate or prosecute any alcohol or drug abuse patient.[facility] the event this information is protected by the Federal Confidentiality of Alcohol and Drug Abuse Patient Records regulations: The Federal rules restrict any use of the information to criminally investigate or prosecute any alcohol or drug abuse patient.[facility] the event this information is protected by the Federal Confidentiality of Alcohol and Drug Abuse Patient Records regulations: The Federal rules restrict any use of the information to criminally investigate or prosecute any alcohol or drug abuse patient.[facility] Hospital[facility] the event this information is protected by the Federal Confidentiality of Alcohol and Drug Abuse Patient Records regulations: The Federal rules restrict any use of the information to criminally investigate or prosecute any alcohol or drug abuse patient.[facility] HospitalIn the event this information is protected by the Federal Confidentiality of Alcohol and Drug Abuse Patient Records regulations: The Federal rules restrict any use of the information to criminally investigate or prosecute any alcohol or drug abuse patient.[facility] HospitalIn the event this information is protected by the Federal Confidentiality of Alcohol and Drug Abuse Patient Records regulations: The Federal rules restrict any use of the information to criminally investigate or prosecute any alcohol or drug abuse patient.[facility] HospitalIn the event this information is protected by the Federal Confidentiality of Alcohol and Drug Abuse Patient Records regulations: The Federal rules restrict any use of the information to criminally investigate or prosecute any alcohol or drug abuse patient.[facility] HospitalIn the event this information is protected by the Federal Confidentiality of Alcohol and Drug Abuse Patient Records regulations: The Federal rules restrict any use of the information to criminally investigate or prosecute any alcohol or drug abuse patient.[facility] HospitalIn the event this information is protected by the Federal Confidentiality of Alcohol and Drug Abuse Patient Records regulations: The Federal rules restrict any use of the information to criminally investigate or prosecute any alcohol or drug abuse patient.[facility] HospitalIn the event this information is protected by the Federal Confidentiality of Alcohol and Drug Abuse Patient Records regulations: The Federal rules restrict any use of the information to criminally investigate or prosecute any alcohol or drug abuse patient.[facility] HospitalIn the event this information is protected by the Federal Confidentiality of Alcohol and Drug Abuse Patient Records regulations: The Federal rules restrict any use of the information to criminally investigate or prosecute any alcohol or drug abuse patient.[facility] HospitalIn the event this information is protected by the Federal Confidentiality of Alcohol and Drug Abuse Patient Records regulations: The Federal rules restrict any use of the information to criminally investigate or prosecute any alcohol or drug abuse patient.[facility] HospitalIn the event this information is protected by the Federal Confidentiality of Alcohol and Drug Abuse Patient Records regulations: The Federal rules restrict any use of the information to criminally investigate or prosecute any alcohol or drug abuse patient.[facility] HospitalIn the event this information is protected by the Federal Confidentiality of Alcohol and Drug Abuse Patient Records regulations: The Federal rules restrict any use of the information to criminally investigate or prosecute any alcohol or drug abuse patient.[facility] HospitalIn the event this information is protected by the Federal Confidentiality of Alcohol and Drug Abuse Patient Records regulations: The Federal rules restrict any use of the information to criminally investigate or prosecute any alcohol or drug abuse patient.[facility] HospitalIn the event this information is protected by the Federal Confidentiality of Alcohol and Drug Abuse Patient Records regulations: The Federal rules restrict any use of the information to criminally investigate or prosecute any alcohol or drug abuse patient.[facility] HospitalIn the event this information is protected by the Federal Confidentiality of Alcohol and Drug Abuse Patient Records regulations: The Federal rules restrict any use of the information to criminally investigate or prosecute any alcohol or drug abuse patient.[facility] HospitalIn the event this information is protected by the Federal Confidentiality of Alcohol and Drug Abuse Patient Records regulations: The Federal rules restrict any use of the information to criminally investigate or prosecute any alcohol or drug abuse patient.[facility] HospitalIn the event this information is protected by the Federal Confidentiality of Alcohol and Drug Abuse Patient Records regulations: The Federal rules restrict any use of the information to criminally investigate or prosecute any alcohol or drug abuse patient.[facility] HospitalIn the event this information is protected by the Federal Confidentiality of Alcohol and Drug Abuse Patient Records regulations: The Federal rules restrict any use of the information to criminally investigate or prosecute any alcohol or drug abuse patient.[facility] HospitalIn the event this information is protected by the Federal Confidentiality of Alcohol and Drug Abuse Patient Records regulations: The Federal rules restrict any use of the information to criminally investigate or prosecute any alcohol or drug abuse patient.[facility] HospitalIn the event this information is protected by the Federal Confidentiality of Alcohol and Drug Abuse Patient Records regulations: The Federal rules restrict any use of the information to criminally investigate or prosecute any alcohol or drug abuse patient.[facility] HospitalIn the event this information is protected by the Federal Confidentiality of Alcohol and Drug Abuse Patient Records regulations: The Federal rules restrict any use of the information to criminally investigate or prosecute any alcohol or drug abuse patient.[facility] HospitalIn the event this information is protected by the Federal Confidentiality of Alcohol and Drug Abuse Patient Records regulations: The Federal rules restrict any use of the information to criminally investigate or prosecute any alcohol or drug abuse patient.[facility] HospitalIn the event this information is protected by the Federal Confidentiality of Alcohol and Drug Abuse Patient Records regulations: The Federal rules restrict any use of the information to criminally investigate or prosecute any alcohol or drug abuse patient.[facility] HospitalIn the event this information is protected by the Federal Confidentiality of Alcohol and Drug Abuse Patient Records regulations: The Federal rules restrict any use of the information to criminally investigate or prosecute any alcohol or drug abuse patient.[facility] HospitalIn the event this information is protected by the Federal Confidentiality of Alcohol and Drug Abuse Patient Records regulations: The Federal rules restrict any use of the information to criminally investigate or prosecute any alcohol or drug abuse patient.[facility] HospitalIn the event this information is protected by the Federal Confidentiality of Alcohol and Drug Abuse Patient Records regulations: The Federal rules restrict any use of the information to criminally investigate or prosecute any alcohol or drug abuse patient.[facility] HospitalIn the event this information is protected by the Federal Confidentiality of Alcohol and Drug Abuse Patient Records regulations: The Federal rules restrict any use of the information to criminally investigate or prosecute any alcohol or drug abuse patient.[facility] HospitalIn the event this information is protected by the Federal Confidentiality of Alcohol and Drug Abuse Patient Records regulations: The Federal rules restrict any use of the information to criminally investigate or prosecute any alcohol or drug abuse patient.[facility] HospitalIn the event this information is protected by the Federal Confidentiality of Alcohol and Drug Abuse Patient Records regulations: The Federal rules restrict any use of the information to criminally investigate or prosecute any alcohol or drug abuse patient.[facility] HospitalIn the event this information is protected by the Federal Confidentiality of Alcohol and Drug Abuse Patient Records regulations: The Federal rules restrict any use of the information to criminally investigate or prosecute any alcohol or drug abuse patient.[facility] HospitalIn the event this information is protected by the Federal Confidentiality of Alcohol and Drug Abuse Patient Records regulations: The Federal rules restrict any use of the information to criminally investigate or prosecute any alcohol or drug abuse patient.[facility] HospitalIn the event this information is protected by the Federal Confidentiality of Alcohol and Drug Abuse Patient Records regulations: The Federal rules restrict any use of the information to criminally investigate or prosecute any alcohol or drug abuse patient.[facility] HospitalIn the event this information is protected by the Federal Confidentiality of Alcohol and Drug Abuse Patient Records regulations: The Federal rules restrict any use of the information to criminally investigate or prosecute any alcohol or drug abuse patient.[facility] HospitalIn the event this information is protected by the Federal Confidentiality of Alcohol and Drug Abuse Patient Records regulations: The Federal rules restrict any use of the information to criminally investigate or prosecute any alcohol or drug abuse patient.[facility] HospitalIn the event this information is protected by the Federal Confidentiality of Alcohol and Drug Abuse Patient Records regulations: The Federal rules restrict any use of the information to criminally investigate or prosecute any alcohol or drug abuse patient.[facility] HospitalIn the event this information is protected by the Federal Confidentiality of Alcohol and Drug Abuse Patient Records regulations: The Federal rules restrict any use of the information to criminally investigate or prosecute any alcohol or drug abuse patient.[facility] HospitalIn the event this information is protected by the Federal Confidentiality of Alcohol and Drug Abuse Patient Records regulations: The Federal rules restrict any use of the information to criminally investigate or prosecute any alcohol or drug abuse patient.[facility] HospitalIn the event this information is protected by the Federal Confidentiality of Alcohol and Drug Abuse Patient Records regulations: The Federal rules restrict any use of the information to criminally investigate or prosecute any alcohol or drug abuse patient.[facility] HospitalIn the event this information is protected by the Federal Confidentiality of Alcohol and Drug Abuse Patient Records regulations: The Federal rules restrict any use of the information to criminally investigate or prosecute any alcohol or drug abuse patient.[facility] HospitalIn the event this information is protected by the Federal Confidentiality of Alcohol and Drug Abuse Patient Records regulations: The Federal rules restrict any use of the information to criminally investigate or prosecute any alcohol or drug abuse patient.[facility] HospitalIn the event this information is protected by the Federal Confidentiality of Alcohol and Drug Abuse Patient Records regulations: The Federal rules restrict any use of the information to criminally investigate or prosecute any alcohol or drug abuse patient.[facility] HospitalIn the event this information is protected by the Federal Confidentiality of Alcohol and Drug Abuse Patient Records regulations: The Federal rules restrict any use of the information to criminally investigate or prosecute any alcohol or drug abuse patient.[facility] HospitalIn the event this information is protected by the Federal Confidentiality of Alcohol and Drug Abuse Patient Records regulations: The Federal rules restrict any use of the information to criminally investigate or prosecute any alcohol or drug abuse patient.[facility] HospitalIn the event this information is protected by the Federal Confidentiality of Alcohol and Drug Abuse Patient Records regulations: The Federal rules restrict any use of the information to criminally investigate or prosecute any alcohol or drug abuse patient.[facility] HospitalIn the event this information is protected by the Federal Confidentiality of Alcohol and Drug Abuse Patient Records regulations: The Federal rules restrict any use of the information to criminally investigate or prosecute any alcohol or drug abuse patient.[facility] HospitalIn the event this information is protected by the Federal Confidentiality of Alcohol and Drug Abuse Patient Records regulations: The Federal rules restrict any use of the information to criminally investigate or prosecute any alcohol or drug abuse patient.[facility] HospitalIn the event this information is protected by the Federal Confidentiality of Alcohol and Drug Abuse Patient Records regulations: The Federal rules restrict any use of the information to criminally investigate or prosecute any alcohol or drug abuse patient.[facility] HospitalIn the event this information is protected by the Federal Confidentiality of Alcohol and Drug Abuse Patient Records regulations: The Federal rules restrict any use of the information to criminally investigate or prosecute any alcohol or drug abuse patient.[facility] HospitalIn the event this information is protected by the Federal Confidentiality of Alcohol and Drug Abuse Patient Records regulations: The Federal rules restrict any use of the information to criminally investigate or prosecute any alcohol or drug abuse patient.[facility] HospitalIn the event this information is protected by the Federal Confidentiality of Alcohol and Drug Abuse Patient Records regulations: The Federal rules restrict any use of the information to criminally investigate or prosecute any alcohol or drug abuse patient.[facility] HospitalIn the event this information is protected by the Federal Confidentiality of Alcohol and Drug Abuse Patient Records regulations: The Federal rules restrict any use of the information to criminally investigate or prosecute any alcohol or drug abuse patient.[facility] HospitalIn the event this information is protected by the Federal Confidentiality of Alcohol and Drug Abuse Patient Records regulations: The Federal rules restrict any use of the information to criminally investigate or prosecute any alcohol or drug abuse patient.[facility] HospitalIn the event this information is protected by the Federal Confidentiality of Alcohol and Drug Abuse Patient Records regulations: The Federal rules restrict any use of the information to criminally investigate or prosecute any alcohol or drug abuse patient.[facility] HospitalIn the event this information is protected by the Federal Confidentiality of Alcohol and Drug Abuse Patient Records regulations: The Federal rules restrict any use of the information to criminally investigate or prosecute any alcohol or drug abuse patient.[facility] HospitalIn the event this information is protected by the Federal Confidentiality of Alcohol and Drug Abuse Patient Records regulations: The Federal rules restrict any use of the information to criminally investigate or prosecute any alcohol or drug abuse patient.[facility] HospitalIn the event this information is protected by the Federal Confidentiality of Alcohol and Drug Abuse Patient Records regulations: The Federal rules restrict any use of the information to criminally investigate or prosecute any alcohol or drug abuse patient.[facility] HospitalIn the event this information is protected by the Federal Confidentiality of Alcohol and Drug Abuse Patient Records regulations: The Federal rules restrict any use of the information to criminally investigate or prosecute any alcohol or drug abuse patient.[facility] HospitalIn the event this information is protected by the Federal Confidentiality of Alcohol and Drug Abuse Patient Records regulations: The Federal rules restrict any use of the information to criminally investigate or prosecute any alcohol or drug abuse patient.[facility] HospitalIn the event this information is protected by the Federal Confidentiality of Alcohol and Drug Abuse Patient Records regulations: The Federal rules restrict any use of the information to criminally investigate or prosecute any alcohol or drug abuse patient.[facility] Reason for Visit (unrecogniz ed section and content) Reason Comments Refill Request Reason Comments Follow Up Hospital discharge Status Reason Specialty Diagnoses / Procedures Referred By Contact Referred To Contact Closed Auto-Generated Referral CT IMAGING Diagnoses Intracranial hemorrhage (HCC) Procedures CT BRAIN WO IVCON CT SCAN HEAD/BRAIN Cheryl Zabala (Pa), PA [address] [facility] [place] [address] Ct Imaging Status Reason Specialty Diagnoses / Procedures Referred By Contact Referred To Contact Diagnoses Thyroid mass Procedures BX THYROID, LUIZ CUT BIOPSY THYROID [facility]iology [address] [place] [address] Reason Onset Date Comments Refill Request 08/04/2020 Reason Comments Results Status Reason Specialty Diagnoses / Procedures Referred By Contact Referred To Contact Closed CARD LAB [facility] Diagnoses r55 syncope i35.0 Procedures TTE W/DOPPLER, COMPLETE ECHO WITHOUT CONTRAST Kenia Jama [address] [place] [address] Card Lab [facility] [address] [place] [address] 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 Question from lab [...] Onset Date Comments Transition Of Care 03/18/2022 [place] 03/03-03/17/22 Transerred to [facility] Reason Comments Scheduling Reason Comments Anxiety Reason Onset Date Comments Population Health Navigation Outreach 05/26/2022 [facility]- Needs PCP Verified Reason Comments Psychiatric Problem Reason Comments New Patient CERVICAL SPINE Specialty Diagnoses / Procedures Referred By Consuelo t Referred To Contact Neurosurgery Diagnoses 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) Anthony Mars MD [address] [place] [address] [facility] [address] [place] [id number] Referral ID Status Reason Start Date Expiration Date V isits Requested Visits Authorized [id number] Closed Specialty Services Required 11/11/2022 11/11/2023 1 1 Specialty Diagnoses / Procedures Referred By Consuelo slater Referred To Contact Radiology Diagnoses 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) Procedures CT cervical spine wo IV contrast Cee Biggs, GENERAL ADMINISTRATOR - BOOKING OFFICER [address] [place] [address] [facility] [address] Imaging [address] [place] [address] Referral ID Status Reason Start Date Expiration Date Visits Re quested Visits Authorized [id number] Closed 12/07/2022 06/05/2023 1 1 Specialty Diagnoses / Procedures Referred By Consuelo t Referred To Contact Diagnoses Disease of spinal cord, unspecified (HCC) Disease of spinal cord, unspecified (HCC) [G95.9] Procedures VA ARTHRD ANT INTERBODY DECOMPRESS CERVICAL BELW C2 VA ARTHRD ANT INTERDY CERVCL BELW C2 EA ADDL NTRSPC VA ANTERIOR INSTRUMENTATION 4-7 VERTEBRAL SEGMENTS C3-C6 ANTERIOR CERVICAL DECOMPRESSION, FUSION Alonso Mcgill MD [address] [place] [address] [address] [place] [address] Referral ID Status Reason Start Date Expiration Date Visits Re quested Visits Authorized [id number] 1 1 Reason Comments Skin Problem Redness [...] arteriole (HCC) Procedures CARDIOTHORACIC PREOP EVALUATION OFFICE/OUTPATIENT [facility] 60 MINUTES Michell Mathis MD [address] [place] [id number] Referral ID Status Reason Start Date Expiration Date V isits Requested Visits Authorized [id number] Closed PCP Requested Referral 02/23/2024 02/22/2025 1 1 Reason Comments Consult TAA Pre-Op Exam Specialty Diagnoses / Procedures Referred By Contac t Referred To Contact Cardiology Diagnoses Aneurysm of ascending aorta without rupture (HCC) Diverticulitis Primary hypertension Disorder of artery or arteriole (HCC) Procedures CONSULT TO CARDIOLOGY OFFICE/OUTPATIENT [facility] 60 MINUTES Michell Mathis MD [address] [place] [phone] Referral ID Status Reason Start Date Expiration Date V isits Requested Visits Authorized [id number] Closed PCP Requested Referral 02/23/2024 02/22/2025 [address] Specialty Diagnoses / Procedures Referred By Contac t Referred To Contact CT IMAGING Diagnoses Aneurysm of ascending aorta without rupture (HCC) Diverticulitis Primary hypertension Disorder of artery or arteriole (HCC) Procedures CTA CHEST (GATED) W IVCON CT ANGIOGRAPHY CHEST W/CONTRAST/NONCONTRAST Michell Mathis MD [address] [place] [id number] Imaging [facility] Referral ID Status Reason Start Date Expiration Date Visits Requested Visits Authorized [id number] Authorized Auto-Generat ed Referral 02/23/2024 03/24/2025 1 1 Reason Comments Follow Up Reason Onset Date Comments Population Health Navigation Outreach 07/31/2024 [facility] Attributed Member - Chart Review Specialty Diagnoses / Procedures Referred By Consuelo t Referred To Contact Radiology Diagnoses Hand numbness Dizziness Procedures MR cervical spine wo contrast Cee Lobo [address] [place] [address] Referral ID Status Reason Start Date Expiration Date Visits Re quested Visits Authorized [id number] Closed 10/11/2022 04/09/2023 1 1 Reason Comments New Patient Extremity Weakness The patient states t hat she has been having issues with balance for 2-3 years. She has had falls. Specialty Diagnoses / Procedures Referred By Consuelo t Referred To Contact Cardiac Surg Diagnoses Aneurysm of ascending aorta without rupture (HCC) Disorder of artery or arteriole (HCC) Procedures CARDIOTHORACIC PREOP EVALUATION OFFICE/OUTPATIENT [facility]DM 60 MINUTES Michell Mathis MD [address] [place] [phone] Referral ID Status Reason Start Date Expiration Date V isits Requested Visits Authorized [id number] Closed PCP Requested Referral 04/03/2024 04/03/2025 1 1 Specialty Diagnoses / Procedures Referred By Consuelo slater Referred To Contact CT IMAGING Diagnoses Aneurysm of ascending aorta without rupture (HCC) Disorder of artery or arteriole (HCC) Procedures CTA CHEST (GATED) W IVCON CT ANGIOGRAPHY CHEST W/CONTRAST/NONCONTRAST Michell Mathis MD [address] [place] [id number] Imaging [facility] Referral ID Status Reason Start Date Expiration Date V isits Requested Visits Authorized [id number] Closed Auto-Generate d Referral 04/03/2024 05/03/2025 1 1 Reason Comments Hip Pain Right hip pain, + sh ortening after fall in bathroom Specialty Diagnoses / Procedures Referred By Contac t Referred To Contact Diagnoses Closed nondisplaced intertrochanteric fracture of right femur, initial encounter ([facility]) Closed displaced intertrochanteric fracture of right femur, initial encounter ([facility]) Procedures . Jacek Iniguez MD [address] [place] [address] Phone: tel: fax: [facility] Medical Surgical Unit [facility] [address] [place] [address] Phone: tel: Referral ID Status Reason Start [...] Visit date not found Patient Phone numbers: [phone] (home) Request is for script(s) to be escript to pharmacy. Marija Daniels documented in this encounter BRIEF OPERATIVE / PROCEDURE NOTE LOG ID: [id number] Surgery/Procedure Date: 07/28/2020 Incision/Procedure Start Time: Incision Close/Procedure End Time: Surgeon(s)/Proceduralist(s) and Fondant Cooker(s): Surgeon(s) and Role: * Romulo Thomas - [...] 28, 2020 TIME: 8:57 AM PAGER/CONTACT #: [phone] documented in this encounter Patient is scheduled for 09.08.2020 Patient called requesting the following refill. Pending Prescriptions Disp Refills CLONAZEPAM 0.5 MG TABLET 10 tablet 0 Sig: Take 0.5 tablets by mouth twice daily for 10 days. Please follow up with your primary care doctor for additional medication. KHADRA Class: C-IV DENNY: No Patient last appointment: Visit date not found Patient Phone numbers: [phone] (home) Request is for script(s) to be [...] Visit date not found Patient Phone numbers: [phone] (home) Request is for script(s) to be escript to pharmacy. 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 She has home health nurses and home health senior living. She is also getting physical therapy to [...] next appointment. Electronically signed by Danny Siddiqui (Collision Repair Technician.Braid FolderJohnathon De La Cruz at 07/14/2020 12:59 PM EST . Pily Barnes called today. : 1950 Allergies: Seasonal Allergies, Sulfa (Sulfonamide Antibiotics), and Sulfadiazine (home) [phone] (cell) Reason for call: Sanam for [facility] care teams called kenney Nascimento. She was inpatient at [facility] 10.3-10.14 and then moved to a rehab facility 10.14-10.. She is home now. She is using a walker, very unsteady on her feet. [facility] gave her a rx for Klonopin .5mg tablets that she was to cut in 1/2 and take twice daily. She is currently receiving in home therapy. If you have any questions please call Sanam at [phone] Patient last appointment: Visit date not found Pam Neil documented in this encounter INFORMATION SOURCE (unrecogn ized section and content) DATE CREATED AUTHOR 06/28/2021 Roxi Fox [employer] DATE CREATED AUTHOR 'S ORGANIZ ATION 09/19/2024 [facility] DATE CREATED AUTHOR AUTHOR'S ORGANIZ ATION 01/08/2025 [facility] DATE CREATED AUTHOR AUTHOR'S ORGANIZ ATION 05/24/2025 [facility] DATE CREATED AUTHOR AUTHOR'S ORGANIZ ATION 07/12/2025 [facility] Care Teams (unrecognized sec tion and content) Refrigerated Company Driver Relationship Specialty Start Date End Date Danny Laura MD [address] [place] [address] PCP - General Gerontology 01/21/21 Alyce Adler MD Endocrinology 12/29/20 Dr Martinez Psych/Mental Health 03/27/19 Refrigerated Company Driver Relationship Specialty Start Date End Date Danny Laura MD [address] [place] [address] PCP - General Gerontology 01/21/21 Alyce Adler MD Endocrinology 12/29/20 Dr Martinez Psych/Mental Health 03/27/19 Refrigerated Company Driver Relationship Specialty Start Date End Date Danny Laura MD [address] [place] [address] PCP - General Gerontology 01/21/21 Alyce Adler MD Endocrinology 12/29/20 Dr Martinez Psych/Mental Health 03/27/19 Refrigerated Company Driver Relationship Specialty Start Date End Date Danny Laura MD [address] [place] [address] PCP - General Gerontology 01/21/21 Alyce Adler MD Endocrinology 12/29/20 Dr Martinez Psych/Mental Health 03/27/19 Refrigerated Company Driver Relationship Specialty Start Date End Date Danny Laura MD [address] [place] [address] PCP - General Gerontology 01/21/21 Alyce Adler MD Endocrinology 12/29/20 Dr Martinez Psych/Mental Health 03/27/19 Refrigerated Company Driver Relationship Specialty Start Date End Date Danny Laura MD [address] [place] [address] PCP - General Gerontology 01/21/21 Alyce Adler MD Endocrinology 12/29/20 Dr Martinez Psych/Mental Health 03/27/19 Refrigerated Company Driver Relationship Specialty Start Date End Date Danny Laura MD [address] [place] [address] PCP - General Gerontology 01/21/21 Alyce Adler MD Endocrinology 12/29/20 Dr Martinez Psych/Mental Health 03/27/19 Refrigerated Company Driver Relationship Specialty Start Date End Date Danny Laura MD [address] [place] [address] PCP - General Gerontology 01/21/21 Alyce Adler MD Endocrinology 12/29/20 Dr Martinez Psych/Mental Health 03/27/19 Refrigerated Company Driver Relationship Specialty Start Date End Date Danny Laura MD [address] [place] [address] PCP - General Gerontology 01/21/21 Alyce Adler MD Endocrinology 12/29/20 Dr Martinez Psych/Mental Health 03/27/19 Refrigerated Company Driver Relationship Specialty Start Date End Date Danny Laura MD [address] [place] [address] PCP - General Gerontology 01/21/21 Alyce Adler MD Endocrinology 12/29/20 Dr Martinez Psych/Mental Health 03/27/19 Refrigerated Company Driver Relationship Specialty Start Date End Date Danny Laura MD [address] [place] [address] PCP - General Gerontology 01/21/21 Alyce Adler MD Endocrinology 12/29/20 Dr Martinez Psych/Mental Health 03/27/19 Refrigerated Company Driver Relationship Specialty Start Date End Date Danny Laura MD [address] [place] [address] PCP - General Gerontology 01/21/21 Alyce Adler MD Endocrinology 12/29/20 Danny De La Cruz, GENERAL ADMINISTRATOR.BOOKING OFFICER [address] [place] [address] Referring Psychiatry 02/19/22 Dr Martinez Psych/Mental Health 03/27/19 Refrigerated Company Driver Relationship Specialty Start Date End Date Danny Laura MD [address] [place] [address] PCP - General Gerontology 01/21/21 Alyce Adler MD Endocrinology 12/29/20 Danny De La Cruz, GENERAL ADMINISTRATOR.BOOKING OFFICER [address] [place] [address] Referring Psychiatry 02/19/22 Dr Martinez Psych/Mental Health 03/27/19 Refrigerated Company Driver Relationship Specialty Start Date End Date Danny Laura MD [address] [place], [place] [id number] PCP - General Gerontology 01/21/21 Alyce Adler MD Endocrinology 12/29/20 Danny De La Cruz, GENERAL ADMINISTRATOR.BOOKING OFFICER [address] [facility] [address] [place] [address] Referring Psychiatry 02/19/22 Dr Martinez Psych/Mental Health 03/27/19 Refrigerated Company Driver Relationship Specialty Start Date End Date Danny Laura MD [address] [place] [address] PCP - General Gerontology 01/21/21 Alyce Adler MD Endocrinology 12/29/20 Danny De La Cruz, GENERAL ADMINISTRATOR.BOOKING OFFICER [address] [place] [address] Referring Psychiatry 02/19/22 Dr Martinez Psych/Mental Health 03/27/19 Refrigerated Company Driver Relationship Specialty Start Date End Date Danny Laura MD [address] [place] [address] PCP - General Gerontology 01/21/21 Alyce Adler MD Endocrinology 12/29/20 Danny De La Cruz, GENERAL ADMINISTRATOR.BOOKING OFFICER [address] [place], [place] [address] Referring Psychiatry 02/19/22 Soco Barrera, diesel truck mechanicCracking Machine Operator 03/04/22 Dr Martinez Psych/Mental Health 03/27/19 Refrigerated Company Driver Relationship Specialty Start Date End Date Danny Laura MD [address] [facility], [place] [id number] PCP - General Gerontology 01/21/21 Alyce Adler MD Endocrinology 12/29/20 Danny De La Cruz, GENERAL ADMINISTRATOR.BOOKING OFFICER [address] [facility] [address] [place] [address] Referring Psychiatry 02/19/22 Soco Barrera, diesel truck mechanicCracking Machine Operator 03/04/22 Dr Martinez Psych/Mental Health 03/27/19 Refrigerated Company Driver Relationship Specialty Start Date End Date Danny Laura MD [address] [place] [address] PCP - General Gerontology 01/21/21 Alyce Adler MD Endocrinology 12/29/20 Danny De La Cruz, GENERAL ADMINISTRATOR.BOOKING OFFICER [address] [place] [address] Referring Psychiatry 02/19/22 Soco Barrera, diesel truck mechanicCracking Machine Operator 03/04/22 Dr Martinez Psych/Mental Health 03/27/19 Refrigerated Company Driver Relationship Specialty Start Date End Date Danny Laura MD [address] [place] [address] PCP - General Gerontology 01/21/21 Alyce Adler MD Endocrinology 12/29/20 Danny De La Cruz, GENERAL ADMINISTRATOR.BOOKING OFFICER [address] [place], [place] [address] Referring Psychiatry 02/19/22 Dr Martinez Psych/Mental Health 03/27/19 Refrigerated Company Driver Relationship Specialty Start Date End Date Danny Laura MD [address] [place], [place] [id number] PCP - General Gerontology 01/21/21 Alyce Adler MD Endocrinology 12/29/20 Danny De La Cruz, GENERAL ADMINISTRATOR.BOOKING OFFICER [address] [place] [address] Referring Psychiatry 02/19/22 Dr Martinez Psych/Mental Health 03/27/19 Refrigerated Company Driver Relationship Specialty Start Date End Date Danny Laura MD [address] [place] [address] PCP - General Gerontology 01/21/21 Alyce Adler MD Endocrinology 12/29/20 Danny De La Cruz, GENERAL ADMINISTRATOR.BOOKING OFFICER [address] [place], [place] [address] [phone] Referring Psychiatry 02/19/22 Dr Martinez Psych/Mental Health 03/27/19 Refrigerated Company Driver Relationship Specialty Start Date End Date Johnny Amaya [address] [place] [address] PCP - General Internal Medicine 05/27/22 Alyce Adler MD Endocrinology 12/29/20 Danny De La Cruz, GENERAL ADMINISTRATOR.BOOKING OFFICER [address] [facility] [address] [place], [place] [address] Referring Psychiatry 02/19/22 Dr Martinez Psych/Mental Health 03/27/19 Refrigerated Company Driver Relationship Specialty Start Date End Date Johnny Amaya [address] [place], [place] [id number] PCP - General Internal Medicine 05/27/22 Alyce Adler MD Endocrinology 12/29/20 Danny De La Cruz, GENERAL ADMINISTRATOR.BOOKING OFFICER [address] [facility] [address] [place], [place] [id number] Referring Psychiatry 02/19/22 Dr Martinez Psych/Mental Health 03/27/19 Refrigerated Company Driver Relationship Specialty Start Date End Date Kenia Mckenzie MD [address] [place] [phone] PCP - General 10/21/19 Refrigerated Company Driver Relationship Specialty Start Date End Date Kenia Mckenzie MD [address] [place] [place] [phone] PCP - General 10/21/19 Refrigerated Company Driver Relationship Specialty Start Date End Date Kenia Mckenzie MD [address] [place] [phone] PCP - General 10/21/19 Refrigerated Company Driver Relationship Specialty Start Date End Date Kenia Mckenzie MD [address] [place] [phone] PCP - General 10/21/19 Refrigerated Company Driver Relationship Specialty Start Date End Date Kenia Mckenzie MD [address] [place] [phone] PCP - General 10/21/19 Refrigerated Company Driver Relationship Specialty Start Date End Date Kenia Mckenzie MD [address] [place] [phone] PCP - General 10/21/19 Refrigerated Company Driver Relationship Specialty Start Date End Date Kenia Mckenzie MD [address] [place] [phone] PCP - General 10/21/19 Refrigerated Company Driver Relationship Specialty Start Date End Date Kenia Mckenzie MD [address] [place] [phone] PCP - General 10/21/19 Refrigerated Company Driver Relationship Specialty Start Date End Date Kenia Mckenzie MD [address] [place] [phone] PCP - General 10/21/19 Refrigerated Company Driver Relationship Specialty Start Date End Date Kenia Mckenzie MD [address] [place] [phone] PCP - General 10/21/19 Refrigerated Company Driver Relationship Specialty Start Date End Date Ashu Ricci [address] [address] [place], [place] [phone] PCP - General Pain Management 06/13/23 Alyce Adler MD Endocrinology 12/29/20 Danny De La Cruz APRN.BOOKING OFFICER [address] [place] [address] Referring Psychiatry 02/19/22 Dr Martinez Psych/Mental Health 03/27/19 Refrigerated Company Driver Relationship Specialty Start Date End Date KeiryJamie craini [address] [place] [address] PCP - General Pain Management 06/13/23 Alyce Adler MD Endocrinology 12/29/20 Danny De La Cruz, GENERAL ADMINISTRATOR.BOOKING OFFICER [address] [place] [address] Referring Psychiatry 02/19/22 Dr Martinez Psych/Mental Health 03/27/19 Refrigerated Company Driver Relationship Specialty Start Date End Date Keiry Ashu [address] [place] [place] [address] PCP - General Pain Management 06/13/23 Alyce Adler MD Endocrinology 12/29/20 Danny De La Cruz, GENERAL ADMINISTRATOR.BOOKING OFFICER [address] [place] [address] Referring Psychiatry 02/19/22 Dr Martinez Psych/Mental Health 03/27/19 Refrigerated Company Driver Relationship Specialty Start Date End Date Kenia Mckenzie MD [address] [place] [phone] PCP - General 10/21/19 Refrigerated Company Driver Relationship Specialty Start Date End Date Ashu Ricci CNP [address] [place] [address] PCP - General Pain Management 06/13/23 Alyce Adler MD Endocrinology 12/29/20 Danny De La Cruz, GENERAL ADMINISTRATOR.BOOKING OFFICER [address] [place] [address] Referring Psychiatry 02/19/22 Dr Martinez Psych/Mental Health 03/27/19 Refrigerated Company Driver Relationship Specialty Start Date End Date Ashu Ricci CNP [address] [place] [address] PCP - General Pain Management 06/13/23 Alyce Adler MD Endocrinology 12/29/20 Danny De La Cruz, GENERAL ADMINISTRATOR.BOOKING OFFICER [address] [place] [address] Referring Psychiatry 02/19/22 Michell Mathis MD [address] [facility] [place] [address] Surgeon Cardiac Surg 02/21/24 Unspecified, Cardiac Surgeon - [address] [place] [address] Surgeon Cardiac Surg 02/21/24 Dr Martinez Psych/Mental Health 03/27/19 Refrigerated Company Driver Relationship Specialty Start Date End Date Ashu Ricci CNP [address] [place] [address] PCP - General Pain Management 06/13/23 Alyce Adler MD Endocrinology 12/29/20 Danny De La Cruz, GENERAL ADMINISTRATOR.BOOKING OFFICER [address] [place] [address] Referring Psychiatry 02/19/22 Michell Mathis MD [address] [place] [address] Surgeon Cardiac Surg 02/21/24 Dr Martinez Psych/Mental Health 03/27/19 Refrigerated Company Driver Relationship Specialty Start Date End Date Ashu Ricci CNP [address] [place] [address] PCP - General Pain Management 06/13/23 Alyce Adler MD Endocrinology 12/29/20 Danny De La Cruz, GENERAL ADMINISTRATOR.BOOKING OFFICER [address] [place] [address] Referring Psychiatry 02/19/22 Michell Mathis MD [address] [place] [address] Surgeon Cardiac Surg 02/21/24 Dr Martinez Psych/Mental Health 03/27/19 Refrigerated Company Driver Relationship Specialty Start Date End Date Ashu Ricci CNP [address] [place] [address] PCP - General Pain Management 06/13/23 Alyce Adler MD Endocrinology 12/29/20 Danny De La Cruz, GENERAL ADMINISTRATOR.BOOKING OFFICER [address] [place] [address] Referring Psychiatry 02/19/22 Michell Mathis MD [address] [place] [address] Surgeon Cardiac Surg 02/21/24 Jorge Zelaya MD [address] [place] [address] Primary Staff Physician Cardiology 03/21/24 Dr Martinez Psych/Mental Health 03/27/19 Refrigerated Company Driver Relationship Specialty Start Date End Date Ashu Ricci CNP [address] [place] [address] PCP - General Pain Management 06/13/23 Alyce Adler MD Endocrinology 12/29/20 Danny De La Cruz, GENERAL ADMINISTRATOR.BOOKING OFFICER [address] [place] [address] Referring Psychiatry 02/19/22 Michell Mathis MD [address] [place] [address] Surgeon Cardiac Surg 02/21/24 Jorge Zelaya MD [address] [place] [address] Primary Staff Physician Cardiology 03/21/24 Dr Martinez Psych/Mental Health 03/27/19 Refrigerated Company Driver Relationship Specialty Start Date End Date Ashu Ricci CNP [address] [place] [address] PCP - General Pain Management 06/13/23 Alyce Adler MD Endocrinology 12/29/20 Danny De La Cruz, GENERAL ADMINISTRATOR.BOOKING OFFICER [address] [place] [address] Referring Psychiatry 02/19/22 Michell Mathis MD [address] [place] [address] Surgeon Cardiac Surg 02/21/24 Jorge Zelaya MD [address] [place] [address] Primary Staff Physician Cardiology 03/21/24 Dr Martinez Psych/Mental Health 03/27/19 Refrigerated Company Driver Relationship Specialty Start Date End Date Ashu Ricci CNP [address] [place] [address] PCP - General Pain Management 06/13/23 Alyce Adler MD Endocrinology 12/29/20 Danny De La Cruz, GENERAL ADMINISTRATOR.BOOKING OFFICER [address] [place] [address] Referring Psychiatry 02/19/22 Michell Mathis MD [address] [place] [address] Surgeon Cardiac Surg 02/21/24 Jorge Zelaya MD [address] [place] [address] Primary Staff Physician Cardiology 03/21/24 Dr Martinez Psych/Mental Health 03/27/19 Refrigerated Company Driver Relationship Specialty Start Date End Date Ashu Ricci APRN.BOOKING OFFICER [address] [place], [place] [address] PCP - General Pain Management 06/13/23 Alyce Adler MD Endocrinology 12/29/20 Danny De La Cruz APRN.BOOKING OFFICER [address] [place] [address] Referring Psychiatry 02/19/22 Michell Mathis MD [address] [place] [address] Surgeon Cardiac Surg 02/21/24 Jorge Zelaya MD [address] [place] [address] Primary Staff Physician Cardiology 03/21/24 Kendy Arrington MD [address] [facility] [place], [place] [address] Pipe Organ Mechanic Apprentice Family Medicine 07/15/24 Sandra Gutierrez PA-C [address] [facility] [address] [place], [place] [phone] Pipe Organ Mechanic Apprentice Family Medicine 07/15/24 Dr Martinez Psych/Mental Health 03/27/19 Refrigerated Company Driver Relationship Specialty Start Date End Date Kenia Mckenzie MD [address] [place] [address] PCP - General 10/21/19 Refrigerated Company Driver Relationship Specialty Start Date End Date Kenia Mckenzie MD [address] [place] [address] PCP - General 10/21/19 Refrigerated Company Driver Relationship Specialty Start Date End Date Ashu Ricci, GENERAL ADMINISTRATOR.BOOKING OFFICER [address] [place], [place] [phone] PCP - General Pain Management 06/13/23 Alyce Adler MD Endocrinology 12/29/20 Danny De La Cruz APRN.BOOKING OFFICER [address] [facility] [address] [place], [place] [address] Referring Psychiatry 02/19/22 Michell Mathis MD [address] [place], [place] [address] Surgeon Cardiac Surg 02/21/24 Jorge Zelaya MD [address] [place], [place] [address] Primary Staff Physician Cardiology 03/21/24 Kendy Arrington MD [address] [facility] [place], [place] [address] Pipe Organ Mechanic Apprentice Family Medicine 07/15/24 Sandra Gutierrez PA-C [address] [facility] [address] [place], [place] [address] Pipe Organ Mechanic Apprentice Family Medicine 07/15/24 Dr Martinez Psych/Mental Health 03/27/19 Refrigerated Company Driver Relationship Specialty Start Date End Date Ashu Ricci, GENERAL ADMINISTRATOR.BOOKING OFFICER [address] [place], [place] [address] PCP - General Pain Management 06/13/23 Alyce Adler MD Endocrinology 12/29/20 Danny De La Cruz GENERAL ADMINISTRATOR.BOOKING OFFICER [address] [place], [place] [address] Referring Psychiatry 02/19/22 Michell Mathis MD [address] [place], [place] [address] Surgeon Cardiac Surg 02/21/24 Jorge Zelaya MD [address] [place] [address] Primary Staff Physician Cardiology 03/21/24 Kendy Arrington MD [address] [facility] [place], [place] [address] Pipe Organ Mechanic Apprentice Family Medicine 07/15/24 Sandra Gutierrez PA-C [address] [facility] [address] [place], [place] [address] Pipe Organ Mechanic Apprentice Family Medicine 07/15/24 Dr Martinez Psych/Mental Health 03/27/19 Refrigerated Company Driver Relationship Specialty Start Date End Date Ashu Ricci, GENERAL ADMINISTRATOR.BOOKING OFFICER [address] [place] [address] PCP - General Pain Management 06/13/23 Alyce Adler MD Endocrinology 12/29/20 Danny De La Cruz APRN.[facility] [address] [facility] [address] [place] [address] Referring Psychiatry 02/19/22 Michell Mathis MD [address] [place], [place] [address] Surgeon Cardiac Surg 02/21/24 Jorge Zelaya MD [address] [place], [place] [address] Primary Staff Physician Cardiology 03/21/24 Kendy Arrington MD [address] [facility] [place] [address] Pipe Organ Mechanic Apprentice Family Medicine 07/15/24 Sandra Gutierrez PA-C [address] [facility] [address] [place], [place] [phone] Pipe Organ Mechanic Apprentice Family Medicine 07/15/24 Dr Martinez Psych/Mental Health [...] Pathak, JOSELYN) 0900 (Given - Provider: Anni Krikpatrick RN)2055 (Given - Provider: Payton Ann RN) [...] hour PRN, moderate pain (4-6), Starting on Bfufy 03/02/23 at 1544, Phase II/On Unit
If [...] Transfer Provider - Reason: Patient not available)1628 ([facility] Unhold - Provider: Automatic Transfer Provider) 0830 (Given - Provider: Toshia Cespedes RN) 0804 (Given - Provider: Danny Encsio, JOSELYN) ceFAZolin (Ancef) 2,000 mg in sodium [...] from all sources in 24 hours. 1334 ([facility] Hold - Provider: Automatic Transfer Provider - Reason: Patient not available)1628 ([facility] Unhold - Provider: Automatic Transfer Provider) 0803 (See Alternative - Provider: Danny Enciso, JOSELYN) acetaminophen (Tylenol) tablet 650 mg(Linked Group 1) 650 mg, Oral, Every 6 hours PRN, mild pain (1-3), fever, For temp greater than 100.4 F (38 C), Starting on 04/20/25 at 0025, Maximum dose of acetaminophen is 4000 mg from all sources in 24 hours. 1334 ([facility] Hold - Provider: Automatic Transfer Provider - Reason: Patient not available)1628 ([facility] Unhold - Provider: Automatic Transfer Provider) 0803 (Given - Provider: Danny Enciso, JOSELYN) methocarbamol (Robaxin) tablet 750 mg 750 mg, Oral, Every 8 hours PRN, muscle spasms, Starting on 04/20/25 at 0141 0014 (Given - Provider: Chandni Ramos RN)1334 ([facility] Hold - Provider: Automatic Transfer Provider - Reason: Patient not available)1628 ([facility] Unhold - Provider: Automatic Transfer Provider) morphine [...] of each other unless specifically ordered. 1334 ([facility] Hold - Provider: Automatic Transfer Provider - Reason: Patient not available)1628 ([facility] Unhold - Provider: Automatic Transfer Provider) naloxone (Narcan) injection 0.4 mg 0.4 mg, IntraVENous, Every 5 min PRN, opioid reversal, respiratory depression, Starting on 04/19/25 at 2033, +++ For RR <10, pinpoint pupils, over sedation for opioid reversal - MUST notify cotton stripper provider immediately after first dose, may give IM or SQ if no IV access +++ 1334 ([facility] Hold - Provider: Automatic Transfer Provider - Reason: Patient not available)1628 ([facility] Unhold - Provider: Automatic Transfer Provider) ondansetron (Zofran) injection 4 mg 4 mg, IntraVENous, Every 4 hours PRN, nausea, vomiting, Starting on 04/20/25 at 0020 1334 ([facility] Hold - Provider: Automatic Transfer Provider - Reason: Patient not available)1628 ([facility] Unhold - Provider: Automatic Transfer Provider) 1013 (Given - Provider: Toshia Cespedes, RN) oxyCODONE (Roxicodone) immediate release tablet 5 mg 5 mg, Oral, Every 6 hours PRN, moderate pain (4-6), severe pain (7-10), Starting on 04/19/25 at 2032 0355 (Given - Provider: Chandni Ramos, RN)1334 ([facility] Hold - Provider: Automatic Transfer Provider - Reason: Patient not available)1628 ([facility] Unhold - Provider: Automatic Transfer Provider) 1011 (Given - Provider: Toshia Cespedes, RN)2203 (Given - Provider: Shyann Rosario, RN) 0803 (Given - Provider: Danny Enciso, JOSELYN) polyethylene glycol (PEG) 3350 (Miralax) packet 17 g 17 g, Oral, Daily PRN, constipation, Starting on 04/20/25 at 0025, 1st line for treatment of constipation - give scheduled if no bowel movement in past 24 hours. 1334 ([facility] Hold - Provider: Automatic Transfer Provider - Reason: Patient not available)1628 ([facility] Unhold - Provider: Automatic Transfer Provider) sodium [...] BE BASED ON THE PRIMARY CLINICAL RECORDS. [employer] provides no warranty or guarantee of the accuracy or completeness of information in this document.
[2025-08-18 09:03] LABS: Cholesterol 101 mg/dL (<=200); Low Density Lipoprotein Calc. 23 mg/dL; Triglycerides 60 mg/dL; Very Low Density Lipoprotein 12 mg/dL (5-40); cholesterol:hdl ratio screen 1.58
== END ==
LOC: OLS.SANC 05:00
PROVIDERS: Visit Provider Internal Medicine
DX: E78.5 Hyperlipidemia, unspecified (principal)
CPT/HCPCS: 36415; 80061